=== PATIENT | female | born 1955 | race Caucasian/White ===

== ENCOUNTER 2025-02-17 18:16 | Inpatient (IN) | payer MEDICARE, SELFPAY ==
[2025-02-17 18:17] VITALS: BP 145/69; PULSE 90; RESP 18; TEMP 39.3; O2SAT 100
[2025-02-17 18:31] VITALS: BMI 37.0
--- NOTE | 2025-02-17 18:35 | ED.VIS.FEGU ---
HPI HPI - Female History of Present Illness Chief Complaint: Back Informant: patient and family (Daughter who is a youth development specialist.) Narrative Narrative: 69-year-old female history of dementia and frequent UTIs. At the fever last 2 days with back and flank pain. No nausea or vomiting. No cough. No dysuria but urinary frequency. She has dementia but feet feel that she is more confused. Similar symptoms of prior UTIs. She does have chronic back pain with compression fractures and has had 2 prior back surgeries. She sees pain management. Prior similar symptoms: Yes Recent Illness/Hospitalization: No PFSH PFSH Home Medications ?Medication ?Instructions ?Recorded ?Last Taken ?Type atenolol 25 mg tablet 25 mg PO DAILY 07/07/17 07/17/17 History montelukast 10 mg tablet 10 mg PO DAILY 07/07/17 07/17/17 History atorvastatin 10 mg tablet 10 mg PO DAILY 07/15/17 07/17/17 History gabapentin 300 mg capsule 300 mg PO 4X/DAY 07/15/17 07/17/17 History fluticasone propionate 44 2 puff inhalation BID PRN Allergies 07/17/17 Unknown History mcg/actuation HFA aerosol inhaler (Flovent HFA) donepezil 10 mg tablet 10 mg PO DAILY 02/17/25 Unknown History lisinopril 40 mg tablet 40 mg PO DAILY 02/17/25 Unknown History meloxicam 7.5 mg tablet 7.5 mg PO DAILY 02/17/25 Unknown History Allergy/AdvReac Type Severity Reaction Status Date / Time Penicillins Allergy Anaphylaxis Verified 02/17/25 18:17 Social History Smoking Status: Current some day smoker tobacco type: cigarettes ROS ROS ED ROS Narrative Fever. Flank pain. Confused. Constitutional Constitutional ED: Reports fever(s) Eyes Eyes: Denies blurry vision ENT ENT ED: Denies ear pain Cardiovascular Cardiovascular: Denies chest pain Respiratory/Chest Respiratory/Chest: Denies cough Gastrointestinal Gastrointestinal: Denies abdominal pain, constipation, diarrhea, melena, nausea or vomiting Genitourinary Genitourinary ED: Reports urinary frequency; Denies dysuria or hematuria Musculoskeletal Musculoskeletal: Denies arthralgias or myalgias Integumentary Denies abscess Neurologic Neurologic: Denies headache(s) Psychiatric Psychiatric: Denies anxiety Endocrine Endocrinology: Denies heat intolerance Hematologic/Lymphatic Hematologic/Lymphatic: Denies easy bleeding, easy bruising or lymphadenopathy Allergic/Immunologic Allergic/Immunologic ED: Denies mouth swelling, tongue swelling or urticaria EXAM Physical Exam Narrative Exam Narrative: 69-year-old female sitting upright in bed. Vital signs are stable except temperature 102.8 orally. Pulse ox 100%. No distress. Currently does not look septic. Daughter present in room. H EENT exam pupils round react light. Dry mucous membranes. Neck nontender no JVD. No lymphadenopathy. No meningismus. Lungs clear to auscultation bilaterally. Heart regular rhythm rate about 90 no murmur. Chest wall and ribs nontender. Abdomen soft nontender. No peritoneal signs. Back nontender. No redness or warmth. Moving all 4 extremities. Nontender no edema. Normal strength. Normal range of motion. No hot or swollen joints. Neurologically she is awake. She is answering questions she is following commands. She does have dementia. Const Vital Signs: 02/17/25 18:17 02/17/25 20:00 Temperature 102.8 F H 101.4 F H Temperature Source Oral Oral Pulse Rate 90 80 Respiratory Rate 18 20 H Blood Pressure 145/69 H 160/68 H Blood Pressure Mean 94 98 Pulse Ox 100 100 Oxygen Delivery Method Room Air Room Air Positive well nourished and well developed; Negative for cachectic, contractures or unkempt General Appearance ED: well developed and NAD; Negative for unkempt, cachectic, contractures or pallor Nutritional Appearance: Negative for cachectic HEENT Reports dry mucous membranes Mouth ED: Yes dry mucous membranes Mouth: dry mucous membranes Eyes PERRL and EOMs intact bilaterally Neck no lymphadenopathy, supple and no JVD Chest Wall inspection of chest normal and palpation of chest normal Resp normal respiratory effort and clear to auscultation bilaterally Auscultation: Negative for rales, rhonchi, wheezes or diminished lung sounds Cardio regular rate, regular rhythm, S1 normal heart sound, no murmurs and no JVD GI normal to inspection, nondistended, normoactive bowel sounds, soft to palpation, non-tender, non-distended and no masses Auscultation: normoactive bowel sounds Palpation: Negative for tender or guarding Back/Spine no CVA tenderness Extremity normal to inspection and full ROM General Extremety ED: Negative for edema or tenderness General Extremity: Negative for edema Neuro No oriented x3 and CN's II-XII intact bilaterally Sensorium / Orientation: alert, oriented to person and oriented to place; Negative for oriented to time Motor Exam: strength 5/5 throughout Psych mental status grossly normal Appearance: Negative for unkempt Skin no rashes or lesions noted and no wounds General Skin Exam: Negative for jaundice or pallor Rashes: No rashes noted Trauma: Negative for other MDM MDM MDM Narrative Medical decision making narrative: 69-year-old female with a fever possible UTI versus other etiologies. Screening labs. IV fluids times a liter Tylenol for fever. Repeat exam at 8:25 PM patient doing well. Currently is being catheterized for urine. I explained to her and her daughter about her sodium being low she will be admitted for that. Her fever is gone from 102.8-101.4 after some Tylenol. Awaiting further labs. Repeat exam at 8:58 PM unchanged. Patient will be admitted for acute hyponatremia. Altered level consciousness and fever of uncertain etiology. Hospitalist is on page. Blood cultures have been sent. Patient knows the month and currently that she is in the hospital. I discussed the test results with both her and her daughter. I spoke to the hospitalist who would like a CT abdomen and pelvis and admit he will admit the patient to general medical floor. History & Record Review Discussion w/independent historian: Patient and Family Additional record(s) reviewed:: Prior inpatient record, Prior outpatient record, Prior ED visit and Prior labs Lab Data Attestation: I reviewed the patient's lab results. Lab results narrative: CBC shows white count 12.3. H&H 11.9 and 34. Platelets 162. Electrolytes show sodium 123. Gap 15. BUN and creatinine of 15 and 0.8. Glucose 89. UA shows occult blood. Positive ketones. No nitrates. UA is negative for infection. Lactic acid normal at 1.5 Labs: Laboratory Results - last 24 hr 02/17/25 02/17/25 02/17/25 18:33 20:10 20:23 WBC 12.3 H RBC 3.78 L Hgb 11.9 L Hct 34.4 L MCV 91.0 MCH 31.5 MCHC 34.6 RDW Std Deviation 45.9 H RDW Coeff of Lian 13.8 Plt Count 162 MPV 10.0 Immature Gran % (Auto) 0.600 Neut % (Auto) 84.3 H Lymph % (Auto) 8.4 L [place] % (Auto) 6.4 Eos % (Auto) 0.0 Baso % (Auto) 0.3 Absolute Neuts (auto) 10.4 H Absolute Lymphs (auto) 1.03 Nucleated RBC % 0 Sodium 123 L Potassium 4.5 Chloride 91 L Carbon Dioxide 17.3 L Anion Gap 15 BUN 15 Creatinine 0.86 Estim Creat Clear Calc 69.17 Est GFR (MDRD) Non-Af 73 BUN/Creatinine Ratio 17.3 Glucose 89 Lactic Acid 1.5 Calcium 8.4 Urine Color Yellow Urine Clarity Clear Urine pH 6.5 Ur Specific [place] 1.015 Urine Protein 100 H Urine Glucose (UA) Normal Urine Ketones 50 H Urine Occult Blood 50 H Urine Nitrite Negative Urine Bilirubin Negative Urine Urobilinogen Normal Ur Leukocyte Esterase 25 H Urine RBC 0 SEEN Urine WBC 0-5 SEEN Ur Squamous Epith Cells 0 SEEN Urine Bacteria RARE Urine Mucus 0 SEEN Radiography Chest X-Ray - ED: 2 View, Read by ED Physician, Heart, Lungs, Mediastinum, Bony Structures, No Acute Disease and Chronic Changes Diagnostic Testing: Clinical Impression(s) from Imaging Studies Chest X-Ray 02/17/25 20:35 IMPRESSION: No acute chest findings. Reading Location: [facility] Chest x-ray, 2 views, AP and lateral, interpreted by myself shows no acute abnormality. Normal cardiac silhouette. Normal lung hogan. No filtrates. No effusions. Discharge Plan Dx/Rx/DC Orders Clinical Impression: Acute hyponatremia, Fever, Altered level of consciousness, History of dementia Disposition Disposition: Acute Care [facility]
--- OUTSIDE RECORDS SUMMARY | 2025-02-17 18:55 | XMS RPT_ITS | CCD ---
Author Organization [facility] Care Team Providers Care Sports Manager Name Role Phone Talampas, Cee Unavailable Unavailable White, Nanci Unavailable Unavailable Slade Susan Unavailable Unavailable Paintsil, [place] Unavailable Unavailable Stefano Garcia Unavailable Unavailable Talampas, Cee Unavailable Unavailable Talampas, Cee Unavailable Unavailable Mendoza Kline Unavailable Unavailable Mendoza Kline Unavailable Unavailable Cee Christianson MD Primary Care Provider Cee Christianson MD Primary Care Provider Cee Christianson MD Primary Care Provider Cee Christianson MD Primary Care Provider Sneed JOURNEYMAN ELECTRICIAN PV INSTALLER.OFFENDER EMPLOYMENT SPECIALIST, Zakia Unavailable Sunitha JOURNEYMAN ELECTRICIAN PV INSTALLER.ADJUNCT PROFESSOR, Thuy Unavailable Sunitha JOURNEYMAN ELECTRICIAN PV INSTALLER.ADJUNCT PROFESSOR, Thuy Unavailable Sunitha JOURNEYMAN ELECTRICIAN PV INSTALLER.ADJUNCT PROFESSOR, Thuy Unavailable RUMA WESTFALL Referring Unavailable TALAMPAS, CEE D Primary Care Unavailable Sunitha JOURNEYMAN ELECTRICIAN PV INSTALLER.ADJUNCT PROFESSOR, Thuy Unavailable TALAMPAS, CEE D Referring Unavailable TALAMPAS, CEE D Primary Care Unavailable Talampas, Cee D Primary Care Provider Sneed JOURNEYMAN ELECTRICIAN PV INSTALLER.OFFENDER EMPLOYMENT SPECIALIST, Zakia Unavailable Sneed JOURNEYMAN ELECTRICIAN PV INSTALLER.OFFENDER EMPLOYMENT SPECIALIST, Zakia Unavailable PRINCE LORENZO Attending Unavailable TALAMPAS, CEE, Primary Care Unavailable TALAMPAS, CEE D Referring Unavailable TALAMPAS, CEE D Primary Care Unavailable TALAMPAS, CEE D Primary Care Unavailable TALAMPAS, CEE D Attending Unavailable TALAMPAS, CEE D Primary Care Unavailable TALAMPAS, CEE D Referring Unavailable TALAMPAS, CEE D Primary Care Unavailable GANTA, RUMA Referring Unavailable TALAMPAS, CEE D Primary Care Unavailable SMITH CARO Attending Unavailable TALAMPAS, CEE D Primary Care Unavailable GANTA, RUMA Referring Unavailable SMITH CARO Attending Unavailable TALAMPAS, CEE D Primary Care Unavailable GANTA, RUMA Referring Unavailable SMITH CARO Attending Unavailable TALAMPAS, CEE D Primary Care Unavailable GANTA, RUMA Referring Unavailable SMIHT CARO Attending Unavailable TALAMPAS, CEE D Primary Care Unavailable GORDOSMITH Attending Unavailable GANTA, RUMA Referring Unavailable GANTA, RUMA Referring Unavailable TALAMPAS, CEE D Primary Care Unavailable DANNY TUCKER Attending Unavailable TALAMPAS, CEE D Primary Care Unavailable GANTA, RUMA Referring Unavailable GANTA, RUMA Referring Unavailable DANNY TUCKER Attending Unavailable TALAMPAS, CEE D Primary Care Unavailable JEAN KIM Referring Unavailable TALAMPAS, CEE D Primary Care Unavailable TALAMPAS, CEE D Primary Care Unavailable TALAMPAS, CEE D Referring Unavailable GANTA, RUMA Attending Unavailable TALAMPAS, CEE D Primary Care Unavailable GANTA, RUMA Referring Unavailable TALAMPAS, CEE D Primary Care Unavailable GANTA, RUMA Attending Unavailable SELF Referring Unavailable TALAMPAS, CEE D Primary Care Unavailable MONTY NATE Attending Unavailable TALAMPAS, CEE D Primary Care Unavailable BLANTON, NATE Referring Unavailable TALAMPAS, CEE D Primary Care Unavailable TALAMPAS, CEE D Attending Unavailable TALAMPAS, CEE D Primary Care Unavailable TALAMPAS, CEE D Referring Unavailable MATIAS ZAPATA Attending Unavailable TALAMPAS, CEE D Primary Care Unavailable THUY STEWART Referring Unavailable Allergies Allergy Classification Reported Allergen(s) Allergy Type Date of Onset Reaction(s) Facility Cephalosporins (antibiotic) (2 sources) Cephalosporins (Antibiotic) Drug Allergy 02-28-[address] [facility] Doxycycline (2 sources) Doxycycline Drug Allergy 02-28-20 19 Other: See Comments [facility] Work Phone: guaiFENesin / Pseudoephedrine (2 sources) guaiFENesin / Pseudoephedrine Drug Allergy 04-17-[address] [facility] Work Phone: [phone] NSAIDs (2 sources) nabumetone Drug Allergy 04-17-[address] [facility] Penicillins (antibiotic) (2 sources) Penicillins Drug Allergy 04-17-20 05 Anaphylaxis, Shortness of Breath [facility] Work Phone: [phone] Quinolones (antibiotic) (2 sources) levoFLOXacin Drug Allergy 04-17-20 05 Other: See Comments [facility] Work Phone: (12 sources) Penicillins; Translations: [PENICILLINS] Drug allergy (disorder) 04-17-20 05 Anaphylaxis, Shortness of Breath [facility] (20 sources) Cephalosporins (Antibiotic); Translations: [CEPHALOSPORINS] Drug Allergy 02-28-[address] [facility] (20 sources) Doxycycline; Translations: [DOXYCYCLINE] Drug Allergy 02-28-20 19 Other: See Comments, Other [facility] Work Phone: (20 sources) guaiFENesin / Pseudoephedrine; Translations: [PSEUDOEPHEDRINE-G UAIFENESIN] Drug Allergy 04-17-20 05 Intolerance, Other [facility] Work Phone: [phone] (20 sources) levoFLOXacin; Translations: [LEVOFLOXACIN] Drug Allergy 04-17-20 05 Other: See Comments [facility] Work Phone: (20 sources) nabumetone; Translations: [NABUMETONE] Drug Allergy 04-17-[address] [facility] Work Phone: [phone] (4 sources) Penicillins Propensity to adverse reactions 04-17-20 05 Anaphylaxis, Shortness of Breath [facility] Work Phone: [phone] (20 sources) Cephalosporins (Antibiotic) Drug Allergy 02-28-[address] [facility] (20 sources) Penicillins Propensity to adverse reactions 04-17-20 05 Anaphylaxis, Shortness of Breath [facility] Work Phone: [phone] (15 sources) Penicillins Propensity to adverse reactions 04-17-20 05 Anaphylaxis, Shortness of Breath [facility] Work Phone: [phone] (4 sources) nabumetone Drug Allergy 04-17-20 05 Swelling [facility] (4 sources) Penicillins Drug Allergy 04-17-20 05 Anaphylaxis, Shortness of breath [facility] Medications Current Medications Medication Drug Class(es) Dates Sig (Normalized) Sig (Original) [id number] 200 actuat albuterol 0.09 mg/actuat metered dose inhaler (20 sources) beta2-Adrenergic Agonist Start: 12-11-2020 End: 12-19-2021 take 2 puff(s) by inhalation every four hours as needed for wheezing albuterol HFA (PROVENTIL HFA) 90 mcg/actuation inhaler Indications: Moderate persistent asthma without complication (HCC) Inhale 2 Puffs as instructed every 4 hours as needed for wheezing/shortness of breath. 3 Each 2 12/19/2021 Active Comment on above: Inhale 2 Puffs as in structed every 4 hours as needed for Wheezing/Shortness of Breath. aspirin 81 mg chewable tablet (20 sources) Platelet Aggregation Inhibitor, Nonsteroidal Anti-inflammatory Drug take 1 tablet by mouth once daily aspirin 81 mg chewable tablet Take 81 mg by mouth once daily. Active atenolol 25 mg oral tablet (20 sources) beta-Adrenergic Theodora Start: 01-01-2021 End: 03-29-2024 take 1 tablet by mouth once daily atenolol (TENORMIN) 25 mg tablet Indications: Essential hypertension Take 1 tablet by mouth once daily. 90 tablet 3 03/29/2024 Active Comment on above: Take 1 tablet by anali th once daily. atorvastatin 10 mg oral tablet (20 sources) HMG-CoA Reductase Inhibitor Start: 01-01-2021 End: 02-21-2024 take 1 tablet by mouth once daily at bedtime atorvastatin (LIPITOR) 10 mg tablet Take 1 tablet by mouth daily at bedtime. 90 tablet 3 02/21/2024 Active Comment on above: Take 1 tablet by anali th daily at bedtime. Calcium Carbonate / vitamin D3 (20 sources) calcium carbonate/vitamin D3 (CALCIUM WITH VITAMIN D ORAL) Take by mouth. 1200 with 1000 of D Active calcium carbonat e/vitamin D3 (CALCIUM WITH VITAMIN D ORAL) Take by mouth. 1200 with 1000 of D 0 Active cetirizine hydrochloride 10 mg chewable tablet (20 sources) Histamine-1 Receptor Antagonist End: 12-14-2023 cetirizine (ZyrTEC) 10 MG chewable tablet Chew 10 mg daily. Active Comment on above: Take 10 mg by mouth once daily. ejyazlgp-autiyj-gdqkiedx acid (COLLAGEN 1500 PLUS C) 500 mg-800 mcg- 50 mg cap (20 sources) Start: 02-21-2024 collagen-bioti n-asco rbic acid (COLLAGEN 1500 PLUS C) 500 mg-800 mcg- 50 mg cap Take by mouth. 02/21/2024 Active Start: 02-21-2024 collagen-bioti n-ascorbic acid (COLLAGEN 1500 PLUS C) 500 mg- 800 mcg- 50 mg cap Take by mouth. 0 02/21/2024 Active GVVALPLW-[id number]-REN C ORAL (20 sources) COLLAGEN-GLYCOSA MINOGLY-VIT C ORAL Take by mouth once daily. Active Collagen-Vitamin C-Biotin (Collagen 1500/C) 500-50-0.8 MG capsule (4 sources) Sta rt: Collagen-Vitamin C-Biotin (Collagen 1500/C) 500-50-0.8 MG capsule Take by mouth. 02/21/2024 Active cyclobenzaprine hydrochlorid e 5 mg oral tablet (20 sources) Muscle Relaxant Sta rt: 1 End : 5 take 5-10 mg by mouth every eight hours as needed cyclobenzaprine (FLEXERIL) 5 mg tablet Take 1-2 tablets by mouth three times a day as needed (cramping and muscle spasm). 180 tablet 1 11/10/2024 Active Comment on above: Take 1 tablet by [facility] three times daily as needed (cramping and muscle spasm). Take 1-2 tablets by mouth three times daily as needed (cramping and muscle spasm). Take 1-2 tablets by mouth three times a day as needed (cramping and muscle spasm). D3/red wine/resveratrol/malt (SUPER-D3+ ORAL) (20 sources) take 1 dose by mouth once daily D3/red wine/resveratrol/malt (SUPER-D3+ ORAL) Take 1 Each by mouth once daily. Active take 1 dose by mouth once daily D3/red wine/resveratrol/malt (SUPER-D3+ ORAL) Take 1 Each by mouth once daily. 0 Active donepezil hydrochloride 10 mg oral tablet (20 sources) Start: 11-29-2024 End: 05-28-2025 take 1 tablet by mouth once daily after breakfast donepezil (ARICEPT) 10 mg tablet Take 1 tablet by mouth daily after breakfast. 90 tablet 1 11/29/2024 05/28/2025 Active Start: 10-05-2024 End: 11-29-2024 take 1 tablet by mouth once daily after breakfast donepezil (ARICEPT) 5 mg tablet Take 1 tablet by mouth daily after breakfast. 30 tablet 1 10/05/2024 11/29/2024 Discontinued Fish Oils (4 sources) take 1 capsule by mouth once daily at breakfast omega-3 (fish oil) 1200 MG capsule Take 1 capsule by mouth daily (with breakfast). Active fluticasone propionate 0.05 mg/actuat metered dose nasal spray (20 sources) Corticosteroid Start: 12-31-19 End: 12-20-19 22 take 2 spray(s) by mouth once daily fluticasone (FLONASE) 50 mcg/actuation nasal spray SPRAY 2 SPRAYS INTO EACH NOSTRIL ONCE DAILY - RINSE MOUTH AFTER USE 3 Each 3 12/19/2021 Active Comment on above: SPRAY 2 SPRAYS INTO EACH NOSTRIL ONCE DAILY - RINSE MOUTH AFTER USE fluticasone / salmeterol (20 sources) Corticosteroid, beta2-Adrenergic Agonist Start: 12-20-19 take 1 puff(s) by inhalation twice daily fluticasone-salmet janelle (ADVAIR DISKUS) 250-50 mcg/dose inhaler Inhale 1 Puff as instructed twice daily. 3 Each 3 12/19/2021 Active Start: 12-19-2021 take 1 puff(s) by in halation twice daily fluticasone-salmeterol (ADVAIR DISKUS) 250-50 mcg/dose inhaler Inhale 1 Puff as instructed twice daily. 3 Each 3 12/19/2021 Active Start: 12-30-2020 End: 12-19-2021 take 1 puff(s) by inhalation twice daily fluticasone-salmeterol (ADVAIR DISKUS) 250-50 mcg/dose Inhale 1 Puff as instructed twice daily. 3 Each 3 12/30/2020 12/19/2021 Discontinued Start: 12-30-2020 take 1 puff(s) by in halation twice daily fluticasone-salmeterol (ADVAIR DISKUS) 250-50 mcg/dose Inhale 1 Puff as instructed twice daily. 3 Each 3 12/30/2020 Active Comment on above: Inhale 1 Puff as ins tructed twice daily. gabapentin 400 mg oral capsule (20 sources) Anti-epileptic Agent Start: 03-29-2024 End: 09-25-2024 take 1 capsule by mouth three times daily gabapentin (NEURONTIN) 400 mg capsule Take 1 capsule by mouth three times a day for 180 days. 270 capsule 1 03/29/2024 Active Start: 05-26-2021 End: 12-14-2023 take 1 capsule by mouth three times daily gabapentin (NEURONTIN) 400 mg capsule Take 1 capsule by mouth three times daily for 180 days. 270 capsule 3 06/23/2022 12/14/2023 Discontinued Comment on above: Take 1 capsule by [facility] three times daily for 180 days. glucosamine/chondroitin/C/Ma ng (GLUCOSAMINE-CHONDROITIN COMPLX ORAL) (20 sources) glucosamine/kofi droitin/C/ Juice (GLUCOSAMINE-CHONDROITIN COMPLX ORAL) Take by mouth once daily. Active glucosamine/kofi droitin/C/Juice (GLUCOSAMINE-CHONDROITIN COMPLX ORAL) Take by mouth. Active glucosamine/kofi droitin/C/Juice (GLUCOSAMINE-CHONDROITIN COMPLX ORAL) Take by mouth. 0 Active lisinopril 40 mg oral tablet (20 sources) Angiotensin Converting Enzyme Inhibitor Start: 12-18-2022 End: 10-16-2024 take 1 tablet by mouth once daily, then take 1 tablet by mouth once daily lisinopril (ZESTRIL) 40 mg tablet Indications: Primary hypertension Take 1 tablet by mouth once daily. DOSE CHANGE - TAKE ONE DAILY 90 tablet 2 10/17/2024 Active Start: 07-28-2022 End: 12-18-2022 take 1 tablet by mouth once daily, then take 1 tablet by mouth once daily lisinopril (ZESTRIL,PRINIVIL) 30 mg tablet Take 1 tablet by mouth once daily. DOSE CHANGE - TAKE ONE DAILY 90 tablet 3 07/28/2022 12/18/2022 Discontinued Start: 01-01-2021 End: 07-28-2022 take 1 tablet by mouth once daily lisinopril (PRINIVIL) 10 mg tablet Take 1 tablet by mouth once daily. 90 tablet 3 12/19/2021 07/28/2022 Discontinued Start: 01-01-2021 End: 07-28-2022 take 1 tablet by mouth once daily lisinopril (ZESTRIL, PRINIVIL) 20 mg tablet Take 1 tablet by mouth once daily. Resume pill in addition to 10 mg dose for total 30 mg daily 90 tablet 3 12/19/2021 07/28/2022 Discontinued Comment on above: Take 1 tablet by anali th once daily. Take 1 tablet by anali th once daily. Resume pill in addition to 10 mg dose for total 30 mg daily Take 1 tablet by anali th once daily. DOSE CHANGE - TAKE ONE DAILY magnesium oxide 400 mg oral tablet (20 sources) take 2 tablets by mouth once daily magnesium oxide 400 mg magnesium tab Take 2 each by mouth once daily. 1000 mg daily Active take 1 tablet by mouth once jose g y magnesium oxide 400 mg magnesium tab Take 1 Each by mouth once daily. 1000 mg daily Active methylPREDNISolone (2 sources) Corticosteroid Start: 09-11-2024 End: 09-17-2024 methylPREDNISolone (MEDROL, ALONDRA,) 4 mg Dose-Pack Follow dosing instructions, take with food. 21 tablet 09/11/2024 09/17/2024 Active montelukast 10 mg oral tablet (20 sources) Leukotriene Receptor Antagonist Start: 01-01-2021 End: 02-21-2024 take 1 tablet by mouth once daily at bedtime montelukast (SINGULAIR) 10 mg tablet Indications: Allergic rhinitis, unspecified seasonality, unspecified trigger Take 1 tablet by mouth daily at bedtime. 90 tablet 3 02/21/2024 Active Comment on above: Take 1 tablet by anali th daily at bedtime. niacin 500 mg oral tablet (20 sources) Nicotinic Acid take 1 tablet by mouth once daily at breakfast niacin (NIACIN) 500 mg tablet Take 500 mg by mouth daily with breakfast. Active omega-3 DHA-EPA (FISH OIL) 1,200 (144-216) mg capsule (20 sources) take 1 capsule by mouth once daily at breakfast omega-3 DHA-EPA (FISH OIL) 1,200 (144-216) mg capsule Take 1 capsule by mouth daily with breakfast. Active take 1 capsule by mo [facility] once daily at breakfast omega-3 DHA-EPA (FISH OIL) 1,200 (144-21 6) mg capsule Take 1 capsule by mouth daily with breakfast. 0 Active OTC NUTRITIONAL SUPPLEMENT (20 sources) OTC NUTRITIONAL SUPPLEMENT Take by mouth once daily. Prevagen Active OTC NUTRITIONAL SUPPLEMENT Prevagen Active OTC NUTRITIONAL SUPPLEMENT Prevagen 0 Active polyethylene glycol 3350 339809 mg / potassium chloride 2970 mg / sodium bicarbonate 6740 mg / sodium chloride 5860 mg / sodium sulfate 83092 mg powder for oral solution (1 source) Osmotic Laxative Start: 04-21-2024 End: 04-21-2024 peg 3350-Electrolytes (GOLYTELY) 236-22.74-6.74 -5.86 gram suspension Take 4,000 mL by mouth one time only for 1 dose. As instructed 1 Each 04/21/2024 04/21/2024 Active potassium 99 mg extended release oral tablet (20 sources) take 99 mg by mouth once daily POTASSIUM ORAL Take 99 mg by mouth once daily. Active ubidecarenone 10 mg oral capsule (20 sources) Start: 02-21-2024 ubidecarenone Q-10 (CO Q-10) 10 mg cap Take by mouth two times a day. 02/21/2024 Active End: 12-14-2023 coenzyme Q10 (COENZYME Q-10) 100 mg cap capsule Take 100 mg by mouth once daily. 0 12/14/2023 Discontinued Comment on above: Take 100 mg by mouth once daily. Vitamin B Complex (20 sources) take 1 tablet by mouth once daily vitamin B complex (SUPER B COMPLEX ORAL) Take 1 tablet by mouth once daily. Active take 1 tablet by mouth once jose g y vitamin B complex (SUPER B COMPLEX ORAL) Take 1 tablet by mouth once daily. 0 Active Comment on above: Take 1 tablet by anali th once daily. VITAMIN E ORAL (20 sources) take 1 capsule by mouth once daily VITAMIN E ORAL Take 1 capsule by mouth once daily. Active take 1 capsule by mouth once talib ly VITAMIN E ORAL Take 1 capsule by mouth once daily. 0 Active Comment on above: Take 1 capsule by mo [facility] once daily. Completed/Discontinued Medications Medication Drug Class(es) Dates Sig (Normalized) Sig (Original) Acetaminophen / diphenhydrAMINE (20 sources) Histamine-1 Receptor Antagonist End: 09-21-2024 acetaminophen/diph enhydramine (PM PAIN RELIEF ORAL) Take by mouth. 09/21/2024 Discontinued acetaminophen/di phenhydramine (PM PAIN RELIEF ORAL) Take by mouth. Active acetaminophen/di phenhydramine (PM PAIN RELIEF ORAL) Take by mouth. 0 Active ascorbic acid 500 mg oral tablet (20 sources) Vitamin C End: 09-21-2024 take 1 tablet by mouth once daily ascorbic acid, vitamin C, (VITAMIN C) 500 mg tablet Take 500 mg by mouth once daily. 09/21/2024 Discontinued Comment on above: Take 500 mg by mouth once daily. benzonatate 100 mg oral capsule (3 sources) Non-narcotic Antitussive Start: 07-29-2022 End: 12-18-2022 take 2 capsules by mouth three times daily as needed for cough benzonatate (TESSALON PERLE) 100 mg capsule Indications: Bronchitis Take 2 capsules by mouth three times daily as needed for cough. 60 capsule 0 07/29/2022 12/18/2022 Discontinued Comment on above: Take 2 capsules by out three times daily as needed for cough. calcium chloride 0.0014 meq/ml / potassium chloride 0.004 meq/ml / sodium chloride 0.103 meq/ml / sodium lactate 0.028 meq/ml injectable solution (1 source) Start: 05-24-2024 End: 05-24-2024 take 30 mL intravenously every hour 30 mL/hr, INTRAVENOUS, CONTINUOUS, Starting on Wed05/24/24 at 0930, Until Wed05/24/24 at 1106, Preprocedure CALCIUM-MAGNESIUM -ZINC ORAL (14 sources) End: 12-14-2023 take 1 tablet by mouth once daily CALCIUM-MAGNESIUM -ZINC ORAL Take 1 tablet by mouth once daily. 0 12/14/2023 Discontinued take 1 tablet by mouth once jose g y [id number] ORAL Take 1 tablet by mouth once daily. 0 Active Comment on above: Take 1 tablet by [facility] once daily. cholecalciferol 0.01 mg oral capsule (14 sources) Vitamin D End: take 1 capsule by mouth once daily cholecalciferol, vitamin D3, 10 mcg (400 unit) cap Take 400 Units by mouth once daily. 0 12/14/2023 Discontinued Comment on above: Take 400 Units by [facility] once daily. collagen/biotin/ascorbic acid (COLLAGEN 1500 PLUS C ORAL) (14 sources) End: 4 collagen/biotin/asco rbic acid (COLLAGEN 1500 PLUS C ORAL) Take 1 capsule by mouth once daily. 0 12/14/2023 Discontinued collagen/biotin/ ascorbic acid (COLLAGEN 1500 PLUS C ORAL) Take 1 capsule by mouth once daily. 0 Active Comment on above: Take 1 capsule by [facility] once daily. 1 ml fentaNYL 0.05 mg/ml injection (1 source) Opioid Agonist Start: 05-24-2024 End: 05-24-2024 25-100 mcg, INTRAVENOUS, DIRECTED, Starting on Wed05/24/24 at 1100, Until Wed05/24/24 at 1459, DOSING DIRECTED BY PHYSICIAN FOR PROCEDURAL SEDATION ONLY, Intraprocedure ferrous sulfate 325 mg oral tablet (20 sources) End: 02-21-2024 take 1 tablet by mouth once daily ferrous sulfate 325 mg (65 mg iron) tablet Take 325 mg by mouth once daily. 0 02/21/2024 Discontinued Comment on above: Take 325 mg by mouth once daily. fish oil/borage/flax/om3 ,6,9 1 (OMEGA 3-6-9 ORAL) (14 sources) End: 12-14-2023 fish oil/borage/flax/om3,6,9 1 (OMEGA 3-6-9 ORAL) Take 1 capsule by mouth once daily. 0 12/14/2023 Discontinued fish oil/borage/ flax/om3,6,9 1 (OMEGA 3-6-9 ORAL) Take 1 capsule by mouth once daily. 0 Active Comment on above: Take 1 capsule by [facility] once daily. 12 hr guaiFENesin 1200 mg extended release oral tablet (3 sources) Start: 2 End: 3 take 1 tablet by mouth twice daily guaiFENesin (MUCINEX) 1,200 mg Ta12 Indications: Bronchitis Take 1 tablet by mouth twice daily. 42 tablet 0 07/29/2022 12/18/2022 Discontinued Comment on above: Take 1 tablet by [facility] twice daily. 10 ml lidocaine hydrochloride 10 mg/ml injection (2 sources) Antiarrhythmic, Amide Local Anesthetic Start: 4 End: 4 lidocaine (PF) 10 mg/mL (1 %) 3 mL injection (XYLOCAINE) Magnesium (14 sources) End: 4 take 2 tablets by mouth once daily Magnesium 250 mg tab Take 500 mg by mouth once daily. 0 12/14/2023 Discontinued take 2 tablets by mouth once talib ly Magnesium 250 mg tab Take 500 mg by mouth once daily. 0 Active take 1 tablet by mouth once jose g y Magnesium 250 mg tab Take 250 mg by mouth once daily. 0 Active Comment on above: Take 250 mg by mouth once daily. Take 500 mg by mouth once daily. 5 ml midazolam 1 mg/ml injection (1 source) Benzodiazepine Start: End: 1-5 mg, INTRAVENOUS, DIRECTED, Starting on Wed05/24/24 at 1100, Until Wed05/24/24 at 1459, DOSING DIRECTED BY PHYSICIAN FOR PROCEDURAL SEDATION ONLY, Intraprocedure naproxen sodium 220 mg oral tablet (20 sources) Nonsteroidal Anti-inflammatory Drug End: take 1 tablet by mouth once daily as needed naproxen sodium (ANAPROX) 220 mg tablet Take 220 mg by mouth once daily as needed. 09/21/2024 Discontinued nitrofurantoin, macrocrystals 25 mg / nitrofurantoin, monohydrate 75 mg oral capsule (4 sources) Nitrofuran Antibacterial Start: End: take 1 capsule by mouth twice daily nitrofurantoin monohydrate and macrocrystal (MACROBID) 100 mg capsule Indications: Urinary tract infection without hematuria, site unspecified Take 1 capsule by mouth two times a day for 5 days. 10 capsule 09/21/2024 09/26/2024 Start: 09-13-2024 End: 09-18-2024 take 1 capsule by mouth twice daily nitrofurantoin monohydrate and macrocrystal (MACROBID) 100 mg capsule Take 1 capsule by mouth two times a day for 5 days. 10 capsule 09/13/2024 09/18/2024 Active olopatadine 1 mg/ml ophthalmic solution (12 sources) Histamine-1 Receptor Inhibitor Start: 05-26-2021 End: 12-18-2022 take 1 drop(s) into the eye(s) twice daily as needed olopatadine (PATANOL) 0.1 % ophthalmic solution Indications: Allergic symptoms, subsequent encounter , Allergic conjunctivitis of both eyes and rhinitis Use 1 Drop in both eyes twice daily as needed for cold/allergy symptoms (for red itchy or watery eyes). 15 mL 3 12/19/2021 12/18/2022 Discontinued Comment on above: Use 1 Drop in both e yes twice daily as needed for cold/allergy symptoms (for red itchy or watery eyes). POTASSIUM-99 ORAL (14 sources) End: 12-14-2023 take 1 tablet by mouth once daily POTASSIUM-99 ORAL Take 1 tablet by mouth once daily. 0 12/14/2023 Discontinued take 1 tablet by mouth once jose g y POTASSIUM-99 ORAL Take 1 tablet by mouth once daily. 0 Active Comment on above: Take 1 tablet by anali th once daily. 1 ml triamcinolone acetonide 40 mg/ml injection (2 sources) Corticosteroid Start: 12-17-19 End: 12-17-19 triamcinolone acetonide 80 mg injection (KeNALog 40) [id number] EG-CAPRYL ORAL (14 sources) End: 12-14-19 take 1 tablet by mouth once daily [id number]-[id number] REG-CAPRYL ORAL Take 1 tablet by mouth once daily. 0 12/14/2023 Discontinued take 1 tablet by anali th once daily GULAAIM-ASNR-TFQZD-OREG-CAPRYL ORAL Take 1 tablet by mouth once daily. 0 Active Comment on above: Take 1 tablet by anali th once daily. vitamin b12 0.5 mg oral tablet (14 sources) Vitamin B12 End: 12-14-2023 take 1 tablet by mouth once daily cyanocobalamin (VITAMIN B-12) 500 mcg tablet Take 1 tablet by mouth once daily. 0 12/14/2023 Discontinued Comment on above: Take 1 tablet by anali th once daily. Problems Active Problems Problem Classification Problem Date Documented Date Episodic/Chronic Anxiety disorders (20 sources) Anxiety state; Translations: [Generalized anxiety disorder] Onset: 04-18-2005 04-18-2005 Chronic Asthma (20 sources) Asthma; Translations: [Unspecified asthma, uncomplicated] Onset: 06-14-2006 11-16-2018 Chronic Delirium, dementia, and amnestic and other cognitive disorders (3 sources) Alzheimer's disease; Translations: [Alzheimer's disease, unspecified] Onset: 11-29-2024 11-29-2024 Chronic Disorders of lipid metabolism (20 sources) Hypercholesterolemia; Translations: [Pure hypercholesterolemia, unspecified] Onset: 06-19-2014 06-19-2014 Chronic Esophageal disorders (20 sources) Gastroesophageal reflux disease; Translations: [Gastro-esophageal reflux disease without esophagitis] 07-16-2005 Chronic Essential hypertension (20 sources) Essential hypertension; Translations: [Essential (primary) hypertension] Onset: 04-17-2005 06-24-2015 Chronic Genitourinary symptoms and ill-defined conditions (1 source) Increased frequency of urination; Translations: [Frequency of micturition] 09-11-2024 Episodic Immunizations and screening for infectious disease (2 sources) Requires varicella vaccination; Translations: [Encounter for immunization] Episodic Inflammation; infection of eye (except that caused by tuberculosis or sexually transmitteddisease) (1 source) Allergic conjunctivitis; Translations: [Acute atopic conjunctivitis, bilateral] Episodic Intracranial injury (2 sources) History of traumatic brain injury; Translations: [Personal history of traumatic brain injury] Onset: 11-29-2024 11-29-2024 Episodic Meningitis (except that caused by tuberculosis or sexually transmitted disease) (10 sources) Arachnoiditis; Translations: [Meningitis, unspecified] Onset: 01-02-2025 01-02-2025 Episodic Nutritional deficiencies (1 source) Vitamin D deficiency; Translations: [Vitamin D deficiency, unspecified] 09-25-2024 Chronic Osteoarthritis (20 sources) Degenerative joint disease involving multiple joints; Translations: [Polyosteoarthritis, unspecified] 07-16-2005 Chronic Other aftercare (1 source) Long-term current use of drug therapy; Translations: [Other group home (current) drug therapy] 09-25-2024 Episodic Other connective tissue disease (1 source) History of lumbar fusion; Translations: [Arthrodesis status] Episodic Other connective tissue disease (1 source) Pes anserinus bursitis of left knee; Translations: [Other bursitis of knee, left knee] 02-19-2023 Episodic Other fractures (4 sources) Closed fracture thoracic vertebra, wedge; Translations: [Wedge compression fracture of T11-T12 vertebra, initial encounter for closed fracture] 01-02-2025 Episodic Other fractures (2 sources) Wedge compression fracture of T11-T12 vertebra, initial encounter for closed fracture; Translations: [Wedge compression fracture of T11-T12 vertebra, initial encounter for closed fracture (HCC)] Onset: 01-02-2025 Episodic Other hereditary and degenerative nervous system conditions (2 sources) Impaired cognition; Translations: [Mild cognitive impairment, so stated] 10-05-2024 Chronic Other hereditary and degenerative nervous system conditions (1 source) Mild cognitive impairment, so stated; Translations: [Cognitive impairment, mild, so stated] Onset: 11-07-2024 Chronic Other injuries and conditions due to external causes (1 source) Allergic condition; Translations: [Allergy, unspecified, subsequent encounter] Episodic Other nervous system disorders (20 sources) Carpal tunnel syndrome; Translations: [Carpal tunnel syndrome, unspecified upper limb] 07-16-2005 Chronic Other nervous system disorders (1 source) Other chronic pain; Translations: [Chronic midline low back pain without sciatica] Onset: 12-30-2024 Chronic Other nervous system disorders (20 sources) Abnormal gait; Translations: [Unsteadiness on feet] Onset: 11-01-2024 10-05-2024 Episodic Other nervous system disorders (2 sources) Impaired cognition 10-05-2024 Episodic Other nervous system disorders (1 source) Impairment of balance; Translations: [Other abnormalities of gait and mobility] 10-05-2024 Episodic Other non-traumatic joint disorders (5 sources) Pain in left knee; Translations: [Pain in joint, lower leg] 10-15-2023 Episodic Other nutritional; endocrine; and metabolic disorders (20 sources) Metabolic syndrome X; Translations: [Metabolic syndrome] Onset: 07-31-2011 07-31-2011 Chronic Other nutritional; endocrine; and metabolic disorders (20 sources) Obese class II; Translations: [Obesity, unspecified] Onset: 12-18-2022 Chronic Other nutritional; endocrine; and metabolic disorders (20 sources) Obesity caused by energy imbalance; Translations: [Other obesity due to excess calories] Onset: 02-21-2024 10-15-2023 Chronic Other upper respiratory disease (20 sources) Allergic rhinitis; Translations: [Allergic rhinitis, unspecified] Onset: 02-19-2023 Chronic Residual codes; unclassified (3 sources) Menopause present; Translations: [Asymptomatic menopausal state] Episodic Residual codes; unclassified (3 sources) Memory impairment; Translations: [Other amnesia] 10-05-2024 Episodic Residual codes; unclassified (4 sources) History of operative procedure on lumbar spinal structure; Translations: [Other specified postprocedural states] 12-29-2024 Episodic Residual codes; unclassified (1 source) Other specified postprocedural states; Translations: [S/P lumbar spine operation] Onset: 12-30-2024 Episodic Spondylosis; intervertebral disc disorders; other back problems (20 sources) Degeneration of lumbar intervertebral disc; Translations: [Other intervertebral disc degeneration, lumbar region] 06-24-2015 Chronic Sprains and strains (1 source) Sprain of medial collateral ligament of left knee, initial encounter; Translations: [Sprain of medial collateral ligament of knee] 02-19-2023 Episodic Substance-related disorders (20 sources) Cigarette smoker ; Translations: [Nicotine dependence, cigarettes, uncomplicated] Onset: 11-16-2018 11-16-2018 Chronic Unclassified (1 source) Intestinal adhesions [bands], unspecified as to partial versus complete obstruction; Translations: [K56.50 - Intestinal adhesions [bands], unspecified as to partial versus complete obstruction] Onset: 10-06-2017 Unclassified (1 source) Degeneration of intervertebral disc of lumbar region with discogenic back pain; Translations: [Degeneration of intervertebral disc of lumbar region with discogenic back pain] Onset: 06-24-2015 Unclassified (1 source) Chronic midline low back pain without sciatica; Translations: [Chronic midline low back pain without sciatica] Onset: 12-30-2024 Unclassified (1 source) Acute midline low back pain without sciatica; Translations: [Acute midline low back pain without sciatica] Onset: 12-30-2024 Unclassified (1 source) PT Eval Onset: 01-04-2025 Unclassified (1 source) Right-sided low back pain without sciatica, unspecified chronicity; Translations: [Right-sided low back pain without sciatica, unspecified chronicity] Onset: 09-22-2024 Past or Other Problems Problem Classification Problem Date Documented Da te Episodic/Chronic Complications of surgical procedures or medical care (1 source) Infection following a procedure, initial encounter; Translations: [T81.4XXA - Infection following a procedure, initial encounter] Onset: 10-06-2017 Episodic Deficiency and other anemia (20 sources) Macrocytic anemia; Translations: [Nutritional anemia, unspecified] Onset: 02-19-2023 02-19-2023 Episodic Intestinal obstruction without hernia (20 sources) Small bowel obstruction; Translations: [Unspecified intestinal obstruction, unspecified as to partial versus complete obstruction] Onset: 07-30-2017 07-30-2017 Episodic Lymphadenitis (20 sources) Lymphadenopathy; Translations: [Enlarged lymph nodes, unspecified] Onset: 05-31-2006 05-31-2006 Episodic Mood disorders (20 sources) Depressive disorder; Translations: [Other specified depressive episodes] Onset: 04-17-2005 Resolved: 01-26-2021 01-26-2021 Chronic Mycoses (20 sources) Candidal intertrigo; Translations: [Candidiasis of skin and nail] Onset: 02-19-2012 02-19-2012 Episodic Other aftercare (1 source) 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; Translations: [Encounter for long-term current use of medication] Onset: 09-08-2024 Episodic Other aftercare (1 source) Encounter for therapeutic drug level monitoring; Translations: [Encounter for therapeutic drug monitoring] Onset: 02-18-2024 Episodic Other bone disease and musculoskeletal deformities (20 sources) Osteopenia; Translations: [Other specified disorders of bone density and structure, right thigh] Onset: 02-19-2023 02-19-2023 Episodic Other bone disease and musculoskeletal deformities (1 source) Other specified disorders of bone density and structure, right thigh; Translations: [Osteopenia of both hips] Onset: 02-19-2023 Episodic Other bone disease and musculoskeletal deformities (1 source) Other specified disorders of bone density and structure, left thigh; Translations: [Osteopenia of both hips] Onset: 02-19-2023 Episodic Other connective tissue disease (1 source) Other specified soft tissue disorders; Translations: [M79.89 - Other specified soft tissue disorders] Onset: 10-06-2017 Episodic Other inflammatory condition of skin (11 sources) Itching of skin; Translations: [Pruritus, unspecified] Onset: 02-19-2012 02-19-2012 Episodic Other inflammatory condition of skin (20 sources) Pruritus, unspecified; Translations: [Unspecified pruritic disorder] Onset: 02-19-2012 02-19-2012 Episodic Other nervous system disorders (1 source) Unsteadiness on feet; Translations: [Gait instability] Onset: 11-01-2024 Episodic Other screening for suspected conditions (not mental disorders or infectious disease) (20 sources) Patient encounter status; Translations: [Encounter for screening mammogram for malignant neoplasm of breast] Onset: 02-21-2024 Episodic Residual codes; unclassified (20 sources) History of excision of small intestine; Translations: [Acquired absence of other specified parts of digestive tract] Onset: 07-30-2017 07-30-2017 Episodic Residual codes; unclassified (1 source) Other amnesia; Translations: [Memory deficit] Onset: 10-05-2024 Episodic Spondylosis; intervertebral disc disorders; other back problems (20 sources) Stenosis of lumbar vertebral foramen; Translations: [Spinal stenosis, lumbar region without neurogenic claudication] Onset: 09-11-2024 Episodic Unclassified (2 sources) Patient encounter status 10-09-2024 Urinary tract infections (3 sources) Urinary tract infectious disease; Translations: [Urinary tract infection, site not specified] Onset: 09-22-2024 09-21-2024 Episodic Results Test Name Value Interpretation Reference Range Facility CNTHERAPYon 02-12-2025 CNTHERAPY OT/PT/Speech Visit ( PTWS) -- SUSAN CALDERON ([id number]) 1955 F TXT Date Time Provider Department 02/12/25 10:45 AM [facility] PTWS Date Time Provider Department Center 02/12/2025 10:45 AM [id number], COREY PTWS Daina Palmer Reason for Visit: PT Discharge [752] Primary Visit Diagnosis:Gait instability [R26.81] Allergies As of Date: 02/12/2025 Noted Allergy Reaction CEPHALOSPORINS 02/27/2019 12 - Shortness of Breath PENICILLINS 04/17/2005 10 - Anaphylaxis 12 - Shortness of Breath Comments: rash DOXYCYCLINE 02/27/2019 14 - Other: See Comments Comments: Teeth discoloration ENTEX PSE (PSEUDOEPHEDRINE-GUAIFE* 5 - Intolerance Comments: insomnia,jittery LEVAQUIN (LEVOFLOXACIN) 04/17/2005 14 - Other: See Comments Comments: muscle pain, heel pain (plantar side) RELAFEN (NABUMETONE) 04/17/2005 7 - Swelling Date Reviewed: 11/29/2024 Reviewed by: Suzanne Dodd LPN - Fully Assessed Prescriptions as of 02/12/2025 - donepezil (ARICEPT) 10 mg tablet Take 1 tablet by mouth daily after breakfast. - cyclobenzaprine (FLEXERIL) 5 mg tablet Take 1-2 tablets by mouth three times a day as needed (cramping and muscle spasm). - lisinopril (ZESTRIL) 40 mg tablet Take 1 tablet by mouth once daily. DOSE CHANGE - TAKE ONE DAILY - POTASSIUM ORAL Take 99 mg by mouth once daily. - QTXBUNZU-[id number]-HT T C ORAL Take by mouth once daily. - atenolol (TENORMIN) 25 mg tablet Take 1 tablet by mouth once daily. - gabapentin (NEURONTIN) 400 mg capsule Take 1 capsule by mouth three times a day for 180 days. - atorvastatin (LIPITOR) 10 mg tablet Take 1 tablet by mouth daily at bedtime. - montelukast (SINGULAIR) 10 mg tablet Take 1 tablet by mouth daily at bedtime. - ubidecarenone Q-10 (CO Q-10) 10 mg cap Take by mouth two times a day. - npnsqosy-imjohg-tthkzmms acid (COLLAGEN 1500 PLUS C) 500 mg-800 mcg- 50 mg cap Take by mouth. - omega-3 DHA-EPA (FISH OIL) 1,200 (144-216) mg capsule Take 1 capsule by mouth daily with breakfast. - D3/red wine/resveratrol/malt (SUPER-D3+ ORAL) Take 1 Each by mouth once daily. - magnesium oxide 400 mg magnesium tab Take 2 each by mouth once daily. 1000 mg daily - niacin (NIACIN) 500 mg tablet Take 500 mg by mouth daily with breakfast. - aspirin 81 mg chewable tablet Take 81 mg by mouth once daily. - calcium carbonate/vitamin D3 (CALCIUM WITH VITAMIN D ORAL) Take by mouth. 1200 with 1000 of D - OTC NUTRITIONAL SUPPLEMENT Take by mouth once daily. Prevagen - glucosamine/chondroitin/C/ Juice (GLUCOSAMINE-CHONDROITIN COMPLX ORAL) Take by mouth once daily. - VITAMIN E ORAL Take 1 capsule by mouth once daily. - vitamin B complex (SUPER B COMPLEX ORAL) Take 1 tablet by mouth once daily. - fluticasone (FLONASE) 50 mcg/actuation nasal spray SPRAY 2 SPRAYS INTO EACH NOSTRIL ONCE DAILY - RINSE MOUTH AFTER USE - fluticasone-salmeterol (ADVAIR DISKUS) 250-50 mcg/dose inhaler Inhale 1 Puff as instructed twice daily. - albuterol HFA (PROVENTIL HFA) 90 mcg/actuation inhaler Inhale 2 Puffs as instructed every 4 hours as needed for wheezing/shortness of breath. Normal [facility] CNTHERAPYon 02-08-2025 CNTHERAPY OT/PT/Speech Visit ( PTWS) -- SUSAN CALDERON ([id number]) 1955 F TXT Date Time Provider Department 02/08/25 10:45 AM [facility] PTWS Date Time Provider Department [place] 02/08/2025 10:45 AM [id number], COREY PTWS Daina Palmer Reason for Visit: Physical Therapy [503] Primary Visit Diagnosis:Gait instability [R26.81] Allergies As of Date: 02/08/2025 Noted Allergy Reaction CEPHALOSPORINS 02/27/2019 12 - Shortness of Breath PENICILLINS 04/17/2005 10 - Anaphylaxis 12 - Shortness of Breath Comments: rash DOXYCYCLINE 02/27/2019 14 - Other: See Comments Comments: Teeth discoloration ENTEX PSE (PSEUDOEPHEDRINE-GUAIFE* 5 - Intolerance Comments: insomnia,jittery LEVAQUIN (LEVOFLOXACIN) 04/17/2005 14 - Other: See Comments Comments: muscle pain, heel pain (plantar side) RELAFEN (NABUMETONE) 04/17/2005 7 - Swelling Date Reviewed: 11/29/2024 Reviewed by: Suzanne Dodd LPN - Fully Assessed Prescriptions as of 02/08/2025 - donepezil (ARICEPT) 10 mg tablet Take 1 tablet by mouth daily after breakfast. - cyclobenzaprine (FLEXERIL) 5 mg tablet Take 1-2 tablets by mouth three times a day as needed (cramping and muscle spasm). - lisinopril (ZESTRIL) 40 mg tablet Take 1 tablet by mouth once daily. DOSE CHANGE - TAKE ONE DAILY - POTASSIUM ORAL Take 99 mg by mouth once daily. - [id number]-[id number]-DM T C ORAL Take by mouth once daily. - atenolol (TENORMIN) 25 mg tablet Take 1 tablet by mouth once daily. - gabapentin (NEURONTIN) 400 mg capsule Take 1 capsule by mouth three times a day for 180 days. - atorvastatin (LIPITOR) 10 mg tablet Take 1 tablet by mouth daily at bedtime. - montelukast (SINGULAIR) 10 mg tablet Take 1 tablet by mouth daily at bedtime. - ubidecarenone Q-10 (CO Q-10) 10 mg cap Take by mouth two times a day. - boqtmbzu-ihobif-axpfrzyr acid (COLLAGEN 1500 PLUS C) 500 mg-800 mcg- 50 mg cap Take by mouth. - omega-3 DHA-EPA (FISH OIL) 1,200 (144-216) mg capsule Take 1 capsule by mouth daily with breakfast. - D3/red wine/resveratrol/malt (SUPER-D3+ ORAL) Take 1 Each by mouth once daily. - magnesium oxide 400 mg magnesium tab Take 2 each by mouth once daily. 1000 mg daily - niacin (NIACIN) 500 mg tablet Take 500 mg by mouth daily with breakfast. - aspirin 81 mg chewable tablet Take 81 mg by mouth once daily. - calcium carbonate/vitamin D3 (CALCIUM WITH VITAMIN D ORAL) Take by mouth. 1200 with 1000 of D - OTC NUTRITIONAL SUPPLEMENT Take by mouth once daily. Prevagen - glucosamine/chondroitin/C/ Juice (GLUCOSAMINE-CHONDROITIN COMPLX ORAL) Take by mouth once daily. - VITAMIN E ORAL Take 1 capsule by mouth once daily. - vitamin B complex (SUPER B COMPLEX ORAL) Take 1 tablet by mouth once daily. - fluticasone (FLONASE) 50 mcg/actuation nasal spray SPRAY 2 SPRAYS INTO EACH NOSTRIL ONCE DAILY - RINSE MOUTH AFTER USE - fluticasone-salmeterol (ADVAIR DISKUS) 250-50 mcg/dose inhaler Inhale 1 Puff as instructed twice daily. - albuterol HFA (PROVENTIL HFA) 90 mcg/actuation inhaler Inhale 2 Puffs as instructed every 4 hours as needed for wheezing/shortness of breath. Normal [facility] CNTHERAPYon 02-05-2025 CNTHERAPY OT/PT/Speech Visit ( PTWS) -- SUSAN CALDERON ([id number]) 1955 F TXT Date Time Provider Department 02/05/25 9:15 AM [facility] PTSENT[facility] Date Time Provider Department Center 02/05/2025 9:15 AM [id number], COREY PTWS Daina Palmer Reason for Visit: Physical Therapy [503] Primary Visit Diagnosis:Gait instability [R26.81] Allergies As of Date: 02/05/2025 Noted Allergy Reaction CEPHALOSPORINS 02/27/2019 12 - Shortness of Breath PENICILLINS 04/17/2005 10 - Anaphylaxis 12 - Shortness of Breath Comments: rash DOXYCYCLINE 02/27/2019 14 - Other: See Comments Comments: Teeth discoloration ENTEX PSE (PSEUDOEPHEDRINE-GUAIFE* 5 - Intolerance Comments: insomnia,jittery LEVAQUIN (LEVOFLOXACIN) 04/17/2005 14 - Other: See Comments Comments: muscle pain, heel pain (plantar side) RELAFEN (NABUMETONE) 04/17/2005 7 - Swelling Date Reviewed: 11/29/2024 Reviewed by: Suznane Dodd LPN - Fully Assessed Prescriptions as of 02/05/2025 - donepezil (ARICEPT) 10 mg tablet Take 1 tablet by mouth daily after breakfast. - cyclobenzaprine (FLEXERIL) 5 mg tablet Take 1-2 tablets by mouth three times a day as needed (cramping and muscle spasm). - lisinopril (ZESTRIL) 40 mg tablet Take 1 tablet by mouth once daily. DOSE CHANGE - TAKE ONE DAILY - POTASSIUM ORAL Take 99 mg by mouth once daily. - [id number]-SBFWUCZFLDSNJU-NN T C ORAL Take by mouth once daily. - atenolol (TENORMIN) 25 mg tablet Take 1 tablet by mouth once daily. - gabapentin (NEURONTIN) 400 mg capsule Take 1 capsule by mouth three times a day for 180 days. - atorvastatin (LIPITOR) 10 mg tablet Take 1 tablet by mouth daily at bedtime. - montelukast (SINGULAIR) 10 mg tablet Take 1 tablet by mouth daily at bedtime. - ubidecarenone Q-10 (CO Q-10) 10 mg cap Take by mouth two times a day. - drslyuts-kvrgvp-ctjdglmg acid (COLLAGEN 1500 PLUS C) 500 mg-800 mcg- 50 mg cap Take by mouth. - omega-3 DHA-EPA (FISH OIL) 1,200 (144-216) mg capsule Take 1 capsule by mouth daily with breakfast. - D3/red wine/resveratrol/malt (SUPER-D3+ ORAL) Take 1 Each by mouth once daily. - magnesium oxide 400 mg magnesium tab Take 2 each by mouth once daily. 1000 mg daily - niacin (NIACIN) 500 mg tablet Take 500 mg by mouth daily with breakfast. - aspirin 81 mg chewable tablet Take 81 mg by mouth once daily. - calcium carbonate/vitamin D3 (CALCIUM WITH VITAMIN D ORAL) Take by mouth. 1200 with 1000 of D - OTC NUTRITIONAL SUPPLEMENT Take by mouth once daily. Prevagen - glucosamine/chondroitin/C/ Juice (GLUCOSAMINE-CHONDROITIN COMPLX ORAL) Take by mouth once daily. - VITAMIN E ORAL Take 1 capsule by mouth once daily. - vitamin B complex (SUPER B COMPLEX ORAL) Take 1 tablet by mouth once daily. - fluticasone (FLONASE) 50 mcg/actuation nasal spray SPRAY 2 SPRAYS INTO EACH NOSTRIL ONCE DAILY - RINSE MOUTH AFTER USE - fluticasone-salmeterol (ADVAIR DISKUS) 250-50 mcg/dose inhaler Inhale 1 Puff as instructed twice daily. - albuterol HFA (PROVENTIL HFA) 90 mcg/actuation inhaler Inhale 2 Puffs as instructed every 4 hours as needed for wheezing/shortness of breath. Normal [facility] CNTHERAPYon 06-12-2025 CNTHERAPY OT/PT/Speech Visit ( PTWS) -- SUSAN CALDERON ([id number]) 1955 F TXT Date Time Provider Department 01/25/25 10:45 AM [facility] PTWS Date Time Provider Department [place] 01/25/2025 10:45 AM [id number], COREY PTWS Daina Palmer Reason for Visit: Physical Therapy [503] Primary Visit Diagnosis:Gait instability [R26.81] Allergies As of Date: 01/25/2025 Noted Allergy Reaction CEPHALOSPORINS 02/27/2019 12 - Shortness of Breath PENICILLINS 04/17/2005 10 - Anaphylaxis 12 - Shortness of Breath Comments: rash DOXYCYCLINE 02/27/2019 14 - Other: See Comments Comments: Teeth discoloration ENTEX PSE (PSEUDOEPHEDRINE-GUAIFE* 5 - Intolerance Comments: insomnia,jittery LEVAQUIN (LEVOFLOXACIN) 04/17/2005 14 - Other: See Comments Comments: muscle pain, heel pain (plantar side) RELAFEN (NABUMETONE) 04/17/2005 7 - Swelling Date Reviewed: 11/29/2024 Reviewed by: Suzanne Dodd LPN - Fully Assessed Prescriptions as of 01/25/2025 - donepezil (ARICEPT) 10 mg tablet Take 1 tablet by mouth daily after breakfast. - cyclobenzaprine (FLEXERIL) 5 mg tablet Take 1-2 tablets by mouth three times a day as needed (cramping and muscle spasm). - lisinopril (ZESTRIL) 40 mg tablet Take 1 tablet by mouth once daily. DOSE CHANGE - TAKE ONE DAILY - POTASSIUM ORAL Take 99 mg by mouth once daily. - [id number]-IYIMRQSGNOGCSK-KJ T C ORAL Take by mouth once daily. - atenolol (TENORMIN) 25 mg tablet Take 1 tablet by mouth once daily. - gabapentin (NEURONTIN) 400 mg capsule Take 1 capsule by mouth three times a day for 180 days. - atorvastatin (LIPITOR) 10 mg tablet Take 1 tablet by mouth daily at bedtime. - montelukast (SINGULAIR) 10 mg tablet Take 1 tablet by mouth daily at bedtime. - ubidecarenone Q-10 (CO Q-10) 10 mg cap Take by mouth two times a day. - nljbohuy-icirqt-vhgtamsp acid (COLLAGEN 1500 PLUS C) 500 mg-800 mcg- 50 mg cap Take by mouth. - omega-3 DHA-EPA (FISH OIL) 1,200 (144-216) mg capsule Take 1 capsule by mouth daily with breakfast. - D3/red wine/resveratrol/malt (SUPER-D3+ ORAL) Take 1 Each by mouth once daily. - magnesium oxide 400 mg magnesium tab Take 2 each by mouth once daily. 1000 mg daily - niacin (NIACIN) 500 mg tablet Take 500 mg by mouth daily with breakfast. - aspirin 81 mg chewable tablet Take 81 mg by mouth once daily. - calcium carbonate/vitamin D3 (CALCIUM WITH VITAMIN D ORAL) Take by mouth. 1200 with 1000 of D - OTC NUTRITIONAL SUPPLEMENT Take by mouth once daily. Prevagen - glucosamine/chondroitin/C/ Juice (GLUCOSAMINE-CHONDROITIN COMPLX ORAL) Take by mouth once daily. - VITAMIN E ORAL Take 1 capsule by mouth once daily. - vitamin B complex (SUPER B COMPLEX ORAL) Take 1 tablet by mouth once daily. - fluticasone (FLONASE) 50 mcg/actuation nasal spray SPRAY 2 SPRAYS INTO EACH NOSTRIL ONCE DAILY - RINSE MOUTH AFTER USE - fluticasone-salmeterol (ADVAIR DISKUS) 250-50 mcg/dose inhaler Inhale 1 Puff as instructed twice daily. - albuterol HFA (PROVENTIL HFA) 90 mcg/actuation inhaler Inhale 2 Puffs as instructed every 4 hours as needed for wheezing/shortness of breath. Normal [facility] CNTHERAPYon 01-10-2025 CNTHERAPY OT/PT/Speech Visit ( PTWS) -- YOHANASUSAN BROOKS ([id number]) 1955 F TXT Date Time Provider Department 01/10/25 8:00 AM CHRISTIN WALSH PTWS Date Time Provider Department Center 01/10/2025 8:00 AM [id number], MARIAH PTWS Daina Mill Reason for Visit: Physical Therapy [503] Primary Visit Diagnosis:Gait instability [R26.81] Allergies As of Date: 01/10/2025 Noted Allergy Reaction CEPHALOSPORINS 02/27/2019 12 - Shortness of Breath PENICILLINS 04/17/2005 10 - Anaphylaxis 12 - Shortness of Breath Comments: rash DOXYCYCLINE 02/27/2019 14 - Other: See Comments Comments: Teeth discoloration ENTEX PSE (PSEUDOEPHEDRINE-GUAIFE* 5 - Intolerance Comments: insomnia,jittery LEVAQUIN (LEVOFLOXACIN) 04/17/2005 14 - Other: See Comments Comments: muscle pain, heel pain (plantar side) RELAFEN (NABUMETONE) 04/17/2005 7 - Swelling Date Reviewed: 11/29/2024 Reviewed by: Suzanne Dodd LPN - Fully Assessed Prescriptions as of 01/10/2025 - donepezil (ARICEPT) 10 mg tablet Take 1 tablet by mouth daily after breakfast. - cyclobenzaprine (FLEXERIL) 5 mg tablet Take 1-2 tablets by mouth three times a day as needed (cramping and muscle spasm). - lisinopril (ZESTRIL) 40 mg tablet Take 1 tablet by mouth once daily. DOSE CHANGE - TAKE ONE DAILY - POTASSIUM ORAL Take 99 mg by mouth once daily. - GGCJWUUK-FGIMRIMTRDVWUV-WQ T C ORAL Take by mouth once daily. - atenolol (TENORMIN) 25 mg tablet Take 1 tablet by mouth once daily. - gabapentin (NEURONTIN) 400 mg capsule Take 1 capsule by mouth three times a day for 180 days. - atorvastatin (LIPITOR) 10 mg tablet Take 1 tablet by mouth daily at bedtime. - montelukast (SINGULAIR) 10 mg tablet Take 1 tablet by mouth daily at bedtime. - ubidecarenone Q-10 (CO Q-10) 10 mg cap Take by mouth two times a day. - njijrgyb-zywnrd-xgkgdkiy acid (COLLAGEN 1500 PLUS C) 500 mg-800 mcg- 50 mg cap Take by mouth. - omega-3 DHA-EPA (FISH OIL) 1,200 (144-216) mg capsule Take 1 capsule by mouth daily with breakfast. - D3/red wine/resveratrol/malt (SUPER-D3+ ORAL) Take 1 Each by mouth once daily. - magnesium oxide 400 mg magnesium tab Take 2 each by mouth once daily. 1000 mg daily - niacin (NIACIN) 500 mg tablet Take 500 mg by mouth daily with breakfast. - aspirin 81 mg chewable tablet Take 81 mg by mouth once daily. - calcium carbonate/vitamin D3 (CALCIUM WITH VITAMIN D ORAL) Take by mouth. 1200 with 1000 of D - OTC NUTRITIONAL SUPPLEMENT Take by mouth once daily. Prevagen - glucosamine/chondroitin/C/ Juice (GLUCOSAMINE-CHONDROITIN COMPLX ORAL) Take by mouth once daily. - VITAMIN E ORAL Take 1 capsule by mouth once daily. - vitamin B complex (SUPER B COMPLEX ORAL) Take 1 tablet by mouth once daily. - fluticasone (FLONASE) 50 mcg/actuation nasal spray SPRAY 2 SPRAYS INTO EACH NOSTRIL ONCE DAILY - RINSE MOUTH AFTER USE - fluticasone-salmeterol (ADVAIR DISKUS) 250-50 mcg/dose inhaler Inhale 1 Puff as instructed twice daily. - albuterol HFA (PROVENTIL HFA) 90 mcg/actuation inhaler Inhale 2 Puffs as instructed every 4 hours as needed for wheezing/shortness of breath. [facility] 29on 01-09-2025 29 Addended by: JULIETA MEEKS on: 01/09/2025 09:23 AM Modules accepted: [facility] [id number] 01-05-2025 [id number] HNO ID: [id number] Author: SMITH CARO PT Service: ? Author Type: Physical Therapist Type: [id number] Filed: 01/05/2025 12:49 Note Text: [facility] Physical Therapy Plan of Care Certification Patient Name: Susan Calderon : 1955 [facility] #: [id number] Date: 01/04/2025 To: Prince Lorenzo From Therapist: Smith Caro PT RE: Patient Certification/ Recertification Your review, approval and electronic signature are required in order to comply with Payor: [employer] MEDICARE / Plan: [employer] MEDICARE PPO / Product Type: PPO / regulations. The identified Physical Therapy PLAN OF CARE for the patient is as follows: R26.81 Gait instability (primary encounter diagnosis) PLAN OF CARE: Assessment: Susan Calderon presents with chief complaint of low back pain that interferes with walking . The patient presents with impairments in ADL's, independence in exercise, overall function, range of motion, and strength. Patient did not complete the PROMIS? (Patient Reported Outcome Measures Information System). Prognosis for therapy is Good due to: current objective clinical presentation . The patient will benefit from skilled therapy services to meet the goals established for this plan of care as noted below. Classification Pain Mechanism Classification: Neuropathic Goals for Episode of Care: established 01/04/25 Independent in home exercises. Patient will decrease pain rating by 2 points to meet minimal clinical important difference for numeric pain rating scale. Restore pain-free lumbar ROM to min limitation or greater to allow for ease of picking up items and dressing Stand / Walk for 30 minutes without pain/symptoms. Pt will demo abdominal and extensor strength of the core to 5/5 for improved tolerance to ADL's and prolonged standing/walking. Patient Goals: Get to surgery Time Frame for Goals and Treatment : 02/01/25 Planned Interventions, Frequency, and Duration: Current Frequency: (1x/week for 2 weeks then 2x/week for 2 weeks) Duration: 4 weeks Total Number of Visits Planned: 6 Planned Treatment Interventions: Therapeutic exercise (89254), Neuromuscular re-education (09217), Manual therapy (07316), Therapeutic activities (58129), Self-detention management (66364), Patient/Family/Caregiver Education PLAN FOR NEXT VISIT: Core strengthening in a neutral spine Patient demonstrates good understanding of plan of care and treatment. The above goals and plan of care were discussed and agreed upon by patient/family. For further details regarding this patient refer to the Physical Therapy electronically documented visit dated 01/04/2025. Provider Attestation I have reviewed the treatment plan for Susan Calderon, [facility]CF# [id number] for the period of 01/04/25 -- 02/08/25, established on 01/04/2025. Signature certifies the need for therapy services. [facility]PT[facility]Speech Visit ( PTWS) -- SUSAN CALDERON ([id number]) 1955 F TXT Date Time Provider Department 01/04/25 9:15 AM SMITH CARO PTWS Date Time Provider Department [place] 01/04/2025 9:15 AM [id number], C[facility] PTWS Daina Palmer Reason for Visit: PT Eval [747] Primary Visit Diagnosis:Gait instability [R26.81] Allergies As of Date: 01/04/2025 Noted Allergy Reaction CEPHALOSPORINS 02/27/2019 12 - Shortness of Breath PENICILLINS 04/17/2005 10 - Anaphylaxis 12 - Shortness of Breath Comments: rash DOXYCYCLINE 02/27/2019 14 - Other: See Comments Comments: Teeth discoloration ENTEX PSE (PSEUDOEPHEDRINE-GUAIFE* 5 - Intolerance Comments: insomnia,jittery LEVAQUIN (LEVOFLOXACIN) 04/17/2005 14 - Other: See Comments Comments: muscle pain, heel pain (plantar side) RELAFEN (NABUMETONE) 04/17/2005 7 - Swelling Date Reviewed: 11/29/2024 Reviewed by: Suzanne Dodd LPN - Fully Assessed Prescriptions as of 01/05/2025 - donepezil (ARICEPT) 10 mg tablet Take 1 tablet by mouth daily after breakfast. - cyclobenzaprine (FLEXERIL) 5 mg tablet Take 1-2 tablets by mouth three times a day as needed (cramping and muscle spasm). - lisinopril (ZESTRIL) 40 mg tablet Take 1 tablet by mouth once daily. DOSE CHANGE - TAKE ONE DAILY - POTASSIUM ORAL Take 99 mg by mouth once daily. - OGITUVAQ-XPSWDBOLAEOTCS-HY T C ORAL Take by mouth once daily. - atenolol (TENORMIN) 25 mg tablet Take 1 tablet by mouth once daily. - gabapentin (NEURONTIN) 400 mg capsule Take 1 capsule by mouth three times a day for 180 days. - atorvastatin (LIPITOR) 10 mg tablet Take 1 tablet by mouth daily at bedtime. - montelukast (SINGULAIR) 10 mg tablet Take 1 tablet by mouth daily at bedtime. - ubidecarenone Q-10 (CO Q-10) 10 mg cap Take by mouth two times a day. - gtfkjkmi-geekon-vjwyvgvr acid (COLLAGEN 1500 PLUS C) 500 mg-800 mcg- 50 mg cap Take by mouth. - omega-3 DHA-EPA (FISH OIL) 1,200 (144-216) mg capsule Take 1 capsule by mouth daily with breakfast. - D3/red wine/resveratrol/malt (SUPER-D3+ ORAL) Take 1 Each by mouth once daily. - magnesium oxide 400 mg magnesium tab Take 2 each by mouth once daily. 1000 mg daily - niacin (NIACIN) 500 mg tablet Take 500 mg by mouth daily with breakfast. - aspirin 81 mg chewable tablet Take 81 mg by mouth once daily. - calcium carbonate/vitamin D3 (CALCIUM WITH VITAMIN D ORAL) Take by mouth. 1200 with 1000 of D - OTC NUTRITIONAL SUPPLEMENT Take by mouth once daily. Prevagen - glucosamine/chondroitin/C/ Juice (GLUCOSAMINE-CHONDROITIN COMPLX ORAL) Take by mouth once daily. - VITAMIN E ORAL Take 1 capsule by mouth once daily. - vitamin B complex (SUPER B COMPLEX ORAL) Take 1 tablet by mouth once daily. - fluticasone (FLONASE) 50 mcg/actuation nasal spray SPRAY 2 SPRAYS INTO EACH NOSTRIL ONCE DAILY - RINSE MOUTH AFTER USE - fluticasone-salmeterol (ADVAIR DISKUS) 250-50 mcg/dose inhaler Inhale 1 Puff as instructed twice daily. - albuterol HFA (PROVENTIL HFA) 90 mcg/actuation inhaler Inhale 2 Puffs as instructed every 4 hours as needed for wheezing/shortness of breath. Letter Text Normal [facility] 36on 01-03-2025 36 Name of caller: Carolann lucas Contact phone number: [phone] Relationship to Patient: patient Provider: Dr. Lorenzo Practice: neuro Chief Complaint/Reason for Call: Pt states she was informed by the pain mgt office of [facility] that the referral has not been received. Please advise. Best time of day caller can be reached: any Patient advised that office/PCP has 24-48 business hours to return their call: N/A [facility] 36on 01-02-2025 36 We wanted to inform you that your patient's blood pressure was noted to be elevated in our specialty office today. We thank you for trusting us with your patient's health. BP Readings from Last 1 Encounters: 01/02/25 (!) 142/84 [facility] Office Visiton 01-02-2025 Follow-up visit [id number] Justice Calderon 1955 F Date Provider Department Center 01/02/2025 [id number] LORENZO [facility] None Family History Problem Relation Age of Onset Stroke Mother Comments: aneurysm Lung cancer Father Family Status - Relation Status Age at Mother Father Brother Alive Level of Service:[address]44 [place] OFFICE/OUTPATIENT NEW MODERATE MDM 45 MINUTES Reason for Visit and Comments: New Patient [542] - Needs spinal surgery [facility] Progress Noteon 01-02-2025 Progress Note NEUROSURGERY CONSULT NOTE Patient Name: Susan Calderon Patient : 1955 PCP: CEE CHRISTIANSON History of Present Ilness: 69 y.o. presents with low back pain. States the pain radiates into her legs. She states her legs are weak and ache. She has difficulty walking. She cannot ambulate any significant distance. She has difficulty walking up stairs. She is unable to stand up straight. She does have a walker and cane that she uses intermittently. States she has been having these symptoms for 6 months. She has modified her activity, used a back brace and used heat/ice. She takes gabapentin as well. She has history of L4-S1 fusion. Chief Complaint Patient presents with New Patient Needs spinal surgery Past Medical History: Medical History[1] Past Surgical History: Surgical History[2] Home Medications: Prior to Admission medications Medication Sig Start Date End Date Taking? Authorizing Provider aspirin 81 MG chewable tablet Chew 81 mg daily. Yes Historical Provider, atenolol (Tenormin) 25 MG tablet Take 25 mg by mouth daily. Yes Historical Provider, atorvastatin (Lipitor) 10 MG tablet Take 10 mg by mouth Nightly. Yes Historical Provider, cetirizine (ZyrTEC) 10 MG chewable tablet Chew 10 mg daily. Yes Historical Provider, coenzyme Q-10 10 MG capsule Take by mouth twice a day. 02/21/24 Yes Historical Provider, Collagen-Vitamin C-Biotin (Collagen 1500/C) 500-50-0.8 MG capsule Take by mouth. 02/21/24 Yes Historical Provider, cyclobenzaprine (Flexeril) 5 MG tablet TAKE 1-2 TABLETS BY MOUTH THREE TIMES A DAY NEEDED (CRAMPING AND MUSCLE SPASM). Yes Historical Provider, donepezil (Aricept) 10 MG tablet Take 10 mg by mouth. 11/29/24 05/28/25 Yes Historical Provider, gabapentin (Neurontin) 400 MG capsule Take 400 mg by mouth 3 times a day. 03/29/24 Yes Historical Provider, lisinopril 40 MG tablet Take 40 mg by mouth daily. 10/17/24 Yes Historical Provider, magnesium oxide (Mag-Ox) 400 MG tablet Take 2 each by mouth daily. Yes Historical Provider, montelukast (Singulair) 10 MG tablet Take 10 mg by mouth Nightly. Yes Historical Provider, niacin, antihyperlipidemic, 500 MG tablet Take 500 mg by mouth daily (with breakfast). Yes Historical Provider, omega-3 (fish oil) 1200 MG capsule Take 1 capsule by mouth daily (with breakfast). Yes Historical Provider, Allergies: Penicillins, Doxycycline, Nabumetone, and Pseudoephedrine-guaifenesi n Social History: TOBACCO: reports that she quit smoking about 5 years ago. Her smoking use included cigarettes. She started smoking about 35 years ago. She has never used smokeless tobacco. ETOH: reports current alcohol use of about 3.0 - 4.0 standard drinks of alcohol per week. RECREATIONAL DRUG USE: Social History Substance and Sexual Activity Drug Use Never Family History: Family History[3] Review of Systems Physical Examination: Vitals: 01/02/25 1113 BP: (!) 142/84 Pulse: 60 Physical Exam Vitals reviewed. Constitutional: Appearance: Normal appearance. HENT: Head: Normocephalic and atraumatic. Nose: Nose normal. Mouth/Throat: Pharynx: Oropharynx is clear. Eyes: Extraocular Movements: Extraocular movements intact. Conjunctiva/sclera: Conjunctivae normal. Cardiovascular: Rate and Rhythm: Normal rate and regular rhythm. Pulses: Normal pulses. Pulmonary: Effort: Pulmonary effort is normal. No respiratory distress. Abdominal: General: There is no distension. Palpations: Abdomen is soft. Tenderness: There is no abdominal tenderness. Musculoskeletal: General: No tenderness. Normal range of motion. Cervical back: Normal range of motion and neck supple. No rigidity. Skin: General: Skin is warm and dry. Neurological: Mental Status: She is alert and oriented to person, place, and time. Cranial Nerves: No cranial nerve deficit. Sensory: No sensory deficit. Motor: Weakness present. Gait: Gait abnormal. Deep Tendon Reflexes: Reflexes abnormal. Comments: Gait unsteady, kyphotic in thoracolumbar spine Unable to walk on toes and heels Difficulty standing from a chair Strength 3 to 4-/5 in distal BLE Psychiatric: Mood and Affect: Mood normal. Behavior: Behavior normal. Neurological Exam Mental Status Alert. Oriented to person, place, and time. Cranial Nerves CN III, IV, : Extraocular movements intact bilaterally. Gait Abnormal gait. Gait unsteady, kyphotic in thoracolumbar spine Unable to walk on toes and heels Difficulty standing from a chair Strength 3 to 4-/5 in distal BLE . Gait Unsteady, kyphotic in thoracolumbar spine Results Labs: Last 24hrs No results found for this or any previous visit (from the past 24 hours). Radiology Personal review: Recent MRI lumbar spine was reviewed. She has moderate subacute appearing T11 compression fracture. She has evidence of previous L4-S1 fusion. She has magdy (more content not included)... Normal [facility] MR Lumbar spine WO contrasto n 12-30-2024 IMPRESSION: 1. Degenerative and postsurgical changes of the lumbar spine as discussed level by level in the body of the report. No severe spinal canal stenosis. 2. Acute to subacute compression deformity of T11 with approximately 50% height loss and minimal retropulsion of the superior endplate contributing to mild spinal canal narrowing. Anatomic Lumbar Variant: Online Marketing Director: APRYL Transcribe Date/Time: Dec 30 2024 9:36A Dictated by : GIFTY VAZQUEZ MD This examination was interpreted and the report reviewed and electronically signed by: GIFTY VAZQUEZ MD on Dec 30 2024 9:42AM EST [facility] * * *Final Report* * * DATE OF EXAM: Dec 30 2024 8:55AM LDM 0303 - MRI LUMBAR SPINE WO IVCON / PROCEDURE REASON: multiple diagnoses * * * * Physician Interpretation * * * * EXAMINATION: MRI LUMBAR SPINE WO IVCON CLINICAL HISTORY: Degeneration of intervertebral disc of lumbar region with discogenic back pain S/P lumbar spine operation. Chronic midline low back pain without sciatica. TECHNIQUE: Routine lumbosacral spine MR protocol without gadolinium. MQ: MRLSPWO_3 COMPARISON: 07/07/2019 RESULT: Counting reference: Lumbosacral junction. For the purposes of this report, L4-5 is considered the level of the iliac crest and assume there are 5 lumbar-type vertebrae. Anatomic variant: None. Localizer images: Atrophy of the left kidney and hypertrophy of the right kidney.. Alignment: 3 mm retrolisthesis of L3 on L4 is again noted. Alignment is otherwise preserved. Bone marrow signal/fracture: Posterior instrumented fusion extending from L4 down to S1 with bilateral pedicle screws and connecting rods, unchanged. There is posterior decompression at L3 and below. There is compression deformity of T11 with approximately 50% height loss, bone marrow edema suggests acute to subacute etiology with minimal retropulsion of the superior endplate contributing to mild spinal canal narrowing. Bone marrow edema is seen at L3 and L4 levels with severe loss of intervertebral disc height, likely progression of degenerative changes. Conus: Conus is unremarkable. There is clumping of the cauda equina at L1 and below with empty thecal sac at L4 and below, unchanged since prior examination and suggestive sequela of arachnoiditis. Paraspinal soft tissues: Postsurgical changes at L3 and below, no loculated fluid collection. Lower thoracic spine: Visualized lower thoracic canal and foramina are patent. L1-L2: Mild disc bulge with no significant canal or foraminal stenosis. L2-L3: Disc bulge with mild spinal canal and mild bilateral foraminal stenosis. L3-L4: Canal is decompressed. Moderate bilateral foraminal stenosis. L4-L5: Canal is decompressed. Foramina are patent bilaterally. L5-S1: Canal is decompressed. Mild bilateral foraminal stenosis. Sacrum and iliac wings: The visualized sacrum and iliac wings are within normal limits. [facility] Provider, [facility] ashley Holmes - 12/30/2024 * * *Final Report* * * DATE OF EXAM: Dec 30 2024 8:55AM LDM 0303 - MRI LUMBAR SPINE WO IVCON / PROCEDURE REASON: multiple diagnoses * * * * Physician Interpretation * * * * EXAMINATION: MRI LUMBAR SPINE WO IVCON CLINICAL HISTORY: Degeneration of intervertebral disc of lumbar region with discogenic back pain S/P lumbar spine operation. Chronic midline low back pain without sciatica. TECHNIQUE: Routine lumbosacral spine MR protocol without gadolinium. MQ: MRLSPWO_3 COMPARISON: 07/07/2019 RESULT: Counting reference: Lumbosacral junction. For the purposes of this report, L4-5 is considered the level of the iliac crest and assume there are 5 lumbar-type vertebrae. Anatomic variant: None. Localizer images: Atrophy of the left kidney and hypertrophy of the right kidney.. Alignment: 3 mm retrolisthesis of L3 on L4 is again noted. Alignment is otherwise preserved. Bone marrow signal/fracture: Posterior instrumented fusion extending from L4 down to S1 with bilateral pedicle screws and connecting rods, unchanged. There is posterior decompression at L3 and below. There is compression deformity of T11 with approximately 50% height loss, bone marrow edema suggests acute to subacute etiology with minimal retropulsion of the superior endplate contributing to mild spinal canal narrowing. Bone marrow edema is seen at L3 and L4 levels with severe loss of intervertebral disc height, likely progression of degenerative changes. Conus: Conus is unremarkable. There is clumping of the cauda equina at L1 and below with empty thecal sac at L4 and below, unchanged since prior examination and suggestive sequela of arachnoiditis. Paraspinal soft tissues: Postsurgical changes at L3 and below, no loculated fluid collection. Lower thoracic spine: Visualized lower thoracic canal and foramina are patent. L1-L2: Mild disc bulge with no significant canal or foraminal stenosis. L2-L3: Disc bulge with mild spinal canal and mild bilateral foraminal stenosis. L3-L4: Canal is decompressed. Moderate bilateral foraminal stenosis. L4-L5: Canal is decompressed. Foramina are patent bilaterally. L5-S1: Canal is decompressed. Mild bilateral foraminal stenosis. Sacrum and iliac wings: The visualized sacrum and iliac wings are within normal limits. IMPRESSION IMPRESSION: 1. Degenerative and postsurgical changes of the lumbar spine as discussed level by level in the body of the report. No severe spinal canal stenosis. 2. Acute to subacute compression deformity of T11 with approximately 50% height loss and minimal retropulsion of the superior endplate contributing to mild spinal canal narrowing. Anatomic Lumbar Variant: Online Marketing Director: APRYL Transcribe Date/Time: Dec 30 2024 9:36A Dictated by : GIFTY VAZQUEZ MD This examination was interpreted and the report reviewed and electronically signed by: GIFTY VAZQUEZ MD on Dec 30 2024 9:42AM EST [facility] Radiology Study observation (narrative) [facility] MR Lumbar spine WO contrastO rdered By: [facility] Provider on 12-30-2024 [facility] MRI LUMBAR SPINE WO IVCONon 12-30-2024 MRI LUMBAR SPINE WO IVCON * * *Final Report* * * DATE OF EXAM: Dec 30 2024 8:55AM LDM 0303 - MRI LUMBAR SPINE WO IVCON / PROCEDURE REASON: multiple diagnoses * * * * Physician Interpretation * * * * EXAMINATION: MRI LUMBAR SPINE WO IVCON CLINICAL HISTORY: Degeneration of intervertebral disc of lumbar region with discogenic back pain S/P lumbar spine operation. Chronic midline low back pain without sciatica. TECHNIQUE: Routine lumbosacral spine MR protocol without gadolinium. MQ: MRLSPWO_3 COMPARISON: 07/07/2019 RESULT: Counting reference: Lumbosacral junction. For the purposes of this report, L4-5 is considered the level of the iliac crest and assume there are 5 lumbar-type vertebrae. Anatomic variant: None. Localizer images: Atrophy of the left kidney and hypertrophy of the right kidney.. Alignment: 3 mm retrolisthesis of L3 on L4 is again noted. Alignment is otherwise preserved. Bone marrow signal/fracture: Posterior instrumented fusion extending from L4 down to S1 with bilateral pedicle screws and connecting rods, unchanged. There is posterior decompression at L3 and below. There is compression deformity of T11 with approximately 50% height loss, bone marrow edema suggests acute to subacute etiology with minimal retropulsion of the superior endplate contributing to mild spinal canal narrowing. Bone marrow edema is seen at L3 and L4 levels with severe loss of intervertebral disc height, likely progression of degenerative changes. Conus: Conus is unremarkable. There is clumping of the cauda equina at L1 and below with empty thecal sac at L4 and below, unchanged since prior examination and suggestive sequela of arachnoiditis. Paraspinal soft tissues: Postsurgical changes at L3 and below, no loculated fluid collection. Lower thoracic spine: Visualized lower thoracic canal and foramina are patent. L1-L2: Mild disc bulge with no significant canal or foraminal stenosis. L2-L3: Disc bulge with mild spinal canal and mild bilateral foraminal stenosis. L3-L4: Canal is decompressed. Moderate bilateral foraminal stenosis. L4-L5: Canal is decompressed. Foramina are patent bilaterally. L5-S1: Canal is decompressed. Mild bilateral foraminal stenosis. Sacrum and iliac wings: The visualized sacrum and iliac wings are within normal limits. IMPRESSION: 1. Degenerative and postsurgical changes of the lumbar spine as discussed level by level in the body of the report. No severe spinal canal stenosis. 2. Acute to subacute compression deformity of T11 with approximately 50% height loss and minimal retropulsion of the superior endplate contributing to mild spinal canal narrowing. Anatomic Lumbar Variant: Online Marketing Director: APRYL Transcribe Date/Time: Dec 30 2024 9:36A Dictated by : GIFTY VAZQUEZ MD This examination was interpreted and the report reviewed and electronically signed by: GIFTY VAZQUEZ MD on Dec 30 2024 9:42AM EST [id number] [facility] Telephone (INTWS) -- SUSAN CALDERON ([id number]) 1955 F TXT Date Time Provider Department 12/27/24 CEE CHRISTIANSON INTWS During your visit today, we recorded the following information about you: Lucille Ji LPN 12/27/2024 2:53 PM Signed Patient calling asking to have Lumbar xrays that were done 09/11/2024 put on a disc please. Patient has appt on 01/[address] Lorenzo. Advised patient to pick up operator disc on Wednesday at specialty center Radiology desk. If any problem please call patient. Thank you Joanna Weaver PSS 01/01/2025 8:44 AM Signed CD READY FOR JIG FITTER AT [facility] RADIOLOGY Allergies As of Date: 12/27/2024 Noted Allergy Reaction CEPHALOSPORINS 02/27/2019 12 - Shortness of Breath PENICILLINS 04/17/2005 10 - Anaphylaxis 12 - Shortness of Breath Comments: rash DOXYCYCLINE 02/27/2019 14 - Other: See Comments Comments: Teeth discoloration ENTEX PSE (PSEUDOEPHEDRINE-GUAIFE* 5 - Intolerance Comments: insomnia,jittery LEVAQUIN (LEVOFLOXACIN) 04/17/2005 14 - Other: See Comments Comments: muscle pain, heel pain (plantar side) RELAFEN (NABUMETONE) 04/17/2005 7 - Swelling Date Reviewed: 11/29/2024 Reviewed by: Suzanne Dodd LPN - Fully Assessed Reason for Visit: xrays on disc [Other] Prescriptions as of 01/01/2025 - donepezil (ARICEPT) 10 mg tablet Take 1 tablet by mouth daily after breakfast. - cyclobenzaprine (FLEXERIL) 5 mg tablet Take 1-2 tablets by mouth three times a day as needed (cramping and muscle spasm). - lisinopril (ZESTRIL) 40 mg tablet Take 1 tablet by mouth once daily. DOSE CHANGE - TAKE ONE DAILY - POTASSIUM ORAL Take 99 mg by mouth once daily. - HNXFVKAX-YJFRTVLYWEHMNW-QR T C ORAL Take by mouth once daily. - atenolol (TENORMIN) 25 mg tablet Take 1 tablet by mouth once daily. - gabapentin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 controls by quantitative analysis. * Mild white matter disease which is nonspecific but likely reflective of chronic microvascular ischemia. * No evidence of parenchymal microhemorrhages by MRI. REFERENCES: White Matter Lesions: 0 = No lesions, including symmetrical, well-defined caps or bands 1 = Focal Lesions 2 = Beginning of [place] 3 = Diffuse Involvement of Entire Region Basal Ganglia Lesions: 0 = No Lesions 1 = 1 Focal Lesion (>5mm) 2 = >1 Focal Lesion (>5mm) 3 = Confluent Lesions David Foley, et al. The clinical use of structural MRI in Alzheimer disease. Nature Reviews Neurology 6;67 (2010). Gelacio et al. Validation of a fully automated 3D hippocampal segmentation method using subjects with Alzheimer's disease mild cognitive impairment, and elderly controls. Neuroimage 43;59 (2008). Wahlund et al. A New Rating Scale for Age-Related White Matter Changes Applicable to MRI and CT. Stroke. 32:1318 (2001). * Asymmetry index defined as difference between left and right volumes divided by mean or [(L-R/Mean) x 100] (%). Age-matched reference charts measure total hippocampal volume (% of intracranial volume). See results from the analysis c (more content not included)... [facility] MR Unspecified body region 3 D post processingon 11-07-2024 * * *Final Report* * * DATE OF EXAM: Nov 07 2024 1:34PM [facility] [id number] - MRI 3D BRAIN QUANT / PROCEDURE REASON: Cognitive impairment, mild, so stated * * * * Physician Interpretation * * * * EXAMINATION: MRI BRAIN W QUANT WO IVCON, MRI 3D BRAIN QUANT CLINICAL HISTORY: Cognitive impairment TECHNIQUE: Axial NUVIA FLAIR, NUVIA T2, diffusion and susceptibility weighted imaging without contrast, using the ADNI dementia protocol and 3-D post-processing using the [email or web address] software at an independent workstation with concurrent physician supervision and images were created, reviewed and archived. MQ: [id number] COMPARISON: None RESULT: QUALITATIVE: Acute Intracranial Process: None. Chronic Intracranial Process: Number of chronic lacunar infarcts: None Location of chronic lacunar infarcts: Not applicable Age related white matter changes (ARWMC) rating: White matter lesions: 1 Basal ganglia lesions: 0 Prior intracranial hemorrhage: Parenchymal microhemorrhages: 0 Other (siderosis/macrohemorrhage s (>10mm): Not Applicable Amyloid Related Imaging Abnormalities: ARIA-E: N/A ARIA-H Microhemorrhage: N/A ARIA-H Siderosis: N/A Qualitative brain and hippocampal volume loss for age: Cortex: Mild White Matter: Mild Hippocampi: Mild and Symmetric Ventricles: Commensurate with volume loss. Brain Parenchymal Signal and Morphology: The brain parenchyma is otherwise within normal limits of signal and morphology. There is no evidence of an intracranial mass or extraaxial fluid collection. Other Significant Findings: Trace bilateral mastoid effusions. Mild nuchal periosteal thickening of the bilateral maxillary sinuses. QUANTITATIVE: Exam Quality: Good for volumetric analysis. Segmentation: Considerable mismapping by visual inspection. Quantitative Data: Total Hippocampal Volume: Percentile for Age: 11 Asymmetry Index: 9.5 Inferior Lateral Vent Volume: Percentile for age: 85 Asymmetry Index: -53.1 Superior Lateral Vent Volume: Percentile for age: 58 Asymmetry Index: -6.18 Temporal Lobe Cortex Volume: Temporal Lobe Percentile for Age: 93 Temporal Lobe Asymmetry Index: 6.47 Frontal Lobe Cortex Volume: Frontal Lobe Percentile for Age: 38 Frontal Lobe Asymmetry Index: -2.31 Parietal Lobe Cortex Volume: Parietal Lobe Percentile for Age:48 Occipital Lobe Cortex Volume: Occipital Lobe Percentile for Age: 64 Whole Brain Volume Brain Percentile for Age: 61 Concordance between qualitative and quantitative hippocampal volume assessment: Concordant Change in brain volumes: No previous volumetric study for comparison See below for comparison of brain volumes in relation to the prior volumetric study: Not applicable. The prior study was reprocessed with the current algorithm version for adequate comparison. Please note that small variations may be due to standard measurement error. Brain Volume: Current percentile: N/A Previous percentile: N/A Hippocampal Volume: Current percentile: N/A Previous percentile: N/A Superior Lateral Ventricle Volume Change: Current percentile: N/A Previous percentile: N/A Inferior Lateral Ventricle Volume Change: Current percentile: N/A Previous percentile: N/A Mean hippocampal volume loss among normal elderly: 0.7% per year, (-0.3 to 1.7; Gelacio 2008; also David 2010). [facility] RAD[facility] Provider, [facility] - 11/07/2024 * * *Final Report* * * DATE OF EXAM: Nov 07 2024 1:34PM [facility] [id number] - MRI 3D BRAIN QUANT / PROCEDURE REASON: Cognitive impairment, mild, so stated * * * * Physician Interpretation * * * * EXAMINATION: MRI BRAIN W QUANT WO IVCON, MRI 3D BRAIN QUANT CLINICAL HISTORY: Cognitive impairment TECHNIQUE: Axial NUVIA FLAIR, NUVIA T2, diffusion and susceptibility weighted imaging without contrast, using the ADNI dementia protocol and 3-D post-processing using the [employer] software at an independent workstation with concurrent physician supervision and images were created, reviewed and archived. MQ: [id number] COMPARISON: None RESULT: QUALITATIVE: Acute Intracranial Process: None. Chronic Intracranial Process: Number of chronic lacunar infarcts: None Location of chronic lacunar infarcts: Not applicable Age related white matter changes (ARWMC) rating: White matter lesions: 1 Basal ganglia lesions: 0 Prior intracranial hemorrhage: Parenchymal microhemorrhages: 0 Other (siderosis/macrohemorrhage s (>10mm): Not Applicable Amyloid Related Imaging Abnormalities: ARIA-E: N/A ARIA-H Microhemorrhage: N/A ARIA-H Siderosis: N/A Qualitative brain and hippocampal volume loss for age: Cortex: Mild White Matter: Mild Hippocampi: Mild and Symmetric Ventricles: Commensurate with volume loss. Brain Parenchymal Signal and Morphology: The brain parenchyma is otherwise within normal limits of signal and morphology. There is no evidence of an intracranial mass or extraaxial fluid collection. Other Significant Findings: Trace bilateral mastoid effusions. Mild nuchal periosteal thickening of the bilateral maxillary sinuses. QUANTITATIVE: Exam Quality: Good for volumetric analysis. Segmentation: Considerable mismapping by visual inspection. Quantitative Data: Total Hippocampal Volume: Percentile for Age: 11 Asymmetry Index: 9.5 Inferior Lateral Vent Volume: Percentile for age: 85 Asymmetry Index: -53.1 Superior Lateral Vent Volume: Percentile for age: 58 Asymmetry Index: -6.18 Temporal Lobe Cortex Volume: Temporal Lobe Percentile for Age: 93 Temporal Lobe Asymmetry Index: 6.47 Frontal Lobe Cortex Volume: Frontal Lobe Percentile for Age: 38 Frontal Lobe Asymmetry Index: -2.31 Parietal Lobe Cortex Volume: Parietal Lobe Percentile for Age:48 Occipital Lobe Cortex Volume: Occipital Lobe Percentile for Age: 64 Whole Brain Volume Brain Percentile for Age: 62 Concordance between qualitative and quantitative hippocampal volume assessment: Concordant Change in brain volumes: No previous volumetric study for comparison See below for comparison of brain volumes in relation to the prior volumetric study: Not applicable. The prior study was reprocessed with the current algorithm version for adequate comparison. Please note that small variations may be due to standard measurement error. Brain Volume: Current percentile: N/A Previous percentile: N/A Hippocampal Volume: Current percentile: N/A Previous percentile: N/A Superior Lateral Ventricle Volume Change: Current percentile: N/A Previous percentile: N/A Inferior Lateral Ventricle Volume Change: Current percentile: N/A Previous percentile: N/A Mean hippocampal volume loss among normal elderly: 0.7% per year, (-0.3 to 1.7; Gelacio 2008; also David 2010). IMPRESSION IMPRESSION: * No evidence of an acute intracranial process or intracranial mass. * Mild generalized volume loss. * Hippocampal volumes at the 11 percentile when compared to age matched normal controls by quantitative analysis. * Mild white matter disease which is nonspecific but likely reflective of chronic microvascular ischemia. * No evidence of parenchymal microhemorrhages by MRI. REFERENCES: White Matter Lesions: 0 = No lesions, including symmetrical, well-defined caps or bands 1 = Focal Lesions 2 = Beginning of [place] 3 = Diffuse Involvement of Entire Region Basal Ganglia Lesions: 0 = No Lesions 1 = 1 Focal Lesion (>5mm) 2 = >1 Focal Lesion (>5mm) 3 = Confluent Lesions David Foley et al. The clinical use of structural MRI in Alzheimer disease. Nature Reviews Neurology 6;67 (2010). Gelacio et al. Validation of a fully automated 3D hippocampal segmentation method using subjects with Alzheimer's disease mild cognitive impairment, and elderly controls. Neuroimage 43;59 (2008). Austinund et al. A New Rating Scale for Age-Related White Matter Changes Applicable to MRI and CT. Stroke. 32:1318 (2001). * Asymmetry index defined as difference between left and right volumes divided by mean or [(L-R/Mean) x 100] (%). Age-matched reference charts measure total hippocampal volume (% of intracranial volume). See results from the analysis charts fo (more content not included)... [facility] MRI 3D BRAIN QUANTon 025 MRI 3D BRAIN QUANT * * *Final Report* * * DATE OF EXAM: Nov 07 2024 1:34PM [facility] 7867 - MRI 3D BRAIN QUANT / PROCEDURE REASON: Cognitive impairment, mild, so stated * * * * Physician Interpretation * * * * EXAMINATION: MRI BRAIN W QUANT WO IVCON, MRI 3D BRAIN QUANT CLINICAL HISTORY: Cognitive impairment TECHNIQUE: Axial NUVIA FLAIR, NUVIA T2, diffusion and susceptibility weighted imaging without contrast, using the ADNI dementia protocol and 3-D post-processing using the [email or web address] software at an independent workstation with concurrent physician supervision and images were created, reviewed and archived. MQ: [id number]_[email or web address] COMPARISON: None RESULT: QUALITATIVE: Acute Intracranial Process: None. Chronic Intracranial Process: Number of chronic lacunar infarcts: None Location of chronic lacunar infarcts: Not applicable Age related white matter changes (ARWMC) rating: White matter lesions: 1 Basal ganglia lesions: 0 Prior intracranial hemorrhage: Parenchymal microhemorrhages: 0 Other (siderosis/macrohemorrhage s (>10mm): Not Applicable Amyloid Related Imaging Abnormalities: ARIA-E: N/A ARIA-H Microhemorrhage: N/A ARIA-H Siderosis: N/A Qualitative brain and hippocampal volume loss for age: Cortex: Mild White Matter: Mild Hippocampi: Mild and Symmetric Ventricles: Commensurate with volume loss. Brain Parenchymal Signal and Morphology: The brain parenchyma is otherwise within normal limits of signal and morphology. There is no evidence of an intracranial mass or extraaxial fluid collection. Other Significant Findings: Trace bilateral mastoid effusions. Mild nuchal periosteal thickening of the bilateral maxillary sinuses. QUANTITATIVE: Exam Quality: Good for volumetric analysis. Segmentation: Considerable mismapping by visual inspection. Quantitative Data: Total Hippocampal Volume: Percentile for Age: 11 Asymmetry Index: 9.5 Inferior Lateral Vent Volume: Percentile for age: 85 Asymmetry Index: -53.1 Superior Lateral Vent Volume: Percentile for age: 58 Asymmetry Index: -6.18 Temporal Lobe Cortex Volume: Temporal Lobe Percentile for Age: 93 Temporal Lobe Asymmetry Index: 6.47 Frontal Lobe Cortex Volume: Frontal Lobe Percentile for Age: 38 Frontal Lobe Asymmetry Index: -2.31 Parietal Lobe Cortex Volume: Parietal Lobe Percentile for Age:48 Occipital Lobe Cortex Volume: Occipital Lobe Percentile for Age: 64 Whole Brain Volume Brain Percentile for Age: 62 Concordance between qualitative and quantitative hippocampal volume assessment: Concordant Change in brain volumes: No previous volumetric study for comparison See below for comparison of brain volumes in relation to the prior volumetric study: Not applicable. The prior study was reprocessed with the current algorithm version for adequate comparison. Please note that small variations may be due to standard measurement error. Brain Volume: Current percentile: N/A Previous percentile: N/A Hippocampal Volume: Current percentile: N/A Previous percentile: N/A Superior Lateral Ventricle Volume Change: Current percentile: N/A Previous percentile: N/A Inferior Lateral Ventricle Volume Change: Current percentile: N/A Previous percentile: N/A Mean hippocampal volume loss among normal elderly: 0.7% per year, (-0.3 to 1.7; Gelacio 2008; also David 2010). IMPRESSION: * No evidence of an acute intracranial process or intracranial mass. * Mild generalized volume loss. * Hippocampal volumes at the 11 percentile when compared to age matched normal controls by quantitative analysis. * Mild white matter disease which is nonspecific but likely reflective of chronic microvascular ischemia. * No evidence of parenchymal microhemorrhages by MRI. REFERENCES: White Matter Lesions: 0 = No lesions, including symmetrical, well-defined caps or bands 1 = Focal Lesions 2 = Beginning of [place] 3 = Diffuse Involvement of Entire Region Basal Ganglia Lesions: 0 = No Lesions 1 = 1 Focal Lesion (>5mm) 2 = >1 Focal Lesion (>5mm) 3 = Confluent Lesions David Foley et al. The clinical use of structural MRI in Alzheimer disease. Nature Reviews Neurology 6;67 (2010). Gelacio et al. Validation of a fully automated 3D hippocampal segmentation method using subjects with Alzheimer's disease mild cognitive impairment, and elderly controls. Neuroimage 43;59 (2008). Gita et al. A New Rating Scale for Age-Related White Matter Changes Applicable to MRI and CT. Stroke. 32:1318 (2001). * Asymmetry index defined as difference between left and right volumes divided by mean or [(L-R/Mean) x 100] (%). Age-matched reference charts measure total hippocampal volume (% of intracranial volume). See results from the analysis charts for details. Online Marketing Director: APRYL Transcribe Date/Time: Nov 07 2024 1:37P Dictated by : LUIS MARTINEZ MD This examination was interpreted and the report reviewed and (more content not included)... [facility] MRI BRAIN W QUANT WO IVCONon 11-07-2024 MRI BRAIN W QUANT WO IVCON * * *Final Report* * * DATE OF EXAM: Nov 07 2024 1:34PM [facility] [id number] - MRI BRAIN W QUANT WO IVCON / PROCEDURE REASON: Cognitive impairment, mild, so stated * * * * Physician Interpretation * * * * EXAMINATION: MRI BRAIN W QUANT WO IVCON, MRI 3D BRAIN QUANT CLINICAL HISTORY: Cognitive impairment TECHNIQUE: Axial NUVIA FLAIR, NUVIA T2, diffusion and susceptibility weighted imaging without contrast, using the ADNI dementia protocol and 3-D post-processing using the [email or web address] software at an independent workstation with concurrent physician supervision and images were created, reviewed and archived. MQ: [id number] COMPARISON: None RESULT: QUALITATIVE: Acute Intracranial Process: None. Chronic Intracranial Process: Number of chronic lacunar infarcts: None Location of chronic lacunar infarcts: Not applicable Age related white matter changes (ARWMC) rating: White matter lesions: 1 Basal ganglia lesions: 0 Prior intracranial hemorrhage: Parenchymal microhemorrhages: 0 Other (siderosis/macrohemorrhage s (>10mm): Not Applicable Amyloid Related Imaging Abnormalities: ARIA-E: N/A ARIA-H Microhemorrhage: N/A ARIA-H Siderosis: N/A Qualitative brain and hippocampal volume loss for age: Cortex: Mild White Matter: Mild Hippocampi: Mild and Symmetric Ventricles: Commensurate with volume loss. Brain Parenchymal Signal and Morphology: The brain parenchyma is otherwise within normal limits of signal and morphology. There is no evidence of an intracranial mass or extraaxial fluid collection. Other Significant Findings: Trace bilateral mastoid effusions. Mild nuchal periosteal thickening of the bilateral maxillary sinuses. QUANTITATIVE: Exam Quality: Good for volumetric analysis. Segmentation: Considerable mismapping by visual inspection. Quantitative Data: Total Hippocampal Volume: Percentile for Age: 11 Asymmetry Index: 9.5 Inferior Lateral Vent Volume: Percentile for age: 85 Asymmetry Index: -53.1 Superior Lateral Vent Volume: Percentile for age: 58 Asymmetry Index: -6.18 Temporal Lobe Cortex Volume: Temporal Lobe Percentile for Age: 93 Temporal Lobe Asymmetry Index: 6.47 Frontal Lobe Cortex Volume: Frontal Lobe Percentile for Age: 38 Frontal Lobe Asymmetry Index: -2.31 Parietal Lobe Cortex Volume: Parietal Lobe Percentile for Age:48 Occipital Lobe Cortex Volume: Occipital Lobe Percentile for Age: 64 Whole Brain Volume Brain Percentile for Age: 62 Concordance between qualitative and quantitative hippocampal volume assessment: Concordant Change in brain volumes: No previous volumetric study for comparison See below for comparison of brain volumes in relation to the prior volumetric study: Not applicable. The prior study was reprocessed with the current algorithm version for adequate comparison. Please note that small variations may be due to standard measurement error. Brain Volume: Current percentile: N/A Previous percentile: N/A Hippocampal Volume: Current percentile: N/A Previous percentile: N/A Superior Lateral Ventricle Volume Change: Current percentile: N/A Previous percentile: N/A Inferior Lateral Ventricle Volume Change: Current percentile: N/A Previous percentile: N/A Mean hippocampal volume loss among normal elderly: 0.7% per year, (-0.3 to 1.7; Gelacio 2008; also David 2010). IMPRESSION: * No evidence of an acute intracranial process or intracranial mass. * Mild generalized volume loss. * Hippocampal volumes at the 11 percentile when compared to age matched normal controls by quantitative analysis. * Mild white matter disease which is nonspecific but likely reflective of chronic microvascular ischemia. * No evidence of parenchymal microhemorrhages by MRI. REFERENCES: White Matter Lesions: 0 = No lesions, including symmetrical, well-defined caps or bands 1 = Focal Lesions 2 = Beginning of [place] 3 = Diffuse Involvement of Entire Region Basal Ganglia Lesions: 0 = No Lesions 1 = 1 Focal Lesion (>5mm) 2 = >1 Focal Lesion (>5mm) 3 = Confluent Lesions David Foley et al. The clinical use of structural MRI in Alzheimer disease. Nature Reviews Neurology 6;67 (2010). Gelacio et al. Validation of a fully automated 3D hippocampal segmentation method using subjects with Alzheimer's disease mild cognitive impairment, and elderly controls. Neuroimage 43;59 (2008). Wahlund et al. A New Rating Scale for Age-Related White Matter Changes Applicable to MRI and CT. Stroke. 32:1318 (2001). * Asymmetry index defined as difference between left and right volumes divided by mean or [(L-R/Mean) x 100] (%). Age-matched reference charts measure total hippocampal volume (% of intracranial volume). See results from the analysis charts for details. Online Marketing Director: [facility] Transcribe Date/Time: Nov 07 2024 1:37P Dictated by : LUIS MARTINEZ MD This examination was interpreted and the report reviewe (more content not included)... [facility] No Panel Informationon 11-07 IMPRESSION: * No evidence of an acute intracranial process or intracranial mass. * Mild generalized volume loss. * Hippocampal volumes at the 11 percentile when compared to age matched normal controls by quantitative analysis. * Mild white matter disease which is nonspecific but likely reflective of chronic microvascular ischemia. * No evidence of parenchymal microhemorrhages by MRI. REFERENCES: White Matter Lesions: 0 = No lesions, including symmetrical, well-defined caps or bands 1 = Focal Lesions 2 = Beginning of [place] 3 = Diffuse Involvement of Entire Region Basal Ganglia Lesions: 0 = No Lesions 1 = 1 Focal Lesion (>5mm) 2 = >1 Focal Lesion (>5mm) 3 = Confluent Lesions David Foley, et al. The clinical use of structural MRI in Alzheimer disease. Nature Reviews Neurology 6;67 (2010). Gelacio et al. Validation of a fully automated 3D hippocampal segmentation method using subjects with Alzheimer's disease mild cognitive impairment, and elderly controls. Neuroimage 43;59 (2008). Candyhlund et al. A New Rating Scale for Age-Related White Matter Changes Applicable to MRI and CT. Stroke. 32:1318 (2001). * Asymmetry index defined as difference between left and right volumes divided by mean or [(L-R/Mean) x 100] (%). Age-matched reference charts measure total hippocampal volume (% of intracranial volume). See results from the analysis charts for details. Online Marketing Director: [facility] Transcribe Date/Time: Nov 07 2024 1:37P Dictated by : LUIS MARTINEZ MD This examination was interpreted and the report reviewed and electronically signed by: LUIS MARTINEZ MD on Nov 07 2024 2:06PM [facility] Radiology Study observation (narrative) [facility] No Panel InformationOrdered By: [facility] Provider on 11-07-2024 [facility] [id number] 11-01-2024 [id number] HNO ID: [id number] Author: DANNY TUCKER PT Service: ? Author Type: Physical Therapist Type: [id number] Filed: 11/01/2024 13:07 Note Text: [facility] Physical Therapy Plan of Care Certification Patient Name: Susan Calderon : 1955 [facility] #: [id number] Date: 11/01/2024 To: Ruma Westfall MD From Therapist: Danny Tucker PT RE: Patient Certification/ Recertification Your review, approval and electronic signature are required in order to comply with Payor: [employer] / Plan: [employer] PPO / Product Type: PPO / regulations. The identified Physical Therapy PLAN OF CARE for the patient is as follows: R26.81 Gait instability (primary encounter diagnosis) PLAN OF CARE: Assessment: Susan Calderon is unsure why she is at physical therapy, states she needs spine surgery. Was referred here for diagnosis of gait instability and reports she does have increased LBP and B Leg symptoms with upright activities such as walking, standing, stairs. Current function and pain interferes with walking, walking in the community, stair negotiation, standing, sleeping, physical activities . Chart review reveals possible history of memory issues recently. The patient presents with impairments in ADL's, gait, independence in exercise, functional mobility, overall function, patient reported outcome measures, posture, range of motion, strength, and symptom management. PROMIS? (Patient-Reported Outcomes Measurement Information System) scores were reviewed and identified as a rehabilitation concern. Prognosis for therapy is Poor due to: clinical presentation, chronic nature of impairments, memory deficits, poor historian . The patient will benefit from skilled therapy services to meet the goals established for this plan of care as noted below. Classification Pain Mechanism Classification: Neuropathic Low Back Pain Classification: Symptom Modulation Goals for Episode of Care: established 11/01/24 Patient reported outcome of physical function will increase T-score by a minimum 5 points. Dunn in home exercise program. Patient will decrease pain rating by 2 points to meet minimal clinical important difference for numeric pain rating scale. Patient will improve pain free lumbar range of motion to minimal limitation or better to improve ability to perform dressing activities. Patient will endorse ability to walk further distance without back or leg pain. Sleep through night without pain/symptoms. Patient Goals: Alleviate Pain. Time Frame for Goals and Treatment : 12/13/24 Planned Interventions, Frequency, and Duration: Current Frequency: 1x/week Duration: 4 weeks Total Number of Visits Planned: 4 Planned Treatment Interventions: Therapeutic exercise (80219), Neuromuscular re-education (94040), Manual therapy (88993), Therapeutic activities (64195), Self-detention management (53032), Gait Training (49930), Body Mechanics Training, Patient/Family/Caregiver Education PLAN FOR NEXT VISIT: Review, correct and progress HEP to tolerance. DIscuss recent symptoms. Patient demonstrates poor understanding of plan of care and treatment. The above goals and plan of care were discussed and agreed upon by patient/family. For further details regarding this patient refer to the Physical Therapy electronically documented visit dated 11/01/2024. Provider Attestation I have reviewed the treatment plan for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 not have a living will and is unsure if she has a DNR order. She expresses a desire to know if her memory issues are related to age or something else. PAST MEDICAL HISTORY Diagnosis Date Allergic rhinitis, cause unspecified Allergic rhinitis Arthritis Carpal tunnel syndrome Degeneration of intervertebral disc, site unspecified Depressive disorder, not elsewhere classified Esophageal reflux Generalized anxiety disorder Anxiety, Generalized Generalized osteoarthrosis, unspecified site Hypercholesteremia Unspecified essential hypertension Current Outpatient Medications Medication Sig nitrofurantoin monohydrate and macrocrystal (MACROBID) 100 mg capsule Take 1 capsule by mouth two times a day for 5 days. cyclobenzaprine (FLEXERIL) 5 mg tablet Take 1-2 tablets by mouth three times a day as needed (cramping and muscle spasm). atenolol (TENORMIN) 25 mg tablet Take 1 tablet by mouth once daily. gabapentin (NEURONTIN) 400 mg capsule Take 1 capsule by mouth three times a day for 180 days. atorvastatin (LIPITOR) 10 mg tablet Take 1 tablet by mouth daily at bedtime. montelukast (SINGULAIR) 10 mg tablet Take 1 tablet by mouth daily at bedtime. ubidecarenone Q-10 (CO Q-10) 10 mg cap Take by mouth two times a day. lqvhibfs-izdbgn-whdlaajo acid (COLLAGEN 1500 PLUS C) 500 mg-800 mcg- 50 mg cap Take by mouth. lisinopril (ZESTRIL) 40 mg tablet Take 1 tablet by mouth once daily. DOSE CHANGE - TAKE ONE DAILY omega-3 DHA-EPA (FISH OIL) 1,200 (144-216) mg capsule Take 1 capsule by mouth daily with breakfast. D3/red wine/resveratrol/malt (SUPER-D3+ ORAL) Take 1 Each by mouth once daily. magnesium oxide 400 mg magnesium tab Take 1 Each by mouth once daily. niacin (NIACIN) 500 mg tablet Take 500 mg by mouth daily with breakfast. aspirin 81 mg chewable tablet Take 81 mg by mouth once daily. calcium carbonate/vitamin D3 (CALCIUM WITH VITAMIN D ORAL) Take by mouth. 1200 with 1000 of D OTC NUTRITIONAL SUPPLEMENT Prevagen glucosamine/chondroitin/C/ Juice (GLUCOSAMINE-CHONDROITIN CO (more content not included)... Normal [facility] KIDNEY/BLADDERon 09-22-19 25 US KIDNEY/BLADDER * * *Final Report* * * DATE OF EXAM: Sep 22 2024 2:11PM U [id number] - KIDNEY/BLADDER / PROCEDURE REASON: multiple diagnoses * * * * Physician Interpretation * * * * EXAMINATION: RENAL ULTRASOUND CLINICAL HISTORY: 69 years old Female with Urinary tract infection without hematuria, site unspecified. Acute left-sided low back pain without sciatica TECHNIQUE: Sonography of the kidneys and urinary bladder was performed. Images were obtained and stored in a permanent archive. MQ: UR_1 COMPARISON: None RESULT: Right Kidney: -Renal length: 12.6 cm -Parenchyma: Normal parenchymal echogenicity. Normal parenchymal thickness. -Collecting system: No hydronephrosis. Extrarenal pelvis. -Calculus: No echogenic, shadowing calculus. -Lesion: None. Left Kidney: Poor visualization due to poor acoustic windows and size of the LEFT kidney. -Renal length: 5.3 cm -Parenchyma: Normal parenchymal echogenicity. Normal parenchymal thickness. -Collecting system: No hydronephrosis. -Calculus: No apparent echogenic, shadowing calculus. -Lesion: None apparent. Bladder: Normal sonographic appearance. Prevoid urinary bladder volume: 473 mL Post void residual volume: 63 mL IMPRESSION: Suboptimal visualization. No hydronephrosis. LEFT kidney appears atrophic. Online Marketing Director: APRYL Transcribe Date/Time: Sep 24 2024 8:25A Dictated by : COLLEEN HE DO This examination was interpreted and the report reviewed and electronically signed by: COLLEEN HE DO on Sep 24 2024 8:28AM EST [id number] Normal [facility] CNOVon 09-21-2024 CNOV Office Visit (INTMWS ) -- SUSAN CALDERON ([id number]) 1955 F TXT Date Time Provider Department 09/21/24 4:20 PM PRADEEP BLANTON INTMWS During your visit today, we recorded the following information about you: Temperature Pulse Respiration Blood pressure 99.2 degrees 80/minute 16/minute 136/82 Weight 100.5 kg Pradeep Blanton MD 09/22/2024 12:28 AM Signed This note was created using Unbound. Subjective Patient presents with: Express Care follow-up Susan Calderon is a 69 year old female who developed progressive right lower back pain, sharp, aggravated by bending, sitting up, and movement about 3 weeks ago. She had been moving stuff around her house, but denied any specific injury. She had a history of back pain and back surgeries. Pain progressed, and was associated with urinary urgency and hesitancy so she went to 09/11/24 where she was treated with Medrol pack, and urine sent for culture. She was then treated for a urinary tract infection. Her symptoms were resolving but started flaring up again when the antibiotic finished. Review of Systems Constitutional: Negative for chills, diaphoresis and fever. Respiratory: Negative for shortness of breath. Gastrointestinal: Negative for abdominal pain, nausea and vomiting. Genitourinary: Positive for dysuria, flank pain, frequency and urgency. Negative for hematuria. Musculoskeletal: Positive for back pain and gait problem. Neurological: Negative for weakness and numbness. ACTIVE PROBLEM LIST Primary Hypertension Anxiety State, Unspecified Generalized Anxiety Disorder Carpal Tunnel Syndrome Generalized Osteoarthrosis, Unspecified Site Esophageal Reflux Enlargement of Lymph Nodes Asthma Degeneration of Lumbar Intervertebral Disc Dysmetabolic Syndrome Pruritus--back Candidal Intertrigo Hypercholesteremia Small Bowel Obstruction (Hcc) S/P Small Bowel Resection Cigarette Smoker Obesity, Class II, Bmi 35-39.9 Osteopenia of Both Hips Macrocytic Anemia Allergic Rhinitis Elevated Ferritin Class 2 Obesity Due to Excess Calories With Body Mass Index (Bmi) of 37.0 to 37.9 in Adult Screening for Colon Cancer Social History Tobacco Use Smoking status: Former Current packs/day: 0.00 Types: Cigarettes Quit date: 07/25/2022 Years since quittin.1 Smokeless tobacco: Never Tobacco comments: Cigarette every 2-3 days( 02/19/23 ) February 19, 2023 Practically quit smoking. Just one the other day and made lightheaded. Vaping Use Vaping status: Never Used Substance Use Topics Alcohol use: Yes Comment: weekend has beer usually Drug use: No Current Outpatient Medications Medication Sig cyclobenzaprine (FLEXERIL) 5 mg tablet Take 1-2 tablets by mouth three times a day as needed (cramping and muscle spasm). atenolol (TENORMIN) 25 mg tablet Take 1 tablet by mouth once daily. gabapentin (NEURONTIN) 400 mg capsule Take 1 capsule by mouth three times a day for 180 days. atorvastatin (LIPITOR) 10 mg tablet Take 1 tablet by mouth daily at bedtime. montelukast (SINGULAIR) 10 mg tablet Take 1 tablet by mouth daily at bedtime. ubidecarenone Q-10 (CO Q-10) 10 mg cap Take by mouth two times a day. nrzxthlh-jnffhg-gtmdrjuo acid (COLLAGEN 1500 PLUS C) 500 mg-800 mcg- 50 mg cap Take by mouth. lisinopril (ZESTRIL) 40 mg tablet Take 1 tablet by mouth once daily. DOSE CHANGE - TAKE ONE DAILY omega-3 DHA-EPA (FISH OIL) 1,200 (144-216) mg capsule Take 1 capsule by mouth daily with breakfast. D3/red wine/resveratrol/malt (SUPER-D3+ ORAL) Take 1 Each by mouth once daily. magnesium oxide 400 mg magnesium tab Take 1 Each by mouth once daily. niacin (NIACIN) 500 mg tablet Take 500 mg by mouth daily with breakfast. aspirin 81 mg chewable tablet Take 81 mg by mouth once daily. calcium carbonate/vitamin D3 (CALCIUM WITH VITAMIN D ORAL) Take by mouth. 1200 with 1000 of D OTC NUTRITIONAL SUPPLEMENT Prevagen glucosamine/chondroitin/C/ Juice (GLUCOSAMINE-CHONDROITIN COMPLX ORAL) Take by mouth. VITAMIN E ORAL Take 1 capsule by mouth once daily. vitamin B complex (SUPER B COMPLEX ORAL) Take 1 tablet by mouth once daily. fluticasone (FLONASE) 50 mcg/actuation nasal spray SPRAY 2 SPRAYS INTO EACH NOSTRIL ONCE DAILY - RINSE MOUTH AFTER USE fluticasone-salmeterol (ADVAIR DISKUS) 250-50 mcg/dose inhaler Inhale 1 Puff as instructed twice daily. albuterol HFA (PROVENTIL HFA) 90 mcg/actuation inhaler Inhale 2 Puffs as instructed every 4 hours as needed for wheezing/shortness of breath. naproxen sodium (ANAPROX) 220 mg tablet Take 220 mg by mouth once daily as needed. (Patient not taking: Reported on 09/11/2024) acetaminophen/diphenhydram ine (PM PAIN RELIEF ORAL) Take by mouth. (Patient not taking: Reported on 09/11/2024) ascorbic acid, vitamin C, (VITAMIN C) 500 mg tablet Take 500 mg by mouth once daily. (Patient not taking: Repo (more content not included)... Normal [facility] UA DIP, URINE (POC)on 2024 BILIRUBIN UA (POCT) Negative Negative [facility] CLARITY UA (POCT) Clear [facility] COLOR UA (POCT) Yellow [facility] GLUCOSE UA (POCT) Negative Negative mg/dL [facility] Hemoglobin Ql (U) Trace-intact Abnormal Negative [facility] Interpretation and review of laboratory results Abnormal [facility] KETONE UA (POCT) Negative Negative mg/dL [facility] LEUKOCYTES UA (POCT) Negative Negative [facility] NITRITE UA (POCT) Negative Negative [facility] PH UA (POCT) 8.0 4.5 - 8.0 [facility] Protein Ql (U) Negative Negative mg/dL [facility] SPECIFIC GRAVITY UA (POCT) 1.020 1.005 - 1.030 [facility] UROBILINOGEN UA (POCT) 0.2 Scarlet l E.U./dL [facility] Location:[address], [id number] [place] [address] [facility] SUSAN CALDERON ([id number]) 1955 F TXT Date Time Provider Department 09/13/24 JEAN KIM [facility] During your visit today, we recorded the following information about you: Jean Kim PA 09/13/2024 8:19 AM Signed Please let patient know her urine culture did reveal a UTI. I have sent an antibiotic [facility] her [facility]. Take this as prescribed. Rosita Vazquez RN 09/13/2024 9:05 AM Signed Patient contacted and given message below and verbalized understanding. Rosita Vazquez RN Allergies As of Date: 09/13/2024 Noted Allergy Reaction CEPHALOSPORINS 02/27/2019 12 - Shortness of Breath PENICILLINS 04/17/2005 10 - Anaphylaxis 12 - Shortness of Breath Comments: rash DOXYCYCLINE 02/27/2019 14 - Other: See Comments Comments: Teeth discoloration ENTEX PSE (PSEUDOEPHEDRINE-GUAIFE* 5 - Intolerance Comments: insomnia,jittery LEVAQUIN (LEVOFLOXACIN) 04/17/2005 14 - Other: See Comments Comments: muscle pain, heel pain (plantar side) RELAFEN (NABUMETONE) 04/17/2005 7 - Swelling Date Reviewed: 09/11/2024 Reviewed by: Delilah Carpenter MA - Fully Assessed Reason for Visit: Results [95] Order(s):nitrofurantoin monohydrate and macrocrystal (MACROBID) 100 mg capsuleTake 1 capsule by mouth two times a day for 5 days.Disp: 10 capsuleRfl: 0 Prescriptions as of 09/13/2024 - nitrofurantoin monohydrate and macrocrystal (MACROBID) 100 mg capsule Take 1 capsule by mouth two times a day for 5 days. - methylPREDNISolone (MEDROL, ALONDRA,) 4 mg Dose-Pack Follow dosing instructions, take with food. - cyclobenzaprine (FLEXERIL) 5 mg tablet Take 1-2 tablets by mouth three times a day as needed (cramping and muscle spasm). - atenolol (TENORMIN) 25 mg tablet Take 1 tablet by mouth once daily. - gabapentin (NEURONTIN) 400 mg capsule Take 1 capsule by mouth three times a day for 180 days. - atorvastatin (LIPITOR) 10 mg tablet Take 1 tablet by mouth daily at bedtime. - montelukast (SINGULAIR) 10 mg tablet Take 1 tablet by mouth daily at bedtime. - ubidecarenone Q-10 (CO Q-10) 10 mg cap Take by mouth two times a day. - ebrpegrb-fougkz-wqgvhzwi acid (COLLAGEN 1500 PLUS C) 500 mg-800 mcg- 50 mg cap Take by mouth. - lisinopril (ZESTRIL) 40 mg tablet Take 1 tablet by mouth once daily. DOSE CHANGE - TAKE ONE DAILY - omega-3 DHA-EPA (FISH OIL) 1,200 (144-216) mg capsule Take 1 capsule by mouth daily with breakfast. - D3/red wine/resveratrol/malt (SUPER-D3+ ORAL) Take 1 Each by mouth once daily. - magnesium oxide 400 mg magnesium tab Take 1 Each by mouth once daily. - niacin (NIACIN) 500 mg tablet Take 500 mg by mouth daily with breakfast. - aspirin 81 mg chewable tablet Take 81 mg by mouth once daily. - calcium carbonate/vitamin D3 (CALCIUM WITH VITAMIN D ORAL) Take by mouth. 1200 with 1000 of D - OTC NUTRITIONAL SUPPLEMENT Prevagen - glucosamine/chondroitin/C/ Juice (GLUCOSAMINE-CHONDROITIN COMPLX ORAL) Take by mouth. - naproxen sodium (ANAPROX) 220 mg tablet Take 220 mg by mouth once daily as needed. - acetaminophen/diphenhydram ine (PM PAIN RELIEF ORAL) Take by mouth. - VITAMIN E ORAL Take 1 capsule by mouth once daily. - vitamin B complex (SUPER B COMPLEX ORAL) Take 1 tablet by mouth once daily. - ascorbic acid, vitamin C, (VITAMIN C) 500 mg tablet Take 500 mg by mouth once daily. - fluticasone (FLONASE) 50 mcg/actuation nasal spray SPRAY 2 SPRAYS INTO EACH NOSTRIL ONCE DAILY - RINSE MOUTH AFTER USE - fluticasone-salmeterol (ADVAIR DISKUS) 250-50 mcg/dose inhaler Inhale 1 Puff as instructed twice daily. - albuterol HFA (PROVENTIL HFA) 90 mcg/actuation inhaler Inhale 2 Puffs as instructed every 4 hours as needed for wheezing/shortness of breath. Problem List As Of Date 09/13/2024 Noted Resolved Depressive disorder, not elsewhere classified [*04/17/2005 01/26/2021 Primary hypertension [I10] 04/17/2005 ANXIETY STATE NOS [F41.1] 04/18/2005 GENERALIZED ANXIETY DIS [F41.1] CARPAL TUNNEL SYNDROME [G56.00] GENERAL OSTEOARTHROSIS [M15.9] ESOPHAGEAL REFLUX [K21.9] ENLARGEMENT LYMPH NODES [R59.9] 05/31/2006 Asthma [J45.909] 06/14/2006 Degeneration of lumbar intervertebral disc [M51* Dysmetabolic syndrome [E88.810] 07/31/2011 Pruritus--back [L29.9] 02/19/2012 Candidal intertrigo [B37.2] 02/19/2012 Hypercholesteremia [E78.00] Small bowel obstruction (HCC) [K56.609] 07/30/2017 S/P small bowel resection [Z90.49] 07/30/2017 Cigarette smoker [F17.210] 11/16/2018 Obesity, Class II, BMI 35-39.9 [E66.812] 12/18/2022 Osteopenia of both hips [M85.851, M85.852] 02/19/2023 Macrocytic anemia [D53.9] 02/19/2023 Allergic rhinitis [J30.9] 02/19/2023 Elevated ferritin [R79.89] 02/21/2024 Class 2 obesity due to excess calories with bod*02/21/2024 Screening for colon cancer [Z12.11] 05/24/2024 Prescriptions ordered this encounter Disp Refills S (more content not included)... Normal [facility] Bacteria Culton 5 Bacteria identified Cx Nom (U) ORGANISM ID: 1 >=100,000 CFU/ml Escherichia coli ORGANISM ID: 1 (ESCHERICHIA COLI) ANTIBIOTIC INTERPRETATION MARK STATUS REFERENCE RANGE Ampicillin S <=2 F Susceptible <=8 , Intermediate >8 , Resistant >16 Cefazolin S <=4 F Susceptible 0-16 , Intermediate <0 or >16 , Resistant >16 For uncomplicated urinary tract infections, cefazolin results can be used to predict susceptibility or resistance to cephalexin. Ceftriaxone S <=1 F Susceptible <=1 , Intermediate >1 , Resistant >=4 Cefepime S <=1 F Susceptible <=2 , Susceptible-Dose Dependent >2 , Resistant >=16 Ertapenem S <=0.5 F Susceptible <=0.5 , Intermediate >.5 , Resistant >1 Meropenem S <=0.25 F Susceptible <=1 , Intermediate >1 , Resistant >2 Ampicillin/Sulbact S <=2 F Susceptible <=8 , Intermediate >8 , Resistant >16 Piperacillin/Tazobac S <=4 F Susceptible <16 , Susceptible-Dose Dependent >=16 , Resistant >=32 Gentamicin S <=1 F Susceptible <=2 , Intermediate >2 , Resistant >=8 Tobramycin S <=1 F Susceptible <4 , Intermediate >=4 , Resistant >=8 Trimeth sulfameth S <=20 F Susceptible <=40 , Resistant >40 Ciprofloxacin S <=0.25 F Susceptible <0.5 , Intermediate >=.5 , Resistant >=1 Nitrofurantoin S <=16 F Susceptible <=32 , Intermediate >32 , Resistant >64 Abnormal [facility] Comment on above: Performed By: #### 6 30-4 ####[facility] LABIA [id number] [address] OF [facility] CNOVon 09-11-2024 CNOV Office Visit (UCWSTR ) -- SUSAN CALDERON ([id number]) 1955 F TXT Date Time Provider Department 09/11/24 9:30 AM JEAN KIM UCWSTR During your visit today, we recorded the following information about you: Temperature Pulse Respiration Blood pressure 98.2 degrees 75/minute 21/minute 128/80 Weight 98.9 kg Jean Kim PA 09/11/2024 10:44 AM Signed This note was created using Unbound. Subjective Susan Calderon is a 69 year old female. HPI 69-year-old female presents for low back pain. Patient states she has been having low back pain for the past few weeks. She was moving furniture and feels like this may have flared up her back. She is having right-sided low back pain radiating towards her right hip. Patient does have history of lumbar issues, has had surgery on low back in the past. She denies any new fall. No fevers. No numbness or tingling in the legs. Still able to ambulate. She has prescribed Neurontin and Flexeril by her primary care doctor, but does not seem to be helping with this pain. She is also been taking Advil for the pain. She states that she has been having some urinary frequency as well. No blood in the urine, dysuria, fevers, vomiting. PAST MEDICAL HISTORY Diagnosis Date Allergic rhinitis, cause unspecified Allergic rhinitis Arthritis Carpal tunnel syndrome Degeneration of intervertebral disc, site unspecified Depressive disorder, not elsewhere classified Esophageal reflux Generalized anxiety disorder Anxiety, Generalized Generalized osteoarthrosis, unspecified site Hypercholesteremia Unspecified essential hypertension PAST SURGICAL HISTORY Procedure Laterality Date ABDOMINAL SURGERY HX COLONOSCOPY FLX DX W/COLLJ SPEC WHEN PFRMD 02/07/2014 Colonoscopy LAPAROSCOPIC HEMICOLECTOMY 2017 LIG/TRNSXJ FLP TUBE ABDL/VAG APPR UNI/BI Tubal ligation PAST SURGICAL HISTORY OF 09/16/2002 spinal fusion lumbar L3-S1 PAST SURGICAL HISTORY OF 08/16/1998 bilateral heel spurs PAST SURGICAL HISTORY OF 08/16/2002 debridment lumbar surgical site- staph TOTAL ABDOMINAL HYSTERECT W/WO RMVL TUBE OVARY 03/16/2002 Hysterectomy, SOFI ALLERGIES Cephalosporins, Penicillins, Doxycycline, Entex Pse [Pseudoephedrine-Guaifenes in], Levaquin [Levofloxacin], and Relafen [Nabumetone] MEDICATIONS cyclobenzaprine (FLEXERIL) 5 mg tablet Take 1-2 tablets by mouth three times a day as needed (cramping and muscle spasm). atenolol (TENORMIN) 25 mg tablet Take 1 tablet by mouth once daily. gabapentin (NEURONTIN) 400 mg capsule Take 1 capsule by mouth three times a day for 180 days. atorvastatin (LIPITOR) 10 mg tablet Take 1 tablet by mouth daily at bedtime. montelukast (SINGULAIR) 10 mg tablet Take 1 tablet by mouth daily at bedtime. ubidecarenone Q-10 (CO Q-10) 10 mg cap Take by mouth two times a day. gwlbwyqh-mcecyc-nghkvirj acid (COLLAGEN 1500 PLUS C) 500 mg-800 mcg- 50 mg cap Take by mouth. lisinopril (ZESTRIL) 40 mg tablet Take 1 tablet by mouth once daily. DOSE CHANGE - TAKE ONE DAILY omega-3 DHA-EPA (FISH OIL) 1,200 (144-216) mg capsule Take 1 capsule by mouth daily with breakfast. D3/red wine/resveratrol/malt (SUPER-D3+ ORAL) Take 1 Each by mouth once daily. magnesium oxide 400 mg magnesium tab Take 1 Each by mouth once daily. niacin (NIACIN) 500 mg tablet Take 500 mg by mouth daily with breakfast. aspirin 81 mg chewable tablet Take 81 mg by mouth once daily. calcium carbonate/vitamin D3 (CALCIUM WITH VITAMIN D ORAL) Take by mouth. 1200 with 1000 of D OTC NUTRITIONAL SUPPLEMENT Prevagen glucosamine/chondroitin/C/ Juice (GLUCOSAMINE-CHONDROITIN COMPLX ORAL) Take by mouth. VITAMIN E ORAL Take 1 capsule by mouth once daily. vitamin B complex (SUPER B COMPLEX ORAL) Take 1 tablet by mouth once daily. fluticasone (FLONASE) 50 mcg/actuation nasal spray SPRAY 2 SPRAYS INTO EACH NOSTRIL ONCE DAILY - RINSE MOUTH AFTER USE albuterol HFA (PROVENTIL HFA) 90 mcg/actuation inhaler Inhale 2 Puffs as instructed every 4 hours as needed for wheezing/shortness of breath. naproxen sodium (ANAPROX) 220 mg tablet Take 220 mg by mouth once daily as needed. (Patient not taking: Reported on 09/11/2024) acetaminophen/diphenhydram ine (PM PAIN RELIEF ORAL) Take by mouth. (Patient not taking: Reported on 09/11/2024) ascorbic acid, vitamin C, (VITAMIN C) 500 mg tablet Take 500 mg by mouth once daily. (Patient not taking: Reported on 09/11/2024) fluticasone-salmeterol (ADVAIR DISKUS) 250-50 mcg/dose inhaler Inhale 1 Puff as instructed twice daily. FAMILY HISTORY Problem Relation Age of Onset other (cerebral aneurysm) Mother Cancer Father lung other (cerebral aneurysm) Maternal Grandfather No Known Problems Brother Social History Tobacco Use Smoking status: Former Current packs/day: 0.00 Types: Cigarettes Quit date: 07/25/2022 Years since quittin.1 Smokeless (more content not included)... Normal [facility] UA DIP, URINE (POC)on 2024 BILIRUBIN UA (POCT) Negative Negative [facility] CLARITY UA (POCT) Clear [facility] COLOR UA (POCT) Yellow [facility] GLUCOSE UA (POCT) Negative Negative mg/dL [facility] Hemoglobin Ql (U) Negative Negative [facility] Interpretation and review of laboratory results Abnormal [facility] KETONE UA (POCT) Negative Negative mg/dL [facility] LEUKOCYTES UA (POCT) Trace Abnormal Negative [facility] NITRITE UA (POCT) Negative Negative [facility] PH UA (POCT) 6.5 4.5 - 8.0 [facility] Protein Ql (U) Negative Negative mg/dL [facility] SPECIFIC GRAVITY UA (POCT) 1.015 1.005 - 1.030 [facility] UROBILINOGEN UA (POCT) 0.2 Scarlet l E.U./dL [facility] Location:[address], [id number] [place] [address] [facility] XR LUMBAR 3V AP/LAT/L5-S1on 09-11-2024 XR LUMBAR 3V AP/LAT/L5-S1 * * *Final Report* * * DATE OF EXAM: Sep 11 2024 10:20AM WOX [id number] - XR LUMBAR 3V AP/LAT/L5-S1 / PROCEDURE REASON: Acute midline low back pain with right-sided sciatica * * * * Physician Interpretation * * * * X-ray lumbosacral spine, AP, lateral and L5-S1 views Indication: Acute midline low back pain with right-sided sciatica Comparison: X-ray lumbar spine 10/15/2020 Counting reference: Lumbosacral junction. For the purposes of this report, L5S1 is considered the last lumbar type disc space and L4-5 is considered the level of the iliac crest. Postoperative changes from posterior fusion of L4-S1 with spinal rods and transpedicular screws. Hardware is intact. Alignment is unchanged. Grade 1 retrolisthesis of L3 on L4. No acute fracture. There is degenerative disc disease at multiple levels of the lumbar spine with endplate sclerosis, intervertebral disc space narrowing and osteophyte formation. Sacroiliac joints appear normal. IMPRESSION: 1. No acute fracture 2. Unchanged retrolisthesis of L3 on L4 3. Degenerative disease of the lumbar spine Online Marketing Director: [facility] Transcribe Date/Time: Sep 11 2024 10:24A Dictated by : MARK MIXON MD This examination was interpreted and the report reviewed and electronically signed by: MARK MIXON MD on Sep 11 2024 10:28AM EST [id number] Normal [facility] XR Lumbar spine 3 Viewson IMPRESSION: 1. No acute fracture 2. Unchanged retrolisthesis of L3 on L4 3. Degenerative disease of the lumbar spine Online Marketing Director: [facility] Transcribe Date/Time: Sep 11 2024 10:24A Dictated by : MARK MIXON MD This examination was interpreted and the report reviewed and electronically signed by: MARK MIXON MD on Sep 11 2024 10:28AM EST DIVISION OF RADIOLOGY * * *Final Report* * * DATE OF EXAM: Sep 11 2024 10:20AM WOX 5228 - XR LUMBAR 3V AP/LAT/L5-S1 / PROCEDURE REASON: Acute midline low back pain with right-sided sciatica * * * * Physician Interpretation * * * * X-ray lumbosacral spine, AP, lateral and L5-S1 views Indication: Acute midline low back pain with right-sided sciatica Comparison: X-ray lumbar spine 10/15/2020 Counting reference: Lumbosacral junction. For the purposes of this report, L5S1 is considered the last lumbar type disc space and L4-5 is considered the level of the iliac crest. Postoperative changes from posterior fusion of L4-S1 with spinal rods and transpedicular screws. Hardware is intact. Alignment is unchanged. Grade 1 retrolisthesis of L3 on L4. No acute fracture. There is degenerative disc disease at multiple levels of the lumbar spine with endplate sclerosis, intervertebral disc space narrowing and osteophyte formation. Sacroiliac joints appear normal. DIVISION OF RADIOLOGY Provider, Debbie Gauthier - 09/11/2024 * * *Final Report* * * DATE OF EXAM: Sep 11 2024 10:20AM WOX 5228 - XR LUMBAR 3V AP/LAT/L5-S1 / PROCEDURE REASON: Acute midline low back pain with right-sided sciatica * * * * Physician Interpretation * * * * X-ray lumbosacral spine, AP, lateral and L5-S1 views Indication: Acute midline low back pain with right-sided sciatica Comparison: X-ray lumbar spine 10/15/2020 Counting reference: Lumbosacral junction. For the purposes of this report, L5S1 is considered the last lumbar type disc space and L4-5 is considered the level of the iliac crest. Postoperative changes from posterior fusion of L4-S1 with spinal rods and transpedicular screws. Hardware is intact. Alignment is unchanged. Grade 1 retrolisthesis of L3 on L4. No acute fracture. There is degenerative disc disease at multiple levels of the lumbar spine with endplate sclerosis, intervertebral disc space narrowing and osteophyte formation. Sacroiliac joints appear normal. IMPRESSION IMPRESSION: 1. No acute fracture 2. Unchanged retrolisthesis of L3 on L4 3. Degenerative disease of the lumbar spine Online Marketing Director: [facility] Transcribe Date/Time: Sep 11 2024 10:24A Dictated by : MARK MIXON MD This examination was interpreted and the report reviewed and electronically signed by: MARK MIXON MD on Sep 11 2024 10:28AM EST [facility] Radiology Study observation (narrative) [facility] XR Lumbar spine 3 ViewsOrder ed By: [facility]cf Provider on 09-11-2024 [facility] 25(OH)D3 SerPl-mCncon 2024 25-hydroxyvitamin D3 [Mass/Vol] 61.9 ng/mL Normal 31.0-80.0 [facility] Comment on above: Order Comment: Speci men Type: BLOOD SPECIMENOrdering Facility: [facility] Address: [address] [place] [address] Result Comment: Clas sification of 25 OH Vitamin D status: Deficiency/Insufficiency: < or = 30 ng/ml. Sufficiency/Optimal Levels: 31-80 ng/mL Toxicity: > 100 ng/mL. Test performed by chemiluminescent immunoassay. Performed By: #### 1 989-3 ####[facility] LABIA [id number] [place] [address] [place] CBC panel Auto (Bld)on 09-08 Erythrocyte distribution width (RBC) [Ratio] 13.2 % Normal 11.5-15.0 [facility] Comment on above: Order Comment: Speci men Type: BLOOD SPECIMENOrdering Facility: [facility] Address: [address] [place] [address] Performed By: #### 5 8410-2 ####[facility] LABIA [id number] [address] [place] Hematocrit (Bld) [Volume fraction] 42.6 % Normal 36.0-46.0 [facility] Comment on above: Order Comment: Speci men Type: BLOOD SPECIMENOrdering Facility: [facility] Address: [address] [place] [address] Performed By: #### 5 8410-2 ####[facility] LABIA [id number] [place] [address] [place] Hemoglobin (Bld) [Mass/Vol] 13.3 g/dL Normal 11.5-15.5 [facility] Comment on above: Order Comment: Speci men Type: BLOOD SPECIMENOrdering Facility: [facility] Address: [address] [place] [address] Performed By: #### 5 8410-2 ####[facility] LABIA [id number] [place] [address] [place] MCH (RBC) [Entitic mass] 29.6 pg Normal 26.0-34.0 [facility] Comment on above: Order Comment: Speci men Type: BLOOD SPECIMENOrdering Facility: [facility] Address: [address] [place] [address] Performed By: #### 5 8410-2 ####[facility] LABIA [id number] [place] [address] [place] MCHC (RBC) [Mass/Vol] 31.2 g/dL Normal 30.5-36.0 [facility] Comment on above: Order Comment: Speci men Type: BLOOD SPECIMENOrdering Facility: [facility] Address: [address] [place] [address] Performed By: #### 5 8410-2 ####[facility] [id number] [place] [address] [place] MCV (RBC) [Entitic vol] 94.7 fL Normal 80.0-100.0 [facility] Comment on above: Order Comment: Speci men Type: BLOOD SPECIMENOrdering Facility: [facility] Address: [address] [place] [address] Performed By: #### 5 8410-2 ####[facility] [id number] [place] [address] [place] Nucleated RBC (Bld) [#/Vol] 10*3/uL Normal <0.01 [facility] Comment on above: Order Comment: Speci men Type: BLOOD SPECIMENOrdering Facility: [facility] Address: [address] [place] [address] Performed By: #### 5 8410-2 ####[facility] [id number] [place] [address] [place] Platelet mean volume (Bld) [Entitic vol] 10.9 fL Normal 9.0-12.7 [facility] Comment on above: Order Comment: Speci men Type: BLOOD SPECIMENOrdering Facility: [facility] Address: [address] [place] [address] Performed By: #### 5 8410-2 ####[facility] LABCLIA [id number] [address] [address] [place] Platelets (Bld) [#/Vol] 317 10*3/uL Normal 150-400 [facility] Comment on above: Order Comment: Speci men Type: BLOOD SPECIMENOrdering Facility: [facility] Address: [address] [place] [address] Performed By: #### 5 8410-2 ####[facility] LABCLIA [id number] [place] [address] [place] RBC (Bld) [#/Vol] 4.50 10*6/uL Normal 3.90-5.20 [facility] Comment on above: Order Comment: Speci men Type: BLOOD SPECIMENOrdering Facility: [facility] Address: [address] [place] [address] Performed By: #### 5 8410-2 ####[facility] LABIA [id number] [place] [address] [place] WBC (Bld) [#/Vol] 8.37 10*3/uL Normal 3.70-11.00 [facility] Comment on above: Order Comment: Speci men Type: BLOOD SPECIMENOrdering Facility: [facility] Address: [address] [place] [address] Performed By: #### 5 8410-2 ####[facility] LABCLIA [id number] [place] [id number] [place] Comprehensive metabolic 2000 panelon 09-08-2024 Albumin [Mass/Vol] 4.1 g/dL Normal 3.9-4.9 [facility] Comment on above: Order Comment: Speci men Type: BLOOD SPECIMENOrdering Facility: [facility] Address: [address] [place] [address] Performed By: #### 2 4331-1, 2276-4, 09780-8, 51124-8 ####[facility] LABCLIA [id number] [address] [address] [place] ALP [Catalytic activity/Vol] 114 U/L Normal 34-123 [facility] Comment on above: Order Comment: Speci men Type: BLOOD SPECIMENOrdering Facility: [facility] Address: [address] [place] [address] Performed By: #### 2 4331-1, 2275-4, 81434-8, 53097-4 ####[facility] LABCLIA [id number] [address] [address] [place] ALT [Catalytic activity/Vol] 18 U/L Normal 7-38 [facility] Comment on above: Order Comment: Speci men Type: BLOOD SPECIMENOrdering Facility: [facility] Address: [address] [place] [address] Performed By: #### 2 4331-1, 2275-4, 07354-4, ####[facility] LABCLIA [id number] [place] [address] [place] Anion gap [Moles/Vol] 11 mmol/L Normal 8-15 [facility] Comment on above: Order Comment: Speci men Type: BLOOD SPECIMENOrdering Facility: [facility] Address: [address] [place] [address] Performed By: #### 2 4331-1, 2275-4, 46301-5, ####[facility] LABCLIA [id number] [address] [address] [place] AST [Catalytic activity/Vol] 27 U/L Normal 13-35 [facility] Comment on above: Order Comment: Speci men Type: BLOOD SPECIMENOrdering Facility: [facility] Address: [address] [place] [address] Performed By: #### 2 4331-1, 6-4, 92106-9, 58593-5 ####[facility] LABCLIA [id number] [address] [address] [place] Bilirubin [Mass/Vol] 0.3 mg/dL Normal 0.2-1.3 [facility] Comment on above: Order Comment: Speci men Type: BLOOD SPECIMENOrdering Facility: [facility] Address: [address] [place] [address] Performed By: #### 2 4331-1, 6-4, 07791-1, 16106-9 ####[facility] LABCLIA [id number] [address] [address] [place] Calcium [Mass/Vol] 9.2 mg/dL Normal 8.5-10.2 [facility] Comment on above: Order Comment: Speci men Type: BLOOD SPECIMENOrdering Facility: [facility] Address: [address] [place] [address] Performed By: #### 2 4331-1, 6-4, 27451-8, 35242-7 ####[facility] LABCLIA [id number] [place] [address] [place] Chloride [Moles/Vol] 98 mmol/L Normal 98-107 [facility] Comment on above: Order Comment: Speci men Type: BLOOD SPECIMENOrdering Facility: [facility] Address: [address] [place] [address] Performed By: #### 2 4331-1, 6-4, 32993-2, 11576-1 ####[facility] LABCLIA [id number] [place] [id number] [place] CO2 [Moles/Vol] 24 mmol/L Normal 22-30 [facility] Comment on above: Order Comment: Speci men Type: BLOOD SPECIMENOrdering Facility: [facility] Address: [address] [place] [address] Performed By: #### 2 4331-1, 2276-4, 07274-1, 43860-1 ####[facility] LABCLIA [id number] [place] [id number] [place] Creatinine [Mass/Vol] 0.73 mg/dL Normal 0.58-0.96 [facility] Comment on above: Order Comment: Migel sanderson Type: BLOOD SPECIMENOrdering Facility: [facility] Address: [address] [place] [address] Performed By: #### 2 4331-1, 6-4, 67995-5, 23432-3 ####[facility] LABIA [id number] [place] [id number] [place] Creatinine and Glomerular filtration rate.predicted panel (S/P/Bld) 89 mL/min/1.73m??? Normal >=60 [facility] Comment on above: Order Comment: Migel sanderson Type: BLOOD SPECIMENOrdering Facility: [facility] Address: [address] [place] [address] Result Comment: Ivonne mated Glomerular Filtration Rate (eGFR) is calculated using the 2020 CKD-EPI creatinine equation. This equation utilizes serum creatinine, sex, and age as parameters. The creatinine assay has traceable calibration to isotope dilution-mass spectrometry. Refer to KDIGO guidelines for clinical interpretation. In patients with unstable renal function, e.g. those with acute kidney injury, the eGFR may not accurately reflect actual GFR. Performed By: #### 2 4331-1, 6-4, 61866-8, 22551-7 ####[facility] LABIA [id number] [place] [id number] [place] Glucose [Mass/Vol] 100 mg/dL High 74-99 [facility] Comment on above: Order Comment: Migel sanderson Type: BLOOD SPECIMENOrdering Facility: [facility] Address: [address] [place] [address] Result Comment: The English Diabetes Association (ADA) provides guidance for cutoff values for fasting glucose and random glucose. The ADA defines fasting as no caloric intake for at least 8 hours. Fasting plasma glucose results between 100 to 125 mg/dL indicate increased risk for diabetes (prediabetes). Fasting plasma glucose results greater than or equal to 126 mg/dL meet the criteria for diagnosis of diabetes. In the absence of unequivocal hyperglycemia, results should be confirmed by repeat testing. In a patient with classic symptoms of hyperglycemia or hyperglycemic crisis, random plasma glucose results greater than or equal to 200 mg/dL meet the criteria for diagnosis of diabetes. Reference: Standards of Medical Care in Diabetes 2016, English Diabetes Association. Diabetes Care. 2016.39(Suppl 1). Performed By: #### 2 4331-1, 6-4, 60192-6, 29639-0 ####[facility] LABCLIA [id number] [address] [address] [place] Potassium [Moles/Vol] 4.8 mmol/L Normal 3.7-5.1 [facility] Comment on above: Order Comment: Speci men Type: BLOOD SPECIMENOrdering Facility: [facility] Address: [address] [place] [address] Performed By: #### 2 4331-1, 6-4, 85155-8, 26066-1 ####[facility] LABCLIA [id number] [place] [id number] [place] Protein [Mass/Vol] 7.7 g/dL Normal 6.3-8.0 [facility] Comment on above: Order Comment: Speci men Type: BLOOD SPECIMENOrdering Facility: [facility] Address: [address] [place] [address] Performed By: #### 2 4331-1, 6-4, 11832-1, 62433-8 ####[facility] LABCLIA [id number] [address] [address] [place] Sodium [Moles/Vol] 133 mmol/L Low 136-144 [facility] Comment on above: Order Comment: Speci men Type: BLOOD SPECIMENOrdering Facility: [facility] Address: [address] [place] [address] Performed By: #### 2 4331-1, 6-4, 48848-8, 15903-5 ####[facility] LABCLIA [id number] [address] [address] [place] Urea nitrogen [Mass/Vol] 24 mg/dL High 7-21 [facility] Comment on above: Order Comment: Speci men Type: BLOOD SPECIMENOrdering Facility: [facility] Address: [address] [place] [address] Performed By: #### 2 4331-1, 6-4, 11493-6, 14459-6 ####[facility] LABCLIA [id number] [address] [address] [place] Ferritin SerPl-mCncon 2024 Ferritin [Mass/Vol] 432.0 ng/mL High 14.7-205.1 [facility] Comment on above: Order Comment: Speci men Type: BLOOD SPECIMENOrdering Facility: [facility] Address: [address] [place] [address] Performed By: #### 2 4331-1, 6-4, 15186-7, ####[facility] LABIA [id number] [place] [address] [place] Lipid 1996 panelon Cholesterol [Mass/Vol] 141 mg/dL Normal <200 [facility] Comment on above: Order Comment: Speci men Type: BLOOD SPECIMENOrdering Facility: [facility] Address: [address] [place] [address] Result Comment: <200 mg/dL, Desirable 200-239 mg/dL, Borderline high >239 mg/dL, High Performed By: #### 2 4331-1, 6-4, 16530-5, 09561-1 ####[facility] LABIA [id number] [place] [address] [place] Cholesterol in HDL [Mass/Vol] 60 mg/dL Normal >39 [facility] Comment on above: Order Comment: Speci men Type: BLOOD SPECIMENOrdering Facility: [facility] Address: [address] [place] [address] Result Comment: 40-5 9 mg/dL, Acceptable >59 mg/dL, High: Negative risk factor for coronary heart disease <40 mg/dL, Low: Positive risk factor for coronary heart disease Performed By: #### 2 4331-1, 6-4, 75708-2, ####[facility] LABCLIA [id number] [address] [address] [place] Cholesterol in LDL [Mass/Vol] 70 mg/dL Normal <100 [facility] Comment on above: Order Comment: Speci men Type: BLOOD SPECIMENOrdering Facility: [facility] Address: [address] [place] [address] Result Comment: <100 mg/dL, Optimal 100-129 mg/dL, Near optimal/above optimal 130-159 mg/dL, Borderline high 160-189 mg/dL, High >189 mg/dL, Very high Secondary prevention optimal LDL Cholesterol levels are recommended to be < 70 mg/dL Performed By: #### 2 4331-1, 6-4, 99823-8, ####[facility] LABCLIA [id number] [place] [address] [place] Cholesterol in LDL/Cholesterol in HDL [Mass ratio] 1.17 {ratio} Normal <2.54 [facility] Comment on above: Order Comment: Speci men Type: BLOOD SPECIMENOrdering Facility: [facility] Address: [address] [place] [address] Result Comment: Refshaggy rochace: 1. National Cholesterol Education Program ATP III Guideline At-A-Glance Quick Desk Reference: National Heart, Lung, and Blood Holmes. National Institutes of Health. 2001: NIH Publication No. 01-3305. 2. An International Atherosclerosis Society position paper: global recommendations for the management of dyslipidemia: executive summary, Atherosclerosis. 2014: 232(2):410-413. Performed By: #### 2 4331-1, 6-4, 99235-1, 48121-5 ####[facility] LABCLIA [id number] [address] [address] [place] Cholesterol in VLDL [Mass/Vol] 11 mg/dL Normal <30 [facility] Comment on above: Order Comment: Speci men Type: BLOOD SPECIMENOrdering Facility: [facility] Address: [address] [place] [address] Performed By: #### 2 4331-1, 6-4, 23175-6, 67871-6 ####[facility] LABCLIA [id number] [place] [address] [place] Cholesterol non HDL [Mass/Vol] 81 mg/dL Normal <130 [facility] Comment on above: Order Comment: Speci men Type: BLOOD SPECIMENOrdering Facility: [facility] Address: [address] [place] [address] Result Comment: <130 mg/dL, Optimal 130-159 mg/dL, Near optimal/above optimal 160-189 mg/dL, Borderline high 190-219 mg/dL, High >219 mg/dL, Very high Secondary prevention optimal non HDL Cholesterol levels are recommended to be <100 mg/dL Performed By: #### 2 4331-1, 6-4, 45453-1, ####[facility] LABCLIA [id number] [place] [address] [place] Cholesterol.total/Chol esterol in HDL [Mass ratio] 2.35 {ratio} Normal <5.10 [facility] Comment on above: Order Comment: Speci men Type: BLOOD SPECIMENOrdering Facility: [facility] Address: [address] [place] [address] Performed By: #### 2 4331-1, 6-4, 88777-2, ####[facility] LABCLIA [id number] [address] [address] [place] FASTING TIME 12 hrs Normal [facility] Comment on above: Order Comment: Speci men Type: BLOOD SPECIMENOrdering Facility: [facility] Address: [address] [place] [address] Performed By: #### 2 4331-1, 6-4, 08544-5, ####[facility]CLIA [id number] [place] [id number] [place] Triglyceride [Mass/Vol] 53 mg/dL Normal <150 [facility] Comment on above: Order Comment: Speci men Type: BLOOD SPECIMENOrdering Facility: [facility] Address: [address] [place] [address] Result Comment: <150 mg/dL, Normal 150-199 mg/dL, Borderline high 200-499 mg/dL, High >499 mg/dL, Very high Performed By: #### 2 4331-1, 2275-4, 20807-3, ####[facility] LABCLIA [id number] [place] [address] [place] Magnesium [facility] 09-08 Magnesium [Mass/Vol] 2.0 mg/dL Normal 1.7-2.3 [facility] Comment on above: Order Comment: Speci men Type: BLOOD SPECIMENOrdering Facility: [facility] Address: [address] [place] [address] Performed By: #### 2 4331-1, 2275-4, 58216-8, ####[facility] LABCLIA [id number] [place] [address] [place] Vit B12 SerPl-ncon 025 Cobalamin (Vitamin B12) [Mass/Vol] 769 pg/mL Normal 232-1245 [facility] Comment on above: Order Comment: Speci men Type: BLOOD SPECIMENOrdering Facility: [facility] Address: [address] [place] [address] Performed By: #### 2 132-9 ####[facility] LABCLIA [id number] [place] [id number] [place] [id number] 05-24-2024 [id number] HNO ID: [id number] Author: LUZ PEPE RN Service: ? Author Type: Registered Nurse Type: [id number] Filed: 05/24/2024 11:14 Note Text: The patient received a copy of Colonoscopy discharge instructions that contain information for how to contact the physician who performed the procedure and when to seek medical care. Normal [facility] Colonoscopyon 05-24-2024 Colonoscopy Addendum Number: 1 Addendum Date: 06/15/2024 12:30:14 PM Sedation start time: 9:50AM MATIAS ZAPATA, DO Matias Zapata, 06/15/2024 12:30:31 PM This report has been signed electronically by Matias Lama [facility] Gastrointestinal Endoscopy Patient Name: Susan Calderon Procedure Date: 05/24/2024 9:56 AM Date of : 1955 Admit Type: Outpatient Age: 68 Gender: Female Note Status: Addendum Procedure: Colonoscopy Indications: Screening for colorectal malignant neoplasm Providers: Matias Zapata Patient Profile: This is a 68 year old female. Refer to note in patient chart for documentation of history and physical. Last Colonoscopy: 10 years ago. Referring Physician: Cee Christianson (Referring MD) Medicines: Fentanyl 75 micrograms IV, Midazolam 5 mg IV Complications: No immediate complications. Requesting Provider: Procedure: Pre-Anesthesia Assessment: - Prior to the procedure, a History and Physical was performed, and patient medications and allergies were reviewed. The patient is competent. The risks and benefits of the procedure and the sedation options and risks were discussed with the patient. All questions were answered and informed consent was obtained. Patient identification and proposed procedure were verified by the physician and the nurse in the pre-procedure area in the endoscopy suite. Mental Status Examination: alert and oriented. Airway Examination: normal oropharyngeal airway and neck mobility. Respiratory Examination: clear to auscultation. CV Examination: normal. Prophylactic Antibiotics: The patient does not require prophylactic antibiotics. Prior Anticoagulants: The patient has taken no anticoagulant or antiplatelet agents except for aspirin. ASA Grade Assessment: II - A patient with mild systemic disease. After reviewing the risks and benefits, the patient was deemed in satisfactory condition to undergo the procedure. The anesthesia plan was to use moderate sedation / analgesia (conscious sedation). Immediately prior to administration of medications, the patient was re-assessed for adequacy to receive sedatives. The heart rate, respiratory rate, oxygen saturations, blood pressure, adequacy of pulmonary ventilation, and response to care were monitored throughout the procedure. The physical status of the patient was re-assessed after the procedure. After I obtained informed consent, the scope was passed under direct vision. Throughout the procedure, the patient's blood pressure, pulse, and oxygen saturations were monitored continuously. The Colonoscope was introduced through the anus and advanced to the cecum, identified by the appendiceal orifice, ileocecal valve and palpation. The colonoscopy was performed without difficulty. The patient tolerated the procedure well. The quality of the bowel preparation was adequate to identify polyps greater than 5 mm in size. The ileocecal valve, appendiceal orifice, and rectum were photographed. Moderate Sedation: Moderate (conscious) sedation was administered by the nurse and supervised by the endoscopist. The patient's oxygen saturation, heart rate, blood pressure and response to care were monitored. Total physician intraservice time was 30 minutes. MAC anesthesia was administered by the anesthesia team. Findings: A few medium-mouthed and small-mouthed diverticula were found in the sigmoid colon. Internal hemorrhoids were found during retroflexion. The hemorrhoids were small and Grade I (internal hemorrhoids that do not prolapse). The exam was otherwise without abnormality on direct and retroflexion views. Impression: - Diverticulosis in the sigmoid colon. - Internal hemorrhoids. - The examination was otherwise normal on direct and retroflexion views. - No specimens collected. Recommendation: - Discharge patient to home (ambulatory). - Resume previous diet. - Continue present medications. - Await pathology results. - Repeat colonoscopy in 5-10 years because the bowel preparation was poor. - Return to referring physician in 1 month. - Patient has a contact number available for emergencies. The signs and symptoms of potential delayed complications were discussed with the patient. Return to normal activities tomorrow. Written discharge instructions were provided to the patient. Procedure Code(s): --- Professional --- 46960, Colonoscopy, flexible; diagnostic, including collection of specimen(s) by brushing or washing, when performed (separate procedure) G0500, Moderate sedation services provided by the same physician or other qualified health rn managed care performing a gastrointestinal endoscopic service that sedation supports, requiring the presence of an independent trained observer to assist in the monitoring of the patient's level of consciousness and physiological status; initial 15 minutes of intra (more content not included)... Normal [facility] Colonoscopy Study observatio non 05-24-2024 [facility] Gastrointestinal Endoscopy Patient Name: Susan Calderon Procedure Date: 05/24/2024 9:56 AM Date of : 1955 Admit Type: Outpatient Age: 68 Gender: Female Note Status: Finalized Procedure: Colonoscopy Indications: Screening for colorectal malignant neoplasm Providers: Matias Zapata Patient Profile: This is a 68 year old female. Refer to note in patient chart for documentation of history and physical. Last Colonoscopy: 10 years ago. Referring Physician: Cee Christianson (Referring MD) Medicines: Fentanyl 75 micrograms IV, Midazolam 5 mg IV Complications: No immediate complications. Requesting Provider: Procedure: Pre-Anesthesia Assessment: - Prior to the procedure, a History and Physical was performed, and patient medications and allergies were reviewed. The patient is competent. The risks and benefits of the procedure and the sedation options and risks were discussed with the patient. All questions were answered and informed consent was obtained. Patient identification and proposed procedure were verified by the physician and the nurse in the pre-procedure area in the endoscopy suite. Mental Status Examination: alert and oriented. Airway Examination: normal oropharyngeal airway and neck mobility. Respiratory Examination: clear to auscultation. CV Examination: normal. Prophylactic Antibiotics: The patient does not require prophylactic antibiotics. Prior Anticoagulants: The patient has taken no anticoagulant or antiplatelet agents except for aspirin. ASA Grade Assessment: II - A patient with mild systemic disease. After reviewing the risks and benefits, the patient was deemed in satisfactory condition to undergo the procedure. The anesthesia plan was to use moderate sedation / analgesia (conscious sedation). Immediately prior to administration of medications, the patient was re-assessed for adequacy to receive sedatives. The heart rate, respiratory rate, oxygen saturations, blood pressure, adequacy of pulmonary ventilation, and response to care were monitored throughout the procedure. The physical status of the patient was re-assessed after the procedure. After I obtained informed consent, the scope was passed under direct vision. Throughout the procedure, the patient's blood pressure, pulse, and oxygen saturations were monitored continuously. The Colonoscope was introduced through the anus and advanced to the cecum, identified by the appendiceal orifice, ileocecal valve and palpation. The colonoscopy was performed without difficulty. The patient tolerated the procedure well. The quality of the bowel preparation was adequate to identify polyps greater than 5 mm in size. The ileocecal valve, appendiceal orifice, and rectum were photographed. Moderate Sedation: Moderate (conscious) sedation was administered by the nurse and supervised by the endoscopist. The patient's oxygen saturation, heart rate, blood pressure and response to care were monitored. Total physician intraservice time was 30 minutes. MAC anesthesia was administered by the anesthesia team. Findings: A few medium-mouthed and small-mouthed diverticula were found in the sigmoid colon. Internal hemorrhoids were found during retroflexion. The hemorrhoids were small and Grade I (internal hemorrhoids that do not prolapse). The exam was otherwise without abnormality on direct and retroflexion views. Impression: - Diverticulosis in the sigmoid colon. - Internal hemorrhoids. - The examination was otherwise normal on direct and retroflexion views. - No specimens collected. Recommendation: - Discharge patient to home (ambulatory). - Resume previous (more content not included)... [facility] Radiology Study observation (narrative) [facility] -- SUSAN CALDERON ([id number]) 1955 F TXT Date Time Provider Department 05/04/24 [facility] IN[facility] During your visit today, we recorded the following information about you: Shantel Jaramillo LPN 05/04/2024 2:33 PM Signed Pt walked in with questions of medicines to take before colonoscopy. This is scheduled for 05/24/24. All per answered except the paper from gen surg says if taking asa to contact your provider one if and when to stop this medicine? Can call pt with with this response. Can leave a message. She is aware that she is to take her atenolol and lisinopril with a sip of water. Cee Christianson MD 05/14/2024 4:20 PM Signed For just screening colonoscopy, does not have to hold aspirin prior to the colonoscopy. May continue taking after colonoscopy unless instructed otherwise (for example, if a large >2cm polyp needed removed, om which case would be given instructions when could resume since would need to be monitored to make sure no bleeding develops. So unless the person doing the procedure instructed her to hold aspirin, may continue aspirin as noted above. Shimon Choudhury RN 05/15/2024 10:23 AM Signed Phoned patient and given provider's message below with verbalized understanding. Patient agreeable. Allergies As of Date: 05/04/2024 Noted Allergy Reaction CEPHALOSPORINS 02/27/2019 12 - Shortness of Breath PENICILLINS 04/17/2005 10 - Anaphylaxis 12 - Shortness of Breath Comments: rash DOXYCYCLINE 02/27/2019 14 - Other: See Comments Comments: Teeth discoloration ENTEX PSE (PSEUDOEPHEDRINE-GUAIFE* 5 - Intolerance Comments: insomnia,jittery LEVAQUIN (LEVOFLOXACIN) 04/17/2005 14 - Other: See Comments Comments: muscle pain, heel pain (plantar side) RELAFEN (NABUMETONE) 04/17/2005 7 - Swelling Date Reviewed: 02/21/2024 Reviewed by: Shwetha Lagos LPN - Fully Assessed Reason for Visit: Patient Question [5817] Prescriptions as of 05/15/2024 - atenolol (TENORMIN) 25 mg tablet Take 1 tablet by mouth once daily. - gabapentin (NEURONTIN) 400 mg capsule Take 1 capsule by mouth three times a day for 180 days. - atorvastatin (LIPITOR) 10 mg tablet Take 1 tablet by mouth daily at bedtime. - cyclobenzaprine (FLEXERIL) 5 mg tablet Take 1-2 tablets by mouth three times a day as needed (cramping and muscle spasm). - montelukast (SINGULAIR) 10 mg tablet Take 1 tablet by mouth daily at bedtime. - ubidecarenone Q-10 (CO Q-10) 10 mg cap Take by mouth two times a day. - msbyoqbz-qkwjft-cbxtlmfc acid (COLLAGEN 1500 PLUS C) 500 mg-800 mcg- 50 mg cap Take by mouth. - lisinopril (ZESTRIL) 40 mg tablet Take 1 tablet by mouth once daily. DOSE CHANGE - TAKE ONE DAILY - omega-3 DHA-EPA (FISH OIL) 1,200 (144-216) mg capsule Take 1 capsule by mouth daily with breakfast. - D3/red wine/resveratrol/malt (SUPER-D3+ ORAL) Take 1 Each by mouth once daily. - magnesium oxide 400 mg magnesium tab Take 1 Each by mouth once daily. - niacin (NIACIN) 500 mg tablet Take 500 mg by mouth daily with breakfast. - aspirin 81 mg chewable tablet Take 81 mg by mouth once daily. - calcium carbonate/vitamin D3 (CALCIUM WITH VITAMIN D ORAL) Take by mouth. 1200 with 1000 of D - OTC NUTRITIONAL SUPPLEMENT Prevagen - glucosamine/chondroitin/C/ Juice (GLUCOSAMINE-CHONDROITIN COMPLX ORAL) Take by mouth. - naproxen sodium (ANAPROX) 220 mg tablet Take 220 mg by mouth once daily as needed. - acetaminophen/diphenhydram ine (PM PAIN RELIEF ORAL) Take by mouth. - VITAMIN E ORAL Take 1 capsule by mouth once daily. - vitamin B complex (SUPER B COMPLEX ORAL) Take 1 tablet by mouth once daily. - ascorbic acid, vitamin C, (VITAMIN C) 500 mg tablet Take 500 mg by mouth once daily. - fluticasone (FLONASE) 50 mcg/actuation nasal spray SPRAY 2 SPRAYS INTO EACH NOSTRIL ONCE DAILY - RINSE MOUTH AFTER USE - fluticasone-salmeterol (ADVAIR DISKUS) 250-50 mcg/dose inhaler Inhale 1 Puff as instructed twice daily. - albuterol HFA (PROVENTIL HFA) 90 mcg/actuation inhaler Inhale 2 Puffs as instructed every 4 hours as needed for wheezing/shortness of breath. Problem List As Of Date 05/04/2024 Noted Resolved Depressive disorder, not elsewhere classified [*04/17/2005 01/26/2021 Primary hypertension [I10] 04/17/2005 ANXIETY STATE NOS [F41.1] 04/18/2005 GENERALIZED ANXIETY DIS [F41.1] CARPAL TUNNEL SYNDROME [G56.00] GENERAL OSTEOARTHROSIS [M15.9] ESOPHAGEAL REFLUX [K21.9] ENLARGEMENT LYMPH NODES [R59.9] 05/31/2006 Asthma [J45.909] 06/14/2006 Degeneration of lumbar intervertebral disc [M51* Dysmetabolic syndrome [E88.810] 07/31/2011 Pruritus--back [L29.9] 02/19/2012 Candidal intertrigo [B37.2] 02/19/2012 Hypercholesteremia [E78.00] Small bowel obstruction (HCC) [K56.609] 07/30/2017 S/P small bowel resection [Z90.49] 07/30/2017 Cigarette smoker [F17.210] 11/16/2018 Obes (more content not included)... Normal [facility] CNPNon 04-21-2024 CNPN Telephone (INTMWS) -- SUASN CALDERON ([id number]) 1955 F TXT Date Time Provider Department 04/21/24 [facility] IN[facility] During your visit today, we recorded the following information about you: Danuta Hyman 04/24/2024 7:22 AM Addendum Please send Golytely script to [facility] [address] [place] [id number] Mailed Golytely Prep Instructions Cee Christianson MD 04/21/2024 9:30 PM Signed The following approved medication requests have been transmitted electronically. Requested Prescriptions Signed Prescriptions Disp Refills peg 3350-Electrolytes (GOLYTELY) 236-22.74-6.74 -5.86 gram suspension 1 Each 0 Sig: Take 4,000 mL by mouth one time only for 1 dose. As instructed Authorizing Provider: CEE CHRISTIANSON MD Talampas, Liza D, MD 04/21/2024 9:30 PM Signed Addended by: CEE CHRISTIANSON on: 04/21/2024 09:30 PM Modules accepted: Orders Lucille Ji LPN 04/22/2024 8:28 AM Signed Phoned patient and aware prep was sent to pharmacy. Allergies As of Date: 04/21/2024 Noted Allergy Reaction CEPHALOSPORINS 02/27/2019 12 - Shortness of Breath PENICILLINS 04/17/2005 10 - Anaphylaxis 12 - Shortness of Breath Comments: rash DOXYCYCLINE 02/27/2019 14 - Other: See Comments Comments: Teeth discoloration ENTEX PSE (PSEUDOEPHEDRINE-GUAIFE* 5 - Intolerance Comments: insomnia,jittery LEVAQUIN (LEVOFLOXACIN) 04/17/2005 14 - Other: See Comments Comments: muscle pain, heel pain (plantar side) RELAFEN (NABUMETONE) 04/17/2005 7 - Swelling Date Reviewed: 02/21/2024 Reviewed by: Shwetha Lagos LPN - Fully Assessed Order(s):[] peg 3350-Electrolytes (GOLYTELY) 236-22.74-6.74 -5.86 gram suspensionTake 4,000 mL by mouth one time only for 1 dose. As instructedDisp: 1 EachRfl: 0 Prescriptions as of 04/24/2024 - atenolol (TENORMIN) 25 mg tablet Take 1 tablet by mouth once daily. - gabapentin (NEURONTIN) 400 mg capsule Take 1 capsule by mouth three times a day for 180 days. - atorvastatin (LIPITOR) 10 mg tablet Take 1 tablet by mouth daily at bedtime. - cyclobenzaprine (FLEXERIL) 5 mg tablet Take 1-2 tablets by mouth three times a day as needed (cramping and muscle spasm). - montelukast (SINGULAIR) 10 mg tablet Take 1 tablet by mouth daily at bedtime. - ubidecarenone Q-10 (CO Q-10) 10 mg cap Take by mouth two times a day. - rsvuldpg-yaqpgq-qclphhgb acid (COLLAGEN 1500 PLUS C) 500 mg-800 mcg- 50 mg cap Take by mouth. - lisinopril (ZESTRIL) 40 mg tablet Take 1 tablet by mouth once daily. DOSE CHANGE - TAKE ONE DAILY - omega-3 DHA-EPA (FISH OIL) 1,200 (144-216) mg capsule Take 1 capsule by mouth daily with breakfast. - D3/red wine/resveratrol/malt (SUPER-D3+ ORAL) Take 1 Each by mouth once daily. - magnesium oxide 400 mg magnesium tab Take 1 Each by mouth once daily. - niacin (NIACIN) 500 mg tablet Take 500 mg by mouth daily with breakfast. - aspirin 81 mg chewable tablet Take 81 mg by mouth once daily. - calcium carbonate/vitamin D3 (CALCIUM WITH VITAMIN D ORAL) Take by mouth. 1200 with 1000 of D - OTC NUTRITIONAL SUPPLEMENT Prevagen - glucosamine/chondroitin/C/ Juice (GLUCOSAMINE-CHONDROITIN COMPLX ORAL) Take by mouth. - naproxen sodium (ANAPROX) 220 mg tablet Take 220 mg by mouth once daily as needed. - acetaminophen/diphenhydram ine (PM PAIN RELIEF ORAL) Take by mouth. - VITAMIN E ORAL Take 1 capsule by mouth once daily. - vitamin B complex (SUPER B COMPLEX ORAL) Take 1 tablet by mouth once daily. - ascorbic acid, vitamin C, (VITAMIN C) 500 mg tablet Take 500 mg by mouth once daily. - fluticasone (FLONASE) 50 mcg/actuation nasal spray SPRAY 2 SPRAYS INTO EACH NOSTRIL ONCE DAILY - RINSE MOUTH AFTER USE - fluticasone-salmeterol (ADVAIR DISKUS) 250-50 mcg/dose inhaler Inhale 1 Puff as instructed twice daily. - albuterol HFA (PROVENTIL HFA) 90 mcg/actuation inhaler Inhale 2 Puffs as instructed every 4 hours as needed for wheezing/shortness of breath. Problem List As Of Date 04/21/2024 Noted Resolved Depressive disorder, not elsewhere classified [*04/17/2005 01/26/2021 Primary hypertension [I10] 04/17/2005 ANXIETY STATE NOS [F41.1] 04/18/2005 GENERALIZED ANXIETY DIS [F41.1] CARPAL TUNNEL SYNDROME [G56.00] GENERAL OSTEOARTHROSIS [M15.9] ESOPHAGEAL REFLUX [K21.9] ENLARGEMENT LYMPH NODES [R59.9] 05/31/2006 Asthma [J45.909] 06/14/2006 Degeneration of lumbar intervertebral disc [M51* Dysmetabolic syndrome [E88.810] 07/31/2011 Pruritus--back [L29.9] 02/19/2012 Candidal intertrigo [B37.2] 02/19/2012 Hypercholesteremia [E78.00] Small bowel obstruction (HCC) [K56.609] 07/30/2017 S/P small bowel resection [Z90.49] 07/30/2017 Cigarette smoker [F17.210] 11/16/2018 Obesity, Class II, BMI 35-39.9 [E66.9] 12/18/2022 Osteopenia of both hips [M85.851, M85.852] 02/19/2023 Macrocytic anemia [D53.9] 02/19/2023 (more content not included)... Normal [facility] 03-29-2024 CNPN Telephone (INTMWS) -- SUSAN CALDERON ([id number]) 1955 F TXT Date Time Provider Department 03/29/24 [facility] INTM[facility] During your visit today, we recorded the following information about you: Tracy Maite 03/29/2024 2:47 PM Signed Patient calling today to request medication gabapentin(NEURONTIN 300 MG CAP) Patient is asking if she could increase the dosage because she is having increased spine pain. Patient last seen - 02/21/24 Future appointment scheduled: yes PHARMACY: [facility]/Lucille Moya LPN 03/29/2024 3:02 PM Signed Phoned patient and asked about her back pain. She said lower back radiates to her buttocks and down her legs, she has had 2 previous surgeries. Patient said she is currently taking Gabapentin 400 mg one three times daily. The rx she has was filled 04/05/2023 from [facility] and still has some, needs new rx. She is also taking Ibuprofen 200 mg one tablet twice daily and Cyclobenzaprine 5 mg one to two tablets depending on her pain three times daily. Patient said she uses [facility] for her [facility]. If she is not home can leave message for her. Please advise Cee Christianson MD 03/29/2024 7:38 PM Signed Will okay RX since was recently seen. Will needs seen sooner than 6 months if this dose is not adequate for pain control and feels needs dose adjusted. The following approved medication requests have been transmitted electronically. Requested Prescriptions Signed Prescriptions Disp Refills gabapentin (NEURONTIN) 400 mg capsule 270 capsule 1 Sig: Take 1 capsule by mouth three times a day for 180 days. Authorizing Provider: CEE CHRISTIANSON MD Babulski, Amanda, RN 03/29/2024 7:51 PM Signed Called and left a voicemail for the Patient to call back and ask for a nurse to receive the providers message. ZIA Pope Stephanie, RN 03/30/2024 9:55 AM Signed Patient notified of provider's instructions. Patient verbalizes understanding. Amy Muller RN Allergies As of Date: 03/29/2024 Noted Allergy Reaction CEPHALOSPORINS 02/27/2019 12 - Shortness of Breath PENICILLINS 04/17/2005 10 - Anaphylaxis 12 - Shortness of Breath Comments: rash DOXYCYCLINE 02/27/2019 14 - Other: See Comments Comments: Teeth discoloration ENTEX PSE (PSEUDOEPHEDRINE-GUAIFE* 5 - Intolerance Comments: insomnia,jittery LEVAQUIN (LEVOFLOXACIN) 04/17/2005 14 - Other: See Comments Comments: muscle pain, heel pain (plantar side) RELAFEN (NABUMETONE) 04/17/2005 7 - Swelling Date Reviewed: 02/21/2024 Reviewed by: Shwetha Lagos LPN - Fully Assessed Reason for Visit: requesting medication [Other] Order(s):gabapentin (NEURONTIN) 400 mg capsuleTake 1 capsule by mouth three times a day for 180 days.Disp: 270 capsuleRfl: 1 Prescriptions as of 03/30/2024 - atenolol (TENORMIN) 25 mg tablet Take 1 tablet by mouth once daily. - gabapentin (NEURONTIN) 400 mg capsule Take 1 capsule by mouth three times a day for 180 days. - atorvastatin (LIPITOR) 10 mg tablet Take 1 tablet by mouth daily at bedtime. - cyclobenzaprine (FLEXERIL) 5 mg tablet Take 1-2 tablets by mouth three times a day as needed (cramping and muscle spasm). - montelukast (SINGULAIR) 10 mg tablet Take 1 tablet by mouth daily at bedtime. - ubidecarenone Q-10 (CO Q-10) 10 mg cap Take by mouth two times a day. - jkttogdt-pyxvue-lvoptiva acid (COLLAGEN 1500 PLUS C) 500 mg-800 mcg- 50 mg cap Take by mouth. - lisinopril (ZESTRIL) 40 mg tablet Take 1 tablet by mouth once daily. DOSE CHANGE - TAKE ONE DAILY - omega-3 DHA-EPA (FISH OIL) 1,200 (144-216) mg capsule Take 1 capsule by mouth daily with breakfast. - D3/red wine/resveratrol/malt (SUPER-D3+ ORAL) Take 1 Each by mouth once daily. - magnesium oxide 400 mg magnesium tab Take 1 Each by mouth once daily. - niacin (NIACIN) 500 mg tablet Take 500 mg by mouth daily with breakfast. - aspirin 81 mg chewable tablet Take 81 mg by mouth once daily. - calcium carbonate/vitamin D3 (CALCIUM WITH VITAMIN D ORAL) Take by mouth. 1200 with 1000 of D - OTC NUTRITIONAL SUPPLEMENT Prevagen - glucosamine/chondroitin/C/ Juice (GLUCOSAMINE-CHONDROITIN COMPLX ORAL) Take by mouth. - naproxen sodium (ANAPROX) 220 mg tablet Take 220 mg by mouth once daily as needed. - acetaminophen/diphenhydram ine (PM PAIN RELIEF ORAL) Take by mouth. - VITAMIN E ORAL Take 1 capsule by mouth once daily. - vitamin B complex (SUPER B COMPLEX ORAL) Take 1 tablet by mouth once daily. - ascorbic acid, vitamin C, (VITAMIN C) 500 mg tablet Take 500 mg by mouth once daily. - fluticasone (FLONASE) 50 mcg/actuation nasal spray SPRAY 2 SPRAYS INTO EACH NOSTRIL ONCE DAILY - RINSE MOUTH AFTER USE - fluticasone-salmeterol (ADVAIR DISKUS) 250-50 mcg/dose inhaler Inhale 1 Puff as instructed twice daily. - albuterol HFA (PROVENTIL HFA) 90 mcg/actuation inhaler (more content not included)... Normal [facility] CNOVon 02-21-2024 CNOV Office Visit (INTMWS ) -- SUSAN CALDERON ([id number]) 1955 F TXT Date Time Provider Department 02/21/24 8:40 AM [facility] During your visit today, we recorded the following information about you: Temperature Pulse Respiration Blood pressure 97.4 degrees 67/minute 16/minute 130/62 Weight Height 107.5 kg 1.689 m Cee Christianson MD 02/22/2024 12:05 AM Signed This note was created using [employer]. Subjective Susan Calderon is a 68 year old female. Patient presents with: F/U 6 months SUBJECTIVE: Susan Calderon is a 68 year old year old lady here today for 6 month follow up appointment for review of medical conditions. At home her scale says 219lbs this AM in same clothes as wearing now. Has been losing weight dieting. Protein mix that uses as a meal replacement. 30 grams per serving and takes twice daily. Something small for supper. Found a website to help decide on what to eat to limit meals to how ever many grams of carbs or protein. Avoiding things that has hard time limiting. Has been taking extra iron pill. Still taking now. Noted has been using salt substitute since thought sodium was high before Reviewed records--no high sodium here. PAST MEDICAL HISTORY Diagnosis Date Allergic rhinitis, cause unspecified Allergic rhinitis Carpal tunnel syndrome Degeneration of intervertebral disc, site unspecified Depressive disorder, not elsewhere classified Esophageal reflux Generalized anxiety disorder Anxiety, Generalized Generalized osteoarthrosis, unspecified site Hypercholesteremia Unspecified essential hypertension Current Outpatient Medications Medication Sig lisinopril (ZESTRIL) 40 mg tablet Take 1 tablet by mouth once daily. DOSE CHANGE - TAKE ONE DAILY atorvastatin (LIPITOR) 10 mg tablet Take 1 tablet by mouth daily at bedtime. montelukast (SINGULAIR) 10 mg tablet Take 1 tablet by mouth daily at bedtime. omega-3 DHA-EPA (FISH OIL) 1,200 (144-216) mg capsule Take 1 capsule by mouth daily with breakfast. D3/red wine/resveratrol/malt (SUPER-D3+ ORAL) Take 1 Each by mouth once daily. magnesium oxide 400 mg magnesium tab Take 1 Each by mouth once daily. niacin (NIACIN) 500 mg tablet Take 500 mg by mouth daily with breakfast. aspirin 81 mg chewable tablet Take 81 mg by mouth once daily. calcium carbonate/vitamin D3 (CALCIUM WITH VITAMIN D ORAL) Take by mouth. 1200 with 1000 of D OTC NUTRITIONAL SUPPLEMENT Prevagen glucosamine/chondroitin/C/ Juice (GLUCOSAMINE-CHONDROITIN COMPLX ORAL) Take by mouth. (Patient not taking: Reported on 12/17/2023) naproxen sodium (ANAPROX) 220 mg tablet Take 220 mg by mouth once daily as needed. acetaminophen/diphenhydram ine (PM PAIN RELIEF ORAL) Take by mouth. cyclobenzaprine (FLEXERIL) 5 mg tablet Take 1-2 tablets by mouth three times a day as needed (cramping and muscle spasm). atenolol (TENORMIN) 25 mg tablet Take 1 tablet by mouth once daily. VITAMIN E ORAL Take 1 capsule by mouth once daily. vitamin B complex (SUPER B COMPLEX ORAL) Take 1 tablet by mouth once daily. ferrous sulfate 325 mg (65 mg iron) tablet Take 325 mg by mouth once daily. ascorbic acid, vitamin C, (VITAMIN C) 500 mg tablet Take 500 mg by mouth once daily. fluticasone (FLONASE) 50 mcg/actuation nasal spray SPRAY 2 SPRAYS INTO EACH NOSTRIL ONCE DAILY - RINSE MOUTH AFTER USE fluticasone-salmeterol (ADVAIR DISKUS) 250-50 mcg/dose inhaler Inhale 1 Puff as instructed twice daily. albuterol HFA (PROVENTIL HFA) 90 mcg/actuation inhaler Inhale 2 Puffs as instructed every 4 hours as needed for wheezing/shortness of breath. No current facility-administered medications for this visit. Review of Systems Objective BP 130/62 (BP Site: Left Arm, BP Position: Sitting, BP Cuff Size: Large Adult) Pulse 67 Temp 36.3 ?C (97.4 ?F) Resp 16 Ht 168.9 cm (5' 6.5) Wt 107.5 kg (237 lb) SpO2 96% BMI 37.68 kg/m? Physical Exam Constitutional: Appearance: Normal appearance. She is obese. HENT: Head: Normocephalic. Eyes: Conjunctiva/sclera: Conjunctivae normal. Cardiovascular: Rate and Rhythm: Normal rate and regular rhythm. Heart sounds: Normal heart sounds. Pulmonary: Effort: Pulmonary effort is normal. Breath sounds: Normal breath sounds. Musculoskeletal: Right lower leg: No edema. Left lower leg: No edema. Skin: General: Skin is warm and dry. Neurological: General: No focal deficit present. Mental Status: She is alert and oriented to person, place, and time. Psychiatric: Mood and Affect: Mood normal. Behavior: Behavior normal. Thought Content: Thought content normal. Judgment: Judgment normal. Latest Ref Rng 05/24/2021 12/18/2021 06/20/2022 03/29/2023 02/18/2024 WBC 3.70 - 11.00 k/uL 6.45 8.04 6.78 5.09 RBC 3.90 - 5.20 m/uL 3.68 (L) 3.66 (L) 3.85 (L) 4.28 Hemoglobin 11.5 - 15.5 g/dL 12.3 12.3 12.5 13.1 Hematocrit 36.0 - (more content not included)... Normal [facility] 25(OH)D3 [facility] 25-hydroxyvitamin D3 [Mass/Vol] 52.2 ng/mL Normal 31.0-80.0 [facility] Comment on above: Order Comment: Migel sanderson Type: BLOOD SPECIMENOrdering Facility: [facility] Address: [address] [place] [address] Result Comment: Clas sification of 25 [place] Vitamin D status: Deficiency/Insufficiency: < or = 30 ng/ml. Sufficiency/Optimal Levels: 31-80 ng/mL Toxicity: > 100 ng/mL. Test performed by chemiluminescent immunoassay. Performed By: #### 1 989-3 ####[facility] LABCLIA [id number] [facility] [id number] [place] [address] [place] CBC W Auto Differential pane l (Bld)on 02-18-2024 Basophils (Bld) [#/Vol] 0.06 10*3/uL Normal <0.11 [facility] Comment on above: Order Comment: Speci men Type: BLOOD SPECIMENOrdering Facility: [facility] Address: [address] [place] [address] Performed By: #### 5 7021-8 ####[facility] LABCLIA [id number] [place] [address] [place] Basophils/100 WBC (Bld) 1.2 % Normal [facility] Comment on above: Order Comment: Speci men Type: BLOOD SPECIMENOrdering Facility: [facility] Address: [address] [place] [address] Performed By: #### 5 7021-8 ####[facility] LABCLIA [id number] [place] [address] [place] Differential cell count method Nom (Bld) Auto Normal [facility] Comment on above: Order Comment: Speci men Type: BLOOD SPECIMENOrdering Facility: [facility] Address: [address] [place] [address] Performed By: #### 5 7021-8 ####[facility] LABCLIA [id number] [place] [address] [place] Eosinophils (Bld) [#/Vol] 0.16 10*3/uL Normal <0.46 [facility] Comment on above: Order Comment: Speci men Type: BLOOD SPECIMENOrdering Facility: [facility] Address: [address] [place] [address] Performed By: #### 5 7021-8 ####[facility] LABCLIA [id number] [place] [address] [place] Eosinophils/100 WBC (Bld) 3.1 % Normal [facility] Comment on above: Order Comment: Speci men Type: BLOOD SPECIMENOrdering Facility: [facility] Address: [address] [place] [address] Performed By: #### 5 7021-8 ####[facility] LABCLIA [id number] [place] [address] [place] Erythrocyte distribution width (RBC) [Ratio] 12.8 % Normal 11.5-15.0 [facility] Comment on above: Order Comment: Speci men Type: BLOOD SPECIMENOrdering Facility: [facility] Address: [address] [place] [address] Performed By: #### 5 7021-8 ####[facility] LABIA [id number] [place] [address] [place] Hematocrit (Bld) [Volume fraction] 40.8 % Normal 36.0-46.0 [facility] Comment on above: Order Comment: Speci men Type: BLOOD SPECIMENOrdering Facility: [facility] Address: [address] [place] [address] Performed By: #### 5 7021-8 ####[facility] LABIA [id number] [place] [address] [place] Hemoglobin (Bld) [Mass/Vol] 13.1 g/dL Normal 11.5-15.5 [facility] Comment on above: Order Comment: Speci men Type: BLOOD SPECIMENOrdering Facility: [facility] Address: [address] [place] [address] Performed By: #### 5 7021-8 ####[facility] LABIA [id number] [place] [address] [place] Immature granulocytes (Bld) [#/Vol] 10*3/uL Normal <0.10 [facility] Comment on above: Order Comment: Speci men Type: BLOOD SPECIMENOrdering Facility: [facility] Address: [address] [place] [address] Performed By: #### 5 7021-8 ####[facility] LABIA [id number] [place] [address] [place] Immature granulocytes/100 WBC (Bld) 0.2 % Normal [facility] Comment on above: Order Comment: Speci men Type: BLOOD SPECIMENOrdering Facility: [facility] Address: [address] [place] [address] Performed By: #### 5 7021-8 ####[facility] LABCLIA [id number] [place] [address] [place] Lymphocytes (Bld) [#/Vol] 1.50 10*3/uL Normal 1.00-4.00 [facility] Comment on above: Order Comment: Speci men Type: BLOOD SPECIMENOrdering Facility: [facility] Address: [address] [place] [address] Performed By: #### 5 7021-8 ####[facility] LABCLIA [id number] [place] [address] [place] Lymphocytes/100 WBC (Bld) 29.5 % Normal [facility] Comment on above: Order Comment: Speci men Type: BLOOD SPECIMENOrdering Facility: [facility] Address: [address] [place] [address] Performed By: #### 5 7021-8 ####[facility] LABIA [id number] [place] [address] [place] MCH (RBC) [Entitic mass] 30.6 pg Normal 26.0-34.0 [facility] Comment on above: Order Comment: Speci men Type: BLOOD SPECIMENOrdering Facility: [facility] Address: [address] [place] [address] Performed By: #### 5 7021-8 ####[facility] LABIA [id number] [place] [address] [place] MCHC (RBC) [Mass/Vol] 32.1 g/dL Normal 30.5-36.0 [facility] Comment on above: Order Comment: Speci men Type: BLOOD SPECIMENOrdering Facility: [facility] Address: [address] [place] [address] Performed By: #### 5 7021-8 ####[facility] LABCLIA [id number] [place] [address] [place] MCV (RBC) [Entitic vol] 95.3 fL Normal 80.0-100.0 [facility] Comment on above: Order Comment: Speci men Type: BLOOD SPECIMENOrdering Facility: [facility] Address: [address] [place] [address] Performed By: #### 5 7021-8 ####[facility] LABCLIA [id number] [place] [address] [place] Monocytes (Bld) [#/Vol] 0.46 10*3/uL Normal <0.87 [facility] Comment on above: Order Comment: Speci men Type: BLOOD SPECIMENOrdering Facility: [facility] Address: [address] [place] [address] Performed By: #### 5 7021-8 ####[facility] LABCLIA [id number] [place] [address] [place] Monocytes/100 WBC (Bld) 9.0 % Normal [facility] Comment on above: Order Comment: Speci men Type: BLOOD SPECIMENOrdering Facility: [facility] Address: [address] [place] [address] Performed By: #### 5 7021-8 ####[facility] LABCLIA [id number] [place] [address] [place] Neutrophils (Bld) [#/Vol] 2.90 10*3/uL Normal 1.45-7.50 [facility] Comment on above: Order Comment: Speci men Type: BLOOD SPECIMENOrdering Facility: [facility] Address: [address] [place] [address] Performed By: #### 5 7021-8 ####[facility] LABCLIA [id number] [place] [address] [place] Neutrophils/100 WBC (Bld) 57.0 % Normal [facility] Comment on above: Order Comment: Speci men Type: BLOOD SPECIMENOrdering Facility: [facility] Address: [address] [place] [address] Performed By: #### 5 7021-8 ####[facility] LABCLIA [id number] [place] [address] [place] Nucleated RBC (Bld) [#/Vol] 10*3/uL Normal <0.01 [facility] Comment on above: Order Comment: Speci men Type: BLOOD SPECIMENOrdering Facility: [facility] Address: [address] [place] [address] Performed By: #### 5 7021-8 ####[facility] LABCLIA [id number] [place] [address] [place] Nucleated RBC/100 WBC (Bld) [Ratio] 0.0 /100 WBC Normal [facility] Comment on above: Order Comment: Speci men Type: BLOOD SPECIMENOrdering Facility: [facility] Address: [address] [place] [address] Performed By: #### 5 7021-8 ####[facility] LABIA [id number] [place] [address] [place] Platelet mean volume (Bld) [Entitic vol] 11.0 fL Normal 9.0-12.7 [facility] Comment on above: Order Comment: Speci men Type: BLOOD SPECIMENOrdering Facility: [facility] Address: [address] [place] [address] Performed By: #### 5 7021-8 ####[facility] LABIA [id number] [place] [address] [place] Platelets (Bld) [#/Vol] 229 10*3/uL Normal 150-400 [facility] Comment on above: Order Comment: Speci men Type: BLOOD SPECIMENOrdering Facility: [facility] Address: [address] [place] [address] Result Comment: No c lot detected. Performed By: #### 5 7021-8 ####[facility] LABIA [id number] [place] [id number] [address] [place] RBC (Bld) [#/Vol] 4.28 10*6/uL Normal 3.90-5.20 [facility] Comment on above: Order Comment: Speci men Type: BLOOD SPECIMENOrdering Facility: [facility] Address: [address] [place] [address] Performed By: #### 5 7021-8 ####[facility] LABCLIA [id number] [place] [address] [place] WBC (Bld) [#/Vol] 5.09 10*3/uL Normal 3.70-11.00 [facility] Comment on above: Order Comment: Speci men Type: BLOOD SPECIMENOrdering Facility: [facility] Address: [address] [place] [address] Performed By: #### 5 7021-8 ####[facility] LABCLIA [id number] [place] [address] [place] Comprehensive metabolic 2000 panelon 02-18-2024 Albumin [Mass/Vol] 4.1 g/dL Normal 3.9-4.9 [facility] Comment on above: Order Comment: Speci men Type: BLOOD SPECIMENOrdering Facility: [facility] Address: [address] [place] [address] Performed By: #### 2 4323-8, 2132-04 ####[facility] LABCLIA [id number] [place] [address] [place] ALP [Catalytic activity/Vol] 82 U/L Normal 34-123 [facility] Comment on above: Order Comment: Speci men Type: BLOOD SPECIMENOrdering Facility: [facility] Address: [address] [place] [address] Performed By: #### 2 4323-8, 2132-04 ####[facility] LABCLIA [id number] [place] [id number] [place] ALT [Catalytic activity/Vol] 21 U/L Normal 7-38 [facility] Comment on above: Order Comment: Speci men Type: BLOOD SPECIMENOrdering Facility: [facility] Address: [address] [place] [id number] Performed By: #### 2 432-8, 2132-04 ####[facility] LABCLIA [id number] [address] [address] [place] Anion gap [Moles/Vol] 14 mmol/L Normal 8-15 [facility] Comment on above: Order Comment: Speci men Type: BLOOD SPECIMENOrdering Facility: [facility] Address: [address] [place], [place] [address] Performed By: #### 2 8, 2132-04 ####[facility] LABCLIA [id number] [place] [address] [place] AST [Catalytic activity/Vol] 36 U/L High 13-35 [facility] Comment on above: Order Comment: Speci men Type: BLOOD SPECIMENOrdering Facility: [facility] Address: [address] [place] [address] Performed By: #### 2 4323-03, 2132-04 ####[facility] LABCLIA [id number] [place] [address] [place] Bilirubin [Mass/Vol] 0.3 mg/dL Normal 0.2-1.3 [facility] Comment on above: Order Comment: Speci men Type: BLOOD SPECIMENOrdering Facility: [facility] Address: [address] [place] [id number] Performed By: #### 2 4323-8, 2132-04 ####[facility] LABCLIA [id number] [place] [address] [place] Calcium [Mass/Vol] 9.0 mg/dL Normal 8.5-10.2 [facility] Comment on above: Order Comment: Speci men Type: BLOOD SPECIMENOrdering Facility: [facility] Address: [address] [place] [address] Performed By: #### 2 432-8, 2132-04 ####[facility] LABCLIA [id number] [address] [address] [place] Chloride [Moles/Vol] 97 mmol/L Low 98-107 [facility] Comment on above: Order Comment: Speci men Type: BLOOD SPECIMENOrdering Facility: [facility] Address: [address] [place], [place] [address] Performed By: #### 2 4323-8, 2132-04 ####[facility] LABCLIA [id number] [place] [address] [place] CO2 [Moles/Vol] 20 mmol/L Low 22-30 [facility] Comment on above: Order Comment: Speci men Type: BLOOD SPECIMENOrdering Facility: [facility] Address: [address] [place] [address] Performed By: #### 2 4328, 2132-04 ####[facility] LABCLIA [id number] [place] [address] [place] Creatinine [Mass/Vol] 0.84 mg/dL Normal 0.58-0.96 [facility] Comment on above: Order Comment: Speci men Type: BLOOD SPECIMENOrdering Facility: [facility] Address: [address] [place] [address] Performed By: #### 2 4323-8, 2132-04 ####[facility] LABCLIA [id number] [place] [id number] [place] Creatinine and Glomerular filtration rate.predicted panel (S/P/Bld) 75 mL/min/1.73m??? Normal >=60 [facility] Comment on above: Order Comment: Speci men Type: BLOOD SPECIMENOrdering Facility: [facility] Address: [address] [place] [address] Result Comment: Ivonne mated Glomerular Filtration Rate (eGFR) is calculated using the 2020 CKD-EPI creatinine equation. This equation utilizes serum creatinine, sex, and age as parameters. The creatinine assay has traceable calibration to isotope dilution-mass spectrometry. Refer to KDIGO guidelines for clinical interpretation. In patients with unstable renal function, e.g. those with acute kidney injury, the eGFR may not accurately reflect actual GFR. Performed By: #### 2 432-8, 2132-04 ####[facility] LABCLIA [id number] [place] [address] [place] Glucose [Mass/Vol] 98 mg/dL Normal 74-99 [facility] Comment on above: Order Comment: Speci men Type: BLOOD SPECIMENOrdering Facility: [facility] Address: [address] [place] [address] Result Comment: The English Diabetes Association (ADA) provides guidance for cutoff values for fasting glucose and random glucose. The ADA defines fasting as no caloric intake for at least 8 hours. Fasting plasma glucose results between 100 to 125 mg/dL indicate increased risk for diabetes (prediabetes). Fasting plasma glucose results greater than or equal to 126 mg/dL meet the criteria for diagnosis of diabetes. In the absence of unequivocal hyperglycemia, results should be confirmed by repeat testing. In a patient with classic symptoms of hyperglycemia or hyperglycemic crisis, random plasma glucose results greater than or equal to 200 mg/dL meet the criteria for diagnosis of diabetes. Reference: Standards of Medical Care in Diabetes 2016, English Diabetes Association. Diabetes Care. 2016.39(Suppl 1). Performed By: #### 2 43210-21, 2132-04 ####[facility] LABCLIA [id number] [address] [address] [place] Potassium [Moles/Vol] 4.9 mmol/L Normal 3.7-5.1 [facility] Comment on above: Order Comment: Migel men Type: BLOOD SPECIMENOrdering Facility: [facility] Address: [address] [place] [address] Performed By: #### 2 43210-21, 2132-04 ####[facility] LABCLIA [id number] [address] [address] [place] Protein [Mass/Vol] 6.9 g/dL Normal 6.3-8.0 [facility] Comment on above: Order Comment: Speci men Type: BLOOD SPECIMENOrdering Facility: [facility] Address: [address] [place] [address] Performed By: #### 2 4323-8, 2132-04 ####[facility] LABCLIA [id number] [place] [address] [place] Sodium [Moles/Vol] 131 mmol/L Low 136-144 [facility] Comment on above: Order Comment: Speci men Type: BLOOD SPECIMENOrdering Facility: [facility] Address: [address] [place] [address] Performed By: #### 2 4323-8, 2132-04 ####[facility] LABCLIA [id number] [place] [address] [place] Urea nitrogen [Mass/Vol] 15 mg/dL Normal 7-21 [facility] Comment on above: Order Comment: Speci men Type: BLOOD SPECIMENOrdering Facility: [facility] Address: [address] [place] [address] Performed By: #### 2 4323-8, 2132-04 ####[facility] LABCLIA [id number] [place] [address] [place] Ferritin SerPl-mCncon 2023 Ferritin [Mass/Vol] 363.0 ng/mL High 14.7-205.1 [facility] Comment on above: Order Comment: Speci men Type: BLOOD SPECIMENOrdering Facility: [facility] Address: [address] [place] [address] Performed By: #### 5 0190-8, 72110-7, 05750-0, 2276-4 ####[facility] LABCLIA [id number] [place] [address] [place] Iron and Iron binding capaci ty panelon 02-18-2024 Iron [Mass/Vol] 56 ug/dL Normal 41-186 [facility] Comment on above: Order Comment: Speci men Type: BLOOD SPECIMENOrdering Facility: [facility] Address: [address] [place] [address] Performed By: #### 5 0190-8, 79598-6, 65398-6, 6-4 ####[facility] LABCLIA [id number] [place] [address] [place] Iron binding capacity [Mass/Vol] 293 ug/dL Normal 232-386 [facility] Comment on above: Order Comment: Speci men Type: BLOOD SPECIMENOrdering Facility: [facility] Address: [address] [place] [address] Performed By: #### 5 0190-8, 96413-7, 98849-3, 2275-4 ####[facility] LABIA [id number] [place] [address] [place] Iron/TIBC [Molar ratio] 19.1 % Normal 15.0-57.0 [facility] Comment on above: Order Comment: Speci men Type: BLOOD SPECIMENOrdering Facility: [facility] Address: [address] [place] [address] Performed By: #### 5 0190-8, 74504-6, 30879-5, 2275-4 ####[facility] LABIA [id number] [place] [address] [place] Lipid 1996 panelon Cholesterol [Mass/Vol] 114 mg/dL Normal <200 [facility] Comment on above: Order Comment: Speci men Type: BLOOD SPECIMENOrdering Facility: [facility] Address: [address] [place] [address] Result Comment: <200 mg/dL, Desirable 200-239 mg/dL, Borderline high >239 mg/dL, High Performed By: #### 5 0190-8, 92736-4, 71631-5, 2276-4 ####[facility] LABCLIA [id number] [place] [address] [place] Cholesterol in HDL [Mass/Vol] 57 mg/dL Normal >39 [facility] Comment on above: Order Comment: Migel kin Type: BLOOD SPECIMENOrdering Facility: [facility] Address: [address] [place] [address] Result Comment: 40-5 9 mg/dL, Acceptable >59 mg/dL, High: Negative risk factor for coronary heart disease <40 mg/dL, Low: Positive risk factor for coronary heart disease Performed By: #### 5 0190-8, 11573-2, 43257-9, 2276-4 ####[facility] LABCLIA [id number] [address] [place] Cholesterol in LDL [Mass/Vol] 46 mg/dL Normal <100 [facility] Comment on above: Order Comment: Migel sanderson Type: BLOOD SPECIMENOrdering Facility: [facility] Address: [address] [place] [address] Result Comment: <100 mg/dL, Optimal 100-129 mg/dL, Near optimal/above optimal 130-159 mg/dL, Borderline high 160-189 mg/dL, High >189 mg/dL, Very high Secondary prevention optimal LDL Cholesterol levels are recommended to be < 70 mg/dL Performed By: #### 5 0190-8, 09385-1, 07733-4, 2276-4 ####[facility] LABCLIA [id number] [address] [place] Cholesterol in LDL/Cholesterol in HDL [Mass ratio] 0.81 {ratio} Normal <2.54 [facility] Comment on above: Order Comment: Angelinai men Type: BLOOD SPECIMENOrdering Facility: [facility] Address: [address] [place] [address] Result Comment: Refe ajce: 1. National Cholesterol Education Program ATP III Guideline At-A-Glance Quick Desk Reference: National Heart, Lung, and Blood Holmes. National Institutes of Health. 2001: NIH Publication No. 01-3305. 2. An International Atherosclerosis Society position paper: global recommendations for the management of dyslipidemia: executive summary, Atherosclerosis. 2014: 232(2):410-413. Performed By: #### 5 0190-8, 82886-6, 84381-9, 2275- ####[facility] LABCLIA [id number] [address] [address] [place] Cholesterol in VLDL [Mass/Vol] 11 mg/dL Normal <30 [facility] Comment on above: Order Comment: Speci men Type: BLOOD SPECIMENOrdering Facility: [facility] Address: [address] [place] [address] Performed By: #### 5 0190-8, , 30714-6, 2275-11 ####[facility] LABCLIA [id number] [address] [address] [place] Cholesterol non HDL [Mass/Vol] 57 mg/dL Normal <130 [facility] Comment on above: Order Comment: Speci men Type: BLOOD SPECIMENOrdering Facility: [facility] Address: [address] [place] [address] Result Comment: <130 mg/dL, Optimal 130-159 mg/dL, Near optimal/above optimal 160-189 mg/dL, Borderline high 190-219 mg/dL, High >219 mg/dL, Very high Secondary prevention optimal non HDL Cholesterol levels are recommended to be <100 mg/dL Performed By: #### 5 0190-8, , 13204-4, 2275- ####[facility] LABCLIA [id number] [address] [address] [place] Cholesterol.total/Chol esterol in HDL [Mass ratio] 2.00 {ratio} Normal <5.10 [facility] Comment on above: Order Comment: Speci men Type: BLOOD SPECIMENOrdering Facility: [facility] Address: [address] [place] [id number] Performed By: #### 5 0190-8, 19516-0, 79298-9, 2275- ####[facility] LABCLIA [id number] [place] [id number] [place] FASTING TIME 13 hrs Normal [facility] Comment on above: Order Comment: Speci men Type: BLOOD SPECIMENOrdering Facility: [facility] Address: [address] [place] [address] Performed By: #### 5 0190-8, 18794-4, 68676-2, 6-4 ####[facility] LABCLIA [id number] [place] [address] [place] Triglyceride [Mass/Vol] 57 mg/dL Normal <150 [facility] Comment on above: Order Comment: Speci men Type: BLOOD SPECIMENOrdering Facility: [facility] Address: [address] [place] [address] Result Comment: <150 mg/dL, Normal 150-199 mg/dL, Borderline high 200-499 mg/dL, High >499 mg/dL, Very high Performed By: #### 5 0190-8, 87447-0, 58029-3, 2275-4 ####[facility] LABCLIA [id number] [place] [address] [place] Magnesium SerPl-mCncon 02-17 Magnesium [Mass/Vol] 1.9 mg/dL Normal 1.7-2.3 [facility] Comment on above: Order Comment: Speci men Type: BLOOD SPECIMENOrdering Facility: [facility] Address: [address] [place] [address] Performed By: #### 5 0190-8, 94879-7, 25450-9, 2275-4 ####[facility] LABCLIA [id number] [place] [address] [place] Vit B12 SerPl-mCncon 024 Cobalamin (Vitamin B12) [Mass/Vol] 673 pg/mL Normal 232-1245 [facility] Comment on above: Order Comment: Speci men Type: BLOOD SPECIMENOrdering Facility: [facility] Address: [address] [place] [address] Performed By: #### 2 4323-8, 2132-9 ####[facility] LABCLIA [id number] [place] [address] [place] Large Joint Arthro/Inj: L kn ee jointon 12-17-2023 Edgard Dubois P A-C 12/17/2023 12:31 PM Large Joint Arthro/Inj: L knee joint Informed Consent Consent Obtained: Verbal [place]is Protocol A moment to CARE was completed. SIGN IN Personnel directly involved with the procedure wore the appropriate PPE. Special Equipment: N/A Patient/Surrogate Stated/Verified: Patient name, Date of , Relevant allergies and Intended procedure TIME OUT Relevant labs, photos, and/or imaging studies have been reviewed. Correct side/site marked and visible. Medications required for procedure verified. No fire risk assessment and interventions applicable. No implant(s) inserted. 12/17/2023 12:30 PM The procedure site was prepped in the usual sterile fashion. Site: L knee joint Medications: 80 mg triamcinolone acetonide 40 mg/mL Anesthetics: 3 mL lidocaine (PF) 10 mg/mL (1 %) Outcome: Tolerated well, no immediate complications Post-injection instructions were reviewed with the patient and the patient voiced understanding of these instructions. SIGN OUT All instruments, equipment, possible retained foreign bodies accounted for. [facility] DXA-AXIAL SKELETONon 023 [facility] NAVI SCREENINGon 01-04-2023 [facility] SCREENINGon 01-01-2022 [facility] Culture, Blood (WB)on 2016 CUB BCGRAM STAIN: GRAM POSITIVE COCCI CALLED TO Blanca LAMA 07/18/17 1907 BY JOHN Possible skin contamination, further Identification and sensitivity will be performed only by physician's request. No anaerobic bacteria isolated. ORGANISM 1: Alpha Hemolytic StreptococcusAmount Growth Growth Normal [facility] Comment on above: Performed By: #### M 200.1000, M100.636 ####[facility] [address] [place], [address] Culture, Deep Woundon 2016 WBC (Leukocytes) Gram StainGram Stain 2+ Red Blood Cells 2+ White Blood Cells No organisms seen Wound CultureORGANISM 1: Citrobacter freundiiAmount Growth Rare Citrobacter freundii: REACTION Amoxacillin/Clavulanic Acid $ 4 R Cefazolin $ >=64 R Cefepime $ <=1 S Ceftriaxone $ <=1 S Ciprofloxacin $ 0.5 S Ertapenim $$$ <=0.5 S Gentamicin $ <=1 S Imipenem *NF <=0.25 S Levofloxacin $ <=0.12 S Tobramycin $ <=1 S Trimethoprim/Sulfametho $ <=20 S(NF) indicates non-formulary drug at [facility]. Approval by Infectious Disease Specialist required before non-formulary drugs may be ordered and/or dispensed. Cult, AnaerobicNo anaerobic bacteria isolated. Normal [facility] Comment on above: Performed By: #### M 100.1500 ####[facility] [address] [facility] [place], [address] 12 Lead Electrocardiogramon 07-22-2017 12 Lead [facility]ogram [facility] [address] [place], [place] [address] Lead EKG1/ 1621MR#: [id number] Acct: [id number]: SUSAN CALDERON Rep #: [id number]: 1955 62 From: Minor Jones MDAttending Dr: Mayra Lloyd MD Status: DIS INOrdering Dr: Susan June MD Date: 07/09/17Location: MS2 Sex: F CAdmitted: 07/07/17Test Reason : PRE OPBlood Pressure : / mmHGVent. Rate : 091 BPM Atrial Rate : 091 BPMP-R Int : 190 ms QRS Dur : 080 msQT Int : 366 ms P-R-T Axes : 033 -18 032 degreesQTc Int : 450 msNormal sinus rhythmNormal ECGWhen compared with ECG of 21-NOV-2005 23:47,No significant change was foundConfirmed by MINOR JONES MD ([id number]), avid editor MISHEL HANNAH ([id number]) on 07/22/2017 3:16:15 PMReferred By: ROYER Confirmed By:MINOR JONES MD07/22/17 1516Date Minor Jones MDCC: Cee Christianson MD Signed Normal [facility] Culture, Blood (WB)on 2016 CUB BC No growth in 5 days. Normal [facility] Comment on above: Performed By: #### M 200.1000 ####[facility] [address] [place], [address] 12 Lead Electrocardiogramon 07-20-2017 12 Lead Electrocardiogram [facility] [address] [place], [place] [address] Lead EKG109/14/16 1419MR#: [id number] Acct: [id number]: SUSAN CALDERON Rep #: [id number]: 1955 62 From: Minor Jones MDAttracheal Dr: Status: DEP EROrdering Dr: Stefano Garcia MD Date: 07/15/17Location: ED Sex: F CAdmitted:Test Reason : EDEMABlood Pressure : / mmHGVent. Rate : 087 BPM Atrial Rate : 087 BPMP-R Int : 192 ms QRS Dur : 088 msQT Int : 360 ms P-R-T Axes : 011 -10 018 degreesQTc Int : 433 msNormal sinus rhythmNormal ECGConfirmed by MINOR JONES MD ([id number]), avid editor MISHEL HANNAH ([id number]) on 07/20/2017 3:28:48 PMReferred By: SO Confirmed By:MINOR JONES MD07/20/17 1528Date Minor Jones MDCC: Cee Christianson MD Signed Normal [facility] BC GPC IDon 07-19-2017 BC GPC ID BC GPC IDStaphylococ cus sp. Not DetectedEnterococcus sp. Not DetectedStreptococcus spp. Streptococcus sp. (NOT S. pneumoniae)Listeria spp Not DetectedvanA/vanB Not DetectedmecA Not DetectedNAAT METHOD Testing was performed using nucleic acid amplification ORGANISM 1: Strep not Strep pneumo Normal [facility] Comment on above: Performed By: #### M 200.1000, M100.636 ####[facility] [address] [place], [address] CBC W/Diff, Automatedon 12- Absolute Neut 6.6 X10 3/uL Normal 2.0-7.7 [facility] Comment on above: Performed By: #### L 100.0100 ####[facility] [address] [place], [address] Basophils/100 WBC Auto (Bld) 0.8 % Normal 0-1 [facility] Comment on above: Performed By: #### L 100.0100 ####[facility] [address] [place], [address] Eosinophils/100 leukocytes 2.5 % Normal 0-5 [facility] Comment on above: Performed By: #### L 100.0100 ####[facility] [address] [place], [address] Erythrocyte distribution width Auto Ratio (RBC) 12.4 % Normal 11.6-14.6 [facility] Comment on above: Performed By: #### L 100.0100 ####[facility] [address] [place], [address] Erythrocytes (RBC) 2.87 M/mm3 Low 4.2-5.4 [facility] Comment on above: Performed By: #### L 100.0100 ####[facility] [address] [place], [address] Hematocrit (HCT) 28.9 % Low 37-47 [facility] Comment on above: Performed By: #### L 100.0100 ####[facility] [address] [place], [address] Hemoglobin mass conc (Bld) 9.2 g/dL Low 12.0-15.0 [facility] Comment on above: Performed By: #### L 100.0100 ####[facility] [address] [place], [address] HYPOCHROMASIA 2+ Normal [facility] Comment on above: Performed By: #### L 100.0100 ####[facility] [address] [place], [address] IM GRAN % 0.700 % Normal 0.0-0.9 [facility] Comment on above: Result Comment: IG% - Immature Granulocytes (promyelocytes, myelocytes andmetamyelocytes) > 1% indicates that a LEFT SHIFT is Present. Performed By: #### L 100.0100 ####[facility] [address] [place], [address] Lymphocytes 2.80 X10 3/ul Normal 0.83-4.51 [facility] Comment on above: Performed By: #### L 100.0100 ####[facility] [address] [place], [address] Lymphocytes/100 leukocytes 26.1 % Normal 19-41 [facility] Comment on above: Performed By: #### L 100.0100 ####[facility] [address] [place], [address] MCH 32.1 pg High 27.0-32.0 [facility] Comment on above: Performed By: #### L 100.0100 ####[facility] [address] [place], [address] MCHC mass conc (RBC) 31.8 g/gl Low 32-36 [facility] Comment on above: Performed By: #### L 100.0100 ####[facility] [address] [place], [address] MCV 100.7 fL High 81-99 [facility] Comment on above: Performed By: #### L 100.0100 ####[facility] [address] [place], [address] Monocytes/100 leukocytes 8.0 % Normal 0-10 [facility] Comment on above: Performed By: #### L 100.0100 ####[facility] [address] [place], [address] Neutrophils/100 WBC Auto (Bld) 61.9 % Normal 47-70 [facility] Comment on above: Performed By: #### L 100.0100 ####[facility] [address] [place], [address] Platelet mean volume (PMV) 9.4 fL Normal 6.2-12.0 [facility] Comment on above: Performed By: #### L 100.0100 ####[facility] [address] [place], [address] Platelets 458 10*3/uL High 150-450 [facility] Comment on above: Performed By: #### L 100.0100 ####[facility] [address] [place], [address] PLT EST ADEQUATE Normal ADEQ [facility] Comment on above: Performed By: #### L 100.0100 ####[facility] [address] [place], [address] RDW SD 46.1 fl High 35.1-43.9 [facility] Comment on above: Performed By: #### L 100.0100 ####[facility] [address] [place], [address] SMEAR COMMENT SCANNED Normal [facility] Comment on above: Performed By: #### L 100.0100 ####[facility] [address] [place], [address] WBC (Leukocytes) 10.1 10*3/uL Normal 4.4-11.0 [facility] Comment on above: Performed By: #### L 100.0100 ####[facility] [address] [place], [address] Comprehensive Metabolic Prof ilon 07-19-2017 A/G 0.5 RATIO Low 0.9-2.4 [facility] Comment on above: Performed By: #### L 500.4050 ####[facility] [address] [place], [address] Alanine aminotransferase (ALT) 24 U/L Normal 12-78 [facility] Comment on above: Performed By: #### L 500.4050 ####[facility] [address] [place], [address] Albumin 2.0 g/dL Low 3.4-5.0 [facility] Comment on above: Result Comment: Sharon martin note revised Albumin AND Globulin reference rangeeffective 2017. Performed By: #### L 500.4050 ####[facility] [address] [place], [address] Alkaline phosphatase (ALP) 43 U/L Low 45-117 [facility] Comment on above: Performed By: #### L 500.4050 ####[facility] [address] [place], [address] Aspartate aminotransferase (AST) 27 U/L Normal 15-37 [facility] Comment on above: Performed By: #### L 500.4050 ####[facility] [address] [place], [address] Bilirubin (total) 0.20 mg/dL Normal 0.20-1.00 [facility] Comment on above: Performed By: #### L 500.4050 ####[facility] [address] [place], [address] BUN (urea nitrogen) 13.0 RATIO Normal 10-20 [facility] Comment on above: Performed By: #### L 500.4050 ####[facility] [address] [place], [address] Calcium 8.0 mg/dL Low 8.5-10.1 [facility] Comment on above: Performed By: #### L 500.4050 ####[facility] [address] [place], [address] Chloride 102 mmol/L Normal 98-107 [facility] Comment on above: Performed By: #### L 500.4050 ####[facility] [address] [place], [address] CO2 29.0 mmol/L Normal 21.0-32.0 [facility] Comment on above: Performed By: #### L 500.4050 ####[facility] [address] [place], [address] Creatinine 0.38 mg/dL Low 0.55-1.02 [facility] Comment on above: Result Comment: The validity of the calculated GFR AND GFRAA in patients over70 years has not been determined. Clinical correlation isessential. Performed By: #### L 500.4050 ####[facility] [address] [place], [address] eGFR (non-black) 180 mL/min/{1.73_m2} Normal >60 [facility] Comment on above: Result Comment: Non- GFR Calc Performed By: #### L 500.4050 ####[facility] [address] [place], [address] eGFR (non-black) 217 mL/min/{1.73_m2} Normal >60 [facility] Comment on above: Result Comment: Afri can English GFR Calc Performed By: #### L 500.4050 ####[facility] [address] [place], [address] Estimated CRCL 141.86 ml/min Normal [facility] Comment on above: Performed By: #### L 500.4050 ####[facility] [address] [place], [address] GAP 9 Normal 5-15 [facility] Comment on above: Performed By: #### L 500.4050 ####[facility] [address] [place], [address] Globulin 4.3 g/dL High 2.2-4.2 [facility] Comment on above: Performed By: #### L 500.4050 ####[facility] [address] [place], [address] Glucose mass conc 91 mg/dL Normal 70-110 [facility] Comment on above: Performed By: #### L 500.4050 ####[facility] [address] [place], [address] Potassium molar conc 3.3 mmol/L Low 3.5-5.1 [facility] Comment on above: Performed By: #### L 500.4050 ####[facility] [address] [place], [address] Sodium 140 mmol/L Normal 136-145 [facility] Comment on above: Performed By: #### L 500.4050 ####[facility] [address] [place], [address] T PROT 6.3 g/dL Low 6.4-8.2 [facility] Comment on above: Performed By: #### L 500.4050 ####[facility] [address] [place], [address] Urea nitrogen 5 mg/dL Low 7-18 [facility] Comment on above: Performed By: #### L 500.4050 ####[facility] [address] [place], [address] Discharge Instructionon Discharge Instruction [facility] [address] [place], [place] [address]Rlrudcqzrfck for Home/Discharge Kjyogdtoawyt68/04/17 1134#: [id number] Acct: [id number]: SUSAN CALDERON Rep #: [id number]: 1955 62 From: Susan June MDPCP: Cee Christianson MD Status: ADM INDischarge Diet: No RestrictionsDischarge Activity: Return to Normal Activity, May not drive while taking narcotic painmedications.Lifting Restrictions: no lifting greater than 20 poundsAdditional Dressing/Incision Instructions:: Leave dressing in place. Cover to avoid getting itwet if you want to shower. otherwise - sponge bathe onlyAllergies/Adverse Reactions:AllergiesPenicil melania Allergy (Verified 07/17/17 12:26)AnaphylaxisMedicatio ns to take at DischargeAtenolol [Tenormin (beta Theodora)] 25 mg PO DAILY 07/07/17Lisinopril [Zestril] 20 mg PO DAILY 07/07/17Montelukast [Singulair] 10 mg PO DAILY 07/07/17Oxycodone [Oxyir] 5 mg PO Q6H PRN PRN #30 tablet 07/14/17torvastatin Calcium 10 mg PO DAILY 07/15/17Furosemide [Lasix] 20 mg PO DAILY #5 tablet 07/15/17Gabapentin [Neurontin] 300 mg PO 4X/DAY 07/15/17Fluticasone 44 Mcg [Flovent (SP)] 2 puff INHALATION BID PRN 07/17/17Ciprofloxacin [Cipro] 500 mg PO BID #10 tab 07/19/17The following prescriptions were given:Ciprofloxacin [Cipro] 500 mg PO BID #10 tabPrimary Care Physician:Cee Christianson MD [Primary Care Provider] -Please Follow Up With: Susan June MD - call When: to be seen on Wednesday, please call for time, thank you07/19/17 1519 Date Susan June [facility]: Cee Christianson MD Normal [facility] MRSA Wound DNA by PCRon MRSA RESULT Negative Normal Negative [facility] Comment on above: Order Comment: Comme nts: abdominal woundSpecimen Source? abdominal wound Performed By: #### L 8200.1075 ####[facility] [address] [place], [address] SA RESULT Negative Normal Negative [facility] Comment on above: Order Comment: Comme nts: abdominal woundSpecimen Source? abdominal wound Performed By: #### L 8200.1075 ####[facility] [address] [place], [address] Operative Reporton Operative Report [facility] [address] [place] [address]Bdcrgkgjq Baeird64/24/172023MR#: [id number] Acct: [id number]: SUSAN CALDERON Rep #: [id number]: 1955 62 From: Susan June MDPCP: Cee Christianson MD Status: DIS IN YLocation: MS2 [id number] of OperationDate of Procedure: 07/09/17Pre-Operative Diagnosis: K 50.812 small bowel obstructionPost-Operative Diagnosis: Same, necrotic-appearing small bowelSurgery/Procedure Performed:: Diagnostic laparoscopy, converted to open exploratory laparotomy,lysis of adhesions, small bowel resectionDescription of Surgical Findings::dense adhesions in the area of previous hysterectomy with loop of bowel ileum twisted uponitself - appeared necroticConcern for retroperitoneal adhesions and bleeding and therefore intraoperative consultationwith Dr. Reaves was obtainedOR Blacksmith Apprentice: Dasha Reaves of Anesthesia:: GeneralAnesthesiologist: Cathy Hernandez removed: small bowel - segment of ileumDrains: noneEstimated Blood Loss (mL): 200 mlFluids Replaced: see anesthesia noteDescription of Procedure:After informed consent was given the patient was brought to the Operating Room. Appropriatetime out protocol was followed.The patient was then placed under general anesthesia. The patient s abdomen was then preppedwith a sterile surgical skin preparation and sterile surgical drapes were placed. An areasuperior to the umbilicus was grasped with penetrating clamps and the skin and subcutaneoustissues were infiltrated with local anesthetic. A small skin incision was then made. Thefascia was visualized and opened using sharp dissection under direct visualization. Theintraoperative cavity was then entered. An 11 mm trocar was placed in the intraabdominalcavity and a CO2 pneumoperitoneum was created. A 10 mm laparoscopic was then inserted into theabdomen. There was no evidence of injury from insertion of the trocar or entrance into theabdomen. There was cloudy peritoneal fluid noted. The bowel loops were greatly dilated whichobscured adequate visualization. Under direct visualization, a 5mm trocar was placed along thelower midline. A bowel grasper was used to grasp omental adhesion and separate them from theanterior abdominal wall to create better visualization. Despite this, visualization was stillpoor. Further examination in the pelvis revealed necrotic appearing bowel. Given this, thelaparoscopic procedure was converted to an open procedure.A lower midline incision was made with a 10 blade scalpel. The fascia was then divided,carefully avoiding any intraabdominal contents. Hemostasis was checked with electrocautery.Initially a Isiah retractor was used for intraoperative exposure, but this was changed to aBookwalter retractor due to the patient's body habitus. There were dense adhesions in thepelvis with loops of small bowel trapped within these. Dense adhesions made evaluation of theanatomy difficult and also there was mesenteric bleeding encountered. Intraoperativeconsultation with Dr. Reaves was obtained. With his assistance, the anatomy was betterdelineated such that the adhesions were taken down and the bowel was freed from the pelvis.There was a segment of small intestine that was grossly necrotic. Therefore, this portion ofthe small bowel (which was ileum) would be resected. Normal appearing bowel proximal anddistal to the area of necrotic bowel was chosen for the site of the proximal and distalanastomosis. An opening of the mesentery near the bowel was then created at both these sites.A linear gastrointestinal stapling device was then placed across the bowel at both these sites,thus transecting and stapling the bowel. The mesentery was then clamped and sequentiallytransected with the vasculature ligated with vicryl suture. The small bowel was thusly freedand forwarded to the back table to be sent to pathology for analysis. Small enterotomies weremade in each end of the small intestine. A linear 45 mm stapler was then placed in theopenings and fired, thus creating a stapled oehk-vl-llqp, functional end-to-end anastomosis.The resulting opening from the stapled end was then stapled using a TL 60 stapling device.The anastomosis was carefully examined. It was palpated and of adequate lumen. No activebleeding or fecal leakage or bile leakage was noted. The bowel was replaced in theintraabdominal cavity. With the bowel in place, it was noted that the appendix was in thevicinity of the anastomosis, and it was felt that appendectomy should be done to prevent futurecomplications with potential appendicitis. The mesentery of the appendix was transected andligated with vicryl suture. The base of the appendix was thus freed of surrounding tissue, itwas clamped and then ligated doubly with vicryl suture. The appendix was then transected andthe mucosa of the base was cauterized. The stump of the appendix was then invaginated into thececum with a z-plasty suture.The small bowel anastomosis was then again examined. The proximal end appeared dusky. Becauseof this, the anastomosis was redone. Normal appearing bowel proximal and distal to the area ofdusky was chosen for the site of the proximal and distal anastomosis. An opening of themesentery near the bowel was then created at both these sites. A linear gastrointestinalstapling device was then placed across the bowel at both these sites, thus transecting andstapling the bowel. The mesentery was then clamped and sequentially transected with thevasculature ligated with vicryl suture. This segment of the small bowel was also forwarded topathology. Small enterotomies were made in each end of the small intestine. A linear 45 mmstapler was then placed in the openings and fired, thus creating a stapled sxkw-np-yvnh,functional end-to-end anastomosis. The resulting opening from the stapled end was then stapledusing a TL 60 stapling device. The anastomosis was carefully examined. It was palpated andof adequate lumen. No active bleeding or fecal leakage or bile leakage was noted.The bowel was then replaced back into the intraabdominal cavity. The intraabdominal cavity wasvigorously irrigated with warmed normal saline. All irrigant fluid was aspirated out. Onceagain, the bowel anastomosis was checked and appeared healthy. No active bleeding orfecal/bile leakage was noted.The fascia was reapproximated with looped PDS in a running fashion.The wound was vigorously irrigated and painted with Betadyne. The skin was then reapproximatedwith skin francisca. Sterile dressing was applied.Patient tolerated procedure well and was then extubated.She was brought to the Recovery Room in stable condition.- Complicationsnone noted- Admit VTE DocumentationVTE Present on Admission: YesVTE Mechan Device Prophylaxis: SCD'sVTE Pharm Prophylaxis ordered?: Yes07/19/17 1612 Date Susan June [facility]: Susan June MD; Cee Christianson MD Signed Normal [facility] Abdomen/Pelvis W IV Cont ONL Yon 07-17-2017 Abdomen/Pelvis W IV Cont ONLY [facility] [address] [place], [place] [address]Foeryio/Pelvis W IV Cont ONLYMR#: [id number] Acct: [id number]: SUSAN CALDERON Rep #: [id number]: 1955 F 62 From: Aravind Hernandez MDPCP: Cee Christianson MD Status: REG ERStudy: Abdomen/Pelvis W IV Cont ONLY Date of Exam: 07/17/17Exam# [id number] Ordering Dr: Kamini Rosa MDSTUDY: CT ABDOMEN AND PELVIS WITH CONTRASTREASON FOR EXAM: Female, 62 years old. Infection at recent surgicalsite. Bowel resection.RADIATION DOSAGE (If Supplied By Facility): CTDIvol = ( 17.99 ) mGy, DLP =( 1461.91 ) mGycmTECHNIQUE: Transaxial images were obtained from the dome of the diaphragmto the symphysis pubis without oral contrast. 100 ml of Isovue 300contrast was administered. Sagittal and coronal images were reconstructed.Individualiz ed dose optimization techniques were used for this CT.COMPARISON: July 07, 2017. FINDINGS:Low er lung atelectasis. The visualized portions of the heart are withinnormal limits.Hypodensities suggesting small cysts in the liver. Normal gallbladder andextrahepatic biliary system. Normal spleen. Normal pancreas.Normal bilateral adrenal glands.Normal right kidney. Normal left kidney.Normal visualized stomach. Postoperative change of the distal smallintestine. There is mild pneumoperitoneum seen in the right lower abdomenNormal colon. There is non-visualization of the appendix.Normal abdominal aorta. Normal inferior vena cava. Normalretroperitoneum.Norm al urinary bladder. There is absence of the uterus consistent with aprior hysterectomy. There is a small amount of free fluid in the pelvisPostoperative changes of the abdominal wall. There is 5.2 x 3.6 cm fluidcollection deep to skin francisca hematoma or abscess. There are diffusedegenerative changes of the visualized lumbar spine. Postoperative changeswith hardware and posterior fusion from L4 to S1. ORDER #: [id number] CT/Abdomen/Pelvis W IV Cont ONLYIMPRESSION:Postoperati ve changes. Mild residual pneumoperitoneum on the right.Collection of the abdominal wall with possible abscess.N.B. : The above information has been verbally conveyed by Aravind Hernandez MD to Dr. Kamini Rosa , Referring Physician, on 07/17/2017 15:11:31(ET).Electronicall y Signed:Aravind Hernandez MD at 14:55 ESTTel , Service support , D.B. : The above information has been verbally conveyed by Aravind Hernandez MD to Dr. Kamini Rosa , Referring Physician, on 07/17/2017 15:11:31(ET).CC: Kamini Rosa MD; Cee Christianson MD Online Marketing Director:Signed [facility] Basic Metabolic Profile (BMP )on 07-17-2017 BUN (urea nitrogen) 11.7 RATIO Normal 10-20 [facility] Comment on above: Performed By: #### L 500.2500 ####[facility] [address] [place], [address] Calcium 8.4 mg/dL Low 8.5-10.1 [facility] Comment on above: Performed By: #### L 500.2500 ####[facility] [address] [place], [address] Chloride 94 mmol/L Low 98-107 [facility] Comment on above: Performed By: #### L 500.2500 ####[facility] [address] [place], [address] CO2 34.0 mmol/L High 21.0-32.0 [facility] Comment on above: Performed By: #### L 500.2500 ####[facility] [address] [place], [address] Creatinine 0.43 mg/dL Low 0.55-1.02 [facility] Comment on above: Result Comment: The validity of the calculated GFR AND GFRAA in patients over70 years has not been determined. Clinical correlation isessential. Performed By: #### L 500.2500 ####[facility] [address] [place], [address] eGFR (non-black) 159 mL/min/{1.73_m2} Normal >60 [facility] Comment on above: Result Comment: Non- GFR Calc Performed By: #### L 500.2500 ####[facility] [address] [place], [address] eGFR (non-black) 193 mL/min/{1.73_m2} Normal >60 [facility] Comment on above: Result Comment: Afri can English GFR Calc Performed By: #### L 500.2500 ####[facility] [address] [place], [address] Estimated CRCL 125.36 ml/min Normal [facility] Comment on above: Performed By: #### L 500.2500 ####[facility] [address] [place], [address] GAP 8 Normal 5-15 [facility] Comment on above: Performed By: #### L 500.2500 ####[facility] [address] [place], [address] Glucose mass conc 98 mg/dL Normal 70-110 [facility] Comment on above: Performed By: #### L 500.2500 ####[facility] [address] [place], [address] Potassium molar conc 3.3 mmol/L Low 3.5-5.1 [facility] Comment on above: Performed By: #### L 500.2500 ####[facility] [address] [place], [address] Sodium 136 mmol/L Normal 136-145 [facility] Comment on above: Performed By: #### L 500.2500 ####[facility] [address] [place], [address] Urea nitrogen 5 mg/dL Low 7-18 [facility] Comment on above: Performed By: #### L 500.2500 ####[facility] [address] [place], [address] CBC W/Diff, Automatedon 12-0 2-2017 Absolute Neut 11.3 X10 3/uL High 2.0-7.7 [facility] Comment on above: Performed By: #### L 100.0100 ####[facility] [address] [place], [address] Basophils/100 WBC Auto (Bld) 0.3 % Normal 0-1 [facility] Comment on above: Performed By: #### L 100.0100 ####[facility] [address] [place], [address] Eosinophils/100 leukocytes 1.4 % Normal 0-5 [facility] Comment on above: Performed By: #### L 100.0100 ####[facility] [address] [place], [address] Erythrocyte distribution width Auto Ratio (RBC) 12.4 % Normal 11.6-14.6 [facility] Comment on above: Performed By: #### L 100.0100 ####[facility] [address] [place], [address] Erythrocytes (RBC) 3.08 M/mm3 Low 4.2-5.4 [facility] Comment on above: Performed By: #### L 100.0100 ####[facility] [address] [place], [address] Hematocrit (HCT) 31.1 % Low 37-47 [facility] Comment on above: Performed By: #### L 100.0100 ####[facility] [address] [place], [address] Hemoglobin mass conc (Bld) 10.0 g/dL Low 12.0-15.0 [facility] Comment on above: Performed By: #### L 100.0100 ####[facility] [address] [place], [address] IM GRAN % 0.400 % Normal 0.0-0.9 [facility] Comment on above: Result Comment: IG% - Immature Granulocytes (promyelocytes, myelocytes andmetamyelocytes) > 1% indicates that a LEFT SHIFT is Present. Performed By: #### L 100.0100 ####[facility] [address] [place], [address] Lymphocytes 2.05 X10 3/ul Normal 0.83-4.51 [facility] Comment on above: Performed By: #### L 100.0100 ####[facility] [address] [place], [address] Lymphocytes/100 leukocytes 14.0 % Low 19-41 [facility] Comment on above: Performed By: #### L 100.0100 ####[facility] [address] [place], [address] MCH 32.5 pg High 27.0-32.0 [facility] Comment on above: Performed By: #### L 100.0100 ####[facility] [address] [place], [address] MCHC mass conc (RBC) 32.2 g/gl Normal 32-36 [facility] Comment on above: Performed By: #### L 100.0100 ####[facility] [address] [place], [address] MCV 101.0 fL High 81-99 [facility] Comment on above: Performed By: #### L 100.0100 ####[facility] [address] [place], [address] Monocytes/100 leukocytes 6.4 % Normal 0-10 [facility] Comment on above: Performed By: #### L 100.0100 ####[facility] [address] [place], [address] Neutrophils/100 WBC Auto (Bld) 77.5 % High 47-70 [facility] Comment on above: Performed By: #### L 100.0100 ####[facility] [address] [place], [address] Platelet mean volume (PMV) 9.6 fL Normal 6.2-12.0 [facility] Comment on above: Performed By: #### L 100.0100 ####[facility] [address] [place], [address] Platelets 462 10*3/uL High 150-450 [facility] Comment on above: Performed By: #### L 100.0100 ####[facility] [address] [place], [address] RDW SD 46.1 fl High 35.1-43.9 [facility] Comment on above: Performed By: #### L 100.0100 ####[facility] [address] [place], [address] WBC (Leukocytes) 14.6 10*3/uL High 4.4-11.0 [facility] Comment on above: Performed By: #### L 100.0100 ####[facility] [address] [place], [address] Chest 1 View (Portable)on Chest 1 View (Portable) [facility] [address] [place], [place] [address]Tvbfg 1 View (Portable)MR#: [id number] Acct: [id number]: SUSAN CALDERON Lance Rep #: [id number]: 1955 F 62 From: Aravind Hernandez MDPCP: Cee Christianson MD Status: REG ERStudy: Chest 1 View (Portable) Date of Exam: 07/17/17Exam# [id number] Ordering Dr: Mendoza Kline MDSTUDY: X-RAY CHESTREASON FOR EXAM: Female, 62 years old. Recent small bowel resection.Infection.TECHNI QUE: Single AP portable view of the chest.COMPARISON: July 09, 2017. FINDINGS:The lungs are clear and expanded. There is no demonstrated pleuralabnormality.Normal size heart. Normal mediastinum and yash. Normal visualizedpulmonary arteries. Normal visualized aortic arch and descending thoracicaorta.Mild degenerative change of the spine and shoulders.There is no demonstrated abnormality of the visualized soft tissuestructures of the upper abdomen. ORDER #: [id number] RAD/Chest 1 View (Portable)IMPRESSION:Degen erative changes, as described above. No demonstrated acutecardiopulmonary process.Electronically Signed:Aravind Hernandez MD at 16:32 ESTTel , Service support , OP: Cee Christianson MD; Mendoza Kline MD Online Marketing Director:Signed Normal [facility] Emergency Department Summary on 07-17-2017 Emergency Department Summary [facility] [address] [facility] [place], [place] [address]Xsnbetisd Department Rgczesm84/02/17 1250#: [id number] Acct: [id number]: SHERRICALEBCECILIASUASN A Rep #: [id number]: 1955 62 From: Kamini Rosa MDPCP: Cee Christianson MD Status: REG ER- ER Visit SummaryDate of Service: 07/17/17Chief Complaint: CellulitsHistory of Present Illness: The patient is a 62 F presenting with abdominal wall cellulitis.Patient had a small bowel resection per Dr. June on 07/09. Patient states [facility] due to increasing redness and drainage around her incision. They sent her to the EDfor further evaluation. She denies fever. Denies nausea vomiting or other complaints.Physical Examination: Vitals are stable. Patient is afebrile. Alert no acute distress.HEENT exam is unremarkable.Neck is supple.Lungs are clear and equal bilaterally.Heart is regular rate and rhythm.Abdomen is soft mildly tender with no rebound. [place] intact with surrounding erythema andpurulent drainage.Extremities are unremarkable.Skin is warm and dry.Remainder of exam is unremarkable.Emergency Department Course and Treatment: CBC shows a white count of 14.6. CT abd/pelvisshows fluid collection with possible abscess. Discussed with Dr Kline who will evaluate thepatient in the ED.Disposition: per Dr Brewstermpression: Post operative wound infectionThis note was generated with KOPIS MOBILEation software. It may contain incorrect words,spelling, and punctuation that were not noted in review of the chart prior to signingED Disposition- Plan for ED Patient:Chief Complaint: Wound CheckReferrals:Amanda Christianson MD [Primary Care Provider] -What to do if you have ProblemsFor any increased pain, shortness of breath, bleeding, nausea or vomiting, chest pain, or anyunexpected problems, contact your Primary Care Provider. Call [facility] ([phone])or report to the closest Emergency Room.Call 911 if necessary.07/17/[address] [facility] Signature (If Indicated): Date CC: Cee Christianson MD [facility] History and Physical Examon 07-17-2017 History and Physical Exam [facility] [address] [place], [place] [address]Djerobm and Gnssmiqt24/02/17 1613MR#: [id number] Acct: [id number]: SUSAN CALDERON Rep #: [id number]: 1955 62 From: Mendoza Kline MDPCP: Cee Christianson MD Status: REG ER YLocation: EDProblem List(1) SBO (small bowel obstruction)Status: Acute(2) Wound infection after surgeryStatus: Acute(3) HTN (hypertension)Status: ChronicQualifiers:(4) HLD (hyperlipidemia)Status: ChronicQualifiers:(5) Tobacco useStatus: ChronicHistory and PhysicalDate of Admission: 07/17/17The patient is a 62 y.o. female who presents with incisional pain, redness and wound drainage.She underwent an exploratory laparotomy and resection of small bowel on July 09. She hadfluid overload post operatively. She was found to have an elevated WBC count and CT scandemonstrated a superficial wound infection and cellulitis and a small amount of free air -likely residual from surgery?The wound was opened in 2 placed, drained and packed with iodoform gauze.07/17/17 1622 Date [facility]line [facility] Signature: Date (if applicable)CC: Cee Christianson MD; Mendoza Kline MD Signed [facility] History and Physical Exam [facility]Medical [facility] [address] [place], [place] [address]Hclwbwp and Saxahlmf08/02/17 1618MR#: [id number] Acct: [id number]: SUSAN CALDERON Rep #: [id number]: 1955 62 From: Mendoza Kline MDPCP: Cee Christianson MD Status: REG ER YLocation: EDProblem List(1) SBO (small bowel obstruction)Status: Acute(2) Wound infection after surgeryStatus: Acute(3) HTN (hypertension)Status: ChronicQualifiers:(4) HLD (hyperlipidemia)Status: ChronicQualifiers:(5) Tobacco useStatus: ChronicHistory of Present IllnessDate of Admission: 07/17/17The patient is a 62 y.o. female who presents with incisional pain, redness and wound drainage.She underwent an exploratory laparotomy and resection of small bowel on July 09. She hadfluid overload post operatively. She was found to have an elevated WBC count and CT scandemonstrated a superficial wound infection and cellulitis and a small amount of free air -likely residual from surgery?The wound was opened in 2 placed, drained and packed with iodoform gauze.Past Medical HistoryPast Medical History (Chronic Problems):Chronic ProblemsHTN (hypertension) (Chronic)HLD (hyperlipidemia) (Chronic)Tobacco use (Chronic)Allergic rhinitis (Chronic)Chronic back pain (Chronic)AllergiesPenicill ins Allergy (Verified 07/17/17 12:26)AnaphylaxisHome Medications:Ambulatory OrdersMedication Instructions RecordedSurgical History: - - Lumbar back surgery x 2 (L3-S1 hardware), Complete Hysterectomy, T+A.exploratory laparotomy with small bowel resectionPsychiatric History: No pertinent psych hxGYN History: No pertinent VINE PRUNER historySmoking Status: Current some day smoker- *Family History MaternalHistory Items: - - Denies any marked maternal or paternal family history including DM, HD. PaternalHistory Items: - - Denies any marked maternal or paternal family history including DM, HD.Review of SystemsConstitutional: Reports: Chills. Denies: Fever, Weight ChangeHEENT: Denies: Head Aches, Sinus Congestion, Sinus DrainageCardiovascular: Denies: Chest Pain, PalpitationsRespiratory: Denies: Cough, Shortness of breath at rest, Sputum productionGastrointestinal : Reports: Abdominal Pain. Denies: Nausea, VomitingGenitourinary: Denies: DysuriaMusculoskeletal: Denies: Joint Pain, Joint TendernessSkin: Denies: Rash, WoundsNeurological: Denies: Numbness, Tingling, Focal weaknessPsychiatric: Denies: Anxiety, Depression, Homicidal Ideations, Suicidal IdeationsHematologic/ Lymphatic: Denies: Easy Bruising, Easy BleedingVTE Information - Inpt OnlyVTE Present on Admission: NoVTE Mechan Device Prophylaxis: SCD'sVTE Pharm Prophylaxis ordered?: NoPatient Problems:Active and Suspected ProblemsSBO (small bowel obstruction) (Acute)Wound infection after surgery (Acute)- Physical ExamGeneral: Alert, Oriented x3, CooperativeLungs: Clear to auscultation, Normal air movementCardiovascular: Regular rate, No murmursAbdomen: Bowel Sounds Present, Soft, - - erythema and swelling at the umbilicus and along themidline incision. [place] were removed above and below the incision with drainage of someprurlent/serous fluid.Vital SignsTemp Pulse Resp BP Pulse Ox98 F 75 16 128/73 H 12:23 07/17/17 16:06 07/17/17 16:06 07/17/17 16:06 07/17/17 16:06Oxygen Delivery Method Room AirWeight: 84.1 kgBody Mass Index (BMI) 29.9Laboratory Tests Past 24 HrsWBC 14.6 HRBC 3.08 LHgb 10.0 LHct 31.1 LMCV 101.0 HMCH 32.5 HMCHC 32.2RDW 12.4Assessment/PlanActive and Suspected ProblemsSBO (small bowel obstruction) (Acute)Wound infection after surgery (Acute)post operative wound infection.Patient was given clindamycin for a penicillin allergy. will continue IV Clindamycin. changedressing in morning. recheck WBC and BMP. will continue lasix. tolerating diet - willcontinue.07/17/17 1622 Date Mendoza Kline MDCosigner Signature: Date (if applicable)CC: Cee Christianson MD; Mendoza Kline MD Signed [facility] Basic Metabolic Profile (BMP )on 07-15-2017 BUN (urea nitrogen) 11.9 RATIO Normal 10-20 [facility] Comment on above: Performed By: #### L 500.2500 ####[facility] [address] [place], [address] Calcium 8.1 mg/dL Low 8.5-10.1 [facility] Comment on above: Performed By: #### L 500.2500 ####[facility] [address] [place], [address] Chloride 102 mmol/L Normal 98-107 [facility] Comment on above: Performed By: #### L 500.2500 ####[facility] [address] [place], [address] CO2 25.0 mmol/L Normal 21.0-32.0 [facility] Comment on above: Performed By: #### L 500.2500 ####[facility] [address] [place], [address] Creatinine 0.34 mg/dL Low 0.55-1.02 [facility] Comment on above: Result Comment: The validity of the calculated GFR AND GFRAA in patients over70 years has not been determined. Clinical correlation isessential. Performed By: #### L 500.2500 ####[facility] [address] [place], [address] eGFR (non-black) 210 mL/min/{1.73_m2} Normal >60 [facility] Comment on above: Result Comment: Non- GFR Calc Performed By: #### L 500.2500 ####[facility] [address] [place], [address] eGFR (non-black) 254 mL/min/{1.73_m2} Normal >60 [facility] Comment on above: Result Comment: Afri can English GFR Calc Performed By: #### L 500.2500 ####[facility] [address] [place], [address] Estimated CRCL 158.55 ml/min Normal [facility] Comment on above: Performed By: #### L 500.2500 ####[facility] [address] [place], [address] GAP 10 Normal 5-15 [facility] Comment on above: Performed By: #### L 500.2500 ####[facility] [address] [place], [address] Glucose mass conc 77 mg/dL Normal 70-110 [facility] Comment on above: Performed By: #### L 500.2500 ####[facility] [address] [place], [address] Potassium molar conc 4.3 mmol/L Normal 3.5-5.1 [facility] Comment on above: Result Comment: Mode rate Hemolysis, Result may be falsely increased. Performed By: #### L 500.2500 ####[facility] [address] [place], [address] Sodium 137 mmol/L Normal 136-145 [facility] Comment on above: Performed By: #### L 500.2500 ####[facility] [address] [place], [address] Urea nitrogen 4 mg/dL Low 7-18 [facility] Comment on above: Performed By: #### L 500.2500 ####[facility] [address] [place], [address] Discharge Instructionon 06-18 Discharge Instruction [facility] [address] [place], [place] [address]Ftarcmngy Outxwavjcha34/30/17 1617#: [id number] Acct: [id number]: SUSAN CALDERON Rep #: [id number]: 1955 62 From: Stefano Garcia MDPCP: Cee Christianson MD Status: DEP ERED Disposition- Plan for ED Patient:Disposition: Home or Assisted LivingChief Complaint: EdemaInstructions: ED Leg Swelling BilateralPrescriptions:Fur osemide [Lasix] 20 mg PO DAILY #5 tabletReferrals:Edu Christianson MD [Primary Care Provider] - As NeededSusan June MD [STAFF PHYSICIAN] - As soon as possibleAdditional Instructions:Lasix 20 mg a day for the next 5 days. Should decrease your lower extremity swelling.If not getting better need follow-up for further evaluation.What to do if you have ProblemsFor any increased pain, shortness of breath, bleeding, nausea or vomiting, chest pain, or anyunexpected problems, contact your Primary Care Provider. Call [facility] ([phone])or report to the closest Emergency Room.Call 911 if necessary.07/15/17 1648 Date [facility]ano Garcia [facility] Signature (If Indicated): Date CC: Cee Christianson MD [facility] Emergency Department Summary on 07-15-2017 Emergency Department Summary [facility] [address] [place] [address]Jttbrzkah Department Jhsbepl62/30/17 1613MR#: [id number] Acct: [id number]: SUSAN CALDERON Rep #: [id number]: 1955 62 From: Stefano Garcia MDPCP: Cee Christianson MD Status: DEP ER- ER Visit SummaryDate of Service: 07/15/17Chief Complaint: Lower leg swellingHistory of Present Illness: The patient is a 62 F [facility] with a partial small bowel resection done by Dr. Susan June.Patient was discharged and had bilateral leg swelling and came in the emergency departmenttoday to have this evaluated. She denies any pain. She denies any chest pain or shortness ofbreath. She denies any hemoptysis. No history of DVT or PE. No history of congestive heartfailure. No history of renal failure. Patient states that she is urinating normally andmoving her bowels.Physical Examination: Well-appearing female. Vital signs are stable afebrile. Pulse ox 97%room air no signs of hypoxia. HEENT exam unremarkable. Neck nontender no JVD. Lungs clear toauscultation bilaterally. Heart regular rhythm no murmur. Abdomen soft and nontender. Normalbowel sounds no peritoneal signs. Very well-healing midline incision is dry and clean withstaples in place. Extremities moves all 41+ pitting edema both lower extremities equal andsymmetrical. Calves nontender. Not weeping. Neurologic exam normal. Back exam unremarkable.Test Results: BMP normal. Her creatinine is 0.3.Emergency Department Course and Treatment: I suspect the patient's bilateral lower extremityswelling is just from IV fluids and being hospitalized. She says gets better when she elevatesher legs. I do not think this is DVTs bilaterally.Treatment Plan: Discharged to home on Lasix 20 mg a day for 5 days. He needs a follow-up withDr. Susan baumann to ensure this is improving. Her primary care physician Dr. Christianson.Disposition: DischargeImpression: Acute bilateral lower extremity edema secondary to fluid retentionStatus post small bowel obstruction or partial small bowel resectionThis note was generated with [employer] dictation software. It may contain incorrect words,spelling, and punctuation that were not noted in review of the chart prior to signingED Disposition- Plan for ED Patient:Chief Complaint: EdemaReferrals:Amanda Christianson MD [Primary Care Provider] -What to do if you have ProblemsFor any increased pain, shortness of breath, bleeding, nausea or vomiting, chest pain, or anyunexpected problems, contact your Primary Care Provider. Call [facility] ([phone])or report to the closest Emergency Room.Call 911 if necessary.07/15/17 1648 Date Stefano Garcia [facility] Signature (If Indicated): Date CC: Cee Christianson MD Normal [facility] Discharge Instructionon 06-17 Discharge Instruction [facility] [address] [place] [address]Wxvprlediwoc for Home/Discharge Kcpnfeksxtnq38/29/17 1139MR#: [id number] Acct: [id number]: SUSAN CALDERON Rep #: [id number]: 1955 62 From: Mayra Lloyd MDPCP: Cee Christianson MD Status: ADM IN- Discharge DiagnosesCurrent Active Problems:Current Active and Chronic ProblemsAllergic rhinitis (Chronic)Chronic back pain (Chronic)HLD (hyperlipidemia) (Chronic)HTN (hypertension) (Chronic)Tobacco use (Chronic)Reason(s) for Visit for Discharge Instructions: abdominal painYou will use the following diet at home:: CardiacYour food should be the consistency of: RegularYour liquids should be the consistency of: Regular/ThinDischarge Activity: Return to Normal ActivityWeight Bearing Status: Weight bearing as toleratedCall your doctor if your incision/area has: Continuous Slow Oozing, Sudden Increased Bleeding,Increased Pain/ Swelling, Increased Redness, Foul Smelling Discharge, Swelling at the incisionsiteCall your doctor if you observe: Fever of 101 or Higher, Inability to have a bowel movementAllergies/Adverse Reactions:AllergiesPenicil melania Allergy (Verified 07/08/17 01:06)AnaphylaxisMedicatio ns to take at DischargeAtenolol [Tenormin (beta Theodora)] 25 mg PO DAILY 07/07/17Lisinopril [Zestril] 20 mg PO DAILY 07/07/17Montelukast [Singulair] 10 mg PO DAILY 07/07/17Oxycodone [Oxyir] 5 mg PO Q6H PRN PRN #30 tablet 07/14/17The following prescriptions were given:Oxycodone [Oxyir] 5 mg PO Q6H PRN PRN #30 tabletPRN Reason: Mod-Severe Pain (-05/25)Primary Care Physician:Cee Christianson MD [Primary Care Provider] -Please follow up with your Primary Care Physician in: within 1-2 weeksPlease Follow Up With: Susan June MDWhen: as scheduledProposed Discharge Date: 07/14/1711/29/17 1331 Date Mayra Lloyd MDCC: Susan June MD; Cee Christianson MD [facility] Discharge Summaryon 07-14-20 17 Discharge Summary [facility] [address] [place], [place] [address]Etfjazqrp Rydbkuw53/29/17 1331MR#: [id number] Acct: [id number]: SUSAN CALDERON Rep #: [id number]: 1955 62 From: Mayra Lloyd MDPCP: Cee Christianson MD Status: DIS IN YLocation: MS2 [id number] Date and DiagnosisDate of Admission: 07/07/17Date of Discharge: 07/14/17- Primary Discharge DiagnosisSmall bowel obstruction- Secondary Discharge DiagnosisChronic ProblemsAllergic rhinitis (Chronic)Chronic back pain (Chronic)HLD (hyperlipidemia) (Chronic)HTN (hypertension) (Chronic)Tobacco use (Chronic)Hospital Course and TreatmentImaging Results:Clinical Impression(s) from Imaging StudiesAbdomen/Pelvis CT 07/07/17 16:19IMPRESSION:There is an elongated tubular structure in the right pelvis which can beseen with a hydrosalpinx. Differentiation from bowel is difficult withoutintravenous or oral contrast. Options for follow-up include a CT withintravenous and oral contrast or a pelvic ultrasound.There is minimal ascites in the pelvis.There is mild diverticulosis of the colon.Electronically Signed:Deanna Beltran MD at 17:33 ESTTel Direct: [phone], Service support , Huldwde/Pelvis CT 07/07/17 18:52IMPRESSION:The fluid-filled tubular structures in the pelvis are now seen to representsmall bowel loops which are dilated with surrounding inflammation. Thiscan be seen with an obstruction such as from adhesions. A focal enteritismay be present, either infectious or inflammatory.There is no bowel obstruction.There is minimal ascites in the pelvis and around the spleen. There is nofree air.Electronically Signed:Deanna Beltran MD at 22:30 ESTTel Direct: [phone], Service support , OPZ X-Ray 07/07/17 22:58IMPRESSION:The tip of the nasogastric tube is in the expected location of the body ofthe stomach.Electronically Signed:Deanna Beltran MD at 23:55 ESTTel Direct: [phone], Service support , HEC X-Ray 07/08/17 05:55IMPRESSION:Unremarkab le abdominal bowel gas pattern.Electronically Signed:Andrei Prather DO at 9:51 ESTTel , Service support , Donpy Abdomen Series 07/09/17 07:27IMPRESSION:Enteric tube is visualized with the tip in the distal portion of thestomach.Gas pattern is unremarkable.Mild increased markings at the lung bases suggestive of mild basilaratelectasis.Electro nically Signed:Mikal Brambila MD at 9:43 ESTTel [phone], Service support , Niawkph X-Ray 07/09/17 14:00IMPRESSION:Mildly dilated small bowel loops in the upper abdomen with air-fluidlevels. This has worsened since prior study.Electronically Signed:Mikal Brambila MD at 15:36 ESTTel [phone], Service support , Rggncos, Dr. JuneOperations: - - Exploratory laparotomy, adhesiolysis, small bowel resectionProcedures: NoneSummary of Care Provided:62-year-old lady admitted with abdominal pain associated with nausea and vomiting. CT of theabdomen obtained in the ED demonstrated small bowel loops dilatation consistent with smallbowel obstruction. Patient underwent diagnostic laparoscopy, converted to open exploratorylaparotomy, lysis of adhesions, small bowel resection on 07/09/[address] Susan June1. Small bowel obstruction, status post exploratory laparotomy, lysis of adhesions, smallbowel resection, improving, was managed on diet advancement, tolerated it, discharged tofollow-up with Dr. June in the outpatient2. Hypertension, controlled, on home blood pressure medication3. Acute postop delirium secondary to anesthesia, resolved4. Allergic rhinitis5. GERD6. Tobacco dependence counseled on cessation, offered nicotine patch for tobacco cravings7. Hyponatremia; hypovolemic hyponatremia resolved with IV rehydration8. DyslipidemiaDischarge Diet: No Restrictions, Light diet - advance as toleratedDischarge Activity: Return to Normal ActivityWeight Bearing Status: Weight bearing as toleratedCall your doctor if your incision/area has: Continuous Slow Oozing, Sudden Increased Bleeding,Increased Pain/ Swelling, Increased Redness, Foul Smelling Discharge, Swelling at the incisionsiteCall your doctor if you observe: Fever of 101 or Higher, Inability to have a bowel movementHome Medications:Medications to take at DischargeAtenolol [Tenormin (beta Theodora)] 25 mg PO DAILY 07/07/17Lisinopril [Zestril] 20 mg PO DAILY 07/07/17Montelukast [Singulair] 10 mg PO DAILY 07/07/17Oxycodone [Oxyir] 5 mg PO Q6H PRN PRN #30 tablet 07/14/17Following Prescrptions Were Given to Patient:Oxycodone [Oxyir] 5 mg PO Q6H PRN PRN #30 tabletPRN Reason: Mod-Severe Pain (-05/25)Primary Care Physician:Cee Christianson MD [Primary Care Provider] -Please follow up with your Primary Care Physician in: within 1-2 weeksPlease Follow Up With: Susan June MDWhen: as scheduledDisposition: HomeMinutes spent on discharge:: 25Patient Condition:: StableMeaningful Use InfoMeaningful Use Diagnoses (Choose all that apply): None lppiaudhae26/29/17 1804 Date Ama Paintsil MDCosigner Signature (if applicable): Date CC: Mayra Lloyd MD; Cee Christianson MD Signed Normal [facility] Basic Metabolic Profile (BMP )on 07-12-2017 BUN (urea nitrogen) 34.5 RATIO High 10-20 [facility] Comment on above: Performed By: #### L 500.2500 ####[facility] [address] [place], [address] Calcium 7.6 mg/dL Low 8.5-10.1 [facility] Comment on above: Performed By: #### L 500.2500 ####[facility] [address] [place], [address] Chloride 114 mmol/L High 98-107 [facility] Comment on above: Performed By: #### L 500.2500 ####[facility] [address] [place], [address] CO2 21.0 mmol/L Normal 21.0-32.0 [facility] Comment on above: Performed By: #### L 500.2500 ####[facility] [address] [place], [address] Creatinine 0.26 mg/dL Low 0.55-1.02 [facility] Comment on above: Result Comment: The validity of the calculated GFR AND GFRAA in patients over70 years has not been determined. Clinical correlation isessential. Performed By: #### L 500.2500 ####[facility] [address] [place], [address] eGFR (non-black) 280 mL/min/{1.73_m2} Normal >60 [facility] Comment on above: Result Comment: Non- GFR Calc Performed By: #### L 500.2500 ####[facility] [address] [place], [address] eGFR (non-black) 339 mL/min/{1.73_m2} Normal >60 [facility] Comment on above: Result Comment: Afri can English GFR Calc Performed By: #### L 500.2500 ####[facility] [address] [place], [address] Estimated CRCL 207.33 ml/min Normal [facility] Comment on above: Performed By: #### L 500.2500 ####[facility] [address] [place], [address] GAP 9 Normal 5-15 [facility] Comment on above: Performed By: #### L 500.2500 ####[facility] [address] [place], [address] Glucose mass conc 82 mg/dL Normal 70-110 [facility] Comment on above: Performed By: #### L 500.2500 ####[facility] [address] [place], [address] Potassium molar conc 3.5 mmol/L Normal 3.5-5.1 [facility] Comment on above: Performed By: #### L 500.2500 ####[facility] [address] [place], [address] Sodium 144 mmol/L Normal 136-145 [facility] Comment on above: Performed By: #### L 500.2500 ####[facility] [address] [place], [address] Urea nitrogen 9 mg/dL Normal 7-18 [facility] Comment on above: Performed By: #### L 500.2500 ####[facility] [address] [place], [address] CBC-Complete Blood Cnt No Di ffon 07-12-2017 Erythrocyte distribution width Auto Ratio (RBC) 12.3 % Normal 11.6-14.6 [facility] Comment on above: Performed By: #### L 500.2500 ####[facility] [address] [place], [address] Erythrocytes (RBC) 2.74 M/mm3 Low 4.2-5.4 [facility] Comment on above: Performed By: #### L 500.2500 ####[facility] [address] [place], [address] Hematocrit (HCT) 28.1 % Low 37-47 [facility] Comment on above: Performed By: #### L 500.2500 ####[facility] [address] [place], [address] Hemoglobin mass conc (Bld) 9.0 g/dL Low 12.0-15.0 [facility] Comment on above: Performed By: #### L 500.2500 ####[facility] [address] [place], [address] MCH 32.8 pg High 27.0-32.0 [facility] Comment on above: Performed By: #### L 500.2500 ####[facility] [address] [place], [address] MCHC mass conc (RBC) 32.0 g/gl Normal 32-36 [facility] Comment on above: Performed By: #### L 500.2500 ####[facility] [address] [place], [address] MCV 102.6 fL High 81-99 [facility] Comment on above: Performed By: #### L 500.2500 ####[facility] [address] [place], [address] Platelet mean volume (PMV) 9.0 fL Normal 6.2-12.0 [facility] Comment on above: Performed By: #### L 500.2500 ####[facility] [address] [place], [address] Platelets 292 10*3/uL Normal 150-450 [facility] Comment on above: Performed By: #### L 500.2500 ####[facility] [address] [place], [address] RDW SD 46.4 fl High 35.1-43.9 [facility] Comment on above: Performed By: #### L 500.2500 ####[facility] [address] [place], [address] WBC (Leukocytes) 10.3 10*3/uL Normal 4.4-11.0 [facility] Comment on above: Performed By: #### L 500.2500 ####[facility] [address] [place], [address] Magnesiumon 07-12-2017 Magnesium 2.0 mg/dL Normal 1.8-2.4 [facility] Comment on above: Performed By: #### L 500.2500 ####[facility] [address] [place], [address] Basic Metabolic Profile (BMP )on 07-11-2017 BUN (urea nitrogen) 23.7 RATIO High 10-20 [facility] Comment on above: Performed By: #### L 500.2500 ####[facility] [address] [place], [address] Calcium 7.6 mg/dL Low 8.5-10.1 [facility] Comment on above: Performed By: #### L 500.2500 ####[facility] [address] [place], [address] Chloride 110 mmol/L High 98-107 [facility] Comment on above: Performed By: #### L 500.2500 ####[facility] [address] [place], [address] CO2 20.0 mmol/L Low 21.0-32.0 [facility] Comment on above: Performed By: #### L 500.2500 ####[facility] [address] [place], [address] Creatinine 0.38 mg/dL Low 0.55-1.02 [facility] Comment on above: Result Comment: The validity of the calculated GFR AND GFRAA in patients over70 years has not been determined. Clinical correlation isessential. Performed By: #### L 500.2500 ####[facility] [address] [place], [address] eGFR (non-black) 221 mL/min/{1.73_m2} Normal >60 [facility] Comment on above: Result Comment: Afri can English GFR Calc Performed By: #### L 500.2500 ####[facility] [address] [place], [address] eGFR (non-black) 182 mL/min/{1.73_m2} Normal >60 [facility] Comment on above: Result Comment: Non- GFR Calc Performed By: #### L 500.2500 ####[facility] [address] [place], [address] Estimated CRCL 141.86 ml/min Normal [facility] Comment on above: Performed By: #### L 500.2500 ####[facility] [address] [place], [address] GAP 11 Normal 5-15 [facility] Comment on above: Performed By: #### L 500.2500 ####[facility] [address] [place], [address] Glucose mass conc 115 mg/dL High 70-110 [facility] Comment on above: Result Comment: Fast ing Glucose result from 110 to <126 mg/dLsuggests IMPAIRED HOMEOSTASIS per A.D.A. criteria. Performed By: #### L 500.2500 ####[facility] [address] [place], [address] Potassium molar conc 3.8 mmol/L Normal 3.5-5.1 [facility] Comment on above: Performed By: #### L 500.2500 ####[facility] [address] [place], [address] Sodium 141 mmol/L Normal 136-145 [facility] Comment on above: Performed By: #### L 500.2500 ####[facility] [address] [place], [address] Urea nitrogen 9 mg/dL Normal 7-18 [facility] Comment on above: Performed By: #### L 500.2500 ####[facility] [address] [place], [address] Basic Metabolic Profile (BMP )on 07-10-2017 BUN (urea nitrogen) 18.1 RATIO Normal 10-20 [facility] Comment on above: Performed By: #### L 500.2500 ####[facility] [address] [place], [address] Calcium 7.5 mg/dL Low 8.5-10.1 [facility] Comment on above: Performed By: #### L 500.2500 ####[facility] [address] [place], [address] Chloride 107 mmol/L Normal 98-107 [facility] Comment on above: Performed By: #### L 500.2500 ####[facility] [address] [place], [address] CO2 19.0 mmol/L Low 21.0-32.0 [facility] Comment on above: Performed By: #### L 500.2500 ####[facility] [address] [place], [address] Creatinine 0.39 mg/dL Low 0.55-1.02 [facility] Comment on above: Result Comment: The validity of the calculated GFR AND GFRAA in patients over70 years has not been determined. Clinical correlation isessential. Performed By: #### L 500.2500 ####[facility] [address] [place], [address] eGFR (non-black) 215 mL/min/{1.73_m2} Normal >60 [facility] Comment on above: Result Comment: Afri can English GFR Calc Performed By: #### L 500.2500 ####[facility] [address] [place], [address] eGFR (non-black) 178 mL/min/{1.73_m2} Normal >60 [facility] Comment on above: Result Comment: Non- GFR Calc Performed By: #### L 500.2500 ####[facility] [address] [place], [address] Estimated CRCL 138.22 ml/min Normal [facility] Comment on above: Performed By: #### L 500.2500 ####[facility] [address] [place], [address] GAP 11 Normal 5-15 [facility] Comment on above: Performed By: #### L 500.2500 ####[facility] [address] [place], [address] Glucose mass conc 120 mg/dL High 70-110 [facility] Comment on above: Result Comment: Fast ing Glucose result from 110 to <126 mg/dLsuggests IMPAIRED HOMEOSTASIS per A.D.A. criteria. Performed By: #### L 500.2500 ####[facility] [address] [place], [address] Potassium molar conc 3.9 mmol/L Normal 3.5-5.1 [facility] Comment on above: Performed By: #### L 500.2500 ####[facility] [address] [place], [address] Sodium 137 mmol/L Normal 136-145 [facility] Comment on above: Performed By: #### L 500.2500 ####[facility] [address] [place], [address] Urea nitrogen 7 mg/dL Normal 7-18 [facility] Comment on above: Performed By: #### L 500.2500 ####[facility] [address] [place], [address] CBC-Complete Blood Cnt No Di ffon 07-10-2017 Erythrocyte distribution width Auto Ratio (RBC) 12.4 % Normal 11.6-14.6 [facility] Comment on above: Performed By: #### L 500.2500 ####[facility] [address] [place], [address] Erythrocytes (RBC) 3.53 M/mm3 Low 4.2-5.4 [facility] Comment on above: Performed By: #### L 500.2500 ####[facility] [address] [place], [address] Hematocrit (HCT) 36.0 % Low 37-47 [facility] Comment on above: Performed By: #### L 500.2500 ####[facility] [address] [place], [address] Hemoglobin mass conc (Bld) 11.6 g/dL Low 12.0-15.0 [facility] Comment on above: Performed By: #### L 500.2500 ####[facility] [address] [place], [address] MCH 32.9 pg High 27.0-32.0 [facility] Comment on above: Performed By: #### L 500.2500 ####[facility] [address] [place], [address] MCHC mass conc (RBC) 32.2 g/gl Normal 32-36 [facility] Comment on above: Performed By: #### L 500.2500 ####[facility] [address] [place], [address] MCV 102.0 fL High 81-99 [facility] Comment on above: Performed By: #### L 500.2500 ####[facility] [address] [place], [address] Platelet mean volume (PMV) 10.0 fL Normal 6.2-12.0 [facility] Comment on above: Performed By: #### L 500.2500 ####[facility] [address] [place], [address] Platelets 291 10*3/uL Normal 150-450 [facility] Comment on above: Performed By: #### L 500.2500 ####[facility] [address] [place], [address] RDW SD 46.2 fl High 35.1-43.9 [facility] Comment on above: Performed By: #### L 500.2500 ####[facility] [address] [place], [address] WBC (Leukocytes) 12.6 10*3/uL High 4.4-11.0 [facility] Comment on above: Performed By: #### L 500.2500 ####[facility] [address] [place], [address] Abd Inc Decub and/or Erecton 07-09-2017 Abd Inc Decub and/or Erect [facility] [id number] [place] [address]Mp[employer] Decub and/or ErectMR#: [id number] Acct: [id number]: SUSAN CALDERON Rep #: [id number]: 1955 F 62 From: Mikal Brambila MDPCP: Cee Christianson MD Status: ADM INStudy: Abd Inc Decub and/or Erect Date of Exam: 07/09/17Exam# [id number] Ordering Dr: Susan June MDSTUDY: X-RAY - ABDOMEN/PELVISREASON FOR EXAM: Female, 62 years old. History of small bowelobstruction.TECHNIQUE : AP supine and upright views of the abdomen and pelvis.COMPARISON: Comparison is made with prior study dated July 09, 2017earlier in the day. FINDINGS:Mild increased markings at the lung bases suggestive of bibasilaratelectasis.Mildl y dilated small bowel loops with air-fluid levels suggestive of aearly or partial small bowel obstruction. Small amount of oral contrast isseen in the left hemicolon. There is no demonstrated free abdominal air.The visualized liver, spleen and kidneys are grossly normal in size andmorphology.Normal soft tissue structures. There are diffuse degenerative changes ofthe visualized lumbar spine. Prior laminectomy and fusion in the lowerlumbar spine. ORDER #: [id number] RAD/Abd Inc Decub and/or ErectIMPRESSION:Mildly dilated small bowel loops in the upper abdomen with air-fluidlevels. This has worsened since prior study.Electronically Signed:Mikal Brambila MD at 15:36 ESTTel [phone], Service support , ZS: Susan June MD; Cee Christianson MD Online Marketing Director:Signed Normal [facility] Acute Abd Inc Chest (Portabl e)on 07-09-2017 Acute Abd Inc Chest (Portable) [facility] [id number] [place] [address]Obpxk Abd Inc Chest (Portable)MR#: [id number] Acct: [id number]: SUSAN CALDERON Rep #: [id number]: 1955 F 62 From: Mikal Brambila MDPCP: Cee Christianson MD Status: ADM INStudy: Acute Abd Inc Chest (Portable) Date of Exam: 07/09/17Exam# [id number] Ordering Dr: Maycol Tubbs MDSTUDY: X-RAY - ABDOMEN/PELVISREASON FOR EXAM: Female, 62 years old. Possible small bowel obstruction.TECHNIQUE: AP supine and upright views of the abdomen and pelvis.COMPARISON: Comparison is made with prior study dated July 08, 2017. FINDINGS:Mil d increased markings at the lung bases suggestive of a linearatelectasis.A nasogastric tube is seen with the tip in the distal body of the stomach.There is an unremarkable bowel gas pattern. There is no demonstrated freeabdominal air.The visualized liver, spleen and kidneys are grossly normal in size andmorphology.Normal soft tissue structures. Prior laminectomy and fusion in the lowerlumbar spine. Multilevel disc space narrowing and spondylosis. ORDER #: [id number] RAD/Acute Abd Inc Chest (Portable)IMPRESSION:Enter ic tube is visualized with the tip in the distal portion of thestomach.Gas pattern is unremarkable.Mild increased markings at the lung bases suggestive of mild basilaratelectasis.Electro nically Signed:Mikal Brambila MD at 9:43 ESTTel [phone], Service support , UD: Maycol Tubbs MD; Cee Christianson MD Online Marketing Director:Signed Normal [facility] Basic Metabolic Profile (BMP )on 07-09-2017 BUN (urea nitrogen) 9.9 RATIO Low 10-20 [facility] Comment on above: Performed By: #### L 100.0100 ####[facility] [address] [place], [address] Calcium 8.1 mg/dL Low 8.5-10.1 [facility] Comment on above: Performed By: #### L 100.0100 ####[facility] [address] [place], [address] Chloride 100 mmol/L Normal 98-107 [facility] Comment on above: Performed By: #### L 100.0100 ####[facility] [address] [place], [address] CO2 24.0 mmol/L Normal 21.0-32.0 [facility] Comment on above: Performed By: #### L 100.0100 ####[facility] [address] [place], [address] Creatinine 0.40 mg/dL Low 0.55-1.02 [facility] Comment on above: Result Comment: The validity of the calculated GFR AND GFRAA in patients over70 years has not been determined. Clinical correlation isessential. Performed By: #### L 100.0100 ####[facility] [address] [place], [address] eGFR (non-black) 206 mL/min/{1.73_m2} Normal >60 [facility] Comment on above: Result Comment: Afri can English GFR Calc Performed By: #### L 100.0100 ####[facility] [address] [place], [address] eGFR (non-black) 170 mL/min/{1.73_m2} Normal >60 [facility] Comment on above: Result Comment: Non- GFR Calc Performed By: #### L 100.0100 ####[facility] [address] [place], [address] Estimated CRCL 134.76 ml/min Normal [facility] Comment on above: Performed By: #### L 100.0100 ####[facility] [address] [place], [address] GAP 8 Normal 5-15 [facility] Comment on above: Performed By: #### L 100.0100 ####[facility] [address] [place], [address] Glucose mass conc 107 mg/dL Normal 70-110 [facility] Comment on above: Performed By: #### L 100.0100 ####[facility] [address] [place], [address] Potassium molar conc 4.1 mmol/L Normal 3.5-5.1 [facility] Comment on above: Performed By: #### L 100.0100 ####[facility] [address] [place], [address] Sodium 132 mmol/L Low 136-145 [facility] Comment on above: Performed By: #### L 100.0100 ####[facility] [address] [place], [address] Urea nitrogen 4 mg/dL Low 7-18 [facility] Comment on above: Performed By: #### L 100.0100 ####[facility] [address] [place], [address] CBC-Complete Blood Cnt No Di ffon 07-09-2017 Erythrocyte distribution width Auto Ratio (RBC) 12.1 % Normal 11.6-14.6 [facility] Comment on above: Performed By: #### L 100.0100 ####[facility] [address] [place], [address] Erythrocytes (RBC) 3.62 M/mm3 Low 4.2-5.4 [facility] Comment on above: Performed By: #### L 100.0100 ####[facility] [address] [place], [address] Hematocrit (HCT) 36.6 % Low 37-47 [facility] Comment on above: Performed By: #### L 100.0100 ####[facility] [address] [place], [address] Hemoglobin mass conc (Bld) 12.0 g/dL Normal 12.0-15.0 [facility] Comment on above: Performed By: #### L 100.0100 ####[facility] [address] [place], [address] MCH 33.1 pg High 27.0-32.0 [facility] Comment on above: Performed By: #### L 100.0100 ####[facility] [address] [place], [address] MCHC mass conc (RBC) 32.8 g/gl Normal 32-36 [facility] Comment on above: Performed By: #### L 100.0100 ####[facility] [address] [place], [address] MCV 101.1 fL High 81-99 [facility] Comment on above: Performed By: #### L 100.0100 ####[facility] [address] [place], [address] Platelet mean volume (PMV) 9.6 fL Normal 6.2-12.0 [facility] Comment on above: Performed By: #### L 100.0100 ####[facility] [address] [place], [address] Platelets 265 10*3/uL Normal 150-450 [facility] Comment on above: Performed By: #### L 100.0100 ####[facility] [address] [place], [address] RDW SD 44.9 fl High 35.1-43.9 [facility] Comment on above: Performed By: #### L 100.0100 ####[facility] [address] [place], [address] WBC (Leukocytes) 16.0 10*3/uL High 4.4-11.0 [facility] Comment on above: Performed By: #### L 100.0100 ####[facility] [address] [place], [address] COLON (NO NEOPLASM)on 2016 COLON (NO NEOPLASM) Patient: JUSTICE CALDERON : 1955 (62/F) Acct Num: [id number] Phys: Mayra Lloyd MD Unit Num: [id number] Loc: MS2 [id number] Specimen: [id number] Received: 07/12/17 - 1309 Spec Type: COLON TISSUES TISSUES: COMMENT Larger segment of bowel at terminal ends show serosal, subserosal and underlying muscularis propria with acute inflammation, submucosal congestion, hemorrhage and edema. GROSS DESCRIPTION Received in fixative is one container labeled with the patient's name and designated small bowel section and appendix. The specimen consists of a loop-shaped segment of bowel measuring 27 cm in length and up to 4 cm in diameter. The attached mesentery measures up to 2.5 cm in width. The serosal surface is dusky and congested. Both resection margins are stapled. The lumen is filled with hemorrhagic material. The central portion of the bowel is congested, hemorrhagic and ulcerated. 8 cm away from one resection margin and 7 cm away from the opposite resection margin, the mucosa is edematous. Also received in the container is a wmui-mz-ebuk anastomosis of bowel measuring 4 cm in length. The resection margins are stapled. The mucosa is edematous. No mucosal lesion is identified. The appendix measures 5 cm in length and 0.7 cm in diameter. The attached periappendiceal tissue measures up to 2 cm in width. No lesion is identified. More sections will follow after overnight fixation. / SJ:mitch 07/12/17 The appendix reveals pin point lumen. No lesion is identified. Mucosal is edematous and no lesion is identified in the dwew-mi-zojz anastomosis portion ofthe bowel. The mesenteric section of the mesenteric tissue does not reveal any lesion. Spray Rig Operator sections are submitted in six cassettes as follows: 1 appendix, 2 small bowel with voij-pn-xwtf anastomosis, 3-6 larger segment ofbowel (3 resection margins, 4 ulcerated and hemorrhagic area, central portion, 5 edematous mucosa, terminal portion and 6 mesenteric tissue). / SJ:mitch 07/13/17 TC:5 CPT: 94337, 76333 HEADER OPERATION: Diagnostic laparoscopy converted to open small bowel resection, lysisof adhesions, appendectomy PRE-OP DIAGNOSIS: Small bowel obstruction TISSUE SUBMITTED: Small bowel section and appendix MICROSCOPIC DESCRIPTION Slides are reviewed. MICROSCOPIC DIAGNOSIS Small bowel section and appendix: Larger segment of bowel with extensive ulceration, transmural congestion, hemorrhage, acute inflammation and ischemic changes (central portion), clinically small bowel obstruction. Etkl-mo-hxfa anastomosis segment of bowel with serosal, subserosal and underlying muscularis propria with acute inflammation and edema. Appendix, acute periappendicitis. SJ:mitch 07/14/17 Signed Charlie Bess 07/14/17 Normal [facility] Comment on above: Performed By: #### L 500.2500 ####[facility] [address] [place], [address] Consultationon 07-09-2017 Consultation [facility] [address] [place], [place] [address]Zukzthnvzmly83/23/17 0852MR#: [id number] Acct: [id number]: SUSAN CALDERON Rep #: [id number]: 1955 62 From: Susan June MDPCP: Cee Christianson MD Status: ADM IN YLocation: MS2 [id number] ConsultDate of Consult: 07/08/17- Reason for ConsultChief Complaint:abdominal painHistory of Present Illness:62 y/o WF with intermittant history of constipation, presents with complaint of severe crampyabdominal pain and bad gas pain for the past day.States that she began having difficulty urinating about a week and a half ago and normallytakes cranberry juice for relief.She relates intermittent history of constipation episodes - with which she would not have abowel movement for 5-6 days and this usually occurs about once a month.She also states that she has been trying to lose weight - lost 90#.Also drinks about 6-7 cups of coffee per day.Does not recall when she last passed gas.Thinks she had a bowel movement yesterday - small amount.Denies previous hx of bowel obstruction.CT scan 2mm non obstructing left kidney stone, dilated small bowel, surrounding inflammation inlower abdomen, small amount of ascites, focal enteritis vs SBOPast Medical History:HypertensionDegene rative disk diseaseanxiety/depression disorderPast Surgical History:TonsillectomyBilat eral carpal tunnel surgeryTubes tiedTAH/BSO for fibroid tumorsSpinal fusion L3-S1, debridement of wound infection after this '03Heel spurs surgery - bilateralColonoscopy 2013Medications:lisinopril atenololsingulairAllergies :penicillinsSocial history:TOB use deniesETOH use deniesReview of Systems:General - denies fevers, intentional weight lossCardiovascular denies history of MIPulmonary denies shortness of breath, denies coughing up bloodGastrointestinal as per HPINeurological denies history of CVAGenitourinary occasional difficulty urinating and takes cranberry juice for thisHematological denies history of blood transfusions, denies history of blood clotsSkin denies open non healing woundsMusculoskeletal has back disk disease receives routine injections for this, had been onchronic vicodin 2-3 years ago but self d/c'dEndocrine denies diabetesPsychological has anxiety/depression disorderPhysical examination:Vital signs Temp 98.3F RR 16 HR 61 BP 168/83General WD/WN WF in no apparent distress, alert and orientedHEENT Normocephalic. EOM intact with sclera clear and no icterus noted. Neck is supplewith no jugular venous distention noted. Trachea is midline.Lungs normal breath sounds in all lung hogan. No rales/rhonchi/wheezing noted. Nolabored breathing noted, such as retractions. No cough heard.Heart normal S1 and S2 auscultated. No rubs/clicks/murmurs noted.Abdomen soft and benign but lower abdomen tenderness, but no peritoneal signs, decreasedbowel soundsExtremities no calf tenderness noted. No pitting edema noted.Genitourinary/Rectal hard stools in rectal vault and airSkin normal skin integrity.Neurological non focal.Psychological normal affect, patient is calm and appropriateImpression:karen johns bowel obstructionDiscusison/Plan :I have discussed the above with the patient.She has a long history of constipation. She had a colonoscopy in 2013.She does not recall when she last passed flatus, but she does have air in the rectal vault.Will check KUB, to see if contrast has made it to the colon.Will follow patient with you.I have answered all the patient's questions and she has no further questions..07/09/17 1652 Date Susan June [facility] [place] Signature (if applicable): Date CC: Susan June MD; Cee Christianson MD Signed [facility] Lactic Acidon 07-09-2017 Lactate 0.8 mmol/L Normal 0.4-2.0 [facility] Comment on above: Order Comment: Yes/N o query for Sepsis Lactate Rule Y Performed By: #### L 100.0100 ####[facility] [address], [address] Magnesiumon 07-09-2017 Magnesium 2.0 mg/dL Normal 1.8-2.4 [facility] Comment on above: Performed By: #### L 100.0100 ####[facility] [address] [place], [address] Operative Reporton 7 Operative Report [facility] [address] [place], [place] [address]Jmhcasyut Wnlrnx03/24/17 1844#: [id number] Acct: [id number]: SUSAN CALDERON Rep #: [id number]: 1955 62 From: Ronnie Reaves MDPCP: Cee Christianson MD Status: ADM IN YLocation: MS2 [id number] of OperationDate of Procedure: 07/09/17Pre-Operative Diagnosis: K 50.812 small bowel obstructionPost-Operative Diagnosis: SameSurgery/Procedure Performed:: Assisted with lysis of adhesionsOR Blacksmith Apprentice: NoneOR Blacksmith Apprentice: Ronnie Reaves is the surgeonType of Anesthesia:: GeneralEstimated Blood Loss (mL): 100 ccFluids Replaced: 1 literDescription of Procedure:Dr. Susan Lovelace call me at 6:00 to come in and assist her with an exploratory laparotomysecondary to a small bowel obstruction.I came into the room scrubbed Susan had the Bookwalter retractor in and the pelvis exposed.There was a significant large tight band coming from the vaginal cuff going down into thesacral area. I was able to get my finger around this and she subsequently was able to getright angle retractors around this and tied off the adhesive band and used electrocautery atthe same time. We then delivered the small bowel from the pelvis. The small bowel wassignificantly blackened and did and there was actually a loop of the small bowel that gotcaught in this adhesive band.At this point Susan delineated the small bowel that she was going to resect and said that I wasno longer needed. I subsequently took scrub.- Admit VTE DocumentationVTE Present on Admission: NoVTE Mechan Device Prophylaxis: SCD'sVTE Pharm Prophylaxis ordered?: NoReason prophylaxis not ordered:: Treatment Not Myxptpord79/24/17 1853 Date Ronnie Reaves MDCC: Ronnie Reaves MD; Susan June MD; Cee Christianson MD Signed Normal [facility] Abdomen Single Viewon 2016 Abdomen Single View [facility] [address] [place], [place] [address]Tpbeavl Single ViewMR#: [id number] Acct: [id number]: SUSAN CALDERON Rep #: [id number]: 1955 F 62 From: Andrei Prather DOPCP: Cee Christianson MD Status: ADM INStudy: Abdomen Single View Date of Exam: 07/08/17Exam# [id number] Ordering Dr: Nanci Casillas LSTUDY: X-RAY - ABDOMEN/PELVISREASON FOR EXAM: Female, 62 years old. Small bowel obstructionTECHNIQUE: Two AP supine views of the abdomen and pelvis.COMPARISON: 07/07/2017 FINDING S:Normal visualized lung bases.There is an unremarkable bowel gas pattern. There is no demonstrated freeabdominal air. The enteric tube is seen within the stomach.The visualized liver, spleen and kidneys are grossly normal in size andmorphology.Normal soft tissue structures. Postoperative changes are seen within thelumbar spine. ORDER #: [id number] RAD/Abdomen Single ViewIMPRESSION:Unremarkabl e abdominal bowel gas pattern.Electronically Signed:Andrei Prather, [id number] at 9:51 ESTTel , Service support , SY: Nanci Casillas; Cee Christianson MD Online Marketing Director:Signed Normal [facility] Abdomen Single View (Portabl e)on 07-08-2017 Abdomen Single View (Portable) [facility] [address] [place], [place] [address]Nqzyflp Single View (Portable)MR#: [id number] Acct: [id number]: SUSAN CALDERON Lance Rep #: [id number]: 1955 F 62 From: Deanna Beltran MDPCP: Cee Christianson MD Status: ADM INStudy: Abdomen Single View (Portable) Date of Exam: 07/07/17Exam# [id number] Ordering Dr: Deanna Adhikari MDSTUDY: X-RAY - ABDOMEN/PELVISREASON FOR EXAM: Female, 62 years old. Nasogastric tube placementTECHNIQUE: Single AP view of the abdomen / pelvis.COMPARISON: CT abdomen and pelvis from the same day FINDINGS:Scarlet l visualized lung bases.There is an unremarkable bowel gas pattern. There is no demonstrated freeabdominal air.There is contrast in the collecting systems of both kidneys after therecent CT.Normal soft tissue structures. There are mild degenerative changes in thevisualized spine. There are surgical changes in the lower lumbar spine. ORDER #: [id number] RAD/Abdomen Single View (Portable)IMPRESSION:The tip of the nasogastric tube is in the expected location of the body ofthe stomach.Electronically Signed:Deanna Beltran MD at 23:55 ESTTel Direct: [phone], Service support , QN: Deanna Adhikari MD; Cee Christianson MD Online Marketing Director:Signed Normal [facility] Basic Metabolic Profile (BMP )on 07-08-2017 BUN (urea nitrogen) 12.7 RATIO Normal 10-20 [facility] Comment on above: Performed By: #### L 500.2500 ####[facility] [address] [place], [address] Calcium 7.9 mg/dL Low 8.5-10.1 [facility] Comment on above: Performed By: #### L 500.2500 ####[facility] [address] [place], [address] Chloride 96 mmol/L Low 98-107 [facility] Comment on above: Performed By: #### L 500.2500 ####[facility] [address] [place], [address] CO2 24.0 mmol/L Normal 21.0-32.0 [facility] Comment on above: Performed By: #### L 500.2500 ####[facility] [address] [place], [address] Creatinine 0.40 mg/dL Low 0.55-1.02 [facility] Comment on above: Result Comment: The validity of the calculated GFR AND GFRAA in patients over70 years has not been determined. Clinical correlation isessential. Performed By: #### L 500.2500 ####[facility] [address] [place], [address] eGFR (non-black) 174 mL/min/{1.73_m2} Normal >60 [facility] Comment on above: Result Comment: Non- GFR Calc Performed By: #### L 500.2500 ####[facility] [address] [place], [address] eGFR (non-black) 210 mL/min/{1.73_m2} Normal >60 [facility] Comment on above: Result Comment: Afri can English GFR Calc Performed By: #### L 500.2500 ####[facility] [address] [place], [address] Estimated CRCL 134.76 ml/min Normal [facility] Comment on above: Performed By: #### L 500.2500 ####[facility] [address] [place], [address] GAP 9 Normal 5-15 [facility] Comment on above: Performed By: #### L 500.2500 ####[facility] [address] [place], [address] Glucose mass conc 113 mg/dL High 70-110 [facility] Comment on above: Result Comment: Fast ing Glucose result from 110 to <126 mg/dLsuggests IMPAIRED HOMEOSTASIS per A.D.A. criteria. Performed By: #### L 500.2500 ####[facility] [address] [place], [address] Potassium molar conc 4.0 mmol/L Normal 3.5-5.1 [facility] Comment on above: Performed By: #### L 500.2500 ####[facility] [address] [place], [address] Sodium 129 mmol/L Low 136-145 [facility] Comment on above: Performed By: #### L 500.2500 ####[facility] [address] [place], [address] Urea nitrogen 5 mg/dL Low 7-18 [facility] Comment on above: Performed By: #### L 500.2500 ####[facility] [address] [place], [address] CBC W/Diff, Automatedon - Absolute Neut 9.8 X10 3/uL High 2.0-7.7 [facility] Comment on above: Performed By: #### L 100.0100 ####[facility] [address] [place], [address] Basophils/100 WBC Auto (Bld) 0.1 % Normal 0-1 [facility] Comment on above: Performed By: #### L 100.0100 ####[facility] [address] [place], [address] Eosinophils/100 leukocytes 0.4 % Normal 0-5 [facility] Comment on above: Performed By: #### L 100.0100 ####[facility] [address] [place], [address] Erythrocyte distribution width Auto Ratio (RBC) 11.7 % Normal 11.6-14.6 [facility] Comment on above: Performed By: #### L 100.0100 ####[facility] [address] [place], [address] Erythrocytes (RBC) 3.81 M/mm3 Low 4.2-5.4 [facility] Comment on above: Performed By: #### L 100.0100 ####[facility] [address] [place], [address] Hematocrit (HCT) 37.5 % Normal 37-47 [facility] Comment on above: Performed By: #### L 100.0100 ####[facility] [address] [place], [address] Hemoglobin mass conc (Bld) 12.6 g/dL Normal 12.0-15.0 [facility] Comment on above: Performed By: #### L 100.0100 ####[facility] [address] [place], [address] IM GRAN % 0.100 % Normal 0.0-0.9 [facility] Comment on above: Result Comment: IG% - Immature Granulocytes (promyelocytes, myelocytes andmetamyelocytes) > 1% indicates that a LEFT SHIFT is Present. Performed By: #### L 100.0100 ####[facility] [address] [place], [address] Lymphocytes 1.38 X10 3/ul Normal 0.83-4.51 [facility] Comment on above: Performed By: #### L 100.0100 ####[facility] [address] [place], [address] Lymphocytes/100 leukocytes 11.8 % Low 19-41 [facility] Comment on above: Performed By: #### L 100.0100 ####[facility] [address] [place], [address] MCH 33.1 pg High 27.0-32.0 [facility] Comment on above: Performed By: #### L 100.0100 ####[facility] [address] [place], [address] MCHC mass conc (RBC) 33.6 g/gl Normal 32-36 [facility] Comment on above: Performed By: #### L 100.0100 ####[facility] [address] [place], [address] MCV 98.4 fL Normal 81-99 [facility] Comment on above: Performed By: #### L 100.0100 ####[facility] [address] [place], [address] Monocytes/100 leukocytes 4.2 % Normal 0-10 [facility] Comment on above: Performed By: #### L 100.0100 ####[facility] [address] [place], [address] Neutrophils/100 WBC Auto (Bld) 83.4 % High 47-70 [facility] Comment on above: Performed By: #### L 100.0100 ####[facility] [address] [place], [address] Platelet mean volume (PMV) 9.5 fL Normal 6.2-12.0 [facility] Comment on above: Performed By: #### L 100.0100 ####[facility] [address] [place], [address] Platelets 273 10*3/uL Normal 150-450 [facility] Comment on above: Performed By: #### L 100.0100 ####[facility] [address] [place], [address] RDW SD 42.0 fl Normal 35.1-43.9 [facility] Comment on above: Performed By: #### L 100.0100 ####[facility] [address] [place], [address] WBC (Leukocytes) 11.7 10*3/uL High 4.4-11.0 [facility] Comment on above: Performed By: #### L 100.0100 ####[facility] [address] [place], [address] Emergency Department Summary on 07-08-2017 Emergency Department Summary [facility] [address] [place] [address]Goybomifq Department Ewwuoyw31/22/17 2301MR#: [id number] Acct: [id number]: SUSAN CALDERON Rep #: [id number]: 1955 62 From: De[facility] Adh[facility]ari [facility] Cee Christianson MD Status: ADM IN- ER Visit SummaryDate of Service: 07/07/17Chief Complaint: Abdominal painHistory of Present Illness: The patient is a 62 F who reports difficulty urinating for the pastseveral days. Today she will be been able to get a small trickles of urine out. She deniesany dysuria. Patient states today she developed crampy achy abdominal pain over the midabdomen. She had nausea but no vomiting. She denies fever.Physical Examination: Blood pressures 202/89, temperature 97.8, heart rate 62, respiratory ypvx92Igcs neck examination is unremarkable.Heart is regular rate and rhythm.Lung sounds are clear.Abdomen is soft with mild diffuse tenderness palpation. She is no guarding or rebound. She ishypoactive bowel sounds. I do not palpate a distended bladder.Test Results: Bedside bladder scan reveals 283 cc. Borden catheter is placed. CBC isunremarkable. Chemistry studies are significant for a sodium of 129. I do not have any priorvalues to compare to. Urinalysis shows no sign of infection.Emergency Department Course and Treatment: Patient was treated morphine, Zofran, and IV fluids.On repeat evaluation patient continued to have pain. CT flank was obtained and read as anelongated, tubular structure in the right pelvis which can be seen with hydrosalpinx.Differential from the bowel is difficult without contrast. I discussed this with the patient.She states she had a total hysterectomy performed here. I reviewed old records and found theoperative note from 2001 which did confirm total hysterectomy with bilateralsalpingo-oophorec [place]. I discussed this with the radiologist. She suggested repeat CT scanwith p.o. and IV contrast and waiting extra time so that the p.o. contrast could reach thedistal small bowel. CT was obtained and 2 hours after drinking contrast, oral contrast is onlyentering the small bowel. The fluid-filled tubular structure in the pelvis is now seen torepresent small bowel loops which are dilated with surrounding inflammation. His could beobstruction from adhesions or focal enteritis. There is no large bowel obstruction.Test results were discussed with Dr. Susan June, on-call for surgery. She asked that NG tubebe placed. We will ask hospitalist for admission.Treatment Plan: []Disposition: AdmitImpression:1. Small bowel obstruction2. Hyponatremia3. Urinary retentionThis note was generated with [employer] dictation software. It may contain incorrect words,spelling, and punctuation that were not noted in review of the chart prior to signingED Disposition- Plan for ED Patient:Chief Complaint: Abd PainReferrals:Chloe Christianson MD [Primary Care Provider] -What to do if you have ProblemsFor any increased pain, shortness of breath, bleeding, nausea or vomiting, chest pain, or anyunexpected problems, contact your Primary Care Provider. Call [facility] ([phone])or report to the closest Emergency Room.Call 911 if necessary.07/07/17 8458 Date Deanna Adhikari [facility] Signature (If Indicated): Date CC: Cee Christianson MD Normal [facility] Hemoglobin A1con 07-08-2017 Hemoglobin A1c/Hemoglobin.total mass fraction (Bld) 4.8 % Normal 4.2-6.3 [facility] Comment on above: Order Comment: ADDED TO BLOOD DRAWN IN ER Performed By: #### L 501.9985 ####[facility] [address] [place], [address] History and Physical Examon 07-08-2017 History and Physical Exam [facility] [id number] [place] [address]Adbvefe and Lnvqahss50/22/17 2311#: [id number] Acct: [id number]: SUSAN CALDERON Rep #: [id number]: 1955 62 From: Nanci MartinezP: Cee Christianson MD Status: ADM IN YLocation: MS2 [id number] List(1) HTN (hypertension)Status: ChronicQualifiers:Hyperten mason type: essential hypertension Qualified Code(s): I10 - Essential (primary)hypertension(2) HLD (hyperlipidemia)Status: ChronicQualifiers:Hyperlip idemia type: unspecified Qualified Code(s): E78.5 - Hyperlipidemia, unspecified(3) Tobacco useStatus: Chronic(4) Allergic rhinitisStatus: ChronicQualifiers:Chronici ty: unspecified Allergic rhinitis trigger: unspecified Allergic rhinitisseasonality: unspecified seasonality Qualified Code(s): J30.9 - Allergic rhinitis,unspecified(5) Chronic back painStatus: ChronicQualifiers:Back pain location: back pain in unspecified location Back pain laterality: unspecifiedQualified Code(s): M54.9 - Dorsalgia, unspecified; G89.29 - Other chronic pain; G89.29 - Otherchronic painHistory of Present IllnessDate of Admission: 07/07/17Chief Complaint: Abdominal pain.The patient is a 62 y/o F w/ PMHx: HTN, HLD, GERD, Chronic Back Pain, Allergic Rhinitis,Tobacco use who presents to [facility] ED on 07/07/17 w/ history of mild difficulty urinating withno dysuria but decreased UOP 1 week prior w/ decreased oral intake and onset over the qlyp05-13 hours generalized abdominal discomfort w/ nausea with emesis w/ presentation to w/bladder scan w/ concern for retention prompting referral to the ED. In the ED straightcatheterization performed and UA unremarkable but ongoing lower abdominal discomfort noted. Inthe ED additional work-up included T 98.3, HR 70, BP 191/92, RR 20, 97% on RA, CBC unremarkablewithout WBC elevation or shift, BMP w/ Na 129, Chl 94, glucose 117, UA unremarkable. InitiallyCT Flank obtained given concern for possible nephrolithiasis, however, CT with noted elongatedtubular structure in the right pelvis with difficult assessment with differentiation includinghydrosalpinx but difficult differentiation without IV or oral contrast thus follow-up scan withoral contrast requested especially given patient status post hysterectomy, complete. CTabdomen and pelvis in the emergency room with contrast obtained and noted to have fluid-filledtubular structures in the pelvis representing small bowel loops dilated with surroundinginflammation consistent with small bowel obstruction possibly secondary to adhesions or focalenteritis. In the ED following the most recent CT w/ concern for SBO, NGT placed, Dr. Juneconsulted per ED.Past Medical HistoryPast Medical History (Chronic Problems):Chronic ProblemsAllergic rhinitis (Chronic)Chronic back pain (Chronic)HLD (hyperlipidemia) (Chronic)HTN (hypertension) (Chronic)Tobacco use (Chronic)AllergiesPenicill ins Allergy (Verified 07/07/17 14:49)AnaphylaxisHome Medications:Ambulatory OrdersMedication Instructions RecordedAtenolol [Tenormin (beta Theodora)] 25 mg PO DAILY 07/07/17Lisinopril [Zestril] 20 mg PO DAILY 07/07/17Montelukast [Singulair] 10 mg PO DAILY 07/07/17Surgical History: - - Lumbar back surgery x 2 (L3-S1 hardware), Complete Hysterectomy, T+A.Psychiatric History: No pertinent psych hxGYN History: No pertinent VINE PRUNER historyLives: Spouse/ Significant OtherSmoking Status: Current every day smoker - 1/2 ppd.Tobacco Use: CigarettesAlcohol: Occasional - Notes 3-4 times per week, 3-4 beers.Drugs: None- *Family History MaternalHistory Items: - - Denies any marked maternal or paternal family history including DM, HD. PaternalHistory Items: - - Denies any marked maternal or paternal family history including DM, HD.Review of SystemsConstitutional: Reports: Malaise, Weakness, Fatigue. Denies: Chills, Fever, Weight ChangeHEENT: Denies: Head Aches, Sinus Congestion, Sinus DrainageCardiovascular: Denies: Chest Pain, PalpitationsRespiratory: Denies: Cough, Shortness of breath at rest, Sputum productionGastrointestinal : Reports: Abdominal Pain, Nausea, VomitingGenitourinary: Reports: Retention. Denies: DysuriaMusculoskeletal: Denies: Joint Pain, Joint TendernessSkin: Denies: Rash, WoundsNeurological: Denies: Numbness, Tingling, Focal weaknessPsychiatric: Denies: Anxiety, Depression, Homicidal Ideations, Suicidal IdeationsHematologic/ Lymphatic: Denies: Easy Bruising, Easy BleedingVTE Information - Inpt OnlyVTE Present on Admission: NoVTE Mechan Device Prophylaxis: SCD'sVTE Pharm Prophylaxis ordered?: YesSubjective:Seated upright in the ED bed, NAD, NGT placed, mildly uncomfortable appearing.Objective:Physic al Examination:General: awake, alert, oriented x 3 and cooperative, seated upright in the ED bed in noapparent distress.Skin: normal color, turgor, no icterus, cyanosis.HEENT: AT/NC, EOMI, PERRLA, dry MM, no carotid bruits or JVD noted.Lungs: CTA bilaterally, moderate effort, moderate decrease BL bases, no rales, ronchi orwheezing.Heart: Regular rate and rhythm; no gallop, rub audible.Abdomen: soft, notes improvement status post NG tube placement with approximate half canisteroutput, no marketed tenderness to palpation following NG tube placement, currentlynondistended, absent bowel sounds, no HSM.Extremities: no cyanosis, clubbing, or edema.Neurological: patient awake, alert, oriented x 3; cognitive function intact; pupils equallyreactive to light and accomodation; cranial nerves II-XII grossly normal, moving all 4extremities, no focal deficits, strength moderately to severely globally decreased secondary toacute presentation.Psychiatric: affect appears normal, no acute evidence of depressive or anxiety feelings.- Physical ExamVital SignsTemp Pulse Resp BP Pulse Ox97.8 F 68 16 174/80 14:47 07/07/17 22:55 07/07/17 22:55 07/07/17 22:55 07/07/17 22:55Oxygen Delivery Method Room AirWeight: 181 lb 7.047 ozBody Mass Index (BMI) 29.2Laboratory Tests Past 24 HrsAssessment/PlanThe patient is a 62 y/o F w/ PMHx: HTN, HLD, GERD, Chronic Back Pain, Allergic Rhinitis,Tobacco use who presents to the [facility] ED on 07/07/17 w/ history of mild difficulty urinating withno dysuria but decreased UOP 1 week prior w/ decreased oral intake and onset over the mxhq73-22 hours generalized abdominal discomfort w/ nausea with emesis w/ presentation to w/bladder scan w/ concern for retention prompting referral to the ED.(1) Abdominal pain, nausea, emesis w/ SBO: In the ED work-up included CT A/P w/ evidence ofpossible small bowel obstruction secondary to adhesions versus enteritis although afebrile andCBC without W BC elevation or shift. Will admit to MS, maintain on IVFs, continue NGT tosuction, strict I AND Os, IV pain/anti-emetics PRN, serial KUB as needed to montior bowel function,Famotidine IV, maintain NPO on bowel rest. General surgery Dr. June consulted with plans a.m.evaluation..(2) Urinary retention: Possibly related to #1, continue to monitor I's and O's, bladder scans,as needed straight catheterization with placement of Borden catheter if appropriate. Urinalysisunremarkable.(3) Hypertension: Holding oral regimen, PRN hydralazine.(4) Hyperlipidemia: On agent, deferred to outpatient.(5) Tobacco Abuse: Encouraged cessation, inpatient consultation per RT, NR if desired.(6) GERD: Famotidine.(7) Allergic rhinitis: Hold Singulair.(8) DVT prophylaxis: SCD, Lovenox.07/08/17 0128 Date Nanci CasillasCosimalina Signature: Date (if applicable)CC: Nanci Casillas; Cee Christianson MD Signed [facility] Abdomen/Pelvis WITH Contrast on 07-07-2017 Abdomen/Pelvis WITH Contrast [facility] [id number] [place] [place], [place] [address]Zjcwnld/Pelvis WITH ContrastMR#: [id number] Acct: [id number]: YOHANACECILIASUSAN A Rep #: [id number]: 1955 F 62 From: Deanna Beltran MDPCP: Myesha RUELAS,Cee Status: REG ERStudy: Abdomen/Pelvis WITH Contrast Date of Exam: 07/07/17Exam# [id number] Ordering Dr: Deanna Adhikari MDSTUDY: CT ABDOMEN AND PELVIS WITH CONTRASTREASON FOR EXAM: Female, 62 years old. Low abdominal pain, abnormalnoncontrast CTRADIATION DOSAGE (If Supplied By Facility): CTDIvol = ( 18.60 ) mGy, DLP =( 1031.04 ) mGycmTECHNIQUE: Transaxial images were obtained from the dome of the diaphragmto the symphysis pubis with oral contrast. 100 ml of Isovue 300 contrastwas administered. Sagittal and coronal images were reconstructed.Individualiz ed dose optimization techniques were used for this CT.COMPARISON: CT abdomen and pelvis without contrast from the same day FINDINGS:There is minimal dependent atelectasis in both lung bases. There is nopleural effusion. The heart is normal in size.There is a 9 mm cyst in the right lobe of the liver. The gallbladder andbiliary system are unremarkable. The spleen is unremarkable. The pancreasis unremarkable. The adrenal glands are unremarkable.The right kidney is unremarkable. There is no dilatation of the collectingsystem in the right kidney. The left kidney is small. A 2 mmnonobstructing stone is again seen in the upper pole of the left kidney.There is no dilatation of the collecting system in the left kidney.There is a small hiatal hernia. All of the oral contrast is still in thestomach. There are dilated loops of small bowel in the pelvis withsurrounding stranding. There is minimal diverticulosis of the colon. Theappendix is visualized and appears normal.There are minimal vascular calcifications. The inferior vena cava isunremarkable. The retroperitoneum is unremarkable. There is minimal fluidaround the spleen.The bladder is decompressed with a Borden catheter present. There isminimal air in the bladder. There is minimal fluid in the pelvis as wellas stranding in the pelvis. There are no abnormal masses in the adnexalregions.The soft tissues of the abdominal wall are unremarkable. There aremoderate degenerative changes in the visualized spine. There are surgicalchanges in the lower lumbar spine. ORDER #: [id number] CT/Abdomen/Pelvis WITH ContrastIMPRESSION:The fluid-filled tubular structures in the pelvis are now seen to representsmall bowel loops which are dilated with surrounding inflammation. Thiscan be seen with an obstruction such as from adhesions. A focal enteritismay be present, either infectious or inflammatory.There is no bowel obstruction.There is minimal ascites in the pelvis and around the spleen. There is nofree air.Electronically Signed:Deanna Beltran MD at 22:30 ESTTel Direct: [phone], Service support , CR: Deanna Adhikari MD; Cee Christianson MD Online Marketing Director:Signed [facility] Abdomen/Pelvis without Conto n 07-07-2017 Abdomen/Pelvis without Cont [facility] [id number] [place] [place], [place] [address]Judaycc/Pelvis without ContMR#: [id number] Acct: [id number]: SUSAN CALDERON Rep #: [id number]: 1955 F 62 From: Deanna Beltran MDPCP: Cee Christianson MD Status: REG ERStudy: Abdomen/Pelvis without Cont Date of Exam: 07/07/17Exam# [id number] Ordering Dr: Deanna Adhikari MDSTUDY: CT ABDOMEN AND PELVIS WITHOUT CONTRASTREASON FOR EXAM: Female, 62 years old. Low abdominal painRADIATION DOSAGE (If Supplied By Facility): CTDIvol = ( 10.48 ) mGy, DLP =( 489.45 ) mGycmTECHNIQUE: Transaxial images were obtained from the dome of the diaphragmto the symphysis pubis without oral contrast, and without intravenouscontrast. Sagittal and coronal images were reconstructed.Individualiz ed dose optimization techniques were used for this CT.COMPARISON: None. FINDINGS:The re is minimal atelectasis in both lung bases. There is no pleuraleffusion. The visualized portions of the heart are within normal limits.There are a few subcentimeter cysts scattered in the liver. Normalgallbladder and extrahepatic biliary system. Normal spleen. Normalpancreas.Normal bilateral adrenal glands.Normal right kidney. The left kidney is small with cortical thinning.There is a 2 mm nonobstructing stone in the upper pole of the left kidney.There is no dilatation of the collecting system in the left kidney.There is a small hiatal hernia. Normal small intestine. There are minimaldiverticula scattered in the colon without adjacent stranding. Theappendix is visualized and appears normal.There are minimal vascular calcifications. Normal inferior vena cava.Normal retroperitoneum.The bladder is decompressed with a Borden catheter present. There ismoderate air in the bladder. The uterus is not visualized and is presumedsurgically absent. There is minimal fluid in the pelvis. There is anelongated tubular structure in the right pelvis which appears separate frombowel.Normal abdominal wall. There are moderate degenerative changes in thevisualized spine. There are surgical changes in the lower lumbar spine.There is minimal retrolisthesis of L3 on L4. ORDER #: [id number] CT/Abdomen/Pelvis without ContIMPRESSION:There is an elongated tubular structure in the right pelvis which can beseen with a hydrosalpinx. Differentiation from bowel is difficult withoutintravenous or oral contrast. Options for follow-up include a CT withintravenous and oral contrast or a pelvic ultrasound.There is minimal ascites in the pelvis.There is mild diverticulosis of the colon.Electronically Signed:Deanna Beltran MD at 17:33 ESTTel Direct: [phone], Service support , BM: Deanna Adhikari MD; Cee Christianson MD Online Marketing Director:Signed Normal [facility] Basic Metabolic Profile (BMP )on 07-07-2017 BUN (urea nitrogen) 18.0 RATIO Normal 10- [facility] Comment on above: Performed By: #### L 500.2500 ####[facility] [address] [place], [address] Calcium 9.0 mg/dL Normal 8.5-10.1 [facility] Comment on above: Performed By: #### L 500.2500 ####[facility] [address] [place], [address] Chloride 94 mmol/L Low 98-107 [facility] Comment on above: Performed By: #### L 500.2500 ####[facility] [address] [place], [address] CO2 22.0 mmol/L Normal 21.0-32.0 [facility] Comment on above: Performed By: #### L 500.2500 ####[facility] [address] [place], [address] Creatinine 0.56 mg/dL Normal 0.55-1.02 [facility] Comment on above: Result Comment: The validity of the calculated GFR AND GFRAA in patients over70 years has not been determined. Clinical correlation isessential. Performed By: #### L 500.2500 ####[facility] [address] [place], [address] eGFR (non-black) 142 mL/min/{1.73_m2} Normal >60 [facility] Comment on above: Result Comment: Afri can English GFR Calc Performed By: #### L 500.2500 ####[facility] [address] [place], [address] eGFR (non-black) 117 mL/min/{1.73_m2} Normal >60 [facility] Comment on above: Result Comment: Non- GFR Calc Performed By: #### L 500.2500 ####[facility] [address] [place], [address] Estimated CRCL 96.26 ml/min Normal [facility] Comment on above: Performed By: #### L 500.2500 ####[facility] [address] [place], [address] GAP 13 Normal 5-15 [facility] Comment on above: Performed By: #### L 500.2500 ####[facility] [address] [place], [address] Glucose mass conc 117 mg/dL High 70-110 [facility] Comment on above: Result Comment: Fast ing Glucose result from 110 to <126 mg/dLsuggests IMPAIRED HOMEOSTASIS per A.D.A. criteria. Performed By: #### L 500.2500 ####[facility] [address] [place], [address] Potassium molar conc 3.6 mmol/L Normal 3.5-5.1 [facility] Comment on above: Performed By: #### L 500.2500 ####[facility] [address] [place], [address] Sodium 129 mmol/L Low 136-145 [facility] Comment on above: Performed By: #### L 500.2500 ####[facility] [address] [place], [address] Urea nitrogen 10 mg/dL Normal 7-18 [facility] Comment on above: Performed By: #### L 500.2500 ####[facility] [address] [place], [address] CBC W/Diff, Automatedon 11-2 -2016 Absolute Neut 6.0 X10 3/uL Normal 2.0-7.7 [facility] Comment on above: Performed By: #### L 100.0100 ####[facility] [address] [place], [address] Basophils/100 WBC Auto (Bld) 0.4 % Normal 0-1 [facility] Comment on above: Performed By: #### L 100.0100 ####[facility] [address] [place], [address] Eosinophils/100 leukocytes 1.4 % Normal 0-5 [facility] Comment on above: Performed By: #### L 100.0100 ####[facility] [address] [place], [address] Erythrocyte distribution width Auto Ratio (RBC) 11.7 % Normal 11.6-14.6 [facility] Comment on above: Performed By: #### L 100.0100 ####[facility] [address] [place], [address] Erythrocytes (RBC) 4.07 M/mm3 Low 4.2-5.4 [facility] Comment on above: Performed By: #### L 100.0100 ####[facility] [address] [place], [address] Hematocrit (HCT) 39.6 % Normal 37-47 [facility] Comment on above: Performed By: #### L 100.0100 ####[facility] [address] [place], [address] Hemoglobin mass conc (Bld) 13.5 g/dL Normal 12.0-15.0 [facility] Comment on above: Performed By: #### L 100.0100 ####[facility] [address] [place], [address] IM GRAN % 0.200 % Normal 0.0-0.9 [facility] Comment on above: Result Comment: IG% - Immature Granulocytes (promyelocytes, myelocytes andmetamyelocytes) > 1% indicates that a LEFT SHIFT is Present. Performed By: #### L 100.0100 ####[facility] [address] [place], [address] Lymphocytes 4.01 X10 3/ul Normal 0.83-4.51 [facility] Comment on above: Performed By: #### L 100.0100 ####[facility] [address] [place], [address] Lymphocytes/100 leukocytes 36.9 % Normal 19-41 [facility] Comment on above: Performed By: #### L 100.0100 ####[facility] [address] [place], [address] MCH 33.2 pg High 27.0-32.0 [facility] Comment on above: Performed By: #### L 100.0100 ####[facility] [address] [place], [address] MCHC mass conc (RBC) 34.1 g/gl Normal 32-36 [facility] Comment on above: Performed By: #### L 100.0100 ####[facility] [address] [place], [address] MCV 97.3 fL Normal 81-99 [facility] Comment on above: Performed By: #### L 100.0100 ####[facility] [address] [place], [address] Monocytes/100 leukocytes 6.0 % Normal 0-10 [facility] Comment on above: Performed By: #### L 100.0100 ####[facility] [address] [place], [address] Neutrophils/100 WBC Auto (Bld) 55.1 % Normal 47-70 [facility] Comment on above: Performed By: #### L 100.0100 ####[facility] [address] [place], [address] Platelet mean volume (PMV) 9.7 fL Normal 6.2-12.0 [facility] Comment on above: Performed By: #### L 100.0100 ####[facility] [address] [place], [address] Platelets 320 10*3/uL Normal 150-450 [facility] Comment on above: Performed By: #### L 100.0100 ####[facility] [address] [place], [address] RDW SD 42.0 fl Normal 35.1-43.9 [facility] Comment on above: Performed By: #### L 100.0100 ####[facility] [address] [place], [address] WBC (Leukocytes) 10.9 10*3/uL Normal 4.4-11.0 [facility] Comment on above: Performed By: #### L 100.0100 ####[facility] [address] [place], [address] Urinalysis, Completeon 07-07 MUCUS, URINE 0 SEEN Normal [facility] Comment on above: Order Comment: Order Date: 07/07/17How was Urine Obtained? LUMBER TALLIER TO SPECIFY Performed By: #### L 400.0001 ####[facility] [address] [place], [address] SQUAM EPI 0 SEEN Normal 5-10 [facility] Comment on above: Order Comment: Order Date: 07/07/17How was Urine Obtained? LUMBER TALLIER TO SPECIFY Performed By: #### L 400.0001 ####[facility] [address] [place], [address] Urine, bacteria in sediment 0 SEEN Normal None Seen [facility] Comment on above: Order Comment: Order Date: 07/07/17How was Urine Obtained? LUMBER TALLIER TO SPECIFY Performed By: #### L 400.0001 ####[facility] [address] [place], [address] Urine, erythrocytes 0-5 SEEN Normal 0-5 [facility] Comment on above: Order Comment: Order Date: 07/07/17How was Urine Obtained? LUMBER TALLIER TO SPECIFY Performed By: #### L 400.0001 ####[facility] [address] [place], [address] WBC (Leukocytes) 0 SEEN Normal 0-5 [facility] Comment on above: Order Comment: Order Date: 07/07/17How was Urine Obtained? LUMBER TALLIER TO SPECIFY Performed By: #### L 400.0001 ####[facility] [address] [place], [address] BILIRUBIN URINE Negative Normal Negative [facility] Comment on above: Order Comment: Order Date: 07/07/17How was Urine Obtained? LUMBER TALLIER TO SPECIFY Performed By: #### L 400.0001 ####[facility] [address] [place], [address] Glucose mass conc Normal Normal Normal [facility] Comment on above: Order Comment: Order Date: 07/07/17How was Urine Obtained? LUMBER TALLIER TO SPECIFY Performed By: #### L 400.0001 ####[facility] [address] [place], [address] KETONE UR Negative Normal Negative [facility] Comment on above: Order Comment: Order Date: 07/07/17How was Urine Obtained? LUMBER TALLIER TO SPECIFY Performed By: #### L 400.0001 ####[facility] [address] [place], [address] LEUK ESTERASE 25 /ul High Negative [facility] Comment on above: Order Comment: Order Date: 07/07/17How was Urine Obtained? LUMBER TALLIER TO SPECIFY Performed By: #### L 400.0001 ####[facility] [address] [place], [address] NITRITE UR Negative Normal Negative [facility] Comment on above: Order Comment: Order Date: 07/07/17How was Urine Obtained? LUMBER TALLIER TO SPECIFY Performed By: #### L 400.0001 ####[facility] [address] [place], [address] OCCULT BLOOD-UR Negative Normal Negative [facility] Comment on above: Order Comment: Order Date: 07/07/17How was Urine Obtained? LUMBER TALLIER TO SPECIFY Performed By: #### L 400.0001 ####[facility] [address] [place], [address] pH UR 6.0 Normal 5.0 - 8.0 [facility] Comment on above: Order Comment: Order Date: 07/07/17How was Urine Obtained? LUMBER TALLIER TO SPECIFY Performed By: #### L 400.0001 ####[facility] [address] [place], [address] PROT DIPSTX Negative Normal Negative [facility] Comment on above: Order Comment: Order Date: 07/07/17How was Urine Obtained? LUMBER TALLIER TO SPECIFY Performed By: #### L 400.0001 ####[facility] [address] [place], [address] SP.GR. DIPSTX 1.010 Normal 1.002-1.030 [facility] Comment on above: Order Comment: Order Date: 07/07/17How was Urine Obtained? LUMBER TALLIER TO SPECIFY Performed By: #### L 400.0001 ####[facility] [address] [place], [address] Urine, clarity Clear Normal Clear [facility] Comment on above: Order Comment: Order Date: 07/07/17How was Urine Obtained? LUMBER TALLIER TO SPECIFY Performed By: #### L 400.0001 ####[facility] [address] [place], [address] Urine, color Yellow Normal Yellow [facility] Comment on above: Order Comment: Order Date: 07/07/17How was Urine Obtained? LUMBER TALLIER TO SPECIFY Performed By: #### L 400.0001 ####[facility] [address] [place], [address] UROBILI Normal Normal Normal [facility] Comment on above: Order Comment: Order Date: 07/07/17How was Urine Obtained? LUMBER TALLIER TO SPECIFY Performed By: #### L 400.0001 ####[facility] [address] [place], [address] Vital Signs Date Time Vital Sign Value Performing Clinician Carmella torres 01-02-2025 11:13-0400 Diastolic blood pressure 84 mm[Hg] Prince Lorenzo MD Work Phone: [facility] 01-02-2025 11:13-0400 Heart rate 60 /min Prince Lorenzo MD Work Phone: [facility] 01-02-2025 11:13-0400 Systolic blood pressure 142 mm[Hg] Prince Lorenzo MD Work Phone: [facility] 01-02-2025 10:37-0400 Body height 160 cm Prince Lorenzo MD Work Phone: [facility] 01-02-2025 10:37-0400 Body mass index (BMI) [Ratio] 35.57 kg/m2 Prince Lorenzo MD Work Phone: [facility] 01-02-2025 10:37-0400 Body weight 91.08 kg Prince Lorenzo MD Work Phone: [facility] 11-29-2024 10:50-0400 Body height 161.9 cm Ruma Westfall MD Work Phone: [facility] 11-29-2024 10:50-0400 Body mass index (BMI) [Ratio] 36.57 kg/m2 Ruma Westfall MD Work Phone: [facility] 11-29-2024 10:50-0400 Body weight 95.89 kg Ruma Westfall MD Work Phone: [facility] 11-29-2024 10:50-0400 Diastolic blood pressure 76 mm[Hg] Ruma Westfall MD Work Phone: [facility] 11-29-2024 10:50-0400 Heart rate 79 /min Ruma Westfall MD Work Phone: [facility] 11-29-2024 10:50-0400 SaO2% (BldA) [Mass fraction] 100 % Ruma Westfall MD Work Phone: [facility] 11-29-2024 10:50-0400 Systolic blood pressure 138 mm[Hg] Ruma Westfall MD Work Phone: [facility] 10-05-2024 09:46-0500 Body height 162 cm Ruma Westfall MD Work Phone: [facility] 10-05-2024 09:46-0500 Body mass index (BMI) [Ratio] 37.47 kg/m2 Ruma Westfall MD Work Phone: [facility] 10-05-2024 09:46-0500 Body weight 98.34 kg Ruma Westfall MD Work Phone: [facility] 10-05-2024 09:46-0500 Diastolic blood pressure 76 mm[Hg] Ruma Westfall MD Work Phone: [facility] 10-05-2024 09:46-0500 Heart rate 65 /min Ruma Westfall MD Work Phone: [facility] 10-05-2024 09:46-0500 SaO2% (BldA) [Mass fraction] 97 % Ruma Westfall MD Work Phone: [facility] 10-05-2024 09:46-0500 Systolic blood pressure 138 mm[Hg] Ruma Westfall MD Work Phone: [facility] 09-25-2024 13:05-0500 Body height 160 cm Cee Christianson MD Work Phone: [facility] 09-25-2024 13:05-0500 Body mass index (BMI) [Ratio] 38.66 kg/m2 Cee Christianson MD Work Phone: [facility] 09-25-2024 13:05-0500 Body weight 99 kg Cee Christianson MD Work Phone: [facility] 09-25-2024 13:05-0500 Diastolic blood pressure 81 mm[Hg] Cee Christianson MD Work Phone: [facility] 09-25-2024 13:05-0500 Heart rate 67 /min Cee Christianson MD Work Phone: [facility] 09-25-2024 13:05-0500 Respiratory rate 16 /min Cee Christianson MD Work Phone: [facility] 09-25-2024 13:05-0500 Systolic blood pressure 136 mm[Hg] Cee Christianson MD Work Phone: [facility] 09-21-2024 16:32-0500 Body mass index (BMI) [Ratio] 35.23 kg/m2 Pradeep Blanton MD Work Phone: [facility] 09-21-2024 16:32-0500 Body temperature 99.19 [degF] Pradeep Blanton MD Work Phone: [facility] 09-21-2024 16:32-0500 Body weight 100.5 kg Pradeep Blanton MD Work Phone: [facility] 09-21-2024 16:32-0500 Diastolic blood pressure 82 mm[Hg] Pradeep Blanton MD Work Phone: [facility] 09-21-2024 16:32-0500 Heart rate 80 /min Pradeep Blanton MD Work Phone: [facility] 09-21-2024 16:32-0500 Respiratory rate 16 /min Pradeep Blanton MD Work Phone: [facility] 09-21-2024 16:32-0500 Systolic blood pressure 136 mm[Hg] Pradeep Blanton MD Work Phone: [facility] 09-11-2024 09:39-0500 Body mass index (BMI) [Ratio] 34.66 kg/m2 Krislyn Aberegg PA Work Phone: [facility] 09-11-2024 09:39-0500 Body temperature 98.2 [degF] Krislyn Aberegg PA Work Phone: [facility] 09-11-2024 09:39-0500 Body weight 98.9 kg Krislyn Aberegg PA Work Phone: [facility] 09-11-2024 09:39-0500 Diastolic blood pressure 80 mm[Hg] Krislyn Aberegg PA Work Phone: [facility] 09-11-2024 09:39-0500 Heart rate 75 /min Krislyn Aberegg PA Work Phone: [facility] 09-11-2024 09:39-0500 Respiratory rate 21 /min Krislyn Aberegg PA Work Phone: [facility] 09-11-2024 09:39-0500 SaO2% (BldA) [Mass fraction] 96 % Krislyn Aberegg PA Work Phone: [facility] 09-11-2024 09:39-0500 Systolic blood pressure 128 mm[Hg] Krislyn Aberegg PA Work Phone: [facility] 05-24-2024 11:16-0400 Diastolic blood pressure 86 mm[Hg] Matias Finelli DO Work Phone: [facility] 05-24-2024 11:16-0400 Heart rate 60 /min Matias Finelli DO Work Phone: [facility] 05-24-2024 11:16-0400 SaO2% (BldA) [Mass fraction] 98 % Matias Finelli DO Work Phone: [facility] 05-24-2024 11:16-0400 Systolic blood pressure 188 mm[Hg] Matias Finelli DO Work Phone: [facility] 05-24-2024 10:14-0400 Respiratory rate 16 /min Matias Finelli DO Work Phone: [facility] 05-24-2024 09:55-0400 Body mass index (BMI) [Ratio] 37.68 kg/m2 Matias Finelli DO Work Phone: [facility] 05-24-2024 09:55-0400 Body temperature 98.49 [degF] Matias Finelli DO Work Phone: [facility] 05-24-2024 09:55-0400 Body weight 107.5 kg Matias Finelli DO Work Phone: [facility] 02-21-2024 08:34-0400 Body height 168.9 cm Cee Christianson MD Work Phone: [facility] 02-21-2024 08:34-0400 Body mass index (BMI) [Ratio] 37.68 kg/m2 Cee Christianson MD Work Phone: [facility] 02-21-2024 08:34-0400 Body temperature 97.39 [degF] Cee Christianson MD Work Phone: [facility] 02-21-2024 08:34-0400 Body weight 107.5 kg Cee Christianson MD Work Phone: [facility] 02-21-2024 08:34-0400 Diastolic blood pressure 62 mm[Hg] Cee Christianson MD Work Phone: [facility] 02-21-2024 08:34-0400 Heart rate 67 /min Cee Christianson MD Work Phone: [facility] 02-21-2024 08:34-0400 Respiratory rate 16 /min Cee Christianson MD Work Phone: [facility] 02-21-2024 08:34-0400 SaO2% (BldA) [Mass fraction] 96 % Cee Christianson MD Work Phone: [facility] 02-21-2024 08:34-0400 Systolic blood pressure 130 mm[Hg] Cee Christianson MD Work Phone: [facility] 12-14-2023 09:10-0400 Diastolic blood pressure 72 mm[Hg] Thuy Stewart JOURNEYMAN ELECTRICIAN PV INSTALLER.ADJUNCT PROFESSOR Work Phone: [facility] 12-14-2023 09:10-0400 Systolic blood pressure 144 mm[Hg] Thuy Sunitha JOURNEYMAN ELECTRICIAN PV INSTALLER.ADJUNCT PROFESSOR Work Phone: [facility] 12-14-2023 09:08-0400 Body mass index (BMI) [Ratio] 39.27 kg/m2 Thuy Jeffersonr JOURNEYMAN ELECTRICIAN PV INSTALLER.ADJUNCT PROFESSOR Work Phone: [facility] 12-14-2023 09:08-0400 Body weight 112.04 kg Thuy Jeffersonr JOURNEYMAN ELECTRICIAN PV INSTALLER.ADJUNCT PROFESSOR Work Phone: [facility] 12-14-2023 09:08-0400 Heart rate 66 /min Thuy Jeffersonr JOURNEYMAN ELECTRICIAN PV INSTALLER.ADJUNCT PROFESSOR Work Phone: [facility] 12-14-2023 09:08-0400 SaO2% (BldA) [Mass fraction] 99 % Thuy Jeffersonr JOURNEYMAN ELECTRICIAN PV INSTALLER.ADJUNCT PROFESSOR Work Phone: [facility] 09-14-2023 13:21-0500 Body height 168.9 cm Cee Christianson MD Work Phone: [facility] 09-14-2023 13:21-0500 Body weight 106.14 kg Cee Christianson MD Work Phone: [facility] 09-14-2023 13:21-0500 Diastolic blood pressure 80 mm[Hg] Cee Christianson MD Work Phone: [facility] 09-14-2023 13:21-0500 Heart rate 64 /min Cee Christianson MD Work Phone: [facility] 09-14-2023 13:21-0500 Respiratory rate 16 /min Cee Christianson MD Work Phone: [facility] 09-14-2023 13:21-0500 Systolic blood pressure 130 mm[Hg] Cee Christianson MD Work Phone: [facility] 02-19-2023 10:08-0400 Body temperature 96.8 [degF] Cee Christianson MD Work Phone: [facility] 02-19-2023 10:08-0400 Body weight 96.62 kg Cee Christianson MD Work Phone: [facility] 02-19-2023 10:08-0400 Diastolic blood pressure 72 mm[Hg] Cee Christianson MD Work Phone: [facility] 02-19-2023 10:08-0400 Heart rate 68 /min Cee Christianson MD Work Phone: [facility] 02-19-2023 10:08-0400 Respiratory rate 18 /min Cee Christianson MD Work Phone: [facility] 02-19-2023 10:08-0400 SaO2% (BldA) [Mass fraction] 96 % Cee Christianson MD Work Phone: [facility] 02-19-2023 10:08-0400 Systolic blood pressure 138 mm[Hg] Cee Christianson MD Work Phone: [facility] 12-18-2022 10:47-0400 Diastolic blood pressure 80 mm[Hg] Thuy Sunitha JOURNEYMAN ELECTRICIAN PV INSTALLER.ADJUNCT PROFESSOR Work Phone: [facility] 12-18-2022 10:47-0400 Systolic blood pressure 160 mm[Hg] Thuy Sunitha JOURNEYMAN ELECTRICIAN PV INSTALLER.ADJUNCT PROFESSOR Work Phone: [facility] 12-18-2022 10:45-0400 Body weight 97.98 kg Thuy Sunitha JOURNEYMAN ELECTRICIAN PV INSTALLER.ADJUNCT PROFESSOR Work Phone: [facility] 12-18-2022 10:45-0400 Heart rate 68 /min Thuy Sunitha JOURNEYMAN ELECTRICIAN PV INSTALLER.ADJUNCT PROFESSOR Work Phone: [facility] 12-18-2022 10:45-0400 SaO2% (BldA) [Mass fraction] 98 % Thuy Sunitha JOURNEYMAN ELECTRICIAN PV INSTALLER.ADJUNCT PROFESSOR Work Phone: [facility] 06-23-2022 14:23-0500 Diastolic blood pressure 92 mm[Hg] Zakia Sneed JOURNEYMAN ELECTRICIAN PV INSTALLER.OFFENDER EMPLOYMENT SPECIALIST Work Phone: [facility] 06-23-2022 14:23-0500 Heart rate 67 /min Zakia Sneed JOURNEYMAN ELECTRICIAN PV INSTALLER.OFFENDER EMPLOYMENT SPECIALIST Work Phone: [facility] 06-23-2022 14:23-0500 Systolic blood pressure 157 mm[Hg] Zakia Sneed JOURNEYMAN ELECTRICIAN PV INSTALLER.OFFENDER EMPLOYMENT SPECIALIST Work Phone: [facility] 06-23-2022 14:12-0500 Body weight 85.28 kg Zakia Sagastumes JOURNEYMAN ELECTRICIAN PV INSTALLER.OFFENDER EMPLOYMENT SPECIALIST Work Phone: [facility] 06-23-2022 14:12-0500 Respiratory rate 16 /min Zakia Sneed JOURNEYMAN ELECTRICIAN PV INSTALLER.OFFENDER EMPLOYMENT SPECIALIST Work Phone: [facility] 12-19-2021 13:55-0400 Body weight 84.37 kg Cee Christianson MD Work Phone: [facility] 12-19-2021 13:55-0400 Diastolic blood pressure 68 mm[Hg] Cee Christianson MD Work Phone: [facility] 12-19-2021 13:55-0400 Heart rate 76 /min Cee Christianson MD Work Phone: [facility] 12-19-2021 13:55-0400 Respiratory rate 16 /min Cee Christianson MD Work Phone: [facility] 12-19-2021 13:55-0400 Systolic blood pressure 140 mm[Hg] Cee Christianson MD Work Phone: [facility] Encounters Encounter Date Encounter Type Care Provider Facility Start: 02-12-2025 End: 02-12-2025 ambulatory Smith Caro PT Work Phone: [facility] Comment on above: Gait instability (Pr imary Dx) Start: 02-08-2025 End: 02-08-2025 ambulatory Smith Caro PT Work Phone: [facility] Comment on above: Gait instability (Pr imary Dx) Start: 02-05-2025 End: 02-05-2025 ambulatory Smith Caro PT Work Phone: [facility] Comment on above: Gait instability (Pr imary Dx) Start: 01-25-2025 End: 01-25-2025 ambulatory Smith Caro PT Work Phone: [facility] Comment on above: Gait instability (Pr imary Dx) Start: 01-16-2025 End: 01-16-2025 ambulatory Cee Christianson MD Work Phone: [facility] [place] Start: 01-16-2025 End: 01-16-2025 Patient encounter procedure Cee Christianson MD Work Phone: [facility] [place] Comment on above: Population Health Na vigation Outreach ([facility] ) Start: 01-10-2025 End: 01-10-2025 ambulatory Christin Walsh FORENSIC STRUCTURAL ENGINEER [facility] Comment on above: Gait instability (Pr imary Dx) Start: 01-09-2025 End: 01-09-2025 Telephone encounter Araseli Lagos RN [facility] Start: 01-04-2025 End: 01-04-2025 ambulatory [facility] Facility:[facility] Start: 01-02-2025 End: 01-02-2025 ambulatory PRINCE LORENZO [facility] Start: 01-02-2025 End: 01-02-2025 Office outpatient new 45 minutes Prince Lorenzo MD Work Phone: [facility] Comment on above: Lumbar stenosis with neurogenic claudication (Primary Dx); Closed wedge compression fracture of T11 vertebra, initial encounter (HCC); Arachnoiditis Start: 12-30-2024 ambulatory CEE CHRISTIANSON Facilit y:[facility] Start: 12-30-2024 End: 12-30-2024 Subsequent hospital visit by physician [facility] Comment on above: 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] Start: 12-27-2024 End: 01-01-2025 Telephone encounter Cee Christianson MD Work Phone: [facility] [place] Comment on above: xrays on disc Start: 12-25-2024 End: 12-29-2024 Telephone encounter Cee Christianson MD Work Phone: [facility] [place] Comment on above: Orders Start: 11-30-2024 End: 11-30-2024 ambulatory Danny Tucker PT Work Phone: [facility] Comment on above: Gait instability (Pr imary Dx) Start: 11-29-2024 End: 11-29-2024 Office consultation new/estab patient 60 min Ruma Westfall MD Work Phone: Geriatrics Comment on above: Alzheimer's disease (HCC) (Primary Dx); History of traumatic brain injury Start: 11-29-2024 End: 11-29-2024 ambulatory CEE CHRISTIANSNO Facility:[facility] Start: 11-16-2024 End: 01-16-2025 Follow-up encounter Zakia Sneed APRN.OFFENDER EMPLOYMENT SPECIALIST Work Phone: [facility] [place] Start: 11-12-2024 End: 01-12-2025 Follow-up encounter Ruma Westfall MD Work Phone: [facility] [place] Start: 11-10-2024 End: 11-10-2024 Refill Cee Christianson MD Work Phone: [facility] [place] Comment on above: Refill Request Start: 11-07-2024 ambulatory RUMA WESTFALL Facility:1 [id number] Start: 11-07-2024 End: 11-07-2024 Subsequent hospital visit by physician [facility] Work Phone: [facility] Comment on above: Cognitive impairment , mild, so stated [G31.84] Start: 11-01-2024 End: 11-01-2024 ambulatory Danny Tucker PT Work Phone: [facility] Comment on above: Gait instability (Pr imary Dx) Start: 10-27-2024 End: 10-30-2024 Refill Ruma Westfall MD Work Phone: Geriatrics Comment on above: Med Change Request Start: 10-16-2024 End: 10-17-2024 Refill Cee Christianson MD Work Phone: [facility] [place] Comment on above: Refill Request Start: 10-09-2024 End: 10-09-2024 ambulatory CEE Gama DE LA CRUZAMPRUSTY Facility:[facility] Start: 10-09-2024 End: 10-09-2024 Subsequent hospital visit by physician Screen Mammo [facility] Comment on above: Encounter for screen ing mammogram for breast cancer [Z12.31] Start: 10-06-2024 End: 12-06-2024 Follow-up encounter Ruma Westfall MD Work Phone: [facility] [place] Start: 10-05-2024 End: 10-13-2024 Telephone encounter Ruma Westfall MD Work Phone: [facility] [place] Comment on above: Patient appointment- may run late Start: 10-05-2024 End: 10-05-2024 ambulatory CEE MONTENEGRORUSTY Facility:[facility] Start: 10-05-2024 End: 10-05-2024 ambulatory CEE Gama MONTENEGRORUSTY Facility:[facility] Start: 10-05-2024 End: 10-05-2024 Office consultation new/estab patient 80 min Ruma Westfall MD Work Phone: Geriatrics Comment on above: Memory deficit (Prim tuan Dx); Cognitive impairment, mild, so stated; Gait instability; Balance disorder Start: 09-25-2024 End: 11-25-2024 Follow-up encounter Pradeep Blanton MD Work Phone: [facility] [place] Start: 09-25-2024 End: 09-25-2024 ambulatory CEE MONTENEGRORUSTY Facility:[facility] Start: 09-25-2024 End: 09-25-2024 Office outpatient visit 40 minutes Cee Christianson MD Work Phone: [facility] [place] Comment on above: Memory deficit (Prim tuan Dx); Obesity, Class II, BMI 35-39.9; Primary hypertension; Elevated ferritin; Vitamin D deficiency; Pain in thoracic spine; Class 2 obesity due to excess calories with body mass index (BMI) of 37.0 to 37.9 in adult, unspecified whether serious comorbidity present; Encounter for long-term current use of medication; Encounter for screening mammogram for breast cancer; Encounter for immunization; Screening for depression Start: 09-22-2024 End: 09-22-2024 ambulatory CEE D TALAMPAS Facility:[facility] Start: 09-22-2024 End: 09-22-2024 Subsequent hospital visit by physician [facility] Work Phone: Radiology Comment on above: Urinary tract infect ion without hematuria, site unspecified [N39.0] Start: 09-21-2024 End: 09-21-2024 ambulatory CEE D TALAMPAS Facility:[facility] Start: 09-21-2024 End: 09-21-2024 Office outpatient visit 25 minutes Pradeep Blanton MD Work Phone: [facility] [place] Comment on above: Urinary tract infect ion without hematuria, site unspecified (Primary Dx); Right-sided low back pain without sciatica, unspecified chronicity Start: 09-13-2024 End: 09-13-2024 Telephone encounter Jean ADAMES Work Phone: [facility] Comment on above: Results Start: 09-11-2024 End: 09-11-2024 Subsequent hospital visit by physician Derek [facility] Work Phone: Radiology Comment on above: Acute midline low ba ck pain with right-sided sciatica [M54.41] Start: 09-11-2024 End: 09-11-2024 ambulatory CEE D TALAMPAS Facility:[facility] Start: 09-11-2024 End: 09-11-2024 Patient encounter procedure Jean ADAMES Work Phone: [facility] Comment on above: Urinary frequency (P rimary Dx); Acute midline low back pain with right-sided sciatica Start: 09-08-2024 End: 09-08-2024 ambulatory CEE D TALAMPAS Facility:[facility] Start: 08-11-2024 End: 08-12-2024 Refill Cee Christianson MD Work Phone: [facility] Comment on above: Refill Request Start: 05-24-2024 End: 05-24-2024 ambulatory CEE D TALAMPAS Facility:[facility] Start: 05-24-2024 End: 05-24-2024 Subsequent hospital visit by physician Matias Zapata DO Work Phone: Ambulatory Surgery Comment on above: Screening for colon cancer [Z12.11] Start: 05-04-2024 End: 05-15-2024 Telephone encounter Cee Christianson MD Work Phone: [facility] [place] Comment on above: Patient Question Start: 04-21-2024 End: 04-21-2024 Telephone encounter Cee Christianson MD Work Phone: [facility] [place] Start: 03-29-2024 Refill Cee sarah MD Work Phone: [facility] Comment on above: Refill Request requesting medicatio n Start: 02-21-2024 End: 02-21-2024 ambulatory CEE CHRISTIANSON Facility:[facility] Start: 02-21-2024 End: 02-21-2024 Office outpatient visit 25 minutes Cee Christianson MD Work Phone: [facility] Comment on above: Primary hypertension (Primary Dx); Allergic rhinitis, unspecified seasonality, unspecified trigger; Hypercholesteremia; Elevated ferritin; Class 2 obesity due to excess calories with body mass index (BMI) of 37.0 to 37.9 in adult, unspecified whether serious comorbidity present; Osteopenia of both hips; Encounter for long-term current use of medication; Screening for colon cancer Start: 02-18-2024 End: 02-18-2024 ambulatory CEE CHRISTIANSON Facility:[facility] Start: 02-16-2024 ambulatory Cee sarah MD Work Phone: [facility] [place] Start: 02-01-2024 Telephone encounter Thuy brooks APRN.CNP Work Phone: [facility] [place] Comment on above: requesting informati on Start: 01-18-2024 Orders Only Cee sarah MD Work Phone: [facility] [place] Comment on above: Patient Question Start: 01-14-2024 Refill Cee sarah MD Work Phone: [address] [place] [address] Comment on above: Refill Request Start: 12-17-2023 End: 12-17-2023 Patient encounter procedure Edgard Dubois PA-C Work Phone: Orthopaedics Comment on above: Primary osteoarthrit is of left knee (Primary Dx); Chronic pain of left knee Start: 12-17-2023 End: 12-17-2023 Subsequent hospital visit by physician Derek [facility] Work Phone: Radiology Comment on above: Left knee pain, unsp ecified chronicity [M25.562] Start: 12-15-2023 Orders Only Edgard smalls PA-C Work Phone: Orthopaedics Comment on above: Left knee pain, unsp ecified chronicity (Primary Dx) Start: 12-14-2023 End: 12-14-2023 Patient encounter procedure Thuy Stewart APRN.CNP Work Phone: [facility] [place] Comment on above: Chronic pain of left knee (Primary Dx); Allergic rhinitis, unspecified seasonality, unspecified trigger; Medication management; Encounter for therapeutic drug monitoring Start: 10-04-2023 Refill Cee sarah MD Work Phone: Internal [facility] Comment on above: Refill Request Start: 09-30-2023 Refill Cee sarah MD Work Phone: Family [facility] Comment on above: Refill Request Start: 09-24-2023 Telephone encounter Cee mccarthy MD Work Phone: [facility] [place] Comment on above: Refill Request Start: 09-14-2023 End: 09-14-2023 Patient encounter procedure Cee Christianson MD Work Phone: [facility] [place] Comment on above: Primary hypertension (Primary Dx); Hypercholesteremia; Chronic pain of left knee; Primary osteoarthritis of both knees; Osteopenia, unspecified location; Elevated ferritin; Class 2 obesity due to excess calories with body mass index (BMI) of 37.0 to 37.9 in adult, unspecified whether serious comorbidity present; Encounter for long-term current use of medication; Need for shingles vaccine; Encounter for immunization Start: 07-03-2023 Refill Thuy Lucas PRN.CNP Work Phone: [facility] [place] Comment on above: Refill Request Start: 05-10-2023 Refill Cee sarah MD Work Phone: [facility] [place] Comment on above: Refill Request Start: 02-25-2023 Refill Cee sarah MD Work Phone: [facility] [place] Comment on above: Refill Request Start: 02-19-2023 End: 02-19-2023 Office outpatient visit 25 minutes Cee Christianson MD Work Phone: [facility] [place] Comment on above: Pes anserinus bursit is of left knee (Primary Dx); Sprain of medial collateral ligament of left knee, initial encounter; Allergic rhinitis, unspecified seasonality, unspecified trigger; Macrocytic anemia; Primary hypertension; Obesity, Class II, BMI 35-39.9; Hypercholesteremia; Osteopenia of both hips; Encounter for long-term current use of medication Start: 01-04-2023 End: 01-04-2023 Subsequent hospital visit by physician Screen Mammo [facility] Comment on above: Encounter for screen ing mammogram for breast cancer [Z12.31] Screening for osteop orosis [Z13.820] Start: 12-18-2022 End: 12-18-2022 Patient encounter procedure Thuy Stewart APRN.CNP Work Phone: [facility] [place] Comment on above: Primary hypertension (Primary Dx); Tobacco use disorder; Generalized anxiety disorder; Obesity, Class II, BMI 35-39.9; Encounter for screening mammogram for breast cancer; Screening for osteoporosis; Asymptomatic menopause; Screening for depression Start: 08-31-2022 ambulatory [facility] [place] Comment on above: Population Health Na vigation Outreach ([employer] care gaps) Start: 07-31-2022 Telephone encounter Thuy brooks APRN.CNP Work Phone: [facility] [place] Comment on above: Patient Update (Bloo d Pressure Results) Start: 07-27-2022 Telephone encounter Zakia almodovar JOURNEYMAN ELECTRICIAN PV INSTALLER.OFFENDER EMPLOYMENT SPECIALIST Work Phone: [facility] [place] Comment on above: Recheck (lisinopril dose) Start: 06-23-2022 End: 06-23-2022 Patient encounter procedure Zakia Sneed JOURNEYMAN ELECTRICIAN PV INSTALLER.OFFENDER EMPLOYMENT SPECIALIST Work Phone: [facility] [place] Comment on above: Asthma (Primary Dx); Need for shingles vaccine; Screening for osteoporosis; Asymptomatic menopause; Encounter for immunization Start: 02-20-2022 Refill Cee sarah MD Work Phone: [facility] [place] Comment on above: Opened In Error Start: 01-01-2022 Documentation procedure Mammog umer Coordinator [facility] Start: 01-01-2022 Letter encounter Mammography Coordinator [facility] Department Start: 01-01-2022 End: 01-01-2022 Subsequent hospital visit by physician Screen Mammo [facility] M[facility] Comment on above: Encounter for screen ing mammogram for breast cancer [Z12.31] Start: 12-19-2021 End: 12-19-2021 Office outpatient visit 40 minutes Cee Christianson MD Work Phone: Internal Medicine [place] Comment on above: Essential hypertensi on (Primary Dx); Degeneration of lumbar intervertebral disc; Neural foraminal stenosis of lumbar spine; S/P lumbar fusion; Allergic symptoms, subsequent encounter; Allergic conjunctivitis of both eyes and rhinitis; Allergic rhinitis, unspecified seasonality, unspecified trigger; Moderate persistent asthma without complication; Cigarette smoker; Hypercholesteremia; Encounter for long-term current use of medication Start: 12-15-2021 Refill Cee sarah MD Work Phone: Internal Medicine [place] Comment on above: Refill Request Start: 12-03-2021 ambulatory Cee sarah MD Work Phone: Internal Medicine [facility] [place] Start: 07-18-2017 End: 07-19-2017 Evaluation and management of inpatient Cee Christianson Facility:[facility] Start: 07-15-2017 End: 07-15-2017 Emergency department patient visit Stefano Garcia Facility:[facility] Start: 07-08-2017 End: 07-14-2017 Evaluation and management of inpatient Cee Christianson Facility:[facility] Procedures Date Procedure Procedure Detail Performing Clinician Start: 12-30-2024 Mri spinal canal lum bar w/o contrast material Cee Christianson MD Work Phone: Start: 11-07-2024 MRI 3D BRAIN QUANT Christiano Westfall MD Work Phone: Start: 11-07-2024 Mri brain brain stem w/o contrast material Ruma Westfall MD Work Phone: Start: 10-09-2024 Screening mammograph y bi 2-view breast inc cad Cee Chirstianson MD Work Phone: Start: 09-25-2024 PFIZER-BIONTECH COVI D-19 VACCINE AGE 12+ YR (COMIRNATY) Cee Christianson MD Work Phone: Start: 09-25-2024 Adult depression scr eening assessment Ruma Westfall MD Work Phone: Start: 09-21-2024 Urnls dip stick/tabl et rgnt auto w/o microscopy Pradeep Blanton MD Work Phone: Start: 09-11-2024 Radex spine lumbosac ral 2/3 views Jean ADAMES Work Phone: Start: 09-11-2024 Urnls dip stick/tabl et rgnt auto w/o microscopy Julio Nava APRN.CNP Work Phone: Start: 09-08-2024 Lipid 1996 panel - S pema or Plasma Jean ADAMES Work Phone: Start: 05-24-2024 Colonoscopy flx dx w /collj spec when pfrmd Cee Christianson MD Work Phone: Start: 05-24-2024 Colonoscopy Matias Zena gaitan DO Work Phone: Start: 02-18-2024 Lipid 1996 panel - S pema or Plasma Cee Christianson MD Work Phone: Start: 12-17-2023 Arthrocentesis aspir &/inj major jt/bursa w/o us Edgard Dubois PA-C Work Phone: Start: 09-14-2023 PFIZER-BIONTECH COVI D-19 VACCINE ( SEASON) AGE 12+ YR Cee Christianson MD Work Phone: Start: 03-29-2023 Lipid 1996 panel - S pema or Plasma Cee Christianson MD Work Phone: Start: 01-04-2023 Dxa bone density shirley dy 1/> sites axial skel Thuy Stewart JOURNEYMAN ELECTRICIAN PV INSTALLER.ADJUNCT PROFESSOR Work Phone: Start: 01-04-2023 End: 01-04-2023 Mammography Thuy Stewart JOURNEYMAN ELECTRICIAN PV INSTALLER.CN P Work Phone: Start: 06-23-2022 INFLUENZA SEASONAL QUADRIVALENT HIGH DOSE AGE 65+ Zakia Sneed JOURNEYMAN ELECTRICIAN PV INSTALLER.OFFENDER EMPLOYMENT SPECIALIST Work Phone: Start: 06-23-2022 PFIZER-BIONTECH COVI D-19 BIVALENT BOOSTER VACCINE, AGE 12+ YR Zakia Sneed JOURNEYMAN ELECTRICIAN PV INSTALLER.OFFENDER EMPLOYMENT SPECIALIST Work Phone: Start: 01-01-2022 End: 01-01-2022 Screening mammography bi 2-view breast inc cad Bulk Order Provider Start: 12-30-2020 Adult depression scr eening assessment Cee Christianson MD Work Phone: Start: 10-31-2020 Mammography Cee dodd MD Work Phone: Start: 02-07-2014 Colonoscopy Cee dodd MD Work Phone: Plan of Treatment Date Care Activity Detail Author Start: 05-24-2034 Screening for malignant neoplasm of colon [facility] Start: 09-08-2029 Lipid panel Lipid Screening [facility] Start: 02-17-2029 Lipid panel Lipid Screening [facility] Start: 03-29-2028 Lipid 1996 panel - Serum or Plasma Lipid Screening [facility] Start: 03-29-2028 Lipid panel Lipid Screening [facility] Start: 09-08-2027 Diabetes Screening Diabetes Screening [facility] Start: 06-20-2027 LIPID SCREEN LIPID SCREEN [facility] Start: 02-17-2027 Diabetes Screening Diabetes Screening [facility] Start: 12-18-2026 LIPID SCREEN LIPID SCREEN [facility] Start: 05-24-2026 LIPID SCREEN LIPID SCREEN [facility] Start: 03-29-2026 Diabetes Screening Diabetes Screening [facility] Start: 10-09-2025 Screening for malignant neoplasm of breast Mammogram Screening [facility] Start: 09-25-2025 Annual PCP Team Chronic Disease Visit Annual PCP Team Chronic Disease Visit [facility] Start: 09-25-2025 Depression Screening Depression Screening [facility] Start: 09-25-[address] [facility] Comment on above: Postponed from 1972 (Declined at t his time) Start: 09-21-2025 Annual PCP Team Chronic Disease Visit Annual PCP Team Chronic Disease Visit [facility] Start: 08-27-2025 End: 08-27-2025 Patient encounter procedure 08/27/2025 11:00 AM EST Office Visit [facility] [place] [address] [place] [address] Cee Christianson MD [address] [place] [address] 6 month f/u [facility] [place] Comment on above: 6 month f/u Start: 06-20-2025 DIABETES SCREEN DIABETES SCREEN [facility] Start: 05-30-2025 End: 05-30-2025 Patient encounter procedure 05/30/2025 3:00 PM EDT Office Visit Geriatrics [address] [place] [address] Ruma Westfall MD [address] [place] [address] 6 mo follow up - [facility] Comment on above: 6 mo follow up - [facility]la Start: 04-10-2025 End: 04-10-2025 Patient encounter procedure 04/10/2025 11:00 AM EDT Office Visit [facility] [address] [place] [address] [phone] Prince Lorenzo MD [address] [place] [address] [phone] [facility] Start: 04-04-2025 End: 01-02-2026 XR Lumbar spine Views W flexion and W extension XR lumbar spine 4-5 view Imaging Routine Lumbar stenosis with neurogenic claudication Closed wedge compression fracture of T11 vertebra, initial encounter (HCC) Arachnoiditis Expected: 04/04/2025, Expires: 01/02/2026 [facility] Work Phone: Comment on above: Expected: 04/04/2025, Expires: Start: 04-04-2025 End: 01-02-2026 XR Thoracic spine 4 Views XR THORACIC SPINE COMPLETE 4+ VIEWS Imaging Routine Lumbar stenosis with neurogenic claudication Closed wedge compression fracture of T11 vertebra, initial encounter (HCC) Arachnoiditis Expected: 04/04/2025, Expires: 01/02/2026 [facility] Comment on above: Expected: 04/04/2025, Expires: Start: 03-25-2025 Covid-19 Vaccine ( season) Covid-19 Vaccine () [facility] Start: 02-21-2025 End: 02-21-2025 Patient encounter procedure 02/21/2025 9:20 AM EDT Office Visit Internal Medicine [place] [address] [facility] [place] [address] Cee Christianson MD [address] [place] [address] 6 month follow up [facility] [place] Comment on above: 6 month follow up Start: 02-20-2025 Annual PCP Team Chronic Disease Visit Annual PCP Team Chronic Disease Visit [facility] Start: 02-12-2025 End: 02-12-2025 ambulatory 02/12/2025 10:45 AM EDT OT/PT/Speech Visit [facility] [address] [place] [address] Smith Caro, PT [address] [facility] [place] [id number] R26.81 (ICD-10-CM) - Gait instability [facility] Comment on above: R26.81 (ICD-10-CM) - Gait instability Start: 02-08-2025 End: 02-08-2025 ambulatory 02/08/2025 10:45 AM EDT OT/PT/Speech Visit [facility] [address] [place] [address] Smith Caro, PT [address] [place] [address] R26.81 (ICD-10-CM) - Gait instability [facility] Comment on above: R26.81 (ICD-10-CM) - Gait instability Start: 02-05-2025 End: 02-05-2025 ambulatory 02/05/2025 9:15 AM EDT OT/PT/Speech Visit [facility] [address] [place] [address] Smith Caro, PT [address] [place], [place] [address] R26.81 (ICD-10-CM) - Gait instability [facility] Comment on above: R26.81 (ICD-10-CM) - Gait instability Start: 02-01-2025 End: 02-01-2025 ambulatory [facility] Comment on above: R26.81 (ICD-10-CM) - Gait instability Start: 01-29-2025 End: 01-29-2025 ambulatory 01/29/2025 11:45 AM EDT OT/PT/Speech Visit [facility] [address] [place] [address] Christin Walsh, FORENSIC STRUCTURAL ENGINEER [address] [place] [address] R26.81 (ICD-10-CM) - Gait instability [facility] Comment on above: R26.81 (ICD-10-CM) - Gait instability Start: 01-28-2025 End: 04-29-2025 25-hydroxyvitamin D3 [Mass/volume] in Serum or Plasma VITAMIN D 25 HYDROXY Lab Routine Vitamin D deficiency Encounter for long-term current use of medication Expected: 01/28/2025, Expires: 04/29/2025 [facility] Comment on above: Expected: 01/28/2025, Expires: Start: 01-28-2025 End: 04-29-2025 CBC panel - Blood by Automated count COMPLETE BLOOD COUNT Lab Routine Primary hypertension Encounter for long-term current use of medication Expected: 01/28/2025, Expires: 04/29/2025 [facility] Comment on above: Expected: 01/28/2025, Expires: Start: 01-28-2025 End: 04-29-2025 Comprehensive metabolic 2000 panel - Serum or Plasma COMPREHENSIVE METABOLIC PANEL Lab Routine Primary hypertension Encounter for long-term current use of medication Expected: 01/28/2025, Expires: 04/29/2025 [facility] Work Phone: Comment on above: Expected: 01/28/2025, Expires: Start: 01-28-2025 End: 04-29-2025 Ferritin [Mass/volume] in Serum or Plasma FERRITIN Lab Routine Elevated ferritin Encounter for long-term current use of medication Expected: 01/28/2025, Expires: 04/29/2025 [facility] Comment on above: Expected: 01/28/2025, Expires: Start: 01-28-2025 End: 04-29-2025 Magnesium [Mass/volume] in Serum or Plasma MAGNESIUM Lab Routine Encounter for long-term current use of medication Expected: 01/28/2025, Expires: 04/29/2025 [facility] Comment on above: Expected: 01/28/2025, Expires: Start: 01-23-2025 End: 01-23-2025 ambulatory 01/23/2025 7:45 AM EDT OT/PT/Speech Visit [facility] [address] [place] [address] Smith Caro, PT [address] [place], [place] [address] R26.81 (ICD-10-CM) - Gait instability / OK per [facility] staff msg [facility] Comment on above: R26.81 (ICD-10-CM) - Gait instability / OK per [facility] staff [facility] Start: 01-01-2025 End: 01-01-2025 ambulatory 01/01/2025 10:00 AM EDT OT/PT/Speech Visit [facility] [address] [place], [place] [id number] Smith Caro, PT [address] [place] [address] R26.81 (ICD-10-CM) - Gait instability [facility] Comment on above: R26.81 (ICD-10-CM) - Gait instability Start: 12-30-2024 Subsequent hospital visit by physician 12/30/2024 8:00 AM EDT Hospital Encounter [facility] [address] [place] [id number] 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] [facility] Comment on above: Degeneration of intervertebral disc of l umbar region with discogenic back pain [M51.360] Start: 12-18-2024 DTaP/Tdap/Td Vaccines (2 - Td or Tdap) DTaP/Tdap/Td Vaccines (2 - Td or Tdap) [facility] Start: 12-18-[address] [facility] Start: 12-13-2024 Annual PCP Team Chronic Disease Visit Annual PCP Team Chronic Disease Visit [facility] Start: 11-30-2024 End: 11-30-2024 ambulatory 11/30/2024 3:00 PM EDT OT/PT/Speech Visit [facility] [address] [facility] [place], [place] [id number] Danny Tucker, PT [address] [place], [place] [phone] LOW BACK PAIN [facility] Comment on above: LOW BACK PAIN Start: 11-29-2024 End: 11-29-2024 Patient encounter procedure 11/29/2024 11:00 AM EDT Office Visit Geriatrics [address] [place] [address] Ruma Westfall MD [address] [place] [address] MRI FOLLOW UP [facility] Comment on above: MRI FOLLOW UP [facility] Start: 11-07-2024 End: 11-07-2024 Patient encounter procedure 11/07/2024 12:30 PM EDT Appointment [facility] [address] [address] [facility] Comment on above: [phone] Start: 11-01-2024 End: 11-01-2024 ambulatory 11/01/2024 8:30 AM EDT OT/PT/Speech Visit [facility] [address] [place] [address] Danny Tucker, PT [address] [place] [address] Gait instability [R26.81] [facility] Comment on above: Gait instability [R26.81] Start: 10-19-2024 End: 10-19-2024 ambulatory 10/19/2024 10:15 AM EST OT/PT/Speech Visit [facility] [address] [place] [address] Angella Sahu, PT : Gait instability [R26.81] [facility] Comment on above: : Gait instability [R26.81] Start: 10-09-2024 End: 10-09-2024 Patient encounter procedure 10/09/2024 11:10 AM EST Appointment Mammogram [address] [place] [address] : Encounter for screening mammogram for breast cancer [Z12.31] Mammogram Comment on above: : Encounter for screening mammogram for breast cancer [Z12.31] Start: 09-25-2024 End: 09-25-2024 Patient encounter procedure 09/25/2024 1:00 PM EST Office Visit Internal Medicine [place] [address] [facility] [place] [address] Cee Christianson MD [address] [place] [address] yearly physical [facility] [place] Comment on above: yearly physical Start: 09-22-2024 End: 09-22-2024 Patient encounter procedure 09/22/2024 1:45 PM EST Appointment Radiology [address] [place] [address] Urinary tract infection without hematuria, site unspecified [N39.0]; Acute left-sided low back pain without sciatica [M54.50] Radiology Comment on above: Urinary tract infection without hematuri a, site unspecified [N39.0]; Acute left-sided low back pain without sciatica [M54.50] Start: 09-14-2024 Annual PCP Team Chronic Disease Visit Annual PCP Team Chronic Disease Visit [facility] Start: 08-16-2024 Advance Directive Discussion Advance Directive Discussion [facility] Start: 08-16-2024 Medicare Advantage Annual Wellness Visit Medicare Advantage Annual Wellness Visit [facility] Start: 07-23-2024 End: 10-22-2024 25-hydroxyvitamin D3 [Mass/volume] in Serum or Plasma VITAMIN D 25 HYDROXY Lab Routine Encounter for long-term current use of medication Osteopenia of both hips Expected: 07/23/2024 (Approximate), Expires: 10/22/2024 [facility] Comment on above: Expected: 07/23/2024 (Approximate), Expi res: 10/22/2024 Start: 07-23-2024 End: 10-22-2024 CBC panel - Blood by Automated count COMPLETE BLOOD COUNT Lab Routine Primary hypertension Encounter for long-term current use of medication Expected: 07/23/2024 (Approximate), Expires: 10/22/2024 [facility] Comment on above: Expected: 07/23/2024 (Approximate), Expi res: 10/22/2024 Start: 07-23-2024 End: 10-22-2024 Cobalamin (Vitamin B12) [Mass/volume] in Serum or Plasma VITAMIN B12 Lab Routine Encounter for long-term current use of medication Expected: 07/23/2024 (Approximate), Expires: 10/22/2024 [facility] Comment on above: Expected: 07/23/2024 (Approximate), Expi res: 10/22/2024 Start: 07-23-2024 End: 10-22-2024 Comprehensive metabolic 2000 panel - Serum or Plasma COMPREHENSIVE METABOLIC PANEL Lab Routine Primary hypertension Encounter for long-term current use of medication Expected: 07/23/2024 (Approximate), Expires: 10/22/2024 [facility] Work Phone: Comment on above: Expected: 07/23/2024 (Approximate), Expi res: 10/22/2024 Start: 07-23-2024 End: 10-22-2024 Ferritin [Mass/volume] in Serum or Plasma FERRITIN Lab Routine Elevated ferritin Encounter for long-term current use of medication Expected: 07/23/2024 (Approximate), Expires: 10/22/2024 [facility] Comment on above: Expected: 07/23/2024 (Approximate), Expi res: 10/22/2024 Start: 07-23-2024 End: 10-22-2024 Lipid 1996 panel - Serum or Plasma LIPID PANEL BASIC Lab Routine Encounter for long-term current use of medication Expected: 07/23/2024 (Approximate), Expires: 10/22/2024 [facility] Comment on above: Expected: 07/23/2024 (Approximate), Expi res: 10/22/2024 Start: 07-23-2024 End: 10-22-2024 Magnesium [Mass/volume] in Serum or Plasma MAGNESIUM Lab Routine Encounter for long-term current use of medication Expected: 07/23/2024 (Approximate), Expires: 10/22/2024 [facility] Comment on above: Expected: 07/23/2024 (Approximate), Expi res: 10/22/2024 Start: 06-17-2024 Covid-19 Vaccine ( season) Covid-19 Vaccine ( season) [facility] Start: 05-27-2024 Shingrix Vaccine (2 of 2) Shingrix Vaccine (2 of 2) [facility] Start: 05-27-2024 Zoster Vaccines (2 of 2) Zoster Vaccines (2 of 2) [facility] Start: 05-24-2024 DIABETES SCREEN DIABETES SCREEN [facility] Start: 05-24-2024 End: 05-24-2024 Patient encounter procedure Ambulatory Surgery Comment on above: Screening for colon cancer [Z12.11] Start: 05-23-2024 End: 05-23-2024 Patient encounter procedure 05/23/2024 7:45 AM EDT Appointment Ambulatory Surgery [address] [place] [address] Screening for colon cancer [Z12.11] Ambulatory Surgery Comment on above: Screening for colon cancer [Z12.11] Start: 04-16-2024 Covid-19 Vaccine ( season) Covid-19 Vaccine () [facility] Start: 04-16-2024 Influenza vaccination Influenza Vaccine (#1) [facility] Start: 04-11-2024 Covid-19 Vaccine () Covid-19 Vaccine () [facility] Start: 03-14-2024 End: 06-13-2024 25-hydroxyvitamin D3 [Mass/volume] in Serum or Plasma VITAMIN D 25 HYDROXY Lab Routine Osteopenia, unspecified location Expected: 03/14/2024 (Approximate), Expires: 06/13/2024 [facility] Work Phone: Comment on above: Expected: 03/14/2024 (Approximate), Expi res: 06/13/2024 Start: 03-14-2024 End: 06-13-2024 CBC panel - Blood by Automated count CBC Lab Routine Primary hypertension Encounter for long-term current use of medication Expected: 03/14/2024 (Approximate), Expires: 06/13/2024 [facility] Work Phone: Comment on above: Expected: 03/14/2024 (Approximate), Expi res: 06/13/2024 Start: 03-14-2024 End: 06-13-2024 Comprehensive metabolic 2000 panel - Serum or Plasma COMP METABOLIC PANEL Lab Routine Primary hypertension Encounter for long-term current use of medication Expected: 03/14/2024 (Approximate), Expires: 06/13/2024 [facility] Work Phone: Comment on above: Expected: 03/14/2024 (Approximate), Expi res: 06/13/2024 Start: 03-14-2024 End: 06-13-2024 Ferritin [Mass/volume] in Serum or Plasma FERRITIN BLD Lab Routine Elevated ferritin Expected: 03/14/2024 (Approximate), Expires: 06/13/2024 [facility] Work Phone: Comment on above: Expected: 03/14/2024 (Approximate), Expi res: 06/13/2024 Start: 03-14-2024 End: 06-13-2024 Lipid 1996 panel - Serum or Plasma LIPID PANEL BASIC Lab Routine Hypercholesteremia Expected: 03/14/2024 (Approximate), Expires: 06/13/2024 [facility] Work Phone: Comment on above: Expected: 03/14/2024 (Approximate), Expi res: 06/13/2024 Start: 02-21-2024 End: 02-21-2024 Patient encounter procedure 02/21/2024 8:40 AM EDT Office Visit [facility] [address] [place], [place] [id number] Cee Christianson MD [address] [place] [address] 6 month follow up [facility] [place] Comment on above: 6 month follow up Start: 02-20-2024 ANNUAL PCP TEAM CHRONIC DISEASE VISIT ANNUAL PCP TEAM CHRONIC DISEASE VISIT [facility] Start: 02-08-[address] [facility] Start: 02-08-2024 COLORECTAL CANCER SCREENING COLORECTAL CANCER SCREENING [facility] Start: 02-08-2024 Screening for malignant neoplasm of colon [facility] Start: 01-18-2024 End: 04-18-2024 Lipid 1996 panel - Serum or Plasma LIPID PANEL BASIC Lab Routine Hypercholesteremia Expected: 01/18/2024, Expires: 04/18/2024 [facility] Work Phone: Comment on above: Expected: 01/18/2024, Expires: Start: 01-13-2024 Covid-19 Vaccine () Covid-19 Vaccine () [facility] Start: 01-11-2024 End: 04-11-2024 25-hydroxyvitamin D3 [Mass/volume] in Serum or Plasma VITAMIN D 25 HYDROXY Lab Routine Encounter for therapeutic drug monitoring Expected: 01/11/2024, Expires: 04/11/2024 [facility] Comment on above: Expected: 01/11/2024, Expires: Start: 01-11-2024 End: 04-11-2024 CBC W Auto Differential panel - Blood COMPLETE BLOOD COUNT AND DIFFERENTIAL Lab Routine Encounter for therapeutic drug monitoring Expected: 01/11/2024, Expires: 04/11/2024 [facility] Work Phone: Comment on above: Expected: 01/11/2024, Expires: Start: 01-11-2024 End: 04-11-2024 Cobalamin (Vitamin B12) [Mass/volume] in Serum or Plasma VITAMIN B12 Lab Routine Encounter for therapeutic drug monitoring Expected: 01/11/2024, Expires: 04/11/2024 [facility] Comment on above: Expected: 01/11/2024, Expires: Start: 01-11-2024 End: 04-11-2024 Comprehensive metabolic 2000 panel - Serum or Plasma COMPREHENSIVE METABOLIC PANEL Lab Routine Encounter for therapeutic drug monitoring Expected: 01/11/2024, Expires: 04/11/2024 [facility] Comment on above: Expected: 01/11/2024, Expires: Start: 01-11-2024 End: 04-11-2024 Ferritin [Mass/volume] in Serum or Plasma FERRITIN Lab Routine Encounter for therapeutic drug monitoring Expected: 01/11/2024, Expires: 04/11/2024 [facility] Comment on above: Expected: 01/11/2024, Expires: Start: 01-11-2024 End: 04-11-2024 Iron and Iron binding capacity panel - Serum or Plasma IRON AND TIBC Lab Routine Encounter for therapeutic drug monitoring Expected: 01/11/2024, Expires: 04/11/2024 [facility] Comment on above: Expected: 01/11/2024, Expires: Start: 01-11-2024 End: 04-11-2024 Magnesium [Mass/volume] in Serum or Plasma MAGNESIUM Lab Routine Encounter for therapeutic drug monitoring Expected: 01/11/2024, Expires: 04/11/2024 [facility] Comment on above: Expected: 01/11/2024, Expires: Start: 01-05-[address] [facility] Start: 01-05-2024 Screening for malignant neoplasm of breast Mammogram Screening [facility] Start: 12-19-2023 ANNUAL PCP TEAM CHRONIC DISEASE VISIT ANNUAL PCP TEAM CHRONIC DISEASE VISIT [facility] Start: 12-17-2023 End: 12-17-2023 Patient encounter procedure 12/17/2023 11:00 AM EDT Office Visit Orthopaedics [address] [place] [address] Edgard Dubois PA-C [address] [address] Chronic pain of left knee [M25.562, G89.29] Orthopaedics Comment on above: Chronic pain of left knee [M25.562, G89. 29] Start: 08-16-2023 Advance Directive Discussion Advance Directive Discussion [facility] Start: 08-16-2023 Behavioral Health Screening Behavioral Health Screening [facility] Start: 08-16-2023 Depression Assessment Depression Assessment [facility] Start: 07-29-2023 ANNUAL PCP TEAM CHRONIC DISEASE VISIT ANNUAL PCP TEAM CHRONIC DISEASE VISIT [facility] Start: 04-16-2023 Covid-19 Vaccine () Covid-19 Vaccine () [facility] Start: 04-16-2023 Influenza vaccination INFLUENZA (#1) [facility] Start: 03-22-2023 End: 05-22-2023 25-hydroxyvitamin D3 [Mass/volume] in Serum or Plasma VITAMIN D 25 HYDROXY Lab Routine Osteopenia of both hips Encounter for long-term current use of medication Expected: 03/22/2023 (Approximate), Expires: 05/22/2023 [facility] Work Phone: Comment on above: Expected: 03/22/2023 (Approximate), Expi res: 05/22/2023 Start: 03-22-2023 End: 05-22-2023 CBC panel - Blood by Automated count CBC Lab Routine Primary hypertension Encounter for long-term current use of medication Expected: 03/22/2023 (Approximate), Expires: 05/22/2023 [facility] Work Phone: Comment on above: Expected: 03/22/2023 (Approximate), Expi res: 05/22/2023 Start: 03-22-2023 End: 05-22-2023 Cobalamin (Vitamin B12) [Mass/volume] in Serum or Plasma VITAMIN B12 BLOOD Lab Routine Macrocytic anemia Encounter for long-term current use of medication Expected: 03/22/2023 (Approximate), Expires: 05/22/2023 [facility] Work Phone: Comment on above: Expected: 03/22/2023 (Approximate), Expi res: 05/22/2023 Start: 03-22-2023 End: 05-22-2023 Comprehensive metabolic 2000 panel - Serum or Plasma COMP METABOLIC PANEL Lab Routine Primary hypertension Encounter for long-term current use of medication Expected: 03/22/2023 (Approximate), Expires: 05/22/2023 [facility] Work Phone: Comment on above: Expected: 03/22/2023 (Approximate), Expi res: 05/22/2023 Start: 03-22-2023 End: 05-22-2023 Ferritin [Mass/volume] in Serum or Plasma FERRITIN BLD Lab Routine Macrocytic anemia Encounter for long-term current use of medication Expected: 03/22/2023 (Approximate), Expires: 05/22/2023 [facility] Work Phone: Comment on above: Expected: 03/22/2023 (Approximate), Expi res: 05/22/2023 Start: 03-22-2023 End: 05-22-2023 Folate [Mass/volume] in Serum or Plasma FOLATE SERUM Lab Routine Macrocytic anemia Encounter for long-term current use of medication Expected: 03/22/2023 (Approximate), Expires: 05/22/2023 [facility] Work Phone: Comment on above: Expected: 03/22/2023 (Approximate), Expi res: 05/22/2023 Start: 03-22-2023 End: 05-22-2023 Iron and Iron binding capacity panel - Serum or Plasma IRON + TIBC Lab Routine Macrocytic anemia Encounter for long-term current use of medication Expected: 03/22/2023 (Approximate), Expires: 05/22/2023 [facility] Work Phone: Comment on above: Expected: 03/22/2023 (Approximate), Expi res: 05/22/2023 Start: 03-22-2023 End: 05-22-2023 Lipid 1996 panel - Serum or Plasma LIPID PANEL BASIC Lab Routine Hypercholesteremia Encounter for long-term current use of medication Expected: 03/22/2023 (Approximate), Expires: 05/22/2023 [facility] Work Phone: Comment on above: Expected: 03/22/2023 (Approximate), Expi res: 05/22/2023 Start: 01-01-[address] [facility] Start: 12-19-2022 ANNUAL PCP TEAM CHRONIC DISEASE VISIT ANNUAL PCP TEAM CHRONIC DISEASE VISIT [facility] Start: 10-21-2022 COVID-19 VACCINE (5 - Moderna series) COVID-19 VACCINE (5 - Moderna series) [facility] Start: 08-17-2022 [address] D[address] [facility] Comment on above: Postponed from 2019 (Postponed To Appropriate Date) Start: 08-16-2022 ADVANCE DIRECTIVE DISCUSSION ADVANCE DIRECTIVE DISCUSSION [facility] Start: 08-16-2022 DEPRESSION ASSESSMENT DEPRESSION ASSESSMENT [facility] Start: 06-21-2022 End: 08-21-2022 CBC panel - Blood by Automated count CBC Lab Routine Essential hypertension Encounter for long-term current use of medication Expected: 06/21/2022 (Approximate), Expires: 08/21/2022 [facility] Work Phone: Comment on above: Expected: 06/21/2022 (Approximate), Expi res: 08/21/2022 Start: 06-21-2022 End: 08-21-2022 Comprehensive metabolic 2000 panel - Serum or Plasma COMP METABOLIC PANEL Lab Routine Essential hypertension Encounter for long-term current use of medication Expected: 06/21/2022 (Approximate), Expires: 08/21/2022 [facility] Work Phone: Comment on above: Expected: 06/21/2022 (Approximate), Expi res: 08/21/2022 Start: 06-21-2022 End: 08-21-2022 Lipid 1996 panel - Serum or Plasma LIPID PANEL BASIC Lab Routine Essential hypertension Hypercholesteremia Expected: 06/21/2022 (Approximate), Expires: 08/21/2022 [facility] Work Phone: Comment on above: Expected: 06/21/2022 (Approximate), Expi res: 08/21/2022 Start: 05-26-2022 ANNUAL PCP TEAM CHRONIC DISEASE VISIT ANNUAL PCP TEAM CHRONIC DISEASE VISIT [facility] Start: 04-16-2022 Influenza vaccination INFLUENZA (#1) [facility] Start: 12-30-2021 Adult depression screening assessment DEPRESSION SCREENING [facility] Start: 12-30-2021 PNEUMOVAX AGE 65 AND OVER WITH 5YR LOOKBACK (#1) PNEUMOVAX AGE 65 AND OVER WITH 5YR LOOKBACK (#1) [facility] Comment on above: Postponed from 2019 (Declined at t his time) Start: 12-30-2021 SHINGRIX VACCINE (1 of 2) SHINGRIX VACCINE (1 of 2) [facility] Comment on above: Postponed from 2004 (Declined at t his time) Start: 11-22-2021 COVID-19 VACCINE (4 - Booster for Moderna series) COVID-19 VACCINE (4 - Booster for Moderna series) [facility] Start: 10-31-[address] [facility] Start: 08-16-2021 ADVANCE DIRECTIVE DISCUSSION ADVANCE DIRECTIVE DISCUSSION [facility] Start: 04-30-2021 COVID-19 VACCINE (3 - Booster for Moderna series) COVID-19 VACCINE (3 - Booster for Moderna series) [facility] Start: 04-26-2020 PNEUMOCOCCAL: 65+ (2 - PPSV23 if available, else PCV20) PNEUMOCOCCAL: 65+ (2 - PPSV23 if available, else PCV20) [facility] Start: 04-26-2020 PNEUMOCOCCAL: 65+ (2 - PPSV23 or PCV20) PNEUMOCOCCAL: 65+ (2 - PPSV23 or PCV20) [facility] Start: 2019 BONE DENSITY BONE DENSITY [facility] Start: 2019 PNEUMOVAX AGE 65 AND OVER WITH 5YR LOOKBACK (#1) PNEUMOVAX AGE 65 AND OVER WITH 5YR LOOKBACK (#1) [facility] Start: 2014 RSV Vaccine (1 - 1-dose 60+ series) RSV Vaccine (1 - 1-dose 60+ series) [facility] Start: 2004 SHINGRIX VACCINE (1 of 2) SHINGRIX VACCINE (1 of 2) [facility] Start: 1999 COLOGUARD (FIT-DNA) COLOGUARD (FIT-DNA) [facility] Start: [address]APHY [facility] Start: 1999 FECAL OCCULT BLOOD FECAL OCCULT BLOOD [facility] Start: 1999 Screening for malignant neoplasm of colon [facility] Start: [address] [facility] Start: 1994 Screening for malignant neoplasm of breast Mammogram [facility] Start: 1972 BP CONTROLLED (<130/80) BP CONTROLLED (<130/80) [facility] Start: 1972 Depression Screening Depression Screening [facility] Start: 1972 Diabetes mellitus screening Diabetes Screening [facility] Start: 1972 Hepatitis C screening Hepatitis C Screening [facility] Start: [address] [facility] Start: 1966 Depression Screening Depression Screening [facility] Start: 1954 Lipid panel Lipid Panel [facility] Start: 1954 Screening for malignant neoplasm of colon [facility] Bacteria identified in Urine by Culture BACTERIAL CULTURE, URINE Microbiology Routine Urinary frequency Ordered: 09/11/2024 [facility] Work Phone: Comment on above: Ordered: 09/11/2024 End: 03-17-2025 DBT Breast - bilateral screening NAVI SCREENING W KEVIN Radiology Routine Encounter for screening mammogram for breast cancer 1 Occurrences starting 02/16/2024 until 03/17/2025 [facility] Work Phone: Comment on above: 1 Occurrences starting 02/16/2024 until 03/17/2025 End: 01-17-2024 DXA-AXIAL SKELETON DXA-AXIAL SKELETON Radiology Routine Screening for osteoporosis Asymptomatic menopause 1 Occurrences starting 12/18/2022 until 01/17/2024 [facility] Work Phone: Comment on above: 1 Occurrences starting 12/18/2022 until 01/17/2024 End: 01-17-2024 NAVI SCREENING NAVI SCREENING Radiology Routine Encounter for screening mammogram for breast cancer 1 Occurrences starting 12/18/2022 until 01/17/2024 [facility] Work Phone: Comment on above: 1 Occurrences starting 12/18/2022 until 01/17/2024 End: 11-04-2025 MR Brain WO contrast MRI BRAIN W QUANT WO IVCON Radiology Routine Cognitive impairment, mild, so stated 1 Occurrences starting 10/05/2024 until 11/04/2025 [facility] Work Phone: Comment on above: 1 Occurrences starting 10/05/2024 until 11/04/2025 End: 01-26-2026 MR Lumbar spine WO contrast MRI LUMBAR SPINE WO IVCON Radiology STAT Degeneration of intervertebral disc of lumbar region with discogenic back pain S/P lumbar spine operation Chronic midline low back pain without sciatica Acute midline low back pain without sciatica 1 Occurrences starting 12/27/2024 until 01/26/2026 [facility] Work Phone: Comment on above: 1 Occurrences starting 12/27/2024 until 01/26/2026 End: 11-04-2025 MR Unspecified body region 3D post processing MRI 3D BRAIN QUANT Radiology Routine Cognitive impairment, mild, so stated 1 Occurrences starting 10/05/2024 until 11/04/2025 [facility] Comment on above: 1 Occurrences starting 10/05/2024 until 11/04/2025 Pneumococcal vaccination PNEUMOCOCCAL VACCINE (PREVNAR 20) Immunization/Injection Routine Encounter for immunization 1 Occurrences starting 06/23/2022 [facility] Work Phone: Comment on above: 1 Occurrences starting 06/23/2022 End: 02-20-2025 Screening colonoscopy COLONOSCOPY SCREENING Endoscopy Routine Screening for colon cancer 1 Occurrences starting 02/21/2024 until 02/20/2025 [facility] Comment on above: 1 Occurrences starting 02/21/2024 until 02/20/2025 End: 01-02-2023 Screening mammography bi 2-view breast inc cad NAVI SCREENING Radiology Routine Encounter for screening mammogram for breast cancer 1 Occurrences starting 12/03/2021 until 01/02/2023 [facility] Work Phone: Comment on above: 1 Occurrences starting 12/03/2021 until 01/02/2023 End: 07-23-2023 SPIROMETRY - BASELINE AND POST DILATOR SPIROMETRY - BASELINE AND POST DILATOR PFT Routine Asthma 1 Occurrences starting 06/23/2022 until 07/23/2023 [facility] Work Phone: Comment on above: 1 Occurrences starting 06/23/2022 until 07/23/2023 End: 10-21-2025 US Kidney - bilateral and Urinary bladder US KIDNEY/BLADDER Radiology Routine Urinary tract infection without hematuria, site unspecified Right-sided low back pain without sciatica, unspecified chronicity 1 Occurrences starting 09/21/2024 until 10/21/2025 [facility] Work Phone: Comment on above: 1 Occurrences starting 09/21/2024 until 10/21/2025 US Kidney - bilatera l and Urinary bladder US KIDNEY/BLADDER Radiology Routine Urinary tract infection without hematuria, site unspecified Right-sided low back pain without sciatica, unspecified chronicity 09/22/2024 2:11 PM EST [facility] Work Phone: End: 01-13-2025 XR Knee - left 4 Views XR KNEE GENERAL 4V AP BOTH/PA BOTH/LAT/MERC LEFT Radiology Routine Left knee pain, unspecified chronicity 1 Occurrences starting 12/15/2023 until 01/13/2025 [facility] Work Phone: Comment on above: 1 Occurrences starting 12/15/2023 until 01/13/2025 XR Knee - left 4 Views XR KNEE G ENERAL 4V AP BOTH/PA BOTH/LAT/MERC LEFT Radiology Routine Left knee pain, unspecified chronicity 12/17/2023 11:12 AM EDT [facility] Work Phone: [facility] Immunizations Immunization Date Immunization Notes Care Provider Fa henry 09-25-2024 COVID-19 vaccine, ag e 12+ yr (PFIZER-BIONTECH COMIRNATY) Ruma Westfall MD Work Phone: [facility] 02-15-2024 COVID-19 vaccine, ag e 12+ yr, season (PFIZER-BIONTECH) Cee Christianson MD Work Phone: [facility] 02-15-2024 COVID-19 vaccine, ag e 12+ yr, bivalent (PFIZER-BIONTECH) Cee Christianson MD Work Phone: [facility] 02-15-2024 respiratory syncytia l virus (RSV) vaccine, adjuvanted (AREXVY) Cee Christianson MD Work Phone: [facility] 09-14-2023 COVID-19 vaccine, ag e 12+ yr, season (PFIZER-BIONTECH) Cee Christianson MD Work Phone: [facility] 04-13-2023 influenza (aIIV4) vaccine, age 65+ yr, quadrivalent, PF (FLUAD QUAD) Cee Christianson MD Work Phone: [facility] 04-13-2023 influenza, injectabl e, quadrivalent, contains preservative Cee Christianson MD Work Phone: [facility] Work Phone: 04-13-2023 influenza virus vaccine, unspecified formulation Cee Christianson MD Work Phone: [facility] 07-23-2022 pneumococcal (PCV20) vaccine, 20 valent (PREVNAR 20) Zakia Sneed APRN.CNS Work Phone: [facility] Work Phone: 06-23-2022 COVID-19 booster vaccine, age 12+ yr, bivalent (PFIZER-BIONTPlaceSpeak) Zakia Sneed APRN.OFFENDER EMPLOYMENT SPECIALIST Work Phone: [facility] Work Phone: 06-23-2022 influenza, high-dose , quadrivalent vaccine (FLUZONE HIGH DOSE QUADRIVALENT) Zakia Sneed APRN.OFFENDER EMPLOYMENT SPECIALIST Work Phone: [facility] Work Phone: 07-24-2021 COVID-19 original vaccine, full dose, monovalent (MODERNA) Thuy Stewart JOURNEYMAN ELECTRICIAN PV INSTALLER.ADJUNCT PROFESSOR Work Phone: [facility] Work Phone: 05-01-2021 influenza, high-dose , quadrivalent vaccine (FLUZONE HIGH DOSE QUADRIVALENT) Zakia Sneed JOURNEYMAN ELECTRICIAN PV INSTALLER.OFFENDER EMPLOYMENT SPECIALIST Work Phone: [facility] Work Phone: 11-28-2020 COVID-19 vaccine, fu ll dose (MODERNA) Cee Christianson MD Work Phone: [facility] 10-31-2020 COVID-19 vaccine, fu ll dose (MODERNA) Cee Christianson MD Work Phone: [facility] 05-18-2020 influenza, high dose seasonal, preservative-free Cee Christianson MD Work Phone: [facility] Work Phone: 04-26-2019 influenza, injectabl e, quadrivalent, preservative free Cee Christianson MD Work Phone: [facility] 04-26-2019 pneumococcal conjuga te vaccine, 13 valent Cee Christianson MD Work Phone: [facility] 04-23-2018 influenza, seasonal, injectable Cee Christianson MD Work Phone: [facility] 05-22-2017 influenza, injectabl e, quadrivalent, contains preservative Cee Christianson MD Work Phone: [facility] Work Phone: 05-22-2015 influenza, seasonal, injectable Cee Christianson MD Work Phone: [facility] 12-18-2014 tetanus toxoid, redu grace diphtheria toxoid, and acellular pertussis vaccine, adsorbed Cee Christianson MD Work Phone: [facility] 05-07-2014 influenza, seasonal, injectable Cee Christianson MD Work Phone: [facility] 06-14-2006 influenza virus vaccine, unspecified formulation Cee Christianson MD Work Phone: [facility] Work Phone: 05-31-2006 tuberculin skin test ; purified protein derivative solution, intradermal Cee Christianson MD Work Phone: [facility] Payers Date Payer Category Payer Medicare HUMANA MEDICARE HU[employer]NA MEDICARE PPO [id number] 2021-Present [phone] [place] [address] PPO [id number] 2021 Medicare HUMANA MEDICARE HUMANA MEDICARE PPO [id number] 2021-Present [phone] [place] [address] PPO [id number] 2021 Medicare (Managed Care) HUMANA EDICARE [id number] 2018 Medicare HMO HUMANA MEDICARE Member Subscriber Plan / Payer (Effective 2018-Present) Name: Susan Calderon Relation to Subscriber: Self Name: Susan Calderon Payer ID: [id number] (NAIC) Type: Medicare HMO Address: [place] [id number] 2016 Medicare [id number] Social History Date Type Detail Facility Start: 06-21-2020 End: 02-19-2023 Tobacco smoking status NHIS Occasional tobacco smoker [facility] Start: 06-22-1989 End: 07-25-2022 History of tobacco use Smoker [facility] Start: 06-21-2020 End: 12-18-2022 Cigarettes smoked current (pack per day) - Reported 0.5 [facility] Work Phone: Start: 06-21-2020 End: 05-24-2024 Tobacco use and exposure Smokeless tobacco non-user [facility] Start: 05-26-2021 End: 10-05-2024 Alcohol intake Current drinker of alcohol (finding) [facility] Start: 06-21-2020 History SDOH Alcohol Frequency 4 [facility] Start: 06-21-2020 History SDOH Alcohol Std Drinks 2 [facility] Start: 06-21-2020 History SDOH Alcohol Binge 3 [facility] Start: 06-21-2020 History SDOH Social Connections Get Together [address] [facility] Start: 05-26-2021 Tobacco Comment Down to 2 to 5 cig a day (05/2021); from half PPD--working on quitting; stress triggers; 06/19/19--on patch and has quit smoking. Sometimes half PPD (12/30/20)- [facility] Start: 1955 Sex Assigned At Not on file [facility] Start: 12-19-2021 End: 07-29-2022 Tobacco Comment Down to 2 to 5 cig a day (05/2021); from half PPD--working on quitting; stress triggers; 06/19/19--on patch and has quit smoking. Sometimes half PPD (12/30/20 and ) [facility] Start: 12-22-2021 End: 06-23-2022 Exposure to SARS-CoV-2 (event) Not sure [facility] Start: 06-22-1989 End: 07-25-2022 History of tobacco use Cigarette Smoker [facility] Work Phone: Start: 07-29-2022 End: 05-24-2024 Tobacco smoking status NHIS Ex-smoker [facility] Work Phone: Start: 12-18-2022 End: 02-19-[address] [facility] Work Phone: Adult Depression Screening Assessment 0 [facility] Work Phone: Start: 02-19-2023 Tobacco Comment Cigarette every 2-3 days( 02/19/23 )February 19, 2023 Practically quit smoking. Just one the other day and made lightheaded. [facility] Do you belong to any clubs or organizations such as pentecostalism groups, unions, fraternal or athletic groups, or school groups? No [facility] Are you now , , , , never or living with a partner? [facility] How often to you hav e a drink containing alcohol? 2-[address] [facility] How many standard dr inks containing alcohol do you have on a typical day? [address] [facility] How often do you hav e 6 or more drinks on 1 occasion? Monthly [facility] How hard is it for y ou to pay for the very basics like food, housing, medical care, and heating Not very hard [facility] Do you feel stress - tense, restless, nervous, or anxious, or unable to sleep at night because your mind is troubled all the time - these days [OSQ] To some extent [facility] (I/We) worried reinaldo er (my/our) food would run out before (I/we) got money to buy more. Never true [facility] How often do you hav e 6 or more drinks on 1 occasion? Monthly [facility] Start: 03-16-2022 Sex Female (finding) [facility] Functional Status Date Assessment Result Facility 12-18-2014 Are you deaf, or do you have serious difficulty hearing No 12/18/2014 8:39 AM Verna Kwon LPN No [facility] 12-18-2014 Are you blind, or do you have serious difficulty seeing, even when wearing glasses No 12/18/2014 8:39 AM Verna Kwon LPN No [facility] 12-18-2014 Do you have serious difficulty walking or climbing stairs No 12/18/2014 8:39 AM Verna Kwon LPN No [facility] 12-18-2014 Do you have difficul ty dressing or bathing No 12/18/2014 8:39 AM Verna Kwon LPN [facility] 12-18-2014 Because of a physica l, mental, or emotional condition, do you have difficulty doing errands alone such as visiting a physician's office or shopping No 12/18/2014 8:39 AM Verna Kwon LPN [facility] Mental Status Date Assessment Result Facility 12-18-2014 Because of a physica l, mental, or emotional condition, do you have serious difficulty concentrating, remembering, or making decisions No 12/18/2014 8:39 AM Verna Kwon LPN [facility] Clinical Notes 04-17-2005 to 02-12-2025 Smith Caro, PT - 02/12/2025 11:13 AM Smith Alvarado, PT - 02/08/2025 10:53 AM Smith Alvarado, PT - 02/05/2025 9:18 AM Smith Alvarado PT - 01/25/2025 10:50 AM EDTPatient Instructions Note Date & Type Note Facility 02-12-2025 Note HNO ID: [id number] Author: SMITH CARO PT Service: ? Author Type: Physical Therapist Type: Progress Notes Filed: 02/12/2025 11:24 Note Text: Episode Visit Count: 6 Therapist That Will Accept/Oversee The Plan Of Care: Smith Caro PT Start of Care Date: 01/04/25 Onset Date: 01/04/23 Plan of Care Certification Date: 01/04/25 Next Certification Due Date: 02/08/25 Patient Identified by Name and Date of : Yes REHABILITATION AND SPORTS THERAPY PHYSICAL THERAPY DISCONTINUANCE OF CARE PLAN OF CARE UPDATE: Assessment: Susan Calderon is discontinued from Physical Therapy services due to maximal benefit.. Patient was seen for 6 visits from Start of Care Date: 01/04/25 to 02/12/2025 and treatment included: Therapeutic exercise. Goals for Episode of Care: established 01/04/25 Independent in home exercises. Patient will decrease pain rating by 2 points to meet minimal clinical important difference for numeric pain rating scale. Restore pain-free lumbar ROM to min limitation or greater to allow for ease of picking up items and dressing Stand / Walk for 30 minutes without pain/symptoms. Pt will demo abdominal and extensor strength of the core to 5/5 for improved tolerance to ADL's and prolonged standing/walking. Patient Goals: Get to surgery SUBJECTIVE: Therapy may help a little. Getting up and sitting down is straining the back. Has not walked longer distances. Feeling more symptoms in the legs. Patient Goals: Get to surgery Functional Limitations: walking, standing Prior Level of Function: Independent without limitations Intake Information: Prescription present Previous Treatment: Muscle relaxer Falls Interview: No positive findings with falls interview Pain: Pain Pain Level: 4 Pain Location: Low Back/Lumbar Spine- Midline, Leg - Right, Leg - Left PROMIS Scales 01/10/2025 11/30/2024 11/01/2024 Higher is Better Phys Func - T Score 37 (moderate dysfunction) 34 (moderate dysfunction) Phys Func - Percentile 10 5 Self-Eff Symptom - T Score 35 (Low) 26 (Very Low) 41 (Average) Self-Eff Symptom - Percentile 7 1 18 Mobility - T Score 28 (severe dysfunction) Mobility - Percentile 1 Proxy-reported T-scores: mean of general population = 50. 5 points is clinically meaningfully difference Percentiles provide an indication of how the patient's score ranks in relation to the general population. Higher percentile rankings indicate better function/quality of life. 50th percentile is the average of the general population and indicates half of respondents had a worse score. OBJECTIVE MEASURES WITH LEVEL OF FUNCTION: Lumbar Spine AROM Lumbar Flexion: Minimal limitation, Increased pain Lumbar Extension: Major limitation Lumbar R Side-Bend: Moderate limitation Lumbar L Side-Bend: Moderate limitation, Increased pain Lumbar R Rotation: Moderate limitation Lumbar L Rotation: Moderate limitation LE Strength R LE Strength: Grossly 34-/5 L LE Strength: Grossly 4-/5 Gait Gait Observation: Pt is at times unsteady on her feet. Slow raymundo with slight lumbar flexion noted. TREATMENT: Therapeutic Exercise: 1: All objective measures taken 2: TA set seated + alt october Skilled Intervention: Patient was educated in proper exercise technique and purpose for exercises. Correct performance of therapeutic exercises was facilitated with verbal cuing. Billing Therapeutic Exercise Treatment Minutes: 11 Skilled Treatment Time Minutes (timed and untimed codes): 11 Total Session Time (minutes): 11 Session Start Time : 1113 Session Stop Time : 1124 Smith Caro PT [facility] 02-12-2025 History of Present illness Narrative Images from the original note were not included. Episode Visit Count: 6 Therapist That Will Accept/Oversee The Plan Of Care: Smith Caro PT Start of Care Date: 01/04/25 Onset Date: 01/04/23 Plan of Care Certification Date: 01/04/25 Next Certification Due Date: 02/08/25 Patient Identified by Name and Date of : Yes REHABILITATION AND SPORTS THERAPY PHYSICAL THERAPY DISCONTINUANCE OF CARE PLAN OF CARE UPDATE: Assessment: Susan Calderon is discontinued from Physical Therapy services due to maximal benefit.. Patient was seen for 6 visits from Start of Care Date: 01/04/25 to 02/12/2025 and treatment included: Therapeutic exercise. Goals for Episode of Care: established 01/04/25 Independent in home exercises. Patient will decrease pain rating by 2 points to meet minimal clinical important difference for numeric pain rating scale. Restore pain-free lumbar ROM to min limitation or greater to allow for ease of picking up items and dressing Stand / Walk for 30 minutes without pain/symptoms. Pt will demo abdominal and extensor strength of the core to 5/5 for improved tolerance to ADL's and prolonged standing/walking. Patient Goals: Get to surgery SUBJECTIVE: Therapy may help a little. Getting up and sitting down is straining the back. Has not walked longer distances. Feeling more symptoms in the legs. Patient Goals: Get to surgery Functional Limitations: walking, standing Prior Level of Function: Independent without limitations Intake Information: Prescription present Previous Treatment: Muscle relaxer Falls Interview: No positive findings with falls interview Pain: Pain Pain Level: 4 Pain Location: Low Back/Lumbar Spine- Midline, Leg - Right, Leg - Left PROMIS Scales 01/10/2025 11/30/2024 11/01/2024 Higher is Better Phys Func - T Score 37 (moderate dysfunction) 34 (moderate dysfunction) Phys Func - Percentile 10 5 Self-Eff Symptom - T Score 35 (Low) 26 (Very Low) 41 (Average) Self-Eff Symptom - Percentile 7 1 18 Mobility - T Score 28 (severe dysfunction) Mobility - Percentile 1 Proxy-reported T-scores: mean of general population = 50. 5 points is clinically meaningfully difference Percentiles provide an indication of how the patient's score ranks in relation to the general population. Higher percentile rankings indicate better function/quality of life. 50th percentile is the average of the general population and indicates half of respondents had a worse score. OBJECTIVE MEASURES WITH LEVEL OF FUNCTION: Lumbar Spine AROM Lumbar Flexion: Minimal limitation, Increased pain Lumbar Extension: Major limitation Lumbar R Side-Bend: Moderate limitation Lumbar L Side-Bend: Moderate limitation, Increased pain Lumbar R Rotation: Moderate limitation Lumbar L Rotation: Moderate limitation LE Strength R LE Strength: Grossly 34-/5 L LE Strength: Grossly 4-/5 Gait Gait Observation: Pt is at times unsteady on her feet. Slow raymundo with slight lumbar flexion noted. TREATMENT: Therapeutic Exercise: 1: All objective measures taken 2: TA set seated + alt october Skilled Intervention: Patient was educated in proper exercise technique and purpose for exercises. Correct performance of therapeutic exercises was facilitated with verbal cuing. Billing Therapeutic Exercise Treatment Minutes: 11 Skilled Treatment Time Minutes (timed and untimed codes): 11 Total Session Time (minutes): 11 Session Start Time : 1113 Session Stop Time : 1124 Smith Caro PT documented in this encounter [facility] 02-08-2025 Note HNO ID: [id number] Author: SMITH CARO PT Service: ? Author Type: Physical Therapist Type: Progress Notes Filed: 02/08/2025 11:31 Note Text: Episode Visit Count: 5 Therapist That Will Accept/Oversee The Plan Of Care: Smith Caro PT Start of Care Date: 01/04/25 Onset Date: 01/04/23 Plan of Care Certification Date: 01/04/25 Next Certification Due Date: 02/08/25 Patient Identified by Name and Date of : Yes REHABILITATION AND SPORTS THERAPY PHYSICAL THERAPY TREATMENT NOTE ASSESSMENT: Susan Calderon tolerated the session with expected muscle soreness. She demonstrated good form with all therapeutic exercises. The patient will continue to benefit from ongoing skilled physical therapy to progress toward set goals. PLAN FOR NEXT VISIT: Discharged from lack of progress SUBJECTIVE: The back is feeling about the same. The increased humidity makes her back feel worse. Pain: Pain Pain Level: 5 Pain Location: Low Back/Lumbar Spine- Midline, Leg - Right, Leg - Left OBJECTIVE MEASURES WITH LEVEL OF FUNCTION: TREATMENT: Therapeutic Exercise: 1: Seated Lumbar flexion x 10 2: Seated TA bracing + alt march x 15 3: Seated TA bracing + alt arm elevation x 15 4: Seated core crunch red kittitian ball 2 x 10 5: Seated core bracing + No moneys lvl 5 band 2 x 10 6: STS x 10 7: Seated Hs stretch 2 x 30 sec (unable to complete with the LLE due to pain in the thigh) Skilled Intervention: Patient was educated in proper exercise technique and purpose for exercises. Correct performance of therapeutic exercises was facilitated with verbal and visual cuing. Billing Therapeutic Exercise Treatment Minutes: 41 Skilled Treatment Time Minutes (timed and untimed codes): 41 Total Session Time (minutes): 41 Session Start Time : 1050 Session Stop Time : 1131 Smith Caro PT [facility] 02-08-2025 History of Present illness Narrative Episode Visit Count: 5 Therapist That Will Accept/Oversee The Plan Of Care: Smith Caro PT Start of Care Date: 01/04/25 Onset Date: 01/04/23 Plan of Care Certification Date: 01/04/25 Next Certification Due Date: 02/08/25 Patient Identified by Name and Date of : Yes REHABILITATION AND SPORTS THERAPY PHYSICAL THERAPY TREATMENT NOTE ASSESSMENT: Susan Calderon tolerated the session with expected muscle soreness. She demonstrated good form with all therapeutic exercises. The patient will continue to benefit from ongoing skilled physical therapy to progress toward set goals. PLAN FOR NEXT VISIT: Discharged from lack of progress SUBJECTIVE: The back is feeling about the same. The increased humidity makes her back feel worse. Pain: Pain Pain Level: 5 Pain Location: Low Back/Lumbar Spine- Midline, Leg - Right, Leg - Left OBJECTIVE MEASURES WITH LEVEL OF FUNCTION: TREATMENT: Therapeutic Exercise: 1: Seated Lumbar flexion x 10 2: Seated TA bracing + alt march x 15 3: Seated TA bracing + alt arm elevation x 15 4: Seated core crunch red kittitian ball 2 x 10 5: Seated core bracing + No moneys lvl 5 band 2 x 10 6: STS x 10 7: Seated Hs stretch 2 x 30 sec (unable to complete with the LLE due to pain in the thigh) Skilled Intervention: Patient was educated in proper exercise technique and purpose for exercises. Correct performance of therapeutic exercises was facilitated with verbal and visual cuing. Billing Therapeutic Exercise Treatment Minutes: 41 Skilled Treatment Time Minutes (timed and untimed codes): 41 Total Session Time (minutes): 41 Session Start Time : 1050 Session Stop Time : 1131 Smith Caro PT documented in this encounter [facility] 02-05-2025 Note HNO ID: [id number] Author: SMITH CARO PT Service: ? Author Type: Physical Therapist Type: Progress Notes Filed: 02/05/2025 09:58 Note Text: Episode Visit Count: 4 Therapist That Will Accept/Oversee The Plan Of Care: Smith Caro PT Start of Care Date: 01/04/25 Onset Date: 01/04/23 Plan of Care Certification Date: 01/04/25 Next Certification Due Date: 02/08/25 Patient Identified by Name and Date of : Yes REHABILITATION AND SPORTS THERAPY PHYSICAL THERAPY TREATMENT NOTE ASSESSMENT: Susan Calderon tolerated the session with expected muscle soreness. She demonstrated good form with all therapeutic exercises. The patient will continue to benefit from ongoing skilled physical therapy to progress toward set goals. PLAN FOR NEXT VISIT: Continue with core strengthening SUBJECTIVE: Feeling it in the lower back. Has the back brace on which does help some. Has not done the exercises over the past week. Pain: Pain Pain Level: 5 Pain Location: Low Back/Lumbar Spine- Midline, Leg - Right, Leg - Left OBJECTIVE MEASURES WITH LEVEL OF FUNCTION: TREATMENT: Therapeutic Exercise: 1: Seated Lumbar flexion x 10 2: Seated TA bracing + alt march x 15 3: Seated TA bracing + alt arm elevation x 15 4: Seated core crunch red kittitian ball 2 x 10 5: STS x 10 Skilled Intervention: Patient was educated in proper exercise technique and purpose for exercises. Correct performance of therapeutic exercises was facilitated with verbal cuing. Billing Therapeutic Exercise Treatment Minutes: 40 Skilled Treatment Time Minutes (timed and untimed codes): 40 Total Session Time (minutes): 40 Session Start Time : 917 Session Stop Time : 957 Smith Caro PT [facility] 02-05-2025 History of Present illness Narrative Episode Visit Count: 4 Therapist That Will Accept/Oversee The Plan Of Care: Smith Caro PT Start of Care Date: 01/04/25 Onset Date: 01/04/23 Plan of Care Certification Date: 01/04/25 Next Certification Due Date: 02/08/25 Patient Identified by Name and Date of : Yes REHABILITATION AND SPORTS THERAPY PHYSICAL THERAPY TREATMENT NOTE ASSESSMENT: Susan Calderon tolerated the session with expected muscle soreness. She demonstrated good form with all therapeutic exercises. The patient will continue to benefit from ongoing skilled physical therapy to progress toward set goals. PLAN FOR NEXT VISIT: Continue with core strengthening SUBJECTIVE: Feeling it in the lower back. Has the back brace on which does help some. Has not done the exercises over the past week. Pain: Pain Pain Level: 5 Pain Location: Low Back/Lumbar Spine- Midline, Leg - Right, Leg - Left OBJECTIVE MEASURES WITH LEVEL OF FUNCTION: TREATMENT: Therapeutic Exercise: 1: Seated Lumbar flexion x 10 2: Seated TA bracing + alt march x 15 3: Seated TA bracing + alt arm elevation x 15 4: Seated core crunch red kittitian ball 2 x 10 5: STS x 10 Skilled Intervention: Patient was educated in proper exercise technique and purpose for exercises. Correct performance of therapeutic exercises was facilitated with verbal cuing. Billing Therapeutic Exercise Treatment Minutes: 40 Skilled Treatment Time Minutes (timed and untimed codes): 40 Total Session Time (minutes): 40 Session Start Time : 917 Session Stop Time : 957 Smith Caro PT documented in this encounter [facility] 01-25-2025 Note HNO ID: [id number] Author: SMITH CARO PT Service: ? Author Type: Physical Therapist Type: Progress Notes Filed: 01/25/2025 11:27 Note Text: Episode Visit Count: 3 Therapist That Will Accept/Oversee The Plan Of Care: Smith Caro PT Start of Care Date: 01/04/25 Onset Date: 01/04/23 Plan of Care Certification Date: 01/04/25 Next Certification Due Date: 02/08/25 Patient Identified by Name and Date of : Yes REHABILITATION AND SPORTS THERAPY PHYSICAL THERAPY TREATMENT NOTE ASSESSMENT: Susan Calderon tolerated the session with fatigue and expected muscle soreness. She demonstrated good tolerance to seated exercises. The patient will continue to benefit from ongoing skilled physical therapy to progress toward set goals. PLAN FOR NEXT VISIT: Core strengthening in a seated position SUBJECTIVE: The back is hurting right now. The upper back is starting to hurt. She had an injection 2-3 weeks ago which has not helped yet. Pain: Pain Pain Location: Low Back/Lumbar Spine- Midline, Leg - Right, Leg - Left Post Treatment Pain Post Treatment Pain Level: Better OBJECTIVE MEASURES WITH LEVEL OF FUNCTION: Lumbar flexion abolishes B leg pain in sitting TREATMENT: Therapeutic Exercise: 1: Seated TA set + alt march x 15 2: Seated TA st + alt UE and LE flexion 2 x 10 3: Seated core crunch iso red kittitian ball 3 x 10 4: Seated lumbar flexion stretch 2 x 10 5: Seated 7# [id number] CW/CCW x 10 Skilled Intervention: Patient was educated in proper exercise technique and purpose for exercises. Provided written instruction for home exercise program to facilitate proper performance and compliance. Billing Therapeutic Exercise Treatment Minutes: 38 Skilled Treatment Time Minutes (timed and untimed codes): 38 Total Session Time (minutes): 38 Session Start Time : 1050 Session Stop Time : 1128 Smith Caro PT [facility] 01-25-2025 History of Present illness Narrative Episode Visit Count: 3 Therapist That Will Accept/Oversee The Plan Of Care: Smith Caro PT Start of Care Date: 01/04/25 Onset Date: 01/04/23 Plan of Care Certification Date: 01/04/25 Next Certification Due Date: 02/08/25 Patient Identified by Name and Date of : Yes REHABILITATION AND SPORTS THERAPY PHYSICAL THERAPY TREATMENT NOTE ASSESSMENT: Susan Calderon tolerated the session with fatigue and expected muscle soreness. She demonstrated good tolerance to seated exercises. The patient will continue to benefit from ongoing skilled physical therapy to progress toward set goals. PLAN FOR NEXT VISIT: Core strengthening in a seated position SUBJECTIVE: The back is hurting right now. The upper back is starting to hurt. She had an injection 2-3 weeks ago which has not helped yet. Pain: Pain Pain Location: Low Back/Lumbar Spine- Midline, Leg - Right, Leg - Left Post Treatment Pain Post Treatment Pain Level: Better OBJECTIVE MEASURES WITH LEVEL OF FUNCTION: Lumbar flexion abolishes B leg pain in sitting TREATMENT: Therapeutic Exercise: 1: Seated TA set + alt march x 15 2: Seated TA st + alt UE and LE flexion 2 x 10 3: Seated core crunch iso red kittitian ball 3 x 10 4: Seated lumbar flexion stretch 2 x 10 5: Seated 7# [id number] CW/CCW x 10 Skilled Intervention: Patient was educated in proper exercise technique and purpose for exercises. Provided written instruction for home exercise program to facilitate proper performance and compliance. Billing Therapeutic Exercise Treatment Minutes: 38 Skilled Treatment Time Minutes (timed and untimed codes): 38 Total Session Time (minutes): 38 Session Start Time : 1050 Session Stop Time : 1128 Smith Caro PT documented in this encounter [facility] 01-16-2025 Note HNO ID: [id number] Author: ?, ?, ? Service: ? Author Type: ? Type: Progress Notes Filed: 01/16/2025 12:46 Note Text: POPULATION HEALTH NAVIGATION OUTREACH Action/FYI Patient outreach for HCC gaps; AWV. Sent patient mychart to close gaps. Updated appointment notes. Reason for Outreach Care Gap/HCC or Scheduling Wellness Visits Care Gaps due: Medicare Annual Wellness Visit Patient Contacted: Unable or unnecessary to reach patient: MyChart message sent Updated appointment notes Navigation Signature: Deanna Coffman Pss January 16, 2025 12:44 PM [facility] 01-16-2025 History of Present illness Narrative POPULATION HEALTH NAVIGATION OUTREACH Action/FYI Patient outreach for HCC gaps; AWV. Sent patient mychart to close gaps. Updated appointment notes. Reason for Outreach Care Gap/HCC or Scheduling Wellness Visits Care Gaps due: Medicare Annual Wellness Visit Patient Contacted: Unable or unnecessary to reach patient: MyChart message sent Updated appointment notes Navigation Signature: Deanna Gorman January 16, 2025 12:44 PM documented in this encounter [facility] 01-16-2025 Note Patient Outreach (NE TNAV) SUSAN CALDERON ([id number]) 1955 F TXT Date Time Provider Department 01/16/25 [facility] During your visit today, we recorded the following information about you: Deanna Larsen 01/16/2025 12:46 PM Signed POPULATION HEALTH NAVIGATION OUTREACH Action/FYI Patient outreach for HCC gaps; AWV. Sent patient mychart to close gaps. Updated appointment notes. Reason for Outreach Care Gap/HCC or Scheduling Wellness Visits Care Gaps due: Medicare Annual Wellness Visit Patient Contacted: Unable or unnecessary to reach patient: MyChart message sent Updated appointment notes Navigation Signature: Deanna Gorman January 16, 2025 12:44 PM Allergies As of Date: 01/16/2025 Noted Allergy Reaction CEPHALOSPORINS 02/27/2019 12 - Shortness of Breath PENICILLINS 04/17/2005 10 - Anaphylaxis 12 - Shortness of Breath Comments: rash DOXYCYCLINE 02/27/2019 14 - Other: See Comments Comments: Teeth discoloration ENTEX PSE (PSEUDOEPHEDRINE-GUAIFE*04/17/2005 5 - Intolerance Comments: insomnia,jittery LEVAQUIN (LEVOFLOXACIN) 04/17/2005 14 - Other: See Comments Comments: muscle pain, heel pain (plantar side) RELAFEN (NABUMETONE) 04/17/2005 7 - Swelling Date Reviewed: 11/29/2024 Reviewed by: Suzanne Dodd LPN - Fully Assessed Reason for Visit: Population Health Navigation Outreach [3910] Cmt: [employer] Frank Lama Prescriptions as of 01/16/2025 - donepezil (ARICEPT) 10 mg tablet Take 1 tablet by mouth daily after breakfast. - cyclobenzaprine (FLEXERIL) 5 mg tablet Take 1-2 tablets by mouth three times a day as needed (cramping and muscle spasm). - lisinopril (ZESTRIL) 40 mg tablet Take 1 tablet by mouth once daily. DOSE CHANGE - TAKE ONE DAILY - POTASSIUM ORAL Take 99 mg by mouth once daily. - JKOGXFLJ-NUIBDKPFIRYDID-RSF C ORAL Take by mouth once daily. - atenolol (TENORMIN) 25 mg tablet Take 1 tablet by mouth once daily. - gabapentin (NEURONTIN) 400 mg capsule Take 1 capsule by mouth three times a day for 180 days. - atorvastatin (LIPITOR) 10 mg tablet Take 1 tablet by mouth daily at bedtime. - montelukast (SINGULAIR) 10 mg tablet Take 1 tablet by mouth daily at bedtime. - ubidecarenone Q-10 (CO Q-10) 10 mg cap Take by mouth two times a day. - jolwnlvi-knfoch-wgbqqbrv acid (COLLAGEN 1500 PLUS C) 500 mg-800 mcg- 50 mg cap Take by mouth. - omega-3 DHA-EPA (FISH OIL) 1,200 (144-216) mg capsule Take 1 capsule by mouth daily with breakfast. - D3/red wine/resveratrol/malt (SUPER-D3+ ORAL) Take 1 Each by mouth once daily. - magnesium oxide 400 mg magnesium tab Take 2 each by mouth once daily. 1000 mg daily - niacin (NIACIN) 500 mg tablet Take 500 mg by mouth daily with breakfast. - aspirin 81 mg chewable tablet Take 81 mg by mouth once daily. - calcium carbonate/vitamin D3 (CALCIUM WITH VITAMIN D ORAL) Take by mouth. 1200 with 1000 of D - OTC NUTRITIONAL SUPPLEMENT Take by mouth once daily. Prevagen - glucosamine/chondroitin/C/Juice (GLUCOSAMINE-CHONDROITIN COMPLX ORAL) Take by mouth once daily. - VITAMIN E ORAL Take 1 capsule by mouth once daily. - vitamin B complex (SUPER B COMPLEX ORAL) Take 1 tablet by mouth once daily. - fluticasone (FLONASE) 50 mcg/actuation nasal spray SPRAY 2 SPRAYS INTO EACH NOSTRIL ONCE DAILY - RINSE MOUTH AFTER USE - fluticasone-salmeterol (ADVAIR DISKUS) 250-50 mcg/dose inhaler Inhale 1 Puff as instructed twice daily. - albuterol HFA (PROVENTIL HFA) 90 mcg/actuation inhaler Inhale 2 Puffs as instructed every 4 hours as needed for wheezing/shortness of breath. Problem List As Of Date 01/16/2025 Noted Resolved Depressive disorder, not elsewhere classified [*04/17/2005 01/26/2021 Primary hypertension [I10] 04/17/2005 ANXIETY STATE NOS [F41.1] 04/18/2005 GENERALIZED ANXIETY DIS [F41.1] CARPAL TUNNEL SYNDROME [G56.00] GENERAL OSTEOARTHROSIS [M15.9] ESOPHAGEAL REFLUX [K21.9] ENLARGEMENT LYMPH NODES [R59.9] 05/31/2006 Asthma [J45.909] 06/14/2006 Degeneration of lumbar intervertebral disc [M51* Dysmetabolic syndrome [E88.810] 07/31/2011 Pruritus--back [L29.9] 02/19/2012 Candidal intertrigo [B37.2] 02/19/2012 Hypercholesteremia [E78.00] Small bowel obstruction (HCC) [K56.609] 07/30/2017 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 CLEMENTE Lama as requested. [phone] [facility] 01-10-2025 Telephone encounter Note Referral Demographics Office Notes Faxed to [facility] [place] as requested. [phone] [facility] 01-10-2025 Miscellaneous Notes Referral Demographics Office Notes Faxed to [facility] [place] as requested. [phone] Addended by: JULIETA DELGADO. on: 01/09/2025 09:23 AM Modules accepted: Orders Placed referral to PT. Please fax to appropriate location. Thanks. Smith from [facility] in [place] called in to report patient was asking for more PT. She had previously received PT at this location. Smith is asking for referral to be faxed to [phone]. Any questions can be directed to [phone]. documented in this encounter [facility] 01-10-2025 Note HNO ID: [id number] Author: ANGELLA SAHU, PT Service: ? Author Type: Physical Therapist Type: Progress Notes Filed: 01/10/2025 09:21 Note Text: Episode Visit Count: 2 Therapist That Will Accept/Oversee The Plan Of Care: Smith Caro PT Start of Care Date: 01/04/25 Onset Date: 01/04/23 Plan of Care Certification Date: 01/04/25 Next Certification Due Date: 02/08/25 Patient Identified by Name and Date of : Yes REHABILITATION AND SPORTS THERAPY PHYSICAL THERAPY TREATMENT NOTE ASSESSMENT: Susan Calderon tolerated the session with fatigue and expected muscle soreness. She demonstrated improvements in seated posture with small lumbar towel roll. The patient will continue to benefit from ongoing skilled physical therapy to progress toward set goals. PLAN FOR NEXT VISIT: Asses resposne to back injection went. Continue with seated core strengthening. SUBJECTIVE: Pt reports that her legs are bothering her today, was walking fast. As the day goes, symptoms get worse through the BLE and low back. Scheduled to get back injection today at 12:15. Pain: Pain Pain Level: 5 (pain increases by end of day, states it's up there) Pain Location: Low Back/Lumbar Spine- Midline, Leg - Right, Leg - Left OBJECTIVE MEASURES WITH LEVEL OF FUNCTION: TREATMENT: Therapeutic Exercise: 1: Seated TA activation with 1-2 second holds 2x10 2: Seated TA activation with alt UE raises 2x10 B 3: Seated TA activation with BLE marching 2x10 B 4: *Seated TA activation with push into 55 cm physioball 3x10 Skilled Intervention: Patient was educated in proper exercise technique and purpose for exercises. Reviewed and educated patient on additions/changes for home exercise program as above (*). Skilled judgment was used in selection of appropriate interventions. Correct performance of therapeutic exercises was facilitated with verbal and visual cuing. Billing Therapeutic Exercise Treatment Minutes: 38 Skilled Treatment Time Minutes (timed and untimed codes): 38 Total Session Time (minutes): 38 Session Start Time : 806 Session Stop Time : 844 VANI Sullivan, CLEMENTE [facility] 01-10-2025 History of Present illness Narrative Episode Visit Count: 2 Therapist That Will Accept/Oversee The Plan Of Care: Smith Caro PT Start of Care Date: 01/04/25 Onset Date: 01/04/23 Plan of Care Certification Date: 01/04/25 Next Certification Due Date: 02/08/25 Patient Identified by Name and Date of : Yes REHABILITATION AND SPORTS THERAPY PHYSICAL THERAPY TREATMENT NOTE ASSESSMENT: Susan Calderon tolerated the session with fatigue and expected muscle soreness. She demonstrated improvements in seated posture with small lumbar towel roll. The patient will continue to benefit from ongoing skilled physical therapy to progress toward set goals. PLAN FOR NEXT VISIT: Asses resposne to back injection went. Continue with seated core strengthening. SUBJECTIVE: Pt reports that her legs are bothering her today, was walking fast. As the day goes, symptoms get worse through the BLE and low back. Scheduled to get back injection today at 12:15. Pain: Pain Pain Level: 5 (pain increases by end of day, states it's up there) Pain Location: Low Back/Lumbar Spine- Midline, Leg - Right, Leg - Left OBJECTIVE MEASURES WITH LEVEL OF FUNCTION: TREATMENT: Therapeutic Exercise: 1: Seated TA activation with 1-2 second holds 2x10 2: Seated TA activation with alt UE raises 2x10 B 3: Seated TA activation with BLE marching 2x10 B 4: *Seated TA activation with push into 55 cm physioball 3x10 Skilled Intervention: Patient was educated in proper exercise technique and purpose for exercises. Reviewed and educated patient on additions/changes for home exercise program as above (*). Skilled judgment was used in selection of appropriate interventions. Correct performance of therapeutic exercises was facilitated with verbal and visual cuing. Billing Therapeutic Exercise Treatment Minutes: 38 Skilled Treatment Time Minutes (timed and untimed codes): 38 Total Session Time (minutes): 38 Session Start Time : 806 Session Stop Time : 844 VANI Sullivan PT documented in this encounter [facility] 01-09-2025 Note Addended by: JULIETA MEEKS on: 01/09/2025 09:23 AM Modules accepted: Orders [facility] 01-09-2025 Note Addended by: JULIETA MEEKS on: 01/09/2025 09:23 AM Modules accepted: Orders [facility] 01-09-2025 Note Placed referral to P T. Please fax to appropriate location. Thanks. [facility] 01-09-2025 Telephone encounter Note Placed referral to PT. Please fax to appropriate location. Thanks. [facility] 01-09-2025 Miscellaneous Notes Addended by: JULIETA DELGADO on: 01/09/2025 09:23 AM Modules accepted: Orders Placed referral to PT. Please fax to appropriate location. Thanks. Smith from [facility] in [place] called in to report patient was asking for more PT. She had previously received PT at this location. Smith is asking for referral to be faxed to [phone]. Any questions can be directed to [phone]. documented in this encounter [facility] 01-09-[address] [facility] in [place] called in to report patient was asking for more PT. She had previously received PT at this location. Smith is asking for referral to be faxed to [phone]. Any questions can be directed to [phone]. [facility] 01-09-2025 Telephone encounter Note Smith from [facility] in [place] called in to report patient was asking for more PT. She had previously received PT at this location. Smith is asking for referral to be faxed to [phone]. Any questions can be directed to [phone]. [facility] 01-04-2025 Note HNO ID: [id number] Author: SMITH CARO, PT Service: ? Author Type: Physical Therapist Type: Progress Notes Filed: 01/05/2025 12:50 Note Text: Episode Visit Count: 1 Therapist That Will Accept/Oversee The Plan Of Care: Smith Caro PT Start of Care Date: 01/04/25 Onset Date: 01/04/23 Plan of Care Certification Date: 01/04/25 Next Certification Due Date: 02/08/25 Patient Identified by Name and Date of : Yes REHABILITATION AND SPORTS THERAPY PHYSICAL THERAPY EVALUATION PLAN OF CARE: Assessment: Susan Calderon presents with chief complaint of low back pain that interferes with walking . The patient presents with impairments in ADL's, independence in exercise, overall function, range of motion, and strength. Patient did not complete the PROMIS? (Patient Reported Outcome Measures Information System). Prognosis for therapy is Good due to: current objective clinical presentation . The patient will benefit from skilled therapy services to meet the goals established for this plan of care as noted below. Classification Pain Mechanism Classification: Neuropathic Goals for Episode of Care: established 01/04/25 Independent in home exercises. Patient will decrease pain rating by 2 points to meet minimal clinical important difference for numeric pain rating scale. Restore pain-free lumbar ROM to min limitation or greater to allow for ease of picking up items and dressing Stand / Walk for 30 minutes without pain/symptoms. Pt will demo abdominal and extensor strength of the core to 5/5 for improved tolerance to ADL's and prolonged standing/walking. Patient Goals: Get to surgery Time Frame for Goals and Treatment : 02/01/25 Planned Interventions, Frequency, and Duration: Current Frequency: (1x/week for 2 weeks then 2x/week for 2 weeks) Duration: 4 weeks Total Number of Visits Planned: 6 Planned Treatment Interventions: Therapeutic exercise (34683), Neuromuscular re-education (81187), Manual therapy (95790), Therapeutic activities (63943), Self-detention management (12481), Patient/Family/Caregiver Education PLAN FOR NEXT VISIT: Core strengthening in a neutral spine Patient demonstrates good understanding of plan of care and treatment. The above goals and plan of care were discussed and agreed upon by patient/family. SUBJECTIVE: Pt states that she has to have surgery. She needs to go through PT first. For now they want her to go through injections and PT. The surgeon is with [facility] in [place]. Has had surgery maybe 2005. She can only stand or walk for so long before she needs to sit down. She gets upper leg pain as well Patient Goals: Get to surgery Functional Limitations: walking Prior Level of Function: Independent without limitations Intake Information: Prescription present Previous Treatment: (Gabapentin) Red Flags Vertebral Fracture Red Flags: Female, Age >70 Vertebral Fracture Clinical Reasoning: Proceed with caution due to the above (1-2) risk factors Abdominal Aortic Aneurysm Red Flags: Age >60 Abdominal Aortic Aneurysm Clinical Reasoning: Proceed with caution Cancer Red Flags: Age >50 or <20 Cancer Clinical Reasoning: Proceed with caution Infection Clinical Reasoning: No identified risk factors. Cauda Equina Syndrome Clinical Reasoning: No identified risk factors. Red Flags - Cervical Cancer Red Flags: Age >50 or <20 Cancer Clinical Reasoning: Proceed with caution Infection Clinical Reasoning: No identified risk factors. Pain: Pain Pain Level: 4 (When she is not doing a lot) Pain Location: Low Back/Lumbar Spine- Midline Description: Dull, Aching PROMIS Scales 11/30/2024 11/01/2024 Higher is Better Phys Func - T Score 34 (moderate dysfunction) Phys Func - Percentile 5 Self-Eff Symptom - T Score 26 (Very Low) 41 (Average) Self-Eff Symptom - Percentile 1 18 Mobility - T Score 28 (severe dysfunction) Mobility - Percentile 1 Proxy-reported T-scores: mean of general population = 50. 5 points is clinically meaningfully difference Percentiles provide an indication of how the patient's score ranks in relation to the general population. Higher percentile rankings indicate better function/quality of life. 50th percentile is the average of the general population and indicates half of respondents had a worse score. OBJECTIVE MEASURES WITH LEVEL OF FUNCTION: Posture / Alignment Posture: Slump Reflexes - Lower Extremity R Patellar: Absent R Achilles: Absent L Patellar: Absent L Achilles: Absent Lumbar Spine AROM Lumbar Flexion: Minimal limitation, Increased pain Lumbar Extension: Major limitation Lumbar R Side-Bend: Moderate limitation Lumbar L Side-Bend: Moderate limitation, Increased pain Lumbar R Rotation: Moderate limitation Lumbar L Rotation: Moderate limitation LE Strength Trunk Strength: Trunk flexion and extension strength is 3+/5 tested in seated position R Hip Flexion (L2): 3+/5 (Legs are shaki (more content not included)... [facility] 01-03-2025 Note Attempted to call rosangela briones. Left her a message to call the office. Told patient to check her discharge summary paperwork because a print out of the order should be there with her after visit paperwork. Told patient to call office if she has any other questions or concerns. [facility] 01-02-2025 History of Present illness Narrative NEUROSURGERY CONSULT NOTE Patient Name: Susan Calderon Patient : 1955 PCP: CEE CHRISTIANSON History of Present Ilness: 69 y.o. presents with low back pain. States the pain radiates into her legs. She states her legs are weak and ache. She has difficulty walking. She cannot ambulate any significant distance. She has difficulty walking up stairs. She is unable to stand up straight. She does have a walker and cane that she uses intermittently. States she has been having these symptoms for 6 months. She has modified her activity, used a back brace and used heat/ice. She takes gabapentin as well. She has history of L4-S1 fusion. Chief Complaint Patient presents with New Patient Needs spinal surgery Past Medical History: Medical History[1] Past Surgical History: Surgical History[2] Home Medications: Prior to Admission medications Medication Sig Start Date End Date Taking? Authorizing Provider aspirin 81 MG chewable tablet Chew 81 mg daily. Yes Historical Provider, atenolol (Tenormin) 25 MG tablet Take 25 mg by mouth daily. Yes Historical Provider, atorvastatin (Lipitor) 10 MG tablet Take 10 mg by mouth Nightly. Yes Historical Provider, cetirizine (ZyrTEC) 10 MG chewable tablet Chew 10 mg daily. Yes Historical Provider, coenzyme Q-10 10 MG capsule Take by mouth twice a day. 02/21/24 Yes Historical Provider, Collagen-Vitamin C-Biotin (Collagen 1500/C) 500-50-0.8 MG capsule Take by mouth. 02/21/24 Yes Historical Provider, cyclobenzaprine (Flexeril) 5 MG tablet TAKE 1-2 TABLETS BY MOUTH THREE TIMES A DAY NEEDED (CRAMPING AND MUSCLE SPASM). Yes Historical Provider, donepezil (Aricept) 10 MG tablet Take 10 mg by mouth. 11/29/24 05/28/25 Yes Historical Provider, gabapentin (Neurontin) 400 MG capsule Take 400 mg by mouth 3 times a day. 03/29/24 Yes Historical Provider, lisinopril 40 MG tablet Take 40 mg by mouth daily. 10/17/24 Yes Historical Provider, magnesium oxide (Mag-Ox) 400 MG tablet Take 2 each by mouth daily. Yes Historical Provider, montelukast (Singulair) 10 MG tablet Take 10 mg by mouth Nightly. Yes Historical Provider, niacin, antihyperlipidemic, 500 MG tablet Take 500 mg by mouth daily (with breakfast). Yes Historical Provider, omega-3 (fish oil) 1200 MG capsule Take 1 capsule by mouth daily (with breakfast). Yes Historical Provider, Allergies: Penicillins, Doxycycline, Nabumetone, and Pseudoephedrine-guaifenesin Social History: TOBACCO: reports that she quit smoking about 5 years ago. Her smoking use included cigarettes. She started smoking about 35 years ago. She has never used smokeless tobacco. ETOH: reports current alcohol use of about 3.0 - 4.0 standard drinks of alcohol per week. RECREATIONAL DRUG USE: Social History Substance and Sexual Activity Drug Use Never Family History: Family History[3] Review of Systems Physical Examination: Vitals: 01/02/25 1113 BP: (!) 142/84 Pulse: 60 Physical Exam Vitals reviewed. Constitutional: Appearance: Normal appearance. HENT: Head: Normocephalic and atraumatic. Nose: Nose normal. Mouth/Throat: Pharynx: Oropharynx is clear. Eyes: Extraocular Movements: Extraocular movements intact. Conjunctiva/sclera: Conjunctivae normal. Cardiovascular: Rate and Rhythm: Normal rate and regular rhythm. Pulses: Normal pulses. Pulmonary: Effort: Pulmonary effort is normal. No respiratory distress. Abdominal: General: There is no distension. Palpations: Abdomen is soft. Tenderness: There is no abdominal tenderness. Musculoskeletal: General: No tenderness. Normal range of motion. Cervical back: Normal range of motion and neck supple. No rigidity. Skin: General: Skin is warm and dry. Neurological: Mental Status: She is alert and oriented to person, place, and time. Cranial Nerves: No cranial nerve deficit. Sensory: No sensory deficit. Motor: Weakness present. Gait: Gait abnormal. Deep Tendon Reflexes: Reflexes abnormal. Comments: Gait unsteady, kyphotic in thoracolumbar spine Unable to walk on toes and heels Difficulty standing from a chair Strength 3 to 4-/5 in distal BLE Psychiatric: Mood and Affect: Mood normal. Behavior: Behavior normal. Neurological Exam Mental Status Alert. Oriented to person, place, and time. Cranial Nerves CN III, IV, : Extraocular movements intact bilaterally. Gait Abnormal gait. Gait unsteady, kyphotic in thoracolumbar spine Unable to walk on toes and heels Difficulty standing from a chair Strength 3 to 4-/5 in distal BLE . Gait Unsteady, kyphotic in thoracolumbar spine Results Labs: Last 24hrs No results found for this or any previous visit (from the past 24 hours). Radiology Personal review: Recent MRI lumbar spine was reviewed. She has moderate subacute appearing T11 compression fracture. She has evidence of previous L4-S1 fusion. 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 She also has considerable arachnoiditis with nerve root clumping throughout her lumbar spine ASSESSMENT / PLAN : 69yo f with symptomatic pathology referable to her thoracolumbar spine. Her imaging was reviewed with her, and she is symptomatic to the above noted pathology. Both surgical and conservative treatment options were discussed with her. With respect to lumbar surgery, the risks, benefits, and alternatives to a re explore fusion L4-S1, L3-L4 decompression fusion with pedicle screw fixation and possible cage insertion were discussed and understood by the patient. With respect to thoracic spine surgery, the risks, benefits, and alternatives to a T11 kyphoplasty were discussed and understood by the patient. The rehabilitation process and prognosis to both procedures were discussed as well and all her questions were answered. She understands with a kyphoplasty, she would be at increased risk to have adjacent segment compression fractures. She would be at increased surgical risk due to obesity, overall bone quality, hypertension, hyperlipidemia, and the size and scope of the procedure and pathology. She is considering her options. We discussed conservative options for now such as medication, therapy, and injections. She also understands that regardless of any surgical procedure that would be performed it is possible that none of her symptoms may improve or improvement may be limited due to the extent of arachnoiditis which would not be improved with further surgery. She would like to try injections. She was given a referral to pain management for injections. I have ordered repeat xrays to be done in 3 months to monitor her compression fracture. Diagnosis Plan 1. Lumbar stenosis with neurogenic claudication XR lumbar spine 4-5 view XR THORACIC SPINE COMPLETE 4+ VIEWS External referral to Pain Medicine 2. Closed wedge compression fracture of T11 vertebra, initial encounter ([facility]) XR lumbar spine 4-5 view XR THORACIC SPINE COMPLETE 4+ VIEWS External referral to Pain Medicine 3. Arachnoiditis XR lumbar spine 4-5 view XR THORACIC SPINE COMPLETE 4+ VIEWS External referral to Pain Medicine [1] Past Medical History: Diagnosis Date High cholesterol HTN (hypertension) Lumbar pain [2] Past Surgical History: Procedure Laterality Date LUMBAR FUSION 2002 SMALL INTESTINE SURGERY 2017 TOTAL ABDOMINAL HYSTERECTOMY W/ BILATERAL SALPINGOOPHORECTOMY 2001 [3] Family History Problem Relation Name Age of Onset Stroke Mother aneurysm Lung cancer Father documented in this encounter [facility] 01-01-2025 Telephone encounter Note CD READY FOR JIG FITTER AT [facility] RAD[facility] 01-01-2025 Miscellaneous Notes CD READY FOR JIG FITTER AT [facility] RADIOLOG[facility] Patient calling asking to have Lumbar xrays that were done 09/11/2024 put on a disc please. Patient has appt on 01/[address] Lorenzo. Advised patient to pick up operator disc on Wednesday at specialty center Radiology desk. If any problem please call patient. Thank you documented in this encounter [facility] 12-30-2024 History of Present illness Narrative Radiology Service Progress Note PATIENT NAME: Susan Calderon DATE OF SERVICE: December 30, 2024 TIME: 8:52 AM PATIENT IDENTITY VERIFICATION COMPLETED USING TWO (2) IDENTIFIERS: Name and Date of confirmed by patient verbally. FALL SCREENING: Has the patient had 2 falls in the last year or 1 fall with injury or currently using an Ambulatory Assistive Device (Walker, Cane, Wheelchair, Crutches, etc.)? No PATIENT GENDER DATA: Assigned female at . status: : No status: NO. PATIENT RELEVANT IMPLANT DATA REVIEWED: Not Applicable PATIENT PRESENTS WITH AN IMPLANTABLE OR ATTACHED EQUIPMENT CLEANER AND TESTER: No RADIOLOGY DEPARTMENT: MR; Exam(s) Completed: Spine: Lumbar spine. Lavender Administered: No PERIPHERAL IV DATA: Not applicable SIGNED BY: RT Ruma(Kb) December 30, 2024 8:52 AM documented in this encounter [facility] 12-30-2024 Note HNO ID: [id number] Author: TJ MOREL RT(R) Service: ? Author Type: Tunnel Heading Inspector Type: Progress Notes Filed: 12/30/2024 08:52 Note Text: Radiology Service Progress Note PATIENT NAME: Susan Calderon DATE OF SERVICE: December 30, 2024 TIME: 8:52 AM PATIENT IDENTITY VERIFICATION COMPLETED USING TWO (2) IDENTIFIERS: Name and Date of confirmed by patient verbally. FALL SCREENING: Has the patient had 2 falls in the last year or 1 fall with injury or currently using an Ambulatory Assistive Device (Walker, Cane, Wheelchair, Crutches, etc.)? No PATIENT GENDER DATA: Assigned female at . status: : No status: NO. PATIENT RELEVANT IMPLANT DATA REVIEWED: Not Applicable PATIENT PRESENTS WITH AN IMPLANTABLE OR ATTACHED EQUIPMENT CLEANER AND TESTER: No RADIOLOGY DEPARTMENT: MR; Exam(s) Completed: Spine: Lumbar spine. Lavender Administered: No PERIPHERAL IV DATA: Not applicable SIGNED BY: RT Ruma(Kb) December 30, 2024 8:52 AM [facility] 12-29-2024 Telephone encounter Note Patient scheduled [facility] 12-29-2024 Miscellaneous Notes Patient scheduled Pcp ordered the test. Please call pt to arrange. Filed lumbar MRI for acute and chronic back pain with history of back surgery. Filed stat to see if can get soon. Patient calls and message below reviewed at length. Pain is a 6-7/10 currently. Can be an 8-10 if she does too much. At rest pain would be less than a 6 but always has some kind of discomfort. Reports that it is the lower back even with the waist of her pants (where previous surgical incision is)and just below the middle of the back. From what patient is saying the pain would be in the lumbar and lower thoracic spine. Pain worsens with movement, she has difficulty walking, and has to lie on her left side to sleep at night. Her son is currently home and seeking a job in the area as he is assisting her with housework. Patient was going to contact Dr. Lorenzo to let them know MRI was to be ordered but unsure if or when it would be approved. Azalia Kingston RN Spoke with patient and she guesses it would be the lower portion ot the thoracic spine as she is having difficulty walking and standing up. She is going to contact Dr. Lorenzo to verify what area it is. Will return call once answered. Verify pain is thoracic spine.Clarify if pain is upper or lower thoracic spine, how severe is the pain (scale 1-10, limiting any activities, causing trouble sleeping or walking,etc) I can file the order, but she needs to know the following: Let her know that if insurance requires documentation of a more detailed exam to approve the MRI, I did not do a detailed exam of her back in September, so this might be an issue. Not sure what she means by cleared to see Dr. Lorenzo--we discussed her pain and decided would be a good idea for her to see Dr. Lorenzo since had lumbar spine surgery Also, I did not do a detailed history in September since the plan was for her to follow up with Dr. Lorenzo to do the evaluation. Another issue might be that insurance might require PT for 6 weeks before approving an MRI unless has red flag symptoms or tried PT and got worse or did not improve in a few sessions, Patient presented at front end java developer asking for orders for MRI of the spine as Dr. Christianson in the last office visit cleared the patient to be seen by Dr. Prince Lorenzo, a neurosurgeon. Dr. Lorenzo's office is wanting an MRI completed prior to her scheduled office visit on 01/02/25. Please advise/assist. Amy Alex documented in this encounter [facility] 12-27-2024 Telephone encounter Note Pcp ordered the test. Please call pt to arrange. [facility] 12-27-2024 Telephone encounter Note Filed lumbar MRI for acute and chronic back pain with history of back surgery. Filed stat to see if can get soon. [facility] 12-27-2024 Telephone encounter Note Patient calling asking to have Lumbar xrays that were done 09/11/2024 put on a disc please. Patient has appt on 01/[address] Lorenzo. Advised patient to pick up operator disc on Wednesday at specialty center Radiology desk. If any problem please call patient. Thank you [facility] 12-27-2024 Telephone encounter Note Patient calls and message below reviewed at length. Pain is a 6-7/10 currently. Can be an 8-10 if she does too much. At rest pain would be less than a 6 but always has some kind of discomfort. Reports that it is the lower back even with the waist of her pants (where previous surgical incision is)and just below the middle of the back. From what patient is saying the pain would be in the lumbar and lower thoracic spine. Pain worsens with movement, she has difficulty walking, and has to lie on her left side to sleep at night. Her son is currently home and seeking a job in the area as he is assisting her with housework. Patient was going to contact Dr. Lorenzo to let them know MRI was to be ordered but unsure if or when it would be approved. Azalia Kingston RN T [facility] 12-27-2024 Telephone encounter Note Spoke with patient and she guesses it would be the lower portion ot the thoracic spine as she is having difficulty walking and standing up. She is going to contact Dr. Lorenzo to verify what area it is. Will return call once answered. [facility] 12-27-2024 Telephone encounter Note Verify pain is thoracic spine.Clarify if pain is upper or lower thoracic spine, how severe is the pain (scale 1-10, limiting any activities, causing trouble sleeping or walking,etc) I can file the order, but she needs to know the following: Let her know that if insurance requires documentation of a more detailed exam to approve the MRI, I did not do a detailed exam of her back in September, so this might be an issue. Not sure what she means by cleared to see Dr. Lorenzo--we discussed her pain and decided would be a good idea for her to see Dr. Lorenzo since had lumbar spine surgery Also, I did not do a detailed history in September since the plan was for her to follow up with Dr. Lorenzo to do the evaluation. Another issue might be that insurance might require PT for 6 weeks before approving an MRI unless has red flag symptoms or tried PT and got worse or did not improve in a few sessions, [facility] 12-25-2024 Telephone encounter Note Patient presented at front end java [facility] asking for orders for MRI of the spine as Dr. Christianson in the last office visit cleared the patient to be seen by Dr. Prince Lorenzo, a neurosurgeon. Dr. Lorenzo's office is wanting an MRI completed prior to her scheduled office visit on 01/02/25. Please advise/assist. Amy Alex [facility] 11-30-2024 History of Present illness Narrative Program_ID:[id number] Access Code: [email or web address] URL: [email or web address] Date: 11-30-2024 Prepared By: Danny Tucker Program Notes Exercises - Seated Lumbar Flexion Stretch - 2 x daily - 7 x weekly - 3 sets - reps - Supine Lower Trunk Rotation - 2 x daily - 7 x weekly - 2 sets - 10 reps - Seated Trunk Rotation - Arms Crossed - 2 x daily - 7 x weekly - 2 sets - 10 reps - Seated Long Arc Quad - 2 x daily - 7 x weekly - 2 sets - 8-12 reps - Seated March - 2 x daily - 7 x weekly - 2 sets - 10 reps - Seated Sidebending - 2 x daily - 7 x weekly - 2 sets - 10 reps - Seated Single Arm Reach Down with Trunk Rotation with PLB - 2 x daily - 7 x weekly - 2 sets - 10 reps Images from the original note were not included. Episode Visit Count: 2 Therapist That Will Accept/Oversee The Plan Of Care: Danny Tucker PT. Start of Care Date: 11/01/24 Onset Date: 11/01/21 Plan of Care Certification Date: 11/01/24 Next Certification Due Date: 12/08/24 Patient Identified by Name and Date of : Yes REHABILITATION AND SPORTS THERAPY PHYSICAL THERAPY DISCONTINUANCE OF CARE PLAN OF CARE UPDATE: Assessment: Susan Calderon is discontinued from Physical Therapy services due to maximal benefit. and Patient/Clinician mutual decision to discontinue current plan of care. Patient was seen for 2 visits from Start of Care Date: 11/01/24 to 11/30/2024 and treatment included: Therapeutic exercise and Self-detention management. Updated: 11/30/24. Goals for Episode of Care: established 11/01/24 Patient reported outcome of physical function will increase T-score by a minimum 5 points. (NOT MET) Dunn in home exercise program. (NOT MET, rx'd 2x/a day, completed 2-3x a week) Patient will decrease pain rating by 2 points to meet minimal clinical important difference for numeric pain rating scale. (NOT MET) Patient will improve pain free lumbar range of motion to minimal limitation or better to improve ability to perform dressing activities. (NOT MET) Patient will endorse ability to walk further distance without back or leg pain. (NOT MET) Sleep through night without pain/symptoms. (NOT MET) Patient Goals: Alleviate Pain. (NOT MET) SUBJECTIVE: 1st Visit in a month. States pain always hurts, however sitting still alleviates. Has to clean and house manage her whole house and this flares it. Takes interrmittent breaks over doing everything at once. Has not reached out to Dr. Lorenzo yet regarding surgery per report. Reports everything is the same currently despite doing the exercises 2-3x a week. Gabapentin and Flexeril not helping too much. Asked to up mg of Gabapentin but she has not yet. Pain: Pain Pain Level: 4 (Not too bad.) Pain Location: Low Back/Lumbar Spine- Midline, Leg - Left, Leg - Right Post Treatment Pain Post Treatment Pain Level: No Change PROMIS Scales 11/30/2024 11/01/2024 Higher is Better Phys Func - T Score 34 (moderate dysfunction) Phys Func - Percentile 5 Self-Eff Symptom - T Score 26 (Very Low) 41 (Average) Self-Eff Symptom - Percentile 1 18 Mobility - T Score 28 (severe dysfunction) Mobility - Percentile 1 Proxy-reported T-scores: mean of general population = 50. 5 points is clinically meaningfully difference Percentiles provide an indication of how the patient's score ranks in relation to the general population. Higher percentile rankings indicate better function/quality of life. 50th percentile is the average of the general population and indicates half of respondents had a worse score. OBJECTIVE MEASURES WITH LEVEL OF FUNCTION: Lumbar Spine AROM Lumbar Flexion: Minimal limitation Lumbar Extension: Major limitation Lumbar R Side-Bend: Moderate limitation Lumbar L Side-Bend: Moderate limitation Lumbar R Rotation: Minimal limitation Lumbar L Rotation: Minimal limitation Lumbar Spine AROM Comments: All tested in standing; most pain with returning to upright from bent position. Gait Gait Observation: Ambulates without AD Indep.. Significant lean forward during gait. Antalgic with decreased raymundo. TREATMENT: Therapeutic Exercise: 1: Discussed patients condition and progress over the past month. Patient reports no progress made and she wants to continue with surgery rather than conservative care. PT advised patient to reach out to her previous surgeon regarding this option moving forward. 2: Advised on active lifestyle as tolerable & to modify activity for pain relief as needed. 3: *Seated Alt. Marchinx10 each. Discussed proper posture and brace. 4: *Seated Side Bends: 2x10 each. Discussed upright posture and no flexion or ext. 5: *Seated Flexion/Rotation to tolerable range: 2x10. 6: Discussed back bracing based on patients question. Skilled Intervention: Patient was educated in proper exercise technique and purpose for exercises. Reviewed and educated patient on additions/changes for home exercise program as above (*). Skilled judgment was used in selection of appropriate interventions. Provided written instruction for home exercise program to facilitate proper performance and compliance. Correct performance of therapeutic exercises was facilitated with verbal and tactile cuing. Billing Therapeutic Exercise Treatment Minutes: 27 Skilled Treatment Time Minutes (timed and untimed codes): 27 Total Session Time (minutes): 27 Session Start Time : 1508 Session Stop Time : 1535 Decreased visit time due to patient arriving late to appointment. Danny Tucker PT documented in this encounter [facility] 11-30-2024 Note HNO ID: [id number] Author: DANNY TUCKER PT Service: ? Author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 Pulmonary effort is normal. Breath sounds: Normal breath sounds. Abdominal: General: Bowel sounds are normal. There is no distension. Palpations: Abdomen is soft. There is no mass. Tenderness: There is no abdominal tenderness. Musculoskeletal: General: No deformity. Normal range of motion. Right lower leg: No edema. Left lower leg: No edema. Lymphadenopathy: Cervical: No cervical adenopathy. Skin: General: Skin is warm and dry. Coloration: Skin is not jaundiced or pale. Findings: No rash. Neurological: General: No focal deficit present. Mental Status: She is alert and oriented to person, place, and time. Cranial Nerves: No cranial nerve deficit. Sensory: No sensory deficit. Motor: No abnormal muscle tone. Coordination: Coordination normal. Deep Tendon Reflexes: Reflexes normal. Psychiatric: Attention and Perception: Attention and perception normal. Mood and Affect: Mood and affect normal. Speech: Speech normal. Behavior: Behavior normal. Thought Content: Thought content normal. Cognition and Memory: Cognition normal. Memory is impaired. Judgment: Judgment normal. Latest Ref Rng 02/18/2024 09/08/2024 WBC 3.70 - 11.00 k/uL 5.09 8.37 RBC 3.90 - 5.20 m/uL 4.28 4.50 Hemoglobin 11.5 - 15.5 g/dL 13.1 13.3 Hematocrit 36.0 - 46.0 % 40.8 42.6 MCV 80.0 - 100.0 fL 95.3 94.7 MCH 26.0 - 34.0 pg 30.6 29.6 MCHC 30.5 - 36.0 g/dL 32.1 31.2 RDW-CV 11.5 - 15.0 % 12.8 13.2 Platelet Count 150 - 400 k/uL 229 317 MPV 9.0 - 12.7 fL 11.0 10.9 Neut% % 57.0 Abs Neut (ANC) 1.45 - 7.50 k/uL 2.90 Lymph% % 29.5 Abs Lymph 1.00 - 4.00 k/uL 1.50 [place]% % 9.0 Abs [place] <0.87 k/uL 0.46 Eosin% % 3.1 Abs Eosin <0.46 k/uL 0.16 Baso% % 1.2 Abs Baso <0.11 k/uL 0.06 Immature Gran % % 0.2 IMMATURE GRANS (ABS) <0.10 k/uL <0.03 NRBC /100 WBC 0.0 Absolute nRBC <0.01 k/uL <0.01 <0.01 DTYPE Auto Protein, Total 6.3 - 8.0 g/dL 6.9 7.7 Albumin 3.9 - 4.9 g/dL 4.1 4.1 Calcium 8.5 - 10.2 mg/dL 9.0 9.2 Bilirubin, Total 0.2 - 1.3 mg/dL 0.3 0.3 Alkaline Phosphatase 34 - 123 U/L 82 114 AST 13 - 35 U/L 36 (H) 27 ALT 7 - 38 U/L 21 18 Glucose 74 - 99 mg/dL 98 100 (H) BUN 7 - 21 mg/dL 15 24 (H) Creatinine 0.58 - 0.96 mg/dL 0.84 0.73 Sodium 136 - 144 mmol/L 131 (L) 133 (L) Potassium 3.7 - 5.1 mmol/L 4.9 4.8 Chloride 98 - 107 mmol/L 97 (L) 98 CO2 22 - 30 mmol/L 20 (L) 24 Anion Gap 8 - 15 mmol/L 14 11 eGFR >=60 mL/min/1.73m 75 89 Cholesterol, Total <200 mg/dL 114 141 Triglyceride <150 mg/dL 57 53 HDL Cholesterol >39 mg/dL 57 60 Non HDL Cholesterol <130 mg/dL 57 81 Fasting Time hrs 13 12 VLDL Cholesterol <30 mg/dL 11 11 TC:HDL Ratio <5.10 2.00 2.35 LDL Cholesterol <100 mg/dL 46 70 LDL:HDL Ratio <2.54 0.81 1.17 Iron 41 - 186 ug/dL 56 TIBC 232 - 386 ug/dL 293 Transferrin Saturation 15.0 - 57.0 % 19.1 Vitamin B12 232 - 1,245 pg/mL 673 769 Ferritin 14.7 - 205.1 ng/mL 363.0 (H) 432.0 (H) Magnesium 1.7 - 2.3 mg/dL 1.9 2.0 Vitamin D 25 Hydroxy 31.0 - 80.0 ng/mL 52.2 61.9 Legend: (H) High (L) Low Latest Ref Rng 03/29/2023 02/18/2024 09/08/2024 Ferritin 14.7 - 205.1 ng/mL 249.0 (H) 363.0 (H) 432.0 (H) Legend: (H) High Assessment and Plan # Memory deficit (R41.3) - Noted concerns about memory deficits, including repetitive conversations and difficulty recalling stories. - Referred to Dr. Westfall for further evaluation and neurocognitive screening. - Discussed importance of maintaining a healthy lifestyle, including regular exercise, adequate hydration, and balanced nutrition to support cognitive function. # Obesity, Class II, BMI 35-39.9 (E66.812) # Class 2 obesity due to excess calories with body mass index (BMI) of 37.0 to 37.9 in adult, unspecified whether serious comorbidity present (E66.812) - Current BMI within Class II obesity range. - Patient has been actively working on weight loss through portion control and dietary modifications. - Encouraged continuation of current dietary practices focusing on high protein, low carbohydrate intake. - Discussed potential benefits of incorporating edamame into diet for additional protein and fiber. # Primary hypertension (I10) - Blood pressure readings generally within acceptable range, mostly in the 130s. - Continue current antihypertensive regimen including atenolol and lisinopril. - Advised to monitor blood pressure regularly and report any significant changes. # Elevated ferritin (R79.89) - Recent ferritin level at 432 ng/mL, slightly elevated compared to previous readings. - Discussed potential causes including recent bladder infection and dietary factors. - Advised to avoid high sugar intake which may contribute to inflammation. - Will monitor ferritin levels closely in future lab work. # Vitamin D deficiency (E55.9) - Current vitamin D levels are within normal range. - Continue current supplementation as prescribed. # Pain in thoracic spine (M54.6) - Patient reports ongoing thoracic spine pain. - Discussed previous consultations with Dr. Prince Lorenzo regarding potential surgical intervention. - Advised to follow up with Dr. Lorenzo or another deck specialist for further evaluation and management. - Recommended maintaining good posture and considering physical therapy exercises to alleviate discomfort. # Encounter for long-term current use of medication (Z74.649) - Reviewed current medication regimen including cyclobenzaprine, gabapentin, atenolol, atorvastatin, montelukast, and lisinopril. - No reported side effects or adverse reactions. - Discussed importance of adherence to prescribed medications and potential benefits of using a pillbox to organize doses. - Advised to take montelukast at bedtime for optimal efficacy in managing allergies. # Encounter for screening mammogram for breast cancer (Z12.31) - Ordered screening mammogram; patient to schedule at her convenience. - Discussed importance of regular mammograms for early detection of breast cancer. # Encounter for immunization (Z23) - Administered latest COVID-19 vaccine. - Patient received RSV vaccine in February of the previous year. - Discussed shingles vaccine; patient to inquire at pharmacy about receiving the second dose., # Screening for depression (Z13.31) - Conducted depression screening; no signs of depression or hopelessness reported. I spent a total of 60 minutes on the date of the service which included [id number] patient care, completing clinical documentation, obtaining and/or reviewing separately obtained history, performing a medically appropriate examination, counseling and educating the patient/family/caregiver, ordering medications, tests, or procedures, communicating with other HCPs (not separately reported), communicating results to the patient/family/caregiver, and care coordination (not separately reported). Cee Christianson MD documented in this encounter [facility] 09-22-2024 History of Present illness Narrative Radiology Service Progress Note PATIENT NAME: Susan Calderon DATE OF SERVICE: September 22, 2024 TIME: 2:46 PM PATIENT IDENTITY VERIFICATION COMPLETED USING TWO (2) IDENTIFIERS: Name and Date of confirmed by patient verbally. FALL SCREENING: Has the patient had 2 falls in the last year or 1 fall with injury or currently using an Ambulatory Assistive Device (Walker, Cane, Wheelchair, Crutches, etc.)? No PATIENT GENDER DATA: Assigned female at . status: : No status: NO. PATIENT RELEVANT IMPLANT DATA REVIEWED: Not Applicable PATIENT PRESENTS WITH AN IMPLANTABLE OR ATTACHED EQUIPMENT CLEANER AND TESTER: No RADIOLOGY DEPARTMENT: Ultrasound PERIPHERAL IV DATA: Not applicable SIGNED BY: Angella Tom RDMS RVT September 22, 2024 2:46 PM documented in this encounter [facility] 09-22-2024 Note HNO ID: [id number] Author: ANGELLA TOM RDMS Service: ? Author Type: Testing Projects Administrator Type: Progress Notes Filed: 09/22/2024 14:46 Note Text: Radiology Service Progress Note PATIENT NAME: Susan Calderon DATE OF SERVICE: September 22, 2024 TIME: 2:46 PM PATIENT IDENTITY VERIFICATION COMPLETED USING TWO (2) IDENTIFIERS: Name and Date of confirmed by patient verbally. FALL SCREENING: Has the patient had 2 falls in the last year or 1 fall with injury or currently using an Ambulatory Assistive Device (Walker, Cane, Wheelchair, Crutches, etc.)? No PATIENT GENDER DATA: Assigned female at . status: : No status: NO. PATIENT RELEVANT IMPLANT DATA REVIEWED: Not Applicable PATIENT PRESENTS WITH AN IMPLANTABLE OR ATTACHED EQUIPMENT CLEANER AND TESTER: No RADIOLOGY DEPARTMENT: Ultrasound PERIPHERAL IV DATA: Not applicable SIGNED BY: Angella Tom RDMS RVT September 22, 2024 2:46 PM [facility] 09-21-2024 Note HNO ID: [id number] Author: PRADEEP BLANTON MD Service: ? Author Type: Physician Type: Progress Notes Filed: 09/22/2024 00:28 Note Text: This note was created using [employer]. Subjective Patient presents with: Express Care follow-up Susan Calderon is a 69 year old female who developed progressive right lower back pain, sharp, aggravated by bending, sitting up, and movement about 3 weeks ago. She had been moving stuff around her house, but denied any specific injury. She had a history of back pain and back surgeries. Pain progressed, and was associated with urinary urgency and hesitancy so she went to 09/11/24 where she was treated with Medrol pack, and urine sent for culture. She was then treated for a urinary tract infection. Her symptoms were resolving but started flaring up again when the antibiotic finished. Review of Systems Constitutional: Negative for chills, diaphoresis and fever. Respiratory: Negative for shortness of breath. Gastrointestinal: Negative for abdominal pain, nausea and vomiting. Genitourinary: Positive for dysuria, flank pain, frequency and urgency. Negative for hematuria. Musculoskeletal: Positive for back pain and gait problem. Neurological: Negative for weakness and numbness. ACTIVE PROBLEM LIST Primary Hypertension Anxiety State, Unspecified Generalized Anxiety Disorder Carpal Tunnel Syndrome Generalized Osteoarthrosis, Unspecified Site Esophageal Reflux Enlargement of Lymph Nodes Asthma Degeneration of Lumbar Intervertebral Disc Dysmetabolic Syndrome Pruritus--back Candidal Intertrigo Hypercholesteremia Small Bowel Obstruction (Hcc) S/P Small Bowel Resection Cigarette Smoker Obesity, Class II, Bmi 35-39.9 Osteopenia of Both Hips Macrocytic Anemia Allergic Rhinitis Elevated Ferritin Class 2 Obesity Due to Excess Calories With Body Mass Index (Bmi) of 37.0 to 37.9 in Adult Screening for Colon Cancer Social History Tobacco Use Smoking status: Former Current packs/day: 0.00 Types: Cigarettes Quit date: 07/25/2022 Years since quittin.1 Smokeless tobacco: Never Tobacco comments: Cigarette every 2-3 days( 02/19/23 ) February 19, 2023 Practically quit smoking. Just one the other day and made lightheaded. Vaping Use Vaping status: Never Used Substance Use Topics Alcohol use: Yes Comment: weekend has beer usually Drug use: No Current Outpatient Medications Medication Sig cyclobenzaprine (FLEXERIL) 5 mg tablet Take 1-2 tablets by mouth three times a day as needed (cramping and muscle spasm). atenolol (TENORMIN) 25 mg tablet Take 1 tablet by mouth once daily. gabapentin (NEURONTIN) 400 mg capsule Take 1 capsule by mouth three times a day for 180 days. atorvastatin (LIPITOR) 10 mg tablet Take 1 tablet by mouth daily at bedtime. montelukast (SINGULAIR) 10 mg tablet Take 1 tablet by mouth daily at bedtime. ubidecarenone Q-10 (CO Q-10) 10 mg cap Take by mouth two times a day. usfjnpuw-zbprqk-vkdqztah acid (COLLAGEN 1500 PLUS C) 500 mg-800 mcg- 50 mg cap Take by mouth. lisinopril (ZESTRIL) 40 mg tablet Take 1 tablet by mouth once daily. DOSE CHANGE - TAKE ONE DAILY omega-3 DHA-EPA (FISH OIL) 1,200 (144-216) mg capsule Take 1 capsule by mouth daily with breakfast. D3/red wine/resveratrol/malt (SUPER-D3+ ORAL) Take 1 Each by mouth once daily. magnesium oxide 400 mg magnesium tab Take 1 Each by mouth once daily. niacin (NIACIN) 500 mg tablet Take 500 mg by mouth daily with breakfast. aspirin 81 mg chewable tablet Take 81 mg by mouth once daily. calcium carbonate/vitamin D3 (CALCIUM WITH VITAMIN D ORAL) Take by mouth. 1200 with 1000 of D OTC NUTRITIONAL SUPPLEMENT Prevagen glucosamine/chondroitin/C/Juice (GLUCOSAMINE-CHONDROITIN COMPLX ORAL) Take by mouth. VITAMIN E ORAL Take 1 capsule by mouth once daily. vitamin B complex (SUPER B COMPLEX ORAL) Take 1 tablet by mouth once daily. fluticasone (FLONASE) 50 mcg/actuation nasal spray SPRAY 2 SPRAYS INTO EACH NOSTRIL ONCE DAILY - RINSE MOUTH AFTER USE fluticasone-salmeterol (ADVAIR DISKUS) 250-50 mcg/dose inhaler Inhale 1 Puff as instructed twice daily. albuterol HFA (PROVENTIL HFA) 90 mcg/actuation inhaler Inhale 2 Puffs as instructed every 4 hours as needed for wheezing/shortness of breath. naproxen sodium (ANAPROX) 220 mg tablet Take 220 mg by mouth once daily as needed. (Patient not taking: Reported on 09/11/2024) acetaminophen/diphenhydramine (PM PAIN RELIEF ORAL) Take by mouth. (Patient not taking: Reported on 09/11/2024) ascorbic acid, vitamin C, (VITAMIN C) 500 mg tablet Take 500 mg by mouth once daily. (Patient not taking: Reported on 09/11/2024) No current facility-administered medications for this visit. Objective BP 136/82 (BP Site: Right Arm, BP Position: Sitting, BP Cuff Size: Large Adult) Pulse 80 Temp 37.3 ?C (99.2 ?F) (Temporal) Resp 16 Wt 100.5 kg (221 lb 9 oz) BMI 35.23 kg/m? Physical Exam Constituti (more content not included)... [facility] 09-21-2024 History of Present illness Narrative This note was created using [employer]. Subjective Patient presents with: Express Care follow-up Susan Calderon is a 69 year old female who developed progressive right lower back pain, sharp, aggravated by bending, sitting up, and movement about 3 weeks ago. She had been moving stuff around her house, but denied any specific injury. She had a history of back pain and back surgeries. Pain progressed, and was associated with urinary urgency and hesitancy so she went to 09/11/24 where she was treated with Medrol pack, and urine sent for culture. She was then treated for a urinary tract infection. Her symptoms were resolving but started flaring up again when the antibiotic finished. Review of Systems Constitutional: Negative for chills, diaphoresis and fever. Respiratory: Negative for shortness of breath. Gastrointestinal: Negative for abdominal pain, nausea and vomiting. Genitourinary: Positive for dysuria, flank pain, frequency and urgency. Negative for hematuria. Musculoskeletal: Positive for back pain and gait problem. Neurological: Negative for weakness and numbness. ACTIVE PROBLEM LIST Primary Hypertension Anxiety State, Unspecified Generalized Anxiety Disorder Carpal Tunnel Syndrome Generalized Osteoarthrosis, Unspecified Site Esophageal Reflux Enlargement of Lymph Nodes Asthma Degeneration of Lumbar Intervertebral Disc Dysmetabolic Syndrome Pruritus--back Candidal Intertrigo Hypercholesteremia Small Bowel Obstruction (Hcc) S/P Small Bowel Resection Cigarette Smoker Obesity, Class II, Bmi 35-39.9 Osteopenia of Both Hips Macrocytic Anemia Allergic Rhinitis Elevated Ferritin Class 2 Obesity Due to Excess Calories With Body Mass Index (Bmi) of 37.0 to 37.9 in Adult Screening for Colon Cancer Social History Tobacco Use Smoking status: Former Current packs/day: 0.00 Types: Cigarettes Quit date: 07/25/2022 Years since quittin.1 Smokeless tobacco: Never Tobacco comments: Cigarette every 2-3 days( 02/19/23 ) February 19, 2023 Practically quit smoking. Just one the other day and made lightheaded. Vaping Use Vaping status: Never Used Substance Use Topics Alcohol use: Yes Comment: weekend has beer usually Drug use: No Current Outpatient Medications Medication Sig cyclobenzaprine (FLEXERIL) 5 mg tablet Take 1-2 tablets by mouth three times a day as needed (cramping and muscle spasm). atenolol (TENORMIN) 25 mg tablet Take 1 tablet by mouth once daily. gabapentin (NEURONTIN) 400 mg capsule Take 1 capsule by mouth three times a day for 180 days. atorvastatin (LIPITOR) 10 mg tablet Take 1 tablet by mouth daily at bedtime. montelukast (SINGULAIR) 10 mg tablet Take 1 tablet by mouth daily at bedtime. ubidecarenone Q-10 (CO Q-10) 10 mg cap Take by mouth two times a day. aclfkwwg-hlqbsd-kpbmsups acid (COLLAGEN 1500 PLUS C) 500 mg-800 mcg- 50 mg cap Take by mouth. lisinopril (ZESTRIL) 40 mg tablet Take 1 tablet by mouth once daily. DOSE CHANGE - TAKE ONE DAILY omega-3 DHA-EPA (FISH OIL) 1,200 (144-216) mg capsule Take 1 capsule by mouth daily with breakfast. D3/red wine/resveratrol/malt (SUPER-D3+ ORAL) Take 1 Each by mouth once daily. magnesium oxide 400 mg magnesium tab Take 1 Each by mouth once daily. niacin (NIACIN) 500 mg tablet Take 500 mg by mouth daily with breakfast. aspirin 81 mg chewable tablet Take 81 mg by mouth once daily. calcium carbonate/vitamin D3 (CALCIUM WITH VITAMIN D ORAL) Take by mouth. 1200 with 1000 of D OTC NUTRITIONAL SUPPLEMENT Prevagen glucosamine/chondroitin/C/Juice (GLUCOSAMINE-CHONDROITIN COMPLX ORAL) Take by mouth. VITAMIN E ORAL Take 1 capsule by mouth once daily. vitamin B complex (SUPER B COMPLEX ORAL) Take 1 tablet by mouth once daily. fluticasone (FLONASE) 50 mcg/actuation nasal spray SPRAY 2 SPRAYS INTO EACH NOSTRIL ONCE DAILY - RINSE MOUTH AFTER USE fluticasone-salmeterol (ADVAIR DISKUS) 250-50 mcg/dose inhaler Inhale 1 Puff as instructed twice daily. albuterol HFA (PROVENTIL HFA) 90 mcg/actuation inhaler Inhale 2 Puffs as instructed every 4 hours as needed for wheezing/shortness of breath. naproxen sodium (ANAPROX) 220 mg tablet Take 220 mg by mouth once daily as needed. (Patient not taking: Reported on 09/11/2024) acetaminophen/diphenhydramine (PM PAIN RELIEF ORAL) Take by mouth. (Patient not taking: Reported on 09/11/2024) ascorbic acid, vitamin C, (VITAMIN C) 500 mg tablet Take 500 mg by mouth once daily. (Patient not taking: Reported on 09/11/2024) No current facility-administered medications for this visit. Objective BP 136/82 (BP Site: Right Arm, BP Position: Sitting, BP Cuff Size: Large Adult) Pulse 80 Temp 37.3 C (99.2 F) (Temporal) Resp 16 Wt 100.5 kg (221 lb 9 oz) BMI 35.23 kg/m Physical Exam Constitutional: General: She is not in acute distress. Appearance: She is not ill-appearing. Pulmonary: Effort: No respiratory distress. Breath sounds: No wheezing or rales. Abdominal: General: There is no distension. Palpations: Abdomen is soft. There is no mass. Tenderness: There is no abdominal tenderness. There is right CVA tenderness and left CVA tenderness. Musculoskeletal: Thoracic back: No spasms or tenderness. Lumbar back: No spasms or tenderness. Negative right straight leg raise test and negative left straight leg raise test. Skin: Findings: No rash. Neurological: Mental Status: She is alert. Sensory: No sensory deficit. Motor: No weakness. Gait: Gait abnormal. Comments: Antalgic gait. Latest Ref Rng 09/21/2024 GLUCOSE UA (POCT) Negative mg/dL Negative BILIRUBIN UA (POCT) Negative Negative KETONE UA (POCT) Negative mg/dL Negative SPECIFIC GRAVITY UA (POCT) 1.005 - 1.030 1.020 HEMOGLOBIN/BLOOD UA (POCT) Negative Trace-intact ! PH UA (POCT) 4.5 - 8.0 8.0 PROTEIN UA (POCT) Negative mg/dL Negative UROBILINOGEN UA (POCT) Normal E.U./dL 0.2 NITRITE UA (POCT) Negative Negative LEUKOCYTES UA (POCT) Negative Negative COLOR UA (POCT) Yellow CLARITY UA (POCT) Clear Legend: ! Abnormal Assessment and Plan 1. Urinary tract infection without hematuria, site unspecified - ICD9: 599.0, ICD10: N39.0 (primary diagnosis) acute - Repeat treatment. Check for kidney stones. - UA DIP, URINE (POC) - US KIDNEY/BLADDER - NITROFURANTOIN MONOHYDRATE & MACROCRYSTAL 100 MG ORAL CAP 2. Right-sided low back pain without sciatica, unspecified chronicity - ICD9: 724.2, ICD10: M54.50 Musculoskeletal back pain rule out kidney stone. - US KIDNEY/BLADDER Pradeep Blanton MD documented in this encounter [facility] 09-13-2024 Telephone encounter Note Patient contacted and given message below and verbalized understanding. Rosita Vazquez RN [facility] 09-13-2024 Miscellaneous Notes Patient contacted and given message below and verbalized understanding. Rosita Vazquez RN Please let patient know her urine culture did reveal a UTI. I have sent an antibiotic [facility] Take this as prescribed. documented in this encounter [facility] 09-13-2024 Telephone encounter Note Please let patient know her urine culture did reveal a UTI. I have sent an antibiotic into [facility]. Take this as prescribed. [facility] 09-11-2024 History of Present illness Narrative Radiology Service Progress Note PATIENT NAME: Susan Calderon DATE OF SERVICE: September 11, 2024 TIME: 10:03 AM PATIENT IDENTITY VERIFICATION COMPLETED USING TWO (2) IDENTIFIERS: Name and Date of confirmed by patient verbally. FALL SCREENING: Has the patient had 2 falls in the last year or 1 fall with injury or currently using an Ambulatory Assistive Device (Walker, Cane, Wheelchair, Crutches, etc.)? No PATIENT GENDER DATA: Assigned female at . status: : No status: NO. PATIENT RELEVANT IMPLANT DATA REVIEWED: Yes PATIENT PRESENTS WITH AN IMPLANTABLE OR ATTACHED EQUIPMENT CLEANER AND TESTER: No RADIOLOGY DEPARTMENT: General X-ray: Exam(s) Completed: Spine X-Ray(s): Lumbar AP / LAT / L5-S1 PERIPHERAL IV DATA: Not applicable SIGNED BY: RT Paulina(R) September 11, 2024 10:03 AM documented in this encounter [facility] 09-11-2024 Note HNO ID: [id number] Author: BOBBY ADAME RT(R) Service: ? Author Type: Tunnel Heading Inspector Type: Progress Notes Filed: 09/11/2024 10:20 Note Text: Radiology Service Progress Note PATIENT NAME: Susan Calderon DATE OF SERVICE: September 11, 2024 TIME: 10:03 AM PATIENT IDENTITY VERIFICATION COMPLETED USING TWO (2) IDENTIFIERS: Name and Date of confirmed by patient verbally. FALL SCREENING: Has the patient had 2 falls in the last year or 1 fall with injury or currently using an Ambulatory Assistive Device (Walker, Cane, Wheelchair, Crutches, etc.)? No PATIENT GENDER DATA: Assigned female at . status: : No status: NO. PATIENT RELEVANT IMPLANT DATA REVIEWED: Yes PATIENT PRESENTS WITH AN IMPLANTABLE OR ATTACHED EQUIPMENT CLEANER AND TESTER: No RADIOLOGY DEPARTMENT: General X-ray: Exam(s) Completed: Spine X-Ray(s): Lumbar AP / LAT / L5-S1 PERIPHERAL IV DATA: Not applicable SIGNED BY: RT Paulina(R) September 11, 2024 10:03 AM [facility] 09-11-2024 Note HNO ID: [id number] Author: JEAN KIM PA Service: ? Author Type: Physician Blacksmith Apprentice Type: Progress Notes Filed: 09/11/2024 10:44 Note Text: This note was created using [employer]. Subjective Susan Calderon is a 69 year old female. HPI 69-year-old female presents for low back pain. Patient states she has been having low back pain for the past few weeks. She was moving furniture and feels like this may have flared up her back. She is having right-sided low back pain radiating towards her right hip. Patient does have history of lumbar issues, has had surgery on low back in the past. She denies any new fall. No fevers. No numbness or tingling in the legs. Still able to ambulate. She has prescribed Neurontin and Flexeril by her primary care doctor, but does not seem to be helping with this pain. She is also been taking Advil for the pain. She states that she has been having some urinary frequency as well. No blood in the urine, dysuria, fevers, vomiting. PAST MEDICAL HISTORY Diagnosis Date Allergic rhinitis, cause unspecified Allergic rhinitis Arthritis Carpal tunnel syndrome Degeneration of intervertebral disc, site unspecified Depressive disorder, not elsewhere classified Esophageal reflux Generalized anxiety disorder Anxiety, Generalized Generalized osteoarthrosis, unspecified site Hypercholesteremia Unspecified essential hypertension PAST SURGICAL HISTORY Procedure Laterality Date ABDOMINAL SURGERY HX COLONOSCOPY FLX DX W/COLLJ SPEC WHEN PFRMD 02/07/2014 Colonoscopy LAPAROSCOPIC HEMICOLECTOMY 2018 LIG/TRNSXJ FLP TUBE ABDL/VAG APPR UNI/BI Tubal ligation PAST SURGICAL HISTORY OF 09/16/2002 spinal fusion lumbar L3-S1 PAST SURGICAL HISTORY OF 08/16/1998 bilateral heel spurs PAST SURGICAL HISTORY OF 08/16/2002 debridment lumbar surgical site- staph TOTAL ABDOMINAL HYSTERECT W/WO RMVL TUBE OVARY 03/16/2002 Hysterectomy, SOFI ALLERGIES Cephalosporins, Penicillins, Doxycycline, Entex Pse [Pseudoephedrine-Guaifenesin], Levaquin [Levofloxacin], and Relafen [Nabumetone] MEDICATIONS cyclobenzaprine (FLEXERIL) 5 mg tablet Take 1-2 tablets by mouth three times a day as needed (cramping and muscle spasm). atenolol (TENORMIN) 25 mg tablet Take 1 tablet by mouth once daily. gabapentin (NEURONTIN) 400 mg capsule Take 1 capsule by mouth three times a day for 180 days. atorvastatin (LIPITOR) 10 mg tablet Take 1 tablet by mouth daily at bedtime. montelukast (SINGULAIR) 10 mg tablet Take 1 tablet by mouth daily at bedtime. ubidecarenone Q-10 (CO Q-10) 10 mg cap Take by mouth two times a day. ttnuyuzn-ircnaz-cjgdlisq acid (COLLAGEN 1500 PLUS C) 500 mg-800 mcg- 50 mg cap Take by mouth. lisinopril (ZESTRIL) 40 mg tablet Take 1 tablet by mouth once daily. DOSE CHANGE - TAKE ONE DAILY omega-3 DHA-EPA (FISH OIL) 1,200 (144-216) mg capsule Take 1 capsule by mouth daily with breakfast. D3/red wine/resveratrol/malt (SUPER-D3+ ORAL) Take 1 Each by mouth once daily. magnesium oxide 400 mg magnesium tab Take 1 Each by mouth once daily. niacin (NIACIN) 500 mg tablet Take 500 mg by mouth daily with breakfast. aspirin 81 mg chewable tablet Take 81 mg by mouth once daily. calcium carbonate/vitamin D3 (CALCIUM WITH VITAMIN D ORAL) Take by mouth. 1200 with 1000 of D OTC NUTRITIONAL SUPPLEMENT Prevagen glucosamine/chondroitin/C/Juice (GLUCOSAMINE-CHONDROITIN COMPLX ORAL) Take by mouth. VITAMIN E ORAL Take 1 capsule by mouth once daily. vitamin B complex (SUPER B COMPLEX ORAL) Take 1 tablet by mouth once daily. fluticasone (FLONASE) 50 mcg/actuation nasal spray SPRAY 2 SPRAYS INTO EACH NOSTRIL ONCE DAILY - RINSE MOUTH AFTER USE albuterol HFA (PROVENTIL HFA) 90 mcg/actuation inhaler Inhale 2 Puffs as instructed every 4 hours as needed for wheezing/shortness of breath. naproxen sodium (ANAPROX) 220 mg tablet Take 220 mg by mouth once daily as needed. (Patient not taking: Reported on 09/11/2024) acetaminophen/diphenhydramine (PM PAIN RELIEF ORAL) Take by mouth. (Patient not taking: Reported on 09/11/2024) ascorbic acid, vitamin C, (VITAMIN C) 500 mg tablet Take 500 mg by mouth once daily. (Patient not taking: Reported on 09/11/2024) fluticasone-salmeterol (ADVAIR DISKUS) 250-50 mcg/dose inhaler Inhale 1 Puff as instructed twice daily. FAMILY HISTORY Problem Relation Age of Onset other (cerebral aneurysm) Mother Cancer Father lung other (cerebral aneurysm) Maternal Grandfather No Known Problems Brother Social History Tobacco Use Smoking status: Former Current packs/day: 0.00 Types: Cigarettes Quit date: 07/25/2022 Years since quittin.1 Smokeless tobacco: Never Tobacco comments: Cigarette every 2-3 days( 02/19/23 ) February 19, 2023 Practically quit smoking. Just one the other day and made lightheaded. Vaping Use Vaping status: Never Used Substance Use Topics Alcohol use: Yes Comment: weekend has beer usually Drug use: No Revi (more content not included)... [facility] 09-11-2024 History of Present illness Narrative This note was created using [employer]. Subjective Susan Calderon is a 69 year old female. HPI 69-year-old female presents for low back pain. Patient states she has been having low back pain for the past few weeks. She was moving furniture and feels like this may have flared up her back. She is having right-sided low back pain radiating towards her right hip. Patient does have history of lumbar issues, has had surgery on low back in the past. She denies any new fall. No fevers. No numbness or tingling in the legs. Still able to ambulate. She has prescribed Neurontin and Flexeril by her primary care doctor, but does not seem to be helping with this pain. She is also been taking Advil for the pain. She states that she has been having some urinary frequency as well. No blood in the urine, dysuria, fevers, vomiting. PAST MEDICAL HISTORY Diagnosis Date Allergic rhinitis, cause unspecified Allergic rhinitis Arthritis Carpal tunnel syndrome Degeneration of intervertebral disc, site unspecified Depressive disorder, not elsewhere classified Esophageal reflux Generalized anxiety disorder Anxiety, Generalized Generalized osteoarthrosis, unspecified site Hypercholesteremia Unspecified essential hypertension PAST SURGICAL HISTORY Procedure Laterality Date ABDOMINAL SURGERY HX COLONOSCOPY FLX DX W/COLLJ SPEC WHEN PFRMD 02/07/2014 Colonoscopy LAPAROSCOPIC HEMICOLECTOMY 2018 LIG/TRNSXJ FLP TUBE ABDL/VAG APPR UNI/BI Tubal ligation PAST SURGICAL HISTORY OF 09/16/2002 spinal fusion lumbar L3-S1 PAST SURGICAL HISTORY OF 08/16/1998 bilateral heel spurs PAST SURGICAL HISTORY OF 08/16/2002 debridment lumbar surgical site- staph TOTAL ABDOMINAL HYSTERECT W/WO RMVL TUBE OVARY 03/16/2002 Hysterectomy, SOFI ALLERGIES Cephalosporins, Penicillins, Doxycycline, Entex Pse [Pseudoephedrine-Guaifenesin], Levaquin [Levofloxacin], and Relafen [Nabumetone] MEDICATIONS cyclobenzaprine (FLEXERIL) 5 mg tablet Take 1-2 tablets by mouth three times a day as needed (cramping and muscle spasm). atenolol (TENORMIN) 25 mg tablet Take 1 tablet by mouth once daily. gabapentin (NEURONTIN) 400 mg capsule Take 1 capsule by mouth three times a day for 180 days. atorvastatin (LIPITOR) 10 mg tablet Take 1 tablet by mouth daily at bedtime. montelukast (SINGULAIR) 10 mg tablet Take 1 tablet by mouth daily at bedtime. ubidecarenone Q-10 (CO Q-10) 10 mg cap Take by mouth two times a day. obdtabdb-wbvknn-ahzqlzvf acid (COLLAGEN 1500 PLUS C) 500 mg-800 mcg- 50 mg cap Take by mouth. lisinopril (ZESTRIL) 40 mg tablet Take 1 tablet by mouth once daily. DOSE CHANGE - TAKE ONE DAILY omega-3 DHA-EPA (FISH OIL) 1,200 (144-216) mg capsule Take 1 capsule by mouth daily with breakfast. D3/red wine/resveratrol/malt (SUPER-D3+ ORAL) Take 1 Each by mouth once daily. magnesium oxide 400 mg magnesium tab Take 1 Each by mouth once daily. niacin (NIACIN) 500 mg tablet Take 500 mg by mouth daily with breakfast. aspirin 81 mg chewable tablet Take 81 mg by mouth once daily. calcium carbonate/vitamin D3 (CALCIUM WITH VITAMIN D ORAL) Take by mouth. 1200 with 1000 of D OTC NUTRITIONAL SUPPLEMENT Prevagen glucosamine/chondroitin/C/Juice (GLUCOSAMINE-CHONDROITIN COMPLX ORAL) Take by mouth. VITAMIN E ORAL Take 1 capsule by mouth once daily. vitamin B complex (SUPER B COMPLEX ORAL) Take 1 tablet by mouth once daily. fluticasone (FLONASE) 50 mcg/actuation nasal spray SPRAY 2 SPRAYS INTO EACH NOSTRIL ONCE DAILY - RINSE MOUTH AFTER USE albuterol HFA (PROVENTIL HFA) 90 mcg/actuation inhaler Inhale 2 Puffs as instructed every 4 hours as needed for wheezing/shortness of breath. naproxen sodium (ANAPROX) 220 mg tablet Take 220 mg by mouth once daily as needed. (Patient not taking: Reported on 09/11/2024) acetaminophen/diphenhydramine (PM PAIN RELIEF ORAL) Take by mouth. (Patient not taking: Reported on 09/11/2024) ascorbic acid, vitamin C, (VITAMIN C) 500 mg tablet Take 500 mg by mouth once daily. (Patient not taking: Reported on 09/11/2024) fluticasone-salmeterol (ADVAIR DISKUS) 250-50 mcg/dose inhaler Inhale 1 Puff as instructed twice daily. FAMILY HISTORY Problem Relation Age of Onset other (cerebral aneurysm) Mother Cancer Father lung other (cerebral aneurysm) Maternal Grandfather No Known Problems Brother Social History Tobacco Use Smoking status: Former Current packs/day: 0.00 Types: Cigarettes Quit date: 07/25/2022 Years since quittin.1 Smokeless tobacco: Never Tobacco comments: Cigarette every 2-3 days( 02/19/23 ) February 19, 2023 Practically quit smoking. Just one the other day and made lightheaded. Vaping Use Vaping status: Never Used Substance Use Topics Alcohol use: Yes Comment: weekend has beer usually Drug use: No Review of Systems Constitutional: Negative for chills and fever. HENT: Negative for congestion, ear pain and sore throat. Respiratory: Negative for cough and shortness of breath. Cardiovascular: Negative for chest pain. Gastrointestinal: Negative for diarrhea and vomiting. Musculoskeletal: Positive for back pain. Objective BP 128/80 Pulse 75 Temp 36.8 C (98.2 F) Resp 21 Wt 98.9 kg (218 lb 0.6 oz) SpO2 96% BMI 34.66 kg/m Physical Exam Vitals and nursing note reviewed. Constitutional: General: She is not in acute distress. Appearance: Normal appearance. She is not toxic-appearing. HENT: Nose: Nose normal. Mouth/Throat: Mouth: Mucous membranes are moist. Eyes: Conjunctiva/sclera: Conjunctivae normal. Cardiovascular: Rate and Rhythm: Normal rate and regular rhythm. Pulmonary: Effort: Pulmonary effort is normal. Breath sounds: Normal breath sounds. Abdominal: General: Abdomen is flat. Palpations: Abdomen is soft. Tenderness: There is no abdominal tenderness. There is no right CVA tenderness, left CVA tenderness, guarding or rebound. Musculoskeletal: Lumbar back: Tenderness and bony tenderness present. Decreased range of motion. Negative right straight leg raise test and negative left straight leg raise test. Comments: Midline low back tenderness. Tenderness over right sided lumbar paraspinal muscles. Tenderness over right buttocks/gluteus. Negative seated straight leg raise. Normal sensation lower extremities. Able to ambulate. No rash present. Skin: General: Skin is warm and dry. Neurological: Mental Status: She is alert. Assessment and Plan ASSESSMENT/PLAN: 1. Urinary frequency - ICD9: 788.41, ICD10: R35.0 (primary diagnosis) acute - UA positive for brad esterase - Send urine for culture - Patient education for prevention given - UA DIP, URINE (POC) - BACTERIAL CULTURE, URINE -No antibiotic given. Await urine culture 2. Acute midline low back pain with right-sided sciatica - ICD9: 724.2, 724.3, ICD10: M54.41 Chronic low back pain - Ice for localized tenderness - Medrol dose pack -Already prescribed gabapentin and Flexeril. May continue these. - XR LUMBAR GENERAL 3V AP/LAT/C2-C0-asfgzei no acute fracture. Unchanged retrolisthesis on L3 and L4. Degenerative changes of lumbar spine. -Recommend if back pain continues, needs close follow-up with PCP. Patient agreeable. Diagnosis and treatment plan were discussed and questions were answered to the patient's satisfaction. Pt acknowledged understanding of concepts and follow up plan. Specific signs and symptoms that would indicate the need for higher level of care were discussed in detail warranting prompt ER evaluation. ROSANGELA Paige documented in this encounter [facility] 08-12-2024 Telephone encounter Note The following approved medication requests have been transmitted electronically. Requested Prescriptions Pending Prescriptions Disp Refills cyclobenzaprine (FLEXERIL) 5 mg tablet 180 tablet 1 Sig: Take 1-2 tablets by mouth three times a day as needed (cramping and muscle spasm). Cee Christianson MD [facility] 08-12-2024 Miscellaneous Notes The following approved medication requests have been transmitted electronically. Requested Prescriptions Pending Prescriptions Disp Refills cyclobenzaprine (FLEXERIL) 5 mg tablet 180 tablet 1 Sig: Take 1-2 tablets by mouth three times a day as needed (cramping and muscle spasm). Cee Christianson MD Patient has been identified by name and date of : Yes Last office visit in this department: 02/21/2024 RX INSTRUCTIONS: Patient aware RX will be sent to pharmacy. No need to notify patient. Patient phones requesting refills as follows: Requested Prescriptions Pending Prescriptions Disp Refills cyclobenzaprine (FLEXERIL) 5 mg tablet 180 tablet 1 Sig: Take 1-2 tablets by mouth three times a day as needed (cramping and muscle spasm). Please review and advise. Joan Tinajero documented in this encounter [facility] 08-11-2024 Telephone encounter Note Patient has been identified by name and date of : Yes Last office visit in this department: 02/21/2024 RX INSTRUCTIONS: Patient aware RX will be sent to pharmacy. No need to notify patient. Patient phones requesting refills as follows: Requested Prescriptions Pending Prescriptions Disp Refills cyclobenzaprine (FLEXERIL) 5 mg tablet 180 tablet 1 Sig: Take 1-2 tablets by mouth three times a day as needed (cramping and muscle spasm). Please review and advise. Joan Tinajero [facility] 05-24-2024 Note Formatting of this n ote might be different from the original. The patient received a copy of Colonoscopy discharge instructions that contain information for how to contact the physician who performed the procedure and when to seek medical care. [facility] 05-24-2024 Miscellaneous Notes The patient received a copy of Colonoscopy discharge instructions that contain information for how to contact the physician who performed the procedure and when to seek medical care. documented in this encounter [facility] 05-24-2024 Note HNO ID: [id number] Author: LUZ PEPE RN Service: ? Author Type: Registered Nurse Type: Nursing Progress Note Filed: 05/24/2024 11:12 Note Text: Abdomen soft non-distended. Will continue to monitor. [facility] 05-24-2024 Nurse Note Abdomen soft non-distended. Will continue to monitor. [facility] 05-24-2024 Nurse Note Abdomen soft non-distended. Will continue to monitor. documented in this encounter [facility] 05-24-2024 History of Present illness Narrative PROCEDURAL SEDATION HISTORY AND PHYSICAL EXAM SERVICE DATE: 05/23/2024 SERVICE TIME: 10:09 AM Subjective HPI: This is a 68 year old female who presents for screening colonoscopy. Last colonoscopy in January 2014 showed a few medium mouthed diverticula in the sigmoid colon. No changes in bowel habits. No family history of colon cancer. PAST ANESTHESIA HISTORY: Reported history of combativeness after MAC for last colonoscopy per daughters report the patient had to be placed in soft restraints. PAST MEDICAL HISTORY Diagnosis Date Allergic rhinitis, cause unspecified Allergic rhinitis Arthritis Carpal tunnel syndrome Degeneration of intervertebral disc, site unspecified Depressive disorder, not elsewhere classified Esophageal reflux Generalized anxiety disorder Anxiety, Generalized Generalized osteoarthrosis, unspecified site Hypercholesteremia Unspecified essential hypertension PAST SURGICAL HISTORY Procedure Laterality Date ABDOMINAL SURGERY HX COLONOSCOPY FLX DX W/COLLJ SPEC WHEN PFRMD 02/07/2014 Colonoscopy LAPAROSCOPIC HEMICOLECTOMY 2018 LIG/TRNSXJ FLP TUBE ABDL/VAG APPR UNI/BI Tubal ligation PAST SURGICAL HISTORY OF 09/16/2002 spinal fusion lumbar L3-S1 PAST SURGICAL HISTORY OF 08/16/1998 bilateral heel spurs PAST SURGICAL HISTORY OF 08/16/2002 debridment lumbar surgical site- staph TOTAL ABDOMINAL HYSTERECT W/WO RMVL TUBE OVARY 03/16/2002 Hysterectomy, SOFI Prior to Admission medications as of 05/24/24 0934 Medication Sig Last Dose Taking atenolol (TENORMIN) 25 mg tablet Take 1 tablet by mouth once daily. 05/24/2024 at 0745 Yes gabapentin (NEURONTIN) 400 mg capsule Take 1 capsule by mouth three times a day for 180 days. 05/23/2024 Yes atorvastatin (LIPITOR) 10 mg tablet Take 1 tablet by mouth daily at bedtime. 05/23/2024 Yes cyclobenzaprine (FLEXERIL) 5 mg tablet Take 1-2 tablets by mouth three times a day as needed (cramping and muscle spasm). 05/23/2024 Yes montelukast (SINGULAIR) 10 mg tablet Take 1 tablet by mouth daily at bedtime. 05/23/2024 Yes ubidecarenone Q-10 (CO Q-10) 10 mg cap Take by mouth two times a day. 05/23/2024 Yes vgzqxmcq-dyrdag-uodkkzpb acid (COLLAGEN 1500 PLUS C) 500 mg-800 mcg- 50 mg cap Take by mouth. 05/23/2024 Yes lisinopril (ZESTRIL) 40 mg tablet Take 1 tablet by mouth once daily. DOSE CHANGE - TAKE ONE DAILY 05/24/2024 at 0745 Yes omega-3 DHA-EPA (FISH OIL) 1,200 (144-216) mg capsule Take 1 capsule by mouth daily with breakfast. 05/23/2024 Yes magnesium oxide 400 mg magnesium tab Take 1 Each by mouth once daily. 05/23/2024 Yes niacin (NIACIN) 500 mg tablet Take 500 mg by mouth daily with breakfast. 05/23/2024 Yes aspirin 81 mg chewable tablet Take 81 mg by mouth once daily. 05/23/2024 Yes calcium carbonate/vitamin D3 (CALCIUM WITH VITAMIN D ORAL) Take by mouth. 1200 with 1000 of D 05/23/2024 Yes OTC NUTRITIONAL SUPPLEMENT Prevagen 05/23/2024 Yes glucosamine/chondroitin/C/Juice (GLUCOSAMINE-CHONDROITIN COMPLX ORAL) Take by mouth. 05/23/2024 Yes VITAMIN E ORAL Take 1 capsule by mouth once daily. 05/23/2024 Yes vitamin B complex (SUPER B COMPLEX ORAL) Take 1 tablet by mouth once daily. 05/23/2024 Yes ascorbic acid, vitamin C, (VITAMIN C) 500 mg tablet Take 500 mg by mouth once daily. 05/23/2024 Yes D3/red wine/resveratrol/malt (SUPER-D3+ ORAL) Take 1 Each by mouth once daily. Unknown naproxen sodium (ANAPROX) 220 mg tablet Take 220 mg by mouth once daily as needed. Unknown acetaminophen/diphenhydramine (PM PAIN RELIEF ORAL) Take by mouth. Unknown fluticasone (FLONASE) 50 mcg/actuation nasal spray SPRAY 2 SPRAYS INTO EACH NOSTRIL ONCE DAILY - RINSE MOUTH AFTER USE Unknown fluticasone-salmeterol (ADVAIR DISKUS) 250-50 mcg/dose inhaler Inhale 1 Puff as instructed twice daily. Unknown albuterol HFA (PROVENTIL HFA) 90 mcg/actuation inhaler Inhale 2 Puffs as instructed every 4 hours as needed for wheezing/shortness of breath. Unknown ALLERGIES Allergen Reactions Cephalosporins Shortness of Breath Penicillins Anaphylaxis, Shortness of Breath rash Doxycycline Other: See Comments Teeth discoloration Entex Pse [Pseudoep* Intolerance insomnia,jittery Levaquin [Levofloxa* Other: See Comments muscle pain, heel pain (plantar side) Relafen [Nabumetone] Swelling Objective PHYSICAL EXAM: The remainder of the physical exam is noncontributory. AIRWAY: Airway Visualization of Uvula: Yes Mouth opening greater than 2 fingerbreadths: Yes Neck Full Range of Motion: Yes LUNGS: Lungs clear to auscultation CARDIAC: Regular rhythm,Regular rate Assessment/Plan ASA Class: ASA Class: Patient with mild systemic disease Active Problems: * No active hospital problems. * Resolved Problems: * No resolved hospital problems. * Medication and Non-Pharmacologic VTE Prophylaxis/Anticoagulants VTE Prophylaxis: NA Provisional Diagnosis/Treatment Plan: Screening colonoscopy with possible biopsy Sedation Goal: Moderate SIGNATURE: Matias Zapata DO PATIENT NAME: Susan Calderon DATE: May 23, 2024 TIME: 8:18 PM documented in this encounter [facility] 05-24-2024 Note HNO ID: [id number] Author: MATIAS ZAPATA DO Service: General Surgery Author Type: Physician Type: Progress Notes Filed: 05/24/2024 10:10 Note Text: PROCEDURAL SEDATION HISTORY AND PHYSICAL EXAM SERVICE DATE: 05/23/2024 SERVICE TIME: 10:09 AM Subjective HPI: This is a 68 year old female who presents for screening colonoscopy. Last colonoscopy in January 2014 showed a few medium mouthed diverticula in the sigmoid colon. No changes in bowel habits. No family history of colon cancer. PAST ANESTHESIA HISTORY: Reported history of combativeness after MAC for last colonoscopy per daughters report the patient had to be placed in soft restraints. PAST MEDICAL HISTORY Diagnosis Date Allergic rhinitis, cause unspecified Allergic rhinitis Arthritis Carpal tunnel syndrome Degeneration of intervertebral disc, site unspecified Depressive disorder, not elsewhere classified Esophageal reflux Generalized anxiety disorder Anxiety, Generalized Generalized osteoarthrosis, unspecified site Hypercholesteremia Unspecified essential hypertension PAST SURGICAL HISTORY Procedure Laterality Date ABDOMINAL SURGERY HX COLONOSCOPY FLX DX W/COLLJ SPEC WHEN PFRMD 02/07/2014 Colonoscopy LAPAROSCOPIC HEMICOLECTOMY 2018 LIG/TRNSXJ FLP TUBE ABDL/VAG APPR UNI/BI Tubal ligation PAST SURGICAL HISTORY OF 09/16/2002 spinal fusion lumbar L3-S1 PAST SURGICAL HISTORY OF 08/16/1998 bilateral heel spurs PAST SURGICAL HISTORY OF 08/16/2002 debridment lumbar surgical site- staph TOTAL ABDOMINAL HYSTERECT W/WO RMVL TUBE OVARY 03/16/2002 Hysterectomy, SOFI Prior to Admission medications as of 05/24/24 0934 Medication Sig Last Dose Taking atenolol (TENORMIN) 25 mg tablet Take 1 tablet by mouth once daily. 05/24/2024 at 0745 Yes gabapentin (NEURONTIN) 400 mg capsule Take 1 capsule by mouth three times a day for 180 days. 05/23/2024 Yes atorvastatin (LIPITOR) 10 mg tablet Take 1 tablet by mouth daily at bedtime. 05/23/2024 Yes cyclobenzaprine (FLEXERIL) 5 mg tablet Take 1-2 tablets by mouth three times a day as needed (cramping and muscle spasm). 05/23/2024 Yes montelukast (SINGULAIR) 10 mg tablet Take 1 tablet by mouth daily at bedtime. 05/23/2024 Yes ubidecarenone Q-10 (CO Q-10) 10 mg cap Take by mouth two times a day. 05/23/2024 Yes ifwpnddm-zuhpst-fxrhkggz acid (COLLAGEN 1500 PLUS C) 500 mg-800 mcg- 50 mg cap Take by mouth. 05/23/2024 Yes lisinopril (ZESTRIL) 40 mg tablet Take 1 tablet by mouth once daily. DOSE CHANGE - TAKE ONE DAILY 05/24/2024 at 0745 Yes omega-3 DHA-EPA (FISH OIL) 1,200 (144-216) mg capsule Take 1 capsule by mouth daily with breakfast. 05/23/2024 Yes magnesium oxide 400 mg magnesium tab Take 1 Each by mouth once daily. 05/23/2024 Yes niacin (NIACIN) 500 mg tablet Take 500 mg by mouth daily with breakfast. 05/23/2024 Yes aspirin 81 mg chewable tablet Take 81 mg by mouth once daily. 05/23/2024 Yes calcium carbonate/vitamin D3 (CALCIUM WITH VITAMIN D ORAL) Take by mouth. 1200 with 1000 of D 05/23/2024 Yes OTC NUTRITIONAL SUPPLEMENT Prevagen 05/23/2024 Yes glucosamine/chondroitin/C/Juice (GLUCOSAMINE-CHONDROITIN COMPLX ORAL) Take by mouth. 05/23/2024 Yes VITAMIN E ORAL Take 1 capsule by mouth once daily. 05/23/2024 Yes vitamin B complex (SUPER B COMPLEX ORAL) Take 1 tablet by mouth once daily. 05/23/2024 Yes ascorbic acid, vitamin C, (VITAMIN C) 500 mg tablet Take 500 mg by mouth once daily. 05/23/2024 Yes D3/red wine/resveratrol/malt (SUPER-D3+ ORAL) Take 1 Each by mouth once daily. Unknown naproxen sodium (ANAPROX) 220 mg tablet Take 220 mg by mouth once daily as needed. Unknown acetaminophen/diphenhydramine (PM PAIN RELIEF ORAL) Take by mouth. Unknown fluticasone (FLONASE) 50 mcg/actuation nasal spray SPRAY 2 SPRAYS INTO EACH NOSTRIL ONCE DAILY - RINSE MOUTH AFTER USE Unknown fluticasone-salmeterol (ADVAIR DISKUS) 250-50 mcg/dose inhaler Inhale 1 Puff as instructed twice daily. Unknown albuterol HFA (PROVENTIL HFA) 90 mcg/actuation inhaler Inhale 2 Puffs as instructed every 4 hours as needed for wheezing/shortness of breath. Unknown ALLERGIES Allergen Reactions Cephalosporins Shortness of Breath Penicillins Anaphylaxis, Shortness of Breath rash Doxycycline Other: See Comments Teeth discoloration Entex Pse [Pseudoep* Intolerance insomnia,jittery Levaquin [Levofloxa* Other: See Comments muscle pain, heel pain (plantar side) Relafen [Nabumetone] Swelling Objective PHYSICAL EXAM: The remainder of the physical exam is noncontributory. AIRWAY: Airway Visualization of Uvula: Yes Mouth opening greater than 2 fingerbreadths: Yes Neck Full Range of Motion: Yes LUNGS: Lungs clear to auscultation CARDIAC: Regular rhythm,Regular rate Assessment/Plan ASA Class: ASA Class: Patient with mild systemic disease Active Problems: * No active hospital problems. * Resolved Problems: * No resolved hospital problems. * Medication and Non-Pharmacol (more content not included)... [facility] 05-15-2024 Telephone encounter Note Phoned patient and given provider's message below with verbalized understanding. Patient agreeable. [facility] 05-15-2024 Miscellaneous Notes Phoned patient and given provider's message below with verbalized understanding. Patient agreeable. For just screening colonoscopy, does not have to hold aspirin prior to the colonoscopy. May continue taking after colonoscopy unless instructed otherwise (for example, if a large >2cm polyp needed removed, om which case would be given instructions when could resume since would need to be monitored to make sure no bleeding develops. So unless the person doing the procedure instructed her to hold aspirin, may continue aspirin as noted above. Pt walked in with questions of medicines to take before colonoscopy. This is scheduled for 05/24/24. All per answered except the paper from gen surg says if taking asa to contact your provider one if and when to stop this medicine? Can call pt with with this response. Can leave a message. She is aware that she is to take her atenolol and lisinopril with a sip of water. documented in this encounter [facility] 05-14-2024 Telephone encounter Note For just screening colonoscopy, does not have to hold aspirin prior to the colonoscopy. May continue taking after colonoscopy unless instructed otherwise (for example, if a large >2cm polyp needed removed, om which case would be given instructions when could resume since would need to be monitored to make sure no bleeding develops. So unless the person doing the procedure instructed her to hold aspirin, may continue aspirin as noted above. [facility] 05-04-2024 Telephone encounter Note Pt walked in with questions of medicines to take before colonoscopy. This is scheduled for 05/24/24. All per answered except the paper from gen surg says if taking asa to contact your provider one if and when to stop this medicine? Can call pt with with this response. Can leave a message. She is aware that she is to take her atenolol and lisinopril with a sip of water. [facility] 04-21-2024 Note Addended by: CEE GUEVARA on: 04/21/2024 09:30 PM Modules accepted: Orders [facility] 04-21-2024 Miscellaneous Notes Addended by: CEE CHRISTIANSON on: 04/21/2024 09:30 PM Modules accepted: Orders The following approved medication requests have been transmitted electronically. Requested Prescriptions Signed Prescriptions Disp Refills peg 3350-Electrolytes (GOLYTELY) 236-22.74-6.74 -5.86 gram suspension 1 Each 0 Sig: Take 4,000 mL by mouth one time only for 1 dose. As instructed Authorizing Provider: CEE CHRISTIANSON MD Please send Golytely script to [facility] [address] [place] [id number] documented in this encounter [facility] 04-21-2024 Telephone encounter Note The following approved medication requests have been transmitted electronically. Requested Prescriptions Signed Prescriptions Disp Refills peg 3350-Electrolytes (GOLYTELY) 236-22.74-6.74 -5.86 gram suspension 1 Each 0 Sig: Take 4,000 mL by mouth one time only for 1 dose. As instructed Authorizing Provider: CEE CHRISTIANSON MD [facility] 04-21-2024 Telephone encounter Note Please send Golytely script to [facility] [address] [place] [address] [facility] Work Phone: 03-30-2024 Telephone encounter Note Patient notified of provider's instructions. Patient verbalizes understanding. Amy Muller RN [facility] 03-30-2024 Miscellaneous Notes Patient notified of provider's instructions. Patient verbalizes understanding. Amy Muller RN Called and left a voicemail for the Patient to call back and ask for a nurse to receive the providers message. Ariana Cherry RN Will okay RX since was recently seen. Will needs seen sooner than 6 months if this dose is not adequate for pain control and feels needs dose adjusted. The following approved medication requests have been transmitted electronically. Requested Prescriptions Signed Prescriptions Disp Refills gabapentin (NEURONTIN) 400 mg capsule 270 capsule 1 Sig: Take 1 capsule by mouth three times a day for 180 days. Authorizing Provider: CEE CHRISTIANSON MD Phoned patient and asked about her back pain. She said lower back radiates to her buttocks and down her legs, she has had 2 previous surgeries. Patient said she is currently taking Gabapentin 400 mg one three times daily. The rx she has was filled 04/05/2023 from [facility] and still has some, needs new rx. She is also taking Ibuprofen 200 mg one tablet twice daily and Cyclobenzaprine 5 mg one to two tablets depending on her pain three times daily. Patient said she uses [facility] for her pharmacy. If she is not home can leave message for her. Please advise Patient calling today to request medication gabapentin(NEURONTIN 300 MG CAP) Patient is asking if she could increase the dosage because she is having increased spine pain. Patient last seen - 02/21/24 Future appointment scheduled: yes PHARMACY: [facility] documented in this encounter [facility] 03-29-2024 Telephone encounter Note Called and left a voicemail for the Patient to call back and ask for a nurse to receive the providers message. Ariana Cherry RN [facility] 03-29-2024 Telephone encounter Note Will okay RX since was recently seen. Will needs seen sooner than 6 months if this dose is not adequate for pain control and feels needs dose adjusted. The following approved medication requests have been transmitted electronically. Requested Prescriptions Signed Prescriptions Disp Refills gabapentin (NEURONTIN) 400 mg capsule 270 capsule 1 Sig: Take 1 capsule by mouth three times a day for 180 days. Authorizing Provider: CEE CHRISTIANSON MD [facility] 03-29-2024 Telephone encounter Note Phoned patient and asked about her back pain. She said lower back radiates to her buttocks and down her legs, she has had 2 previous surgeries. Patient said she is currently taking Gabapentin 400 mg one three times daily. The rx she has was filled 04/05/2023 from [facility] and still has some, needs new rx. She is also taking Ibuprofen 200 mg one tablet twice daily and Cyclobenzaprine 5 mg one to two tablets depending on her pain three times daily. Patient said she uses [facility] for her pharmacy. If she is not home can leave message for her. Please advise [facility] 03-29-2024 Telephone encounter Note Patient calling today to request medication gabapentin(NEURONTIN 300 MG CAP) Patient is asking if she could increase the dosage because she is having increased spine pain. Patient last seen - 02/21/24 Future appointment scheduled: yes PHARMACY: [facility] 03-29-2024 Telephone encounter Note Prescription Refill Information The patient has been identified by name and date of : Yes Caregiver verified no other encounters exist for this prescription request: Yes Caregiver confirmed with patient/requestor that no other refills are due, in the near future, with this provider at this time: Yes The last office visit in the department: 02-21-24 Does the patient have a future office visit with this provider/department: Yes Requested Prescriptions Pending Prescriptions Disp Refills atenolol (TENORMIN) 25 mg tablet 90 tablet 3 Sig: Take 1 tablet by mouth once daily. Maite Molina March 29, 2024 2:[address] [facility] 03-29-2024 Miscellaneous Notes Prescription Refill Information The patient has been identified by name and date of : Yes Caregiver verified no other encounters exist for this prescription request: Yes Caregiver confirmed with patient/requestor that no other refills are due, in the near future, with this provider at this time: Yes The last office visit in the department: 02-21-24 Does the patient have a future office visit with this provider/department: Yes Requested Prescriptions Pending Prescriptions Disp Refills atenolol (TENORMIN) 25 mg tablet 90 tablet 3 Sig: Take 1 tablet by mouth once daily. Maite Molina March 29, 2024 2:44 PM documented in this encounter [facility] 02-21-2024 Instructions Cee Christianson MD - 02/21/2024 9:43 AM EDT Images from the original note were not included. Bowel Preparation Instructions for: Miralax-Gatorade Preparations IF YOU DO NOT FOLLOW THESE DIRECTIONS, YOUR COLONOSCOPY WILL BE CANCELLED. Porter Instructions: Your bowel must be empty so that your doctor can clearly view your colon. Follow all of the instructions in this handout EXACTLY as they are written. Do NOT eat any solid food the ENTIRE day before your colonoscopy. Buy your bowel preparation at least 5 days before your colonoscopy. Four (4) Dulcolax laxative tablets containing 5mg of bisacodyl each (NOT Dulcolax stool softener) One (1) 8.3oz. bottle Miralax (238 grams) or generic equivalent 2 x 32oz. Bottles of Gatorade (NOT RED) Diabetic Patients: Use G2 (Gatorade 2) TRANSPORTATION on the Day of Your Exam A responsible adult MUST be present with you at Check In prior to your colonoscopy and REMAIN in the endoscopy area until you are discharged. You are NOT ALLOWED to drive, take a taxi or bus, or leave the Endoscopy Center ALONE. If you do not have a responsible new car driver (family member or friend) with you to take you home, your exam cannot be done with sedation and will be cancelled. Please bring a list of all of your current medications, including any Zqko-veg-Nmftxqo medications with you. Medications If you take insulin, diabetic medications or blood thinners such as Coumadin (warfarin), Plavix (clopidogrel), Ticlid (ticlopidine hydrochloride), Agrylin (anagrelide), Xarelto (Rivaroxaban), Pradaxa (Dabigatran), Eliquis (Apixaban), and Effient (Prasugrel). You MUST call the doctors who orders those medicines for instructions on altering the dosage before your colonoscopy. All other medications should be taken the day of the exam with a sip of water including ASPIRIN. Five (5) Days Before Your Colonoscopy Do NOT take medicines that stop diarrhea - such as Imodium, Kaopectate, or Pepto Bismol. Do NOT take fiber supplements - such as Metamucil, Citrucel, or Perdiem. Do NOT take products that contain iron - such as multi-vitamins (the label lists what is in the products). Three (3) Days Before Your Colonoscopy Do NOT eat high-fiber foods - such as popcorn, beans, seeds (flax, sunflower, quinoa), multigrain bread, nuts, salad/vegetables, or fresh and dried fruit. 1 Bowel Preparation Instructions for: Miralax-Gatorade Preparations One (1) Day Before Your Colonoscopy Only drink clear liquids the ENTIRE DAY before your colonoscopy. Do NOT eat any solid foods. Drink at least 8 ounces of clear liquids every hour after waking up. The clear liquids you can drink include: Clear Liquid (NO RED LIQUIDS) DO NOT DRINK Gatorade, Pedialyte or Powerade Clear broth or bouillon Coffee or tea (no milk or non-dairy creamer) Carbonated and non-carbonated soft drinks Bebo-Aid or other fruit flavored drinks Strained fruit juices (no pulp) Jell-O, popsicles, hard candy Water Alcohol Milk or non-dairy creamers Noodles or vegetables in soup Juice with pulp Liquid you cannot see through Do not use tobacco/vaping products Mix 1/2 of Miralax bottle (119 grams) in each 32 ounces of Gatorade bottle until dissolved. Keep cool in the refrigerator. DO NOT ADD ICE. The bowel preparation solution will be consumed in two parts. Part 1 5:00 PM - Evening before your colonoscopy Take 4 Dulcolax tablets. 6 PM - Evening before your colonoscopy Drink 32 oz. of the mixed solution. Drink an 8 oz. glass of bowel preparation every 15 minutes for a total of 4 glasses. Fifteen (15) minutes later, drink an 8 oz. glass of of clear liquids every 15 minutes for a total of 2 glasses. You may continue to drink clear liquids till midnight. Part 2 On the day of your colonoscopy you may drink clear liquids up to (three) 3 hours prior to procedure. 4 1/2 hours before your colonoscopy Take another 32 oz. bottle of mixed solution. Drink an 8 oz. glass of bowel prep every 15 minutes for a total of 4 glasses. Fifteen (15) minutes later, drink an 8 oz. glass of clear liquids every 15 minutes for a total of 2 glasses. You may continue to drink clear liquids up to (three) 3 hours before your exam. 2 07/2019 documented in this encounter [facility] 02-21-2024 Note HNO ID: [id number] Author: CEE CHRISTIANSON MD Service: ? Author Type: Physician Type: Progress Notes Filed: 02/22/2024 00:05 Note Text: This note was created using [employer]. Subjective Susan Calderon is a 68 year old female. Patient presents with: F/U 6 months SUBJECTIVE: Susan Calderon is a 68 year old year old lady here today for 6 month follow up appointment for review of medical conditions. At home her scale says 219lbs this AM in same clothes as wearing now. Has been losing weight dieting. Protein mix that uses as a meal replacement. 30 grams per serving and takes twice daily. Something small for supper. Found a website to help decide on what to eat to limit meals to how ever many grams of carbs or protein. Avoiding things that has hard time limiting. Has been taking extra iron pill. Still taking now. Noted has been using salt substitute since thought sodium was high before Reviewed records--no high sodium here. PAST MEDICAL HISTORY Diagnosis Date Allergic rhinitis, cause unspecified Allergic rhinitis Carpal tunnel syndrome Degeneration of intervertebral disc, site unspecified Depressive disorder, not elsewhere classified Esophageal reflux Generalized anxiety disorder Anxiety, Generalized Generalized osteoarthrosis, unspecified site Hypercholesteremia Unspecified essential hypertension Current Outpatient Medications Medication Sig lisinopril (ZESTRIL) 40 mg tablet Take 1 tablet by mouth once daily. DOSE CHANGE - TAKE ONE DAILY atorvastatin (LIPITOR) 10 mg tablet Take 1 tablet by mouth daily at bedtime. montelukast (SINGULAIR) 10 mg tablet Take 1 tablet by mouth daily at bedtime. omega-3 DHA-EPA (FISH OIL) 1,200 (144-216) mg capsule Take 1 capsule by mouth daily with breakfast. D3/red wine/resveratrol/malt (SUPER-D3+ ORAL) Take 1 Each by mouth once daily. magnesium oxide 400 mg magnesium tab Take 1 Each by mouth once daily. niacin (NIACIN) 500 mg tablet Take 500 mg by mouth daily with breakfast. aspirin 81 mg chewable tablet Take 81 mg by mouth once daily. calcium carbonate/vitamin D3 (CALCIUM WITH VITAMIN D ORAL) Take by mouth. 1200 with 1000 of D OTC NUTRITIONAL SUPPLEMENT Prevagen glucosamine/chondroitin/C/Juice (GLUCOSAMINE-CHONDROITIN COMPLX ORAL) Take by mouth. (Patient not taking: Reported on 12/17/2023) naproxen sodium (ANAPROX) 220 mg tablet Take 220 mg by mouth once daily as needed. acetaminophen/diphenhydramine (PM PAIN RELIEF ORAL) Take by mouth. cyclobenzaprine (FLEXERIL) 5 mg tablet Take 1-2 tablets by mouth three times a day as needed (cramping and muscle spasm). atenolol (TENORMIN) 25 mg tablet Take 1 tablet by mouth once daily. VITAMIN E ORAL Take 1 capsule by mouth once daily. vitamin B complex (SUPER B COMPLEX ORAL) Take 1 tablet by mouth once daily. ferrous sulfate 325 mg (65 mg iron) tablet Take 325 mg by mouth once daily. ascorbic acid, vitamin C, (VITAMIN C) 500 mg tablet Take 500 mg by mouth once daily. fluticasone (FLONASE) 50 mcg/actuation nasal spray SPRAY 2 SPRAYS INTO EACH NOSTRIL ONCE DAILY - RINSE MOUTH AFTER USE fluticasone-salmeterol (ADVAIR DISKUS) 250-50 mcg/dose inhaler Inhale 1 Puff as instructed twice daily. albuterol HFA (PROVENTIL HFA) 90 mcg/actuation inhaler Inhale 2 Puffs as instructed every 4 hours as needed for wheezing/shortness of breath. No current facility-administered medications for this visit. Review of Systems Objective BP 130/62 (BP Site: Left Arm, BP Position: Sitting, BP Cuff Size: Large Adult) Pulse 67 Temp 36.3 ?C (97.4 ?F) Resp 16 Ht 168.9 cm (5' 6.5) Wt 107.5 kg (237 lb) SpO2 96% BMI 37.68 kg/m? Physical Exam Constitutional: Appearance: Normal appearance. She is obese. HENT: Head: Normocephalic. Eyes: Conjunctiva/sclera: Conjunctivae normal. Cardiovascular: Rate and Rhythm: Normal rate and regular rhythm. Heart sounds: Normal heart sounds. Pulmonary: Effort: Pulmonary effort is normal. Breath sounds: Normal breath sounds. Musculoskeletal: Right lower leg: No edema. Left lower leg: No edema. Skin: General: Skin is warm and dry. Neurological: General: No focal deficit present. Mental Status: She is alert and oriented to person, place, and time. Psychiatric: Mood and Affect: Mood normal. Behavior: Behavior normal. Thought Content: Thought content normal. Judgment: Judgment normal. Latest Ref Rng 05/24/2021 12/18/2021 06/20/2022 03/29/2023 02/18/2024 WBC 3.70 - 11.00 k/uL 6.45 8.04 6.78 5.09 RBC 3.90 - 5.20 m/uL 3.68 (L) 3.66 (L) 3.85 (L) 4.28 Hemoglobin 11.5 - 15.5 g/dL 12.3 12.3 12.5 13.1 Hematocrit 36.0 - 46.0 % 37.9 38.0 38.8 40.8 MCV 80.0 - 100.0 fL 103.0 (H) 103.8 (H) 100.8 (H) 95.3 MCH 26.0 - 34.0 pg 33.4 33.6 32.5 30.6 MCHC 30.5 - 36.0 g/dL 32.5 32.4 32.2 32.1 RDW-CV 11.5 - 15.0 % 12.3 12.5 12.8 12.8 Platelet Count 150 - 400 k/uL 264 272 308 229 MPV 9.0 - 12.7 fL 9.8 10.2 9.8 11.0 Neut% % 57.0 Abs Kyle (more content not included)... [facility] 02-21-2024 History of Present illness Narrative This note was created using [employer]. Subjective Susan Calderon is a 68 year old female. Patient presents with: F/U 6 months SUBJECTIVE: Susan Calderon is a 68 year old year old lady here today for 6 month follow up appointment for review of medical conditions. At home her scale says 219lbs this AM in same clothes as wearing now. Has been losing weight dieting. Protein mix that uses as a meal replacement. 30 grams per serving and takes twice daily. Something small for supper. Found a website to help decide on what to eat to limit meals to how ever many grams of carbs or protein. Avoiding things that has hard time limiting. Has been taking extra iron pill. Still taking now. Noted has been using salt substitute since thought sodium was high before Reviewed records--no high sodium here. PAST MEDICAL HISTORY Diagnosis Date Allergic rhinitis, cause unspecified Allergic rhinitis Carpal tunnel syndrome Degeneration of intervertebral disc, site unspecified Depressive disorder, not elsewhere classified Esophageal reflux Generalized anxiety disorder Anxiety, Generalized Generalized osteoarthrosis, unspecified site Hypercholesteremia Unspecified essential hypertension Current Outpatient Medications Medication Sig lisinopril (ZESTRIL) 40 mg tablet Take 1 tablet by mouth once daily. DOSE CHANGE - TAKE ONE DAILY atorvastatin (LIPITOR) 10 mg tablet Take 1 tablet by mouth daily at bedtime. montelukast (SINGULAIR) 10 mg tablet Take 1 tablet by mouth daily at bedtime. omega-3 DHA-EPA (FISH OIL) 1,200 (144-216) mg capsule Take 1 capsule by mouth daily with breakfast. D3/red wine/resveratrol/malt (SUPER-D3+ ORAL) Take 1 Each by mouth once daily. magnesium oxide 400 mg magnesium tab Take 1 Each by mouth once daily. niacin (NIACIN) 500 mg tablet Take 500 mg by mouth daily with breakfast. aspirin 81 mg chewable tablet Take 81 mg by mouth once daily. calcium carbonate/vitamin D3 (CALCIUM WITH VITAMIN D ORAL) Take by mouth. 1200 with 1000 of D OTC NUTRITIONAL SUPPLEMENT Prevagen glucosamine/chondroitin/C/Juice (GLUCOSAMINE-CHONDROITIN COMPLX ORAL) Take by mouth. (Patient not taking: Reported on 12/17/2023) naproxen sodium (ANAPROX) 220 mg tablet Take 220 mg by mouth once daily as needed. acetaminophen/diphenhydramine (PM PAIN RELIEF ORAL) Take by mouth. cyclobenzaprine (FLEXERIL) 5 mg tablet Take 1-2 tablets by mouth three times a day as needed (cramping and muscle spasm). atenolol (TENORMIN) 25 mg tablet Take 1 tablet by mouth once daily. VITAMIN E ORAL Take 1 capsule by mouth once daily. vitamin B complex (SUPER B COMPLEX ORAL) Take 1 tablet by mouth once daily. ferrous sulfate 325 mg (65 mg iron) tablet Take 325 mg by mouth once daily. ascorbic acid, vitamin C, (VITAMIN C) 500 mg tablet Take 500 mg by mouth once daily. fluticasone (FLONASE) 50 mcg/actuation nasal spray SPRAY 2 SPRAYS INTO EACH NOSTRIL ONCE DAILY - RINSE MOUTH AFTER USE fluticasone-salmeterol (ADVAIR DISKUS) 250-50 mcg/dose inhaler Inhale 1 Puff as instructed twice daily. albuterol HFA (PROVENTIL HFA) 90 mcg/actuation inhaler Inhale 2 Puffs as instructed every 4 hours as needed for wheezing/shortness of breath. No current facility-administered medications for this visit. Review of Systems Objective BP 130/62 (BP Site: Left Arm, BP Position: Sitting, BP Cuff Size: Large Adult) Pulse 67 Temp 36.3 C (97.4 F) Resp 16 Ht 168.9 cm (5' 6.5) Wt 107.5 kg (237 lb) SpO2 96% BMI 37.68 kg/m Physical Exam Constitutional: Appearance: Normal appearance. She is obese. HENT: Head: Normocephalic. Eyes: Conjunctiva/sclera: Conjunctivae normal. Cardiovascular: Rate and Rhythm: Normal rate and regular rhythm. Heart sounds: Normal heart sounds. Pulmonary: Effort: Pulmonary effort is normal. Breath sounds: Normal breath sounds. Musculoskeletal: Right lower leg: No edema. Left lower leg: No edema. Skin: General: Skin is warm and dry. Neurological: General: No focal deficit present. Mental Status: She is alert and oriented to person, place, and time. Psychiatric: Mood and Affect: Mood normal. Behavior: Behavior normal. Thought Content: Thought content normal. Judgment: Judgment normal. Latest Ref Rng 05/24/2021 12/18/2021 06/20/2022 03/29/2023 02/18/2024 WBC 3.70 - 11.00 k/uL 6.45 8.04 6.78 5.09 RBC 3.90 - 5.20 m/uL 3.68 (L) 3.66 (L) 3.85 (L) 4.28 Hemoglobin 11.5 - 15.5 g/dL 12.3 12.3 12.5 13.1 Hematocrit 36.0 - 46.0 % 37.9 38.0 38.8 40.8 MCV 80.0 - 100.0 fL 103.0 (H) 103.8 (H) 100.8 (H) 95.3 MCH 26.0 - 34.0 pg 33.4 33.6 32.5 30.6 MCHC 30.5 - 36.0 g/dL 32.5 32.4 32.2 32.1 RDW-CV 11.5 - 15.0 % 12.3 12.5 12.8 12.8 Platelet Count 150 - 400 k/uL 264 272 308 229 MPV 9.0 - 12.7 fL 9.8 10.2 9.8 11.0 Neut% % 57.0 Abs Neut (ANC) 1.45 - 7.50 k/uL 2.90 Lymph% % 29.5 Abs Lymph 1.00 - 4.00 k/uL 1.50 [place]ajo% % 9.0 Abs [place] <0.87 k/uL 0.46 Eosin% % 3.1 Abs Eosin <0.46 k/uL 0.16 Baso% % 1.2 Abs Baso <0.11 k/uL 0.06 Immature Gran % % 0.2 IMMATURE GRANS (ABS) <0.10 k/uL <0.03 NRBC /100 WBC 0.0 Absolute nRBC <0.01 k/uL <0.01 <0.01 <0.01 <0.01 DTYPE Auto Protein, Total 6.3 - 8.0 g/dL 7.1 6.7 7.3 6.9 Albumin 3.9 - 4.9 g/dL 4.2 3.9 3.9 4.1 Calcium 8.5 - 10.2 mg/dL 9.2 9.4 9.3 9.0 Bilirubin, Total 0.2 - 1.3 mg/dL 0.3 0.2 0.3 0.3 Alkaline Phosphatase 34 - 123 U/L 82 76 66 82 AST 13 - 35 U/L 25 27 30 36 (H) Glucose 74 - 99 mg/dL 92 98 96 98 BUN 7 - 21 mg/dL 6 (L) 16 15 15 Creatinine 0.58 - 0.96 mg/dL 0.56 (L) 0.82 0.72 0.84 Sodium 136 - 144 mmol/L 136 137 140 131 (L) Potassium 3.7 - 5.1 mmol/L 4.1 4.4 4.1 4.9 Chloride 98 - 107 mmol/L 100 104 105 97 (L) CO2 22 - 30 mmol/L 23 23 25 20 (L) Anion Gap 8 - 15 mmol/L 13 10 10 14 ALT 7 - 38 U/L 14 16 21 21 eGFR- >60 eGFR-All Other Races . >60 eGFR >=60 mL/min/1.73m 79 91 75 Cholesterol, Total <200 mg/dL 174 170 173 114 Triglyceride <150 mg/dL 53 61 100 57 HDL Cholesterol >39 mg/dL 97 89 77 57 Non HDL Cholesterol <130 mg/dL 77 81 96 57 Fasting Time hrs 14 10 12 13 VLDL Cholesterol <30 mg/dL 11 12 20 11 TC:HDL Ratio <5.10 1.79 1.91 2.25 2.00 LDL Cholesterol <100 mg/dL 66 69 76 46 LDL:HDL Ratio <2.54 0.68 0.78 0.99 0.81 Total Cholesterol, Nonfasting <200 mg/dL 204 (H) Triglycerides, Nonfasting <150 mg/dL 47 HDL Cholesterol, Nonfasting >39 mg/dL 111 LDL Cholesterol, Nonfasting <100 mg/dL 84 Non HDL Cholesterol, Nonfasting <130 mg/dL 93 VLDL Cholesterol, Nonfasting <30 mg/dL 9 Total Chol/HDL Ratio, Nonfasting <5.10 mg/dL 1.84 LDL/HDL Ratio, Nonfasting <2.54 mg/dL 0.76 Iron 41 - 186 ug/dL 71 56 TIBC 232 - 386 ug/dL 305 293 Transferrin Saturation 15.0 - 57.0 % 23.3 19.1 Vitamin D 25 Hydroxy 31.0 - 80.0 ng/mL 36.4 52.2 Vitamin B12 232 - 1,245 pg/mL 561 673 Folate >4.7 ng/mL >20.0 Ferritin 14.7 - 205.1 ng/mL 249.0 (H) 363.0 (H) Magnesium 1.7 - 2.3 mg/dL 1.9 Legend: (L) Low (H) High Assessment and Plan Encounter Diagnosis ICD-10-CM 1. Primary hypertension I10 COMPREHENSIVE METABOLIC PANEL COMPLETE BLOOD COUNT Fair control. Continue present management 2. Allergic rhinitis, unspecified seasonality, unspecified trigger J30.9 montelukast (SINGULAIR) 10 mg tablet Continue Singulair. Adjust meds as needed 3. Hypercholesteremia E78.00 Lipids fine. Continue present management with atorvastatin 4. Elevated ferritin R79.89 FERRITIN Can cut out iron pills for now and get iron from diet. Monitor labs 5. Class 2 obesity due to excess calories with body mass index (BMI) of 37.0 to 37.9 in adult, unspecified whether serious comorbidity present E66.09 Z68.37 Continue present management with portion control, limiting carbs and pop, getting more protein.Start increasing exercise as discussed 6. Osteopenia of both hips M85.851 VITAMIN D 25 HYDROXY M85.852 Management (calcium, Vitamin D, weight bearing exercise) and follow up BMD. Further evaluation and treatment as indicated 7. Encounter for long-term current use of medication Z79.899 COMPREHENSIVE METABOLIC PANEL COMPLETE BLOOD COUNT LIPID PANEL BASIC FERRITIN VITAMIN B12 VITAMIN D 25 HYDROXY MAGNESIUM 8. Screening for colon cancer Z12.11 COLONOSCOPY SCREENING Above issues addressed with patient. Patient involved in shared decision making for management of medical issues. History and medications reviewed. Epic updated as needed Refills and/or prescriptions taken care of and meds adjusted as indicated after reviewed history, exam and labs. Health Maintenance reviewed. Updated record and/or ordered tests as recorded. Encouraged on efforts at healthy diet and regular exercise and adequate sleep. Started some walking. Encouraged to regular exercise, up to 30 minutes 5 days a week. I spent a total of 39 minutes on the date of the service which included [id number] patient care, completing clinical documentation, obtaining and/or reviewing separately obtained history, performing a medically appropriate examination, counseling and educating the patient/family/caregiver, ordering medications, tests, or procedures, independently interpreting results (not separately reported), and communicating results to the patient/family/caregiver. Cee Christianson MD documented in this encounter [facility] 02-16-2024 Note Patient Outreach (IN [facility]) SUSAN CALDERON ([id number]) 1955 F TXT Date Time Provider Department 02/16/24 [facility] During your visit today, we recorded the following information about you: Allergies As of Date: 02/16/2024 Noted Allergy Reaction CEPHALOSPORINS 02/27/2019 12 - Shortness of Breath PENICILLINS 04/17/2005 10 - Anaphylaxis 12 - Shortness of Breath Comments: rash DOXYCYCLINE 02/27/2019 14 - Other: See Comments Comments: Teeth discoloration ENTEX PSE (PSEUDOEPHEDRINE-GUAIFE*04/17/2005 5 - Intolerance Comments: insomnia,jittery LEVAQUIN (LEVOFLOXACIN) 04/17/2005 14 - Other: See Comments Comments: muscle pain, heel pain (plantar side) RELAFEN (NABUMETONE) 04/17/2005 7 - Swelling Date Reviewed: 12/17/2023 Reviewed by: Edgard Dubois PA-C - Fully Assessed Visit Diagnosis:Encounter for screening mammogram for breast cancer [Z12.31] Order(s):[facility] SCREENING W KEVIN [[id number]] Order #: [id number] FUTURE Prescriptions as of 02/21/2024 - lisinopril (ZESTRIL) 40 mg tablet Take 1 tablet by mouth once daily. DOSE CHANGE - TAKE ONE DAILY - atorvastatin (LIPITOR) 10 mg tablet Take 1 tablet by mouth daily at bedtime. - montelukast (SINGULAIR) 10 mg tablet Take 1 tablet by mouth daily at bedtime. - omega-3 DHA-EPA (FISH OIL) 1,200 (144-216) mg capsule Take 1 capsule by mouth daily with breakfast. - D3/red wine/resveratrol/malt (SUPER-D3+ ORAL) Take 1 Each by mouth once daily. - magnesium oxide 400 mg magnesium tab Take 1 Each by mouth once daily. - niacin (NIACIN) 500 mg tablet Take 500 mg by mouth daily with breakfast. - aspirin 81 mg chewable tablet Take 81 mg by mouth once daily. - calcium carbonate/vitamin D3 (CALCIUM WITH VITAMIN D ORAL) Take by mouth. 1200 with 1000 of D - OTC NUTRITIONAL SUPPLEMENT Prevagen - glucosamine/chondroitin/C/Juice (GLUCOSAMINE-CHONDROITIN COMPLX ORAL) Take by mouth. - naproxen sodium (ANAPROX) 220 mg tablet Take 220 mg by mouth once daily as needed. - acetaminophen/diphenhydramine (PM PAIN RELIEF ORAL) Take by mouth. - cyclobenzaprine (FLEXERIL) 5 mg tablet Take 1-2 tablets by mouth three times a day as needed (cramping and muscle spasm). - atenolol (TENORMIN) 25 mg tablet Take 1 tablet by mouth once daily. - VITAMIN E ORAL Take 1 capsule by mouth once daily. - vitamin B complex (SUPER B COMPLEX ORAL) Take 1 tablet by mouth once daily. - ferrous sulfate 325 mg (65 mg iron) tablet Take 325 mg by mouth once daily. - ascorbic acid, vitamin C, (VITAMIN C) 500 mg tablet Take 500 mg by mouth once daily. - fluticasone (FLONASE) 50 mcg/actuation nasal spray SPRAY 2 SPRAYS INTO EACH NOSTRIL ONCE DAILY - RINSE MOUTH AFTER USE - fluticasone-salmeterol (ADVAIR DISKUS) 250-50 mcg/dose inhaler Inhale 1 Puff as instructed twice daily. - albuterol HFA (PROVENTIL HFA) 90 mcg/actuation inhaler Inhale 2 Puffs as instructed every 4 hours as needed for wheezing/shortness of breath. Problem List As Of Date 02/16/2024 Noted Resolved Depressive disorder, not elsewhere classified [*04/17/2005 01/26/2021 Primary hypertension [I10] 04/17/2005 ANXIETY STATE NOS [F41.1] 04/18/2005 GENERALIZED ANXIETY DIS [F41.1] CARPAL TUNNEL SYNDROME [G56.00] GENERAL OSTEOARTHROSIS [M15.9] ESOPHAGEAL REFLUX [K21.9] ENLARGEMENT LYMPH NODES [R59.9] 05/31/2006 Asthma [J45.909] 06/14/2006 Degeneration of lumbar intervertebral disc [M51* Dysmetabolic syndrome [E88.810] 07/31/2011 Pruritus--back [L29.9] 02/19/2012 Candidal intertrigo [B37.2] 02/19/2012 Hypercholesteremia [E78.00] Small bowel obstruction (HCC) [K56.609] 07/30/2017 S/P small bowel resection [Z90.49] 07/30/2017 Cigarette smoker [F17.210] 11/16/2018 Obesity, Class II, BMI 35-39.9 [E66.9] 12/18/2022 Osteopenia of both hips [M85.851, M85.852] 02/19/2023 Macrocytic anemia [D53.9] 02/19/2023 Allergic rhinitis [J30.9] 02/19/2023 Encounter Status:Closed by MICHAEL MIRANDA on 02/21/24 [facility] 02-01-2024 Telephone encounter Note TC to patient who is notified paperwork has been placed in medical records for pick up operator. RIGOBERTO Lafleur [facility] 02-01-2024 Miscellaneous Notes TC to patient who is notified paperwork has been placed in medical records for pick up operator. RIGOBERTO Lafleur I will print this. Pt calling to see if she can get a paper that was given to her maybe last visit that had a list of foods to eat, examples and quantity. Pt reports the list had proteins listed and what the carbs and calories were on certain food that she should be eating. She has misplaced this paper and reports it was helping her loose weight. ice she has not been able to find she is now not losing much weight. Please call pt and she will stop in and pick up operator. Elke Gregorio LPN documented in this encounter [facility] 02-01-2024 Telephone encounter Note I will print this. [facility] 02-01-2024 Telephone encounter Note Pt calling to see if she can get a paper that was given to her maybe last visit that had a list of foods to eat, examples and quantity. Pt reports the list had proteins listed and what the carbs and calories were on certain food that she should be eating. She has misplaced this paper and reports it was helping her loose weight. ice she has not been able to find she is now not losing much weight. Please call pt and she will stop in and pick up operator. Elke Gregorio LPN [facility] 01-18-2024 Telephone encounter Note Pt notified and verbalized understanding. Sole Morris MA [facility] 01-18-2024 Miscellaneous Notes Pt notified and verbalized understanding. Sole Morris MA Fasting lipid panel ordered. Do with all other labs ordered. Pt saw Thuy Stewart on 12/14/23. Pt states Thuy hand wrote some information on a piece of paper regarding what pt should eat and what OTC vitamins she should continue and ones she doesn't need to be taking. Pt cannot find that paper anywhere and is wondering if Thuy would remember that information. Appears Thuy wanted pt to get some labs done so reminded pt of that. Pt has 2 sets of lab orders in. One from Thuy and one from Dr. Christianson for February. Pt has a f/u appt with Dr. Christianson on February 20. The only difference in the labs is a lipid panel which is dated for 03/14/24. Pended a lipid profile so pt can get all labs drawn now. Cancelled other set of orders as they were duplicates. Pt is wondering if Thuy would still remember what she wrote down for pt as far as foods she should be eating and foods she should avoid. Also what OTC meds pt should continue and ones she should stop. Explained to pt that Thuy is out this week and it appears that she wanted pt to get her labs drawn. That will help Thuy to decide about what OTC vitamins and meds pt should take. Pt would like to get labs drawn this week. Please call pt when order signed for lipid panel so she can come in and get that drawn. Call pt on her cell phone [phone]. documented in this encounter [facility] 01-18-2024 Telephone encounter Note Fasting lipid panel ordered. Do with all other labs ordered. [facility] Work Phone: 01-18-2024 History of Present illness Narrative Pt had 2 sets of orders in by 2 different providers. One set discontinued. Order for lipid panel placed to have drawn with other labs. documented in this encounter [facility] 01-18-2024 Telephone encounter Note Pt saw Thuy Stewart on 12/14/23. Pt states Thuy hand wrote some information on a piece of paper regarding what pt should eat and what OTC vitamins she should continue and ones she doesn't need to be taking. Pt cannot find that paper anywhere and is wondering if Thuy would remember that information. Appears Thuy wanted pt to get some labs done so reminded pt of that. Pt has 2 sets of lab orders in. One from Thuy and one from Dr. Christianson for February. Pt has a f/u appt with Dr. Christianson on February 20. The only difference in the labs is a lipid panel which is dated for 03/14/24. Pended a lipid profile so pt can get all labs drawn now. Cancelled other set of orders as they were duplicates. Pt is wondering if hTuy would still remember what she wrote down for pt as far as foods she should be eating and foods she should avoid. Also what OTC meds pt should continue and ones she should stop. Explained to pt that Thuy is out this week and it appears that she wanted pt to get her labs drawn. That will help Thuy to decide about what OTC vitamins and meds pt should take. Pt would like to get labs drawn this week. Please call pt when order signed for lipid panel so she can come in and get that drawn. Call pt on her cell phone [phone]. [facility] 01-14-2024 Telephone encounter Note Patient has been identified by name and date of : Yes, Provider Dr. Christianson Date 01/14/2024 Time 9:17 AM Patient phones for refill(s): Requested Prescriptions Pending Prescriptions Disp Refills lisinopril (ZESTRIL) 40 mg tablet 90 tablet 2 Sig: Take 1 tablet by mouth once daily. DOSE CHANGE - TAKE ONE DAILY Date of last office visit in primary care: Visit date not found Date of next office visit in primary care: Visit date not found Please advise. Thank you. Joan Neal. [facility] 01-14-2024 Miscellaneous Notes Patient has been identified by name and date of : Yes, Provider Dr. Christianson Date 01/14/2024 Time 9:17 AM Patient phones for refill(s): Requested Prescriptions Pending Prescriptions Disp Refills lisinopril (ZESTRIL) 40 mg tablet 90 tablet 2 Sig: Take 1 tablet by mouth once daily. DOSE CHANGE - TAKE ONE DAILY Date of last office visit in primary care: Visit date not found Date of next office visit in primary care: Visit date not found Please advise. Thank you. Joan Neal. documented in this encounter [facility] 12-17-2023 History of Present illness Narrative Associated Order(s): Large Joint Arthro/Inj: L knee joint Post-Procedure Diagnose(s): Primary osteoarthritis of left knee HISTORY OF PRESENT ILLNESS: Susan is a 68 year old female. She is here for evaluation of Left knee pain. Injury:Yes, fall in her kitchen approximately 1 year ago with direct impact into the left knee Pain: Yes LOCATION: Left medial knee PAIN SCALE: 6 on a scale of 0-10 PAIN CHARACTER: aching and shooting DURATION: (How long have you had the pain?) 1 years AGGRAVATING FACTORS: activity, walking, and stairs ALLEVIATING FACTORS: resting Onset: gradual and progressive Quality:aching and shooting Swelling: Patient notes intermittent swelling of the joint. Mechanical symptoms: None Radiation: No Activities: Walking Restriction: None Progression: Constant Previous treatment: Tylenol, Aleve, knee brace NSAIDS: Aleve PT:No physical therapy program has been initiated. MEDICATIONS Current Outpatient Medications on File Prior to Visit Medication Sig atorvastatin (LIPITOR) 10 mg tablet Take 1 tablet by mouth daily at bedtime. montelukast (SINGULAIR) 10 mg tablet Take 1 tablet by mouth daily at bedtime. omega-3 DHA-EPA (FISH OIL) 1,200 (144-216) mg capsule Take 1 capsule by mouth daily with breakfast. magnesium oxide 400 mg magnesium tab Take 1 Each by mouth once daily. niacin (NIACIN) 500 mg tablet Take 500 mg by mouth daily with breakfast. aspirin 81 mg chewable tablet Take 81 mg by mouth once daily. calcium carbonate/vitamin D3 (CALCIUM WITH VITAMIN D ORAL) Take by mouth. 1200 with 1000 of D OTC NUTRITIONAL SUPPLEMENT Prevagen naproxen sodium (ANAPROX) 220 mg tablet Take 220 mg by mouth once daily as needed. acetaminophen/diphenhydramine (PM PAIN RELIEF ORAL) Take by mouth. cyclobenzaprine (FLEXERIL) 5 mg tablet Take 1-2 tablets by mouth three times a day as needed (cramping and muscle spasm). lisinopril (ZESTRIL) 40 mg tablet Take 1 tablet by mouth once daily. DOSE CHANGE - TAKE ONE DAILY atenolol (TENORMIN) 25 mg tablet Take 1 tablet by mouth once daily. VITAMIN E ORAL Take 1 capsule by mouth once daily. vitamin B complex (SUPER B COMPLEX ORAL) Take 1 tablet by mouth once daily. ferrous sulfate 325 mg (65 mg iron) tablet Take 325 mg by mouth once daily. ascorbic acid, vitamin C, (VITAMIN C) 500 mg tablet Take 500 mg by mouth once daily. fluticasone (FLONASE) 50 mcg/actuation nasal spray SPRAY 2 SPRAYS INTO EACH NOSTRIL ONCE DAILY - RINSE MOUTH AFTER USE fluticasone-salmeterol (ADVAIR DISKUS) 250-50 mcg/dose inhaler Inhale 1 Puff as instructed twice daily. albuterol HFA (PROVENTIL HFA) 90 mcg/actuation inhaler Inhale 2 Puffs as instructed every 4 hours as needed for wheezing/shortness of breath. D3/red wine/resveratrol/malt (SUPER-D3+ ORAL) Take 1 Each by mouth once daily. glucosamine/chondroitin/C/Juice (GLUCOSAMINE-CHONDROITIN COMPLX ORAL) Take by mouth. (Patient not taking: Reported on 12/17/2023) No current facility-administered medications on file prior to visit. ALLERGIES ALLERGIES Allergen Reactions Cephalosporins Shortness of Breath Penicillins Anaphylaxis, Shortness of Breath rash Doxycycline Other: See Comments Teeth discoloration Entex Pse [Pseudoep* Intolerance insomnia,jittery Levaquin [Levofloxa* Other: See Comments muscle pain, heel pain (plantar side) Relafen [Nabumetone] Swelling PAST MEDICAL HISTORY PAST MEDICAL HISTORY Diagnosis Date Allergic rhinitis, cause unspecified Allergic rhinitis Carpal tunnel syndrome Degeneration of intervertebral disc, site unspecified Depressive disorder, not elsewhere classified Esophageal reflux Generalized anxiety disorder Anxiety, Generalized Generalized osteoarthrosis, unspecified site Hypercholesteremia Unspecified essential hypertension PAST SURGICAL HISTORY PAST SURGICAL HISTORY Procedure Laterality Date COLONOSCOPY FLX DX W/COLLJ SPEC WHEN PFRMD 02/07/14 Colonoscopy LIG/TRNSXJ FLP TUBE ABDL/VAG APPR UNI/BI Tubal ligation PAST SURGICAL HISTORY OF 09/2002 spinal fusion lumbar L3-S1 PAST SURGICAL HISTORY OF 1998 bilateral heel spurs PAST SURGICAL HISTORY OF 2002 debridment lumbar surgical site- staph TOTAL ABDOMINAL HYSTERECT W/WO RMVL TUBE OVARY 03/2002 Hysterectomy, SOFI SOCIAL HISTORY Tobacco: Ex-smoker, quit 1.5 years ago FAMILY HISTORY Does a similar condition to what you are experiencing run in your family? No REVIEW OF SYSTEMS: All other systems negative. PHYSICAL EXAM: PE: All other systems deferred. GENERAL: Appears healthy, well-nourished, no deformities. HABITUS: Obese Gait: Antalgic to the left Left: Alignment: Varus deformity, Correctable Range of motion is 0 degrees in extension and 120 degrees of flexion. Extension La degrees Pain with ROM: Yes Effusion: Slight Tender to the palpation of Medial femoral condyle, Lateral femoral condyle, Medial joint line, and Lateral joint line Pain with patellar compression: Yes Stability: Anterior/Posterior stable and Varus/Valgus stable Hip Exam: flexion to 100+ degrees, full extension, internal/external rotation adequate, and no pain with log roll Neurovascular Status: Sensation Intact, Moves foot and ankle up & down, and 2+ dorsalis pedis Strength: 5 Skin: Normal RADIOGRAPHS (personally reviewed): Severe left knee osteoarthritis predominantly in the medial compartment with [id number] articulation MRI: None DIAGNOSIS Encounter Diagnosis ICD-10-CM 1. Chronic pain of left knee M25.562 G89.29 PLAN Patient has severe left knee osteoarthritis. Treatment options were discussed today. We had an extended discussion regarding conservative options related to cortisone injections versus surgical intervention with total knee replacement. Today we opted for intra-articular cortisone injection to the left knee. We also discussed that weight loss measures to help offload the knee and help with pain. Follow-up as symptoms dictate. I spent a total of 30 minutes on the date of the service which included preparing to see the patient, [id number] patient care, completing clinical documentation, obtaining and/or reviewing separately obtained history, performing a medically appropriate examination, counseling and educating the patient/family/caregiver, ordering medications, tests, or procedures, communicating with other HCPs (not separately reported), independently interpreting results (not separately reported), communicating results to the patient/family/caregiver, and care coordination (not separately reported). PROCEDURE: Large Joint Arthro/Inj: L knee joint Informed Consent Consent Obtained: Verbal [place] Protocol A moment to CARE was completed. SIGN IN Personnel directly involved with the procedure wore the appropriate PPE. Special Equipment: N/A Patient/Surrogate Stated/Verified: Patient name, Date of , Relevant allergies and Intended procedure TIME OUT Relevant labs, photos, and/or imaging studies have been reviewed. Correct side/site marked and visible. Medications required for procedure verified. No fire risk assessment and interventions applicable. No implant(s) inserted. 12/17/2023 12:30 PM The procedure site was prepped in the usual sterile fashion. Site: L knee joint Medications: 80 mg triamcinolone acetonide 40 mg/mL Anesthetics: 3 mL lidocaine (PF) 10 mg/mL (1 %) Outcome: Tolerated well, no immediate complications Post-injection instructions were reviewed with the patient and the patient voiced understanding of these instructions. SIGN OUT All instruments, equipment, possible retained foreign bodies accounted for. Edgard Dubois PA-C AMB ROOMING INTAKE FLOWSHEET DATA Pain Pain Level: 6 Pain Location: Knee-Left Description: Shooting Duration Amount of Time: 1 Duration Units: Years Frequency: Intermittent (with weight bearing) Intervention/Comfort measure: Cold, Reposition, Other: See comment (brace prn) documented in this encounter [facility] 12-17-2023 History of Present illness Narrative Radiology Service Progress Note PATIENT NAME: Susan Calderon DATE OF SERVICE: December 17, 2023 TIME: 10:53 AM PATIENT IDENTITY VERIFICATION COMPLETED USING TWO (2) IDENTIFIERS: Name and Date of confirmed by patient verbally. FALL SCREENING: Has the patient had 2 falls in the last year or 1 fall with injury or currently using an Ambulatory Assistive Device (Walker, Cane, Wheelchair, Crutches, etc.)? No PATIENT GENDER DATA: Female. status: : No status: NO. PATIENT RELEVANT IMPLANT DATA REVIEWED: Yes PATIENT PRESENTS WITH AN IMPLANTABLE OR ATTACHED EQUIPMENT CLEANER AND TESTER: No RADIOLOGY DEPARTMENT: General X-ray: Exam(s) Completed: Lower Extremity X-Ray(s): Knee, AP / Lat / Tunne / Merchant Left and Wt. Bearing PERIPHERAL IV DATA: Not applicable SIGNED BY: RT Aidee(R) December 17, 2023 10:53 AM documented in this encounter [facility] 12-14-2023 History of Present illness Narrative SUBJECTIVE Susan Calderon is a 68 year old female here today for a check up on her medical problems. Chief Complaint Patient presents with: Medication Question: is taking several supplements and son seen that there was a reaction between two supplements but she is unsure which it was. Knee Pain: left knee HPI Susan Calderon is a 68 year old female. She presents today for a follow up to discuss her supplements she is taking. She presents with a bag of her supplements and would like help sorting them out (25+ bottles). Not sure what supplements and what doses she should be taking. Also with concerns of knee pain. Left knee. Injury about a year ago. Her medications were reviewed today and her list is now up to date. Medications Current Outpatient Medications Medication Sig omega-3 DHA-EPA (FISH OIL) 1,200 (144-216) mg capsule Take 1 capsule by mouth daily with breakfast. D3/red wine/resveratrol/malt (SUPER-D3+ ORAL) Take 1 Each by mouth once daily. magnesium oxide 400 mg magnesium tab Take 1 Each by mouth once daily. niacin (NIACIN) 500 mg tablet Take 500 mg by mouth daily with breakfast. aspirin 81 mg chewable tablet Take 81 mg by mouth once daily. calcium carbonate/vitamin D3 (CALCIUM WITH VITAMIN D ORAL) Take by mouth. 1200 with 1000 of D OTC NUTRITIONAL SUPPLEMENT Prevagen glucosamine/chondroitin/C/Juice (GLUCOSAMINE-CHONDROITIN COMPLX ORAL) Take by mouth. naproxen sodium (ANAPROX) 220 mg tablet Take 220 mg by mouth once daily as needed. acetaminophen/diphenhydramine (PM PAIN RELIEF ORAL) Take by mouth. atorvastatin (LIPITOR) 10 mg tablet Take 1 tablet by mouth daily at bedtime. montelukast (SINGULAIR) 10 mg tablet Take 1 tablet by mouth daily at bedtime. cyclobenzaprine (FLEXERIL) 5 mg tablet Take 1-2 tablets by mouth three times a day as needed (cramping and muscle spasm). lisinopril (ZESTRIL) 40 mg tablet Take 1 tablet by mouth once daily. DOSE CHANGE - TAKE ONE DAILY atenolol (TENORMIN) 25 mg tablet Take 1 tablet by mouth once daily. VITAMIN E ORAL Take 1 capsule by mouth once daily. vitamin B complex (SUPER B COMPLEX ORAL) Take 1 tablet by mouth once daily. ferrous sulfate 325 mg (65 mg iron) tablet Take 325 mg by mouth once daily. ascorbic acid, vitamin C, (VITAMIN C) 500 mg tablet Take 500 mg by mouth once daily. fluticasone (FLONASE) 50 mcg/actuation nasal spray SPRAY 2 SPRAYS INTO EACH NOSTRIL ONCE DAILY - RINSE MOUTH AFTER USE fluticasone-salmeterol (ADVAIR DISKUS) 250-50 mcg/dose inhaler Inhale 1 Puff as instructed twice daily. albuterol HFA (PROVENTIL HFA) 90 mcg/actuation inhaler Inhale 2 Puffs as instructed every 4 hours as needed for wheezing/shortness of breath. No current facility-administered medications for this visit. ALLERGIES Allergen Reactions Cephalosporins Shortness of Breath Penicillins Anaphylaxis, Shortness of Breath rash Doxycycline Other: See Comments Teeth discoloration Entex Pse [Pseudoep* Intolerance insomnia,jittery Levaquin [Levofloxa* Other: See Comments muscle pain, heel pain (plantar side) Relafen [Nabumetone] Swelling ACTIVE PROBLEM LIST Osteopenia of Both Hips - 02/19/2023 Macrocytic Anemia - 02/19/2023 Allergic Rhinitis - 02/19/2023 Obesity, Class II, Bmi 35-39.9 - 12/18/2022 Cigarette Smoker - 11/16/2018 Small Bowel Obstruction (Hcc) - 07/30/2017 S/P Small Bowel Resection - 07/30/2017 Hypercholesteremia Pruritus--back - 02/19/2012 Candidal Intertrigo - 02/19/2012 Dysmetabolic Syndrome - 07/31/2011 Degeneration of Lumbar Intervertebral Disc Asthma - 06/14/2006 Enlargement of Lymph Nodes - 05/31/2006 Generalized Anxiety Disorder Comment: Anxiety, Generalized Carpal Tunnel Syndrome Generalized Osteoarthrosis, Unspecified Site Esophageal Reflux Anxiety State, Unspecified - 04/18/2005 Primary Hypertension - 04/17/2005 Social History Tobacco Use Smoking status: Former Packs/day: .5 Types: Cigarettes Quit date: 07/25/2022 Years since quittin.3 Smokeless tobacco: Never Tobacco comments: Cigarette every 2-3 days( 02/19/23 ) February 19, 2023 Practically quit smoking. Just one the other day and made lightheaded. Vaping Use Vaping Use: Never used Substance Use Topics Alcohol use: Yes Comment: weekend has beer usually Drug use: No Review of Systems Respiratory: Negative. Cardiovascular: Negative. Musculoskeletal: Positive for arthralgias. OBJECTIVE BP 144/72 Pulse 66 Wt 247 lb (112.0kg) SpO2 99% Physical Exam Vitals and nursing note reviewed. Constitutional: General: She is awake. She is not in acute distress. Appearance: Normal appearance. She is well-developed and well-groomed. She is not ill-appearing, toxic-appearing or diaphoretic. HENT: Head: Normocephalic. Right Ear: External ear normal. Left Ear: External ear normal. Nose: Nose normal. Eyes: General: Vision grossly intact. Conjunctiva/sclera: Conjunctivae normal. Pupils: Pupils are equal, round, and reactive to light. Neck: Vascular: No JVD. Trachea: Trachea normal. Pulmonary: Effort: Pulmonary effort is normal. No accessory muscle usage, prolonged expiration or respiratory distress. Musculoskeletal: Cervical back: Neck supple. Skin: General: Skin is warm and dry. Capillary Refill: Capillary refill takes less than 2 seconds. Neurological: General: No focal deficit present. Mental Status: She is alert and oriented to person, place, and time. Mental status is at baseline. Psychiatric: Attention and Perception: Attention and perception normal. Mood and Affect: Mood and affect normal. Speech: Speech normal. Behavior: Behavior normal. Behavior is cooperative. Thought Content: Thought content normal. Cognition and Memory: Cognition and memory normal. Judgment: Judgment normal. ASSESSMENT/PLAN: 1. Chronic pain of left knee - ICD9: 719.46, 338.29, ICD10: M25.562, G89.29 (primary diagnosis) We will refer to ortho for her knee pain. - CONSULT TO ORTHOPAEDICS 2. Allergic rhinitis, unspecified seasonality, unspecified trigger - ICD9: 477.9, ICD10: J30.9 - MONTELUKAST 10 MG TABLET 3. Medication management - ICD9: V58.69, ICD10: Z79.899 Extensive time going through her supplements with her. We discussed what would be indicated. Can update labs in a few weeks to check things. 4. Encounter for therapeutic drug monitoring - ICD9: V58.83, ICD10: Z51.81 - COMPLETE BLOOD COUNT AND DIFFERENTIAL - IRON AND TIBC - COMPREHENSIVE METABOLIC PANEL - VITAMIN B12 - FERRITIN - MAGNESIUM - VITAMIN D 25 HYDROXY Portions of this note have been entered by ancillary staff. I have reviewed and when necessary edited, so that they are an adequate record of my encounter with this patient Please note that parts of this document were created using voice recognition software and therefore may contain grammatical errors. Patient verbalizes understanding of instructions from today's visit and in agreement with treatment plan. Questions answered. Agrees to call the office if questions, concerns of issues with acute symptoms not improving or if they worsen. See diagnoses and orders for additional plan(s). Allergies and medications were reviewed, list was updated, and refills given if needed. Past medical, surgical, social, and family history reviewed and updated as appropriate. Encouraged proper diet & exercise as well as compliance with taking medications. Age-appropriate health preventative measures were discussed. Return if symptoms worsen or fail to improve, for Keep next scheduled appointment.. DAMIAN Hewitt documented in this encounter [facility] 10-04-2023 Miscellaneous Notes [facility] pharmacy calls and is asking for refills on medication. Called patient and patient states that she would rather have medications to all be sent to [facility]. Please send all future refills to [facility]. Amy Muller RN documented in this encounter [facility] 09-30-2023 Miscellaneous Notes Patient has been identified by name and date of : Yes, Provider Dr Christianson Date 09/30/2023 Time 2:33 Patient phones for refill(s): Requested Prescriptions Pending Prescriptions Disp Refills cyclobenzaprine (FLEXERIL) 5 mg tablet 180 tablet 1 Sig: Take 1-2 tablets by mouth three times a day as needed (cramping and muscle spasm). Date of last office visit in primary care: 04/04/2019 Date of next office visit in primary care: Visit date not found Please advise. Thank you. Carly Fink. documented in this encounter [facility] 09-27-2023 Miscellaneous Notes Patient notified and voiced her understanding. She does have a BP cuff and will monitor her BP. I think the 10 mg was to be stopped when dose as increased from 30 mg (20mg plus 10mg) to 40 mg. Would have her take just 40 mg dose daily. Does she have a BP cuff? Patient stopped in for a refill on her Lisinopril 10 mg. Lisinopril 10mg was d/c'd off he med list 02/2023. Patient is also taking a 40 mg tablet. Asking if she should continue taking to the 10 mg and the 40 mg? If so she will need a refill for the 10 mg. Please advise. documented in this encounter [facility] 09-14-2023 History of Present illness Narrative This note was created using NoteWriter. Subjective Susan Calderon is a 68 year old female. HISTORY Susan Calderon is a 68 year old lady here for yearly exam and follow up appointment. Needed new parking placard letter. Noted can get for 10 years now. Completely quit smoking 2 to 3 months ago. No longer associated with drinking light beer (prior association). Started eating more. Knows cannot keep from eating the container of ice cream. Watching salt most of the time. Drinking [address] Pepper per day. Tends to nibble on food. Can get swelling in left leg above the shoe and sock line. A lot less swelling in right knee. Shirataki noodles and broth and veggies and chicken or shrimp were great for losing weight. PAST MEDICAL HISTORY Diagnosis Date Allergic rhinitis, cause unspecified Allergic rhinitis Carpal tunnel syndrome Degeneration of intervertebral disc, site unspecified Depressive disorder, not elsewhere classified Esophageal reflux Generalized anxiety disorder Anxiety, Generalized Generalized osteoarthrosis, unspecified site Hypercholesteremia Unspecified essential hypertension Current Outpatient Medications Medication Sig cyclobenzaprine (FLEXERIL) 5 mg tablet Take 1-2 tablets by mouth three times daily as needed (cramping and muscle spasm). lisinopril (ZESTRIL) 40 mg tablet Take 1 tablet by mouth once daily. DOSE CHANGE - TAKE ONE DAILY atorvastatin (LIPITOR) 10 mg tablet Take 1 tablet by mouth daily at bedtime. atenolol (TENORMIN) 25 mg tablet Take 1 tablet by mouth once daily. montelukast (SINGULAIR) 10 mg tablet Take 1 tablet by mouth daily at bedtime. POTASSIUM-99 ORAL Take 1 tablet by mouth once daily. Magnesium 250 mg tab Take 500 mg by mouth once daily. [id number]-OREG-CAPRYL ORAL Take 1 tablet by mouth once daily. coenzyme Q10 (COENZYME Q-10) 100 mg cap capsule Take 100 mg by mouth once daily. VITAMIN E ORAL Take 1 capsule by mouth once daily. vitamin B complex (SUPER B COMPLEX ORAL) Take 1 tablet by mouth once daily. cyanocobalamin (VITAMIN B-12) 500 mcg tablet Take 1 tablet by mouth once daily. ferrous sulfate 325 mg (65 mg iron) tablet Take 325 mg by mouth once daily. cholecalciferol, vitamin D3, 10 mcg (400 unit) cap Take 400 Units by mouth once daily. ascorbic acid, vitamin C, (VITAMIN C) 500 mg tablet Take 500 mg by mouth once daily. collagen/biotin/ascorbic acid (COLLAGEN 1500 PLUS C ORAL) Take 1 capsule by mouth once daily. fish oil/borage/flax/om3,6,9 1 (OMEGA 3-6-9 ORAL) Take 1 capsule by mouth once daily. albuterol HFA (PROVENTIL HFA) 90 mcg/actuation inhaler Inhale 2 Puffs as instructed every 4 hours as needed for wheezing/shortness of breath. cetirizine HCl (ZYRTEC) 10 mg chewable tablet Take 10 mg by mouth once daily. lisinopril (ZESTRIL) 40 mg tablet Take 1 tablet by mouth once daily. DOSE CHANGE - TAKE ONE DAILY montelukast (SINGULAIR) 10 mg tablet Take 1 tablet by mouth daily at bedtime. [id number] ORAL Take 1 tablet by mouth once daily. gabapentin (NEURONTIN) 400 mg capsule Take 1 capsule by mouth three times daily for 180 days. fluticasone (FLONASE) 50 mcg/actuation nasal spray SPRAY 2 SPRAYS INTO EACH NOSTRIL ONCE DAILY - RINSE MOUTH AFTER USE fluticasone-salmeterol (ADVAIR DISKUS) 250-50 mcg/dose inhaler Inhale 1 Puff as instructed twice daily. No current facility-administered medications for this visit. ALLERGIES Allergen Reactions Cephalosporins Shortness of Breath Penicillins Anaphylaxis, Shortness of Breath rash Doxycycline Other: See Comments Teeth discoloration Entex Pse [Pseudoep* Intolerance insomnia,jittery Levaquin [Levofloxa* Other: See Comments muscle pain, heel pain (plantar side) Relafen [Nabumetone] Swelling FAMILY HISTORY Problem Relation Age of Onset other (cerebral aneurysm) Mother Cancer Father lung other (cerebral aneurysm) Maternal Grandfather No Known Problems Brother Social History Tobacco Use Smoking status: Former Packs/day: .5 Types: Cigarettes Quit date: 07/25/2022 Years since quittin.1 Smokeless tobacco: Never Tobacco comments: Cigarette every 2-3 days( 02/19/23 ) February 19, 2023 Practically quit smoking. Just one the other day and made lightheaded. Vaping Use Vaping Use: Never used Substance Use Topics Alcohol use: Yes Comment: weekend has beer usually Drug use: No Review of Systems Objective BP 130/80 Pulse 64 Resp 16 Ht 168.9 cm (5' 6.5) Wt 106.1 kg (234 lb) BMI 37.20 kg/m Last 5 Encounter Wt Readings: Date: Wt: 09/14/2023 106.1 kg (234 lb) 02/19/2023 96.6 kg (213 lb) 12/18/2022 98 kg (216 lb) 07/29/2022 88.5 kg (195 lb) 06/23/2022 85.3 kg (188 lb) No waist measurement recorded Estimated body mass index is 37.2 kg/m as calculated from the following: Height as of this encounter: 168.9 cm (5' 6.5). Weight as of this encounter: 106.1 kg (234 lb). Last 5 Encounter BP Readings: Date: BP: 09/14/2023 130/80 02/19/2023 138/72 12/18/2022 160/80 07/29/2022 132/70 07/23/2022 152/89[average bp[ Physical Exam Vitals reviewed. Constitutional: Appearance: Normal appearance. She is well-developed. She is obese. HENT: Head: Normocephalic and atraumatic. Right Ear: External ear normal. Left Ear: External ear normal. Nose: Nose normal. Eyes: Conjunctiva/sclera: Conjunctivae normal. Neck: Thyroid: No thyromegaly. Vascular: No carotid bruit. Cardiovascular: Rate and Rhythm: Normal rate and regular rhythm. Pulses: Normal pulses. Heart sounds: Normal heart sounds. No murmur heard. No friction rub. No gallop. Pulmonary: Effort: Pulmonary effort is normal. Breath sounds: Normal breath sounds. Abdominal: General: Bowel sounds are normal. There is no distension. Palpations: Abdomen is soft. There is no mass. Tenderness: There is no abdominal tenderness. Musculoskeletal: General: No deformity. Normal range of motion. Right lower leg: Edema present. Left lower leg: Edema present. Lymphadenopathy: Cervical: No cervical adenopathy. Skin: General: Skin is warm and dry. Coloration: Skin is not jaundiced or pale. Findings: No rash. Neurological: General: No focal deficit present. Mental Status: She is alert and oriented to person, place, and time. Cranial Nerves: No cranial nerve deficit. Sensory: No sensory deficit. Motor: No abnormal muscle tone. Coordination: Coordination normal. Deep Tendon Reflexes: Reflexes normal. Psychiatric: Attention and Perception: Attention and perception normal. Mood and Affect: Mood and affect normal. Speech: Speech normal. Behavior: Behavior normal. Thought Content: Thought content normal. Cognition and Memory: Cognition normal. Judgment: Judgment normal. Last labs: Component Latest Ref Rng & Units 12/18/2021 06/20/2022 03/29/2023 Protein, Total 6.3 - 8.0 g/dL 6.7 7.3 Albumin 3.9 - 4.9 g/dL 3.9 3.9 Calcium 8.5 - 10.2 mg/dL 9.4 9.3 Bilirubin, Total 0.2 - 1.3 mg/dL 0.2 0.3 Alkaline Phosphatase 34 - 123 U/L 76 66 AST 13 - 35 U/L 27 30 ALT 7 - 38 U/L 16 21 Glucose 74 - 99 mg/dL 98 96 BUN 7 - 21 mg/dL 16 15 Creatinine 0.58 - 0.96 mg/dL 0.82 0.72 Sodium 136 - 144 mmol/L 137 140 Potassium 3.7 - 5.1 mmol/L 4.4 4.1 Chloride 97 - 105 mmol/L 104 105 CO2 22 - 30 mmol/L 23 25 Anion Gap 9 - 18 mmol/L 10 10 eGFR >=60 mL/min/1.73m 79 91 WBC 3.70 - 11.00 k/uL 8.04 6.78 RBC 3.90 - 5.20 m/uL 3.66 (L) 3.85 (L) Hemoglobin 11.5 - 15.5 g/dL 12.3 12.5 Hematocrit 36.0 - 46.0 % 38.0 38.8 MCV 80.0 - 100.0 fL 103.8 (H) 100.8 (H) MCH 26.0 - 34.0 pg 33.6 32.5 MCHC 30.5 - 36.0 g/dL 32.4 32.2 RDW-CV 11.5 - 15.0 % 12.5 12.8 Platelet Count 150 - 400 k/uL 272 308 MPV 9.0 - 12.7 fL 10.2 9.8 Absolute nRBC <0.01 k/uL <0.01 <0.01 Cholesterol, Total <200 mg/dL 174 170 173 Triglyceride <150 mg/dL 53 61 100 HDL Cholesterol >39 mg/dL 97 89 77 Non HDL Cholesterol <130 mg/dL 77 81 96 Fasting Time hrs 14 10 12 VLDL Cholesterol <30 mg/dL 11 12 20 TC:HDL Ratio <5.10 1.79 1.91 2.25 LDL Cholesterol <100 mg/dL 66 69 76 LDL:HDL Ratio <2.54 0.68 0.78 0.99 Iron 41 - 186 ug/dL 71 TIBC 232 - 386 ug/dL 305 Transferrin Saturation 15.0 - 57.0 % 23.3 Vitamin D 25 Hydroxy 31.0 - 80.0 ng/mL 36.4 Vitamin B12 232 - 1,245 pg/mL 561 Folate >4.7 ng/mL >20.0 Ferritin 14.7 - 205.1 ng/mL 249.0 (H) Assessment and Plan Encounter Diagnosis ICD-10-CM 1. Need for shingles vaccine Z23 SHINGRIX PRINTED PHARMACY INSTRUCTIONS 2. Encounter for immunization Z23 RSV PRINTED PHARMACY INSTRUCTIONS [employer] COVID-19 VACCINE (2022- SEAS[place]) AGE 12+ YR 3. Primary hypertension I10 COMP METABOLIC PANEL CBC 4. Hypercholesteremia E78.00 LIPID PANEL BASIC 5. Chronic pain of left knee M25.562 G89.29 6. Primary osteoarthritis of both knees M17.0 7. Elevated ferritin R79.89 FERRITIN BLD 8. Encounter for long-term current use of medication Z79.899 COMP METABOLIC PANEL CBC 9. Osteopenia, unspecified location M85.80 VITAMIN D 25 HYDROXY Above issues addressed with patient. Patient involved in shared decision making for management of medical issues. History and medications reviewed. Epic updated as needed Refills and/or prescriptions taken care of and meds adjusted as indicated after reviewed history, exam and labs. Health Maintenance reviewed. Updated record and/or ordered tests as recorded. Encouraged on efforts at healthy diet and regular exercise and adequate sleep. Needs to keep working on diet and exercise with lifestyle changes for effective weight loss as well as prevention of DM, and control of BP and lipids. Cee Christianson MD documented in this encounter [facility] 05-10-2023 Miscellaneous Notes Please clarify directions. Pt states taking 2 tablets 2 times daily Morning and bedtime but not sure if she is allowed to take it middle of day at that rate as well so she doesn't take anything. Patient has been identified by name and date of : Yes Last office visit in this department: 02/19/2023 RX INSTRUCTIONS: Patient aware RX will be sent to pharmacy. No need to notify patient. Patient phones requesting refills as follows: Requested Prescriptions Pending Prescriptions Disp Refills cyclobenzaprine (FLEXERIL) 5 mg tablet Sig: Take 1 tablet by mouth three times daily as needed (cramping and muscle spasm). Taking 2 tabs three times daily PRN Please review and advise. Deanna Burns documented in this encounter [facility] 02-25-2023 Miscellaneous Notes Change of pharmacy Patient has been identified by name and date of : Yes Last office visit in this department: 02/19/2023 RX INSTRUCTIONS: Patient aware RX will be sent to pharmacy. No need to notify patient. Patient phones requesting refills as follows: Requested Prescriptions Pending Prescriptions Disp Refills lisinopril (ZESTRIL) 40 mg tablet 90 tablet 2 Sig: Take 1 tablet by mouth once daily. DOSE CHANGE - TAKE ONE DAILY atorvastatin (LIPITOR) 10 mg tablet 90 tablet 3 Sig: Take 1 tablet by mouth daily at bedtime. atenolol (TENORMIN) 25 mg tablet 90 tablet 3 Sig: Take 1 tablet by mouth once daily. Please review and advise. Celena De La Rosa Pss documented in this encounter [facility] 02-25-2023 Miscellaneous Notes Patient has been identified by name and date of : Yes Patient phones for refill(s): Requested Prescriptions Pending Prescriptions Disp Refills atorvastatin (LIPITOR) 10 mg tablet 90 tablet 3 Sig: Take 1 tablet by mouth daily at bedtime. atenolol (TENORMIN) 25 mg tablet 90 tablet 3 Sig: Take 1 tablet by mouth once daily. Date of last office visit in primary care: 02/19/2023 Yearly: 09/14/23 Last 2 Encounter Wt Readings: Date: Wt: 02/19/2023 96.6 kg (213 lb) 12/18/2022 98 kg (216 lb) Previous labs/tests for medication: Cholesterol: HDL Cholesterol (mg/dL) Date Value 06/20/2022 89 06/03/2020 132 HDL Cholesterol, Nonfasting (mg/dL) Date Value 05/24/2021 111 LDL Cholesterol (mg/dL) Date Value 06/20/2022 69 06/03/2020 69 LDL Cholesterol, Nonfasting (mg/dL) Date Value 05/24/2021 84 ALT (U/L) Date Value 06/20/2022 16 05/24/2021 14 Non HDL Cholesterol, Nonfasting (mg/dL) Date Value 05/24/2021 93 Non HDL Cholesterol (mg/dL) Date Value 06/20/2022 81 Blood Pressure: BUN (mg/dL) Date Value 06/20/2022 16 05/24/2021 6 Sodium (mmol/L) Date Value 06/20/2022 137 05/24/2021 136 Last 1 Encounter BP Readings: Date: BP: 02/19/2023 138/72 Please advise. Thank you. Shante Evans LPN Patient has been identified by name and date of : Yes Last office visit in this department: 04/04/2019 RX INSTRUCTIONS: Patient aware RX will be sent to pharmacy. No need to notify patient. Patient phones requesting refills as follows: Requested Prescriptions Pending Prescriptions Disp Refills atorvastatin (LIPITOR) 10 mg tablet 90 tablet 3 Sig: Take 1 tablet by mouth daily at bedtime. atenolol (TENORMIN) 25 mg tablet 90 tablet 3 Sig: Take 1 tablet by mouth once daily. Please review and advise. Sole Maria documented in this encounter [facility] 02-19-2023 Instructions Cee Christianson MD - 02/19/2023 11:10 AM EDT Labs anytime in the next 3 months. documented in this encounter [facility] 02-19-2023 History of Present illness Narrative Images from the original note were not included. This note was created using Unbound. Subjective Susan Calderon is a 67 year old female. Patient presents with: F/U 6 months SUBJECTIVE: Susan Calderon is a 67 year old year old lady here today for 6 month follow up appointment for review of medical conditions. Doing okay. Noted knot medial left knee. Twisted in driveway one day. Tried ice pack and [place] wrap. Did help a lot--swelling down and tenderness better. Was hurting a lot before that. Tenderness medial knee on tibial area. Swelling was just above this area. Noted allergies and asthma doing fine on current meds. uses Flonase and Advair as needed. Taking iron and calcium and Vitamin D PAST MEDICAL HISTORY Diagnosis Date Allergic rhinitis, cause unspecified Allergic rhinitis Carpal tunnel syndrome Degeneration of intervertebral disc, site unspecified Depressive disorder, not elsewhere classified Esophageal reflux Generalized anxiety disorder Anxiety, Generalized Generalized osteoarthrosis, unspecified site Hypercholesteremia Unspecified essential hypertension Current Outpatient Medications Medication Sig POTASSIUM-99 ORAL Take 1 tablet by mouth once daily. Magnesium 250 mg tab Take 500 mg by mouth once daily. [id number]-RHHWH-OREG-CAPRYL ORAL Take 1 tablet by mouth once daily. coenzyme Q10 (COENZYME Q-10) 100 mg cap capsule Take 100 mg by mouth once daily. VITAMIN E ORAL Take 1 capsule by mouth once daily. vitamin B complex (SUPER B COMPLEX ORAL) Take 1 tablet by mouth once daily. cyanocobalamin (VITAMIN B-12) 500 mcg tablet Take 1 tablet by mouth once daily. ferrous sulfate 325 mg (65 mg iron) tablet Take 325 mg by mouth once daily. cholecalciferol, vitamin D3, 10 mcg (400 unit) cap Take 400 Units by mouth once daily. ascorbic acid, vitamin C, (VITAMIN C) 500 mg tablet Take 500 mg by mouth once daily. collagen/biotin/ascorbic acid (COLLAGEN 1500 PLUS C ORAL) Take 1 capsule by mouth once daily. fish oil/borage/flax/om3,6,9 1 (OMEGA 3-6-9 ORAL) Take 1 capsule by mouth once daily. lisinopril (ZESTRIL) 40 mg tablet Take 1 tablet by mouth once daily. DOSE CHANGE - TAKE ONE DAILY cyclobenzaprine (FLEXERIL) 5 mg tablet Take 1 tablet by mouth three times daily as needed (cramping and muscle spasm). (Patient taking differently: Take 5 mg by mouth three times daily as needed (cramping and muscle spasm). Taking 2 tabs three times daily PRN) atenolol (TENORMIN) 25 mg tablet Take 1 tablet by mouth once daily. atorvastatin (LIPITOR) 10 mg tablet Take 1 tablet by mouth daily at bedtime. montelukast (SINGULAIR) 10 mg tablet Take 1 tablet by mouth daily at bedtime. fluticasone (FLONASE) 50 mcg/actuation nasal spray SPRAY 2 SPRAYS INTO EACH NOSTRIL ONCE DAILY - RINSE MOUTH AFTER USE fluticasone-salmeterol (ADVAIR DISKUS) 250-50 mcg/dose inhaler Inhale 1 Puff as instructed twice daily. albuterol HFA (PROVENTIL HFA) 90 mcg/actuation inhaler Inhale 2 Puffs as instructed every 4 hours as needed for wheezing/shortness of breath. cetirizine HCl (ZYRTEC) 10 mg chewable tablet Take 10 mg by mouth once daily. RLMIPZD-EOQLYFDDE-CWFM ORAL Take 1 tablet by mouth once daily. (Patient not taking: Reported on 02/19/2023) gabapentin (NEURONTIN) 400 mg capsule Take 1 capsule by mouth three times daily for 180 days. No current facility-administered medications for this visit. Review of Systems Objective BP 138/72 Pulse 68 Temp 36 C (96.8 F) Resp 18 Wt 96.6 kg (213 lb) SpO2 96% BMI 34.91 kg/m Physical Exam Musculoskeletal: Legs: Assessment and Plan Encounter Diagnosis ICD-10-CM 1. Pes anserinus bursitis of left knee M70.52 2. Sprain of medial collateral ligament of left knee, initial encounter S83.412A tender medial tibia area 3. Allergic rhinitis, unspecified seasonality, unspecified trigger J30.9 montelukast (SINGULAIR) 10 mg tablet montelukast (SINGULAIR) 10 mg tablet DISCONTINUED: montelukast (SINGULAIR) 10 mg tablet 4. Macrocytic anemia D53.9 VITAMIN B12 BLOOD IRON + TIBC FOLATE SERUM FERRITIN BLD 5. Primary hypertension I10 COMP METABOLIC PANEL CBC 6. Obesity, Class II, BMI 35-39.9 E66.9 7. Hypercholesteremia E78.00 LIPID PANEL BASIC 8. Osteopenia of both hips M85.851 VITAMIN D 25 HYDROXY M85.852 9. Encounter for long-term current use of medication Z79.899 COMP METABOLIC PANEL CBC LIPID PANEL BASIC VITAMIN D 25 HYDROXY VITAMIN B12 BLOOD IRON + TIBC FOLATE SERUM FERRITIN BLD Above issues addressed with patient. Patient involved in shared decision making for management of medical issues. History and medications reviewed. Epic updated as needed Refills and/or prescriptions taken care of and meds adjusted as indicated after reviewed history, exam and labs. Health Maintenance reviewed. Updated record and/or ordered tests as recorded. Encouraged on efforts at healthy diet and regular exercise and adequate sleep. Cee Christianson MD documented in this encounter [facility] 01-04-2023 History of Present illness Narrative Radiology Service Progress Note PATIENT NAME: Susan Calderon DATE OF SERVICE: January 04, 2023 TIME: 11:17 AM PATIENT IDENTITY VERIFICATION COMPLETED USING TWO (2) IDENTIFIERS: Name and Date of confirmed by patient verbally. FALL SCREENING: Has the patient had 2 falls in the last year or 1 fall with injury or currently using an Ambulatory Assistive Device (Walker, Cane, Wheelchair, Crutches, etc.)? No PATIENT GENDER DATA: Female. status: : No status: NO. PATIENT RELEVANT IMPLANT DATA REVIEWED: Not Applicable RADIOLOGY DEPARTMENT: Bone Density PERIPHERAL IV DATA: Not applicable SIGNED BY: RT Torito(R) January 04, 2023 11:17 AM documented in this encounter [facility] 01-04-2023 History of Present illness Narrative Radiology Service Progress Note PATIENT NAME: Susan Calderon DATE OF SERVICE: January 04, 2023 TIME: 10:50 AM PATIENT IDENTITY VERIFICATION COMPLETED USING TWO (2) IDENTIFIERS: Name and Date of confirmed by patient verbally. FALL SCREENING: Has the patient had 2 falls in the last year or 1 fall with injury or currently using an Ambulatory Assistive Device (Walker, Cane, Wheelchair, Crutches, etc.)? No PATIENT GENDER DATA: Female. status: : No status: NO. PATIENT RELEVANT IMPLANT DATA REVIEWED: Not Applicable RADIOLOGY DEPARTMENT: Mammography PERIPHERAL IV DATA: Not applicable SIGNED BY: Tree [employer] Ricky January 04, 2023 10:50 AM documented in this encounter [facility] 12-18-2022 History of Present illness Narrative SUBJECTIVE Susan Calderon is a 67 year old female here today for a check up on her medical problems. Chief Complaint Patient presents with: F/U 6 months HPI Susan is a 67 year old female who presents for follow-up for hypertension. They are here today for a recheck of blood pressure. Blood pressure appears to be elevated. Denies any symptoms referable to elevated blood pressure. Specifically denies headache, chest pain, palpitations, dyspnea and peripheral edema. Tolerating medications well. does check BP's away from this office with average BP's in the 140-150/90's range. Quitting smoking. Mood doing well, no issues anxiety or depression. Her medications were reviewed today and her list is now up to date. Medications Current Outpatient Medications Medication Sig POTASSIUM-99 ORAL Take 1 tablet by mouth once daily. Magnesium 250 mg tab Take 250 mg by mouth once daily. BFQWONU-DLVY-KOXBM-OREG-CAPRYL ORAL Take 1 tablet by mouth once daily. coenzyme Q10 (CO Q-10) 100 mg cap capsule Take 100 mg by mouth once daily. VITAMIN E ORAL Take 1 capsule by mouth once daily. vitamin B complex (SUPER B COMPLEX ORAL) Take 1 tablet by mouth once daily. cyanocobalamin (VITAMIN B-12) 500 mcg tablet Take 1 tablet by mouth once daily. ferrous sulfate (IRON) 325 mg (65 mg iron) tablet Take 325 mg by mouth once daily. cholecalciferol, vitamin D3, (VITAMIN D-3) 10 mcg (400 unit) cap Take 400 Units by mouth once daily. IYUAYAB-OERIKVZQI-LLTB ORAL Take 1 tablet by mouth once daily. ascorbic acid, vitamin C, (VITAMIN C) 500 mg tablet Take 500 mg by mouth once daily. collagen/biotin/ascorbic acid (COLLAGEN 1500 PLUS C ORAL) Take 1 capsule by mouth once daily. fish oil/borage/flax/om3,6,9 1 (OMEGA 3-6-9 ORAL) Take 1 capsule by mouth once daily. gabapentin (NEURONTIN) 400 mg capsule Take 1 capsule by mouth three times daily for 180 days. cyclobenzaprine (FLEXERIL) 5 mg tablet Take 1 tablet by mouth three times daily as needed (cramping and muscle spasm). atenolol (TENORMIN) 25 mg tablet Take 1 tablet by mouth once daily. atorvastatin (LIPITOR) 10 mg tablet Take 1 tablet by mouth daily at bedtime. montelukast (SINGULAIR) 10 mg tablet Take 1 tablet by mouth daily at bedtime. fluticasone (FLONASE) 50 mcg/actuation nasal spray SPRAY 2 SPRAYS INTO EACH NOSTRIL ONCE DAILY - RINSE MOUTH AFTER USE fluticasone-salmeterol (ADVAIR DISKUS) 250-50 mcg/dose inhaler Inhale 1 Puff as instructed twice daily. albuterol HFA (PROVENTIL HFA) 90 mcg/actuation inhaler Inhale 2 Puffs as instructed every 4 hours as needed for wheezing/shortness of breath. cetirizine HCl (ZYRTEC) 10 mg chewable tablet Take 10 mg by mouth once daily. lisinopril (ZESTRIL) 40 mg tablet Take 1 tablet by mouth once daily. DOSE CHANGE - TAKE ONE DAILY No current facility-administered medications for this visit. ALLERGIES Allergen Reactions Cephalosporins Shortness of Breath Penicillins Anaphylaxis, Shortness of Breath rash Doxycycline Other: See Comments Teeth discoloration Entex Pse [Pseudoep* Intolerance insomnia,jittery Levaquin [Levofloxa* Other: See Comments muscle pain, heel pain (plantar side) Relafen [Nabumetone] Swelling ACTIVE PROBLEM LIST Obesity, Class II, Bmi 35-39.9 - 12/18/2022 Cigarette Smoker - 11/16/2018 Small Bowel Obstruction (Hcc) - 07/30/2017 S/P Small Bowel Resection - 07/30/2017 Hypercholesteremia Pruritus--back - 02/19/2012 Candidal Intertrigo - 02/19/2012 Dysmetabolic Syndrome - 07/31/2011 Degeneration of Lumbar Intervertebral Disc Asthma - 06/14/2006 Enlargement of Lymph Nodes - 05/31/2006 Generalized Anxiety Disorder Comment: Anxiety, Generalized Carpal Tunnel Syndrome Generalized Osteoarthrosis, Unspecified Site Esophageal Reflux Anxiety State, Unspecified - 04/18/2005 Primary Hypertension - 04/17/2005 Social History Tobacco Use Smoking status: Some Days Packs/day: 0.50 Types: Cigarettes Last attempt to quit: 07/25/2022 Years since quittin.4 Smokeless tobacco: Never Tobacco comments: Down to 2 to 5 cig a day (05/2021); from half PPD--working on quitting; stress triggers; 06/19/19--on patch and has quit smoking. Sometimes half PPD (12/30/20 and ) Vaping Use Vaping Use: Never used Substance Use Topics Alcohol use: Yes Comment: weekend has beer usually Drug use: No Review of Systems Respiratory: Negative. Cardiovascular: Negative. OBJECTIVE BP 160/80 Pulse 68 Wt 216 lb (98.0kg) SpO2 98% Physical Exam Vitals and nursing note reviewed. Constitutional: General: She is awake. She is not in acute distress. Appearance: Normal appearance. She is well-developed and well-groomed. She is not ill-appearing, toxic-appearing or diaphoretic. HENT: Head: Normocephalic. Right Ear: External ear normal. Left Ear: External ear normal. Nose: Nose normal. Eyes: General: Vision grossly intact. Conjunctiva/sclera: Conjunctivae normal. Pupils: Pupils are equal, round, and reactive to light. Neck: Vascular: No JVD. Trachea: Trachea normal. Cardiovascular: Rate and Rhythm: Normal rate and regular rhythm. Pulses: Normal pulses. Heart sounds: Normal heart sounds. No murmur heard. Pulmonary: Effort: Pulmonary effort is normal. No accessory muscle usage, prolonged expiration or respiratory distress. Breath sounds: Normal breath sounds. Musculoskeletal: Cervical back: Neck supple. Skin: General: Skin is warm and dry. Capillary Refill: Capillary refill takes less than 2 seconds. Neurological: General: No focal deficit present. Mental Status: She is alert and oriented to person, place, and time. Mental status is at baseline. Psychiatric: Attention and Perception: Attention and perception normal. Mood and Affect: Mood and affect normal. Speech: Speech normal. Behavior: Behavior normal. Behavior is cooperative. Thought Content: Thought content normal. Cognition and Memory: Cognition and memory normal. Judgment: Judgment normal. ASSESSMENT/PLAN: 1. Primary hypertension - ICD9: 401.9, ICD10: I10 (primary diagnosis) - suboptimal control - Increase lisinopril (Zestril/Prinivil) - Encouraged dietary sodium restriction/DASH diet - Recommended regular aerobic exercise. - Recommend home blood pressure monitoring, to bring results in on next visit - Discussed need and benefit for weight loss. - Reviewed risks of HTN and principles of treatment - Goal of BP <140/90 - LISINOPRIL 40 MG TABLET 2. Tobacco use disorder - ICD9: 305.1, ICD10: F17.200 - Cessation encouraged. - Physiologic and physical aspects of tobacco addiction as well as strategies for quitting were discussed. - Counseling was given focusing on the harmful effects of this addiction especially given the patient's medical condition(s) which will be worsened because of the chemicals in tobacco. 3. Generalized anxiety disorder - ICD9: 300.02, ICD10: F41.1 Stable. Depression Screening 11/16/2018 12/30/2020 06/23/2022 12/18/2022 PHQ-2 Score 0 0 2 0 PHQ-9 Score - 0 - - Depression screening tool completed and reviewed. Based on score and interview, patient is not at risk for depression. Screening tool discussed with patient, and I recommended no further intervention at this time. 4. Obesity, Class II, BMI 35-39.9 - ICD9: 278.00, ICD10: E66.9 5. Encounter for screening mammogram for breast cancer - ICD9: V76.12, ICD10: Z12.31 - NAVI SCREENING 6. Screening for osteoporosis - ICD9: V82.81, ICD10: Z13.820 - DXA-AXIAL SKELETON 7. Asymptomatic menopause - ICD9: V49.81, ICD10: Z78.0 - DXA-AXIAL SKELETON 8. Screening for depression - ICD9: V79.0, ICD10: Z13.31 - DEPRESSION SCREENING/ASSESSMENT Portions of this note have been entered by ancillary staff. I have reviewed and when necessary edited, so that they are an adequate record of my encounter with this patient Please note that parts of this document were created using voice recognition software and therefore may contain grammatical errors. Patient verbalizes understanding of instructions from today's visit and in agreement with treatment plan. Questions answered. Agrees to call the office if questions, concerns of issues with acute symptoms not improving or if they worsen. See diagnoses and orders for additional plan(s). Allergies and medications were reviewed, list was updated, and refills given if needed. Past medical, surgical, social, and family history reviewed and updated as appropriate. Encouraged proper diet & exercise as well as compliance with taking medications. Age-appropriate health preventative measures were discussed. Return if symptoms worsen or fail to improve, for recheck blood pressure, Keep next scheduled appointment.. DAMIAN Hewitt documented in this encounter [facility] 08-31-2022 History of Present illness Narrative POPULATION HEALTH NAVIGATION OUTREACH Action/FYI Unable to LM, notes added to upcoming ov to discuss mammogram due around 01/01/2023, ad Pt identified by name and : NO Outreach Outcome/Action Unable to reach patient: Phone number not valid / voicemail full Did you use a PCP flex slot to schedule this appointment? N/A Reason for Outreach Care Gap or Scheduling/Wellness visits Payer: Payor: [employer] MEDICARE / Plan: [employer] MEDICARE PPO / Product Type: PPO / Care Gap Reviewed:: Breast Cancer screening Reminder: Reminder note to check Health Maintenance for items below Health Maintenance items due: SPIROMETRY Never done BP CONTROLLED (<130/80) Never done SHINGRIX VACCINE(1 of 2) Never done BONE DENSITY Never done ADVANCE DIRECTIVE DISCUSSION due on 08/16/2022 DEPRESSION ASSESSMENT due on 08/16/2022 Navigation Signature: Nichelle Hennessy MA August 31, 2022 1:36 PM documented in this encounter [facility] 08-03-2022 Miscellaneous Notes Patient returned call and went over notes below from Zakia Sneed MANAGER [employer] with understanding. LEFT MESSAGE FOR PATIENT TO CALL OFFICE. Left message for patient to return call to office. BPs look good. Continue unchanged for now Patient wanted to update provider on most recent blood pressure results since beginning new medication regiment. 07/31/22 12:30 128/82 pulse 68 1:00 129/80 pulse 69 2:00 1199/75 pulse 65 documented in this encounter [facility] 07-30-2022 Miscellaneous Notes Noted, agree. If taking Lisinopril 40 mg daily most of the time in the next 2 weeks can prescribe at that level. Notified patient of same. She states there are times that she will take up to 40 mg of Lisinopril due to her blood pressure being high. She claims that Dr. Christianson told her she could take an extra dose as long as she doesn't go over 40 mg. Asked patient to keep track of her blood pressure of the next two weeks and what days she takes an extras dose and call office back with report. LEFT MESSAGE FOR PATIENT TO CALL OFFICE. I will send in a prescription for lisinopril 30 mg daily so she only needs to take one pill after she completes her current prescriptions. Pt reports the pill bottle states lisinopril 20 mg: Take 1 tablet by mouth once daily in addition to 10 mg tablet for a total of 30 mg daily. Pt reports while she has been sick and taking otc cough medication her bp was creeping up so she has been taking an additional 10 mg to equal 40 mg daily. Charmaine Yee LPN Called and left a voicemail for the Patient to call back and ask for a nurse to receive the providers message. Ariana Cherry RN Need pill bottle information if willing to look. Pt calls back to report she was taking lisinopril 30 mg but lately she has been taking 40 mg because she has a cough and has been taking Coricidin otc -daytime that is not htn. Pt reports nighttime Coricidin is for htn. Pt feels the daytime Coricidin is making bp high. Pt reports yesterday bp was 144/76 then 129/82. Pt reports today before she took any Coricidin bp was 126/82. Pt reports she doesn't remember what is on her pill bottles and did not seem to want to check them. Charmaine Yee LPN VM left for patient to call PCP office for message below. Rosita Vazquez RN Please check with her regarding lisinopril dose on her pill bottles / what she is taking daily previously and currently. documented in this encounter [facility] 06-23-2022 Instructions Zakia Sneed APRN.CNS - 06/23/2022 2:38 PM EST Check to see if your insurance covers shingles vaccine and what location to get the vaccine -usually best covered at your local pharmacy where you get prescriptions filled documented in this encounter [facility] 06-23-2022 History of Present illness Narrative SUBJECTIVE: SPIROMETRY Never done BP CONTROLLED (<130/80) Never done SHINGRIX VACCINE(1 of 2) Never done BONE DENSITY Never done PNEUMOCOCCAL: 65+(2 - PPSV23 if available, else PCV20) due on 04/26/2020 ADVANCE DIRECTIVE DISCUSSION Never done DEPRESSION ASSESSMENT Never done COVID-19 VACCINE(4 - Booster for Moderna series) due on 09/18/2021 INFLUENZA(1) due on 04/16/2022 HPI Susan Calderon is a 66 year old female. PMH significant foir ACTIVE PROBLEM LIST Essential Hypertension Anxiety State, Unspecified Generalized Anxiety Disorder Carpal Tunnel Syndrome Generalized Osteoarthrosis, Unspecified Site Esophageal Reflux Enlargement of Lymph Nodes Asthma Degeneration of Lumbar Intervertebral Disc Dysmetabolic Syndrome Pruritus--back Candidal Intertrigo Hypercholesteremia Small Bowel Obstruction (Hcc) S/P Small Bowel Resection Cigarette Smoker Smoking: Continues, decreased to 5 cigarettes per day, trying to quit. HTN: Without report ofheadache, chest pain, palpitations, dyspnea, peripheral edema, orthopnea, fatigue, and PND. Last 3 Encounter BP Readings: Last 14 Encounter BP Readings: Date: BP: 06/23/2022 157/92[bp average[ 12/19/2021 140/68 05/26/2021 142/82 12/30/2020 138/74 06/21/2020 116/78 06/19/2019 118/72 05/09/2019 132/82 04/19/2019 130/72 04/04/2019 144/80 02/27/2019 122/68 01/28/2019 118/80 11/16/2018 122/78[patient's cuff[ 10/28/2018 144/90 2018 120/70 Hyperlipidemia. Ms. Calderon reports doing well on current therapy Her most recent lipid panels are: Cholesterol, Total (mg/dL) Date Value 06/20/2022 170 12/18/2021 174 06/03/2020 211 06/15/2019 186 Total Cholesterol, Nonfasting (mg/dL) Date Value 05/24/2021 204 HDL Cholesterol (mg/dL) Date Value 06/20/2022 89 12/18/2021 97 06/03/2020 132 06/15/2019 106 HDL Cholesterol, Nonfasting (mg/dL) Date Value 05/24/2021 111 LDL Cholesterol (mg/dL) Date Value 06/20/2022 69 12/18/2021 66 06/03/2020 69 06/15/2019 70 LDL Cholesterol, Nonfasting (mg/dL) Date Value 05/24/2021 84 Triglyceride (mg/dL) Date Value 06/20/2022 61 12/18/2021 53 06/03/2020 52 06/15/2019 52 Triglycerides, Nonfasting (mg/dL) Date Value 05/24/2021 47 Patient's last HgA1C was Hemoglobin A1C (%) Date Value 06/03/2020 5.3 05/10/2018 4.9 GERD: stable, no current complaints Asthma: no recent exacerbation, stable. Review of Systems Constitutional: Negative. Objective BP 169/88 Pulse 72 Resp 16 Wt 85.3 kg (188 lb) BMI 30.81 kg/m Physical Exam Vitals and nursing note reviewed. Constitutional: Appearance: Normal appearance. HENT: Head: Normocephalic and atraumatic. Cardiovascular: Rate and Rhythm: Normal rate and regular rhythm. Heart sounds: Normal heart sounds. Pulmonary: Effort: Pulmonary effort is normal. Breath sounds: Normal breath sounds. Abdominal: General: Bowel sounds are normal. Palpations: Abdomen is soft. Neurological: Mental Status: She is alert. ALLERGIES Allergen Reactions Cephalosporins Shortness of Breath Penicillins Anaphylaxis, Shortness of Breath rash Doxycycline Other: See Comments Teeth discoloration Entex Pse [Pseudoep* Intolerance insomnia,jittery Levaquin [Levofloxa* Other: See Comments muscle pain, heel pain (plantar side) Relafen [Nabumetone] Swelling gabapentin (NEURONTIN) 400 mg capsule Take 1 capsule by mouth three times daily for 180 days. cyclobenzaprine (FLEXERIL) 5 mg tablet Take 1 tablet by mouth three times daily as needed (cramping and muscle spasm). olopatadine (PATANOL) 0.1 % ophthalmic solution Use 1 Drop in both eyes twice daily as needed for cold/allergy symptoms (for red itchy or watery eyes). atenolol (TENORMIN) 25 mg tablet Take 1 tablet by mouth once daily. atorvastatin (LIPITOR) 10 mg tablet Take 1 tablet by mouth daily at bedtime. montelukast (SINGULAIR) 10 mg tablet Take 1 tablet by mouth daily at bedtime. lisinopril (PRINIVIL) 10 mg tablet Take 1 tablet by mouth once daily. lisinopril (ZESTRIL, PRINIVIL) 20 mg tablet Take 1 tablet by mouth once daily. Resume pill in addition to 10 mg dose for total 30 mg daily fluticasone (FLONASE) 50 mcg/actuation nasal spray SPRAY 2 SPRAYS INTO EACH NOSTRIL ONCE DAILY - RINSE MOUTH AFTER USE fluticasone-salmeterol (ADVAIR DISKUS) 250-50 mcg/dose inhaler Inhale 1 Puff as instructed twice daily. albuterol HFA (PROVENTIL HFA) 90 mcg/actuation inhaler Inhale 2 Puffs as instructed every 4 hours as needed for wheezing/shortness of breath. cetirizine HCl (ZYRTEC) 10 mg chewable tablet Take 10 mg by mouth once daily. PAST MEDICAL HISTORY Diagnosis Date Allergic rhinitis, cause unspecified Allergic rhinitis Carpal tunnel syndrome Degeneration of intervertebral disc, site unspecified Depressive disorder, not elsewhere classified Esophageal reflux Generalized anxiety disorder Anxiety, Generalized Generalized osteoarthrosis, unspecified site Hypercholesteremia Unspecified essential hypertension Social History Tobacco Use Smoking status: Some Days Packs/day: 0.50 Types: Cigarettes Start date: 07/26/2018 Last attempt to quit: 06/12/2019 Years since quittin.0 Smokeless tobacco: Never Tobacco comments: Down to 2 to 5 cig a day (05/2021); from half PPD--working on quitting; stress triggers; 06/19/19--on patch and has quit smoking. Sometimes half PPD (12/30/20 and ) Vaping Use Vaping Use: Never used Substance Use Topics Alcohol use: Yes Comment: weekend has beer usually Drug use: No Component Latest Ref Rng & Units 05/24/2021 12/18/2021 06/20/2022 Protein, Total 6.3 - 8.0 g/dL 7.1 6.7 Albumin 3.9 - 4.9 g/dL 4.2 3.9 Calcium 8.5 - 10.2 mg/dL 9.2 9.4 Bilirubin, Total 0.2 - 1.3 mg/dL 0.3 0.2 Alkaline Phosphatase 34 - 123 U/L 82 76 AST 13 - 35 U/L 25 27 Glucose 74 - 99 mg/dL 92 98 BUN 7 - 21 mg/dL 6 (L) 16 Creatinine 0.58 - 0.96 mg/dL 0.56 (L) 0.82 Sodium 136 - 144 mmol/L 136 137 Potassium 3.7 - 5.1 mmol/L 4.1 4.4 Chloride 97 - 105 mmol/L 100 104 CO2 22 - 30 mmol/L 23 23 Anion Gap 9 - 18 mmol/L 13 10 ALT 7 - 38 U/L 14 16 eGFR- >60 eGFR-All Other Races . >60 eGFR >=60 mL/min/1.73m 79 WBC 3.70 - 11.00 k/uL 6.45 8.04 RBC 3.90 - 5.20 m/uL 3.68 (L) 3.66 (L) Hemoglobin 11.5 - 15.5 g/dL 12.3 12.3 Hematocrit 36.0 - 46.0 % 37.9 38.0 MCV 80.0 - 100.0 fL 103.0 (H) 103.8 (H) MCH 26.0 - 34.0 pg 33.4 33.6 MCHC 30.5 - 36.0 g/dL 32.5 32.4 RDW-CV 11.5 - 15.0 % 12.3 12.5 Platelet Count 150 - 400 k/uL 264 272 MPV 9.0 - 12.7 fL 9.8 10.2 Absolute nRBC <0.01 k/uL <0.01 <0.01 Cholesterol, Total <200 mg/dL 174 170 Triglyceride <150 mg/dL 53 61 HDL Cholesterol >39 mg/dL 97 89 Non HDL Cholesterol <130 mg/dL 77 81 Fasting Time hrs 14 10 VLDL Cholesterol <30 mg/dL 11 12 TC:HDL Ratio <5.10 1.79 1.91 LDL Cholesterol <100 mg/dL 66 69 LDL:HDL Ratio <2.54 0.68 0.78 Total Cholesterol, Nonfasting <200 mg/dL 204 (H) Triglycerides, Nonfasting <150 mg/dL 47 HDL Cholesterol, Nonfasting >39 mg/dL 111 LDL Cholesterol, Nonfasting <100 mg/dL 84 Non HDL Cholesterol, Nonfasting <130 mg/dL 93 VLDL Cholesterol, Nonfasting <30 mg/dL 9 Total Chol/HDL Ratio, Nonfasting <5.10 mg/dL 1.84 LDL/HDL Ratio, Nonfasting <2.54 mg/dL 0.76 documented in this encounter [facility] 01-01-2022 Miscellaneous Notes January 01, 2022 PID: [id number] Susan Calderon [address] [phone] Dear Ms. Calderon, We are pleased to inform you that the results of your recent breast imaging exam on 01/01/2022 are normal. Early detection of cancer is very important. We also understand recommendations regarding breast cancer screening are controversial. Please discuss with your primary care provider which strategy is best for you and whether a mammogram is right for you. Your imaging studies and report will be kept on file at [facility] as part of your permanent medical record and are available for your continuing care. Thank you for allowing us to help in meeting your health care needs. Sincerely, Dr. Manzano Interpreting Radiologist [facility] (Normal over 40) documented in this encounter [facility] 01-01-2022 History of Present illness Narrative Radiology Service Progress Note PATIENT NAME: Susan Calderon DATE OF SERVICE: January 01, 2022 TIME: 12:47 PM PATIENT IDENTITY VERIFICATION COMPLETED USING TWO (2) IDENTIFIERS: Name and Date of confirmed by patient verbally. FALL SCREENING: Has the patient had 2 falls in the last year or 1 fall with injury or currently using an Ambulatory Assistive Device (Walker, Cane, Wheelchair, Crutches, etc.)? No PATIENT GENDER DATA: Female. status: : No status: NO. PATIENT RELEVANT IMPLANT DATA REVIEWED: Not Applicable RADIOLOGY DEPARTMENT: Mammography PERIPHERAL IV DATA: Not applicable SIGNED BY: Tree [employer] Ricky January 01, 2022 12:47 PM documented in this encounter [facility] 12-19-2021 History of Present illness Narrative Images from the original note were not included. This note was created using Unbound. Subjective Susan Calderon is a 66 year old female. Patient presents with: F/U 6 months SUBJECTIVE: Susan Calderon is a 66 year old year old lady here today for 6 month follow up appointment for review of medical conditions. Overall doing well. Did gain 10 pounds because of sweet tooth issues. Noted that has been going for pain management. Does not want to be on tramadol routinely because would overdo when pain dulled and get more painful when wears off. Taking 2 ibuprofen and 1 acetaminophen. Has bottle of tramadol-acetaminophen but has not taken any pills yet. Flexeril Lower part of hips and leg pain have been riled up. has COPD so postponing things because of his health issues. Wished had done back surgeries before. Having to do more around the house, including dragging trash cans to curb 100ft. Back injection had been helping. However, would get numb after the shots and Dr. Kruse would not let her stay after the shot till numbness worse off. Patients are expected to leave as soon as shots done. Does not want to take controlled med; does not want to travel hour and 15minutes to get to those appointment monthly. Was told would need to wait 6 months for next shot after September. Noted had prior fusion L4-S1 with L3-4 decompression fusion pedicle screw fixation. Told there are problems with something eroded. 2019 lumbar MRI: Multilevel degenerative change, worst at L3-L4 and severe bilateral neural foraminal narrowing and moderate spinal canal narrowing. Mild degenerative changes of the remainder of the intervertebral levels as described. Would go to Dr. Lorenzo if needed surgery since had done the prior surgery. PAST MEDICAL HISTORY Diagnosis Date Allergic rhinitis, cause unspecified Allergic rhinitis Carpal tunnel syndrome Degeneration of intervertebral disc, site unspecified Depressive disorder, not elsewhere classified Esophageal reflux Generalized anxiety disorder Anxiety, Generalized Generalized osteoarthrosis, unspecified site Hypercholesteremia Unspecified essential hypertension Current Outpatient Medications Medication Sig gabapentin (NEURONTIN) 400 mg capsule Take 1 capsule by mouth three times daily for 180 days. cyclobenzaprine (FLEXERIL) 5 mg tablet Take 1 tablet by mouth three times daily as needed (cramping and muscle spasm). olopatadine (PATANOL) 0.1 % ophthalmic solution Use 1 Drop in both eyes twice daily as needed for cold/allergy symptoms (for red itchy or watery eyes). atenolol (TENORMIN) 25 mg tablet Take 1 tablet by mouth once daily. atorvastatin (LIPITOR) 10 mg tablet Take 1 tablet by mouth daily at bedtime. montelukast (SINGULAIR) 10 mg tablet Take 1 tablet by mouth daily at bedtime. lisinopril (PRINIVIL) 10 mg tablet Take 1 tablet by mouth once daily. lisinopril (ZESTRIL, PRINIVIL) 20 mg tablet Take 1 tablet by mouth once daily. Resume pill in addition to 10 mg dose for total 30 mg daily fluticasone (FLONASE) 50 mcg/actuation nasal spray SPRAY 2 SPRAYS INTO EACH NOSTRIL ONCE DAILY - RINSE MOUTH AFTER USE fluticasone-salmeterol (ADVAIR DISKUS) 250-50 mcg/dose Inhale 1 Puff as instructed twice daily. albuterol HFA (PROVENTIL HFA) 90 mcg/actuation inhaler Inhale 2 Puffs as instructed every 4 hours as needed for Wheezing/Shortness of Breath. cetirizine HCl (ZYRTEC) 10 mg chewable tablet Take 10 mg by mouth once daily. No current facility-administered medications for this visit. Review of Systems Objective BP 140/68 Pulse 76 Resp 16 Wt 84.4 kg (186 lb) BMI 30.48 kg/m Last 5 Encounter Wt Readings: Date: Wt: 12/19/2021 84.4 kg (186 lb) 05/26/2021 79.4 kg (175 lb) 12/30/2020 81.2 kg (179 lb) 06/21/2020 79.7 kg (175 lb 9.6 oz) 06/19/2019 77.6 kg (171 lb) No waist measurement recorded Estimated body mass index is 30.48 kg/m as calculated from the following: Height as of 06/21/20: 166.4 cm (5' 5.5). Weight as of this encounter: 84.4 kg (186 lb). Last 5 Encounter BP Readings: Date: BP: 12/19/2021 140/68 05/26/2021 142/82 12/30/2020 138/74 06/21/2020 116/78 06/19/2019 118/72 Physical Exam Constitutional: Appearance: Normal appearance. HENT: Head: Normocephalic. Eyes: Conjunctiva/sclera: Conjunctivae normal. Cardiovascular: Rate and Rhythm: Normal rate and regular rhythm. Heart sounds: Normal heart sounds. Pulmonary: Effort: Pulmonary effort is normal. Breath sounds: Normal breath sounds. Musculoskeletal: Legs: Skin: General: Skin is warm and dry. Neurological: General: No focal deficit present. Mental Status: She is alert and oriented to person, place, and time. Psychiatric: Mood and Affect: Mood normal. Behavior: Behavior normal. Thought Content: Thought content normal. Judgment: Judgment normal. Component Latest Ref Rng & Units 06/03/2020 06/13/2020 05/24/2021 12/18/2021 Protein, Total 6.3 - 8.0 g/dL 7.8 7.1 Albumin 3.9 - 4.9 g/dL 4.4 4.2 Calcium 8.5 - 10.2 mg/dL 9.3 8.8 9.2 Bilirubin, Total 0.2 - 1.3 mg/dL 0.5 0.3 Alkaline Phosphatase 34 - 123 U/L 84 82 AST 13 - 35 U/L 35 25 Glucose 74 - 99 mg/dL 84 97 92 BUN 7 - 21 mg/dL 9 11 6 (L) Creatinine 0.58 - 0.96 mg/dL 0.58 0.58 0.56 (L) Sodium 136 - 144 mmol/L 127 (L) 130 (L) 136 Potassium 3.7 - 5.1 mmol/L 4.3 4.3 4.1 Chloride 97 - 105 mmol/L 91 (L) 99 100 CO2 22 - 30 mmol/L 27 27 23 Anion Gap 9 - 18 mmol/L 9 4 (L) 13 ALT 7 - 38 U/L 32 14 eGFR- >60 >60 >60 eGFR-All Other Races . >60 >60 >60 WBC 3.70 - 11.00 k/uL 5.37 6.45 RBC 3.90 - 5.20 m/uL 4.19 3.68 (L) Hemoglobin 11.5 - 15.5 g/dL 13.7 12.3 Hematocrit 36.0 - 46.0 % 38.9 37.9 MCV 80.0 - 100.0 fL 92.8 103.0 (H) MCH 26.0 - 34.0 pG 32.7 33.4 MCHC 30.5 - 36.0 g/dL 35.2 32.5 RDW-CV 11.5 - 15.0 % 12.3 12.3 Platelet Count 150 - 400 k/uL 239 264 MPV 9.0 - 12.7 fL 8.7 (L) 9.8 Absolute nRBC <0.01 k/uL <0.01 <0.01 Cholesterol, Total <200 mg/dL 211 (H) 174 Triglyceride <150 mg/dL 52 53 HDL Cholesterol >39 mg/dL 132 97 LDL Cholesterol <100 mg/dL 69 66 Non HDL Cholesterol <130 mg/dL 79 77 Fasting Time hrs 10 14 VLDL Cholesterol <30 mg/dL 10 11 TC:HDL Ratio <5.10 1.60 1.79 LDL:HDL Ratio <2.54 0.52 0.68 Total Cholesterol, Nonfasting <200 mg/dL 204 (H) Triglycerides, Nonfasting <150 mg/dL 47 HDL Cholesterol, Nonfasting >39 mg/dL 111 LDL Cholesterol, Nonfasting <100 mg/dL 84 Non HDL Cholesterol, Nonfasting <130 mg/dL 93 VLDL Cholesterol, Nonfasting <30 mg/dL 9 Total Chol/HDL Ratio, Nonfasting <5.10 mg/dL 1.84 LDL/HDL Ratio, Nonfasting <2.54 mg/dL 0.76 Hemoglobin A1C 4.3 - 5.6 % 5.3 Estimated Average Glucose mg/dL 105 Magnesium 1.7 - 2.3 mg/dL 2.1 TSH 0.270 - 4.200 uU/mL 1.820 Assessment and Plan Encounter Diagnosis ICD-10-CM 1. Essential hypertension I10 atenolol (TENORMIN) 25 mg tablet 2. Degeneration of lumbar intervertebral disc M51.36 3. Neural foraminal stenosis of lumbar spine M48.061 4. S/P lumbar fusion Z98.1 5. Allergic symptoms, subsequent encounter T78.40XD olopatadine (PATANOL) 0.1 % ophthalmic solution 6. Allergic conjunctivitis of both eyes and rhinitis H10.13 olopatadine (PATANOL) 0.1 % ophthalmic solution J30.9 7. Allergic rhinitis, unspecified seasonality, unspecified trigger J30.9 montelukast (SINGULAIR) 10 mg tablet 8. Moderate persistent asthma without complication J45.40 albuterol HFA (PROVENTIL HFA) 90 mcg/actuation inhaler Stable on meds ASSESSMENT/PLAN: 1. Essential hypertension - ICD9: 401.9, ICD10: I10 (primary diagnosis) - good control - Continue current medication(s) - Recommended regular aerobic exercise. - Recommend home blood pressure monitoring, to bring results in on next visit - Goal of BP <130/80 - ATENOLOL 25 MG TABLET - CBC - COMP METABOLIC PANEL - LIPID PANEL BASIC 2. Degeneration of lumbar intervertebral disc - ICD9: 722.52, ICD10: M51.36 Continue present management. 3. Neural foraminal stenosis of lumbar spine - ICD9: 724.02, ICD10: M48.061 Continue present management. 4. S/P lumbar fusion - ICD9: V45.4, ICD10: Z98.1 5. Allergic symptoms, subsequent encounter - ICD9: V58.89, 995.3, ICD10: T78.40XD - OLOPATADINE 0.1 % EYE DROPS 6. Allergic conjunctivitis of both eyes and rhinitis - ICD9: 372.05, 477.9, ICD10: H10.13, J30.9 - OLOPATADINE 0.1 % EYE DROPS 7. Allergic rhinitis, unspecified seasonality, unspecified trigger - ICD9: 477.9, ICD10: J30.9 - MONTELUKAST 10 MG TABLET 8. Moderate persistent asthma without complication - ICD9: 493.90, ICD10: J45.40 - ALBUTEROL SULFATE HFA 90 MCG/ACTUATION AEROSOL INHALER 9. Cigarette smoker - ICD9: 305.1, ICD10: F17.210 - Cessation encouraged. - Physiologic and physical aspects of tobacco addiction as well as strategies for quitting were discussed. 10. Hypercholesteremia - ICD9: 272.0, ICD10: E78.00 - LIPID PANEL BASIC 11. Encounter for long-term current use of medication - ICD9: V58.69, ICD10: Z79.899 - CBC - COMP METABOLIC PANEL Cee Christianson MD documented in this encounter [facility] 12-16-2021 Miscellaneous Notes Spoke with pt and she has enough medication till Wednesday her apt with you and you can refill and discuss at that time. Elke Gregorio LPN Does patient have enough refills to last till appointment this week? Patient has been identified by name and date of : Yes Pharmacy phones for refill(s): Pending Prescriptions Disp Refills ATENOLOL 25 MG TABLET 90 tablet 3 Sig: Take 1 tablet by mouth once daily. SHELLIE: No ATORVASTATIN 10 MG TABLET 90 tablet 3 Sig: Take 1 tablet by mouth daily at bedtime. SHELLIE: No MONTELUKAST 10 MG TABLET 90 tablet 3 Sig: Take 1 tablet by mouth daily at bedtime. SHELLIE: No LISINOPRIL 10 MG TABLET 90 tablet 3 Sig: Take 1 tablet by mouth once daily. SHELLIE: No LISINOPRIL 20 MG TABLET 90 tablet 3 Sig: Take 1 tablet by mouth once daily. Resume pill in addition to 10 mg dose for total 30 mg daily SHELLIE: No Date of last office visit in primary care:05/26/2021, has appt 12/19/2021 Last 2 Encounter Wt Readings: Date: Wt: 05/26/2021 79.4 kg (175 lb) 12/30/2020 81.2 kg (179 lb) Previous labs/tests for medication: Cholesterol: HDL Cholesterol (mg/dL) Date Value 06/03/2020 132 HDL Cholesterol, Nonfasting (mg/dL) Date Value 05/24/2021 111 LDL Cholesterol (mg/dL) Date Value 06/03/2020 69 LDL Cholesterol, Nonfasting (mg/dL) Date Value 05/24/2021 84 ALT (U/L) Date Value 05/24/2021 14 Non HDL Cholesterol, Nonfasting (mg/dL) Date Value 05/24/2021 93 Blood Pressure: BUN (mg/dL) Date Value 05/24/2021 6 Sodium (mmol/L) Date Value 05/24/2021 136 Last 1 Encounter BP Readings: Date: BP: 05/26/2021 142/82 Please advise. Thank you. Lucille Ji LPN documented in this encounter [facility] 04[facility]2005 History of Past i llness Narrative Problem Noted Date Resolved Date Depressive disorder, not elsewhere classified 01/26/2021 documented as of this encounter (statuses as of 12/08/2021) [facility] History of Past illness Narrative* Problem Noted Date Resolved Date Depressive disorder, not elsewhere classified 01/26/2021 documented as of this encounter (statuses as of 12/16/2021) [facility] History of Past illness Narrative* Problem Noted Date Resolved Date Depressive disorder, not elsewhere classified 01/26/2021 documented as of this encounter (statuses as of 01/02/2022) [facility] History of Past illness Narrative* Problem Noted Date Resolved Date Depressive disorder, not elsewhere classified 01/26/2021 documented as of this encounter (statuses as of 01/03/2022) [place] [id number] History of Past illness Narrative* Problem Noted Date Resolved Date Depressive disorder, not elsewhere classified 01/26/2021 documented as of this encounter (statuses as of 02/12/2022) [address]2005 History of Past illness Narrative* Problem Noted Date Resolved Date Depressive disorder, not elsewhere classified 01/26/2021 documented as of this encounter (statuses as of 02/20/2022) [address]2005 History of Past illness Narrative* Problem Noted Date Resolved Date Depressive disorder, not elsewhere classified 01/26/2021 documented as of this encounter (statuses as of 06/25/2022) [address]2005 History of Past illness Narrative* Problem Noted Date Resolved Date Depressive disorder, not elsewhere classified 01/26/2021 documented as of this encounter (statuses as of 07/30/2022) [place] [id number] History of Past illness Narrative* Problem Noted Date Resolved Date Depressive disorder, not elsewhere classified 01/26/2021 documented as of this encounter (statuses as of 08/03/2022) [place] [id number] History of Past illness Narrative* Problem Noted Date Resolved Date Depressive disorder, not elsewhere classified 01/26/2021 documented as of this encounter (statuses as of 08/31/2022) [facility] History of Past illness Narrative* Problem Noted Date Resolved Date Depressive disorder, not elsewhere classified 01/26/2021 documented as of this encounter (statuses as of 12/18/2022) [address]2005 History of Past illness Narrative* Problem Noted Date Diagnosed Date Resolved Date Depressive disorder, not elsewhere classified 04/17/20 05 01/26/2021 documented as of this encounter (statuses as of 02/26/2023) [address]2005 History of Past illness Narrative* Problem Noted Date Diagnosed Date Resolved Date Depressive disorder, not elsewhere classified 04/17/20 05 01/26/2021 documented as of this encounter (statuses as of 02/26/2023) [address]2005 History of Past illness Narrative* Problem Noted Date Diagnosed Date Resolved Date Depressive disorder, not elsewhere classified 04/17/20 05 01/26/2021 documented as of this encounter (statuses as of 03/29/2023) [place] [id number] History of Past illness Narrative* Problem Noted Date Diagnosed Date Resolved Date Depressive disorder, not elsewhere classified 04/17/20 05 01/26/2021 documented as of this encounter (statuses as of 05/11/2023) [facility] of Past illness Narrative* Problem Noted Date Diagnosed Date Resolved Date Depressive disorder, not elsewhere classified 04/17/20 05 01/26/2021 documented as of this encounter (statuses as of 06/20/2023) [place] [id number] History of Past illness Narrative* Problem Noted Date Diagnosed Date Resolved Date Depressive disorder, not elsewhere classified 04/17/20 05 01/26/2021 documented as of this encounter (statuses as of 06/20/2023) [place] [id number] History of Past illness Narrative* Problem Noted Date Diagnosed Date Resolved Date Depressive disorder, not elsewhere classified 04/17/20 05 01/26/2021 documented as of this encounter (statuses as of 07/06/2023) [facility] of Past illness Narrative* Problem Noted Date Diagnosed Date Resolved Date Depressive disorder, not elsewhere classified 04/17/20 05 01/26/2021 documented as of this encounter (statuses as of 09/27/2023) [facility] of Past illness Narrative* Problem Noted Date Diagnosed Date Resolved Date Depressive disorder, not elsewhere classified 04/17/20 05 01/26/2021 documented as of this encounter (statuses as of 09/30/2023) [place] [id number] History of Past illness Narrative* Problem Noted Date Diagnosed Date Resolved Date Depressive disorder, not elsewhere classified 04/17/20 05 01/26/2021 documented as of this encounter (statuses as of 10/04/2023) [place] [id number] History of Past illness Narrative* Problem Noted Date Diagnosed Date Resolved Date Depressive disorder, not elsewhere classified 04/17/20 05 01/26/2021 documented as of this encounter (statuses as of 10/15/2023) [facility] Encounter for screening mammogram for breast cancer [facility] Diagnosis Essential hypertension Unspecified essential hypertension Allergic rhinitis, unspecified seasonality, unspecified trigger [facility] Diagnosis Encounter for screening mammogram for breast cancer [facility] Diagnosis Essential hypertension- Primary Unspecified essential hypertension Degeneration of lumbar intervertebral disc Degeneration of lumbar or lumbosacral intervertebral disc Neural foraminal stenosis of lumbar spine Spinal stenosis, lumbar region, without neurogenic claudication S/P lumbar fusion Arthrodesis status Allergic symptoms, subsequent encounter Allergic conjunctivitis of both eyes and rhinitis Allergic rhinitis, unspecified seasonality, unspecified trigger Moderate persistent asthma without complication Unspecified asthma Cigarette smoker Tobacco use disorder Hypercholesteremia Pure hypercholesterolemia Encounter for long-term current use of medication [facility] Diagnosis Asthma- Primary Unspecified asthma Need for shingles vaccine Need for prophylactic vaccination and inoculation against other viral diseases Screening for osteoporosis Special screening for osteoporosis Asymptomatic menopause Encounter for immunization Need for other specified prophylactic vaccination against single bacterial disease [facility] Diagnosis Primary hypertension- Primary Unspecified essential hypertension Tobacco use disorder Generalized anxiety disorder Obesity, Class II, BMI 35-39.9 Obesity, unspecified Encounter for screening mammogram for breast cancer Screening for osteoporosis Special screening for osteoporosis Asymptomatic menopause Screening for depression [facility] Diagnosis Primary hypertension Unspecified essential hypertension Essential hypertension Unspecified essential hypertension [facility] Diagnosis Essential hypertension Unspecified essential hypertension [facility] Diagnosis Pes anserinus bursitis of left knee- Primary Pes anserinus tendinitis or bursitis Sprain of medial collateral ligament of left knee, initial encounter Allergic rhinitis, unspecified seasonality, unspecified trigger Macrocytic anemia Unspecified deficiency anemia Primary hypertension Unspecified essential hypertension Obesity, Class II, BMI 35-39.9 Obesity, unspecified Hypercholesteremia Pure hypercholesterolemia Osteopenia of both hips Encounter for long-term current use of medication [facility] Diagnosis Encounter for screening mammogram for breast cancer [facility] Diagnosis Screening for osteoporosis Special screening for osteoporosis Asymptomatic menopause [facility] Diagnosis Primary hypertension- Primary Unspecified essential hypertension Hypercholesteremia Pure hypercholesterolemia Chronic pain of left knee Pain in joint, lower leg Primary osteoarthritis of both knees Primary localized osteoarthrosis, lower leg Osteopenia, unspecified location Elevated ferritin Other abnormal blood chemistry Class 2 obesity due to excess calories with body mass index (BMI) of 37.0 to 37.9 in adult, unspecified whether serious comorbidity present Encounter for long-term current use of medication Need for shingles vaccine Need for prophylactic vaccination and inoculation against other viral diseases Encounter for immunization Need for other specified prophylactic vaccination against single bacterial disease [facility] Diagnosis Chronic pain of left knee- Primary Pain in joint, lower leg Allergic rhinitis, unspecified seasonality, unspecified trigger Medication management Encounter for long-term (current) use of other medications Encounter for therapeutic drug monitoring [facility] Diagnosis Left knee pain, unspecified chronicity- Primary [facility] Diagnosis Primary osteoarthritis of left knee- Primary Primary localized osteoarthrosis, lower leg Chronic pain of left knee Pain in joint, lower leg [facility] Diagnosis Left knee pain, unspecified chronicity [facility] Diagnosis Primary hypertension Unspecified essential hypertension [facility] Diagnosis Hypercholesteremia- Primary Pure hypercholesterolemia [facility] Diagnosis Encounter for screening mammogram for breast cancer [facility] Diagnosis Primary hypertension- Primary Unspecified essential hypertension Allergic rhinitis, unspecified seasonality, unspecified trigger Hypercholesteremia Pure hypercholesterolemia Elevated ferritin Other abnormal blood chemistry Class 2 obesity due to excess calories with body mass index (BMI) of 37.0 to 37.9 in adult, unspecified whether serious comorbidity present Osteopenia of both hips Encounter for long-term current use of medication Screening for colon cancer Special screening for malignant neoplasms, colon [facility] Diagnosis Essential hypertension Unspecified essential hypertension [facility] Diagnosis Encounter for screening colonoscopy- Primary Special screening for malignant neoplasms, colon Screening for colon cancer Special screening for malignant neoplasms, colon [facility] Diagnosis Urinary frequency- Primary Acute midline low back pain with right-sided sciatica Acute midline low back pain with right-sided sciatica [facility] Diagnosis Acute midline low back pain with right-sided sciatica [facility] Diagnosis Urinary tract infection without hematuria, site unspecified- Primary Right-sided low back pain without sciatica, unspecified chronicity [facility] Diagnosis Urinary tract infection without hematuria, site unspecified Right-sided low back pain without sciatica, unspecified chronicity [facility] Diagnosis Memory deficit- Primary Memory loss Cognitive impairment, mild, so stated Mild cognitive impairment, so stated Gait instability Abnormality of gait Balance disorder Other symptoms involving nervous and musculoskeletal systems [facility] Diagnosis Encounter for screening mammogram for breast cancer [facility] Diagnosis Primary hypertension Unspecified essential hypertension [facility] Diagnosis Gait instability- Primary Abnormality of gait [facility] Diagnosis Memory deficit- Primary Memory loss Obesity, Class II, BMI 35-39.9 Obesity, unspecified Primary hypertension Unspecified essential hypertension Elevated ferritin Other abnormal blood chemistry Vitamin D deficiency Unspecified vitamin D deficiency Pain in thoracic spine Class 2 obesity due to excess calories with body mass index (BMI) of 37.0 to 37.9 in adult, unspecified whether serious comorbidity present Encounter for long-term current use of medication Encounter for screening mammogram for breast cancer Encounter for immunization Need for other specified prophylactic vaccination against single bacterial disease Screening for depression Encounter for screening mammogram for breast cancer [facility] Diagnosis Cognitive impairment, mild, so stated Mild cognitive impairment, so stated [facility] this [facility] Diagnosis Alzheimer's disease (HCC)- Primary Alzheimer's disease History of traumatic brain injury Personal history of traumatic brain injury [facility] this [facility] Diagnosis Gait instability- Primary Abnormality of gait [facility] this [facility] Diagnosis Degeneration of intervertebral disc of lumbar region with discogenic back pain- Primary S/P lumbar spine operation Other postprocedural status Chronic midline low back pain without sciatica Acute midline low back pain without sciatica [facility] this [facility] Diagnosis Degeneration of intervertebral disc of lumbar region with discogenic back pain S/P lumbar spine operation Other postprocedural status Chronic midline low back pain without sciatica Acute midline low back pain without sciatica documented in this encounter [facility] note* Diagnosis Lumbar stenosis with neurogenic claudication- Primary Closed wedge compression fracture of T11 vertebra, initial encounter ([facility]) Arachnoiditis Unspecified meningitis documented in this encounter [facility] note* Diagnosis Lumbar stenosis with neurogenic claudication- Primary Arachnoiditis Unspecified meningitis documented in this encounter [facility] note* Diagnosis Gait instability- Primary Abnormality of gait documented in this encounter [facility] note* Diagnosis Lumbar stenosis with neurogenic claudication- Primary Arachnoiditis Unspecified meningitis documented in this encounter [facility] note* Diagnosis Gait instability- Primary Abnormality of gait documented in this encounter [facility] note* Diagnosis Gait instability- Primary Abnormality of gait documented in this encounter [facility] note* Diagnosis Gait instability- Primary Abnormality of gait documented in this encounter [facility] for referral (narrative)* Diagnostic Procedure Only (Routine) - Pending Review Specialty Diagnoses / Procedures Referred By Rafael meyer Referred To Contact [facility] Diagnoses Encounter for screening mammogram for breast cancer Procedures NAVI SCREENING SCREENING MAMMOGRAPHY BI 2-VIEW BREAST INC Cee Vicente MD [address] [place] [address] [place] [address] Referral ID Status Reason Start Date Expiration Date Visits Requested Visits Authorized [id number] Pending Review Auto-Generat ed Referral 12/03/2021 01/02/2023 [address] [facility] for referral (narrative)* Diagnostic Procedure Only (Routine) - Closed Specialty Diagnoses / Procedures Referred By Rafael meyer Referred To Contact [facility] Diagnoses Encounter for screening mammogram for breast cancer Procedures NAVI SCREENING SCREENING MAMMOGRAPHY BI 2-VIEW BREAST INC Cee Vicente MD [address] [place] [address] [facility] [place] [address] Referral ID Status Reason Start Date Expiration Date V isits Requested Visits Authorized [id number] Closed Auto-Generate d Referral 12/03/2021 01/02/2023 [address] [facility] for referral (narrative)* Outpatient Procedure (Routine) - Pending Review Specialty Diagnoses / Procedures Referred By Contac t Referred To [facility] Diagnoses Asthma Procedures SPIROMETRY - BASELINE AND POST DILATOR BRNCDILAT RSPSE SPMTRY PRE&POST-BRNCDILAT ADMZakia Cervantes APRN.CNS [address] [place] [address] [facility] [address] [place] [address] Referral ID Status Reason Start Date Expiration Date Visits Requested Visits Authorized [id number] Pending Review Auto-Generat ed Referral 06/23/2022 07/23/[address] [facility] Diagnostic Procedure Only (Routine) - Authorized Specialty Diagnoses / Procedures Referred By Rafael t Referred To Contact [facility] Diagnoses Encounter for screening mammogram for breast cancer Procedures NAVI SCREENING SCREENING MAMMOGRAPHY BI 2-VIEW BREAST INC CAD Thuy Stewart APRN.ADJUNCT PROFESSOR [address] [place] [address] [facility] [address] [place] [address] Referral ID Status Reason Start Date Expiration Date Visits Requested Visits Authorized [id number] Authorized Auto-Generat ed Referral 12/18/2022 01/17/2024 [facility] Diagnostic Procedure Only (Routine) - Closed Specialty Diagnoses / Procedures Referred By Contac t Referred To Contact [facility] Diagnoses Encounter for screening mammogram for breast cancer Procedures NAVI SCREENING SCREENING MAMMOGRAPHY BI 2-VIEW BREAST INC CAD Thuy Stewart APRN.CNP [address] [place] [address] [facility] [address] [place] [address] Referral ID Status Reason Start Date Expiration Date V isits Requested Visits Authorized [id number] Closed Auto-Generate d Referral 12/18/2022 01/17/2024 [address] [facility] for referral (narrative)* Diagnostic Procedure Only (Routine) - Pending Review Specialty Diagnoses / Procedures Referred By Contac t Referred To Contact XR IMAGING Diagnoses Left knee pain, unspecified chronicity Procedures XR KNEE GENERAL 4V AP BOTH/PA BOTH/LAT/MERC LEFT RADIOLOGIC EXAM KNEE COMPLETE 4/MORE VIEWS Edgard Dubois PA-C [address] [address] [place] [address] Referral ID Status Reason Start Date Expiration Date Visits Requested Visits Authorized [id number] Pending Review Auto-Generat ed Referral 12/15/2023 01/13/2025 [address] [facility] for referral (narrative)* Diagnostic Procedure Only (Routine) - Pending Review Specialty Diagnoses / Procedures Referred By Contac t Referred To Contact [facility] Diagnoses Encounter for screening mammogram for breast cancer Procedures NAVI SCREENING W KEVIN SCREENING DIGITAL BREAST TOMOSYNTHESIS BI SCREENING MAMMOGRAPHY BI 2-VIEW BREAST INC Cee Vicente MD [address] [place] [address] [facility] [address] [place] [address] Referral ID Status Reason Start Date Expiration Date Visits Requested Visits Authorized [id number] Pending Review Auto-Generat ed Referral 02/16/2024 03/17/2025 [address] [facility] for referral (narrative)* Outpatient Procedure (Routine) - Pending Review Specialty Diagnoses / Procedures Referred By Contac t Referred To Contact [facility] Diagnoses Screening for colon cancer Procedures COLONOSCOPY SCREENING COLONOSCOPY FLX DX W/COLLJ SPEC WHEN PFRMChloe Songa D, MD [address] [place] [address] [facility] [address] [address] Referral ID Status Reason Start Date Expiration Date Visits Requested Visits Authorized [id number] Pending Review Auto-Generat ed Referral 02/21/2024 02/20/2025 [address] [facility] for referral (narrative)* Outpatient Procedure (Routine) - Closed Specialty Diagnoses / Procedures Referred By Contac t Referred To Contact [facility] Diagnoses Screening for colon cancer Procedures COLONOSCOPY SCREENING COLONOSCOPY FLX DX W/COLLJ SPEC WHEN Cee Corbett MD [address] [place] [id number] [facility] [place] [address] [place] [address] Referral ID Status Reason Start Date Expiration Date V isits Requested Visits Authorized [id number] Closed Auto-Generate d Referral 05/23/2024 07/21/2024 [address] [facility] for referral (narrative)* Diagnostic Procedure Only (Urgent) - Closed Specialty Diagnoses / Procedures Referred By Contac t Referred To Contact XR IMAGING Diagnoses Acute midline low back pain with right-sided sciatica Procedures XR LUMBAR GENERAL 3V AP/LAT/L5-S1 RADEX SPINE LUMBOSACRAL 2/3 VIEWS Jean Kim PA [address] [place] [address] [place] [address] Referral ID Status Reason Start Date Expiration Date V isits Requested Visits Authorized [id number] Closed Auto-Generate d Referral 09/11/2024 10/11/2025 1 1 [facility] for referral (narrative)* Diagnostic Procedure Only (Urgent) - Closed Specialty Diagnoses / Procedures Referred By Contac t Referred To Contact XR IMAGING Diagnoses Acute midline low back pain with right-sided sciatica Procedures XR LUMBAR GENERAL 3V AP/LAT/L5-S1 RADEX SPINE LUMBOSACRAL 2/3 VIEWS Jean Kim PA [address] [place] [address] [place] [address] Referral ID Status Reason Start Date Expiration Date V isits Requested Visits Authorized [id number] Closed Auto-Generate d Referral 09/11/2024 10/11/2025 1 1 [facility] for referral (narrative)* Diagnostic Procedure Only (Routine) - Authorized Specialty Diagnoses / Procedures Referred By Rafael t Referred To Contact US IMAGING Diagnoses Urinary tract infection without hematuria, site unspecified Acute left-sided low back pain without sciatica Procedures US KIDNEY/BLADDER US RETROPERITONEAL REAL TIME W/IMAGE COMPLETE Pradeep Blanton MD [facility] [place] [id number] [place] [address] Referral ID Status Reason Start Date Expiration Date Visits Requested Visits Authorized [id number] Authorized Auto-Generat ed Referral 09/21/2024 10/21/2025 1 1 [facility] for visit Narrative* Diagnostic Procedure Only (Routine) - Closed Specialty Diagnoses / Procedures [facility] To [facility] Diagnoses Encounter for screening mammogram for breast cancer Procedures NAVI SCREENING SCREENING MAMMOGRAPHY BI 2-VIEW BREAST INC CAD Cee Christianson MD [facility] [place] [address] [facility] Imaging [address] [address] Referral ID Status Reason Start Date Expiration Date V isits Requested Visits Authorized [id number] Closed Auto-Generate d Referral 12/03/2021 01/02/2023 [address] [facility] for visit Narrative* Diagnostic Procedure Only (Routine) - Closed Specialty Diagnoses / Procedures [facility] Ref[facility] To Contact [facility] Diagnoses Encounter for screening mammogram for breast cancer Procedures NAVI SCREENING SCREENING MAMMOGRAPHY BI 2-VIEW BREAST INC CAD Thuy Stewart APRN.ADJUNCT PROFESSOR [address] [place] [address] [facility] [address] [place] [address] Referral ID Status Reason Start Date Expiration Date V isits Requested Visits Authorized [id number] Closed Auto-Generate d Referral 12/18/2022 01/17/2024 [address] [facility] for visit Narrative* Diagnostic Procedure Only (Routine) - Closed Specialty Diagnoses / Procedures Referred By Contac t Referred To Contact XR IMAGING Diagnoses Left knee pain, unspecified chronicity Procedures XR KNEE GENERAL 4V AP BOTH/PA BOTH/LAT/MERC LEFT RADIOLOGIC EXAM KNEE COMPLETE 4/MORE VIEWS Edgard Dubois PA-C [address] [address] [place] [address] Referral ID Status Reason Start Date Expiration Date V isits Requested Visits Authorized [id number] Closed Auto-Generate d Referral 12/15/2023 01/13/2025 [address] [facility] for visit Narrative* Outpatient Procedure (Routine) - Closed Specialty Diagnoses / Procedures Referred By Contac t Referred To Contact [facility] Diagnoses Screening for colon cancer Procedures COLONOSCOPY SCREENING COLONOSCOPY FLX DX W/COLLJ SPEC WHEN PFCee Kimble MD [address] [place] [address] [facility] [address] [place] [address] Referral ID Status Reason Start Date Expiration Date V isits Requested Visits Authorized [id number] Closed Auto-Generate d Referral 05/23/2024 07/21/2024 [address] [facility] for visit Narrative* Diagnostic Procedure Only (Urgent) - Closed Specialty Diagnoses / Procedures Referred By Contac t Referred To Contact XR IMAGING Diagnoses Acute midline low back pain with right-sided sciatica Procedures XR LUMBAR GENERAL 3V AP/LAT/L5-S1 RADEX SPINE LUMBOSACRAL 2/3 VIEWS Jean Kim PA [address] [place] [address] [place] [address] Referral ID Status Reason Start Date Expiration Date V isits Requested Visits Authorized [id number] Closed Auto-Generate d Referral 09/11/2024 10/11/2025 [address] [facility] for visit Narrative* Diagnostic Procedure Only (Routine) - Closed Specialty Diagnoses / Procedures Referred By Rafael t Referred To Contact [facility] Diagnoses Encounter for screening mammogram for breast cancer Procedures NAVI SCREENING SCREENING MAMMOGRAPHY BI 2-VIEW BREAST INC CAD Cee Christianson MD [address] [place] [address] Phone: tel: fax: [facility] [address] [place] [address] Referral ID Status Reason Start Date Expiration Date V isits Requested Visits Authorized [id number] Closed Auto-Generate d Referral 09/25/2024 10/25/2025 [address] [facility] for visit Narrative* MRI/CT (Routine) - Closed Specialty Diagnoses / Procedures Referred By Rafael t Referred To Contact MR IMAGING Diagnoses Cognitive impairment, mild, so stated Procedures MRI BRAIN W QUANT WO IVCON MRI BRAIN BRAIN STEM W/O CONTRAST MATERIAL Ruma Westfall MD [address] [place] [address] Phone: tel: fax: [place] [address] Referral ID Status Reason Start Date Expiration Date V isits Requested Visits Authorized [id number] Closed Auto-Generate d Referral 10/27/2024 12/26/2024 [address] [facility] for visit Narrative* MRI/CT (Urgent) - Pending Review Specialty Diagnoses / Procedures Referred By Rafael t Referred To Contact MR IMAGING Diagnoses Degeneration of intervertebral disc of lumbar region with discogenic back pain S/P lumbar spine operation Chronic midline low back pain without sciatica Acute midline low back pain without sciatica Procedures MRI LUMBAR SPINE WO IVCON MRI LUMBAR SPINE WO IVCON MRI SPINAL CANAL LUMBAR W/O CONTRAST MATERIAL Cee Christianson MD [address] [place] [address] Phone: tel: fax: [place] [address] Referral ID Status Reason Start Date Expiration Date Visits Requested Visits Authorized [id number] Pending Review Auto-Genera brandi Referral Patient Cleared - Admin/Chair man/Directo r advise to proceed or did not respond 12/29/2024 02/25/[address] [facility] Summary Purpose Family History No Family History Records FoundNo Family History Records FoundNo Family History Records FoundNo Family History Records FoundNo Family History Records Found Advance Directives No Advanced Directives Records FoundNo Advanced Directives Records FoundNo Advanced Directives Records FoundNo Advanced Directives Records FoundNo Advanced Directives Records Found Reason for Referral Specialty Diagnoses / Procedures Referred By Contac t Referred To Contact Orthopedics Diagnoses Chronic pain of left knee Procedures CONSULT TO ORTHOPAEDICS OFFICE/OUTPATIENT [facility] 60 MINUTES Thuy Stewart APRN.ADJUNCT PROFESSOR [address] [place] [address] Referral ID Status Reason Start Date Expiration Date Visits Requested Visits Authorized [id number] Authorized PCP Requested Referral 12/14/2023 12/13/2024 1 1 Additional Source Comments INFORMATION SOURCE (unrecogn ized section and content) DATE CREATED AUTHOR 02/17/2018 [facility] DATE CREATED AUTHOR AUTHOR'S ORGANIZ ATION 11/08/2024 [facility] DATE CREATED AUTHOR AUTHOR'S ORGANIZ ATION 12/31/2024 [facility] DATE CREATED AUTHOR AUTHOR'S ORGANIZ ATION 01/12/2025 [facility] DATE CREATED AUTHOR AUTHOR'S ORGANIZ ATION 02/13/2025 [facility] Source Comments (unrecognize d section and content) In the event this informatio n is protected by the Federal Confidentiality of Alcohol and Drug Abuse Patient Records regulations: The Federal rules restrict any use of the information to criminally investigate or prosecute any alcohol or drug abuse patient.[facility] event this information is protected by the Federal Confidentiality of Alcohol and Drug Abuse Patient Records regulations: The Federal rules restrict any use of the information to criminally investigate or prosecute any alcohol or drug abuse patient.[facility] the event this information is protected by the Federal Confidentiality of Alcohol and Drug Abuse Patient Records regulations: The Federal rules restrict any use of the information to criminally investigate or prosecute any alcohol or drug abuse patient.[facility] the event this information is protected by the Federal Confidentiality of Alcohol and Drug Abuse Patient Records regulations: The Federal rules restrict any use of the information to criminally investigate or prosecute any alcohol or drug abuse patient.[facility] the event this information is protected by the Federal Confidentiality of Alcohol and Drug Abuse Patient Records regulations: The Federal rules restrict any use of the information to criminally investigate or prosecute any alcohol or drug abuse patient.[facility] the event this information is protected by the Federal Confidentiality of Alcohol and Drug Abuse Patient Records regulations: The Federal rules restrict any use of the information to criminally investigate or prosecute any alcohol or drug abuse patient.[facility] the event this information is protected by the Federal Confidentiality of Alcohol and Drug Abuse Patient Records regulations: The Federal rules restrict any use of the information to criminally investigate or prosecute any alcohol or drug abuse patient.[facility] the event this information is protected by the Federal Confidentiality of Alcohol and Drug Abuse Patient Records regulations: The Federal rules restrict any use of the information to criminally investigate or prosecute any alcohol or drug abuse patient.[facility] the event this information is protected by the Federal Confidentiality of Alcohol and Drug Abuse Patient Records regulations: The Federal rules restrict any use of the information to criminally investigate or prosecute any alcohol or drug abuse patient.[facility] the event this information is protected by the Federal Confidentiality of Alcohol and Drug Abuse Patient Records regulations: The Federal rules restrict any use of the information to criminally investigate or prosecute any alcohol or drug abuse patient.[facility] the event this information is protected by the Federal Confidentiality of Alcohol and Drug Abuse Patient Records regulations: The Federal rules restrict any use of the information to criminally investigate or prosecute any alcohol or drug abuse patient.[facility] the event this information is protected by the Federal Confidentiality of Alcohol and Drug Abuse Patient Records regulations: The Federal rules restrict any use of the information to criminally investigate or prosecute any alcohol or drug abuse patient.[facility] the event this information is protected by the Federal Confidentiality of Alcohol and Drug Abuse Patient Records regulations: The Federal rules restrict any use of the information to criminally investigate or prosecute any alcohol or drug abuse patient.[facility] the event this information is protected by the Federal Confidentiality of Alcohol and Drug Abuse Patient Records regulations: The Federal rules restrict any use of the information to criminally investigate or prosecute any alcohol or drug abuse patient.[facility] the event this information is protected by the Federal Confidentiality of Alcohol and Drug Abuse Patient Records regulations: The Federal rules restrict any use of the information to criminally investigate or prosecute any alcohol or drug abuse patient.[facility] the event this information is protected by the Federal Confidentiality of Alcohol and Drug Abuse Patient Records regulations: The Federal rules restrict any use of the information to criminally investigate or prosecute any alcohol or drug abuse patient.[facility] the event this information is protected by the Federal Confidentiality of Alcohol and Drug Abuse Patient Records regulations: The Federal rules restrict any use of the information to criminally investigate or prosecute any alcohol or drug abuse patient.[facility] the event this information is protected by the Federal Confidentiality of Alcohol and Drug Abuse Patient Records regulations: The Federal rules restrict any use of the information to criminally investigate or prosecute any alcohol or drug abuse patient.[facility] the event this information is protected by the Federal Confidentiality of Alcohol and Drug Abuse Patient Records regulations: The Federal rules restrict any use of the information to criminally investigate or prosecute any alcohol or drug abuse patient.[facility] the event this information is protected by the Federal Confidentiality of Alcohol and Drug Abuse Patient Records regulations: The Federal rules restrict any use of the information to criminally investigate or prosecute any alcohol or drug abuse patient.[facility] the event this information is protected by the Federal Confidentiality of Alcohol and Drug Abuse Patient Records regulations: The Federal rules restrict any use of the information to criminally investigate or prosecute any alcohol or drug abuse patient.[facility] the event this information is protected by the Federal Confidentiality of Alcohol and Drug Abuse Patient Records regulations: The Federal rules restrict any use of the information to criminally investigate or prosecute any alcohol or drug abuse patient.[facility] the event this information is protected by the Federal Confidentiality of Alcohol and Drug Abuse Patient Records regulations: The Federal rules restrict any use of the information to criminally investigate or prosecute any alcohol or drug abuse patient.[facility] the event this information is protected by the Federal Confidentiality of Alcohol and Drug Abuse Patient Records regulations: The Federal rules restrict any use of the information to criminally investigate or prosecute any alcohol or drug abuse patient.[facility] the event this information is protected by the Federal Confidentiality of Alcohol and Drug Abuse Patient Records regulations: The Federal rules restrict any use of the information to criminally investigate or prosecute any alcohol or drug abuse patient.[facility] the event this information is protected by the Federal Confidentiality of Alcohol and Drug Abuse Patient Records regulations: The Federal rules restrict any use of the information to criminally investigate or prosecute any alcohol or drug abuse patient.[facility] the event this information is protected by the Federal Confidentiality of Alcohol and Drug Abuse Patient Records regulations: The Federal rules restrict any use of the information to criminally investigate or prosecute any alcohol or drug abuse patient.[facility] the event this information is protected by the Federal Confidentiality of Alcohol and Drug Abuse Patient Records regulations: The Federal rules restrict any use of the information to criminally investigate or prosecute any alcohol or drug abuse patient.[facility] HospitalIn the event this information is protected by the Federal Confidentiality of Alcohol and Drug Abuse Patient Records regulations: The Federal rules restrict any use of the information to criminally investigate or prosecute any alcohol or drug abuse patient.[facility] HospitalIn the event this information is protected by the Federal Confidentiality of Alcohol and Drug Abuse Patient Records regulations: The Federal rules restrict any use of the information to criminally investigate or prosecute any alcohol or drug abuse patient.[facility] HospitalIn the event this information is protected by the Federal Confidentiality of Alcohol and Drug Abuse Patient Records regulations: The Federal rules restrict any use of the information to criminally investigate or prosecute any alcohol or drug abuse patient.[facility] HospitalIn the event this information is protected by the Federal Confidentiality of Alcohol and Drug Abuse Patient Records regulations: The Federal rules restrict any use of the information to criminally investigate or prosecute any alcohol or drug abuse patient.[facility] HospitalIn the event this information is protected by the Federal Confidentiality of Alcohol and Drug Abuse Patient Records regulations: The Federal rules restrict any use of the information to criminally investigate or prosecute any alcohol or drug abuse patient.[facility] HospitalIn the event this information is protected by the Federal Confidentiality of Alcohol and Drug Abuse Patient Records regulations: The Federal rules restrict any use of the information to criminally investigate or prosecute any alcohol or drug abuse patient.[facility] HospitalIn the event this information is protected by the Federal Confidentiality of Alcohol and Drug Abuse Patient Records regulations: The Federal rules restrict any use of the information to criminally investigate or prosecute any alcohol or drug abuse patient.[facility] HospitalIn the event this information is protected by the Federal Confidentiality of Alcohol and Drug Abuse Patient Records regulations: The Federal rules restrict any use of the information to criminally investigate or prosecute any alcohol or drug abuse patient.[facility] HospitalIn the event this information is protected by the Federal Confidentiality of Alcohol and Drug Abuse Patient Records regulations: The Federal rules restrict any use of the information to criminally investigate or prosecute any alcohol or drug abuse patient.[facility] HospitalIn the event this information is protected by the Federal Confidentiality of Alcohol and Drug Abuse Patient Records regulations: The Federal rules restrict any use of the information to criminally investigate or prosecute any alcohol or drug abuse patient.[facility] HospitalIn the event this information is protected by the Federal Confidentiality of Alcohol and Drug Abuse Patient Records regulations: The Federal rules restrict any use of the information to criminally investigate or prosecute any alcohol or drug abuse patient.[facility] HospitalIn the event this information is protected by the Federal Confidentiality of Alcohol and Drug Abuse Patient Records regulations: The Federal rules restrict any use of the information to criminally investigate or prosecute any alcohol or drug abuse patient.[facility] HospitalIn the event this information is protected by the Federal Confidentiality of Alcohol and Drug Abuse Patient Records regulations: The Federal rules restrict any use of the information to criminally investigate or prosecute any alcohol or drug abuse patient.[facility] HospitalIn the event this information is protected by the Federal Confidentiality of Alcohol and Drug Abuse Patient Records regulations: The Federal rules restrict any use of the information to criminally investigate or prosecute any alcohol or drug abuse patient.[facility] HospitalIn the event this information is protected by the Federal Confidentiality of Alcohol and Drug Abuse Patient Records regulations: The Federal rules restrict any use of the information to criminally investigate or prosecute any alcohol or drug abuse patient.[facility] HospitalIn the event this information is protected by the Federal Confidentiality of Alcohol and Drug Abuse Patient Records regulations: The Federal rules restrict any use of the information to criminally investigate or prosecute any alcohol or drug abuse patient.[facility] HospitalIn the event this information is protected by the Federal Confidentiality of Alcohol and Drug Abuse Patient Records regulations: The Federal rules restrict any use of the information to criminally investigate or prosecute any alcohol or drug abuse patient.[facility] HospitalIn the event this information is protected by the Federal Confidentiality of Alcohol and Drug Abuse Patient Records regulations: The Federal rules restrict any use of the information to criminally investigate or prosecute any alcohol or drug abuse patient.[facility] HospitalIn the event this information is protected by the Federal Confidentiality of Alcohol and Drug Abuse Patient Records regulations: The Federal rules restrict any use of the information to criminally investigate or prosecute any alcohol or drug abuse patient.[facility] HospitalIn the event this information is protected by the Federal Confidentiality of Alcohol and Drug Abuse Patient Records regulations: The Federal rules restrict any use of the information to criminally investigate or prosecute any alcohol or drug abuse patient.[facility] the event this information is protected by the Federal Confidentiality of Alcohol and Drug Abuse Patient Records regulations: The Federal rules restrict any use of the information to criminally investigate or prosecute any alcohol or drug abuse patient.[facility] HospitalIn the event this information is protected by the Federal Confidentiality of Alcohol and Drug Abuse Patient Records regulations: The Federal rules restrict any use of the information to criminally investigate or prosecute any alcohol or drug abuse patient.[facility] HospitalIn the event this information is protected by the Federal Confidentiality of Alcohol and Drug Abuse Patient Records regulations: The Federal rules restrict any use of the information to criminally investigate or prosecute any alcohol or drug abuse patient.[facility] HospitalIn the event this information is protected by the Federal Confidentiality of Alcohol and Drug Abuse Patient Records regulations: The Federal rules restrict any use of the information to criminally investigate or prosecute any alcohol or drug abuse patient.[facility] HospitalIn the event this information is protected by the Federal Confidentiality of Alcohol and Drug Abuse Patient Records regulations: The Federal rules restrict any use of the information to criminally investigate or prosecute any alcohol or drug abuse patient.[facility] HospitalIn the event this information is protected by the Federal Confidentiality of Alcohol and Drug Abuse Patient Records regulations: The Federal rules restrict any use of the information to criminally investigate or prosecute any alcohol or drug abuse patient.[facility] HospitalIn the event this information is protected by the Federal Confidentiality of Alcohol and Drug Abuse Patient Records regulations: The Federal rules restrict any use of the information to criminally investigate or prosecute any alcohol or drug abuse patient.[facility] HospitalIn the event this information is protected by the Federal Confidentiality of Alcohol and Drug Abuse Patient Records regulations: The Federal rules restrict any use of the information to criminally investigate or prosecute any alcohol or drug abuse patient.[facility] HospitalIn the event this information is protected by the Federal Confidentiality of Alcohol and Drug Abuse Patient Records regulations: The Federal rules restrict any use of the information to criminally investigate or prosecute any alcohol or drug abuse patient.[facility] HospitalIn the event this information is protected by the Federal Confidentiality of Alcohol and Drug Abuse Patient Records regulations: The Federal rules restrict any use of the information to criminally investigate or prosecute any alcohol or drug abuse patient.[facility] HospitalIn the event this information is protected by the Federal Confidentiality of Alcohol and Drug Abuse Patient Records regulations: The Federal rules restrict any use of the information to criminally investigate or prosecute any alcohol or drug abuse patient.[facility] HospitalIn the event this information is protected by the Federal Confidentiality of Alcohol and Drug Abuse Patient Records regulations: The Federal rules restrict any use of the information to criminally investigate or prosecute any alcohol or drug abuse patient.[facility] HospitalIn the event this information is protected by the Federal Confidentiality of Alcohol and Drug Abuse Patient Records regulations: The Federal rules restrict any use of the information to criminally investigate or prosecute any alcohol or drug abuse patient.[facility] HospitalIn the event this information is protected by the Federal Confidentiality of Alcohol and Drug Abuse Patient Records regulations: The Federal rules restrict any use of the information to criminally investigate or prosecute any alcohol or drug abuse patient.[facility] HospitalIn the event this information is protected by the Federal Confidentiality of Alcohol and Drug Abuse Patient Records regulations: The Federal rules restrict any use of the information to criminally investigate or prosecute any alcohol or drug abuse patient.[facility] HospitalIn the event this information is protected by the Federal Confidentiality of Alcohol and Drug Abuse Patient Records regulations: The Federal rules restrict any use of the information to criminally investigate or prosecute any alcohol or drug abuse patient.[facility] HospitalIn the event this information is protected by the Federal Confidentiality of Alcohol and Drug Abuse Patient Records regulations: The Federal rules restrict any use of the information to criminally investigate or prosecute any alcohol or drug abuse patient.[facility] HospitalIn the event this information is protected by the Federal Confidentiality of Alcohol and Drug Abuse Patient Records regulations: The Federal rules restrict any use of the information to criminally investigate or prosecute any alcohol or drug abuse patient.[facility] HospitalIn the event this information is protected by the Federal Confidentiality of Alcohol and Drug Abuse Patient Records regulations: The Federal rules restrict any use of the information to criminally investigate or prosecute any alcohol or drug abuse patient.[facility] HospitalIn the event this information is protected by the Federal Confidentiality of Alcohol and Drug Abuse Patient Records regulations: The Federal rules restrict any use of the information to criminally investigate or prosecute any alcohol or drug abuse patient.[facility] Care Teams (unrecognized sec tion and content) Sports Manager Relationship Specialty Start Date End Date Cee Christianson MD [address] [place] [id number] PCP - General 06/24/02 Sports Manager Relationship Specialty Start Date End Date Cee Christianson MD [address] [place] [address] PCP - General 06/24/02 Sports Manager Relationship Specialty Start Date End Date Cee Christianson MD [address] [place] [address] PCP - General 06/24/02 Sports Manager Relationship Specialty Start Date End Date Cee Christianson MD [address] [place] [address] [place] [address] PCP - General 06/24/02 Sports Manager Relationship Specialty Start Date End Date Cee Christianson MD [address] [place] [address] PCP - General 06/24/02 Sports Manager Relationship Specialty Start Date End Date Cee Christianson MD [address] [place] [address] PCP - General 06/24/02 Sports Manager Relationship Specialty Start Date End Date Cee Christianson MD [address] [place] [address] PCP - General 06/24/02 Sports Manager Relationship Specialty [place] [address] [place] [address] PCP - General 06/24/02 Sports Manager Relationship Specialty Start Date End Date Cee Christianson MD [address] [place] [address] PCP - General 06/24/02 Sports Manager Relationship Specialty Start Date End Date Cee Christianson MD [address] [place] [address] PCP - General 06/24/02 Sports Manager Relationship Specialty Start Date End Date Cee Christianson MD [address] [place] [address] PCP - General 06/24/02 Sports Manager Relationship Specialty Start Date End Date Cee Christianson MD [address] [place] [address] PCP - General 06/24/02 Sports Manager Relationship Specialty Start Date End Date Cee Christianson MD [address] [place] [address] PCP - General 06/24/02 Sports Manager Relationship Specialty Start Date End Date Cee Christianson MD [address] [place] [address] PCP - General 06/24/02 Sports Manager Relationship Specialty Start Date End Date Cee Christianson MD [address] [place] [address] PCP - General 06/24/02 Sports Manager Relationship Specialty Start Date End Date eCe Christianson MD [address] [place] [address] PCP - General 06/24/02 Sports Manager Relationship Specialty Start Date End Date Cee Christianson MD [address] [place] [address] PCP - General 06/24/02 Sports Manager Relationship Specialty Start Date End Date Cee Christianson MD [address] [place] [address] PCP - General 06/24/02 Sports Manager Relationship Specialty Start Date End Date Cee Christianson MD [address] [place] [address] PCP - General 06/24/02 Sports Manager Relationship Specialty Start Date End Date Cee Christianson MD [address] [place] [address] PCP - General 06/24/02 Sports Manager Relationship Specialty Start Date End Date Cee Christianson MD [address] [place] [address] PCP - General 06/24/02 Sports Manager Relationship Specialty Start Date End Date Cee Christianson MD [address] [place] [address] PCP - General 06/24/02 Sports Manager Relationship Specialty Start Date End Date Cee Christianson MD [address] [place] [address] PCP - General 06/24/02 Sports Manager Relationship Specialty Start Date End Date Cee Christianson MD [address] [place] [address] PCP - General 06/24/02 Sports Manager Relationship Specialty Start Date End Date Cee Christianson MD [address] [place] [address] PCP - General 06/24/02 Sports Manager Relationship Specialty Start Date End Date Cee Christianson MD [address] [place] [address] PCP - General 06/24/02 Sports Manager Relationship Specialty Start Date End Date Cee Christianson MD [address] [place] [address] PCP - General 06/24/02 Sports Manager Relationship Specialty Start Date End Date Cee Christianson MD [address] [place] [address] PCP - General 06/24/02 Sports Manager Relationship Specialty Start Date End Date Cee Christianson MD [address] [place] [address] PCP - General 06/24/02 Sports Manager Relationship Specialty Start Date End Date Cee Christianson MD [address] [place] [address] PCP - General 06/24/02 Sports Manager Relationship Specialty Start Date End Date Cee Christianson MD [address] [place] [address] PCP - General 06/24/02 Zakia Sneed, JOURNEYMAN ELECTRICIAN PV INSTALLER.OFFENDER EMPLOYMENT SPECIALIST [address] [place] [address] General Superintendent Internal Medicine 07/24/24 Thuy Stewart JOURNEYMAN ELECTRICIAN PV INSTALLER.ADJUNCT PROFESSOR [address] [place] [address] General Superintendent Internal Medicine 07/24/24 Sports Manager Relationship Specialty Start Date End Date Cee Christianson MD [address] [place] [address] PCP - General 06/24/02 Zakia Sneed, JOURNEYMAN ELECTRICIAN PV INSTALLER.OFFENDER EMPLOYMENT SPECIALIST [address] [place] [address] General Superintendent Internal Medicine 07/24/24 Thuy Stewart JOURNEYMAN ELECTRICIAN PV INSTALLER.ADJUNCT PROFESSOR [address] [place] [address] General Superintendent Internal Medicine 07/24/24 Sports Manager Relationship Specialty Start Date End Date Cee Christianson MD [address] [place] [address] PCP - General 06/24/02 Zakia Sneed, JOURNEYMAN ELECTRICIAN PV INSTALLER.OFFENDER EMPLOYMENT SPECIALIST [address] [place] [address] General Superintendent Internal Medicine 07/24/24 Thuy Stewart JOURNEYMAN ELECTRICIAN PV INSTALLER.ADJUNCT PROFESSOR [address] [place] [address] [facility] Internal Medicine 07/24/24 Sports Manager Relationship Specialty Start Date End Date Cee Christianson MD [address] [place] [address] PCP - General 06/24/02 Zakia Sneed, JOURNEYMAN ELECTRICIAN PV INSTALLER.OFFENDER EMPLOYMENT SPECIALIST [address] [place] [address] [facility] Internal Medicine 07/24/24 Thuy Stewart JOURNEYMAN ELECTRICIAN PV INSTALLER.ADJUNCT PROFESSOR [address] [place] [address] [facility] Internal Medicine 07/24/24 Sports Manager Relationship Specialty Start Date End Date Cee Christianson MD [address] [place] [address] PCP - General 06/24/02 Zakia Sneed, JOURNEYMAN ELECTRICIAN PV INSTALLER.OFFENDER EMPLOYMENT SPECIALIST [address] [place] [address] [facility] Internal Medicine 07/24/24 Thuy Stewart JOURNEYMAN ELECTRICIAN PV INSTALLER.ADJUNCT PROFESSOR [address] [place] [address] [facility] Internal Medicine 07/24/24 Sports Manager Relationship Specialty Start Date End Date Cee Christianson MD [address] [place] [address] PCP - General 06/24/02 Zakia Sneed, JOURNEYMAN ELECTRICIAN PV INSTALLER.OFFENDER EMPLOYMENT SPECIALIST [address] [facility] [place] [address] General Superintendent Internal Medicine 07/24/24 Thuy Stewart APRN.ADJUNCT PROFESSOR [address] [facility] [place] [address] General Superintendent Internal Medicine 07/24/24 Sports Manager Relationship Specialty Start Date End Date Cee Christianson MD [address] [facility] [place] [address] PCP - General 06/24/02 Zakia Sneed APRN.OFFENDER EMPLOYMENT SPECIALIST [address] [facility] [place] [address] General Superintendent Internal Medicine 07/24/24 Thuy Stewart APRN.ADJUNCT PROFESSOR [address] [place] [address] General Superintendent Internal Medicine 07/24/24 Sports Manager Relationship Specialty Start Date End Date Cee Christianson MD [address] [place] [address] PCP - General 06/24/02 Zakia Sneed APRN.OFFENDER EMPLOYMENT SPECIALIST [address] [facility] [place] [address] General Superintendent Internal Medicine 07/24/24 Thuy Stewart APRN.ADJUNCT PROFESSOR [address] [facility] [place] [address] General Superintendent Internal Medicine 07/24/24 Sports Manager Relationship Specialty Start Date End Date Cee Christianson MD [address] [facility] [place] [address] PCP - General 06/24/02 Zakia Sneed, JOURNEYMAN ELECTRICIAN PV INSTALLER.OFFENDER EMPLOYMENT SPECIALIST [address] [place] [address] General Superintendent Internal Medicine 07/24/24 Thuy Stewart JOURNEYMAN ELECTRICIAN PV INSTALLER.ADJUNCT PROFESSOR [address] [facility] [place] [address] General Superintendent Internal Medicine 07/24/24 Sports Manager Relationship Specialty Start Date End Date Cee Christianson MD [address] [place] [address] PCP - General 06/24/02 Zakia Sneed, JOURNEYMAN ELECTRICIAN PV INSTALLER.OFFENDER EMPLOYMENT SPECIALIST [address] [facility] [place] [address] General Superintendent Internal Medicine 07/24/24 Thuy Stewart JOURNEYMAN ELECTRICIAN PV INSTALLER.ADJUNCT PROFESSOR [address] [place] [address] General Superintendent Internal Medicine 07/24/24 Sports Manager Relationship Specialty Start Date End Date Cee Christianson MD [address] [facility] [place] [address] PCP - General 06/24/02 Zakia Sneed, JOURNEYMAN ELECTRICIAN PV INSTALLER.OFFENDER EMPLOYMENT SPECIALIST [address] [facility] [place] [address] General Superintendent Internal Medicine 07/24/24 Thuy Stewart JOURNEYMAN ELECTRICIAN PV INSTALLER.ADJUNCT PROFESSOR [address] [facility] [place] [address] General Superintendent Internal Medicine 07/24/24 Sports Manager Relationship Specialty Start Date End Date Cee Christianson MD [address] [place] [address] PCP - General 06/24/02 Zakia Sneed, JOURNEYMAN ELECTRICIAN PV INSTALLER.OFFENDER EMPLOYMENT SPECIALIST [address] [place] [address] General Superintendent Internal Medicine 07/24/24 Thuy Stewart JOURNEYMAN ELECTRICIAN PV INSTALLER.ADJUNCT PROFESSOR [address] [place] [address] General Superintendent Internal Medicine 07/24/24 Sports Manager Relationship Specialty Start Date End Date Cee Christianson MD [address] [place] [address] PCP - General 06/24/02 Zakia Sneed, JOURNEYMAN ELECTRICIAN PV INSTALLER.OFFENDER EMPLOYMENT SPECIALIST [address] [place] [address] General Superintendent Internal Medicine 07/24/24 Thuy Stewart JOURNEYMAN ELECTRICIAN PV INSTALLER.ADJUNCT PROFESSOR [address] [place] [address] General Superintendent Internal Medicine 07/24/24 Sports Manager Relationship Specialty Start Date End Date Cee Christianson MD [address] [place] [address] PCP - General 06/24/02 Zakia Sneed, JOURNEYMAN ELECTRICIAN PV INSTALLER.OFFENDER EMPLOYMENT SPECIALIST [address] [place] [address] General Superintendent Internal Medicine 07/24/24 Thuy Stewart JOURNEYMAN ELECTRICIAN PV INSTALLER.ADJUNCT PROFESSOR [address] [facility] [place] [address] General Superintendent Internal Medicine 11/07/24 Sports Manager Relationship Specialty Start Date End Date Cee Christianson MD [address] [facility] [place] [address] PCP - General 06/24/02 Zakia Sneed, JOURNEYMAN ELECTRICIAN PV INSTALLER.OFFENDER EMPLOYMENT SPECIALIST [address] [facility] [place] [address] General Superintendent Internal Medicine 07/24/24 Thuy Stewart JOURNEYMAN ELECTRICIAN PV INSTALLER.ADJUNCT PROFESSOR [address] [facility] [place] [address] General Superintendent Internal Medicine 11/07/24 Sports Manager Relationship Specialty Start Date End Date Cee Christianson MD [address] [facility] [place] [address] PCP - General 06/24/02 Zakia Sneed, JOURNEYMAN ELECTRICIAN PV INSTALLER.OFFENDER EMPLOYMENT SPECIALIST [address] [facility] [place] [address] General Superintendent Internal Medicine 07/24/24 Thuy Stewart JOURNEYMAN ELECTRICIAN PV INSTALLER.ADJUNCT PROFESSOR [address] [facility] [place] [address] General Superintendent Internal Medicine 07/24/24 11/03/24 Thuy Stewart JOURNEYMAN ELECTRICIAN PV INSTALLER.ADJUNCT PROFESSOR [address] [facility] [place] [address] General Superintendent Internal Medicine 11/07/24 Sports Manager Relationship Specialty Start Date End Date Cee Christianson MD [address] [facility] [place] [address] PCP - General 06/24/02 Zakia Sneed, JOURNEYMAN ELECTRICIAN PV INSTALLER.OFFENDER EMPLOYMENT SPECIALIST [address] [facility] [place] [address] General Superintendent Internal Medicine 07/24/24 Thuy Stewart JOURNEYMAN ELECTRICIAN PV INSTALLER.ADJUNCT PROFESSOR [address] [place] [address] [facility] Internal Medicine 11/07/24 Sports Manager Relationship Specialty Start Date End Date Cee Christianson MD [address] [place] [address] PCP - General 06/24/02 Zakia Sneed, JOURNEYMAN ELECTRICIAN PV INSTALLER.OFFENDER EMPLOYMENT SPECIALIST [address] [place] [address] General Superintendent Internal Medicine 07/24/24 Thuy Stewart JOURNEYMAN ELECTRICIAN PV INSTALLER.ADJUNCT PROFESSOR [address] [place] [address] [facility] [facility] 11/07/24 Sports Manager Relationship Specialty Start Date End Date Cee Christianson MD [address] [place] [address] PCP - General 06/24/02 Zakia Sneed, JOURNEYMAN ELECTRICIAN PV INSTALLER.OFFENDER EMPLOYMENT SPECIALIST [address] [facility] [place] [address] [facility] Internal Medicine 07/24/24 Thuy Stewart JOURNEYMAN ELECTRICIAN PV INSTALLER.ADJUNCT PROFESSOR [address] [place] [address] General Superintendent Internal Medicine 07/24/24 11/03/24 Thuy Stewart APRN.ADJUNCT PROFESSOR [address] [facility] [place] [address] General Superintendent Internal Medicine 11/07/24 Sports Manager Relationship Specialty Start Date End Date Cee Christianson MD [address] [facility] [place] [address] PCP - General 06/24/02 Zakia Sneed, JOURNEYMAN ELECTRICIAN PV INSTALLER.OFFENDER EMPLOYMENT SPECIALIST [address] [facility] [place] [address] General Superintendent Internal Medicine 07/24/24 Thuy Stewart JOURNEYMAN ELECTRICIAN PV INSTALLER.ADJUNCT PROFESSOR [address] [facility] [place] [address] General Superintendent Internal Medicine 11/07/24 Sports Manager Relationship Specialty Start Date End Date Cee Christianson MD [address] [facility] [place] [address] PCP - General 06/24/02 Zakia Sneed, JOURNEYMAN ELECTRICIAN PV INSTALLER.OFFENDER EMPLOYMENT SPECIALIST [address] [facility] [place] [address] General Superintendent Internal Medicine 07/24/24 Thuy Steawrt JOURNEYMAN ELECTRICIAN PV INSTALLER.ADJUNCT PROFESSOR [address] [facility] [place] [address] General Superintendent Internal Medicine 11/07/24 Sports Manager Relationship Specialty Start Date End Date Cee Christianson MD [address] [facility] [place] [address] PCP - General 06/24/02 Zakia Sneed, JOURNEYMAN ELECTRICIAN PV INSTALLER.OFFENDER EMPLOYMENT SPECIALIST [address] [place] [address] General Superintendent Internal Medicine 07/24/24 Thuy Stewart, JOURNEYMAN ELECTRICIAN PV INSTALLER.ADJUNCT PROFESSOR [address] [place] [address] General Superintendent Internal Medicine 11/07/24 Sports Manager Relationship Specialty Start Date End Date Cee Christianson [address] [place] [address] PCP - General 06/22/19 Sports Manager Relationship Specialty Start Date End Date Cee Christianson [address] [place] [address] PCP - General 06/22/19 Sports Manager Relationship Specialty Start Date End Date Cee Christianson MD [address] [place] [address] PCP - General 06/24/02 Thuy Stewart, JOURNEYMAN ELECTRICIAN PV INSTALLER.ADJUNCT PROFESSOR [address] [place] [address] General Superintendent Internal Medicine 11/07/24 Zakia Sneed, FELIX.OFFENDER EMPLOYMENT SPECIALIST [address] [place] [address] General Superintendent Internal Medicine 01/03/25 Sports Manager Relationship Specialty Start Date End Date Cee Christianson [address] [place] [address] PCP - General 06/22/19 Sports Manager Relationship Specialty Start Date End Date Cee Christianson MD [address] [place] [address] PCP - General 06/24/02 Zakia Sneed, JOURNEYMAN ELECTRICIAN PV INSTALLER.OFFENDER EMPLOYMENT SPECIALIST [address] [place] [address] [facility] Internal Medicine 07/24/24 01/02/25 Thuy Stewart, JOURNEYMAN ELECTRICIAN PV INSTALLER.ADJUNCT PROFESSOR [address] [place] [address] [facility] Internal Medicine 11/07/24 Zakia Sneed, JOURNEYMAN ELECTRICIAN PV INSTALLER.OFFENDER EMPLOYMENT SPECIALIST [address] [place] [address] [facility] Internal Medicine 01/03/25 Sports Manager Relationship Specialty Start Date End Date Cee Christianson MD [address] [place] [address] PCP - General 06/24/02 Zakia Sneed, JOURNEYMAN ELECTRICIAN PV INSTALLER.OFFENDER EMPLOYMENT SPECIALIST [address] [place] [address] [facility] Internal Medicine 07/24/24 01/02/25 Thuy Stewart, JOURNEYMAN ELECTRICIAN PV INSTALLER.ADJUNCT PROFESSOR [address] [place] [address] [facility] Internal Medicine 11/07/24 Zakia Sneed, JOURNEYMAN ELECTRICIAN PV INSTALLER.OFFENDER EMPLOYMENT SPECIALIST [address] [place] [address] [facility] Internal Medicine 01/03/25 Sports Manager Relationship Specialty Start Date End Date Cee Christianson MD [address] [place], [place] [address] PCP - General 06/24/02 Thuy Stewart JOURNEYMAN ELECTRICIAN PV INSTALLER.ADJUNCT PROFESSOR [address] [facility] [place] [address] General Superintendent Internal Medicine 11/07/24 Zakia Sneed, JOURNEYMAN ELECTRICIAN PV INSTALLER.OFFENDER EMPLOYMENT SPECIALIST [address] [facility] [place] [address] General Superintendent Internal Medicine 01/03/25 Sports Manager Relationship Specialty Start Date End Date Cee Christianson MD [address] [facility] [place] [address] PCP - General 06/24/02 Thuy Stewart JOURNEYMAN ELECTRICIAN PV INSTALLER.ADJUNCT PROFESSOR [address] [facility] [place] [address] General Superintendent Internal Medicine 11/07/24 Zakia Sneed, JOURNEYMAN ELECTRICIAN PV INSTALLER.OFFENDER EMPLOYMENT SPECIALIST [address] [facility] [place] [address] General Superintendent Internal Medicine 01/03/25 Sports Manager Relationship Specialty Start Date End Date Cee Christianson MD [address] [facility] [place] [address] PCP - General 06/24/02 Thuy Stewart JOURNEYMAN ELECTRICIAN PV INSTALLER.ADJUNCT PROFESSOR [address] [facility] [place] [address] General Superintendent Internal Medicine 11/07/24 Zakia Sneed, JOURNEYMAN ELECTRICIAN PV INSTALLER.OFFENDER EMPLOYMENT SPECIALIST [address] [facility] [place] [address] General Superintendent Internal Medicine 01/03/25 Sports Manager Relationship Specialty Start Date End Date Cee Christianson MD [address] [place] [address] PCP - General 06/24/02 Thuy Stewart APRN.ADJUNCT PROFESSOR [address] [place], [place] [address] General Superintendent Internal Medicine 11/07/24 Zakia Sneed APRN.OFFENDER EMPLOYMENT SPECIALIST [address] [place], [place] [address] General Superintendent Internal Medicine 01/03/25 Reason for Visit (unrecogniz ed section and content) Reason Comments PT Discharge Specialty Diagnoses / Procedures Referred By Rafael t Referred To Contact [facility] Diagnoses Gait instability Procedures PT REHAB FOLLOW UP ORDER THERAPEUTIC EXERCISES RE, EA 15 MIN. Ruma Westfall MD [address] [place] [address] Phone: tel: fax: [facility] [address] [place] [address] Referral ID Status Reason Start Date Expiration Date Visits Requested Visits Authorized [id number] Authorized PCP Requested Referral Auto-Generate d Referral 11/03/2024 02/13/2025 8 8 Reason Comments Physical Therapy Reason Onset Date Comments Refill Request 12/15/2021 Reason Comments F/U 6 months Reason Onset Date Comments Opened In Error 02/20/2022 Reason Comments F/U 6 Month Reason Comments Recheck lisinopril dose Reason Comments Patient Update Blood Pressure Resul ts Reason Onset Date Comments Population Health Navigation Outreach 08/31/2022 [employer] care gaps Reason Comments F/U 6 months Reason Onset Date Comments Refill Request 02/25/2023 Reason Comments Refill Request Reason Onset Date Comments Refill Request 09/30/2023 Reason Onset Date Comments Refill Request 10/04/2023 Reason Comments Yearly Exam Reason Onset Date Comments Refill Request 09/24/2023 Reason Comments Medication Question is taking several zuniga pplements and son seen that there was a reaction between two supplements but she is unsure which it was. Knee Pain left knee Reason Comments New Pain Specialty Diagnoses / Procedures Referred By Contac t Referred To Contact Orthopedics Diagnoses Chronic pain of left knee Procedures CONSULT TO ORTHOPAEDICS OFFICE/OUTPATIENT [facility] 60 MINUTES Thuy Stewart APRN.CNP [address] [place] [address] Referral ID Status Reason Start Date Expiration Date V isits Requested Visits Authorized [id number] Closed PCP Requested Referral 12/14/2023 12/13/2024 1 1 Reason Onset Date Comments Refill Request 01/14/2024 Reason Comments Patient Question Reason Comments requesting information Reason Onset Date Comments Refill Request 03/29/2024 Reason Comments requesting medication Reason Onset Date Comments Refill Request 08/11/2024 Reason Comments Back Pain Lower back pain on r ight side shoots to left some times, frequency x 2 weeks Reason Comments Results Reason Comments Express Care follow-up Reason Comments Radiology US Specialty Diagnoses / Procedures Referred By Contac t Referred To Contact [facility] Diagnoses Urinary tract infection without hematuria, site unspecified Acute left-sided low back pain without sciatica Procedures US KIDNEY/BLADDER US RETROPERITONEAL REAL TIME W/IMAGE COMPLETE Pradeep Blanton MD [facility] [place] [address] Phone: tel: fax: [place] [address] Referral ID Status Reason Start Date Expiration Date V isits Requested Visits Authorized [id number] Closed Auto-Generate d Referral 09/21/2024 10/21/2025 1 1 Reason Comments Geriatric Evaluation Specialty Diagnoses / Procedures Referred By Contac t Referred To Contact Gerontology Diagnoses Memory deficit Procedures CONSULT TO GERIATRICS OFFICE/OUTPATIENT [facility] 60 MINUTES Cee Christianson MD [address] [place] [address] Phone: tel: fax: [place] [address] [place] [address] Phone: tel: fax: Referral ID Status Reason Start Date Expiration Date V isits Requested Visits Authorized [id number] Closed PCP Requested Referral 09/25/2024 09/25/2025 1 1 Reason Comments Patient appointment- may run late Reason Onset Date Comments Refill Request 10/16/2024 Reason Comments Med Change Request Reason Comments PT Eval Specialty Diagnoses / Procedures Referred By Contac t Referred To Contact [facility] Diagnoses Gait instability Procedures CONSULT TO PHYSICAL THERAPY PHYSICAL THERAPY EVALUATION HIGH COMPLEX 45 MINS Ruma Westfall MD [address] [facility] [place] [address] Phone: tel: fax: [facility] [address] [place] [address] Referral ID Status Reason Start Date Expiration Date V isits Requested Visits Authorized [id number] Closed Auto-Generate d Referral 08/16/2024 08/15/2025 1 1 Reason Comments Physical Reason Onset Date Comments Refill Request 11/10/2024 Reason Comments Follow Up Geriatric MRI follow up, w/daughter Holly Reason Comments Orders Reason Comments xrays on disc Reason Comments New Patient Needs spinal surgery Reason Onset Date Comments Population Health Navigation Outreach 01/16/2025 [facility] [employer] [place] FOR RECORDS PERTAINING TO PATIENTS WHO ARE OR HAVE BEEN ENROLLED IN A CHEMICAL DEPENDENCY/SUBSTANCEABUSE PROGRAM, SOME INFORMATION MAY BE OMITTED. This clinical summary was aggregated from multiple sources. Caution should be exercised in using it in the provision of clinical care. This summary normalizes information from multiple sources, and as a consequence, information in this document may materially change the coding, format and clinical context of patient data. In addition, data may be omitted in some cases. CLINICAL DECISIONS SHOULD BE BASED ON THE PRIMARY CLINICAL RECORDS. [facility] [employer] [facility]. provides no warranty or guarantee of the accuracy or completeness of information in this document.
[2025-02-17] MEDS: 0.9% Normal Saline (1000mL) 1,000 ML 1000 ML IV (19:38)
[2025-02-17 20:00] VITALS: BP 160/68; PULSE 80; RESP 20; TEMP 38.6; O2SAT 100
[2025-02-17 20:12] LABS: Anion Gap 15 (5-15); BUN 15 mg/dL (4-19); BUN/Creat Ratio 17.3 RATIO (10-20); Calcium,Total 8.4 mg/dL (7.6-11.0); Carbon Dioxide 17.3 mmol/L (21.0-32.0); Chloride 91 mmol/L (98-108); Estimated Creatinine Clearance 69.17 ml/min (50-250); Glucose 89 mg/dL (70-99); Potassium 4.5 mmol/L (3.3-5.1)
[2025-02-17 20:25] LABS: Hematocrit 34.4 % (37-47); Hemoglobin 11.9 g/dL (12.0-15.0); Immature Granulocytes Count 0.070 X10^3/uL (0.0-0.0); Mean Corp Hgb Conc 34.6 g/dL (32-36); Mean Corpuscular Volume 91.0 fL (81-99); Mean Platelet Vol. 10.0 fl (6.2-12.0); NRBC Flagged by Analyzer 0 % (0-5); Platelet Count 162 K/mm3 (150-450); RBC Distribution Width CV 13.8 % (11.6-14.6); RBC Distribution Width SD 45.9 fl (35.1-43.9); Red Blood Count 3.78 M/mm3 (4.2-5.4); White Blood Count 12.3 K/mm3 (4.4-11.0)
[2025-02-17 20:28] LABS: Mucous, Urine 0 SEEN /hpf (<or=2+); Red Blood Cells-Urine 0 SEEN /hpf (0-5); Squamous Epithelial Cells - UA 0 SEEN /hpf (5-10)
--- NOTE | 2025-02-17 20:35 | RAD_ITS ---
PROCEDURE: CHEST PA AND LATERAL 02/17/2025 REASON FOR EXAM: FEVER TECHNIQUE: CHEST PA AND LATERAL COMPARISON: No FINDINGS: Normal heart size. Well inflated lungs. No consolidation, effusion, or pneumothorax. RAD/Chest PA and Lateral IMPRESSION: No acute chest findings. Reading Location: [place] [address]
[2025-02-17 20:39] LABS: Color, Urine Yellow (Yellow); Glucose, Dipstick Normal (Normal); Ketone-Dipstick 50 mg/dl (Negative); Leukocyte Esterase-Dipstick 25 /ul (Negative); Nitrite-Dipstick Negative (Negative); Occult Blood-Urine 50 /ul (Negative); Protein-Dipstick 100 mg/dl (Negative); Specific Gravity, Urine 1.015 (1.002-1.030); Urine Bilirubin Dipstick Negative (Negative)
[2025-02-17 21:00] VITALS: BP 145/72; PULSE 70; RESP 21; TEMP 37.3; O2SAT 98
--- NOTE | 2025-02-17 21:05 | HP.PCM.HOS_ITS ---
[facility] - General General Date of Admission: 02/17/25 Date of Service: 02/17/25 Chief Complaint: Fever, Back Pain and Confusion. HPI Narrative REYNALDO CALDERON, is a 69 F with a past medical history of essential hypertension; on lisinopril and atenolol, hyperlipidemia; on atorvastatin, obesity; BMI of 37 this admission, chronic dementia; on donepezil, neuropathy; on gabapentin 4 times daily, chronic mild hyponatremia at ~129 mmol/L, history of tobacco abuse, allergic rhinitis; on fluticasone twice daily as needed plus montelukast, history of frequent UTIs, history of small bowel obstruction, history of wound after surgery and OA; with history of compression fractures and 2 prior back surgeries on meloxicam followed by Dr. Laurent of pain management who presents to [facility] ER complaining of fever and back pain. Ms. Calderon reports her symptoms began approximately 2 days prior to admission with back pain and flank pain along with urinary frequency. She states her symptoms are similar to her previous UTIs and her daughter has noted she is more confused than normal. She denies associated dysuria or hematuria. She also denies related runny nose, sore throat, ear pain, chest pain, palpitations, heart racing, lower extremity edema, shortness of breath, cough, abdominal pain, nausea, vomiting, diarrhea, arthralgias, myalgias, headache or rash. In the ER she spiked a temperature to 102.8 ?F with Leukocytosis of 12.3 K present on admission but with a urinalysis negative for infection complicated by Hyponatremia of 123 mmol/L present on admission compounded by clinical evidence of Acute Metabolic Encephalopathy in the setting of Chronic Dementia and she was then admitted to the general medical floor for ongoing care for state that is expected to extend beyond 2 midnights. [facility] Home Medications ?Medication ?Instructions ?Recorded ?Last Taken ?Type atenolol 25 mg tablet 25 mg PO DAILY 07/07/1710/02 History montelukast 10 mg tablet 10 mg PO DAILY 07/07/1710/02 History atorvastatin 10 mg tablet 10 mg PO DAILY 07/15/1710/02 History gabapentin 300 mg capsule 300 mg PO 4X/DAY 07/15/17 History fluticasone propionate 44 2 puff inhalation BID PRN Flavio wharton 07/17/17 Unknown History mcg/actuation HFA aerosol inhaler (Flovent HFA) donepezil 10 mg tablet 10 mg PO DAILY 02/17/25 Unkn own History lisinopril 40 mg tablet 40 mg PO DAILY 02/17/25 Unkn own History meloxicam 7.5 mg tablet 7.5 mg PO DAILY 02/17/25 Unk nown History Allergy/AdvReac Type Severity Reaction Status Date / Time Penicillins Allergy Anaphylaxis Verified 02/17/25 18:17 Social History Smoking Status: Former smoker ROS ROS Narrative Review of Systems: Constitutional: Patient noted to have fever and confusion as per HPI. She denies chills. Eyes: Patient denies changes in vision or discharge from eyes. ENT: Patient denies runny nose, sore throat or ear pain. Resp: Patient denies shortness of breath or cough. CV: Patient denies chest pain, palpitations, heart racing or lower extremity edema. GI: Patient denies abdominal pain, nausea, vomiting, diarrhea or constipation. : Patient admits urinary frequency as per HPI but she denies dysuria or hematuria. MSK: Patient admits to an acute worsening of her chronic back pain as per HPI. Skin: Patient denies rash, abscess, wounds or jaundice. Psych: Patient denies symptoms of uncontrolled depression or anxiety. Neuro: Patient admits to confusion but she denies headache, paresthesias or focal neurologic deficits. Allergy: Patient denies lip swelling, tongue swelling or urticaria. Hematology: Patient denies easy bleeding or easy bruisability. Endocrinology: Patient denies polyuria, polydipsia, polyphagia or heat/cold intolerance. 14 point ROS otherwise negative except for positives noted above in HPI. Vital Signs Vital Signs Vital Signs: 02/17/25 18:17 02/17/25 20:00 Temperature 102.8 F H 101.4 F H Temperature Source Oral Oral Pulse Rate 90 80 Respiratory Rate 18 20 H Blood Pressure 145/69 H 160/68 H Blood Pressure Mean 94 98 Pulse Ox 100 100 Oxygen Delivery Method Room Air Room Air Weight Weight: 215 lb 13.321 oz Body Mass Index (BMI) 37.0 Physical Exam Const alert, no apparent distress and average body habitus General Appearance: cooperative Orientation / Consciousness: confused HEENT normocephalic, head/scalp atraumatic and hearing grossly normal bilaterally HEENT Narrative: Mucous membranes dry. Eyes PERRL, EOMs intact bilaterally and conjunctivae normal Neck no lymphadenopathy, supple and no JVD Resp normal respiratory effort, no retractions, no use of accessory muscles and clear to auscultation bilaterally Cardio regular rate and regular rhythm GI normal to inspection, nondistended, normoactive bowel sounds, soft to palpation, non-tender and non-distended Extremity normal to inspection, full ROM and no clubbing, cyanosis or edema Skin Skin Narrative: Patient is evidence of rash, abscess, wounds or jaundice. Neuro CN's II-XII intact bilaterally, moves all extremities and no focal motor deficits Sensorium / Orientation: awake, alert, oriented to person and oriented to place Speech: speech normal Psych affect normal Results Medical Records Data Attestation: I reviewed the patient's medical records Lab / Micro Data Attestation: I reviewed the patient's lab results. 02/17/25 20:10 02/17/25 18:33 Labs: Laboratory Results - last 24 hr 02/17/25 18:33: Sodium 123 L, Potassium 4.5, Chloride 91 L, Carbon Dioxide 17.3 L, Anion Gap 15, BUN 15, Creatinine 0.86, Estim Creat Clear Calc 69.17, Est GFR (MDRD) Non-Af 73, BUN/Creatinine Ratio 17.3, Glucose 89, Calcium 8.4 02/17/25 20:10: WBC 12.3 H, RBC 3.78 L, Hgb 11.9 L, Hct 34.4 L, MCV 91.0, MCH 31.5, MCHC 34.6, RDW Std Deviation 45.9 H, RDW Coeff of Lian 13.8, Plt Count 162, MPV 10.0, Immature Gran % (Auto) 0.600, Neut % (Auto) 84.3 H, Lymph % (Auto) 8.4 L, Blackford % (Auto) 6.4, Eos % (Auto) 0.0, Baso % (Auto) 0.3, Absolute Neuts (auto) 10.4 H, Absolute Lymphs (auto) 1.03, Nucleated RBC % 0, Lactic Acid 1.5 02/17/25 20:23: Urine Color Yellow, Urine Clarity Clear, Urine pH 6.5, Ur Specific [place] 1.015, Urine Protein 100 H, Urine Glucose (UA) Normal, Urine Ketones 50 H, Urine Occult Blood 50 H, Urine Nitrite Negative, Urine Bilirubin Negative, Urine Urobilinogen Normal, Ur Leukocyte Esterase 25 H, Urine RBC 0 SEEN, Urine WBC 0-5 SEEN, Ur Squamous Epith Cells 0 SEEN, Urine Bacteria RARE, Urine Mucus 0 SEEN Imaging Radiology Impression Chest X-Ray 02/17/25 20:35 IMPRESSION: No acute chest findings. Reading Location: [facility] Imaging Services [address] [place] [address] Abdomen/Pelvis W IV Cont ONLY MR#: [id number] Acct: [id number] Name: REYNALDO CALDERON MADONNA Rep #: [id number] : 1955 F 69 From: Donta Sousa MD PCP: Dr. Mary Brunner MD Status: ADM IN Study: Abdomen/Pelvis W IV Cont ONLY Date of Exam: 02/17/25 Exam# [id number] Ordering Dr: Ramiro Garcia MD PROCEDURE: ABDOMEN/PELVIS W IV CONT ONLY 02/17/2025 REASON FOR EXAM: FEVER OF UNCERTAIN CAUSE. TECHNIQUE: ABDOMEN/PELVIS W IV CONT ONLY Coronal and Sagittal reconstruction series were provided. CONTRAST: Isovue 300 VOLUME: 98 mL One or more dose reduction techniques were used (e.g., Automated exposure control, adjustment of the mA and/or kV according to patient size, use of iterative reconstruction technique. RADIATION DOSE SUMMARY: CTDlvol: 4 mGy DLP: 1182 mGycm COMPARISON: No FINDINGS: Basilar atelectasis. Upper limits normal heart size. Diffuse hepatic steatosis, hepatomegaly, and mild cirrhotic morphology. Sub cm right lobe hypodensity favoring benign etiology. Cholelithiasis. Normal pancreas, spleen, adrenal glands. Left renal atrophy and scarring. Unremarkable right kidney. No hydronephrosis. No acute bladder pathology. Status post hysterectomy. No retroperitoneal or pelvic adenopathy. No free air. Nonobstructed bowel. Small bowel anastomosis. Rectus muscle diastasis. Lumbar spine scoliosis, degeneration, prior surgery. T11 vertebral body compression deformity which may be acute, there is some adjacent paraspinal soft tissue, favoring hemorrhage. CT/Abdomen/Pelvis W IV Cont ONLY IMPRESSION: Acute T11 vertebral body compression deformity with adjacent soft tissue favoring hemorrhage. Although infection could have a similar appearance, this would be much less likely. Advise correlation. Reading Location: [place] [address] CC: Dr. Ramiro Garcia MD; Dr. 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 Assessment & Plan Assessment/Plan (1) Compression fracture of T11 vertebra: QUALIFIERS: Encounter type: initial encounter Qualified Code(s): S22.080A - Wedge compression fracture of T11-T12 vertebra, initial encounter for closed fracture (2) Fever: QUALIFIERS: Fever type: unspecified Qualified Code(s): R50.9 - Fever, unspecified (3) Leukocytosis: QUALIFIERS: Leukocytosis type: unspecified Qualified Code(s): D 72.829 - Elevated white blood cell count, unspecified (4) Hyponatremia: (5) Acute exacerbation of chronic low back pain: (6) Acute metabolic encephalopathy: (7) Chronic dementia: (8) Obesity (BMI 30-39.9): PLAN: Plan 1. Fever of 102.8 ?F with Leukocytosis of 12.3 K present on admission but with a urinalysis negative for infection but with CT of the abdomen/pelvis revealing acute T11 vertebral body compression fracture deformity with adjacent soft tissue favoring hemorrhage although infection could have similar appearance - Admit to general medical floor. Check blood cultures and then start empiric IV doxycycline in light of allergy profile of penicillin allergy causing anaphylaxis and quinolones being contraindicated with donepezil. CT scan of the abdomen pelvis pending at this time to evaluate for potential source of infection. Check viral panel. Give ondansetron IV as needed for nausea and vomiting. Give acetaminophen as needed for pain or fever. Finally, we will consult orthopedic surgeon on-call to see this patient on rounds in the a.m. further recommendations with help appreciated in advance. 2. Hyponatremia of 123 mmol/L present on admission in the setting of mild chronic hyponatremia complicating #1 - Give NS IV fluid and recheck BMP every 6 hours to allow for gradual change of no more than 8-10 mmol/L per 24 hours. Check urine and serum osmolality. 3. Acute exacerbation of chronic back pain in the setting of previously known OA; with history of compression fractures and 2 prior back surgeries on meloxicam followed by Dr. Laurent of pain management compounding #1 & #2 - Check CT scan to evaluate for possible pathologic changes that would explain her symptoms. We will give Tylenol according to plan outlined #1. 4. Acute Metabolic Encephalopathy in the setting of Chronic Dementia due to #1 - #3 - Check TSH, B12, folate, UDS and WIN to broaden evaluation for possible reversible causes of confusion. Otherwise, continue conservative care plan as outlined above and minimize MANAGER PRODUCT MANAGEMENT-active medications in an effort to allow sensorium to clear. 5. Obesity (class II); BMI of 37 this admission adding to the burden of disease outlined from #1 - #4 - Weight loss will be recommended. Check TSH. 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 6. Essential hypertension; on lisinopril and atenolol - Maintain home regimen plus give as needed IV hydralazine for systolic blood pressure greater than 160 mmHg. 7. Hyperlipidemia; on atorvastatin - Resume statin for now. 8. Neuropathy; on gabapentin 4 times daily - Continue current therapy. 9. History of tobacco abuse - Tobacco cessation will be strongly encouraged with nicotine patch offered to control cravings. 10. Allergic rhinitis; on fluticasone twice daily as needed plus montelukast - Resume present treatment. 11. History of frequent UTIs - Noted with UA negative for infection time admission. 12. History of small bowel obstruction - Noted no signs of recurrence at this time. 13. History of wound after surgery - Noted. 14. DVT prophylaxis - Enoxaparin 40 mg subcu daily plus SCDs. Total time: Approximately (but not less than) 75 minutes. Charges/Coding Visit Charges Inpatient E&M: 04664 Init Hosp L3
--- OUTSIDE RECORDS SUMMARY | 2025-02-17 21:34 | XMS RPT_ITS | CCD ---
Author Organization [facility] Care Team Providers Care Computer Hardware Engineer Name Role Phone Talampas, Cee Unavailable Unavailable White, Nanci Unavailable Unavailable Slade Susan Unavailable Unavailable Paintsil, Ch[place] Unavailable Unavailable Stefano Garcia Unavailable Unavailable Talampas, Cee Unavailable Unavailable Talampas, Cee Unavailable Unavailable Mendoza Kline Unavailable Unavailable Mendoza Kline Unavailable Unavailable Cee Christianson MD Primary Care Provider Cee Christianson MD Primary Care Provider Cee Christianson MD Primary Care Provider Cee Christianson MD Primary Care Provider Sneed GUNSTOCK 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.STUMP BLOWER, Zakia Unavailable Sunitha GUNSTOCK 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.POLICE RECORDS CLERK, Thuy Unavailable Sunitha GUNSTOCK 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.POLICE RECORDS CLERK, Thuy Unavailable Sunitha GUNSTOCK 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.POLICE RECORDS CLERK, Thuy Unavailable RUMA WESTFALL Referring Unavailable TALAMPAS, CEE D Primary Care Unavailable Sunitha GUNSTOCK 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.POLICE RECORDS CLERK, Thuy Unavailable TALAMPAS, CEE D Referring Unavailable TALAMPAS, CEE D Primary Care Unavailable Talampas, Cee D Primary Care Provider Sneed GUNSTOCK 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.STUMP BLOWER, Zakia Unavailable Sneed GUNSTOCK 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.STUMP BLOWER, Zakia Unavailable PRINCE LORENZO Attending Unavailable TALAMPAS, [...] TALAMPAS, CEE D Primary Care Unavailable GANTA, RMUA Referring Unavailable SMITH CARO Attending Unavailable TALAMPAS, CEE D Primary Care Unavailable GORDOSMITH Attending Unavailable GANTA, URMA Referring Unavailable GANTA, RUMA Referring Unavailable TALAMPAS, [...] Drug Allergy 02-28-20 19 Shortness of Breath [facility] Doxycycline (2 sources) Doxycycline Drug Allergy 02-28-20 19 Other: See Comments [facility] Work Phone: guaiFENesin / Pseudoephedrine (2 sources) guaiFENesin / Pseudoephedrine Drug Allergy 04-17-[address] [facility] Work Phone: [phone] NSAIDs (2 sources) nabumetone Drug Allergy 04-17-[address] [facility] Penicillins (antibiotic) (2 sources) Penicillins Drug Allergy 04-17-20 05 Anaphylaxis, Shortness of Breath [facility] Work Phone: [phone] Quinolones (antibiotic) (2 sources) levoFLOXacin Drug Allergy 04-17-20 05 Other: See Comments [facility] Work Phone: (12 sources) Penicillins; Translations: [PENICILLINS] Drug allergy (disorder) 04-17-20 05 Anaphylaxis, Shortness of Breath [facility] (20 sources) Cephalosporins (Antibiotic); Translations: [CEPHALOSPORINS] Drug Allergy 02-28-20 19 Shortness of Breath [facility] (20 sources) Doxycycline; Translations: [DOXYCYCLINE] Drug Allergy 02-28-20 19 Other: See Comments, Other [facility] Work Phone: (20 sources) guaiFENesin / Pseudoephedrine; Translations: [PSEUDOEPHEDRINE-G UAIFENESIN] Drug Allergy 04-17-20 05 Intolerance, Other [facility] Work Phone: [phone] (20 sources) levoFLOXacin; Translations: [LEVOFLOXACIN] Drug Allergy 04-17-20 05 Other: See Comments [facility] Work Phone: (20 sources) nabumetone; Translations: [NABUMETONE] Drug Allergy 04-17-20 [address] [facility] Work Phone: [phone] (4 sources) Penicillins Propensity to adverse reactions 04-17-20 05 Anaphylaxis, Shortness of Breath [facility] Work Phone: [phone] (20 sources) Cephalosporins (Antibiotic) Drug Allergy 02-28-20 19 Shortness of Breath [facility] (20 sources) Penicillins Propensity to adverse reactions 04-17-20 05 Anaphylaxis, Shortness of Breath [facility] Work Phone: [phone] (15 sources) Penicillins Propensity to adverse reactions 04-17-20 05 Anaphylaxis, Shortness of Breath [facility] Work Phone: [phone] (4 sources) nabumetone Drug Allergy 04-17-20 05 Swelling [facility] (4 sources) Penicillins Drug Allergy 04-17-20 05 Anaphylaxis, Shortness of breath [facility] Medications Current Medications Medication Drug Class(es) Dates Sig (Normalized) Sig (Original) [id number] 200 actuat albuterol 0.09 mg/actuat metered dose [...] Take 10 mg by mouth once daily. kuhpmlbl-ekdjur-yyrwapwy acid (COLLAGEN 1500 PLUS C) 500 mg-800 mcg- 50 mg cap (20 sources) Start: 02-21-2024 collagen-bioti n-asco rbic acid (COLLAGEN 1500 PLUS C) 500 mg-800 mcg- 50 mg cap Take by mouth. 02/21/2024 Active Start: 02-21-2024 collagen-bioti n-ascorbic acid (COLLAGEN 1500 PLUS C) 500 mg- 800 mcg- 50 mg cap Take by mouth. 0 02/21/2024 Active JLBATJXX-HBEVWDJEDNDIQT-UAL C ORAL (20 sources) COLLAGEN-GLYCOSA MINOGLY-VIT C [...] Comment on above: Take 1 tablet by [facility] three times daily as needed (cramping and [...] Comment on above: Take 1 capsule by [facility] three times daily for 180 days. glucosamine/chondroitin/C/Ma [...] breakfast. Active take 1 capsule by [facility] once daily at breakfast omega-3 DHA-EPA (FISH OIL) 1,200 (144-21 6) mg capsule Take 1 capsule by mouth daily with breakfast. 0 Active OTC NUTRITIONAL SUPPLEMENT (20 sources) OTC NUTRITIONAL SUPPLEMENT Take by mouth once daily. Prevagen Active OTC NUTRITIONAL SUPPLEMENT Prevagen Active OTC NUTRITIONAL SUPPLEMENT Prevagen 0 Active polyethylene glycol 3350 113187 mg / potassium chloride 2970 mg / sodium bicarbonate 6740 mg / sodium chloride 5860 mg / sodium sulfate 98007 mg powder for oral solution (1 source) [...] on above: Take 1 capsule by [facility] once daily. Completed/Discontinued Medications Medication Drug Class(es) [...] tablet by mouth once jose g y RYDXKDE-NAOUNXXAD-SMEU ORAL Take 1 tablet by mouth once daily. 0 Active Comment on above: Take 1 tablet by [facility] once daily. cholecalciferol 0.01 mg oral capsule (14 sources) Vitamin D End: take 1 capsule by mouth once daily cholecalciferol, vitamin D3, 10 mcg (400 unit) cap Take 400 Units by mouth once daily. 0 12/14/2023 Discontinued Comment on above: Take 400 Units by [facility] once daily. collagen/biotin/ascorbic acid (COLLAGEN 1500 PLUS C ORAL) (14 sources) End: 4 collagen/biotin/asco rbic acid (COLLAGEN 1500 PLUS C ORAL) Take 1 capsule by mouth once daily. 0 12/14/2023 Discontinued collagen/biotin/ ascorbic acid (COLLAGEN 1500 PLUS C ORAL) Take 1 capsule by mouth once daily. 0 Active Comment on above: Take 1 capsule by [facility] once daily. 1 ml fentaNYL 0.05 mg/ml [...] Comment on above: Take 1 capsule by [facility] once daily. 12 hr guaiFENesin 1200 mg extended release oral tablet (3 sources) Start: 2 End: 3 take 1 tablet by mouth twice daily guaiFENesin (MUCINEX) 1,200 mg Ta12 Indications: Bronchitis Take 1 tablet by mouth twice daily. 42 tablet 0 07/29/2022 12/18/2022 Discontinued Comment on above: Take 1 tablet by [facility] twice daily. 10 ml lidocaine hydrochloride 10 [...] triamcinolone acetonide 80 mg injection (KeNALog 40) PWGFADK-VJYT-XEQLM-OR EG-CAPRYL ORAL (14 sources) End: 12-14-19 take 1 tablet by mouth once daily DIIKLJX-OKMH-QYDPN-O REG-CAPRYL ORAL Take 1 tablet by mouth once daily. 0 12/14/2023 Discontinued take 1 tablet by anali th once daily MEPLIHG-YNUZ-IEPJU-OREG-CAPRYL ORAL Take 1 tablet by mouth once [...] current use of drug therapy; Translations: [Other snf (current) drug therapy] 09-25-2024 Episodic Other connective [...] 02-19-2012 Episodic Other aftercare (1 source) Other filler leaf cutter long (current) drug therapy; Translations: [Encounter for long-term [...] OT/PT/Speech Visit ( PTWS) -- SUSAN CALDERON ([id number]) 1955 F TXT Date Time Provider Department 02/12/25 10:45 AM SMITH CARO PTWS Date Time Provider Department Center 02/12/2025 10:45 AM [id number], COREY PTWS Daina Palmer Reason for Visit: [...] 99 mg by mouth once daily. - VBQLDRJY-TFBBJTLFRWRQNT-PZ T C ORAL Take by mouth once [...] by mouth two times a day. - rawydpcv-pfsurc-ebpybjlo acid (COLLAGEN 1500 PLUS C) 500 mg-800 [...] as needed for wheezing/shortness of breath. Normal [facility] CNTHERAPYon 02-08-2025 CNTHERAPY OT/PT/Speech Visit ( PTWS) -- SUSAN CALDERON ([id number]) 1955 F TXT Date Time Provider Department 02/08/25 10:45 AM SMITH ACRO PTWS Date Time Provider Department [place] 02/08/2025 10:45 AM [id number], COREY PTWS Daina Palmer Reason for Visit: [...] 99 mg by mouth once daily. - IGBNGRBA-TWNVGYXHZBLRDH-ET T C ORAL Take by mouth once [...] by mouth two times a day. - jkrcxgdu-gtodiy-mzzcxpvq acid (COLLAGEN 1500 PLUS C) 500 mg-800 [...] as needed for wheezing/shortness of breath. Normal [facility] CNTHERAPYon 02-05-2025 CNTHERAPY OT/PT/Speech Visit ( PTWS) -- SUSAN CALDERON ([id number]) 1955 F TXT Date Time Provider Department 02/05/25 9:15 AM SMITH CARO PTSENTHIL Date Time Provider Department Center 02/05/2025 9:15 AM [id number], COREY PTWS Daina Palmer Reason for Visit: [...] 99 mg by mouth once daily. - YLKBWDSX-UDMYUQCICDPJBI-FQ T C ORAL Take by mouth once [...] by mouth two times a day. - igelaucw-kwekql-vorozurj acid (COLLAGEN 1500 PLUS C) 500 mg-800 [...] as needed for wheezing/shortness of breath. Normal [facility] CNTHERAPYon 06-12-2025 CNTHERAPY OT/PT/Speech Visit ( PTWS) -- SUSAN CALDERON ([id number]) 1955 F TXT Date Time Provider Department 01/25/25 10:45 AM SMITH CARO PTWS Date Time Provider Department [place] 01/25/2025 10:45 AM [id number], COREY PTWS Daina Palmer Reason for Visit: [...] 99 mg by mouth once daily. - ZPQXYFQI-ACWLVFDZNUWYAG-OF T C ORAL Take by mouth once [...] by mouth two times a day. - vivsihlv-igjrdu-cvqkedej acid (COLLAGEN 1500 PLUS C) 500 mg-800 [...] as needed for wheezing/shortness of breath. Normal [facility] CNTHERAPYon 01-10-2025 CNTHERAPY OT/PT/Speech Visit ( PTWS) -- YOHANASUSAN BROOKS ([id number]) 1955 F TXT Date Time Provider Department 01/10/25 8:00 AM CHRISTIN WALSH PTWS Date Time Provider Department Center 01/10/2025 8:00 AM [id number], MARIAH PTWS Daina Mill Reason for Visit: [...] 99 mg by mouth once daily. - AIDBOOLP-BVZAZVDBVVDIFA-FZ T C ORAL Take by mouth once [...] by mouth two times a day. - uyevqiup-jipqel-yystrzsi acid (COLLAGEN 1500 PLUS C) 500 mg-800 [...] hours as needed for wheezing/shortness of breath. [facility] 29on 01-09-2025 29 Addended by: JULIETA MEEKS on: 01/09/2025 09:23 AM Modules accepted: [facility] [id number] 01-05-2025 [id number] HNO ID: [id number] Author: SMITH CARO PT Service: ? Author Type: Physical Therapist Type: [id number] Filed: 01/05/2025 12:49 Note Text: [facility] Rehabilitation and Sports Therapy Physical Therapy Plan of Care Certification Patient Name: Susan Calderon : 1955 CCF #: [id number] Date: 01/04/2025 To: Prince Lorenzo From Therapist: [...] Planned: 6 Planned Treatment Interventions: Therapeutic exercise (15036), Neuromuscular re-education (80161), Manual therapy (72765), Therapeutic activities (11876), Self-chcf management (98640), Patient/Family/Caregiver Education PLAN FOR NEXT VISIT: Core [...] the treatment plan for Susan Calderon, CCF# [id number] for the period of 01/04/25 -- 02/08/25, established on 01/04/2025. Signature certifies the need for therapy services. [facility] OT/PT/Speech Visit ( PTWS) -- SUSAN CALDERON ([id number]) 1955 F TXT Date Time Provider Department 01/04/25 9:15 AM SMITH CARO PTWS Date Time Provider Department [place] 01/04/2025 9:15 AM [id number], COREY PTWS Daina Palmer Reason for Visit: [...] 99 mg by mouth once daily. - HRTYGQQE-CXSIWDEXRKCOXL-JV T C ORAL Take by mouth once [...] by mouth two times a day. - rloxqvfv-cjmvwu-pihopriw acid (COLLAGEN 1500 PLUS C) 500 mg-800 [...] for wheezing/shortness of breath. Letter Text Normal [facility] 36on 01-03-2025 36 Name of caller: Carolann lucas Contact phone number: [phone] Relationship to Patient: patient Provider: Dr. Lorenzo Practice: neuro Chief Complaint/Reason for Call: Pt states she was informed by the pain mgt office of [facility] that the referral has not been received. Please advise. Best time of day caller can be reached: any Patient advised that office/PCP has 24-48 business hours to return their call: N/A [facility] 36on 01-02-2025 36 We wanted to inform you that your patient's blood pressure was noted to be elevated in our specialty office today. We thank you for trusting us with your patient's health. BP Readings from Last 1 Encounters: 01/02/25 (!) 142/84 [facility] Office Visiton 01-02-2025 Follow-up visit [id number] Justice Calderon 1955 F Date Provider Department Center 01/02/2025 [id number] LORENZO [facility] NROSURG None Family History Problem Relation Age of Onset Stroke Mother Comments: aneurysm Lung cancer Father Family Status - Relation Status Age at Mother Father Brother Alive Level of Service:31684 UT OFFICE/OUTPATIENT NEW MODERATE MDM 45 MINUTES Reason for Visit and Comments: New Patient [542] - Needs spinal surgery [facility] Progress Noteon 01-02-2025 Progress Note NEUROSURGERY CONSULT [...] has magdy (more content not included)... Normal [facility] MR Lumbar spine WO contrasto n 12-30-2024 IMPRESSION: 1. Degenerative and postsurgical changes of the lumbar spine as discussed level by level in the body of the report. No severe spinal canal stenosis. 2. Acute to subacute compression deformity of T11 with approximately 50% height loss and minimal retropulsion of the superior endplate contributing to mild spinal canal narrowing. Anatomic Lumbar Variant: Recyclable Materials Collector: APRYL Transcribe Date/Time: Dec 30 2024 9:36A Dictated by : GIFTY VAZQUEZ MD This examination was interpreted and the report reviewed and electronically signed by: GIFTY VAZQUEZ MD on Dec 30 2024 9:42AM EST [facility] * * *Final Report* * [...] within normal limits. [facility] Provider, [facility] Bg ashley Homer - 12/30/2024 * * *Final Report* * [...] mild spinal canal narrowing. Anatomic Lumbar Variant: Recyclable Materials Collector: APRYL Transcribe Date/Time: Dec 30 2024 9:36A Dictated by : GIFTY VAZQUEZ MD This examination was interpreted and the report reviewed and electronically signed by: GIFTY VAZQUEZ MD on Dec 30 2024 9:42AM EST [facility] Radiology Study observation (narrative) [facility] MR Lumbar spine WO contrastO rdered By: Ccf Provider on 12-30-[address] [facility] MRI LUMBAR SPINE WO IVCONon 12-30-2024 [...] mild spinal canal narrowing. Anatomic Lumbar Variant: Recyclable Materials Collector: APRYL Transcribe Date/Time: Dec 30 2024 9:36A Dictated by : GIFTY VAZQUEZ MD This examination was interpreted and the report reviewed and electronically signed by: GIFTY VAZQUEZ MD on Dec 30 2024 9:42AM EST [id number] [facility] Telephone (INTWS) -- SUSAN CALDERON ([id number]) 1955 F TXT Date Time Provider Department 12/27/24 CEE CHRISTIANSON INTWS During your visit today, we recorded the following information about you: Lucille Ji LPN 12/27/2024 2:53 PM Signed Patient calling asking to have Lumbar xrays that were done 09/11/2024 put on a disc please. Patient has appt on 01/[address] Lorenzo. Advised patient to tack picker disc on Wednesday at specialty center Radiology desk. If any problem please call patient. 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 - ZOWMIPBD-LZDAEOMXXXMWUY-GG T C ORAL Take by mouth once [...] by mouth two times a day. - ngbpauna-orltql-yydkoieh acid (COLLAGEN 1500 PLUS C) 500 mg-800 [...] Encounter Status:Closed by LUCILLE JI on 01/01/25 [facility] 12-25-2024 CNPN Telephone (INTMWS) -- SUSAN CALDERON ([id number]) 1955 F TXT Date Time Provider Department 12/25/24 CEE CHRISTIANSON INTWS During your visit today, we recorded the following information about you: Amy Alex 12/25/2024 3:09 PM Signed Patient presented at front maker [facility]stit[facility] asking for orders for MRI of the [...] if or when it would be approved. ZAI Daniel Liza D, MD 12/27/2024 2:57 PM Signed Filed lumbar MRI for acute and chronic back pain with history of back surgery. Filed stat to see if can get soon. Shantel Jaramillo LPN 12/27/2024 3:41 PM Signed Pcp [...] without sciatica [M54.50] [facility](s[id number] Order #: [id number] FUTURE Prescriptions as of 12/29/2024 - donepezil [...] 99 mg by mouth once daily. - FJKWGSHE-CZDBCGSKDCJXYF-ZR T C ORAL Take by mouth once [...] two times (more content not included)... Normal [facility] 36on 12-22-2024 36 Called and left a me ssage on patients daughter phone because the number in our records for the patient has been disconnected. Called to ask patient to obtain a disc from [facility] of her images. Will sent a request to [facility] CNTHERAPYon 11-30-2024 CNTHERAPY OT/PT/Speech Visit ( PTWS) -- SUSAN CALDERON ([id number]) 1955 F TXT Date Time Provider Department 11/30/24 3:00 PM DANNY TUCKER PTWS Date Time Provider Department Center 11/30/2024 3:00 PM [id number], COLIN PTWS Daina Palmer Reason for Visit: [...] 99 mg by mouth once daily. - OIFJKYZQ-ZKLDMHSWMYUKQR-YL T C ORAL Take by mouth once [...] by mouth two times a day. - qcbsjbcf-iupulf-xymknctw acid (COLLAGEN 1500 PLUS C) 500 mg-800 [...] hours as needed for wheezing/shortness of breath. Ditch Tender: Therapy (PT/OT/Speech/Resp) ID: [id number] 11/30/2024 3:30 PM Author: DANNY TUCKER Signed by DANNY TUCKER PT on 11/30/2024 at 3:30 PM Document text: Program_ID:[id number] Access Code: [email or web address] URL: [email or web address] Date: 11-30-2024 Prepared By: Danny Tucker Program [...] - 2 sets - 10 reps Normal [facility] THERAPY NTon 11-30-2024 THERAPY NT HNO ID: [id number] Author: DANNY TUCKER, PT Service: ? Author Type: Physical Therapist Type: Therapy (PT/OT/Speech/Resp) Filed: 11/30/2024 15:30 Note Text: Program_ID:[id number] Access Code: [email or web address] URL: [email or web address] Date: 11-30-2024 Prepared By: Danny Tucker Program [...] - 2 sets - 10 reps Normal [facility] CNOVon 11-29-2024 CNOV Office Visit (KEATON ) -- SUSAN CALDERON ([id number]) 1955 F TXT Date Time Provider Department [...] then, please send me a message through [employer] or call the office. - Continue monitoring [...] 2023 Practi (more content not included)... Normal [facility] MR Brain WO contraston 11-07 * * *Final Report* * * DATE OF EXAM: Nov 07 2024 1:34PM [facility] - MRI BRAIN W QUANT WO [...] to 1.7; Gelacio 2008; also David 2010). [facility] Provider, Debbie Gauthier - 11/07/2024 * * *Final Report* * * DATE OF EXAM: Nov 07 2024 1:34PM [facility] - MRI BRAIN W QUANT WO [...] dementia protocol and 3-D post-processing using the CrowdFlower software at an independent workstation with concurrent [...] = Focal Lesions 2 = Beginning of [place] 3 = Diffuse Involvement of Entire Region [...] the analysis c (more content not included)... [facility] MR Unspecified body region 3 D post processingon 11-07-2024 * * *Final Report* * * DATE OF EXAM: Nov 07 2024 1:34PM [facility] - MRI 3D BRAIN QUANT / PROCEDURE REASON: Cognitive impairment, mild, so stated * * * * Physician Interpretation * * * * EXAMINATION: MRI BRAIN W QUANT WO IVCON, MRI 3D BRAIN QUANT CLINICAL HISTORY: Cognitive impairment TECHNIQUE: Axial NUVIA FLAIR, NUVIA T2, diffusion and susceptibility weighted imaging without contrast, using the ADNI dementia protocol and 3-D post-processing using the CrowdFlower software at an independent workstation with concurrent [...] to 1.7; Gelacio 2008; also David 2010). [facility] Provider, [facility] - 11/07/2024 * * *Final Report* * * DATE OF EXAM: Nov 07 2024 1:34PM [facility] - MRI 3D BRAIN QUANT / PROCEDURE REASON: Cognitive impairment, mild, so stated * * * * Physician Interpretation * * * * EXAMINATION: MRI BRAIN W QUANT WO IVCON, MRI 3D BRAIN QUANT CLINICAL HISTORY: Cognitive impairment TECHNIQUE: Axial NUVIA FLAIR, NUVIA T2, diffusion and susceptibility weighted imaging without contrast, using the ADNI dementia protocol and 3-D post-processing using the LimonetikQuant software at an independent workstation with concurrent [...] = Focal Lesions 2 = Beginning of [place] 3 = Diffuse Involvement of Entire Region [...] analysis charts fo (more content not included)... [facility] MRI 3D BRAIN QUANTon 025 MRI 3D BRAIN QUANT * * *Final Report* * * DATE OF EXAM: Nov 07 2024 1:34PM [facility] - MRI 3D BRAIN QUANT / PROCEDURE REASON: Cognitive impairment, mild, so stated * * * * Physician Interpretation * * * * EXAMINATION: MRI BRAIN W QUANT WO IVCON, MRI 3D BRAIN QUANT CLINICAL HISTORY: Cognitive impairment TECHNIQUE: Axial NUVIA FLAIR, NUVIA T2, diffusion and susceptibility weighted imaging without contrast, using the ADNI dementia protocol and 3-D post-processing using the CrowdFlower software at an independent workstation with concurrent [...] = Focal Lesions 2 = Beginning of [place] 3 = Diffuse Involvement of Entire Region [...] results from the analysis charts for details. Recyclable Materials Collector: APRYL Transcribe Date/Time: Nov 07 2024 1:37P Dictated by : LUIS MARTINEZ MD This examination was interpreted and the report reviewed and (more content not included)... Normal [facility] MRI BRAIN W QUANT WO IVCONon 11-07-2024 MRI BRAIN W QUANT WO IVCON * * *Final Report* * * DATE OF EXAM: Nov 07 2024 1:34PM [facility] - MRI BRAIN W QUANT WO [...] dementia protocol and 3-D post-processing using the CrowdFlower software at an independent workstation with concurrent [...] = Focal Lesions 2 = Beginning of [place] 3 = Diffuse Involvement of Entire Region [...] results from the analysis charts for details. Recyclable Materials Collector: [facility] Transcribe Date/Time: Nov 07 2024 1:37P Dictated by : LUIS MARTINEZ MD This examination was interpreted and the report reviewe (more content not included)... [facility] No Panel Informationon 11-07 IMPRESSION: * No [...] = Focal Lesions 2 = Beginning of [place] 3 = Diffuse Involvement of Entire Region [...] results from the analysis charts for details. Recyclable Materials Collector: [facility] Transcribe Date/Time: Nov 07 2024 1:37P Dictated by : LUIS MARTINEZ MD This examination was interpreted and the report reviewed and electronically signed by: LUIS MARTINEZ MD on Nov 07 2024 2:06PM [facility] Radiology Study observation (narrative) [facility] No Panel InformationOrdered By: Ccf Provider on 11-07-[address] [facility] [id number] 11-01-2024 [id number] HNO ID: [id number] Author: DANNY TUCKER PT Service: ? Author Type: Physical Therapist Type: [id number] Filed: 11/01/2024 13:07 Note Text: [facility] Rehabilitation and Sports Therapy Physical Therapy Plan of Care Certification Patient Name: Susan Calderon : 1955 [facility] #: [id number] Date: 11/01/2024 To: Ruma Westfall MD From [...] increase T-score by a minimum 5 points. [place] in home exercise program. Patient will decrease [...] Planned: 4 Planned Treatment Interventions: Therapeutic exercise (46858), Neuromuscular re-education (17190), Manual therapy (69577), Therapeutic activities (72333), Self-chcf management (40988), Gait Training (18130), Body Mechanics Training, Patient/Family/Caregiver Education PLAN FOR [...] the treatment plan for Susan Lance Calderon, [facility]# [id number] for the period of 11/01/24 -- 12/08/24, established on 11/01/2024. Signature certifies the need for therapy services. Normal [facility] CNTHERAPYon 11-01-2024 CNTHERAPY OT/PT/Speech Visit ( PTWS) -- SUSAN CALDERON ([id number]) 1955 F TXT Date Time Provider Department 11/01/24 8:30 AM DANNY TUCKER PTWS Date Time Provider Department Center 11/01/2024 8:30 AM [id number], COLIN PTWS Daina Palmer Reason for Visit: [...] 99 mg by mouth once daily. - JGLSCRQJ-XQFAMBRUVGYNLV-LF T C ORAL Take by mouth once [...] by mouth two times a day. - djlpwzwr-dalswk-ktilgflw acid (COLLAGEN 1500 PLUS C) 500 mg-800 [...] hours as needed for wheezing/shortness of breath. Ditch Tender: Addendum Therapy (PT/OT/Speech/Resp) ID: [id number] 11/01/2024 9:09 AM Author: DANNY TUCKER Signed by DANNY TUCKER PT on 11/01/2024 at 9:09 AM * * * This document replaces document [id number] * * * Document text: Program_ID:[id number] Access Code: [email or web address] URL: [email or web address] Date: 11-01-2024 Prepared By: Danny Tucker Program [...] - 2 sets - 8-12 reps Normal [facility] THERAPY NTon 11-01-2024 THERAPY NT HNO ID: [id number] Author: DANNY TUCKER PT Service: ? Author Type: Physical Therapist Type: Therapy (PT/OT/Speech/Resp) Filed: 11/01/2024 09:09 Note Text: Program_ID:[id number] Access Code: [email or web address] URL: [email or web address] Date: 11-01-2024 Prepared By: Danny Tucker Program [...] - 2 sets - 8-12 reps Normal [facility] SCREENINGon 10-09-2024 [facility] SCREENING * * *Final Report* * * DATE OF EXAM: Oct 09 2024 11:33AM [facility] 0581 - [facility] SCREENING / PROCEDURE REASON: Encounter for screening mammogram for breast cancer * * * * Physician Interpretation * * * * RESULT: [place] [address] #[id number] - [facility] SCREENING HISTORY: 69 year-old patient seen for [...] Nellie Pickett M.D. Electronically signed on: 10/09/2024 Recyclable Materials Collector: JESSIE Transcridilshad Date/Time: Oct 09 2024 11:12A Dictated by: NELLIE PICKETT MD This examination was interpreted and the report reviewed and electronically signed by: NELLIE PICKETT MD on Oct 09 2024 2:10PM EST [id number] Normal [facility] Breast Screeningon 2024 IMPRESSION: There is no [...] Nellie Pickett M.D. Electronically signed on: 10/09/2024 Recyclable Materials Collector: JESSIE Transcridilshad Date/Time: Oct 09 2024 11:12A Dictated by: NELLIE PICKETT MD This examination was interpreted and the report reviewed and electronically signed by: NELLIE PICKETT MD on Oct 09 2024 2:10PM EST DIVISION OF RADIOLOGY * * *Final Report* * * DATE OF EXAM: Oct 09 2024 11:33AM [facility] 0581 - [facility] SCREENING / PROCEDURE REASON: Encounter for screening mammogram for breast cancer * * * * Physician Interpretation * * * * RESULT: [facility] [address] [id number] #[id number] - [place] SCREENING HISTORY: 69 year-old patient [...] significant interval changes. DIVISION OF RADIOLOGY Provider, [facility] - 10/09/2024 * * *Final Report* * * DATE OF EXAM: Oct 09 2024 11:33AM [facility] 0581 - [facility] SCREENING / PROCEDURE REASON: Encounter for screening mammogram for breast cancer * * * * Physician Interpretation * * * * RESULT: [facility] [address] [id number] #[id number] - [place] SCREENING HISTORY: 69 year-old patient [...] Nellie Pickett M.D. Electronically signed on: 10/09/2024 Recyclable Materials Collector: JESSIE Transcribe Date/Time: Oct 09 2024 11:12A Dictated by: NELLIE PICKETT MD This examination was interpreted and the report reviewed and electronically signed by: NELLIE PICKETT MD on Oct 09 2024 2:10PM EST [facility] Radiology Study observation (narrative) [facility] MG Breast ScreeningOrdered B y: Ccf Provider on 10-09-[address] [facility] CNOVon 10-05-2024 CNOV Office Visit (ANITHAIWR ) -- SUSAN CALDERON ([id number]) 1955 F TXT Date Time Provider Department 10/05/24 9:30 AM RUMA WESTFALL During your visit today, we recorded the following information about you: Pulse Blood pressure Weight Height 65/minute 138/76 98.3 kg 1.62 m Ruma Westfall MD 10/05/2024 5:54 PM Signed [facility] Initial Consult Susan Calderon [...] secure location? No Social History: Primary language: [place] Marital Status: Living situation: Home w/ Family, family lives with her for over a year now. Socially engaged? (participates in activities such as clubs, scientologist, community center, sports, games, visiting friends/relatives, etc?): He he she has always been a stay at home person.except for daughter and son being with her or visiting. She does not socialize. Most of her friends . Caregiver [place] and Stress Are your feeling overwhelmed? NO [...] lumbar surg (more content not included)... Normal [facility] Radu 10-05-2024 KATIUSKAN Telephone (INTMWS) -- SUSAN CALDERON ([id number]) 1955 F TXT Date Time Provider Department 10/05/24 RUMA WESTFALL During your visit today, we recorded the following information about you: Shimon Choudhury RN 10/05/2024 9:02 AM Signed Patient phoned to report she is scheduled with Dr. Westfall at 9:30 today. Her daughter is driving from [facility] and the roads are bad- running late. [...] 99 mg by mouth once daily. - XJXTLTFW-ZAQFPARTOIOTXE-QY T C ORAL Take by mouth once [...] by mouth two times a day. - pzczblvb-hwhhin-jwxzrnvl acid (COLLAGEN 1500 PLUS C) 500 mg-800 [...] Status:Closed by Shimon CHOUDHURY on 10/13/24 Normal [facility] No Panel Informationon 10-05 Interpretation and review of laboratory results Normal [facility] T4 FREE/FREE THYROXINEon Free T4 [Mass/Vol] 1.1 ng/dL 0.9 - 1.7 ng/dL [facility] T4 Free SerPl-mCncon 025 Free T4 [Mass/Vol] 1.1 ng/dL Normal 0.9-1.7 [facility] Comment on above: Order Comment: Speci men Type: BLOOD SPECIMENOrdering Facility: [facility] Address: [address] [place] [address] [place] [address] Performed By: #### 3 016-3, 2132-9, 3024-7 ####[facility] LABCLIA [id number] [facility] [place] [address] [place] THYROID STIMULATING HORMONEo n 10-05-2024 TSH Qn 1.43 m[IU]/L [facility] TSH SerPl-aCncon 10-05-2024 TSH Qn 1.430 m[IU]/L Normal 0.270-4.200 [facility] Comment on above: Order Comment: Speci men Type: BLOOD SPECIMENOrdering Facility: [facility] Address: [address] [place] [address] Performed By: #### 3 016-3, 9, 4-7 ####[facility] LABCLIA [id number] [place] [address] [place] VITAMIN B12on 10-05-2024 Cobalamin (Vitamin B12) [Mass/Vol] 580 pg/mL 232 - 1245 pg/mL [facility] Vit B12 SerPl-mCncon 025 Cobalamin (Vitamin B12) [Mass/Vol] 580 pg/mL Normal 232-1245 [facility] Comment on above: Order Comment: Speci men Type: BLOOD SPECIMENOrdering Facility: [facility] Address: [address] [place] [address] Performed By: #### 3 016-3, 9, 47 ####[facility] LABCLIA [id number] [address] [place] CNOVon 09-25-2024 CNOV Office Visit (INTMWS ) -- SUSAN CALDERON ([id number]) 1955 F TXT Date Time Provider Department 09/25/24 1:00 PM CEE CHRISTIANSON INTMWS During your visit today, we recorded the following information about you: Pulse Respiration Blood pressure Weight 67/minute 16/minute 136/81 99 kg Height 1.6 m Cee Christianson MD 11/01/2024 6:20 PM Signed This note was created using Empower Microsystemsriter. 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 She does not have a living will [...] Take by mouth two times a day. fuotjqvk-cegcuw-zizxcogq acid (COLLAGEN 1500 PLUS C) 500 mg-800 [...] CO (more content not included)... Normal [facility] KIDNEY/BLADDERon 09-22-19 25 [place] KIDNEY/BLADDER * [...] visualization. No hydronephrosis. LEFT kidney appears atrophic. Recyclable Materials Collector: APRYL Transcribe Date/Time: Sep 24 2024 8:25A Dictated by : COLLEEN HE DO This examination was interpreted and the report reviewed and electronically signed by: COLLEEN HE DO on Sep 24 2024 8:28AM EST [id number] Normal [facility] CNOVon 09-21-2024 CNOV Office Visit (INTMWS ) -- SUSAN CALDERON ([id number]) 1955 F TXT Date Time Provider Department 09/21/24 4:20 PM PRADEEP BLANTON INTMWS During your visit today, we recorded the following information about you: Temperature Pulse Respiration Blood pressure 99.2 degrees 80/minute 16/minute 136/82 Weight 100.5 kg Pradeep Blanton MD 09/22/2024 12:28 AM Signed This note was created using Brilig. Subjective Patient presents with: Express [facility] follow-up [...] Take by mouth two times a day. ujhhbiop-zwqwdi-bcufbksy acid (COLLAGEN 1500 PLUS C) 500 mg-800 [...] taking: Repo (more content not included)... Normal [facility] UA DIP, URINE (POC)on 2024 BILIRUBIN UA (POCT) Negative Negative [facility] CLARITY UA (POCT) Clear [facility] COLOR UA (POCT) Yellow [facility] GLUCOSE UA (POCT) Negative Negative mg/dL [facility] Hemoglobin Ql (U) Trace-intact Abnormal Negative [facility] Interpretation and review of laboratory results Abnormal [facility] KETONE UA (POCT) Negative Negative mg/dL [facility] LEUKOCYTES UA (POCT) Negative Negative [facility] NITRITE UA (POCT) Negative Negative [facility] PH UA (POCT) 8.0 4.5 - 8.[address] [facility] Protein Ql (U) Negative Negative mg/dL [facility] SPECIFIC GRAVITY UA (POCT) 1.020 1.005 - 1.[address] [facility] UROBILINOGEN UA (POCT) 0.2 Scarlet l E.U./dL [facility] Location:[address], [id number] [place] [address] POINT OF CARE [facility] SUSAN CALEDRON ([id number]) 1955 F TXT Date Time Provider Department 09/13/24 JEAN KIM [facility] During your visit today, [...] by mouth two times a day. - qaplcbjv-dqqate-nlhggclw acid (COLLAGEN 1500 PLUS C) 500 mg-800 [...] Refills S (more content not included)... Normal [facility] Bacteria Culton 5 Bacteria identified Cx [...] , Intermediate >32 , Resistant >64 Abnormal [facility] Comment on above: Performed By: #### 6 30-4 ####[facility] LABIA [id number] [address] OF [facility] CNOVon 09-11-2024 CNOV Office Visit (UCWSTR ) -- SUSAN CALDERON ([id number]) 1955 F TXT Date Time Provider Department 09/11/24 9:30 AM JEAN KIM UCWSTR During your visit today, we recorded the following information about you: Temperature Pulse Respiration Blood pressure 98.2 degrees 75/minute 21/minute 128/80 Weight 98.9 kg Jean Kim PA 09/11/2024 10:44 AM Signed This note was created using Brilig. Subjective Susan Calderon is a 69 year [...] Take by mouth two times a day. ihtesvqh-rtkeul-orwldfei acid (COLLAGEN 1500 PLUS C) 500 mg-800 [...] quittin.1 Smokeless (more content not included)... Normal [facility] UA DIP, URINE (POC)on 2024 BILIRUBIN UA (POCT) Negative Negative [facility] CLARITY UA (POCT) Clear [facility] COLOR UA (POCT) Yellow [facility] GLUCOSE UA (POCT) Negative Negative mg/dL [facility] Hemoglobin Ql (U) Negative Negative [facility] Interpretation and review of laboratory results Abnormal [facility] KETONE UA (POCT) Negative Negative mg/dL [facility] LEUKOCYTES UA (POCT) Trace Abnormal Negative [facility] NITRITE UA (POCT) Negative Negative [facility] PH UA (POCT) 6.5 4.5 - 8.[address] [facility] Protein Ql (U) Negative Negative mg/dL [facility] SPECIFIC GRAVITY UA (POCT) 1.015 1.005 - 1.[address] [facility] UROBILINOGEN UA (POCT) 0.2 Scarlet l E.U./dL [facility] Location:[address], [id number] [place] [address] POINT OF CARE [facility] XR LUMBAR 3V AP/LAT/L5-S1on 09-11-2024 XR [...] 3. Degenerative disease of the lumbar spine Recyclable Materials Collector: [facility] Transcribe Date/Time: Sep 11 2024 10:24A Dictated by : MARK MIXON MD This examination was interpreted and the report reviewed and electronically signed by: MARK MIXON MD on Sep 11 2024 10:28AM EST [id number] Normal [facility] XR Lumbar spine 3 Viewson IMPRESSION: 1. No acute fracture 2. Unchanged retrolisthesis of L3 on L4 3. Degenerative disease of the lumbar spine Recyclable Materials Collector: [facility] Transcribe Date/Time: Sep 11 2024 10:24A Dictated [...] 3. Degenerative disease of the lumbar spine Recyclable Materials Collector: [employer] Transcribe Date/Time: Sep 11 2024 10:24A Dictated by : MARK MIXON MD This examination was interpreted and the report reviewed and electronically signed by: MARK MIXON MD on Sep 11 2024 10:28AM EST [facility] Radiology Study observation (narrative) [facility] XR Lumbar spine 3 ViewsOrder ed By: Ccf Provider on 09-11-[address] [facility] 25(OH)D3 SerPl-mCncon 2024 25-hydroxyvitamin D3 [Mass/Vol] 61.9 ng/mL Normal 31.0-80.0 [facility] Comment on above: Order Comment: Speci men Type: BLOOD SPECIMENOrdering Facility: [facility] Address: [address] [place] [address] Result Comment: Clas sification of 25 [place] Vitamin D status: Deficiency/Insufficiency: < or = 30 ng/ml. Sufficiency/Optimal Levels: 31-80 ng/mL Toxicity: > 100 ng/mL. Test performed by chemiluminescent immunoassay. Performed By: #### 1 989-3 ####[facility] LABIA [id number] [place] [address] [place] CBC panel Auto (Bld)on 09-08 Erythrocyte distribution width (RBC) [Ratio] 13.2 % Normal 11.5-15.0 [facility] Comment on above: Order Comment: Speci men Type: BLOOD SPECIMENOrdering Facility: [facility] Address: [address] [place] [address] Performed By: #### 5 8410-2 ####[facility] LABIA [id number] [address] [place] Hematocrit (Bld) [Volume fraction] 42.6 % Normal 36.0-46.0 [facility] Comment on above: Order Comment: Speci men Type: BLOOD SPECIMENOrdering Facility: [facility] Address: [address] [place] [address] Performed By: #### 5 8410-2 ####[facility] LABIA [id number] [place] [address] [place] Hemoglobin (Bld) [Mass/Vol] 13.3 g/dL Normal 11.5-15.5 [facility] Comment on above: Order Comment: Speci men Type: BLOOD SPECIMENOrdering Facility: [facility] Address: [address] [place] [address] Performed By: #### 5 8410-2 ####[facility] LABIA [id number] [place] [address] [place] MCH (RBC) [Entitic mass] 29.6 pg Normal 26.0-34.0 [facility] Comment on above: Order Comment: Speci men Type: BLOOD SPECIMENOrdering Facility: [facility] Address: [address] [place] [address] Performed By: #### 5 8410-2 ####[facility] LABIA [id number] [place] [address] [place] MCHC (RBC) [Mass/Vol] 31.2 g/dL Normal 30.5-36.0 [facility] Comment on above: Order Comment: Speci men Type: BLOOD SPECIMENOrdering Facility: [facility] Address: [address] [place] [address] Performed By: #### 5 8410-2 ####[facility] [id number] [place] [address] [place] MCV (RBC) [Entitic vol] 94.7 fL Normal 80.0-100.0 [facility] Comment on above: Order Comment: Speci men Type: BLOOD SPECIMENOrdering Facility: [facility] Address: [address] [place] [address] Performed By: #### 5 8410-2 ####[facility] [id number] [place] [address] [place] Nucleated RBC (Bld) [#/Vol] 10*3/uL Normal <0.01 [facility] Comment on above: Order Comment: Speci men Type: BLOOD SPECIMENOrdering Facility: [facility] Address: [address] [place] [address] Performed By: #### 5 8410-2 ####[facility] [id number] [place] [address] [place] Platelet mean volume (Bld) [Entitic vol] 10.9 fL Normal 9.0-12.7 [facility] Comment on above: Order Comment: Speci men Type: BLOOD SPECIMENOrdering Facility: [facility] Address: [address] [place] [address] Performed By: #### 5 8410-2 ####[facility] LABCLIA [id number] [address] [address] [place] Platelets (Bld) [#/Vol] 317 10*3/uL Normal 150-400 [facility] Comment on above: Order Comment: Speci men Type: BLOOD SPECIMENOrdering Facility: [facility] Address: [address] [place] [address] Performed By: #### 5 8410-2 ####[facility] LABCLIA [id number] [place] [address] [place] RBC (Bld) [#/Vol] 4.50 10*6/uL Normal 3.90-5.20 [facility] Comment on above: Order Comment: Speci men Type: BLOOD SPECIMENOrdering Facility: [facility] Address: [address] [place] [address] Performed By: #### 5 8410-2 ####[facility] LABIA [id number] [place] [address] [place] WBC (Bld) [#/Vol] 8.37 10*3/uL Normal 3.70-11.00 [facility] Comment on above: Order Comment: Speci men Type: BLOOD SPECIMENOrdering Facility: [facility] Address: [address] [place] [address] Performed By: #### 5 8410-2 ####[facility] LABCLIA [id number] [address] [id number] [place] Comprehensive metabolic 2000 panelon 09-08-2024 Albumin [Mass/Vol] 4.1 g/dL Normal 3.9-4.9 [facility] Comment on above: Order Comment: Speci men Type: BLOOD SPECIMENOrdering Facility: [facility] Address: [address] [place] [address] Performed By: #### 2 4331-1, 2276-4, 65262-7, 81306-8 ####[facility] LABCLIA [id number] [address] [address] [place] ALP [Catalytic activity/Vol] 114 U/L Normal 34-123 [facility] Comment on above: Order Comment: Speci men Type: BLOOD SPECIMENOrdering Facility: [facility] Address: [address] [place] [address] Performed By: #### 2 4331-1, 2275-4, 03346-5, 32675-8 ####[facility] LABCLIA [id number] [address] [address] [place] ALT [Catalytic activity/Vol] 18 U/L Normal 7-38 [facility] Comment on above: Order Comment: Speci men Type: BLOOD SPECIMENOrdering Facility: [facility] Address: [address] [place] [address] Performed By: #### 2 4331-1, 2275-4, 49586-6, ####[facility] LABCLIA [id number] [place] [address] [place] Anion gap [Moles/Vol] 11 mmol/L Normal 8-15 [facility] Comment on above: Order Comment: Speci men Type: BLOOD SPECIMENOrdering Facility: [facility] Address: [address] [place] [address] Performed By: #### 2 4331-1, 2275-4, 36480-1, ####[facility] LABCLIA [id number] [address] [address] [place] AST [Catalytic activity/Vol] 27 U/L Normal 13-35 [facility] Comment on above: Order Comment: Speci men Type: BLOOD SPECIMENOrdering Facility: [facility] Address: [address] [place] [address] Performed By: #### 2 4331-1, 6-4, 44588-9, 89631-2 ####[facility] LABCLIA [id number] [address] [address] [place] Bilirubin [Mass/Vol] 0.3 mg/dL Normal 0.2-1.3 [facility] Comment on above: Order Comment: Speci men Type: BLOOD SPECIMENOrdering Facility: [facility] Address: [address] [place] [address] Performed By: #### 2 4331-1, 6-4, 68705-5, 09564-6 ####[facility] LABCLIA [id number] [address] [address] [place] Calcium [Mass/Vol] 9.2 mg/dL Normal 8.5-10.2 [facility] Comment on above: Order Comment: Speci men Type: BLOOD SPECIMENOrdering Facility: [facility] Address: [address] [place] [address] Performed By: #### 2 4331-1, 6-4, 17755-2, 79309-3 ####[facility] LABCLIA [id number] [place] [address] [place] Chloride [Moles/Vol] 98 mmol/L Normal 98-107 [facility] Comment on above: Order Comment: Speci men Type: BLOOD SPECIMENOrdering Facility: [facility] Address: [address] [place] [address] Performed By: #### 2 4331-1, 6-4, 65798-0, 27340-8 ####[facility] LABCLIA [id number] [place] [id number] [place] CO2 [Moles/Vol] 24 mmol/L Normal 22-30 [facility] Comment on above: Order Comment: Speci men Type: BLOOD SPECIMENOrdering Facility: [facility] Address: [address] [place] [address] Performed By: #### 2 4331-1, 2276-4, 31905-9, 12112-0 ####[facility] [id number] [place] [id number] [place] Creatinine [Mass/Vol] 0.73 mg/dL Normal 0.58-0.96 [facility] Comment on above: Order Comment: Migel sanderson Type: BLOOD SPECIMENOrdering Facility: [facility] Address: [address] [place] [address] Performed By: #### 2 4331-1, 6-4, 37726-9, 21219-9 ####[facility] [id number] [place] [id number] [place] Creatinine and Glomerular filtration rate.predicted panel (S/P/Bld) 89 mL/min/1.73m??? Normal >=60 [facility] Comment on above: Order Comment: Migel sanderson Type: BLOOD SPECIMENOrdering Facility: [facility] Address: [address] [place] [address] Result Comment: Ivonne mated Glomerular Filtration Rate [...] GFR. Performed By: #### 2 4331-1, 6-4, 77865-3, 44959-8 ####[facility] [id number] [place] [id number] [place] Glucose [Mass/Vol] 100 mg/dL High 74-99 [facility] Comment on above: Order Comment: Migel sanderson Type: BLOOD SPECIMENOrdering Facility: [facility] Address: [address] [place] [address] Result Comment: The [place] Diabetes Association (ADA) provides guidance for cutoff [...] Standards of Medical Care in Diabetes 2016, [place] [employer]. Diabetes Care. 2016.39(Suppl 1). Performed By: #### 2 4331-1, 6-4, 98584-1, 88319-3 ####[facility] [id number] [address] [address] [place] Potassium [Moles/Vol] 4.8 mmol/L Normal 3.7-5.1 [facility] Comment on above: Order Comment: Speci men Type: BLOOD SPECIMENOrdering Facility: [facility] Address: [address] [place] [address] Performed By: #### 2 4331-1, 6-4, 77807-3, 88893-8 ####[facility] [id number] [place] [id number] [place] Protein [Mass/Vol] 7.7 g/dL Normal 6.3-8.0 [facility] Comment on above: Order Comment: Speci men Type: BLOOD SPECIMENOrdering Facility: [facility] Address: [address] [place] [address] Performed By: #### 2 4331-1, 6-4, 29869-2, 49995-6 ####[facility] [id number] [address] [address] [place] Sodium [Moles/Vol] 133 mmol/L Low 136-144 [facility] Comment on above: Order Comment: Speci men Type: BLOOD SPECIMENOrdering Facility: [facility] Address: [address] [place] [address] Performed By: #### 2 4331-1, 6-4, 07158-3, 89985-8 ####[facility] [id number] [address] [address] [place] Urea nitrogen [Mass/Vol] 24 mg/dL High 7-21 [facility] Comment on above: Order Comment: Speci men Type: BLOOD SPECIMENOrdering Facility: [facility] Address: [address] [place] [address] Performed By: #### 2 4331-1, 6-4, 27823-4, 66170-3 ####[facility] [id number] [address] [address] [place] Ferritin SerPl-mCncon 2024 Ferritin [Mass/Vol] 432.0 ng/mL High 14.7-205.1 [facility] Comment on above: Order Comment: Speci men Type: BLOOD SPECIMENOrdering Facility: [facility] Address: [address] [place] [address] Performed By: #### 2 4331-1, 6-4, 07178-0, ####[facility] [id number] [place] [address] [place] Lipid 1996 panelon Cholesterol [Mass/Vol] 141 mg/dL Normal <200 [facility] Comment on above: Order Comment: Speci men Type: BLOOD SPECIMENOrdering Facility: [facility] Address: [address] [place] [address] Result Comment: <200 mg/dL, Desirable 200-239 mg/dL, Borderline high >239 mg/dL, High Performed By: #### 2 4331-1, 6-4, 75058-2, 82557-5 ####[facility] [id number] [place] [address] [place] Cholesterol in HDL [Mass/Vol] 60 mg/dL Normal >39 [facility] Comment on above: Order Comment: Speci men Type: BLOOD SPECIMENOrdering Facility: [facility] Address: [address] [place] [address] Result Comment: 40-5 9 mg/dL, Acceptable >59 mg/dL, High: Negative risk factor for coronary heart disease <40 mg/dL, Low: Positive risk factor for coronary heart disease Performed By: #### 2 4331-1, 6-4, 67518-2, ####[facility] [id number] [address] [address] [place] Cholesterol in LDL [Mass/Vol] 70 mg/dL Normal <100 [facility] Comment on above: Order Comment: Speci men Type: BLOOD SPECIMENOrdering Facility: [facility] Address: [address] [place] [address] Result Comment: <100 mg/dL, Optimal 100-129 mg/dL, Near optimal/above optimal 130-159 mg/dL, Borderline high 160-189 mg/dL, High >189 mg/dL, Very high Secondary prevention optimal LDL Cholesterol levels are recommended to be < 70 mg/dL Performed By: #### 2 4331-1, 6-4, 30854-5, ####[facility] [id number] [place] [address] [place] Cholesterol in LDL/Cholesterol in HDL [Mass ratio] 1.17 {ratio} Normal <2.54 [facility] Comment on above: Order Comment: Speci men Type: BLOOD SPECIMENOrdering Facility: [facility] Address: [address] [place] [address] Result Comment: Refshaggy rochace: 1. National Cholesterol Education Program ATP III Guideline At-A-Glance Quick Desk Reference: National Heart, Lung, and Blood [place]. National Institutes of Health. 2001: NIH Publication No. 01-3305. 2. An International Atherosclerosis Society position paper: global recommendations for the management of dyslipidemia: executive summary, Atherosclerosis. 2014: 232(2):410-413. Performed By: #### 2 4331-1, 6-4, 28500-6, 12933-7 ####[facility] [id number] [address] [address] [place] Cholesterol in VLDL [Mass/Vol] 11 mg/dL Normal <30 [facility] Comment on above: Order Comment: Speci men Type: BLOOD SPECIMENOrdering Facility: [facility] Address: [address] [place] [address] Performed By: #### 2 4331-1, 6-4, 21779-5, 22186-2 ####[facility] [id number] [place] [address] [place] Cholesterol non HDL [Mass/Vol] 81 mg/dL Normal <130 [facility] Comment on above: Order Comment: Speci men Type: BLOOD SPECIMENOrdering Facility: [facility] Address: [address] [place] [address] Result Comment: <130 mg/dL, Optimal 130-159 mg/dL, Near optimal/above optimal 160-189 mg/dL, Borderline high 190-219 mg/dL, High >219 mg/dL, Very high Secondary prevention optimal non HDL Cholesterol levels are recommended to be <100 mg/dL Performed By: #### 2 4331-1, 6-4, 36683-2, ####[facility] [id number] [place] [address] [place] Cholesterol.total/Chol esterol in HDL [Mass ratio] 2.35 {ratio} Normal <5.10 [facility] Comment on above: Order Comment: Speci men Type: BLOOD SPECIMENOrdering Facility: [facility] Address: [address] [place] [address] Performed By: #### 2 4331-1, 6-4, 42274-6, ####[facility] [id number] [address] [address] [place] FASTING TIME 12 hrs Normal [facility] Comment on above: Order Comment: Speci men Type: BLOOD SPECIMENOrdering Facility: [facility] Address: [address] [place] [address] Performed By: #### 2 4331-1, 6-4, 12864-3, ####[facility] [id number] [place] [id number] [place] Triglyceride [Mass/Vol] 53 mg/dL Normal <150 [facility] Comment on above: Order Comment: Speci men Type: BLOOD SPECIMENOrdering Facility: [facility] Address: [address] [place] [address] Result Comment: <150 mg/dL, Normal 150-199 mg/dL, Borderline high 200-499 mg/dL, High >499 mg/dL, Very high Performed By: #### 2 4331-1, 2275-4, 03228-0, ####[facility] [id number] [place] [address] [place] Magnesium [facility] 09-08 Magnesium [Mass/Vol] 2.0 mg/dL Normal 1.7-2.3 [facility] Comment on above: Order Comment: Speci men Type: BLOOD SPECIMENOrdering Facility: [facility] Address: [address] [place] [address] Performed By: #### 2 4331-1, 2275-4, 00767-2, ####[facility] [id number] [place] [address] [place] Vit B12 SerPl-ncon 025 Cobalamin (Vitamin B12) [Mass/Vol] 769 pg/mL Normal 232-1245 [facility] Comment on above: Order Comment: Speci men Type: BLOOD SPECIMENOrdering Facility: [facility] Address: [address] [place] [address] Performed By: #### 2 132-9 ####[facility] [id number] [place] [id number] [place] [id number] 05-24-2024 [id number] HNO ID: [id number] Author: LUZ PEPE RN Service: ? Author Type: Registered Nurse Type: [id number] Filed: 05/24/2024 11:14 Note Text: The patient received a copy of Colonoscopy discharge instructions that contain information for how to contact the physician who performed the procedure and when to seek medical care. Normal [facility] Colonoscopyon 05-24-2024 Colonoscopy Addendum Number: 1 Addendum Date: 06/15/2024 12:30:14 PM Sedation start time: 9:50AM MATIAS ZAPATA, DO Matias Zapata, 06/15/2024 12:30:31 PM This report has been signed electronically by Matias Lama [facility] Gastrointestinal Endoscopy Patient Name: Susan Calderon Procedure [...] the patient. Procedure Code(s): --- Professional --- 61083, Colonoscopy, flexible; diagnostic, including collection of specimen(s) by brushing or washing, when performed (separate procedure) G0500, Moderate sedation services provided by the same physician or other qualified health morning caregiver performing a gastrointestinal endoscopic service that sedation supports, requiring the presence of an independent trained observer to assist in the monitoring of the patient's level of consciousness and physiological status; initial 15 minutes of intra (more content not included)... Normal [facility] Colonoscopy Study observatio non 05-24-2024 [place] [facility] Gastrointestinal Endoscopy Patient Name: Susan Calderon Procedure [...] Resume previous (more content not included)... PROVATION [facility] Radiology Study observation (narrative) [facility] SUSAN CALDERON ([id number]) 1955 F TXT Date Time Provider Department [...] Fully Assessed Reason for Visit: Patient Question [5247] Prescriptions as of 05/15/2024 - atenolol (TENORMIN) [...] by mouth two times a day. - ywesiiwh-iyemuq-rtlgfdiq acid (COLLAGEN 1500 PLUS C) 500 mg-800 [...] 11/16/2018 Obes (more content not included)... Normal [facility] CNPNon 04-21-2024 CNPN Telephone (INTMWS) -- SUSAN CALDERON ([id number]) 1955 F TXT Date Time Provider Department 04/21/24 CEE CHRISTIANSON INTMWS During your visit today, we recorded the following information about you: Danuta Hyman 04/24/2024 7:22 AM Addendum Please send Golytely script to [facility] [address] [place] [address] Mailed Golytely Prep Instructions Cee Christianson MD [...] by mouth two times a day. - pyaikznw-ftxqfu-xcjxvdef acid (COLLAGEN 1500 PLUS C) 500 mg-800 [...] [D53.9] 02/19/2023 (more content not included)... Normal [facility] 03-29-2024 CNPN Telephone (INTMWS) -- SUSAN CALDERON ([id number]) 1955 F TXT Date Time Provider Department [...] by mouth two times a day. - zhcvonbi-puezci-ytxwemys acid (COLLAGEN 1500 PLUS C) 500 mg-800 [...] mcg/actuation inhaler (more content not included)... Normal [facility] CNOVon 02-21-2024 CNOV Office Visit (INTMWS ) -- SUSAN CALDERON ([id number]) 1955 F TXT Date Time Provider Department 02/21/24 8:40 AM [facility] INTMWS During your visit today, we recorded the following information about you: Temperature Pulse Respiration Blood pressure 97.4 degrees 67/minute 16/minute 130/62 Weight Height 107.5 kg 1.689 m Cee Christianson MD 02/22/2024 12:05 AM Signed This note was created using [employer]. Subjective Susan Calderon is a 68 year [...] 36.0 - (more content not included)... Normal [facility] 25(OH)D3 [facility] 25-hydroxyvitamin D3 [Mass/Vol] 52.2 ng/mL Normal 31.0-80.0 [facility] Comment on above: Order Comment: Migel sanderson Type: BLOOD SPECIMENOrdering Facility: [facility] Address: [address] [place] [address] Result Comment: Clas sification of 25 [place] Vitamin D status: Deficiency/Insufficiency: < or = 30 ng/ml. Sufficiency/Optimal Levels: 31-80 ng/mL Toxicity: > 100 ng/mL. Test performed by chemiluminescent immunoassay. Performed By: #### 1 989-3 ####[facility] [id number] [facility] [id number] [place] [address] [place] CBC W Auto Differential pane l (Bld)on 02-18-2024 Basophils (Bld) [#/Vol] 0.06 10*3/uL Normal <0.11 [facility] Comment on above: Order Comment: Speci men Type: BLOOD SPECIMENOrdering Facility: [facility] Address: [address] [place] [address] Performed By: #### 5 7021-8 ####[facility] [id number] [place] [address] [place] Basophils/100 WBC (Bld) 1.2 % Normal [facility] Comment on above: Order Comment: Speci men Type: BLOOD SPECIMENOrdering Facility: [facility] Address: [address] [place] [address] Performed By: #### 5 7021-8 ####[facility] [id number] [place] [address] [place] Differential cell count method Nom (Bld) Auto Normal [facility] Comment on above: Order Comment: Speci men Type: BLOOD SPECIMENOrdering Facility: [facility] Address: [address] [place] [address] Performed By: #### 5 7021-8 ####[facility] [id number] [place] [address] [place] Eosinophils (Bld) [#/Vol] 0.16 10*3/uL Normal <0.46 [facility] Comment on above: Order Comment: Speci men Type: BLOOD SPECIMENOrdering Facility: [facility] Address: [address] [place] [address] Performed By: #### 5 7021-8 ####[facility] [id number] [place] [address] [place] Eosinophils/100 WBC (Bld) 3.1 % Normal [facility] Comment on above: Order Comment: Speci men Type: BLOOD SPECIMENOrdering Facility: [facility] Address: [address] [place] [address] Performed By: #### 5 7021-8 ####[facility] [id number] [place] [address] [place] Erythrocyte distribution width (RBC) [Ratio] 12.8 % Normal 11.5-15.0 [facility] Comment on above: Order Comment: Speci men Type: BLOOD SPECIMENOrdering Facility: [facility] Address: [address] [place] [address] Performed By: #### 5 7021-8 ####[facility] [id number] [place] [address] [place] Hematocrit (Bld) [Volume fraction] 40.8 % Normal 36.0-46.0 [facility] Comment on above: Order Comment: Speci men Type: BLOOD SPECIMENOrdering Facility: [facility] Address: [address] [place] [address] Performed By: #### 5 7021-8 ####[facility] [id number] [place] [address] [place] Hemoglobin (Bld) [Mass/Vol] 13.1 g/dL Normal 11.5-15.5 [facility] Comment on above: Order Comment: Speci men Type: BLOOD SPECIMENOrdering Facility: [facility] Address: [address] [place] [address] Performed By: #### 5 7021-8 ####[facility] [id number] [place] [address] [place] Immature granulocytes (Bld) [#/Vol] 10*3/uL Normal <0.10 [facility] Comment on above: Order Comment: Speci men Type: BLOOD SPECIMENOrdering Facility: [facility] Address: [address] [place] [address] Performed By: #### 5 7021-8 ####[facility] [id number] [place] [address] [place] Immature granulocytes/100 WBC (Bld) 0.2 % Normal [facility] Comment on above: Order Comment: Speci men Type: BLOOD SPECIMENOrdering Facility: [facility] Address: [address] [place] [address] Performed By: #### 5 7021-8 ####[facility] [id number] [place] [address] [place] Lymphocytes (Bld) [#/Vol] 1.50 10*3/uL Normal 1.00-4.00 [facility] Comment on above: Order Comment: Speci men Type: BLOOD SPECIMENOrdering Facility: [facility] Address: [address] [place] [address] Performed By: #### 5 7021-8 ####[facility] [id number] [place] [address] [place] Lymphocytes/100 WBC (Bld) 29.5 % Normal [facility] Comment on above: Order Comment: Speci men Type: BLOOD SPECIMENOrdering Facility: [facility] Address: [address] [place] [address] Performed By: #### 5 7021-8 ####[facility] [id number] [place] [address] [place] MCH (RBC) [Entitic mass] 30.6 pg Normal 26.0-34.0 [facility] Comment on above: Order Comment: Speci men Type: BLOOD SPECIMENOrdering Facility: [facility] Address: [address] [place] [address] Performed By: #### 5 7021-8 ####[facility] [id number] [place] [address] [place] MCHC (RBC) [Mass/Vol] 32.1 g/dL Normal 30.5-36.0 [facility] Comment on above: Order Comment: Speci men Type: BLOOD SPECIMENOrdering Facility: [facility] Address: [address] [place] [address] Performed By: #### 5 7021-8 ####[facility] [id number] [place] [address] [place] MCV (RBC) [Entitic vol] 95.3 fL Normal 80.0-100.0 [facility] Comment on above: Order Comment: Speci men Type: BLOOD SPECIMENOrdering Facility: [facility] Address: [address] [place] [address] Performed By: #### 5 7021-8 ####[facility] [id number] [place] [address] [place] Monocytes (Bld) [#/Vol] 0.46 10*3/uL Normal <0.87 [facility] Comment on above: Order Comment: Speci men Type: BLOOD SPECIMENOrdering Facility: [facility] Address: [address] [place] [address] Performed By: #### 5 7021-8 ####[facility] [id number] [place] [address] [place] Monocytes/100 WBC (Bld) 9.0 % Normal [facility] Comment on above: Order Comment: Speci men Type: BLOOD SPECIMENOrdering Facility: [facility] Address: [address] [place] [address] Performed By: #### 5 7021-8 ####[facility] [id number] [place] [address] [place] Neutrophils (Bld) [#/Vol] 2.90 10*3/uL Normal 1.45-7.50 [facility] Comment on above: Order Comment: Speci men Type: BLOOD SPECIMENOrdering Facility: [facility] Address: [address] [place] [address] Performed By: #### 5 7021-8 ####[facility] [id number] [place] [address] [place] Neutrophils/100 WBC (Bld) 57.0 % Normal [facility] Comment on above: Order Comment: Speci men Type: BLOOD SPECIMENOrdering Facility: [facility] Address: [address] [place] [address] Performed By: #### 5 7021-8 ####[facility] [id number] [place] [address] [place] Nucleated RBC (Bld) [#/Vol] 10*3/uL Normal <0.01 [facility] Comment on above: Order Comment: Speci men Type: BLOOD SPECIMENOrdering Facility: [facility] Address: [address] [place] [address] Performed By: #### 5 7021-8 ####[facility] [id number] [place] [address] [place] Nucleated RBC/100 WBC (Bld) [Ratio] 0.0 /100 WBC Normal [facility] Comment on above: Order Comment: Speci men Type: BLOOD SPECIMENOrdering Facility: [facility] Address: [address] [place] [address] Performed By: #### 5 7021-8 ####[facility] [id number] [place] [address] [place] Platelet mean volume (Bld) [Entitic vol] 11.0 fL Normal 9.0-12.7 [facility] Comment on above: Order Comment: Speci men Type: BLOOD SPECIMENOrdering Facility: [facility] Address: [address] [place] [address] Performed By: #### 5 7021-8 ####[facility] [id number] [place] [address] [place] Platelets (Bld) [#/Vol] 229 10*3/uL Normal 150-400 [facility] Comment on above: Order Comment: Speci men Type: BLOOD SPECIMENOrdering Facility: [facility] Address: [address] [place] [address] Result Comment: No c lot detected. Performed By: #### 5 7021-8 ####[facility] [id number] [id number] [address] [place] RBC (Bld) [#/Vol] 4.28 10*6/uL Normal 3.90-5.20 [facility] Comment on above: Order Comment: Speci men Type: BLOOD SPECIMENOrdering Facility: [facility] Address: [address] [place] [address] Performed By: #### 5 7021-8 ####[facility] [id number] [place] [address] [place] WBC (Bld) [#/Vol] 5.09 10*3/uL Normal 3.70-11.00 [facility] Comment on above: Order Comment: Speci men Type: BLOOD SPECIMENOrdering Facility: [facility] Address: [address] [place] [address] Performed By: #### 5 7021-8 ####[facility] [id number] [place] [address] [place] Comprehensive metabolic 2000 panelon 02-18-2024 Albumin [Mass/Vol] 4.1 g/dL Normal 3.9-4.9 [facility] Comment on above: Order Comment: Speci men Type: BLOOD SPECIMENOrdering Facility: [facility] [facility] Address: [address] [place] [address] Performed By: #### 2 4323-8, 2132-04 ####[facility] [id number] [place] [address] [place] ALP [Catalytic activity/Vol] 82 U/L Normal 34-123 [facility] Comment on above: Order Comment: Speci men Type: BLOOD SPECIMENOrdering Facility: [facility] Address: [address] [place] [address] Performed By: #### 2 4323-8, 2132-04 ####[facility] [id number] [place] [id number] [place] ALT [Catalytic activity/Vol] 21 U/L Normal 7-38 [facility] Comment on above: Order Comment: Speci men Type: BLOOD SPECIMENOrdering Facility: [facility] Address: [address] [id number] Performed By: #### 2 432-8, 2132-04 ####[facility] [id number] [address] [address] [place] Anion gap [Moles/Vol] 14 mmol/L Normal 8-15 [facility] Comment on above: Order Comment: Speci men Type: BLOOD SPECIMENOrdering Facility: [facility] Address: [address] [place], [place] [address] Performed By: #### 2 8, 2132-04 ####[facility] [id number] [place] [address] [place] AST [Catalytic activity/Vol] 36 U/L High 13-35 [facility] Comment on above: Order Comment: Speci men Type: BLOOD SPECIMENOrdering Facility: [facility] Address: [address] [place] [address] Performed By: #### 2 4323-03, 2132-04 ####[facility] [id number] [place] [address] [place] Bilirubin [Mass/Vol] 0.3 mg/dL Normal 0.2-1.3 [facility] Comment on above: Order Comment: Speci men Type: BLOOD SPECIMENOrdering Facility: [facility] Address: [address] [id number] Performed By: #### 2 4323-8, 2132-04 ####[facility] [id number] [place] [address] [place] Calcium [Mass/Vol] 9.0 mg/dL Normal 8.5-10.2 [facility] Comment on above: Order Comment: Speci men Type: BLOOD SPECIMENOrdering Facility: [facility] Address: [address] [place] [address] Performed By: #### 2 432-8, 2132-04 ####[facility] [id number] [address] [address] [place] Chloride [Moles/Vol] 97 mmol/L Low 98-107 [facility] Comment on above: Order Comment: Speci men Type: BLOOD SPECIMENOrdering Facility: [facility] Address: [address] [place], [place] [address] Performed By: #### 2 4323-8, 2132-04 ####[facility] [id number] [place] [address] [place] CO2 [Moles/Vol] 20 mmol/L Low 22-30 [facility] Comment on above: Order Comment: Speci men Type: BLOOD SPECIMENOrdering Facility: [facility] Address: [address] [place] [address] Performed By: #### 2 4328, 2132-04 ####[facility] [id number] [place] [address] [place] Creatinine [Mass/Vol] 0.84 mg/dL Normal 0.58-0.96 [facility] Comment on above: Order Comment: Speci men Type: BLOOD SPECIMENOrdering Facility: [facility] Address: [address] [place] [address] Performed By: #### 2 4323-8, 2132-04 ####[facility] [id number] [place] [id number] [place] Creatinine and Glomerular filtration rate.predicted panel (S/P/Bld) 75 mL/min/1.73m??? Normal >=60 [facility] Comment on above: Order Comment: Speci men Type: BLOOD SPECIMENOrdering Facility: [facility] Address: [address] [place] [address] Result Comment: Ivonne mated Glomerular Filtration Rate [...] GFR. Performed By: #### 2 432-8, 2132-04 ####[facility] [id number] [place] [address] [place] Glucose [Mass/Vol] 98 mg/dL Normal 74-99 [facility] Comment on above: Order Comment: Speci men Type: BLOOD SPECIMENOrdering Facility: [facility] Address: [address] [place] [address] Result Comment: The [place] Diabetes Association (ADA) provides guidance for cutoff [...] Standards of Medical Care in Diabetes 2016, [place] [employer]. Diabetes Care. 2016.39(Suppl 1). Performed By: #### 2 43210-21, 2132-04 ####[facility] [id number] [address] [address] [place] Potassium [Moles/Vol] 4.9 mmol/L Normal 3.7-5.1 [facility] Comment on above: Order Comment: Migel men Type: BLOOD SPECIMENOrdering Facility: [facility] Address: [address] [place] [address] Performed By: #### 2 43210-21, 2132-04 ####[facility] [id number] [address] [address] [place] Protein [Mass/Vol] 6.9 g/dL Normal 6.3-8.0 [facility] Comment on above: Order Comment: Speci men Type: BLOOD SPECIMENOrdering Facility: [facility] Address: [address] [place] [address] Performed By: #### 2 4323-8, 2132-04 ####[facility] [id number] [place] [address] [place] Sodium [Moles/Vol] 131 mmol/L Low 136-144 [facility] Comment on above: Order Comment: Speci men Type: BLOOD SPECIMENOrdering Facility: [facility] Address: [address] [place] [address] Performed By: #### 2 4323-8, 2132-04 ####[facility] [id number] [place] [address] [place] Urea nitrogen [Mass/Vol] 15 mg/dL Normal 7-21 [facility] Comment on above: Order Comment: Speci men Type: BLOOD SPECIMENOrdering Facility: [facility] Address: [address] [place] [address] Performed By: #### 2 4323-8, 2132-04 ####[facility] [id number] [place] [address] [place] Ferritin SerPl-mCncon 2023 Ferritin [Mass/Vol] 363.0 ng/mL High 14.7-205.1 [facility] Comment on above: Order Comment: Speci men Type: BLOOD SPECIMENOrdering Facility: [facility] Address: [address] [place] [address] Performed By: #### 5 0190-8, 96340-6, 19013-7, 2276-4 ####[facility] [id number] [place] [address] [place] Iron and Iron binding capaci ty panelon 02-18-2024 Iron [Mass/Vol] 56 ug/dL Normal 41-186 [facility] Comment on above: Order Comment: Speci men Type: BLOOD SPECIMENOrdering Facility: [facility] Address: [address] [place] [address] Performed By: #### 5 0190-8, 96289-1, 88410-9, 6-4 ####[facility] [id number] [place] [address] [place] Iron binding capacity [Mass/Vol] 293 ug/dL Normal 232-386 [facility] Comment on above: Order Comment: Speci men Type: BLOOD SPECIMENOrdering Facility: [facility] Address: [address] [place] [address] Performed By: #### 5 0190-8, 18374-3, 80815-9, 2275-4 ####[facility] [id number] [place] [address] [place] Iron/TIBC [Molar ratio] 19.1 % Normal 15.0-57.0 [facility] Comment on above: Order Comment: Speci men Type: BLOOD SPECIMENOrdering Facility: [facility] Address: [address] [place] [address] Performed By: #### 5 0190-8, 24626-2, 46575-9, 2275-4 ####[facility] [id number] [place] [address] [place] Lipid 1996 panelon Cholesterol [Mass/Vol] 114 mg/dL Normal <200 [facility] Comment on above: Order Comment: Speci men Type: BLOOD SPECIMENOrdering Facility: [facility] Address: [address] [place] [address] Result Comment: <200 mg/dL, Desirable 200-239 mg/dL, Borderline high >239 mg/dL, High Performed By: #### 5 0190-8, 31521-9, 52456-3, 2276-4 ####[facility] [id number] [place] [address] [place] Cholesterol in HDL [Mass/Vol] 57 mg/dL Normal >39 [facility] Comment on above: Order Comment: Migel kin Type: BLOOD SPECIMENOrdering Facility: [facility] Address: [address] [place] [address] Result Comment: 40-5 9 mg/dL, Acceptable >59 mg/dL, High: Negative risk factor for coronary heart disease <40 mg/dL, Low: Positive risk factor for coronary heart disease Performed By: #### 5 0190-8, 86648-9, 52394-1, 2276-4 ####[facility] [id number] [address] [place] Cholesterol in LDL [Mass/Vol] 46 mg/dL Normal <100 [facility] Comment on above: Order Comment: Migel sanderson Type: BLOOD SPECIMENOrdering Facility: [facility] Address: [address] [place] [address] Result Comment: <100 mg/dL, Optimal 100-129 mg/dL, Near optimal/above optimal 130-159 mg/dL, Borderline high 160-189 mg/dL, High >189 mg/dL, Very high Secondary prevention optimal LDL Cholesterol levels are recommended to be < 70 mg/dL Performed By: #### 5 0190-8, 37433-8, 10719-1, 2276-4 ####[facility] [id number] [address] [place] Cholesterol in LDL/Cholesterol in HDL [Mass ratio] 0.81 {ratio} Normal <2.54 [facility] Comment on above: Order Comment: Angelinai men Type: BLOOD SPECIMENOrdering Facility: [facility] Address: [address] [place] [address] Result Comment: Refe ajce: 1. National Cholesterol Education Program ATP III Guideline At-A-Glance Quick Desk Reference: National Heart, Lung, and Blood [place]. National Institutes of Health. 2001: NIH Publication No. 01-3305. 2. An International Atherosclerosis Society position paper: global recommendations for the management of dyslipidemia: executive summary, Atherosclerosis. 2014: 232(2):410-413. Performed By: #### 5 0190-8, 66915-8, 96291-7, 2275- ####[facility] [id number] [address] [address] [place] Cholesterol in VLDL [Mass/Vol] 11 mg/dL Normal <30 [facility] Comment on above: Order Comment: Speci men Type: BLOOD SPECIMENOrdering Facility: [facility] Address: [address] [place] [address] Performed By: #### 5 0190-8, , 40973-0, 2275-11 ####[facility] [id number] [address] [address] [place] Cholesterol non HDL [Mass/Vol] 57 mg/dL Normal <130 [facility] Comment on above: Order Comment: Speci men Type: BLOOD SPECIMENOrdering Facility: [facility] Address: [address] [place] [address] Result Comment: <130 mg/dL, Optimal 130-159 mg/dL, Near optimal/above optimal 160-189 mg/dL, Borderline high 190-219 mg/dL, High >219 mg/dL, Very high Secondary prevention optimal non HDL Cholesterol levels are recommended to be <100 mg/dL Performed By: #### 5 0190-8, , 51153-1, 2275- ####[facility] [id number] [address] [address] [place] Cholesterol.total/Chol esterol in HDL [Mass ratio] 2.00 {ratio} Normal <5.10 [facility] Comment on above: Order Comment: Speci men Type: BLOOD SPECIMENOrdering Facility: [facility] Address: [address] [id number] Performed By: #### 5 0190-8, 51825-8, 89617-8, 2275- ####[facility] [id number] [place] [id number] [place] FASTING TIME 13 hrs Normal [facility] Comment on above: Order Comment: Speci men Type: BLOOD SPECIMENOrdering Facility: [facility] Address: [address] [place] [address] Performed By: #### 5 0190-8, 89630-4, 70849-0, 6-4 ####[facility] [id number] [place] [address] [place] Triglyceride [Mass/Vol] 57 mg/dL Normal <150 [facility] Comment on above: Order Comment: Speci men Type: BLOOD SPECIMENOrdering Facility: [facility] Address: [address] [place] [address] Result Comment: <150 mg/dL, Normal 150-199 mg/dL, Borderline high 200-499 mg/dL, High >499 mg/dL, Very high Performed By: #### 5 0190-8, 15367-3, 31926-3, 2275-4 ####[facility] [id number] [place] [address] [place] Magnesium SerPl-mCncon 02-17 Magnesium [Mass/Vol] 1.9 mg/dL Normal 1.7-2.3 [facility] Comment on above: Order Comment: Speci men Type: BLOOD SPECIMENOrdering Facility: [facility] Address: [address] [place] [address] Performed By: #### 5 0190-8, 87193-3, 91783-9, 2275-4 ####[facility] [id number] [place] [address] [place] Vit B12 SerPl-mCncon 024 Cobalamin (Vitamin B12) [Mass/Vol] 673 pg/mL Normal 232-1245 [facility] Comment on above: Order Comment: Speci men Type: BLOOD SPECIMENOrdering Facility: [facility] Address: [address] [place] [address] Performed By: #### 2 4323-8, 2132-9 ####[facility] [id number] [address] [place] [address] [place] Large Joint Arthro/Inj: L kn ee jointon 12-17-2023 Edgard Dubois P A-C 12/17/2023 12:31 PM Large Joint Arthro/Inj: L knee joint Informed Consent Consent Obtained: Verbal [place] Protocol A moment to CARE was completed. [...] equipment, possible retained foreign bodies accounted for. [facility] DXA-AXIAL SKELETONon [address] [facility] NAVI SCREENINGon 01-04-2023 [facility] SCREENINGon 01-01-[address] [facility] Culture, Blood (WB)on 2016 CUB BCGRAM STAIN: GRAM POSITIVE COCCI CALLED TO Blanca LAMA 07/18/17 1907 BY JOHN Possible skin contamination, further Identification and sensitivity will be performed only by physician's request. No anaerobic bacteria isolated. ORGANISM 1: Alpha Hemolytic StreptococcusAmount Growth Growth Normal [facility] Comment on above: Performed By: #### M 200.1000, M100.636 ####[facility] [address] [place], [address] Culture, Deep Woundon 2016 WBC (Leukocytes) Gram [...] $ <=20 S(NF) indicates non-formulary drug at [facility]. Approval by Infectious Disease Specialist required before non-formulary drugs may be ordered and/or dispensed. Cult, AnaerobicNo anaerobic bacteria isolated. Normal [facility] Comment on above: Performed By: #### M 100.1500 ####[facility] [address] [facility] [place], [address] 12 Lead Electrocardiogramon 07-22-2017 12 Lead Electrocardiogram [facility] [address] [place], [place] [address] Lead EKG1/ 1621MR#: [id number] Acct: [id number]: SUSAN CALDERON Rep #: [id number]: 1955 62 [...] was foundConfirmed by MINOR JONES MD ([id number]), multimedia editor MISHEL AHNNAH ([id number]) on 07/22/2017 3:16:15 PMReferred By: ROYER Confirmed By:MINOR JONES MD07/22/17 1516Date Minor Jones MDCC: Cee Christianson MD Signed Normal [facility] Culture, Blood (WB)on 2016 CUB BC No growth in 5 days. Normal [facility] Comment on above: Performed By: #### M 200.1000 ####[facility] [address] [place], [address] 12 Lead Electrocardiogramon 07-20-2017 12 Lead Electrocardiogram [facility] [address] [place], [place] [address] Lead EKG109/14/16 1419MR#: [id number] Acct: [id number]: SUSAN CALDERON Rep #: [id number]: 1955 62 [...] rhythmNormal ECGConfirmed by MINOR JONES MD ([id number]), multimedia editor MISHEL HANNAH (55) on 07/20/2017 3:28:48 PMReferred By: SO Confirmed By:MINOR JONES MD07/20/17 1528Date Minor Jones MDCC: Cee Christianson MD Signed Normal [facility] BC GPC IDon 07-19-2017 BC GPC ID BC GPC IDStaphylococ cus sp. Not DetectedEnterococcus sp. Not DetectedStreptococcus spp. Streptococcus sp. (NOT S. pneumoniae)Listeria spp Not DetectedvanA/vanB Not DetectedmecA Not DetectedNAAT METHOD Testing was performed using nucleic acid amplification ORGANISM 1: Strep not Strep pneumo Normal [facility] Comment on above: Performed By: #### M 200.1000, M100.636 ####[facility] [address] [place], [address] CBC W/Diff, Automatedon 12- Absolute Neut 6.6 X10 3/uL Normal 2.0-7.7 [facility] Comment on above: Performed By: #### L 100.0100 ####[facility] [address] [place], [address] Basophils/100 WBC Auto (Bld) 0.8 % Normal 0-1 [facility] Comment on above: Performed By: #### L 100.0100 ####[facility] [address] [place], [address] Eosinophils/100 leukocytes 2.5 % Normal 0-5 [facility] Comment on above: Performed By: #### L 100.0100 ####[facility] [address] [place], [address] Erythrocyte distribution width Auto Ratio (RBC) 12.4 % Normal 11.6-14.6 [facility] Comment on above: Performed By: #### L 100.0100 ####[facility] [address] [place], [address] Erythrocytes (RBC) 2.87 M/mm3 Low 4.2-5.4 [facility] Comment on above: Performed By: #### L 100.0100 ####[facility] [address] [place], [address] Hematocrit (HCT) 28.9 % Low 37-47 [facility] Comment on above: Performed By: #### L 100.0100 ####[facility] [address] [place], [address] Hemoglobin mass conc (Bld) 9.2 g/dL Low 12.0-15.0 [facility] Comment on above: Performed By: #### L 100.0100 ####[facility] [address] [place], [address] HYPOCHROMASIA 2+ Normal [facility] Comment on above: Performed By: #### L 100.0100 ####[facility] [address] [place], [address] IM GRAN % 0.700 % Normal 0.0-0.9 [facility] Comment on above: Result Comment: IG% - Immature Granulocytes (promyelocytes, myelocytes andmetamyelocytes) > 1% indicates that a LEFT SHIFT is Present. Performed By: #### L 100.0100 ####[facility] [address] [place], [address] Lymphocytes 2.80 X10 3/ul Normal 0.83-4.51 [facility] Comment on above: Performed By: #### L 100.0100 ####[facility] [address] [place], [address] Lymphocytes/100 leukocytes 26.1 % Normal 19-41 [facility] Comment on above: Performed By: #### L 100.0100 ####[facility] [address] [place], [address] MCH 32.1 pg High 27.0-32.0 [facility] Comment on above: Performed By: #### L 100.0100 ####[facility] [address] [place], [address] MCHC mass conc (RBC) 31.8 g/gl Low 32-36 [facility] Comment on above: Performed By: #### L 100.0100 ####[facility] [address] [place], [address] MCV 100.7 fL High 81-99 [facility] Comment on above: Performed By: #### L 100.0100 ####[facility] [address] [place], [address] Monocytes/100 leukocytes 8.0 % Normal 0-10 [facility] Comment on above: Performed By: #### L 100.0100 ####[facility] [address] [place], [address] Neutrophils/100 WBC Auto (Bld) 61.9 % Normal 47-70 [facility] Comment on above: Performed By: #### L 100.0100 ####[facility] [address] [place], [address] Platelet mean volume (PMV) 9.4 fL Normal 6.2-12.0 [facility] Comment on above: Performed By: #### L 100.0100 ####[facility] [address] [place], [address] Platelets 458 10*3/uL High 150-450 [facility] Comment on above: Performed By: #### L 100.0100 ####[facility] [address] [place], [address] PLT EST ADEQUATE Normal ADEQ [facility] Comment on above: Performed By: #### L 100.0100 ####[facility] [address] [place], [address] RDW SD 46.1 fl High 35.1-43.9 [facility] Comment on above: Performed By: #### L 100.0100 ####[facility] [address] [place], [address] SMEAR COMMENT SCANNED Normal [facility] Comment on above: Performed By: #### L 100.0100 ####[facility] [address] [place], [address] WBC (Leukocytes) 10.1 10*3/uL Normal 4.4-11.0 [facility] Comment on above: Performed By: #### L 100.0100 ####[facility] [address] [place], [address] Comprehensive Metabolic Prof ilon 07-19-2017 A/G 0.5 RATIO Low 0.9-2.4 [facility] Comment on above: Performed By: #### L 500.4050 ####[facility] [address] [place], [address] Alanine aminotransferase (ALT) 24 U/L Normal 12-78 [facility] Comment on above: Performed By: #### L 500.4050 ####[facility] [address] [place], [address] Albumin 2.0 g/dL Low 3.4-5.0 [facility] Comment on above: Result Comment: Sharon martin note revised Albumin AND Globulin reference rangeeffective 2017. Performed By: #### L 500.4050 ####[facility] [address] [place], [address] Alkaline phosphatase (ALP) 43 U/L Low 45-117 [facility] Comment on above: Performed By: #### L 500.4050 ####[facility] [address] [place], [address] Aspartate aminotransferase (AST) 27 U/L Normal 15-37 [facility] Comment on above: Performed By: #### L 500.4050 ####[facility] [address] [place], [address] Bilirubin (total) 0.20 mg/dL Normal 0.20-1.00 [facility] Comment on above: Performed By: #### L 500.4050 ####[facility] [address] [place], [address] BUN (urea nitrogen) 13.0 RATIO Normal 10-20 [facility] Comment on above: Performed By: #### L 500.4050 ####[facility] [address] [place], [address] Calcium 8.0 mg/dL Low 8.5-10.1 [facility] Comment on above: Performed By: #### L 500.4050 ####[facility] [address] [place], [address] Chloride 102 mmol/L Normal 98-107 [facility] Comment on above: Performed By: #### L 500.4050 ####[facility] [address] [place], [address] CO2 29.0 mmol/L Normal 21.0-32.0 [facility] Comment on above: Performed By: #### L 500.4050 ####[facility] [address] [place], [address] Creatinine 0.38 mg/dL Low 0.55-1.02 [facility] Comment on above: Result Comment: The validity of the calculated GFR AND GFRAA in patients over70 years has not been determined. Clinical correlation isessential. Performed By: #### L 500.4050 ####[facility] [address] [place], [address] eGFR (non-black) 180 mL/min/{1.73_m2} Normal >60 [facility] Comment on above: Result Comment: Non- GFR Calc Performed By: #### L 500.4050 ####[facility] [address] [place], [address] eGFR (non-black) 217 mL/min/{1.73_m2} Normal >60 [facility] Comment on above: Result Comment: Afri can Icelandic GFR Calc Performed By: #### L 500.4050 ####[facility] [address] [place], [address] Estimated CRCL 141.86 ml/min Normal [facility] Comment on above: Performed By: #### L 500.4050 ####[facility] [address] [place], [address] GAP 9 Normal 5-15 [facility] Comment on above: Performed By: #### L 500.4050 ####[facility] [address] [place], [address] Globulin 4.3 g/dL High 2.2-4.2 [facility] Comment on above: Performed By: #### L 500.4050 ####[facility] [address] [place], [address] Glucose mass conc 91 mg/dL Normal 70-110 [facility] Comment on above: Performed By: #### L 500.4050 ####[facility] [address] [place], [address] Potassium molar conc 3.3 mmol/L Low 3.5-5.1 [facility] Comment on above: Performed By: #### L 500.4050 ####[facility] [address] [place], [address] Sodium 140 mmol/L Normal 136-145 [facility] Comment on above: Performed By: #### L 500.4050 ####[facility] [address] [place], [address] T PROT 6.3 g/dL Low 6.4-8.2 [facility] Comment on above: Performed By: #### L 500.4050 ####[facility] [address] [place], [address] Urea nitrogen 5 mg/dL Low 7-18 [facility] Comment on above: Performed By: #### L 500.4050 ####[facility] [address] [place], [address] Discharge Instructionon Discharge Instruction [facility]OM[facility] Records [address] [place], [place] [address]Ljigvomcwnvp for Home/Discharge Msjjzsswsgds50/04/17 1134#: [id number] Acct: [id number]: SUSAN CALDERON Rep #: [id number]: 1955 62 [...] time, thank you07/19/[address] [facility]: Cee Christianson MD Normal [facility] MRSA Wound DNA by PCRon MRSA RESULT Negative Normal Negative [facility] Comment on above: Order Comment: Comme nts: abdominal woundSpecimen Source? abdominal wound Performed By: #### L 8200.1075 ####[facility] [address] [place], [address] SA RESULT Negative Normal Negative [facility] Comment on above: Order Comment: Comme nts: abdominal woundSpecimen Source? abdominal wound Performed By: #### L 8200.1075 ####[facility] [address] [place], [address] Operative Reporton Operative Report [facility]OM[facility] Records [address] [place] [address]Nhpxsvwvi Deyfkk16/24/172023MR#: [id number] Acct: [id number]: SUSAN CALDERON Rep #: [id number]: 1955 62 From: Susan June MDPCP: Cee Christianson MD Status: DIS IN YLocation: MS2 [id number] of OperationDate of Procedure: 07/09/17Pre-Operative Diagnosis: K 50.812 small bowel obstructionPost-Operative Diagnosis: Same, necrotic-appearing small bowelSurgery/Procedure Performed:: Diagnostic laparoscopy, converted to open exploratory laparotomy,lysis of adhesions, small bowel resectionDescription of Surgical Findings::dense adhesions in the area of previous hysterectomy with loop of bowel ileum twisted uponitself - appeared necroticConcern for retroperitoneal adhesions and bleeding and therefore intraoperative consultationwith Dr. Reaves was obtainedOR Section Housekeeper: Dasha Reaves of Anesthesia:: GeneralAnesthesiologist: Cathy Hernandez [...] theopenings and fired, thus creating a stapled qqca-db-dmue, functional end-to-end anastomosis.The resulting opening from the [...] openings and fired, thus creating a stapled hqnd-sc-ibyy,functional end-to-end anastomosis. The resulting opening from the [...] Prophylaxis ordered?: Yes07/19/17 1612 Date Susan June [facility]: Susan June MD; Cee Christianson MD Signed Normal [facility] Abdomen/Pelvis W IV Cont ONL Yon 07-17-2017 Abdomen/Pelvis W IV Cont ONLY [facility] [address] [place], [place] [address]Ejankrd/Pelvis W IV Cont ONLYMR#: [id number] Acct: [id number]: SUSAN CALDERON Rep #: [id number]: 1955 F 62 From: Aravind Hernandez MDPCP: Cee Christianson MD Status: REG ERStudy: Abdomen/Pelvis W IV Cont ONLY Date of Exam: 07/17/17Exam# [id number] Ordering Dr: Kamini Rosa MDSTUDY: CT ABDOMEN [...] fusion from L4 to S1. ORDER #: [id number] CT/Abdomen/Pelvis W IV Cont ONLYIMPRESSION:Postoperati ve changes. Mild residual pneumoperitoneum on the right.Collection of the abdominal wall with possible abscess.N.B. : The above information has been verbally conveyed by Aravind Hernandez MD to Dr. Kamini Rosa , Referring Physician, on 07/17/2017 15:11:31(ET).Electronicall y Signed:Aravind Hernandez MD at 14:55 ESTTel , Service support , P.B. : The above information has been verbally conveyed by Aravind Hernandez MD to Dr. Kamini Rosa , Referring Physician, on 07/17/2017 15:11:31(ET).CC: Kamini Rosa MD; Cee Christianson MD Recyclable Materials Collector:Signed Normal [facility] Basic Metabolic Profile (BMP )on 07-17-2017 BUN (urea nitrogen) 11.7 RATIO Normal 10-20 [facility] Comment on above: Performed By: #### L 500.2500 ####[facility] [address] [place], [address] Calcium 8.4 mg/dL Low 8.5-10.1 [facility] Comment on above: Performed By: #### L 500.2500 ####[facility] [address] [place], [address] Chloride 94 mmol/L Low 98-107 [facility] Comment on above: Performed By: #### L 500.2500 ####[facility] [address] [place], [address] CO2 34.0 mmol/L High 21.0-32.0 [facility] Comment on above: Performed By: #### L 500.2500 ####[facility] [address] [place], [address] Creatinine 0.43 mg/dL Low 0.55-1.02 [facility] Comment on above: Result Comment: The validity of the calculated GFR AND GFRAA in patients over70 years has not been determined. Clinical correlation isessential. Performed By: #### L 500.2500 ####[facility] [address] [place], [address] eGFR (non-black) 159 mL/min/{1.73_m2} Normal >60 [facility] Comment on above: Result Comment: Non- GFR Calc Performed By: #### L 500.2500 ####[facility] [address] [place], [address] eGFR (non-black) 193 mL/min/{1.73_m2} Normal >60 [facility] Comment on above: Result Comment: Afri can Icelandic GFR Calc Performed By: #### L 500.2500 ####[facility] [address] [place], [address] Estimated CRCL 125.36 ml/min Normal [facility] Comment on above: Performed By: #### L 500.2500 ####[facility] [address] [place], [address] GAP 8 Normal 5-15 [facility] Comment on above: Performed By: #### L 500.2500 ####[facility] [address] [place], [address] Glucose mass conc 98 mg/dL Normal 70-110 [facility] Comment on above: Performed By: #### L 500.2500 ####[facility] [address] [place], [address] Potassium molar conc 3.3 mmol/L Low 3.5-5.1 [facility] Comment on above: Performed By: #### L 500.2500 ####[facility] [address] [place], [address] Sodium 136 mmol/L Normal 136-145 [facility] Comment on above: Performed By: #### L 500.2500 ####[facility] [address] [place], [address] Urea nitrogen 5 mg/dL Low 7-18 [facility] Comment on above: Performed By: #### L 500.2500 ####[facility] [address] [place], [address] CBC W/Diff, Automatedon 12-0 2-2017 Absolute Neut 11.3 X10 3/uL High 2.0-7.7 [facility] Comment on above: Performed By: #### L 100.0100 ####[facility] [address] [place], [address] Basophils/100 WBC Auto (Bld) 0.3 % Normal 0-1 [facility] Comment on above: Performed By: #### L 100.0100 ####[facility] [address] [place], [address] Eosinophils/100 leukocytes 1.4 % Normal 0-5 [facility] Comment on above: Performed By: #### L 100.0100 ####[facility] [address] [place], [address] Erythrocyte distribution width Auto Ratio (RBC) 12.4 % Normal 11.6-14.6 [facility] Comment on above: Performed By: #### L 100.0100 ####[facility] [address] [place], [address] Erythrocytes (RBC) 3.08 M/mm3 Low 4.2-5.4 [facility] Comment on above: Performed By: #### L 100.0100 ####[facility] [address] [place], [address] Hematocrit (HCT) 31.1 % Low 37-47 [facility] Comment on above: Performed By: #### L 100.0100 ####[facility] [address] [place], [address] Hemoglobin mass conc (Bld) 10.0 g/dL Low 12.0-15.0 [facility] Comment on above: Performed By: #### L 100.0100 ####[facility] [address] [place], [address] IM GRAN % 0.400 % Normal 0.0-0.9 [facility] Comment on above: Result Comment: IG% - Immature Granulocytes (promyelocytes, myelocytes andmetamyelocytes) > 1% indicates that a LEFT SHIFT is Present. Performed By: #### L 100.0100 ####[facility] [address] [place], [address] Lymphocytes 2.05 X10 3/ul Normal 0.83-4.51 [facility] Comment on above: Performed By: #### L 100.0100 ####[facility] [address] [place], [address] Lymphocytes/100 leukocytes 14.0 % Low 19-41 [facility] Comment on above: Performed By: #### L 100.0100 ####[facility] [address] [place], [address] MCH 32.5 pg High 27.0-32.0 [facility] Comment on above: Performed By: #### L 100.0100 ####[facility] [address] [place], [address] MCHC mass conc (RBC) 32.2 g/gl Normal 32-36 [facility] Comment on above: Performed By: #### L 100.0100 ####[facility] [address] [place], [address] MCV 101.0 fL High 81-99 [facility] Comment on above: Performed By: #### L 100.0100 ####[facility] [address] [place], [address] Monocytes/100 leukocytes 6.4 % Normal 0-10 [facility] Comment on above: Performed By: #### L 100.0100 ####[facility] [address] [place], [address] Neutrophils/100 WBC Auto (Bld) 77.5 % High 47-70 [facility] Comment on above: Performed By: #### L 100.0100 ####[facility] [address] [place], [address] Platelet mean volume (PMV) 9.6 fL Normal 6.2-12.0 [facility] Comment on above: Performed By: #### L 100.0100 ####[facility] [address] [place], [address] Platelets 462 10*3/uL High 150-450 [facility] Comment on above: Performed By: #### L 100.0100 ####[facility] [address] [place], [address] RDW SD 46.1 fl High 35.1-43.9 [facility] Comment on above: Performed By: #### L 100.0100 ####[facility] [address] [place], [address] WBC (Leukocytes) 14.6 10*3/uL High 4.4-11.0 [facility] Comment on above: Performed By: #### L 100.0100 ####[facility] [address] [place], [address] Chest 1 View (Portable)on Chest 1 View (Portable) [facility] [address] [place], [place] [address]Jwbkb 1 View (Portable)MR#: [id number] Acct: [id number]: SUSAN CALDERON Lance Rep #: [id number]: 1955 F 62 From: Aravind Hernandez MDPCP: Cee Christianson MD Status: REG ERStudy: Chest 1 View (Portable) Date of Exam: 07/17/17Exam# [id number] Ordering Dr: Mendoza Kline MDSTUDY: X-RAY CHESTREASON [...] tissuestructures of the upper abdomen. ORDER #: [id number] RAD/Chest 1 View (Portable)IMPRESSION:Degen erative changes, as described above. No demonstrated acutecardiopulmonary process.Electronically Signed:Aravind Hernandez MD at 16:32 ESTTel , Service support , MH: Cee Christianson MD; Mendoza Kline MD Recyclable Materials Collector:Signed Normal [facility] Emergency Department Summary on 07-17-2017 Emergency Department Summary [facility] Records [address] [facility] [place], [place] [address]Azlhqcigj Department Uaaoyeq81/02/17 1250#: [id number] Acct: [id number]: SHERRICALEBCECILIASUSAN A Rep #: [id number]: 1955 62 From: [...] is soft mildly tender with no rebound. Mullens intact with surrounding erythema andpurulent drainage.Extremities are unremarkable.Skin is warm and dry.Remainder of exam is unremarkable.Emergency Department Course and Treatment: CBC shows a white count of 14.6. CT abd/pelvisshows fluid collection with possible abscess. Discussed with Dr Kline who will evaluate thepatient in the ED.Disposition: per Dr Brewstermpression: Post operative wound infectionThis note was generated with Panda Securityation software. It may contain incorrect words,spelling, and punctuation that were not noted in review of the chart prior to signingED Disposition- Plan for ED Patient:Chief Complaint: Wound CheckReferrals:Amanda Christianson MD [Primary Care Provider] -What to do if you have ProblemsFor any increased pain, shortness of breath, bleeding, nausea or vomiting, chest pain, or anyunexpected problems, contact your Primary Care Provider. Call Doctors Registry ([phone])or report to the closest Emergency Room.Call 911 if necessary.07/17/17 1512 Date [facility] Signature (If Indicated): Date CC: Cee Christianson MD [facility] History and Physical Examon 07-17-2017 History and Physical Exam [facility]HIOMed[facility] Records [address] [place], [place] [address]Fvbzvjo and Rkdmalzb90/02/17 1613MR#: [id number] Acct: [id number]: SUSAN CALDERON Rep #: [id number]: 1955 62 [...] with iodoform gauze.07/17/17 1622 Date [facility]line [facility] Signature: Date (if applicable)CC: Cee Christianson MD; Mendoza Kline MD Signed Normal [facility] History and Physical Exam [facility] OHIOMedical Records [address] [place], [place] [address]Thonouv and Uubepmoj19/02/17 1618MR#: [id number] Acct: [id number]: SUSAN CALDERON Rep #: [id number]: 1955 62 [...] No pertinent psych hxGYN History: No pertinent ROAD MANAGER historySmoking Status: Current some day smoker- *Family [...] at the umbilicus and along themidline incision. Mullens were removed above and below the incision [...] Christianson MD; Mendoza Kline MD Signed Normal [facility] Basic Metabolic Profile (BMP )on 07-15-2017 BUN (urea nitrogen) 11.9 RATIO Normal 10-20 [facility] Comment on above: Performed By: #### L 500.2500 ####[facility] [address] [place], [address] Calcium 8.1 mg/dL Low 8.5-10.1 [facility] Comment on above: Performed By: #### L 500.2500 ####[facility] [address] [place], [address] Chloride 102 mmol/L Normal 98-107 [facility] Comment on above: Performed By: #### L 500.2500 ####[facility] [address] [place], [address] CO2 25.0 mmol/L Normal 21.0-32.0 [facility] Comment on above: Performed By: #### L 500.2500 ####[facility] [address] [place], [address] Creatinine 0.34 mg/dL Low 0.55-1.02 [facility] Comment on above: Result Comment: The validity of the calculated GFR AND GFRAA in patients over70 years has not been determined. Clinical correlation isessential. Performed By: #### L 500.2500 ####[facility] [address] [place], [address] eGFR (non-black) 210 mL/min/{1.73_m2} Normal >60 [facility] Comment on above: Result Comment: Non- GFR Calc Performed By: #### L 500.2500 ####[facility] [address] [place], [address] eGFR (non-black) 254 mL/min/{1.73_m2} Normal >60 [facility] Comment on above: Result Comment: Afri can Icelandic GFR Calc Performed By: #### L 500.2500 ####[facility] [address] [place], [address] Estimated CRCL 158.55 ml/min Normal [facility] Comment on above: Performed By: #### L 500.2500 ####[facility] [address] [place], [address] GAP 10 Normal 5-15 [facility] Comment on above: Performed By: #### L 500.2500 ####[facility] [address] [place], [address] Glucose mass conc 77 mg/dL Normal 70-110 [facility] [facility] Comment on above: Performed By: #### L 500.2500 ####[facility] [address] [place], [address] Potassium molar conc 4.3 mmol/L Normal 3.5-5.1 [facility] Comment on above: Result Comment: Mode rate Hemolysis, Result may be falsely increased. Performed By: #### L 500.2500 ####[facility] [address] [place], [address] Sodium 137 mmol/L Normal 136-145 [facility] Comment on above: Performed By: #### L 500.2500 ####[facility] [address] [place], [address] Urea nitrogen 4 mg/dL Low 7-18 [facility] Comment on above: Performed By: #### L 500.2500 ####[facility] [address] [place], [address] Discharge Instructionon 06-18 Discharge Instruction [facility] OHIOMedical Records [address] [place], [place] [address]Gqajjmdlp Bbxjzvjeswe28/30/17 1617#: [id number] Acct: [id number]: SUSAN CALDERON Rep #: [id number]: 1955 62 [...] your Primary Care Provider. Call Doctors [facility] ([phone])or report to the closest Emergency Room.Call 911 if necessary.07/15/17 1648 Date Stefano Garcia [facility] Signature (If Indicated): Date CC: Cee Christianson MD Normal [facility] Emergency Department Summary on 07-15-2017 Emergency Department Summary [facility] OHIOMed[facility] Records [address] [place] [address]Tvzmegziz Department Yscrkxr20/30/17 1613MR#: [id number] Acct: [id number]: SUSAN CALDERON Rep #: [id number]: 1955 62 From: Stefano Garcia MDPCP: Cee Christianson MD Status: DEP ER- ER Visit SummaryDate of Service: 07/15/17Chief Complaint: Lower leg swellingHistory of Present Illness: The patient is a 62 F [facility] with a partial small [...] small bowel resectionThis note was generated with Lánzanos dictation software. It may contain incorrect words,spelling, and punctuation that were not noted in review of the chart prior to signingED Disposition- Plan for ED Patient:Chief Complaint: EdemaReferrals:Amanda Christianson MD [Primary Care Provider] -What to do if you have ProblemsFor any increased pain, shortness of breath, bleeding, nausea or vomiting, chest pain, or anyunexpected problems, contact your Primary Care Provider. Call [facility] ([phone])or report to the closest Emergency Room.Call 911 if necessary.07/15/17 1648 Date [place]fano Garcia [facility] Signature (If Indicated): Date CC: Cee Chrsitianson MD Normal [facility] Discharge Instructionon 06-17 Discharge Instruction [facility]OM[facility] Records [address] [place] [place] [address]Jsreppxqpygn for Home/Discharge Ewrbrosoplfv56/29/17 1139MR#: [id number] Acct: [id number]: SUSAN CALDERON Rep #: [id number]: 1955 62 [...] MDCC: Susan June MD; Cee Christianson MD [facility] Discharge Summaryon 07-14-20 17 Discharge Summary [facility] Records [address] [place] [place], [place] [address]Uhpbvmxmh Crgnfch38/29/17 1331MR#: [id number] Acct: [id number]: SUSAN CALDERON Rep #: [id number]: 1955 62 From: Mayra Lloyd MDPCP: Cee Christianson MD Status: DIS IN YLocation: MS2 [id number] Date and DiagnosisDate of Admission: 07/07/17Date of [...] Signed:Deanna Beltran MD at 17:33 ESTTel Direct: [phone], Service support , Uxsysyc/Pelvis CT 07/07/17 18:52IMPRESSION:The fluid-filled tubular structures in [...] Signed:Deanna Beltran MD at 22:30 ESTTel Direct: [phone], Service support , DNP X-Ray 07/07/17 22:58IMPRESSION:The tip of the nasogastric tube is in the expected location of the body ofthe stomach.Electronically Signed:Deanna Beltran MD at 23:55 ESTTel Direct: [phone], Service support , DXG X-Ray 07/08/17 05:55IMPRESSION:Unremarkab le abdominal bowel gas pattern.Electronically Signed:Andrei Prather DO at 9:51 ESTTel , Service support , Qxhvx Abdomen Series 07/09/17 07:27IMPRESSION:Enteric tube is visualized with the tip in the distal portion of thestomach.Gas pattern is unremarkable.Mild increased markings at the lung bases suggestive of mild basilaratelectasis.Electro nically Signed:Mikal Brambila MD at 9:43 ESTTel [phone], Service support , Qfgjdep X-Ray 07/09/17 14:00IMPRESSION:Mildly dilated small bowel loops in the upper abdomen with air-fluidlevels. This has worsened since prior study.Electronically Signed:Mikal Brambila MD at 15:36 ESTTel [phone], Service support , Nxsojmm, Dr. JuneOperations: - - Exploratory laparotomy, adhesiolysis, [...] Use Diagnoses (Choose all that apply): None lwxyqsomli30/29/17 1804 Date Ama Paintsil MDCosigner Signature (if applicable): Date CC: Mayra Lloyd MD; Cee Christianson MD Signed Normal [facility] Basic Metabolic Profile (BMP )on 07-12-2017 BUN (urea nitrogen) 34.5 RATIO High 10-20 [facility] Comment on above: Performed By: #### L 500.2500 ####[facility] [address] [place], [address] Calcium 7.6 mg/dL Low 8.5-10.1 [facility] Comment on above: Performed By: #### L 500.2500 ####[facility] [address] [place], [address] Chloride 114 mmol/L High 98-107 [facility] Comment on above: Performed By: #### L 500.2500 ####[facility] [address] [place], [address] CO2 21.0 mmol/L Normal 21.0-32.0 [facility] Comment on above: Performed By: #### L 500.2500 ####[facility] [address] [place], [address] Creatinine 0.26 mg/dL Low 0.55-1.02 [facility] Comment on above: Result Comment: The validity of the calculated GFR AND GFRAA in patients over70 years has not been determined. Clinical correlation isessential. Performed By: #### L 500.2500 ####[facility] [address] [place], [address] eGFR (non-black) 280 mL/min/{1.73_m2} Normal >60 [facility] Comment on above: Result Comment: Non- GFR Calc Performed By: #### L 500.2500 ####[facility] [address] [place], [address] eGFR (non-black) 339 mL/min/{1.73_m2} Normal >60 [facility] Comment on above: Result Comment: Afri can Icelandic GFR Calc Performed By: #### L 500.2500 ####[facility] [address] [place], [address] Estimated CRCL 207.33 ml/min Normal [facility] Comment on above: Performed By: #### L 500.2500 ####[facility] [address] [place], [address] GAP 9 Normal 5-15 [facility] Comment on above: Performed By: #### L 500.2500 ####[facility] [address] [place], [address] Glucose mass conc 82 mg/dL Normal 70-110 [facility] Comment on above: Performed By: #### L 500.2500 ####[facility] [address] [place], [address] Potassium molar conc 3.5 mmol/L Normal 3.5-5.1 [facility] Comment on above: Performed By: #### L 500.2500 ####[facility] [address] [place], [address] Sodium 144 mmol/L Normal 136-145 [facility] Comment on above: Performed By: #### L 500.2500 ####[facility] [address] [place], [address] Urea nitrogen 9 mg/dL Normal 7-18 [facility] Comment on above: Performed By: #### L 500.2500 ####[facility] [address] [place], [address] CBC-Complete Blood Cnt No Di ffon 07-12-2017 Erythrocyte distribution width Auto Ratio (RBC) 12.3 % Normal 11.6-14.6 [facility] Comment on above: Performed By: #### L 500.2500 ####[facility] [address] [place], [address] Erythrocytes (RBC) 2.74 M/mm3 Low 4.2-5.4 [facility] Comment on above: Performed By: #### L 500.2500 ####[facility] [address] [place], [address] Hematocrit (HCT) 28.1 % Low 37-47 [facility] Comment on above: Performed By: #### L 500.2500 ####[facility] [address] [place], [address] Hemoglobin mass conc (Bld) 9.0 g/dL Low 12.0-15.0 [facility] Comment on above: Performed By: #### L 500.2500 ####[facility] [address] [place], [address] MCH 32.8 pg High 27.0-32.0 [facility] Comment on above: Performed By: #### L 500.2500 ####[facility] [address] [place], [address] MCHC mass conc (RBC) 32.0 g/gl Normal 32-36 [facility] Comment on above: Performed By: #### L 500.2500 ####[facility] [address] [place], [address] MCV 102.6 fL High 81-99 [facility] Comment on above: Performed By: #### L 500.2500 ####[facility] [address] [place], [address] Platelet mean volume (PMV) 9.0 fL Normal 6.2-12.0 [facility] Comment on above: Performed By: #### L 500.2500 ####[facility] [address] [place], [address] Platelets 292 10*3/uL Normal 150-450 [facility] Comment on above: Performed By: #### L 500.2500 ####[facility] [address] [place], [address] RDW SD 46.4 fl High 35.1-43.9 [facility] Comment on above: Performed By: #### L 500.2500 ####[facility] [address] [place], [address] WBC (Leukocytes) 10.3 10*3/uL Normal 4.4-11.0 [facility] Comment on above: Performed By: #### L 500.2500 ####[facility] [address] [place], [address] Magnesiumon 07-12-2017 Magnesium 2.0 mg/dL Normal 1.8-2.4 [facility] Comment on above: Performed By: #### L 500.2500 ####[facility] [address] [place], [address] Basic Metabolic Profile (BMP )on 07-11-2017 BUN (urea nitrogen) 23.7 RATIO High 10-20 [facility] Comment on above: Performed By: #### L 500.2500 ####[facility] [address] [place], [address] Calcium 7.6 mg/dL Low 8.5-10.1 [facility] Comment on above: Performed By: #### L 500.2500 ####[facility] [address] [place], [address] Chloride 110 mmol/L High 98-107 [facility] Comment on above: Performed By: #### L 500.2500 ####[facility] [address] [place], [address] CO2 20.0 mmol/L Low 21.0-32.0 [facility] Comment on above: Performed By: #### L 500.2500 ####[facility] [address] [place], [address] Creatinine 0.38 mg/dL Low 0.55-1.02 [facility] Comment on above: Result Comment: The validity of the calculated GFR AND GFRAA in patients over70 years has not been determined. Clinical correlation isessential. Performed By: #### L 500.2500 ####[facility] [address] [place], [address] eGFR (non-black) 221 mL/min/{1.73_m2} Normal >60 [facility] Comment on above: Result Comment: Afri can Icelandic GFR Calc Performed By: #### L 500.2500 ####[facility] [address] [place], [address] eGFR (non-black) 182 mL/min/{1.73_m2} Normal >60 [facility] Comment on above: Result Comment: Non- GFR Calc Performed By: #### L 500.2500 ####[facility] [address] [place], [address] Estimated CRCL 141.86 ml/min Normal [facility] Comment on above: Performed By: #### L 500.2500 ####[facility] [address] [place], [address] GAP 11 Normal 5-15 [facility] Comment on above: Performed By: #### L 500.2500 ####[facility] [address] [place], [address] Glucose mass conc 115 mg/dL High 70-110 [facility] Comment on above: Result Comment: Fast ing Glucose result from 110 to <126 mg/dLsuggests IMPAIRED HOMEOSTASIS per A.D.A. criteria. Performed By: #### L 500.2500 ####[facility] [address] [place], [address] Potassium molar conc 3.8 mmol/L Normal 3.5-5.1 [facility] Comment on above: Performed By: #### L 500.2500 ####[facility] [address] [place], [address] Sodium 141 mmol/L Normal 136-145 [facility] Comment on above: Performed By: #### L 500.2500 ####[facility] [address] [place], [address] Urea nitrogen 9 mg/dL Normal 7-18 [facility] Comment on above: Performed By: #### L 500.2500 ####[facility] [address] [place], [address] Basic Metabolic Profile (BMP )on 07-10-2017 BUN (urea nitrogen) 18.1 RATIO Normal 10-20 [facility] Comment on above: Performed By: #### L 500.2500 ####[facility] [address] [place], [address] Calcium 7.5 mg/dL Low 8.5-10.1 [facility] Comment on above: Performed By: #### L 500.2500 ####[facility] [address] [place], [address] Chloride 107 mmol/L Normal 98-107 [facility] Comment on above: Performed By: #### L 500.2500 ####[facility] [address] [place], [address] CO2 19.0 mmol/L Low 21.0-32.0 [facility] Comment on above: Performed By: #### L 500.2500 ####[facility] [address] [place], [address] Creatinine 0.39 mg/dL Low 0.55-1.02 [facility] Comment on above: Result Comment: The validity of the calculated GFR AND GFRAA in patients over70 years has not been determined. Clinical correlation isessential. Performed By: #### L 500.2500 ####[facility] [address] [place], [address] eGFR (non-black) 215 mL/min/{1.73_m2} Normal >60 [facility] Comment on above: Result Comment: Afri can Icelandic GFR Calc Performed By: #### L 500.2500 ####[facility] [address] [place], [address] eGFR (non-black) 178 mL/min/{1.73_m2} Normal >60 [facility] Comment on above: Result Comment: Non- GFR Calc Performed By: #### L 500.2500 ####[facility] [address] [place], [address] Estimated CRCL 138.22 ml/min Normal [facility] Comment on above: Performed By: #### L 500.2500 ####[facility] [address] [place], [address] GAP 11 Normal 5-15 [facility] Comment on above: Performed By: #### L 500.2500 ####[facility] [address] [place], [address] Glucose mass conc 120 mg/dL High 70-110 [facility] Comment on above: Result Comment: Fast ing Glucose result from 110 to <126 mg/dLsuggests IMPAIRED HOMEOSTASIS per A.D.A. criteria. Performed By: #### L 500.2500 ####[facility] [address] [place], [address] Potassium molar conc 3.9 mmol/L Normal 3.5-5.1 [facility] Comment on above: Performed By: #### L 500.2500 ####[facility] [address] [place], [address] Sodium 137 mmol/L Normal 136-145 [facility] Comment on above: Performed By: #### L 500.2500 ####[facility] [address] [place], [address] Urea nitrogen 7 mg/dL Normal 7-18 [facility] Comment on above: Performed By: #### L 500.2500 ####[facility] [address] [place], [address] CBC-Complete Blood Cnt No Di ffon 07-10-2017 Erythrocyte distribution width Auto Ratio (RBC) 12.4 % Normal 11.6-14.6 [facility] Comment on above: Performed By: #### L 500.2500 ####[facility] [address] [place], [address] Erythrocytes (RBC) 3.53 M/mm3 Low 4.2-5.4 [facility] Comment on above: Performed By: #### L 500.2500 ####[facility] [address] [place], [address] Hematocrit (HCT) 36.0 % Low 37-47 [facility] Comment on above: Performed By: #### L 500.2500 ####[facility] [address] [place], [address] Hemoglobin mass conc (Bld) 11.6 g/dL Low 12.0-15.0 [facility] Comment on above: Performed By: #### L 500.2500 ####[facility] [address] [place], [address] MCH 32.9 pg High 27.0-32.0 [facility] Comment on above: Performed By: #### L 500.2500 ####[facility] [address] [place], [address] MCHC mass conc (RBC) 32.2 g/gl Normal 32-36 [facility] Comment on above: Performed By: #### L 500.2500 ####[facility] [address] [place], [address] MCV 102.0 fL High 81-99 [facility] Comment on above: Performed By: #### L 500.2500 ####[facility] [address] [place], [address] Platelet mean volume (PMV) 10.0 fL Normal 6.2-12.0 [facility] Comment on above: Performed By: #### L 500.2500 ####[facility] [address] [place], [address] Platelets 291 10*3/uL Normal 150-450 [facility] Comment on above: Performed By: #### L 500.2500 ####[facility] [address] [place], [address] RDW SD 46.2 fl High 35.1-43.9 [facility] Comment on above: Performed By: #### L 500.2500 ####[facility] [address] [place], [address] WBC (Leukocytes) 12.6 10*3/uL High 4.4-11.0 [facility] Comment on above: Performed By: #### L 500.2500 ####[facility] [address] [place], [address] [employer] Decub and/or Erecton 07-09-2017 [employer] Decub and/or Erect [facility] [address] [place] [address] 92221Ehk [employer] Decub and/or ErectMR#: [id number] Acct: [id number]: SUSAN CALDERON Rep #: [id number]: 1955 F 62 From: Mikal Brambila MDPCP: Cee Christianson MD Status: ADM INStudy: [employer] Inc Decub and/or Erect Date of Exam: 07/09/17Exam# [id number] Ordering Dr: Susan June MDSTUDY: X-RAY - [...] fusion in the lowerlumbar spine. ORDER #: [id number] RAD/[employer] Decub and/or ErectIMPRESSION:Mildly dilated small bowel loops in the upper abdomen with air-fluidlevels. This has worsened since prior study.Electronically Signed:Mikal Brambila MD at 15:36 ESTTel [phone], Service support , TW: Susan June MD; Cee Christianson MD Recyclable Materials Collector:Signed Normal [facility] Acute [employer] Chest (Portabl e)on 07-09-2017 Acute [employer] Chest (Portable) [facility] [id number] [place] [address] 12045Ykyjh [employer] Chest (Portable)MR#: [id number] Acct: [id number]: SUSAN CALDERON Rep #: [id number]: 1955 F 62 From: Mikal Brambila MDPCP: Cee Christianson MD Status: ADM INStudy: Acute [employer] Chest (Portable) Date of Exam: 07/09/17Exam# [id number] Ordering Dr: Maycol Tubbs MDSTUDY: X-RAY - [...] disc space narrowing and spondylosis. ORDER #: [id number] RAD/Acute [employer] Chest (Portable)IMPRESSION:Enter ic tube is visualized with the tip in the distal portion of thestomach.Gas pattern is unremarkable.Mild increased markings at the lung bases suggestive of mild basilaratelectasis.Electro nically Signed:Mikal Brambila MD at 9:43 ESTTel [phone], Service support , XY: Maycol Tubbs MD; Cee Christianson MD [employer] Collector:Signed Normal [facility] Basic Metabolic Profile (BMP )on 07-09-2017 BUN (urea nitrogen) 9.9 RATIO Low 10-20 [facility] Comment on above: Performed By: #### L 100.0100 ####[facility] [address] [place], [address] Calcium 8.1 mg/dL Low 8.5-10.1 [facility] Comment on above: Performed By: #### L 100.0100 ####[facility] [address] [place], [address] Chloride 100 mmol/L Normal 98-107 [facility] Comment on above: Performed By: #### L 100.0100 ####[facility] [address] [place], [address] CO2 24.0 mmol/L Normal 21.0-32.0 [facility] Comment on above: Performed By: #### L 100.0100 ####[facility] [address] [place], [address] Creatinine 0.40 mg/dL Low 0.55-1.02 [facility] Comment on above: Result Comment: The validity of the calculated GFR AND GFRAA in patients over70 years has not been determined. Clinical correlation isessential. Performed By: #### L 100.0100 ####[facility] [address] [place], [address] eGFR (non-black) 206 mL/min/{1.73_m2} Normal >60 [facility] Comment on above: Result Comment: Afri can Icelandic GFR Calc Performed By: #### L 100.0100 ####[facility] [address] [place], [address] eGFR (non-black) 170 mL/min/{1.73_m2} Normal >60 [facility] Comment on above: Result Comment: Non- GFR Calc Performed By: #### L 100.0100 ####[facility] [address] [place], [address] Estimated CRCL 134.76 ml/min Normal [facility] Comment on above: Performed By: #### L 100.0100 ####[facility] [address] [place], [address] GAP 8 Normal 5-15 [facility] Comment on above: Performed By: #### L 100.0100 ####[facility] [address] [place], [address] Glucose mass conc 107 mg/dL Normal 70-110 [facility] Comment on above: Performed By: #### L 100.0100 ####[facility] [address] [place], [address] Potassium molar conc 4.1 mmol/L Normal 3.5-5.1 [facility] Comment on above: Performed By: #### L 100.0100 ####[facility] [address] [place], [address] Sodium 132 mmol/L Low 136-145 [facility] Comment on above: Performed By: #### L 100.0100 ####[facility] [address] [place], [address] Urea nitrogen 4 mg/dL Low 7-18 [facility] Comment on above: Performed By: #### L 100.0100 ####[facility] [address] [place], [address] CBC-Complete Blood Cnt No Di ffon 07-09-2017 Erythrocyte distribution width Auto Ratio (RBC) 12.1 % Normal 11.6-14.6 [facility] Comment on above: Performed By: #### L 100.0100 ####[facility] [address] [place], [address] Erythrocytes (RBC) 3.62 M/mm3 Low 4.2-5.4 [facility] Comment on above: Performed By: #### L 100.0100 ####[facility] [address] [place], [address] Hematocrit (HCT) 36.6 % Low 37-47 [facility] Comment on above: Performed By: #### L 100.0100 ####[facility] [address] [place], [address] Hemoglobin mass conc (Bld) 12.0 g/dL Normal 12.0-15.0 [facility] Comment on above: Performed By: #### L 100.0100 ####[facility] [address] [place], [address] MCH 33.1 pg High 27.0-32.0 [facility] Comment on above: Performed By: #### L 100.0100 ####[facility] [address] [place], [address] MCHC mass conc (RBC) 32.8 g/gl Normal 32-36 [facility] Comment on above: Performed By: #### L 100.0100 ####[facility] [address] [place], [address] MCV 101.1 fL High 81-99 [facility] Comment on above: Performed By: #### L 100.0100 ####[facility] [address] [place], [address] Platelet mean volume (PMV) 9.6 fL Normal 6.2-12.0 [facility] Comment on above: Performed By: #### L 100.0100 ####[facility] [address] [place], [address] Platelets 265 10*3/uL Normal 150-450 [facility] Comment on above: Performed By: #### L 100.0100 ####[facility] [address] [place], [address] RDW SD 44.9 fl High 35.1-43.9 [facility] Comment on above: Performed By: #### L 100.0100 ####[facility] [address] [place], [address] WBC (Leukocytes) 16.0 10*3/uL High 4.4-11.0 [facility] Comment on above: Performed By: #### L 100.0100 ####[facility] [address] [place], [address] COLON (NO NEOPLASM)on 2016 COLON (NO NEOPLASM) Patient: JUSTICE CALDERON : 1955 (62/F) Acct Num: [id number] Phys: Mayra Lloyd MD Unit Num: [id number] Loc: MS2 [id number] Specimen: [id number] Received: 07/12/17 - 1309 Spec Type: COLON [...] Also received in the container is a amap-wq-ccow anastomosis of bowel measuring 4 cm in [...] and no lesion is identified in the ilay-fr-enge anastomosis portion ofthe bowel. The mesenteric section of the mesenteric tissue does not reveal any lesion. Special Investigation Unit Investigator sections are submitted in six cassettes as follows: 1 appendix, 2 small bowel with ucvz-nt-stps anastomosis, 3-6 larger segment ofbowel (3 resection margins, 4 ulcerated and hemorrhagic area, central portion, 5 edematous mucosa, terminal portion and 6 mesenteric tissue). / SJ:mitch 07/13/17 TC:5 CPT: 35887, 77502 HEADER OPERATION: Diagnostic laparoscopy converted to open small bowel resection, lysisof adhesions, appendectomy PRE-OP DIAGNOSIS: Small bowel obstruction TISSUE SUBMITTED: Small bowel section and appendix MICROSCOPIC DESCRIPTION Slides are reviewed. MICROSCOPIC DIAGNOSIS Small bowel section and appendix: Larger segment of bowel with extensive ulceration, transmural congestion, hemorrhage, acute inflammation and ischemic changes (central portion), clinically small bowel obstruction. Qxra-ms-btzj anastomosis segment of bowel with serosal, subserosal and underlying muscularis propria with acute inflammation and edema. Appendix, acute periappendicitis. SJ:mitch 07/14/17 Signed Charlie Bess 07/14/17 Normal [facility] Comment on above: Performed By: #### L 500.2500 ####[facility] [address] [place], [address] Consultationon 07-09-2017 Consultation [facility] [address] [place], [place] [address]Qkqrawtfcgdz65/23/17 0852MR#: [id number] Acct: [id number]: SUSAN CALDERON Rep #: [id number]: 1955 62 From: Susan June MDPCP: Cee Christianson MD Status: ADM IN YLocation: MS2 [id number] ConsultDate of Consult: 07/08/17- Reason for ConsultChief [...] no further questions..07/09/17 1652 Date Susan June [facility] Signature (if applicable): Date CC: Susan June MD; Cee Christianson MD Signed Normal [facility] Lactic Acidon 07-09-2017 Lactate 0.8 mmol/L Normal 0.4-2.0 [facility] Comment on above: Order Comment: Yes/N o query for Sepsis Lactate Rule Y Performed By: #### L 100.0100 ####[facility] [address] [facility] [place], [address] Magnesiumon 07-09-2017 Magnesium 2.0 mg/dL Normal 1.8-2.4 [facility] Comment on above: Performed By: #### L 100.0100 ####[facility] [address] [place], [address] Operative Reporton 7 Operative Report [facility] [address] [place], [place] [address]Bolmpqedh Uizdxg51/24/17 1844#: [id number] Acct: [id number]: SUSAN CALDERON Rep #: [id number]: 1955 62 From: Ronnie Reaves MDPCP: Cee Christianson MD Status: ADM IN YLocation: MS2 [id number] of OperationDate of Procedure: 07/09/17Pre-Operative Diagnosis: K 50.812 small bowel obstructionPost-Operative Diagnosis: SameSurgery/Procedure Performed:: Assisted with lysis of adhesionsOR Section Housekeeper: NoneOR Section Housekeeper: Ronnie Reaves is the surgeonType of Anesthesia:: [...] ordered?: NoReason prophylaxis not ordered:: Treatment Not Lnsqxcdaq63/24/17 1853 Date Ronnie Reaves MDCC: Ronnie Reaves MD; Susan June MD; Cee Christianson MD Signed Normal [facility] Abdomen Single Viewon 2016 Abdomen Single View [facility] [facility] [address] [place], [place] [address]Orcndae Single ViewMR#: [id number] Acct: [id number]: SUSAN CALDERON Rep #: [id number]: 1955 F 62 From: Andrei Prather DOPCP: Cee Christianson MD Status: ADM INStudy: Abdomen Single View Date of Exam: 07/08/17Exam# [id number] Ordering Dr: Nanci Casillas LSTUDY: X-RAY - [...] are seen within thelumbar spine. ORDER #: [id number] RAD/Abdomen Single ViewIMPRESSION:Unremarkabl e abdominal bowel gas pattern.Electronically Signed:Andrei Prather, [id number] at 9:51 ESTTel , Service support , BM: Nanci Casillas; Cee Christianson MD Recyclable Materials Collector:Signed Normal [facility] Abdomen Single View (Portabl e)on 07-08-2017 Abdomen Single View (Portable) [facility] [address] [place], [place] [address]Rmaznmt Single View (Portable)MR#: [id number] Acct: [id number]: SUSAN CALDERON Lance Rep #: [id number]: 1955 F 62 From: Deanna Beltran MDPCP: Cee Christianson MD Status: ADM INStudy: Abdomen Single View (Portable) Date of Exam: 07/07/17Exam# [id number] Ordering Dr: Deanna Adhikari MDSTUDY: X-RAY - [...] in the lower lumbar spine. ORDER #: [id number] RAD/Abdomen Single View (Portable)IMPRESSION:The tip of the nasogastric tube is in the expected location of the body ofthe stomach.Electronically Signed:Deanna Beltran MD at 23:55 ESTTel Direct: [phone], Service support , QH: Deanna Adhikari MD; Cee Christianson MD [employer]ycl[employer] Collector:Signed Normal [facility] Basic Metabolic Profile (BMP )on 07-08-2017 BUN (urea nitrogen) 12.7 RATIO Normal 10-20 [facility] Comment on above: Performed By: #### L 500.2500 ####[facility] [address] [place], [address] Calcium 7.9 mg/dL Low 8.5-10.1 [facility] Comment on above: Performed By: #### L 500.2500 ####[facility] [address] [place], [address] Chloride 96 mmol/L Low 98-107 [facility] Comment on above: Performed By: #### L 500.2500 ####[facility] [address] [place], [address] CO2 24.0 mmol/L Normal 21.0-32.0 [facility] Comment on above: Performed By: #### L 500.2500 ####[facility] [address] [place], [address] Creatinine 0.40 mg/dL Low 0.55-1.02 [facility] Comment on above: Result Comment: The validity of the calculated GFR AND GFRAA in patients over70 years has not been determined. Clinical correlation isessential. Performed By: #### L 500.2500 ####[facility] [address] [place], [address] eGFR (non-black) 174 mL/min/{1.73_m2} Normal >60 [facility] Comment on above: Result Comment: Non- GFR Calc Performed By: #### L 500.2500 ####[facility] [address] [place], [address] eGFR (non-black) 210 mL/min/{1.73_m2} Normal >60 [facility] Comment on above: Result Comment: Afri can Icelandic GFR Calc Performed By: #### L 500.2500 ####[facility] [address] [place], [address] Estimated CRCL 134.76 ml/min Normal [facility] Comment on above: Performed By: #### L 500.2500 ####[facility] [address] [place], [address] GAP 9 Normal 5-15 [facility] Comment on above: Performed By: #### L 500.2500 ####[facility] [address] [place], [address] Glucose mass conc 113 mg/dL High 70-110 [facility] Comment on above: Result Comment: Fast ing Glucose result from 110 to <126 mg/dLsuggests IMPAIRED HOMEOSTASIS per A.D.A. criteria. Performed By: #### L 500.2500 ####[facility] [address] [place], [address] Potassium molar conc 4.0 mmol/L Normal 3.5-5.1 [facility] Comment on above: Performed By: #### L 500.2500 ####[facility] [address] [place], [address] Sodium 129 mmol/L Low 136-145 [facility] Comment on above: Performed By: #### L 500.2500 ####[facility] [address] [place], [address] Urea nitrogen 5 mg/dL Low 7-18 [facility] Comment on above: Performed By: #### L 500.2500 ####[facility] [address] [place], [address] CBC W/Diff, Automatedon - Absolute Neut 9.8 X10 3/uL High 2.0-7.7 [facility] Comment on above: Performed By: #### L 100.0100 ####[facility] [address] [place], [address] Basophils/100 WBC Auto (Bld) 0.1 % Normal 0-1 [facility] Comment on above: Performed By: #### L 100.0100 ####[facility] [address] [place], [address] Eosinophils/100 leukocytes 0.4 % Normal 0-5 [facility] Comment on above: Performed By: #### L 100.0100 ####[facility] [address] [place], [address] Erythrocyte distribution width Auto Ratio (RBC) 11.7 % Normal 11.6-14.6 [facility] Comment on above: Performed By: #### L 100.0100 ####[facility] [address] [place], [address] Erythrocytes (RBC) 3.81 M/mm3 Low 4.2-5.4 [facility] Comment on above: Performed By: #### L 100.0100 ####[facility] [address] [place], [address] Hematocrit (HCT) 37.5 % Normal 37-47 [facility] Comment on above: Performed By: #### L 100.0100 ####[facility] [address] [place], [address] Hemoglobin mass conc (Bld) 12.6 g/dL Normal 12.0-15.0 [facility] Comment on above: Performed By: #### L 100.0100 ####[facility] [address] [place], [address] IM GRAN % 0.100 % Normal 0.0-0.9 [facility] Comment on above: Result Comment: IG% - Immature Granulocytes (promyelocytes, myelocytes andmetamyelocytes) > 1% indicates that a LEFT SHIFT is Present. Performed By: #### L 100.0100 ####[facility] [address] [place], [address] Lymphocytes 1.38 X10 3/ul Normal 0.83-4.51 [facility] Comment on above: Performed By: #### L 100.0100 ####[facility] [address] [place], [address] Lymphocytes/100 leukocytes 11.8 % Low 19-41 [facility] Comment on above: Performed By: #### L 100.0100 ####[facility] [address] [place], [address] MCH 33.1 pg High 27.0-32.0 [facility] Comment on above: Performed By: #### L 100.0100 ####[facility] [address] [place], [address] MCHC mass conc (RBC) 33.6 g/gl Normal 32-36 [facility] Comment on above: Performed By: #### L 100.0100 ####[facility] [address] [place], [address] MCV 98.4 fL Normal 81-99 [facility] Comment on above: Performed By: #### L 100.0100 ####[facility] [address] [place], [address] Monocytes/100 leukocytes 4.2 % Normal 0-10 [facility] Comment on above: Performed By: #### L 100.0100 ####[facility] [address] [place], [address] Neutrophils/100 WBC Auto (Bld) 83.4 % High 47-70 [facility] Comment on above: Performed By: #### L 100.0100 ####[facility] [address] [place], [address] Platelet mean volume (PMV) 9.5 fL Normal 6.2-12.0 [facility] Comment on above: Performed By: #### L 100.0100 ####[facility] [address] [place], [address] Platelets 273 10*3/uL Normal 150-450 [facility] Comment on above: Performed By: #### L 100.0100 ####[facility] [address] [place], [address] RDW SD 42.0 fl Normal 35.1-43.9 [facility] Comment on above: Performed By: #### L 100.0100 ####[facility] [address] [place], [address] WBC (Leukocytes) 11.7 10*3/uL High 4.4-11.0 [facility] Comment on above: Performed By: #### L 100.0100 ####[facility] [address] [place], [address] Emergency Department Summary on 07-08-2017 Emergency Department Summary [facility] [address] [place] [place] [address]Iecbtrkut Department Argvchm63/22/17 2301MR#: [id number] Acct: [id number]: SUSAN CALDERON Rep #: [id number]: 1955 62 From: [facility] Adh[facility]ari [facility] Cee Christianson MD Status: ADM IN- ER [...] 202/89, temperature 97.8, heart rate 62, respiratory wjbi47Ntea neck examination is unremarkable.Heart is regular rate [...] Hyponatremia3. Urinary retentionThis note was generated with Lánzanos dictation software. It may contain incorrect words,spelling, [...] your Primary Care Provider. Call [facility] ([phone])or report to the closest Emergency Room.Call 911 if necessary.07/07/17 5167 Date Deanna Adhikari [facility] [place] (If Indicated): Date CC: Cee Christianson MD Normal [facility] Hemoglobin A1con 07-08-2017 Hemoglobin A1c/Hemoglobin.total mass fraction (Bld) 4.8 % Normal 4.2-6.3 [facility] Comment on above: Order Comment: ADDED TO BLOOD DRAWN IN ER Performed By: #### L 501.9985 ####[facility] [address] [place], [address] History and Physical Examon 07-08-2017 History and Physical Exam [facility] [address] [place] [address]Uibbedz and Vbhrjhqa71/22/17 2311#: [id number] Acct: [id number]: SUSAN CALDERON Rep #: [id number]: 1955 62 From: Nanci MartinezP: Cee Christianson MD Status: ADM IN YLocation: MS2 [id number] List(1) HTN (hypertension)Status: ChronicQualifiers:Hyperten mason type: essential [...] Allergic Rhinitis,Tobacco use who presents to the [facility] ED on 07/07/17 w/ history of mild difficulty urinating withno dysuria but decreased UOP 1 week prior w/ decreased oral intake and onset over the wjyf04-08 hours generalized abdominal discomfort w/ nausea with [...] No pertinent psych hxGYN History: No pertinent ROAD MANAGER historyLives: Spouse/ Significant OtherSmoking Status: Current every [...] Allergic Rhinitis,Tobacco use who presents to the [facility] ED on 07/07/17 w/ history of mild difficulty urinating withno dysuria but decreased UOP 1 week prior w/ decreased oral intake and onset over the ddaz09-52 hours generalized abdominal discomfort w/ nausea with [...] Nanci Casillas; Cee Christianson MD Signed Normal [facility] Abdomen/Pelvis WITH Contrast on 07-07-2017 Abdomen/Pelvis WITH Contrast [facility] [address] [place], [place] [address]Xoatmjn/Pelvis WITH ContrastMR#: [id number] Acct: [id number]: YOHANACECILIASUSAN A Rep #: [id number]: 1955 F 62 From: Deanna Beltran MDPCP: Myesha RUELAS,Cee Status: REG ERStudy: Abdomen/Pelvis WITH Contrast Date of Exam: 07/07/17Exam# [id number] Ordering Dr: Deanna Adhikari MDSTUDY: CT ABDOMEN [...] in the lower lumbar spine. ORDER #: [id number] CT/Abdomen/Pelvis WITH ContrastIMPRESSION:The fluid-filled tubular structures in [...] Signed:Deanna Beltran MD at 22:30 ESTTel Direct: [phone], Service support , SH: Deanna Adhikari MD; Cee Christianson MD Recyclable Materials Collector:Signed Normal [facility] Abdomen/Pelvis without Conto n 07-07-2017 Abdomen/Pelvis without Cont [facility] [address] [place], [place] [address]Dbocwto/Pelvis without ContMR#: [id number] Acct: [id number]: SUSAN CALDERON Rep #: [id number]: 1955 F 62 From: Deanna Beltran MDPCP: Cee Christianson MD Status: REG ERStudy: Abdomen/Pelvis without Cont Date of Exam: 07/07/17Exam# [id number] Ordering Dr: Deanna Adhikari MDSTUDY: CT ABDOMEN [...] retrolisthesis of L3 on L4. ORDER #: [id number] CT/Abdomen/Pelvis without ContIMPRESSION:There is an elongated tubular structure in the right pelvis which can beseen with a hydrosalpinx. Differentiation from bowel is difficult withoutintravenous or oral contrast. Options for follow-up include a CT withintravenous and oral contrast or a pelvic ultrasound.There is minimal ascites in the pelvis.There is mild diverticulosis of the colon.Electronically Signed:Deanna Beltran MD at 17:33 ESTTel Direct: [phone], Service support , HO: Deanna Adhikari MD; Cee Christianson MD Rec[employer]able [employer] Collector:Signed Normal [facility] Basic Metabolic Profile (BMP )on 07-07-2017 BUN (urea nitrogen) 18.0 RATIO Normal 10- [facility] Comment on above: Performed By: #### L 500.2500 ####[facility] [address] [place], [address] Calcium 9.0 mg/dL Normal 8.5-10.1 [facility] Comment on above: Performed By: #### L 500.2500 ####[facility] [address] [place], [address] Chloride 94 mmol/L Low 98-107 [facility] Comment on above: Performed By: #### L 500.2500 ####[facility] [address] [place], [address] CO2 22.0 mmol/L Normal 21.0-32.0 [facility] Comment on above: Performed By: #### L 500.2500 ####[facility] [address] [place], [address] Creatinine 0.56 mg/dL Normal 0.55-1.02 [facility] Comment on above: Result Comment: The validity of the calculated GFR AND GFRAA in patients over70 years has not been determined. Clinical correlation isessential. Performed By: #### L 500.2500 ####[facility] [address] [place], [address] eGFR (non-black) 142 mL/min/{1.73_m2} Normal >60 [facility] Comment on above: Result Comment: Afri can Icelandic GFR Calc Performed By: #### L 500.2500 ####[facility] [address] [place], [address] eGFR (non-black) 117 mL/min/{1.73_m2} Normal >60 [facility] Comment on above: Result Comment: Non- GFR Calc Performed By: #### L 500.2500 ####[facility] [address] [place], [address] Estimated CRCL 96.26 ml/min Normal [facility] Comment on above: Performed By: #### L 500.2500 ####[facility] [address] [place], [address] GAP 13 Normal 5-15 [facility] Comment on above: Performed By: #### L 500.2500 ####[facility] [address] [place], [address] Glucose mass conc 117 mg/dL High 70-110 [facility] Comment on above: Result Comment: Fast ing Glucose result from 110 to <126 mg/dLsuggests IMPAIRED HOMEOSTASIS per A.D.A. criteria. Performed By: #### L 500.2500 ####[facility] [address] [place], [address] Potassium molar conc 3.6 mmol/L Normal 3.5-5.1 [facility] Comment on above: Performed By: #### L 500.2500 ####[facility] [address] [place], [address] Sodium 129 mmol/L Low 136-145 [facility] Comment on above: Performed By: #### L 500.2500 ####[facility] [address] [place], [address] Urea nitrogen 10 mg/dL Normal 7-18 [facility] Comment on above: Performed By: #### L 500.2500 ####[facility] [address] [place], [address] CBC W/Diff, Automatedon 11-2 -2016 Absolute Neut 6.0 X10 3/uL Normal 2.0-7.7 [facility] Comment on above: Performed By: #### L 100.0100 ####[facility] [address] [place], [address] Basophils/100 WBC Auto (Bld) 0.4 % Normal 0-1 [facility] Comment on above: Performed By: #### L 100.0100 ####[facility] [address] [place], [address] Eosinophils/100 leukocytes 1.4 % Normal 0-5 [facility] Comment on above: Performed By: #### L 100.0100 ####[facility] [address] [place], [address] Erythrocyte distribution width Auto Ratio (RBC) 11.7 % Normal 11.6-14.6 [facility] Comment on above: Performed By: #### L 100.0100 ####[facility] [address] [place], [address] Erythrocytes (RBC) 4.07 M/mm3 Low 4.2-5.4 [facility] Comment on above: Performed By: #### L 100.0100 ####[facility] [address] [place], [address] Hematocrit (HCT) 39.6 % Normal 37-47 [facility] Comment on above: Performed By: #### L 100.0100 ####[facility] [address] [place], [address] Hemoglobin mass conc (Bld) 13.5 g/dL Normal 12.0-15.0 [facility] Comment on above: Performed By: #### L 100.0100 ####[facility] [address] [place], [address] IM GRAN % 0.200 % Normal 0.0-0.9 [facility] Comment on above: Result Comment: IG% - Immature Granulocytes (promyelocytes, myelocytes andmetamyelocytes) > 1% indicates that a LEFT SHIFT is Present. Performed By: #### L 100.0100 ####[facility] [address] [place], [address] Lymphocytes 4.01 X10 3/ul Normal 0.83-4.51 [facility] Comment on above: Performed By: #### L 100.0100 ####[facility] [address] [place], [address] Lymphocytes/100 leukocytes 36.9 % Normal 19-41 [facility] Comment on above: Performed By: #### L 100.0100 ####[facility] [address] [place], [address] MCH 33.2 pg High 27.0-32.0 [facility] Comment on above: Performed By: #### L 100.0100 ####[facility] [address] [place], [address] MCHC mass conc (RBC) 34.1 g/gl Normal 32-36 [facility] Comment on above: Performed By: #### L 100.0100 ####[facility] [address] [place], [address] MCV 97.3 fL Normal 81-99 [facility] Comment on above: Performed By: #### L 100.0100 ####[facility] [address] [place], [address] Monocytes/100 leukocytes 6.0 % Normal 0-10 [facility] Comment on above: Performed By: #### L 100.0100 ####[facility] [address] [place], [address] Neutrophils/100 WBC Auto (Bld) 55.1 % Normal 47-70 [facility] Comment on above: Performed By: #### L 100.0100 ####[facility] [address] [place], [address] Platelet mean volume (PMV) 9.7 fL Normal 6.2-12.0 [facility] Comment on above: Performed By: #### L 100.0100 ####[facility] [address] [place], [address] Platelets 320 10*3/uL Normal 150-450 [facility] Comment on above: Performed By: #### L 100.0100 ####[facility] [address] [place], [address] RDW SD 42.0 fl Normal 35.1-43.9 [facility] Comment on above: Performed By: #### L 100.0100 ####[facility] [address] [place], [address] WBC (Leukocytes) 10.9 10*3/uL Normal 4.4-11.0 [facility] Comment on above: Performed By: #### L 100.0100 ####[facility] [address] [place], [address] Urinalysis, Completeon 07-07 MUCUS, URINE 0 SEEN Normal [facility] Comment on above: Order Comment: Order Date: 07/07/17How was Urine Obtained? LOCAL COORDINATOR TO SPECIFY Performed By: #### L 400.0001 ####[facility] [address] [place], [address] SQUAM EPI 0 SEEN Normal 5-10 [facility] Comment on above: Order Comment: Order Date: 07/07/17How was Urine Obtained? LOCAL COORDINATOR TO SPECIFY Performed By: #### L 400.0001 ####[facility] [address] [place], [address] Urine, bacteria in sediment 0 SEEN Normal None Seen [facility] Comment on above: Order Comment: Order Date: 07/07/17How was Urine Obtained? LOCAL COORDINATOR TO SPECIFY Performed By: #### L 400.0001 ####[facility] [address] [place], [address] Urine, erythrocytes 0-5 SEEN Normal 0-5 [facility] Comment on above: Order Comment: Order Date: 07/07/17How was Urine Obtained? LOCAL COORDINATOR TO SPECIFY Performed By: #### L 400.0001 ####[facility] [address] [place], [address] WBC (Leukocytes) 0 SEEN Normal 0-5 [facility] Comment on above: Order Comment: Order Date: 07/07/17How was Urine Obtained? LOCAL COORDINATOR TO SPECIFY Performed By: #### L 400.0001 ####[facility] [address] [place], [address] BILIRUBIN URINE Negative Normal Negative [facility] Comment on above: Order Comment: Order Date: 07/07/17How was Urine Obtained? LOCAL COORDINATOR TO SPECIFY Performed By: #### L 400.0001 ####[facility] [address] [place], [address] Glucose mass conc Normal Normal Normal [facility] Comment on above: Order Comment: Order Date: 07/07/17How was Urine Obtained? LOCAL COORDINATOR TO SPECIFY Performed By: #### L 400.0001 ####[facility] [address] [place], [address] KETONE UR Negative Normal Negative [facility] Comment on above: Order Comment: Order Date: 07/07/17How was Urine Obtained? LOCAL COORDINATOR TO SPECIFY Performed By: #### L 400.0001 ####[facility] [address] [place], [address] LEUK ESTERASE 25 /ul High Negative [facility] Comment on above: Order Comment: Order Date: 07/07/17How was Urine Obtained? LOCAL COORDINATOR TO SPECIFY Performed By: #### L 400.0001 ####[facility] [address] [place], [address] NITRITE UR Negative Normal Negative [facility] Comment on above: Order Comment: Order Date: 07/07/17How was Urine Obtained? LOCAL COORDINATOR TO SPECIFY Performed By: #### L 400.0001 ####[facility] [address] [place], [address] OCCULT BLOOD-UR Negative Normal Negative [facility] Comment on above: Order Comment: Order Date: 07/07/17How was Urine Obtained? LOCAL COORDINATOR TO SPECIFY Performed By: #### L 400.0001 ####[facility] [address] [place], [address] pH UR 6.0 Normal 5.0 - 8.0 [facility] Comment on above: Order Comment: Order Date: 07/07/17How was Urine Obtained? LOCAL COORDINATOR TO SPECIFY Performed By: #### L 400.0001 ####[facility] [address] [place], [address] PROT DIPSTX Negative Normal Negative [facility] Comment on above: Order Comment: Order Date: 07/07/17How was Urine Obtained? LOCAL COORDINATOR TO SPECIFY Performed By: #### L 400.0001 ####[facility] [address] [place], [address] SP.GR. DIPSTX 1.010 Normal 1.002-1.030 [facility] Comment on above: Order Comment: Order Date: 07/07/17How was Urine Obtained? LOCAL COORDINATOR TO SPECIFY Performed By: #### L 400.0001 ####[facility] [address] [place], [address] Urine, clarity Clear Normal Clear [facility] Comment on above: Order Comment: Order Date: 07/07/17How was Urine Obtained? LOCAL COORDINATOR TO SPECIFY Performed By: #### L 400.0001 ####[facility] [address] [place], [address] Urine, color Yellow Normal Yellow [facility] Comment on above: Order Comment: Order Date: 07/07/17How was Urine Obtained? LOCAL COORDINATOR TO SPECIFY Performed By: #### L 400.0001 ####[facility] [address] [place], [address] UROBILI Normal Normal Normal [facility] Comment on above: Order Comment: Order Date: 07/07/17How was Urine Obtained? LOCAL COORDINATOR TO SPECIFY Performed By: #### L 400.0001 ####[facility] [address] [place], [address] Vital Signs Date Time Vital Sign Value Performing Clinician Carmella torres 01-02-2025 11:13-0400 Diastolic blood pressure 84 mm[Hg] Prince Lorenzo MD Work Phone: [facility] 01-02-2025 11:13-0400 Heart rate 60 /min Prince Lorenzo MD Work Phone: [facility] 01-02-2025 11:13-0400 Systolic blood pressure 142 mm[Hg] Prince Lorenzo MD Work Phone: [facility] 01-02-2025 10:37-0400 Body height 160 cm Prince Lorenzo MD Work Phone: [facility] 01-02-2025 10:37-0400 Body mass index (BMI) [Ratio] 35.57 kg/m2 Prince Lorenzo MD Work Phone: [facility] 01-02-2025 10:37-0400 Body weight 91.08 kg Prince Lorenzo MD Work Phone: [facility] 11-29-2024 10:50-0400 Body height 161.9 cm Ruma Westfall MD Work Phone: [facility] 11-29-2024 10:50-0400 Body mass index (BMI) [Ratio] 36.57 kg/m2 Ruma Westfall MD Work Phone: [facility] 11-29-2024 10:50-0400 Body weight 95.89 kg Ruma Westfall MD Work Phone: [facility] 11-29-2024 10:50-0400 Diastolic blood pressure 76 mm[Hg] Ruma Westfall MD Work Phone: [facility] 11-29-2024 10:50-0400 Heart rate 79 /min Ruma Westfall MD Work Phone: [facility] 11-29-2024 10:50-0400 SaO2% (BldA) [Mass fraction] 100 % Ruma Westfall MD Work Phone: [facility] 11-29-2024 10:50-0400 Systolic blood pressure 138 mm[Hg] Ruma Westfall MD Work Phone: [facility] 10-05-2024 09:46-0500 Body height 162 cm Ruma Westfall MD Work Phone: [facility] 10-05-2024 09:46-0500 Body mass index (BMI) [Ratio] 37.47 kg/m2 Ruma Westfall MD Work Phone: [facility] 10-05-2024 09:46-0500 Body weight 98.34 kg Ruma Westfall MD Work Phone: [facility] 10-05-2024 09:46-0500 Diastolic blood pressure 76 mm[Hg] Ruma Westfall MD Work Phone: [facility] 10-05-2024 09:46-0500 Heart rate 65 /min Ruma Westfall MD Work Phone: [facility] 10-05-2024 09:46-0500 SaO2% (BldA) [Mass fraction] 97 % Ruma Westfall MD Work Phone: [facility] 10-05-2024 09:46-0500 Systolic blood pressure 138 mm[Hg] Ruma Westfall MD Work Phone: [facility] 09-25-2024 13:05-0500 Body height 160 cm Cee Christianson MD Work Phone: [facility] 09-25-2024 13:05-0500 Body mass index (BMI) [Ratio] 38.66 kg/m2 Cee Christianson MD Work Phone: [facility] 09-25-2024 13:05-0500 Body weight 99 kg Cee Christianson MD Work Phone: [facility] 09-25-2024 13:05-0500 Diastolic blood pressure 81 mm[Hg] Cee Christianson MD Work Phone: [facility] 09-25-2024 13:05-0500 Heart rate 67 /min Cee Christianson MD Work Phone: [facility] 09-25-2024 13:05-0500 Respiratory rate 16 /min Cee Christianson MD Work Phone: [facility] 09-25-2024 13:05-0500 Systolic blood pressure 136 mm[Hg] Cee Christianson MD Work Phone: [facility] 09-21-2024 16:32-0500 Body mass index (BMI) [Ratio] 35.23 kg/m2 Pradeep Blanton MD Work Phone: [facility] 09-21-2024 16:32-0500 Body temperature 99.19 [degF] Pradeep Blanton MD Work Phone: [facility] 09-21-2024 16:32-0500 Body weight 100.5 kg Pradeep Blanton MD Work Phone: [facility] 09-21-2024 16:32-0500 Diastolic blood pressure 82 mm[Hg] Pradeep Blanton MD Work Phone: [facility] 09-21-2024 16:32-0500 Heart rate 80 /min Pradeep Blanton MD Work Phone: [facility] 09-21-2024 16:32-0500 Respiratory rate 16 /min Pradeep Blanton MD Work Phone: [facility] 09-21-2024 16:32-0500 Systolic blood pressure 136 mm[Hg] Pradeep Blanton MD Work Phone: [facility] 09-11-2024 09:39-0500 Body mass index (BMI) [Ratio] 34.66 kg/m2 Krislyn Aberegg PA Work Phone: [facility] 09-11-2024 09:39-0500 Body temperature 98.2 [degF] Krislyn Aberegg PA Work Phone: [facility] 09-11-2024 09:39-0500 Body weight 98.9 kg Krislyn Aberegg PA Work Phone: [facility] 09-11-2024 09:39-0500 Diastolic blood pressure 80 mm[Hg] Krislyn Aberegg PA Work Phone: [facility] 09-11-2024 09:39-0500 Heart rate 75 /min Krislyn Aberegg PA Work Phone: [facility] 09-11-2024 09:39-0500 Respiratory rate 21 /min Krislyn Aberegg PA Work Phone: [facility] 09-11-2024 09:39-0500 SaO2% (BldA) [Mass fraction] 96 % Krislyn Aberegg PA Work Phone: [facility] 09-11-2024 09:39-0500 Systolic blood pressure 128 mm[Hg] Krislyn Aberegg PA Work Phone: [facility] 05-24-2024 11:16-0400 Diastolic blood pressure 86 mm[Hg] Matias Finelli DO Work Phone: [facility] 05-24-2024 11:16-0400 Heart rate 60 /min Matias Finelli DO Work Phone: [facility] 05-24-2024 11:16-0400 SaO2% (BldA) [Mass fraction] 98 % Matias Finelli DO Work Phone: [facility] 05-24-2024 11:16-0400 Systolic blood pressure 188 mm[Hg] Matias Finelli DO Work Phone: [facility] 05-24-2024 10:14-0400 Respiratory rate 16 /min Matias Finelli DO Work Phone: [facility] 05-24-2024 09:55-0400 Body mass index (BMI) [Ratio] 37.68 kg/m2 Matias Finelli DO Work Phone: [facility] 05-24-2024 09:55-0400 Body temperature 98.49 [degF] Matias Finelli DO Work Phone: [facility] 05-24-2024 09:55-0400 Body weight 107.5 kg Matias Finelli DO Work Phone: [facility] 02-21-2024 08:34-0400 Body height 168.9 cm Cee Christianson MD Work Phone: [facility] 02-21-2024 08:34-0400 Body mass index (BMI) [Ratio] 37.68 kg/m2 Cee Christianson MD Work Phone: [facility] 02-21-2024 08:34-0400 Body temperature 97.39 [degF] Cee Christianson MD Work Phone: [facility] 02-21-2024 08:34-0400 Body weight 107.5 kg Cee Christianson MD Work Phone: [facility] 02-21-2024 08:34-0400 Diastolic blood pressure 62 mm[Hg] Cee Christianson MD Work Phone: [facility] 02-21-2024 08:34-0400 Heart rate 67 /min Cee Christianson MD Work Phone: [facility] 02-21-2024 08:34-0400 Respiratory rate 16 /min Cee Christianson MD Work Phone: [facility] 02-21-2024 08:34-0400 SaO2% (BldA) [Mass fraction] 96 % Cee Christianson MD Work Phone: [facility] 02-21-2024 08:34-0400 Systolic blood pressure 130 mm[Hg] Cee Christianson MD Work Phone: [facility] 12-14-2023 09:10-0400 Diastolic blood pressure 72 mm[Hg] Thuy Stewart 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.POLICE RECORDS CLERK Work Phone: [facility] 12-14-2023 09:10-0400 Systolic blood pressure 144 mm[Hg] Thuy Sunitha 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.POLICE RECORDS CLERK Work Phone: [facility] 12-14-2023 09:08-0400 Body mass index (BMI) [Ratio] 39.27 kg/m2 Thuy Jeffersonr 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.POLICE RECORDS CLERK Work Phone: [facility] 12-14-2023 09:08-0400 Body weight 112.04 kg Thuy Jeffersonr 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.POLICE RECORDS CLERK Work Phone: [facility] 12-14-2023 09:08-0400 Heart rate 66 /min Thuy Jeffersonr 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.POLICE RECORDS CLERK Work Phone: [facility] 12-14-2023 09:08-0400 SaO2% (BldA) [Mass fraction] 99 % Thuy Jeffersonr 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.POLICE RECORDS CLERK Work Phone: [facility] 09-14-2023 13:21-0500 Body height 168.9 cm Cee Christianson MD Work Phone: [facility] 09-14-2023 13:21-0500 Body weight 106.14 kg Cee Christianson MD Work Phone: [facility] 09-14-2023 13:21-0500 Diastolic blood pressure 80 mm[Hg] Cee Christianson MD Work Phone: [facility] 09-14-2023 13:21-0500 Heart rate 64 /min Cee Christianson MD Work Phone: [facility] 09-14-2023 13:21-0500 Respiratory rate 16 /min Cee Christianson MD Work Phone: [facility] 09-14-2023 13:21-0500 Systolic blood pressure 130 mm[Hg] Cee Christianson MD Work Phone: [facility] 02-19-2023 10:08-0400 Body temperature 96.8 [degF] Cee Christianson MD Work Phone: [facility] 02-19-2023 10:08-0400 Body weight 96.62 kg Cee Christianson MD Work Phone: [facility] 02-19-2023 10:08-0400 Diastolic blood pressure 72 mm[Hg] Cee Christianson MD Work Phone: [facility] 02-19-2023 10:08-0400 Heart rate 68 /min Cee Christianson MD Work Phone: [facility] 02-19-2023 10:08-0400 Respiratory rate 18 /min Cee Christianson MD Work Phone: [facility] 02-19-2023 10:08-0400 SaO2% (BldA) [Mass fraction] 96 % Cee Christianson MD Work Phone: [facility] 02-19-2023 10:08-0400 Systolic blood pressure 138 mm[Hg] Cee Christianson MD Work Phone: [facility] 12-18-2022 10:47-0400 Diastolic blood pressure 80 mm[Hg] Thuy Sunitha 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.POLICE RECORDS CLERK Work Phone: [facility] 12-18-2022 10:47-0400 Systolic blood pressure 160 mm[Hg] Thuy Sunitha 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.POLICE RECORDS CLERK Work Phone: [facility] 12-18-2022 10:45-0400 Body weight 97.98 kg Thuy Sunitha 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.POLICE RECORDS CLERK Work Phone: [facility] 12-18-2022 10:45-0400 Heart rate 68 /min Thuy Sunitha 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.POLICE RECORDS CLERK Work Phone: [facility] 12-18-2022 10:45-0400 SaO2% (BldA) [Mass fraction] 98 % Thuy Sunitha 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.POLICE RECORDS CLERK Work Phone: [facility] 06-23-2022 14:23-0500 Diastolic blood pressure 92 mm[Hg] Zakia Sneed 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.STUMP BLOWER Work Phone: [facility] 06-23-2022 14:23-0500 Heart rate 67 /min Zakia Sneed 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.STUMP BLOWER Work Phone: [facility] 06-23-2022 14:23-0500 Systolic blood pressure 157 mm[Hg] Zakia Sneed 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.STUMP BLOWER Work Phone: [facility] 06-23-2022 14:12-0500 Body weight 85.28 kg Zakia Sagastumes 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.STUMP BLOWER Work Phone: [facility] 06-23-2022 14:12-0500 Respiratory rate 16 /min Zakia Sneed 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.STUMP BLOWER Work Phone: [facility] 12-19-2021 13:55-0400 Body weight 84.37 kg Cee Christianson MD Work Phone: [facility] 12-19-2021 13:55-0400 Diastolic blood pressure 68 mm[Hg] Cee Christianson MD Work Phone: [facility] 12-19-2021 13:55-0400 Heart rate 76 /min Cee Christianson MD Work Phone: [facility] 12-19-2021 13:55-0400 Respiratory rate 16 /min Cee Christianson MD Work Phone: [facility] 12-19-2021 13:55-0400 Systolic blood pressure 140 mm[Hg] Cee Christianson MD Work Phone: [facility] Encounters Encounter Date Encounter Type Care Provider Facility Start: 02-12-2025 End: 02-12-2025 ambulatory Smith Caro PT Work Phone: [facility] Comment on above: Gait instability (Pr imary Dx) Start: 02-08-2025 End: 02-08-2025 ambulatory Smith Caro PT Work Phone: [facility] Comment on above: Gait instability (Pr imary Dx) Start: 02-05-2025 End: 02-05-2025 ambulatory Smith Caro PT Work Phone: [facility] Comment on above: Gait instability (Pr imary Dx) Start: 01-25-2025 End: 01-25-2025 ambulatory Smith Caro PT Work Phone: [facility] Comment on above: Gait instability (Pr imary Dx) Start: 01-16-2025 End: 01-16-2025 ambulatory Cee Christianson MD Work Phone: [facility] [place] Start: 01-16-2025 End: 01-16-2025 Patient encounter procedure Cee Christianson MD Work Phone: [facility] [place] Comment on above: Population Health Na vigation Outreach (Johanna Marie [place] ) Start: 01-10-2025 End: 01-10-2025 ambulatory Christin Walsh BOX SEALING INSPECTOR [facility] Comment on above: Gait instability (Pr imary Dx) Start: 01-09-2025 End: 01-09-2025 Telephone encounter Araseli Lagos RN [facility] Start: 01-04-2025 End: 01-04-2025 ambulatory [facility] Facility:[facility] Start: 01-02-2025 End: 01-02-2025 ambulatory PRINCE LORENZO [facility] Start: 01-02-2025 End: 01-02-2025 Office outpatient new 45 minutes Prince Lorenzo MD Work Phone: [facility] Comment on above: Lumbar stenosis with neurogenic claudication (Primary Dx); Closed wedge compression fracture of T11 vertebra, initial encounter (HCC); Arachnoiditis Start: 12-30-2024 ambulatory CEE CHRISTIANSON Facilit y:[facility] Start: 12-30-2024 End: 12-30-2024 Subsequent hospital visit by physician [facility] (1.5t[facility] Comment on above: 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] Start: 12-27-2024 End: 01-01-2025 Telephone encounter Cee Christianson MD Work Phone: Internal Medicine [place] Comment on above: xrays on disc Start: 12-25-2024 End: 12-29-2024 Telephone encounter Cee Christianson MD Work Phone: [facility] [place] Comment on above: Orders Start: 11-30-2024 End: 11-30-2024 ambulatory Danny Tucker PT Work Phone: [facility] Comment on above: Gait instability (Pr imary Dx) Start: 11-29-2024 End: 11-29-2024 Office consultation new/estab patient 60 min Ruma Westfall MD Work Phone: Geriatrics Comment on above: Alzheimer's disease (HCC) (Primary Dx); History of traumatic brain injury Start: 11-29-2024 End: 11-29-2024 ambulatory CEE CHRISTIANSON Facility:[facility] Start: 11-16-2024 End: 01-16-2025 Follow-up encounter Zakia Sneed APRN.STUMP BLOWER Work Phone: Internal Medicine [place] Start: 11-12-2024 End: 01-12-2025 Follow-up encounter Ruma Westfall MD Work Phone: [facility] [place] Start: 11-10-2024 End: 11-10-2024 Refill Cee Christianson MD Work Phone: Internal Medicine [place] Comment on above: Refill Request Start: 11-07-2024 ambulatory RUMA WESTFALL Facility:1 [id number] Start: 11-07-2024 End: 11-07-2024 Subsequent hospital visit by physician [facility] Work Phone: [facility] Comment on above: Cognitive impairment , mild, so stated [G31.84] Start: 11-01-2024 End: 11-01-2024 ambulatory Danny Tucker PT Work Phone: [facility] Comment on above: Gait instability (Pr imary Dx) Start: 10-27-2024 End: 10-30-2024 Refill Ruma Westfall MD Work Phone: Geriatrics Comment on above: Med Change Request Start: 10-16-2024 End: 10-17-2024 Refill Cee Christianson MD Work Phone: Internal Medicine [place] Comment on above: Refill Request Start: 10-09-2024 End: 10-09-2024 ambulatory CEE Gama DE LA CRUZAMPRUSTY Facility:[facility] Start: 10-09-2024 End: 10-09-2024 Subsequent hospital visit by physician [facility] Comment on above: Encounter for screen ing mammogram for breast cancer [Z12.31] Start: 10-06-2024 End: 12-06-2024 Follow-up encounter Ruma Westfall MD Work Phone: Internal Medicine [place] Start: 10-05-2024 End: 10-13-2024 Telephone encounter Ruma Westfall MD Work Phone: Internal Medicine [place] Comment on above: Patient appointment- may run late Start: 10-05-2024 End: 10-05-2024 ambulatory CEE MONTENEGRORUSTY Facility:[facility] Start: 10-05-2024 End: 10-05-2024 ambulatory CEE Gama MONTENEGRORUSTY Facility:[facility] Start: 10-05-2024 End: 10-05-2024 Office consultation new/estab patient 80 min Ruma Westfall MD Work Phone: Geriatrics Comment on above: Memory deficit (Prim tuan Dx); Cognitive impairment, mild, so stated; Gait instability; Balance disorder Start: 09-25-2024 End: 11-25-2024 Follow-up encounter Pradeep Blanton MD Work Phone: Internal Medicine [place] Start: 09-25-2024 End: 09-25-2024 ambulatory CEE MONTENEGRORUSTY Facility:[facility] Start: 09-25-2024 End: 09-25-2024 Office outpatient visit [...] 09-22-2024 End: 09-22-2024 ambulatory CEE D TALAMPAS Facility:[facility] Start: 09-22-2024 End: 09-22-2024 Subsequent hospital visit by physician [facility] Work Phone: Radiology Comment on above: Urinary tract infect ion without hematuria, site unspecified [N39.0] Start: 09-21-2024 End: 09-21-2024 ambulatory CEE D TALAMPAS Facility:[facility] Start: 09-21-2024 End: 09-21-2024 Office outpatient visit [...] 09-11-2024 Subsequent hospital visit by physician Derek [facility] [place] Work Phone: Radiology Comment on above: Acute midline low ba ck pain with right-sided sciatica [M54.41] Start: 09-11-2024 End: 09-11-2024 ambulatory CEE D TALAMPAS Facility:[facility] Start: 09-11-2024 End: 09-11-2024 Patient encounter procedure Jean ADAMES Work Phone: [place] [facility] Comment on above: Urinary frequency (P rimary Dx); Acute midline low back pain with right-sided sciatica Start: 09-08-2024 End: 09-08-2024 ambulatory CEE D TALAMPAS Facility:[facility] Start: 08-11-2024 End: 08-12-2024 Refill Cee Christianson MD Work Phone: Internal Medicine [place] Comment on above: Refill Request Start: 05-24-2024 End: 05-24-2024 ambulatory CEE D TALAMPAS Facility:[facility] Start: 05-24-2024 End: 05-24-2024 Subsequent hospital visit by physician Matias Zapata DO Work Phone: Ambulatory Surgery Comment on above: Screening for colon cancer [Z12.11] Start: 05-04-2024 End: 05-15-2024 Telephone encounter Cee Christianson MD Work Phone: Internal Medicine [place] Comment on above: Patient Question Start: 04-21-2024 End: 04-21-2024 Telephone encounter Cee Christianson MD Work Phone: Internal Medicine [place] Start: 03-29-2024 Refill Cee sarah MD Work Phone: Internal Medicine [place] Comment on above: Refill Request requesting medicatio n Start: 02-21-2024 End: 02-21-2024 ambulatory CEE CHRISTIANSON Facility:[facility] Start: 02-21-2024 End: 02-21-2024 Office outpatient visit [...] Start: 02-18-2024 End: 02-18-2024 ambulatory CEE CHRISTIANSON Facility:[facility] Start: 02-16-2024 ambulatory Cee sarah MD Work Phone: Internal Medicine [facility] [place] Start: 02-01-2024 Telephone encounter Thuy brooks APRN.CNP Work Phone: Internal Medicine [place] Comment on above: requesting informati on Start: 01-18-2024 Orders Only Cee sarah MD Work Phone: Internal Medicine [place] Comment on above: Patient Question Start: 01-14-2024 Refill Cee sarah MD Work Phone: [address] [place] [address] Comment on above: Refill Request Start: 12-17-2023 End: 12-17-2023 Patient encounter procedure Edgard Dubois PA-C Work Phone: Orthopaedics Comment on above: Primary osteoarthrit is of left knee (Primary Dx); Chronic pain of left knee Start: 12-17-2023 End: 12-17-2023 Subsequent hospital visit by physician Derek [facility] [place] [facility] Work Phone: Radiology Comment on above: Left knee pain, unsp ecified chronicity [M25.562] Start: 12-15-2023 Orders Only Edgard smalls PA-C Work Phone: Orthopaedics Comment on above: Left knee pain, unsp ecified chronicity (Primary Dx) Start: 12-14-2023 End: 12-14-2023 Patient encounter procedure Thuy Stewart APRN.CNP Work Phone: Internal Medicine [place] Comment on above: Chronic pain of left knee (Primary Dx); Allergic rhinitis, unspecified seasonality, unspecified trigger; Medication management; Encounter for therapeutic drug monitoring Start: 10-04-2023 Refill Cee sarah MD Work Phone: Internal [facility] Comment on above: Refill Request Start: 09-30-2023 Refill Cee sarah MD Work Phone: Family [facility] Comment on above: Refill Request Start: 09-24-2023 Telephone encounter Cee mccarthy MD Work Phone: Internal Medicine [place] Comment on above: Refill Request Start: 09-14-2023 End: 09-14-2023 Patient encounter procedure Cee Christianson MD Work Phone: Internal Medicine [place] Comment on above: Primary hypertension (Primary Dx); [...] Cee sarah MD Work Phone: Internal Medicine [place] Comment on above: Refill Request Start: 02-25-2023 [...] Subsequent hospital visit by physician [facility] Comment on above: Encounter for screen ing mammogram for breast cancer [Z12.31] Screening for osteop orosis [Z13.820] Start: 12-18-2022 End: 12-18-2022 Patient encounter procedure Thuy Stewart APRN.CNP Work Phone: Internal Medicine [place] Comment on above: Primary hypertension (Primary Dx); Tobacco use disorder; Generalized anxiety disorder; Obesity, Class II, BMI 35-39.9; Encounter for screening mammogram for breast cancer; Screening for osteoporosis; Asymptomatic menopause; Screening for depression Start: 08-31-2022 [facility]ulatory [facility] [place] Comment on above: Population Health Na vigation Outreach ([employer] care gaps) Start: 07-31-2022 Telephone encounter Thuy brooks APRN.CNP Work Phone: [facility] [place] Comment on above: Patient Update (Bloo d Pressure Results) Start: 07-27-2022 Telephone encounter Zakia almodovar 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.STUMP BLOWER Work Phone: [facility] [place] Comment on above: Recheck (lisinopril dose) Start: 06-23-2022 End: 06-23-2022 Patient encounter procedure Zakia Sneed 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.STUMP BLOWER Work Phone: [facility] [place] Comment on above: Asthma (Primary Dx); Need for shingles vaccine; Screening for osteoporosis; Asymptomatic menopause; Encounter for immunization Start: 02-20-2022 Refill Cee sarah MD Work Phone: [facility] [place] Comment on above: Opened In Error Start: 01-01-2022 Documentation procedure Mammog umer Coordinator [facility] Start: 01-01-2022 Letter encounter Mammography Coordinator [facility] Department Start: 01-01-2022 End: 01-01-2022 Subsequent hospital visit by physician Screen Mammo [facility] Comment on above: Encounter for screen ing mammogram for breast cancer [Z12.31] Start: 12-19-2021 End: 12-19-2021 Office outpatient visit 40 minutes Cee Christianson MD Work Phone: [facility] [place] Comment on above: Essential hypertensi on (Primary [...] sarah MD Work Phone: Internal Medicine [facility] [place] Start: 07-18-2017 End: 07-19-2017 Evaluation and management of inpatient Cee Christianson Facility:[facility] Start: 07-15-2017 End: 07-15-2017 Emergency department patient visit Stefano Garcia Facility:[facility] Start: 07-08-2017 End: 07-14-2017 Evaluation and management of inpatient Cee Christianson Facility:[facility] Procedures Date Procedure Procedure Detail Performing Clinician Start: 12-30-2024 Mri spinal canal lum bar w/o contrast material Cee Christianson MD Work Phone: Start: 11-07-2024 MRI 3D BRAIN QUANT Christiano Westfall MD Work Phone: Start: 11-07-2024 Mri brain brain stem w/o contrast material Ruma Westfall MD Work Phone: Start: 10-09-2024 Screening mammograph y bi 2-view breast inc cad Cee Christianson MD Work Phone: Start: 09-25-2024 PFIZER-BIONTECH COVI [...] dy 1/> sites axial skel Thuy Stewart 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.POLICE RECORDS CLERK Work Phone: Start: 01-04-2023 End: 01-04-2023 Mammography Thuy Stewart 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.CN P Work Phone: Start: 06-23-2022 INFLUENZA SEASONAL QUADRIVALENT HIGH DOSE AGE 65+ Zakia Sneed 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.STUMP BLOWER Work Phone: Start: 06-23-2022 PFIZER-BIONTECH COVI D-19 BIVALENT BOOSTER VACCINE, AGE 12+ YR Zakia Sneed 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.STUMP BLOWER Work Phone: Start: 01-01-2022 End: 01-01-2022 Screening mammography bi 2-view breast inc cad Bulk Order Provider Start: 12-30-2020 Adult depression scr eening assessment Cee Christianson MD Work Phone: Start: 10-31-2020 Mammography Cee ddod MD Work Phone: Start: 02-07-2014 Colonoscopy Cee dodd MD Work Phone: Plan of Treatment Date Care Activity Detail Author Start: 05-24-2034 Screening for malignant neoplasm of colon [facility] Start: 09-08-2029 Lipid panel Lipid Screening [facility] Start: 02-17-2029 Lipid panel Lipid Screening [facility] Start: 03-29-2028 Lipid 1996 panel - Serum or Plasma Lipid Screening [facility] Start: 03-29-2028 Lipid panel Lipid Screening [facility] Start: 09-08-2027 Diabetes Screening Diabetes Screening [facility] Start: 06-20-2027 LIPID SCREEN LIPID SCREEN [facility] Start: 02-17-2027 Diabetes Screening Diabetes Screening [facility] Start: 12-18-2026 LIPID SCREEN LIPID SCREEN [facility] Start: 05-24-2026 LIPID SCREEN LIPID SCREEN [facility] Start: 03-29-2026 Diabetes Screening Diabetes Screening [facility] Start: 10-09-2025 Screening for malignant neoplasm of breast Mammogram Screening [facility] Start: 09-25-2025 Annual PCP Team Chronic Disease Visit Annual PCP Team Chronic Disease Visit [facility] Start: 09-25-2025 Depression Screening Depression Screening [facility] Start: 09-25-2025 Spirometry Spirometry [facility] Comment on above: Postponed from 1972 (Declined at t his time) Start: 09-21-2025 Annual PCP Team Chronic Disease Visit Annual PCP Team Chronic Disease Visit [facility] Start: 08-27-2025 End: 08-27-2025 Patient encounter procedure 08/27/2025 11:00 AM EST Office Visit [facility] [address] [place] [address] Cee Christianson MD [address] [place] [address] 6 month f/u [facility] Comment on above: 6 month f/u Start: 06-20-2025 DIABETES SCREEN DIABETES SCREEN [facility] Start: 05-30-2025 End: 05-30-2025 Patient encounter procedure 05/30/2025 3:00 PM EDT Office Visit Geriatrics [address] [place] [address] Ruma Westfall MD [address] [place] [address] 6 mo follow up - [facility] Comment on above: 6 mo follow up - mikayla Start: 04-10-2025 End: 04-10-2025 Patient encounter procedure 04/10/2025 11:00 AM EDT Office Visit [facility] [address] [place] [address] [phone] Prince Lorenzo MD [address] [place] [address] [phone] [facility] Start: 04-04-2025 End: 01-02-2026 XR Lumbar spine Views W flexion and W extension XR lumbar spine 4-5 view Imaging Routine Lumbar stenosis with neurogenic claudication Closed wedge compression fracture of T11 vertebra, initial encounter (HCC) Arachnoiditis Expected: 04/04/2025, Expires: 01/02/2026 [facility] Work Phone: Comment on above: Expected: 04/04/2025, Expires: Start: 04-04-2025 End: 01-02-2026 XR Thoracic spine 4 Views XR THORACIC SPINE COMPLETE 4+ VIEWS Imaging Routine Lumbar stenosis with neurogenic claudication Closed wedge compression fracture of T11 vertebra, initial encounter (HCC) Arachnoiditis Expected: 04/04/2025, Expires: 01/02/2026 [facility] Comment on above: Expected: 04/04/2025, Expires: Start: 03-25-2025 Covid-19 Vaccine ( season) Covid-19 Vaccine () [facility] Start: 02-21-2025 End: 02-21-2025 Patient encounter procedure 02/21/2025 9:20 AM EDT Office Visit [facility] [address] [place] [address] Cee Christianson MD [address] [place] [address] 6 month follow up [facility] Comment on above: 6 month follow up Start: 02-20-2025 Annual PCP Team Chronic Disease Visit Annual PCP Team Chronic Disease Visit [facility] Start: 02-12-2025 End: 02-12-2025 ambulatory 02/12/2025 10:45 AM EDT OT/PT/Speech Visit [facility] [address] [place] [address] Smith Caro, PT [address] [facility] [place] [id number] R26.81 (ICD-10-CM) - Gait instability [facility] Comment on above: R26.81 (ICD-10-CM) - Gait instability Start: 02-08-2025 End: 02-08-2025 ambulatory 02/08/2025 10:45 AM EDT OT/PT/Speech Visit [facility] [address] [place] [address] Smith Caro, PT [address] [place] [address] R26.81 (ICD-10-CM) - Gait instability [facility] Comment on above: R26.81 (ICD-10-CM) - Gait instability Start: 02-05-2025 End: 02-05-2025 ambulatory 02/05/2025 9:15 AM EDT OT/PT/Speech Visit [facility] [address] [place] [address] Smtih Caro, PT [address] [place], [place] [address] R26.81 (ICD-10-CM) - Gait instability [facility] Comment on above: R26.81 (ICD-10-CM) - Gait instability Start: 02-01-2025 End: 02-01-2025 ambulatory [facility] Comment on above: R26.81 (ICD-10-CM) - Gait instability Start: 01-29-2025 End: 01-29-2025 ambulatory 01/29/2025 11:45 AM EDT OT/PT/Speech Visit [facility] [address] [place] [address] Christin Walsh, BOX SEALING INSPECTOR [address] [place] [address] R26.81 (ICD-10-CM) - Gait instability [facility] Comment on above: R26.81 (ICD-10-CM) - Gait instability Start: 01-28-2025 End: 04-29-2025 25-hydroxyvitamin D3 [Mass/volume] in Serum or Plasma VITAMIN D 25 HYDROXY Lab Routine Vitamin D deficiency Encounter for long-term current use of medication Expected: 01/28/2025, Expires: 04/29/[address] [facility] Comment on above: Expected: 01/28/2025, Expires: Start: 01-28-2025 End: 04-29-2025 CBC panel - Blood by Automated count COMPLETE BLOOD COUNT Lab Routine Primary hypertension Encounter for long-term current use of medication Expected: 01/28/2025, Expires: 04/29/[address] [facility] Comment on above: Expected: 01/28/2025, Expires: Start: 01-28-2025 End: 04-29-2025 Comprehensive metabolic 2000 panel - Serum or Plasma COMPREHENSIVE METABOLIC PANEL Lab Routine Primary hypertension Encounter for long-term current use of medication Expected: 01/28/2025, Expires: 04/29/2025 [facility] Work Phone: Comment on above: Expected: 01/28/2025, Expires: Start: 01-28-2025 End: 04-29-2025 Ferritin [Mass/volume] in Serum or Plasma FERRITIN Lab Routine Elevated ferritin Encounter for long-term current use of medication Expected: 01/28/2025, Expires: 04/29/[address] [facility] Comment on above: Expected: 01/28/2025, Expires: Start: 01-28-2025 End: 04-29-2025 Magnesium [Mass/volume] in Serum or Plasma MAGNESIUM Lab Routine Encounter for long-term current use of medication Expected: 01/28/2025, Expires: 04/29/[address] [facility] Comment on above: Expected: 01/28/2025, Expires: Start: 01-23-2025 End: 01-23-2025 ambulatory 01/23/2025 7:45 AM EDT OT/PT/Speech Visit [facility] [address] [place] [address] Smith Caro, PT [address] [place], [place] [address] R26.81 (ICD-10-CM) - Gait instability / OK per [facility] staff msg [facility] Comment on above: R26.81 (ICD-10-CM) - Gait instability / OK per [facility] staff [facility] Start: 01-01-2025 End: 01-01-2025 ambulatory 01/01/2025 10:00 AM EDT OT/PT/Speech Visit [facility] [address] [place], [place] [id number] Smith Caro, PT [address] [place] [address] R26.81 (ICD-10-CM) - Gait instability [facility] Comment on above: R26.81 (ICD-10-CM) - Gait instability Start: 12-30-2024 Subsequent hospital visit by physician 12/30/2024 8:00 AM EDT Hospital Encounter [facility] [address] [place] [id number] 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 Start: 12-13-2024 Annual PCP Team Chronic Disease Visit Annual PCP Team Chronic Disease Visit [facility] Start: 11-30-2024 End: 11-30-2024 ambulatory 11/30/2024 3:00 PM EDT OT/PT/Speech Visit [facility] [address] [facility] [place] [place] [phone] Danny Tucker, PT [address] [place], [place] [phone] LOW BACK PAIN [facility] Comment on above: LOW BACK PAIN Start: 11-29-2024 End: 11-29-2024 Patient encounter procedure 11/29/2024 11:00 AM EDT Office Visit Geriatrics [address] [place] [address] Ruma Westfall MD [address] [facility] [place] [address] MRI FOLLOW UP [facility] Comment on above: MRI FOLLOW UP [facility] Start: 11-07-2024 End: 11-07-2024 Patient encounter procedure 11/07/2024 12:30 PM EDT Appointment [facility] [address] [place] [address] [facility] Comment on above: [phone] Start: 11-01-2024 End: 11-01-2024 ambulatory 11/01/2024 8:30 AM EDT OT/PT/Speech Visit [facility] [address] [place] [address] Danny Tucker, PT [address] [place] [address] Gait instability [R26.81] [facility] Comment on above: Gait instability [R26.81] Start: 10-19-2024 End: 10-19-2024 ambulatory 10/19/2024 10:15 AM EST OT/PT/Speech Visit [facility] [address] [place] [address] Angella Sahu, PT : Gait instability [R26.81] [facility] Comment on above: : Gait instability [R26.81] Start: 10-09-2024 End: 10-09-2024 Patient encounter procedure 10/09/2024 11:10 AM EST Appointment Mammogram [address] [place] [address] : Encounter for screening mammogram for breast cancer [Z12.31] Mammogram Comment on above: : Encounter for screening mammogram for breast cancer [Z12.31] Start: 09-25-2024 End: 09-25-2024 Patient encounter procedure 09/25/2024 1:00 PM EST Office Visit [facility] [place] [address] [place] [address] Cee Christianson MD [address] [place] [address] yearly physical [facility] Comment on above: yearly physical Start: 09-22-2024 End: 09-22-2024 Patient encounter procedure 09/22/2024 1:45 PM EST Appointment Radiology [address] [place] [address] Urinary tract infection without hematuria, site unspecified [N39.0]; Acute left-sided low back pain without sciatica [M54.50] Radiology Comment on above: Urinary tract infection without hematuri a, site unspecified [N39.0]; Acute left-sided low back pain without sciatica [M54.50] Start: 09-14-2024 Annual PCP Team Chronic Disease Visit Annual PCP Team Chronic Disease Visit [facility] Start: 08-16-2024 Advance Directive Discussion Advance Directive Discussion [facility] Start: 08-16-2024 Medicare Advantage Annual Wellness Visit Medicare Advantage Annual Wellness Visit [facility] Start: 07-23-2024 End: 10-22-2024 25-hydroxyvitamin D3 [Mass/volume] in Serum or Plasma VITAMIN D 25 HYDROXY Lab Routine Encounter for long-term current use of medication Osteopenia of both hips Expected: 07/23/2024 (Approximate), Expires: 10/22/[address] [facility] Comment on above: Expected: 07/23/2024 (Approximate), Expi res: 10/22/2024 Start: 07-23-2024 End: 10-22-2024 CBC panel - Blood by Automated count COMPLETE BLOOD COUNT Lab Routine Primary hypertension Encounter for long-term current use of medication Expected: 07/23/2024 (Approximate), Expires: 10/22/[address] [facility] Comment on above: Expected: 07/23/2024 (Approximate), Expi res: 10/22/2024 Start: 07-23-2024 End: 10-22-2024 Cobalamin (Vitamin B12) [Mass/volume] in Serum or Plasma VITAMIN B12 Lab Routine Encounter for long-term current use of medication Expected: 07/23/2024 (Approximate), Expires: 10/22/[address] [facility] Comment on above: Expected: 07/23/2024 (Approximate), Expi res: 10/22/2024 Start: 07-23-2024 End: 10-22-2024 Comprehensive metabolic 2000 panel - Serum or Plasma COMPREHENSIVE METABOLIC PANEL Lab Routine Primary hypertension Encounter for long-term current use of medication Expected: 07/23/2024 (Approximate), Expires: 10/22/2024 [facility] Work Phone: Comment on above: Expected: 07/23/2024 (Approximate), Expi res: 10/22/2024 Start: 07-23-2024 End: 10-22-2024 Ferritin [Mass/volume] in Serum or Plasma FERRITIN Lab Routine Elevated ferritin Encounter for long-term current use of medication Expected: 07/23/2024 (Approximate), Expires: 10/22/[address] [facility] Comment on above: Expected: 07/23/2024 (Approximate), Expi res: 10/22/2024 Start: 07-23-2024 End: 10-22-2024 Lipid 1996 panel - Serum or Plasma LIPID PANEL BASIC Lab Routine Encounter for long-term current use of medication Expected: 07/23/2024 (Approximate), Expires: 10/22/[address] [facility] Comment on above: Expected: 07/23/2024 (Approximate), Expi res: 10/22/2024 Start: 07-23-2024 End: 10-22-2024 Magnesium [Mass/volume] in Serum or Plasma MAGNESIUM Lab Routine Encounter for long-term current use of medication Expected: 07/23/2024 (Approximate), Expires: 10/22/[address] [facility] Comment on above: Expected: 07/23/2024 (Approximate), Expi res: 10/22/2024 Start: 06-17-2024 Covid-19 Vaccine ( season) Covid-19 Vaccine ( season) [facility] Start: 05-27-2024 Shingrix Vaccine (2 of 2) Shingrix Vaccine (2 of 2) [facility] Start: 05-27-2024 Zoster Vaccines (2 of 2) Zoster Vaccines (2 of 2) [facility] Start: 05-24-2024 DIABETES SCREEN DIABETES SCREEN [facility] Start: 05-24-2024 End: 05-24-2024 Patient encounter procedure Ambulatory Surgery Comment on above: Screening for colon cancer [Z12.11] Start: 05-23-2024 End: 05-23-2024 Patient encounter procedure 05/23/2024 7:45 AM EDT Appointment Ambulatory Surgery [address] [place] [address] Screening for colon cancer [Z12.11] Ambulatory Surgery Comment on above: Screening for colon cancer [Z12.11] Start: 04-16-2024 Covid-19 Vaccine ( season) Covid-19 Vaccine () [facility] Start: 04-16-2024 Influenza vaccination Influenza Vaccine (#1) [facility] Start: 04-11-2024 Covid-19 Vaccine () Covid-19 Vaccine () [facility] Start: 03-14-2024 End: 06-13-2024 25-hydroxyvitamin D3 [Mass/volume] in Serum or Plasma VITAMIN D 25 HYDROXY Lab Routine Osteopenia, unspecified location Expected: 03/14/2024 (Approximate), Expires: 06/13/2024 [facility] Work Phone: Comment on above: Expected: 03/14/2024 (Approximate), Expi res: 06/13/2024 Start: 03-14-2024 End: 06-13-2024 CBC panel - Blood by Automated count CBC Lab Routine Primary hypertension Encounter for long-term current use of medication Expected: 03/14/2024 (Approximate), Expires: 06/13/2024 [facility] Work Phone: Comment on above: Expected: 03/14/2024 (Approximate), Expi res: 06/13/2024 Start: 03-14-2024 End: 06-13-2024 Comprehensive metabolic 2000 panel - Serum or Plasma COMP METABOLIC PANEL Lab Routine Primary hypertension Encounter for long-term current use of medication Expected: 03/14/2024 (Approximate), Expires: 06/13/2024 [facility] Work Phone: Comment on above: Expected: 03/14/2024 (Approximate), Expi res: 06/13/2024 Start: 03-14-2024 End: 06-13-2024 Ferritin [Mass/volume] in Serum or Plasma FERRITIN BLD Lab Routine Elevated ferritin Expected: 03/14/2024 (Approximate), Expires: 06/13/2024 [facility] Work Phone: Comment on above: Expected: 03/14/2024 (Approximate), Expi res: 06/13/2024 Start: 03-14-2024 End: 06-13-2024 Lipid 1996 panel - Serum or Plasma LIPID PANEL BASIC Lab Routine Hypercholesteremia Expected: 03/14/2024 (Approximate), Expires: 06/13/2024 [facility] Work Phone: Comment on above: Expected: 03/14/2024 (Approximate), Expi res: 06/13/2024 Start: 02-21-2024 End: 02-21-2024 Patient encounter procedure 02/21/2024 8:40 AM EDT Office Visit [facility] [address] [place], [place] [address] Cee Christianson MD [address] [place] [address] 6 month follow up [facility] Comment on above: 6 month follow up Start: 02-20-2024 ANNUAL PCP TEAM CHRONIC DISEASE VISIT ANNUAL PCP TEAM CHRONIC DISEASE VISIT [facility] Start: 02-08-2024 Colonoscopy [address] [facility] Start: 02-08-2024 COLORECTAL CANCER SCREENING COLORECTAL CANCER SCREENING [facility] Start: 02-08-2024 Screening for malignant neoplasm of colon [facility] Start: 01-18-2024 End: 04-18-2024 Lipid 1996 panel - Serum or Plasma LIPID PANEL BASIC Lab Routine Hypercholesteremia Expected: 01/18/2024, Expires: 04/18/2024 [facility] Work Phone: Comment on above: Expected: 01/18/2024, Expires: Start: 01-13-2024 Covid-19 Vaccine () Covid-19 Vaccine () [facility] Start: 01-11-2024 End: 04-11-2024 25-hydroxyvitamin D3 [Mass/volume] in Serum or Plasma VITAMIN D 25 HYDROXY Lab Routine Encounter for therapeutic drug monitoring Expected: 01/11/2024, Expires: 04/11/[address] [facility] Comment on above: Expected: 01/11/2024, Expires: Start: 01-11-2024 End: 04-11-2024 CBC W Auto Differential panel - Blood COMPLETE BLOOD COUNT AND DIFFERENTIAL Lab Routine Encounter for therapeutic drug monitoring Expected: 01/11/2024, Expires: 04/11/2024 [facility] Work Phone: Comment on above: Expected: 01/11/2024, Expires: Start: 01-11-2024 End: 04-11-2024 Cobalamin (Vitamin B12) [Mass/volume] in Serum or Plasma VITAMIN B12 Lab Routine Encounter for therapeutic drug monitoring Expected: 01/11/2024, Expires: 04/11/[address] [facility] Comment on above: Expected: 01/11/2024, Expires: Start: 01-11-2024 End: 04-11-2024 Comprehensive metabolic 2000 panel - Serum or Plasma COMPREHENSIVE METABOLIC PANEL Lab Routine Encounter for therapeutic drug monitoring Expected: 01/11/2024, Expires: 04/11/[address] [facility] Comment on above: Expected: 01/11/2024, Expires: Start: 01-11-2024 End: 04-11-2024 Ferritin [Mass/volume] in Serum or Plasma FERRITIN Lab Routine Encounter for therapeutic drug monitoring Expected: 01/11/2024, Expires: 04/11/[address] [facility] Comment on above: Expected: 01/11/2024, Expires: Start: 01-11-2024 End: 04-11-2024 Iron and Iron binding capacity panel - Serum or Plasma IRON AND TIBC Lab Routine Encounter for therapeutic drug monitoring Expected: 01/11/2024, Expires: 04/11/[address] [facility] Comment on above: Expected: 01/11/2024, Expires: Start: 01-11-2024 End: 04-11-2024 Magnesium [Mass/volume] in Serum or Plasma MAGNESIUM Lab Routine Encounter for therapeutic drug monitoring Expected: 01/11/2024, Expires: 04/11/[address] [facility] Comment on above: Expected: 01/11/2024, Expires: Start: 01-05-[address] [facility] Start: 01-05-2024 Screening for malignant neoplasm of breast Mammogram Screening [facility] Start: 12-19-2023 ANNUAL PCP TEAM CHRONIC DISEASE VISIT ANNUAL PCP TEAM CHRONIC DISEASE VISIT [facility] Start: 12-17-2023 End: 12-17-2023 Patient encounter procedure 12/17/2023 11:00 AM EDT Office Visit Orthopaedics [address] [place] [address] Edgard Dubois PA-C [address] [address] Chronic pain of left knee [M25.562, G89.29] Orthopaedics Comment on above: Chronic pain of left knee [M25.562, G89. 29] Start: 08-16-2023 Advance Directive Discussion Advance Directive Discussion [facility] Start: 08-16-2023 Behavioral Health Screening Behavioral Health Screening [facility] Start: 08-16-2023 Depression Assessment Depression Assessment [facility] Start: 07-29-2023 ANNUAL PCP TEAM CHRONIC DISEASE VISIT ANNUAL PCP TEAM CHRONIC DISEASE VISIT [facility] Start: 04-16-2023 Covid-19 Vaccine () Covid-19 Vaccine () [facility] Start: 04-16-2023 Influenza vaccination INFLUENZA (#1) [facility] Start: 03-22-2023 End: 05-22-2023 25-hydroxyvitamin D3 [Mass/volume] in Serum or Plasma VITAMIN D 25 HYDROXY Lab Routine Osteopenia of both hips Encounter for long-term current use of medication Expected: 03/22/2023 (Approximate), Expires: 05/22/2023 [facility] Work Phone: Comment on above: Expected: 03/22/2023 (Approximate), Expi res: 05/22/2023 Start: 03-22-2023 End: 05-22-2023 CBC panel - Blood by Automated count CBC Lab Routine Primary hypertension Encounter for long-term current use of medication Expected: 03/22/2023 (Approximate), Expires: 05/22/2023 [facility] Work Phone: Comment on above: Expected: 03/22/2023 (Approximate), Expi res: 05/22/2023 Start: 03-22-2023 End: 05-22-2023 Cobalamin (Vitamin B12) [Mass/volume] in Serum or Plasma VITAMIN B12 BLOOD Lab Routine Macrocytic anemia Encounter for long-term current use of medication Expected: 03/22/2023 (Approximate), Expires: 05/22/2023 [facility] Work Phone: Comment on above: Expected: 03/22/2023 (Approximate), Expi res: 05/22/2023 Start: 03-22-2023 End: 05-22-2023 Comprehensive metabolic 2000 panel - Serum or Plasma COMP METABOLIC PANEL Lab Routine Primary hypertension Encounter for long-term current use of medication Expected: 03/22/2023 (Approximate), Expires: 05/22/2023 [facility] Work Phone: Comment on above: Expected: 03/22/2023 (Approximate), Expi res: 05/22/2023 Start: 03-22-2023 End: 05-22-2023 Ferritin [Mass/volume] in Serum or Plasma FERRITIN BLD Lab Routine Macrocytic anemia Encounter for long-term current use of medication Expected: 03/22/2023 (Approximate), Expires: 05/22/2023 [facility] Work Phone: Comment on above: Expected: 03/22/2023 (Approximate), Expi res: 05/22/2023 Start: 03-22-2023 End: 05-22-2023 Folate [Mass/volume] in Serum or Plasma FOLATE SERUM Lab Routine Macrocytic anemia Encounter for long-term current use of medication Expected: 03/22/2023 (Approximate), Expires: 05/22/2023 [facility] Work Phone: Comment on above: Expected: 03/22/2023 (Approximate), Expi res: 05/22/2023 Start: 03-22-2023 End: 05-22-2023 Iron and Iron binding capacity panel - Serum or Plasma IRON + TIBC Lab Routine Macrocytic anemia Encounter for long-term current use of medication Expected: 03/22/2023 (Approximate), Expires: 05/22/2023 [facility] Work Phone: Comment on above: Expected: 03/22/2023 (Approximate), Expi res: 05/22/2023 Start: 03-22-2023 End: 05-22-2023 Lipid 1996 panel - Serum or Plasma LIPID PANEL BASIC Lab Routine Hypercholesteremia Encounter for long-term current use of medication Expected: 03/22/2023 (Approximate), Expires: 05/22/2023 [facility] Work Phone: Comment on above: Expected: 03/22/2023 (Approximate), Expi res: 05/22/2023 Start: 01-01-2023 Mammography [address] [facility] Start: 12-19-2022 ANNUAL PCP TEAM CHRONIC DISEASE VISIT ANNUAL PCP TEAM CHRONIC DISEASE VISIT [facility] Start: 10-21-2022 COVID-19 VACCINE (5 - Moderna series) COVID-19 VACCINE (5 - Moderna series) [facility] Start: 08-17-2022 BONE DENSITY BONE DENSITY [facility] Comment on above: Postponed from 2019 (Postponed To Appropriate Date) Start: 08-16-2022 ADVANCE DIRECTIVE DISCUSSION ADVANCE DIRECTIVE DISCUSSION [facility] Start: 08-16-2022 DEPRESSION ASSESSMENT DEPRESSION ASSESSMENT [facility] Start: 06-21-2022 End: 08-21-2022 CBC panel - Blood by Automated count CBC Lab Routine Essential hypertension Encounter for long-term current use of medication Expected: 06/21/2022 (Approximate), Expires: 08/21/2022 [facility] Work Phone: Comment on above: Expected: 06/21/2022 (Approximate), Expi res: 08/21/2022 Start: 06-21-2022 End: 08-21-2022 Comprehensive metabolic 2000 panel - Serum or Plasma COMP METABOLIC PANEL Lab Routine Essential hypertension Encounter for long-term current use of medication Expected: 06/21/2022 (Approximate), Expires: 08/21/2022 [facility] Work Phone: Comment on above: Expected: 06/21/2022 (Approximate), Expi res: 08/21/2022 Start: 06-21-2022 End: 08-21-2022 Lipid 1996 panel - Serum or Plasma LIPID PANEL BASIC Lab Routine Essential hypertension Hypercholesteremia Expected: 06/21/2022 (Approximate), Expires: 08/21/2022 [facility] Work Phone: Comment on above: Expected: 06/21/2022 (Approximate), Expi res: 08/21/2022 Start: 05-26-2022 ANNUAL PCP TEAM CHRONIC DISEASE VISIT ANNUAL PCP TEAM CHRONIC DISEASE VISIT [facility] Start: 04-16-2022 Influenza vaccination INFLUENZA (#1) [facility] Start: 12-30-2021 Adult depression screening assessment DEPRESSION SCREENING [facility] Start: 12-30-2021 PNEUMOVAX AGE 65 AND OVER WITH 5YR LOOKBACK (#1) PNEUMOVAX AGE 65 AND OVER WITH 5YR LOOKBACK (#1) [facility] Comment on above: Postponed from 2019 (Declined at t his time) Start: 12-30-2021 SHINGRIX VACCINE (1 of 2) SHINGRIX VACCINE (1 of 2) [facility] Comment on above: Postponed from 2004 (Declined at t his time) Start: 11-22-2021 COVID-19 VACCINE (4 - Booster for Moderna series) COVID-19 VACCINE (4 - Booster for Moderna series) [facility] Start: 10-31-2021 Mammography MAMMOGRAM [facility] Start: 08-16-2021 ADVANCE DIRECTIVE DISCUSSION ADVANCE DIRECTIVE DISCUSSION [facility] Start: 04-30-2021 COVID-19 VACCINE (3 - Booster for Moderna series) COVID-19 VACCINE (3 - Booster for Moderna series) [facility] Start: 04-26-2020 PNEUMOCOCCAL: 65+ (2 - PPSV23 if available, else PCV20) PNEUMOCOCCAL: 65+ (2 - PPSV23 if available, else PCV20) [facility] Start: 04-26-2020 PNEUMOCOCCAL: 65+ (2 - PPSV23 or PCV20) PNEUMOCOCCAL: 65+ (2 - PPSV23 or PCV20) [facility] Start: 2019 BONE DENSITY BONE DENSITY [facility] Start: 2019 PNEUMOVAX AGE 65 AND OVER WITH 5YR LOOKBACK (#1) PNEUMOVAX AGE 65 AND OVER WITH 5YR LOOKBACK (#1) [facility] Start: 2014 RSV Vaccine (1 - 1-dose 60+ series) RSV Vaccine (1 - 1-dose 60+ series) [facility] Start: 2004 SHINGRIX VACCINE (1 of 2) SHINGRIX VACCINE (1 of 2) [facility] Start: 1999 COLOGUARD (FIT-DNA) COLOGUARD (FIT-DNA) [facility] Start: [address] COLONOGRAPHY [facility] Start: 1999 FECAL OCCULT BLOOD FECAL OCCULT BLOOD [facility] Start: 1999 Screening for malignant neoplasm of colon [facility] Start: 1999 SIGMOIDOSCOPY SIGMOIDOSCOPY [facility] Start: 1994 Screening for malignant neoplasm of breast Mammogram [facility] Start: 1972 BP CONTROLLED (<130/80) BP CONTROLLED (<130/80) [facility] Start: 1972 Depression Screening Depression Screening [facility] Start: 1972 Diabetes mellitus screening Diabetes Screening [facility] Start: 1972 Hepatitis C screening Hepatitis C Screening [facility] Start: 1972 SPIROMETRY SPIROMETRY [facility] Start: 1966 Depression Screening Depression Screening [facility] Start: 1954 Lipid panel Lipid Panel [facility] Start: 1954 Screening for malignant neoplasm of colon [facility] Bacteria identified in Urine by Culture BACTERIAL CULTURE, URINE Microbiology Routine Urinary frequency Ordered: 09/11/2024 [facility] Work Phone: Comment on above: Ordered: 09/11/2024 End: 03-17-2025 DBT Breast - bilateral screening NAVI SCREENING W KEVIN Radiology Routine Encounter for screening mammogram for breast cancer 1 Occurrences starting 02/16/2024 until 03/17/2025 [facility] Work Phone: Comment on above: 1 Occurrences starting 02/16/2024 until 03/17/2025 End: 01-17-2024 DXA-AXIAL SKELETON DXA-AXIAL SKELETON Radiology Routine Screening for osteoporosis Asymptomatic menopause 1 Occurrences starting 12/18/2022 until 01/17/2024 [facility] Work Phone: Comment on above: 1 Occurrences starting 12/18/2022 until 01/17/2024 End: 01-17-2024 NAVI SCREENING NAVI SCREENING Radiology Routine Encounter for screening mammogram for breast cancer 1 Occurrences starting 12/18/2022 until 01/17/2024 [facility] Work Phone: Comment on above: 1 Occurrences starting 12/18/2022 until 01/17/2024 End: 11-04-2025 MR Brain WO contrast MRI BRAIN W QUANT WO IVCON Radiology Routine Cognitive impairment, mild, so stated 1 Occurrences starting 10/05/2024 until 11/04/2025 [facility] Work Phone: Comment on above: 1 Occurrences starting 10/05/2024 until 11/04/2025 End: 01-26-2026 MR Lumbar spine WO contrast MRI LUMBAR SPINE WO IVCON Radiology STAT Degeneration of intervertebral disc of lumbar region with discogenic back pain S/P lumbar spine operation Chronic midline low back pain without sciatica Acute midline low back pain without sciatica 1 Occurrences starting 12/27/2024 until 01/26/2026 [facility] Work Phone: Comment on above: 1 Occurrences starting 12/27/2024 until 01/26/2026 End: 11-04-2025 MR Unspecified body region 3D post processing MRI 3D BRAIN QUANT Radiology Routine Cognitive impairment, mild, so stated 1 Occurrences starting 10/05/2024 until 11/04/[address] [facility] Comment on above: 1 Occurrences starting 10/05/2024 until 11/04/2025 Pneumococcal vaccination PNEUMOCOCCAL VACCINE (PREVNAR 20) Immunization/Injection Routine Encounter for immunization 1 Occurrences starting 06/23/2022 [facility] Work Phone: Comment on above: 1 Occurrences starting 06/23/2022 End: 02-20-2025 Screening colonoscopy COLONOSCOPY SCREENING Endoscopy Routine Screening for colon cancer 1 Occurrences starting 02/21/2024 until 02/20/[address] [facility] Comment on above: 1 Occurrences starting 02/21/2024 until 02/20/2025 End: 01-02-2023 Screening mammography bi 2-view breast inc cad NAVI SCREENING Radiology Routine Encounter for screening mammogram for breast cancer 1 Occurrences starting 12/03/2021 until 01/02/2023 [facility] Work Phone: Comment on above: 1 Occurrences starting 12/03/2021 until 01/02/2023 End: 07-23-2023 SPIROMETRY - BASELINE AND POST DILATOR SPIROMETRY - BASELINE AND POST DILATOR PFT Routine Asthma 1 Occurrences starting 06/23/2022 until 07/23/2023 [facility] Work Phone: Comment on above: 1 Occurrences starting 06/23/2022 until 07/23/2023 End: 10-21-2025 US Kidney - bilateral and Urinary bladder US KIDNEY/BLADDER Radiology Routine Urinary tract infection without hematuria, site unspecified Right-sided low back pain without sciatica, unspecified chronicity 1 Occurrences starting 09/21/2024 until 10/21/2025 [facility] Work Phone: Comment on above: 1 Occurrences starting 09/21/2024 until 10/21/2025 US Kidney - bilatera l and Urinary bladder US KIDNEY/BLADDER Radiology Routine Urinary tract infection without hematuria, site unspecified Right-sided low back pain without sciatica, unspecified chronicity 09/22/2024 2:11 PM EST [facility] Work Phone: End: 01-13-2025 XR Knee - left 4 Views XR KNEE GENERAL 4V AP BOTH/PA BOTH/LAT/MERC LEFT Radiology Routine Left knee pain, unspecified chronicity 1 Occurrences starting 12/15/2023 until 01/13/2025 [facility] Work Phone: Comment on above: 1 Occurrences starting 12/15/2023 until 01/13/2025 XR Knee - left 4 Views XR KNEE G ENERAL 4V AP BOTH/PA BOTH/LAT/MERC LEFT Radiology Routine Left knee pain, unspecified chronicity 12/17/2023 11:12 AM EDT [facility] Work Phone: [facility] Immunizations Immunization Date Immunization Notes Care Provider Fa henry 09-25-2024 COVID-19 vaccine, ag e 12+ yr (PFIZER-BIONTECH COMIRNATY) Ruma Westfall MD Work Phone: [facility] 02-15-2024 COVID-19 vaccine, ag e 12+ yr, season (PFIZER-BIONTECH) Cee Christianson MD Work Phone: [facility] 02-15-2024 COVID-19 vaccine, ag e 12+ yr, bivalent (PFIZER-BIONTECH) Cee Christianson MD Work Phone: [facility] 02-15-2024 respiratory syncytia l virus (RSV) vaccine, adjuvanted (AREXVY) Cee Christianson MD Work Phone: [facility] 09-14-2023 COVID-19 vaccine, ag e 12+ yr, season (PFIZER-BIONTECH) Cee Christianson MD Work Phone: [facility] 04-13-2023 influenza (aIIV4) vaccine, age 65+ yr, quadrivalent, PF (FLUAD QUAD) Cee Christianson MD Work Phone: [facility] 04-13-2023 influenza, injectabl e, quadrivalent, contains preservative Cee Christianson MD Work Phone: [facility] Work Phone: 04-13-2023 influenza virus vaccine, unspecified formulation Cee Christianson MD Work Phone: [facility] 07-23-2022 pneumococcal (PCV20) vaccine, 20 valent (PREVNAR 20) Zakia Sneed APRN.CNS Work Phone: [facility] Work Phone: 06-23-2022 COVID-19 booster vaccine, age 12+ yr, bivalent (PFIZER-BIONT12Return) Zakia Sneed APRN.STUMP BLOWER Work Phone: [facility] Work Phone: 06-23-2022 influenza, high-dose , quadrivalent vaccine (FLUZONE HIGH DOSE QUADRIVALENT) Zakia Sneed APRN.STUMP BLOWER Work Phone: 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 Work Phone: 05-01-2021 influenza, high-dose , quadrivalent vaccine (FLUZONE HIGH DOSE QUADRIVALENT) Zakia Sneed 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.STUMP BLOWER Work Phone: [facility] Work Phone: 11-28-2020 COVID-19 vaccine, fu ll dose (MODERNA) Cee Christianson MD Work Phone: [facility] 10-31-2020 COVID-19 vaccine, fu ll dose (MODERNA) Cee Christianson MD Work Phone: [facility] 05-18-2020 influenza, high dose seasonal, preservative-free Cee Christianson MD Work Phone: [facility] Work Phone: 04-26-2019 influenza, injectabl e, quadrivalent, preservative free Cee Christianson MD Work Phone: [facility] 04-26-2019 pneumococcal conjuga te vaccine, 13 valent Cee Christianson MD Work Phone: [facility] 04-23-2018 influenza, seasonal, injectable Cee Christianson MD Work Phone: [facility] 05-22-2017 influenza, injectabl e, quadrivalent, contains preservative Cee Christianson MD Work Phone: [facility] Work Phone: 05-22-2015 influenza, seasonal, injectable Cee Christianson MD Work Phone: [facility] 12-18-2014 tetanus toxoid, redu grace diphtheria toxoid, and acellular pertussis vaccine, adsorbed Cee Christianson MD Work Phone: [facility] 05-07-2014 influenza, seasonal, injectable Cee Christianson MD Work Phone: [facility] 06-14-2006 influenza virus vaccine, unspecified formulation Cee Christianson MD Work Phone: [facility] Work Phone: 05-31-2006 tuberculin skin test ; purified protein derivative solution, intradermal Cee Christianson MD Work Phone: [facility] Payers Date Payer Category Payer Medicare HU[employer]NA MEDICARE HU[employer]NA MEDICARE PPO [id number] 2021-Present [phone] [place] [address] PPO [id number] 2021 Medicare HU[employer]NA MEDICARE HU[employer]NA MEDICARE PPO [id number] 2021-Present [phone] [place] [address] PPO [id number] 2021 Medicare (Managed Care) HU[employer]NA EDICARE [id number] 2018 Medicare HMO [employer] MEDICARE Member Subscriber Plan / Payer (Effective 2018-Present) Name: Susan Calderon Relation to Subscriber: Self Name: Susan Calderon Payer ID: [id number] (NAIC) Type: Medicare HMO Address: [place] [id number] 2016 Medicare [id number] Social History Date Type Detail Facility Start: 06-21-2020 End: 02-19-2023 Tobacco smoking status NHIS Occasional tobacco smoker [facility] Start: 06-22-1989 End: 07-25-2022 History of tobacco use Smoker [facility] Start: 06-21-2020 End: 12-18-2022 Cigarettes smoked current (pack per day) - Reported 0.[address] [facility] Work Phone: Start: 06-21-2020 End: 05-24-2024 Tobacco use and exposure Smokeless tobacco non-user [facility] Start: 05-26-2021 End: 10-05-2024 Alcohol intake Current drinker of alcohol (finding) [facility] Start: 06-21-2020 History SDOH Alcohol Frequency [address] [facility] Start: 06-21-2020 History SDOH Alcohol Std Drinks [address] [facility] Start: 06-21-2020 History SDOH Alcohol Binge [address] [facility] Start: 06-21-2020 History SDOH Social Connections Get Together [address] [facility] Start: 05-26-2021 Tobacco Comment Down to 2 to 5 cig a day (05/2021); from half PPD--working on quitting; stress triggers; 06/19/19--on patch and has quit smoking. Sometimes half PPD (12/30/20)- [facility] Start: 1955 Sex Assigned At Not on file [facility] Start: 12-19-2021 End: 07-29-2022 Tobacco Comment Down to 2 to 5 cig a day (05/2021); from half PPD--working on quitting; stress triggers; 06/19/19--on patch and has quit smoking. Sometimes half PPD (12/30/20 and ) [facility] Start: 12-22-2021 End: 06-23-2022 Exposure to SARS-CoV-2 (event) Not sure [facility] Start: 06-22-1989 End: 07-25-2022 History of tobacco use Cigarette Smoker [facility] Work Phone: Start: 07-29-2022 End: 05-24-2024 Tobacco smoking status NHIS Ex-smoker [facility] Work Phone: Start: 12-18-2022 End: 02-19-2023 Tobacco use panel [facility] Work Phone: Adult Depression Screening Assessment [address] [facility] Work Phone: Start: 02-19-2023 Tobacco Comment Cigarette every 2-3 days( 02/19/23 )February 19, 2023 Practically quit smoking. Just one the other day and made lightheaded. [facility] Do you belong to any clubs or organizations such as scientologist groups, unions, fraternal or athletic groups, or school groups? No [facility] Are you now , , , , never or living with a partner? [facility] How often to you hav e a drink containing alcohol? 2-3 time sa week [facility] How many standard dr inks containing alcohol do you have on a typical day? 3 or [address] [facility] How often do you hav e 6 or more drinks on 1 occasion? Monthly [facility] How hard is it for y ou to pay for the very basics like food, housing, medical care, and heating Not very hard [facility] Do you feel stress - tense, restless, nervous, or anxious, or unable to sleep at night because your mind is troubled all the time - these days [OSQ] To some extent [facility] (I/We) worried reinaldo er (my/our) food would run out before (I/we) got money to buy more. Never true [facility] How often do you hav e 6 or more drinks on 1 occasion? Monthly [facility] Start: 03-16-2022 Sex Female (finding) [facility] Functional Status Date Assessment Result Facility 12-18-2014 Are you deaf, or do you have serious difficulty hearing No 12/18/2014 8:39 AM Verna Kwon LPN No [facility] 12-18-2014 Are you blind, or do you have serious difficulty seeing, even when wearing glasses No 12/18/2014 8:39 AM Verna Kwon LPN No [facility] 12-18-2014 Do you have serious difficulty walking or climbing stairs No 12/18/2014 8:39 AM Verna Kwon LPN No [facility] 12-18-2014 Do you have difficul ty dressing or bathing No 12/18/2014 8:39 AM Verna Kwon LPN [facility] 12-18-2014 Because of a physica l, mental, or emotional condition, do you have difficulty doing errands alone such as visiting a physician's office or shopping No 12/18/2014 8:39 AM Verna Kwon LPN [facility] Mental Status Date Assessment Result Facility 12-18-2014 Because of a physica l, mental, or emotional condition, do you have serious difficulty concentrating, remembering, or making decisions No 12/18/2014 8:39 AM Verna Kwon LPN [facility] Clinical Notes 04-17-2005 to 02-12-2025 Smith Caro, PT - 02/12/2025 11:13 AM Smith Alvarado, PT - 02/08/2025 10:53 AM Smith Alvarado, PT - 02/05/2025 9:18 AM Smith Alvarado PT - 01/25/2025 10:50 AM EDTPatient Instructions Note Date & Type Note Facility 02-12-2025 Note HNO ID: [id number] Author: SMITH CARO PT Service: ? Author [...] Stop Time : 1124 Smith Caro PT [facility] 02-12-2025 History of Present illness Narrative [...] Smith Caro PT documented in this encounter [facility] 02-08-2025 Note HNO ID: [id number] Author: SMITH CARO PT Service: ? Author [...] x 15 4: Seated core crunch [place] 2 x 10 5: Seated core [...] Stop Time : 1131 Smith Caro PT [facility] 02-08-2025 History of Present illness Narrative [...] x 15 4: Seated core crunch [place] 2 x 10 5: Seated core [...] Smith Caro PT documented in this encounter [facility] 02-05-2025 Note HNO ID: [id number] Author: SMITH CARO PT Service: ? Author [...] x 15 4: Seated core crunch [place] 2 x 10 5: STS x [...] Stop Time : 957 Smith Caro PT [facility] 02-05-2025 History of Present illness Narrative [...] x 15 4: Seated core crunch [place] 2 x 10 5: STS x [...] Smith Caro PT documented in this encounter [facility] 01-25-2025 Note HNO ID: [id number] Author: SMITH CARO PT Service: ? Author [...] 10 3: Seated core crunch iso red [place] ball 3 x 10 4: Seated lumbar flexion stretch 2 x 10 5: Seated 7# vmjz-mit-bpk CW/CCW x 10 Skilled Intervention: Patient was educated in proper exercise technique and purpose for exercises. Provided written instruction for home exercise program to facilitate proper performance and compliance. Billing Therapeutic Exercise Treatment Minutes: 38 Skilled Treatment Time Minutes (timed and untimed codes): 38 Total Session Time (minutes): 38 Session Start Time : 1050 Session Stop Time : 1128 Smith Caro PT [facility] 01-25-2025 History of Present illness Narrative [...] 10 3: Seated core crunch iso red [place] ball 3 x 10 4: Seated lumbar flexion stretch 2 x 10 5: Seated 7# sxuy-jao-jsw CW/CCW x 10 Skilled Intervention: Patient was [...] Smith Caro PT documented in this encounter [facility] 01-16-2025 Note HNO ID: [id number] Author: ?, ?, ? Service: ? Author [...] Coffman Pss January 16, 2025 12:44 PM [facility] 01-16-2025 History of Present illness Narrative [...] 2025 12:44 PM documented in this encounter [facility] 01-16-2025 Note Patient Outreach (NE TNAV) SUSAN CALDERON ([id number]) 1955 F TXT Date Time Provider Department 01/16/25 CEE CRHISTIANSON During your visit today, we recorded the [...] 99 mg by mouth once daily. - OJUCXDAM-ZTNWGOWBFXODHC-MCA C ORAL Take by mouth once daily. [...] by mouth two times a day. - aijnbjhk-kyyslu-xgtrqfhm acid (COLLAGEN 1500 PLUS C) 500 mg-800 [...] Encounter Status:Closed by DEANNA LARSEN on 01/16/25 [facility] 01-10-2025 Note Referral Demographics Office Notes Faxed to [facility] CLEMENTE Lama as requested. [phone] [facility] 01-10-2025 Telephone encounter Note Referral Demographics Office Notes Faxed to [facility] PT [place] as requested. [phone] [facility] 01-10-2025 Miscellaneous Notes Referral Demographics Office Notes Faxed to [facility] [place] as requested. [phone] Addended by: JULIETA DELGADO. on: 01/09/2025 09:23 AM Modules accepted: Orders Placed referral to PT. Please fax to appropriate location. Thanks. Smith from [facility] PT in [place] called in to report patient was asking for more PT. She had previously received PT at this location. Smith is asking for referral to be faxed to [phone]. Any questions can be directed to [phone]. documented in this encounter [facility] 01-10-2025 Note HNO ID: [id number] Author: ANGELLA SAHU, PT Service: ? Author [...] Stop Time : 844 VANI Sullivan, CLEMENTE [facility] 01-10-2025 History of Present illness Narrative [...] VANI Sullivan PT documented in this encounter [facility] 01-09-2025 Note Addended by: JULIETA MEEKS on: 01/09/2025 09:23 AM Modules accepted: Orders [facility] 01-09-2025 Note Addended by: JULIETA MEEKS on: 01/09/2025 09:23 AM Modules accepted: Orders [facility] 01-09-2025 Note Placed referral to P T. Please fax to appropriate location. Thanks. [facility] 01-09-2025 Telephone encounter Note Placed referral to PT. Please fax to appropriate location. Thanks. [facility] 01-09-2025 Miscellaneous Notes Addended by: JULIETA DELGADO on: 01/09/2025 09:23 AM Modules accepted: Orders Placed referral to PT. Please fax to appropriate location. Thanks. Smith from [facility] PT in [place] called in to report patient was asking for more PT. She had previously received PT at this location. Smith is asking for referral to be faxed to [phone]. Any questions can be directed to [phone]. documented in this encounter [facility] 01-09-2025 Note Smith from [facility] PT in [place] called in to report patient was asking for more PT. She had previously received PT at this location. Smith is asking for referral to be faxed to [phone]. Any questions can be directed to [phone]. [facility] 01-09-2025 Telephone encounter Note Smith from [facility] PT in [place] called in to report patient was asking for more PT. She had previously received PT at this location. Smith is asking for referral to be faxed to [phone]. Any questions can be directed to [phone]. [facility] 01-04-2025 Note HNO ID: [id number] Author: SMITH CARO, PT Service: ? Author [...] Planned: 6 Planned Treatment Interventions: Therapeutic exercise (08328), Neuromuscular re-education (60146), Manual therapy (50762), Therapeutic activities (90599), Self-chcf management (78881), Patient/Family/Caregiver Education PLAN FOR NEXT VISIT: Core [...] injections and PT. The surgeon is with [facility] in [place]. Has had surgery maybe 2005. She can [...] (Legs are shaki (more content not included)... [facility] 01-03-2025 Note Attempted to call rosangela briones. Left her a message to call the office. Told patient to check her discharge summary paperwork because a print out of the order should be there with her after visit paperwork. Told patient to call office if she has any other questions or concerns. [facility] 01-02-2025 History of Present illness Narrative NEUROSURGERY [...] compression fracture of T11 vertebra, initial encounter ([facility]) XR lumbar spine 4-5 view XR THORACIC [...] Lung cancer Father documented in this encounter [facility] 01-01-2025 Telephone encounter Note CD READY FOR FORMAL SERVICE WAITER AT [facility] 01-01-2025 Miscellaneous Notes CD READY FOR FORMAL SERVICE WAITER AT [facility] Patient calling asking to have Lumbar xrays that were done 09/11/2024 put on a disc please. Patient has appt on 01/[address] Lorenzo. Advised patient to tack picker disc on Wednesday at specialty center Radiology desk. If any problem please call patient. Thank you documented in this encounter [facility] 12-30-2024 History of Present illness Narrative [...] PATIENT PRESENTS WITH AN IMPLANTABLE OR ATTACHED PERMACULTURE CONTRACTOR: No RADIOLOGY DEPARTMENT: MR; Exam(s) Completed: Spine: Lumbar spine. Lavender Administered: No PERIPHERAL IV DATA: Not applicable SIGNED BY: RT Ruma(Kb) December 30, 2024 8:52 AM documented in this encounter [facility] 12-30-2024 Note HNO ID: [id number] Author: TJ MOREL RT(R) Service: ? Author Type: Director Of Residential Services Type: Progress Notes Filed: 12/30/2024 08:52 Note [...] PATIENT PRESENTS WITH AN IMPLANTABLE OR ATTACHED PERMACULTURE CONTRACTOR: No RADIOLOGY DEPARTMENT: MR; Exam(s) Completed: Spine: Lumbar spine. [place] Administered: No PERIPHERAL IV DATA: Not applicable SIGNED BY: RT Ruma(Kb) December 30, 2024 8:52 AM [facility] 12-29-2024 Telephone encounter Note Patient scheduled [facility] 12-29-2024 Miscellaneous Notes Patient scheduled Pcp [...] a few sessions, Patient presented at [facility] asking for orders for MRI of the spine as Dr. Christianson in the last office visit cleared the patient to be seen by Dr. Prince Lorenzo, a neurosurgeon. Dr. Lorenzo's office is wanting an MRI completed prior to her scheduled office visit on 01/02/25. Please advise/assist. Amy Alex documented in this encounter [facility] 12-27-2024 Telephone encounter Note Pcp ordered the test. Please call pt to arrange. [facility] 12-27-2024 Telephone encounter Note Filed lumbar MRI for acute and chronic back pain with history of back surgery. Filed stat to see if can get soon. [facility] 12-27-2024 Telephone encounter Note Patient calling asking to have Lumbar xrays that were done 09/11/2024 put on a disc please. Patient has appt on 01/[address] Lorenzo. Advised patient to tack picker disc on Wednesday at specialty center Radiology desk. If any problem please call patient. Thank you [facility] 12-27-2024 Telephone encounter Note Patient calls [...] would be approved. Azalia Kingston RN T [facility] 12-27-2024 Telephone encounter Note Spoke with patient and she guesses it would be the lower portion ot the thoracic spine as she is having difficulty walking and standing up. She is going to contact Dr. Lorenzo to verify what area it is. Will return call once answered. [facility] 12-27-2024 Telephone encounter Note Verify pain [...] did not improve in a few sessions, [facility] 12-25-2024 Telephone encounter Note Patient presented at [facility] asking for orders for MRI of the spine as Dr. Christianson in the last office visit cleared the patient to be seen by Dr. Prince Lorenzo, a neurosurgeon. Dr. Lorenzo's office is wanting an MRI completed prior to her scheduled office visit on 01/02/25. Please advise/assist. Amy Alex [facility] 11-30-2024 History of Present illness Narrative Program_ID:[id number] Access Code: [email or web address] URL: [email or web address] Date: 11-30-2024 Prepared By: Danny Tucker Program [...] 11/30/2024 and treatment included: Therapeutic exercise and Self-chcf management. Updated: 11/30/24. Goals for Episode of Care: established 11/01/24 Patient reported outcome of physical function will increase T-score by a minimum 5 points. (NOT MET) [place] in home exercise program. (NOT MET, rx'd [...] Danny Tucker PT documented in this encounter [facility] 11-30-2024 Note HNO ID: [id number] Author: DANNY TUCKER PT Service: ? Author [...] 11/30/2024 and treatment included: Therapeutic exercise and Self-chcf management. Updated: 11/30/24. Goals for Episode of Care: established 11/01/24 Patient reported outcome of physical function will increase T-score by a minimum 5 points. (NOT MET) [place] in home exercise program. (NOT MET, rx'd [...] lean forward during gait. Antalgic with decreased raymudno. TREATMENT: Therapeutic Exercise: 1: Discussed patients condition [...] arriving late to appointment. Danny Tucker, PT [facility] 11-29-2024 Note HNO ID: [id number] Author: RUMA WESTFALL MD Service: ? Author [...] lisinopril (ZESTRIL) 40 mg tablet POTASSIUM ORAL JBNXMUWQ-VVURYWOUXOFRTV-NQP C ORAL atenolol (TENORMIN) 25 mg tablet gabapentin (NEURONTIN) 400 mg capsule atorvastatin (LIPITOR) 10 mg tablet montelukast (SINGULAIR) 10 mg tablet ubidecarenone Q-10 (CO Q-10) 10 mg cap pekjqrkm-qgeexl-tulhnnqc acid (COLLAGEN 1500 PLUS C) 500 mg-800 [...] daily; instructed pat (more content not included)... [facility] 11-29-2024 History of Present illness Narrative [...] lisinopril (ZESTRIL) 40 mg tablet POTASSIUM ORAL GTQEERVR-YKBFWKERRIVOHX-DJV C ORAL atenolol (TENORMIN) 25 mg tablet gabapentin (NEURONTIN) 400 mg capsule atorvastatin (LIPITOR) 10 mg tablet montelukast (SINGULAIR) 10 mg tablet ubidecarenone Q-10 (CO Q-10) 10 mg cap aqfaqhrk-zmnvdg-lilfafrf acid (COLLAGEN 1500 PLUS C) 500 mg-800 [...] any unintended typographical errors. Recording using ambient Firm58 software for draft documentation of the visit was discussed with the patient/authorized jewelry sales representative; all questions welcomed and answered. Patient/authorized jewelry sales representative agreed to proceed Ruma Westfall MD documented in this encounter [facility] 11-29-2024 Instructions Ruma Westfall MD - [...] then, please send me a message through [employer] or call the office. - Continue monitoring your memory and overall health. If you notice any behavioral changes, such as irritability, apathy, or depression, please inform me or your caregiver promptly. Let me know if you have any questions or concerns before your next visit. documented in this encounter [facility] 11-16-2024 Progress note Formatting of t his note might be different from the original. Mammogram had benign findings, 1 year screening mammogram advised. [facility] 11-16-2024 Miscellaneous Notes Mammogram had benign findings, 1 year screening mammogram advised. documented in this encounter [facility] 11-10-2024 Telephone encounter Note Patient has [...] 02/21/2025 Please advise. Thank you. Umu Núñez. [facility] 11-10-2024 Miscellaneous Notes Patient has been [...] you. Umu Núñez. documented in this encounter [facility] 11-07-2024 History of Present illness Narrative [...] PATIENT PRESENTS WITH AN IMPLANTABLE OR ATTACHED PERMACULTURE CONTRACTOR: No RADIOLOGY DEPARTMENT: MR; Exam(s) Completed: Head: QUANT PERIPHERAL IV DATA: Not applicable SIGNED BY: JANNA Rubio November 07, 2024 1:16 PM documented in this encounter [facility] 11-07-2024 Note HNO ID: [id number] Author: KIM TOSCANO MRI Tech Service: Radiology Author Type: Technologist [...] PATIENT PRESENTS WITH AN IMPLANTABLE OR ATTACHED PERMACULTURE CONTRACTOR: No RADIOLOGY DEPARTMENT: MR; Exam(s) Completed: Head: QUANT PERIPHERAL IV DATA: Not applicable SIGNED BY: Kim Toscano land development project manager November 07, 2024 1:16 PM [facility] 11-01-2024 Instructions Cee Christianson MD - [...] on February 21. documented in this encounter [facility] 11-01-2024 History of Present illness Narrative Program_ID:[id number] Access Code: [email or web address] URL: [email or web address] Date: 11-01-2024 Prepared By: Danny Tucker Program [...] increase T-score by a minimum 5 points. [place] in home exercise program. Patient will decrease [...] Planned: 4 Planned Treatment Interventions: Therapeutic exercise (58830), Neuromuscular re-education (65446), Manual therapy (36714), Therapeutic activities (07701), Self-chcf management (33715), Gait Training (51984), Body Mechanics Training, Patient/Family/Caregiver Education PLAN FOR [...] L3-S1) was in the early 1999's, states 0339-1143 per patient. Has pain with walking, pain [...] Lumbar Extension: Major limitation Lumbar R Side [place]: Major limitation Lumbar L Side [place]: Major limitation Lumbar R Side-Bend: Moderate limitation [...] Education TREATMENT: PT Treatment Interventions: Therapeutic Exercise, Self-Fci Management Evaluation Therapeutic Exercise: 1: Reviewed HEP [...] and tactile cuing. Patient education as noted. Self-Fci Management: 1: *Time spent on education and [...] Danny Tucker PT documented in this encounter [facility] 11-01-2024 Note HNO ID: [id number] Author: DANNY TUCKER PT Service: ? Author [...] increase T-score by a minimum 5 points. [place] in home exercise program. Patient will decrease [...] Planned: 4 Planned Treatment Interventions: Therapeutic exercise (48358), Neuromuscular re-education (83074), Manual therapy (91907), Therapeutic activities (59302), Self-chcf management (92591), Gait Training (41920), Body Mechanics Training, Patient/Family/Caregiver Education PLAN FOR [...] L3-S1) was in the early , states 0017-2221 per patient. Has pain with walking, pain [...] Flags Vertebral Fr (more content not included)... [facility] 10-17-2024 Telephone encounter Note The following approved medication requests have been transmitted electronically. Requested Prescriptions Pending Prescriptions Disp Refills lisinopril (ZESTRIL) 40 mg tablet 90 tablet 2 Sig: Take 1 tablet by mouth once daily. DOSE CHANGE - TAKE ONE DAILY Cee Christianson MD [facility] 10-17-2024 Miscellaneous Notes The following approved [...] 2024 3:11 PM documented in this encounter [facility] 10-16-2024 Telephone encounter Note The patient [...] Kingston RN October 16, 2024 3:[address] [facility] 10-09-2024 History of Present illness Narrative [...] PATIENT PRESENTS WITH AN IMPLANTABLE OR ATTACHED PERMACULTURE CONTRACTOR: No RADIOLOGY DEPARTMENT: Mammography PERIPHERAL IV DATA: Not applicable SIGNED BY: Pete Hernandez October 09, 2024 11:06 AM documented in this encounter [facility] 10-09-2024 Note HNO ID: [id number] Author: ELFEGO BURDICK Mammo Tech Service: ? Author Type: Director Of Residential Services Type: Progress Notes Filed: 10/09/2024 11:12 Note [...] PATIENT PRESENTS WITH AN IMPLANTABLE OR ATTACHED PERMACULTURE CONTRACTOR: No RADIOLOGY DEPARTMENT: Mammography PERIPHERAL IV DATA: Not applicable SIGNED BY: Pete Hernandez October 09, 2024 11:06 AM [facility] 10-05-2024 Note HNO ID: [id number] Author: SUZANNE DODD LPN Service: ? Author Type: LICENSED NURSE Type: Progress Notes Filed: 10/05/2024 17:54 Note Text: Patient presents for geriatric consult with daughter Holly Sharp. Rooming intake completed with patient to ensure accuracy. PHQ-9, MOCA reviewed with patient and entered into questionnaires. Suzanne Dodd LPN [facility] 10-05-2024 History of Present illness Narrative Patient presents for geriatric consult with daughter Holly Sharp. Rooming intake completed with patient to ensure accuracy. PHQ-9, MOCA reviewed with patient and entered into questionnaires. Suzanne Dodd LPN [facility] Initial Consult Susan Calderon [...] secure location? No Social History: Primary language: [place] Marital Status: Living situation: Home w/ Family, family lives with her for over a year now. Socially engaged? (participates in activities such as clubs, scientologist, community center, sports, games, visiting friends/relatives, etc?): He he she has always been a stay at home person.except for daughter and son being with her or visiting. She does not socialize. Most of her friends . Caregiver [place] and Stress Are your feeling overwhelmed? NO [...] , Taking? Yes, Authorizing Provider Thuy Stewart APRN.POLICE RECORDS CLERK Medication gabapentin (NEURONTIN) 400 mg capsule, Sig [...] Yes, Authorizing Provider Cee Christianson MD Medication maahrtud-cedqoo-mcbbsvfx acid (COLLAGEN 1500 PLUS C) 500 mg-800 [...] vision impairment and wears glasses Follows with package center supervisor:YES Hearing - Hearing aid : Denies any [...] than 3 times she it got partially [place] Cognitive Exam (MOCA): 22/30 CDR Dementia Scale [...] any unintended typographical errors. Ruma Westfall MD [facility] documented in this encounter [facility] 10-05-2024 Note HNO ID: [id number] Author: RUMA WESTFALL MD Service: ? Author Type: Physician Type: Progress Notes Filed: 10/05/2024 17:54 Note Text: [facility] Initial Consult Susan Calderon [...] secure location? No Social History: Primary language: [place] Marital Status: Living situation: Home w/ Family, family lives with her for over a year now. Socially engaged? (participates in activities such as clubs, scientologist, community center, sports, games, visiting friends/relatives, etc?): He he she has always been a stay at home person.except for daughter and son being with her or visiting. She does not socialize. Most of her friends . Caregiver [place] and Stress Are your feeling overwhelmed? NO [...] as needed (crampin (more content not included)... [facility] 10-05-2024 Telephone encounter Note Patient phoned to report she is scheduled with Dr. Westfall at 9:30 today. Her daughter is driving from [facility] [facility] and the roads are bad- running late. Patient unsure if she will be late for appt. Patient will call back to let Dr. Westfall office know. Notified Suzanne in Dr. Westfall office. [facility] 10-05-2024 Miscellaneous Notes Patient phoned to report she is scheduled with Dr. Westfall at 9:30 today. Her daughter is driving from [facility] and the roads are bad- running late. Patient unsure if she will be late for appt. Patient will call back to let Dr. Westfall office know. Notified Suzanne in Dr. Westfall office. documented in this encounter [facility] 09-25-2024 Note HNO ID: [id number] Author: CEE CHRISTIANSON MD Service: ? Author Type: Physician Type: Progress Notes Filed: 11/01/2024 18:20 Note Text: This note was created using [employer]ower Microsystems[employer]. 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 She does not have a living will [...] Take by mouth two times a day. anhhcvln-fqfpzv-idksgrmf acid (COLLAGEN 1500 PLUS C) 500 mg-800 [...] AFTER USE fluticason (more content not included)... [facility] 09-25-2024 History of Present illness Narrative This note was created using [employer] Micro[employer]riter. 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 She does not have a living will [...] Take by mouth two times a day. rxfcahbs-gpximq-xiezjoqm acid (COLLAGEN 1500 PLUS C) 500 mg-800 [...] Abs Lymph 1.00 - 4.00 k/uL 1.50 [place]% % 9.0 Abs [place] <0.87 k/uL 0.46 [place]% % 3.1 Abs [...] follow up with Dr. Lorenzo or another clinical research specialist for further evaluation and management. - Recommended maintaining good posture and considering physical therapy exercises to alleviate discomfort. # Encounter for long-term current use of medication (Z71.329) - Reviewed current medication regimen including cyclobenzaprine, [...] the date of the service which included xxyb-af-ssgj patient care, completing clinical documentation, obtaining and/or reviewing separately obtained history, performing a medically appropriate examination, counseling and educating the patient/family/caregiver, ordering medications, tests, or procedures, communicating with other HCPs (not separately reported), communicating results to the patient/family/caregiver, and care coordination (not separately reported). Cee Christianson MD documented in this encounter [facility] 09-22-2024 History of Present illness Narrative [...] PATIENT PRESENTS WITH AN IMPLANTABLE OR ATTACHED PERMACULTURE CONTRACTOR: No RADIOLOGY DEPARTMENT: Ultrasound PERIPHERAL IV DATA: Not applicable SIGNED BY: Angella Tom RDMS RVT September 22, 2024 2:46 PM documented in this encounter [facility] 09-22-2024 Note HNO ID: [id number] Author: ANGELLA TOM RDMS Service: ? Author Type: Computer Hardware Engineer Type: Progress Notes Filed: 09/22/2024 14:46 Note [...] PATIENT PRESENTS WITH AN IMPLANTABLE OR ATTACHED PERMACULTURE CONTRACTOR: No RADIOLOGY DEPARTMENT: Ultrasound PERIPHERAL IV DATA: Not applicable SIGNED BY: Angella Tom RDMS RVT September 22, 2024 2:46 PM [facility] 09-21-2024 Note HNO ID: [id number] Author: PRADEEP BLANTON MD Service: ? Author Type: Physician Type: Progress Notes Filed: 09/22/2024 00:28 Note Text: This note was created using [employer]. Subjective Patient presents with: Express Care follow-up [...] Take by mouth two times a day. rwwjimga-onggsc-lhognqya acid (COLLAGEN 1500 PLUS C) 500 mg-800 [...] Physical Exam Constituti (more content not included)... [facility] 09-21-2024 History of Present illness Narrative [...] Take by mouth two times a day. lzcmihcz-lstbff-vuobzyvn acid (COLLAGEN 1500 PLUS C) 500 mg-800 [...] Pradeep Blanton MD documented in this encounter [facility] 09-13-2024 Telephone encounter Note Patient contacted and given message below and verbalized understanding. Rosita Vazquez RN [facility] 09-13-2024 Miscellaneous Notes Patient contacted and given message below and verbalized understanding. Rosita Vazquez RN Please let patient know her urine culture did reveal a UTI. I have [facility] an [facility] Take this as prescribed. documented in this encounter [facility] 09-13-2024 Telephone encounter Note Please let patient know her urine culture did reveal a UTI. I have sent an [facility]. Take this as prescribed. [facility] 09-11-2024 History of Present illness Narrative [...] PATIENT PRESENTS WITH AN IMPLANTABLE OR ATTACHED PERMACULTURE CONTRACTOR: No RADIOLOGY DEPARTMENT: General X-ray: Exam(s) Completed: Spine X-Ray(s): Lumbar AP / LAT / L5-S1 PERIPHERAL IV DATA: Not applicable SIGNED BY: RT Paulina(R) September 11, 2024 10:03 AM documented in this encounter [facility] 09-11-2024 Note HNO ID: [id number] Author: BOBBY ADAME RT(R) Service: ? Author Type: Director Of Residential Services Type: Progress Notes Filed: 09/11/2024 10:20 Note [...] PATIENT PRESENTS WITH AN IMPLANTABLE OR ATTACHED PERMACULTURE CONTRACTOR: No RADIOLOGY DEPARTMENT: General X-ray: Exam(s) Completed: Spine X-Ray(s): Lumbar AP / LAT / L5-S1 PERIPHERAL IV DATA: Not applicable SIGNED BY: RT Paulina(R) September 11, 2024 10:03 AM [facility] 09-11-2024 Note HNO ID: [id number] Author: JEAN KIM PA Service: ? Author Type: Physician Section Housekeeper Type: Progress Notes Filed: 09/11/2024 10:44 Note Text: This note was created using [employer]. Subjective Susan Calderon is a 69 year [...] Take by mouth two times a day. fvedupuc-cxskjt-pbackpjw acid (COLLAGEN 1500 PLUS C) 500 mg-800 [...] use: No Revi (more content not included)... [facility] 09-11-2024 History of Present illness Narrative This note was created using [employer]. Subjective Susan Calderon is a 69 year [...] Take by mouth two times a day. yfnngevy-deeypa-iosjujnm acid (COLLAGEN 1500 PLUS C) 500 mg-800 [...] continue these. - XR LUMBAR GENERAL 3V AP/LAT/B8-J8-okefnbw no acute fracture. Unchanged retrolisthesis on L3 [...] evaluation. ROSANGELA Paige documented in this encounter [facility] 08-12-2024 Telephone encounter Note The following approved medication requests have been transmitted electronically. Requested Prescriptions Pending Prescriptions Disp Refills cyclobenzaprine (FLEXERIL) 5 mg tablet 180 tablet 1 Sig: Take 1-2 tablets by mouth three times a day as needed (cramping and muscle spasm). Cee Christianson MD [facility] 08-12-2024 Miscellaneous Notes The following approved [...] advise. Joan Tinajero documented in this encounter [facility] 08-11-2024 Telephone encounter Note Patient has [...] spasm). Please review and advise. Joan Tinajero [facility] 05-24-2024 Note Formatting of this n ote might be different from the original. The patient received a copy of Colonoscopy discharge instructions that contain information for how to contact the physician who performed the procedure and when to seek medical care. [facility] 05-24-2024 Miscellaneous Notes The patient received a copy of Colonoscopy discharge instructions that contain information for how to contact the physician who performed the procedure and when to seek medical care. documented in this encounter [facility] 05-24-2024 Note HNO ID: [id number] Author: LUZ PEPE RN Service: ? Author Type: Registered Nurse Type: Nursing Progress Note Filed: 05/24/2024 11:12 Note Text: Abdomen soft non-distended. Will continue to monitor. [facility] 05-24-2024 Nurse Note Abdomen soft non-distended. Will continue to monitor. [facility] 05-24-2024 Nurse Note Abdomen soft non-distended. Will continue to monitor. documented in this encounter [facility] 05-24-2024 History of Present illness Narrative [...] mouth two times a day. 05/23/2024 Yes htwnjrvd-imhpqq-ugilqbnt acid (COLLAGEN 1500 PLUS C) 500 mg-800 [...] TIME: 8:18 PM documented in this encounter [facility] 05-24-2024 Note HNO ID: [id number] Author: MATIAS ZAPATA DO Service: General Surgery [...] mouth two times a day. 05/23/2024 Yes rpumkdca-ybbbtt-zvogvjcg acid (COLLAGEN 1500 PLUS C) 500 mg-800 [...] Medication and Non-Pharmacol (more content not included)... [facility] 05-15-2024 Telephone encounter Note Phoned patient and given provider's message below with verbalized understanding. Patient agreeable. [facility] 05-15-2024 Miscellaneous Notes Phoned patient and [...] sip of water. documented in this encounter [facility] 05-14-2024 Telephone encounter Note For just [...] aspirin, may continue aspirin as noted above. [facility] 05-04-2024 Telephone encounter Note Pt walked [...] and lisinopril with a sip of water. [facility] 04-21-2024 Note Addended by: CEE GUEVARA on: 04/21/2024 09:30 PM Modules accepted: Orders [facility] 04-21-2024 Miscellaneous Notes Addended by: CEE [...] CHRISTIANSON MD Please send Golytely script to [facility] [address] [place] [id number] documented in this encounter [facility] 04-21-2024 Telephone encounter Note The following approved medication requests have been transmitted electronically. Requested Prescriptions Signed Prescriptions Disp Refills peg 3350-Electrolytes (GOLYTELY) 236-22.74-6.74 -5.86 gram suspension 1 Each 0 Sig: Take 4,000 mL by mouth one time only for 1 dose. As instructed Authorizing Provider: CEE CHRISTIANSON MD [facility] 04-21-2024 Telephone encounter Note Please send Golytely script to [facility] [address] [place] [address] [facility] Work Phone: 03-30-2024 Telephone encounter Note Patient notified of provider's instructions. Patient verbalizes understanding. Amy Muller RN [facility] 03-30-2024 Miscellaneous Notes Patient notified of [...] three times daily. Patient said she uses [facility] for her pharmacy. If she is not home can leave message for her. Please advise Patient calling today to request medication gabapentin(NEURONTIN 300 MG CAP) Patient is asking if she could increase the dosage because she is having increased spine pain. Patient last seen - 02/21/24 Future appointment scheduled: yes [facility]ACY[facility] documented in this encounter [facility] 03-29-2024 Telephone encounter Note Called and left a voicemail for the Patient to call back and ask for a nurse to receive the providers message. Ariana Cherry RN [facility] 03-29-2024 Telephone encounter Note Will okay [...] 180 days. Authorizing Provider: CEE CHRISTIANSON MD [facility] 03-29-2024 Telephone encounter Note Phoned patient [...] three times daily. Patient said she uses [facility] for her pharmacy. If she is not home can leave message for her. Please advise [facility] 03-29-2024 Telephone encounter Note Patient calling today to request medication gabapentin(NEURONTIN 300 MG CAP) Patient is asking if she could increase the dosage because she is having increased spine pain. Patient last seen - 02/21/24 Future appointment scheduled: yes PHARMACY: [facility] 03-29-2024 Telephone encounter Note Prescription Refill [...] Maite Molina March 29, 2024 2:[address] [facility] 03-29-2024 Miscellaneous Notes Prescription Refill Information [...] 2024 2:44 PM documented in this encounter [facility] 02-21-2024 Instructions Cee Christianson MD - [...] If you do not have a responsible non cdl driver (family member or friend) with you to take you home, your exam cannot be done with sedation and will be cancelled. Please bring a list of all of your current medications, including any Vqqf-ptl-Dhrhsts medications with you. Medications If you take [...] exam. 2 07/2019 documented in this encounter [facility] 02-21-2024 Note HNO ID: [id number] Author: CEE CHRISTIANSON MD Service: ? Author Type: Physician Type: Progress Notes Filed: 02/22/2024 00:05 Note Text: This note was created using [employer]. Subjective Susan Calderon is a 68 year [...] 57.0 Abs Kyle (more content not included)... [facility] 02-21-2024 History of Present illness Narrative This note was created using [employer]. Subjective Susan Calderon is a 68 year [...] Abs Lymph 1.00 - 4.00 k/uL 1.50 [place]% % 9.0 Abs [place] <0.87 k/uL 0.46 E[place]% % 3.1 Abs [...] the date of the service which included nsup-yx-vcvp patient care, completing clinical documentation, obtaining and/or reviewing separately obtained history, performing a medically appropriate examination, counseling and educating the patient/family/caregiver, ordering medications, tests, or procedures, independently interpreting results (not separately reported), and communicating results to the patient/family/caregiver. Cee Christianson MD documented in this encounter [facility] 02-16-2024 Note Patient Outreach (IN TMMN) SUSAN CALDERON ([id number]) 1955 F TXT Date Time Provider Department [...] for screening mammogram for breast cancer [Z12.31] Order(s):[facility] [[id number]] Order #: [id number] FUTURE Prescriptions as of 02/21/2024 - lisinopril [...] Encounter Status:Closed by MICHAEL MIRANDA on 02/21/24 [facility] 02-01-2024 Telephone encounter Note TC to patient who is notified paperwork has been placed in medical records for tack picker. RIGOBERTO Lafleur [facility] 02-01-2024 Miscellaneous Notes TC to patient who is notified paperwork has been placed in medical records for tack picker. RIGOBERTO Lafleur I will print this. Pt [...] pt and she will stop in and tack picker. Elke Gregorio LPN documented in this encounter [facility] 02-01-2024 Telephone encounter Note I will print this. [facility] 02-01-2024 Telephone encounter Note Pt calling [...] pt and she will stop in and tack picker. Elke Gregorio LPN [facility] 01-18-2024 Telephone encounter Note Pt notified and verbalized understanding. Sole Morris MA [facility] 01-18-2024 Miscellaneous Notes Pt notified and [...] drawn. Call pt on her cell phone [phone]. documented in this encounter [facility] 01-18-2024 Telephone encounter Note Fasting lipid panel ordered. Do with all other labs ordered. [facility] Work Phone: 01-18-2024 History of Present illness Narrative Pt had 2 sets of orders in by 2 different providers. One set discontinued. Order for lipid panel placed to have drawn with other labs. documented in this encounter [facility] 01-18-2024 Telephone encounter Note Pt saw [...] drawn. Call pt on her cell phone [phone]. [facility] 01-14-2024 Telephone encounter Note Patient has [...] found Please advise. Thank you. Joan Neal. [facility] 01-14-2024 Miscellaneous Notes Patient has been [...] you. Joan Neal. documented in this encounter [facility] 12-17-2023 History of Present illness Narrative [...] osteoarthritis predominantly in the medial compartment with fszd-bp-cnyr articulation MRI: None DIAGNOSIS Encounter Diagnosis ICD-10-CM [...] which included preparing to see the patient, pzdh-ln-wncg patient care, completing clinical documentation, obtaining and/or reviewing separately obtained history, performing a medically appropriate examination, counseling and educating the patient/family/caregiver, ordering medications, tests, or procedures, communicating with other HCPs (not separately reported), independently interpreting results (not separately reported), communicating results to the patient/family/caregiver, and care coordination (not separately reported). PROCEDURE: Large Joint Arthro/Inj: L knee joint Informed Consent Consent Obtained: Verbal [place] Protocol A moment to CARE was completed. [...] comment (brace prn) documented in this encounter [facility] 12-17-2023 History of Present illness Narrative Radiology Service Progress Note PATIENT NAME: Suasn Calderon DATE OF SERVICE: December 17, 2023 [...] PATIENT PRESENTS WITH AN IMPLANTABLE OR ATTACHED PERMACULTURE CONTRACTOR: No RADIOLOGY DEPARTMENT: General X-ray: Exam(s) Completed: Lower Extremity X-Ray(s): Knee, AP / Lat / Tunne / Merchant Left and Wt. Bearing PERIPHERAL IV DATA: Not applicable SIGNED BY: RT Aidee(R) December 17, 2023 10:53 AM documented in this encounter [facility] 12-14-2023 History of Present illness Narrative [...] appointment.. DAMIAN Hewitt documented in this encounter [facility] 10-04-2023 Miscellaneous Notes [facility] pharmacy calls and is asking for refills on medication. Called patient and patient states that she would rather have medications to all be sent to [facility]. Please send all future refills to [facility]. Amy Muller RN documented in this encounter [facility] 09-30-2023 Miscellaneous Notes Patient has been identified by name and date of : Yes, Provider Dr Chrsitianson Date 09/30/2023 Time 2:33 Patient phones for [...] you. Carly Fink. documented in this encounter [facility] 09-27-2023 Miscellaneous Notes Patient notified and [...] mg. Please advise. documented in this encounter [facility] 09-14-2023 History of Present illness Narrative [...] Take 500 mg by mouth once daily. MTBXORM-WJHM-LLVWN-OREG-CAPRYL ORAL Take 1 tablet by mouth once [...] 1 tablet by mouth daily at bedtime. JWKDXMJ-FDJLWMSTC-SLFS ORAL Take 1 tablet by mouth once [...] for immunization Z23 RSV PRINTED PHARMACY INSTRUCTIONS [employer] COVID-19 VACCINE (2022- [place]) AGE 12+ YR [...] Cee Christianson MD documented in this encounter [facility] 05-10-2023 Miscellaneous Notes Please clarify directions. [...] advise. Deanna Burns documented in this encounter [facility] 02-25-2023 Miscellaneous Notes Change of pharmacy [...] [place] Pss documented in this encounter [facility] 02-25-2023 Miscellaneous Notes Patient has been [...] 02/19/2023 138/72 Please advise. Thank you. Shante Evnas LPN Patient has been identified by name [...] advise. Sole Maria documented in this encounter [facility] 02-19-2023 Instructions Cee Christianson MD - 02/19/2023 11:10 AM EDT Labs anytime in the next 3 months. documented in this encounter [facility] 02-19-2023 History of Present illness Narrative Images from the original note were not included. This note was created using [employer]. Subjective Susan Calderon is a 67 year [...] Take 500 mg by mouth once daily. RRMPSYH-SAUD-YFSXR-OREG-CAPRYL ORAL Take 1 tablet by mouth once [...] Take 10 mg by mouth once daily. UVVVYYZ-RMEPEKIFH-LDZU ORAL Take 1 tablet by mouth once [...] Cee Christianson MD documented in this encounter [facility] 01-04-2023 History of Present illness Narrative [...] 2023 11:17 AM documented in this encounter [facility] 01-04-2023 History of Present illness Narrative [...] IV DATA: Not applicable SIGNED BY: Tree HernandezHongdianzhibo Ricky January 04, 2023 10:50 AM documented in this encounter [facility] 12-18-2022 History of Present illness Narrative [...] Take 250 mg by mouth once daily. MPCAMFG-BJBT-RSGVN-OREG-CAPRYL ORAL Take 1 tablet by mouth once [...] Take 400 Units by mouth once daily. DESVGLW-YLYPELPJU-YTAJ ORAL Take 1 tablet by mouth once [...] appointment.. DAMIAN Hewitt documented in this encounter [facility] 08-31-2022 History of Present illness Narrative [...] 2022 1:36 PM documented in this encounter [facility] 08-03-2022 Miscellaneous Notes Patient returned call and went over notes below from Zakia Sneed TEACHING ASSISTANT with understanding. LEFT MESSAGE FOR PATIENT TO CALL OFFICE. Left message for patient to return call to office. BPs look good. Continue unchanged for now Patient wanted to update provider on most recent blood pressure results since beginning new medication regiment. 07/31/22 12:30 128/82 pulse 68 1:00 129/80 pulse 69 2:00 1199/75 pulse 65 documented in this encounter [facility] 07-30-2022 Miscellaneous Notes Noted, agree. If [...] previously and currently. documented in this encounter [facility] 06-23-2022 Instructions Zakia Sneed APRN.CNS - 06/23/2022 2:38 PM EST Check to see if your insurance covers shingles vaccine and what location to get the vaccine -usually best covered at your local pharmacy where you get prescriptions filled documented in this encounter [facility] 06-23-2022 History of Present illness Narrative [...] <2.54 mg/dL 0.76 documented in this encounter [facility] 01-01-2022 Miscellaneous Notes January 01, 2022 PID: [id number] Susan Calderon [address] [phone] Dear Ms. Calderon, We are pleased to [...] report will be kept on file at [facility] as part of your permanent medical record and are available for your continuing care. Thank you for allowing us to help in meeting your health care needs. Sincerely, Dr. Manzano Interpreting Radiologist [facility] (Normal over 40) documented in this encounter [facility] 01-01-2022 History of Present illness Narrative [...] IV DATA: Not applicable SIGNED BY: Tree HernandezHongdianzhibo Ricky January 01, 2022 12:47 PM documented in this encounter [facility] 12-19-2021 History of Present illness Narrative Images from the original note were not included. This note was created using [employer]. Subjective Susan Calderon is a 66 year [...] Cee Christianson MD documented in this encounter [facility] 12-16-2021 Miscellaneous Notes Spoke with pt [...] Lucille Ji LPN documented in this encounter [facility] 04-17-2005 History of Past i llness Narrative Problem Noted Date Resolved Date Depressive disorder, not elsewhere classified 01/26/2021 documented as of this encounter (statuses as of 12/08/2021) [facility] History of Past illness Narrative* Problem Noted Date Resolved Date Depressive disorder, not elsewhere classified 01/26/2021 documented as of this encounter (statuses as of 12/16/2021) [facility] History of Past illness Narrative* Problem Noted Date Resolved Date Depressive disorder, not elsewhere classified 01/26/2021 documented as of this encounter (statuses as of 01/02/2022) [facility] History of Past illness Narrative* Problem Noted Date Resolved Date Depressive disorder, not elsewhere classified 01/26/2021 documented as of this encounter (statuses as of 01/03/2022) [place] [id number] History of Past illness Narrative* Problem Noted Date Resolved Date Depressive disorder, not elsewhere classified 01/26/2021 documented as of this encounter (statuses as of 02/12/2022) [address] History of Past illness Narrative* Problem Noted Date Resolved Date Depressive disorder, not elsewhere classified 01/26/2021 documented as of this encounter (statuses as of 02/20/2022) [address] History of Past illness Narrative* Problem Noted Date Resolved Date Depressive disorder, not elsewhere classified 01/26/2021 documented as of this encounter (statuses as of 06/25/2022) [address] History of Past illness Narrative* Problem Noted Date Resolved Date Depressive disorder, not elsewhere classified 01/26/2021 documented as of this encounter (statuses as of 07/30/2022) [place] [id number] History of Past illness Narrative* Problem Noted Date Resolved Date Depressive disorder, not elsewhere classified 01/26/2021 documented as of this encounter (statuses as of 08/03/2022) [place] [id number] History of Past illness Narrative* Problem Noted Date Resolved Date Depressive disorder, not elsewhere classified 01/26/2021 documented as of this encounter (statuses as of 08/31/2022) [facility] History of Past illness Narrative* Problem Noted Date Resolved Date Depressive disorder, not elsewhere classified 01/26/2021 documented as of this encounter (statuses as of 12/18/2022) [address] History of Past illness Narrative* Problem Noted Date Diagnosed Date Resolved Date Depressive disorder, not elsewhere classified 04/17/20 05 01/26/2021 documented as of this encounter (statuses as of 02/26/2023) [address] History of Past illness Narrative* Problem Noted Date Diagnosed Date Resolved Date Depressive disorder, not elsewhere classified 04/17/20 05 01/26/2021 documented as of this encounter (statuses as of 02/26/2023) [address] History of Past illness Narrative* Problem Noted Date Diagnosed Date Resolved Date Depressive disorder, not elsewhere classified 04/17/20 05 01/26/2021 documented as of this encounter (statuses as of 03/29/2023) [place] [id number] History of Past illness Narrative* Problem Noted Date Diagnosed Date Resolved Date Depressive disorder, not elsewhere classified 04/17/20 05 01/26/2021 documented as of this encounter (statuses as of 05/11/2023) [facility] History of Past illness Narrative* Problem Noted Date Diagnosed Date Resolved Date Depressive disorder, not elsewhere classified 04/17/20 05 01/26/2021 documented as of this encounter (statuses as of 06/20/2023) [place] [id number] History of Past illness Narrative* Problem Noted Date Diagnosed Date Resolved Date Depressive disorder, not elsewhere classified 04/17/20 05 01/26/2021 documented as of this encounter (statuses as of 06/20/2023) [place] [address]-02-2005 History of Past illness Narrative* Problem Noted Date Diagnosed Date Resolved Date Depressive disorder, not elsewhere classified 04/17/20 05 01/26/2021 documented as of this encounter (statuses as of 07/06/2023) [facility]09-[facility]2005 History of Past illness Narrative* Problem Noted Date Diagnosed Date Resolved Date Depressive disorder, not elsewhere classified 04/17/20 05 01/26/2021 documented as of this encounter (statuses as of 09/27/2023) [facility]2005 History of Past illness Narrative* Problem Noted Date Diagnosed Date Resolved Date Depressive disorder, not elsewhere classified 04/17/20 05 01/26/2021 documented as of this encounter (statuses as of 09/30/2023) [place] [address]-02-2005 History of Past illness Narrative* Problem Noted Date Diagnosed Date Resolved Date Depressive disorder, not elsewhere classified 04/17/20 05 01/26/2021 documented as of this encounter (statuses as of 10/04/2023) [place] [address]-02-2005 History of Past illness Narrative* Problem Noted Date Diagnosed Date Resolved Date Depressive disorder, not elsewhere classified 04/17/20 05 01/26/2021 documented as of this encounter (statuses as of 10/15/2023) [facility] Diagnosis Encounter for screening mammogram for breast cancer documented [facility] Diagnosis Essential hypertension Unspecified essential hypertension Allergic rhinitis, unspecified seasonality, unspecified trigger documented in this [facility] Diagnosis Encounter for screening mammogram for breast cancer documented [facility] Diagnosis Essential hypertension- Primary Unspecified essential [...] use of medication documented in this [facility] Diagnosis Asthma- Primary Unspecified asthma Need for shingles vaccine Need for prophylactic vaccination and inoculation against other viral diseases Screening for osteoporosis Special screening for osteoporosis Asymptomatic menopause Encounter for immunization Need for other specified prophylactic vaccination against single bacterial disease [facility] Diagnosis Primary hypertension- Primary Unspecified essential hypertension Tobacco use disorder Generalized anxiety disorder Obesity, Class II, BMI 35-39.9 Obesity, unspecified Encounter for screening mammogram for breast cancer Screening for osteoporosis Special screening for osteoporosis Asymptomatic menopause Screening for depression documented in this [facility] Diagnosis Primary hypertension Unspecified essential hypertension Essential hypertension Unspecified essential hypertension documented in this [facility] Diagnosis Essential hypertension Unspecified essential hypertension documented in this [facility] Diagnosis Pes anserinus bursitis of left [...] use of medication documented in this [facility] Diagnosis Encounter for screening mammogram for breast cancer documented in this [facility] Diagnosis Screening for osteoporosis Special screening for osteoporosis Asymptomatic menopause documented in this [facility] Diagnosis Primary hypertension- Primary Unspecified essential [...] single bacterial disease documented [facility] this [facility] Diagnosis Chronic pain of left knee- Primary Pain in joint, lower leg Allergic rhinitis, unspecified seasonality, unspecified trigger Medication management Encounter for long-term (current) use of other medications Encounter for therapeutic drug monitoring documented in this [facility] Diagnosis Left knee pain, unspecified chronicity- Primary [facility] Diagnosis Primary osteoarthritis of left knee- Primary Primary localized osteoarthrosis, lower leg Chronic pain of left knee Pain in joint, lower leg [facility] Diagnosis Left knee pain, unspecified chronicity documented in this [facility] Diagnosis Primary hypertension Unspecified essential hypertension documented in this [facility] Diagnosis Hypercholesteremia- Primary Pure hypercholesterolemia documented in this [facility] Diagnosis Encounter for screening mammogram for breast cancer documented in this [facility] Diagnosis Primary hypertension- Primary Unspecified essential [...] malignant neoplasms, colon documented in this [facility] Diagnosis Essential hypertension Unspecified essential hypertension documented in this [facility] Diagnosis Encounter for screening colonoscopy- Primary Special screening for malignant neoplasms, colon Screening for colon cancer Special screening for malignant neoplasms, colon documented in this [facility] Diagnosis Urinary frequency- Primary Acute midline low back pain with right-sided sciatica Acute midline low back pain with right-sided sciatica documented in this [facility] Diagnosis Acute midline low back pain with right-sided sciatica documented in this [facility] Diagnosis Urinary tract infection without hematuria, site unspecified- Primary Right-sided low back pain without sciatica, unspecified chronicity documented in this [facility] Diagnosis Urinary tract infection without hematuria, site unspecified Right-sided low back pain without sciatica, unspecified chronicity documented in this [facility] Diagnosis Memory deficit- Primary Memory loss Cognitive impairment, mild, so stated Mild cognitive impairment, so stated Gait instability Abnormality of gait Balance disorder Other symptoms involving nervous and musculoskeletal systems documented in this [facility] Diagnosis Encounter for screening mammogram for breast cancer documented in this [facility] Diagnosis Primary hypertension Unspecified essential hypertension documented in this [facility] Diagnosis Gait instability- Primary Abnormality of gait documented in this [facility] Diagnosis Memory deficit- Primary Memory loss [...] for breast cancer documented in this [facility]* Diagnosis Cognitive impairment, mild, so stated Mild cognitive impairment, so stated documented in this [facility]* Diagnosis Alzheimer's disease (HCC)- Primary Alzheimer's disease History of traumatic brain injury Personal history of traumatic brain injury documented in this [facility] Diagnosis Gait instability- Primary Abnormality of gait documented in this [facility]* Diagnosis Degeneration of intervertebral disc of lumbar region with discogenic back pain- Primary S/P lumbar spine operation Other postprocedural status Chronic midline low back pain without sciatica Acute midline low back pain without sciatica documented in this [facility] Diagnosis Degeneration of intervertebral disc of lumbar region with discogenic back pain S/P lumbar spine operation Other postprocedural status Chronic midline low back pain without sciatica Acute midline low back pain without sciatica documented in this encounter [facility] note* Diagnosis Lumbar stenosis with neurogenic claudication- Primary Closed wedge compression fracture of T11 vertebra, initial encounter ([facility]) Arachnoiditis Unspecified meningitis documented in this encounter [facility] note* Diagnosis Lumbar stenosis with neurogenic claudication- Primary Arachnoiditis Unspecified meningitis documented in this encounter [facility] note* Diagnosis Gait instability- Primary Abnormality of gait documented in this encounter [facility] note* Diagnosis Lumbar stenosis with neurogenic claudication- Primary Arachnoiditis Unspecified meningitis documented in this encounter [facility] note* Diagnosis Gait instability- Primary Abnormality of gait documented in this encounter [facility] note* Diagnosis Gait instability- Primary Abnormality of gait documented in this encounter [facility] note* Diagnosis Gait instability- Primary Abnormality of gait documented in this encounter [facility] for referral (narrative)* Diagnostic Procedure Only (Routine) - Pending Review Specialty Diagnoses / Procedures Referred By Rafael meyer Referred To Contact [facility] Diagnoses Encounter for screening mammogram for breast cancer Procedures NAVI SCREENING SCREENING MAMMOGRAPHY BI 2-VIEW BREAST INC Cee Vicente MD [address] [place] [address] [place] [address] Referral ID Status Reason Start Date Expiration Date Visits Requested Visits Authorized [id number] Pending Review Auto-Generat ed Referral 12/03/2021 01/02/2023 1 1 [facility] for referral (narrative)* Diagnostic Procedure Only (Routine) - Closed Specialty Diagnoses / Procedures Referred By Rafael meyer Referred To Contact [facility] Diagnoses Encounter for screening mammogram for breast cancer Procedures NAVI SCREENING SCREENING MAMMOGRAPHY BI 2-VIEW BREAST INC Cee Vicente MD [address] [place] [address] [facility] [place] [address] Referral ID Status Reason Start Date Expiration Date V isits Requested Visits Authorized [id number] Closed Auto-Generate d Referral 12/03/2021 01/02/2023 1 1 [facility] for referral (narrative)* Outpatient Procedure (Routine) - Pending Review Specialty Diagnoses / Procedures Referred By Contac t Referred To Contact [facility] Diagnoses Asthma Procedures SPIROMETRY - BASELINE AND POST DILATOR BRNCDILAT RSPSE SPMTRY PRE&POST-BRNCDILAT ADMZakia Cervantes APRN.CNS [address] [place] [id number] [facility] [address] [place] [address] Referral ID Status Reason Start Date Expiration Date Visits Requested Visits Authorized [id number] Pending Review Auto-Generat ed Referral 06/23/2022 07/23/2023 [address] [facility] [address] [facility] ([facility])* Diagnostic Procedure Only (Routine) - Authorized Specialty Diagnoses / Procedures Referred By Rafael t Referred To Contact [facility] Diagnoses Encounter for screening mammogram for breast cancer Procedures NAVI SCREENING SCREENING MAMMOGRAPHY BI 2-VIEW BREAST INC CAD Thuy Stewart APRN.POLICE RECORDS CLERK [address] [place] [address] [facility] [address] [place] [address] Referral ID Status Reason Start Date Expiration Date Visits Requested Visits Authorized [id number] Authorized Auto-Generat ed Referral 12/18/2022 01/17/2024 [facility] Diagnostic Procedure Only (Routine) - Closed Specialty Diagnoses / Procedures Referred By Contac t Referred To Contact [facility] Diagnoses Encounter for screening mammogram for breast cancer Procedures NAVI SCREENING SCREENING MAMMOGRAPHY BI 2-VIEW BREAST INC CAD Thuy Stewart APRN.CNP [address] [place] [address] [facility] [address] [place] [address] Referral ID Status Reason Start Date Expiration Date V isits Requested Visits Authorized [id number] Closed Auto-Generate d Referral 12/18/2022 01/17/2024 1 1 [facility] for referral (narrative)* Diagnostic Procedure Only (Routine) - Pending Review Specialty Diagnoses / Procedures Referred By Contac t Referred To Contact XR IMAGING Diagnoses Left knee pain, unspecified chronicity Procedures XR KNEE GENERAL 4V AP BOTH/PA BOTH/LAT/MERC LEFT RADIOLOGIC EXAM KNEE COMPLETE 4/MORE VIEWS Edgard Dubois PA-C [address] [address] [place] [address] Referral ID Status Reason Start Date Expiration Date Visits Requested Visits Authorized [id number] Pending Review Auto-Generat ed Referral 12/15/2023 01/13/2025 1 1 [facility] for referral (narrative)* Diagnostic Procedure Only (Routine) - Pending Review Specialty Diagnoses / Procedures Referred By Contac t Referred To Contact [facility] Diagnoses Encounter for screening mammogram for breast cancer Procedures NAVI SCREENING W KEVIN SCREENING DIGITAL BREAST TOMOSYNTHESIS BI SCREENING MAMMOGRAPHY BI 2-VIEW BREAST INC Cee Vicente MD [address] [place] [address] [facility] [address] [place] [address] Referral ID Status Reason Start Date Expiration Date Visits Requested Visits Authorized [id number] Pending Review Auto-Generat ed Referral 02/16/2024 03/17/2025 1 1 [facility] for referral (narrative)* Outpatient Procedure (Routine) - Pending Review Specialty Diagnoses / Procedures Referred By Contac t Referred To Contact [facility] Diagnoses Screening for colon cancer Procedures COLONOSCOPY SCREENING COLONOSCOPY FLX DX W/COLLJ SPEC WHEN PFRMChloe Songa D, MD [address] [place] [address] [facility] [address] [address] Referral ID Status Reason Start Date Expiration Date Visits Requested Visits Authorized [id number] Pending Review Auto-Generat ed Referral 02/21/2024 02/20/2025 1 1 [facility] for referral (narrative)* Outpatient Procedure (Routine) - Closed Specialty Diagnoses / Procedures Referred By Contac t Referred To Contact [facility] Diagnoses Screening for colon cancer Procedures COLONOSCOPY SCREENING COLONOSCOPY FLX DX W/COLLJ SPEC WHEN Cee Corbett MD [address] [place] [id number] [facility] Disease [place] [address] [place] [address] Referral ID Status Reason Start Date Expiration Date V isits Requested Visits Authorized [id number] Closed Auto-Generate d Referral 05/23/2024 07/21/2024 1 1 T [facility] for referral (narrative)* Diagnostic Procedure Only (Urgent) - Closed Specialty Diagnoses / Procedures Referred By Contac t Referred To Contact XR IMAGING Diagnoses Acute midline low back pain with right-sided sciatica Procedures XR LUMBAR GENERAL 3V AP/LAT/L5-S1 RADEX SPINE LUMBOSACRAL 2/3 VIEWS Jean Kim PA [address] [place] [address] [place] [address] Referral ID Status Reason Start Date Expiration Date V isits Requested Visits Authorized [id number] Closed Auto-Generate d Referral 09/11/2024 10/11/2025 1 1 [facility] for referral (narrative)* Diagnostic Procedure Only (Urgent) - Closed Specialty Diagnoses / Procedures Referred By Contac t Referred To Contact XR IMAGING Diagnoses Acute midline low back pain with right-sided sciatica Procedures XR LUMBAR GENERAL 3V AP/LAT/L5-S1 RADEX SPINE LUMBOSACRAL 2/3 VIEWS Jean Kim PA [address] [place] [address] [place] [address] Referral ID Status Reason Start Date Expiration Date V isits Requested Visits Authorized [id number] Closed Auto-Generate d Referral 09/11/2024 10/11/2025 1 1 [facility] for referral (narrative)* Diagnostic Procedure Only (Routine) - Authorized Specialty Diagnoses / Procedures Referred By Rafael t Referred To Contact [facility] IMAG[facility] Diagnoses Urinary tract infection without hematuria, site unspecified Acute left-sided low back pain without sciatica Procedures US KIDNEY/BLADDER US RETROPERITONEAL REAL TIME W/IMAGE COMPLETE Pradeep Blanton MD [facility] [place] [id number] [place] [address] Referral ID Status Reason Start Date Expiration Date Visits Requested Visits Authorized [id number] Authorized Auto-Generat ed Referral 09/21/2024 10/21/2025 1 1 [facility] for visit Narrative* Diagnostic Procedure Only (Routine) - Closed Specialty Diagnoses / Procedures [facility] To [facility] Diagnoses Encounter for screening mammogram for breast cancer Procedures NAVI SCREENING SCREENING MAMMOGRAPHY BI 2-VIEW BREAST INC CAD Cee Christianson MD [facility] [place] [address] [facility] [address] [place] [place] [address] Referral ID Status Reason Start Date Expiration Date V isits Requested Visits Authorized [id number] Closed Auto-Generate d Referral 12/03/2021 01/02/2023 1 1 [facility] for visit Narrative* Diagnostic Procedure Only (Routine) - Closed Specialty Diagnoses / Procedures [facility] Ref[facility] To Contact [facility] Diagnoses Encounter for screening mammogram for breast cancer Procedures NAVI SCREENING SCREENING MAMMOGRAPHY BI 2-VIEW BREAST INC CAD Thuy Stewart APRN.POLICE RECORDS CLERK [address] [place] [address] [facility] [address] [place] [address] Referral ID Status Reason Start Date Expiration Date V isits Requested Visits Authorized [id number] Closed Auto-Generate d Referral 12/18/2022 01/17/2024 1 1 [facility] for visit Narrative* Diagnostic Procedure Only (Routine) - Closed Specialty Diagnoses / Procedures Referred By Contac t Referred To Contact XR IMAGING Diagnoses Left knee pain, unspecified chronicity Procedures XR KNEE GENERAL 4V AP BOTH/PA BOTH/LAT/MERC LEFT RADIOLOGIC EXAM KNEE COMPLETE 4/MORE VIEWS Edgard Dubois PA-C [address] [address] [place] [address] Referral ID Status Reason Start Date Expiration Date V isits Requested Visits Authorized [id number] Closed Auto-Generate d Referral 12/15/2023 01/13/2025 1 1 [facility] for visit Narrative* Outpatient Procedure (Routine) - Closed Specialty Diagnoses / Procedures Referred By Contac t Referred To Contact [facility] Diagnoses Screening for colon cancer Procedures COLONOSCOPY SCREENING COLONOSCOPY FLX DX W/COLLJ SPEC WHEN PFCee Kimble MD [address] [place] [address] [facility] [address] [place] [address] Referral ID Status Reason Start Date Expiration Date V isits Requested Visits Authorized [id number] Closed Auto-Generate d Referral 05/23/2024 07/21/2024 1 1 [facility] for visit Narrative* Diagnostic Procedure Only (Urgent) - Closed Specialty Diagnoses / Procedures Referred By Contac t Referred To Contact XR IMAGING Diagnoses Acute midline low back pain with right-sided sciatica Procedures XR LUMBAR GENERAL 3V AP/LAT/L5-S1 RADEX SPINE LUMBOSACRAL 2/3 VIEWS Jean Kim PA [address] [place] [address] [place] [address] Referral ID Status Reason Start Date Expiration Date V isits Requested Visits Authorized [id number] Closed Auto-Generate d Referral 09/11/2024 10/11/2025 1 1 [facility] for visit Narrative* Diagnostic Procedure Only (Routine) - Closed Specialty Diagnoses / Procedures Referred By Rafael t Referred To Contact [facility] Diagnoses Encounter for screening mammogram for breast cancer Procedures NAVI SCREENING SCREENING MAMMOGRAPHY BI 2-VIEW BREAST INC CAD Cee Christianson MD [address] [place] [address] Phone: tel: fax: [facility] [address] [place] [address] Referral ID Status Reason Start Date Expiration Date V isits Requested Visits Authorized [id number] Closed Auto-Generate d Referral 09/25/2024 10/25/2025 1 1 [facility] for visit Narrative* MRI/CT (Routine) - Closed Specialty Diagnoses / Procedures Referred By Rafael t Referred To Contact MR IMAGING Diagnoses Cognitive impairment, mild, so stated Procedures MRI BRAIN W QUANT WO IVCON MRI BRAIN BRAIN STEM W/O CONTRAST MATERIAL Ruma Westfall MD [address] [place] [address] Phone: tel: fax: [place] [address] Referral ID Status Reason Start Date Expiration Date V isits Requested Visits Authorized [id number] Closed Auto-Generate d Referral 10/27/2024 12/26/2024 1 1 [facility] for visit Narrative* MRI/CT (Urgent) - Pending [...] W/O CONTRAST MATERIAL Cee Christianson MD [address] [place] [address] Phone: tel: fax: [place] [address] Referral ID Status Reason Start Date Expiration Date Visits Requested Visits Authorized [id number] Pending Review Auto-Genera brandi Referral Patient Cleared - Admin/Chair man/Directo r advise to proceed or did not respond 12/29/2024 02/25/2025 [address] [facility] Summary Purpose Family History No Family [...] left knee Procedures CONSULT TO ORTHOPAEDICS OFFICE/OUT[facility]IENT [facility]UTES Thuy Stewart APRN.POLICE RECORDS CLERK [address] [place] [address] Referral ID Status Reason Start Date Expiration Date Visits Requested Visits Authorized [id number] Authorized PCP Requested Referral 12/14/2023 12/13/2024 1 1 Additional Source Comments INFORMATION SOURCE (unrecogn ized section and content) DATE CREATED AUTHOR 02/17/2018 [facility] DATE CREATED AUTHOR AUTHOR'S ORGANIZ ATION 11/08/2024 [facility] DATE CREATED AUTHOR AUTHOR'S ORGANIZ ATION 12/31/2024 [facility] DATE CREATED AUTHOR AUTHOR'S ORGANIZ ATION 01/12/2025 [facility] DATE CREATED AUTHOR AUTHOR'S ORGANIZ ATION 02/13/2025 [facility] Source Comments (unrecognize d section and content) In the event this informatio n is protected by the Federal Confidentiality of Alcohol and Drug Abuse Patient Records regulations: The Federal rules restrict any use of the information to criminally investigate or prosecute any alcohol or drug abuse patient.[facility] the event this information is protected by the Federal Confidentiality of Alcohol and Drug Abuse Patient Records regulations: The Federal rules restrict any use of the information to criminally investigate or prosecute any alcohol or drug abuse patient.[facility] the event this information is protected by the Federal Confidentiality of Alcohol and Drug Abuse Patient Records regulations: The Federal rules restrict any use of the information to criminally investigate or prosecute any alcohol or drug abuse patient.[facility] the event this information is protected by the Federal Confidentiality of Alcohol and Drug Abuse Patient Records regulations: The Federal rules restrict any use of the information to criminally investigate or prosecute any alcohol or drug abuse patient.[facility] HospitalIn the event this information is protected by the Federal Confidentiality of Alcohol and Drug Abuse Patient Records regulations: The Federal rules restrict any use of the information to criminally investigate or prosecute any alcohol or drug abuse patient.[facility] HospitalIn the event this information is protected by the Federal Confidentiality of Alcohol and Drug Abuse Patient Records regulations: The Federal rules restrict any use of the information to criminally investigate or prosecute any alcohol or drug abuse patient.[facility] HospitalIn the event this information is protected by the Federal Confidentiality of Alcohol and Drug Abuse Patient Records regulations: The Federal rules restrict any use of the information to criminally investigate or prosecute any alcohol or drug abuse patient.[facility] HospitalIn the event this information is protected by the Federal Confidentiality of Alcohol and Drug Abuse Patient Records regulations: The Federal rules restrict any use of the information to criminally investigate or prosecute any alcohol or drug abuse patient.[facility] HospitalIn the event this information is protected by the Federal Confidentiality of Alcohol and Drug Abuse Patient Records regulations: The Federal rules restrict any use of the information to criminally investigate or prosecute any alcohol or drug abuse patient.[facility] HospitalIn the event this information is protected by the Federal Confidentiality of Alcohol and Drug Abuse Patient Records regulations: The Federal rules restrict any use of the information to criminally investigate or prosecute any alcohol or drug abuse patient.[facility] HospitalIn the event this information is protected by the Federal Confidentiality of Alcohol and Drug Abuse Patient Records regulations: The Federal rules restrict any use of the information to criminally investigate or prosecute any alcohol or drug abuse patient.[facility] HospitalIn the event this information is protected by the Federal Confidentiality of Alcohol and Drug Abuse Patient Records regulations: The Federal rules restrict any use of the information to criminally investigate or prosecute any alcohol or drug abuse patient.[facility] HospitalIn the event this information is protected by the Federal Confidentiality of Alcohol and Drug Abuse Patient Records regulations: The Federal rules restrict any use of the information to criminally investigate or prosecute any alcohol or drug abuse patient.[facility] HospitalIn the event this information is protected by the Federal Confidentiality of Alcohol and Drug Abuse Patient Records regulations: The Federal rules restrict any use of the information to criminally investigate or prosecute any alcohol or drug abuse patient.[facility] HospitalIn the event this information is protected by the Federal Confidentiality of Alcohol and Drug Abuse Patient Records regulations: The Federal rules restrict any use of the information to criminally investigate or prosecute any alcohol or drug abuse patient.[facility] HospitalIn the event this information is protected by the Federal Confidentiality of Alcohol and Drug Abuse Patient Records regulations: The Federal rules restrict any use of the information to criminally investigate or prosecute any alcohol or drug abuse patient.[facility] HospitalIn the event this information is protected by the Federal Confidentiality of Alcohol and Drug Abuse Patient Records regulations: The Federal rules restrict any use of the information to criminally investigate or prosecute any alcohol or drug abuse patient.[facility] HospitalIn the event this information is protected by the Federal Confidentiality of Alcohol and Drug Abuse Patient Records regulations: The Federal rules restrict any use of the information to criminally investigate or prosecute any alcohol or drug abuse patient.[facility] HospitalIn the event this information is protected by the Federal Confidentiality of Alcohol and Drug Abuse Patient Records regulations: The Federal rules restrict any use of the information to criminally investigate or prosecute any alcohol or drug abuse patient.[facility] HospitalIn the event this information is protected by the Federal Confidentiality of Alcohol and Drug Abuse Patient Records regulations: The Federal rules restrict any use of the information to criminally investigate or prosecute any alcohol or drug abuse patient.[facility] HospitalIn the event this information is protected by the Federal Confidentiality of Alcohol and Drug Abuse Patient Records regulations: The Federal rules restrict any use of the information to criminally investigate or prosecute any alcohol or drug abuse patient.[facility] HospitalIn the event this information is protected by the Federal Confidentiality of Alcohol and Drug Abuse Patient Records regulations: The Federal rules restrict any use of the information to criminally investigate or prosecute any alcohol or drug abuse patient.[facility] HospitalIn the event this information is protected by the Federal Confidentiality of Alcohol and Drug Abuse Patient Records regulations: The Federal rules restrict any use of the information to criminally investigate or prosecute any alcohol or drug abuse patient.[facility] HospitalIn the event this information is protected by the Federal Confidentiality of Alcohol and Drug Abuse Patient Records regulations: The Federal rules restrict any use of the information to criminally investigate or prosecute any alcohol or drug abuse patient.[facility] HospitalIn the event this information is protected by the Federal Confidentiality of Alcohol and Drug Abuse Patient Records regulations: The Federal rules restrict any use of the information to criminally investigate or prosecute any alcohol or drug abuse patient.[facility] HospitalIn the event this information is protected by the Federal Confidentiality of Alcohol and Drug Abuse Patient Records regulations: The Federal rules restrict any use of the information to criminally investigate or prosecute any alcohol or drug abuse patient.[facility] HospitalIn the event this information is protected by the Federal Confidentiality of Alcohol and Drug Abuse Patient Records regulations: The Federal rules restrict any use of the information to criminally investigate or prosecute any alcohol or drug abuse patient.[facility] HospitalIn the event this information is protected by the Federal Confidentiality of Alcohol and Drug Abuse Patient Records regulations: The Federal rules restrict any use of the information to criminally investigate or prosecute any alcohol or drug abuse patient.[facility] HospitalIn the event this information is protected by the Federal Confidentiality of Alcohol and Drug Abuse Patient Records regulations: The Federal rules restrict any use of the information to criminally investigate or prosecute any alcohol or drug abuse patient.[facility] HospitalIn the event this information is protected by the Federal Confidentiality of Alcohol and Drug Abuse Patient Records regulations: The Federal rules restrict any use of the information to criminally investigate or prosecute any alcohol or drug abuse patient.[facility] HospitalIn the event this information is protected by the Federal Confidentiality of Alcohol and Drug Abuse Patient Records regulations: The Federal rules restrict any use of the information to criminally investigate or prosecute any alcohol or drug abuse patient.[facility] HospitalIn the event this information is protected by the Federal Confidentiality of Alcohol and Drug Abuse Patient Records regulations: The Federal rules restrict any use of the information to criminally investigate or prosecute any alcohol or drug abuse patient.[facility] HospitalIn the event this information is protected by the Federal Confidentiality of Alcohol and Drug Abuse Patient Records regulations: The Federal rules restrict any use of the information to criminally investigate or prosecute any alcohol or drug abuse patient.[facility] HospitalIn the event this information is protected by the Federal Confidentiality of Alcohol and Drug Abuse Patient Records regulations: The Federal rules restrict any use of the information to criminally investigate or prosecute any alcohol or drug abuse patient.[facility] HospitalIn the event this information is protected by the Federal Confidentiality of Alcohol and Drug Abuse Patient Records regulations: The Federal rules restrict any use of the information to criminally investigate or prosecute any alcohol or drug abuse patient.[facility] HospitalIn the event this information is protected by the Federal Confidentiality of Alcohol and Drug Abuse Patient Records regulations: The Federal rules restrict any use of the information to criminally investigate or prosecute any alcohol or drug abuse patient.[facility] HospitalIn the event this information is protected by the Federal Confidentiality of Alcohol and Drug Abuse Patient Records regulations: The Federal rules restrict any use of the information to criminally investigate or prosecute any alcohol or drug abuse patient.[facility] HospitalIn the event this information is protected by the Federal Confidentiality of Alcohol and Drug Abuse Patient Records regulations: The Federal rules restrict any use of the information to criminally investigate or prosecute any alcohol or drug abuse patient.[facility] HospitalIn the event this information is protected by the Federal Confidentiality of Alcohol and Drug Abuse Patient Records regulations: The Federal rules restrict any use of the information to criminally investigate or prosecute any alcohol or drug abuse patient.[facility] HospitalIn the event this information is protected by the Federal Confidentiality of Alcohol and Drug Abuse Patient Records regulations: The Federal rules restrict any use of the information to criminally investigate or prosecute any alcohol or drug abuse patient.[facility] HospitalIn the event this information is protected by the Federal Confidentiality of Alcohol and Drug Abuse Patient Records regulations: The Federal rules restrict any use of the information to criminally investigate or prosecute any alcohol or drug abuse patient.[facility] HospitalIn the event this information is protected by the Federal Confidentiality of Alcohol and Drug Abuse Patient Records regulations: The Federal rules restrict any use of the information to criminally investigate or prosecute any alcohol or drug abuse patient.[facility] HospitalIn the event this information is protected by the Federal Confidentiality of Alcohol and Drug Abuse Patient Records regulations: The Federal rules restrict any use of the information to criminally investigate or prosecute any alcohol or drug abuse patient.[facility] HospitalIn the event this information is protected by the Federal Confidentiality of Alcohol and Drug Abuse Patient Records regulations: The Federal rules restrict any use of the information to criminally investigate or prosecute any alcohol or drug abuse patient.[facility] HospitalIn the event this information is protected by the Federal Confidentiality of Alcohol and Drug Abuse Patient Records regulations: The Federal rules restrict any use of the information to criminally investigate or prosecute any alcohol or drug abuse patient.[facility] HospitalIn the event this information is protected by the Federal Confidentiality of Alcohol and Drug Abuse Patient Records regulations: The Federal rules restrict any use of the information to criminally investigate or prosecute any alcohol or drug abuse patient.[facility] HospitalIn the event this information is protected by the Federal Confidentiality of Alcohol and Drug Abuse Patient Records regulations: The Federal rules restrict any use of the information to criminally investigate or prosecute any alcohol or drug abuse patient.[facility] HospitalIn the event this information is protected by the Federal Confidentiality of Alcohol and Drug Abuse Patient Records regulations: The Federal rules restrict any use of the information to criminally investigate or prosecute any alcohol or drug abuse patient.[facility] the event this information is protected by the Federal Confidentiality of Alcohol and Drug Abuse Patient Records regulations: The Federal rules restrict any use of the information to criminally investigate or prosecute any alcohol or drug abuse patient.[facility] HospitalIn the event this information is protected by the Federal Confidentiality of Alcohol and Drug Abuse Patient Records regulations: The Federal rules restrict any use of the information to criminally investigate or prosecute any alcohol or drug abuse patient.[facility] HospitalIn the event this information is protected by the Federal Confidentiality of Alcohol and Drug Abuse Patient Records regulations: The Federal rules restrict any use of the information to criminally investigate or prosecute any alcohol or drug abuse patient.[facility] HospitalIn the event this information is protected by the Federal Confidentiality of Alcohol and Drug Abuse Patient Records regulations: The Federal rules restrict any use of the information to criminally investigate or prosecute any alcohol or drug abuse patient.[facility] HospitalIn the event this information is protected by the Federal Confidentiality of Alcohol and Drug Abuse Patient Records regulations: The Federal rules restrict any use of the information to criminally investigate or prosecute any alcohol or drug abuse patient.[facility] HospitalIn the event this information is protected by the Federal Confidentiality of Alcohol and Drug Abuse Patient Records regulations: The Federal rules restrict any use of the information to criminally investigate or prosecute any alcohol or drug abuse patient.[facility] HospitalIn the event this information is protected by the Federal Confidentiality of Alcohol and Drug Abuse Patient Records regulations: The Federal rules restrict any use of the information to criminally investigate or prosecute any alcohol or drug abuse patient.[facility] HospitalIn the event this information is protected by the Federal Confidentiality of Alcohol and Drug Abuse Patient Records regulations: The Federal rules restrict any use of the information to criminally investigate or prosecute any alcohol or drug abuse patient.[facility] HospitalIn the event this information is protected by the Federal Confidentiality of Alcohol and Drug Abuse Patient Records regulations: The Federal rules restrict any use of the information to criminally investigate or prosecute any alcohol or drug abuse patient.[facility] HospitalIn the event this information is protected by the Federal Confidentiality of Alcohol and Drug Abuse Patient Records regulations: The Federal rules restrict any use of the information to criminally investigate or prosecute any alcohol or drug abuse patient.[facility] HospitalIn the event this information is protected by the Federal Confidentiality of Alcohol and Drug Abuse Patient Records regulations: The Federal rules restrict any use of the information to criminally investigate or prosecute any alcohol or drug abuse patient.[facility] HospitalIn the event this information is protected by the Federal Confidentiality of Alcohol and Drug Abuse Patient Records regulations: The Federal rules restrict any use of the information to criminally investigate or prosecute any alcohol or drug abuse patient.[facility] HospitalIn the event this information is protected by the Federal Confidentiality of Alcohol and Drug Abuse Patient Records regulations: The Federal rules restrict any use of the information to criminally investigate or prosecute any alcohol or drug abuse patient.[facility] HospitalIn the event this information is protected by the Federal Confidentiality of Alcohol and Drug Abuse Patient Records regulations: The Federal rules restrict any use of the information to criminally investigate or prosecute any alcohol or drug abuse patient.[facility] HospitalIn the event this information is protected by the Federal Confidentiality of Alcohol and Drug Abuse Patient Records regulations: The Federal rules restrict any use of the information to criminally investigate or prosecute any alcohol or drug abuse patient.[facility] HospitalIn the event this information is protected by the Federal Confidentiality of Alcohol and Drug Abuse Patient Records regulations: The Federal rules restrict any use of the information to criminally investigate or prosecute any alcohol or drug abuse patient.[facility] HospitalIn the event this information is protected by the Federal Confidentiality of Alcohol and Drug Abuse Patient Records regulations: The Federal rules restrict any use of the information to criminally investigate or prosecute any alcohol or drug abuse patient.[facility]In the event this information is protected by the Federal Confidentiality of Alcohol and Drug Abuse Patient Records regulations: The Federal rules restrict any use of the information to criminally investigate or prosecute any alcohol or drug abuse patient.[facility]In the event this information is protected by the Federal Confidentiality of Alcohol and Drug Abuse Patient Records regulations: The Federal rules restrict any use of the information to criminally investigate or prosecute any alcohol or drug abuse patient.[facility] HospitalIn the event this information is protected by the Federal Confidentiality of Alcohol and Drug Abuse Patient Records regulations: The Federal rules restrict any use of the information to criminally investigate or prosecute any alcohol or drug abuse patient.[facility] Care Teams (unrecognized sec tion and content) Computer Hardware Engineer Relationship Specialty Start Date End Date Cee Christianson MD [address] [place] [id number] PCP - General 06/24/02 Computer Hardware Engineer Relationship Specialty Start Date End Date Cee Christianson MD [address] [place] [id number] PCP - General 06/24/02 Computer Hardware Engineer Relationship Specialty Start Date End Date Cee Christianson MD [address] [place] [address] PCP - General 06/24/02 Computer Hardware Engineer Relationship Specialty Start Date End Date Cee Christianson MD [address] [place] [address] [place] [address] PCP - General 06/24/02 Computer Hardware Engineer Relationship Specialty Start Date End Date Cee Christianson MD [address] [place] [id number] PCP - General 06/24/02 Computer Hardware Engineer Relationship Specialty Start Date End Date Cee Christianson MD [address] [place] [address] PCP - General 06/24/02 Computer Hardware Engineer Relationship Specialty Start Date End Date Cee Christianson MD [address] [place] [address] PCP - General 06/24/02 Computer Hardware Engineer Relationship Specialty [place] [address] [place] [id number] PCP - General 06/24/02 Computer Hardware Engineer Relationship Specialty Start Date End Date Cee Christianson MD [address] [place] [address] PCP - General 06/24/02 Computer Hardware Engineer Relationship Specialty Start Date End Date Cee Christianson MD [address] [place] [id number] PCP - General 06/24/02 Computer Hardware Engineer Relationship Specialty Start Date End Date Cee Christianson MD [address] [place] [address] PCP - General 06/24/02 Computer Hardware Engineer Relationship Specialty Start Date End Date Cee Christianson MD [address] [place] [address] PCP - General 06/24/02 Computer Hardware Engineer Relationship Specialty Start Date End Date Cee Christianson MD [address] [place] [id number] PCP - General 06/24/02 Computer Hardware Engineer Relationship Specialty Start Date End Date Cee Christianson MD [address] [place] [id number] PCP - General 06/24/02 Computer Hardware Engineer Relationship Specialty Start Date End Date Cee Christianson MD [address] [place] [address] PCP - General 06/24/02 Computer Hardware Engineer Relationship Specialty Start Date End Date Cee Christianson MD [address] [place] [address] PCP - General 06/24/02 Computer Hardware Engineer Relationship Specialty Start Date End Date Cee Christianson MD [address] [place] [address] PCP - General 06/24/02 Computer Hardware Engineer Relationship Specialty Start Date End Date Cee Christianson MD [address] [place] [address] PCP - General 06/24/02 Computer Hardware Engineer Relationship Specialty Start Date End Date Cee Christianson MD [address] [place] [address] PCP - General 06/24/02 Computer Hardware Engineer Relationship Specialty Start Date End Date Cee Christianson MD [address] [place] [address] PCP - General 06/24/02 Computer Hardware Engineer Relationship Specialty Start Date End Date Cee Christianson MD [address] [place] [address] PCP - General 06/24/02 Computer Hardware Engineer Relationship Specialty Start Date End Date Cee Christianson MD [address] [place] [address] PCP - General 06/24/02 Computer Hardware Engineer Relationship Specialty Start Date End Date Cee Christianson MD [address] [place] [address] PCP - General 06/24/02 Computer Hardware Engineer Relationship Specialty Start Date End Date Cee Christianson MD [address] [place] [address] PCP - General 06/24/02 Computer Hardware Engineer Relationship Specialty Start Date End Date Cee Christianson MD [address] [place] [address] PCP - General 06/24/02 Computer Hardware Engineer Relationship Specialty Start Date End Date Cee Christianson MD [address] [place] [address] PCP - General 06/24/02 Computer Hardware Engineer Relationship Specialty Start Date End Date Cee Christiasnon MD [address] [place] [address] PCP - General 06/24/02 Computer Hardware Engineer Relationship Specialty Start Date End Date Cee Christianson MD [address] [place] [address] PCP - General 06/24/02 Computer Hardware Engineer Relationship Specialty Start Date End Date Cee Christianson MD [address] [place] [address] PCP - General 06/24/02 Computer Hardware Engineer Relationship Specialty Start Date End Date Cee Christianson MD [address] [place] [address] PCP - General 06/24/02 Computer Hardware Engineer Relationship Specialty Start Date End Date Cee Christianson MD [address] [place] [address] PCP - General 06/24/02 Zakia Sneed, 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 [address] [place] [address] [facility] 07/24/24 Thuy Stewart GUNSTOCK 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.POLICE RECORDS CLERK [address] [place] [address] [facility] 07/24/24 Computer Hardware Engineer Relationship Specialty Start Date End Date Cee Christianson MD [address] [place] [address] PCP - General 06/24/02 Zakia Sneed, GUNSTOCK 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.STUMP BLOWER [address] [place] [address] [facility] 07/24/24 Thuy Stewart GUNSTOCK 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.POLICE RECORDS CLERK [address] [place] [address] [facility] 07/24/24 Computer Hardware Engineer Relationship Specialty Start Date End Date Cee Christianson MD [address] [place] [address] PCP - General 06/24/02 Zakia Sneed, GUNSTOCK 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.STUMP BLOWER [address] [place] [address] [facility] 07/24/24 Thuy Stewart GUNSTOCK 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.POLICE RECORDS CLERK [address] [place] [address] [facility] 07/24/24 Computer Hardware Engineer Relationship Specialty Start Date End Date Cee Christianson MD [address] [place] [address] PCP - General 06/24/02 Zakia Sneed, GUNSTOCK 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.STUMP BLOWER [address] [place] [address] [facility] Internal Medicine 07/24/24 Thuy Stewart GUNSTOCK 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.POLICE RECORDS CLERK [address] [place] [address] [facility] 07/24/24 Computer Hardware Engineer Relationship Specialty Start Date End Date Cee Christianson MD [address] [place] [address] PCP - General 06/24/02 Zakia Sneed, GUNSTOCK 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.STUMP BLOWER [address] [place] [address] [facility] 07/24/24 Thuy Stewart GUNSTOCK 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.POLICE RECORDS CLERK [address] [place] [address] [facility] 07/24/24 Computer Hardware Engineer Relationship Specialty Start Date End Date Cee Christianson MD [address] [place] [address] PCP - General 06/24/02 Zakia Sneed, GUNSTOCK 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.STUMP BLOWER [address] [place] [address] [facility] 07/24/24 Thuy Stewart APRN.POLICE RECORDS CLERK [address] [place] [address] [facility] 07/24/24 Computer Hardware Engineer Relationship Specialty Start Date End Date Cee Christianson MD [address] [place] [address] PCP - General 06/24/02 Zakia Sneed APRN.STUMP BLOWER [address] [place] [address] [facility] 07/24/24 Thuy Stewart APRN.POLICE RECORDS CLERK [address] [place] [address] [facility] 07/24/24 Computer Hardware Engineer Relationship Specialty Start Date End Date Cee Christianson MD [address] [place] [address] PCP - General 06/24/02 Zakia Sneed APRN.STUMP BLOWER [address] [place] [address] [facility] 07/24/24 Thuy Stewart APRN.POLICE RECORDS CLERK [address] [facility] [place] [address] [facility] 07/24/24 Computer Hardware Engineer Relationship Specialty Start Date End Date Cee Christianson MD [address] [place] [address] PCP - General 06/24/02 Zakia Sneed, GUNSTOCK 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.STUMP BLOWER [address] [place] [address] [facility] 07/24/24 Thuy Stewart GUNSTOCK 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.POLICE RECORDS CLERK [address] [place] [address] [facility] 07/24/24 Computer Hardware Engineer Relationship Specialty Start Date End Date Cee Christianson MD [address] [place] [address] PCP - General 06/24/02 Zakia Sneed, GUNSTOCK 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.STUMP BLOWER [address] [place] [address] [facility] 07/24/24 Thuy Stewart GUNSTOCK 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.POLICE RECORDS CLERK [address] [place] [address] [facility] 07/24/24 Computer Hardware Engineer Relationship Specialty Start Date End Date Cee Christianson MD [address] [place] [address] PCP - General 06/24/02 Zakia Sneed, GUNSTOCK 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.STUMP BLOWER [address] [place] [address] [facility] 07/24/24 Thuy Stewart GUNSTOCK 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.POLICE RECORDS CLERK [address] [place] [address] [facility] 07/24/24 Computer Hardware Engineer Relationship Specialty Start Date End Date Cee Christianson MD [address] [place] [address] PCP - General 06/24/02 Zakia Sneed, GUNSTOCK 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.STUMP BLOWER [address] [place] [address] [facility] 07/24/24 Thuy Stewart GUNSTOCK 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.POLICE RECORDS CLERK [address] [place] [address] [facility] 07/24/24 Computer Hardware Engineer Relationship Specialty Start Date End Date Cee Christianson MD [address] [place] [address] PCP - General 06/24/02 Zakia Sneed, GUNSTOCK 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.STUMP BLOWER [address] [place] [address] [facility] 07/24/24 Thuy Stewart GUNSTOCK 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.POLICE RECORDS CLERK [address] [place] [address] [facility] 07/24/24 Computer Hardware Engineer Relationship Specialty Start Date End Date Cee Christianson MD [address] [place] [address] PCP - General 06/24/02 Zakia Sneed, GUNSTOCK 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.STUMP BLOWER [address] [place] [address] [facility] 07/24/24 Thuy Stewart GUNSTOCK 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.POLICE RECORDS CLERK [address] [place] [address] [facility] 11/07/24 Computer Hardware Engineer Relationship Specialty Start Date End Date Cee Christianson MD [address] [place] [address] PCP - General 06/24/02 Zakia Sneed, GUNSTOCK 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.STUMP BLOWER [address] [place] [address] [facility] 07/24/24 Thuy Stewart GUNSTOCK 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.POLICE RECORDS CLERK [address] [place] [address] [facility] 11/07/24 Computer Hardware Engineer Relationship Specialty Start Date End Date Cee Christianson MD [address] [place] [address] PCP - General 06/24/02 Zakia Sneed, GUNSTOCK 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.STUMP BLOWER [address] [place] [address] [facility] 07/24/24 Thuy Stewart GUNSTOCK 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.POLICE RECORDS CLERK [address] [place] [address] [facility] 07/24/24 11/03/24 Thuy Stewart GUNSTOCK 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.POLICE RECORDS CLERK [address] [place] [address] [facility] 11/07/24 Computer Hardware Engineer Relationship Specialty Start Date End Date Cee Christianson MD [address] [place] [address] PCP - General 06/24/02 Zakia Sneed, GUNSTOCK 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.STUMP BLOWER [address] [place] [address] [facility] 07/24/24 Thuy Stewart GUNSTOCK 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.POLICE RECORDS CLERK [address] [place] [address] [facility] 11/07/24 Computer Hardware Engineer Relationship Specialty Start Date End Date Cee Christianson MD [address] [place] [address] PCP - General 06/24/02 Zakia Sneed, GUNSTOCK 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.STUMP BLOWER [address] [place] [address] [facility] 07/24/24 Thuy Stewart GUNSTOCK 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.POLICE RECORDS CLERK [address] [place] [address] [facility] 11/07/24 Computer Hardware Engineer Relationship Specialty Start Date End Date Cee Christianson MD [address] [place] [address] PCP - General 06/24/02 Zakia Sneed, GUNSTOCK 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.STUMP BLOWER [address] [place] [address] [facility] 07/24/24 Thuy Stewart GUNSTOCK 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.POLICE RECORDS CLERK [address] [place] [address] [facility] 07/24/24 11/03/24 Thuy Stewart APRN.POLICE RECORDS CLERK [address] [place] [address] [facility] 11/07/24 Computer Hardware Engineer Relationship Specialty Start Date End Date Cee Christianson MD [address] [place] [address] PCP - General 06/24/02 Zakia Sneed, GUNSTOCK 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.STUMP BLOWER [address] [place] [address] [facility] 07/24/24 Thuy Stewart GUNSTOCK 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.POLICE RECORDS CLERK [address] [place] [address] [facility] 11/07/24 Computer Hardware Engineer Relationship Specialty Start Date End Date Cee Christianson MD [address] [place] [address] PCP - General 06/24/02 Zakia Sneed, GUNSTOCK 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.STUMP BLOWER [address] [place] [address] [facility] 07/24/24 Thuy Stewart GUNSTOCK 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.POLICE RECORDS CLERK [address] [place] [address] [facility] 11/07/24 Computer Hardware Engineer Relationship Specialty Start Date End Date Cee Christianson MD [address] [place] [address] PCP - General 06/24/02 Zakia Sneed, GUNSTOCK 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.STUMP BLOWER [address] [place] [address] [facility] 07/24/24 Thuy Stewart, GUNSTOCK 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.POLICE RECORDS CLERK [address] [place] [address] [facility] 11/07/24 Computer Hardware Engineer Relationship Specialty Start Date End Date Cee Christianson [address] [place] [address] PCP - General 06/22/19 Computer Hardware Engineer Relationship Specialty Start Date End Date Cee Christianson [address] [place] [address] PCP - General 06/22/19 Computer Hardware Engineer Relationship Specialty Start Date End Date Cee Christianson MD [address] [place] [address] PCP - General 06/24/02 Thuy Stewart, GUNSTOCK 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.POLICE RECORDS CLERK [address] [place] [address] [facility] 11/07/24 Zakia Sneed, FELIX.STUMP BLOWER [address] [place] [address] [facility] 01/03/25 Computer Hardware Engineer Relationship Specialty Start Date End Date Cee Christianson [address] [place] [address] PCP - General 06/22/19 Computer Hardware Engineer Relationship Specialty Start Date End Date Cee Christianson MD [address] [place] [address] PCP - General 06/24/02 Zakia Sneed, GUNSTOCK 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.STUMP BLOWER [address] [place] [address] [facility] 07/24/24 01/02/25 Thuy Stewart, GUNSTOCK 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.POLICE RECORDS CLERK [address] [place] [address] [facility] 11/07/24 Zakia Sneed, GUNSTOCK 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.STUMP BLOWER [address] [place] [address] [facility] 01/03/25 Computer Hardware Engineer Relationship Specialty Start Date End Date Cee Christianson MD [address] [place] [address] PCP - General 06/24/02 Zakia Sneed, GUNSTOCK 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.STUMP BLOWER [address] [place] [address] [facility] 07/24/24 01/02/25 Thuy Stewart, GUNSTOCK 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.POLICE RECORDS CLERK [address] [place] [address] [facility] 11/07/24 Zakia Sneed, GUNSTOCK 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.STUMP BLOWER [address] [place] [address] [facility] 01/03/25 Computer Hardware Engineer Relationship Specialty Start Date End Date Cee Christianson MD [address] [place], [place] [address] PCP - General 06/24/02 Thuy Stewart GUNSTOCK 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.POLICE RECORDS CLERK [address] [place] [address] [facility] 11/07/24 Zakia Sneed, GUNSTOCK 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.STUMP BLOWER [address] [place] [address] [facility] 01/03/25 Computer Hardware Engineer Relationship Specialty Start Date End Date Cee Christianson MD [address] [place] [address] PCP - General 06/24/02 Thuy Stewart GUNSTOCK 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.POLICE RECORDS CLERK [address] [place] [address] [facility] 11/07/24 Zakia Sneed, GUNSTOCK 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.STUMP BLOWER [address] [place] [address] [facility] 01/03/25 Computer Hardware Engineer Relationship Specialty Start Date End Date Cee Christianson MD [address] [place] [address] PCP - General 06/24/02 Thuy Stewart GUNSTOCK 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.POLICE RECORDS CLERK [address] [place] [address] [facility] 11/07/24 Zakia Sneed, GUNSTOCK 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.STUMP BLOWER [address] [place] [address] [facility] 01/03/25 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 Ruma Westfall MD [address] [place] [address] Phone: tel: fax: [facility] [address] [place] [address] Referral ID Status Reason Start Date Expiration Date Visits Requested Visits Authorized [id number] Authorized PCP Requested Referral Auto-Generate d Referral [...] left knee Procedures CONSULT TO ORTHOPAEDICS OFFICE/OUTPATIENT [facility] 60 MINUTES Thuy Stewart APRN.CNP [address] [place] [address] Referral ID Status Reason Start Date Expiration Date V isits Requested Visits Authorized [id number] Closed PCP Requested Referral 12/14/2023 12/13/2024 1 [...] REAL TIME W/IMAGE COMPLETE Pradeep Blanton MD [facility] [place] [address] Phone: tel: fax: [place] [address] Referral ID Status Reason Start Date Expiration Date V isits Requested Visits Authorized [id number] Closed Auto-Generate d Referral 09/21/2024 10/21/2025 1 1 Reason Comments Geriatric Evaluation Specialty Diagnoses / Procedures Referred By Contac t Referred To Contact Gerontology Diagnoses Memory deficit Procedures CONSULT TO GERIATRICS OFFICE/OUTPATIENT [facility] 60 MINUTES Cee Christianson MD [address] [place] [address] Phone: tel: fax: [place] [address] [place] [address] Phone: tel: fax: Referral ID Status Reason Start Date Expiration Date V isits Requested Visits Authorized [id number] Closed PCP Requested Referral 09/25/2024 09/25/2025 1 [...] COMPLEX 45 MINS Ruma Westfall MD [address] [place] [address] Phone: tel: fax: [facility] [address] [place] [address] Referral ID Status Reason Start Date Expiration Date V isits Requested Visits Authorized [id number] Closed Auto-Generate d Referral 08/16/2024 08/15/2025 1 1 Reason Comments Physical Reason Onset Date Comments Refill Request 11/10/2024 Reason Comments Follow Up Geriatric MRI follow up, w/daughter Holly Reason Comments Orders Reason Comments xrays on disc Reason Comments New Patient Needs spinal surgery Reason Onset Date Comments Population Health Navigation Outreach 01/16/[address] [facility] Workbeyannick Daina FOR RECORDS PERTAINING TO [...] BE BASED ON THE PRIMARY CLINICAL RECORDS. [facility]. provides no warranty or guarantee of the accuracy or completeness of information in this document.
--- OUTSIDE RECORDS SUMMARY | 2025-02-17 21:51 | XMS RPT_ITS | CCD ---
Author Organization [facility] Care Team Providers Care Band Saw Operator Cake Cutting Name Role Phone Talampas, Cee Unavailable Unavailable White, Nanci Unavailable Unavailable Slade Susan Unavailable Unavailable Paintsil, [place] Unavailable Unavailable Stefano Garcia Unavailable Unavailable Talampas, Cee Unavailable Unavailable Talampas, Cee Unavailable Unavailable Mendoza Kline Unavailable Unavailable Mendoza Kline Unavailable Unavailable Cee Christianson MD Primary Care Provider Cee Christianson MD Primary Care Provider Cee Christianson MD Primary Care Provider Cee Christianson MD Primary Care Provider Sneed CLERICAL AIDE TEACHER.EMT P, Zakia Unavailable Sunitha 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, Thuy Unavailable Sunitha 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, Thuy Unavailable Sunitha 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, Thuy Unavailable RUMA WESTFALL Referring Unavailable TALAMPAS, CEE D Primary Care Unavailable Sunitha 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, Thuy Unavailable TALAMPAS, CEE D Referring Unavailable TALAMPAS, CEE D Primary Care Unavailable Talampas, Cee D Primary Care Provider Sneed CLERICAL AIDE TEACHER.EMT P, Zakia Unavailable Sneed CLERICAL AIDE TEACHER.EMT P, Zakia Unavailable PRINCE LORENZO Attending Unavailable TALAMPAS, [...] Drug Allergy 02-28-20 19 Shortness of Breath [facility] Doxycycline (2 sources) Doxycycline Drug Allergy 02-28-20 19 Other: See Comments [facility] Work Phone: guaiFENesin / Pseudoephedrine (2 sources) guaiFENesin / Pseudoephedrine Drug Allergy 04-17-20 05 Intolerance [facility] Work Phone: [phone] NSAIDs (2 sources) nabumetone Drug Allergy 04-17-20 05 Swelling [facility] Penicillins (antibiotic) (2 sources) Penicillins Drug Allergy 04-17-20 05 Anaphylaxis, Shortness of Breath [facility] Work Phone: [phone] Quinolones (antibiotic) (2 sources) levoFLOXacin Drug Allergy 04-17-20 05 Other: See Comments [facility] Work Phone: (12 sources) Penicillins; Translations: [PENICILLINS] Drug allergy (disorder) 04-17-20 05 Anaphylaxis, Shortness of Breath [facility] (20 sources) Cephalosporins (Antibiotic); Translations: [CEPHALOSPORINS] Drug Allergy 02-28-20 19 Shortness of Breath [facility] (20 sources) Doxycycline; Translations: [DOXYCYCLINE] Drug Allergy 02-28-20 19 Other: See Comments, Other [facility] Work Phone: (20 sources) guaiFENesin / Pseudoephedrine; Translations: [PSEUDOEPHEDRINE-G UAIFENESIN] Drug Allergy 04-17-20 05 Intolerance, Other [facility] Work Phone: [phone] (20 sources) levoFLOXacin; Translations: [LEVOFLOXACIN] Drug Allergy 04-17-20 05 Other: See Comments [facility] Work Phone: (20 sources) nabumetone; Translations: [NABUMETONE] Drug Allergy 04-17-20 05 Swelling [facility] Work Phone: [phone] (4 sources) Penicillins Propensity to adverse reactions 04-17-20 05 Anaphylaxis, Shortness of Breath [facility] Work Phone: [phone] (20 sources) Cephalosporins (Antibiotic) Drug Allergy 02-28-20 19 Shortness of Breath [facility] (20 sources) Penicillins Propensity to adverse reactions 04-17-20 05 Anaphylaxis, Shortness of Breath [facility] Work Phone: [phone] (15 sources) Penicillins Propensity to adverse reactions 04-17-20 05 Anaphylaxis, Shortness of Breath [facility] Work Phone: [phone] (4 sources) nabumetone Drug Allergy 04-17-20 05 Swelling [facility] (4 sources) Penicillins Drug Allergy 04-17-20 05 Anaphylaxis, Shortness of breath [facility] Medications Current Medications Medication Drug Class(es) Dates Sig (Normalized) Sig (Original) [id number] 200 actuat albuterol 0.09 mg/actuat metered dose [...] Take 10 mg by mouth once daily. qlfxfcjj-idgejn-nxfaujdf acid (COLLAGEN 1500 PLUS C) 500 mg-800 mcg- 50 mg cap (20 sources) Start: 02-21-2024 collagen-bioti n-asco rbic acid (COLLAGEN 1500 PLUS C) 500 mg-800 mcg- 50 mg cap Take by mouth. 02/21/2024 Active Start: 02-21-2024 collagen-bioti n-ascorbic acid (COLLAGEN 1500 PLUS C) 500 mg- 800 mcg- 50 mg cap Take by mouth. 0 02/21/2024 Active BWUUOKYC-VQIHWNAUWCFSKP-LKB C ORAL (20 sources) COLLAGEN-GLYCOSA MINOGLY-VIT C [...] Comment on above: Take 1 tablet by [facility] three times daily as needed (cramping [...] Comment on above: Take 1 capsule by [facility] three times daily for 180 days. [...] breakfast. Active take 1 capsule by mo [facility] once daily at breakfast omega-3 DHA-EPA (FISH OIL) 1,200 (144-21 6) mg capsule Take 1 capsule by mouth daily with breakfast. 0 Active OTC NUTRITIONAL SUPPLEMENT (20 sources) OTC NUTRITIONAL SUPPLEMENT Take by mouth once daily. Prevagen Active OTC NUTRITIONAL SUPPLEMENT Prevagen Active OTC NUTRITIONAL SUPPLEMENT Prevagen 0 Active polyethylene glycol 3350 706287 mg / potassium chloride 2970 mg / sodium bicarbonate 6740 mg / sodium chloride 5860 mg / sodium sulfate 97358 mg powder for oral solution (1 source) [...] on above: Take 1 capsule by mo [facility] once daily. Completed/Discontinued Medications Medication Drug Class(es) [...] tablet by mouth once jose g y BJEXRIE-CIFFIZEHG-JGSA ORAL Take 1 tablet by mouth once daily. 0 Active Comment on above: Take 1 tablet by [facility] once daily. cholecalciferol 0.01 mg oral capsule (14 sources) Vitamin D End: take 1 capsule by mouth once daily cholecalciferol, vitamin D3, 10 mcg (400 unit) cap Take 400 Units by mouth once daily. 0 12/14/2023 Discontinued Comment on above: Take 400 Units by [facility] once daily. collagen/biotin/ascorbic acid (COLLAGEN 1500 PLUS C ORAL) (14 sources) End: 4 collagen/biotin/asco rbic acid (COLLAGEN 1500 PLUS C ORAL) Take 1 capsule by mouth once daily. 0 12/14/2023 Discontinued collagen/biotin/ ascorbic acid (COLLAGEN 1500 PLUS C ORAL) Take 1 capsule by mouth once daily. 0 Active Comment on above: Take 1 capsule by [facility] once daily. 1 ml fentaNYL 0.05 [...] Comment on above: Take 1 capsule by [facility] once daily. 12 hr guaiFENesin 1200 mg extended release oral tablet (3 sources) Start: 2 End: 3 take 1 tablet by mouth twice daily guaiFENesin (MUCINEX) 1,200 mg Ta12 Indications: Bronchitis Take 1 tablet by mouth twice daily. 42 tablet 0 07/29/2022 12/18/2022 Discontinued Comment on above: Take 1 tablet by [facility] twice daily. 10 ml lidocaine hydrochloride [...] triamcinolone acetonide 80 mg injection (KeNALog 40) PLKPGOO-KOZP-GUNXF-OR EG-CAPRYL ORAL (14 sources) End: 12-14-19 take 1 tablet by mouth once daily YKMYFCB-DSWQ-JXQFX-O REG-CAPRYL ORAL Take 1 tablet by mouth once daily. 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 - UTDQHFBV-TMRXQUDDORWMHL-QG T C ORAL Take by mouth once [...] by mouth two times a day. - hstnjnep-rrjcsh-kfbxsevi acid (COLLAGEN 1500 PLUS C) 500 mg-800 [...] as needed for wheezing/shortness of breath. Normal [facility] CNTHERAPYon 02-08-2025 CNTHERAPY OT/PT/Speech Visit ( PTWS) -- SUSAN CALDERON ([id number]) 1955 F TXT Date Time Provider Department 02/08/25 10:45 AM SMITH CARO PTWS Date Time Provider Department [place] 02/08/2025 10:45 AM [id number], COREY PTWS Daina Palmer Reason for Visit: [...] 99 mg by mouth once daily. - MMTUYNUV-CEOPXRGPNGUSAZ-QG T C ORAL Take by mouth once [...] by mouth two times a day. - hbcmyajy-wflnbm-ktulirsp acid (COLLAGEN 1500 PLUS C) 500 mg-800 [...] as needed for wheezing/shortness of breath. Normal [facility] CNTHERAPYon 02-05-2025 CNTHERAPY OT/PT/Speech Visit ( PTWS) -- SUSAN CALDERON ([id number]) 1955 F TXT Date Time Provider Department 02/05/25 9:15 AM SMITH CARO PTSENTHIL Date Time Provider Department Center 02/05/2025 9:15 AM [id number], COREY PTWS Daina Palmer Reason for Visit: [...] 99 mg by mouth once daily. - TGJQTFNN-LGCSWEFWPLGXMZ-UI T C ORAL Take by mouth once [...] by mouth two times a day. - tlnbbezp-buzxfn-rvjjpyzb acid (COLLAGEN 1500 PLUS C) 500 mg-800 [...] as needed for wheezing/shortness of breath. Normal [facility] CNTHERAPYon 06-12-2025 CNTHERAPY OT/PT/Speech Visit ( PTWS) -- SUSAN CALDERON ([id number]) 1955 F TXT Date Time Provider Department 01/25/25 10:45 AM SMITH CARO PTWS Date Time Provider Department [place] 01/25/2025 10:45 AM [id number], COREY PTWS Daina Palmer Reason for Visit: [...] 99 mg by mouth once daily. - MRHCUMUI-DOPNQDQGSQMOGB-BR T C ORAL Take by mouth once [...] by mouth two times a day. - iqefohdd-smzcwv-wnetdhqg acid (COLLAGEN 1500 PLUS C) 500 mg-800 [...] as needed for wheezing/shortness of breath. Normal [facility] CNTHERAPYon 01-10-2025 CNTHERAPY OT/PT/Speech Visit ( PTWS) -- YOHANASUSAN BROOKS ([id number]) 1955 F TXT Date Time Provider Department 01/10/25 8:00 AM CHRISTIN WALSH PTWS Date Time Provider Department Center 01/10/2025 8:00 AM [id number], MARIAH PTWS Daina Mill Reason for Visit: [...] 99 mg by mouth once daily. - ZXVWNQCB-BDPICZBLHXIUDZ-UP T C ORAL Take by mouth once [...] by mouth two times a day. - spvzaanz-myknid-eilbfvzj acid (COLLAGEN 1500 PLUS C) 500 mg-800 [...] hours as needed for wheezing/shortness of breath. [facility] 29on 01-09-2025 29 Addended by: JULIETA MEEKS on: 01/09/2025 09:23 AM Modules accepted: [facility] [id number] 01-05-2025 [id number] HNO ID: [id number] Author: SMITH CARO PT Service: ? Author Type: Physical Therapist Type: [id number] Filed: 01/05/2025 12:49 Note Text: [facility] Rehabilitation and Sports Therapy Physical Therapy Plan of Care Certification Patient Name: Susan Calderon : 1955 CCF #: [id number] Date: 01/04/2025 To: Prince Lorenzo From Therapist: [...] Planned: 6 Planned Treatment Interventions: Therapeutic exercise (62652), Neuromuscular re-education (42519), Manual therapy (98290), Therapeutic activities (74047), Self-half-way management (59764), Patient/Family/Caregiver Education PLAN FOR NEXT VISIT: Core [...] the treatment plan for Susan Calderon, CCF# [id number] for the period of 01/04/25 -- 02/08/25, established on 01/04/2025. Signature certifies the need for therapy services. [facility]PT/Speech Visit ( PTWS) -- SUSAN CALDERON ([id number]) 1955 F TXT Date Time Provider Department 01/04/25 9:15 AM SMITH CARO PTWS Date Time Provider Department [place] 01/04/2025 9:15 AM [id number], COREY PTWS Daina Palmer Reason for Visit: [...] 99 mg by mouth once daily. - PEBINRQM-BSKRRGIGSZGTYC-BP T C ORAL Take by mouth once [...] by mouth two times a day. - lxduofxp-qncyzd-wnqqbanb acid (COLLAGEN 1500 PLUS C) 500 mg-800 [...] for wheezing/shortness of breath. Letter Text Normal [facility] 36on 01-03-2025 36 Name of caller: Carolann lucas Contact phone number: [phone] Relationship to Patient: patient Provider: Dr. Lorenzo Practice: neuro Chief Complaint/Reason for Call: Pt states she was informed by the pain mgt office of [facility] that the referral has not been received. Please advise. Best time of day caller can be reached: any Patient advised that office/PCP has 24-48 business hours to return their call: N/A [facility] 36on 01-02-2025 36 We wanted to inform you that your patient's blood pressure was noted to be elevated in our specialty office today. We thank you for trusting us with your patient's health. BP Readings from Last 1 Encounters: 01/02/25 (!) 142/84 [facility] Office Visiton 01-02-2025 Follow-up visit [id number] Justice Calderon 1955 F Date Provider Department Center 01/02/2025 [id number] LORENZO [facility] None Family History Problem Relation Age of Onset Stroke Mother Comments: aneurysm Lung cancer Father Family Status - Relation Status Age at Mother Father Brother Alive Level of Service:32339 [place] OFFICE/OUTPATIENT NEW MODERATE MDM 45 MINUTES Reason for Visit and Comments: New Patient [542] - Needs spinal surgery [facility] Progress Noteon 01-02-2025 Progress Note NEUROSURGERY [...] has magdy (more content not included)... Normal [facility] MR Lumbar spine WO contrasto n 12-30-2024 IMPRESSION: 1. Degenerative and postsurgical changes of the lumbar spine as discussed level by level in the body of the report. No severe spinal canal stenosis. 2. Acute to subacute compression deformity of T11 with approximately 50% height loss and minimal retropulsion of the superior endplate contributing to mild spinal canal narrowing. Anatomic Lumbar Variant: Technology Support Analyst: APRYL Transcribe Date/Time: Dec 30 2024 9:36A Dictated by : GIFTY VAZQUEZ MD This examination was interpreted and the report reviewed and electronically signed by: GIFTY VAZQUEZ MD on Dec 30 2024 9:42AM EST [facility] * * *Final Report* * [...] within normal limits. [facility] Provider, [facility] ashley [place] - 12/30/2024 * * *Final Report* * [...] mild spinal canal narrowing. Anatomic Lumbar Variant: Technology Support Analyst: APRYL Transcribe Date/Time: Dec 30 2024 9:36A Dictated by : GIFTY VAZQUEZ MD This examination was interpreted and the report reviewed and electronically signed by: GIFTY VAZQUEZ MD on Dec 30 2024 9:42AM EST [facility] Radiology Study observation (narrative) [facility] MR Lumbar spine WO contrastO rdered By: Ccf Provider on 12-30-2024 [facility] MRI LUMBAR SPINE WO IVCONon 12-30-2024 MRI [...] mild spinal canal narrowing. Anatomic Lumbar Variant: Technology Support Analyst: APRYL Transcribe Date/Time: Dec 30 2024 9:36A Dictated by : GIFTY VAZQUEZ MD This examination was interpreted and the report reviewed and electronically signed by: GIFTY VAZQUEZ MD on Dec 30 2024 9:42AM EST [id number] Telephone (INTWS) -- SUSAN CALDERON ([id number]) 1955 F TXT Date Time Provider Department 12/27/24 CEE CHRISTIANSON INTWS During your visit today, we recorded the following information about you: Lucille Ji LPN 12/27/2024 2:53 PM Signed Patient calling asking to have Lumbar xrays that were done 09/11/2024 put on a disc please. Patient has appt on 01/[address] Lorenzo. 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 If any problem please call patient. Thank you Joanna Weaver PSS 01/01/2025 8:44 AM Signed CD READY FOR DATA SCIENCES DIRECTOR AT [facility] RADIOLOGY Allergies As of Date: 12/27/2024 Noted [...] 99 mg by mouth once daily. - VDLOPZRD-DNCIMHLXQKBFVN-NR T C ORAL Take by mouth once [...] by mouth two times a day. - dxvbpqco-dgllzu-ssobcrwp acid (COLLAGEN 1500 PLUS C) 500 mg-800 [...] Encounter Status:Closed by LUCILLE JI on 01/01/25 [facility] 12-25-2024 CNPN Telephone (INTMWS) -- SUSAN CALDERON ([id number]) 1955 F TXT Date Time Provider Department 12/25/24 CEE CHRISTIANSON INTWS During your visit today, we recorded the following information about you: Amy Alex 12/25/2024 3:09 PM Signed Patient presented at service desk associate asking for orders for MRI of the [...] to see if can get soon. Shantel Jarmaillo LPN 12/27/2024 3:41 PM Signed Pcp ordered [...] without sciatica [M54.50] [id number] Order #: [id number] FUTURE Prescriptions as of 12/29/2024 - donepezil [...] 99 mg by mouth once daily. - YBIEHQER-ILDLYFTCFKUGZG-KF T C ORAL Take by mouth once [...] two times (more content not included)... Normal [facility] 36on 12-22-2024 36 Called and left a me ssage on patients daughter phone because the number in our records for the patient has been disconnected. Called to ask patient to obtain a disc from [facility] of her images. Will sent a request to [facility] CNTHERAPYon 11-30-2024 CNTHERAPY OT/PT/Speech Visit ( PTWS) -- SUSAN CALDERON ([id number]) 1955 F TXT Date Time Provider Department 11/30/24 3:00 PM DANNY TUCKER PTWS Date Time Provider Department Center 11/30/2024 3:00 PM [id number], COLIN PTWS Daina Palmer Reason for Visit: [...] 99 mg by mouth once daily. - OEBOOWNZ-JUFMXZTMIYXGPF-JF T C ORAL Take by mouth once [...] by mouth two times a day. - jmbyluwo-kcpoqa-gldyoyqc acid (COLLAGEN 1500 PLUS C) 500 mg-800 [...] hours as needed for wheezing/shortness of breath. Stack Clerk: Therapy (PT/OT/Speech/Resp) ID: [id number] 11/30/2024 3:30 PM Author: DANNY TUCKER Signed by DANNY TUCKER PT on 11/30/2024 at 3:30 PM Document text: Program_ID:[id number] Access Code: [email or web address] URL: [email or web address]/ Date: 11-30-2024 Prepared By: Danny Tucker Program [...] - 2 sets - 10 reps Normal [facility] THERAPY NTon 11-30-2024 THERAPY NT HNO ID: [id number] Author: DANNY TUCKER, PT Service: ? Author Type: Physical Therapist Type: Therapy (PT/OT/Speech/Resp) Filed: 11/30/2024 15:30 Note Text: Program_ID:[id number] Access Code: [email or web address] URL: [email or web address]/ Date: 11-30-2024 Prepared By: Danny Tucker Program [...] - 2 sets - 10 reps Normal [facility] CNOVon 11-29-2024 CNOV Office Visit (KEATON ) -- SUSAN CALDERON ([id number]) 1955 F TXT Date Time Provider Department [...] then, please send me a message through [employer] or call the office. - Continue monitoring [...] 2023 Practi (more content not included)... Normal [facility] MR Brain WO contraston 11-07 * * *Final Report* * * DATE OF EXAM: Nov 07 2024 1:34PM [facility] - MRI BRAIN W QUANT WO [...] to 1.7; Gelacio 2008; also David 2010). [facility] RADIOLOGY Provider, Debbie Gauthier - 11/07/2024 * * *Final Report* * * DATE OF EXAM: Nov 07 2024 1:34PM [facility] 3015 - MRI BRAIN W QUANT WO [...] dementia protocol and 3-D post-processing using the [employer] software at an independent workstation with concurrent [...] = Focal Lesions 2 = Beginning of [place] 3 = Diffuse Involvement of Entire Region [...] the analysis c (more content not included)... [facility] MR Unspecified body region 3 D post processingon 11-07-2024 * * *Final Report* * * DATE OF EXAM: Nov 07 2024 1:34PM [facility] 7867 - MRI 3D BRAIN QUANT / PROCEDURE REASON: Cognitive impairment, mild, so stated * * * * Physician Interpretation * * * * EXAMINATION: MRI BRAIN W QUANT WO IVCON, MRI 3D BRAIN QUANT CLINICAL HISTORY: Cognitive impairment TECHNIQUE: Axial NUVIA FLAIR, NUVIA T2, diffusion and susceptibility weighted imaging without contrast, using the ADNI dementia protocol and 3-D post-processing using the [employer] software at an independent workstation with concurrent [...] to 1.7; Gelacio 2008; also David 2010). [facility] RAD[facility] Provider, [facility] - 11/07/2024 * * *Final Report* * * DATE OF EXAM: Nov 07 2024 1:34PM [facility] 7867 - MRI 3D BRAIN QUANT / PROCEDURE REASON: Cognitive impairment, mild, so stated * * * * Physician Interpretation * * * * EXAMINATION: MRI BRAIN W QUANT WO IVCON, MRI 3D BRAIN QUANT CLINICAL HISTORY: Cognitive impairment TECHNIQUE: Axial NUVIA FLAIR, NUVIA T2, diffusion and susceptibility weighted imaging without contrast, using the ADNI dementia protocol and 3-D post-processing using the [employer] software at an independent workstation with concurrent [...] = Focal Lesions 2 = Beginning of [place] 3 = Diffuse Involvement of Entire Region [...] analysis charts fo (more content not included)... [facility] MRI 3D BRAIN QUANTon 025 MRI 3D BRAIN QUANT * * *Final Report* * * DATE OF EXAM: Nov 07 2024 1:34PM [facility] 7867 - MRI 3D BRAIN QUANT / PROCEDURE REASON: Cognitive impairment, mild, so stated * * * * Physician Interpretation * * * * EXAMINATION: MRI BRAIN W QUANT WO IVCON, MRI 3D BRAIN QUANT CLINICAL HISTORY: Cognitive impairment TECHNIQUE: Axial NUVIA FLAIR, NUVIA T2, diffusion and susceptibility weighted imaging without contrast, using the ADNI dementia protocol and 3-D post-processing using the [employer] software at an independent workstation with concurrent [...] = Focal Lesions 2 = Beginning of [place] 3 = Diffuse Involvement of Entire Region [...] results from the analysis charts for details. Technology Support Analyst: APRYL Transcribe Date/Time: Nov 07 2024 1:37P Dictated by : LUIS MARTINEZ MD This examination was interpreted and the report reviewed and (more content not included)... Normal [facility] MRI BRAIN W QUANT WO IVCONon 11-07-2024 MRI BRAIN W QUANT WO IVCON * * *Final Report* * * DATE OF EXAM: Nov 07 2024 1:34PM [facility] 3015 - MRI BRAIN W QUANT WO [...] dementia protocol and 3-D post-processing using the [employer] software at an independent workstation with concurrent [...] = Focal Lesions 2 = Beginning of [place] 3 = Diffuse Involvement of Entire Region [...] results from the analysis charts for details. Technology Support Analyst: [facility] Transcribe Date/Time: Nov 07 2024 1:37P Dictated by : LUIS MARTINEZ MD This examination was interpreted and the report reviewe (more content not included)... [facility] No Panel Informationon 11-07 IMPRESSION: * [...] = Focal Lesions 2 = Beginning of [place] 3 = Diffuse Involvement of Entire Region [...] results from the analysis charts for details. Technology Support Analyst: [facility] Transcribe Date/Time: Nov 07 2024 1:37P Dictated by : LUIS MARTINEZ MD This examination was interpreted and the report reviewed and electronically signed by: LUIS MARTINEZ MD on Nov 07 2024 2:06PM [facility] RADIOLOG[facility] Radiology Study observation (narrative) [facility] No Panel InformationOrdered By: Ccf Provider on 11-07-2024 [facility] [id number] 11-01-2024 [id number] HNO ID: [id number] Author: DANNY TUCKER PT Service: ? Author Type: Physical Therapist Type: [id number] Filed: 11/01/2024 13:07 Note Text: [facility] Rehabilitation and Sports Therapy Physical Therapy Plan of Care Certification Patient Name: Susan Calderon : 1955 CCF #: [id number] Date: 11/01/2024 To: Ruma Westfall MD From [...] increase T-score by a minimum 5 points. [place] in home exercise program. Patient will decrease [...] Planned: 4 Planned Treatment Interventions: Therapeutic exercise (41430), Neuromuscular re-education (82917), Manual therapy (12199), Therapeutic activities (82291), Self-half-way management (34769), Gait Training (52613), Body Mechanics Training, Patient/Family/Caregiver Education PLAN FOR [...] the treatment plan for Susan Lance Calderon, [facility]# [id number] for the period of 11/01/24 -- 12/08/24, established on 11/01/2024. Signature certifies the need for therapy services. Normal [facility] CNTHERAPYon 11-01-2024 CNTHERAPY OT/PT/Speech Visit ( PTWS) -- SUSAN CALDERON ([id number]) 1955 F TXT Date Time Provider Department 11/01/24 8:30 AM DANNY TUCKER PTWS Date Time Provider Department Center 11/01/2024 8:30 AM [id number], COLIN PTWS Daina Palmer Reason for Visit: [...] 99 mg by mouth once daily. - KGZYVFKU-ZCQGJBZDGKSZMT-VK T C ORAL Take by mouth once [...] by mouth two times a day. - svaxvvkx-oxiuxy-mhtqxgee acid (COLLAGEN 1500 PLUS C) 500 mg-800 [...] hours as needed for wheezing/shortness of breath. Stack Clerk: Addendum Therapy (PT/OT/Speech/Resp) ID: [id number] 11/01/2024 9:09 AM Author: DANNY TUCKER Signed by DANNY TUCKER PT on 11/01/2024 at 9:09 AM * * * This document replaces document [id number] * * * Document text: Program_ID:[id number] Access Code: [email or web address] URL: [email or web address] Date: 11-01-2024 Prepared By: Danny Tucker Program [...] - 2 sets - 8-12 reps Normal [facility] THERAPY NTon 11-01-2024 THERAPY NT HNO ID: [id number] Author: DANNY TUCKER PT Service: ? Author Type: Physical Therapist Type: Therapy (PT/OT/Speech/Resp) Filed: 11/01/2024 09:09 Note Text: Program_ID:[id number] Access Code: [email or web address] URL: [email or web address] Date: 11-01-2024 Prepared By: Danny Tucker Program [...] - 2 sets - 8-12 reps Normal [facility] SCREENINGon 10-09-2024 [facility] SCREENING * * *Final Report* * * DATE OF EXAM: Oct 09 2024 11:33AM [facility] 0581 - [facility] SCREENING / PROCEDURE REASON: Encounter for screening mammogram for breast cancer * * * * Physician Interpretation * * * * RESULT: [place] [address] #[id number] - [facility] SCREENING HISTORY: 69 year-old patient seen for [...] Nellie Pickett M.D. Electronically signed on: 10/09/2024 Technology Support Analyst: JESSIE Transcridilshad Date/Time: Oct 09 2024 11:12A Dictated by: NELLIE PICKETT MD This examination was interpreted and the report reviewed and electronically signed by: NELLIE PICKETT MD on Oct 09 2024 2:10PM EST [id number] Normal [facility] Breast Screeningon 2024 IMPRESSION: There is [...] Nellie Pickett M.D. Electronically signed on: 10/09/2024 Technology Support Analyst: JESSIE Transcridilshad Date/Time: Oct 09 2024 11:12A Dictated by: NELLIE PICKETT MD This examination was interpreted and the report reviewed and electronically signed by: NELLIE PICKETT MD on Oct 09 2024 2:10PM EST DIVISION OF RADIOLOGY * * *Final Report* * * DATE OF EXAM: Oct 09 2024 11:33AM [facility] 0581 - [facility] SCREENING / PROCEDURE REASON: Encounter for screening mammogram for breast cancer * * * * Physician Interpretation * * * * RESULT: [facility] [address] [id number] #[id number] - [facility] SCREENING HISTORY: 69 year-old patient [...] significant interval changes. DIVISION OF RADIOLOGY Provider, [facility] - 10/09/2024 * * *Final Report* * * DATE OF EXAM: Oct 09 2024 11:33AM [facility] 0581 - [facility] SCREENING / PROCEDURE REASON: Encounter for screening mammogram for breast cancer * * * * Physician Interpretation * * * * RESULT: [facility] [address] [id number] #[id number] - [facility] SCREENING HISTORY: 69 year-old patient [...] Nellie Pickett M.D. Electronically signed on: 10/09/2024 Technology Support Analyst: JESSIE Transcribe Date/Time: Oct 09 2024 11:12A Dictated by: NELLIE PICKETT MD This examination was interpreted and the report reviewed and electronically signed by: NELLIE PICKETT MD on Oct 09 2024 2:10PM EST [facility] Radiology Study observation (narrative) [facility] MG Breast ScreeningOrdered B y: Ccf Provider on 10-09-2024 [facility] CNOVon 10-05-2024 CNOV Office Visit (ANITHAIWR ) -- SUSAN CALDERON ([id number]) 1955 F TXT Date Time Provider Department 10/05/24 9:30 AM RUMA WESTFALL During your visit today, we recorded the following information about you: Pulse Blood pressure Weight Height 65/minute 138/76 98.3 kg 1.62 m Ruma Westfall MD 10/05/2024 5:54 PM Signed [facility] Initial Consult Susan [...] secure location? No Social History: Primary language: Wallisian Marital Status: Living situation: Home w/ Family, family lives with her for over a year now. Socially engaged? (participates in activities such as clubs, holiness, community center, sports, games, visiting friends/relatives, etc?): He he she has always been a stay at home person.except for daughter and son being with her or visiting. She does not socialize. Most of her friends . 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 NO [...] lumbar surg (more content not included)... Normal [facility] Radu 10-05-2024 KATIUSKAN Telephone (INTMWS) -- SUSAN CALDERON ([id number]) 1955 F TXT Date Time Provider Department 10/05/24 RUMA WESTFALL During your visit today, we recorded the following information about you: Shimon Choudhury RN 10/05/2024 9:02 AM Signed Patient phoned to report she is scheduled with Dr. Westfall at 9:30 today. Her daughter is driving from [facility] and the roads are bad- running late. [...] 99 mg by mouth once daily. - FBUBETDQ-FXTWYLNOSWFUUO-MH T C ORAL Take by mouth once [...] by mouth two times a day. - lqycjgca-ccepex-pzlcffjl acid (COLLAGEN 1500 PLUS C) 500 mg-800 [...] Status:Closed by Shimon CHOUDHURY on 10/13/24 Normal [facility] No Panel Informationon 10-05 Interpretation and review of laboratory results Normal [facility] T4 FREE/FREE THYROXINEon Free T4 [Mass/Vol] 1.1 ng/dL 0.9 - 1.7 ng/dL [facility] T4 Free SerPl-mCncon 025 Free T4 [Mass/Vol] 1.1 ng/dL Normal 0.9-1.7 [facility] Comment on above: Order Comment: Speci men Type: BLOOD SPECIMENOrdering Facility: [facility] Address: [address] [place] [address] [place] [address] Performed By: #### 3 016-3, 2132-9, 3024-7 ####[facility] LABCLIA [id number] [facility] [id number] [address] [place] THYROID STIMULATING HORMONEo n 10-05-2024 TSH Qn 1.43 m[IU]/L [facility] TSH SerPl-aCncon 10-05-2024 TSH Qn 1.430 m[IU]/L Normal 0.270-4.200 [facility] Comment on above: Order Comment: Speci men Type: BLOOD SPECIMENOrdering Facility: [facility] Address: [address] [place] [address] Performed By: #### 3 016-3, 9, 4-7 ####[facility] LABCLIA [id number] [place] [address] [place] VITAMIN B12on 10-05-2024 Cobalamin (Vitamin B12) [Mass/Vol] 580 pg/mL 232 - 1245 pg/mL [facility] Vit B12 SerPl-mCncon 025 Cobalamin (Vitamin B12) [Mass/Vol] 580 pg/mL Normal 232-1245 [facility] Comment on above: Order Comment: Speci men Type: BLOOD SPECIMENOrdering Facility: [facility] Address: [address] [place] [address] Performed By: #### 3 016-3, 9, 47 ####[facility] LABCLIA [id number] [address] [place] CNOVon 09-25-2024 CNOV Office Visit (INTMWS ) -- SUSAN CALDERON ([id number]) 1955 F TXT Date Time Provider Department 09/25/24 1:00 PM CEE CHRISTIANSON INTMWS During your visit today, we recorded the following information about you: Pulse Respiration Blood pressure Weight 67/minute 16/minute 136/81 99 kg Height 1.6 m Cee Christianson MD 11/01/2024 6:20 PM Signed This note was created using Medminderriter. 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 She does not have a living [...] Take by mouth two times a day. sjulhpow-aoriag-oeuotnrp acid (COLLAGEN 1500 PLUS C) 500 mg-800 [...] (GLUCOSAMINE-CHONDROITIN CO (more content not included)... Normal [facility] KIDNEY/BLADDERon 09-22-19 25 US KIDNEY/BLADDER * [...] visualization. No hydronephrosis. LEFT kidney appears atrophic. Technology Support Analyst: APRYL Transcribe Date/Time: Sep 24 2024 8:25A Dictated by : COLLEEN EH DO This examination was interpreted and the report reviewed and electronically signed by: COLLEEN HE DO on Sep 24 2024 8:28AM EST [id number] Normal [facility] CNOVon 09-21-2024 CNOV Office Visit (INTMWS ) -- SUSAN CALDERON ([id number]) 1955 F TXT Date Time Provider Department 09/21/24 4:20 PM PRADEEP BLANTON INTMWS During your visit today, we recorded the following information about you: Temperature Pulse Respiration Blood pressure 99.2 degrees 80/minute 16/minute 136/82 Weight 100.5 kg Pradeep Blanton MD 09/22/2024 12:28 AM Signed This note was created using YOGASMOGA. Subjective Patient presents with: [facility] follow-up [...] Take by mouth two times a day. gppoxxqk-aptffs-stnejkzq acid (COLLAGEN 1500 PLUS C) 500 mg-800 [...] taking: Repo (more content not included)... Normal [facility] UA DIP, URINE (POC)on 2024 BILIRUBIN UA (POCT) Negative Negative [facility] CLARITY UA (POCT) Clear [facility] COLOR UA (POCT) Yellow [facility] GLUCOSE UA (POCT) Negative Negative mg/dL [facility] Hemoglobin Ql (U) Trace-intact Abnormal Negative [facility] Interpretation and review of laboratory results Abnormal [facility] KETONE UA (POCT) Negative Negative mg/dL [facility] LEUKOCYTES UA (POCT) Negative [facility] NITRITE UA (POCT) Negative Negative [facility] PH UA (POCT) 8.0 4.5 - 8.0 [facility] Protein Ql (U) Negative Negative mg/dL [facility] SPECIFIC GRAVITY UA (POCT) 1.020 1.005 - 1.030 [facility] UROBILINOGEN UA (POCT) 0.2 Scarlet l E.U./dL [facility] Location:[address], [id number] [place] [address] POINT OF CARE [facility] SUSAN CALDERON ([id number]) 1955 F TXT Date Time Provider Department [...] by mouth two times a day. - bhlzqnrf-nmtsqh-icxeradk acid (COLLAGEN 1500 PLUS C) 500 mg-800 [...] Refills S (more content not included)... Normal [facility] Bacteria Culton 5 Bacteria identified [...] , Intermediate >32 , Resistant >64 Abnormal [facility] Comment on above: Performed By: #### 6 30-4 ####[facility] LABIA [id number] [address] OF [facility] CNOVon 09-11-2024 CNOV Office Visit (UCWSTR ) -- SUSAN CALDERON ([id number]) 1955 F TXT Date Time Provider Department 09/11/24 9:30 AM JEAN KIM UCWSTR During your visit today, we recorded the following information about you: Temperature Pulse Respiration Blood pressure 98.2 degrees 75/minute 21/minute 128/80 Weight 98.9 kg Jean Kim PA 09/11/2024 10:44 AM Signed This note was created using YOGASMOGA. Subjective Susan Calderon is a 69 year [...] Take by mouth two times a day. bdsgwvqi-bofzzs-nbfosbuk acid (COLLAGEN 1500 PLUS C) 500 mg-800 [...] quittin.1 Smokeless (more content not included)... Normal [facility] UA DIP, URINE (POC)on 2024 BILIRUBIN UA (POCT) Negative Negative [facility] CLARITY UA (POCT) Clear [facility] COLOR UA (POCT) Yellow [facility] GLUCOSE UA (POCT) Negative Negative mg/dL [facility] Hemoglobin Ql (U) Negative Negative [facility] Interpretation and review of laboratory results Abnormal [facility] KETONE UA (POCT) Negative Negative mg/dL [facility] LEUKOCYTES UA (POCT) Trace Abnormal Negative [facility] NITRITE UA (POCT) Negative Negative [facility] PH UA (POCT) 6.5 4.5 - 8.0 [facility] Protein Ql (U) Negative Negative mg/dL [facility] SPECIFIC GRAVITY UA (POCT) 1.015 1.005 - 1.030 [facility] UROBILINOGEN UA (POCT) 0.2 Scarlet l E.U./dL [facility] Location:[address], [address] [place] [address] POINT OF CARE [facility] XR LUMBAR 3V AP/LAT/L5-S1on 09-11-2024 XR LUMBAR [...] 3. Degenerative disease of the lumbar spine Technology Support Analyst: [facility] Transcribe Date/Time: Sep 11 2024 10:24A Dictated by : MARK MIXON MD This examination was interpreted and the report reviewed and electronically signed by: MARK MIXON MD on Sep 11 2024 10:28AM EST [id number] Normal [facility] XR Lumbar spine 3 Viewson IMPRESSION: 1. No acute fracture 2. Unchanged retrolisthesis of L3 on L4 3. Degenerative disease of the lumbar spine Technology Support Analyst: [facility] Transcribe Date/Time: Sep 11 2024 10:24A [...] 3. Degenerative disease of the lumbar spine Technology Support Analyst: [facility] Transcribe Date/Time: Sep 11 2024 10:24A Dictated by : MARK MIXON MD This examination was interpreted and the report reviewed and electronically signed by: MARK MIXON MD on Sep 11 2024 10:28AM EST [facility] Radiology Study observation (narrative) [facility] XR Lumbar spine 3 ViewsOrder ed By: Ccf Provider on 09-11-2024 [facility] 25(OH)D3 SerPl-mCncon 2024 25-hydroxyvitamin D3 [Mass/Vol] 61.9 ng/mL Normal 31.0-80.0 [facility] Comment on above: Order Comment: Speci men Type: BLOOD SPECIMENOrdering Facility: [facility] Address: [address] [place] [address] Result Comment: Clas sification of 25 [place] Vitamin D status: Deficiency/Insufficiency: < or = 30 ng/ml. Sufficiency/Optimal Levels: 31-80 ng/mL Toxicity: > 100 ng/mL. Test performed by chemiluminescent immunoassay. Performed By: #### 1 989-3 ####[facility] LABIA [id number] [place] [address] [place] CBC panel Auto (Bld)on 09-08 Erythrocyte distribution width (RBC) [Ratio] 13.2 % Normal 11.5-15.0 [facility] Comment on above: Order Comment: Speci men Type: BLOOD SPECIMENOrdering Facility: [facility] Address: [address] [place] [address] Performed By: #### 5 8410-2 ####[facility] LABIA [id number] [address] [place] Hematocrit (Bld) [Volume fraction] 42.6 % Normal 36.0-46.0 [facility] Comment on above: Order Comment: Speci men Type: BLOOD SPECIMENOrdering Facility: [facility] Address: [address] [place] [address] Performed By: #### 5 8410-2 ####[facility] LABIA [id number] [place] [address] [place] Hemoglobin (Bld) [Mass/Vol] 13.3 g/dL Normal 11.5-15.5 [facility] Comment on above: Order Comment: Speci men Type: BLOOD SPECIMENOrdering Facility: [facility] Address: [address] [place] [address] Performed By: #### 5 8410-2 ####[facility] LABIA [id number] [place] [address] [place] MCH (RBC) [Entitic mass] 29.6 pg Normal 26.0-34.0 [facility] Comment on above: Order Comment: Speci men Type: BLOOD SPECIMENOrdering Facility: [facility] Address: [address] [place] [address] Performed By: #### 5 8410-2 ####[facility] LABIA [id number] [place] [address] [place] MCHC (RBC) [Mass/Vol] 31.2 g/dL Normal 30.5-36.0 [facility] Comment on above: Order Comment: Speci men Type: BLOOD SPECIMENOrdering Facility: [facility] Address: [address] [place] [address] Performed By: #### 5 8410-2 ####[facility] [id number] [place] [address] [place] MCV (RBC) [Entitic vol] 94.7 fL Normal 80.0-100.0 [facility] Comment on above: Order Comment: Speci men Type: BLOOD SPECIMENOrdering Facility: [facility] Address: [address] [place] [address] Performed By: #### 5 8410-2 ####[facility] [id number] [place] [address] [place] Nucleated RBC (Bld) [#/Vol] 10*3/uL Normal <0.01 [facility] Comment on above: Order Comment: Speci men Type: BLOOD SPECIMENOrdering Facility: [facility] Address: [address] [place] [address] Performed By: #### 5 8410-2 ####[facility] [id number] [place] [address] [place] Platelet mean volume (Bld) [Entitic vol] 10.9 fL Normal 9.0-12.7 [facility] Comment on above: Order Comment: Speci men Type: BLOOD SPECIMENOrdering Facility: [facility] Address: [address] [place] [address] Performed By: #### 5 8410-2 ####[facility] LABCLIA [id number] [address] [address] [place] Platelets (Bld) [#/Vol] 317 10*3/uL Normal 150-400 [facility] Comment on above: Order Comment: Speci men Type: BLOOD SPECIMENOrdering Facility: [facility] Address: [address] [place] [address] Performed By: #### 5 8410-2 ####[facility] LABCLIA [id number] [place] [address] [place] RBC (Bld) [#/Vol] 4.50 10*6/uL Normal 3.90-5.20 [facility] Comment on above: Order Comment: Speci men Type: BLOOD SPECIMENOrdering Facility: [facility] Address: [address] [place] [address] Performed By: #### 5 8410-2 ####[facility] LABIA [id number] [place] [address] [place] WBC (Bld) [#/Vol] 8.37 10*3/uL Normal 3.70-11.00 [facility] Comment on above: Order Comment: Speci men Type: BLOOD SPECIMENOrdering Facility: [facility] Address: [address] [place] [address] Performed By: #### 5 8410-2 ####[facility] LABCLIA [id number] [place] [id number] [place] Comprehensive metabolic 2000 panelon 09-08-2024 Albumin [Mass/Vol] 4.1 g/dL Normal 3.9-4.9 [facility] Comment on above: Order Comment: Speci men Type: BLOOD SPECIMENOrdering Facility: [facility] Address: [address] [place] [address] Performed By: #### 2 4331-1, 2276-4, 16584-7, 30115-3 ####[facility] LABCLIA [id number] [address] [address] [place] ALP [Catalytic activity/Vol] 114 U/L Normal 34-123 [facility] Comment on above: Order Comment: Speci men Type: BLOOD SPECIMENOrdering Facility: [facility] Address: [address] [place] [address] Performed By: #### 2 4331-1, 2275-4, 45882-1, 41011-6 ####[facility] LABCLIA [id number] [address] [address] [place] ALT [Catalytic activity/Vol] 18 U/L Normal 7-38 [facility] Comment on above: Order Comment: Speci men Type: BLOOD SPECIMENOrdering Facility: [facility] Address: [address] [place] [address] Performed By: #### 2 4331-1, 2275-4, 27180-1, ####[facility] LABCLIA [id number] [place] [address] [place] Anion gap [Moles/Vol] 11 mmol/L Normal 8-15 [facility] Comment on above: Order Comment: Speci men Type: BLOOD SPECIMENOrdering Facility: [facility] Address: [address] [place] [address] Performed By: #### 2 4331-1, 2275-4, 12578-9, ####[facility] LABCLIA [id number] [address] [address] [place] AST [Catalytic activity/Vol] 27 U/L Normal 13-35 [facility] Comment on above: Order Comment: Speci men Type: BLOOD SPECIMENOrdering Facility: [facility] Address: [address] [place] [address] Performed By: #### 2 4331-1, 6-4, 49561-5, 05877-3 ####[facility] LABCLIA [id number] [address] [address] [place] Bilirubin [Mass/Vol] 0.3 mg/dL Normal 0.2-1.3 [facility] Comment on above: Order Comment: Speci men Type: BLOOD SPECIMENOrdering Facility: [facility] Address: [address] [place] [address] Performed By: #### 2 4331-1, 6-4, 32146-9, 62213-6 ####[facility] LABCLIA [id number] [address] [address] [place] Calcium [Mass/Vol] 9.2 mg/dL Normal 8.5-10.2 [facility] Comment on above: Order Comment: Speci men Type: BLOOD SPECIMENOrdering Facility: [facility] Address: [address] [place] [address] Performed By: #### 2 4331-1, 6-4, 53955-8, 55389-1 ####[facility] LABCLIA [id number] [place] [address] [place] Chloride [Moles/Vol] 98 mmol/L Normal 98-107 [facility] Comment on above: Order Comment: Speci men Type: BLOOD SPECIMENOrdering Facility: [facility] Address: [address] [place] [address] Performed By: #### 2 4331-1, 6-4, 56695-8, 33855-7 ####[facility] LABCLIA [id number] [place] [address] [place] CO2 [Moles/Vol] 24 mmol/L Normal 22-30 [facility] Comment on above: Order Comment: Speci men Type: BLOOD SPECIMENOrdering Facility: [facility] Address: [address] [place] [address] Performed By: #### 2 4331-1, 2276-4, 20759-1, 23177-9 ####[facility] LABCLIA [id number] [place] [id number] [place] Creatinine [Mass/Vol] 0.73 mg/dL Normal 0.58-0.96 [facility] Comment on above: Order Comment: Migel sanderson Type: BLOOD SPECIMENOrdering Facility: [facility] Address: [address] [place] [address] Performed By: #### 2 4331-1, 6-4, 31440-8, 69501-7 ####[facility] LABIA [id number] [place] [id number] [place] Creatinine and Glomerular filtration rate.predicted panel (S/P/Bld) 89 mL/min/1.73m??? Normal >=60 [facility] Comment on above: Order Comment: Migel sanderson Type: BLOOD SPECIMENOrdering Facility: [facility] Address: [address] [place] [address] Result Comment: Ivonne mated Glomerular Filtration Rate [...] GFR. Performed By: #### 2 4331-1, 6-4, 28890-6, 04965-4 ####[facility] LABIA [id number] [place] [id number] [place] Glucose [Mass/Vol] 100 mg/dL High 74-99 [facility] Comment on above: Order Comment: Migel sanderson Type: BLOOD SPECIMENOrdering Facility: [facility] Address: [address] [place] [address] Result Comment: The [place] Diabetes Association (ADA) provides guidance for cutoff [...] Standards of Medical Care in Diabetes 2016, [place] [employer]. Diabetes Care. 2016.39(Suppl 1). Performed By: #### 2 4331-1, 6-4, 78699-8, 34752-4 ####[facility] LABCLIA [id number] [address] [address] [place] Potassium [Moles/Vol] 4.8 mmol/L Normal 3.7-5.1 [facility] Comment on above: Order Comment: Speci men Type: BLOOD SPECIMENOrdering Facility: [facility] Address: [address] [place] [address] Performed By: #### 2 4331-1, 6-4, 24343-1, 93804-7 ####[facility] LABCLIA [id number] [place] [id number] [place] Protein [Mass/Vol] 7.7 g/dL Normal 6.3-8.0 [facility] Comment on above: Order Comment: Speci men Type: BLOOD SPECIMENOrdering Facility: [facility] Address: [address] [place] [address] Performed By: #### 2 4331-1, 6-4, 39345-8, 50666-3 ####[facility] LABCLIA [id number] [address] [address] [place] Sodium [Moles/Vol] 133 mmol/L Low 136-144 [facility] Comment on above: Order Comment: Speci men Type: BLOOD SPECIMENOrdering Facility: [facility] Address: [address] [place] [address] Performed By: #### 2 4331-1, 6-4, 00484-7, 90340-0 ####[facility] LABCLIA [id number] [address] [address] [place] Urea nitrogen [Mass/Vol] 24 mg/dL High 7-21 [facility] Comment on above: Order Comment: Speci men Type: BLOOD SPECIMENOrdering Facility: [facility] Address: [address] [place] [address] Performed By: #### 2 4331-1, 6-4, 93699-0, 00438-7 ####[facility] LABCLIA [id number] [address] [address] [place] Ferritin SerPl-mCncon 2024 Ferritin [Mass/Vol] 432.0 ng/mL High 14.7-205.1 [facility] Comment on above: Order Comment: Speci men Type: BLOOD SPECIMENOrdering Facility: [facility] Address: [address] [place] [address] Performed By: #### 2 4331-1, 6-4, 35152-2, ####[facility] LABIA [id number] [place] [address] [place] Lipid 1996 panelon Cholesterol [Mass/Vol] 141 mg/dL Normal <200 [facility] Comment on above: Order Comment: Speci men Type: BLOOD SPECIMENOrdering Facility: [facility] Address: [address] [place] [address] Result Comment: <200 mg/dL, Desirable 200-239 mg/dL, Borderline high >239 mg/dL, High Performed By: #### 2 4331-1, 6-4, 29175-7, 55936-4 ####[facility] LABIA [id number] [place] [address] [place] Cholesterol in HDL [Mass/Vol] 60 mg/dL Normal >39 [facility] Comment on above: Order Comment: Speci men Type: BLOOD SPECIMENOrdering Facility: [facility] Address: [address] [place] [address] Result Comment: 40-5 9 mg/dL, Acceptable >59 mg/dL, High: Negative risk factor for coronary heart disease <40 mg/dL, Low: Positive risk factor for coronary heart disease Performed By: #### 2 4331-1, 6-4, 02193-3, ####[facility] LABCLIA [id number] [address] [address] [place] Cholesterol in LDL [Mass/Vol] 70 mg/dL Normal <100 [facility] Comment on above: Order Comment: Speci men Type: BLOOD SPECIMENOrdering Facility: [facility] Address: [address] [place] [address] Result Comment: <100 mg/dL, Optimal 100-129 mg/dL, Near optimal/above optimal 130-159 mg/dL, Borderline high 160-189 mg/dL, High >189 mg/dL, Very high Secondary prevention optimal LDL Cholesterol levels are recommended to be < 70 mg/dL Performed By: #### 2 4331-1, 6-4, 88648-5, ####[facility] LABCLIA [id number] [place] [address] [place] Cholesterol in LDL/Cholesterol in HDL [Mass ratio] 1.17 {ratio} Normal <2.54 [facility] Comment on above: Order Comment: Speci men Type: BLOOD SPECIMENOrdering Facility: [facility] Address: [address] [place] [address] Result Comment: Refshaggy rochace: 1. National Cholesterol Education Program ATP III Guideline At-A-Glance Quick Desk Reference: National Heart, Lung, and Blood [place]. National Institutes of Health. 2001: NIH Publication No. 01-3305. 2. An International Atherosclerosis Society position paper: global recommendations for the management of dyslipidemia: executive summary, Atherosclerosis. 2014: 232(2):410-413. Performed By: #### 2 4331-1, 6-4, 64955-3, 91675-8 ####[facility] LABCLIA [id number] [address] [address] [place] Cholesterol in VLDL [Mass/Vol] 11 mg/dL Normal <30 [facility] Comment on above: Order Comment: Speci men Type: BLOOD SPECIMENOrdering Facility: [facility] Address: [address] [place] [address] Performed By: #### 2 4331-1, 6-4, 11033-5, 20412-0 ####[facility] LABCLIA [id number] [place] [address] [place] Cholesterol non HDL [Mass/Vol] 81 mg/dL Normal <130 [facility] Comment on above: Order Comment: Speci men Type: BLOOD SPECIMENOrdering Facility: [facility] Address: [address] [place] [address] Result Comment: <130 mg/dL, Optimal 130-159 mg/dL, Near optimal/above optimal 160-189 mg/dL, Borderline high 190-219 mg/dL, High >219 mg/dL, Very high Secondary prevention optimal non HDL Cholesterol levels are recommended to be <100 mg/dL Performed By: #### 2 4331-1, 6-4, 37615-9, ####[facility] LABCLIA [id number] [place] [address] [place] Cholesterol.total/Chol esterol in HDL [Mass ratio] 2.35 {ratio} Normal <5.10 [facility] Comment on above: Order Comment: Speci men Type: BLOOD SPECIMENOrdering Facility: [facility] Address: [address] [place] [address] Performed By: #### 2 4331-1, 6-4, 57410-1, ####[facility] LABCLIA [id number] [address] [address] [place] FASTING TIME 12 hrs Normal [facility] Comment on above: Order Comment: Speci men Type: BLOOD SPECIMENOrdering Facility: [facility] Address: [address] [place] [address] Performed By: #### 2 4331-1, 6-4, 36151-0, ####[facility] LABCLIA [id number] [place] [id number] [place] Triglyceride [Mass/Vol] 53 mg/dL Normal <150 [facility] Comment on above: Order Comment: Speci men Type: BLOOD SPECIMENOrdering Facility: [facility] Address: [address] [place] [address] Result Comment: <150 mg/dL, Normal 150-199 mg/dL, Borderline high 200-499 mg/dL, High >499 mg/dL, Very high Performed By: #### 2 4331-1, 2275-4, 56772-2, ####[facility] LABCLIA [id number] [place] [address] [place] Magnesium [facility] 09-08 Magnesium [Mass/Vol] 2.0 mg/dL Normal 1.7-2.3 [facility] Comment on above: Order Comment: Speci men Type: BLOOD SPECIMENOrdering Facility: [facility] Address: [address] [place] [address] Performed By: #### 2 4331-1, 2275-4, 43375-0, ####[facility] LABCLIA [id number] [place] [address] [place] Vit B12 SerPl-ncon 025 Cobalamin (Vitamin B12) [Mass/Vol] 769 pg/mL Normal 232-1245 [facility] Comment on above: Order Comment: Speci men Type: BLOOD SPECIMENOrdering Facility: [facility] Address: [address] [place] [address] Performed By: #### 2 132-9 ####[facility] LABCLIA [id number] [place] [id number] [place] [id number] 05-24-2024 [id number] HNO ID: [id number] Author: LUZ PEPE RN Service: ? Author Type: Registered Nurse Type: [id number] Filed: 05/24/2024 11:14 Note Text: The patient received a copy of Colonoscopy discharge instructions that contain information for how to contact the physician who performed the procedure and when to seek medical care. Normal [facility] Colonoscopyon 05-24-2024 Colonoscopy Addendum Number: 1 Addendum Date: 06/15/2024 12:30:14 PM Sedation start time: 9:50AM MATIAS ZAPATA, DO Matias Zapata, 06/15/2024 12:30:31 PM This report has been signed electronically by Matias Lama [facility] Gastrointestinal Endoscopy Patient Name: Susan [...] the patient. Procedure Code(s): --- Professional --- 09834, Colonoscopy, flexible; diagnostic, including collection of specimen(s) by brushing or washing, when performed (separate procedure) G0500, Moderate sedation services provided by the same physician or other qualified health healthcare analyst performing a gastrointestinal endoscopic service that sedation supports, requiring the presence of an independent trained observer to assist in the monitoring of the patient's level of consciousness and physiological status; initial 15 minutes of intra (more content not included)... Normal [facility] Colonoscopy Study observatio non 05-24-2024 [place] [facility] Gastrointestinal Endoscopy Patient Name: Susan [...] Resume previous (more content not included)... PROVATION [facility] Radiology Study observation (narrative) [facility] SUSAN CALDERON ([id number]) 1955 F TXT Date Time Provider Department [...] Fully Assessed Reason for Visit: Patient Question [5007] Prescriptions as of 05/15/2024 - atenolol (TENORMIN) [...] by mouth two times a day. - csyuktrr-chtket-bqfxwpqv acid (COLLAGEN 1500 PLUS C) 500 mg-800 [...] 11/16/2018 [place] (more content not included)... Normal [facility] CNPNon 04-21-2024 CNPN Telephone (INTMWS) -- SUSAN CALDERON ([id number]) 1955 F TXT Date Time Provider Department 04/21/24 [facility] INTMWS During your visit today, we recorded the following information about you: Danuta Hyman 04/24/2024 7:22 AM Addendum Please send Golytely script to [facility] [address] [place] [phone] Mailed Golytely Prep Instructions Cee Christianson MD [...] by mouth two times a day. - claptgfy-wfetfg-oaeggpnc acid (COLLAGEN 1500 PLUS C) 500 mg-800 [...] [D53.9] 02/19/2023 (more content not included)... Normal [facility] 03-29-2024 CNPN Telephone (INTMWS) -- SUSAN CALDERON ([id number]) 1955 F TXT Date Time Provider Department [...] by mouth two times a day. - cdkvroei-xhzkcj-pjnrpsoe acid (COLLAGEN 1500 PLUS C) 500 mg-800 [...] mcg/actuation inhaler (more content not included)... Normal [facility] CNOVon 02-21-2024 CNOV Office Visit (INTMWS ) -- SUSAN CALDERON ([id number]) 1955 F TXT Date Time Provider Department 02/21/24 8:40 AM [facility] INTMWS During your visit today, we recorded the following information about you: Temperature Pulse Respiration Blood pressure 97.4 degrees 67/minute 16/minute 130/62 Weight Height 107.5 kg 1.689 m Cee Christianson MD 02/22/2024 12:05 AM Signed This note was created using Medminderriter. Subjective Susan Calderon is a 68 year [...] 36.0 - (more content not included)... Normal [facility] 25(OH)D3 [facility] 25-hydroxyvitamin D3 [Mass/Vol] 52.2 ng/mL Normal 31.0-80.0 [facility] Comment on above: Order Comment: Migel sanderson Type: BLOOD SPECIMENOrdering Facility: [facility] Address: [address] [place] [address] Result Comment: Clas sification of 25 [place] Vitamin D status: Deficiency/Insufficiency: < or = 30 ng/ml. Sufficiency/Optimal Levels: 31-80 ng/mL Toxicity: > 100 ng/mL. Test performed by chemiluminescent immunoassay. Performed By: #### 1 989-3 ####[facility] LABCLIA [id number] [facility] [id number] [place] [address] [place] CBC W Auto Differential pane l (Bld)on 02-18-2024 Basophils (Bld) [#/Vol] 0.06 10*3/uL Normal <0.11 [facility] Comment on above: Order Comment: Speci men Type: BLOOD SPECIMENOrdering Facility: [facility] Address: [address] [place] [address] Performed By: #### 5 7021-8 ####[facility] LABCLIA [id number] [place] [address] [place] Basophils/100 WBC (Bld) 1.2 % Normal [facility] Comment on above: Order Comment: Speci men Type: BLOOD SPECIMENOrdering Facility: [facility] Address: [address] [place] [address] Performed By: #### 5 7021-8 ####[facility] LABCLIA [id number] [place] [address] [place] Differential cell count method Nom (Bld) Auto Normal [facility] Comment on above: Order Comment: Speci men Type: BLOOD SPECIMENOrdering Facility: [facility] Address: [address] [place] [address] Performed By: #### 5 7021-8 ####[facility] LABCLIA [id number] [place] [address] [place] Eosinophils (Bld) [#/Vol] 0.16 10*3/uL Normal <0.46 [facility] Comment on above: Order Comment: Speci men Type: BLOOD SPECIMENOrdering Facility: [facility] Address: [address] [place] [address] Performed By: #### 5 7021-8 ####[facility] LABCLIA [id number] [place] [address] [place] Eosinophils/100 WBC (Bld) 3.1 % Normal [facility] Comment on above: Order Comment: Speci men Type: BLOOD SPECIMENOrdering Facility: [facility] Address: [address] [place] [address] Performed By: #### 5 7021-8 ####[facility] LABCLIA [id number] [place] [address] [place] Erythrocyte distribution width (RBC) [Ratio] 12.8 % Normal 11.5-15.0 [facility] Comment on above: Order Comment: Speci men Type: BLOOD SPECIMENOrdering Facility: [facility] Address: [address] [place] [address] Performed By: #### 5 7021-8 ####[facility] LABIA [id number] [place] [address] [place] Hematocrit (Bld) [Volume fraction] 40.8 % Normal 36.0-46.0 [facility] Comment on above: Order Comment: Speci men Type: BLOOD SPECIMENOrdering Facility: [facility] Address: [address] [place] [address] Performed By: #### 5 7021-8 ####[facility] LABIA [id number] [place] [address] [place] Hemoglobin (Bld) [Mass/Vol] 13.1 g/dL Normal 11.5-15.5 [facility] Comment on above: Order Comment: Speci men Type: BLOOD SPECIMENOrdering Facility: [facility] Address: [address] [place] [address] Performed By: #### 5 7021-8 ####[facility] LABIA [id number] [place] [address] [place] Immature granulocytes (Bld) [#/Vol] 10*3/uL Normal <0.10 [facility] Comment on above: Order Comment: Speci men Type: BLOOD SPECIMENOrdering Facility: [facility] Address: [address] [place] [address] Performed By: #### 5 7021-8 ####[facility] LABIA [id number] [place] [address] [place] Immature granulocytes/100 WBC (Bld) 0.2 % Normal [facility] Comment on above: Order Comment: Speci men Type: BLOOD SPECIMENOrdering Facility: [facility] Address: [address] [place] [address] Performed By: #### 5 7021-8 ####[facility] LABCLIA [id number] [place] [address] [place] Lymphocytes (Bld) [#/Vol] 1.50 10*3/uL Normal 1.00-4.00 [facility] Comment on above: Order Comment: Speci men Type: BLOOD SPECIMENOrdering Facility: [facility] Address: [address] [place] [address] Performed By: #### 5 7021-8 ####[facility] LABCLIA [id number] [place] [address] [place] Lymphocytes/100 WBC (Bld) 29.5 % Normal [facility] Comment on above: Order Comment: Speci men Type: BLOOD SPECIMENOrdering Facility: [facility] Address: [address] [place] [address] Performed By: #### 5 7021-8 ####[facility] LABIA [id number] [place] [address] [place] MCH (RBC) [Entitic mass] 30.6 pg Normal 26.0-34.0 [facility] Comment on above: Order Comment: Speci men Type: BLOOD SPECIMENOrdering Facility: [facility] Address: [address] [place] [address] Performed By: #### 5 7021-8 ####[facility] LABIA [id number] [place] [address] [place] MCHC (RBC) [Mass/Vol] 32.1 g/dL Normal 30.5-36.0 [facility] Comment on above: Order Comment: Speci men Type: BLOOD SPECIMENOrdering Facility: [facility] Address: [address] [place] [address] Performed By: #### 5 7021-8 ####[facility] LABCLIA [id number] [place] [address] [place] MCV (RBC) [Entitic vol] 95.3 fL Normal 80.0-100.0 [facility] Comment on above: Order Comment: Speci men Type: BLOOD SPECIMENOrdering Facility: [facility] Address: [address] [place] [address] Performed By: #### 5 7021-8 ####[facility] LABCLIA [id number] [place] [address] [place] Monocytes (Bld) [#/Vol] 0.46 10*3/uL Normal <0.87 [facility] Comment on above: Order Comment: Speci men Type: BLOOD SPECIMENOrdering Facility: [facility] Address: [address] [place] [address] Performed By: #### 5 7021-8 ####[facility] LABCLIA [id number] [place] [address] [place] Monocytes/100 WBC (Bld) 9.0 % Normal [facility] Comment on above: Order Comment: Speci men Type: BLOOD SPECIMENOrdering Facility: [facility] Address: [address] [place] [address] Performed By: #### 5 7021-8 ####[facility] LABCLIA [id number] [place] [address] [place] Neutrophils (Bld) [#/Vol] 2.90 10*3/uL Normal 1.45-7.50 [facility] Comment on above: Order Comment: Speci men Type: BLOOD SPECIMENOrdering Facility: [facility] Address: [address] [place] [address] Performed By: #### 5 7021-8 ####[facility] LABCLIA [id number] [place] [address] [place] Neutrophils/100 WBC (Bld) 57.0 % Normal [facility] Comment on above: Order Comment: Speci men Type: BLOOD SPECIMENOrdering Facility: [facility] Address: [address] [place] [address] Performed By: #### 5 7021-8 ####[facility] LABCLIA [id number] [place] [address] [place] Nucleated RBC (Bld) [#/Vol] 10*3/uL Normal <0.01 [facility] Comment on above: Order Comment: Speci men Type: BLOOD SPECIMENOrdering Facility: [facility] Address: [address] [place] [address] Performed By: #### 5 7021-8 ####[facility] LABCLIA [id number] [place] [address] [place] Nucleated RBC/100 WBC (Bld) [Ratio] 0.0 /100 WBC Normal [facility] Comment on above: Order Comment: Speci men Type: BLOOD SPECIMENOrdering Facility: [facility] Address: [address] [place] [address] Performed By: #### 5 7021-8 ####[facility] LABIA [id number] [place] [address] [place] Platelet mean volume (Bld) [Entitic vol] 11.0 fL Normal 9.0-12.7 [facility] Comment on above: Order Comment: Speci men Type: BLOOD SPECIMENOrdering Facility: [facility] Address: [address] [place] [address] Performed By: #### 5 7021-8 ####[facility] LABIA [id number] [place] [address] [place] Platelets (Bld) [#/Vol] 229 10*3/uL Normal 150-400 [facility] Comment on above: Order Comment: Speci men Type: BLOOD SPECIMENOrdering Facility: [facility] Address: [address] [place] [address] Result Comment: No c lot detected. Performed By: #### 5 7021-8 ####[facility] LABIA [id number] [id number] [address] [place] RBC (Bld) [#/Vol] 4.28 10*6/uL Normal 3.90-5.20 [facility] Comment on above: Order Comment: Speci men Type: BLOOD SPECIMENOrdering Facility: [facility] Address: [address] [place] [address] Performed By: #### 5 7021-8 ####[facility] LABCLIA [id number] [place] [address] [place] WBC (Bld) [#/Vol] 5.09 10*3/uL Normal 3.70-11.00 [facility] Comment on above: Order Comment: Speci men Type: BLOOD SPECIMENOrdering Facility: [facility] Address: [address] [place] [address] Performed By: #### 5 7021-8 ####[facility] LABCLIA [id number] [place] [address] [place] Comprehensive metabolic 2000 panelon 02-18-2024 Albumin [Mass/Vol] 4.1 g/dL Normal 3.9-4.9 [facility] Comment on above: Order Comment: Speci men Type: BLOOD SPECIMENOrdering Facility: [facility] Address: [address] [place] [address] Performed By: #### 2 4323-8, 2132-04 ####[facility] LABCLIA [id number] [place] [address] [place] ALP [Catalytic activity/Vol] 82 U/L Normal 34-123 [facility] Comment on above: Order Comment: Speci men Type: BLOOD SPECIMENOrdering Facility: [facility] Address: [address] [place] [address] Performed By: #### 2 4323-8, 2132-04 ####[facility] LABCLIA [id number] [place] [id number] [place] ALT [Catalytic activity/Vol] 21 U/L Normal 7-38 [facility] Comment on above: Order Comment: Speci men Type: BLOOD SPECIMENOrdering Facility: [facility] Address: [address] [place] [id number] Performed By: #### 2 432-8, 2132-04 ####[facility] LABCLIA [id number] [address] [address] [place] Anion gap [Moles/Vol] 14 mmol/L Normal 8-15 [facility] Comment on above: Order Comment: Speci men Type: BLOOD SPECIMENOrdering Facility: [facility] Address: [address] [place], [place] [address] Performed By: #### 2 8, 2132-04 ####[facility] LABCLIA [id number] [place] [address] [place] AST [Catalytic activity/Vol] 36 U/L High 13-35 [facility] Comment on above: Order Comment: Speci men Type: BLOOD SPECIMENOrdering Facility: [facility] Address: [address] [place] [address] Performed By: #### 2 4323-03, 2132-04 ####[facility] LABCLIA [id number] [place] [address] [place] Bilirubin [Mass/Vol] 0.3 mg/dL Normal 0.2-1.3 [facility] Comment on above: Order Comment: Speci men Type: BLOOD SPECIMENOrdering Facility: [facility] Address: [address] [id number] Performed By: #### 2 4323-8, 2132-04 ####[facility] LABCLIA [id number] [place] [address] [place] Calcium [Mass/Vol] 9.0 mg/dL Normal 8.5-10.2 [facility] Comment on above: Order Comment: Speci men Type: BLOOD SPECIMENOrdering Facility: [facility] Address: [address] [place] [address] Performed By: #### 2 432-8, 2132-04 ####[facility] LABCLIA [id number] [address] [address] [place] Chloride [Moles/Vol] 97 mmol/L Low 98-107 [facility] Comment on above: Order Comment: Speci men Type: BLOOD SPECIMENOrdering Facility: [facility] Address: [address] [place], [place] [address] Performed By: #### 2 4323-8, 2132-04 ####[facility] LABCLIA [id number] [place] [address] [place] CO2 [Moles/Vol] 20 mmol/L Low 22-30 [facility] Comment on above: Order Comment: Speci men Type: BLOOD SPECIMENOrdering Facility: [facility] Address: [address] [place] [address] Performed By: #### 2 4328, 2132-04 ####[facility] LABCLIA [id number] [place] [address] [place] Creatinine [Mass/Vol] 0.84 mg/dL Normal 0.58-0.96 [facility] Comment on above: Order Comment: Speci men Type: BLOOD SPECIMENOrdering Facility: [facility] Address: [address] [place] [address] Performed By: #### 2 4323-8, 2132-04 ####[facility] LABCLIA [id number] [place] [id number] [place] Creatinine and Glomerular filtration rate.predicted panel (S/P/Bld) 75 mL/min/1.73m??? Normal >=60 [facility] Comment on above: Order Comment: Speci men Type: BLOOD SPECIMENOrdering Facility: [facility] Address: [address] [place] [address] Result Comment: Ivonne mated Glomerular Filtration Rate [...] GFR. Performed By: #### 2 432-8, 2132-04 ####[facility] LABCLIA [id number] [place] [address] [place] Glucose [Mass/Vol] 98 mg/dL Normal 74-99 [facility] Comment on above: Order Comment: Speci men Type: BLOOD SPECIMENOrdering Facility: [facility] Address: [address] [place] [address] Result Comment: The [place] Diabetes Association (ADA) provides guidance for cutoff [...] Standards of Medical Care in Diabetes 2016, [place] [employer] Association. Diabetes Care. 2016.39(Suppl 1). Performed By: #### 2 43210-21, 2132-04 ####[facility] LABCLIA [id number] [address] [address] [place] Potassium [Moles/Vol] 4.9 mmol/L Normal 3.7-5.1 [facility] Comment on above: Order Comment: Migel men Type: BLOOD SPECIMENOrdering Facility: [facility] Address: [address] [place] [address] Performed By: #### 2 43210-21, 2132-04 ####[facility] LABCLIA [id number] [address] [address] [place] Protein [Mass/Vol] 6.9 g/dL Normal 6.3-8.0 [facility] Comment on above: Order Comment: Speci men Type: BLOOD SPECIMENOrdering Facility: [facility] Address: [address] [place] [address] Performed By: #### 2 4323-8, 2132-04 ####[facility] LABCLIA [id number] [place] [address] [place] Sodium [Moles/Vol] 131 mmol/L Low 136-144 [facility] Comment on above: Order Comment: Speci men Type: BLOOD SPECIMENOrdering Facility: [facility] Address: [address] [place] [address] Performed By: #### 2 4323-8, 2132-04 ####[facility] LABCLIA [id number] [place] [address] [place] Urea nitrogen [Mass/Vol] 15 mg/dL Normal 7-21 [facility] Comment on above: Order Comment: Speci men Type: BLOOD SPECIMENOrdering Facility: [facility] Address: [address] [place] [address] Performed By: #### 2 4323-8, 2132-04 ####[facility] LABCLIA [id number] [place] [address] [place] Ferritin SerPl-mCncon 2023 Ferritin [Mass/Vol] 363.0 ng/mL High 14.7-205.1 [facility] Comment on above: Order Comment: Speci men Type: BLOOD SPECIMENOrdering Facility: [facility] Address: [address] [place] [address] Performed By: #### 5 0190-8, 66412-1, 46457-0, 2276-4 ####[facility] LABCLIA [id number] [place] [address] [place] Iron and Iron binding capaci ty panelon 02-18-2024 Iron [Mass/Vol] 56 ug/dL Normal 41-186 [facility] Comment on above: Order Comment: Speci men Type: BLOOD SPECIMENOrdering Facility: [facility] Address: [address] [place] [address] Performed By: #### 5 0190-8, 14726-3, 60566-2, 6-4 ####[facility] LABCLIA [id number] [place] [address] [place] Iron binding capacity [Mass/Vol] 293 ug/dL Normal 232-386 [facility] Comment on above: Order Comment: Speci men Type: BLOOD SPECIMENOrdering Facility: [facility] Address: [address] [place] [address] Performed By: #### 5 0190-8, 25803-8, 85699-8, 2275-4 ####[facility] LABIA [id number] [place] [address] [place] Iron/TIBC [Molar ratio] 19.1 % Normal 15.0-57.0 [facility] Comment on above: Order Comment: Speci men Type: BLOOD SPECIMENOrdering Facility: [facility] Address: [address] [place] [address] Performed By: #### 5 0190-8, 39583-6, 90806-1, 2275-4 ####[facility] LABIA [id number] [place] [address] [place] Lipid 1996 panelon Cholesterol [Mass/Vol] 114 mg/dL Normal <200 [facility] Comment on above: Order Comment: Speci men Type: BLOOD SPECIMENOrdering Facility: [facility] Address: [address] [place] [address] Result Comment: <200 mg/dL, Desirable 200-239 mg/dL, Borderline high >239 mg/dL, High Performed By: #### 5 0190-8, 38697-1, 81026-6, 2276-4 ####[facility] LABCLIA [id number] [place] [address] [place] Cholesterol in HDL [Mass/Vol] 57 mg/dL Normal >39 [facility] Comment on above: Order Comment: Migel kin Type: BLOOD SPECIMENOrdering Facility: [facility] Address: [address] [place] [address] Result Comment: 40-5 9 mg/dL, Acceptable >59 mg/dL, High: Negative risk factor for coronary heart disease <40 mg/dL, Low: Positive risk factor for coronary heart disease Performed By: #### 5 0190-8, 85750-5, 43593-5, 2276-4 ####[facility] LABCLIA [id number] [address] [place] Cholesterol in LDL [Mass/Vol] 46 mg/dL Normal <100 [facility] Comment on above: Order Comment: Migel sanderson Type: BLOOD SPECIMENOrdering Facility: [facility] Address: [address] [place] [address] Result Comment: <100 mg/dL, Optimal 100-129 mg/dL, Near optimal/above optimal 130-159 mg/dL, Borderline high 160-189 mg/dL, High >189 mg/dL, Very high Secondary prevention optimal LDL Cholesterol levels are recommended to be < 70 mg/dL Performed By: #### 5 0190-8, 86639-6, 32722-4, 2276-4 ####[facility] LABCLIA [id number] [address] [place] Cholesterol in LDL/Cholesterol in HDL [Mass ratio] 0.81 {ratio} Normal <2.54 [facility] Comment on above: Order Comment: Angelinai men Type: BLOOD SPECIMENOrdering Facility: [facility] Address: [address] [place] [address] Result Comment: Refe ajce: 1. National Cholesterol Education Program ATP III Guideline At-A-Glance Quick Desk Reference: National Heart, Lung, and Blood [place]. National Institutes of Health. 2001: NIH Publication No. 01-3305. 2. An International Atherosclerosis Society position paper: global recommendations for the management of dyslipidemia: executive summary, Atherosclerosis. 2014: 232(2):410-413. Performed By: #### 5 0190-8, 45838-2, 35710-1, 2275- ####[facility] LABCLIA [id number] [address] [address] [place] Cholesterol in VLDL [Mass/Vol] 11 mg/dL Normal <30 [facility] Comment on above: Order Comment: Speci men Type: BLOOD SPECIMENOrdering Facility: [facility] Address: [address] [place] [address] Performed By: #### 5 0190-8, , 32119-7, 2275-11 ####[facility] LABCLIA [id number] [address] [address] [place] Cholesterol non HDL [Mass/Vol] 57 mg/dL Normal <130 [facility] Comment on above: Order Comment: Speci men Type: BLOOD SPECIMENOrdering Facility: [facility] Address: [address] [place] [address] Result Comment: <130 mg/dL, Optimal 130-159 mg/dL, Near optimal/above optimal 160-189 mg/dL, Borderline high 190-219 mg/dL, High >219 mg/dL, Very high Secondary prevention optimal non HDL Cholesterol levels are recommended to be <100 mg/dL Performed By: #### 5 0190-8, , 42782-2, 2275- ####[facility] LABCLIA [id number] [address] [address] [place] Cholesterol.total/Chol esterol in HDL [Mass ratio] 2.00 {ratio} Normal <5.10 [facility] Comment on above: Order Comment: Speci men Type: BLOOD SPECIMENOrdering Facility: [facility] Address: [address] [place] [id number] Performed By: #### 5 0190-8, 72723-3, 42359-5, 2275- ####[facility] LABCLIA [id number] [place] [id number] [place] FASTING TIME 13 hrs Normal [facility] Comment on above: Order Comment: Speci men Type: BLOOD SPECIMENOrdering Facility: [facility] Address: [address] [place] [address] Performed By: #### 5 0190-8, 22244-5, 16262-2, 6-4 ####[facility] LABCLIA [id number] [place] [address] [place] Triglyceride [Mass/Vol] 57 mg/dL Normal <150 [facility] Comment on above: Order Comment: Speci men Type: BLOOD SPECIMENOrdering Facility: [facility] Address: [address] [place] [address] Result Comment: <150 mg/dL, Normal 150-199 mg/dL, Borderline high 200-499 mg/dL, High >499 mg/dL, Very high Performed By: #### 5 0190-8, 20405-5, 18749-2, 2275-4 ####[facility] LABCLIA [id number] [place] [address] [place] Magnesium SerPl-mCncon 02-17 Magnesium [Mass/Vol] 1.9 mg/dL Normal 1.7-2.3 [facility] Comment on above: Order Comment: Speci men Type: BLOOD SPECIMENOrdering Facility: [facility] Address: [address] [place] [address] Performed By: #### 5 0190-8, 84709-4, 40542-7, 2275-4 ####[facility] LABCLIA [id number] [place] [address] [place] Vit B12 SerPl-mCncon 024 Cobalamin (Vitamin B12) [Mass/Vol] 673 pg/mL Normal 232-1245 [facility] Comment on above: Order Comment: Speci men Type: BLOOD SPECIMENOrdering Facility: [facility] Address: [address] [place] [address] Performed By: #### 2 4323-8, 2132-9 ####[facility] LABCLIA [id number] [address] [address] [place] Large Joint Arthro/Inj: L kn ee jointon 12-17-2023 Edgard Dubois P A-C 12/17/2023 12:31 PM Large Joint Arthro/Inj: L knee joint Informed Consent Consent Obtained: Verbal Brothers Protocol A moment to CARE was completed. [...] equipment, possible retained foreign bodies accounted for. [facility] DXA-AXIAL SKELETONon 023 [facility] NAVI SCREENINGon 01-04-2023 [facility] SCREENINGon 01-01-2022 [facility] Culture, Blood (WB)on 2016 CUB BCGRAM STAIN: GRAM POSITIVE COCCI CALLED TO Blanca LAMA 07/18/17 1907 BY JOHN Possible skin contamination, further Identification and sensitivity will be performed only by physician's request. No anaerobic bacteria isolated. ORGANISM 1: Alpha Hemolytic StreptococcusAmount Growth Growth Normal [facility] Comment on above: Performed By: #### M 200.1000, M100.636 ####[facility] [address] [place], [address] Culture, Deep Woundon 2016 WBC (Leukocytes) Gram [...] $ <=20 S(NF) indicates non-formulary drug at [facility]. Approval by Infectious Disease Specialist required before non-formulary drugs may be ordered and/or dispensed. Cult, AnaerobicNo anaerobic bacteria isolated. Normal [facility] Comment on above: Performed By: #### M 100.1500 ####[facility] [address] [place], [address] 12 Lead Electrocardiogramon 07-22-2017 12 Lead Electrocardiogram [facility] [address] [place], [place] [address] Lead EKG1/ 1621MR#: [id number] Acct: [id number]: SUSAN CALDERON Rep #: [id number]: 1955 62 [...] was foundConfirmed by MINOR JONES MD ([id number]), editor farm journal MISHEL HANNAH (55) on 07/22/2017 3:16:15 PMReferred By: ROYER Confirmed By:MINOR JONES MD07/22/17 1516Date Minor Jones MDCC: Cee Christianson MD Signed Normal [facility] Culture, Blood (WB)on 2016 CUB BC No growth in 5 days. Normal [facility] Comment on above: Performed By: #### M 200.1000 ####[facility] [address] [place], [address] 12 Lead Electrocardiogramon 07-20-2017 12 Lead Electrocardiogram [facility] [address] [place], [place] [address] Lead EKG109/14/16 1419MR#: [id number] Acct: [id number]: SUSAN CALDERON Rep #: [id number]: 1955 62 [...] rhythmNormal ECGConfirmed by MINOR JONES MD ([id number]), editor farm journal MISHEL HANNAH (55) on 07/20/2017 3:28:48 PMReferred By: SO Confirmed By:MINOR JONES MD07/20/17 1528Date Minor Jones MDCC: Cee Christianson MD Signed Normal [facility] BC GPC IDon 07-19-2017 BC GPC ID BC GPC IDStaphylococ cus sp. Not DetectedEnterococcus sp. Not DetectedStreptococcus spp. Streptococcus sp. (NOT S. pneumoniae)Listeria spp Not DetectedvanA/vanB Not DetectedmecA Not DetectedNAAT METHOD Testing was performed using nucleic acid amplification ORGANISM 1: Strep not Strep pneumo Normal [facility] Comment on above: Performed By: #### M 200.1000, M100.636 ####[facility] [address] [place], [address] CBC W/Diff, Automatedon 12- Absolute Neut 6.6 X10 3/uL Normal 2.0-7.7 [facility] Comment on above: Performed By: #### L 100.0100 ####[facility] [address] [place], [address] Basophils/100 WBC Auto (Bld) 0.8 % Normal 0-1 [facility] Comment on above: Performed By: #### L 100.0100 ####[facility] [address] [place], [address] Eosinophils/100 leukocytes 2.5 % Normal 0-5 [facility] Comment on above: Performed By: #### L 100.0100 ####[facility] [address] [place], [address] Erythrocyte distribution width Auto Ratio (RBC) 12.4 % Normal 11.6-14.6 [facility] Comment on above: Performed By: #### L 100.0100 ####[facility] [address] [place], [address] Erythrocytes (RBC) 2.87 M/mm3 Low 4.2-5.4 [facility] Comment on above: Performed By: #### L 100.0100 ####[facility] [address] [place], [address] Hematocrit (HCT) 28.9 % Low 37-47 [facility] Comment on above: Performed By: #### L 100.0100 ####[facility] [address] [place], [address] Hemoglobin mass conc (Bld) 9.2 g/dL Low 12.0-15.0 [facility] Comment on above: Performed By: #### L 100.0100 ####[facility] [address] [place], [address] HYPOCHROMASIA 2+ Normal [facility] Comment on above: Performed By: #### L 100.0100 ####[facility] [address] [place], [address] IM GRAN % 0.700 % Normal 0.0-0.9 [facility] Comment on above: Result Comment: IG% - Immature Granulocytes (promyelocytes, myelocytes andmetamyelocytes) > 1% indicates that a LEFT SHIFT is Present. Performed By: #### L 100.0100 ####[facility] [address] [place], [address] Lymphocytes 2.80 X10 3/ul Normal 0.83-4.51 [facility] Comment on above: Performed By: #### L 100.0100 ####[facility] [address] [place], [address] Lymphocytes/100 leukocytes 26.1 % Normal 19-41 [facility] Comment on above: Performed By: #### L 100.0100 ####[facility] [address] [place], [address] MCH 32.1 pg High 27.0-32.0 [facility] Comment on above: Performed By: #### L 100.0100 ####[facility] [address] [place], [address] MCHC mass conc (RBC) 31.8 g/gl Low 32-36 [facility] Comment on above: Performed By: #### L 100.0100 ####[facility] [address] [place], [address] MCV 100.7 fL High 81-99 [facility] Comment on above: Performed By: #### L 100.0100 ####[facility] [address] [place], [address] Monocytes/100 leukocytes 8.0 % Normal 0-10 [facility] Comment on above: Performed By: #### L 100.0100 ####[facility] [address] [place], [address] Neutrophils/100 WBC Auto (Bld) 61.9 % Normal 47-70 [facility] Comment on above: Performed By: #### L 100.0100 ####[facility] [address] [place], [address] Platelet mean volume (PMV) 9.4 fL Normal 6.2-12.0 [facility] Comment on above: Performed By: #### L 100.0100 ####[facility] [address] [place], [address] Platelets 458 10*3/uL High 150-450 [facility] Comment on above: Performed By: #### L 100.0100 ####[facility] [address] [place], [address] PLT EST ADEQUATE Normal ADEQ [facility] Comment on above: Performed By: #### L 100.0100 ####[facility] [address] [place], [address] RDW SD 46.1 fl High 35.1-43.9 [facility] Comment on above: Performed By: #### L 100.0100 ####[facility] [address] [place], [address] SMEAR COMMENT SCANNED Normal [facility] Comment on above: Performed By: #### L 100.0100 ####[facility] [address] [place], [address] WBC (Leukocytes) 10.1 10*3/uL Normal 4.4-11.0 [facility] Comment on above: Performed By: #### L 100.0100 ####[facility] [address] [place], [address] Comprehensive Metabolic Prof ilon 07-19-2017 A/G 0.5 RATIO Low 0.9-2.4 [facility] Comment on above: Performed By: #### L 500.4050 ####[facility] [address] [place], [address] Alanine aminotransferase (ALT) 24 U/L Normal 12-78 [facility] Comment on above: Performed By: #### L 500.4050 ####[facility] [address] [place], [address] Albumin 2.0 g/dL Low 3.4-5.0 [facility] Comment on above: Result Comment: Sharon martin note revised Albumin AND Globulin reference rangeeffective 2017. Performed By: #### L 500.4050 ####[facility] [address] [place], [address] Alkaline phosphatase (ALP) 43 U/L Low 45-117 [facility] Comment on above: Performed By: #### L 500.4050 ####[facility] [address] [place], [address] Aspartate aminotransferase (AST) 27 U/L Normal 15-37 [facility] Comment on above: Performed By: #### L 500.4050 ####[facility] [address] [place], [address] Bilirubin (total) 0.20 mg/dL Normal 0.20-1.00 [facility] Comment on above: Performed By: #### L 500.4050 ####[facility] [address] [place], [address] BUN (urea nitrogen) 13.0 RATIO Normal 10-20 [facility] Comment on above: Performed By: #### L 500.4050 ####[facility] [address] [place], [address] Calcium 8.0 mg/dL Low 8.5-10.1 [facility] Comment on above: Performed By: #### L 500.4050 ####[facility] [address] [place], [address] Chloride 102 mmol/L Normal 98-107 [facility] Comment on above: Performed By: #### L 500.4050 ####[facility] [address] [place], [address] CO2 29.0 mmol/L Normal 21.0-32.0 [facility] Comment on above: Performed By: #### L 500.4050 ####[facility] [address] [place], [address] Creatinine 0.38 mg/dL Low 0.55-1.02 [facility] Comment on above: Result Comment: The validity of the calculated GFR AND GFRAA in patients over70 years has not been determined. Clinical correlation isessential. Performed By: #### L 500.4050 ####[facility] [address] [place], [address] eGFR (non-black) 180 mL/min/{1.73_m2} Normal >60 [facility] Comment on above: Result Comment: Non- GFR Calc Performed By: #### L 500.4050 ####[facility] [address] [place], [address] eGFR (non-black) 217 mL/min/{1.73_m2} Normal >60 [facility] Comment on above: Result Comment: Afri can [place] GFR Calc Performed By: #### L 500.4050 ####[facility] [address] [place], [address] Estimated CRCL 141.86 ml/min Normal [facility] Comment on above: Performed By: #### L 500.4050 ####[facility] [address] [place], [address] GAP 9 Normal 5-15 [facility] Comment on above: Performed By: #### L 500.4050 ####[facility] [address] [place], [address] Globulin 4.3 g/dL High 2.2-4.2 [facility] Comment on above: Performed By: #### L 500.4050 ####[facility] [address] [place], [address] Glucose mass conc 91 mg/dL Normal 70-110 [facility] Comment on above: Performed By: #### L 500.4050 ####[facility] [address] [place], [address] Potassium molar conc 3.3 mmol/L Low 3.5-5.1 [facility] Comment on above: Performed By: #### L 500.4050 ####[facility] [address] [place], [address] Sodium 140 mmol/L Normal 136-145 [facility] Comment on above: Performed By: #### L 500.4050 ####[facility] [address] [place], [address] T PROT 6.3 g/dL Low 6.4-8.2 [facility] Comment on above: Performed By: #### L 500.4050 ####[facility] [address] [place], [address] Urea nitrogen 5 mg/dL Low 7-18 [facility] Comment on above: Performed By: #### L 500.4050 ####[facility] [address] [place], [address] Discharge Instructionon Discharge Instruction [facility] [address] [place], [place] [address]Bnxqcwumxquh for Home/Discharge Xachpsumkroi65/04/17 1134#: [id number] Acct: [id number]: SUSAN CALDERON Rep #: [id number]: 1955 62 [...] time, thank you07/19/17 1519 Date Susan June [facility]: Cee Christianson MD Normal [facility] MRSA Wound DNA by PCRon MRSA RESULT Negative Normal Negative [facility] Comment on above: Order Comment: Comme nts: abdominal woundSpecimen Source? abdominal wound Performed By: #### L 8200.1075 ####[facility] [address] [place], [address] SA RESULT Negative Normal Negative [facility] Comment on above: Order Comment: Comme nts: abdominal woundSpecimen Source? abdominal wound Performed By: #### L 8200.1075 ####[facility] [address] [place], [address] Operative Reporton Operative Report [facility] [address] [place] [address]Fgifsmplq Ohbirs21/24/172023MR#: [id number] Acct: [id number]: SUSAN CALDERON Rep #: [id number]: 1955 62 From: Susan June MDPCP: Cee Christianson MD Status: DIS IN YLocation: MS2 CO204-2Tmfboj of OperationDate of Procedure: 07/09/17Pre-Operative Diagnosis: K 50.812 small bowel obstructionPost-Operative Diagnosis: Same, necrotic-appearing small bowelSurgery/Procedure Performed:: Diagnostic laparoscopy, converted to open exploratory laparotomy,lysis of adhesions, small bowel resectionDescription of Surgical Findings::dense adhesions in the area of previous hysterectomy with loop of bowel ileum twisted uponitself - appeared necroticConcern for retroperitoneal adhesions and bleeding and therefore intraoperative consultationwith Dr. Reaves was obtainedOR Assistant Accounting Manager: Dasha Reaves of Anesthesia:: GeneralAnesthesiologist: Cathy Hernandez [...] theopenings and fired, thus creating a stapled pams-mn-yias, functional end-to-end anastomosis.The resulting opening from the [...] openings and fired, thus creating a stapled jezu-jx-xyna,functional end-to-end anastomosis. The resulting opening from the [...] Prophylaxis ordered?: Yes07/19/17 1612 Date Susan June [facility]: Susan June MD; Cee Christianson MD Signed Normal [facility] Abdomen/Pelvis W IV Cont ONL Yon 07-17-2017 Abdomen/Pelvis W IV Cont ONLY [facility] [address] [place], [place] [address]Ypivkpv/Pelvis W IV Cont ONLYMR#: [id number] Acct: [id number]: SUSAN CALDERON Rep #: [id number]: 1955 F 62 From: Aravind Hernandez MDPCP: Cee Christianson MD Status: REG ERStudy: Abdomen/Pelvis W IV Cont ONLY Date of Exam: 07/17/17Exam# [id number] Ordering Dr: Kamini Rsoa MDSTUDY: CT ABDOMEN AND PELVIS WITH CONTRASTREASON [...] fusion from L4 to S1. ORDER #: [id number] CT/Abdomen/Pelvis W IV Cont ONLYIMPRESSION:Postoperati ve changes. Mild residual pneumoperitoneum on the right.Collection of the abdominal wall with possible abscess.N.B. : The above information has been verbally conveyed by Aravind Hernandez MD to Dr. Kamini Rosa , Referring Physician, on 07/17/2017 15:11:31(ET).Electronicall y Signed:Aravind Hernandez MD at 14:55 ESTTel , Service support , U.B. : The above information has been verbally conveyed by Aravind Hernandez MD to Dr. Kamini Rosa , Referring Physician, on 07/17/2017 15:11:31(ET).CC: Kamini Rosa MD; Cee Christianson MD Technology Support Analyst:Signed Normal [facility] Basic Metabolic Profile (BMP )on 07-17-2017 BUN (urea nitrogen) 11.7 RATIO Normal 10-20 [facility] Comment on above: Performed By: #### L 500.2500 ####[facility] [address] [place], [address] Calcium 8.4 mg/dL Low 8.5-10.1 [facility] Comment on above: Performed By: #### L 500.2500 ####[facility] [address] [place], [address] Chloride 94 mmol/L Low 98-107 [facility] Comment on above: Performed By: #### L 500.2500 ####[facility] [address] [place], [address] CO2 34.0 mmol/L High 21.0-32.0 [facility] Comment on above: Performed By: #### L 500.2500 ####[facility] [address] [place], [address] Creatinine 0.43 mg/dL Low 0.55-1.02 [facility] Comment on above: Result Comment: The validity of the calculated GFR AND GFRAA in patients over70 years has not been determined. Clinical correlation isessential. Performed By: #### L 500.2500 ####[facility] [address] [place], [address] eGFR (non-black) 159 mL/min/{1.73_m2} Normal >60 [facility] Comment on above: Result Comment: Non- GFR Calc Performed By: #### L 500.2500 ####[facility] [address] [place], [address] eGFR (non-black) 193 mL/min/{1.73_m2} Normal >60 [facility] Comment on above: Result Comment: Afri can [place] GFR Calc Performed By: #### L 500.2500 ####[facility] [address] [place], [address] Estimated CRCL 125.36 ml/min Normal [facility] Comment on above: Performed By: #### L 500.2500 ####[facility] [address] [place], [address] GAP 8 Normal 5-15 [facility] Comment on above: Performed By: #### L 500.2500 ####[facility] [address] [place], [address] Glucose mass conc 98 mg/dL Normal 70-110 [facility] Comment on above: Performed By: #### L 500.2500 ####[facility] [address] [place], [address] Potassium molar conc 3.3 mmol/L Low 3.5-5.1 [facility] Comment on above: Performed By: #### L 500.2500 ####[facility] [address] [place], [address] Sodium 136 mmol/L Normal 136-145 [facility] Comment on above: Performed By: #### L 500.2500 ####[facility] [address] [place], [address] Urea nitrogen 5 mg/dL Low 7-18 [facility] Comment on above: Performed By: #### L 500.2500 ####[facility] [address] [place], [address] CBC W/Diff, Automatedon 12-0 2-2017 Absolute Neut 11.3 X10 3/uL High 2.0-7.7 [facility] Comment on above: Performed By: #### L 100.0100 ####[facility] [address] [place], [address] Basophils/100 WBC Auto (Bld) 0.3 % Normal 0-1 [facility] Comment on above: Performed By: #### L 100.0100 ####[facility] [address] [place], [address] Eosinophils/100 leukocytes 1.4 % Normal 0-5 [facility] Comment on above: Performed By: #### L 100.0100 ####[facility] [address] [place], [address] Erythrocyte distribution width Auto Ratio (RBC) 12.4 % Normal 11.6-14.6 [facility] Comment on above: Performed By: #### L 100.0100 ####[facility] [address] [place], [address] Erythrocytes (RBC) 3.08 M/mm3 Low 4.2-5.4 [facility] Comment on above: Performed By: #### L 100.0100 ####[facility] [address] [place], [address] Hematocrit (HCT) 31.1 % Low 37-47 [facility] Comment on above: Performed By: #### L 100.0100 ####[facility] [address] [place], [address] Hemoglobin mass conc (Bld) 10.0 g/dL Low 12.0-15.0 [facility] Comment on above: Performed By: #### L 100.0100 ####[facility] [address] [place], [address] IM GRAN % 0.400 % Normal 0.0-0.9 [facility] Comment on above: Result Comment: IG% - Immature Granulocytes (promyelocytes, myelocytes andmetamyelocytes) > 1% indicates that a LEFT SHIFT is Present. Performed By: #### L 100.0100 ####[facility] [address] [place], [address] Lymphocytes 2.05 X10 3/ul Normal 0.83-4.51 [facility] Comment on above: Performed By: #### L 100.0100 ####[facility] [address] [place], [address] Lymphocytes/100 leukocytes 14.0 % Low 19-41 [facility] Comment on above: Performed By: #### L 100.0100 ####[facility] [address] [place], [address] MCH 32.5 pg High 27.0-32.0 [facility] Comment on above: Performed By: #### L 100.0100 ####[facility] [address] [place], [address] MCHC mass conc (RBC) 32.2 g/gl Normal 32-36 [facility] Comment on above: Performed By: #### L 100.0100 ####[facility] [address] [place], [address] MCV 101.0 fL High 81-99 [facility] Comment on above: Performed By: #### L 100.0100 ####[facility] [address] [place], [address] Monocytes/100 leukocytes 6.4 % Normal 0-10 [facility] Comment on above: Performed By: #### L 100.0100 ####[facility] [address] [place], [address] Neutrophils/100 WBC Auto (Bld) 77.5 % High 47-70 [facility] Comment on above: Performed By: #### L 100.0100 ####[facility] [address] [place], [address] Platelet mean volume (PMV) 9.6 fL Normal 6.2-12.0 [facility] Comment on above: Performed By: #### L 100.0100 ####[facility] [address] [place], [address] Platelets 462 10*3/uL High 150-450 [facility] Comment on above: Performed By: #### L 100.0100 ####[facility] [address] [place], [address] RDW SD 46.1 fl High 35.1-43.9 [facility] Comment on above: Performed By: #### L 100.0100 ####[facility] [address] [place], [address] WBC (Leukocytes) 14.6 10*3/uL High 4.4-11.0 [facility] Comment on above: Performed By: #### L 100.0100 ####[facility] [address] [place], [address] Chest 1 View (Portable)on Chest 1 View (Portable) [facility] [address] [place], [place] [address]Uxrdj 1 View (Portable)MR#: [id number] Acct: [id number]: SUSAN CALDERON Lance Rep #: [id number]: 1955 F 62 From: Aravind Hernandez MDPCP: Cee Christianson MD Status: REG ERStudy: Chest 1 View (Portable) Date of Exam: 07/17/17Exam# [id number] Ordering Dr: Mendoza Kline MDSTUDY: X-RAY CHESTREASON [...] tissuestructures of the upper abdomen. ORDER #: [id number] RAD/Chest 1 View (Portable)IMPRESSION:Degen erative changes, as described above. No demonstrated acutecardiopulmonary process.Electronically Signed:Aravind Hernandez MD at 16:32 ESTTel , Service support , [place]: Cee Christianson MD; Mendoza Kline MD Technology Support Analyst:Signed Normal [facility] Emergency Department Summary on 07-17-2017 Emergency Department Summary [facility] [address] [facility] [place], [place] [address]Xgjdlaczr Department Konhbai70/02/17 1250#: [id number] Acct: [id number]: SHERRICALEBCECILIASUSAN A Rep #: [id number]: 1955 62 [...] is soft mildly tender with no rebound. Lorraine intact with surrounding erythema andpurulent drainage.Extremities are unremarkable.Skin is warm and dry.Remainder of exam is unremarkable.Emergency Department Course and Treatment: CBC shows a white count of 14.6. CT abd/pelvisshows fluid collection with possible abscess. Discussed with Dr Kline who will evaluate thepatient in the ED.Disposition: per Dr Brewstermpression: Post operative wound infectionThis note was generated with Etology.comation software. It may contain incorrect words,spelling, and punctuation that were not noted in review of the chart prior to signingED Disposition- Plan for ED Patient:Chief Complaint: Wound CheckReferrals:Amanda Christianson MD [Primary Care Provider] -What to do if you have ProblemsFor any increased pain, shortness of breath, bleeding, nausea or vomiting, chest pain, or anyunexpected problems, contact your Primary Care Provider. Call [facility] ([phone])or report to the closest Emergency Room.Call 911 if necessary.07/17/[address] [facility] Signature (If Indicated): Date CC: Cee Christianson MD [facility] History and Physical Examon 07-17-2017 History and Physical Exam [facility] [address] [place], [place] [address]Ctknzdy and Zkmbngif48/02/17 1613MR#: [id number] Acct: [id number]: SUSAN CALDERON Rep #: [id number]: 1955 62 [...] with iodoform gauze.07/17/17 1622 Date [facility] Signature: Date (if applicable)CC: Cee Christianson MD; Mendoza Kline MD Signed Normal [facility] History and Physical Exam [facility] [address] [place], [place] [address]Tuftmnw and Fgqvnaxf10/02/17 1618MR#: [id number] Acct: [id number]: SUSAN CALDERON Rep #: [id number]: 1955 62 [...] No pertinent psych hxGYN History: No pertinent HELICOPTER REPAIRER historySmoking Status: Current some day smoker- *Family [...] at the umbilicus and along themidline incision. Lorraine were removed above and below the incision [...] Christianson MD; Mendoza Kline MD Signed Normal [facility] Basic Metabolic Profile (BMP )on 07-15-2017 BUN (urea nitrogen) 11.9 RATIO Normal 10-20 [facility] Comment on above: Performed By: #### L 500.2500 ####[facility] [address] [place], [address] Calcium 8.1 mg/dL Low 8.5-10.1 [facility] Comment on above: Performed By: #### L 500.2500 ####[facility] [address] [place], [address] Chloride 102 mmol/L Normal 98-107 [facility] Comment on above: Performed By: #### L 500.2500 ####[facility] [address] [place], [address] CO2 25.0 mmol/L Normal 21.0-32.0 [facility] Comment on above: Performed By: #### L 500.2500 ####[facility] [address] [place], [address] Creatinine 0.34 mg/dL Low 0.55-1.02 [facility] Comment on above: Result Comment: The validity of the calculated GFR AND GFRAA in patients over70 years has not been determined. Clinical correlation isessential. Performed By: #### L 500.2500 ####[facility] [address] [place], [address] eGFR (non-black) 210 mL/min/{1.73_m2} Normal >60 [facility] Comment on above: Result Comment: Non- GFR Calc Performed By: #### L 500.2500 ####[facility] [address] [place], [address] eGFR (non-black) 254 mL/min/{1.73_m2} Normal >60 [facility] Comment on above: Result Comment: Afri can [place] GFR Calc Performed By: #### L 500.2500 ####[facility] [address] [place], [address] Estimated CRCL 158.55 ml/min Normal [facility] Comment on above: Performed By: #### L 500.2500 ####[facility] [address] [place], [address] GAP 10 Normal 5-15 [facility] Comment on above: Performed By: #### L 500.2500 ####[facility] [address] [place], [address] Glucose mass conc 77 mg/dL Normal 70-110 [facility] [facility] Comment on above: Performed By: #### L 500.2500 ####[facility] [address] [place], [address] Potassium molar conc 4.3 mmol/L Normal 3.5-5.1 [facility] Comment on above: Result Comment: Mode rate Hemolysis, Result may be falsely increased. Performed By: #### L 500.2500 ####[facility] [address] [place], [address] Sodium 137 mmol/L Normal 136-145 [facility] Comment on above: Performed By: #### L 500.2500 ####[facility] [address] [place], [address] Urea nitrogen 4 mg/dL Low 7-18 [facility] Comment on above: Performed By: #### L 500.2500 ####[facility] [address] [place], [address] Discharge Instructionon 06-18 Discharge Instruction [facility] [address] [place], [place] [address]Evmixachm Tsdwleovynr66/30/17 1617#: [id number] Acct: [id number]: SUSAN CALDERON Rep #: [id number]: 1955 62 [...] your Primary Care Provider. Call [facility] ([phone])or report to the closest Emergency Room.Call 911 if necessary.07/15/17 1648 Date Stefano Garcia [facility] Signature (If Indicated): Date CC: Cee Christianson MD Normal [facility] Emergency Department Summary on 07-15-2017 Emergency Department Summary [facility] [address] [place] [address]Bpejgmleo Department Tgvpvlk77/30/17 1613MR#: [id number] Acct: [id number]: SUSAN CALDERON Rep #: [id number]: 1955 62 From: Stefano Garcia MDPCP: Cee Christianson MD Status: DEP ER- ER Visit SummaryDate of Service: 07/15/17Chief Complaint: Lower leg swellingHistory of Present Illness: The patient is a 62 F [facility] with a partial [...] small bowel resectionThis note was generated with JollyDeck dictation software. It may contain incorrect words,spelling, and punctuation that were not noted in review of the chart prior to signingED Disposition- Plan for ED Patient:Chief Complaint: EdemaReferrals:Amanda Christianson MD [Primary Care Provider] -What to do if you have ProblemsFor any increased pain, shortness of breath, bleeding, nausea or vomiting, chest pain, or anyunexpected problems, contact your Primary Care Provider. Call [facility] ([phone])or report to the closest Emergency Room.Call 911 if necessary.07/15/17 1648 Date Stefano Garcia [facility] Signature (If Indicated): Date CC: Cee Christianson MD Normal [facility] Discharge Instructionon 06-17 Discharge Instruction [facility] [address] [place] [address]Rledqznuihyx for Home/Discharge Zudzhmptfxvs86/29/17 1139MR#: [id number] Acct: [id number]: SUSAN CALDERON Rep #: [id number]: 1955 62 [...] MDCC: Susan June MD; Cee Christianson MD [facility] Discharge Summaryon 07-14-20 17 Discharge Summary [facility] [address] [place], [place] [address]Qnsefgmyp Roroavk83/29/17 1331MR#: [id number] Acct: [id number]: SUSAN CALDERON Rep #: [id number]: 1955 62 From: Mayra Lloyd MDPCP: Cee Christianson MD Status: DIS IN YLocation: MS2 LU132-6Iqlvmonhz Date and DiagnosisDate of Admission: 07/07/17Date of [...] Signed:Deanna Beltran MD at 17:33 ESTTel Direct: [phone], Service support , Dqrbdhq/Pelvis CT 07/07/17 18:52IMPRESSION:The fluid-filled tubular structures in [...] Signed:Deanna Beltran MD at 22:30 ESTTel Direct: [phone], Service support , WWK X-Ray 07/07/17 22:58IMPRESSION:The tip of the nasogastric tube is in the expected location of the body ofthe stomach.Electronically Signed:Deanna Beltran MD at 23:55 ESTTel Direct: [phone], Service support , SGZ X-Ray 07/08/17 05:55IMPRESSION:Unremarkab le abdominal bowel gas pattern.Electronically Signed:Andrei Prather DO at 9:51 ESTTel , Service support , Mnbmw Abdomen Series 07/09/17 07:27IMPRESSION:Enteric tube is visualized with the tip in the distal portion of thestomach.Gas pattern is unremarkable.Mild increased markings at the lung bases suggestive of mild basilaratelectasis.Electro nically Signed:Mikal Brambila MD at 9:43 ESTTel [phone], Service support , Tidngls X-Ray 07/09/17 14:00IMPRESSION:Mildly dilated small bowel loops in the upper abdomen with air-fluidlevels. This has worsened since prior study.Electronically Signed:Mikal Brambila MD at 15:36 ESTTel [phone], Service support , Kgxlijc, Dr. JuneOperations: - - Exploratory laparotomy, adhesiolysis, small bowel resectionProcedures: NoneSummary of Care Provided:62-year-old lady admitted with abdominal pain associated with nausea and vomiting. CT of theabdomen obtained in the ED demonstrated small bowel loops dilatation consistent with smallbowel obstruction. Patient underwent diagnostic laparoscopy, converted to open exploratorylaparotomy, lysis of adhesions, small bowel resection on 07/09/[address] Ssuan June1. Small bowel obstruction, status post exploratory [...] Use Diagnoses (Choose all that apply): None aszougwexy82/29/17 1804 Date Ama Paintsil MDCosigner Signature (if applicable): Date CC: Mayra Lloyd MD; Cee Christianson MD Signed Normal [facility] Basic Metabolic Profile (BMP )on 07-12-2017 BUN (urea nitrogen) 34.5 RATIO High 10-20 [facility] Comment on above: Performed By: #### L 500.2500 ####[facility] [address] [place], [address] Calcium 7.6 mg/dL Low 8.5-10.1 [facility] Comment on above: Performed By: #### L 500.2500 ####[facility] [address] [place], [address] Chloride 114 mmol/L High 98-107 [facility] Comment on above: Performed By: #### L 500.2500 ####[facility] [address] [place], [address] CO2 21.0 mmol/L Normal 21.0-32.0 [facility] Comment on above: Performed By: #### L 500.2500 ####[facility] [address] [place], [address] Creatinine 0.26 mg/dL Low 0.55-1.02 [facility] Comment on above: Result Comment: The validity of the calculated GFR AND GFRAA in patients over70 years has not been determined. Clinical correlation isessential. Performed By: #### L 500.2500 ####[facility] [address] [place], [address] eGFR (non-black) 280 mL/min/{1.73_m2} Normal >60 [facility] Comment on above: Result Comment: Non- GFR Calc Performed By: #### L 500.2500 ####[facility] [address] [place], [address] eGFR (non-black) 339 mL/min/{1.73_m2} Normal >60 [facility] Comment on above: Result Comment: Afri can [place] GFR Calc Performed By: #### L 500.2500 ####[facility] [address] [place], [address] Estimated CRCL 207.33 ml/min Normal [facility] Comment on above: Performed By: #### L 500.2500 ####[facility] [address] [place], [address] GAP 9 Normal 5-15 [facility] Comment on above: Performed By: #### L 500.2500 ####[facility] [address] [place], [address] Glucose mass conc 82 mg/dL Normal 70-110 [facility] Comment on above: Performed By: #### L 500.2500 ####[facility] [address] [place], [address] Potassium molar conc 3.5 mmol/L Normal 3.5-5.1 [facility] Comment on above: Performed By: #### L 500.2500 ####[facility] [address] [place], [address] Sodium 144 mmol/L Normal 136-145 [facility] Comment on above: Performed By: #### L 500.2500 ####[facility] [address] [place], [address] Urea nitrogen 9 mg/dL Normal 7-18 [facility] Comment on above: Performed By: #### L 500.2500 ####[facility] [address] [place], [address] CBC-Complete Blood Cnt No Di ffon 07-12-2017 Erythrocyte distribution width Auto Ratio (RBC) 12.3 % Normal 11.6-14.6 [facility] Comment on above: Performed By: #### L 500.2500 ####[facility] [address] [place], [address] Erythrocytes (RBC) 2.74 M/mm3 Low 4.2-5.4 [facility] Comment on above: Performed By: #### L 500.2500 ####[facility] [address] [place], [address] Hematocrit (HCT) 28.1 % Low 37-47 [facility] Comment on above: Performed By: #### L 500.2500 ####[facility] [address] [place], [address] Hemoglobin mass conc (Bld) 9.0 g/dL Low 12.0-15.0 [facility] Comment on above: Performed By: #### L 500.2500 ####[facility] [address] [place], [address] MCH 32.8 pg High 27.0-32.0 [facility] Comment on above: Performed By: #### L 500.2500 ####[facility] [address] [place], [address] MCHC mass conc (RBC) 32.0 g/gl Normal 32-36 [facility] Comment on above: Performed By: #### L 500.2500 ####[facility] [address] [place], [address] MCV 102.6 fL High 81-99 [facility] Comment on above: Performed By: #### L 500.2500 ####[facility] [address] [place], [address] Platelet mean volume (PMV) 9.0 fL Normal 6.2-12.0 [facility] Comment on above: Performed By: #### L 500.2500 ####[facility] [address] [place], [address] Platelets 292 10*3/uL Normal 150-450 [facility] Comment on above: Performed By: #### L 500.2500 ####[facility] [address] [place], [address] RDW SD 46.4 fl High 35.1-43.9 [facility] Comment on above: Performed By: #### L 500.2500 ####[facility] [address] [place], [address] WBC (Leukocytes) 10.3 10*3/uL Normal 4.4-11.0 [facility] Comment on above: Performed By: #### L 500.2500 ####[facility] [address] [place], [address] Magnesiumon 07-12-2017 Magnesium 2.0 mg/dL Normal 1.8-2.4 [facility] Comment on above: Performed By: #### L 500.2500 ####[facility] [address] [place], [address] Basic Metabolic Profile (BMP )on 07-11-2017 BUN (urea nitrogen) 23.7 RATIO High 10-20 [facility] Comment on above: Performed By: #### L 500.2500 ####[facility] [address] [place], [address] Calcium 7.6 mg/dL Low 8.5-10.1 [facility] Comment on above: Performed By: #### L 500.2500 ####[facility] [address] [place], [address] Chloride 110 mmol/L High 98-107 [facility] Comment on above: Performed By: #### L 500.2500 ####[facility] [address] [place], [address] CO2 20.0 mmol/L Low 21.0-32.0 [facility] Comment on above: Performed By: #### L 500.2500 ####[facility] [address] [place], [address] Creatinine 0.38 mg/dL Low 0.55-1.02 [facility] Comment on above: Result Comment: The validity of the calculated GFR AND GFRAA in patients over70 years has not been determined. Clinical correlation isessential. Performed By: #### L 500.2500 ####[facility] [address] [place], [address] eGFR (non-black) 221 mL/min/{1.73_m2} Normal >60 [facility] Comment on above: Result Comment: Afri can [place] GFR Calc Performed By: #### L 500.2500 ####[facility] [address] [place], [address] eGFR (non-black) 182 mL/min/{1.73_m2} Normal >60 [facility] Comment on above: Result Comment: Non- GFR Calc Performed By: #### L 500.2500 ####[facility] [address] [place], [address] Estimated CRCL 141.86 ml/min Normal [facility] Comment on above: Performed By: #### L 500.2500 ####[facility] [address] [place], [address] GAP 11 Normal 5-15 [facility] Comment on above: Performed By: #### L 500.2500 ####[facility] [address] [place], [address] Glucose mass conc 115 mg/dL High 70-110 [facility] Comment on above: Result Comment: Fast ing Glucose result from 110 to <126 mg/dLsuggests IMPAIRED HOMEOSTASIS per A.D.A. criteria. Performed By: #### L 500.2500 ####[facility] [address] [place], [address] Potassium molar conc 3.8 mmol/L Normal 3.5-5.1 [facility] Comment on above: Performed By: #### L 500.2500 ####[facility] [address] [place], [address] Sodium 141 mmol/L Normal 136-145 [facility] Comment on above: Performed By: #### L 500.2500 ####[facility] [address] [place], [address] Urea nitrogen 9 mg/dL Normal 7-18 [facility] Comment on above: Performed By: #### L 500.2500 ####[facility] [address] [place], [address] Basic Metabolic Profile (BMP )on 07-10-2017 BUN (urea nitrogen) 18.1 RATIO Normal 10-20 [facility] Comment on above: Performed By: #### L 500.2500 ####[facility] [address] [place], [address] Calcium 7.5 mg/dL Low 8.5-10.1 [facility] Comment on above: Performed By: #### L 500.2500 ####[facility] [address] [place], [address] Chloride 107 mmol/L Normal 98-107 [facility] Comment on above: Performed By: #### L 500.2500 ####[facility] [address] [place], [address] CO2 19.0 mmol/L Low 21.0-32.0 [facility] Comment on above: Performed By: #### L 500.2500 ####[facility] [address] [place], [address] Creatinine 0.39 mg/dL Low 0.55-1.02 [facility] Comment on above: Result Comment: The validity of the calculated GFR AND GFRAA in patients over70 years has not been determined. Clinical correlation isessential. Performed By: #### L 500.2500 ####[facility] [address] [place], [address] eGFR (non-black) 215 mL/min/{1.73_m2} Normal >60 [facility] Comment on above: Result Comment: Afri can [place] GFR Calc Performed By: #### L 500.2500 ####[facility] [address] [place], [address] eGFR (non-black) 178 mL/min/{1.73_m2} Normal >60 [facility] Comment on above: Result Comment: Non- GFR Calc Performed By: #### L 500.2500 ####[facility] [address] [place], [address] Estimated CRCL 138.22 ml/min Normal [facility] Comment on above: Performed By: #### L 500.2500 ####[facility] [address] [place], [address] GAP 11 Normal 5-15 [facility] Comment on above: Performed By: #### L 500.2500 ####[facility] [address] [place], [address] Glucose mass conc 120 mg/dL High 70-110 [facility] Comment on above: Result Comment: Fast ing Glucose result from 110 to <126 mg/dLsuggests IMPAIRED HOMEOSTASIS per A.D.A. criteria. Performed By: #### L 500.2500 ####[facility] [address] [place], [address] Potassium molar conc 3.9 mmol/L Normal 3.5-5.1 [facility] Comment on above: Performed By: #### L 500.2500 ####[facility] [address] [place], [address] Sodium 137 mmol/L Normal 136-145 [facility] Comment on above: Performed By: #### L 500.2500 ####[facility] [address] [place], [address] Urea nitrogen 7 mg/dL Normal 7-18 [facility] Comment on above: Performed By: #### L 500.2500 ####[facility] [address] [place], [address] CBC-Complete Blood Cnt No Di ffon 07-10-2017 Erythrocyte distribution width Auto Ratio (RBC) 12.4 % Normal 11.6-14.6 [facility] Comment on above: Performed By: #### L 500.2500 ####[facility] [address] [place], [address] Erythrocytes (RBC) 3.53 M/mm3 Low 4.2-5.4 [facility] Comment on above: Performed By: #### L 500.2500 ####[facility] [address] [place], [address] Hematocrit (HCT) 36.0 % Low 37-47 [facility] Comment on above: Performed By: #### L 500.2500 ####[facility] [address] [place], [address] Hemoglobin mass conc (Bld) 11.6 g/dL Low 12.0-15.0 [facility] Comment on above: Performed By: #### L 500.2500 ####[facility] [address] [place], [address] MCH 32.9 pg High 27.0-32.0 [facility] Comment on above: Performed By: #### L 500.2500 ####[facility] [address] [place], [address] MCHC mass conc (RBC) 32.2 g/gl Normal 32-36 [facility] Comment on above: Performed By: #### L 500.2500 ####[facility] [address] [place], [address] MCV 102.0 fL High 81-99 [facility] Comment on above: Performed By: #### L 500.2500 ####[facility] [address] [place], [address] Platelet mean volume (PMV) 10.0 fL Normal 6.2-12.0 [facility] Comment on above: Performed By: #### L 500.2500 ####[facility] [address] [place], [address] Platelets 291 10*3/uL Normal 150-450 [facility] Comment on above: Performed By: #### L 500.2500 ####[facility] [address] [place], [address] RDW SD 46.2 fl High 35.1-43.9 [facility] Comment on above: Performed By: #### L 500.2500 ####[facility] [address] [place], [address] WBC (Leukocytes) 12.6 10*3/uL High 4.4-11.0 [facility] Comment on above: Performed By: #### L 500.2500 ####[facility] [address] [place], [address] Abd Inc Decub and/or Erecton 07-09-2017 Abd Inc Decub and/or Erect [facility] [address] [place] [address] 647[address]Mef Inc Decub and/or ErectMR#: [id number] Acct: [id number]: SUSAN CALDERON Rep #: [id number]: 1955 F 62 From: Mikal Brambila MDPCP: Cee Chirstianson MD Status: ADM INStudy: Abd Inc Decub and/or Erect Date of Exam: 07/09/17Exam# [id number] Ordering Dr: Susan June MDSTUDY: X-RAY - [...] fusion in the lowerlumbar spine. ORDER #: [id number] RAD/Abd Inc Decub and/or ErectIMPRESSION:Mildly dilated small bowel loops in the upper abdomen with air-fluidlevels. This has worsened since prior study.Electronically Signed:Mikal Brambila MD at 15:36 ESTTel [phone], Service support , ZU: Susan June MD; Cee Christianson MD Technology Support Analyst:Signed Normal [facility] Acute Abd Inc Chest (Portabl e)on 07-09-2017 Acute [employer] Inc Chest (Portable) [facility] [address] [place] [address]44[address]Apjwq Abd Inc Chest (Portable)MR#: [id number] Acct: [id number]: SUSAN CALDERON Rep #: [id number]: 1955 F 62 From: Mikal Brambila MDPCP: Cee Christianson MD Status: ADM INStudy: Acute Abd Inc Chest (Portable) Date of Exam: 07/09/17Exam# [id number] Ordering Dr: Maycol Tubbs MDSTUDY: X-RAY - [...] disc space narrowing and spondylosis. ORDER #: [id number] RAD/Acute Abd Inc Chest (Portable)IMPRESSION:Enter ic tube is visualized with the tip in the distal portion of thestomach.Gas pattern is unremarkable.Mild increased markings at the lung bases suggestive of mild basilaratelectasis.Electro nically Signed:Mikal Brambila MD at 9:43 ESTTel [phone], Service support , MM: Maycol Tubbs MD; Cee Christianson MD Technology Support Analyst:Signed Normal [facility] Basic Metabolic Profile (BMP )on 07-09-2017 BUN (urea nitrogen) 9.9 RATIO Low 10-20 [facility] Comment on above: Performed By: #### L 100.0100 ####[facility] [address] [place], [address] Calcium 8.1 mg/dL Low 8.5-10.1 [facility] Comment on above: Performed By: #### L 100.0100 ####[facility] [address] [place], [address] Chloride 100 mmol/L Normal 98-107 [facility] Comment on above: Performed By: #### L 100.0100 ####[facility] [address] [place], [address] CO2 24.0 mmol/L Normal 21.0-32.0 [facility] Comment on above: Performed By: #### L 100.0100 ####[facility] [address] [place], [address] Creatinine 0.40 mg/dL Low 0.55-1.02 [facility] Comment on above: Result Comment: The validity of the calculated GFR AND GFRAA in patients over70 years has not been determined. Clinical correlation isessential. Performed By: #### L 100.0100 ####[facility] [address] [place], [address] eGFR (non-black) 206 mL/min/{1.73_m2} Normal >60 [facility] Comment on above: Result Comment: Afri can [place] GFR Calc Performed By: #### L 100.0100 ####[facility] [address] [place], [address] eGFR (non-black) 170 mL/min/{1.73_m2} Normal >60 [facility] Comment on above: Result Comment: Non- GFR Calc Performed By: #### L 100.0100 ####[facility] [address] [place], [address] Estimated CRCL 134.76 ml/min Normal [facility] Comment on above: Performed By: #### L 100.0100 ####[facility] [address] [place], [address] GAP 8 Normal 5-15 [facility] Comment on above: Performed By: #### L 100.0100 ####[facility] [address] [place], [address] Glucose mass conc 107 mg/dL Normal 70-110 [facility] Comment on above: Performed By: #### L 100.0100 ####[facility] [address] [place], [address] Potassium molar conc 4.1 mmol/L Normal 3.5-5.1 [facility] Comment on above: Performed By: #### L 100.0100 ####[facility] [address] [place], [address] Sodium 132 mmol/L Low 136-145 [facility] Comment on above: Performed By: #### L 100.0100 ####[facility] [address] [place], [address] Urea nitrogen 4 mg/dL Low 7-18 [facility] Comment on above: Performed By: #### L 100.0100 ####[facility] [address] [place], [address] CBC-Complete Blood Cnt No Di ffon 07-09-2017 Erythrocyte distribution width Auto Ratio (RBC) 12.1 % Normal 11.6-14.6 [facility] Comment on above: Performed By: #### L 100.0100 ####[facility] [address] [place], [address] Erythrocytes (RBC) 3.62 M/mm3 Low 4.2-5.4 [facility] Comment on above: Performed By: #### L 100.0100 ####[facility] [address] [place], [address] Hematocrit (HCT) 36.6 % Low 37-47 [facility] Comment on above: Performed By: #### L 100.0100 ####[facility] [address] [place], [address] Hemoglobin mass conc (Bld) 12.0 g/dL Normal 12.0-15.0 [facility] Comment on above: Performed By: #### L 100.0100 ####[facility] [address] [place], [address] MCH 33.1 pg High 27.0-32.0 [facility] Comment on above: Performed By: #### L 100.0100 ####[facility] [address] [place], [address] MCHC mass conc (RBC) 32.8 g/gl Normal 32-36 [facility] Comment on above: Performed By: #### L 100.0100 ####[facility] [address] [place], [address] MCV 101.1 fL High 81-99 [facility] Comment on above: Performed By: #### L 100.0100 ####[facility] [address] [place], [address] Platelet mean volume (PMV) 9.6 fL Normal 6.2-12.0 [facility] Comment on above: Performed By: #### L 100.0100 ####[facility] [address] [place], [address] Platelets 265 10*3/uL Normal 150-450 [facility] Comment on above: Performed By: #### L 100.0100 ####[facility] [address] [place], [address] RDW SD 44.9 fl High 35.1-43.9 [facility] Comment on above: Performed By: #### L 100.0100 ####[facility] [address] [place], [address] WBC (Leukocytes) 16.0 10*3/uL High 4.4-11.0 [facility] Comment on above: Performed By: #### L 100.0100 ####[facility] [address] [place], [address] COLON (NO NEOPLASM)on 2016 COLON (NO NEOPLASM) Patient: JUSTICE CALDERON : 1955 (62/F) Acct Num: [id number] Phys: Mayra Lloyd MD Unit Num: [id number] Loc: MS2 [id number] Specimen: [id number] Received: 07/12/17 - 1309 Spec Type: COLON [...] Also received in the container is a ykbd-kq-hlgz anastomosis of bowel measuring 4 cm in [...] and no lesion is identified in the qkjl-cv-hljk anastomosis portion ofthe bowel. The mesenteric section of the mesenteric tissue does not reveal any lesion. Cpr Instructor sections are submitted in six cassettes as follows: 1 appendix, 2 small bowel with ighm-gl-fcax anastomosis, 3-6 larger segment ofbowel (3 resection margins, 4 ulcerated and hemorrhagic area, central portion, 5 edematous mucosa, terminal portion and 6 mesenteric tissue). / SJ:mitch 07/13/17 TC:5 CPT: 63207, 57642 HEADER OPERATION: Diagnostic laparoscopy converted to open small bowel resection, lysisof adhesions, appendectomy PRE-OP DIAGNOSIS: Small bowel obstruction TISSUE SUBMITTED: Small bowel section and appendix MICROSCOPIC DESCRIPTION Slides are reviewed. MICROSCOPIC DIAGNOSIS Small bowel section and appendix: Larger segment of bowel with extensive ulceration, transmural congestion, hemorrhage, acute inflammation and ischemic changes (central portion), clinically small bowel obstruction. Yjtc-iz-bfyd anastomosis segment of bowel with serosal, subserosal and underlying muscularis propria with acute inflammation and edema. Appendix, acute periappendicitis. SJ:mitch 07/14/17 Signed Charlie Bess 07/14/17 Normal [facility] Comment on above: Performed By: #### L 500.2500 ####[facility] [address] [place], [address] Consultationon 07-09-2017 Consultation [facility] [id number] [place], [place] [address]Qvtiioqfyziy71/23/17 0852MR#: [id number] Acct: [id number]: SUSAN CALDERON Rep #: [id number]: 1955 62 From: Susan June MDPCP: Cee Christianson MD Status: ADM IN YLocation: MS2 [id number] ConsultDate of Consult: 07/08/17- Reason for ConsultChief [...] no further questions..07/09/17 1652 Date Susan June [facility] Signature (if applicable): Date CC: Susan June MD; Cee Christianson MD Signed Normal [facility] Lactic Acidon 07-09-2017 Lactate 0.8 mmol/L Normal 0.4-2.0 [facility] Comment on above: Order Comment: Yes/N o query for Sepsis Lactate Rule Y Performed By: #### L 100.0100 ####[facility] [address] [facility] [place], [address] Magnesiumon 07-09-2017 Magnesium 2.0 mg/dL Normal 1.8-2.4 [facility] Comment on above: Performed By: #### L 100.0100 ####[facility] [address] [place], [address] Operative Reporton 7 Operative Report [facility] [id number] [place], [place] [address]Wahtklxzh Zswyzo69/24/17 1844#: [id number] Acct: [id number]: SUSAN CALDERON Rep #: [id number]: 1955 62 From: Ronnie Reaves MDPCP: Cee Christianson MD Status: ADM IN YLocation: MS2 [id number] of OperationDate of Procedure: 07/09/17Pre-Operative Diagnosis: K 50.812 small bowel obstructionPost-Operative Diagnosis: SameSurgery/Procedure Performed:: Assisted with lysis of adhesionsOR Assistant Accounting Manager: NoneOR Assistant Accounting Manager: Ronnie Reaves is the surgeonType of Anesthesia:: [...] ordered?: NoReason prophylaxis not ordered:: Treatment Not Stokztymx64/24/17 1853 Date Ronnie Reaves MDCC: Ronnie Reaves MD; Susan June MD; Cee Christianson MD Signed Normal [facility] Abdomen Single Viewon 2016 Abdomen Single View [facility] [address] [place], [place] [address]Mhzhmsn Single ViewMR#: [id number] Acct: [id number]: SUSAN CALDERON Rep #: [id number]: 1955 F 62 From: Andrei Prather DOPCP: Cee Christianson MD Status: ADM INStudy: Abdomen Single View Date of Exam: 07/08/17Exam# [id number] Ordering Dr: Nanci Casillas LSTUDY: X-RAY - [...] are seen within thelumbar spine. ORDER #: [id number] RAD/Abdomen Single ViewIMPRESSION:Unremarkabl e abdominal bowel gas pattern.Electronically Signed:Andrei Prather, [id number] at 9:51 ESTTel , Service support , FV: Nanci Casillas; Cee Christianson MD Technology Support Analyst:Signed Normal [facility] Abdomen Single View (Portabl e)on 07-08-2017 Abdomen Single View (Portable) [facility] [address] [place], [place] [address]Eeqpaqu Single View (Portable)MR#: [id number] Acct: [id number]: SUSAN CALDERON Lance Rep #: [id number]: 1955 F 62 From: Deanna Beltran MDPCP: Cee Christianson MD Status: ADM INStudy: Abdomen Single View (Portable) Date of Exam: 07/07/17Exam# [id number] Ordering Dr: Deanna Adhikari MDSTUDY: X-RAY - [...] in the lower lumbar spine. ORDER #: [id number] RAD/Abdomen Single View (Portable)IMPRESSION:The tip of the nasogastric tube is in the expected location of the body ofthe stomach.Electronically Signed:Deanna Beltran MD at 23:55 ESTTel Direct: [phone], Service support , EI: Deanna Adhikari MD; Cee Christianson MD Technology Support Analyst:Signed Normal [facility] Basic Metabolic Profile (BMP )on 07-08-2017 BUN (urea nitrogen) 12.7 RATIO Normal 10-20 [facility] Comment on above: Performed By: #### L 500.2500 ####[facility] [address] [place], [address] Calcium 7.9 mg/dL Low 8.5-10.1 [facility] Comment on above: Performed By: #### L 500.2500 ####[facility] [address] [place], [address] Chloride 96 mmol/L Low 98-107 [facility] Comment on above: Performed By: #### L 500.2500 ####[facility] [address] [place], [address] CO2 24.0 mmol/L Normal 21.0-32.0 [facility] Comment on above: Performed By: #### L 500.2500 ####[facility] [address] [place], [address] Creatinine 0.40 mg/dL Low 0.55-1.02 [facility] Comment on above: Result Comment: The validity of the calculated GFR AND GFRAA in patients over70 years has not been determined. Clinical correlation isessential. Performed By: #### L 500.2500 ####[facility] [address] [place], [address] eGFR (non-black) 174 mL/min/{1.73_m2} Normal >60 [facility] Comment on above: Result Comment: Non- GFR Calc Performed By: #### L 500.2500 ####[facility] [address] [place], [address] eGFR (non-black) 210 mL/min/{1.73_m2} Normal >60 [facility] Comment on above: Result Comment: Afri can [place] GFR Calc Performed By: #### L 500.2500 ####[facility] [address] [place], [address] Estimated CRCL 134.76 ml/min Normal [facility] Comment on above: Performed By: #### L 500.2500 ####[facility] [address] [place], [address] GAP 9 Normal 5-15 [facility] Comment on above: Performed By: #### L 500.2500 ####[facility] [address] [place], [address] Glucose mass conc 113 mg/dL High 70-110 [facility] Comment on above: Result Comment: Fast ing Glucose result from 110 to <126 mg/dLsuggests IMPAIRED HOMEOSTASIS per A.D.A. criteria. Performed By: #### L 500.2500 ####[facility] [address] [place], [address] Potassium molar conc 4.0 mmol/L Normal 3.5-5.1 [facility] Comment on above: Performed By: #### L 500.2500 ####[facility] [address] [place], [address] Sodium 129 mmol/L Low 136-145 [facility] Comment on above: Performed By: #### L 500.2500 ####[facility] [address] [place], [address] Urea nitrogen 5 mg/dL Low 7-18 [facility] Comment on above: Performed By: #### L 500.2500 ####[facility] [address] [place], [address] CBC W/Diff, Automatedon - Absolute Neut 9.8 X10 3/uL High 2.0-7.7 [facility] Comment on above: Performed By: #### L 100.0100 ####[facility] [address] [place], [address] Basophils/100 WBC Auto (Bld) 0.1 % Normal 0-1 [facility] Comment on above: Performed By: #### L 100.0100 ####[facility] [address] [place], [address] Eosinophils/100 leukocytes 0.4 % Normal 0-5 [facility] Comment on above: Performed By: #### L 100.0100 ####[facility] [address] [place], [address] Erythrocyte distribution width Auto Ratio (RBC) 11.7 % Normal 11.6-14.6 [facility] Comment on above: Performed By: #### L 100.0100 ####[facility] [address] [place], [address] Erythrocytes (RBC) 3.81 M/mm3 Low 4.2-5.4 [facility] Comment on above: Performed By: #### L 100.0100 ####[facility] [address] [place], [address] Hematocrit (HCT) 37.5 % Normal 37-47 [facility] Comment on above: Performed By: #### L 100.0100 ####[facility] [address] [place], [address] Hemoglobin mass conc (Bld) 12.6 g/dL Normal 12.0-15.0 [facility] Comment on above: Performed By: #### L 100.0100 ####[facility] [address] [place], [address] IM GRAN % 0.100 % Normal 0.0-0.9 [facility] Comment on above: Result Comment: IG% - Immature Granulocytes (promyelocytes, myelocytes andmetamyelocytes) > 1% indicates that a LEFT SHIFT is Present. Performed By: #### L 100.0100 ####[facility] [address] [place], [address] Lymphocytes 1.38 X10 3/ul Normal 0.83-4.51 [facility] Comment on above: Performed By: #### L 100.0100 ####[facility] [address] [place], [address] Lymphocytes/100 leukocytes 11.8 % Low 19-41 [facility] Comment on above: Performed By: #### L 100.0100 ####[facility] [address] [place], [address] MCH 33.1 pg High 27.0-32.0 [facility] Comment on above: Performed By: #### L 100.0100 ####[facility] [address] [place], [address] MCHC mass conc (RBC) 33.6 g/gl Normal 32-36 [facility] Comment on above: Performed By: #### L 100.0100 ####[facility] [address] [place], [address] MCV 98.4 fL Normal 81-99 [facility] Comment on above: Performed By: #### L 100.0100 ####[facility] [address] [place], [address] Monocytes/100 leukocytes 4.2 % Normal 0-10 [facility] Comment on above: Performed By: #### L 100.0100 ####[facility] [address] [place], [address] Neutrophils/100 WBC Auto (Bld) 83.4 % High 47-70 [facility] Comment on above: Performed By: #### L 100.0100 ####[facility] [address] [place], [address] Platelet mean volume (PMV) 9.5 fL Normal 6.2-12.0 [facility] Comment on above: Performed By: #### L 100.0100 ####[facility] [address] [place], [address] Platelets 273 10*3/uL Normal 150-450 [facility] Comment on above: Performed By: #### L 100.0100 ####[facility] [address] [place], [address] RDW SD 42.0 fl Normal 35.1-43.9 [facility] Comment on above: Performed By: #### L 100.0100 ####[facility] [address] [place], [address] WBC (Leukocytes) 11.7 10*3/uL High 4.4-11.0 [facility] Comment on above: Performed By: #### L 100.0100 ####[facility] [address] [place], [address] Emergency Department Summary on 07-08-2017 Emergency Department Summary [facility] [address] [place] [address]Kdgrzyplu Department Ghdjtza82/22/17 2301MR#: [id number] Acct: [id number]: SUSAN CALDERON Rep #: [id number]: 1955 62 From: De[facility]hikari [facility]: Cee Christianson MD Status: [...] 202/89, temperature 97.8, heart rate 62, respiratory rzzr23Eoxs neck examination is unremarkable.Heart is regular rate [...] Hyponatremia3. Urinary retentionThis note was generated with JollyDeck dictation software. It may contain incorrect words,spelling, [...] your Primary Care Provider. Call [facility] ([phone])or report to the closest Emergency Room.Call 911 if necessary.07/07/17 3712 Date Deanna Adhikari [facility] Signature (If Indicated): Date CC: Cee Christianson MD Normal [facility] Hemoglobin A1con 07-08-2017 Hemoglobin A1c/Hemoglobin.total mass fraction (Bld) 4.8 % Normal 4.2-6.3 [facility] Comment on above: Order Comment: ADDED TO BLOOD DRAWN IN ER Performed By: #### L 501.9985 ####[facility] [address] [place], [address] History and Physical Examon 07-08-2017 History and Physical Exam [facility] [address] [place] [address]Oqwvdci and Pncisvja25/22/17 2311#: [id number] Acct: [id number]: SUSAN CALDERON Rep #: [id number]: 1955 62 From: Nanci MartinezP: Cee Christianson MD Status: ADM IN YLocation: MS2 [id number] List(1) HTN (hypertension)Status: ChronicQualifiers:Hyperten mason type: essential [...] Allergic Rhinitis,Tobacco use who presents to the [facility] ED on 07/07/17 w/ history of mild difficulty urinating withno dysuria but decreased UOP 1 week prior w/ decreased oral intake and onset over the ltmk77-89 hours generalized abdominal discomfort w/ nausea with [...] No pertinent psych hxGYN History: No pertinent HELICOPTER REPAIRER historyLives: Spouse/ Significant OtherSmoking Status: Current every [...] Allergic Rhinitis,Tobacco use who presents to the [facility] ED on 07/07/17 w/ history of mild difficulty urinating withno dysuria but decreased UOP 1 week prior w/ decreased oral intake and onset over the gvgu18-64 hours generalized abdominal discomfort w/ nausea with [...] Nanci Casillas; Cee Christianson MD Signed Normal [facility] Abdomen/Pelvis WITH Contrast on 07-07-2017 Abdomen/Pelvis WITH Contrast [facility] [address] [place], [place] [address]Sbxwihc/Pelvis WITH ContrastMR#: [id number] Acct: [id number]: YOHANACECILIASUSAN A Rep #: [id number]: 1955 F 62 From: Deanna Beltran MDPCP: Myesha RUELAS,Cee Status: REG ERStudy: Abdomen/Pelvis WITH Contrast Date of Exam: 07/07/17Exam# [id number] Ordering Dr: Deanna Adhikari MDSTUDY: CT ABDOMEN [...] in the lower lumbar spine. ORDER #: [id number] CT/Abdomen/Pelvis WITH ContrastIMPRESSION:The fluid-filled tubular structures in [...] Signed:Deanna Beltran MD at 22:30 ESTTel Direct: [phone], Service support , VL: Deanna Adhikari MD; Cee Christianson MD Technology Support Analyst:Signed Normal [facility] Abdomen/Pelvis without Conto n 07-07-2017 Abdomen/Pelvis without Cont [facility] [address] [place], [place] [address]Bxfsbed/Pelvis without ContMR#: [id number] Acct: [id number]: SUSAN CALDERON Rep #: [id number]: 1955 F 62 From: Deanna Beltran MDPCP: Cee Christianson MD Status: REG ERStudy: Abdomen/Pelvis without Cont Date of Exam: 07/07/17Exam# [id number] Ordering Dr: Deanna Adhikari MDSTUDY: CT ABDOMEN [...] retrolisthesis of L3 on L4. ORDER #: [id number] CT/Abdomen/Pelvis without ContIMPRESSION:There is an elongated tubular structure in the right pelvis which can beseen with a hydrosalpinx. Differentiation from bowel is difficult withoutintravenous or oral contrast. Options for follow-up include a CT withintravenous and oral contrast or a pelvic ultrasound.There is minimal ascites in the pelvis.There is mild diverticulosis of the colon.Electronically Signed:Deanna Beltran MD at 17:33 ESTTel Direct: [phone], Service support , [place]: Deanna Adhikari MD; Cee Christianson MD Technology Support Analyst:Signed Normal [facility] Basic Metabolic Profile (BMP )on 07-07-2017 BUN (urea nitrogen) 18.0 RATIO Normal 10- [facility] Comment on above: Performed By: #### L 500.2500 ####[facility] [address] [place], [address] Calcium 9.0 mg/dL Normal 8.5-10.1 [facility] Comment on above: Performed By: #### L 500.2500 ####[facility] [address] [place], [address] Chloride 94 mmol/L Low 98-107 [facility] Comment on above: Performed By: #### L 500.2500 ####[facility] [address] [place], [address] CO2 22.0 mmol/L Normal 21.0-32.0 [facility] Comment on above: Performed By: #### L 500.2500 ####[facility] [address] [place], [address] Creatinine 0.56 mg/dL Normal 0.55-1.02 [facility] Comment on above: Result Comment: The validity of the calculated GFR AND GFRAA in patients over70 years has not been determined. Clinical correlation isessential. Performed By: #### L 500.2500 ####[facility] [address] [place], [address] eGFR (non-black) 142 mL/min/{1.73_m2} Normal >60 [facility] Comment on above: Result Comment: Afri can [place] GFR Calc Performed By: #### L 500.2500 ####[facility] [address] [place], [address] eGFR (non-black) 117 mL/min/{1.73_m2} Normal >60 [facility] Comment on above: Result Comment: Non- GFR Calc Performed By: #### L 500.2500 ####[facility] [address] [place], [address] Estimated CRCL 96.26 ml/min Normal [facility] Comment on above: Performed By: #### L 500.2500 ####[facility] [address] [place], [address] GAP 13 Normal 5-15 [facility] Comment on above: Performed By: #### L 500.2500 ####[facility] [address] [place], [address] Glucose mass conc 117 mg/dL High 70-110 [facility] Comment on above: Result Comment: Fast ing Glucose result from 110 to <126 mg/dLsuggests IMPAIRED HOMEOSTASIS per A.D.A. criteria. Performed By: #### L 500.2500 ####[facility] [address] [place], [address] Potassium molar conc 3.6 mmol/L Normal 3.5-5.1 [facility] Comment on above: Performed By: #### L 500.2500 ####[facility] [address] [place], [address] Sodium 129 mmol/L Low 136-145 [facility] Comment on above: Performed By: #### L 500.2500 ####[facility] [address] [place], [address] Urea nitrogen 10 mg/dL Normal 7-18 [facility] Comment on above: Performed By: #### L 500.2500 ####[facility] [address] [place], [address] CBC W/Diff, Automatedon 11-2 -2016 Absolute Neut 6.0 X10 3/uL Normal 2.0-7.7 [facility] Comment on above: Performed By: #### L 100.0100 ####[facility] [address] [place], [address] Basophils/100 WBC Auto (Bld) 0.4 % Normal 0-1 [facility] Comment on above: Performed By: #### L 100.0100 ####[facility] [address] [place], [address] Eosinophils/100 leukocytes 1.4 % Normal 0-5 [facility] Comment on above: Performed By: #### L 100.0100 ####[facility] [address] [place], [address] Erythrocyte distribution width Auto Ratio (RBC) 11.7 % Normal 11.6-14.6 [facility] Comment on above: Performed By: #### L 100.0100 ####[facility] [address] [place], [address] Erythrocytes (RBC) 4.07 M/mm3 Low 4.2-5.4 [facility] Comment on above: Performed By: #### L 100.0100 ####[facility] [address] [place], [address] Hematocrit (HCT) 39.6 % Normal 37-47 [facility] Comment on above: Performed By: #### L 100.0100 ####[facility] [address] [place], [address] Hemoglobin mass conc (Bld) 13.5 g/dL Normal 12.0-15.0 [facility] Comment on above: Performed By: #### L 100.0100 ####[facility] [address] [place], [address] IM GRAN % 0.200 % Normal 0.0-0.9 [facility] Comment on above: Result Comment: IG% - Immature Granulocytes (promyelocytes, myelocytes andmetamyelocytes) > 1% indicates that a LEFT SHIFT is Present. Performed By: #### L 100.0100 ####[facility] [address] [place], [address] Lymphocytes 4.01 X10 3/ul Normal 0.83-4.51 [facility] Comment on above: Performed By: #### L 100.0100 ####[facility] [address] [place], [address] Lymphocytes/100 leukocytes 36.9 % Normal 19-41 [facility] Comment on above: Performed By: #### L 100.0100 ####[facility] [address] [place], [address] MCH 33.2 pg High 27.0-32.0 [facility] Comment on above: Performed By: #### L 100.0100 ####[facility] [address] [place], [address] MCHC mass conc (RBC) 34.1 g/gl Normal 32-36 [facility] Comment on above: Performed By: #### L 100.0100 ####[facility] [address] [place], [address] MCV 97.3 fL Normal 81-99 [facility] Comment on above: Performed By: #### L 100.0100 ####[facility] [address] [place], [address] Monocytes/100 leukocytes 6.0 % Normal 0-10 [facility] Comment on above: Performed By: #### L 100.0100 ####[facility] [address] [place], [address] Neutrophils/100 WBC Auto (Bld) 55.1 % Normal 47-70 [facility] Comment on above: Performed By: #### L 100.0100 ####[facility] [address] [place], [address] Platelet mean volume (PMV) 9.7 fL Normal 6.2-12.0 [facility] Comment on above: Performed By: #### L 100.0100 ####[facility] [address] [place], [address] Platelets 320 10*3/uL Normal 150-450 [facility] Comment on above: Performed By: #### L 100.0100 ####[facility] [address] [place], [address] RDW SD 42.0 fl Normal 35.1-43.9 [facility] Comment on above: Performed By: #### L 100.0100 ####[facility] [address] [place], [address] WBC (Leukocytes) 10.9 10*3/uL Normal 4.4-11.0 [facility] Comment on above: Performed By: #### L 100.0100 ####[facility] [address] [place], [address] Urinalysis, Completeon 07-07 MUCUS, URINE 0 SEEN Normal [facility] Comment on above: Order Comment: Order Date: 07/07/17How was Urine Obtained? ELECTRICAL ASSEMBLY SUPERVISOR TO SPECIFY Performed By: #### L 400.0001 ####[facility] [address] [place], [address] SQUAM EPI 0 SEEN Normal 5-10 [facility] Comment on above: Order Comment: Order Date: 07/07/17How was Urine Obtained? ELECTRICAL ASSEMBLY SUPERVISOR TO SPECIFY Performed By: #### L 400.0001 ####[facility] [address] [place], [address] Urine, bacteria in sediment 0 SEEN Normal None Seen [facility] Comment on above: Order Comment: Order Date: 07/07/17How was Urine Obtained? ELECTRICAL ASSEMBLY SUPERVISOR TO SPECIFY Performed By: #### L 400.0001 ####[facility] [address] [place], [address] Urine, erythrocytes 0-5 SEEN Normal 0-5 [facility] Comment on above: Order Comment: Order Date: 07/07/17How was Urine Obtained? ELECTRICAL ASSEMBLY SUPERVISOR TO SPECIFY Performed By: #### L 400.0001 ####[facility] [address] [place], [address] WBC (Leukocytes) 0 SEEN Normal 0-5 [facility] Comment on above: Order Comment: Order Date: 07/07/17How was Urine Obtained? ELECTRICAL ASSEMBLY SUPERVISOR TO SPECIFY Performed By: #### L 400.0001 ####[facility] [address] [place], [address] BILIRUBIN URINE Negative Normal Negative [facility] Comment on above: Order Comment: Order Date: 07/07/17How was Urine Obtained? ELECTRICAL ASSEMBLY SUPERVISOR TO SPECIFY Performed By: #### L 400.0001 ####[facility] [address] [place], [address] Glucose mass conc Normal Normal Normal [facility] Comment on above: Order Comment: Order Date: 07/07/17How was Urine Obtained? ELECTRICAL ASSEMBLY SUPERVISOR TO SPECIFY Performed By: #### L 400.0001 ####[facility] [address] [place], [address] KETONE UR Negative Normal Negative [facility] Comment on above: Order Comment: Order Date: 07/07/17How was Urine Obtained? ELECTRICAL ASSEMBLY SUPERVISOR TO SPECIFY Performed By: #### L 400.0001 ####[facility] [address] [place], [address] LEUK ESTERASE 25 /ul High Negative [facility] Comment on above: Order Comment: Order Date: 07/07/17How was Urine Obtained? ELECTRICAL ASSEMBLY SUPERVISOR TO SPECIFY Performed By: #### L 400.0001 ####[facility] [address] [place], [address] NITRITE UR Negative Normal Negative [facility] Comment on above: Order Comment: Order Date: 07/07/17How was Urine Obtained? ELECTRICAL ASSEMBLY SUPERVISOR TO SPECIFY Performed By: #### L 400.0001 ####[facility] [address] [place], [address] OCCULT BLOOD-UR Negative Normal Negative [facility] Comment on above: Order Comment: Order Date: 07/07/17How was Urine Obtained? ELECTRICAL ASSEMBLY SUPERVISOR TO SPECIFY Performed By: #### L 400.0001 ####[facility] [address] [place], [address] pH UR 6.0 Normal 5.0 - 8.0 [facility] Comment on above: Order Comment: Order Date: 07/07/17How was Urine Obtained? ELECTRICAL ASSEMBLY SUPERVISOR TO SPECIFY Performed By: #### L [id number] ####[facility] [address] [place], [address] PROT DIPSTX Negative Normal Negative [facility] Comment on above: Order Comment: Order Date: 07/07/17How was Urine Obtained? ELECTRICAL ASSEMBLY SUPERVISOR TO SPECIFY Performed By: #### L [id number] ####[facility] [address] [place], [address] SP.GR. DIPSTX 1.010 Normal 1.002-1.030 [facility] Comment on above: Order Comment: Order Date: 07/07/17How was Urine Obtained? ELECTRICAL ASSEMBLY SUPERVISOR TO SPECIFY Performed By: #### L [id number] ####[facility] [address] [place], [address] Urine, clarity Clear Normal Clear [facility] Comment on above: Order Comment: Order Date: 07/07/17How was Urine Obtained? ELECTRICAL ASSEMBLY SUPERVISOR TO SPECIFY Performed By: #### L [id number] ####[facility] [address] [place], [address] Urine, color Yellow Normal Yellow [facility] Comment on above: Order Comment: Order Date: 07/07/17How was Urine Obtained? ELECTRICAL ASSEMBLY SUPERVISOR TO SPECIFY Performed By: #### L [id number] ####[facility] [address] [place], [address] UROBILI Normal Normal Normal [facility] Comment on above: Order Comment: Order Date: 07/07/17How was Urine Obtained? ELECTRICAL ASSEMBLY SUPERVISOR TO SPECIFY Performed By: #### L [id number] ####[facility] [address] [place], [address] Vital Signs Date Time Vital Sign Value Performing Clinician Carmella torres 01-02-2025 11:13-0400 Diastolic blood pressure 84 mm[Hg] Prince Lorenzo MD Work Phone: [facility] 01-02-2025 11:13-0400 Heart rate 60 /min Prince Lorenzo MD Work Phone: [facility] 01-02-2025 11:13-0400 Systolic blood pressure 142 mm[Hg] Prince Lorenzo MD Work Phone: [facility] 01-02-2025 10:37-0400 Body height 160 cm Prince Lorenzo MD Work Phone: [facility] 01-02-2025 10:37-0400 Body mass index (BMI) [Ratio] 35.57 kg/m2 Prince Lorenzo MD Work Phone: [facility] 01-02-2025 10:37-0400 Body weight 91.08 kg Prince Lorenzo MD Work Phone: [facility] 11-29-2024 10:50-0400 Body height 161.9 cm Ruma Westfall MD Work Phone: [facility] 11-29-2024 10:50-0400 Body mass index (BMI) [Ratio] 36.57 kg/m2 Ruma Westfall MD Work Phone: [facility] 11-29-2024 10:50-0400 Body weight 95.89 kg Ruma Westfall MD Work Phone: [facility] 11-29-2024 10:50-0400 Diastolic blood pressure 76 mm[Hg] Ruma Westfall MD Work Phone: [facility] 11-29-2024 10:50-0400 Heart rate 79 /min Ruma Westfall MD Work Phone: [facility] 11-29-2024 10:50-0400 SaO2% (BldA) [Mass fraction] 100 % Ruma Westfall MD Work Phone: [facility] 11-29-2024 10:50-0400 Systolic blood pressure 138 mm[Hg] Ruma Westfall MD Work Phone: [facility] 10-05-2024 09:46-0500 Body height 162 cm Ruma Westfall MD Work Phone: [facility] 10-05-2024 09:46-0500 Body mass index (BMI) [Ratio] 37.47 kg/m2 Ruma Westfall MD Work Phone: [facility] 10-05-2024 09:46-0500 Body weight 98.34 kg Ruma Westfall MD Work Phone: [facility] 10-05-2024 09:46-0500 Diastolic blood pressure 76 mm[Hg] Ruma Westfall MD Work Phone: [facility] 10-05-2024 09:46-0500 Heart rate 65 /min Ruma Westfall MD Work Phone: [facility] 10-05-2024 09:46-0500 SaO2% (BldA) [Mass fraction] 97 % Ruma Westfall MD Work Phone: [facility] 10-05-2024 09:46-0500 Systolic blood pressure 138 mm[Hg] Ruma Westfall MD Work Phone: [facility] 09-25-2024 13:05-0500 Body height 160 cm Cee Christianson MD Work Phone: [facility] 09-25-2024 13:05-0500 Body mass index (BMI) [Ratio] 38.66 kg/m2 Cee Christianson MD Work Phone: [facility] 09-25-2024 13:05-0500 Body weight 99 kg Cee Christianson MD Work Phone: [facility] 09-25-2024 13:05-0500 Diastolic blood pressure 81 mm[Hg] Cee Christianson MD Work Phone: [facility] 09-25-2024 13:05-0500 Heart rate 67 /min Cee Christianson MD Work Phone: [facility] 09-25-2024 13:05-0500 Respiratory rate 16 /min Cee Christianson MD Work Phone: [facility] 09-25-2024 13:05-0500 Systolic blood pressure 136 mm[Hg] Cee Christianson MD Work Phone: [facility] 09-21-2024 16:32-0500 Body mass index (BMI) [Ratio] 35.23 kg/m2 Pradeep Blanton MD Work Phone: [facility] 09-21-2024 16:32-0500 Body temperature 99.19 [degF] Pradeep Blanton MD Work Phone: [facility] 09-21-2024 16:32-0500 Body weight 100.5 kg Pradeep Blanton MD Work Phone: [facility] 09-21-2024 16:32-0500 Diastolic blood pressure 82 mm[Hg] Pradeep Blanton MD Work Phone: [facility] 09-21-2024 16:32-0500 Heart rate 80 /min Pradeep Blanton MD Work Phone: [facility] 09-21-2024 16:32-0500 Respiratory rate 16 /min Pradeep Blanton MD Work Phone: [facility] 09-21-2024 16:32-0500 Systolic blood pressure 136 mm[Hg] Pradeep Blanton MD Work Phone: [facility] 09-11-2024 09:39-0500 Body mass index (BMI) [Ratio] 34.66 kg/m2 Krislyn Aberegg PA Work Phone: [facility] 09-11-2024 09:39-0500 Body temperature 98.2 [degF] Krislyn Aberegg PA Work Phone: [facility] 09-11-2024 09:39-0500 Body weight 98.9 kg Krislyn Aberegg PA Work Phone: [facility] 09-11-2024 09:39-0500 Diastolic blood pressure 80 mm[Hg] Krislyn Aberegg PA Work Phone: [facility] 09-11-2024 09:39-0500 Heart rate 75 /min Krislyn Aberegg PA Work Phone: [facility] 09-11-2024 09:39-0500 Respiratory rate 21 /min Krislyn Aberegg PA Work Phone: [facility] 09-11-2024 09:39-0500 SaO2% (BldA) [Mass fraction] 96 % Krislyn Aberegg PA Work Phone: [facility] 09-11-2024 09:39-0500 Systolic blood pressure 128 mm[Hg] Krislyn Aberegg PA Work Phone: [facility] 05-24-2024 11:16-0400 Diastolic blood pressure 86 mm[Hg] Matias Finelli DO Work Phone: [facility] 05-24-2024 11:16-0400 Heart rate 60 /min Matias Finelli DO Work Phone: [facility] 05-24-2024 11:16-0400 SaO2% (BldA) [Mass fraction] 98 % Matias Finelli DO Work Phone: [facility] 05-24-2024 11:16-0400 Systolic blood pressure 188 mm[Hg] Matias Finelli DO Work Phone: [facility] 05-24-2024 10:14-0400 Respiratory rate 16 /min Matias Finelli DO Work Phone: [facility] 05-24-2024 09:55-0400 Body mass index (BMI) [Ratio] 37.68 kg/m2 Matias Finelli DO Work Phone: [facility] 05-24-2024 09:55-0400 Body temperature 98.49 [degF] Matias Finelli DO Work Phone: [facility] 05-24-2024 09:55-0400 Body weight 107.5 kg Matias Finelli DO Work Phone: [facility] 02-21-2024 08:34-0400 Body height 168.9 cm Cee Christianson MD Work Phone: [facility] 02-21-2024 08:34-0400 Body mass index (BMI) [Ratio] 37.68 kg/m2 Cee Christianson MD Work Phone: [facility] 02-21-2024 08:34-0400 Body temperature 97.39 [degF] Cee Christianson MD Work Phone: [facility] 02-21-2024 08:34-0400 Body weight 107.5 kg Cee Christianson MD Work Phone: [facility] 02-21-2024 08:34-0400 Diastolic blood pressure 62 mm[Hg] Cee Christianson MD Work Phone: [facility] 02-21-2024 08:34-0400 Heart rate 67 /min Cee Christianson MD Work Phone: [facility] 02-21-2024 08:34-0400 Respiratory rate 16 /min Cee Christianson MD Work Phone: [facility] 02-21-2024 08:34-0400 SaO2% (BldA) [Mass fraction] 96 % Cee Christianson MD Work Phone: [facility] 02-21-2024 08:34-0400 Systolic blood pressure 130 mm[Hg] Cee Christianson MD Work Phone: [facility] 12-14-2023 09:10-0400 Diastolic blood pressure 72 mm[Hg] Thuy Stewart 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 Work Phone: [facility] 12-14-2023 09:10-0400 Systolic blood pressure 144 mm[Hg] Thuy Sunitha 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 Work Phone: [facility] 12-14-2023 09:08-0400 Body mass index (BMI) [Ratio] 39.27 kg/m2 Thuy Jeffersonr 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 Work Phone: [facility] 12-14-2023 09:08-0400 Body weight 112.04 kg Thuy Jeffersonr 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 Work Phone: [facility] 12-14-2023 09:08-0400 Heart rate 66 /min Thuy Jeffersonr 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 Work Phone: [facility] 12-14-2023 09:08-0400 SaO2% (BldA) [Mass fraction] 99 % Thuy Jeffersonr 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 Work Phone: [facility] 09-14-2023 13:21-0500 Body height 168.9 cm Cee Christianson MD Work Phone: [facility] 09-14-2023 13:21-0500 Body weight 106.14 kg Cee Christianson MD Work Phone: [facility] 09-14-2023 13:21-0500 Diastolic blood pressure 80 mm[Hg] Cee Christianson MD Work Phone: [facility] 09-14-2023 13:21-0500 Heart rate 64 /min Cee Christianson MD Work Phone: [facility] 09-14-2023 13:21-0500 Respiratory rate 16 /min Cee Christianson MD Work Phone: [facility] 09-14-2023 13:21-0500 Systolic blood pressure 130 mm[Hg] Cee Christianson MD Work Phone: [facility] 02-19-2023 10:08-0400 Body temperature 96.8 [degF] Cee Christianson MD Work Phone: [facility] 02-19-2023 10:08-0400 Body weight 96.62 kg Cee Christianson MD Work Phone: [facility] 02-19-2023 10:08-0400 Diastolic blood pressure 72 mm[Hg] Cee Christianson MD Work Phone: [facility] 02-19-2023 10:08-0400 Heart rate 68 /min Cee Christianson MD Work Phone: [facility] 02-19-2023 10:08-0400 Respiratory rate 18 /min Cee Christianson MD Work Phone: [facility] 02-19-2023 10:08-0400 SaO2% (BldA) [Mass fraction] 96 % Cee Christianson MD Work Phone: [facility] 02-19-2023 10:08-0400 Systolic blood pressure 138 mm[Hg] Cee Christianson MD Work Phone: [facility] 12-18-2022 10:47-0400 Diastolic blood pressure 80 mm[Hg] Thuy Sunitha 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 Work Phone: [facility] 12-18-2022 10:47-0400 Systolic blood pressure 160 mm[Hg] Thuy Sunitha 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 Work Phone: [facility] 12-18-2022 10:45-0400 Body weight 97.98 kg Thuy Sunitha 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 Work Phone: [facility] 12-18-2022 10:45-0400 Heart rate 68 /min Thuy Sunitha 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 Work Phone: [facility] 12-18-2022 10:45-0400 SaO2% (BldA) [Mass fraction] 98 % Thuy Sunitha 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 Work Phone: [facility] 06-23-2022 14:23-0500 Diastolic blood pressure 92 mm[Hg] Zakia Sneed CLERICAL AIDE TEACHER.EMT P Work Phone: [facility] 06-23-2022 14:23-0500 Heart rate 67 /min Zakia Sneed CLERICAL AIDE TEACHER.EMT P Work Phone: [facility] 06-23-2022 14:23-0500 Systolic blood pressure 157 mm[Hg] Zakia Sneed CLERICAL AIDE TEACHER.EMT P Work Phone: [facility] 06-23-2022 14:12-0500 Body weight 85.28 kg Zakia Sagastumes CLERICAL AIDE TEACHER.EMT P Work Phone: [facility] 06-23-2022 14:12-0500 Respiratory rate 16 /min Zakia Sneed CLERICAL AIDE TEACHER.EMT P Work Phone: [facility] 12-19-2021 13:55-0400 Body weight 84.37 kg Cee Christianson MD Work Phone: [facility] 12-19-2021 13:55-0400 Diastolic blood pressure 68 mm[Hg] Cee Christianson MD Work Phone: [facility] 12-19-2021 13:55-0400 Heart rate 76 /min Cee Christianson MD Work Phone: [facility] 12-19-2021 13:55-0400 Respiratory rate 16 /min Cee Christianson MD Work Phone: [facility] 12-19-2021 13:55-0400 Systolic blood pressure 140 mm[Hg] Cee Christianson MD Work Phone: [facility] Encounters Encounter Date Encounter Type Care Provider [...] imary Dx) Start: 01-25-2025 End: 01-25-2025 ambulatory Smtih Caro PT Work Phone: [facility] Comment on above: Gait instability (Pr imary Dx) Start: 01-16-2025 End: 01-16-2025 ambulatory Cee Christianson MD Work Phone: [facility] [place] Start: 01-16-2025 End: 01-16-2025 Patient encounter procedure Cee Christianson MD Work Phone: [facility] [place] Comment on above: Population Health Na vigation Outreach (Johanna Marie [place] ) Start: 01-10-2025 End: 01-10-2025 ambulatory Christin Walsh BROADCAST OPERATIONS DIRECTOR [facility] Comment on above: Gait instability (Pr imary Dx) Start: 01-09-2025 End: 01-09-2025 Telephone encounter Araseli Laogs RN [facility] Start: 01-04-2025 End: 01-04-2025 ambulatory RUMA [facility] Facility:[facility] Start: 01-02-2025 End: 01-02-2025 ambulatory PRINCE LOERNZO [facility] Start: 01-02-2025 End: 01-02-2025 Office outpatient new 45 minutes Prince Lorenzo MD Work Phone: [facility] Comment on above: Lumbar stenosis with neurogenic claudication (Primary Dx); Closed wedge compression fracture of T11 vertebra, initial encounter (HCC); Arachnoiditis Start: 12-30-2024 ambulatory CEE CHRISTIANSON Facilit y:[facility] Start: 12-30-2024 End: 12-30-2024 Subsequent hospital visit by physician [facility] (1.5t) [facility] Comment on above: 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] Start: 12-27-2024 End: 01-01-2025 Telephone encounter Cee Christianson MD Work Phone: Internal Medicine [place] Comment on above: xrays on disc Start: 12-25-2024 End: 12-29-2024 Telephone encounter Cee Christianson MD Work Phone: [facility] [place] Comment on above: Orders Start: 11-30-2024 End: 11-30-2024 ambulatory Danny Tucker PT Work Phone: [facility] Comment on above: Gait instability (Pr imary Dx) Start: 11-29-2024 End: 11-29-2024 Office consultation new/estab patient 60 min Ruma Westfall MD Work Phone: Geriatrics Comment on above: Alzheimer's disease (HCC) (Primary Dx); History of traumatic brain injury Start: 11-29-2024 End: 11-29-2024 ambulatory CEE CHRISTIANSON Facility:[facility] Start: 11-16-2024 End: 01-16-2025 Follow-up encounter Zakia Sneed APRN.EMT P Work Phone: [facility] [place] Start: 11-12-2024 End: 01-12-2025 Follow-up encounter Ruma Westfall MD Work Phone: [facility] [place] Start: 11-10-2024 End: 11-10-2024 Refill Cee Christianson MD Work Phone: [facility] [place] Comment on above: Refill Request Start: 11-07-2024 ambulatory RUMA [facility] Facility:1 [id number] Start: 11-07-2024 End: 11-07-2024 Subsequent hospital visit by physician [facility] 1 Work Phone: [facility] Comment on above: Cognitive impairment , mild, so stated [G31.84] Start: 11-01-2024 End: 11-01-2024 ambulatory Danny Tucker PT Work Phone: [facility] Comment on above: Gait instability (Pr imary Dx) Start: 10-27-2024 End: 10-30-2024 Refill Ruma Westfall MD Work Phone: Geriatrics Comment on above: Med Change Request Start: 10-16-2024 End: 10-17-2024 Refill Cee Christianson MD Work Phone: Internal [facility] [place] Comment on above: Refill Request Start: 10-09-2024 End: 10-09-2024 ambulatory CEE Gama DE LA CRUZAMPRUSTY Facility:[facility] Start: 10-09-2024 End: 10-09-2024 Subsequent hospital visit by physician Screen Mammo [facility] Comment on above: Encounter for screen ing mammogram for breast cancer [Z12.31] Start: 10-06-2024 End: 12-06-2024 Follow-up encounter Rmua Westfall MD Work Phone: Internal Medicine [place] Start: 10-05-2024 End: 10-13-2024 Telephone encounter Ruma Westfall MD Work Phone: Internal [facility] [place] Comment on above: Patient appointment- may run late Start: 10-05-2024 End: 10-05-2024 ambulatory CEE MONTENEGRORUSTY Facility:[facility] Start: 10-05-2024 End: 10-05-2024 ambulatory CEE Gama MONTENEGRORUSTY Facility:[facility] Start: 10-05-2024 End: 10-05-2024 Office consultation new/estab patient 80 min Ruma Westfall MD Work Phone: Geriatrics Comment on above: Memory deficit (Prim tuan Dx); Cognitive impairment, mild, so stated; Gait instability; Balance disorder Start: 09-25-2024 End: 11-25-2024 Follow-up encounter Pradeep Blanton MD Work Phone: Internal Medicine [place] Start: 09-25-2024 End: 09-25-2024 ambulatory CEE MONTENEGRORUSTY Facility:[facility] Start: 09-25-2024 End: 09-25-2024 Office outpatient visit [...] 09-22-2024 End: 09-22-2024 ambulatory CEE D TALAMPAS Facility:[facility] Start: 09-22-2024 End: 09-22-2024 Subsequent hospital visit by physician [facility] Work Phone: Radiology Comment on above: Urinary tract infect ion without hematuria, site unspecified [N39.0] Start: 09-21-2024 End: 09-21-2024 ambulatory CEE D TALAMPAS Facility:[facility] Start: 09-21-2024 End: 09-21-2024 Office outpatient visit [...] 09-11-2024 Subsequent hospital visit by physician Derek [facility] [place] Work Phone: Radiology Comment on above: Acute midline low ba ck pain with right-sided sciatica [M54.41] Start: 09-11-2024 End: 09-11-2024 ambulatory CEE D TALAMPAS Facility:[facility] Start: 09-11-2024 End: 09-11-2024 Patient encounter procedure Jean ADAMES Work Phone: [place] [facility] Comment on above: Urinary frequency (P rimary Dx); Acute midline low back pain with right-sided sciatica Start: 09-08-2024 End: 09-08-2024 ambulatory CEE D TALAMPAS Facility:[facility] Start: 08-11-2024 End: 08-12-2024 Refill Cee Christianson MD Work Phone: Internal Medicine [place] Comment on above: Refill Request Start: 05-24-2024 End: 05-24-2024 ambulatory CEE D TALAMPAS Facility:[facility] Start: 05-24-2024 End: 05-24-2024 Subsequent hospital visit by physician Matias Zapata DO Work Phone: Ambulatory Surgery Comment on above: Screening for colon cancer [Z12.11] Start: 05-04-2024 End: 05-15-2024 Telephone encounter Cee Christianson MD Work Phone: Internal Medicine [place] Comment on above: Patient Question Start: 04-21-2024 End: 04-21-2024 Telephone encounter Cee Christianson MD Work Phone: Internal [facility] [place] Start: 03-29-2024 Refill Cee sarah MD Work Phone: Internal Medicine [place] Comment on above: Refill Request requesting medicatio n Start: 02-21-2024 End: 02-21-2024 ambulatory CEE CHRISTIANSON Facility:[facility] Start: 02-21-2024 End: 02-21-2024 Office outpatient visit [...] Start: 02-18-2024 End: 02-18-2024 ambulatory CEE CHRISTIANSON Facility:[facility] Start: 02-16-2024 ambulatory Cee sarah MD Work Phone: Internal Medicine [facility] [place] Start: 02-01-2024 Telephone encounter Thuy brooks APRN.CNP Work Phone: Internal Medicine [place] Comment on above: requesting informati on Start: 01-18-2024 Orders Only Cee sarah MD Work Phone: Internal Medicine [place] Comment on above: Patient Question Start: 01-14-2024 Refill Cee sarah MD Work Phone: [address] [place] [address] Comment on above: Refill Request Start: 12-17-2023 End: 12-17-2023 Patient encounter procedure Edgard Dubois PA-C Work Phone: Orthopaedics Comment on above: Primary osteoarthrit is of left knee (Primary Dx); Chronic pain of left knee Start: 12-17-2023 End: 12-17-2023 Subsequent hospital visit by physician Derek [facility] [place] Work Phone: Radiology Comment on above: Left knee pain, unsp ecified chronicity [M25.562] Start: 12-15-2023 Orders Only Edgard smalls PA-C Work Phone: Orthopaedics Comment on above: Left knee pain, unsp ecified chronicity (Primary Dx) Start: 12-14-2023 End: 12-14-2023 Patient encounter procedure Thuy Stewart APRN.CNP Work Phone: Internal Medicine [place] Comment on above: Chronic pain of left knee (Primary Dx); Allergic rhinitis, unspecified seasonality, unspecified trigger; Medication management; Encounter for therapeutic drug monitoring Start: 10-04-2023 Refill Cee sarah MD Work Phone: Internal [facility] Comment on above: Refill Request Start: 09-30-2023 Refill Cee sarah MD Work Phone: Family [facility] Comment on above: Refill Request Start: 09-24-2023 Telephone encounter Cee mccarthy MD Work Phone: Internal Medicine [place] Comment on above: Refill Request Start: 09-14-2023 End: 09-14-2023 Patient encounter procedure Cee Christianson MD Work Phone: Internal Medicine [place] Comment on above: Primary hypertension (Primary Dx); [...] Cee sarah MD Work Phone: Internal Medicine [place] Comment on above: Refill Request Start: 02-25-2023 [...] Subsequent hospital visit by physician Screen Mammo [facility] Comment on above: Encounter for screen ing mammogram for breast cancer [Z12.31] Screening for osteop orosis [Z13.820] Start: 12-18-2022 End: 12-18-2022 Patient encounter procedure Thuy Stewart APRN.CNP Work Phone: Internal Medicine [place] Comment on above: Primary hypertension (Primary Dx); Tobacco use disorder; Generalized anxiety disorder; Obesity, Class II, BMI 35-39.9; Encounter for screening mammogram for breast cancer; Screening for osteoporosis; Asymptomatic menopause; Screening for depression Start: 08-31-2022 [facility] [place] Comment on above: Population Health Na vigation Outreach ([employer] care gaps) Start: 07-31-2022 Telephone encounter Thuy brooks APRN.CNP Work Phone: Internal Medicine [place] Comment on above: Patient Update (Bloo d Pressure Results) Start: 07-27-2022 Telephone encounter Zakia almodovar CLERICAL AIDE TEACHER.EMT P Work Phone: Internal Medicine [place] Comment on above: Recheck (lisinopril dose) Start: 06-23-2022 End: 06-23-2022 Patient encounter procedure Zakia Sneed CLERICAL AIDE TEACHER.EMT P Work Phone: [facility] [place] Comment on above: Asthma (Primary Dx); Need for shingles vaccine; Screening for osteoporosis; Asymptomatic menopause; Encounter for immunization Start: 02-20-2022 Refill Cee sarah MD Work Phone: Internal Medicine [place] Comment on above: Opened In Error Start: 01-01-2022 Documentation procedure Mammog umer Coordinator [facility] Start: 01-01-2022 Letter encounter Mammography Coordinator [facility] Department Start: 01-01-2022 End: 01-01-2022 Subsequent hospital visit by physician Screen Mammo [facility] Mammogram Comment on above: Encounter for screen ing mammogram for breast cancer [Z12.31] Start: 12-19-2021 End: 12-19-2021 Office outpatient visit 40 minutes Cee Christianson MD Work Phone: Internal Medicine [place] Comment on above: Essential hypertensi on (Primary [...] sarah MD Work Phone: Internal Medicine [facility] [place] Start: 07-18-2017 End: 07-19-2017 Evaluation and management of inpatient Cee Christianson Facility:[facility] Start: 07-15-2017 End: 07-15-2017 Emergency department patient visit Stefano Garcia Facility:[facility] Start: 07-08-2017 End: 07-14-2017 Evaluation and management of inpatient Cee Christianson Facility:[facility] Procedures Date Procedure Procedure Detail Performing [...] dy 1/> sites axial skel Thuy Stewart 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 Work Phone: Start: 01-04-2023 End: 01-04-2023 Mammography Thuy Stewart CLERICAL AIDE TEACHER.CN P Work Phone: Start: 06-23-2022 INFLUENZA SEASONAL QUADRIVALENT HIGH DOSE AGE 65+ Zakia Sneed CLERICAL AIDE TEACHER.EMT P Work Phone: Start: 06-23-2022 PFIZER-BIONTECH COVI D-19 BIVALENT BOOSTER VACCINE, AGE 12+ YR Zakia Sneed CLERICAL AIDE TEACHER.EMT P Work Phone: Start: 01-01-2022 End: 01-01-2022 Screening mammography bi 2-view breast inc cad Bulk Order Provider Start: 12-30-2020 Adult depression scr eening assessment Cee Christianson MD Work Phone: Start: 10-31-2020 Mammography Cee oddd MD Work Phone: Start: 02-07-2014 Colonoscopy Cee dodd MD Work Phone: Plan of Treatment Date Care Activity Detail Author Start: 05-24-2034 Screening for malignant neoplasm of colon [facility] Start: 09-08-2029 Lipid panel Lipid Screening [facility] Start: 02-17-2029 Lipid panel Lipid Screening [facility] Start: 03-29-2028 Lipid 1996 panel - Serum or Plasma Lipid Screening [facility] Start: 03-29-2028 Lipid panel Lipid Screening [facility] Start: 09-08-2027 Diabetes Screening Diabetes Screening [facility] Start: 06-20-2027 LIPID SCREEN LIPID SCREEN [facility] Start: 02-17-2027 Diabetes Screening Diabetes Screening [facility] Start: 12-18-2026 LIPID SCREEN LIPID SCREEN [facility] Start: 05-24-2026 LIPID SCREEN LIPID SCREEN [facility] Start: 03-29-2026 Diabetes Screening Diabetes Screening [facility] Start: 10-09-2025 Screening for malignant neoplasm of breast Mammogram Screening [facility] Start: 09-25-2025 Annual PCP Team Chronic Disease Visit Annual PCP Team Chronic Disease Visit [facility] Start: 09-25-2025 Depression Screening Depression Screening [facility] Start: 09-25-2025 Spirometry Spirometry [facility] Comment on above: Postponed from 1972 (Declined at t his time) Start: 09-21-2025 Annual PCP Team Chronic Disease Visit Annual PCP Team Chronic Disease Visit [facility] Start: 08-27-2025 End: 08-27-2025 Patient encounter procedure 08/27/2025 11:00 AM EST Office Visit [facility] [place] [address] [place] [address] Cee Christianson MD [address] [place] [address] 6 month f/u [facility] [place] Comment on above: 6 month f/u Start: 06-20-2025 DIABETES SCREEN DIABETES SCREEN [facility] Start: 05-30-2025 End: 05-30-2025 Patient encounter procedure 05/30/2025 3:00 PM EDT Office Visit Geriatrics [address] [place] [address] Ruma Westfall MD [address] [place] [address] 6 mo follow up - [facility] Comment on above: 6 mo follow up - mikayla Start: 04-10-2025 End: 04-10-2025 Patient encounter procedure 04/10/2025 11:00 AM EDT Office Visit [facility] [address] [place] [phone] Prince Lorenzo MD [address] [place] [address] [phone] [facility] Start: 04-04-2025 End: 01-02-2026 XR Lumbar spine Views W flexion and W extension XR lumbar spine 4-5 view Imaging Routine Lumbar stenosis with neurogenic claudication Closed wedge compression fracture of T11 vertebra, initial encounter (HCC) Arachnoiditis Expected: 04/04/2025, Expires: 01/02/2026 [facility] Work Phone: Comment on above: Expected: 04/04/2025, Expires: Start: 04-04-2025 End: 01-02-2026 XR Thoracic spine 4 Views XR THORACIC SPINE COMPLETE 4+ VIEWS Imaging Routine Lumbar stenosis with neurogenic claudication Closed wedge compression fracture of T11 vertebra, initial encounter (HCC) Arachnoiditis Expected: 04/04/2025, Expires: 01/02/2026 [facility] Comment on above: Expected: 04/04/2025, Expires: Start: 03-25-2025 Covid-19 Vaccine ( season) Covid-19 Vaccine () [facility] Start: 02-21-2025 End: 02-21-2025 Patient encounter procedure 02/21/2025 9:20 AM EDT Office Visit [facility] [place] [address] [place] [address] Cee Christianson MD [address] [place] [address] 6 month follow up [facility] [place] Comment on above: 6 month follow up Start: 02-20-2025 Annual PCP Team Chronic Disease Visit Annual PCP Team Chronic Disease Visit [facility] Start: 02-12-2025 End: 02-12-2025 ambulatory 02/12/2025 10:45 AM EDT OT/PT/Speech Visit [facility] [address] [place] [address] Smith Caro, PT [address] [facility] [place] [id number] R26.81 (ICD-10-CM) - Gait instability [facility] Comment on above: R26.81 (ICD-10-CM) - Gait instability Start: 02-08-2025 End: 02-08-2025 ambulatory 02/08/2025 10:45 AM EDT OT/PT/Speech Visit [facility] [address] [place] [address] Smith Caro, PT [address] [place] [address] R26.81 (ICD-10-CM) - Gait instability [facility] Comment on above: R26.81 (ICD-10-CM) - Gait instability Start: 02-05-2025 End: 02-05-2025 ambulatory 02/05/2025 9:15 AM EDT OT/PT/Speech Visit [facility] [address] [place] [address] Smith Caro, PT [address] [place], [place] [id number] R26.81 (ICD-10-CM) - Gait instability [facility] Comment on above: R26.81 (ICD-10-CM) - Gait instability Start: 02-01-2025 End: 02-01-2025 ambulatory [facility] Comment on above: R26.81 (ICD-10-CM) - Gait instability Start: 01-29-2025 End: 01-29-2025 ambulatory 01/29/2025 11:45 AM EDT OT/PT/Speech Visit [facility] [address] [place] [address] Christin Walsh, BROADCAST OPERATIONS DIRECTOR [address] [place] [address] R26.81 (ICD-10-CM) - Gait instability [facility] Comment on above: R26.81 (ICD-10-CM) - Gait instability Start: 01-28-2025 End: 04-29-2025 25-hydroxyvitamin D3 [Mass/volume] in Serum or Plasma VITAMIN D 25 HYDROXY Lab Routine Vitamin D deficiency Encounter for long-term current use of medication Expected: 01/28/2025, Expires: 04/29/2025 [facility] Comment on above: Expected: 01/28/2025, Expires: Start: 01-28-2025 End: 04-29-2025 CBC panel - Blood by Automated count COMPLETE BLOOD COUNT Lab Routine Primary hypertension Encounter for long-term current use of medication Expected: 01/28/2025, Expires: 04/29/2025 [facility] Comment on above: Expected: 01/28/2025, Expires: Start: 01-28-2025 End: 04-29-2025 Comprehensive metabolic 2000 panel - Serum or Plasma COMPREHENSIVE METABOLIC PANEL Lab Routine Primary hypertension Encounter for long-term current use of medication Expected: 01/28/2025, Expires: 04/29/2025 [facility] Work Phone: Comment on above: Expected: 01/28/2025, Expires: Start: 01-28-2025 End: 04-29-2025 Ferritin [Mass/volume] in Serum or Plasma FERRITIN Lab Routine Elevated ferritin Encounter for long-term current use of medication Expected: 01/28/2025, Expires: 04/29/2025 [facility] Comment on above: Expected: 01/28/2025, Expires: Start: 01-28-2025 End: 04-29-2025 Magnesium [Mass/volume] in Serum or Plasma MAGNESIUM Lab Routine Encounter for long-term current use of medication Expected: 01/28/2025, Expires: 04/29/2025 [facility] Comment on above: Expected: 01/28/2025, Expires: Start: 01-23-2025 End: 01-23-2025 ambulatory 01/23/2025 7:45 AM EDT OT/PT/Speech Visit [place] Physical Therapy [address] [place] [address] Smith Caro, PT [address] [place], [place] [address] R26.81 (ICD-10-CM) - Gait instability / OK per [facility] staff msg [facility] Comment on above: R26.81 (ICD-10-CM) - Gait instability / OK per [facility] staff [facility] [place] Start: 01-01-2025 End: 01-01-2025 ambulatory 01/01/2025 10:00 AM EDT OT/PT/Speech Visit [facility] [address] [place], [place] [id number] Smith Caro, PT [address] [place] [address] R26.81 (ICD-10-CM) - Gait instability [facility] Comment on above: R26.81 (ICD-10-CM) - Gait instability Start: 12-30-2024 Subsequent hospital visit by physician 12/30/2024 8:00 AM EDT Hospital Encounter [facility] [address] [place] [id number] 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] [facility] Comment on above: Degeneration of intervertebral disc of l umbar region with discogenic back pain [M51.360] Start: 12-18-2024 DTaP/Tdap/Td Vaccines (2 - Td or Tdap) DTaP/Tdap/Td Vaccines (2 - Td or Tdap) [facility] Start: 12-18-2024 Urine microalbumin profile [facility] Start: 12-13-2024 Annual PCP Team Chronic Disease Visit Annual PCP Team Chronic Disease Visit [facility] Start: 11-30-2024 End: 11-30-2024 ambulatory 11/30/2024 3:00 PM EDT OT/PT/Speech Visit [facility] [address] [place] [id number] Danny Tucker, PT [address] [place], [place] [phone] LOW BACK PAIN [facility] Comment on above: LOW BACK PAIN Start: 11-29-2024 End: 11-29-2024 Patient encounter procedure 11/29/2024 11:00 AM EDT Office Visit Geriatrics [address] [place] [address] Ruma Westfall MD [address] [facility] [place] [address] MRI FOLLOW UP [facility] Comment on above: MRI FOLLOW UP [facility] Start: 11-07-2024 End: 11-07-2024 Patient encounter procedure 11/07/2024 12:30 PM EDT Appointment [facility] [address] [place] [address] [facility] Comment on above: [phone] Start: 11-01-2024 End: 11-01-2024 ambulatory 11/01/2024 8:30 AM EDT OT/PT/Speech Visit [facility] [address] [place] [address] Danny Tucker, PT [address] [place] [address] Gait instability [R26.81] [facility] Comment on above: Gait instability [R26.81] Start: 10-19-2024 End: 10-19-2024 ambulatory 10/19/2024 10:15 AM EST OT/PT/Speech Visit [facility] [address] [place] [address] Angella Sahu, PT : Gait instability [R26.81] [facility] Comment on above: : Gait instability [R26.81] Start: 10-09-2024 End: 10-09-2024 Patient encounter procedure 10/09/2024 11:10 AM EST Appointment Mammogram [address] [place] [address] : Encounter for screening mammogram for breast cancer [Z12.31] Mammogram Comment on above: : Encounter for screening mammogram for breast cancer [Z12.31] Start: 09-25-2024 End: 09-25-2024 Patient encounter procedure 09/25/2024 1:00 PM EST Office Visit Internal Medicine [place] [address] [place] [address] Cee Christianson MD [address] [place] [address] yearly physical [facility] [place] Comment on above: yearly physical Start: 09-22-2024 End: 09-22-2024 Patient encounter procedure 09/22/2024 1:45 PM EST Appointment Radiology [address] [place] [address] Urinary tract infection without hematuria, site unspecified [N39.0]; Acute left-sided low back pain without sciatica [M54.50] Radiology Comment on above: Urinary tract infection without hematuri a, site unspecified [N39.0]; Acute left-sided low back pain without sciatica [M54.50] Start: 09-14-2024 Annual PCP Team Chronic Disease Visit Annual PCP Team Chronic Disease Visit [facility] Start: 08-16-2024 Advance Directive Discussion Advance Directive Discussion [facility] Start: 08-16-2024 Medicare Advantage Annual Wellness Visit Medicare Advantage Annual Wellness Visit [facility] Start: 07-23-2024 End: 10-22-2024 25-hydroxyvitamin D3 [Mass/volume] in Serum or Plasma VITAMIN D 25 HYDROXY Lab Routine Encounter for long-term current use of medication Osteopenia of both hips Expected: 07/23/2024 (Approximate), Expires: 10/22/2024 [facility] Comment on above: Expected: 07/23/2024 (Approximate), Expi res: 10/22/2024 Start: 07-23-2024 End: 10-22-2024 CBC panel - Blood by Automated count COMPLETE BLOOD COUNT Lab Routine Primary hypertension Encounter for long-term current use of medication Expected: 07/23/2024 (Approximate), Expires: 10/22/2024 [facility] Comment on above: Expected: 07/23/2024 (Approximate), Expi res: 10/22/2024 Start: 07-23-2024 End: 10-22-2024 Cobalamin (Vitamin B12) [Mass/volume] in Serum or Plasma VITAMIN B12 Lab Routine Encounter for long-term current use of medication Expected: 07/23/2024 (Approximate), Expires: 10/22/2024 [facility] Comment on above: Expected: 07/23/2024 (Approximate), Expi res: 10/22/2024 Start: 07-23-2024 End: 10-22-2024 Comprehensive metabolic 2000 panel - Serum or Plasma COMPREHENSIVE METABOLIC PANEL Lab Routine Primary hypertension Encounter for long-term current use of medication Expected: 07/23/2024 (Approximate), Expires: 10/22/2024 [facility] Work Phone: Comment on above: Expected: 07/23/2024 (Approximate), Expi res: 10/22/2024 Start: 07-23-2024 End: 10-22-2024 Ferritin [Mass/volume] in Serum or Plasma FERRITIN Lab Routine Elevated ferritin Encounter for long-term current use of medication Expected: 07/23/2024 (Approximate), Expires: 10/22/2024 [facility] Comment on above: Expected: 07/23/2024 (Approximate), Expi res: 10/22/2024 Start: 07-23-2024 End: 10-22-2024 Lipid 1996 panel - Serum or Plasma LIPID PANEL BASIC Lab Routine Encounter for long-term current use of medication Expected: 07/23/2024 (Approximate), Expires: 10/22/2024 [facility] Comment on above: Expected: 07/23/2024 (Approximate), Expi res: 10/22/2024 Start: 07-23-2024 End: 10-22-2024 Magnesium [Mass/volume] in Serum or Plasma MAGNESIUM Lab Routine Encounter for long-term current use of medication Expected: 07/23/2024 (Approximate), Expires: 10/22/2024 [facility] Comment on above: Expected: 07/23/2024 (Approximate), Expi res: 10/22/2024 Start: 06-17-2024 Covid-19 Vaccine ( season) Covid-19 Vaccine ( season) [facility] Start: 05-27-2024 Shingrix Vaccine (2 of 2) Shingrix Vaccine (2 of 2) [facility] Start: 05-27-2024 Zoster Vaccines (2 of 2) Zoster Vaccines (2 of 2) [facility] Start: 05-24-2024 DIABETES SCREEN DIABETES SCREEN [facility] Start: 05-24-2024 End: 05-24-2024 Patient encounter procedure Ambulatory Surgery Comment on above: Screening for colon cancer [Z12.11] Start: 05-23-2024 End: 05-23-2024 Patient encounter procedure 05/23/2024 7:45 AM EDT Appointment Ambulatory Surgery [address] [place] [address] Screening for colon cancer [Z12.11] Ambulatory Surgery Comment on above: Screening for colon cancer [Z12.11] Start: 04-16-2024 Covid-19 Vaccine ( season) Covid-19 Vaccine () [facility] Start: 04-16-2024 Influenza vaccination Influenza Vaccine (#1) [facility] Start: 04-11-2024 Covid-19 Vaccine () Covid-19 Vaccine () [facility] Start: 03-14-2024 End: 06-13-2024 25-hydroxyvitamin D3 [Mass/volume] in Serum or Plasma VITAMIN D 25 HYDROXY Lab Routine Osteopenia, unspecified location Expected: 03/14/2024 (Approximate), Expires: 06/13/2024 [facility] Work Phone: Comment on above: Expected: 03/14/2024 (Approximate), Expi res: 06/13/2024 Start: 03-14-2024 End: 06-13-2024 CBC panel - Blood by Automated count CBC Lab Routine Primary hypertension Encounter for long-term current use of medication Expected: 03/14/2024 (Approximate), Expires: 06/13/2024 [facility] Work Phone: Comment on above: Expected: 03/14/2024 (Approximate), Expi res: 06/13/2024 Start: 03-14-2024 End: 06-13-2024 Comprehensive metabolic 2000 panel - Serum or Plasma COMP METABOLIC PANEL Lab Routine Primary hypertension Encounter for long-term current use of medication Expected: 03/14/2024 (Approximate), Expires: 06/13/2024 [facility] Work Phone: Comment on above: Expected: 03/14/2024 (Approximate), Expi res: 06/13/2024 Start: 03-14-2024 End: 06-13-2024 Ferritin [Mass/volume] in Serum or Plasma FERRITIN BLD Lab Routine Elevated ferritin Expected: 03/14/2024 (Approximate), Expires: 06/13/2024 [facility] Work Phone: Comment on above: Expected: 03/14/2024 (Approximate), Expi res: 06/13/2024 Start: 03-14-2024 End: 06-13-2024 Lipid 1996 panel - Serum or Plasma LIPID PANEL BASIC Lab Routine Hypercholesteremia Expected: 03/14/2024 (Approximate), Expires: 06/13/2024 [facility] Work Phone: Comment on above: Expected: 03/14/2024 (Approximate), Expi res: 06/13/2024 Start: 02-21-2024 End: 02-21-2024 Patient encounter procedure 02/21/2024 8:40 AM EDT Office Visit [facility] [place] [address] [place], [place] [address] Cee Christianson MD [address] [place] [address] 6 month follow up [facility] [place] Comment on above: 6 month follow up Start: 02-20-2024 ANNUAL PCP TEAM CHRONIC DISEASE VISIT ANNUAL PCP TEAM CHRONIC DISEASE VISIT [facility] Start: 02-08-2024 Colonoscopy COLONOSCOPY [facility] Start: 02-08-2024 COLORECTAL CANCER SCREENING COLORECTAL CANCER SCREENING [facility] Start: 02-08-2024 Screening for malignant neoplasm of colon [facility] Start: 01-18-2024 End: 04-18-2024 Lipid 1996 panel - Serum or Plasma LIPID PANEL BASIC Lab Routine Hypercholesteremia Expected: 01/18/2024, Expires: 04/18/2024 [facility] Work Phone: Comment on above: Expected: 01/18/2024, Expires: Start: 01-13-2024 Covid-19 Vaccine () Covid-19 Vaccine () [facility] Start: 01-11-2024 End: 04-11-2024 25-hydroxyvitamin D3 [Mass/volume] in Serum or Plasma VITAMIN D 25 HYDROXY Lab Routine Encounter for therapeutic drug monitoring Expected: 01/11/2024, Expires: 04/11/2024 [facility] Comment on above: Expected: 01/11/2024, Expires: Start: 01-11-2024 End: 04-11-2024 CBC W Auto Differential panel - Blood COMPLETE BLOOD COUNT AND DIFFERENTIAL Lab Routine Encounter for therapeutic drug monitoring Expected: 01/11/2024, Expires: 04/11/2024 [facility] Work Phone: Comment on above: Expected: 01/11/2024, Expires: Start: 01-11-2024 End: 04-11-2024 Cobalamin (Vitamin B12) [Mass/volume] in Serum or Plasma VITAMIN B12 Lab Routine Encounter for therapeutic drug monitoring Expected: 01/11/2024, Expires: 04/11/2024 [facility] Comment on above: Expected: 01/11/2024, Expires: Start: 01-11-2024 End: 04-11-2024 Comprehensive metabolic 2000 panel - Serum or Plasma COMPREHENSIVE METABOLIC PANEL Lab Routine Encounter for therapeutic drug monitoring Expected: 01/11/2024, Expires: 04/11/2024 [facility] Comment on above: Expected: 01/11/2024, Expires: Start: 01-11-2024 End: 04-11-2024 Ferritin [Mass/volume] in Serum or Plasma FERRITIN Lab Routine Encounter for therapeutic drug monitoring Expected: 01/11/2024, Expires: 04/11/2024 [facility] Comment on above: Expected: 01/11/2024, Expires: Start: 01-11-2024 End: 04-11-2024 Iron and Iron binding capacity panel - Serum or Plasma IRON AND TIBC Lab Routine Encounter for therapeutic drug monitoring Expected: 01/11/2024, Expires: 04/11/2024 [facility] Comment on above: Expected: 01/11/2024, Expires: Start: 01-11-2024 End: 04-11-2024 Magnesium [Mass/volume] in Serum or Plasma MAGNESIUM Lab Routine Encounter for therapeutic drug monitoring Expected: 01/11/2024, Expires: 04/11/2024 [facility] Comment on above: Expected: 01/11/2024, Expires: Start: 01-05-2024 Mammography [facility] Start: 01-05-2024 Screening for malignant neoplasm of breast Mammogram Screening [facility] Start: 12-19-2023 ANNUAL PCP TEAM CHRONIC DISEASE VISIT ANNUAL PCP TEAM CHRONIC DISEASE VISIT [facility] Start: 12-17-2023 End: 12-17-2023 Patient encounter procedure 12/17/2023 11:00 AM EDT Office Visit Orthopaedics [address] [place] [address] Edgard Dubois PA-C [address] [address] Chronic pain of left knee [M25.562, G89.29] Orthopaedics Comment on above: Chronic pain of left knee [M25.562, G89. 29] Start: 08-16-2023 Advance Directive Discussion Advance Directive Discussion [facility] Start: 08-16-2023 Behavioral Health Screening Behavioral Health Screening [facility] Start: 08-16-2023 Depression Assessment Depression Assessment [facility] Start: 07-29-2023 ANNUAL PCP TEAM CHRONIC DISEASE VISIT ANNUAL PCP TEAM CHRONIC DISEASE VISIT [facility] Start: 04-16-2023 Covid-19 Vaccine () Covid-19 Vaccine () [facility] Start: 04-16-2023 Influenza vaccination INFLUENZA (#1) [facility] Start: 03-22-2023 End: 05-22-2023 25-hydroxyvitamin D3 [Mass/volume] in Serum or Plasma VITAMIN D 25 HYDROXY Lab Routine Osteopenia of both hips Encounter for long-term current use of medication Expected: 03/22/2023 (Approximate), Expires: 05/22/2023 [facility] Work Phone: Comment on above: Expected: 03/22/2023 (Approximate), Expi res: 05/22/2023 Start: 03-22-2023 End: 05-22-2023 CBC panel - Blood by Automated count CBC Lab Routine Primary hypertension Encounter for long-term current use of medication Expected: 03/22/2023 (Approximate), Expires: 05/22/2023 [facility] Work Phone: Comment on above: Expected: 03/22/2023 (Approximate), Expi res: 05/22/2023 Start: 03-22-2023 End: 05-22-2023 Cobalamin (Vitamin B12) [Mass/volume] in Serum or Plasma VITAMIN B12 BLOOD Lab Routine Macrocytic anemia Encounter for long-term current use of medication Expected: 03/22/2023 (Approximate), Expires: 05/22/2023 [facility] Work Phone: Comment on above: Expected: 03/22/2023 (Approximate), Expi res: 05/22/2023 Start: 03-22-2023 End: 05-22-2023 Comprehensive metabolic 2000 panel - Serum or Plasma COMP METABOLIC PANEL Lab Routine Primary hypertension Encounter for long-term current use of medication Expected: 03/22/2023 (Approximate), Expires: 05/22/2023 [facility] Work Phone: Comment on above: Expected: 03/22/2023 (Approximate), Expi res: 05/22/2023 Start: 03-22-2023 End: 05-22-2023 Ferritin [Mass/volume] in Serum or Plasma FERRITIN BLD Lab Routine Macrocytic anemia Encounter for long-term current use of medication Expected: 03/22/2023 (Approximate), Expires: 05/22/2023 [facility] Work Phone: Comment on above: Expected: 03/22/2023 (Approximate), Expi res: 05/22/2023 Start: 03-22-2023 End: 05-22-2023 Folate [Mass/volume] in Serum or Plasma FOLATE SERUM Lab Routine Macrocytic anemia Encounter for long-term current use of medication Expected: 03/22/2023 (Approximate), Expires: 05/22/2023 [facility] Work Phone: Comment on above: Expected: 03/22/2023 (Approximate), Expi res: 05/22/2023 Start: 03-22-2023 End: 05-22-2023 Iron and Iron binding capacity panel - Serum or Plasma IRON + TIBC Lab Routine Macrocytic anemia Encounter for long-term current use of medication Expected: 03/22/2023 (Approximate), Expires: 05/22/2023 [facility] Work Phone: Comment on above: Expected: 03/22/2023 (Approximate), Expi res: 05/22/2023 Start: 03-22-2023 End: 05-22-2023 Lipid 1996 panel - Serum or Plasma LIPID PANEL BASIC Lab Routine Hypercholesteremia Encounter for long-term current use of medication Expected: 03/22/2023 (Approximate), Expires: 05/22/2023 [facility] Work Phone: Comment on above: Expected: 03/22/2023 (Approximate), Expi res: 05/22/2023 Start: 01-01-2023 Mammography MAMMOGRAM [facility] Start: 12-19-2022 ANNUAL PCP TEAM CHRONIC DISEASE VISIT ANNUAL PCP TEAM CHRONIC DISEASE VISIT [facility] Start: 10-21-2022 COVID-19 VACCINE (5 - Moderna series) COVID-19 VACCINE (5 - Moderna series) [facility] Start: 08-17-2022 BONE DENSITY BONE DENSITY [facility] Comment on above: Postponed from 2019 (Postponed To Appropriate Date) Start: 08-16-2022 ADVANCE DIRECTIVE DISCUSSION ADVANCE DIRECTIVE DISCUSSION [facility] Start: 08-16-2022 DEPRESSION ASSESSMENT DEPRESSION ASSESSMENT [facility] Start: 06-21-2022 End: 08-21-2022 CBC panel - Blood by Automated count CBC Lab Routine Essential hypertension Encounter for long-term current use of medication Expected: 06/21/2022 (Approximate), Expires: 08/21/2022 [facility] Work Phone: Comment on above: Expected: 06/21/2022 (Approximate), Expi res: 08/21/2022 Start: 06-21-2022 End: 08-21-2022 Comprehensive metabolic 2000 panel - Serum or Plasma COMP METABOLIC PANEL Lab Routine Essential hypertension Encounter for long-term current use of medication Expected: 06/21/2022 (Approximate), Expires: 08/21/2022 [facility] Work Phone: Comment on above: Expected: 06/21/2022 (Approximate), Expi res: 08/21/2022 Start: 06-21-2022 End: 08-21-2022 Lipid 1996 panel - Serum or Plasma LIPID PANEL BASIC Lab Routine Essential hypertension Hypercholesteremia Expected: 06/21/2022 (Approximate), Expires: 08/21/2022 [facility] Work Phone: Comment on above: Expected: 06/21/2022 (Approximate), Expi res: 08/21/2022 Start: 05-26-2022 ANNUAL PCP TEAM CHRONIC DISEASE VISIT ANNUAL PCP TEAM CHRONIC DISEASE VISIT [facility] Start: 04-16-2022 Influenza vaccination INFLUENZA (#1) [facility] Start: 12-30-2021 Adult depression screening assessment DEPRESSION SCREENING [facility] Start: 12-30-2021 PNEUMOVAX AGE 65 AND OVER WITH 5YR LOOKBACK (#1) PNEUMOVAX AGE 65 AND OVER WITH 5YR LOOKBACK (#1) [facility] Comment on above: Postponed from 2019 (Declined at t his time) Start: 12-30-2021 SHINGRIX VACCINE (1 of 2) SHINGRIX VACCINE (1 of 2) [facility] Comment on above: Postponed from 2004 (Declined at t his time) Start: 11-22-2021 COVID-19 VACCINE (4 - Booster for Moderna series) COVID-19 VACCINE (4 - Booster for Moderna series) [facility] Start: 10-31-2021 Mammography MAMMOGRAM [facility] Start: 08-16-2021 ADVANCE DIRECTIVE DISCUSSION ADVANCE DIRECTIVE DISCUSSION [facility] Start: 04-30-2021 COVID-19 VACCINE (3 - Booster for Moderna series) COVID-19 VACCINE (3 - Booster for Moderna series) [facility] Start: 04-26-2020 PNEUMOCOCCAL: 65+ (2 - PPSV23 if available, else PCV20) PNEUMOCOCCAL: 65+ (2 - PPSV23 if available, else PCV20) [facility] Start: 04-26-2020 PNEUMOCOCCAL: 65+ (2 - PPSV23 or PCV20) PNEUMOCOCCAL: 65+ (2 - PPSV23 or PCV20) [facility] Start: 2019 BONE DENSITY BONE DENSITY [facility] Start: 2019 PNEUMOVAX AGE 65 AND OVER WITH 5YR LOOKBACK (#1) PNEUMOVAX AGE 65 AND OVER WITH 5YR LOOKBACK (#1) [facility] Start: 2014 RSV Vaccine (1 - 1-dose 60+ series) RSV Vaccine (1 - 1-dose 60+ series) [facility] Start: 2004 SHINGRIX VACCINE (1 of 2) SHINGRIX VACCINE (1 of 2) [facility] Start: 1999 COLOGUARD (FIT-DNA) COLOGUARD (FIT-DNA) [facility] Start: [address] COLONOGRAPHY [facility] Start: 1999 FECAL OCCULT BLOOD FECAL OCCULT BLOOD [facility] Start: 1999 Screening for malignant neoplasm of colon [facility] Start: 1999 SIGMOIDOSCOPY SIGMOIDOSCOPY [facility] Start: 1994 Screening for malignant neoplasm of breast Mammogram [facility] Start: 1972 BP CONTROLLED (<130/80) BP CONTROLLED (<130/80) [facility] Start: 1972 Depression Screening Depression Screening [facility] Start: 1972 Diabetes mellitus screening Diabetes Screening [facility] Start: 1972 Hepatitis C screening Hepatitis C Screening [facility] Start: 1972 SPIROMETRY SPIROMETRY [facility] Start: 1966 Depression Screening Depression Screening [facility] Start: 1954 Lipid panel Lipid Panel [facility] Start: 1954 Screening for malignant neoplasm of colon [facility] Bacteria identified in Urine by Culture BACTERIAL CULTURE, URINE Microbiology Routine Urinary frequency Ordered: 09/11/2024 [facility] Work Phone: Comment on above: Ordered: 09/11/2024 End: 03-17-2025 DBT Breast - bilateral screening NAVI SCREENING W KEVIN Radiology Routine Encounter for screening mammogram for breast cancer 1 Occurrences starting 02/16/2024 until 03/17/2025 [facility] Work Phone: Comment on above: 1 Occurrences starting 02/16/2024 until 03/17/2025 End: 01-17-2024 DXA-AXIAL SKELETON DXA-AXIAL SKELETON Radiology Routine Screening for osteoporosis Asymptomatic menopause 1 Occurrences starting 12/18/2022 until 01/17/2024 [facility] Work Phone: Comment on above: 1 Occurrences starting 12/18/2022 until 01/17/2024 End: 01-17-2024 NAVI SCREENING NAVI SCREENING Radiology Routine Encounter for screening mammogram for breast cancer 1 Occurrences starting 12/18/2022 until 01/17/2024 [facility] Work Phone: Comment on above: 1 Occurrences starting 12/18/2022 until 01/17/2024 End: 11-04-2025 MR Brain WO contrast MRI BRAIN W QUANT WO IVCON Radiology Routine Cognitive impairment, mild, so stated 1 Occurrences starting 10/05/2024 until 11/04/2025 [facility] Work Phone: Comment on above: 1 Occurrences starting 10/05/2024 until 11/04/2025 End: 01-26-2026 MR Lumbar spine WO contrast MRI LUMBAR SPINE WO IVCON Radiology STAT Degeneration of intervertebral disc of lumbar region with discogenic back pain S/P lumbar spine operation Chronic midline low back pain without sciatica Acute midline low back pain without sciatica 1 Occurrences starting 12/27/2024 until 01/26/2026 [facility] Work Phone: Comment on above: 1 Occurrences starting 12/27/2024 until 01/26/2026 End: 11-04-2025 MR Unspecified body region 3D post processing MRI 3D BRAIN QUANT Radiology Routine Cognitive impairment, mild, so stated 1 Occurrences starting 10/05/2024 until 11/04/2025 [facility] Comment on above: 1 Occurrences starting 10/05/2024 until 11/04/2025 Pneumococcal vaccination PNEUMOCOCCAL VACCINE (PREVNAR 20) Immunization/Injection Routine Encounter for immunization 1 Occurrences starting 06/23/2022 [facility] Work Phone: Comment on above: 1 Occurrences starting 06/23/2022 End: 02-20-2025 Screening colonoscopy COLONOSCOPY SCREENING Endoscopy Routine Screening for colon cancer 1 Occurrences starting 02/21/2024 until 02/20/2025 [facility] Comment on above: 1 Occurrences starting 02/21/2024 until 02/20/2025 End: 01-02-2023 Screening mammography bi 2-view breast inc cad NAVI SCREENING Radiology Routine Encounter for screening mammogram for breast cancer 1 Occurrences starting 12/03/2021 until 01/02/2023 [facility] Work Phone: Comment on above: 1 Occurrences starting 12/03/2021 until 01/02/2023 End: 07-23-2023 SPIROMETRY - BASELINE AND POST DILATOR SPIROMETRY - BASELINE AND POST DILATOR PFT Routine Asthma 1 Occurrences starting 06/23/2022 until 07/23/2023 [facility] Work Phone: Comment on above: 1 Occurrences starting 06/23/2022 until 07/23/2023 End: 10-21-2025 US Kidney - bilateral and Urinary bladder US KIDNEY/BLADDER Radiology Routine Urinary tract infection without hematuria, site unspecified Right-sided low back pain without sciatica, unspecified chronicity 1 Occurrences starting 09/21/2024 until 10/21/2025 [facility] Work Phone: Comment on above: 1 Occurrences starting 09/21/2024 until 10/21/2025 US Kidney - bilatera l and Urinary bladder US KIDNEY/BLADDER Radiology Routine Urinary tract infection without hematuria, site unspecified Right-sided low back pain without sciatica, unspecified chronicity 09/22/2024 2:11 PM EST [facility] Work Phone: End: 01-13-2025 XR Knee - left 4 Views XR KNEE GENERAL 4V AP BOTH/PA BOTH/LAT/MERC LEFT Radiology Routine Left knee pain, unspecified chronicity 1 Occurrences starting 12/15/2023 until 01/13/2025 [facility] Work Phone: Comment on above: 1 Occurrences starting 12/15/2023 until 01/13/2025 XR Knee - left 4 Views XR KNEE G ENERAL 4V AP BOTH/PA BOTH/LAT/MERC LEFT Radiology Routine Left knee pain, unspecified chronicity 12/17/2023 11:12 AM EDT [facility] Work Phone: [facility] Immunizations Immunization Date Immunization Notes Care Provider Fa henry 09-25-2024 COVID-19 vaccine, ag e 12+ yr (PFIZER-BIONTECH COMIRNATY) Ruma Westfall MD Work Phone: [facility] 02-15-2024 COVID-19 vaccine, ag e 12+ yr, season (PFIZER-BIONTECH) Cee Christianson MD Work Phone: [facility] 02-15-2024 COVID-19 vaccine, ag e 12+ yr, bivalent (PFIZER-BIONTECH) Cee Christianson MD Work Phone: [facility] 02-15-2024 respiratory syncytia l virus (RSV) vaccine, adjuvanted (AREXVY) Cee Christianson MD Work Phone: [facility] 09-14-2023 COVID-19 vaccine, ag e 12+ yr, season (PFIZER-BIONTECH) Cee Christianson MD Work Phone: [facility] 04-13-2023 influenza (aIIV4) vaccine, age 65+ yr, quadrivalent, PF (FLUAD QUAD) Cee Christianson MD Work Phone: [facility] 04-13-2023 influenza, injectabl e, quadrivalent, contains preservative Cee Christianson MD Work Phone: [facility] Work Phone: 04-13-2023 influenza virus vaccine, unspecified formulation Cee Christianson MD Work Phone: [facility] 07-23-2022 pneumococcal (PCV20) vaccine, 20 valent (PREVNAR 20) Zakia Sneed APRN.CNS Work Phone: [facility] Work Phone: 06-23-2022 COVID-19 booster vaccine, age 12+ yr, bivalent (PFIZER-BIONTzerved) Zakia Sneed APRN.EMT P Work Phone: [facility] Work Phone: 06-23-2022 influenza, high-dose , quadrivalent vaccine (FLUZONE HIGH DOSE QUADRIVALENT) Zakia Sneed APRN.EMT P Work Phone: [facility] Work Phone: 07-24-2021 COVID-19 original vaccine, full dose, monovalent (MODERNA) Thuy Stewart 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 Work Phone: [facility] Work Phone: 05-01-2021 influenza, high-dose , quadrivalent vaccine (FLUZONE HIGH DOSE QUADRIVALENT) Zakia Sneed CLERICAL AIDE TEACHER.EMT P Work Phone: [facility] Work Phone: 11-28-2020 COVID-19 vaccine, fu ll dose (MODERNA) Cee Christianson MD Work Phone: [facility] 10-31-2020 COVID-19 vaccine, fu ll dose (MODERNA) Cee Christianson MD Work Phone: [facility] 05-18-2020 influenza, high dose seasonal, preservative-free Cee Christianson MD Work Phone: [facility] Work Phone: 04-26-2019 influenza, injectabl e, quadrivalent, preservative free Cee Christianson MD Work Phone: [facility] 04-26-2019 pneumococcal conjuga te vaccine, 13 valent Cee Christianson MD Work Phone: [facility] 04-23-2018 influenza, seasonal, injectable Cee Christianson MD Work Phone: [facility] 05-22-2017 influenza, injectabl e, quadrivalent, contains preservative Cee Christianson MD Work Phone: [facility] Work Phone: 05-22-2015 influenza, seasonal, injectable Cee Christianson MD Work Phone: [facility] 12-18-2014 tetanus toxoid, redu grace diphtheria toxoid, and acellular pertussis vaccine, adsorbed Cee Christianson MD Work Phone: [facility] 05-07-2014 influenza, seasonal, injectable Cee Christianson MD Work Phone: [facility] 06-14-2006 influenza virus vaccine, unspecified formulation Cee Christianson MD Work Phone: [facility] Work Phone: 05-31-2006 tuberculin skin test ; purified protein derivative solution, intradermal Cee Christianson MD Work Phone: [facility] Payers Date Payer Category Payer Medicare HUMANA MEDICARE HU[employer]NA MEDICARE PPO [id number] 2021-Present [phone] [place] [address] PPO [id number] 2021 Medicare HUMANA MEDICARE HU[employer]NA MEDICARE PPO [id number] 2021-Present [phone] [place] [address] PPO [id number] 2021 Medicare (Managed Care) HUMANA EDICARE [id number] 2018 Medicare HMO HUMANA MEDICARE Member Subscriber Plan / Payer (Effective 2018-Present) Name: Susan Calderon Relation to Subscriber: Self Name: Susan Calderon Payer ID: [id number] (NAIC) Type: Medicare HMO Address: [place] [id number] 2016 Medicare [id number] Social History Date Type Detail Facility Start: 06-21-2020 End: 02-19-2023 Tobacco smoking status NHIS Occasional tobacco smoker [facility] Start: 06-22-1989 End: 07-25-2022 History of tobacco use Smoker [facility] Start: 06-21-2020 End: 12-18-2022 Cigarettes smoked current (pack per day) - Reported 0.5 [facility] Work Phone: Start: 06-21-2020 End: 05-24-2024 Tobacco use and exposure Smokeless tobacco non-user [facility] Start: 05-26-2021 End: 10-05-2024 Alcohol intake Current drinker of alcohol (finding) [facility] Start: 06-21-2020 History SDOH Alcohol Frequency 4 [facility] Start: 06-21-2020 History SDOH Alcohol Std Drinks 2 [facility] Start: 06-21-2020 History SDOH Alcohol Binge 3 [facility] Start: 06-21-2020 History SDOH Social Connections Get Together 1 [facility] Start: 05-26-2021 Tobacco Comment Down to 2 to 5 cig a day (05/2021); from half PPD--working on quitting; stress triggers; 06/19/19--on patch and has quit smoking. Sometimes half PPD (12/30/20)- [facility] Start: 1955 Sex Assigned At Not on file [facility] Start: 12-19-2021 End: 07-29-2022 Tobacco Comment Down to 2 to 5 cig a day (05/2021); from half PPD--working on quitting; stress triggers; 06/19/19--on patch and has quit smoking. Sometimes half PPD (12/30/20 and ) [facility] Start: 12-22-2021 End: 06-23-2022 Exposure to SARS-CoV-2 (event) Not sure [facility] Start: 06-22-1989 End: 07-25-2022 History of tobacco use Cigarette Smoker [facility] Work Phone: Start: 07-29-2022 End: 05-24-2024 Tobacco smoking status NHIS Ex-smoker [facility] Work Phone: Start: 12-18-2022 End: 02-19-2023 Tobacco use panel [facility] Work Phone: Adult Depression Screening Assessment 0 [facility] Work Phone: Start: 02-19-2023 Tobacco Comment Cigarette every 2-3 days( 02/19/23 )February 19, 2023 Practically quit smoking. Just one the other day and made lightheaded. [facility] Do you belong to any clubs or organizations such as holiness groups, unions, fraternal or athletic groups, or school groups? No [facility] Are you now , , , , never or living with a partner? [facility] How often to you hav e a drink containing alcohol? 2-3 time sa week [facility] How many standard dr inks containing alcohol do you have on a typical day? 3 or 4 [facility] How often do you hav e 6 or more drinks on 1 occasion? Monthly [facility] How hard is it for y ou to pay for the very basics like food, housing, medical care, and heating Not very hard [facility] Do you feel stress - tense, restless, nervous, or anxious, or unable to sleep at night because your mind is troubled all the time - these days [OSQ] To some extent [facility] (I/We) worried reinaldo er (my/our) food would run out before (I/we) got money to buy more. Never true [facility] How often do you hav e 6 or more drinks on 1 occasion? Monthly [facility] Start: 03-16-2022 Sex Female (finding) [facility] Functional Status Date Assessment Result Facility 12-18-2014 Are you deaf, or do you have serious difficulty hearing No 12/18/2014 8:39 AM Verna Kwon LPN No [facility] 12-18-2014 Are you blind, or do you have serious difficulty seeing, even when wearing glasses No 12/18/2014 8:39 AM Verna Kwon LPN No [facility] 12-18-2014 Do you have serious difficulty walking or climbing stairs No 12/18/2014 8:39 AM Verna Kwon LPN No [facility] 12-18-2014 Do you have difficul ty dressing or bathing No 12/18/2014 8:39 AM Verna Kwon LPN [facility] 12-18-2014 Because of a physica l, mental, or emotional condition, do you have difficulty doing errands alone such as visiting a physician's office or shopping No 12/18/2014 8:39 AM Verna Kwon LPN [facility] Mental Status Date Assessment Result Facility 12-18-2014 Because of a physica l, mental, or emotional condition, do you have serious difficulty concentrating, remembering, or making decisions No 12/18/2014 8:39 AM Verna Kwon LPN [facility] Clinical Notes 04-17-2005 to 02-12-2025 Smith Caro, PT - 02/12/2025 11:13 AM Smith Alvarado, PT - 02/08/2025 10:53 AM Smith Alvarado, PT - 02/05/2025 9:18 AM Smith Alvarado PT - 01/25/2025 10:50 AM EDTPatient Instructions Note Date & Type Note Facility 02-12-2025 Note HNO ID: [id number] Author: SMITH CARO PT Service: ? Author [...] Stop Time : 1124 Smith Caro PT [facility] 02-12-2025 History of Present illness [...] Smith Caro PT documented in this encounter [facility] 02-08-2025 Note HNO ID: [id number] Author: SMITH CARO PT Service: ? Author [...] x 15 4: Seated core crunch red ivorian ball 2 x 10 5: Seated core [...] Stop Time : 1131 Smith Caro PT [facility] 02-08-2025 History of Present illness [...] x 15 4: Seated core crunch red ivorian ball 2 x 10 5: Seated core [...] Smith Caro PT documented in this encounter [facility] 02-05-2025 Note HNO ID: [id number] Author: SMITH CARO PT Service: ? Author [...] x 15 4: Seated core crunch red ivorian ball 2 x 10 5: STS x [...] Stop Time : 957 Smith Caro PT [facility] 02-05-2025 History of Present illness [...] x 15 4: Seated core crunch red ivorian ball 2 x 10 5: STS x [...] Smith Caro PT documented in this encounter [facility] 01-25-2025 Note HNO ID: [id number] Author: SMITH CARO PT Service: ? Author [...] 10 3: Seated core crunch iso red ivorian ball 3 x 10 4: Seated lumbar flexion stretch 2 x 10 5: Seated 7# [id number] CW/CCW x 10 Skilled Intervention: Patient was educated in proper exercise technique and purpose for exercises. Provided written instruction for home exercise program to facilitate proper performance and compliance. Billing Therapeutic Exercise Treatment Minutes: 38 Skilled Treatment Time Minutes (timed and untimed codes): 38 Total Session Time (minutes): 38 Session Start Time : 1050 Session Stop Time : 1128 Smith Caro PT [facility] 01-25-2025 History of Present illness [...] 10 3: Seated core crunch iso red ivorian ball 3 x 10 4: Seated lumbar flexion stretch 2 x 10 5: Seated 7# [id number] CW/CCW x 10 Skilled Intervention: Patient was [...] Smith Caro PT documented in this encounter [facility] 01-16-2025 Note HNO ID: [id number] Author: ?, ?, ? Service: ? Author [...] Coffman Pss January 16, 2025 12:44 PM [facility] 01-16-2025 History of Present illness [...] 2025 12:44 PM documented in this encounter [facility] 01-16-2025 Note Patient Outreach (NE TNAV) SUSAN CALDERON ([id number]) 1955 F TXT Date Time Provider Department [...] 99 mg by mouth once daily. - NGLFDRQV-CMNWPYGYCOKPDJ-XUL C ORAL Take by mouth once daily. [...] by mouth two times a day. - enfvanee-apxagt-ubvideli acid (COLLAGEN 1500 PLUS C) 500 mg-800 [...] Encounter Status:Closed by DEANNA LARSEN on 01/16/25 [facility] 01-10-2025 Note Referral Demographics Office Notes Faxed to [facility] CLEMENTE Lama as requested. [phone] [facility] 01-10-2025 Telephone encounter Note Referral Demographics Office Notes Faxed to [facility] PT [place] as requested. [phone] [facility] 01-10-2025 Miscellaneous Notes Referral Demographics Office Notes Faxed to [facility] PT [place] as requested. [phone] Addended by: JULIETA DELGADO. on: 01/09/2025 09:23 AM Modules accepted: Orders Placed referral to PT. Please fax to appropriate location. Thanks. Smith from [facility] PT in [place] called in to report patient was asking for more PT. She had previously received PT at this location. Smith is asking for referral to be faxed to [phone]. Any questions can be directed to [phone]. documented in this encounter [facility] 01-10-2025 Note HNO ID: [id number] Author: ANGELLA SAHU, PT Service: ? Author [...] Stop Time : 844 VANI Sullivan, CLEMENTE [facility] 01-10-2025 History of Present illness [...] VANI Sullivan PT documented in this encounter [facility] 01-09-2025 Note Addended by: JULIETA MEEKS on: 01/09/2025 09:23 AM Modules accepted: Orders [facility] 01-09-2025 Note Addended by: JULIETA MEEKS on: 01/09/2025 09:23 AM Modules accepted: Orders [facility] 01-09-2025 Note Placed referral to P T. Please fax to appropriate location. Thanks. [facility] 01-09-2025 Telephone encounter Note Placed referral to PT. Please fax to appropriate location. Thanks. [facility] 01-09-2025 Miscellaneous Notes Addended by: JULIETA DELGADO on: 01/09/2025 09:23 AM Modules accepted: Orders Placed referral to PT. Please fax to appropriate location. Thanks. Smith from [facility] PT in [place] called in to report patient was asking for more PT. She had previously received PT at this location. Smith is asking for referral to be faxed to [phone]. Any questions can be directed to [phone]. documented in this encounter [facility] 01-09-2025 Note Smith from [facility] in [place] called in to report patient was asking for more PT. She had previously received PT at this location. Smith is asking for referral to be faxed to [phone]. Any questions can be directed to [phone]. [facility] 01-09-2025 Telephone encounter Note Smith from [facility] PT in [place] called in to report patient was asking for more PT. She had previously received PT at this location. Smith is asking for referral to be faxed to [phone]. Any questions can be directed to [phone]. [facility] 01-04-2025 Note HNO ID: [id number] Author: SMITH CARO, PT Service: ? Author [...] Planned: 6 Planned Treatment Interventions: Therapeutic exercise (72016), Neuromuscular re-education (28377), Manual therapy (22059), Therapeutic activities (52253), Self-half-way management (36909), Patient/Family/Caregiver Education PLAN FOR NEXT VISIT: Core [...] injections and PT. The surgeon is with [facility] in [place]. Has had surgery maybe 2005. She can [...] (Legs are shaki (more content not included)... [facility] 01-03-2025 Note Attempted to call rosangela briones. Left her a message to call the office. Told patient to check her discharge summary paperwork because a print out of the order should be there with her after visit paperwork. Told patient to call office if she has any other questions or concerns. [facility] 01-02-2025 History of Present illness Narrative [...] compression fracture of T11 vertebra, initial encounter ([facility]) XR lumbar spine 4-5 view XR THORACIC [...] Lung cancer Father documented in this encounter [facility] 01-01-2025 Telephone encounter Note CD READY FOR DATA SCIENCES DIRECTOR AT [facility] RADIOLOGY [facility] 01-01-2025 Miscellaneous Notes CD READY FOR DATA SCIENCES DIRECTOR AT [facility] RADIOLOGY Patient calling asking to have Lumbar xrays that were done 09/11/2024 put on a disc please. Patient has appt on 01/[address] Lorenzo. 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 If any problem please call patient. Thank you documented in this encounter [facility] 12-30-2024 History of Present illness Narrative Radiology [...] PATIENT PRESENTS WITH AN IMPLANTABLE OR ATTACHED FIELD CONSULTANT: No RADIOLOGY DEPARTMENT: MR; Exam(s) Completed: Spine: Lumbar spine. Lavender Administered: No PERIPHERAL IV DATA: Not applicable SIGNED BY: RT Ruma(Kb) December 30, 2024 8:52 AM documented in this encounter [facility] 12-30-2024 Note HNO ID: [id number] Author: TJ MOREL RT(R) Service: ? Author Type: Lace Winder Type: Progress Notes Filed: 12/30/2024 08:52 Note [...] PATIENT PRESENTS WITH AN IMPLANTABLE OR ATTACHED FIELD CONSULTANT: No RADIOLOGY DEPARTMENT: MR; Exam(s) Completed: Spine: Lumbar spine. Lavender Administered: No PERIPHERAL IV DATA: Not applicable SIGNED BY: RT Ruma(Kb) December 30, 2024 8:52 AM [facility] 12-29-2024 Telephone encounter Note Patient scheduled [facility] 12-29-2024 Miscellaneous Notes Patient scheduled Pcp ordered [...] in a few sessions, Patient presented at service desk associate asking for orders for MRI of the spine as Dr. Christianson in the last office visit cleared the patient to be seen by Dr. Prince Lorenzo, a neurosurgeon. Dr. Lorenzo's office is wanting an MRI completed prior to her scheduled office visit on 01/02/25. Please advise/assist. Amy Alex documented in this encounter [facility] 12-27-2024 Telephone encounter Note Pcp ordered the test. Please call pt to arrange. [facility] 12-27-2024 Telephone encounter Note Filed lumbar MRI for acute and chronic back pain with history of back surgery. Filed stat to see if can get soon. [facility] 12-27-2024 Telephone encounter Note Patient calling asking to have Lumbar xrays that were done 09/11/2024 put on a disc please. Patient has appt on 01/[address] Lorenzo. 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 If any problem please call patient. Thank you [facility] 12-27-2024 Telephone encounter Note Patient calls and [...] would be approved. Azalia Kingston RN T [facility] 12-27-2024 Telephone encounter Note Spoke with patient and she guesses it would be the lower portion ot the thoracic spine as she is having difficulty walking and standing up. She is going to contact Dr. Lorenzo to verify what area it is. Will return call once answered. [facility] 12-27-2024 Telephone encounter Note Verify pain [...] did not improve in a few sessions, [facility] 12-25-2024 Telephone encounter Note Patient presented at service desk associate asking for orders for MRI of the spine as Dr. Christianson in the last office visit cleared the patient to be seen by Dr. Prince Lorenzo, a neurosurgeon. Dr. Lorenzo's office is wanting an MRI completed prior to her scheduled office visit on 01/02/25. Please advise/assist. Amy Alex [facility] 11-30-2024 History of Present illness Narrative Program_ID:[id number] Access Code: [email or web address] URL: [email or web address] Date: 11-30-2024 Prepared By: Danny Tucker Program [...] 11/30/2024 and treatment included: Therapeutic exercise and Self-half-way management. Updated: 11/30/24. Goals for Episode of Care: established 11/01/24 Patient reported outcome of physical function will increase T-score by a minimum 5 points. (NOT MET) Jeff Davis in home exercise program. (NOT MET, rx'd [...] Danny Tucker PT documented in this encounter [facility] 11-30-2024 Note HNO ID: [id number] Author: DANNY TUCKER PT Service: ? Author [...] 11/30/2024 and treatment included: Therapeutic exercise and Self-half-way management. Updated: 11/30/24. Goals for Episode of Care: established 11/01/24 Patient reported outcome of physical function will increase T-score by a minimum 5 points. (NOT MET) Jeff Davis in home exercise program. (NOT MET, rx'd [...] arriving late to appointment. Danny Tucker, PT [facility] 11-29-2024 Note HNO ID: [id number] Author: RUMA WESTFALL MD Service: ? Author [...] lisinopril (ZESTRIL) 40 mg tablet POTASSIUM ORAL VADFQMNG-XPJJBRFIMKMHLK-JEJ C ORAL atenolol (TENORMIN) 25 mg tablet gabapentin (NEURONTIN) 400 mg capsule atorvastatin (LIPITOR) 10 mg tablet montelukast (SINGULAIR) 10 mg tablet ubidecarenone Q-10 (CO Q-10) 10 mg cap szxkzfjm-xubzmi-orsbmmcq acid (COLLAGEN 1500 PLUS C) 500 mg-800 [...] daily; instructed pat (more content not included)... [facility] 11-29-2024 History of Present illness Narrative Reason for Visit Follow up MRI HPI Susan is a 69-year-old female, with a history of memory issues, presenting for follow-up on MRI results and current medication efficacy. Susna is accompanied by her daughter, who is [...] lisinopril (ZESTRIL) 40 mg tablet POTASSIUM ORAL UOTHSFQI-RUVSNBWLYMVXDQ-KML C ORAL atenolol (TENORMIN) 25 mg tablet gabapentin (NEURONTIN) 400 mg capsule atorvastatin (LIPITOR) 10 mg tablet montelukast (SINGULAIR) 10 mg tablet ubidecarenone Q-10 (CO Q-10) 10 mg cap nqyrewbd-sfpcbk-zlupuiga acid (COLLAGEN 1500 PLUS C) 500 mg-800 [...] any unintended typographical errors. Recording using ambient [employer] software for draft documentation of the visit was discussed with the patient/authorized customer service representative; all questions welcomed and answered. Patient/authorized customer service representative agreed to proceed Ruma Westfall MD documented in this encounter [facility] 11-29-2024 Instructions Ruma Westfall MD - 11/29/2024 [...] then, please send me a message through [employer] or call the office. - Continue monitoring your memory and overall health. If you notice any behavioral changes, such as irritability, apathy, or depression, please inform me or your caregiver promptly. Let me know if you have any questions or concerns before your next visit. documented in this encounter [facility] 11-16-2024 Progress note Formatting of t his note might be different from the original. Mammogram had benign findings, 1 year screening mammogram advised. [facility] 11-16-2024 Miscellaneous Notes Mammogram had benign findings, 1 year screening mammogram advised. documented in this encounter [facility] 11-10-2024 Telephone encounter Note Patient has been [...] 02/21/2025 Please advise. Thank you. Umu Núñez. [facility] 11-10-2024 Miscellaneous Notes Patient has been identified [...] you. Umu Núñez. documented in this encounter [facility] 11-07-2024 History of Present illness Narrative Summary: [...] PATIENT PRESENTS WITH AN IMPLANTABLE OR ATTACHED FIELD CONSULTANT: No RADIOLOGY DEPARTMENT: MR; Exam(s) Completed: Head: QUANT PERIPHERAL IV DATA: Not applicable SIGNED BY: JANNA Rubio November 07, 2024 1:16 PM documented in this encounter [facility] 11-07-2024 Note HNO ID: [id number] Author: KIM TOSCANO MRI Tech Service: Radiology [...] PATIENT PRESENTS WITH AN IMPLANTABLE OR ATTACHED FIELD CONSULTANT: No RADIOLOGY DEPARTMENT: MR; Exam(s) Completed: Head: QUANT PERIPHERAL IV DATA: Not applicable SIGNED BY: Kim Toscano porcelain slusher November 07, 2024 1:16 PM [facility] 11-01-2024 Instructions Cee Christianson MD - [...] on February 21. documented in this encounter [facility] 11-01-2024 History of Present illness Narrative Program_ID:[id number] Access Code: [email or web address] URL: [email or web address] Date: 11-01-2024 Prepared By: Danny Tucker Program [...] increase T-score by a minimum 5 points. Jeff Davis in home exercise program. Patient will decrease [...] Planned: 4 Planned Treatment Interventions: Therapeutic exercise (76954), Neuromuscular re-education (80475), Manual therapy (27755), Therapeutic activities (19129), Self-half-way management (38051), Gait Training (55592), Body Mechanics Training, Patient/Family/Caregiver Education PLAN FOR [...] L3-S1) was in the early 1999's, states 3335-9708 per patient. Has pain with walking, pain [...] Lumbar Extension: Major limitation Lumbar R Side Stout: Major limitation Lumbar L Side Stout: Major limitation Lumbar R Side-Bend: Moderate limitation [...] Danny Tucker PT documented in this encounter [facility] 11-01-2024 Note HNO ID: [id number] Author: DANNY TUCKER PT Service: ? Author [...] increase T-score by a minimum 5 points. Jeff Davis in home exercise program. Patient will decrease [...] Planned: 4 Planned Treatment Interventions: Therapeutic exercise (74638), Neuromuscular re-education (47193), Manual therapy (19190), Therapeutic activities (96169), Self-half-way management (05277), Gait Training (27123), Body Mechanics Training, Patient/Family/Caregiver Education PLAN FOR [...] L3-S1) was in the early , states 7404-4875 per patient. Has pain with walking, pain [...] Flags Vertebral Fr (more content not included)... [facility] 10-17-2024 Telephone encounter Note The following approved medication requests have been transmitted electronically. Requested Prescriptions Pending Prescriptions Disp Refills lisinopril (ZESTRIL) 40 mg tablet 90 tablet 2 Sig: Take 1 tablet by mouth once daily. DOSE CHANGE - TAKE ONE DAILY Cee Christianson MD [facility] 10-17-2024 Miscellaneous Notes The following approved medication [...] 2024 3:11 PM documented in this encounter [facility] 10-16-2024 Telephone encounter Note The patient has [...] Kingston RN October 16, 2024 3:11 PM [facility] 10-09-2024 History of Present illness Narrative Radiology [...] PATIENT PRESENTS WITH AN IMPLANTABLE OR ATTACHED FIELD CONSULTANT: No RADIOLOGY DEPARTMENT: Mammography PERIPHERAL IV DATA: Not applicable SIGNED BY: Pete Hernandez October 09, 2024 11:06 AM documented in this encounter [facility] 10-09-2024 Note HNO ID: [id number] Author: ELFEGO BURDICK Mammo Tech Service: ? Author Type: Lace Winder Type: Progress Notes Filed: 10/09/2024 11:12 Note [...] PATIENT PRESENTS WITH AN IMPLANTABLE OR ATTACHED FIELD CONSULTANT: No RADIOLOGY DEPARTMENT: Mammography PERIPHERAL IV DATA: Not applicable SIGNED BY: Pete Hernandez October 09, 2024 11:06 AM [facility] 10-05-2024 Note HNO ID: [id number] Author: SUZANNE DODD LPN Service: ? Author Type: LICENSED NURSE Type: Progress Notes Filed: 10/05/2024 17:54 Note Text: Patient presents for geriatric consult with daughter Holly Sharp. Rooming intake completed with patient to ensure accuracy. PHQ-9, MOCA reviewed with patient and entered into questionnaires. Suzanne Dodd LPN [facility] 10-05-2024 History of Present illness Narrative Patient presents for geriatric consult with daughter Holly Sharp. Rooming intake completed with patient to ensure accuracy. PHQ-9, MOCA reviewed with patient and entered into questionnaires. Suzanne Dodd LPN [facility] Initial Consult Susan [...] secure location? No Social History: Primary language: Wallisian Marital Status: Living situation: Home w/ Family, family lives with her for over a year now. Socially engaged? (participates in activities such as clubs, holiness, community center, sports, games, visiting friends/relatives, etc?): He he she has always been a stay at home person.except for daughter and son being with her or visiting. She does not socialize. Most of her friends . 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 NO [...] , Taking? Yes, Authorizing Provider Thuy Stewart APRN.TIGER MACHINE OPERATOR Medication gabapentin (NEURONTIN) 400 mg capsule, Sig [...] Date , Taking? Yes, Authorizing Provider Cee Chirstianson MD Medication ggnvazqj-ljbwrh-slcxyxhq acid (COLLAGEN 1500 PLUS C) 500 mg-800 [...] vision impairment and wears glasses Follows with home care rn:YES Hearing - Hearing aid : Denies any [...] than 3 times she it got partially [place] Cognitive Exam (MOCA): 22/30 CDR Dementia Scale [...] any unintended typographical errors. Ruma Westfall MD [facility] documented in this encounter [facility] 10-05-2024 Note HNO ID: [id number] Author: RUMA WESTFALL MD Service: ? Author Type: Physician Type: Progress Notes Filed: 10/05/2024 17:54 Note Text: [facility] Initial Consult Susan [...] secure location? No Social History: Primary language: Wallisian Marital Status: Living situation: Home w/ Family, family lives with her for over a year now. Socially engaged? (participates in activities such as clubs, holiness, community center, sports, games, visiting friends/relatives, etc?): He he she has always been a stay at home person.except for daughter and son being with her or visiting. She does not socialize. Most of her friends . 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 NO [...] as needed (crampin (more content not included)... [facility] 10-05-2024 Telephone encounter Note Patient phoned to report she is scheduled with Dr. Westfall at 9:30 today. Her daughter is driving from [facility] and the roads are bad- running late. Patient unsure if she will be late for appt. Patient will call back to let Dr. Westfall office know. Notified Suzanne in Dr. Westfall office. [facility] 10-05-2024 Miscellaneous Notes Patient phoned to report she is scheduled with Dr. Westfall at 9:30 today. Her daughter is driving from [facility] and the roads are bad- running late. Patient unsure if she will be late for appt. Patient will call back to let Dr. Westfall office know. Notified Suzanne in Dr. Westfall office. documented in this encounter [facility] 09-25-2024 Note HNO ID: [id number] Author: CEE CHRISTIANSON MD Service: ? Author Type: Physician Type: Progress Notes Filed: 11/01/2024 18:20 Note Text: This note was created using [employer]. 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 She does not have a living [...] Take by mouth two times a day. hpqiwjrb-zukzdd-xgymsugb acid (COLLAGEN 1500 PLUS C) 500 mg-800 [...] AFTER USE fluticason (more content not included)... [facility] 09-25-2024 History of Present illness Narrative This note was created using [employer]min[employer]. 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 She does not have a living [...] Take by mouth two times a day. mbeikqeh-xofono-pngwyivg acid (COLLAGEN 1500 PLUS C) 500 mg-800 [...] Abs Lymph 1.00 - 4.00 k/uL 1.50 Mcculloch% % 9.0 Abs Mcculloch <0.87 k/uL 0.46 Eosin% % 3.1 Abs [...] follow up with Dr. Lorenzo or another lean manufacturing specialist for further evaluation and management. - Recommended maintaining good posture and considering physical therapy exercises to alleviate discomfort. # Encounter for long-term current use of medication (Z88.049) - Reviewed current medication regimen including cyclobenzaprine, [...] the date of the service which included kitr-bx-xkcg patient care, completing clinical documentation, obtaining and/or reviewing separately obtained history, performing a medically appropriate examination, counseling and educating the patient/family/caregiver, ordering medications, tests, or procedures, communicating with other HCPs (not separately reported), communicating results to the patient/family/caregiver, and care coordination (not separately reported). Cee Christianson MD documented in this encounter [facility] 09-22-2024 History of Present illness Narrative Radiology [...] PATIENT PRESENTS WITH AN IMPLANTABLE OR ATTACHED FIELD CONSULTANT: No RADIOLOGY DEPARTMENT: Ultrasound PERIPHERAL IV DATA: Not applicable SIGNED BY: Angella Tom RDMS RVT September 22, 2024 2:46 PM documented in this encounter [facility] 09-22-2024 Note HNO ID: [id number] Author: ANGELLA TOM RDMS Service: ? Author Type: Fashion Consultant Selling Type: Progress Notes Filed: 09/22/2024 14:46 Note [...] PATIENT PRESENTS WITH AN IMPLANTABLE OR ATTACHED FIELD CONSULTANT: No RADIOLOGY DEPARTMENT: Ultrasound PERIPHERAL IV DATA: Not applicable SIGNED BY: Angella Tom RDMS RVT September 22, 2024 2:46 PM [facility] 09-21-2024 Note HNO ID: [id number] Author: PRADEEP BLANTON MD Service: ? Author Type: Physician Type: Progress Notes Filed: 09/22/2024 00:28 Note Text: This note was created using [employer]. Subjective Patient presents with: Express Care follow-up [...] Take by mouth two times a day. tiaqwief-qdvzzv-vpgzpbfu acid (COLLAGEN 1500 PLUS C) 500 mg-800 [...] Physical Exam Constituti (more content not included)... [facility] 09-21-2024 History of Present illness [...] Take by mouth two times a day. ckeswwxk-kvsskf-elpfmanj acid (COLLAGEN 1500 PLUS C) 500 mg-800 [...] Pradeep Blanton MD documented in this encounter [facility] 09-13-2024 Telephone encounter Note Patient contacted and given message below and verbalized understanding. Rosita Vazquez RN [facility] 09-13-2024 Miscellaneous Notes Patient contacted and given message below and verbalized understanding. Rosita Vazquez RN Please let patient know her urine culture did reveal a UTI. I have sent an antibiotic [facility]. Take this as prescribed. documented in this encounter [facility] 09-13-2024 Telephone encounter Note Please let patient know her urine culture did reveal a UTI. I have sent an antibiotic into her [facility]. Take this as prescribed. [facility] 09-11-2024 History of Present illness Narrative Radiology [...] PATIENT PRESENTS WITH AN IMPLANTABLE OR ATTACHED FIELD CONSULTANT: No RADIOLOGY DEPARTMENT: General X-ray: Exam(s) Completed: Spine X-Ray(s): Lumbar AP / LAT / L5-S1 PERIPHERAL IV DATA: Not applicable SIGNED BY: RT Paulina(R) September 11, 2024 10:03 AM documented in this encounter [facility] 09-11-2024 Note HNO ID: [id number] Author: BOBBY ADAME RT(R) Service: ? Author Type: Lace Winder Type: Progress Notes Filed: 09/11/2024 10:20 Note [...] PATIENT PRESENTS WITH AN IMPLANTABLE OR ATTACHED FIELD CONSULTANT: No RADIOLOGY DEPARTMENT: General X-ray: Exam(s) Completed: Spine X-Ray(s): Lumbar AP / LAT / L5-S1 PERIPHERAL IV DATA: Not applicable SIGNED BY: RT Paulina(R) September 11, 2024 10:03 AM [facility] 09-11-2024 Note HNO ID: [id number] Author: JEAN KIM PA Service: ? Author Type: Physician Assistant Accounting Manager Type: Progress Notes Filed: 09/11/2024 10:44 Note Text: This note was created using Med[employer]. Subjective Susan Calderon is a 69 year [...] Take by mouth two times a day. qgwzblhy-iuvjnv-snagfgjw acid (COLLAGEN 1500 PLUS C) 500 mg-800 [...] use: No Revi (more content not included)... [facility] 09-11-2024 History of Present illness Narrative This note was created using Medmin[employer]. Subjective Susan Calderon is a 69 year [...] Take by mouth two times a day. qjffaxdh-kngkcy-aprqrcnr acid (COLLAGEN 1500 PLUS C) 500 mg-800 [...] continue these. - XR LUMBAR GENERAL 3V AP/LAT/B2-E5-cmnlldb no acute fracture. Unchanged retrolisthesis on L3 [...] evaluation. ROSANGELA Paige documented in this encounter [facility] 08-12-2024 Telephone encounter Note The following approved medication requests have been transmitted electronically. Requested Prescriptions Pending Prescriptions Disp Refills cyclobenzaprine (FLEXERIL) 5 mg tablet 180 tablet 1 Sig: Take 1-2 tablets by mouth three times a day as needed (cramping and muscle spasm). Cee Christianson MD [facility] 08-12-2024 Miscellaneous Notes The following approved medication [...] advise. Joan Tinajero documented in this encounter [facility] 08-11-2024 Telephone encounter Note Patient has been [...] spasm). Please review and advise. Joan Tinajero [facility] 05-24-2024 Note Formatting of this n ote might be different from the original. The patient received a copy of Colonoscopy discharge instructions that contain information for how to contact the physician who performed the procedure and when to seek medical care. [facility] 05-24-2024 Miscellaneous Notes The patient received a copy of Colonoscopy discharge instructions that contain information for how to contact the physician who performed the procedure and when to seek medical care. documented in this encounter [facility] 05-24-2024 Note HNO ID: [id number] Author: LUZ PEPE RN Service: ? Author Type: Registered Nurse Type: Nursing Progress Note Filed: 05/24/2024 11:12 Note Text: Abdomen soft non-distended. Will continue to monitor. [facility] 05-24-2024 Nurse Note Abdomen soft non-distended. Will continue to monitor. [facility] 05-24-2024 Nurse Note Abdomen soft non-distended. Will continue to monitor. documented in this encounter [facility] 05-24-2024 History of Present illness Narrative PROCEDURAL [...] mouth two times a day. 05/23/2024 Yes uarclajf-oiecpd-gegtbcff acid (COLLAGEN 1500 PLUS C) 500 mg-800 [...] TIME: 8:18 PM documented in this encounter [facility] 05-24-2024 Note HNO ID: [id number] Author: MATIAS ZAPATA DO Service: General Surgery [...] mouth two times a day. 05/23/2024 Yes sygcbdgb-efluhc-ozhsjtpm acid (COLLAGEN 1500 PLUS C) 500 mg-800 [...] Medication and Non-Pharmacol (more content not included)... [facility] 05-15-2024 Telephone encounter Note Phoned patient and given provider's message below with verbalized understanding. Patient agreeable. [facility] 05-15-2024 Miscellaneous Notes Phoned patient and given [...] sip of water. documented in this encounter [facility] 05-14-2024 Telephone encounter Note For just screening [...] aspirin, may continue aspirin as noted above. [facility] 05-04-2024 Telephone encounter Note Pt walked in [...] and lisinopril with a sip of water. [facility] 04-21-2024 Note Addended by: CEE GUEVARA on: 04/21/2024 09:30 PM Modules accepted: Orders [facility] 04-21-2024 Miscellaneous Notes Addended by: CEE CHRISTIANSON on: 04/21/2024 09:30 PM Modules accepted: Orders The following approved medication requests have been transmitted electronically. Requested Prescriptions Signed Prescriptions Disp Refills peg 3350-Electrolytes (GOLYTELY) 236-22.74-6.74 -5.86 gram suspension 1 Each 0 Sig: Take 4,000 mL by mouth one time only for 1 dose. As instructed Authorizing Provider: CEE CHRISTIANSON MD Please send Golytely script to [facility] [address] [place] [id number] documented in this encounter [facility] 04-21-2024 Telephone encounter Note The following approved medication requests have been transmitted electronically. Requested Prescriptions Signed Prescriptions Disp Refills peg 3350-Electrolytes (GOLYTELY) 236-22.74-6.74 -5.86 gram suspension 1 Each 0 Sig: Take 4,000 mL by mouth one time only for 1 dose. As instructed Authorizing Provider: CEE CHRISTIANSON MD [facility] 04-21-2024 Telephone encounter Note Please send Golytely script to [facility] [address] [place] [address] [facility] Work Phone: 03-30-2024 Telephone encounter Note Patient notified of provider's instructions. Patient verbalizes understanding. Amy Muller RN [facility] 03-30-2024 Miscellaneous Notes Patient notified of provider's [...] three times daily. Patient said she uses [facility] for her pharmacy. If she is not home can leave message for her. Please advise Patient calling today to request medication gabapentin(NEURONTIN 300 MG CAP) Patient is asking if she could increase the dosage because she is having increased spine pain. Patient last seen - 02/21/24 Future appointment scheduled: yes PHARMACY: [facility] documented in this encounter [facility] 03-29-2024 Telephone encounter Note Called and left a voicemail for the Patient to call back and ask for a nurse to receive the providers message. Ariana Cherry RN [facility] 03-29-2024 Telephone encounter Note Will okay RX [...] 180 days. Authorizing Provider: CEE CHRISTIANSON MD [facility] 03-29-2024 Telephone encounter Note Phoned patient and [...] three times daily. Patient said she uses [facility] for her pharmacy. If she is not home can leave message for her. Please advise [facility] 03-29-2024 Telephone encounter Note Patient calling today to request medication gabapentin(NEURONTIN 300 MG CAP) Patient is asking if she could increase the dosage because she is having increased spine pain. Patient last seen - 02/21/24 Future appointment scheduled: yes PHARMACY: [facility] 03-29-2024 Telephone encounter Note Prescription Refill Information [...] Maite Molina March 29, 2024 2:44 PM [facility] 03-29-2024 Miscellaneous Notes Prescription Refill Information The [...] 2024 2:44 PM documented in this encounter [facility] 02-21-2024 Instructions Cee Christianson MD - 02/21/2024 [...] If you do not have a responsible driver material handler (family member or friend) with you to take you home, your exam cannot be done with sedation and will be cancelled. Please bring a list of all of your current medications, including any Yahq-akp-Uertyyf medications with you. Medications If you take [...] exam. 2 07/2019 documented in this encounter [facility] 02-21-2024 Note HNO ID: [id number] Author: CEE CHRISTIANSON MD Service: ? Author Type: Physician Type: Progress Notes Filed: 02/22/2024 00:05 Note Text: This note was created using Medminderriter. Subjective Susan Calderon is a 68 year [...] 57.0 Abs Kyle (more content not included)... [facility] 02-21-2024 History of Present illness Narrative This note was created using [employer]. Subjective Susan Calderon is a 68 year [...] Abs Lymph 1.00 - 4.00 k/uL 1.50 Mcculloch% % 9.0 Abs Mcculloch <0.87 k/uL 0.46 Eosin% % 3.1 Abs [...] the date of the service which included imdz-js-behz patient care, completing clinical documentation, obtaining and/or reviewing separately obtained history, performing a medically appropriate examination, counseling and educating the patient/family/caregiver, ordering medications, tests, or procedures, independently interpreting results (not separately reported), and communicating results to the patient/family/caregiver. 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 RIGOBERTO Lafleur I will print this. [...] pt and she will stop in and coal picker. Elke Gregorio LPN documented in this encounter [facility] 02-01-2024 Telephone encounter Note I will print this. 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 Elke Gregorio LPN [facility] 01-18-2024 Telephone encounter Note Pt notified and verbalized understanding. Sole Morris MA [facility] 01-18-2024 Miscellaneous Notes Pt notified and verbalized [...] drawn. Call pt on her cell phone [phone]. documented in this encounter [facility] 01-18-2024 Telephone encounter Note Fasting lipid panel ordered. Do with all other labs ordered. [facility] Work Phone: 01-18-2024 History of Present illness Narrative Pt had 2 sets of orders in by 2 different providers. One set discontinued. Order for lipid panel placed to have drawn with other labs. documented in this encounter [facility] 01-18-2024 Telephone encounter Note Pt saw Thuy [...] drawn. Call pt on her cell phone [phone]. [facility] 01-14-2024 Telephone encounter Note Patient has been [...] found Please advise. Thank you. Joan Neal. [facility] 01-14-2024 Miscellaneous Notes Patient has been identified [...] you. Joan Neal. documented in this encounter [facility] 12-17-2023 History of Present illness Narrative Associated [...] osteoarthritis predominantly in the medial compartment with ojuu-kj-adwz articulation MRI: None DIAGNOSIS Encounter Diagnosis ICD-10-CM [...] which included preparing to see the patient, phts-rr-yrlk patient care, completing clinical documentation, obtaining and/or reviewing separately obtained history, performing a medically appropriate examination, counseling and educating the patient/family/caregiver, ordering medications, tests, or procedures, communicating with other HCPs (not separately reported), independently interpreting results (not separately reported), communicating results to the patient/family/caregiver, and care coordination (not separately reported). PROCEDURE: Large Joint Arthro/Inj: L knee joint Informed Consent Consent Obtained: Verbal Brothers Protocol A moment to CARE was completed. [...] comment (brace prn) documented in this encounter [facility] 12-17-2023 History of Present illness Narrative Radiology [...] PATIENT PRESENTS WITH AN IMPLANTABLE OR ATTACHED FIELD CONSULTANT: No RADIOLOGY DEPARTMENT: General X-ray: Exam(s) Completed: Lower Extremity X-Ray(s): Knee, AP / Lat / Tunne / Merchant Left and Wt. Bearing PERIPHERAL IV DATA: Not applicable SIGNED BY: RT Aidee(R) December 17, 2023 10:53 AM documented in this encounter [facility] 12-14-2023 History of Present illness Narrative SUBJECTIVE [...] 1000 of D OTC NUTRITIONAL SUPPLEMENT Prevagen glucosamine/chondroitin/C/Ujice (GLUCOSAMINE-CHONDROITIN COMPLX ORAL) Take by mouth. naproxen [...] appointment.. DAMIAN Hewitt documented in this encounter [facility] 10-04-2023 Miscellaneous Notes [facility] pharmacy calls and is asking for refills on medication. Called patient and patient states that she would rather have medications to all be sent to [facility]. Please send all future refills to [facility]. Amy Muller RN documented in this encounter [facility] 09-30-2023 Miscellaneous Notes Patient has been identified [...] you. Carly Fink. documented in this encounter [facility] 09-27-2023 Miscellaneous Notes Patient notified and voiced [...] mg. Please advise. documented in this encounter [facility] 09-14-2023 History of Present illness Narrative This [...] Take 500 mg by mouth once daily. GIZVKXJ-CZZE-AZGRB-OREG-CAPRYL ORAL Take 1 tablet by mouth once [...] 1 tablet by mouth daily at bedtime. PPGPKBR-ZYSEBURQE-EHLF ORAL Take 1 tablet by mouth once [...] for immunization Z23 RSV PRINTED PHARMACY INSTRUCTIONS [employer] COVID-19 VACCINE (2022- [place]) AGE 12+ YR [...] Cee Christianson MD documented in this encounter [facility] 05-10-2023 Miscellaneous Notes Please clarify directions. Pt [...] advise. Deanna Burns documented in this encounter [facility] 02-25-2023 Miscellaneous Notes Change of pharmacy Patient [...] [place] Pss documented in this encounter [facility] 02-25-2023 Miscellaneous Notes Patient has been identified [...] advise. Sole Maria documented in this encounter [facility] 02-19-2023 Instructions Cee Christianson MD - 02/19/2023 11:10 AM EDT Labs anytime in the next 3 months. documented in this encounter [facility] 02-19-2023 History of Present illness Narrative Images from the original note were not included. This note was created using [employer]OGAS[employer]. Subjective Susan Calderon is a 67 year [...] Take 500 mg by mouth once daily. FDPVJMF-YHXH-KIDYL-OREG-CAPRYL ORAL Take 1 tablet by mouth once [...] Take 10 mg by mouth once daily. ESMPDSW-FJPWSYPOM-TDDS ORAL Take 1 tablet by mouth once [...] Cee Christianson MD documented in this encounter [facility] 01-04-2023 History of Present illness Narrative Radiology [...] 2023 11:17 AM documented in this encounter [facility] 01-04-2023 History of Present illness Narrative Radiology [...] IV DATA: Not applicable SIGNED BY: Tree HernandezEyegroove Ricky January 04, 2023 10:50 AM documented in this encounter [facility] 12-18-2022 History of Present illness Narrative SUBJECTIVE [...] Take 250 mg by mouth once daily. SRPRCGL-KPWZ-FKBFY-OREG-CAPRYL ORAL Take 1 tablet by mouth once [...] Take 400 Units by mouth once daily. CRVXYGB-GGICZDFFH-KWBV ORAL Take 1 tablet by mouth once [...] appointment.. DAMIAN Hewitt documented in this encounter [facility] 08-31-2022 History of Present illness Narrative POPULATION [...] 2022 1:36 PM documented in this encounter [facility] 08-03-2022 Miscellaneous Notes Patient returned call and went over notes below from Zakia Sneed CHAIN SAW OPERATOR with understanding. LEFT MESSAGE FOR PATIENT TO CALL OFFICE. Left message for patient to return call to office. BPs look good. Continue unchanged for now Patient wanted to update provider on most recent blood pressure results since beginning new medication regiment. 07/31/22 12:30 128/82 pulse 68 1:00 129/80 pulse 69 2:00 1199/75 pulse 65 documented in this encounter [facility] 07-30-2022 Miscellaneous Notes Noted, agree. If taking [...] previously and currently. documented in this encounter [facility] 06-23-2022 Instructions Zakia Sneed APRN.CNS - 06/23/2022 2:38 PM EST Check to see if your insurance covers shingles vaccine and what location to get the vaccine -usually best covered at your local pharmacy where you get prescriptions filled documented in this encounter [facility] 06-23-2022 History of Present illness Narrative SUBJECTIVE: [...] <2.54 mg/dL 0.76 documented in this encounter [facility] 01-01-2022 Miscellaneous Notes January 01, 2022 PID: [id number] Susan Calderon [address] [phone] Dear Ms. Calderon, We are pleased to [...] report will be kept on file at [facility] as part of your permanent medical record and are available for your continuing care. Thank you for allowing us to help in meeting your health care needs. Sincerely, Dr. Manzano Interpreting Radiologist [facility] (Normal over 40) documented in this encounter [facility] 01-01-2022 History of Present illness Narrative Radiology [...] IV DATA: Not applicable SIGNED BY: Tree HernandezEyegroove Ricky January 01, 2022 12:47 PM documented in this encounter [facility] 12-19-2021 History of Present illness Narrative Images from the original note were not included. This note was created using YOGASMOGA. Subjective Susan Calderon is a 66 year [...] Cee Christianson MD documented in this encounter [facility] 12-16-2021 Miscellaneous Notes Spoke with pt and [...] Lucille Ji LPN documented in this encounter [facility] 04-17-2005 History of Past i llness Narrative Problem Noted Date Resolved Date Depressive disorder, not elsewhere classified 01/26/2021 documented as of this encounter (statuses as of 12/08/2021) [facility] History of Past illness Narrative* Problem Noted Date Resolved Date Depressive disorder, not elsewhere classified 01/26/2021 documented as of this encounter (statuses as of 12/16/2021) [facility] History of Past illness Narrative* Problem Noted Date Resolved Date Depressive disorder, not elsewhere classified 01/26/2021 documented as of this encounter (statuses as of 01/02/2022) [facility] History of Past illness Narrative* Problem Noted Date Resolved Date Depressive disorder, not elsewhere classified 01/26/2021 documented as of this encounter (statuses as of 01/03/2022) [place] [address]02-2005 History of Past illness Narrative* Problem Noted Date Resolved Date Depressive disorder, not elsewhere classified 01/26/2021 documented as of this encounter (statuses as of 02/12/2022) [address]2005 History of Past illness Narrative* Problem Noted Date Resolved Date Depressive disorder, not elsewhere classified 01/26/2021 documented as of this encounter (statuses as of 02/20/2022) [address]2005 History of Past illness Narrative* Problem Noted Date Resolved Date Depressive disorder, not elsewhere classified 01/26/2021 documented as of this encounter (statuses as of 06/25/2022) [address]2005 History of Past illness Narrative* Problem Noted Date Resolved Date Depressive disorder, not elsewhere classified 01/26/2021 documented as of this encounter (statuses as of 07/30/2022) [place] [address]02-2005 History of Past illness Narrative* Problem Noted Date Resolved Date Depressive disorder, not elsewhere classified 01/26/2021 documented as of this encounter (statuses as of 08/03/2022) [place] [address]02[address]2005 History of Past illness Narrative* Problem Noted Date Resolved Date Depressive disorder, not elsewhere classified 01/26/2021 documented as of this encounter (statuses as of 08/31/2022) [facility] of Past illness Narrative* Problem Noted Date Resolved Date Depressive disorder, not elsewhere classified 01/26/2021 documented as of this encounter (statuses as of 12/18/2022) [address]2005 History of Past illness Narrative* Problem Noted Date Diagnosed Date Resolved Date Depressive disorder, not elsewhere classified 04/17/20 05 01/26/2021 documented as of this encounter (statuses as of 02/26/2023) [address]2005 History of Past illness Narrative* Problem Noted Date Diagnosed Date Resolved Date Depressive disorder, not elsewhere classified 04/17/20 05 01/26/2021 documented as of this encounter (statuses as of 02/26/2023) [address]2005 History of Past illness Narrative* Problem Noted Date Diagnosed Date Resolved Date Depressive disorder, not elsewhere classified 04/17/20 05 01/26/2021 documented as of this encounter (statuses as of 03/29/2023) [place] [address]02-2005 History of Past illness Narrative* Problem Noted Date Diagnosed Date Resolved Date Depressive disorder, not elsewhere classified 04/17/20 05 01/26/2021 documented as of this encounter (statuses as of 05/11/2023) [facility] of Past illness Narrative* Problem Noted Date Diagnosed Date Resolved Date Depressive disorder, not elsewhere classified 04/17/20 05 01/26/2021 documented as of this encounter (statuses as of 06/20/2023) [place] [address]2005 History of Past illness Narrative* Problem Noted Date Diagnosed Date Resolved Date Depressive disorder, not elsewhere classified 04/17/20 05 01/26/2021 documented as of this encounter (statuses as of 06/20/2023) [place] [address]-2005 History of Past illness Narrative* Problem Noted Date Diagnosed Date Resolved Date Depressive disorder, not elsewhere classified 04/17/20 05 01/26/2021 documented as of this encounter (statuses as of 07/06/2023) [facility] of Past illness Narrative* Problem Noted Date Diagnosed Date Resolved Date Depressive disorder, not elsewhere classified 04/17/20 05 01/26/2021 documented as of this encounter (statuses as of 09/27/2023) [facility] of Past illness Narrative* Problem Noted Date Diagnosed Date Resolved Date Depressive disorder, not elsewhere classified 04/17/20 05 01/26/2021 documented as of this encounter (statuses as of 09/30/2023) [place] [address]02-2005 History of Past illness Narrative* Problem Noted Date Diagnosed Date Resolved Date Depressive disorder, not elsewhere classified 04/17/20 05 01/26/2021 documented as of this encounter (statuses as of 10/04/2023) [place] [address]02-2005 History of Past illness Narrative* Problem Noted Date Diagnosed Date Resolved Date Depressive disorder, not elsewhere classified 04/17/20 05 01/26/2021 documented as of this encounter (statuses as of 10/15/2023) [facility] Encounter for screening mammogram for breast cancer [facility]* Diagnosis Essential hypertension Unspecified essential hypertension Allergic rhinitis, unspecified seasonality, unspecified trigger [facility] [facility]* Diagnosis Encounter for screening mammogram for breast cancer [facility] Diagnosis Essential hypertension- Primary Unspecified essential [...] use of medication [facility] Diagnosis Asthma- Primary Unspecified asthma Need for shingles vaccine Need for prophylactic vaccination and inoculation against other viral diseases Screening for osteoporosis Special screening for osteoporosis Asymptomatic menopause Encounter for immunization Need for other specified prophylactic vaccination against single bacterial disease [facility] Diagnosis Primary hypertension- Primary Unspecified essential hypertension Tobacco use disorder Generalized anxiety disorder Obesity, Class II, BMI 35-39.9 Obesity, unspecified Encounter for screening mammogram for breast cancer Screening for osteoporosis Special screening for osteoporosis Asymptomatic menopause Screening for depression [facility] Diagnosis Primary hypertension Unspecified essential hypertension Essential hypertension Unspecified essential hypertension documented in this [facility] Diagnosis Essential hypertension Unspecified essential hypertension documented in this [facility] Diagnosis Pes anserinus bursitis of left [...] use of medication documented in this [facility] Diagnosis Encounter for screening mammogram for breast cancer documented in this [facility] Diagnosis Screening for osteoporosis Special screening for osteoporosis Asymptomatic menopause documented in this [facility] Diagnosis Primary hypertension- Primary Unspecified essential [...] single bacterial disease [facility] this [facility] Diagnosis Chronic pain of left knee- Primary Pain in joint, lower leg Allergic rhinitis, unspecified seasonality, unspecified trigger Medication management Encounter for long-term (current) use of other medications Encounter for therapeutic drug monitoring [facility] Diagnosis Left knee pain, unspecified chronicity- Primary [facility] this [facility] Diagnosis Primary osteoarthritis of left knee- Primary Primary localized osteoarthrosis, lower leg Chronic pain of left knee Pain in joint, lower leg [facility] this [facility] Diagnosis Left knee pain, unspecified chronicity documented [facility] this [facility] Diagnosis Primary hypertension Unspecified essential hypertension documented in this [facility]* Diagnosis Hypercholesteremia- Primary Pure hypercholesterolemia documented in this encounter [facility] Diagnosis Encounter for screening mammogram for breast cancer documented in this [facility]* Diagnosis Primary hypertension- Primary Unspecified essential [...] malignant neoplasms, colon documented in this [facility] Diagnosis Essential hypertension Unspecified essential hypertension documented in this [facility] Diagnosis Encounter for screening colonoscopy- Primary Special screening for malignant neoplasms, colon Screening for colon cancer Special screening for malignant neoplasms, colon documented in this [facility]* Diagnosis Urinary frequency- Primary Acute midline low back pain with right-sided sciatica Acute midline low back pain with right-sided sciatica documented [facility] this [facility] Diagnosis Acute midline low back pain with right-sided sciatica documented in this encounter [facility]* Diagnosis Urinary tract infection without hematuria, site unspecified- Primary Right-sided low back pain without sciatica, unspecified chronicity documented in this [facility]* Diagnosis Urinary tract infection without hematuria, site unspecified Right-sided low back pain without sciatica, unspecified chronicity documented in this [facility]* Diagnosis Memory deficit- Primary Memory loss Cognitive impairment, mild, so stated Mild cognitive impairment, so stated Gait instability Abnormality of gait Balance disorder Other symptoms involving nervous and musculoskeletal systems documented in this [facility]* Diagnosis Encounter for screening mammogram for breast cancer documented in this [facility]* Diagnosis Primary hypertension Unspecified essential hypertension documented in this encounter [facility]* Diagnosis Gait instability- Primary Abnormality of gait documented in this encounter [facility]* Diagnosis Memory deficit- Primary Memory loss [...] for breast cancer documented in this [facility]* Diagnosis Cognitive impairment, mild, so stated Mild cognitive impairment, so stated documented [facility] this [facility]* Diagnosis Alzheimer's disease (HCC)- Primary Alzheimer's disease History of traumatic brain injury Personal history of traumatic brain injury documented [facility] this [facility]* Diagnosis Gait instability- Primary Abnormality of gait documented in this [facility]* Diagnosis Degeneration of intervertebral disc of lumbar region with discogenic back pain- Primary S/P lumbar spine operation Other postprocedural status Chronic midline low back pain without sciatica Acute midline low back pain without sciatica documented [facility] this [facility]* Diagnosis Degeneration of intervertebral disc of lumbar region with discogenic back pain S/P lumbar spine operation Other postprocedural status Chronic midline low back pain without sciatica Acute midline low back pain without sciatica documented in this encounter [facility] note* Diagnosis Lumbar stenosis with neurogenic claudication- Primary Closed wedge compression fracture of T11 vertebra, initial encounter ([facility]) Arachnoiditis Unspecified meningitis documented in this encounter [facility] note* Diagnosis Lumbar stenosis with neurogenic claudication- Primary Arachnoiditis Unspecified meningitis documented in this encounter [facility] note* Diagnosis Gait instability- Primary Abnormality of gait documented in this encounter [facility] note* Diagnosis Lumbar stenosis with neurogenic claudication- Primary Arachnoiditis Unspecified meningitis documented in this encounter [facility] note* Diagnosis Gait instability- Primary Abnormality of gait documented in this encounter [facility] note* Diagnosis Gait instability- Primary Abnormality of gait documented in this encounter [facility] note* Diagnosis Gait instability- Primary Abnormality of gait documented in this encounter [facility] for [facility] (narrative)* Diagnostic Procedure Only (Routine) - Pending Review Specialty Diagnoses / Procedures Referred By Rafael meyer Referred To Contact [facility] Diagnoses Encounter for screening mammogram for breast cancer Procedures NAVI SCREENING SCREENING MAMMOGRAPHY BI 2-VIEW BREAST INC Cee Vicente MD [address] [place] [address] [place] [address] Referral ID Status Reason Start Date Expiration Date Visits Requested Visits Authorized [id number] Pending Review Auto-Generat ed Referral 12/03/2021 01/02/2023 1 1 [facility] for referral (narrative)* Diagnostic Procedure Only (Routine) - Closed Specialty Diagnoses / Procedures Referred By Rafael meyer Referred To Contact [facility] Diagnoses Encounter for screening mammogram for breast cancer Procedures NAVI SCREENING SCREENING MAMMOGRAPHY BI 2-VIEW BREAST INC Cee Vicente MD [address] [place] [address] [facility] [address] [address] Referral ID Status Reason Start Date Expiration Date V isits Requested Visits Authorized [id number] Closed Auto-Generate d Referral 12/03/2021 01/02/2023 1 1 [facility] for referral (narrative)* Outpatient Procedure (Routine) - Pending Review Specialty Diagnoses / Procedures Referred By Contac t Referred To Contact [facility] Diagnoses Asthma Procedures SPIROMETRY - BASELINE AND POST DILATOR BRNCDILAT RSPSE SPMTRY PRE&POST-BRNCDILAT ADMZakia Cervantes APRN.CNS [address] [place] [address] [facility] [place] [address] [place] [address] Referral ID Status Reason Start Date Expiration Date Visits Requested Visits Authorized [id number] Pending Review Auto-Generat ed Referral 06/23/2022 07/23/2023 1 1 [facility] ([facility])* Diagnostic Procedure Only (Routine) - Authorized Specialty Diagnoses / Procedures Referred By Rafael t Referred To Contact [facility] Diagnoses Encounter for screening mammogram for breast cancer Procedures NAVI SCREENING SCREENING MAMMOGRAPHY BI 2-VIEW BREAST INC CAD Thuy Stewart APRN.TIGER MACHINE OPERATOR [address] [place] [address] [facility] [address] [place] [address] Referral ID Status Reason Start Date Expiration Date Visits Requested Visits Authorized [id number] Authorized Auto-Generat ed Referral 12/18/2022 01/17/2024 [facility] Diagnostic Procedure Only (Routine) - Closed Specialty Diagnoses / Procedures Referred By Contac t Referred To Contact [facility] Diagnoses Encounter for screening mammogram for breast cancer Procedures NAVI SCREENING SCREENING MAMMOGRAPHY BI 2-VIEW BREAST INC CAD Thuy Stewart APRN.CNP [address] [place] [address] [facility] [address] [place] [address] Referral ID Status Reason Start Date Expiration Date V isits Requested Visits Authorized [id number] Closed Auto-Generate d Referral 12/18/2022 01/17/2024 1 1 [facility] for referral (narrative)* Diagnostic Procedure Only (Routine) - Pending Review Specialty Diagnoses / Procedures Referred By Contac t Referred To Contact XR IMAGING Diagnoses Left knee pain, unspecified chronicity Procedures XR KNEE GENERAL 4V AP BOTH/PA BOTH/LAT/MERC LEFT RADIOLOGIC EXAM KNEE COMPLETE 4/MORE VIEWS Edgard Dubois PA-C [address] [address] [place] [address] Referral ID Status Reason Start Date Expiration Date Visits Requested Visits Authorized [id number] Pending Review Auto-Generat ed Referral 12/15/2023 01/13/2025 1 1 [facility] for referral (narrative)* Diagnostic Procedure Only (Routine) - Pending Review Specialty Diagnoses / Procedures Referred By Contac t Referred To Contact [facility] Diagnoses Encounter for screening mammogram for breast cancer Procedures NAVI SCREENING W KEVIN SCREENING DIGITAL BREAST TOMOSYNTHESIS BI SCREENING MAMMOGRAPHY BI 2-VIEW BREAST INC Cee Vicente MD [address] [place] [address] [facility] [address] [place] [address] Referral ID Status Reason Start Date Expiration Date Visits Requested Visits Authorized [id number] Pending Review Auto-Generat ed Referral 02/16/2024 03/17/2025 1 1 [facility] for referral (narrative)* Outpatient Procedure (Routine) - Pending Review Specialty Diagnoses / Procedures Referred By Contac t Referred To Contact [facility] Diagnoses Screening for colon cancer Procedures COLONOSCOPY SCREENING COLONOSCOPY FLX DX W/COLLJ SPEC WHEN PFRMChloe Songa D, MD [address] [place] [address] [facility] [address] [address] Referral ID Status Reason Start Date Expiration Date Visits Requested Visits Authorized [id number] Pending Review Auto-Generat ed Referral 02/21/2024 02/20/2025 1 1 [facility] for referral (narrative)* Outpatient Procedure (Routine) - Closed Specialty Diagnoses / Procedures Referred By Contac t Referred To Contact [facility] Diagnoses Screening for colon cancer Procedures COLONOSCOPY SCREENING COLONOSCOPY FLX DX W/COLLJ SPEC WHEN Cee Corbett MD [address] [place] [id number] [facility] Disease [place] [address] [place] [address] Referral ID Status Reason Start Date Expiration Date V isits Requested Visits Authorized [id number] Closed Auto-Generate d Referral 05/23/2024 07/21/2024 1 1 T [facility] for referral (narrative)* Diagnostic Procedure Only (Urgent) - Closed Specialty Diagnoses / Procedures Referred By Contac t Referred To Contact XR IMAGING Diagnoses Acute midline low back pain with right-sided sciatica Procedures XR LUMBAR GENERAL 3V AP/LAT/L5-S1 RADEX SPINE LUMBOSACRAL 2/3 VIEWS Jean Kim PA [address] [place] [address] [place] [address] Referral ID Status Reason Start Date Expiration Date V isits Requested Visits Authorized [id number] Closed Auto-Generate d Referral 09/11/2024 10/11/2025 1 1 [facility] for referral (narrative)* Diagnostic Procedure Only (Urgent) - Closed Specialty Diagnoses / Procedures Referred By Contac t Referred To Contact XR IMAGING Diagnoses Acute midline low back pain with right-sided sciatica Procedures XR LUMBAR GENERAL 3V AP/LAT/L5-S1 RADEX SPINE LUMBOSACRAL 2/3 VIEWS Jean Kim PA [address] [place] [address] [place] [address] Referral ID Status Reason Start Date Expiration Date V isits Requested Visits Authorized [id number] Closed Auto-Generate d Referral 09/11/2024 10/11/2025 1 1 [facility] for referral (narrative)* Diagnostic Procedure Only (Routine) - Authorized Specialty Diagnoses / Procedures Referred By Rafael t Referred To Contact [facility] Diagnoses Urinary tract infection without hematuria, site unspecified Acute left-sided low back pain without sciatica Procedures US KIDNEY/BLADDER US RETROPERITONEAL REAL TIME W/IMAGE COMPLETE Pradeep Blanton MD [facility] [place] [id number] [place] [address] Referral ID Status Reason Start Date Expiration Date Visits Requested Visits Authorized [id number] Authorized Auto-Generat ed Referral 09/21/2024 10/21/2025 1 1 [facility] for visit Narrative* Diagnostic Procedure Only (Routine) - Closed Specialty Diagnoses / Procedures [facility] To Contact [facility] Diagnoses Encounter for screening mammogram for breast cancer Procedures NAVI SCREENING SCREENING MAMMOGRAPHY BI 2-VIEW BREAST INC CAD Cee Christianson MD [facility] [place] [address] [facility] [address] [address] Referral ID Status Reason Start Date Expiration Date V isits Requested Visits Authorized [id number] Closed Auto-Generate d Referral 12/03/2021 01/02/2023 1 1 [facility] for visit Narrative* Diagnostic Procedure Only (Routine) - Closed Specialty Diagnoses / Procedures [facility] Ref[facility] To Contact [facility] Diagnoses Encounter for screening mammogram for breast cancer Procedures NAVI SCREENING SCREENING MAMMOGRAPHY BI 2-VIEW BREAST INC CAD Thuy Stewart APRN.TIGER MACHINE OPERATOR [address] [place] [address] [facility] [address] [place] [address] Referral ID Status Reason Start Date Expiration Date V isits Requested Visits Authorized [id number] Closed Auto-Generate d Referral 12/18/2022 01/17/2024 1 1 [facility] for visit Narrative* Diagnostic Procedure Only (Routine) - Closed Specialty Diagnoses / Procedures Referred By Contac t Referred To Contact XR IMAGING Diagnoses Left knee pain, unspecified chronicity Procedures XR KNEE GENERAL 4V AP BOTH/PA BOTH/LAT/MERC LEFT RADIOLOGIC EXAM KNEE COMPLETE 4/MORE VIEWS Edgard Dubois PA-C [address] [address] [place] [address] Referral ID Status Reason Start Date Expiration Date V isits Requested Visits Authorized [id number] Closed Auto-Generate d Referral 12/15/2023 01/13/2025 1 1 [facility] for visit Narrative* Outpatient Procedure (Routine) - Closed Specialty Diagnoses / Procedures Referred By Contac t Referred To Contact [facility] Diagnoses Screening for colon cancer Procedures COLONOSCOPY SCREENING COLONOSCOPY FLX DX W/COLLJ SPEC WHEN PFCee Kimble MD [address] [place] [address] [facility] [place] [address] [place] [address] Referral ID Status Reason Start Date Expiration Date V isits Requested Visits Authorized [id number] Closed Auto-Generate d Referral 05/23/2024 07/21/2024 1 1 [facility] for visit Narrative* Diagnostic Procedure Only (Urgent) - Closed Specialty Diagnoses / Procedures Referred By Contac t Referred To Contact XR IMAGING Diagnoses Acute midline low back pain with right-sided sciatica Procedures XR LUMBAR GENERAL 3V AP/LAT/L5-S1 RADEX SPINE LUMBOSACRAL 2/3 VIEWS Jean Kim PA [address] [place] [address] [place] [address] Referral ID Status Reason Start Date Expiration Date V isits Requested Visits Authorized [id number] Closed Auto-Generate d Referral 09/11/2024 10/11/2025 1 1 [facility] for visit Narrative* Diagnostic Procedure Only (Routine) - Closed Specialty Diagnoses / Procedures Referred By Rafael t Referred To Contact [facility] Diagnoses Encounter for screening mammogram for breast cancer Procedures NAVI SCREENING SCREENING MAMMOGRAPHY BI 2-VIEW BREAST INC CAD Cee Christianson MD [address] [place] [address] Phone: tel: fax: [facility] [address] [place] [address] Referral ID Status Reason Start Date Expiration Date V isits Requested Visits Authorized [id number] Closed Auto-Generate d Referral 09/25/2024 10/25/2025 1 1 [facility] for visit Narrative* MRI/CT (Routine) - Closed Specialty Diagnoses / Procedures Referred By Rafael t Referred To Contact [facility] Diagnoses Cognitive impairment, mild, so stated Procedures MRI BRAIN W QUANT WO IVCON MRI BRAIN BRAIN STEM W/O CONTRAST MATERIAL Ruma Westfall MD [address] [place] [address] Phone: tel: fax: [place] [address] Referral ID Status Reason Start Date Expiration Date V isits Requested Visits Authorized [id number] Closed Auto-Generate d Referral 10/27/2024 12/26/2024 1 1 [facility] for visit Narrative* MRI/CT (Urgent) - Pending [...] W/O CONTRAST MATERIAL Cee Christianson MD [address] [place] [address] Phone: tel: fax: [place] [address] Referral ID Status Reason Start Date Expiration Date Visits Requested Visits Authorized [id number] Pending Review Auto-Genera brandi Referral Patient Cleared - Admin/Chair man/Directo r advise to proceed or did not respond 12/29/2024 02/25/2025 1 1 [facility] Summary Purpose Family History No Family History [...] left knee Procedures CONSULT TO ORTHOPAEDICS OFFICE/OUTPATIENT [facility] 60 MINUTES Thuy Stewart APRN.TIGER MACHINE OPERATOR [address] [place] [address] Referral ID Status Reason Start Date Expiration Date Visits Requested Visits Authorized [id number] Authorized PCP Requested Referral 12/14/2023 12/13/2024 1 1 Additional Source Comments INFORMATION SOURCE (unrecogn ized section and content) DATE CREATED AUTHOR 02/17/2018 [facility] DATE CREATED AUTHOR AUTHOR'S ORGANIZ ATION 11/08/2024 [facility] DATE CREATED AUTHOR AUTHOR'S ORGANIZ ATION 12/31/2024 [facility] DATE CREATED AUTHOR AUTHOR'S ORGANIZ ATION 01/12/2025 [facility] DATE CREATED AUTHOR AUTHOR'S ORGANIZ ATION 02/13/2025 [facility] Source Comments (unrecognize d section and content) In the event this informatio n is protected by the Federal Confidentiality of Alcohol and Drug Abuse Patient Records regulations: The Federal rules restrict any use of the information to criminally investigate or prosecute any alcohol or drug abuse patient.[facility] the event this information is protected by the Federal Confidentiality of Alcohol and Drug Abuse Patient Records regulations: The Federal rules restrict any use of the information to criminally investigate or prosecute any alcohol or drug abuse patient.[facility] the event this information is protected by the Federal Confidentiality of Alcohol and Drug Abuse Patient Records regulations: The Federal rules restrict any use of the information to criminally investigate or prosecute any alcohol or drug abuse patient.[facility] the event this information is protected by the Federal Confidentiality of Alcohol and Drug Abuse Patient Records regulations: The Federal rules restrict any use of the information to criminally investigate or prosecute any alcohol or drug abuse patient.[facility] the event this information is protected by the Federal Confidentiality of Alcohol and Drug Abuse Patient Records regulations: The Federal rules restrict any use of the information to criminally investigate or prosecute any alcohol or drug abuse patient.[facility] Center[facility] the event this information is protected by the Federal Confidentiality of Alcohol and Drug Abuse Patient Records regulations: The Federal rules restrict any use of the information to criminally investigate or prosecute any alcohol or drug abuse patient.[facility] Center[facility] the event this information is protected by the Federal Confidentiality of Alcohol and Drug Abuse Patient Records regulations: The Federal rules restrict any use of the information to criminally investigate or prosecute any alcohol or drug abuse patient.[facility] Center[facility] the event this information is protected by the Federal Confidentiality of Alcohol and Drug Abuse Patient Records regulations: The Federal rules restrict any use of the information to criminally investigate or prosecute any alcohol or drug abuse patient.[facility] Center[facility] the event this information is protected by the Federal Confidentiality of Alcohol and Drug Abuse Patient Records regulations: The Federal rules restrict any use of the information to criminally investigate or prosecute any alcohol or drug abuse patient.[facility] Center[facility] the event this information is protected by the Federal Confidentiality of Alcohol and Drug Abuse Patient Records regulations: The Federal rules restrict any use of the information to criminally investigate or prosecute any alcohol or drug abuse patient.[facility] CenterIn the event this information is protected by the Federal Confidentiality of Alcohol and Drug Abuse Patient Records regulations: The Federal rules restrict any use of the information to criminally investigate or prosecute any alcohol or drug abuse patient.[facility] CenterIn the event this information is protected by the Federal Confidentiality of Alcohol and Drug Abuse Patient Records regulations: The Federal rules restrict any use of the information to criminally investigate or prosecute any alcohol or drug abuse patient.[facility] CenterIn the event this information is protected by the Federal Confidentiality of Alcohol and Drug Abuse Patient Records regulations: The Federal rules restrict any use of the information to criminally investigate or prosecute any alcohol or drug abuse patient.[facility] CenterIn the event this information is protected by the Federal Confidentiality of Alcohol and Drug Abuse Patient Records regulations: The Federal rules restrict any use of the information to criminally investigate or prosecute any alcohol or drug abuse patient.[facility] CenterIn the event this information is protected by the Federal Confidentiality of Alcohol and Drug Abuse Patient Records regulations: The Federal rules restrict any use of the information to criminally investigate or prosecute any alcohol or drug abuse patient.[facility] CenterIn the event this information is protected by the Federal Confidentiality of Alcohol and Drug Abuse Patient Records regulations: The Federal rules restrict any use of the information to criminally investigate or prosecute any alcohol or drug abuse patient.[facility] CenterIn the event this information is protected by the Federal Confidentiality of Alcohol and Drug Abuse Patient Records regulations: The Federal rules restrict any use of the information to criminally investigate or prosecute any alcohol or drug abuse patient.[facility] CenterIn the event this information is protected by the Federal Confidentiality of Alcohol and Drug Abuse Patient Records regulations: The Federal rules restrict any use of the information to criminally investigate or prosecute any alcohol or drug abuse patient.[facility] CenterIn the event this information is protected by the Federal Confidentiality of Alcohol and Drug Abuse Patient Records regulations: The Federal rules restrict any use of the information to criminally investigate or prosecute any alcohol or drug abuse patient.[facility] CenterIn the event this information is protected by the Federal Confidentiality of Alcohol and Drug Abuse Patient Records regulations: The Federal rules restrict any use of the information to criminally investigate or prosecute any alcohol or drug abuse patient.[facility] CenterIn the event this information is protected by the Federal Confidentiality of Alcohol and Drug Abuse Patient Records regulations: The Federal rules restrict any use of the information to criminally investigate or prosecute any alcohol or drug abuse patient.[facility] CenterIn the event this information is protected by the Federal Confidentiality of Alcohol and Drug Abuse Patient Records regulations: The Federal rules restrict any use of the information to criminally investigate or prosecute any alcohol or drug abuse patient.[facility] CenterIn the event this information is protected by the Federal Confidentiality of Alcohol and Drug Abuse Patient Records regulations: The Federal rules restrict any use of the information to criminally investigate or prosecute any alcohol or drug abuse patient.[facility] CenterIn the event this information is protected by the Federal Confidentiality of Alcohol and Drug Abuse Patient Records regulations: The Federal rules restrict any use of the information to criminally investigate or prosecute any alcohol or drug abuse patient.[facility] CenterIn the event this information is protected by the Federal Confidentiality of Alcohol and Drug Abuse Patient Records regulations: The Federal rules restrict any use of the information to criminally investigate or prosecute any alcohol or drug abuse patient.[facility] CenterIn the event this information is protected by the Federal Confidentiality of Alcohol and Drug Abuse Patient Records regulations: The Federal rules restrict any use of the information to criminally investigate or prosecute any alcohol or drug abuse patient.[facility] CenterIn the event this information is protected by the Federal Confidentiality of Alcohol and Drug Abuse Patient Records regulations: The Federal rules restrict any use of the information to criminally investigate or prosecute any alcohol or drug abuse patient.[facility] CenterIn the event this information is protected by the Federal Confidentiality of Alcohol and Drug Abuse Patient Records regulations: The Federal rules restrict any use of the information to criminally investigate or prosecute any alcohol or drug abuse patient.[facility] CenterIn the event this information is protected by the Federal Confidentiality of Alcohol and Drug Abuse Patient Records regulations: The Federal rules restrict any use of the information to criminally investigate or prosecute any alcohol or drug abuse patient.[facility] CenterIn the event this information is protected by the Federal Confidentiality of Alcohol and Drug Abuse Patient Records regulations: The Federal rules restrict any use of the information to criminally investigate or prosecute any alcohol or drug abuse patient.[facility] CenterIn the event this information is protected by the Federal Confidentiality of Alcohol and Drug Abuse Patient Records regulations: The Federal rules restrict any use of the information to criminally investigate or prosecute any alcohol or drug abuse patient.[facility] CenterIn the event this information is protected by the Federal Confidentiality of Alcohol and Drug Abuse Patient Records regulations: The Federal rules restrict any use of the information to criminally investigate or prosecute any alcohol or drug abuse patient.[facility] CenterIn the event this information is protected by the Federal Confidentiality of Alcohol and Drug Abuse Patient Records regulations: The Federal rules restrict any use of the information to criminally investigate or prosecute any alcohol or drug abuse patient.[facility] CenterIn the event this information is protected by the Federal Confidentiality of Alcohol and Drug Abuse Patient Records regulations: The Federal rules restrict any use of the information to criminally investigate or prosecute any alcohol or drug abuse patient.[facility] CenterIn the event this information is protected by the Federal Confidentiality of Alcohol and Drug Abuse Patient Records regulations: The Federal rules restrict any use of the information to criminally investigate or prosecute any alcohol or drug abuse patient.[facility] CenterIn the event this information is protected by the Federal Confidentiality of Alcohol and Drug Abuse Patient Records regulations: The Federal rules restrict any use of the information to criminally investigate or prosecute any alcohol or drug abuse patient.[facility] CenterIn the event this information is protected by the Federal Confidentiality of Alcohol and Drug Abuse Patient Records regulations: The Federal rules restrict any use of the information to criminally investigate or prosecute any alcohol or drug abuse patient.[facility] CenterIn the event this information is protected by the Federal Confidentiality of Alcohol and Drug Abuse Patient Records regulations: The Federal rules restrict any use of the information to criminally investigate or prosecute any alcohol or drug abuse patient.[facility] CenterIn the event this information is protected by the Federal Confidentiality of Alcohol and Drug Abuse Patient Records regulations: The Federal rules restrict any use of the information to criminally investigate or prosecute any alcohol or drug abuse patient.[facility] CenterIn the event this information is protected by the Federal Confidentiality of Alcohol and Drug Abuse Patient Records regulations: The Federal rules restrict any use of the information to criminally investigate or prosecute any alcohol or drug abuse patient.[facility] CenterIn the event this information is protected by the Federal Confidentiality of Alcohol and Drug Abuse Patient Records regulations: The Federal rules restrict any use of the information to criminally investigate or prosecute any alcohol or drug abuse patient.[facility] CenterIn the event this information is protected by the Federal Confidentiality of Alcohol and Drug Abuse Patient Records regulations: The Federal rules restrict any use of the information to criminally investigate or prosecute any alcohol or drug abuse patient.[facility] CenterIn the event this information is protected by the Federal Confidentiality of Alcohol and Drug Abuse Patient Records regulations: The Federal rules restrict any use of the information to criminally investigate or prosecute any alcohol or drug abuse patient.[facility] CenterIn the event this information is protected by the Federal Confidentiality of Alcohol and Drug Abuse Patient Records regulations: The Federal rules restrict any use of the information to criminally investigate or prosecute any alcohol or drug abuse patient.[facility] CenterIn the event this information is protected by the Federal Confidentiality of Alcohol and Drug Abuse Patient Records regulations: The Federal rules restrict any use of the information to criminally investigate or prosecute any alcohol or drug abuse patient.[facility] CenterIn the event this information is protected by the Federal Confidentiality of Alcohol and Drug Abuse Patient Records regulations: The Federal rules restrict any use of the information to criminally investigate or prosecute any alcohol or drug abuse patient.[facility] CenterIn the event this information is protected by the Federal Confidentiality of Alcohol and Drug Abuse Patient Records regulations: The Federal rules restrict any use of the information to criminally investigate or prosecute any alcohol or drug abuse patient.[facility] CenterIn the event this information is protected by the Federal Confidentiality of Alcohol and Drug Abuse Patient Records regulations: The Federal rules restrict any use of the information to criminally investigate or prosecute any alcohol or drug abuse patient.[facility] the event this information is protected by the Federal Confidentiality of Alcohol and Drug Abuse Patient Records regulations: The Federal rules restrict any use of the information to criminally investigate or prosecute any alcohol or drug abuse patient.[facility] CenterIn the event this information is protected by the Federal Confidentiality of Alcohol and Drug Abuse Patient Records regulations: The Federal rules restrict any use of the information to criminally investigate or prosecute any alcohol or drug abuse patient.[facility] CenterIn the event this information is protected by the Federal Confidentiality of Alcohol and Drug Abuse Patient Records regulations: The Federal rules restrict any use of the information to criminally investigate or prosecute any alcohol or drug abuse patient.[facility] CenterIn the event this information is protected by the Federal Confidentiality of Alcohol and Drug Abuse Patient Records regulations: The Federal rules restrict any use of the information to criminally investigate or prosecute any alcohol or drug abuse patient.[facility] CenterIn the event this information is protected by the Federal Confidentiality of Alcohol and Drug Abuse Patient Records regulations: The Federal rules restrict any use of the information to criminally investigate or prosecute any alcohol or drug abuse patient.[facility] CenterIn the event this information is protected by the Federal Confidentiality of Alcohol and Drug Abuse Patient Records regulations: The Federal rules restrict any use of the information to criminally investigate or prosecute any alcohol or drug abuse patient.[facility] CenterIn the event this information is protected by the Federal Confidentiality of Alcohol and Drug Abuse Patient Records regulations: The Federal rules restrict any use of the information to criminally investigate or prosecute any alcohol or drug abuse patient.[facility] CenterIn the event this information is protected by the Federal Confidentiality of Alcohol and Drug Abuse Patient Records regulations: The Federal rules restrict any use of the information to criminally investigate or prosecute any alcohol or drug abuse patient.[facility] CenterIn the event this information is protected by the Federal Confidentiality of Alcohol and Drug Abuse Patient Records regulations: The Federal rules restrict any use of the information to criminally investigate or prosecute any alcohol or drug abuse patient.[facility] CenterIn the event this information is protected by the Federal Confidentiality of Alcohol and Drug Abuse Patient Records regulations: The Federal rules restrict any use of the information to criminally investigate or prosecute any alcohol or drug abuse patient.[facility] CenterIn the event this information is protected by the Federal Confidentiality of Alcohol and Drug Abuse Patient Records regulations: The Federal rules restrict any use of the information to criminally investigate or prosecute any alcohol or drug abuse patient.[facility] CenterIn the event this information is protected by the Federal Confidentiality of Alcohol and Drug Abuse Patient Records regulations: The Federal rules restrict any use of the information to criminally investigate or prosecute any alcohol or drug abuse patient.[facility] CenterIn the event this information is protected by the Federal Confidentiality of Alcohol and Drug Abuse Patient Records regulations: The Federal rules restrict any use of the information to criminally investigate or prosecute any alcohol or drug abuse patient.[facility] CenterIn the event this information is protected by the Federal Confidentiality of Alcohol and Drug Abuse Patient Records regulations: The Federal rules restrict any use of the information to criminally investigate or prosecute any alcohol or drug abuse patient.[facility] CenterIn the event this information is protected by the Federal Confidentiality of Alcohol and Drug Abuse Patient Records regulations: The Federal rules restrict any use of the information to criminally investigate or prosecute any alcohol or drug abuse patient.[facility] CenterIn the event this information is protected by the Federal Confidentiality of Alcohol and Drug Abuse Patient Records regulations: The Federal rules restrict any use of the information to criminally investigate or prosecute any alcohol or drug abuse patient.[facility] CenterIn the event this information is protected by the Federal Confidentiality of Alcohol and Drug Abuse Patient Records regulations: The Federal rules restrict any use of the information to criminally investigate or prosecute any alcohol or drug abuse patient.[facility] CenterIn the event this information is protected by the Federal Confidentiality of Alcohol and Drug Abuse Patient Records regulations: The Federal rules restrict any use of the information to criminally investigate or prosecute any alcohol or drug abuse patient.[facility] CenterIn the event this information is protected by the Federal Confidentiality of Alcohol and Drug Abuse Patient Records regulations: The Federal rules restrict any use of the information to criminally investigate or prosecute any alcohol or drug abuse patient.[facility] CenterIn the event this information is protected by the Federal Confidentiality of Alcohol and Drug Abuse Patient Records regulations: The Federal rules restrict any use of the information to criminally investigate or prosecute any alcohol or drug abuse patient.[facility] Care Teams (unrecognized sec tion and content) Band Saw Operator Cake Cutting Relationship Specialty Start Date End Date Cee Christianson MD [address] [place] [id number] PCP - General 06/24/02 Band Saw Operator Cake Cutting Relationship Specialty Start Date End Date Cee Christianson MD [address] [place] [id number] PCP - General 06/24/02 Band Saw Operator Cake Cutting Relationship Specialty Start Date End Date Cee Christianson MD [address] [place] [address] PCP - General 06/24/02 Band Saw Operator Cake Cutting Relationship Specialty Start Date End Date Cee Christianson MD [address] [place] [address] [place] [address] PCP - General 06/24/02 Band Saw Operator Cake Cutting Relationship Specialty Start Date End Date Cee Christianson MD [address] [place] [id number] PCP - General 06/24/02 Band Saw Operator Cake Cutting Relationship Specialty Start Date End Date Cee Christianson MD [address] [place] [address] PCP - General 06/24/02 Band Saw Operator Cake Cutting Relationship Specialty Start Date End Date Cee Christianson MD [address] [place] [address] PCP - General 06/24/02 Band Saw Operator Cake Cutting Relationship Specialty [place] [address] [place] [id number] PCP - General 06/24/02 Band Saw Operator Cake Cutting Relationship Specialty Start Date End Date Cee Christianson MD [address] [place] [address] PCP - General 06/24/02 Band Saw Operator Cake Cutting Relationship Specialty Start Date End Date Cee Christianson MD [address] [place] [address] PCP - General 06/24/02 Band Saw Operator Cake Cutting Relationship Specialty Start Date End Date Cee Christianson MD [address] [place] [address] PCP - General 06/24/02 Band Saw Operator Cake Cutting Relationship Specialty Start Date End Date Cee Christianson MD [address] [place] [address] PCP - General 06/24/02 Band Saw Operator Cake Cutting Relationship Specialty Start Date End Date Cee Christianson MD [address] [place] [address] PCP - General 06/24/02 Band Saw Operator Cake Cutting Relationship Specialty Start Date End Date Cee Christianson MD [address] [place] [address] PCP - General 06/24/02 Band Saw Operator Cake Cutting Relationship Specialty Start Date End Date Cee Christianson MD [address] [place] [address] PCP - General 06/24/02 Band Saw Operator Cake Cutting Relationship Specialty Start Date End Date Cee Christianson MD [address] [place] [address] PCP - General 06/24/02 Band Saw Operator Cake Cutting Relationship Specialty Start Date End Date Cee Christianson MD [address] [place] [address] PCP - General 06/24/02 Band Saw Operator Cake Cutting Relationship Specialty Start Date End Date Cee Christianson MD [address] [place] [address] PCP - General 06/24/02 Band Saw Operator Cake Cutting Relationship Specialty Start Date End Date Cee Christianson MD [address] [place] [address] PCP - General 06/24/02 Band Saw Operator Cake Cutting Relationship Specialty Start Date End Date Cee Christianson MD [address] [place] [address] PCP - General 06/24/02 Band Saw Operator Cake Cutting Relationship Specialty Start Date End Date Cee Christianson MD [address] [place] [address] PCP - General 06/24/02 Band Saw Operator Cake Cutting Relationship Specialty Start Date End Date Cee Christianson MD [address] [place] [address] PCP - General 06/24/02 Band Saw Operator Cake Cutting Relationship Specialty Start Date End Date Cee Christianson MD [address] [place] [address] PCP - General 06/24/02 Band Saw Operator Cake Cutting Relationship Specialty Start Date End Date Cee Christianson MD [address] [place] [address] PCP - General 06/24/02 Band Saw Operator Cake Cutting Relationship Specialty Start Date End Date Cee Christianson MD [address] [place] [address] PCP - General 06/24/02 Band Saw Operator Cake Cutting Relationship Specialty Start Date End Date Cee Christianson MD [address] [place] [address] PCP - General 06/24/02 Band Saw Operator Cake Cutting Relationship Specialty Start Date End Date Cee Christianson MD [address] [place] [address] PCP - General 06/24/02 Band Saw Operator Cake Cutting Relationship Specialty Start Date End Date Cee Christianson MD [address] [place] [address] PCP - General 06/24/02 Band Saw Operator Cake Cutting Relationship Specialty Start Date End Date Cee Christianson MD [address] [place] [address] PCP - General 06/24/02 Band Saw Operator Cake Cutting Relationship Specialty Start Date End Date Cee Christianson MD [address] [place] [address] PCP - General 06/24/02 Band Saw Operator Cake Cutting Relationship Specialty Start Date End Date Cee Christianson MD [address] [place] [address] PCP - General 06/24/02 Zakia Sneed, CLERICAL AIDE TEACHER.EMT P [address] [place] [address] Cigarette Inspector Internal Medicine 07/24/24 Thuy Stewart 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 [address] [place] [address] Cigarette Inspector Internal Medicine 07/24/24 Band Saw Operator Cake Cutting Relationship Specialty Start Date End Date Cee Christianson MD [address] [place] [address] PCP - General 06/24/02 Zakia Sneed, CLERICAL AIDE TEACHER.EMT P [address] [place] [address] Cigarette Inspector Internal Medicine 07/24/24 Thuy Stewart 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 [address] [place] [address] Cigarette Inspector Internal Medicine 07/24/24 Band Saw Operator Cake Cutting Relationship Specialty Start Date End Date Cee Christianson MD [address] [place] [address] PCP - General 06/24/02 Zakia Sneed, CLERICAL AIDE TEACHER.EMT P [address] [place] [address] Cigarette Inspector Internal Medicine 07/24/24 Thuy Stewart 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 [address] [place] [address] [facility] Internal Medicine 07/24/24 Band Saw Operator Cake Cutting Relationship Specialty Start Date End Date Cee Christianson MD [address] [place] [address] PCP - General 06/24/02 Zakia Sneed, CLERICAL AIDE TEACHER.EMT P [address] [place] [address] [facility] Internal Medicine 07/24/24 Thuy Stewart 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 [address] [place] [address] [facility] Internal Medicine 07/24/24 Band Saw Operator Cake Cutting Relationship Specialty Start Date End Date Cee Christianson MD [address] [place] [address] PCP - General 06/24/02 Zakia Sneed, CLERICAL AIDE TEACHER.EMT P [address] [place] [address] [facility] Internal Medicine 07/24/24 Thuy Stewart 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 [address] [place] [address] [facility] Internal Medicine 07/24/24 Band Saw Operator Cake Cutting Relationship Specialty Start Date End Date Cee Christianson MD [address] [place] [address] PCP - General 06/24/02 Zakia Sneed, CLERICAL AIDE TEACHER.EMT P [address] [facility] [place] [address] Cigarette Inspector Internal Medicine 07/24/24 Thuy Stewart APRN.TIGER MACHINE OPERATOR [address] [facility] [place] [address] Cigarette Inspector Internal Medicine 07/24/24 Band Saw Operator Cake Cutting Relationship Specialty Start Date End Date Cee Christianson MD [address] [facility] [place] [address] PCP - General 06/24/02 Zakia Sneed APRN.EMT P [address] [facility] [place] [address] Cigarette Inspector Internal Medicine 07/24/24 Thuy Stewart APRN.TIGER MACHINE OPERATOR [address] [place] [id number] Cigarette Inspector Internal Medicine 07/24/24 Band Saw Operator Cake Cutting Relationship Specialty Start Date End Date Cee Christianson MD [address] [place] [address] PCP - General 06/24/02 Zakia Sneed APRN.EMT P [address] [facility] [place] [address] Cigarette Inspector Internal Medicine 07/24/24 Thuy Stewart APRN.TIGER MACHINE OPERATOR [address] [facility] [place] [address] Cigarette Inspector Internal Medicine 07/24/24 Band Saw Operator Cake Cutting Relationship Specialty Start Date End Date Cee Christianson MD [address] [facility] [address] PCP - General 06/24/02 Zakia Sneed, CLERICAL AIDE TEACHER.EMT P [address] [place] [address] Cigarette Inspector Internal Medicine 07/24/24 Thuy Stewart 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 [address] [facility] [address] Cigarette Inspector Internal Medicine 07/24/24 Band Saw Operator Cake Cutting Relationship Specialty Start Date End Date Cee Christianson MD [address] [place] [address] PCP - General 06/24/02 Zakia Sneed, CLERICAL AIDE TEACHER.EMT P [address] [facility] [place] [address] Cigarette Inspector Internal Medicine 07/24/24 Thuy Stewart 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 [address] [place] [address] Cigarette Inspector Internal Medicine 07/24/24 Band Saw Operator Cake Cutting Relationship Specialty Start Date End Date eCe Christianson MD [address] [facility] [place] [address] PCP - General 06/24/02 Zakia Sneed, CLERICAL AIDE TEACHER.EMT P [address] [facility] [place] [address] Cigarette Inspector Internal Medicine 07/24/24 Thuy Stewart 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 [address] [facility] [place] [address] Cigarette Inspector Internal Medicine 07/24/24 Band Saw Operator Cake Cutting Relationship Specialty Start Date End Date Cee Christianson MD [address] [place] [address] PCP - General 06/24/02 Zakia Sneed, CLERICAL AIDE TEACHER.EMT P [address] [place] [address] Cigarette Inspector Internal Medicine 07/24/24 Thuy Stewart 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 [address] [place] [address] Cigarette Inspector Internal Medicine 07/24/24 Band Saw Operator Cake Cutting Relationship Specialty Start Date End Date Cee Christianson MD [address] [place] [address] PCP - General 06/24/02 Zakia Sneed, CLERICAL AIDE TEACHER.EMT P [address] [place] [address] Cigarette Inspector Internal Medicine 07/24/24 Thuy Stewart 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 [address] [place] [address] Cigarette Inspector Internal Medicine 07/24/24 Band Saw Operator Cake Cutting Relationship Specialty Start Date End Date Cee Christianson MD [address] [place] [address] PCP - General 06/24/02 Zakia Sneed, CLERICAL AIDE TEACHER.EMT P [address] [place] [address] Cigarette Inspector Internal Medicine 07/24/24 Thuy Stewart 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 [address] [facility] [address] Cigarette Inspector Internal Medicine 11/07/24 Band Saw Operator Cake Cutting Relationship Specialty Start Date End Date Cee Christianson MD [address] [facility] [place] [address] PCP - General 06/24/02 Zakia Sneed, CLERICAL AIDE TEACHER.EMT P [address] [facility] [address] Cigarette Inspector Internal Medicine 07/24/24 Thuy Stewart 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 [address] [facility] [address] Cigarette Inspector Internal Medicine 11/07/24 Band Saw Operator Cake Cutting Relationship Specialty Start Date End Date Cee Christianson MD [address] [facility] [address] PCP - General 06/24/02 Zakia Sneed, CLERICAL AIDE TEACHER.EMT P [address] [facility] [address] Cigarette Inspector Internal Medicine 07/24/24 Thuy Stewart 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 [address] [facility] [address] Cigarette Inspector Internal Medicine 07/24/24 11/03/24 Thuy Stewart 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 [address] [facility] [address] Cigarette Inspector Internal Medicine 11/07/24 Band Saw Operator Cake Cutting Relationship Specialty Start Date End Date Cee Christianson MD [address] [facility] [address] PCP - General 06/24/02 Zakia Sneed, CLERICAL AIDE TEACHER.EMT P [address] [facility] [address] Cigarette Inspector Internal Medicine 07/24/24 Thuy Stewart 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 [address] [place] [address] [facility] Internal Medicine 11/07/24 Band Saw Operator Cake Cutting Relationship Specialty Start Date End Date Cee Christianson MD [address] [place] [address] PCP - General 06/24/02 Zakia Sneed, CLERICAL AIDE TEACHER.EMT P [address] [place] [address] Cigarette Inspector Internal Medicine 07/24/24 Thuy Stewart 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 [address] [place] [address] [facility] Internal Medicine 11/07/24 Band Saw Operator Cake Cutting Relationship Specialty Start Date End Date Cee Christianson MD [address] [place] [address] PCP - General 06/24/02 Zakia Sneed, CLERICAL AIDE TEACHER.EMT P [address] [facility] [address] [facility] Internal Medicine 07/24/24 Thuy Stewart 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 [address] [place] [address] Cigarette Inspector Internal Medicine 07/24/24 11/03/24 Thuy Setwart APRN.TIGER MACHINE OPERATOR [address] [facility] [address] Cigarette Inspector Internal Medicine 11/07/24 Band Saw Operator Cake Cutting Relationship Specialty Start Date End Date Cee Christianson MD [address] [facility] [address] PCP - General 06/24/02 Zakia Sneed, CLERICAL AIDE TEACHER.EMT P [address] [facility] [place] [address] Cigarette Inspector Internal Medicine 07/24/24 Thuy Stewart 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 [address] [facility] [address] Cigarette Inspector Internal Medicine 11/07/24 Band Saw Operator Cake Cutting Relationship Specialty Start Date End Date Cee Christianson MD [address] [facility] [address] PCP - General 06/24/02 Zakia Sneed, CLERICAL AIDE TEACHER.EMT P [address] [facility] [place] [address] Cigarette Inspector Internal Medicine 07/24/24 Thuy Stewart 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 [address] [facility] [place] [address] Cigarette Inspector Internal Medicine 11/07/24 Band Saw Operator Cake Cutting Relationship Specialty Start Date End Date Cee Christianson MD [address] [facility] [place] [address] PCP - General 06/24/02 Zakia Sneed, CLERICAL AIDE TEACHER.EMT P [address] [place] [address] Cigarette Inspector Internal Medicine 07/24/24 Thuy Stewart, 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 [address] [place] [address] Cigarette Inspector Internal Medicine 11/07/24 Band Saw Operator Cake Cutting Relationship Specialty Start Date End Date Cee Christianson [address] [place] [address] PCP - General 06/22/19 Band Saw Operator Cake Cutting Relationship Specialty Start Date End Date Cee Christianson [address] [place] [address] PCP - General 06/22/19 Band Saw Operator Cake Cutting Relationship Specialty Start Date End Date Cee Christianson MD [address] [place] [address] PCP - General 06/24/02 Thuy Stewart, 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 [address] [place] [address] Cigarette Inspector Internal Medicine 11/07/24 Zakia Sneed, FELIX.EMT P [address] [place] [address] Cigarette Inspector Internal Medicine 01/03/25 Band Saw Operator Cake Cutting Relationship Specialty Start Date End Date Cee Christianson [address] [place] [address] PCP - General 06/22/19 Band Saw Operator Cake Cutting Relationship Specialty Start Date End Date Cee Christianson MD [address] [place] [address] PCP - General 06/24/02 Zakia Sneed, CLERICAL AIDE TEACHER.EMT P [address] [place] [address] [facility] Internal Medicine 07/24/24 01/02/25 Thuy Stewart, 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 [address] [place] [address] [facility] Internal Medicine 11/07/24 Zakia Sneed, CLERICAL AIDE TEACHER.EMT P [address] [place] [address] [facility] Internal Medicine 01/03/25 Band Saw Operator Cake Cutting Relationship Specialty Start Date End Date Cee Christianson MD [address] [place] [address] PCP - General 06/24/02 Zakia Sneed, CLERICAL AIDE TEACHER.EMT P [address] [place] [address] [facility] Internal Medicine 07/24/24 01/02/25 Thuy Stewart, 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 [address] [place] [address] [facility] Internal Medicine 11/07/24 Zakia Sneed, CLERICAL AIDE TEACHER.EMT P [address] [place] [address] [facility] Internal Medicine 01/03/25 Band Saw Operator Cake Cutting Relationship Specialty Start Date End Date Cee Christianson MD [address] [place], [place] [address] PCP - General 06/24/02 Thuy Stewart 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 [address] [facility] [address] Cigarette Inspector Internal Medicine 11/07/24 Zakia Sneed, CLERICAL AIDE TEACHER.EMT P [address] [facility] [address] Cigarette Inspector Internal Medicine 01/03/25 Band Saw Operator Cake Cutting Relationship Specialty Start Date End Date Cee Christianson MD [address] [facility] [place] [address] PCP - General 06/24/02 Thuy Stewart 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 [address] [facility] [place] [address] Cigarette Inspector Internal Medicine 11/07/24 Zakia Sneed, CLERICAL AIDE TEACHER.EMT P [address] [facility] [place] [address] Cigarette Inspector Internal Medicine 01/03/25 Band Saw Operator Cake Cutting Relationship Specialty Start Date End Date Cee Christianson MD [address] [facility] [place] [address] PCP - General 06/24/02 Thuy Stewart 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 [address] [facility] [place] [address] Cigarette Inspector Internal Medicine 11/07/24 Zakia Sneed, CLERICAL AIDE TEACHER.EMT P [address] [facility] [place] [address] Cigarette Inspector Internal Medicine 01/03/25 Band Saw Operator Cake Cutting Relationship Specialty Start Date End Date Cee Christianson MD [address] [place] [address] PCP - General 06/24/02 Thuy Stewart APRN.TIGER MACHINE OPERATOR [address] [place], [place] [address] Cigarette Inspector Internal Medicine 11/07/24 Zakia Sneed APRN.EMT P [address] [place], [place] [address] Cigarette Inspector Internal Medicine 01/03/25 Reason for Visit (unrecogniz ed section and content) Reason Comments PT Discharge Specialty Diagnoses / Procedures Referred By Rafael t Referred To Contact [facility] Diagnoses Gait instability Procedures PT REHAB FOLLOW UP ORDER THERAPEUTIC EXERCISES RE, EA 15 MIN. Ruma Westfall MD [address] [place] [address] Phone: tel: fax: [facility] [address] [place] [address] Referral ID Status Reason Start Date Expiration Date Visits Requested Visits Authorized [id number] Authorized PCP Requested Referral Auto-Generate d Referral [...] left knee Procedures CONSULT TO ORTHOPAEDICS OFFICE/OUTPATIENT [facility] 60 MINUTES Thuy Stewart APRN.CNP [address] [place] [address] Referral ID Status Reason Start Date Expiration Date V isits Requested Visits Authorized [id number] Closed PCP Requested Referral 12/14/2023 12/13/2024 1 [...] REAL TIME W/IMAGE COMPLETE Pradeep Blanton MD [facility] [place] [address] Phone: tel: fax: [place] [phone] Referral ID Status Reason Start Date Expiration Date V isits Requested Visits Authorized [id number] Closed Auto-Generate d Referral 09/21/2024 10/21/2025 1 1 Reason Comments Geriatric Evaluation Specialty Diagnoses / Procedures Referred By Contac t Referred To Contact Gerontology Diagnoses Memory deficit Procedures CONSULT TO GERIATRICS OFFICE/OUTPATIENT [facility] 60 MINUTES Cee Christianson MD [address] [place] [address] Phone: tel: fax: [place] [address] [place] [address] Phone: tel: fax: Referral ID Status Reason Start Date Expiration Date V isits Requested Visits Authorized [id number] Closed PCP Requested Referral 09/25/2024 09/25/2025 1 [...] COMPLEX 45 MINS Ruma Westfall MD [address] [facility] [place] [address] Phone: tel: fax: [facility] [address] [place] [address] Referral ID Status Reason Start Date Expiration Date V isits Requested Visits Authorized [id number] Closed Auto-Generate d Referral 08/16/2024 08/15/2025 1 1 Reason Comments Physical Reason Onset Date Comments Refill Request 11/10/2024 Reason Comments Follow Up Geriatric MRI follow up, w/daughter Holly Reason Comments Orders Reason Comments xrays on disc Reason Comments New Patient Needs spinal surgery Reason Onset Date Comments Population Health Navigation Outreach 01/16/2025 [facility]ann[facility] D[facility]a FOR RECORDS PERTAINING TO PATIENTS [...] BE BASED ON THE PRIMARY CLINICAL RECORDS. [facility]. provides no warranty or guarantee of the accuracy or completeness of information in this document.
[2025-02-17 22:20] VITALS: BP 133/65; PULSE 65; RESP 18; TEMP 36.2; O2SAT 98
[2025-02-17 22:25] LABS: Magnesium 1.9 mg/dL (1.5-2.2)
[2025-02-17 22:35] VITALS: BMI 33.4
[2025-02-17] MEDS: 0.9% Normal Saline (1000mL) 1,000 ML 70 ML IV (23:08)
[2025-02-17] MEDS: Lactobacillis Acidophilus 1 CAP PO (23:16)
[2025-02-17] MEDS: Doxycycline 100 MG in 0.9% Normal Saline (250mL Bag) 250 ML 250 MG IV (23:16)
[2025-02-17 23:24] LABS: Vitamin B12 409 pg/mL (180-914)
[2025-02-17 23:34] VITALS: TEMP 37.1
[2025-02-18] VITALS (9 sets, daily range): BP systolic 130–170; BP diastolic 68–82; PULSE 64–79; RESP 15–20; TEMP 36.7–37.8; O2SAT 96–100; BMI 33.3
[2025-02-18 02:02] LABS: Anion Gap 14 (5-15); BUN 14 mg/dL (4-19); BUN/Creat Ratio 16.0 RATIO (10-20); Calcium,Total 8.2 mg/dL (7.6-11.0); Carbon Dioxide 17.8 mmol/L (21.0-32.0); Chloride 94 mmol/L (98-108); Estimated Creatinine Clearance 68.68 ml/min (50-250); Glucose 94 mg/dL (70-99); Potassium 4.3 mmol/L (3.3-5.1)
[2025-02-18 02:32] LABS: Alcohol, Blood (Medical)-Serum < 10.1 mg/dL (<=10.0)
[2025-02-18 02:33] LABS: FOLATES,SERUM (FOLIC ACID) 18.40 ng/mL (4.60-34.80)
[2025-02-18 02:38] LABS: Osmolality, Serum 274 mOsm/KG (280-301)
[2025-02-18] MEDS: Budesonide Respules 0.5 MG/2 ML AMPUL.NEB. INHALATION ×2 (06:44→19:45)
[2025-02-18 07:06] LABS: Barbiturate Urine NEGATIVE (< 200 ng/mL); Benzodiazepine Urine NEGATIVE (< 200 ng/mL); PCP Urine NEGATIVE (< 25 ng/mL); THC Urine NEGATIVE (< 50 ng/mL)
[2025-02-18 07:11] LABS: Osmolality, Urine 614 mOsm/KG
--- NOTE | 2025-02-18 07:39 | PN.HOSP_ITS ---
Reason for Visit Reason for Visit: Diagnoses Elevated white blood cell count, unspecified (02/17/25) Obesity, unspecified (02/17/25) Hypo-osmolality and hyponatremia (02/17/25) Unspecified dementia, unspecified severity, without behavioral disturbance, psychotic disturbance, mood disturbance, and anxiety (02/17/25) Other chronic pain (02/17/25) Metabolic encephalopathy (02/17/25) Low back pain, unspecified (02/17/25) Fever, unspecified (02/17/25) Wedge compression fracture of T11-T12 vertebra, initial encounter for closed fracture (02/17/25) Subjective Subjective Patient is a 69-year-old lady with history of recurrent UTIs admitted with confusion. Patient was found to have abnormal urinalysis consistent with UTI admitted to regular nursing floor for further management Objective Data Objective Data Vital Signs: Vital Signs Temp Pulse Resp BP Pulse Ox O2 Del Method 98.3 F 72 18 142/68 H 96 Room Air 02/18/25 04:04 02/18/25 06:45 02/18/25 06:45 02/18/25 04:04 02/18/25 06:45 02/18/25 06:45 Oxygen Delivery Method Room Air Weight: 93.9 kg Body Mass Index (BMI) 33.3 Intake & Output: Intake and Output for Last 24 Hours 02/16/25 02/17/25 02/18/25 23:59 23:59 23:59 Intake Total 1100 / 1100 450 / 450 Balance 1100 / 1100 450 / 450 Lab / Micro Data 02/17/25 20:10 02/18/25 01:19 Labs: Laboratory Results - last 24 hr 02/17/25 18:33: Sodium 123 L, Potassium 4.5, Chloride 91 L, Carbon Dioxide 17.3 L, Anion Gap 15, BUN 15, Creatinine 0.86, Estim Creat Clear Calc 69.17, Est GFR (MDRD) Non-Af 73, BUN/Creatinine Ratio 17.3, Glucose 89, Calcium 8.4, Magnesium 1.9, Vitamin B12 409, TSH 0.535 02/17/25 20:10: WBC 12.3 H, RBC 3.78 L, Hgb 11.9 L, Hct 34.4 L, MCV 91.0, MCH 31.5, MCHC 34.6, RDW Std Deviation 45.9 H, RDW Coeff of Lian 13.8, Plt Count 162, MPV 10.0, Immature Gran % (Auto) 0.600, Neut % (Auto) 84.3 H, Lymph % (Auto) 8.4 L, [place] % (Auto) 6.4, Eos % (Auto) 0.0, Baso % (Auto) 0.3, Absolute Neuts (auto) 10.4 H, Absolute Lymphs (auto) 1.03, Nucleated RBC % 0, Lactic Acid 1.5 02/17/25 20:23: Urine Color Yellow, Urine Clarity Clear, Urine pH 6.5, Ur Specific [place] 1.015, Urine Protein 100 H, Urine Glucose (UA) Normal, Urine Ketones 50 H, Urine Occult Blood 50 H, Urine Nitrite Negative, Urine Bilirubin Negative, Urine Urobilinogen Normal, Ur Leukocyte Esterase 25 H, Urine RBC 0 SEEN, Urine WBC 0-5 SEEN, Ur Squamous Epith Cells 0 SEEN, Urine Bacteria RARE, Urine Mucus 0 SEEN, Urine Osmolality 614, Urine Opiates Screen NEGATIVE, U Buprenorphine Qual NEGATIVE, Ur Oxycodone Screen NEGATIVE, Urine Methadone Screen NEGATIVE, Urine Fentanyl Screen NEGATIVE, Ur Barbiturates Screen NEGATIVE, Ur Phencyclidine Scrn NEGATIVE, Ur Amphetamines Screen NEGATIVE, U Benzodiazepines Scrn NEGATIVE, Urine Cocaine Screen NEGATIVE, U Cannabinoids Screen NEGATIVE 02/18/25 01:19: Sodium 126 L, Potassium 4.3, Chloride 94 L, Carbon Dioxide 17.8 L, Anion Gap 14, BUN 14, Creatinine 0.88, Estim Creat Clear Calc 68.68, Est GFR (MDRD) Non-Af 70, BUN/Creatinine Ratio 16.0, Glucose 94, Serum Osmolality 274 L, Calcium 8.2, Serum Folate 18.40, Ethyl Alcohol < 10.1 Micro: Microbiology 02/17/25 23:30 Mucosa - Nasopharyngeal Respiratory Panel (PCR) - Final Radiography Diagnostic Testing: Radiology Impression Chest X-Ray 02/17/25 20:35 IMPRESSION: No acute chest findings. Reading Location: [facility]-2 Abdomen/Pelvis CT 02/17/25 21:07 IMPRESSION: Acute T11 vertebral body compression deformity with adjacent soft tissue favoring hemorrhage. Although infection could have a similar appearance, this would be much less likely. Advise correlation. Reading Location: [place] [address] Physical Exam Narrative GENERAL: Patient is delirious HEENT: Atraumatic; normocephalic EYES; Anicteric, Normal Conjunctiva NECK; supple, normal thyroid, RESPIRATORY: Diminished to auscultation CARDIOVASCULAR: Regular S1 S2, GI: soft, normoactive bowel sounds, : No Renal angle tenderness; EXTREMITIES: No edema, no clubbing, MUSCULOSKELETAL: no muscle wasting NEURO: Awake; no lateralizing signs. SKIN: No Rash PSYCH; Flat affect Assessment & Plan Assessment/Plan (1) Acute metabolic encephalopathy: PLAN: Plan Patient is a 69-year-old lady with history of recurrent UTIs admitted with confusion. Patient was found to have abnormal urinalysis consistent with UTI admitted to regular nursing floor for further management 1. Acute cystitis ? Patient presented with low-grade fever as well as urinary frequency urinalysis did demonstrate presence of leukocyte esterase. Patient started on p.o. levofloxacin admitted to regular nursing floor urine culture sent 2. Hyponatremia Secondary to hypovolemic hyponatremia. Patient started on saline with monitoring of electrolyte. Ordered urine sodium and osmolality as well as serum osmolality 3. Acute metabolic encephalopathy ? Secondary to 1 and #2 treatments as discussed above 4. Acute exacerbation of chronic back pain secondary to pathological compression fractures as a result of osteoporosis ? Patient is followed by Dr. Laurent (consult placed to him) and had recently undergone epidural steroid injection. Patient is on meloxicam and gabapentin did continue. 5. Class I obesity with BMI of 33.4 Weight loss advised 6. Hypertension ? Blood pressure controlled, home medications continued with dose adjustment as needed 7. Tobacco dependence ? Counseled on cessation, offered nicotine patch for tobacco cravings 8. Allergic rhinitis ? Patient is on montelukast with continued 9. GERD ? Patient was previously on PPI currently not on her med list 10. DVT prophylaxis ? On enoxaparin Charges/Coding Visit Charges Inpatient E&M: 34404 Subs Hosp L2
--- OUTSIDE RECORDS SUMMARY | 2025-02-18 08:59 | XMS RPT_ITS | CCD ---
Author Organization [facility] Team Providers Care Head Of Commission Department Name Role Phone Talampas, Cee Unavailable Unavailable White, Nanci Unavailable Unavailable June, Susan Unavailable Unavailable Paintsil, [place] Unavailable Unavailable Stefano Garcia Unavailable Unavailable Talampas, Cee Unavailable Unavailable Talampas, Cee Unavailable Unavailable Raisa, Mendoza Unavailable Unavailable Raisa, Mendoza Unavailable Unavailable Juanitaas Cee RUELAS Primary Care Provider Cee Christianson MD Primary Care Provider Cee Christianson MD Primary Care Provider Cee Christianson MD Primary Care Provider Sneed LARRY CAR OPERATOR.JACK MACHINE OPERATOR, Zakia Unavailable Sunitha LARRY CAR OPERATOR.OFFICE 365 CONSULTANT, Thuy Unavailable Sunitha LARRY CAR OPERATOR.OFFICE 365 CONSULTANT, Thuy Unavailable Sunitha LARRY CAR OPERATOR.OFFICE 365 CONSULTANT, Thuy Unavailable RUMA WESTFALL Referring Unavailable TALAMPAS, CEE D Primary Care Unavailable Sunitha LARRY CAR OPERATOR.OFFICE 365 CONSULTANT, Thuy Unavailable TALAMPAS, CEE D Referring Unavailable TALAMPAS, CEE D Primary Care Unavailable Talampas, Cee D Primary Care Provider Sneed LARRY CAR OPERATOR.JACK MACHINE OPERATOR, Zakia Unavailable Sneed LARRY CAR OPERATOR.JACK MACHINE OPERATOR, Zakia Unavailable PRINCE LORENZO Attending Unavailable TALAMPAS, [...] Referring Unavailable DANNY TUCKER Attending Unavailable TALAMPAS, ECE D Primary Care Unavailable JEAN KIM Referring Unavailable TALAMPAS, CEE D Primary Care Unavailable TALAMPAS, CEE D Primary Care Unavailable TALAMPAS, CEE D Referring Unavailable GANTA, RUMA Attending Unavailable TALAMPAS, CEE D Primary Care Unavailable GANTA, RUMA Referring Unavailable TALAMPAS, CEE D Primary Care Unavailable GANTA, RUMA Attending Unavailable SELF Referring Unavailable TALAMPAS, CEE D Primary Care Unavailable BLANTON, NATE Attending Unavailable TALAMPAS, CEE D Primary Care Unavailable BLANTON, NATE Referring Unavailable TALAMPAS, CEE D Primary Care Unavailable TALAMPAS, CEE D Attending Unavailable TALAMPAS, CEE D Primary Care Unavailable TALAMPAS, CEE D Referring Unavailable MATIAS ZAPATA Attending Unavailable TALAMPAS, CEE D Primary Care Unavailable THUY STEWART Referring Unavailable Talampas Dr. Cee RUELAS Primary Care Provider Dr. Ramiro Garcia MD Emergency Provider [phone] Dr. Maycol Walsh DO Admit Provider Unavail able Dr. Maycol Walsh DO Attending Provider Unav ailable Allergies Allergy Classification Reported Allergen(s) Allergy Type Date of Onset Reaction(s) Facility Cephalosporins (antibiotic) (2 sources) Cephalosporins (Antibiotic) Drug Allergy 02-28-20 19 Shortness of Breath [facility] Doxycycline (2 sources) Doxycycline Drug Allergy 02-28-20 19 Other: See Comments [facility] Work Phone: guaiFENesin / Pseudoephedrine (2 sources) guaiFENesin / Pseudoephedrine Drug Allergy 04-17-20 05 Intolerance [facility] Work Phone: [phone] NSAIDs (2 sources) nabumetone Drug Allergy 04-17-20 05 Swelling [facility] Penicillins (antibiotic) (2 sources) Penicillins Drug Allergy 04-17-20 05 Anaphylaxis, Shortness of Breath [facility] Work Phone: [phone] Quinolones (antibiotic) (2 sources) levoFLOXacin Drug Allergy 04-17-20 05 Other: See Comments [facility] Work Phone: (12 sources) Penicillins; Translations: [PENICILLINS] Drug allergy (disorder) 04-17-20 05 Anaphylaxis, Shortness of Breath [facility] (20 sources) Cephalosporins (Antibiotic); Translations: [CEPHALOSPORINS] Drug Allergy 02-28-20 19 Shortness of Breath [facility] (20 sources) Doxycycline; Translations: [DOXYCYCLINE] Drug Allergy 02-28-20 19 Other: See Comments, [facility] Work Phone: (20 sources) guaiFENesin / Pseudoephedrine; Translations: [PSEUDOEPHEDRINE-G UAIFENESIN] Drug Allergy 04-17-20 05 Intolerance, Other [facility] Work Phone: (20 sources) levoFLOXacin; Translations: [LEVOFLOXACIN] Drug Allergy 04-17-20 05 Other: See Comments [facility] Work Phone: (20 sources) nabumetone; Translations: [NABUMETONE] Drug Allergy 04-17-20 05 Swelling [facility] Work Phone: (4 sources) Penicillins Propensity to adverse reactions 04-17-20 05 Anaphylaxis, Shortness of Breath [facility] Work Phone: [phone] (20 sources) Cephalosporins (Antibiotic) Drug Allergy 02-28-20 19 Shortness of Breath [facility] (20 sources) Penicillins Propensity to adverse reactions 04-17-20 05 Anaphylaxis, Shortness of Breath [facility] Work Phone: [phone] (15 sources) Penicillins Propensity to adverse reactions 04-17-20 05 Anaphylaxis, Shortness of Breath [facility] Work Phone: (4 sources) nabumetone Drug Allergy 04-17-20 05 Swelling [facility] (4 sources) Penicillins Drug Allergy 04-17-20 05 Anaphylaxis, Shortness of breath [facility] (1 source) Penicillins Allergy to substance 02-18-20 Anaphylaxis [facility] Medications Current Medications Medication Drug Class(es) Dates Sig (Normalized) Sig (Original) [id number] 200 actuat albuterol 0.09 mg/actuat metered dose [...] oral tablet (20 sources) beta-Adrenergic Theodora Start: 07-07-2017 End: 03-29-2024 take 1 tablet by mouth once daily atenolol (TENORMIN) 25 mg tablet Indications: Essential hypertension Take 1 tablet by mouth once daily. 90 tablet 3 03/29/2024 Active Comment on above: Take 1 tablet by anali th once daily. atorvastatin 10 mg oral tablet (20 sources) HMG-CoA Reductase Inhibitor Start: 07-15-2017 End: 02-21-2024 take 1 tablet by mouth [...] Take 10 mg by mouth once daily. jetnmsuj-wwoors-tauwagtc acid (COLLAGEN 1500 PLUS C) 500 mg-800 mcg- 50 mg cap (20 sources) Start: 02-21-2024 collagen-bioti n-asco rbic acid (COLLAGEN 1500 PLUS C) 500 mg-800 mcg- 50 mg cap Take by mouth. 02/21/2024 Active Start: 02-21-2024 collagen-bioti n-ascorbic acid (COLLAGEN 1500 PLUS C) 500 mg- 800 mcg- 50 mg cap Take by mouth. 0 02/21/2024 Active IYJYMLMI-SFNORCKOUYYPWU-FHG C ORAL (20 sources) COLLAGEN-GLYCOSA MINOGLY-VIT C [...] on above: Take 1 tablet by anali three times daily as needed (cramping and [...] take 1 tablet by mouth once daily Donepezil 10 mg tablet Active 10 mg PO DAILY February 17, 2025 12:00am Start: 10-05-2024 End: 11-29-2024 take 1 tablet [...] dose nasal spray (20 sources) Corticosteroid Start: 12-30-2020 End: 12-19-2021 take 2 spray(s) by mouth once daily fluticasone (FLONASE) 50 mcg/actuation nasal spray SPRAY 2 SPRAYS INTO EACH NOSTRIL ONCE DAILY - RINSE MOUTH AFTER USE 3 Each 3 12/19/2021 Active Start: 07-17-2017 Fluticasone Pr opionate (Flovent (Sp)) 1 INHALER inhaler Active 2 NMA INHALATION TWICE A DAY as needed for Allergies July 17, 2017 1:00am Comment on above: SPRAY 2 SPRAYS INTO EACH NOSTRIL ONCE DAILY - RINSE MOUTH AFTER USE fluticasone / salmeterol (20 sources) Corticosteroid, beta2-Adrenergic Agonist Start: take 1 puff(s) by inhalation twice daily fluticasone-salmete rol (ADVAIR DISKUS) 250-50 mcg/dose inhaler Inhale 1 [...] days. 270 capsule 3 06/23/2022 12/14/2023 Discontinued Start: 07-15-2017 take 1 capsule by [facility] four times daily Gabapentin 300 MG capsule Active 300 mg PO 4 TIMES DAILY July 15, 2017 1:00am Comment on above: Take 1 capsule by [facility] three times daily for 180 days. glucosamine/chondroitin/C/Ma ng (GLUCOSAMINE-CHONDROITIN COMPLX ORAL) (20 sources) glucosamine/kofi droitin/C/ Juice (GLUCOSAMINE-CHONDROITIN COMPLX ORAL) Take by mouth once daily. Active glucosamine/kofi droitin/C/Juice (GLUCOSAMINE-CHONDROITIN COMPLX ORAL) Take by mouth. Active glucosamine/kofi droitin/C/Juice (GLUCOSAMINE-CHONDROITIN COMPLX ORAL) Take by mouth. 0 Active lisinopril 40 mg oral tablet (20 sources) Angiotensin Converting Enzyme Inhibitor Start: 02-17-2025 take 1 tablet by mouth once daily Lisinopril 40 mg tablet Active 40 mg PO DAILY February 17, 2025 12:00am Start: 12-18-2022 End: 03-03-2025 take 1 tablet by mouth once daily, [...] 90 tablet 3 12/19/2021 07/28/2022 Discontinued Start: 07-07-2017 End: 02-17-2025 take 1 tablet by mouth once daily [...] mouth once daily. 1000 mg daily Active meloxicam 7.5 mg oral tablet (1 source) Nonsteroidal Anti-inflammatory Drug Start: 02-17-2025 take 1 tablet by mouth once daily Meloxicam 7.5 mg tablet Active 7.5 mg PO DAILY February 17, 2025 12:00am methylPREDNISolone (2 sources) Corticosteroid Start: 09-11-2024 End: 09-17-2024 methylPREDNISolone (MEDROL, ALONDRA,) 4 mg Dose-Pack Follow dosing instructions, take with food. 21 tablet 09/11/2024 09/17/2024 Active montelukast 10 mg oral tablet (20 sources) Leukotriene Receptor Antagonist Start: 07-07-2017 End: 02-21-2024 take 1 tablet by mouth [...] breakfast. Active take 1 capsule by mo uth once daily at breakfast omega-3 DHA-EPA (FISH OIL) 1,200 (144-21 6) mg capsule Take 1 capsule by mouth daily with breakfast. 0 Active OTC NUTRITIONAL SUPPLEMENT (20 sources) OTC NUTRITIONAL SUPPLEMENT Take by mouth once daily. Prevagen Active OTC NUTRITIONAL SUPPLEMENT Prevagen Active OTC NUTRITIONAL SUPPLEMENT Prevagen 0 Active polyethylene glycol 3350 [id number] mg / potassium chloride 2970 mg / sodium bicarbonate 6740 mg / sodium chloride 5860 mg / sodium sulfate 03176 mg powder for oral solution (1 source) [...] on above: Take 1 capsule by mo uth once daily. Completed/Discontinued Medications Medication Drug Class(es) [...] tablet by mouth once jose g y [id number]-NWEW ORAL Take 1 tablet by mouth once daily. 0 Active Comment on above: Take 1 tablet by [facility] once daily. cholecalciferol 0.01 mg oral capsule (14 sources) Vitamin D End: take 1 capsule by mouth once daily cholecalciferol, vitamin D3, 10 mcg (400 unit) cap Take 400 Units by mouth once daily. 0 12/14/2023 Discontinued Comment on above: Take 400 Units by [facility] once daily. ciprofloxacin 500 mg oral tablet (1 source) Quinolone Antimicrobial Start: 017 End: take 1 tablet by mouth twice daily Ciprofloxacin Hcl 500 MG tablet Discontinued 500 mg PO TWICE A DAY 10 July 19, 2017 1:00am February 17, 2025 7:39pm collagen/biotin/ascorbi c acid (COLLAGEN 1500 PLUS C ORAL) (14 sources) End: collagen/biotin/asco rbic acid (COLLAGEN 1500 PLUS C ORAL) Take 1 capsule by mouth once daily. 0 12/14/2023 Discontinued collagen/biotin/ ascorbic acid (COLLAGEN 1500 PLUS C ORAL) Take 1 capsule by mouth once daily. 0 Active Comment on above: Take 1 capsule by [facility] once daily. 1 ml fentaNYL 0.05 mg/ml [...] Comment on above: Take 1 capsule by [facility] once daily. furosemide 20 mg oral tablet (1 source) Loop Diuretic Start: 7 End: 5 take 1 tablet by mouth once daily Furosemide 20 MG tablet Discontinued 20 mg PO DAILY 5 0 July 15, 2017 1:00am February 17, 2025 7:40pm 12 hr guaiFENesin 1200 mg extended release oral tablet (3 sources) Start: 2 End: 3 take 1 tablet by mouth twice daily guaiFENesin (MUCINEX) 1,200 mg Ta12 Indications: Bronchitis Take 1 tablet by mouth twice daily. 42 tablet 0 07/29/2022 12/18/2022 Discontinued Comment on above: Take 1 tablet by [facility] twice daily. 10 ml lidocaine hydrochloride 10 [...] symptoms (for red itchy or watery eyes). oxyCODONE hydrochloride 5 mg oral tablet (1 source) Opioid Agonist Start: 07-14-2017 End: 02-17-2025 take 1 tablet by mouth every six hours as needed for pain Oxycodone 5 MG tablet Discontinued 5 mg PO EVERY 6 HOURS NEEDED as needed for Mod-Severe Pain (- 30 0 July 14, 2017 1:00am February 17, 2025 7:40pm POTASSIUM-99 ORAL (14 sources) End: 12-14-2023 take [...] triamcinolone acetonide 80 mg injection (KeNALog 40) ZIKMRZR-HJLI-WATEL-OR EG-CAPRYL ORAL (14 sources) End: 12-14-19 take 1 tablet by mouth once daily PRZIJMZ-GQOI-HPNKP-O REG-CAPRYL ORAL Take 1 tablet by mouth once daily. 0 12/14/2023 Discontinued take 1 tablet by anali th once daily MDEDOAG-KXKD-DRZRQ-OREG-CAPRYL ORAL Take 1 tablet by mouth once [...] [Unspecified asthma, uncomplicated] Onset: 06-14-2006 11-16-2018 Chronic Complications of surgical procedures or medical care (2 sources) Infection following a procedure, initial encounter; Translations: [Postoperative wound infection] Onset: 10-06-2017 07-17-2017 Episodic Delirium, dementia, and amnestic and other cognitive [...] [Essential (primary) hypertension] Onset: 04-17-2005 06-24-2015 Chronic Fever of unknown origin (2 sources) Fever; Translations: [Fever, unspecified] 02-17-2025 Episodic Fluid and electrolyte disorders (2 sources) Acute hyponatremia; Translations: [Hypo-osmolality and hyponatremia] 02-17-2025 Episodic Genitourinary symptoms and ill-defined conditions (1 source) Increased frequency of urination; Translations: [Frequency of micturition] 09-11-2024 Episodic Immunizations and screening for infectious disease (2 sources) Requires varicella vaccination; Translations: [Encounter for immunization] Episodic Inflammation; infection of eye (except that caused by tuberculosis or sexually transmitteddisease) (1 source) Allergic conjunctivitis; Translations: [Acute atopic conjunctivitis, bilateral] Episodic Intestinal obstruction without hernia (20 sources) Small bowel obstruction; Translations: [Unspecified intestinal obstruction, unspecified as to partial versus complete obstruction] Onset: 07-30-2017 07-30-2017 Episodic Intracranial injury (2 sources) History of [...] current use of drug therapy; Translations: [Other jail (current) drug therapy] 09-25-2024 Episodic Other connective [...] [S/P lumbar spine operation] Onset: 12-30-2024 Episodic Residual codes; unclassified (2 sources) Disturbance of consciousness; Translations: [Transient alteration of awareness] 02-17-2025 Episodic Residual codes; unclassified (1 source) Tobacco use and exposure - finding; Translations: [Tobacco use] 07-08-2017 Episodic Screening and history of mental health and substance abuse codes (2 sources) H/O: dementia; Translations: [Personal history of other mental and behavioral disorders] 02-17-2025 Episodic Spondylosis; intervertebral disc disorders; other back problems (20 sources) Degeneration of lumbar intervertebral disc; Translations: [Other intervertebral disc degeneration, lumbar region] 06-24-2015 Chronic Spondylosis; intervertebral disc disorders; other back problems (20 sources) Stenosis of lumbar vertebral foramen; Translations: [Spinal stenosis, lumbar region without neurogenic claudication] Onset: 09-11-2024 Episodic Sprains and strains (1 source) Sprain of [...] Classification Problem Date Documented Da te Episodic/Chronic Deficiency and other anemia (20 sources) Macrocytic anemia; Translations: [Nutritional anemia, unspecified] Onset: 02-19-2023 02-19-2023 Episodic Lymphadenitis (20 sources) Lymphadenopathy; Translations: [Enlarged lymph nodes, unspecified] Onset: 05-31-2006 05-31-2006 Episodic Mood disorders (20 sources) Depressive disorder; Translations: [Other specified depressive episodes] Onset: 04-17-2005 Resolved: 01-26-2021 01-26-2021 Chronic Mycoses (20 sources) Candidal intertrigo; Translations: [Candidiasis of skin and nail] Onset: 02-19-2012 02-19-2012 Episodic Other aftercare (1 source) Other superintendent terminal (current) drug therapy; Translations: [Encounter for long-term [...] amnesia; Translations: [Memory deficit] Onset: 10-05-2024 Episodic Unclassified (2 sources) Patient encounter status 10-09-2024 Urinary tract infections (3 sources) Urinary tract infectious disease; Translations: [Urinary tract infection, site not specified] Onset: 09-22-2024 09-21-2024 Episodic Results Test Name Value Interpretation Reference Range Facility Absolute lymphocyte countOrd ered By: Ramiro Garcia on 02-17-2025 Lymphocytes Auto (Unsp spec) [#/Vol] 1.03 10*3/uL 0.83-4.51 [facility] Absolute neutrophil countOrd ered By: Ramiro aGrcia on 02-17-2025 Neutrophils (Bld) [#/Vol] 10.4 10*3/uL High 2.0-7.7 [facility] Anion gap in Serum or Plasma Ordered By: Ramiro Garcia on 02-17-2025 Anion gap [Moles/Vol] 15 mmol/L 5-15 [facility] Automated lymphocyte count a s percentage of total leukocytesOrdered By: Ramiro Garcia on 02-17-2025 Lymphocytes/100 WBC Auto (Unsp spec) 8.4 % Low 19-41 [facility] BUN/creatinine ratioOrdered By: Ramiro Garcia on 02-17-2025 Urea nitrogen/Creatinine [Mass ratio] 17.3 mg/mg 10-20 [facility] Basophil percentageOrdered B y: Ramiro Garcia on 02-17-2025 Basophils/100 WBC (Bld) 0.3 % 0-1 [facility] Bilirubin Test strip Ql (U)O rdered By: Ramiro Garcia on 02-17-2025 Bilirubin Ql (U) Negative Negative [facility] Carbon dioxide, total [Moles /volume] in Central venous bloodOrdered By: Ramiro Garcia on 02-17-2025 CO2 [Moles/Vol] 17.3 mmol/L Low 21.0-32.0 [facility] Chloride assayOrdered By: Mike Garcia on 02-17-2025 Chloride [Moles/Vol] 91 mmol/L Low 98-108 [facility] Eosinophil percentageOrdered By: Ramiro Garcia on 02-17-2025 Eosinophils/100 WBC (Bld) 0.0 % 0-5 [facility] Erythrocyte distribution wid th ratioOrdered By: Ramiro Garcia on 02-17-2025 Erythrocyte distribution width (RBC) [Ratio] 13.8 % 11.6-14.6 [facility] Erythrocyte distribution wid th standard deviationOrdered By: Ramiro Garcia on 02-17-2025 Erythrocyte distribution width (RBC) [Ratio] 45.9 fl High 35.1-43.9 [facility] Glomerular filtration rate ( GFR) estimation/1.73 sq m using serum, plasma, or whole bOrdered By: Ramiro Garcia on 02-17-2025 GFR/1.73 sq M.predicted among non-blacks MDRD (S/P/Bld) [Vol rate/Area] 73 mL/min/{1.73_m2} >60 [facility] Comment on above: mL/min/1.73m2 CKD-EP I Creatinine Equation (2020) Hematocrit Auto (Bld) [Volum e fraction]Ordered By: Ramiro Garcia on 02-17-2025 Hematocrit (Bld) [Volume fraction] 34.4 % Low 37-47 [facility] Hemoglobin measurementOrdere d By: Ramiro Garcia on 02-17-2025 Hemoglobin (Bld) [Mass/Vol] 11.9 g/dL Low 12.0-15.0 [facility] Immature granulocytes/100 WB C Auto (Bld)Ordered By: Ramiro Garcia on 02-17-2025 Immature granulocytes/100 WBC (Bld) 0.600 % 0.0-0.9 [facility] Comment on above: IG% - Immature Granu locytes (promyelocytes, myelocytes and metamyelocytes) > 1% indicates that a LEFT SHIFT is Present. Ketones Test strip Ql (U)Ord ered By: Ramiro Garcia on 02-17-2025 Ketones Ql (U) 50 mg/dl High Negative [facility] Lactic acid measurementOrder ed By: Ramiro Garcia on 02-17-2025 Lactate [Moles/Vol] 1.5 mmol/L 0.0-2.0 [facility] MCV (mean corpuscular volume ) determinationOrdered By: Ramiro Garcia on 02-17-2025 MCV (RBC) [Entitic vol] 91.0 fL 81-99 [facility] Mean corpuscular hemoglobin (MCH) determinationOrdered By: Ramiro Garcia on 02-17-2025 MCH (RBC) [Entitic mass] 31.5 pg 27.0-32.0 [facility] Mean corpuscular hemoglobin concentration (MCHC) determinationOrdered By: Ramiro Garcia on 02-17-2025 MCHC (RBC) [Mass/Vol] 34.6 g/dL 32-36 [facility] Mean platelet volume determi nationOrdered By: Ramiro Garcia on 02-17-2025 Platelet mean volume (Bld) [Entitic vol] 10.0 fL 6.2-12.0 [facility] Microscopic analysis of urin e for red blood cells (RBC)Ordered By: Ramiro Garcia on 02-17-2025 Microscopic analysis of urine for red blood cells (RBC) 0 SEEN /hpf 0-5 [facility] Monocyte percentageOrdered B y: Ramiro Garcia on 02-17-2025 Monocytes/100 WBC (Bld) 6.4 % 0-10 [facility] Mucus LM Ql (Urine sed)Order ed By: Ramiro Garcia on 02-17-2025 Mucus Ql (Urine sed) 0 SEEN /hpf [facility] Neutrophil percentageOrdered By: Ramiro Garcia on 02-17-2025 Neutrophils/100 WBC (Bld) 84.3 % High 47-70 [facility] Nitrite Test strip Ql (U)Ord ered By: Ramiro Garcia on 02-17-2025 Nitrite Ql (U) Negative Negative [facility] Nucleated red blood cell per centageOrdered By: Ramiro Garcia on 02-17-2025 Nucleated RBC/100 WBC (Bld) [Ratio] 0 % 0-5 [facility] Platelet countOrdered By: Mike Garcia on 02-17-2025 Platelets (Bld) [#/Vol] 162 10*3/uL 150-450 [facility] Potassium measurement (mass/ volume)Ordered By: Ramiro Garcia on 02-17-2025 Potassium (Unsp spec) [Mass/Vol] 4.5 mmol/L 3.3-5.1 [facility] Comment on above: Hemolysis present, R esults could be affected. Protein Test strip Ql (U)Ord ered By: Ramiro Garcia on 02-17-2025 Protein Ql (U) 100 mg/dl High Negative [facility] RBC Auto (Bld) [#/Vol]Ordere d By: Ramiro Garcia on 02-17-2025 RBC (Bld) [#/Vol] 3.78 10*6/uL Low 4.2-5.4 [facility] Serum creatinine measurement (mass/volume)Ordered By: Ramiro Garcia on 02-17-2025 Creatinine [Mass/Vol] 0.86 mg/dL 0.70-1.20 [facility] Serum glucose measurement (m ass/volume)Ordered By: Ramiro Garcia on 02-17-2025 Glucose [Mass/Vol] 89 mg/dL 70-99 [facility] Serum or plasma calcium coral urement (mass/volume)Ordered By: Ramiro Garcia on 02-17-2025 Calcium [Mass/Vol] 8.4 mg/dL 7.6-11.0 [facility] Serum or plasma urea nitroge n measurement (mass/volume)Ordered By: Ramiro Garcia on 02-17-2025 Urea nitrogen [Mass/Vol] 15 mg/dL 4-19 [facility] Sodium levelOrdered By: Ramiro Garcia on 02-17-2025 Sodium [Moles/Vol] 123 mmol/L Low 133-145 [facility] Squamous epithelial cells de tection in urine sediment by light microscopyOrdered By: Ramiro Garcia on 02-17-2025 Epithelial cells.squamous LM Ql (Urine sed) 0 SEEN /hpf 5-10 [facility] Urine clarityOrdered By: Lakhwinder Garcia on 02-17-2025 Clarity (U) Clear Clear [facility] Urine color determinationOrd ered By: Ramiro Garcia on 02-17-2025 Color (U) Yellow Yellow [facility] Urine glucose detectionOrder ed By: Ramiro Garcia on 02-17-2025 Glucose Ql (U) Normal mg/dl Normal [facility] Urine leukocyte esterase det ection by dipstickOrdered By: Ramiro Garcia on 02-17-2025 Leukocyte esterase Test strip Ql (U) 25 /ul High Negative [facility] Urine pHOrdered By: Ramiro sánchez on 02-17-2025 pH (U) 6.5 [pH] 5.0 - 8.0 [facility] Urine sediment bacteria coun t by microscopy (number/high power field)Ordered By: Ramiro Garcia on 02-17-2025 Bacteria LM.HPF (Urine sed) [#/Area] RARE /hpf None Seen [facility] Urine specific gravity measu rementOrdered By: Ramiro Garcia on 02-17-2025 Specific gravity (U) [Rel density] 1.015 1.002-1.030 [facility] Urine urobilinogen measureme ntOrdered By: Ramiro Garcia on 02-17-2025 Urobilinogen Ql (U) Normal mg/dl Normal [facility] White blood cell (WBC) count Ordered By: Ramiro Garcia on 02-17-2025 WBC (Bld) [#/Vol] 12.3 10*3/uL High 4.4-11.0 [facility] White blood cell countOrdere d By: Ramiro Garcia on 02-17-2025 White blood cell count 0-5 SEEN /hpf 0-5 [facility] CNTHERAPYon 02-12-2025 CNTHERAPY OT/PT/Speech Visit ( PTWS) -- FEILNERSUSAN ([id number]) 1955 F TXT Date Time Provider Department 02/12/25 10:45 AM [facility] PTWS Date Time Provider Department Center 02/12/2025 10:45 AM [id number], COREY PTWS Daina Palmer Reason for Visit: [...] 99 mg by mouth once daily. - YEJMGBGG-ZZQRZRUIPMNGAH-UM T C ORAL Take by mouth once [...] by mouth two times a day. - tirorggn-ihpowa-tbcptwqv acid (COLLAGEN 1500 PLUS C) 500 mg-800 [...] as needed for wheezing/shortness of breath. Normal [facility] CNTHERAPYon 02-08-2025 CNTHERAPY OT/PT/Speech Visit ( PTWS) -- SUSAN CALDERON ([id number]) 1955 F TXPasha Date Time Provider Department 02/08/25 10:45 AM [facility] PTS[facility] Date Time Provider Department Center 02/08/2025 10:45 AM [id number], COREY PTSENTHIL Palmer Reason for Visit: Physical Therapy [503] [...] 99 mg by mouth once daily. - CQCHMRWC-BZWFQKOFTINNNH-LX T C ORAL Take by mouth once [...] by mouth two times a day. - rgdlouks-fgteyn-hupqeuia acid (COLLAGEN 1500 PLUS C) 500 mg-800 [...] as needed for wheezing/shortness of breath. Normal [facility] CNTHERAPYon 02-05-2025 CNTHERAPY OT/PT/Speech Visit ( PTWS) -- SUSAN CALDERON ([id number]) 1955 F TXT Date Time Provider Department 02/05/25 9:15 AM SMITH CARO PTSENTHIL Date Time Provider Department Center 02/05/2025 9:15 AM [id number], COREY PTSENTHIL Palmer Reason for Visit: Physical Therapy [503] [...] 99 mg by mouth once daily. - IHIFCEIF-ENPVZBFXQOEDMS-BR T C ORAL Take by mouth once [...] by mouth two times a day. - xwnflbmd-zwsyyx-zzohwqlo acid (COLLAGEN 1500 PLUS C) 500 mg-800 [...] by mouth once daily. Prevagen - glucosamine/chondroitin/C/ Jucie (GLUCOSAMINE-CHONDROITIN COMPLX ORAL) Take by mouth once [...] as needed for wheezing/shortness of breath. Normal [facility] CNTHERAPYon 01-25-2025 CNTHERAPY OT/PT/Speech Visit ( PTWS) -- SUSAN CALDERON ([id number]) 1955 F TXT Date Time Provider Department 01/25/25 10:45 AM SMITH CARO PTWS Date Time Provider Department [place] 01/25/2025 10:45 AM [id number], COREY PTWS Daina Palmer Reason for Visit: [...] 99 mg by mouth once daily. - KWSQCCYN-WDGWPPLDIPFPEF-VI T C ORAL Take by mouth once [...] by mouth two times a day. - kwttitae-qensyv-mtcpovur acid (COLLAGEN 1500 PLUS C) 500 mg-800 [...] as needed for wheezing/shortness of breath. Normal [facility] CNTHERAPYon 01-10-2025 CNTHERAPY OT/PT/Speech Visit ( PTWS) -- SUSAN CALDERON ([id number]) 1955 F TXT Date Time Provider Department 01/10/25 8:00 AM CHRISTIN WALSH PTSENTHIL Date Time Provider Department Center 01/10/2025 8:00 AM [id number] WALSH Reason for Visit: Physical Therapy [503] Primary [...] 99 mg by mouth once daily. - SJGBXRCT-AMDLRGDHXGNZMH-YG T C ORAL Take by mouth once [...] by mouth two times a day. - htkjtsim-iefdps-fpsycxib acid (COLLAGEN 1500 PLUS C) 500 mg-800 [...] as needed for wheezing/shortness of breath. Normal [facility] 29on 01-09-2025 29 Addended by: JULIETA MEEKS on: 01/09/2025 09:23 AM Modules accepted: [facility] [id number] 01-05-2025 [id number] HNO ID: [id number] Author: SMITH CARO PT Service: ? Author Type: Physical Therapist Type: [id number] Filed: 01/05/2025 12:49 Note Text: [facility] Physical Therapy Plan of Care Certification Patient Name: Susan Calderon : 1955 CC #: [id number] Date: 01/04/2025 To: Prince Lorenzo From Therapist: [...] Planned: 6 Planned Treatment Interventions: Therapeutic exercise (60955), Neuromuscular re-education (17596), Manual therapy (92852), Therapeutic activities (05251), Self-halfway management (54075), Patient/Family/Caregiver Education PLAN FOR NEXT VISIT: Core strengthening in a neutral spine Patient demonstrates good understanding of plan of care and treatment. The above goals and plan of care were discussed and agreed upon by patient/family. For further details regarding this patient refer to the Physical Therapy electronically documented visit dated 01/04/2025. Provider Attestation I have reviewed the treatment plan for Susan Lucas Kvng, [facility]# [id number] for the period of 01/04/25 -- 02/08/25, established on 01/04/2025. Signature certifies the need for therapy services. Normal [facility] CNTHERAPYon 01-04-2025 CNTHERAPY OT/PT/Speech Visit ( PTWS) -- SUSAN CALDERON ([id number]) 1955 F TXT Date Time Provider Department 01/04/25 9:15 AM SMITH CARO PTSENTHIL Date Time Provider Department [place] 01/04/2025 9:15 AM [id number], COREY PTWS Daina Palmer Reason for Visit: [...] 99 mg by mouth once daily. - GFDXZQAK-HXZMABVMVBMTGZ-AW T C ORAL Take by mouth once [...] by mouth two times a day. - ydqgrana-nwqbdi-hoctxovf acid (COLLAGEN 1500 PLUS C) 500 mg-800 [...] for wheezing/shortness of breath. Letter Text Normal [facility] 36on 01-03-2025 36 Name of caller: Arin lucas Contact phone number: [phone] Relationship to Patient: patient Provider: Dr. Lorenzo Practice: neuro Chief Complaint/Reason for Call: Pt states she was informed by the pain mgt office of [facility] that the referral has not been received. Please advise. Best time of day caller can be reached: any Patient advised that office/PCP has 24-48 business hours to return their call: N/A Normal [facility] 36on 01-02-2025 36 We wanted to inform you that your patient's blood pressure was noted to be elevated in our specialty office today. We thank you for trusting us with your patient's health. BP Readings from Last 1 Encounters: 01/02/25 (!) 142/84 [facility] Office Visiton 01-02-2025 Follow-up visit [id number] Justice Calderon 1955 F Date Provider Department Center 01/02/2025 [id number] LORENZO [facility] NROSURG None Family History Problem Relation Age of Onset Stroke Mother Comments: aneurysm Lung cancer Father Family Status - Relation Status Age at Mother Father Brother Alive Level of Service:48318 NE OFFICE/OUTPATIENT NEW MODERATE MDM 45 MINUTES Reason for Visit and Comments: New Patient [542] - Needs spinal surgery Normal [facility] Progress Noteon 01-02-2025 Progress Note NEUROSURGERY CONSULT [...] has magdy (more content not included)... Normal [facility] MR Lumbar spine WO contrasto n 12-30-2024 IMPRESSION: 1. Degenerative and postsurgical changes of the lumbar spine as discussed level by level in the body of the report. No severe spinal canal stenosis. 2. Acute to subacute compression deformity of T11 with approximately 50% height loss and minimal retropulsion of the superior endplate contributing to mild spinal canal narrowing. Anatomic Lumbar Variant: Equipment Installer: PSCB Transcribe Date/Time: Dec 30 2024 9:36A Dictated by : GIFTY VAZQUEZ MD This examination was interpreted and the report reviewed and electronically signed by: GIFTY VAZQUEZ MD on Dec 30 2024 9:42AM [facility] RADIOLOGY SYNGO * * *Final Report* * [...] and iliac wings are within normal limits. [facility] RADIOLOG[facility] SYNGO [facility] - 12/30/2024 * * *Final Report* * [...] mild spinal canal narrowing. Anatomic Lumbar Variant: Equipment Installer: PSCB Transcribe Date/Time: Dec 30 2024 9:36A Dictated by : GIFTY VAZQUEZ MD This examination was interpreted and the report reviewed and electronically signed by: GIFTY VAZQUEZ MD on Dec 30 2024 9:42AM EST [facility] Radiology Study observation (narrative) [facility] MR Lumbar spine WO contrastO rdered By: Ccf Provider on 12-30-2024 [facility] MRI LUMBAR SPINE WO IVCONon 12-30-2024 [...] mild spinal canal narrowing. Anatomic Lumbar Variant: Equipment Installer: APRYL Transcribe Date/Time: Dec 30 2024 9:36A Dictated by : GIFTY VAZQUEZ MD This examination was interpreted and the report reviewed and electronically signed by: GIFTY VAZQUEZ MD on Dec 30 2024 9:42AM EST [id number] Normal [facility] CNPNon 12-27-2024 CNPN Telephone (INTMWS) -- SUSAN CALDERON ([id number]) 1955 F TXT Date Time Provider Department 12/27/24 CEE CHRISTIANSON INTMWS During your visit today, we recorded the following information about you: Lucille Ji LPN 12/27/2024 2:53 PM Signed Patient calling asking to have Lumbar xrays that were done 09/11/2024 put on a disc please. Patient has appt on 01/[address] Lorenzo. Advised patient to bean picker disc on Wednesday at [facility] Radiology desk. If any problem please call patient. 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 RADIOLOGY Allergies As [...] 99 mg by mouth once daily. - GTIFPOAT-ULETFMHVBFGQMZ-QZ T C ORAL Take by mouth once [...] by mouth two times a day. - kbxxbsjq-kytmbn-ozqnwroy acid (COLLAGEN 1500 PLUS C) 500 mg-800 [...] Encounter Status:Closed by LUCILLE JI on 01/01/25 [facility] Radu 12-25-2024 ESTEFANY Telephone (INTWS) -- SUSAN CALDERON ([id number]) 1955 F TXT Date Time Provider Department 12/25/24 CEE CHRISTIANSON INTMWS During your visit today, we recorded the following information about you: Amy Alex 12/25/2024 3:09 PM Signed Patient presented at front office agent asking for orders for MRI of the [...] is. Will return call once answered. Azalia Kingston, RN 12/27/2024 2:47 PM Signed Patient calls [...] or when it would be approved. Azalia Kingston, Cee Davis MD 12/27/2024 2:57 PM Signed Filed lumbar [...] without sciatica [M54.50] Order(s):MRI LUMBAR SPINE WO IVCON [7111184] Order #: [id number] FUTURE Prescriptions as of 12/29/2024 - donepezil [...] 99 mg by mouth once daily. - IBGLMDEM-IKOFAKMOOLKRND-MN T C ORAL Take by mouth once [...] two times (more content not included)... Normal [facility] 36on 12-22-2024 36 Called and left a me ssage on patients daughter phone because the number in our records for the patient has been disconnected. Called to ask patient to obtain a disc from [facility] of her images. Will sent a request to [facility] CNTHERAPYon 11-30-2024 CNTHERAPY OT/PT/Speech Visit ( PTWS) -- SUSAN CALDERON ([id number]) 1955 F TXT Date Time Provider Department 11/30/24 3:00 PM DANNY TUCKER PTWS Date Time Provider Department Center 11/30/2024 3:00 PM [id number], COLIN PTWS Daina Palmer Reason for Visit: [...] 99 mg by mouth once daily. - ZGXODZJL-DAYIPKOEQNRSXF-HL T C ORAL Take by mouth once [...] by mouth two times a day. - zcudgucb-vookij-ltlcgzfs acid (COLLAGEN 1500 PLUS C) 500 mg-800 [...] hours as needed for wheezing/shortness of breath. Pool Technician: Therapy (PT/OT/Speech/Resp) ID: [id number] 11/30/2024 3:30 PM Author: DANNY TUCKER Signed by DANNY TUCKER PT on 11/30/2024 at 3:30 PM Document text: Program_ID:[id number] Access Code: [email or web address] URL: [email or web address] Date: 11-30-2024 Prepared By: Danny Tucker Program [...] - 2 sets - 10 reps Normal [facility] THERAPY NTon 11-30-2024 THERAPY NT HNO ID: [id number] Author: DANNY TUCKER PT Service: ? Author Type: Physical Therapist Type: Therapy (PT/OT/Speech/Resp) Filed: 11/30/2024 15:30 Note Text: Program_ID:[id number] Access Code: [email or web address] URL: [email or web address] Date: 11-30-2024 Prepared By: Danny Tucker Program [...] - 2 sets - 10 reps Normal [facility] CNOVon 11-29-2024 CNOV Office Visit (KEATON ) -- SUSAN CALDERON ([id number]) 1955 F TXT Date Time Provider Department [...] then, please send me a message through [facility] or call the office. - Continue monitoring [...] 2023 Practi (more content not included)... Normal [facility] MR Brain WO contraston 11-07 * * *Final Report* * * DATE OF EXAM: Nov 07 2024 1:34PM [facility] 3015 - MRI BRAIN W QUANT [...] dementia protocol and 3-D post-processing using the Heliatek software at an independent workstation with concurrent [...] to 1.7; Gelacio 2008; also David 2010). [facility] RADIOLOGY Provider, [facility] G[facility]ier - 11/07/2024 * * *Final Report* * * DATE OF EXAM: Nov 07 2024 1:34PM [facility] 3015 - MRI BRAIN W QUANT [...] dementia protocol and 3-D post-processing using the BridestoryQuant software at an independent workstation with concurrent [...] = Focal Lesions 2 = Beginning of [place] 3 = Diffuse Involvement of Entire Region [...] the analysis c (more content not included)... [facility] MR Unspecified body region 3 D post processingon 11-07-2024 * * *Final Report* * * DATE OF EXAM: Nov 07 2024 1:34PM [facility] 7867 - MRI 3D BRAIN QUANT / PROCEDURE REASON: Cognitive impairment, mild, so stated * * * * Physician Interpretation * * * * EXAMINATION: MRI BRAIN W QUANT WO IVCON, MRI 3D BRAIN QUANT CLINICAL HISTORY: Cognitive impairment TECHNIQUE: Axial NUVIA FLAIR, NUVIA T2, diffusion and susceptibility weighted imaging without contrast, using the ADNI dementia protocol and 3-D post-processing using the Heliatek software at an independent workstation with concurrent [...] to 1.7; Gelacio 2008; also David 2010). [facility] RADIOLOGY Provider, [facility] - 11/07/2024 * * *Final Report* * * DATE OF EXAM: Nov 07 2024 1:34PM [facility] 7867 - MRI 3D BRAIN QUANT / PROCEDURE REASON: Cognitive impairment, mild, so stated * * * * Physician Interpretation * * * * EXAMINATION: MRI BRAIN W QUANT WO IVCON, MRI 3D BRAIN QUANT CLINICAL HISTORY: Cognitive impairment TECHNIQUE: Axial NUVIA FLAIR, NUVIA T2, diffusion and susceptibility weighted imaging without contrast, using the ADNI dementia protocol and 3-D post-processing using the Heliatek software at an independent workstation with concurrent [...] = Focal Lesions 2 = Beginning of [place] 3 = Diffuse Involvement of Entire Region [...] analysis charts fo (more content not included)... [facility] MRI 3D BRAIN QUANTon 11-07- 025 MRI 3D BRAIN QUANT * * *Final Report* * * DATE OF EXAM: Nov 07 2024 1:34PM [facility] 7867 - MRI 3D BRAIN QUANT / PROCEDURE REASON: Cognitive impairment, mild, so stated * * * * Physician Interpretation * * * * EXAMINATION: MRI BRAIN W QUANT WO IVCON, MRI 3D BRAIN QUANT CLINICAL HISTORY: Cognitive impairment TECHNIQUE: Axial NUVIA FLAIR, NUVIA T2, diffusion and susceptibility weighted imaging without contrast, using the ADNI dementia protocol and 3-D post-processing using the Heliatek software at an independent workstation with concurrent [...] = Focal Lesions 2 = Beginning of [place] 3 = Diffuse Involvement of Entire Region [...] results from the analysis charts for details. Equipment Installer: PSCB Transcribe Date/Time: Nov 07 2024 1:37P Dictated by : LUIS MARTINEZ MD This examination was interpreted and the report reviewed and (more content not included)... Normal [facility] MRI BRAIN W QUANT WO IVCONon 11-07-2024 MRI BRAIN W QUANT WO IVCON * * *Final Report* * * DATE OF EXAM: Nov 07 2024 1:34PM [facility] 3015 - MRI BRAIN W QUANT [...] dementia protocol and 3-D post-processing using the Heliatek software at an independent workstation with concurrent [...] = Focal Lesions 2 = Beginning of [place] 3 = Diffuse Involvement of Entire Region [...] results from the analysis charts for details. Equipment Installer: APRYL Transcribe Date/Time: Nov 07 2024 1:37P Dictated by : LUIS MARTINEZ MD This examination was interpreted and the report reviewe (more content not included)... Normal [facility] No Panel Informationon 11-07 IMPRESSION: * [...] = Focal Lesions 2 = Beginning of [place] 3 = Diffuse Involvement of Entire Region [...] results from the analysis charts for details. Equipment Installer: PSCB Transcribe Date/Time: Nov 07 2024 1:37P Dictated by : LUIS MARTINEZ MD This examination was interpreted and the report reviewed and electronically signed by: LUIS MARTINEZ MD on Nov 07 2024 2:06PM [facility] RADIOLOGY Radiology Study observation (narrative) [facility] No Panel InformationOrdered By: Ccf Provider on 11-07-2024 [facility] [id number] 11-01-2024 [id number] HNO ID: [id number] Author: DANNY TUCKER PT Service: ? Author Type: Physical Therapist Type: [id number] Filed: 11/01/2024 13:07 Note Text: [facility] Physical Therapy Plan of Care Certification Patient Name: Susan Calderon : 1955 [facility] #: [id number] Date: 11/01/2024 To: Ruma Westfall MD From [...] increase T-score by a minimum 5 points. [place] in home exercise program. Patient will decrease [...] Planned: 4 Planned Treatment Interventions: Therapeutic exercise (09876), Neuromuscular re-education (88689), Manual therapy (11204), Therapeutic activities (04937), Self-halfway management (68986), Gait Training (68785), Body Mechanics Training, Patient/Family/Caregiver Education PLAN FOR [...] the treatment plan for Susan Lance Calderon, [facility]# [id number] for the period of 11/01/24 -- 12/08/24, established on 11/01/2024. Signature certifies the need for therapy services. Normal [facility] CNTHERAPYon 11-01-2024 CNTHERAPY OT/PT/Speech Visit ( PTWS) -- SUSAN CALDERON ([id number]) 1955 F TXT Date Time Provider Department 11/01/24 8:30 AM DANNY TUCKER PTWS Date Time Provider Department Center 11/01/2024 8:30 AM [id number], COLIN PTWS [place] Reason for Visit: PT Eval [747] Primary [...] 99 mg by mouth once daily. - MIEZMYKS-EHJNFNMQRXYUBE-QF T C ORAL Take by mouth once [...] by mouth two times a day. - roopftaj-weerle-qmhyflxc acid (COLLAGEN 1500 PLUS C) 500 mg-800 [...] hours as needed for wheezing/shortness of breath. Pool Technician: Addendum Therapy (PT/OT/Speech/Resp) ID: [id number] 11/01/2024 9:09 AM Author: DANNY TUCKER Signed by DANNY TUCKER PT on 11/01/2024 at 9:09 AM * * * This document replaces document [id number] * * * Document text: Program_ID:[id number] Access Code: [email or web address] URL: [email or web address] Date: 11-01-2024 Prepared By: Danny Tucker Program [...] - 2 sets - 8-12 reps Normal [facility] THERAPY NTon 11-01-2024 THERAPY NT HNO ID: [id number] Author: DANNY TUCKER, PT Service: ? Author Type: Physical Therapist Type: Therapy (PT/OT/Speech/Resp) Filed: 11/01/2024 09:09 Note Text: Program_ID:[id number] Access Code: [email or web address] URL: [email or web address] Date: 11-01-2024 Prepared By: Danny Tucker Program [...] - 2 sets - 8-12 reps Normal [facility] NAVI SCREENINGon 10-09-2024 NAVI SCREENING * * *Final Report* * * DATE OF EXAM: Oct 09 2024 11:33AM [facility] 0581 - [facility]I SCREENING / PROCEDURE REASON: Encounter for screening mammogram for breast cancer * * * * Physician Interpretation * * * * RESULT: [place] [address] #[id number] - NAVI SCREENING HISTORY: 69 year-old patient [...] Nellie Pickett M.D. Electronically signed on: 10/09/2024 Equipment Installer: JESSIE Transcribe Date/Time: Oct 09 2024 11:12A Dictated by: NELLIE PICKETT MD This examination was interpreted and the report reviewed and electronically signed by: NELLIE PICKETT MD on Oct 09 2024 2:10PM EST [id number] Normal [facility] Breast Screeningon 2024 IMPRESSION: There [...] Nellie Pickett M.D. Electronically signed on: 10/09/2024 Equipment Installer: JESSIE Transcridilshad Date/Time: Oct 09 2024 11:12A Dictated by: NELLIE PICKETT MD This examination was interpreted and the report reviewed and electronically signed by: ENLLIE PICKETT MD on Oct 09 2024 2:10PM [facility] DIVISION OF RADIOLOGY * * *Final Report* * * DATE OF EXAM: Oct 09 2024 11:33AM [facility] 0581 - [facility] SCREENING / PROCEDURE REASON: Encounter for screening mammogram for breast cancer * * * * Physician Interpretation * * * * RESULT: [place] [address] #[id number] - [facility] SCREENING HISTORY: 69 year-old patient seen [...] significant interval changes. DIVISION OF RADIOLOGY Provider, [facility] - 10/09/2024 * * *Final Report* * * DATE OF EXAM: Oct 09 2024 11:33AM [facility] 0581 - [facility] SCREENING / PROCEDURE REASON: Encounter for screening mammogram for breast cancer * * * * Physician Interpretation * * * * RESULT: [place] [address] #[id number] - NAVI SCREENING HISTORY: 69 year-old patient [...] Nellie Pickett M.D. Electronically signed on: 10/09/2024 Equipment Installer: JESSIE Transcribe Date/Time: Oct 09 2024 11:12A Dictated by: NELLIE PICKETT MD This examination was interpreted and the report reviewed and electronically signed by: NELLIE PICKETT MD on Oct 09 2024 2:10PM EST [facility] Radiology Study observation (narrative) [facility] MG Breast ScreeningOrdered B y: Ccf Provider on 10-09-2024 [facility] CNOVon 10-05-2024 CNOV Office Visit (GERIWR ) -- SUSAN CALDERON ([id number]) 1955 F TXT Date Time Provider Department 10/05/24 9:30 AM RUMA WESTFALL During your visit today, we recorded the following information about you: Pulse Blood pressure Weight Height 65/minute 138/76 98.3 kg 1.62 m Ruma Westfall MD 10/05/2024 5:54 PM Signed [facility] Initial Consult Susan [...] secure location? No Social History: Primary language: Finnish Marital Status: Living situation: Home w/ Family, family lives with her for over a year now. Socially engaged? (participates in activities such as clubs, adventism, community center, sports, games, visiting friends/relatives, etc?): He he she has always been a stay at home person.except for daughter and son being with her or visiting. She does not socialize. Most of her friends . Caregiver Fletcher and Stress Are your feeling overwhelmed? NO [...] lumbar surg (more content not included)... Normal [facility] CNPNon 10-05-2024 CNPN Telephone (INTMWS) -- SUSAN CALDERON ([id number]) 1955 F TXT Date Time Provider Department 10/05/24 RUMA WESTFALL INTMWS During your visit today, we recorded the following information about you: Shimon Choudhury, RN 10/05/2024 9:02 AM Signed Patient phoned to report she is scheduled with Dr. Westfall at 9:30 today. Her daughter is driving from [facility] and the roads are bad- running late. [...] 99 mg by mouth once daily. - BWNNAFXB-TUYUZSEEOUVQFS-DR T C ORAL Take by mouth once [...] by mouth two times a day. - ydmrdlqw-snwxfm-foiilflu acid (COLLAGEN 1500 PLUS C) 500 mg-800 [...] Status:Closed by Shimon CHOUDHURY on 10/13/24 Normal [facility] Panel Informationon 10-05 Interpretation and review of laboratory results Normal [facility] T4 FREE/FREE THYROXINEon Free T4 [Mass/Vol] 1.1 ng/dL 0.9 - 1.7 ng/dL [facility] T4 Free SerPl-mCncon 025 Free T4 [Mass/Vol] 1.1 ng/dL Normal 0.9-1.7 [facility] Comment on above: Order Comment: Speci men Type: BLOOD SPECIMENOrdering Facility: [facility] Address: [address] [place] [address] Performed By: #### 3 016-3, 2132-04, 3024-02 ####[facility] LABCLIA [id number] [place] [address] [place] THYROID STIMULATING HORMONEo n 10-05-2024 TSH Qn 1.43 m[IU]/L [facility] TSH SerPl-aCncon 10-05-2024 TSH Qn 1.430 m[IU]/L Normal 0.270-4.200 [facility] Comment on above: Order Comment: Speci men Type: BLOOD SPECIMENOrdering Facility: [facility] Address: [address] [place], [place] [address] Performed By: #### 3 016-3, 2132-04, 3024-02 ####[facility] LABCLIA [id number] [place] [id number] [place] VITAMIN B12on 10-05-2024 Cobalamin (Vitamin B12) [Mass/Vol] 580 pg/mL 232 - 1245 pg/mL [facility] Vit B12 SerPl-mCncon 025 Cobalamin (Vitamin B12) [Mass/Vol] 580 pg/mL Normal 232-1245 [facility] Comment on above: Order Comment: Speci men Type: BLOOD SPECIMENOrdering Facility: [facility] Address: [address] [place], [place] [address] Performed By: #### 3 016-3, 2132-04, 3024-02 ####[facility] LABCLIA [id number] [place] [id number] [place] CNOVon 09-25-2024 CNOV Office Visit (INTMWS ) -- SUSAN CALDERON ([id number]) 1955 F TXT Date Time Provider Department 09/25/24 1:00 PM CEE CHRISTIANSON INTMWS During your visit today, we recorded the following information about you: Pulse Respiration Blood pressure Weight 67/minute 16/minute 136/81 99 kg Height 1.6 m Cee Christianson MD 11/01/2024 6:20 PM Signed This note was created using [employer]. Subjective Susan Calderon is a 69 year [...] a will and a healthcare power of transactional attorney. She does not have a living [...] Take by mouth two times a day. fpthjpwp-vjdose-benilaub acid (COLLAGEN 1500 PLUS C) 500 mg-800 [...] (GLUCOSAMINE-CHONDROITIN CO (more content not included)... Normal [facility] KIDNEY/BLADDERon 09-22-19 KIDNEY/BLADDER * * *Final Report* * * DATE OF EXAM: Sep 22 2024 2:11PM U 1055 - US KIDNEY/BLADDER / PROCEDURE REASON: multiple diagnoses * [...] visualization. No hydronephrosis. LEFT kidney appears atrophic. Equipment Installer: APRYL Transcribe Date/Time: Sep 24 2024 8:25A Dictated by : COLLEEN HE DO This examination was interpreted and the report reviewed and electronically signed by: COLLEEN HE DO on Sep 24 2024 8:28AM EST [id number] Normal [facility] CNOVon 09-21-2024 CNOV Office Visit (INTMWS ) -- SUSAN CALDERON ([id number]) 1955 F TXT Date Time Provider Department 09/21/24 4:20 PM PRADEEP BLANTON INTMWS During your visit today, we recorded the following information about you: Temperature Pulse Respiration Blood pressure 99.2 degrees 80/minute 16/minute 136/82 Weight 100.5 kg Pradeep Blanton MD 09/22/2024 12:28 AM Signed This note was created using [employer]. Subjective Patient presents with: [facility] follow-up [...] Take by mouth two times a day. jrtgoptx-amfofe-wjximipu acid (COLLAGEN 1500 PLUS C) 500 mg-800 [...] taking: Repo (more content not included)... Normal [facility] UA DIP, URINE (POC)on 2024 BILIRUBIN UA (POCT) Negative Negative [facility] CLARITY UA (POCT) Clear [facility] COLOR UA (POCT) Yellow [facility] GLUCOSE UA (POCT) Negative Negative mg/dL [facility] Hemoglobin Ql (U) Trace-intact Abnormal Negative [facility] Interpretation and review of laboratory results Abnormal [facility] KETONE UA (POCT) Negative Negative mg/dL [facility] LEUKOCYTES UA (POCT) Negative [facility] NITRITE UA (POCT) Negative Negative [facility] PH UA (POCT) 8.0 4.5 - 8.0 [facility] Protein Ql (U) Negative Negative mg/dL [facility] SPECIFIC GRAVITY UA (POCT) 1.020 1.005 - 1.030 [facility] UROBILINOGEN UA (POCT) 0.2 Scarlet l E.U./dL [facility] Location:[address], [place], [place], [id number] [place] [address] OF CARE [facility] Radu 09-13-2024 CNPN Telephone (UCWSTR) -- HERONSUSAN JACQUES ([id number]) 1955 F TXT Date Time Provider Department 09/13/24 JEAN KIM [facility] During your visit today, we recorded [...] by mouth two times a day. - dccufold-vzxois-qilnofbm acid (COLLAGEN 1500 PLUS C) 500 mg-800 [...] Refills S (more content not included)... Normal [facility] Bacteria Ur Culton Bacteria identified Cx Nom (U) ORGANISM ID: [...] , Intermediate >32 , Resistant >64 Abnormal [facility] Comment on above: Performed By: #### 6 30-4 ####[facility] JONATHAN [id number] [address] [place] CNOVon 09-11-2024 CNOV Office Visit (UCWSTR ) -- SUSAN CALDERON ([id number]) 1955 F TXT Date Time Provider Department 09/11/24 9:30 AM JEAN KIM [facility] During your visit today, we recorded the following information about you: Temperature Pulse Respiration Blood pressure 98.2 degrees 75/minute 21/minute 128/80 Weight 98.9 kg Jean Kim PA 09/11/2024 10:44 AM Signed This note was created using [employer]. Subjective Susan Calderon is a 69 year [...] Take by mouth two times a day. fnykyhia-fjolje-fqxfnmeh acid (COLLAGEN 1500 PLUS C) 500 mg-800 [...] quittin.1 Smokeless (more content not included)... Normal [facility] UA DIP, URINE (POC)on 2024 BILIRUBIN UA (POCT) Negative Negative [facility] CLARITY UA (POCT) Clear [facility] COLOR UA (POCT) Yellow [facility] GLUCOSE UA (POCT) Negative Negative mg/dL [facility] Hemoglobin Ql (U) Negative Negative [facility] Interpretation and review of laboratory results Abnormal [facility] KETONE UA (POCT) Negative Negative mg/dL [facility] LEUKOCYTES UA (POCT) Trace Abnormal Negative [facility] NITRITE UA (POCT) Negative Negative [facility] PH UA (POCT) 6.5 4.5 - 8.0 [facility] Protein Ql (U) Negative Negative mg/dL [facility] SPECIFIC GRAVITY UA (POCT) 1.015 1.005 - 1.030 [facility] UROBILINOGEN UA (POCT) 0.2 Scarlet l E.U./dL [facility] Location:[facility], [address] [place] [address], [place], [place], [id number] [place] [address] POINT OF CARE [facility] XR LUMBAR 3V AP/LAT/L5-S1on 09-11-2024 XR [...] 3. Degenerative disease of the lumbar spine Equipment Installer: APRYL Transcribe Date/Time: Sep 11 2024 10:24A Dictated by : MARK MIXON MD This examination was interpreted and the report reviewed and electronically signed by: MARK MIXON MD on Sep 11 2024 10:28AM EST [id number] Normal [facility] XR Lumbar spine 3 Viewson IMPRESSION: 1. No acute fracture 2. Unchanged retrolisthesis of L3 on L4 3. Degenerative disease of the lumbar spine Equipment Installer: [facility] Transcribe Date/Time: Sep 11 2024 10:24A [...] joints appear normal. DIVISION OF RADIOLOGY Provider, [facility] - 09/11/2024 * * *Final Report* * [...] 3. Degenerative disease of the lumbar spine Equipment Installer: APRYL Transcribe Date/Time: Sep 11 2024 10:24A Dictated by : MARK MIXON MD This examination was interpreted and the report reviewed and electronically signed by: MARK MIXON MD on Sep 11 2024 10:28AM EST [facility] Radiology Study observation (narrative) [facility] XR Lumbar spine 3 ViewsOrder ed By: Ccf Provider on 09-11-2024 [facility] 25(OH)D3 SerPl-mCncon 2024 25-hydroxyvitamin D3 [Mass/Vol] 61.9 ng/mL Normal 31.0-80.0 [facility] Comment on above: Order Comment: Speci men Type: BLOOD SPECIMENOrdering Facility: [facility] Address: [address] [place] [address] Result Comment: Clas sification of 25 [place] Vitamin D status: Deficiency/Insufficiency: < or = 30 ng/ml. Sufficiency/Optimal Levels: 31-80 ng/mL Toxicity: > 100 ng/mL. Test performed by chemiluminescent immunoassay. Performed By: #### 1 989-3 ####[facility] LABCLIA [id number] [place] [address] [place] CBC panel Auto (Bld)on 09-08 Erythrocyte distribution width (RBC) [Ratio] 13.2 % Normal 11.5-15.0 [facility] Comment on above: Order Comment: Speci men Type: BLOOD SPECIMENOrdering Facility: [facility] Address: [address] [place] [address] Performed By: #### 5 8410-2 ####[facility] LABCLIA [id number] [place] [address] [place] Hematocrit (Bld) [Volume fraction] 42.6 % Normal 36.0-46.0 [facility] Comment on above: Order Comment: Angelinai men Type: BLOOD SPECIMENOrdering Facility: [facility] Address: [address] [place] [address] Performed By: #### 5 8410-2 ####[facility] LABCLIA [id number] [place] [address] [place] Hemoglobin (Bld) [Mass/Vol] 13.3 g/dL Normal 11.5-15.5 [facility] Comment on above: Order Comment: Speci men Type: BLOOD SPECIMENOrdering Facility: [facility] Address: [address] [place] [address] Performed By: #### 5 8410-2 ####[facility] LABIA [id number] [place] [address] [place] MCH (RBC) [Entitic mass] 29.6 pg Normal 26.0-34.0 [facility] Comment on above: Order Comment: Speci men Type: BLOOD SPECIMENOrdering Facility: [facility] Address: [address] [place] [address] Performed By: #### 5 8410-2 ####[facility] [id number] [place] [address] [place] MCHC (RBC) [Mass/Vol] 31.2 g/dL Normal 30.5-36.0 [facility] Comment on above: Order Comment: Speci men Type: BLOOD SPECIMENOrdering Facility: [facility] Address: [address] [place] [address] Performed By: #### 5 8410-2 ####[facility] [id number] [place] [address] [place] MCV (RBC) [Entitic vol] 94.7 fL Normal 80.0-100.0 [facility] Comment on above: Order Comment: Speci men Type: BLOOD SPECIMENOrdering Facility: [facility] Address: [address] [place] [address] Performed By: #### 5 8410-2 ####[facility] LABIA [id number] [place] [address] [place] Nucleated RBC (Bld) [#/Vol] 10*3/uL Normal <0.01 [facility] Comment on above: Order Comment: Speci men Type: BLOOD SPECIMENOrdering Facility: [facility] Address: [address] [place] [address] Performed By: #### 5 8410-2 ####[facility] LABCLIA [id number] [place] [address] [place] Platelet mean volume (Bld) [Entitic vol] 10.9 fL Normal 9.0-12.7 [facility] Comment on above: Order Comment: Speci men Type: BLOOD SPECIMENOrdering Facility: [facility] Address: [address] [place] [address] Performed By: #### 5 8410-2 ####[facility] LABIA [id number] [place] [address] [place] Platelets (Bld) [#/Vol] 317 10*3/uL Normal 150-400 [facility] Comment on above: Order Comment: Speci men Type: BLOOD SPECIMENOrdering Facility: [facility] Address: [address] [place] [address] Performed By: #### 5 8410-2 ####[facility] LABIA [id number] [place] [address] [place] RBC (Bld) [#/Vol] 4.50 10*6/uL Normal 3.90-5.20 [facility] Comment on above: Order Comment: Speci men Type: BLOOD SPECIMENOrdering Facility: [facility] Address: [address] [place] [address] Performed By: #### 5 8410-2 ####[facility] LABIA [id number] [place] [address] [place] WBC (Bld) [#/Vol] 8.37 10*3/uL Normal 3.70-11.00 [facility] Comment on above: Order Comment: Speci men Type: BLOOD SPECIMENOrdering Facility: [facility] Address: [address] [place] [address] Performed By: #### 5 8410-2 ####[facility] LABIA [id number] [place] [id number] [place] Comprehensive metabolic 2000 panelon 09-08-2024 Albumin [Mass/Vol] 4.1 g/dL Normal 3.9-4.9 [facility] Comment on above: Order Comment: Speci men Type: BLOOD SPECIMENOrdering Facility: [facility] Address: [address] [place] [address] Performed By: #### 2 4331-1, 6-4, 50638-9, 81852-3 ####[facility] LABIA [id number] [place] [address] [place] ALP [Catalytic activity/Vol] 114 U/L Normal 34-123 [facility] Comment on above: Order Comment: Speci men Type: BLOOD SPECIMENOrdering Facility: [facility] Address: [address] [place] [address] Performed By: #### 2 4331-1, 6-4, 48443-8, 85679-2 ####[facility] [id number] [place] [address] [place] ALT [Catalytic activity/Vol] 18 U/L Normal 7-38 [facility] Comment on above: Order Comment: Speci men Type: BLOOD SPECIMENOrdering Facility: [facility] Address: [address] [place] [address] Performed By: #### 2 4331-1, 2275-4, 59770-2, 09186-6 ####[facility] LABIA [id number] [place] [address] [place] Anion gap [Moles/Vol] 11 mmol/L Normal 8-15 [facility] Comment on above: Order Comment: Speci men Type: BLOOD SPECIMENOrdering Facility: [facility] Address: [address] [place] [address] Performed By: #### 2 4331-1, 2276-4, 52466-3, 86416-2 ####[facility] LABCLIA [id number] [place] [address] [place] AST [Catalytic activity/Vol] 27 U/L Normal 13-35 [facility] Comment on above: Order Comment: Speci men Type: BLOOD SPECIMENOrdering Facility: [facility] Address: [address] [place] [address] Performed By: #### 2 4331-1, 2276-4, 06416-7, 72488-7 ####[facility] LABCLIA [id number] [place] [address] [place] Bilirubin [Mass/Vol] 0.3 mg/dL Normal 0.2-1.3 [facility] Comment on above: Order Comment: Speci men Type: BLOOD SPECIMENOrdering Facility: [facility] Address: [address] [place] [address] Performed By: #### 2 4331-1, 2276-4, 94140-2, 46934-5 ####[facility] LABCLIA [id number] [place] [address] [place] Calcium [Mass/Vol] 9.2 mg/dL Normal 8.5-10.2 [facility] Comment on above: Order Comment: Speci men Type: BLOOD SPECIMENOrdering Facility: [facility] Address: [address] [place] [address] Performed By: #### 2 4331-1, 2276-4, 39155-6, 98527-2 ####[facility] LABCLIA [id number] [place] [address] [place] Chloride [Moles/Vol] 98 mmol/L Normal 98-107 [facility] Comment on above: Order Comment: Speci men Type: BLOOD SPECIMENOrdering Facility: [facility] Address: [address] [place] [address] Performed By: #### 2 4331-1, 2275-4, 57407-6, ####[facility] LABIA [id number] [place] [id number] [place] CO2 [Moles/Vol] 24 mmol/L Normal 22-30 [facility] Comment on above: Order Comment: Speci men Type: BLOOD SPECIMENOrdering Facility: [facility] Address: [address] [place] [address] Performed By: #### 2 4331-1, 2275-4, 49173-2, 37175-6 ####[facility] LABIA [id number] [place] [address] [place] Creatinine [Mass/Vol] 0.73 mg/dL Normal 0.58-0.96 [facility] Comment on above: Order Comment: Speci men Type: BLOOD SPECIMENOrdering Facility: [facility] Address: [address] [place] [address] Performed By: #### 2 4331-1, 2275-4, 31759-6, ####[facility] [id number] [place] [address] [place] Creatinine and Glomerular filtration rate.predicted panel (S/P/Bld) 89 mL/min/1.73m??? Normal >=60 [facility] Comment on above: Order Comment: Speci men Type: BLOOD SPECIMENOrdering Facility: [facility] Address: [address] [place] [address] Result Comment: Ivonne mated Glomerular Filtration Rate [...] actual GFR. Performed By: #### 2 4331-1, 2275-4, 11176-0, 40801-7 ####[facility] LABCLIA [id number] [address] [address] [place] Glucose [Mass/Vol] 100 mg/dL High 74-99 [facility] Comment on above: Order Comment: Speci men Type: BLOOD SPECIMENOrdering Facility: [facility] Address: [address] [place] [address] Result Comment: The [place] Diabetes Association (ADA) provides guidance for cutoff [...] Standards of Medical Care in Diabetes 2016, [employer] [employer]. Diabetes Care. 2016.39(Suppl 1). Performed By: #### 2 4331-1, 2275-4, 18690-2, ####[facility] LABCLIA [id number] [address] [address] [place] Potassium [Moles/Vol] 4.8 mmol/L Normal 3.7-5.1 [facility] Comment on above: Order Comment: Speci men Type: BLOOD SPECIMENOrdering Facility: [facility] Address: [address] [place] [address] Performed By: #### 2 4331-1, 2275-4, 57421-2, ####[facility] LABCLIA [id number] [address] [address] [place] Protein [Mass/Vol] 7.7 g/dL Normal 6.3-8.0 [facility] Comment on above: Order Comment: Speci men Type: BLOOD SPECIMENOrdering Facility: [facility] Address: [address] [place], [place] [address] Performed By: #### 2 4331-1, 2275-4, 40315-1, ####[facility] LABCLIA [id number] [address] [address] [place] Sodium [Moles/Vol] 133 mmol/L Low 136-144 [facility] Comment on above: Order Comment: Speci men Type: BLOOD SPECIMENOrdering Facility: [facility] Address: [address] [place], [place] [address] Performed By: #### 2 4331-1, 2275-4, 67310-9, ####[facility] LABCLIA [id number] [place] [address] [place] Urea nitrogen [Mass/Vol] 24 mg/dL High 7-21 [facility] Comment on above: Order Comment: Speci men Type: BLOOD SPECIMENOrdering Facility: [facility] Address: [address] [place] [address] Performed By: #### 2 4331-1, 2275-4, 08000-4, ####[facility] LABCLIA [id number] [place] [address] [place] Ferritin SerPl-mCncon 2024 Ferritin [Mass/Vol] 432.0 ng/mL High 14.7-205.1 [facility] Comment on above: Order Comment: Speci men Type: BLOOD SPECIMENOrdering Facility: [facility] Address: [address] [place], [place] [address] Performed By: #### 2 4331-1, 2275-4, 33675-7, ####[facility] LABCLIA [id number] [place] [address] [place] Lipid 1996 panelon 5 Cholesterol [Mass/Vol] 141 mg/dL Normal <200 [facility] Comment on above: Order Comment: Speci men Type: BLOOD SPECIMENOrdering Facility: [facility] Address: [address] [place] [address] Result Comment: <200 mg/dL, Desirable 200-239 mg/dL, Borderline high >239 mg/dL, High Performed By: #### 2 4331-1, 6-4, 50960-7, ####[facility] LABCLIA [id number] [facility] [address] [address] [place] Cholesterol in HDL [Mass/Vol] 60 mg/dL Normal >39 [facility] Comment on above: Order Comment: Speci men Type: BLOOD SPECIMENOrdering Facility: [facility] Address: [address] [place] [address] Result Comment: 40-5 9 mg/dL, Acceptable >59 mg/dL, High: Negative risk factor for coronary heart disease <40 mg/dL, Low: Positive risk factor for coronary heart disease Performed By: #### 2 4331-1, 2275-4, 32657-0, ####[facility] LABCLIA [id number] [address] [address] [place] Cholesterol in LDL [Mass/Vol] 70 mg/dL Normal <100 [facility] Comment on above: Order Comment: Speci men Type: BLOOD SPECIMENOrdering Facility: [facility] Address: [address] [place] [address] Result Comment: <100 mg/dL, Optimal 100-129 mg/dL, Near optimal/above optimal 130-159 mg/dL, Borderline high 160-189 mg/dL, High >189 mg/dL, Very high Secondary prevention optimal LDL Cholesterol levels are recommended to be < 70 mg/dL Performed By: #### 2 4331-1, 6-4, 67474-5, 06521-7 ####[facility] LABCLIA [id number] [facility] [address] [address] [place] Cholesterol in LDL/Cholesterol in HDL [Mass ratio] 1.17 {ratio} Normal <2.54 [facility] Comment on above: Order Comment: Speci men Type: BLOOD SPECIMENOrdering Facility: [facility] Address: [address] [place] [address] Result Comment: Stefani shirley: 1. National Cholesterol Education Program ATP III Guideline At-A-Glance Quick Desk Reference: National Heart, Lung, and Blood [employer]. National Institutes of Health. 2001: NIH Publication No. 01-3305. 2. An International Atherosclerosis Society position paper: global recommendations for the management of dyslipidemia: executive summary, Atherosclerosis. 2014: 232(2):410-413. Performed By: #### 2 4331-1, 2276-4, 61058-9, 30201-5 ####[facility] LABCLIA [id number] [place] [address] [place] Cholesterol in VLDL [Mass/Vol] 11 mg/dL Normal <30 [facility] Comment on above: Order Comment: Speci men Type: BLOOD SPECIMENOrdering Facility: [facility] Address: [address] [place] [address] Performed By: #### 2 4331-1, 6-4, 30712-2, 63692-4 ####[facility] LABIA [id number] [place] [address] [place] Cholesterol non HDL [Mass/Vol] 81 mg/dL Normal <130 [facility] Comment on above: Order Comment: Angelinai men Type: BLOOD SPECIMENOrdering Facility: [facility] Address: [address] [place] [address] Result Comment: <130 mg/dL, Optimal 130-159 mg/dL, Near optimal/above optimal 160-189 mg/dL, Borderline high 190-219 mg/dL, High >219 mg/dL, Very high Secondary prevention optimal non HDL Cholesterol levels are recommended to be <100 mg/dL Performed By: #### 2 4331-1, 2276-4, 30496-7, 58060-1 ####[facility] LABCLIA [id number] [place] [id number] [place] Cholesterol.total/Chol esterol in HDL [Mass ratio] 2.35 {ratio} Normal <5.10 [facility] Comment on above: Order Comment: Speci men Type: BLOOD SPECIMENOrdering Facility: [facility] Address: [address] [place] [address] Performed By: #### 2 4331-1, 6-4, 64819-1, ####[facility] LABCLIA [id number] [place] [address] [place] FASTING TIME 12 hrs Normal [facility] Comment on above: Order Comment: Speci men Type: BLOOD SPECIMENOrdering Facility: [facility] Address: [address] [place] [address] Performed By: #### 2 4331-1, 2275-4, 92005-0, ####[facility] LABCLIA [id number] [place] [address] [place] Triglyceride [Mass/Vol] 53 mg/dL Normal <150 [facility] Comment on above: Order Comment: Speci men Type: BLOOD SPECIMENOrdering Facility: [facility] Address: [address] [place] [address] Result Comment: <150 mg/dL, Normal 150-199 mg/dL, Borderline high 200-499 mg/dL, High >499 mg/dL, Very high Performed By: #### 2 4331-1, 2275-4, 89550-9, ####[facility] LABCLIA [id number] [address] [address] [place] Magnesium SerPl-mCncon 09-08 Magnesium [Mass/Vol] 2.0 mg/dL Normal 1.7-2.3 [facility] Comment on above: Order Comment: Speci men Type: BLOOD SPECIMENOrdering Facility: [facility] Address: [address] [place] [address] Performed By: #### 2 4331-1, 2275-4, 71879-3, ####[facility] LABCLIA [id number] [facility] [id number] [id number] [place] Vit B12 SerPl-mCncon 24-2 025 Cobalamin (Vitamin B12) [Mass/Vol] 769 pg/mL Normal 232-1245 [facility] Comment on above: Order Comment: Speci men Type: BLOOD SPECIMENOrdering Facility: [facility] [facility] Address: [address] [place] [address] Performed By: #### 2 132-9 ####[facility] LABCLIA [id number] [facility] [id number] [place], [place] [id number] [place] [id number] 05-24-2024 [id number] HNO ID: [id number] Author: LUZ PEPE RN Service: ? Author Type: Registered Nurse Type: [id number] Filed: 05/24/2024 11:14 Note Text: The patient received a copy of Colonoscopy discharge instructions that contain information for how to contact the physician who performed the procedure and when to seek medical care. Normal [facility] Colonoscopyon 05-24-2024 Colonoscopy Addendum Number: 1 Addendum Date: 06/15/2024 12:30:14 PM Sedation start time: 9:50AM MATIAS ZAPATA, DO Matias Zapata, 06/15/2024 12:30:31 PM This report has been signed electronically by Matias Lama [facility] Gastrointestinal Endoscopy Patient Name: Susan [...] the patient. Procedure Code(s): --- Professional --- 83031, Colonoscopy, flexible; diagnostic, including collection of specimen(s) by brushing or washing, when performed (separate procedure) G0500, Moderate sedation services provided by the same physician or other qualified health complex care nurse performing a gastrointestinal endoscopic service that sedation supports, requiring the presence of an independent trained observer to assist in the monitoring of the patient's level of consciousness and physiological status; initial 15 minutes of intra (more content not included)... Normal [facility] Colonoscopy Study observatio non 05-24-2024 [facility] Gastrointestinal Endoscopy Patient Name: Susan Calderon Procedure [...] Resume previous (more content not included)... [facility] Radiology Study observation (narrative) [facility] Radu 05-04-2024 [facility] Telephone (INTMWS) -- YOHANASUSAN BROOKS ([id number]) 1955 F TXT Date Time Provider Department [...] Fully Assessed Reason for Visit: Patient Question [9707] Prescriptions as of 05/15/2024 - atenolol (TENORMIN) [...] by mouth two times a day. - xiwxpajk-oqzuwb-iucawwvm acid (COLLAGEN 1500 PLUS C) 500 mg-800 [...] 11/16/2018 [facility] (more content not included)... Normal [facility] 04-21-2024 [facility] Telephone (INTMWS) -- SUSAN CALDERON ([id number]) 1955 F TXT Date Time Provider Department 04/21/24 [facility] INTMWS During your visit today, we recorded the following information about you: Danuta Hyman 04/24/2024 7:22 AM Addendum Please send Jose script to [facility] [address] [place] [phone] Mailed Golytely Prep Instructions Cee Christianson MD [...] by mouth two times a day. - yhgbnlsg-uonhhr-gcdxlefp acid (COLLAGEN 1500 PLUS C) 500 mg-800 [...] [D53.9] 02/19/2023 (more content not included)... Normal [facility]2024 [facility]) -- SUSAN CALDERON ([id number]) 1955 F TXT Date Time Provider Department 03/29/24 [facility] INTMWS During your visit today, we recorded the following information about you: Maite Molina 03/29/2024 2:47 PM Signed Patient calling today [...] times daily. Patient said she uses [facility] for her [facility]. If she is not [...] by mouth two times a day. - qnmbgmri-mklflw-ouajiufx acid (COLLAGEN 1500 PLUS C) 500 mg-800 [...] mcg/actuation inhaler (more content not included)... Normal [facility] CNOVon 02-21-2024 [facility] Office Visit (INTMWS ) -- SUSAN CALDERON ([id number]) 1955 F TXT Date Time Provider Department 02/21/24 8:40 AM [facility] INTMWS During your visit today, we recorded the following information about you: Temperature Pulse Respiration Blood pressure 97.4 degrees 67/minute 16/minute 130/62 Weight Height 107.5 kg 1.689 m Cee Christianson MD 02/22/2024 12:05 AM Signed This note was created using Explarariter. Subjective Susan Calderon is a 68 year [...] 36.0 - (more content not included)... Normal [facility](OH[facility]3 [facility] 25-hydroxyvitamin D3 [Mass/Vol] 52.2 ng/mL Normal 31.0-80.0 [facility] Comment on above: Order Comment: Speci men Type: BLOOD SPECIMENOrdering Facility: [facility] Address: [address] [place] [address] Result Comment: Clas sification of 25 OH Vitamin D status: Deficiency/Insufficiency: < or = 30 ng/ml. Sufficiency/Optimal Levels: 31-80 ng/mL Toxicity: > 100 ng/mL. Test performed by chemiluminescent immunoassay. Performed By: #### 1 989-3 ####[facility] LABCLIA [id number] [place] [address] [place] CBC W Auto Differential pane l (Bld)on 02-18-2024 Basophils (Bld) [#/Vol] 0.06 10*3/uL Normal <0.11 [facility] Comment on above: Order Comment: Speci men Type: BLOOD SPECIMENOrdering Facility: [facility] Address: [address] [place] [address] Performed By: #### 5 7021-8 ####[facility] LABCLIA [id number] [place] [address] [place] Basophils/100 WBC (Bld) 1.2 % Normal [facility] Comment on above: Order Comment: Speci men Type: BLOOD SPECIMENOrdering Facility: [facility] Address: [address] [place] [address] Performed By: #### 5 7021-8 ####[facility] LABCLIA [id number] [place] [address] [place] Differential cell count method Nom (Bld) Auto Normal [facility] Comment on above: Order Comment: Speci men Type: BLOOD SPECIMENOrdering Facility: [facility] Address: [address] [place] [address] Performed By: #### 5 7021-8 ####[facility] LABCLIA [id number] [place] [address] [place] Eosinophils (Bld) [#/Vol] 0.16 10*3/uL Normal <0.46 [facility] Comment on above: Order Comment: Speci men Type: BLOOD SPECIMENOrdering Facility: [facility] Address: [address] [place] [address] Performed By: #### 5 7021-8 ####[facility] LABCLIA [id number] [place] [address] [place] Eosinophils/100 WBC (Bld) 3.1 % Normal [facility] Comment on above: Order Comment: Speci men Type: BLOOD SPECIMENOrdering Facility: [facility] Address: [address] [place] [address] Performed By: #### 5 7021-8 ####[facility] LABCLIA [id number] [place] [address] [place] Erythrocyte distribution width (RBC) [Ratio] 12.8 % Normal 11.5-15.0 [facility] Comment on above: Order Comment: Speci men Type: BLOOD SPECIMENOrdering Facility: [facility] Address: [address] [place] [address] Performed By: #### 5 7021-8 ####[facility] LABIA [id number] [place] [address] [place] Hematocrit (Bld) [Volume fraction] 40.8 % Normal 36.0-46.0 [facility] Comment on above: Order Comment: Speci men Type: BLOOD SPECIMENOrdering Facility: [facility] Address: [address] [place] [address] Performed By: #### 5 7021-8 ####[facility] LABCLIA [id number] [place] [address] [place] Hemoglobin (Bld) [Mass/Vol] 13.1 g/dL Normal 11.5-15.5 [facility] Comment on above: Order Comment: Speci men Type: BLOOD SPECIMENOrdering Facility: [facility] Address: [address] [place] [address] Performed By: #### 5 7021-8 ####[facility] LABIA [id number] [place] [address] [place] Immature granulocytes (Bld) [#/Vol] 10*3/uL Normal <0.10 [facility] Comment on above: Order Comment: Speci men Type: BLOOD SPECIMENOrdering Facility: [facility] Address: [address] [place] [address] Performed By: #### 5 7021-8 ####[facility] LABCLIA [id number] [place] [address] [place] Immature granulocytes/100 WBC (Bld) 0.2 % Normal [facility] Comment on above: Order Comment: Speci men Type: BLOOD SPECIMENOrdering Facility: [facility] Address: [address] [place] [address] Performed By: #### 5 7021-8 ####[facility] LABCLIA [id number] [place] [address] [place] Lymphocytes (Bld) [#/Vol] 1.50 10*3/uL Normal 1.00-4.00 [facility] Comment on above: Order Comment: Speci men Type: BLOOD SPECIMENOrdering Facility: [facility] Address: [address] [place] [address] Performed By: #### 5 7021-8 ####[facility] LABCLIA [id number] [place] [address] [place] Lymphocytes/100 WBC (Bld) 29.5 % Normal [facility] Comment on above: Order Comment: Speci men Type: BLOOD SPECIMENOrdering Facility: [facility] Address: [address] [place] [address] Performed By: #### 5 7021-8 ####[facility] LABCLIA [id number] [place] [address] [place] MCH (RBC) [Entitic mass] 30.6 pg Normal 26.0-34.0 [facility] Comment on above: Order Comment: Speci men Type: BLOOD SPECIMENOrdering Facility: [facility] Address: [address] [place] [address] Performed By: #### 5 7021-8 ####[facility] LABCLIA [id number] [place] [address] [place] MCHC (RBC) [Mass/Vol] 32.1 g/dL Normal 30.5-36.0 [facility] Comment on above: Order Comment: Speci men Type: BLOOD SPECIMENOrdering Facility: [facility] Address: [address] [place] [address] Performed By: #### 5 7021-8 ####[facility] LABIA [id number] [place] [address] [place] MCV (RBC) [Entitic vol] 95.3 fL Normal 80.0-100.0 [facility] Comment on above: Order Comment: Speci men Type: BLOOD SPECIMENOrdering Facility: [facility] Address: [address] [place] [address] Performed By: #### 5 7021-8 ####[facility] LABIA [id number] [place] [address] [place] Monocytes (Bld) [#/Vol] 0.46 10*3/uL Normal <0.87 [facility] Comment on above: Order Comment: Speci men Type: BLOOD SPECIMENOrdering Facility: [facility] Address: [address] [place] [address] Performed By: #### 5 7021-8 ####[facility] LABIA [id number] [place] [address] [place] Monocytes/100 WBC (Bld) 9.0 % Normal [facility] Comment on above: Order Comment: Speci men Type: BLOOD SPECIMENOrdering Facility: [facility] Address: [address] [place] [address] Performed By: #### 5 7021-8 ####[facility] LABIA [id number] [address] [address] [place] Neutrophils (Bld) [#/Vol] 2.90 10*3/uL Normal 1.45-7.50 [facility] Comment on above: Order Comment: Speci men Type: BLOOD SPECIMENOrdering Facility: [facility] Address: [address] [place] [address] Performed By: #### 5 7021-8 ####[facility] LABCLIA [id number] [place] [address] [place] Neutrophils/100 WBC (Bld) 57.0 % Normal [facility] Comment on above: Order Comment: Speci men Type: BLOOD SPECIMENOrdering Facility: [facility] Address: [address] [place] [address] Performed By: #### 5 7021-8 ####[facility] LABCLIA [id number] [place] [address] [place] Nucleated RBC (Bld) [#/Vol] 10*3/uL Normal <0.01 [facility] Comment on above: Order Comment: Speci men Type: BLOOD SPECIMENOrdering Facility: [facility] Address: [address] [place] [address] Performed By: #### 5 7021-8 ####[facility] LABCLIA [id number] [place] [address] [place] Nucleated RBC/100 WBC (Bld) [Ratio] 0.0 /100 WBC Normal [facility] Comment on above: Order Comment: Speci men Type: BLOOD SPECIMENOrdering Facility: [facility] Address: [address] [place] [address] Performed By: #### 5 7021-8 ####[facility] LABCLIA [id number] [place] [address] [place] Platelet mean volume (Bld) [Entitic vol] 11.0 fL Normal 9.0-12.7 [facility] Comment on above: Order Comment: Speci men Type: BLOOD SPECIMENOrdering Facility: [facility] Address: [address] [place] [address] Performed By: #### 5 7021-8 ####[facility] LABIA [id number] [place] [address] [place] Platelets (Bld) [#/Vol] 229 10*3/uL Normal 150-400 [facility] Comment on above: Order Comment: Speci men Type: BLOOD SPECIMENOrdering Facility: [facility] Address: [address] [place] [address] Result Comment: No c lot detected. Performed By: #### 5 7021-8 ####[facility] [id number] [place] [address] [place] RBC (Bld) [#/Vol] 4.28 10*6/uL Normal 3.90-5.20 [facility] Comment on above: Order Comment: Speci men Type: BLOOD SPECIMENOrdering Facility: [facility] Address: [address] [place] [address] Performed By: #### 5 7021-8 ####[facility] [id number] [place] [address] [place] WBC (Bld) [#/Vol] 5.09 10*3/uL Normal 3.70-11.00 [facility] Comment on above: Order Comment: Speci men Type: BLOOD SPECIMENOrdering Facility: [facility] Address: [address] [place] [address] Performed By: #### 5 7021-8 ####[facility] [id number] [place] [address] [place] Comprehensive metabolic 2000 panelon 02-18-2024 Albumin [Mass/Vol] 4.1 g/dL Normal 3.9-4.9 [facility] Comment on above: Order Comment: Speci men Type: BLOOD SPECIMENOrdering Facility: [facility] Address: [address] [place] [address] Performed By: #### 2 432-8, 2132-04 ####[facility] LABCLIA [id number] [address] [address] [place] ALP [Catalytic activity/Vol] 82 U/L Normal 34-123 [facility] Comment on above: Order Comment: Speci men Type: BLOOD SPECIMENOrdering Facility: [facility] Address: [address] [place] [address] Performed By: #### 2 4323-03, 2132-04 ####[facility] LABCLIA [id number] [place] [id number] [place] ALT [Catalytic activity/Vol] 21 U/L Normal 7-38 [facility] Comment on above: Order Comment: Speci men Type: BLOOD SPECIMENOrdering Facility: [facility] Address: [address] [place] [address] Performed By: #### 2 4323-03, 2132-04 ####[facility] LABCLIA [id number] [place] [id number] [place] Anion gap [Moles/Vol] 14 mmol/L Normal 8-15 [facility] Comment on above: Order Comment: Speci men Type: BLOOD SPECIMENOrdering Facility: [facility] Address: [address] [place] [address] Performed By: #### 2 4323-03, 2132-04 ####[facility] LABCLIA [id number] [place] [id number] [place] AST [Catalytic activity/Vol] 36 U/L High 13-35 [facility] Comment on above: Order Comment: Speci men Type: BLOOD SPECIMENOrdering Facility: [facility] Address: [address] [place], [place] [address] Performed By: #### 2 432-8, 2132-04 ####[facility] LABCLIA [id number] [place] [id number] [place] Bilirubin [Mass/Vol] 0.3 mg/dL Normal 0.2-1.3 [facility] Comment on above: Order Comment: Speci men Type: BLOOD SPECIMENOrdering Facility: [facility] Address: [address] [place] [address] Performed By: #### 2 432-8, 2132-04 ####[facility] LABCLIA [id number] [place] [address] [place] Calcium [Mass/Vol] 9.0 mg/dL Normal 8.5-10.2 [facility] Comment on above: Order Comment: Speci men Type: BLOOD SPECIMENOrdering Facility: [facility] Address: [address] [place] [address] Performed By: #### 2 432-8, 2132-04 ####[facility] LABCLIA [id number] [place] [address] [place] Chloride [Moles/Vol] 97 mmol/L Low 98-107 [facility] Comment on above: Order Comment: Speci men Type: BLOOD SPECIMENOrdering Facility: [facility] Address: [address] [place] [address] Performed By: #### 2 4323-03, 2132-04 ####[facility] LABCLIA [id number] [place] [address] [place] CO2 [Moles/Vol] 20 mmol/L Low 22-30 [facility] Comment on above: Order Comment: Speci men Type: BLOOD SPECIMENOrdering Facility: [facility] Address: [address] [place] [address] Performed By: #### 2 8, 2132-04 ####[facility] LABCLIA [id number] [place] [id number] [place] Creatinine [Mass/Vol] 0.84 mg/dL Normal 0.58-0.96 [facility] Comment on above: Order Comment: Speci men Type: BLOOD SPECIMENOrdering Facility: [facility] Address: [address] [place] [id number] Performed By: #### 2 4323-8, 2132-04 ####[facility] LABIA [id number] [place] [id number] [place] Creatinine and Glomerular filtration rate.predicted panel (S/P/Bld) 75 mL/min/1.73m??? Normal >=60 [facility] Comment on above: Order Comment: Migel sanderson Type: BLOOD SPECIMENOrdering Facility: [facility] Address: [address] [place] [address] Result Comment: Ivonne mated Glomerular Filtration Rate [...] reflect actual GFR. Performed By: #### 2 4323-8, 2132-04 ####[facility] LABCLIA [id number] [place] [id number] [place] Glucose [Mass/Vol] 98 mg/dL Normal 74-99 [facility] Comment on above: Order Comment: Migel kin Type: BLOOD SPECIMENOrdering Facility: [facility] Address: [address] [place] [address] Result Comment: The [place] Diabetes Association (ADA) provides guidance for cutoff [...] Standards of Medical Care in Diabetes 2016, [place] [employer]. Diabetes Care. 2016.39(Suppl 1). Performed By: #### 2 4323-03, 2132-04 ####[facility] LABCLIA [id number] [address] [address] [place] Potassium [Moles/Vol] 4.9 mmol/L Normal 3.7-5.1 [facility] Comment on above: Order Comment: Speci men Type: BLOOD SPECIMENOrdering Facility: [facility] Address: [address] [place] [address] Performed By: #### 2 4323-03, 2132-04 ####[facility] LABCLIA [id number] [place] [address] [place] Protein [Mass/Vol] 6.9 g/dL Normal 6.3-8.0 [facility] Comment on above: Order Comment: Speci men Type: BLOOD SPECIMENOrdering Facility: [facility] Address: [address] [place] [address] Performed By: #### 2 4323-03, 2132-04 ####[facility] LABCLIA [id number] [place] [address] [place] Sodium [Moles/Vol] 131 mmol/L Low 136-144 [facility] Comment on above: Order Comment: Speci men Type: BLOOD SPECIMENOrdering Facility: [facility] Address: [address] [place], [place] [address] Performed By: #### 2 4323-03, 2132-04 ####[facility] LABCLIA [id number] [address] [address] [place] Urea nitrogen [Mass/Vol] 15 mg/dL Normal 7-21 [facility] Comment on above: Order Comment: Speci men Type: BLOOD SPECIMENOrdering Facility: [facility] Address: [address] [place], [place] [address] Performed By: #### 2 43210-21, 2132-04 ####[facility] LABCLIA [id number] [address] [address] [place] Ferritin SerPl-mCncon 2023 Ferritin [Mass/Vol] 363.0 ng/mL High 14.7-205.1 [facility] Comment on above: Order Comment: Speci men Type: BLOOD SPECIMENOrdering Facility: [facility] Address: [address] [place] [address] Performed By: #### 5 0190-8, 37814-9, 90050-7, 6-4 ####[facility] LABIA [id number] [place] [id number] [place] Iron and Iron binding capaci ty panelon 02-18-2024 Iron [Mass/Vol] 56 ug/dL Normal 41-186 [facility] Comment on above: Order Comment: Speci men Type: BLOOD SPECIMENOrdering Facility: [facility] Address: [address] [place] [address] Performed By: #### 5 0190-8, 27703-1, 28393-7, 6-4 ####[facility] LABIA [id number] [place] [id number] [place] Iron binding capacity [Mass/Vol] 293 ug/dL Normal 232-386 [facility] Comment on above: Order Comment: Speci men Type: BLOOD SPECIMENOrdering Facility: [facility] Address: [address] [place] [address] Performed By: #### 5 0190-8, 06731-0, 85529-3, 6-4 ####[facility] LABIA [id number] [place] [id number] [place] Iron/TIBC [Molar ratio] 19.1 % Normal 15.0-57.0 [facility] Comment on above: Order Comment: Speci men Type: BLOOD SPECIMENOrdering Facility: [facility] Address: [address] [place] [address] Performed By: #### 5 0190-8, 00500-1, 05142-8, 2275- ####[facility] LABCLIA [id number] [place] [address] [place] Lipid 1996 panelon 4 Cholesterol [Mass/Vol] 114 mg/dL Normal <200 [facility] Comment on above: Order Comment: Speci men Type: BLOOD SPECIMENOrdering Facility: [facility] Address: [address] [place] [address] Result Comment: <200 mg/dL, Desirable 200-239 mg/dL, Borderline high >239 mg/dL, High Performed By: #### 5 0190-8, , 96108-3, 2275- ####[facility] LABCLIA [id number] [address] STATES OF [facility] Cholesterol in HDL [Mass/Vol] 57 mg/dL Normal >39 [facility] Comment on above: Order Comment: Speci men Type: BLOOD SPECIMENOrdering Facility: [facility] Address: [address] [place] [address] Result Comment: 40-5 9 mg/dL, Acceptable >59 mg/dL, High: Negative risk factor for coronary heart disease <40 mg/dL, Low: Positive risk factor for coronary heart disease Performed By: #### 5 0190-8, , 85190-9, 2275-4 ####[facility] LABCLIA [id number] [address] STATES OF [place] Cholesterol in LDL [Mass/Vol] 46 mg/dL Normal <100 [facility] Comment on above: Order Comment: Speci men Type: BLOOD SPECIMENOrdering Facility: [facility] Address: [address] [place] [address] Result Comment: <100 mg/dL, Optimal 100-129 mg/dL, Near optimal/above optimal 130-159 mg/dL, Borderline high 160-189 mg/dL, High >189 mg/dL, Very high Secondary prevention optimal LDL Cholesterol levels are recommended to be < 70 mg/dL Performed By: #### 5 0190-8, 36694-7, 03782-3, 6-4 ####[facility] LABIA [id number] [place] [address] [place] Cholesterol in LDL/Cholesterol in HDL [Mass ratio] 0.81 {ratio} Normal <2.54 [facility] Comment on above: Order Comment: Speci men Type: BLOOD SPECIMENOrdering Facility: [facility] Address: [address] [place] [address] Result Comment: Refe rence: 1. National Cholesterol Education Program ATP III Guideline At-A-Glance Quick Desk Reference: National Heart, Lung, and Blood [place]. National Institutes of Health. 2001: NIH Publication No. 01-3305. 2. An International Atherosclerosis Society position paper: global recommendations for the management of dyslipidemia: executive summary, Atherosclerosis. 2014: 232(2):410-413. Performed By: #### 5 0190-8, 65551-1, 51757-2, 2275-4 ####[facility] LABIA [id number] [place] [address] [place] Cholesterol in VLDL [Mass/Vol] 11 mg/dL Normal <30 [facility] Comment on above: Order Comment: Speci men Type: BLOOD SPECIMENOrdering Facility: [facility] Address: [address] [place] [address] Performed By: #### 5 0190-8, 69930-4, 66124-6, 6-4 ####[facility] LABIA [id number] [place] [id number] [place] Cholesterol non HDL [Mass/Vol] 57 mg/dL Normal <130 [facility] Comment on above: Order Comment: Speci men Type: BLOOD SPECIMENOrdering Facility: [facility] Address: [address] [place] [address] Result Comment: <130 mg/dL, Optimal 130-159 mg/dL, Near optimal/above optimal 160-189 mg/dL, Borderline high 190-219 mg/dL, High >219 mg/dL, Very high Secondary prevention optimal non HDL Cholesterol levels are recommended to be <100 mg/dL Performed By: #### 5 0190-8, 86380-7, 27943-8, 2275- ####[facility] LABCLIA [id number] [address] [address] [place] Cholesterol.total/Chol esterol in HDL [Mass ratio] 2.00 {ratio} Normal <5.10 [facility] Comment on above: Order Comment: Speci men Type: BLOOD SPECIMENOrdering Facility: [facility] Address: [address] [place] [address] Performed By: #### 5 0190-8, 40673-0, 18719-4, 2275-11 ####[facility] LABIA [id number] [place] [address] [place] FASTING TIME 13 hrs Normal [facility] Comment on above: Order Comment: Speci men Type: BLOOD SPECIMENOrdering Facility: [facility] Address: [address] [place] [address] Performed By: #### 5 0190-8, 75443-6, 78699-0, 2275-11 ####[facility] LABIA [id number] [place] [address] [place] Triglyceride [Mass/Vol] 57 mg/dL Normal <150 [facility] Comment on above: Order Comment: Speci men Type: BLOOD SPECIMENOrdering Facility: [facility] Address: [address] [place], [place] [address] Result Comment: <150 mg/dL, Normal 150-199 mg/dL, Borderline high 200-499 mg/dL, High >499 mg/dL, Very high Performed By: #### 5 0190-8, 84046-3, 84285-2, 2275-11 ####[facility] LABCLIA [id number] [address] [address] [place] Magnesium SerPl-[facility] 02-17 Magnesium [Mass/Vol] 1.9 mg/dL Normal 1.7-2.3 [facility] Comment on above: Order Comment: Speci men Type: BLOOD SPECIMENOrdering Facility: [facility] Address: [address] [place] [address] Performed By: #### 5 0190-8, 57838-5, 42984-1, 2276-4 ####[facility] LABCLIA [id number] [place] [address] [place] Vit B12 [facility] 02-17- 024 Cobalamin (Vitamin B12) [Mass/Vol] 673 pg/mL Normal 232-1245 [facility] Comment on above: Order Comment: Speci kin Type: BLOOD SPECIMENOrdering Facility: [facility] Address: [address] [place] [address] Performed By: #### 2 4323-8, 2132-9 ####[facility] LABCLIA [id number] [address] [place] Large Joint Arthro/Inj: L kn ee jointon 12-17-2023 Edgard Dubois P A-C 12/17/2023 12:31 PM Large Joint Arthro/Inj: L knee joint Informed Consent Consent Obtained: Verbal [place] Protocol A moment to CARE was completed. [...] equipment, possible retained foreign bodies accounted for. [facility] DXA-AXIAL SKELETONon 023 [facility] NAVI SCREENINGon 01-04-2023 [facility] SCREENINGon 01-01-2022 [facility] Culture, Blood (WB)on 2016 CUB BCGRAM STAIN: GRAM POSITIVE COCCI CALLED TO Blanca LAMA 07/18/171906 BY OPIEL Possible skin contamination, further Identification and sensitivity will be performed only by physician's request. No anaerobic bacteria isolated. ORGANISM 1: Alpha Hemolytic StreptococcusAmount Growth Growth Normal [facility] Comment on above: Performed By: #### M 200.1000, M100.636 ####[facility] [address] [facility] [address]. [place], [place], [id number] Culture, Deep Woundon 2016 WBC (Leukocytes) Gram [...] $ <=20 S(NF) indicates non-formulary drug at [facility]. Approval by Infectious Disease Specialist required before non-formulary drugs may be ordered and/or dispensed. Cult, AnaerobicNo anaerobic bacteria isolated. Normal [facility] Comment on above: Performed By: #### M 100.1500 ####[facility] [address] [place], [place], [address] 12 Lead Electrocardiogramon 07-22-2017 12 Lead Electrocardiogram [facility] Wkydpwiy8468 [facility] [place], [place] [address] Lead EKG109/08/16 1621MR#: [id number] Acct: [id number]: SUSAN CALDERON Rep #: [id number]: 1955 62 From: Minor Romo Dr: Mayra Lloyd MD Status: DIS INOrdering [...] was foundConfirmed by MINOR JONES MD ([id number]), newspaper editor managing MISHEL HANNAH ([id number]) on 07/22/2017 3:16:15 PMReferred By: ROYER Confirmed By:MINOR JONES MD07/22/17 1516Date Minor Jones MDCC: Cee Christianson MD Signed Normal [facility] Culture, Blood (WB)on 2016 CUB BC No growth in 5 days. Normal [facility] Comment on above: Performed By: #### M 200.1000 ####[facility] [address] [place], [address] 12 Lead Electrocardiogramon 07-20-2017 12 Lead Electrocardiogram [facility] [address] [place], [place] [address] Lead EKG109/14/16 1419MR#: [id number] Acct: [id number]: SUSAN CALDERON Rep #: [id number]: 1955 62 From: Minor Romo Dr: Status: DEP EROrdering Dr: Stefano Garcia MD Date: 07/15/17Location: ED Sex: F CAdmitted:Test Reason : EDEMABlood Pressure : / mmHGVent. Rate : 087 BPM Atrial Rate : 087 BPMP-R Int : 192 ms QRS Dur : 088 msQT Int : 360 ms P-R-T Axes : 011 -10 018 degreesQTc Int : 433 msNormal sinus rhythmNormal ECGConfirmed by MINOR JONES MD ([id number]), newspaper editor managing MISHEL HANNAH ([id number]) on 07/20/2017 3:28:48 PMReferred By: SO Confirmed By:MINOR JONES MD07/20/17 1528Date Minor Jones MDCC: Cee Christianson MD Signed Normal [facility] GPC IDon 07-19-2017 GPC ID GPC IDStaphylococ cus sp. Not DetectedEnterococcus sp. Not DetectedStreptococcus spp. Streptococcus sp. (NOT S. pneumoniae)Listeria spp Not DetectedvanA/vanB Not DetectedmecA Not DetectedNAAT METHOD Testing was performed using nucleic acid amplification ORGANISM 1: Strep not Strep pneumo Normal [facility] Comment on above: Performed By: #### M 200.1000, M100.636 ####[facility] [address] [place], [address] CBC W/Diff, Automatedon - Absolute Neut 6.6 X10 3/uL Normal 2.0-7.7 [facility] Comment on above: Performed By: #### L 100.0100 ####[facility] [address] [place], [address] Basophils/100 WBC Auto (Bld) 0.8 % Normal 0-1 [facility] Comment on above: Performed By: #### L 100.0100 ####[facility] [address] [place], [address] Eosinophils/100 leukocytes 2.5 % Normal 0-5 [facility] Comment on above: Performed By: #### L 100.0100 ####[facility] [address] [place], [address] Erythrocyte distribution width Auto Ratio (RBC) 12.4 % Normal 11.6-14.6 [facility] Comment on above: Performed By: #### L 100.0100 ####[facility] [address] [place], [address] Erythrocytes (RBC) 2.87 M/mm3 Low 4.2-5.4 [facility] Comment on above: Performed By: #### L 100.0100 ####[facility] [address] [place], [address] Hematocrit (HCT) 28.9 % Low 37-47 [facility] Comment on above: Performed By: #### L 100.0100 ####[facility] [address] [place], [address] Hemoglobin mass conc (Bld) 9.2 g/dL Low 12.0-15.0 [facility] Comment on above: Performed By: #### L 100.0100 ####[facility] [address] [place], [address] HYPOCHROMASIA 2+ Normal [facility] Comment on above: Performed By: #### L 100.0100 ####[facility] [address] [place], [address] IM GRAN % 0.700 % Normal 0.0-0.9 [facility] Comment on above: Result Comment: IG% - Immature Granulocytes (promyelocytes, myelocytes andmetamyelocytes) > 1% indicates that a LEFT SHIFT is Present. Performed By: #### L 100.0100 ####[facility] [address] [place], [address] Lymphocytes 2.80 X10 3/ul Normal 0.83-4.51 [facility] Comment on above: Performed By: #### L 100.0100 ####[facility] [address] [place], [address] Lymphocytes/100 leukocytes 26.1 % Normal 19-41 [facility] Comment on above: Performed By: #### L 100.0100 ####[facility] [address], [address] MCH 32.1 pg High 27.0-32.0 [facility] Comment on above: Performed By: #### L 100.0100 ####[facility] [address] [place], [address] MCHC mass conc (RBC) 31.8 g/gl Low 32-36 [facility] Comment on above: Performed By: #### L 100.0100 ####[facility] [address] [place], [address] MCV 100.7 fL High 81-99 [facility] Comment on above: Performed By: #### L 100.0100 ####[facility] [address] [place], [address] Monocytes/100 leukocytes 8.0 % Normal 0-10 [facility] Comment on above: Performed By: #### L 100.0100 ####[facility] [address] [place], [address] Neutrophils/100 WBC Auto (Bld) 61.9 % Normal 47-70 [facility] Comment on above: Performed By: #### L 100.0100 ####[facility] [address] [place], [address] Platelet mean volume (PMV) 9.4 fL Normal 6.2-12.0 [facility] Comment on above: Performed By: #### L 100.0100 ####[facility] [address] [place], [address] Platelets 458 10*3/uL High 150-450 [facility] Comment on above: Performed By: #### L 100.0100 ####[facility] [address] [place], [address] PLT EST ADEQUATE Normal ADEQ [facility] Comment on above: Performed By: #### L 100.0100 ####[facility] [address] [place], [address] RDW SD 46.1 fl High 35.1-43.9 [facility] Comment on above: Performed By: #### L 100.0100 ####[facility] [address] [place], [address] SMEAR COMMENT SCANNED Normal [facility] Comment on above: Performed By: #### L 100.0100 ####[facility] [address] [place], [address] WBC (Leukocytes) 10.1 10*3/uL Normal 4.4-11.0 [facility] Comment on above: Performed By: #### L 100.0100 ####[facility] [address] [place], [address] Comprehensive Metabolic Prof ilon 07-19-2017 A/G 0.5 RATIO Low 0.9-2.4 [facility] Comment on above: Performed By: #### L 500.4050 ####[facility] [address] [place], [address] Alanine aminotransferase (ALT) 24 U/L Normal [facility] Comment on above: Performed By: #### L 500.4050 ####[facility] [address] [place], [address] Albumin 2.0 g/dL Low 3.4-5.0 [facility] Comment on above: Result Comment: Sharon martin note revised Albumin AND Globulin reference rangeeffective 2017. Performed By: #### L 500.4050 ####[facility] [address] [place], [address] Alkaline phosphatase (ALP) 43 U/L Low 45-117 [facility] Comment on above: Performed By: #### L 500.4050 ####[facility] [address] [place], [address] Aspartate aminotransferase (AST) 27 U/L Normal 15-37 [facility] Comment on above: Performed By: #### L 500.4050 ####[facility] [address] [place], [address] Bilirubin (total) 0.20 mg/dL Normal 0.20-1.00 [facility] Comment on above: Performed By: #### L 500.4050 ####[facility] [address] [place], [address] BUN (urea nitrogen) 13.0 RATIO Normal 10-20 [facility] Comment on above: Performed By: #### L 500.4050 ####[facility] [address] [place], [address] Calcium 8.0 mg/dL Low 8.5-10.1 [facility] Comment on above: Performed By: #### L 500.4050 ####[facility] [address] [place], [address] Chloride 102 mmol/L Normal 98-107 [facility] Comment on above: Performed By: #### L 500.4050 ####[facility] [address] [place], [address] CO2 29.0 mmol/L Normal 21.0-32.0 [facility] Comment on above: Performed By: #### L 500.4050 ####[facility] [address] [place], [address] Creatinine 0.38 mg/dL Low 0.55-1.02 [facility] Comment on above: Result Comment: The validity of the calculated GFR AND GFRAA in patients over70 years has not been determined. Clinical correlation isessential. Performed By: #### L 500.4050 ####[facility] [address] [place], [address] eGFR (non-black) 180 mL/min/{1.73_m2} Normal >60 [facility] Comment on above: Result Comment: Non- GFR Calc Performed By: #### L 500.4050 ####[facility] [address] [place], [address] eGFR (non-black) 217 mL/min/{1.73_m2} Normal >60 [facility] Comment on above: Result Comment: Afri can Vincentian GFR Calc Performed By: #### L 500.4050 ####[facility] [address] [place], [address] Estimated CRCL 141.86 ml/min Normal [facility] Comment on above: Performed By: #### L 500.4050 ####[facility] [address] [place], [address] GAP 9 Normal 5-15 [facility] Comment on above: Performed By: #### L 500.4050 ####[facility] [address] [place], [address] Globulin 4.3 g/dL High 2.2-4.2 [facility] Comment on above: Performed By: #### L 500.4050 ####[facility] [address] [place], [address] Glucose mass conc 91 mg/dL Normal 70-110 [facility] Comment on above: Performed By: #### L 500.4050 ####[facility] [address] [place], [address] Potassium molar conc 3.3 mmol/L Low 3.5-5.1 [facility] Comment on above: Performed By: #### L 500.4050 ####[facility] [address] [place], [place], [address] Sodium 140 mmol/L Normal 136-145 [facility] Comment on above: Performed By: #### L 500.4050 ####[facility] [address] [place], [place], [address] T PROT 6.3 g/dL Low 6.4-8.2 [facility] Comment on above: Performed By: #### L 500.4050 ####[facility] [address] [place], [place], [address] Urea nitrogen 5 mg/dL Low 7-18 [facility] Comment on above: Performed By: #### L 500.4050 ####[facility] [address] [place], [place], [address] Discharge Instructionon 12-0 Discharge Instruction [facility] [address] [place], [place] [address]Sspztdxaqbpw for Home/Discharge Ulzgzkrhwxzp57/04/17 1134MR#: [id number] Acct: [id number]: SUSAN CALDERON Rep #: [id number]: 1955 62 [...] Wednesday, please call for time, thank you07/19/17 5899 Date Susan June MDCC: Cee Christianson MD Normal [facility] MRSA Wound DNA by PCRon MRSA RESULT Negative Normal Negative [facility] Comment on above: Order Comment: Comme nts: abdominal woundSpecimen Source? abdominal wound Performed By: #### L 8200.1075 ####[facility] [address] [place], [address] SA RESULT Negative Normal Negative [facility] Comment on above: Order Comment: Comme nts: abdominal woundSpecimen Source? abdominal wound Performed By: #### L 8200.1075 ####[facility] [address] [place], [address] Operative Reporton 7 Operative Report [facility] Ecntvxcnwf[address] [facility] [place], [place] [address]Acdmochjr Uaqngu23/24/172023MR#: [id number] Acct: [id number]: SUSAN CALDERON Rep #: [id number]: 1955 62 From: Susan June MDPCP: Cee Christianson MD Status: DIS IN YLocation: MS2 EV528-0Ckkkes of OperationDate of Procedure: 07/09/17Pre-Operative Diagnosis: K 50.812 small bowel obstructionPost-Operative Diagnosis: Same, necrotic-appearing small bowelSurgery/Procedure Performed:: Diagnostic laparoscopy, converted to open exploratory laparotomy,lysis of adhesions, small bowel resectionDescription of Surgical Findings::dense adhesions in the area of previous hysterectomy with loop of bowel ileum twisted uponitself - appeared necroticConcern for retroperitoneal adhesions and bleeding and therefore intraoperative consultationwith Dr. Reaves was obtainedOR Liquor Clerk: Dasha Reaves of Anesthesia:: GeneralAnesthesiologist: Lamont Hernandez'keara removed: small bowel - segment of ileumDrains: [...] contents. Hemostasis was checked with electrocautery.Initially a [place] retractor was used for intraoperative exposure, but [...] theopenings and fired, thus creating a stapled rdja-ps-afxi, functional end-to-end anastomosis.The resulting opening from the [...] openings and fired, thus creating a stapled ndje-hx-eazp,functional end-to-end anastomosis. The resulting opening from the [...] Prophylaxis ordered?: Yes07/19/17 1612 Date Susan June [facility]: Susna June MD; Cee Christianson MD Signed Normal [facility] Abdomen/Pelvis W IV Cont ONL Yon 07-17-2017 Abdomen/Pelvis W IV Cont ONLY [facility] [address] [facility] [place], [place] [address]Crdtlsv/Pelvis W IV Cont ONLYMR#: [id number] Acct: [id number]: SUSAN CALDERON Rep #: [id number]: 1955 F 62 From: Aravind Hernandez MDPCP: Cee Christianson MD Status: REG ERStudy: Abdomen/Pelvis W IV Cont ONLY Date of Exam: 07/17/17Exam# [id number] Ordering Dr: Kamini Rosa MDSTUDY: CT ABDOMEN [...] fusion from L4 to S1. ORDER #: [id number] CT/Abdomen/Pelvis W IV Cont ONLYIMPRESSION:Postoperati ve changes. [...] 15:11:31(ET).CC: Kamini Rosa MD; Cee Christianson MD Equipment Installer:Signed Normal [facility] Basic Metabolic Profile (BMP )on 07-17-2017 BUN (urea nitrogen) 11.7 RATIO Normal 10-20 [facility] Comment on above: Performed By: #### L 500.2500 ####[facility] [address] [facility] [address] Calcium 8.4 mg/dL Low 8.5-10.1 [facility] Comment on above: Performed By: #### L 500.2500 ####[facility] [address] [facility] [address] Chloride 94 mmol/L Low 98-107 [facility] Comment on above: Performed By: #### L 500.2500 ####[facility] [address] [place], [address] CO2 34.0 mmol/L High 21.0-32.0 [facility] Comment on above: Performed By: #### L 500.2500 ####[facility] [address] [place], [address] Creatinine 0.43 mg/dL Low 0.55-1.02 [facility] Comment on above: Result Comment: The validity of the calculated GFR AND GFRAA in patients over70 years has not been determined. Clinical correlation isessential. Performed By: #### L 500.2500 ####[facility] [address] [place], [address] eGFR (non-black) 159 mL/min/{1.73_m2} Normal >60 [facility] Comment on above: Result Comment: Non- GFR Calc Performed By: #### L 500.2500 ####[facility] [address] [place], [address] eGFR (non-black) 193 mL/min/{1.73_m2} Normal >60 [facility] Comment on above: Result Comment: Afri can Vincentian GFR Calc Performed By: #### L 500.2500 ####[facility] [address] [place], [address] Estimated CRCL 125.36 ml/min Normal [facility] Comment on above: Performed By: #### L 500.2500 ####[facility] [address] [place], [address] GAP 8 Normal 5-15 [facility] Comment on above: Performed By: #### L 500.2500 ####[facility] [address] [place], [address] Glucose mass conc 98 mg/dL Normal 70-110 [facility] Comment on above: Performed By: #### L 500.2500 ####[facility] [address] [place], [address] Potassium molar conc 3.3 mmol/L Low 3.5-5.1 [facility] Comment on above: Performed By: #### L 500.2500 ####[facility] [address] [place], [address] Sodium 136 mmol/L Normal 136-145 [facility] Comment on above: Performed By: #### L 500.2500 ####[facility] [address] [place], [address] Urea nitrogen 5 mg/dL Low 7-18 [facility] Comment on above: Performed By: #### L 500.2500 ####[facility] [address] [place], [address] CBC W/Diff, Automatedon 12-0 2-2017 Absolute Neut 11.3 X10 3/uL High 2.0-7.7 [facility] Comment on above: Performed By: #### L 100.0100 ####[facility] [address] [place], [address] Basophils/100 WBC Auto (Bld) 0.3 % Normal 0-1 [facility] Comment on above: Performed By: #### L 100.0100 ####[facility] [address] [place], [address] Eosinophils/100 leukocytes 1.4 % Normal 0-5 [facility] Comment on above: Performed By: #### L 100.0100 ####[facility] [address] [place], [address] Erythrocyte distribution width Auto Ratio (RBC) 12.4 % Normal 11.6-14.6 [facility] Comment on above: Performed By: #### L 100.0100 ####[facility] [address] [place], [address] Erythrocytes (RBC) 3.08 M/mm3 Low 4.2-5.4 [facility] Comment on above: Performed By: #### L 100.0100 ####[facility] [address] [place], [address] Hematocrit (HCT) 31.1 % Low 37-47 [facility] Comment on above: Performed By: #### L 100.0100 ####[facility] [address] [place], [address] Hemoglobin mass conc (Bld) 10.0 g/dL Low 12.0-15.0 [facility] Comment on above: Performed By: #### L 100.0100 ####[facility] [address] [place], [address] IM GRAN % 0.400 % Normal 0.0-0.9 [facility] Comment on above: Result Comment: IG% - Immature Granulocytes (promyelocytes, myelocytes andmetamyelocytes) > 1% indicates that a LEFT SHIFT is Present. Performed By: #### L 100.0100 ####[facility] [address] [place], [address] Lymphocytes 2.05 X10 3/ul Normal 0.83-4.51 [facility] Comment on above: Performed By: #### L 100.0100 ####[facility] [address] [place], [address] Lymphocytes/100 leukocytes 14.0 % Low 19-41 [facility] Comment on above: Performed By: #### L 100.0100 ####[facility] [address] [place], [address] MCH 32.5 pg High 27.0-32.0 [facility] Comment on above: Performed By: #### L 100.0100 ####[facility] [address] [place], [address] MCHC mass conc (RBC) 32.2 g/gl Normal 32-36 [facility] Comment on above: Performed By: #### L 100.0100 ####[facility] [address] [place], [address] MCV 101.0 fL High 81-99 [facility] Comment on above: Performed By: #### L 100.0100 ####[facility] [address] [place], [address] Monocytes/100 leukocytes 6.4 % Normal 0-10 [facility] Comment on above: Performed By: #### L 100.0100 ####[facility] [address] [place], [address] Neutrophils/100 WBC Auto (Bld) 77.5 % High 47-70 [facility] Comment on above: Performed By: #### L 100.0100 ####[facility] [address] [place], [address] Platelet mean volume (PMV) 9.6 fL Normal 6.2-12.0 [facility] Comment on above: Performed By: #### L 100.0100 ####[facility] [address] [place], [address] Platelets 462 10*3/uL High 150-450 [facility] Comment on above: Performed By: #### L 100.0100 ####[facility] [address] [place], [address] RDW SD 46.1 fl High 35.1-43.9 [facility] Comment on above: Performed By: #### L 100.0100 ####[facility] [address] [place], [address] WBC (Leukocytes) 14.6 10*3/uL High 4.4-11.0 [facility] Comment on above: Performed By: #### L 100.0100 ####[facility] [address] [place], [address] Chest 1 View (Portable)on Chest 1 View (Portable) [facility] [address] [place] [address]Waifm 1 View (Portable)MR#: [id number] Acct: [id number]: KVNGSUSAN A Rep #: [id number]: 1955 F 62 From: Aravind Hernandez MDPCP: Cee Christianson MD Status: REG ERStudy: Chest 1 View (Portable) Date of Exam: 07/17/17Exam# [id number] Ordering Dr: Mendoza Kline MDSTUDY: X-RAY CHESTREASON [...] tissuestructures of the upper abdomen. ORDER #: [id number] RAD/Chest 1 View (Portable)IMPRESSION:Degen erative changes, as described above. No demonstrated acutecardiopulmonary process.Electronically Signed:Aravind Hernandez MD at 16:32 ESTTel , Service support , CJ: Cee Christianson MD; Mendoza Kline MD Equipment Installer:Signed Normal [facility] Emergency Department Summary on 07-17-2017 Emergency Department Summary [facility] [address] [place], [place] [address]Vsgqsmyab Department Euodiaz54/02/17 1250MR#: [id number] Acct: [id number]: SUSAN CALDERON Rep #: [id number]: 1955 62 From: Kamini [...] is soft mildly tender with no rebound. Francisca intact with surrounding erythema andpurulent drainage.Extremities are unremarkable.Skin is warm and dry.Remainder of exam is unremarkable.Emergency Department Course and Treatment: CBC shows a white count of 14.6. CT abd/pelvisshows fluid collection with possible abscess. Discussed with Dr Kline who will evaluate thepatient in the ED.Disposition: per Dr Brewstermpression: Post operative wound infectionThis note was generated with [employer] dictation software. It may contain incorrect words,spelling, [...] your Primary Care Provider. Call [facility] ([phone])or report to the closest Emergency Room.Call 911 if necessary.07/17/17 1512 Date Kamini [facility] Signature (If Indicated): Date CC: Cee Christianson MD Normal [facility] History and Physical Examon 07-17-2017 History and Physical Exam [facility] Records [address] [place] [address]Tjivfrk and Tzfwvkyi90/02/17 1613MR#: [id number] Acct: [id number]: SUSAN CALDERON Rep #: [id number]: 1955 62 [...] with iodoform gauze.07/17/17 1622 Date Mendoza Kline [facility] Signature: Date (if applicable)CC: Cee Christianson MD; Mendoza Kline MD Signed Normal [facility] History and Physical Exam [facility] Records [address] [place] [address]Dpasebb and Hotubept25/02/17 1618MR#: [id number] Acct: [id number]: SUSAN CALDERON Rep #: [id number]: 1955 62 [...] No pertinent psych hxGYN History: No pertinent PRINCIPAL SYSTEMS ARCHITECT historySmoking Status: Current some day smoker- *Family [...] at the umbilicus and along themidline incision. [place] were removed above and below the incision [...] Christianson MD; Mendoza Kline MD Signed Normal [facility] Basic Metabolic Profile (BMP )on 07-15-2017 BUN (urea nitrogen) 11.9 RATIO Normal 10-20 [facility] Comment on above: Performed By: #### L 500.2500 ####[facility] [address] [place], [address] Calcium 8.1 mg/dL Low 8.5-10.1 [facility] Comment on above: Performed By: #### L 500.2500 ####[facility] [address] [facility] [address] Chloride 102 mmol/L Normal 98-107 [facility] Comment on above: Performed By: #### L 500.2500 ####[facility] [address] [facility] [address] CO2 25.0 mmol/L Normal 21.0-32.0 [facility] Comment on above: Performed By: #### L 500.2500 ####[facility] [address] [place], [address] Creatinine 0.34 mg/dL Low 0.55-1.02 [facility] Comment on above: Result Comment: The validity of the calculated GFR AND GFRAA in patients over70 years has not been determined. Clinical correlation isessential. Performed By: #### L 500.2500 ####[facility] [address] [place], [address] eGFR (non-black) 210 mL/min/{1.73_m2} Normal >60 [facility] Comment on above: Result Comment: Non- GFR Calc Performed By: #### L 500.2500 ####[facility] [address] [place], [address] eGFR (non-black) 254 mL/min/{1.73_m2} Normal >60 [facility] Comment on above: Result Comment: Afri can Vincentian GFR Calc Performed By: #### L 500.2500 ####[facility] [address] [place], [address] Estimated CRCL 158.55 ml/min Normal [facility] Comment on above: Performed By: #### L 500.2500 ####[facility] [address] [place], [address] GAP 10 Normal 5-15 [facility] Comment on above: Performed By: #### L 500.2500 ####[facility] [address] [place], [address] Glucose mass conc 77 mg/dL Normal 70-110 [facility] Comment on above: Performed By: #### L 500.2500 ####[facility] [address] [place], [address] Potassium molar conc 4.3 mmol/L Normal 3.5-5.1 [facility] Comment on above: Result Comment: Mode rate Hemolysis, Result may be falsely increased. Performed By: #### L 500.2500 ####[facility] [address] [place], [address] Sodium 137 mmol/L Normal 136-145 [facility] Comment on above: Performed By: #### L 500.2500 ####[facility] [address] [place], [address] Urea nitrogen 4 mg/dL Low 7-18 [facility] Comment on above: Performed By: #### L 500.2500 ####[facility] [address] [place], [address] Discharge Instructionon 06-18 Discharge Instruction [facility] [address] [place], [place] [address]Tlwesewej Jkcldygaxtc38/30/17 1617MR#: [id number] Acct: [id number]: SUSAN CALDERON Rep #: [id number]: 1955 62 [...] your Primary Care Provider. Call [facility] ([phone])or report to the closest Emergency Room.Call 911 if necessary.07/15/17 1648 Date Stefano Garcia [facility] Signature (If Indicated): Date CC: Cee Christianson MD Normal [facility] Emergency Department Summary on 07-15-2017 Emergency Department Summary [facility] [address] [place] [place] [address]Afnmrqzds Department Fnisjuc31/30/17 1613MR#: [id number] Acct: [id number]: SUSAN CALDERON Rep #: [id number]: 1955 62 From: Stefano Garcia MDPCP: Cee Christianson MD Status: DEP ER- ER Visit SummaryDate of Service: 07/15/17Chief Complaint: Lower leg swellingHistory of Present Illness: The patient is a 62 F [facility] with a partial small [...] small bowel resectionThis note was generated with [employer] dictation software. It may contain incorrect words,spelling, and punctuation that were not noted in review of the chart prior to signingED Disposition- Plan for ED Patient:Chief Complaint: EdemaReferrals:Amanda Christianson MD [Primary Care Provider] -What to do if you have ProblemsFor any increased pain, shortness of breath, bleeding, nausea or vomiting, chest pain, or anyunexpected problems, contact your Primary Care Provider. Call [employer] [facility] ([phone])or report to the closest Emergency Room.Call 911 if necessary.07/15/17 2934 Date Stefano Garcia [facility] Signature (If Indicated): Date CC: Cee Christianson MD Normal [facility] Discharge Instructionon 06-17 Discharge Instruction [facility] [address] [place], [place] [address]Ujpsdmmcgeke for Home/Discharge Fnrsuumiwynt44/29/17 1139MR#: [id number] Acct: [id number]: SUSAN CALDERON Rep #: [id number]: 1955 62 [...] as scheduledProposed Discharge Date: 07/14/1711/29/17 1331 Date Ama Paintsil MDCC: Susan June MD; Cee Christianson MD Normal [facility] Discharge Summaryon 07-14-20 Discharge Summary [facility] [address]br[address] [facility] [place], [place] [address]Rahijnuuy Bsdlltt05/29/17 1331MR#: [id number] Acct: [id number]: SUSAN CALDERON Rep #: [id number]: 1955 62 From: [place] Paintsil MDPCP: Cee Christianson MD Status: DIS IN YLocation: MS2 [id number] Date and DiagnosisDate of Admission: 07/07/17Date of [...] Signed:Deanna Beltran MD at 17:33 ESTTel Direct: [phone], Service support , Nkedvzn/Pelvis CT 07/07/17 18:52IMPRESSION:The fluid-filled tubular structures in [...] Signed:Deanna Beltran MD at 22:30 ESTTel Direct: [phone], Service support , BFO X-Ray 07/07/17 22:58IMPRESSION:The tip of the nasogastric tube is in the expected location of the body ofthe stomach.Electronically Signed:Deanna Beltran MD at 23:55 ESTTel Direct: [phone], Service support , GXW X-Ray 07/08/17 05:55IMPRESSION:Unremarkab le abdominal bowel gas pattern.Electronically Signed:Andrei Prather DO at 9:51 ESTTel , Service support , Qsdee Abdomen Series 07/09/17 07:27IMPRESSION:Enteric tube is visualized with the tip in the distal portion of thestomach.Gas pattern is unremarkable.Mild increased markings at the lung bases suggestive of mild basilaratelectasis.Electro nically Signed:Mikal Brambila MD at 9:43 ESTTel [phone], Service support , Pdlchnd X-Ray 07/09/17 14:00IMPRESSION:Mildly dilated small bowel loops in the upper abdomen with air-fluidlevels. This has worsened since prior study.Electronically Signed:Mikal Brambila MD at 15:36 [facility] [phone], Service support , Kqcojyw, Dr. JuneOperations: - - Exploratory laparotomy, adhesiolysis, [...] PRN PRN #[id number] Reason: Mod-Severe Pain (4-05/25)Primary Care Physician:Cee Christianson MD [Primary Care Provider] -Please follow up with your Primary Care Physician in: within 1-2 weeksPlease Follow Up With: Susan June MDWhen: as scheduledDisposition: HomeMinutes spent on discharge:: 25Patient Condition:: StableMeaningful Use InfoMeaningful Use Diagnoses (Choose all that apply): None vasehgdqiw34/29/17 1804 Date Mayra Lloyd MDCosigner Signature (if applicable): Date CC: Mayra Lloyd MD; Cee Christianson MD Signed Normal [facility] Basic Metabolic Profile (BMP )on 07-12-2017 BUN (urea nitrogen) 34.5 RATIO High 10-20 [facility] Comment on above: Performed By: #### L 500.2500 ####[facility] [address] [place], [address] Calcium 7.6 mg/dL Low 8.5-10.1 [facility] Comment on above: Performed By: #### L 500.2500 ####[facility] [address] [place], [address] Chloride 114 mmol/L High 98-107 [facility] Comment on above: Performed By: #### L 500.2500 ####[facility] [address] [place], [address] CO2 21.0 mmol/L Normal 21.0-32.0 [facility] Comment on above: Performed By: #### L 500.2500 ####[facility] [address] [place], [address] Creatinine 0.26 mg/dL Low 0.55-1.02 [facility] Comment on above: Result Comment: The validity of the calculated GFR AND GFRAA in patients over70 years has not been determined. Clinical correlation isessential. Performed By: #### L 500.2500 ####[facility] [address] [place], [address] eGFR (non-black) 280 mL/min/{1.73_m2} Normal >60 [facility] Comment on above: Result Comment: Non- GFR Calc Performed By: #### L 500.2500 ####[facility] [address] [place], [address] eGFR (non-black) 339 mL/min/{1.73_m2} Normal >60 [facility] Comment on above: Result Comment: Afri can Vincentian GFR Calc Performed By: #### L 500.2500 ####[facility] [address] [place], [address] Estimated CRCL 207.33 ml/min Normal [facility] Comment on above: Performed By: #### L 500.2500 ####[facility] [address] [place], [address] GAP 9 Normal 5-15 [facility] Comment on above: Performed By: #### L 500.2500 ####[facility] [address] [place], [address] Glucose mass conc 82 mg/dL Normal 70-110 [facility] Comment on above: Performed By: #### L 500.2500 ####[facility] [address] [place], [address] Potassium molar conc 3.5 mmol/L Normal 3.5-5.1 [facility] Comment on above: Performed By: #### L 500.2500 ####[facility] [address] [place], [address] Sodium 144 mmol/L Normal 136-145 [facility] Comment on above: Performed By: #### L 500.2500 ####[facility] [address] [place], [address] Urea nitrogen 9 mg/dL Normal 7-18 [facility] Comment on above: Performed By: #### L 500.2500 ####[facility] [address] [place], [address] CBC-Complete Blood Cnt No Di radha 07-12-2017 Erythrocyte distribution width Auto Ratio (RBC) 12.3 % Normal 11.6-14.6 [facility] Comment on above: Performed By: #### L 500.2500 ####[facility] [address] [place], [address] Erythrocytes (RBC) 2.74 M/mm3 Low 4.2-5.4 [facility] Comment on above: Performed By: #### L 500.2500 ####[facility] [address] [place], [address] Hematocrit (HCT) 28.1 % Low 37-47 [facility] Comment on above: Performed By: #### L 500.2500 ####[facility] [address] [place], [address] Hemoglobin mass conc (Bld) 9.0 g/dL Low 12.0-15.0 [facility] Comment on above: Performed By: #### L 500.2500 ####[facility] [address] [place], [address] MCH 32.8 pg High 27.0-32.0 [facility] Comment on above: Performed By: #### L 500.2500 ####[facility] [address] [place], [address] MCHC mass conc (RBC) 32.0 g/gl Normal 32-36 [facility] Comment on above: Performed By: #### L 500.2500 ####[facility] [address] [place], [address] MCV 102.6 fL High 81-99 [facility] Comment on above: Performed By: #### L 500.2500 ####[facility] [address] [place], [address] Platelet mean volume (PMV) 9.0 fL Normal 6.2-12.0 [facility] Comment on above: Performed By: #### L 500.2500 ####[facility] [address] [place], [address] Platelets 292 10*3/uL Normal 150-450 [facility] Comment on above: Performed By: #### L 500.2500 ####[facility] [address] [place], [address] RDW SD 46.4 fl High 35.1-43.9 [facility] Comment on above: Performed By: #### L 500.2500 ####[facility] [address] [place], [address] WBC (Leukocytes) 10.3 10*3/uL Normal 4.4-11.0 [facility] Comment on above: Performed By: #### L 500.2500 ####[facility] [address] [place], [address] Magnesiumon 07-12-2017 Magnesium 2.0 mg/dL Normal 1.8-2.4 [facility] Comment on above: Performed By: #### L 500.2500 ####[facility] [address] [place], [address] Basic Metabolic Profile (BMP )on 07-11-2017 BUN (urea nitrogen) 23.7 RATIO High 10-20 [facility] Comment on above: Performed By: #### L 500.2500 ####[facility] [address] [place], [address] Calcium 7.6 mg/dL Low 8.5-10.1 [facility] Comment on above: Performed By: #### L 500.2500 ####[facility] [address] [place], [address] Chloride 110 mmol/L High 98-107 [facility] Comment on above: Performed By: #### L 500.2500 ####[facility] [address] [place], [address] CO2 20.0 mmol/L Low 21.0-32.0 [facility] Comment on above: Performed By: #### L 500.2500 ####[facility] [address] [place], [address] Creatinine 0.38 mg/dL Low 0.55-1.02 [facility] Comment on above: Result Comment: The validity of the calculated GFR AND GFRAA in patients over70 years has not been determined. Clinical correlation isessential. Performed By: #### L 500.2500 ####[facility] [address] [place], [address] eGFR (non-black) 221 mL/min/{1.73_m2} Normal >60 [facility] Comment on above: Result Comment: Afri can Vincentian GFR Calc Performed By: #### L 500.2500 ####[facility] [address] [place], [address] eGFR (non-black) 182 mL/min/{1.73_m2} Normal >60 [facility] Comment on above: Result Comment: Non- GFR Calc Performed By: #### L 500.2500 ####[facility] [address] [place], [address] Estimated CRCL 141.86 ml/min Normal [facility] Comment on above: Performed By: #### L 500.2500 ####[facility] [address] [place], [address] GAP 11 Normal 5-15 [facility] Comment on above: Performed By: #### L 500.2500 ####[facility] [address] [place], [address] Glucose mass conc 115 mg/dL High 70-110 [facility] Comment on above: Result Comment: Fast ing Glucose result from 110 to <126 mg/dLsuggests IMPAIRED HOMEOSTASIS per A.D.A. criteria. Performed By: #### L 500.2500 ####[facility] [address] [place], [address] Potassium molar conc 3.8 mmol/L Normal 3.5-5.1 [facility] Comment on above: Performed By: #### L 500.2500 ####[facility] [address] [place], [address] Sodium 141 mmol/L Normal 136-145 [facility] Comment on above: Performed By: #### L 500.2500 ####[facility] [address] [place], [address] Urea nitrogen 9 mg/dL Normal 7-18 [facility] Comment on above: Performed By: #### L 500.2500 ####[facility] [address] [place], [address] Basic Metabolic Profile (BMP )on 07-10-2017 BUN (urea nitrogen) 18.1 RATIO Normal 10-20 [facility] Comment on above: Performed By: #### L 500.2500 ####[facility] [address] [place], [address] Calcium 7.5 mg/dL Low 8.5-10.1 [facility] Comment on above: Performed By: #### L 500.2500 ####[facility] [address] [place], [address] Chloride 107 mmol/L Normal 98-107 [facility] Comment on above: Performed By: #### L 500.2500 ####[facility] [address] [place], [address] CO2 19.0 mmol/L Low 21.0-32.0 [facility] Comment on above: Performed By: #### L 500.2500 ####[facility] [address] [place], [address] Creatinine 0.39 mg/dL Low 0.55-1.02 [facility] Comment on above: Result Comment: The validity of the calculated GFR AND GFRAA in patients over70 years has not been determined. Clinical correlation isessential. Performed By: #### L 500.2500 ####[facility] [address] [place], [address] eGFR (non-black) 215 mL/min/{1.73_m2} Normal >60 [facility] Comment on above: Result Comment: Afri can Vincentian GFR Calc Performed By: #### L 500.2500 ####[facility] [address] [place], [address] eGFR (non-black) 178 mL/min/{1.73_m2} Normal >60 [facility] Comment on above: Result Comment: Non- GFR Calc Performed By: #### L 500.2500 ####[facility] [address] [place], [address] Estimated CRCL 138.22 ml/min Normal [facility] Comment on above: Performed By: #### L 500.2500 ####[facility] [address] [place], [address] GAP 11 Normal 5-15 [facility] Comment on above: Performed By: #### L 500.2500 ####[facility] [address] [place], [address] Glucose mass conc 120 mg/dL High 70-110 [facility] Comment on above: Result Comment: Fast ing Glucose result from 110 to <126 mg/dLsuggests IMPAIRED HOMEOSTASIS per A.D.A. criteria. Performed By: #### L 500.2500 ####[facility] [address] [place], [address] Potassium molar conc 3.9 mmol/L Normal 3.5-5.1 [facility] Comment on above: Performed By: #### L 500.2500 ####[facility] [address] [place], [address] Sodium 137 mmol/L Normal 136-145 [facility] Comment on above: Performed By: #### L 500.2500 ####[facility] [address] [place], [address] Urea nitrogen 7 mg/dL Normal 7-18 [facility] Comment on above: Performed By: #### L 500.2500 ####[facility] [address] [place], [address] CBC-Complete Blood Cnt No Di ffon 07-10-2017 Erythrocyte distribution width Auto Ratio (RBC) 12.4 % Normal 11.6-14.6 [facility] Comment on above: Performed By: #### L 500.2500 ####[facility] [address] [place], [address] Erythrocytes (RBC) 3.53 M/mm3 Low 4.2-5.4 [facility] Comment on above: Performed By: #### L 500.2500 ####[facility] [address] [place], [address] Hematocrit (HCT) 36.0 % Low 37-47 [facility] Comment on above: Performed By: #### L 500.2500 ####[facility] [address] [place], [address] Hemoglobin mass conc (Bld) 11.6 g/dL Low 12.0-15.0 [facility] Comment on above: Performed By: #### L 500.2500 ####[facility] [address] [place], [address] MCH 32.9 pg High 27.0-32.0 [facility] Comment on above: Performed By: #### L 500.2500 ####[facility] [address] [place], [address] MCHC mass conc (RBC) 32.2 g/gl Normal 32-36 [facility] Comment on above: Performed By: #### L 500.2500 ####[facility] [address] [place], [address] MCV 102.0 fL High 81-99 [facility] Comment on above: Performed By: #### L 500.2500 ####[facility] [address] [place], [address] Platelet mean volume (PMV) 10.0 fL Normal 6.2-12.0 [facility] Comment on above: Performed By: #### L 500.2500 ####[facility] [address] [place], [address] Platelets 291 10*3/uL Normal 150-450 [facility] Comment on above: Performed By: #### L 500.2500 ####[facility] [address] [place], [address] RDW SD 46.2 fl High 35.1-43.9 [facility] Comment on above: Performed By: #### L 500.2500 ####[facility] [address] [place], [address] WBC (Leukocytes) 12.6 10*3/uL High 4.4-11.0 [facility] Comment on above: Performed By: #### L 500.2500 ####[facility] [address] [place], [address] [employer] Inc Decub and/or Erecton 07-09-2017 [employer] Decub and/or Erect [facility] [address] [place], [place] [address] Decub and/or ErectMR#: [id number] Acct: [id number]: ARIN CALDERONLance Lucas Rep #: [id number]: 1955 F 62 From: Mikal Brambila MDPCP: Cee Christianson MD Status: ADM INStudy: Abd Inc Decub and/or Erect Date of Exam: 07/09/17Exam# [id number] Ordering Dr: Susan June MDSTUDY: X-RAY - [...] fusion in the lowerlumbar spine. ORDER #: [id number] RAD/[employer]d [employer] Decub and/or ErectIMPRESSION:Mildly dilated small bowel loops in the upper abdomen with air-fluidlevels. This has worsened since prior study.Electronically Signed:Mikal Brambila MD at 15:36 ESTTel [phone], Service support , CU: Susan June MD; Cee Christianson MD Equipment Installer:Signed Normal [facility] Acute Abd Inc Chest (Portabl e)on 07-09-2017 Acute [employer] Chest (Portable) [facility] [address] [place], [place] [address]Mlyaw [employer] Chest (Portable)MR#: [id number] Acct: [id number]: SUSAN CALDERON Rep #: [id number]: 1955 F 62 From: Mikal Brambila MDPCP: Cee Christianson MD Status: ADM INStudy: Acute [employer] Chest (Portable) Date of Exam: 07/09/17Exam# [id number] Ordering Dr: Maycol Tubbs MDSTUDY: X-RAY - [...] disc space narrowing and spondylosis. ORDER #: [id number] RAD/Acute [employer] Chest (Portable)IMPRESSION:Enter ic tube is visualized with the tip in the distal portion of thestomach.Gas pattern is unremarkable.Mild increased markings at the lung bases suggestive of mild basilaratelectasis.Electro nically Signed:Mikal Brambila MD at 9:43 ESTTel [phone], Service support , VW: Maycol Tubbs MD; Cee Christianson MD Equipment Installer:Signed Normal [facility] Basic Metabolic Profile (BMP )on 07-09-2017 BUN (urea nitrogen) 9.9 RATIO Low 10-20 [facility] Comment on above: Performed By: #### L 100.0100 ####[facility] [address] [place], [address] Calcium 8.1 mg/dL Low 8.5-10.1 [facility] Comment on above: Performed By: #### L 100.0100 ####[facility] [address] [place], [address] Chloride 100 mmol/L Normal 98-107 [facility] Comment on above: Performed By: #### L 100.0100 ####[facility] [address] [place], [address] CO2 24.0 mmol/L Normal 21.0-32.0 [facility] Comment on above: Performed By: #### L 100.0100 ####[facility] [address] [place], [address] Creatinine 0.40 mg/dL Low 0.55-1.02 [facility] Comment on above: Result Comment: The validity of the calculated GFR AND GFRAA in patients over70 years has not been determined. Clinical correlation isessential. Performed By: #### L 100.0100 ####[facility] [address] [place], [address] eGFR (non-black) 206 mL/min/{1.73_m2} Normal >60 [facility] Comment on above: Result Comment: Afri can Vincentian GFR Calc Performed By: #### L 100.0100 ####[facility] [address] [place], [address] eGFR (non-black) 170 mL/min/{1.73_m2} Normal >60 [facility] Comment on above: Result Comment: Non- GFR Calc Performed By: #### L 100.0100 ####[facility] [address] [place], [address] Estimated CRCL 134.76 ml/min Normal [facility] Comment on above: Performed By: #### L 100.0100 ####[facility] [address] [place], [address] GAP 8 Normal 5-15 [facility] Comment on above: Performed By: #### L 100.0100 ####[facility] [address] [place], [address] Glucose mass conc 107 mg/dL Normal 70-110 [facility] Comment on above: Performed By: #### L 100.0100 ####[facility] [address] [place], [address] Potassium molar conc 4.1 mmol/L Normal 3.5-5.1 [facility] Comment on above: Performed By: #### L 100.0100 ####[facility] [address] [place], [address] Sodium 132 mmol/L Low 136-145 [facility] Comment on above: Performed By: #### L 100.0100 ####[facility] [address] [place], [address] Urea nitrogen 4 mg/dL Low 7-18 [facility] Comment on above: Performed By: #### L 100.0100 ####[facility] [address] [place], [address] CBC-Complete Blood Cnt No Di ffon 07-09-2017 Erythrocyte distribution width Auto Ratio (RBC) 12.1 % Normal 11.6-14.6 [facility] Comment on above: Performed By: #### L 100.0100 ####[facility] [address] [place], [address] Erythrocytes (RBC) 3.62 M/mm3 Low 4.2-5.4 [facility] Comment on above: Performed By: #### L 100.0100 ####[facility] [address] [place], [address] Hematocrit (HCT) 36.6 % Low 37-47 [facility] Comment on above: Performed By: #### L 100.0100 ####[facility] [address] [place], [address] Hemoglobin mass conc (Bld) 12.0 g/dL Normal 12.0-15.0 [facility] Comment on above: Performed By: #### L 100.0100 ####[facility] [address] [place], [address] MCH 33.1 pg High 27.0-32.0 [facility] Comment on above: Performed By: #### L 100.0100 ####[facility] [address] [place], [address] MCHC mass conc (RBC) 32.8 g/gl Normal 32-36 [facility] Comment on above: Performed By: #### L 100.0100 ####[facility] [address] [place], [address] MCV 101.1 fL High 81-99 [facility] Comment on above: Performed By: #### L 100.0100 ####[facility] [address] [place], [address] Platelet mean volume (PMV) 9.6 fL Normal 6.2-12.0 [facility] Comment on above: Performed By: #### L 100.0100 ####[facility] [address] [place], [address] Platelets 265 10*3/uL Normal 150-450 [facility] Comment on above: Performed By: #### L 100.0100 ####[facility] [address] [place], [address] RDW SD 44.9 fl High 35.1-43.9 [facility] Comment on above: Performed By: #### L 100.0100 ####[facility] [address] [place], [address] WBC (Leukocytes) 16.0 10*3/uL High 4.4-11.0 [facility] Comment on above: Performed By: #### L 100.0100 ####[facility] [address] [place], [address] COLON (NO NEOPLASM)on 2016 COLON (NO NEOPLASM) Patient: JUSTICE CALDERON : 1955 (62/F) Acct Num: [id number] Phys: Mayra Lloyd MD Unit Num: [id number] Loc: MS2 FY663-4 Specimen: [id number] Received: 07/12/17 - 1309 Spec Type: COLON [...] Also received in the container is a wqsx-ud-nixa anastomosis of bowel measuring 4 cm in [...] and no lesion is identified in the wdxy-id-ixhw anastomosis portion ofthe bowel. The mesenteric section of the mesenteric tissue does not reveal any lesion. Tree Tapping Laborer sections are submitted in six cassettes as follows: 1 appendix, 2 small bowel with ikgi-td-jney anastomosis, 3-6 larger segment ofbowel (3 resection margins, 4 ulcerated and hemorrhagic area, central portion, 5 edematous mucosa, terminal portion and 6 mesenteric tissue). / SJ:mitch 07/13/17 TC:5 CPT: 48141, 23962 HEADER OPERATION: Diagnostic laparoscopy converted to open small bowel resection, lysisof adhesions, appendectomy PRE-OP DIAGNOSIS: Small bowel obstruction TISSUE SUBMITTED: Small bowel section and appendix MICROSCOPIC DESCRIPTION Slides are reviewed. MICROSCOPIC DIAGNOSIS Small bowel section and appendix: Larger segment of bowel with extensive ulceration, transmural congestion, hemorrhage, acute inflammation and ischemic changes (central portion), clinically small bowel obstruction. Xoyu-sf-ttvv anastomosis segment of bowel with serosal, subserosal and underlying muscularis propria with acute inflammation and edema. Appendix, acute periappendicitis. SJ:mitch 07/14/17 Signed Charlie Bess 07/14/17 Normal [facility] Comment on above: Performed By: #### L 500.2500 ####[facility] [address] [place], [address] Consultationon 07-09-2017 Consultation [facility] [address] [place], [place] [address]Evzirsuwsgsn42/23/17 0852MR#: [id number] Acct: [id number]: SUSAN CALDERON Rep #: [id number]: 1955 62 From: Susan June MDPCP: Cee Christianson MD Status: ADM IN YLocation: MS2 CT167-7- ConsultDate of Consult: 07/08/17- Reason for ConsultChief [...] after this '03Heel spurs surgery - bilateralColonoscopy 2014Medications:lisinopril atenololsingulairAllergies :penicillinsSocial history:TOB use deniesETOH use deniesReview [...] no further questions..07/09/17 1652 Date Susan June MDCosigner Signature (if applicable): Date CC: Susan June MD; Cee Christianson MD Signed Normal [facility] Lactic Acidon 07-09-2017 Lactate 0.8 mmol/L Normal 0.4-2.0 [facility] Comment on above: Order Comment: Yes/N o query for Sepsis Lactate Rule Y Performed By: #### L 100.0100 ####[facility] [address] [place], [place], [address] Magnesiumon 07-09-2017 Magnesium 2.0 mg/dL Normal 1.8-2.4 [facility] Comment on above: Performed By: #### L 100.0100 ####[facility] [address] [place], [place], [address] Operative Reporton 7 Operative Report [facility] [address] [place], [place] [address]Jybtenomp Eglkpd69/24/17 1844MR#: [id number] Acct: [id number]: SUSAN CALDERON Rep #: [id number]: 1955 62 From: Ronnie Reaves MDPCP: Cee Christianson MD Status: ADM IN YLocation: MS2 BC941-4Fpyiqa of OperationDate of Procedure: 07/09/17Pre-Operative Diagnosis: K 50.812 small bowel obstructionPost-Operative Diagnosis: SameSurgery/Procedure Performed:: Assisted with lysis of adhesionsOR Liquor Clerk: NoneOR Liquor Clerk: Ronnie Reaves is the surgeonType of Anesthesia:: [...] ordered?: NoReason prophylaxis not ordered:: Treatment Not Atzucgaar46/24/17 142 Date Ronnie Reaves MDCC: Ronnie Reaves MD; Susan June MD; Cee Christianson MD Signed Normal [facility] Abdomen Single Viewon 2016 Abdomen Single View [facility] [address] [place] [address]Pqhaqbg Single ViewMR#: [id number] Acct: [id number]: KVNGSUSAN Lucas Rep #: [id number]: 1955 F 62 From: Andrei Prather DOPCP: Cee Christianson MD Status: ADM INStudy: Abdomen Single View Date of Exam: 07/08/17Exam# [id number] Ordering Dr: Nanci Casillas LSTUDY: X-RAY - [...] are seen within thelumbar spine. ORDER #: [id number] RAD/Abdomen Single ViewIMPRESSION:Unremarkabl e abdominal bowel gas pattern.Electronically Signed:Andrei Prather, [id number] at 9:51 ESTTel , Service support , ZS: Nanci Casillas; Cee Christianson MD Equipment Installer:Signed Normal [facility] Abdomen Single View (Portabl e)on 07-08-2017 Abdomen Single View (Portable) [facility] [address] [address]Nroklrn Single View (Portable)MR#: [id number] Acct: [id number]: SUSAN CALDERON Rep #: [id number]: 1955 F 62 From: Deanna Beltran MDPCP: Cee Christianson MD Status: ADM INStudy: Abdomen Single View (Portable) Date of Exam: 07/07/17Exam# [id number] Ordering Dr: Deanna Adhikari MDSTUDY: X-RAY - [...] in the lower lumbar spine. ORDER #: [id number] RAD/Abdomen Single View (Portable)IMPRESSION:The tip of the nasogastric tube is in the expected location of the body ofthe stomach.Electronically Signed:Deanna Beltran MD at 23:55 ESTTel Direct: [phone], Service support , TV: Deanna Adhikari MD; Cee Christianson MD Equipment Installer:Signed Normal [facility] Basic Metabolic Profile (BMP )on 07-08-2017 BUN (urea nitrogen) 12.7 RATIO Normal 10-20 [facility] Comment on above: Performed By: #### L 500.2500 ####[facility] [address] [place], [address] Calcium 7.9 mg/dL Low 8.5-10.1 [facility] Comment on above: Performed By: #### L 500.2500 ####[facility] [address] [place], [address] Chloride 96 mmol/L Low 98-107 [facility] Comment on above: Performed By: #### L 500.2500 ####[facility] [address] [place], [address] CO2 24.0 mmol/L Normal 21.0-32.0 [facility] Comment on above: Performed By: #### L 500.2500 ####[facility] [address] [place], [address] Creatinine 0.40 mg/dL Low 0.55-1.02 [facility] Comment on above: Result Comment: The validity of the calculated GFR AND GFRAA in patients over70 years has not been determined. Clinical correlation isessential. Performed By: #### L 500.2500 ####[facility] [address] [place], [address] eGFR (non-black) 174 mL/min/{1.73_m2} Normal >60 [facility] Comment on above: Result Comment: Non- GFR Calc Performed By: #### L 500.2500 ####[facility] [address] [place], [address] eGFR (non-black) 210 mL/min/{1.73_m2} Normal >60 [facility] Comment on above: Result Comment: Afri can Vincentian GFR Calc Performed By: #### L 500.2500 ####[facility] [address] [place], [address] Estimated CRCL 134.76 ml/min Normal [facility] Comment on above: Performed By: #### L 500.2500 ####[facility] [address] [place], [address] GAP 9 Normal 5-15 [facility] Comment on above: Performed By: #### L 500.2500 ####[facility] [address] [place], [address] Glucose mass conc 113 mg/dL High 70-110 [facility] Comment on above: Result Comment: Fast ing Glucose result from 110 to <126 mg/dLsuggests IMPAIRED HOMEOSTASIS per A.D.A. criteria. Performed By: #### L 500.2500 ####[facility] [address] [place], [address] Potassium molar conc 4.0 mmol/L Normal 3.5-5.1 [facility] Comment on above: Performed By: #### L 500.2500 ####[facility] [address] [place], [address] Sodium 129 mmol/L Low 136-145 [facility] Comment on above: Performed By: #### L 500.2500 ####[facility] [address] [place], [address] Urea nitrogen 5 mg/dL Low 7-18 [facility] Comment on above: Performed By: #### L 500.2500 ####[facility] [address] [place], [address] CBC W/Diff, Automatedon - Absolute Neut 9.8 X10 3/uL High 2.0-7.7 [facility] Comment on above: Performed By: #### L 100.0100 ####[facility] [address] [place], [address] Basophils/100 WBC Auto (Bld) 0.1 % Normal 0-1 [facility] Comment on above: Performed By: #### L 100.0100 ####[facility] [address] [place], [address] Eosinophils/100 leukocytes 0.4 % Normal 0-5 [facility] Comment on above: Performed By: #### L 100.0100 ####[facility] [address] [place], [address] Erythrocyte distribution width Auto Ratio (RBC) 11.7 % Normal 11.6-14.6 [facility] Comment on above: Performed By: #### L 100.0100 ####[facility] [address] [place], [address] Erythrocytes (RBC) 3.81 M/mm3 Low 4.2-5.4 [facility] Comment on above: Performed By: #### L 100.0100 ####[facility] [address] [place], [address] Hematocrit (HCT) 37.5 % Normal 37-47 [facility] Comment on above: Performed By: #### L 100.0100 ####[facility] [address] [place], [address] Hemoglobin mass conc (Bld) 12.6 g/dL Normal 12.0-15.0 [facility] Comment on above: Performed By: #### L 100.0100 ####[facility] [address] [place], [address] IM GRAN % 0.100 % Normal 0.0-0.9 [facility] Comment on above: Result Comment: IG% - Immature Granulocytes (promyelocytes, myelocytes andmetamyelocytes) > 1% indicates that a LEFT SHIFT is Present. Performed By: #### L 100.0100 ####[facility] [address] [place], [address] Lymphocytes 1.38 X10 3/ul Normal 0.83-4.51 [facility] Comment on above: Performed By: #### L 100.0100 ####[facility] [address] [place], [address] Lymphocytes/100 leukocytes 11.8 % Low 19-41 [facility] Comment on above: Performed By: #### L 100.0100 ####[facility] [address] [place], [address] MCH 33.1 pg High 27.0-32.0 [facility] Comment on above: Performed By: #### L 100.0100 ####[facility] [address] [place], [address] MCHC mass conc (RBC) 33.6 g/gl Normal 32-36 [facility] Comment on above: Performed By: #### L 100.0100 ####[facility] [address] [place], [address] MCV 98.4 fL Normal 81-99 [facility] Comment on above: Performed By: #### L 100.0100 ####[facility] [address] [place], [address] Monocytes/100 leukocytes 4.2 % Normal 0-10 [facility] Comment on above: Performed By: #### L 100.0100 ####[facility] [address] [place], [address] Neutrophils/100 WBC Auto (Bld) 83.4 % High 47-70 [facility] Comment on above: Performed By: #### L 100.0100 ####[facility] [address] [place], [address] Platelet mean volume (PMV) 9.5 fL Normal 6.2-12.0 [facility] Comment on above: Performed By: #### L 100.0100 ####[facility] [address] [place], [address] Platelets 273 10*3/uL Normal 150-450 [facility] Comment on above: Performed By: #### L 100.0100 ####[facility] [address] [place], [address] RDW SD 42.0 fl Normal 35.1-43.9 [facility] Comment on above: Performed By: #### L 100.0100 ####[facility] [address] [place], [address] WBC (Leukocytes) 11.7 10*3/uL High 4.4-11.0 [facility] Comment on above: Performed By: #### L 100.0100 ####[facility] [facility] [address] [place], [address] Emergency Department Summary on 07-08-2017 Emergency Department Summary [facility] [id number] [facility] [place], [place] [address]Iclnhiotb Department Lncuesx03/22/17 2301MR#: [id number] Acct: [id number]: SUSAN CALDERON Rep #: [id number]: 1955 62 From: Deanna Adhikari MDPCP: Cee Christianson MD Status: ADM IN- ER [...] 202/89, temperature 97.8, heart rate 62, respiratory omjj51Thfj neck examination is unremarkable.Heart is regular rate [...] Hyponatremia3. Urinary retentionThis note was generated with [employer] dictation software. It may contain incorrect words,spelling, [...] your Primary Care Provider. Call [facility] ([phone])or report to the closest Emergency Room.Call 911 if necessary.07/07/17 8378 Date Deanna [facility] Signature (If Indicated): Date CC: Cee Christianson MD [facility] Hemoglobin A1con 07-08-2017 Hemoglobin A1c/Hemoglobin.total mass fraction (Bld) 4.8 % Normal 4.2-6.3 [facility] Comment on above: Order Comment: ADDED TO BLOOD DRAWN IN ER Performed By: #### L 501.9985 ####[facility] [address] [place], [address] History and Physical Examon 07-08-2017 History and Physical Exam [facility] [id number] [place], [place] [address]Ynbaelc and Eylqqntm86/22/17 2311#: [id number] Acct: [id number]: SUSAN CALDERON Rep #: [id number]: 1955 62 From: Nanci Petersen: Cee Christianson MD Status: ADM IN YLocation: MS2 [id number] List(1) HTN (hypertension)Status: ChronicQualifiers:Hyperten mason type: essential [...] Allergic Rhinitis,Tobacco use who presents to the [facility] ED on 07/07/17 w/ history of mild difficulty urinating withno dysuria but decreased UOP 1 week prior w/ decreased oral intake and onset over the pyuw59-30 hours generalized abdominal discomfort w/ nausea with emesis w/ presentation to UC w/bladder scan w/ concern for retention prompting [...] No pertinent psych hxGYN History: No pertinent PRINCIPAL SYSTEMS ARCHITECT historyLives: Spouse/ Significant OtherSmoking Status: Current every [...] Pulse Ox97.8 F 68 16 174/80 14:47 11/22/17 22:55 07/07/17 22:55 07/07/17 22:55 07/07/17 22:55Oxygen Delivery Method Room AirWeight: 181 lb 7.047 ozBody Mass Index (BMI) 29.2Laboratory Tests Past 24 HrsAssessment/PlanThe patient is a 62 y/o F w/ PMHx: HTN, HLD, GERD, Chronic Back Pain, Allergic Rhinitis,Tobacco use who presents to the [facility] ED on 07/07/17 w/ history of mild difficulty urinating withno dysuria but decreased UOP 1 week prior w/ decreased oral intake and onset over the htau01-05 hours generalized abdominal discomfort w/ nausea with emesis w/ presentation to UC w/bladder scan w/ concern for retention prompting [...] Famotidine.(7) Allergic rhinitis: Hold Singulair.(8) DVT prophylaxis: SCDBenjie.07/08/17 0128 Date Autumn L White[employer] Signature: Date (if applicable)CC: Nanci Casillas; Cee Christianson MD Signed Normal [facility] Abdomen/Pelvis WITH Contrast on 07-07-2017 Abdomen/Pelvis WITH Contrast [facility] [id number] JUST[address] ROSAS [address]Vtmunfp/Pelvis WITH ContrastMR#: [id number] Acct: [id number]: SUSAN CALDERON Rep #: [id number]: 1955 F 62 From: Deanna Beltran MDPCP: Cee Christianson MD Status: REG ERStudy: Abdomen/Pelvis WITH Contrast Date of Exam: 07/07/17Exam# [id number] Ordering Dr: Deanna Adhikari MDSTUDY: CT ABDOMEN [...] in the lower lumbar spine. ORDER #: [id number] CT/Abdomen/Pelvis WITH ContrastIMPRESSION:The fluid-filled tubular structures in [...] Signed:Deanna Beltran MD at 22:30 ESTTel Direct: [phone], Service support , CV: Deanna Adhikari MD; Cee Christianson MD Equipment Installer:Signed Normal [facility] Abdomen/Pelvis without Conto n 07-07-2017 Abdomen/Pelvis without Cont [facility] [id number] [place], [place] [address]Fimmauh/Pelvis without ContMR#: [id number] Acct: [id number]: SUSAN CALDERON Rep #: [id number]: 1955 F 62 From: Deanna Beltran MDPCP: Cee Christianson MD Status: REG ERStudy: Abdomen/Pelvis without Cont Date of Exam: 07/07/17Exam# [id number] Ordering Dr: Deanna Adhikari MDSTUDY: CT ABDOMEN [...] retrolisthesis of L3 on L4. ORDER #: [id number] CT/Abdomen/Pelvis without ContIMPRESSION:There is an elongated tubular structure in the right pelvis which can beseen with a hydrosalpinx. Differentiation from bowel is difficult withoutintravenous or oral contrast. Options for follow-up include a CT withintravenous and oral contrast or a pelvic ultrasound.There is minimal ascites in the pelvis.There is mild diverticulosis of the colon.Electronically Signed:Deanna Beltran MD at 17:33 ESTTel Direct: [phone], Service support , WR: Deanna Adhikari MD; Cee Christianson MD Equipment Installer:Signed Normal [facility] Basic Metabolic Profile (BMP )on 07-07-2017 BUN (urea nitrogen) 18.0 RATIO Normal 10-20 [facility] Comment on above: Performed By: #### L 500.2500 ####[facility] [address] [place], [address] Calcium 9.0 mg/dL Normal 8.5-10.1 [facility] Comment on above: Performed By: #### L 500.2500 ####[facility] [address] [place], [address] Chloride 94 mmol/L Low 98-107 [facility] Comment on above: Performed By: #### L 500.2500 ####[facility] [address] [place], [address] CO2 22.0 mmol/L Normal 21.0-32.0 [facility] Comment on above: Performed By: #### L 500.2500 ####[facility] [address] [place], [address] Creatinine 0.56 mg/dL Normal 0.55-1.02 [facility] Comment on above: Result Comment: The validity of the calculated GFR AND GFRAA in patients over70 years has not been determined. Clinical correlation isessential. Performed By: #### L 500.2500 ####[facility] [address] [place], [address] eGFR (non-black) 142 mL/min/{1.73_m2} Normal >60 [facility] Comment on above: Result Comment: Afri can Vincentian GFR Calc Performed By: #### L 500.2500 ####[facility] [address] [place], [address] eGFR (non-black) 117 mL/min/{1.73_m2} Normal >60 [facility] Comment on above: Result Comment: Non- GFR Calc Performed By: #### L 500.2500 ####[facility] [address] [place], [address] Estimated CRCL 96.26 ml/min Normal [facility] Comment on above: Performed By: #### L 500.2500 ####[facility] [address] [place], [address] GAP 13 Normal 5-15 [facility] Comment on above: Performed By: #### L 500.2500 ####[facility] [address] [place], [address] Glucose mass conc 117 mg/dL High 70-110 [facility] Comment on above: Result Comment: Fast ing Glucose result from 110 to <126 mg/dLsuggests IMPAIRED HOMEOSTASIS per A.D.A. criteria. Performed By: #### L 500.2500 ####[facility] [address] [place], [address] Potassium molar conc 3.6 mmol/L Normal 3.5-5.1 [facility] Comment on above: Performed By: #### L 500.2500 ####[facility] [address] [place], [address] Sodium 129 mmol/L Low 136-145 [facility] Comment on above: Performed By: #### L 500.2500 ####[facility] [address] [place], [address] Urea nitrogen 10 mg/dL Normal 7-18 [facility] Comment on above: Performed By: #### L 500.2500 ####[facility] [address] [place], [address] CBC W/Diff, Automatedon - Absolute Neut 6.0 X10 3/uL Normal 2.0-7.7 [facility] Comment on above: Performed By: #### L 100.0100 ####[facility] [address] [place], [address] Basophils/100 WBC Auto (Bld) 0.4 % Normal 0-1 [facility] Comment on above: Performed By: #### L 100.0100 ####[facility] [address] [place], [address] Eosinophils/100 leukocytes 1.4 % Normal 0-5 [facility] Comment on above: Performed By: #### L 100.0100 ####[facility] [address] [place], [address] Erythrocyte distribution width Auto Ratio (RBC) 11.7 % Normal 11.6-14.6 [facility] Comment on above: Performed By: #### L 100.0100 ####[facility] [address] [place], [address] Erythrocytes (RBC) 4.07 M/mm3 Low 4.2-5.4 [facility] Comment on above: Performed By: #### L 100.0100 ####[facility] [address] [place], [address] Hematocrit (HCT) 39.6 % Normal 37-47 [facility] Comment on above: Performed By: #### L 100.0100 ####[facility] [address] [place], [address] Hemoglobin mass conc (Bld) 13.5 g/dL Normal 12.0-15.0 [facility] Comment on above: Performed By: #### L 100.0100 ####[facility] [address] [place], [address] IM GRAN % 0.200 % Normal 0.0-0.9 [facility] Comment on above: Result Comment: IG% - Immature Granulocytes (promyelocytes, myelocytes andmetamyelocytes) > 1% indicates that a LEFT SHIFT is Present. Performed By: #### L 100.0100 ####[facility] [address] [place], [address] Lymphocytes 4.01 X10 3/ul Normal 0.83-4.51 [facility] Comment on above: Performed By: #### L 100.0100 ####[facility] [address] [place], [address] Lymphocytes/100 leukocytes 36.9 % Normal 19-41 [facility] Comment on above: Performed By: #### L 100.0100 ####[facility] [address] [place], [address] MCH 33.2 pg High 27.0-32.0 [facility] Comment on above: Performed By: #### L 100.0100 ####[facility] [address] [place], [address] MCHC mass conc (RBC) 34.1 g/gl Normal 32-36 [facility] Comment on above: Performed By: #### L 100.0100 ####[facility] [address] [place], [address] MCV 97.3 fL Normal 81-99 [facility] Comment on above: Performed By: #### L 100.0100 ####[facility] [address] [place], [address] Monocytes/100 leukocytes 6.0 % Normal 0-10 [facility] Comment on above: Performed By: #### L 100.0100 ####[facility] [address] [place], [address] Neutrophils/100 WBC Auto (Bld) 55.1 % Normal 47-70 [facility] Comment on above: Performed By: #### L 100.0100 ####[facility] [address] [place], [address] Platelet mean volume (PMV) 9.7 fL Normal 6.2-12.0 [facility] Comment on above: Performed By: #### L 100.0100 ####[facility] [address] [place], [address] Platelets 320 10*3/uL Normal 150-450 [facility] Comment on above: Performed By: #### L 100.0100 ####[facility] [address] [place], [address] RDW SD 42.0 fl Normal 35.1-43.9 [facility] Comment on above: Performed By: #### L 100.0100 ####[facility] [address] [place], [address] WBC (Leukocytes) 10.9 10*3/uL Normal 4.4-11.0 [facility] Comment on above: Performed By: #### L 100.0100 ####[facility] [address] [place], [address] Urinalysis, Completeon 07-07 MUCUS, URINE 0 SEEN Normal [facility] Comment on above: Order Comment: Order Date: 07/07/17How was Urine Obtained? DIP DYER TO SPECIFY Performed By: #### L 400.0001 ####[facility] [address] [place], [address] SQUAM EPI 0 SEEN Normal 5-10 [facility] Comment on above: Order Comment: Order Date: 07/07/17How was Urine Obtained? DIP DYER TO SPECIFY Performed By: #### L 400.0001 ####[facility] [address] [place], [address] Urine, bacteria in sediment 0 SEEN Normal None Seen [facility] Comment on above: Order Comment: Order Date: 07/07/17How was Urine Obtained? DIP DYER TO SPECIFY Performed By: #### L 400.0001 ####[facility] [address] [place], [address] Urine, erythrocytes 0-5 SEEN Normal 0-5 [facility] Comment on above: Order Comment: Order Date: 07/07/17How was Urine Obtained? DIP DYER TO SPECIFY Performed By: #### L 400.0001 ####[facility] [address] [place], [address] WBC (Leukocytes) 0 SEEN Normal 0-5 [facility] Comment on above: Order Comment: Order Date: 07/07/17How was Urine Obtained? DIP DYER TO SPECIFY Performed By: #### L 400.0001 ####[facility] [address] [place], [address] BILIRUBIN URINE Negative Normal Negative [facility] Comment on above: Order Comment: Order Date: 07/07/17How was Urine Obtained? DIP DYER TO SPECIFY Performed By: #### L 400.0001 ####[facility] [address] [place], [address] Glucose mass conc Normal Normal Normal [facility] Comment on above: Order Comment: Order Date: 07/07/17How was Urine Obtained? DIP DYER TO SPECIFY Performed By: #### L 400.0001 ####[facility] [address] [place], [address] KETONE UR Negative Normal Negative [facility] Comment on above: Order Comment: Order Date: 07/07/17How was Urine Obtained? DIP DYER TO SPECIFY Performed By: #### L 400.0001 ####[facility] [address] [place], [address] LEUK ESTERASE 25 /ul High Negative [facility] Comment on above: Order Comment: Order Date: 07/07/17How was Urine Obtained? DIP DYER TO SPECIFY Performed By: #### L 400.0001 ####[facility] [address] [place], [address] NITRITE UR Negative Normal Negative [facility] Comment on above: Order Comment: Order Date: 07/07/17How was Urine Obtained? DIP DYER TO SPECIFY Performed By: #### L 400.0001 ####[facility] [address] [place], [address] OCCULT BLOOD-UR Negative Normal Negative [facility] Comment on above: Order Comment: Order Date: 07/07/17How was Urine Obtained? DIP DYER TO SPECIFY Performed By: #### L 400.0001 ####[facility] [address] [place], [address] pH UR 6.0 Normal 5.0 - 8.0 [facility] Comment on above: Order Comment: Order Date: 07/07/17How was Urine Obtained? DIP DYER TO SPECIFY Performed By: #### L 400.0001 ####[facility] [address] [place], [address] PROT DIPSTX Negative Normal Negative [facility] Comment on above: Order Comment: Order Date: 07/07/17How was Urine Obtained? DIP DYER TO SPECIFY Performed By: #### L 400.0001 ####[facility] [address] [place], [address] SP.GR. DIPSTX 1.010 Normal 1.002-1.030 [facility] Comment on above: Order Comment: Order Date: 07/07/17How was Urine Obtained? DIP DYER TO SPECIFY Performed By: #### L 400.0001 ####[facility] [address] [place], [address] Urine, clarity Clear Normal Clear [facility] Comment on above: Order Comment: Order Date: 07/07/17How was Urine Obtained? DIP DYER TO SPECIFY Performed By: #### L 400.0001 ####[facility] [address] [place], [place], [address] Urine, color Yellow Normal Yellow [facility] Comment on above: Order Comment: Order Date: 07/07/17How was Urine Obtained? DIP DYER TO SPECIFY Performed By: #### L 400.0001 ####[facility] [address] [place], [address] UROBILI Normal Normal Normal [facility] Comment on above: Order Comment: Order Date: 07/07/17How was Urine Obtained? DIP DYER TO SPECIFY Performed By: #### L 400.0001 ####[facility] [address] [place], [place], [address] Vital Signs Date Time Vital Sign Value Performing Clinician Facility 02-17-2025 21:00-0400 Body temperature 99.1 [degF] Dr. Cee Christianson MD Work Phone: [facility] 02-17-2025 21:00-0400 Diastolic blood pressure 72 mm[Hg] Dr. Cee Christianson MD Work Phone: [phone] [place] [address] 02-17-2025 21:00-0400 Heart rate 70 /min Dr. Cee Christianson MD Work Phone: [facility] 02-17-2025 21:00-0400 Respiratory rate 21 /min Dr. Cee Christianson MD Work Phone: [facility] 02-17-2025 21:00-0400 SaO2% (BldA) [Mass fraction] 98 % Dr. Cee Christianson MD Work Phone: [facility] 02-17-2025 21:00-0400 Systolic blood pressure 145 mm[Hg] Dr. Cee Christianson MD Work Phone: [facility] 02-17-2025 18:31-0400 Body mass index (BMI) [Ratio] 37 kg/m2 Dr. Cee Christianson MD Work Phone: [facility] 02-17-2025 18:31-0400 Body weight 97.[address] Cee Christianson MD Work Phone: [facility] 02-17-2025 18:17-0400 Body height 162.[address] Cee Christianson MD Work Phone: [facility] 01-02-2025 11:13-0400 Diastolic blood pressure 84 mm[Hg] Prince Lorenzo MD Work Phone: [facility] 01-02-2025 11:13-0400 Heart rate 60 /min Prince Lorenzo MD Work Phone: [facility] 01-02-2025 11:13-0400 Systolic blood pressure 142 mm[Hg] Prince Lorenzo MD Work Phone: [facility] 01-02-2025 10:37-0400 Body height 160 cm Prince Lorenzo MD Work Phone: [facility] 01-02-2025 10:37-0400 Body mass index (BMI) [Ratio] 35.57 kg/m2 Prince Lorenzo MD Work Phone: [facility] 01-02-2025 10:37-0400 Body weight 91.08 kg Prince Lorenzo MD Work Phone: [facility] 11-29-2024 10:50-0400 Body height 161.9 cm Ruma Westfall MD Work Phone: [facility] 11-29-2024 10:50-0400 Body mass index (BMI) [Ratio] 36.57 kg/m2 Ruma Westfall MD Work Phone: [facility] 11-29-2024 10:50-0400 Body weight 95.89 kg Ruma Westfall MD Work Phone: [facility] 11-29-2024 10:50-0400 Diastolic blood pressure 76 mm[Hg] Ruma Westfall MD Work Phone: [facility] 11-29-2024 10:50-0400 Heart rate 79 /min Ruma Westfall MD Work Phone: [facility] 11-29-2024 10:50-0400 SaO2% (BldA) [Mass fraction] 100 % Ruma Westfall MD Work Phone: [facility] 11-29-2024 10:50-0400 Systolic blood pressure 138 mm[Hg] Ruma Westfall MD Work Phone: [facility] 10-05-2024 09:46-0500 Body height 162 cm Ruma Westfall MD Work Phone: [facility] 10-05-2024 09:46-0500 Body mass index (BMI) [Ratio] 37.47 kg/m2 Ruma Westfall MD Work Phone: [facility] 10-05-2024 09:46-0500 Body weight 98.34 kg Ruma Westfall MD Work Phone: [facility] 10-05-2024 09:46-0500 Diastolic blood pressure 76 mm[Hg] Ruma Westfall MD Work Phone: [facility] 10-05-2024 09:46-0500 Heart rate 65 /min Ruma Westfall MD Work Phone: [facility] 10-05-2024 09:46-0500 SaO2% (BldA) [Mass fraction] 97 % Ruma Westfall MD Work Phone: [facility] 10-05-2024 09:46-0500 Systolic blood pressure 138 mm[Hg] Ruma Westfall MD Work Phone: [facility] 09-25-2024 13:05-0500 Body height 160 cm Cee Christianson MD Work Phone: [facility] 09-25-2024 13:05-0500 Body mass index (BMI) [Ratio] 38.66 kg/m2 Cee Christianson MD Work Phone: [facility] 09-25-2024 13:05-0500 Body weight 99 kg Cee Christianson MD Work Phone: [facility] 09-25-2024 13:05-0500 Diastolic blood pressure 81 mm[Hg] Cee Christianson MD Work Phone: [facility] 09-25-2024 13:05-0500 Heart rate 67 /min Cee Christianson MD Work Phone: [facility] 09-25-2024 13:05-0500 Respiratory rate 16 /min Cee Christianson MD Work Phone: [facility] 09-25-2024 13:05-0500 Systolic blood pressure 136 mm[Hg] Cee Christianson MD Work Phone: [facility] 09-21-2024 16:32-0500 Body mass index (BMI) [Ratio] 35.23 kg/m2 Pradeep Blanton MD Work Phone: [facility] 09-21-2024 16:32-0500 Body temperature 99.19 [degF] Pradeep Blanton MD Work Phone: [facility] 09-21-2024 16:32-0500 Body weight 100.5 kg Pradeep Blanton MD Work Phone: [facility] 09-21-2024 16:32-0500 Diastolic blood pressure 82 mm[Hg] Pradeep Blanton MD Work Phone: [facility] 09-21-2024 16:32-0500 Heart rate 80 /min Pradeep Blanton MD Work Phone: [facility] 09-21-2024 16:32-0500 Respiratory rate 16 /min Pradeep Blanton MD Work Phone: [facility] 09-21-2024 16:32-0500 Systolic blood pressure 136 mm[Hg] Pradeep Blanton MD Work Phone: [facility] 09-11-2024 09:39-0500 Body mass index (BMI) [Ratio] 34.66 kg/m2 Jean ADAMES Work Phone: [facility] 09-11-2024 09:39-0500 Body temperature 98.2 [degF] Krislyn Aberegg PA Work Phone: [facility] 09-11-2024 09:39-0500 Body weight 98.9 kg Krislyn Aberegg PA Work Phone: [facility] 09-11-2024 09:39-0500 Diastolic blood pressure 80 mm[Hg] Krislyn Aberegg PA Work Phone: [facility] 09-11-2024 09:39-0500 Heart rate 75 /min Krislyn Aberegg PA Work Phone: [facility] 09-11-2024 09:39-0500 Respiratory rate 21 /min Krislyn Aberegg PA Work Phone: [facility] 09-11-2024 09:39-0500 SaO2% (BldA) [Mass fraction] 96 % Krislyn Aberegg PA Work Phone: [facility] 09-11-2024 09:39-0500 Systolic blood pressure 128 mm[Hg] Krislyn Aberegg PA Work Phone: [facility] 05-24-2024 11:16-0400 Diastolic blood pressure 86 mm[Hg] Matias Finelli DO Work Phone: [facility] 05-24-2024 11:16-0400 Heart rate 60 /min Matias Finelli DO Work Phone: [facility] 05-24-2024 11:16-0400 SaO2% (BldA) [Mass fraction] 98 % Matias Finelli DO Work Phone: [facility] 05-24-2024 11:16-0400 Systolic blood pressure 188 mm[Hg] Matias Finelli DO Work Phone: [facility] 05-24-2024 10:14-0400 Respiratory rate 16 /min Matias Finelli DO Work Phone: [facility] 05-24-2024 09:55-0400 Body mass index (BMI) [Ratio] 37.68 kg/m2 Matias Finelli DO Work Phone: [facility] 05-24-2024 09:55-0400 Body temperature 98.49 [degF] Matias Finelli DO Work Phone: [facility] 05-24-2024 09:55-0400 Body weight 107.5 kg Matias Finelli DO Work Phone: [facility] 02-21-2024 08:34-0400 Body height 168.9 cm Cee Christianson MD Work Phone: [facility] 02-21-2024 08:34-0400 Body mass index (BMI) [Ratio] 37.68 kg/m2 Cee Christianson MD Work Phone: [facility] 02-21-2024 08:34-0400 Body temperature 97.39 [degF] Cee Christianson MD Work Phone: [facility] 02-21-2024 08:34-0400 Body weight 107.5 kg Cee Christianson MD Work Phone: [facility] 02-21-2024 08:34-0400 Diastolic blood pressure 62 mm[Hg] Cee Christianson MD Work Phone: [facility] 02-21-2024 08:34-0400 Heart rate 67 /min Cee Christianson MD Work Phone: [facility] 02-21-2024 08:34-0400 Respiratory rate 16 /min Cee Christianson MD Work Phone: [facility] 02-21-2024 08:34-0400 SaO2% (BldA) [Mass fraction] 96 % Cee Christianson MD Work Phone: [facility] 02-21-2024 08:34-0400 Systolic blood pressure 130 mm[Hg] Cee Christianson MD Work Phone: [facility] 12-14-2023 09:10-0400 Diastolic blood pressure 72 mm[Hg] Thuy Sunitha LARRY CAR OPERATOR.OFFICE 365 CONSULTANT Work Phone: [facility] 12-14-2023 09:10-0400 Systolic blood pressure 144 mm[Hg] Thuy Sunitha LARRY CAR OPERATOR.OFFICE 365 CONSULTANT Work Phone: [facility] 12-14-2023 09:08-0400 Body mass index (BMI) [Ratio] 39.27 kg/m2 Thuy Sunitha LARRY CAR OPERATOR.OFFICE 365 CONSULTANT Work Phone: [facility] 12-14-2023 09:08-0400 Body weight 112.04 kg Thuy Sunitha LARRY CAR OPERATOR.OFFICE 365 CONSULTANT Work Phone: [facility] 12-14-2023 09:08-0400 Heart rate 66 /min Thuy Sunitha LARRY CAR OPERATOR.OFFICE 365 CONSULTANT Work Phone: [facility] 12-14-2023 09:08-0400 SaO2% (BldA) [Mass fraction] 99 % Thuy Sunitha LARRY CAR OPERATOR.OFFICE 365 CONSULTANT Work Phone: [facility] 09-14-2023 13:21-0500 Body height 168.9 cm Cee Christianson MD Work Phone: [facility] 09-14-2023 13:21-0500 Body weight 106.14 kg Cee Christianson MD Work Phone: [facility] 09-14-2023 13:21-0500 Diastolic blood pressure 80 mm[Hg] Cee Christianson MD Work Phone: [facility] 09-14-2023 13:21-0500 Heart rate 64 /min Cee Christianson MD Work Phone: [facility] 09-14-2023 13:21-0500 Respiratory rate 16 /min Cee Christianson MD Work Phone: [facility] 09-14-2023 13:21-0500 Systolic blood pressure 130 mm[Hg] Cee Christianson MD Work Phone: [facility] 02-19-2023 10:08-0400 Body temperature 96.8 [degF] Cee Christianson MD Work Phone: [facility] 02-19-2023 10:08-0400 Body weight 96.62 kg Cee Christianson MD Work Phone: [facility] 02-19-2023 10:08-0400 Diastolic blood pressure 72 mm[Hg] Cee Christianson MD Work Phone: [facility] 02-19-2023 10:08-0400 Heart rate 68 /min Cee Christianson MD Work Phone: [facility] 02-19-2023 10:08-0400 Respiratory rate 18 /min Cee Christianson MD Work Phone: [facility] 02-19-2023 10:08-0400 SaO2% (BldA) [Mass fraction] 96 % Cee Christianson MD Work Phone: [facility] 02-19-2023 10:08-0400 Systolic blood pressure 138 mm[Hg] Cee Christianson MD Work Phone: [facility] 12-18-2022 10:47-0400 Diastolic blood pressure 80 mm[Hg] Thuy Sunitha LARRY CAR OPERATOR.OFFICE 365 CONSULTANT Work Phone: [facility] 12-18-2022 10:47-0400 Systolic blood pressure 160 mm[Hg] Thuy Sunitha LARRY CAR OPERATOR.OFFICE 365 CONSULTANT Work Phone: [facility] 12-18-2022 10:45-0400 Body weight 97.98 kg Thuy Sunitha LARRY CAR OPERATOR.OFFICE 365 CONSULTANT Work Phone: [facility] 12-18-2022 10:45-0400 Heart rate 68 /min Thuy Sunitha LARRY CAR OPERATOR.OFFICE 365 CONSULTANT Work Phone: [facility] 12-18-2022 10:45-0400 SaO2% (BldA) [Mass fraction] 98 % Thuy Sunitha LARRY CAR OPERATOR.OFFICE 365 CONSULTANT Work Phone: [facility] 06-23-2022 14:23-0500 Diastolic blood pressure 92 mm[Hg] Zakia Sneed LARRY CAR OPERATOR.JACK MACHINE OPERATOR Work Phone: [facility] 06-23-2022 14:23-0500 Heart rate 67 /min Zakia Sneed LARRY CAR OPERATOR.JACK MACHINE OPERATOR Work Phone: [facility] 06-23-2022 14:23-0500 Systolic blood pressure 157 mm[Hg] Zakia Sneed LARRY CAR OPERATOR.JACK MACHINE OPERATOR Work Phone: [facility] 06-23-2022 14:12-0500 Body weight 85.28 kg Zakia Sneed LARRY CAR OPERATOR.JACK MACHINE OPERATOR Work Phone: [facility] 06-23-2022 14:12-0500 Respiratory rate 16 /min Zakia Sneed LARRY CAR OPERATOR.JACK MACHINE OPERATOR Work Phone: [facility] 12-19-2021 13:55-0400 Body weight 84.37 kg Cee Christianson MD Work Phone: [facility] 12-19-2021 13:55-0400 Diastolic blood pressure 68 mm[Hg] Cee Christianson MD Work Phone: [facility] 12-19-2021 13:55-0400 Heart rate 76 /min Cee Christianson MD Work Phone: [facility] 12-19-2021 13:55-0400 Respiratory rate 16 /min Cee Christianson MD Work Phone: [facility] 12-19-2021 13:55-0400 Systolic blood pressure 140 mm[Hg] Cee Christianson MD Work Phone: [facility] Encounters Encounter Date Encounter Type Care Provider Facility Start: 02-17-2025 Evaluation and management of inpatient Dr. Maycol Walsh DO -Medical Surgical 3 Work Phone: Start: 02-12-2025 End: 02-12-2025 ambulatory Smith Caro PT Work Phone: [facility] Comment on above: Gait instability (Pr imary Dx) Start: 02-08-2025 End: 02-08-2025 ambulatory Smith Caro PT Work Phone: [facility] Comment on above: Gait instability (Pr imary Dx) Start: 02-05-2025 End: 02-05-2025 ambulatory Smith Caro PT Work Phone: [facility] Comment on above: Gait instability (Pr imary Dx) Start: 01-25-2025 End: 01-25-2025 ambulatory Smith Caro PT Work Phone: [facility] Comment on above: Gait instability (Pr imary Dx) Start: 01-16-2025 End: 01-16-2025 ambulatory Cee Christianson MD [facility] [place] Start: 01-16-2025 End: 01-16-2025 Patient encounter procedure [facility] Comment on above: Population Health Na vigation Outreach ([facility] [place] ) Start: 01-10-2025 End: 01-10-2025 ambulatory Christin Walsh STATE APPELLATE CLERK Work Phone: [facility] Comment on above: Gait instability (Pr imary Dx) Start: 01-09-2025 End: 01-09-2025 Telephone encounter Araseli Lagos RN [facility] Start: 01-04-2025 End: 01-04-2025 ambulatory RUMA WESTFALL Facility:[facility] Start: 01-02-2025 End: 01-02-2025 ambulatory PRINCE LORENZO [facility] Start: 01-02-2025 End: 01-02-2025 Office outpatient new 45 minutes Prince Lorenzo MD Work Phone: [facility] Comment on above: Lumbar stenosis with neurogenic claudication (Primary Dx); Closed wedge compression fracture of T11 vertebra, initial encounter ([facility]); Arachnoiditis Start: 12-30-2024 ambulatory CEE CHRISTIANSON Facilit y:[facility] Start: 12-30-2024 End: 12-30-2024 Subsequent hospital visit by physician [facility] ([facility] Comment on above: 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] Start: 12-27-2024 End: 01-01-2025 Telephone encounter Cee Christianson MD Work Phone: [facility] [place] Comment on above: xrays on disc Start: 12-25-2024 End: 12-29-2024 Telephone encounter Cee Christianson MD Work Phone: [facility] [place] Comment on above: Orders Start: 11-30-2024 End: 11-30-2024 ambulatory Danny Tucker PT Work Phone: [facility] Comment on above: Gait instability (Pr imary Dx) Start: 11-29-2024 End: 11-29-2024 Office consultation new/estab patient 60 min Ruma Westfall MD Work Phone: Geriatrics Comment on above: Alzheimer's disease (HCC) (Primary Dx); History of traumatic brain injury Start: 11-29-2024 End: 11-29-2024 ambulatory CEE CHRISTIANSON Facility:[facility] Start: 11-16-2024 End: 01-16-2025 Follow-up encounter Zakia Sneed APRN.JACK MACHINE OPERATOR Work Phone: [facility] [place] Start: 11-12-2024 End: 01-12-2025 Follow-up encounter Ruma Westfall MD Work Phone: [facility] [place] Start: 11-10-2024 End: 11-10-2024 Refill Cee Christianson MD Work Phone: [facility] [place] Comment on above: Refill Request Start: 11-07-2024 ambulatory RUMA WESTFALL Facility:1 [id number] Start: 11-07-2024 End: 11-07-2024 Subsequent hospital visit by physician [facility] Work Phone: [facility] Comment on above: Cognitive impairment , mild, so stated [G31.84] Start: 11-01-2024 End: 11-01-2024 ambulatory Danny Tucker PT Work Phone: [facility] Comment on above: Gait instability (Pr imary Dx) Start: 10-27-2024 End: 10-30-2024 Refill Ruma Westfall MD Work Phone: Geriatrics Comment on above: Med Change Request Start: 10-16-2024 End: 10-17-2024 Refill Cee Christianson MD Work Phone: [facility] [place] Comment on above: Refill Request Start: 10-09-2024 End: 10-09-2024 ambulatory CEE D DOROTHYAMPAS Facility:[facility] Start: 10-09-2024 End: 10-09-2024 Subsequent hospital visit by physician Screen Mammo [facility] Comment on above: Encounter for screen ing mammogram for breast cancer [Z12.31] Start: 10-06-2024 End: 12-06-2024 Follow-up encounter Ruma Westfall MD Work Phone: [facility] [place] Start: 10-05-2024 End: 10-13-2024 Telephone encounter Ruma Westfall MD Work Phone: [facility] [place] Comment on above: Patient appointment- may run late Start: 10-05-2024 End: 10-05-2024 ambulatory CEE D TALAMPAS Facility:[facility] Start: 10-05-2024 End: 10-05-2024 ambulatory CEE D TALAMPAS Facility:[facility] Start: 10-05-2024 End: 10-05-2024 Office consultation new/estab patient 80 min Ruma Westfall MD Work Phone: Geriatrics Comment on above: Memory deficit (Prim tuan Dx); Cognitive impairment, mild, so stated; Gait instability; Balance disorder Start: 09-25-2024 End: 11-25-2024 Follow-up encounter Pradeep Blanton MD Work Phone: [facility] [place] Start: 09-25-2024 End: 09-25-2024 ambulatory CEE D TALAMPAS Facility:[facility] Start: 09-25-2024 End: 09-25-2024 Office outpatient visit 40 minutes Cee Christianson MD Work Phone: [facility] [place] Comment on above: Memory deficit (Prim tuan [...] 09-22-2024 End: 09-22-2024 ambulatory CEE D TALAMPAS Facility:[facility] Start: 09-22-2024 End: 09-22-2024 Subsequent hospital visit by physician [facility] Work Phone: Radiology Comment on above: Urinary tract infect ion without hematuria, site unspecified [N39.0] Start: 09-21-2024 End: 09-21-2024 ambulatory CEE D TALAMPAS Facility:[facility] Start: 09-21-2024 End: 09-21-2024 Office outpatient visit 25 minutes Pradeep Blanton MD Work Phone: [facility] [place] Comment on above: Urinary tract infect ion without hematuria, site unspecified (Primary Dx); Right-sided low back pain without sciatica, unspecified chronicity Start: 09-13-2024 End: 09-13-2024 Telephone encounter Jean ADAMES Work Phone: [facility] Comment on above: Results Start: 09-11-2024 End: 09-11-2024 Subsequent hospital visit by physician [facility] [place] Work Phone: Radiology Comment on above: Acute midline low ba ck pain with right-sided sciatica [M54.41] Start: 09-11-2024 End: 09-11-2024 ambulatory CEE D TALAMPAS Facility:[facility] Start: 09-11-2024 End: 09-11-2024 Patient encounter procedure Jean ADAMES Work Phone: [facility] Comment on above: Urinary frequency (P rimary Dx); Acute midline low back pain with right-sided sciatica Start: 09-08-2024 End: 09-08-2024 ambulatory CEE D TALTALIB Facility:[facility] Start: 08-11-2024 End: 08-12-2024 Refill Cee Christianson MD Work Phone: [facility] [place] Comment on above: Refill Request Start: 05-24-2024 End: 05-24-2024 ambulatory CEE Gama MEGHAN Facility:[facility] Start: 05-24-2024 End: 05-24-2024 Subsequent hospital visit by physician Matias Zapata DO Work Phone: Ambulatory Surgery Comment on above: Screening for colon cancer [Z12.11] Start: 05-04-2024 End: 05-15-2024 Telephone encounter Cee Christianson MD Work Phone: [facility] [place] Comment on above: Patient Question Start: 04-21-2024 End: 04-21-2024 Telephone encounter Cee Christianson MD Work Phone: [facility] [place] Start: 03-29-2024 Refill Cee sarah MD Work Phone: [facility] [place] Comment on above: Refill Request requesting medicatio n Start: 02-21-2024 End: 02-21-2024 ambulatory CEE Gama DE LA CRUZTALIB Facility:[facility] Start: 02-21-2024 End: 02-21-2024 Office outpatient [...] cancer Start: 02-18-2024 End: 02-18-2024 ambulatory CEE Gama DE LA CRUZTALIB Facility:[facility] Start: 02-16-2024 ambulatory Cee sarah MD Work Phone: Internal Medicine [facility] Start: 02-01-2024 Telephone encounter Thuy brooks LARRY CAR OPERATOR.OFFICE 365 CONSULTANT Work Phone: [facility] [place] Comment on above: requesting informati on Start: 01-18-2024 Orders Only Cee sarah MD Work Phone: [facility] [place] Comment on above: Patient Question Start: 01-14-2024 Refill Cee sarah MD Work Phone: [address] [place] [address] Comment on above: Refill Request Start: 12-17-2023 End: 12-17-2023 Patient encounter procedure Edgard ADAMES-C Work Phone: Orthopaedics Comment on above: Primary osteoarthrit is of left knee (Primary Dx); Chronic pain of left knee Start: 12-17-2023 End: 12-17-2023 Subsequent hospital visit by physician [facility] [place] Fraga Work Phone: Radiology Comment on above: Left knee pain, unsp ecified chronicity [M25.562] Start: 12-15-2023 Orders Only Edgard ADAMES-C Work Phone: Orthopaedics Comment on above: Left knee pain, unsp ecified chronicity (Primary Dx) Start: 12-14-2023 End: 12-14-2023 Patient encounter procedure Thuy Stewart LARRY CAR OPERATOR.OFFICE 365 CONSULTANT Work Phone: [facility] [place] Comment on above: Chronic pain of left knee (Primary Dx); Allergic rhinitis, unspecified seasonality, unspecified trigger; Medication management; Encounter for therapeutic drug monitoring Start: 10-04-2023 Refill Cee sarah MD Work Phone: [facility] [place] Comment on above: Refill Request Start: 09-30-2023 Refill Cee sarah MD Work Phone: [facility] [place] Comment on above: Refill Request Start: 09-24-2023 Telephone encounter Cee mccarthy MD Work Phone: [facility] [place] Comment on above: Refill Request Start: 09-14-2023 [...] Encounter for immunization Start: 07-03-2023 Refill Thuy KIMOFFICE 365 CONSULTANT Work Phone: [facility] [place] Comment on above: Refill Request Start: 05-10-2023 Refill Cee sarah MD Work Phone: [facility] [place] Comment on above: Refill Request Start: 02-25-2023 [...] Subsequent hospital visit by physician Screen Mamm[facility] Comment on above: Encounter for screen ing mammogram for breast cancer [Z12.31] Screening for osteop orosis [Z13.820] Start: 12-18-2022 End: 12-18-2022 Patient encounter procedure Thuy Stewart APRN.OFFICE 365 CONSULTANT Work Phone: [facility] [place] Comment on above: Primary hypertension (Primary Dx); Tobacco use disorder; Generalized anxiety disorder; Obesity, Class II, BMI 35-39.9; Encounter for screening mammogram for breast cancer; Screening for osteoporosis; Asymptomatic menopause; Screening for depression Start: 08-31-2022 ambulatory [facility] Hen[facility]y [facility] [place] Comment on above: Population Health Na vigation Outreach ([employer] care gaps) Start: 07-31-2022 Telephone encounter Thuy brooks LARRY CAR OPERATOR.OFFICE 365 CONSULTANT Work Phone: [facility] [place] Comment on above: Patient Update (Bloo d Pressure Results) Start: 07-27-2022 Telephone encounter Zakia almodovar LARRY CAR OPERATOR.JACK MACHINE OPERATOR Work Phone: [facility] [place] Comment on above: Recheck (lisinopril dose) Start: 06-23-2022 End: 06-23-2022 Patient encounter procedure Zakiawalt Sneed LARRY CAR OPERATOR.JACK MACHINE OPERATOR Work Phone: [facility] [place] Comment on above: Asthma (Primary Dx); Need for shingles vaccine; Screening for osteoporosis; Asymptomatic menopause; Encounter for immunization Start: 02-20-2022 Refill Cee sarah MD Work Phone: [facility] [place] Comment on above: Opened In Error Start: 01-01-2022 Documentation procedure Mammog umer Coordinator [facility] Start: 01-01-2022 Letter encounter Mammography Coordinator [facility] Start: 01-01-2022 End: 01-01-2022 Subsequent hospital visit by physician Screen Mammo [facility] Comment on above: Encounter for screen ing mammogram for breast cancer [Z12.31] Start: 12-19-2021 End: 12-19-2021 Office outpatient visit 40 minutes Cee Christianson MD Work Phone: [facility] [place] Comment on above: Essential hypertensi on (Primary [...] Cee sarah MD Work Phone: [facility] [place] Comment on above: Refill Request Start: 12-03-2021 ambulatory Cee sarah MD Work Phone: [facility] [place] Start: 07-18-2017 End: 07-19-2017 [facility] Start: 07-15-2017 End: 07-15-2017 Emergency department patient visit Stefano Garcia Facility:[facility] Start: 07-08-2017 End: 07-14-2017 Evaluation and management of inpatient [facility] Facility:[facility] Procedures Date Procedure Procedure Detail Performing Clinician Start: 02-17-2025 X-ray of chest, PA a nd lateral views Dr. Cee Christianson MD Work Phone: Start: 02-17-2025 Urnls dip stick/tabl et reagent auto microscopy Dr. Cee Crhistianson MD Work Phone: Start: 02-17-[address] Cee Christianson MD Work Phone: Start: 12-30-2024 Mri spinal canal lum bar [...] et rgnt auto w/o microscopy Julio Nava LARRY CAR OPERATOR.OFFICE 365 CONSULTANT Work Phone: Start: 09-08-2024 Lipid 1995 panel - S pema or Plasma Jean Kim PA Work Phone: Start: 05-24-2024 Colonoscopy flx dx w /collj spec when pfrmd Cee Christianson MD Work Phone: Start: 05-24-2024 Colonoscopy Matias Fi arnie DO Work Phone: Start: 02-18-2024 Lipid 1995 panel - S pema or Plasma Cee [...] dy 1/> sites axial skel Thuy Stewart LARRY CAR OPERATOR.OFFICE 365 CONSULTANT Work Phone: Start: 01-04-2023 End: 01-04-2023 Mammography Thuy Stewart LARRY CAR OPERATOR.CN P Work Phone: Start: 06-23-2022 INFLUENZA SEASONAL QUADRIVALENT HIGH DOSE AGE 65+ Zakia Sneed LARRY CAR OPERATOR.JACK MACHINE OPERATOR Work Phone: Start: 06-23-2022 PFIZER-BIONTECH COVI D-19 BIVALENT BOOSTER VACCINE, AGE 12+ YR Zakia Sneed LARRY CAR OPERATOR.JACK MACHINE OPERATOR Work Phone: Start: 01-01-2022 End: 01-01-2022 Screening mammography bi 2-view breast inc cad Bulk Order Provider Start: 12-30-2020 Adult depression scr eening assessment Cee Christianson MD Work Phone: Start: 10-31-2020 Mammography Cee dodd MD Work Phone: Start: 02-07-2014 Colonoscopy Cee dodd MD Work Phone: Plan of Treatment Date Care Activity Detail Author Start: 05-24-2034 Screening for malignant neoplasm of colon [facility] Start: 09-08-2029 Lipid panel Lipid Screening [facility] Start: 02-17-2029 Lipid panel Lipid Screening [facility] Start: 03-29-2028 Lipid 1996 panel - Serum or Plasma Lipid Screening [facility] Start: 03-29-2028 Lipid panel Lipid Screening [facility] Start: 09-08-2027 Diabetes Screening Diabetes Screening [facility] Start: 06-20-2027 LIPID SCREEN LIPID SCREEN [facility] Start: 02-17-2027 Diabetes Screening Diabetes Screening [facility] Start: 12-18-2026 LIPID SCREEN LIPID SCREEN [facility] Start: 05-24-2026 LIPID SCREEN LIPID SCREEN [facility] Start: 03-29-2026 Diabetes Screening Diabetes Screening [facility] Start: 10-09-2025 Screening for malignant neoplasm of breast Mammogram Screening [facility] Start: 09-25-2025 Annual PCP Team Chronic Disease Visit Annual PCP Team Chronic Disease Visit [facility] Start: 09-25-2025 Depression Screening Depression Screening [facility] Start: 09-25-2025 Spirometry Spirometry [facility] Comment on above: Postponed from 1972 (Declined at t his time) Start: 09-21-2025 Annual PCP Team Chronic Disease Visit Annual PCP Team Chronic Disease Visit [facility] Start: 08-27-2025 End: 08-27-2025 Patient encounter procedure 08/27/2025 11:00 AM EST Office Visit [facility] [place] [address] [place] [place] [id number] Cee Christianson MD [address] [place] [id number] 6 month f/u [facility] [place] Comment on above: 6 month f/u Start: 06-20-2025 DIABETES SCREEN DIABETES SCREEN [facility] Start: 05-30-2025 End: 05-30-2025 Patient encounter procedure 05/30/2025 3:00 PM EDT Office Visit Geriatrics [address] [place] [address] Ruma Westfall MD [address] [place] [address] 6 mo follow up - [facility] Comment on above: 6 mo follow up - mikayla Start: 04-10-2025 End: 04-10-2025 Patient encounter procedure 04/10/2025 11:00 AM EDT Office Visit [facility] [place] [address] [place] [id number] Prince Lorenzo MD [address] [place] [id number] [facility] [place] Start: 04-04-2025 End: 01-02-2026 XR Lumbar spine Views W flexion and W extension XR lumbar spine 4-5 view Imaging Routine Lumbar stenosis with neurogenic claudication Closed wedge compression fracture of T11 vertebra, initial encounter (HCC) Arachnoiditis Expected: 04/04/2025, Expires: 01/02/2026 [facility] Work Phone: Comment on above: Expected: 04/04/2025, Expires: Start: 04-04-2025 End: 01-02-2026 XR Thoracic spine 4 Views XR THORACIC SPINE COMPLETE 4+ VIEWS Imaging Routine Lumbar stenosis with neurogenic claudication Closed wedge compression fracture of T11 vertebra, initial encounter (HCC) Arachnoiditis Expected: 04/04/2025, Expires: 01/02/2026 [facility] Comment on above: Expected: 04/04/2025, Expires: Start: 03-25-2025 Covid-19 Vaccine ( season) Covid-19 Vaccine () [facility] Start: 02-21-2025 End: 02-21-2025 Patient encounter procedure 02/21/2025 9:20 AM EDT Office Visit [facility] [place] [address] [place] [address] Cee Christianson MD [address] [place] [address] 6 month follow up [facility] [place] Comment on above: 6 month follow up Start: 02-20-2025 Annual PCP Team Chronic Disease Visit Annual PCP Team Chronic Disease Visit [facility] Start: 02-17-2025 End: 02-17-2025 [facility] Start: 02-17-2025 Osmolality measurement, serum [facility] Start: 02-17-2025 Respiratory pathogens DNA and RNA panel - Respiratory specimen by BREANA with probe detection [facility] Start: 02-17-2025 Verification routine [facility] Start: 02-17-2025 Admission procedure [facility] Start: 02-17-2025 Computed tomography of abdomen and pelvis with intravenous contrast Abdomen/Pelvis W IV Cont ONLY [facility] Start: 02-17-2025 CT Abdomen and Pelvis W contrast IV [facility] Start: 02-17-2025 Hospital admission, emergency, from emergency room, medical nature [facility] Start: 02-17-2025 [facility] Start: 02-17-2025 Thyroid stimulating hormone measurement [facility] Start: 02-17-2025 Bacteria identified in Blood by Culture Blood Culture [facility] Start: 02-12-2025 End: 02-12-2025 ambulatory 02/12/2025 10:45 AM EDT OT/PT/Speech Visit [facility] [address] [place] [address] Smith Caro, PT [address] [place] [address] R26.81 (ICD-10-CM) - Gait instability [facility] Comment on above: R26.81 (ICD-10-CM) - Gait instability Start: 02-08-2025 End: 02-08-2025 ambulatory 02/08/2025 10:45 AM EDT OT/PT/Speech Visit [facility] [address] [place] [address] Smith Caro, PT [address] [place] [id number] R26.81 (ICD-10-CM) - Gait instability [facility] Comment on above: R26.81 (ICD-10-CM) - Gait instability Start: 02-05-2025 End: 02-05-2025 ambulatory 02/05/2025 9:15 AM EDT OT/PT/Speech Visit [facility] [address] [place] [address] Smith Caro, PT [address] [place] [address] R26.81 (ICD-10-CM) - Gait instability [facility] Comment on above: R26.81 (ICD-10-CM) - Gait instability Start: 02-01-2025 End: 02-01-2025 ambulatory [facility] Comment on above: R26.81 (ICD-10-CM) - Gait instability Start: 01-29-2025 End: 01-29-2025 ambulatory 01/29/2025 11:45 AM EDT OT/PT/Speech Visit [facility] [address] [place] [address] Demetra Walshh, STATE APPELLATE CLERK [address] [place] [address] R26.81 (ICD-10-CM) - Gait instability [facility] Comment on above: R26.81 (ICD-10-CM) - Gait instability Start: 01-28-2025 End: 04-29-2025 25-hydroxyvitamin D3 [Mass/volume] in Serum or Plasma VITAMIN D 25 HYDROXY Lab Routine Vitamin D deficiency Encounter for long-term current use of medication Expected: 01/28/2025, Expires: 04/29/2025 [facility] Comment on above: Expected: 01/28/2025, Expires: Start: 01-28-2025 End: 04-29-2025 CBC panel - Blood by Automated count COMPLETE BLOOD COUNT Lab Routine Primary hypertension Encounter for long-term current use of medication Expected: 01/28/2025, Expires: 04/29/2025 [facility] Comment on above: Expected: 01/28/2025, Expires: Start: 01-28-2025 End: 04-29-2025 Comprehensive metabolic 2000 panel - Serum or Plasma COMPREHENSIVE METABOLIC PANEL Lab Routine Primary hypertension Encounter for long-term current use of medication Expected: 01/28/2025, Expires: 04/29/2025 [facility] Work Phone: Comment on above: Expected: 01/28/2025, Expires: Start: 01-28-2025 End: 04-29-2025 Ferritin [Mass/volume] in Serum or Plasma FERRITIN Lab Routine Elevated ferritin Encounter for long-term current use of medication Expected: 01/28/2025, Expires: 04/29/2025 [facility] Comment on above: Expected: 01/28/2025, Expires: Start: 01-28-2025 End: 04-29-2025 Magnesium [Mass/volume] in Serum or Plasma MAGNESIUM Lab Routine Encounter for long-term current use of medication Expected: 01/28/2025, Expires: 04/29/2025 [facility] Comment on above: Expected: 01/28/2025, Expires: Start: 01-23-2025 End: 01-23-2025 ambulatory 01/23/2025 7:45 AM EDT OT/PT/Speech Visit [facility] [address] [place] [address] Smith Caro, PT [address] [place], [place] [id number] R26.81 (ICD-10-CM) - Gait instability / OK per [facility] staff [facility] Physical [facility] Comment on above: R26.81 (ICD-10-CM) - Gait instability / [place] per [facility] [place] [facility] Start: 01-01-2025 End: 01-01-2025 ambulatory 01/01/2025 10:00 AM EDT OT/PT/Speech Visit [facility] [address] [facility] [place] [address] Smith Caro, PT [address] [place] [address] R26.81 (ICD-10-CM) - Gait instability [facility] Comment on above: R26.81 (ICD-10-CM) - Gait instability Start: 12-30-2024 Subsequent hospital visit by physician 12/30/2024 8:00 AM EDT Hospital Encounter [facility] [address] [facility] [place] [address] 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] [facility] Comment on above: Degeneration of intervertebral disc of l umbar region with discogenic back pain [M51.360] Start: 12-18-2024 DTaP/Tdap/Td Vaccines (2 - Td or Tdap) DTaP/Tdap/Td Vaccines (2 - Td or Tdap) [facility] Start: 12-18-2024 Urine microalbumin profile [facility] Start: 12-13-2024 Annual PCP Team Chronic Disease Visit Annual PCP Team Chronic Disease Visit [facility] Start: 11-30-2024 End: 11-30-2024 ambulatory 11/30/2024 3:00 PM EDT OT/PT/Speech Visit [facility] [address] [place] [address] Danny Tucker, PT [address] [place] [address] LOW BACK PAIN [facility] Comment on above: LOW BACK PAIN Start: 11-29-2024 End: 11-29-2024 Patient encounter procedure 11/29/2024 11:00 AM EDT Office Visit Geriatrics [address] [place] [address] Ruma Westfall MD [address] [facility] [address] MRI FOLLOW UP [facility] Comment on above: MRI FOLLOW UP [facility] Start: 11-07-2024 End: 11-07-2024 Patient encounter procedure 11/07/2024 12:30 PM EDT App[facility]ment [facility] [address] [facility] [place] [address] [facility] Comment on above: [phone] Start: 11-01-2024 End: 11-01-2024 ambulatory 11/01/2024 8:30 AM EDT OT/PT/Speech Visit [facility] [address] [place] [address] Danny Tucker, PT [address] [place] [address] Gait instability [R26.81] [facility] Comment on above: Gait instability [R26.81] Start: 10-19-2024 End: 10-19-2024 ambulatory 10/19/2024 10:15 AM EST OT/PT/Speech Visit [facility] [address] [place] [address] Angella Sahu, PT : Gait instability [R26.81] [facility] Comment on above: : Gait instability [R26.81] Start: 10-09-2024 End: 10-09-2024 Patient encounter procedure 10/09/2024 11:10 AM EST Appointment Mammogram [address] [place] [address] : Encounter for screening mammogram for breast cancer [Z12.31] Mammogram Comment on above: : Encounter for screening mammogram for breast cancer [Z12.31] Start: 09-25-2024 End: 09-25-2024 Patient encounter procedure 09/25/2024 1:00 PM EST Office Visit [facility] [place] [address] [place] [address] Cee Christianson MD [address] [place] [address] yearly physical [facility] Comment on above: yearly physical Start: 09-22-2024 End: 09-22-2024 Patient encounter procedure 09/22/2024 1:45 PM EST Appointment Radiology [address] [place] [address] Urinary tract infection without hematuria, site unspecified [N39.0]; Acute left-sided low back pain without sciatica [M54.50] Radiology Comment on above: Urinary tract infection without hematuri a, site unspecified [N39.0]; Acute left-sided low back pain without sciatica [M54.50] Start: 09-14-2024 Annual PCP Team Chronic Disease Visit Annual PCP Team Chronic Disease Visit [facility] Start: 08-16-2024 Advance Directive Discussion Advance Directive Discussion [facility] Start: 08-16-2024 Medicare Advantage Annual Wellness Visit Medicare Advantage Annual Wellness Visit [facility] Start: 07-23-2024 End: 10-22-2024 25-hydroxyvitamin D3 [Mass/volume] in Serum or Plasma VITAMIN D 25 HYDROXY Lab Routine Encounter for long-term current use of medication Osteopenia of both hips Expected: 07/23/2024 (Approximate), Expires: 10/22/2024 [facility] Comment on above: Expected: 07/23/2024 (Approximate), Expi res: 10/22/2024 Start: 07-23-2024 End: 10-22-2024 CBC panel - Blood by Automated count COMPLETE BLOOD COUNT Lab Routine Primary hypertension Encounter for long-term current use of medication Expected: 07/23/2024 (Approximate), Expires: 10/22/2024 [facility] Comment on above: Expected: 07/23/2024 (Approximate), Expi res: 10/22/2024 Start: 07-23-2024 End: 10-22-2024 Cobalamin (Vitamin B12) [Mass/volume] in Serum or Plasma VITAMIN B12 Lab Routine Encounter for long-term current use of medication Expected: 07/23/2024 (Approximate), Expires: 10/22/2024 [facility] Comment on above: Expected: 07/23/2024 (Approximate), Expi res: 10/22/2024 Start: 07-23-2024 End: 10-22-2024 Comprehensive metabolic 2000 panel - Serum or Plasma COMPREHENSIVE METABOLIC PANEL Lab Routine Primary hypertension Encounter for long-term current use of medication Expected: 07/23/2024 (Approximate), Expires: 10/22/2024 [facility] Work Phone: Comment on above: Expected: 07/23/2024 (Approximate), Expi res: 10/22/2024 Start: 07-23-2024 End: 10-22-2024 Ferritin [Mass/volume] in Serum or Plasma FERRITIN Lab Routine Elevated ferritin Encounter for long-term current use of medication Expected: 07/23/2024 (Approximate), Expires: 10/22/2024 [facility] Comment on above: Expected: 07/23/2024 (Approximate), Expi res: 10/22/2024 Start: 07-23-2024 End: 10-22-2024 Lipid 1996 panel - Serum or Plasma LIPID PANEL BASIC Lab Routine Encounter for long-term current use of medication Expected: 07/23/2024 (Approximate), Expires: 10/22/2024 [facility] Comment on above: Expected: 07/23/2024 (Approximate), Expi res: 10/22/2024 Start: 07-23-2024 End: 10-22-2024 Magnesium [Mass/volume] in Serum or Plasma MAGNESIUM Lab Routine Encounter for long-term current use of medication Expected: 07/23/2024 (Approximate), Expires: 10/22/2024 [facility] Comment on above: Expected: 07/23/2024 (Approximate), Expi res: 10/22/2024 Start: 06-17-2024 Covid-19 Vaccine ( season) Covid-19 Vaccine ( season) [facility] Start: 05-27-2024 Shingrix Vaccine (2 of 2) Shingrix Vaccine (2 of 2) [facility] Start: 05-27-2024 Zoster Vaccines (2 of 2) Zoster Vaccines (2 of 2) [employer] Start: 05-24-2024 DIABETES SCREEN DIABETES SCREEN [facility] Start: 05-24-2024 End: 05-24-2024 Patient encounter procedure Ambulatory Surgery Comment on above: Screening for colon cancer [Z12.11] Start: 05-23-2024 End: 05-23-2024 Patient encounter procedure 05/23/2024 7:45 AM EDT Appointment Ambulatory Surgery [address] [place] [address] Screening for colon cancer [Z12.11] Ambulatory Surgery Comment on above: Screening for colon cancer [Z12.11] Start: 04-16-2024 Covid-19 Vaccine () Covid-19 Vaccine () [facility] Start: 04-16-2024 Influenza vaccination Influenza Vaccine (#1) [facility] Start: 04-11-2024 Covid-19 Vaccine () Covid-19 Vaccine () [facility] Start: 03-14-2024 End: 06-13-2024 25-hydroxyvitamin D3 [Mass/volume] in Serum or Plasma VITAMIN D 25 HYDROXY Lab Routine Osteopenia, unspecified location Expected: 03/14/2024 (Approximate), Expires: 06/13/2024 [facility] Work Phone: Comment on above: Expected: 03/14/2024 (Approximate), Expi res: 06/13/2024 Start: 03-14-2024 End: 06-13-2024 CBC panel - Blood by Automated count CBC Lab Routine Primary hypertension Encounter for long-term current use of medication Expected: 03/14/2024 (Approximate), Expires: 06/13/2024 [facility] Work Phone: Comment on above: Expected: 03/14/2024 (Approximate), Expi res: 06/13/2024 Start: 03-14-2024 End: 06-13-2024 Comprehensive metabolic 2000 panel - Serum or Plasma COMP METABOLIC PANEL Lab Routine Primary hypertension Encounter for long-term current use of medication Expected: 03/14/2024 (Approximate), Expires: 06/13/2024 [facility] Work Phone: Comment on above: Expected: 03/14/2024 (Approximate), Expi res: 06/13/2024 Start: 03-14-2024 End: 06-13-2024 Ferritin [Mass/volume] in Serum or Plasma FERRITIN BLD Lab Routine Elevated ferritin Expected: 03/14/2024 (Approximate), Expires: 06/13/2024 [facility] Work Phone: Comment on above: Expected: 03/14/2024 (Approximate), Expi res: 06/13/2024 Start: 03-14-2024 End: 06-13-2024 Lipid 1996 panel - Serum or Plasma LIPID PANEL BASIC Lab Routine Hypercholesteremia Expected: 03/14/2024 (Approximate), Expires: 06/13/2024 [facility] Work Phone: Comment on above: Expected: 03/14/2024 (Approximate), Expi res: 06/13/2024 Start: 02-21-2024 End: 02-21-2024 Patient encounter procedure 02/21/2024 8:40 AM EDT Office Visit Internal Medicine [place] [address] [place], [place] [address] Cee Christianson MD [address] [place], [place] [id number] 6 month follow up [facility] Comment on above: 6 month follow up Start: 02-20-2024 ANNUAL PCP TEAM CHRONIC DISEASE VISIT ANNUAL PCP TEAM CHRONIC DISEASE VISIT [facility] Start: 02-08-2024 Colonoscopy COLONOSCOPY [facility] Start: 02-08-2024 COLORECTAL CANCER SCREENING COLORECTAL CANCER SCREENING [facility] Start: 02-08-2024 Screening for malignant neoplasm of colon [facility] Start: 01-18-2024 End: 04-18-2024 Lipid 1996 panel - Serum or Plasma LIPID PANEL BASIC Lab Routine Hypercholesteremia Expected: 01/18/2024, Expires: 04/18/2024 [facility] Work Phone: Comment on above: Expected: 01/18/2024, Expires: Start: 01-13-2024 Covid-19 Vaccine () Covid-19 Vaccine () [facility] Start: 01-11-2024 End: 04-11-2024 25-hydroxyvitamin D3 [Mass/volume] in Serum or Plasma VITAMIN D 25 HYDROXY Lab Routine Encounter for therapeutic drug monitoring Expected: 01/11/2024, Expires: 04/11/2024 [facility] Comment on above: Expected: 01/11/2024, Expires: Start: 01-11-2024 End: 04-11-2024 CBC W Auto Differential panel - Blood COMPLETE BLOOD COUNT AND DIFFERENTIAL Lab Routine Encounter for therapeutic drug monitoring Expected: 01/11/2024, Expires: 04/11/2024 [facility] Work Phone: Comment on above: Expected: 01/11/2024, Expires: Start: 01-11-2024 End: 04-11-2024 Cobalamin (Vitamin B12) [Mass/volume] in Serum or Plasma VITAMIN B12 Lab Routine Encounter for therapeutic drug monitoring Expected: 01/11/2024, Expires: 04/11/2024 [facility] Comment on above: Expected: 01/11/2024, Expires: Start: 01-11-2024 End: 04-11-2024 Comprehensive metabolic 2000 panel - Serum or Plasma COMPREHENSIVE METABOLIC PANEL Lab Routine Encounter for therapeutic drug monitoring Expected: 01/11/2024, Expires: 04/11/2024 [facility] Comment on above: Expected: 01/11/2024, Expires: Start: 01-11-2024 End: 04-11-2024 Ferritin [Mass/volume] in Serum or Plasma FERRITIN Lab Routine Encounter for therapeutic drug monitoring Expected: 01/11/2024, Expires: 04/11/2024 [facility] Comment on above: Expected: 01/11/2024, Expires: Start: 01-11-2024 End: 04-11-2024 Iron and Iron binding capacity panel - Serum or Plasma IRON AND TIBC Lab Routine Encounter for therapeutic drug monitoring Expected: 01/11/2024, Expires: 04/11/2024 [facility] Comment on above: Expected: 01/11/2024, Expires: Start: 01-11-2024 End: 04-11-2024 Magnesium [Mass/volume] in Serum or Plasma MAGNESIUM Lab Routine Encounter for therapeutic drug monitoring Expected: 01/11/2024, Expires: 04/11/2024 [facility] Comment on above: Expected: 01/11/2024, Expires: Start: 01-05-2024 Mammography [facility] Start: 01-05-2024 Screening for malignant neoplasm of breast Mammogram Screening [facility] Start: 12-19-2023 ANNUAL PCP TEAM CHRONIC DISEASE VISIT ANNUAL PCP TEAM CHRONIC DISEASE VISIT [facility] Start: 12-17-2023 End: 12-17-2023 Patient encounter procedure 12/17/2023 11:00 AM EDT Office Visit Orthopaedics [address] [place] [address] Edgard Dubois PA-C [address] [address] Chronic pain of left knee [M25.562, G89.29] Orthopaedics Comment on above: Chronic pain of left knee [M25.562, G89. 29] Start: 08-16-2023 Advance Directive Discussion Advance Directive Discussion [facility] Start: 08-16-2023 Behavioral Health Screening Behavioral Health Screening [facility] Start: 08-16-2023 Depression Assessment Depression Assessment [facility] Start: 07-29-2023 ANNUAL PCP TEAM CHRONIC DISEASE VISIT ANNUAL PCP TEAM CHRONIC DISEASE VISIT [facility] Start: 04-16-2023 Covid-19 Vaccine ( season) Covid-19 Vaccine ( season) [facility] Start: 04-16-2023 Influenza vaccination INFLUENZA (#1) [facility] Start: 03-22-2023 End: 05-22-2023 25-hydroxyvitamin D3 [Mass/volume] in Serum or Plasma VITAMIN D 25 HYDROXY Lab Routine Osteopenia of both hips Encounter for long-term current use of medication Expected: 03/22/2023 (Approximate), Expires: 05/22/2023 [facility] Work Phone: Comment on above: Expected: 03/22/2023 (Approximate), Expi res: 05/22/2023 Start: 03-22-2023 End: 05-22-2023 CBC panel - Blood by Automated count CBC Lab Routine Primary hypertension Encounter for long-term current use of medication Expected: 03/22/2023 (Approximate), Expires: 05/22/2023 [facility] Work Phone: Comment on above: Expected: 03/22/2023 (Approximate), Expi res: 05/22/2023 Start: 03-22-2023 End: 05-22-2023 Cobalamin (Vitamin B12) [Mass/volume] in Serum or Plasma VITAMIN B12 BLOOD Lab Routine Macrocytic anemia Encounter for long-term current use of medication Expected: 03/22/2023 (Approximate), Expires: 05/22/2023 [facility] Work Phone: Comment on above: Expected: 03/22/2023 (Approximate), Expi res: 05/22/2023 Start: 03-22-2023 End: 05-22-2023 Comprehensive metabolic 2000 panel - Serum or Plasma COMP METABOLIC PANEL Lab Routine Primary hypertension Encounter for long-term current use of medication Expected: 03/22/2023 (Approximate), Expires: 05/22/2023 [facility] Work Phone: Comment on above: Expected: 03/22/2023 (Approximate), Expi res: 05/22/2023 Start: 03-22-2023 End: 05-22-2023 Ferritin [Mass/volume] in Serum or Plasma FERRITIN BLD Lab Routine Macrocytic anemia Encounter for long-term current use of medication Expected: 03/22/2023 (Approximate), Expires: 05/22/2023 [facility] Work Phone: Comment on above: Expected: 03/22/2023 (Approximate), Expi res: 05/22/2023 Start: 03-22-2023 End: 05-22-2023 Folate [Mass/volume] in Serum or Plasma FOLATE SERUM Lab Routine Macrocytic anemia Encounter for long-term current use of medication Expected: 03/22/2023 (Approximate), Expires: 05/22/2023 [facility] Work Phone: Comment on above: Expected: 03/22/2023 (Approximate), Expi res: 05/22/2023 Start: 03-22-2023 End: 05-22-2023 Iron and Iron binding capacity panel - Serum or Plasma IRON + TIBC Lab Routine Macrocytic anemia Encounter for long-term current use of medication Expected: 03/22/2023 (Approximate), Expires: 05/22/2023 [facility] Work Phone: Comment on above: Expected: 03/22/2023 (Approximate), Expi res: 05/22/2023 Start: 03-22-2023 End: 05-22-2023 Lipid 1996 panel - Serum or Plasma LIPID PANEL BASIC Lab Routine Hypercholesteremia Encounter for long-term current use of medication Expected: 03/22/2023 (Approximate), Expires: 05/22/2023 [facility] Work Phone: Comment on above: Expected: 03/22/2023 (Approximate), Expi res: 05/22/2023 Start: 01-01-2023 Mammography MAMMOGRAM [facility] Start: 12-19-2022 ANNUAL PCP TEAM CHRONIC DISEASE VISIT ANNUAL PCP TEAM CHRONIC DISEASE VISIT [facility] Start: 10-21-2022 COVID-19 VACCINE (5 - Moderna series) COVID-19 VACCINE (5 - Moderna series) [facility] Start: 08-17-2022 BONE DENSITY BONE DENSITY [facility] Comment on above: Postponed from 2019 (Postponed To Appropriate Date) Start: 08-16-2022 ADVANCE DIRECTIVE DISCUSSION ADVANCE DIRECTIVE DISCUSSION [facility] Start: 08-16-2022 DEPRESSION ASSESSMENT DEPRESSION ASSESSMENT [facility] Start: 06-21-2022 End: 08-21-2022 CBC panel - Blood by Automated count CBC Lab Routine Essential hypertension Encounter for long-term current use of medication Expected: 06/21/2022 (Approximate), Expires: 08/21/2022 [facility] Work Phone: Comment on above: Expected: 06/21/2022 (Approximate), Expi res: 08/21/2022 Start: 06-21-2022 End: 08-21-2022 Comprehensive metabolic 2000 panel - Serum or Plasma COMP METABOLIC PANEL Lab Routine Essential hypertension Encounter for long-term current use of medication Expected: 06/21/2022 (Approximate), Expires: 08/21/2022 [facility] Work Phone: Comment on above: Expected: 06/21/2022 (Approximate), Expi res: 08/21/2022 Start: 06-21-2022 End: 08-21-2022 Lipid 1996 panel - Serum or Plasma LIPID PANEL BASIC Lab Routine Essential hypertension Hypercholesteremia Expected: 06/21/2022 (Approximate), Expires: 08/21/2022 [facility] Work Phone: Comment on above: Expected: 06/21/2022 (Approximate), Expi res: 08/21/2022 Start: 05-26-2022 ANNUAL PCP TEAM CHRONIC DISEASE VISIT ANNUAL PCP TEAM CHRONIC DISEASE VISIT [facility] Start: 04-16-2022 Influenza vaccination INFLUENZA (#1) [facility] Start: 12-30-2021 Adult depression screening assessment DEPRESSION SCREENING [facility] Start: 12-30-2021 PNEUMOVAX AGE 65 AND OVER WITH 5YR LOOKBACK (#1) PNEUMOVAX AGE 65 AND OVER WITH 5YR LOOKBACK (#1) [facility] Comment on above: Postponed from 2019 (Declined at t his time) Start: 12-30-2021 SHINGRIX VACCINE (1 of 2) SHINGRIX VACCINE (1 of 2) [facility] Comment on above: Postponed from 2004 (Declined at t his time) Start: 11-22-2021 COVID-19 VACCINE (4 - Booster for Moderna series) COVID-19 VACCINE (4 - Booster for Moderna series) [facility] Start: 10-31-2021 Mammography MAMMOGRAM [facility] Start: 08-16-2021 ADVANCE DIRECTIVE DISCUSSION ADVANCE DIRECTIVE DISCUSSION [facility] Start: 04-30-2021 COVID-19 VACCINE (3 - Booster for Moderna series) COVID-19 VACCINE (3 - Booster for Moderna series) [facility] Start: 04-26-2020 PNEUMOCOCCAL: 65+ (2 - PPSV23 if available, else PCV20) PNEUMOCOCCAL: 65+ (2 - PPSV23 if available, else PCV20) [facility] Start: 04-26-2020 PNEUMOCOCCAL: 65+ (2 - PPSV23 or PCV20) PNEUMOCOCCAL: 65+ (2 - PPSV23 or PCV20) [facility] Start: 2019 BONE DENSITY BONE DENSITY [facility] Start: 2019 PNEUMOVAX AGE 65 AND OVER WITH 5YR LOOKBACK (#1) PNEUMOVAX AGE 65 AND OVER WITH 5YR LOOKBACK (#1) [facility] Start: 2014 RSV Vaccine (1 - 1-dose 60+ series) RSV Vaccine (1 - 1-dose 60+ series) [facility] Start: 2004 SHINGRIX VACCINE (1 of 2) SHINGRIX VACCINE (1 of 2) [facility] Start: 1999 COLOGUARD (FIT-DNA) COLOGUARD (FIT-DNA) [facility] Start: [address] COLONOGRAPHY [facility] Start: 1999 FECAL OCCULT BLOOD FECAL OCCULT BLOOD [facility] Start: 1999 Screening for malignant neoplasm of colon [facility] Start: 1999 SIGMOIDOSCOPY SIGMOIDOSCOPY [facility] Start: 1994 Screening for malignant neoplasm of breast Mammogram [facility] Start: 1972 BP CONTROLLED (<130/80) BP CONTROLLED (<130/80) [facility] Start: 1972 Depression Screening Depression Screening [facility] Start: 1972 Diabetes mellitus screening Diabetes Screening [facility] Start: 1972 Hepatitis C screening Hepatitis C Screening [facility] Start: 1972 SPIROMETRY SPIROMETRY [facility] Start: 1966 Depression Screening Depression Screening [facility] Start: 1954 Lipid panel Lipid Panel [facility] Start: 1954 Screening for malignant neoplasm of colon [facility] Amphetamines [Presen ce] in Urine by Screen method >1000 ng/mL [facility] Anion gap in Serum o r Plasma [facility] Bacteria identified in Urine by Culture BACTERIAL CULTURE, URINE Microbiology Routine Urinary frequency Ordered: 09/11/2024 [facility] Work Phone: Comment on above: Ordered: 09/11/2024 Benzodiazepine measurement, urine [facility] BUN/Creatinine ratio [facility] Calcium [Mass/volume ] in Serum or Plasma [facility] Carbon dioxide, tota l [Moles/volume] in Central venous blood [facility] Cocaine measurement, urine [facility] Creatinine [Mass/volume] in Serum or Plasma [facility] End: 03-17-2025 DBT Breast - bilateral screening NAVI SCREENING W [facility] Radiology Routine Encounter for screening mammogram for breast cancer 1 Occurrences starting 02/16/2024 until 03/17/2025 [facility] Work Phone: Comment on above: 1 Occurrences starting 02/16/2024 until 03/17/2025 End: 01-17-2024 DXA-AXIAL SKELETON DXA-AXIAL SKELETON Radiology Routine Screening for osteoporosis Asymptomatic menopause 1 Occurrences starting 12/18/2022 until 01/17/2024 [facility] Work Phone: Comment on above: 1 Occurrences starting 12/18/2022 until 01/17/2024 Ethanol [Mass/volume ] in Serum or Plasma [facility] fentaNYL [Presence] in Urine by Screen method [facility] Folate [Moles/volume ] in Serum or Plasma [facility] Glucose [Mass/volume ] in Serum or Plasma [facility] Magnesium measurement [facility] End: 01-17-2024 NAVI SCREENING NAVI SCREENING Radiology Routine Encounter for screening mammogram for breast cancer 1 Occurrences starting 12/18/2022 until 01/17/2024 [facility] Work Phone: Comment on above: 1 Occurrences starting 12/18/2022 until 01/17/2024 Measurement of renal function [facility] Methadone measuremen t, urine [facility] End: 11-04-2025 MR Brain WO contrast MRI BRAIN W QUANT WO IVCON Radiology Routine Cognitive impairment, mild, so stated 1 Occurrences starting 10/05/2024 until 11/04/2025 [facility] Work Phone: Comment on above: 1 Occurrences starting 10/05/2024 until 11/04/2025 End: 01-26-2026 MR Lumbar spine WO contrast MRI LUMBAR SPINE WO IVCON Radiology STAT Degeneration of intervertebral disc of lumbar region with discogenic back pain S/P lumbar spine operation Chronic midline low back pain without sciatica Acute midline low back pain without sciatica 1 Occurrences starting 12/27/2024 until 01/26/2026 [facility] Work Phone: Comment on above: 1 Occurrences starting 12/27/2024 until 01/26/2026 End: 11-04-2025 MR Unspecified body region 3D post processing MRI 3D BRAIN QUANT Radiology Routine Cognitive impairment, mild, so stated 1 Occurrences starting 10/05/2024 until 11/04/2025 [facility] Comment on above: 1 Occurrences starting 10/05/2024 until 11/04/2025 Osmolality of Urine [facility] Phencyclidine [Presence] in Urine [facility] Pneumococcal vaccination PNEUMOCOCCAL VACCINE (PREVNAR 20) Immunization/Injection Routine Encounter for immunization 1 Occurrences starting 06/23/2022 [facility] Work Phone: Comment on above: 1 Occurrences starting 06/23/2022 Potassium measurement [facility] End: 02-20-2025 Screening colonoscopy COLONOSCOPY SCREENING Endoscopy Routine Screening for colon cancer 1 Occurrences starting 02/21/2024 until 02/20/2025 [facility] Comment on above: 1 Occurrences starting 02/21/2024 until 02/20/2025 End: 01-02-2023 Screening mammography bi 2-view breast inc cad NAVI SCREENING Radiology Routine Encounter for screening mammogram for breast cancer 1 Occurrences starting 12/03/2021 until 01/02/2023 [facility] Work Phone: Comment on above: 1 Occurrences starting 12/03/2021 until 01/02/2023 Serum chloride measurement [facility] Sodium measurement [facility] End: 07-23-2023 SPIROMETRY - BASELINE AND POST DILATOR SPIROMETRY - BASELINE AND POST DILATOR PFT Routine Asthma 1 Occurrences starting 06/23/2022 until 07/23/2023 [facility] Work Phone: Comment on above: 1 Occurrences starting 06/23/2022 until 07/23/2023 Urea nitrogen [Mass/volume] in Serum or Plasma [facility] Urine cannabinoid measurement [facility] Urine opiate measurement [facility] End: 10-21-2025 US Kidney - bilateral and Urinary bladder US KIDNEY/BLADDER Radiology Routine Urinary tract infection without hematuria, site unspecified Right-sided low back pain without sciatica, unspecified chronicity 1 Occurrences starting 09/21/2024 until 10/21/2025 [facility] Work Phone: Comment on above: 1 Occurrences starting 09/21/2024 until 10/21/2025 US Kidney - bilatera l and Urinary bladder US KIDNEY/BLADDER Radiology Routine Urinary tract infection without hematuria, site unspecified Right-sided low back pain without sciatica, unspecified chronicity 09/22/2024 2:11 PM EST [facility] Work Phone: End: 01-13-2025 XR Knee - left 4 Views XR KNEE GENERAL 4V AP BOTH/PA BOTH/LAT/MERC LEFT Radiology Routine Left knee pain, unspecified chronicity 1 Occurrences starting 12/15/2023 until 01/13/2025 [facility] Work Phone: Comment on above: 1 Occurrences starting 12/15/2023 until 01/13/2025 XR Knee - left 4 Views XR KNEE G ENERAL 4V AP BOTH/PA BOTH/LAT/MERC LEFT Radiology Routine Left knee pain, unspecified chronicity 12/17/2023 11:12 AM EDT [facility] Work Phone: [facility] Immunizations Immunization Date Immunization Notes Care Provider [facility] 09-25-2024 COVID-19 vaccine, ag e 12+ yr (PFIZER-BIONTECH COMIRNATY) Ruma Westfall MD Work Phone: [facility] 02-15-2024 COVID-19 vaccine, ag e 12+ yr, season (PFIZER-BIONTECH) Cee Christianson MD Work Phone: [facility] 02-15-2024 COVID-19 vaccine, ag e 12+ yr, bivalent (PFIZER-BIONTECH) Cee Christianson MD Work Phone: [facility] 02-15-2024 respiratory syncytia l virus (RSV) vaccine, adjuvanted (AREXVY) Cee Christianson MD Work Phone: [facility] 09-14-2023 COVID-19 vaccine, ag e 12+ yr, season (PFIZER-BIONTECH) Cee Christianson MD Work Phone: [facility] 04-13-2023 influenza (aIIV4) vaccine, age 65+ yr, quadrivalent, PF (FLUAD QUAD) Cee Christianson MD Work Phone: [facility] 04-13-2023 influenza, injectabl e, quadrivalent, contains preservative Cee Christianson MD Work Phone: [facility] Work Phone: 04-13-2023 influenza virus vaccine, unspecified formulation Cee Christianson MD Work Phone: [facility] 07-23-2022 pneumococcal (PCV20) vaccine, 20 valent (PREVNAR 20) Zakia Sneed APRN.JACK MACHINE OPERATOR Work Phone: [facility] Work Phone: 06-23-2022 COVID-19 booster vaccine, age 12+ yr, bivalent (Homeschooling Through the Ages) Zakia Sneed APRN.JACK MACHINE OPERATOR Work Phone: [facility] Work Phone: 06-23-2022 influenza, high-dose , quadrivalent vaccine (FLUZONE HIGH DOSE QUADRIVALENT) Zakia Sneed APRN.JACK MACHINE OPERATOR Work Phone: [facility] Work Phone: 07-24-2021 COVID-19 original vaccine, full dose, monovalent (MODERNA) Thuy Stewart LARRY CAR OPERATOR.OFFICE [employer] CONSULTANT Work Phone: [facility] Work Phone: 05-01-2021 influenza, high-dose , quadrivalent vaccine (FLUZONE HIGH DOSE QUADRIVALENT) Zakia Sneed APRN.JACK MACHINE OPERATOR Work Phone: [facility] Work Phone: 11-28-2020 COVID-19 vaccine, fu ll dose (MODERNA) Cee Christianson MD Work Phone: [facility] 10-31-2020 COVID-19 vaccine, fu ll dose (MODERNA) Cee Christianson MD Work Phone: [facility] 05-18-2020 influenza, high dose seasonal, preservative-free Cee Christianson MD Work Phone: [facility] Work Phone: 04-26-2019 influenza, injectabl e, quadrivalent, preservative free Cee Christianson MD Work Phone: [facility] 04-26-2019 pneumococcal conjuga te vaccine, 13 valent Cee Christianson MD Work Phone: [facility] 04-23-2018 influenza, seasonal, injectable Cee Christianson MD Work Phone: [facility] 05-22-2017 influenza, injectabl e, quadrivalent, contains preservative Cee Christianson MD Work Phone: [facility] Work Phone: 04-30-[address] Cee Christianson MD Work Phone: [facility] 05-22-2015 influenza, seasonal, injectable Cee Christianson MD Work Phone: [facility] 12-18-2014 tetanus toxoid, redu grace diphtheria toxoid, and acellular pertussis vaccine, adsorbed Cee Christianson MD Work Phone: [facility] 05-07-2014 influenza, seasonal, injectable Cee Christianson MD Work Phone: [facility] 06-14-2006 influenza virus vaccine, unspecified formulation Cee Christianson MD Work Phone: [facility] Work Phone: 05-31-2006 tuberculin skin test ; purified protein derivative solution, intradermal Cee Christianson MD Work Phone: [facility] Payers Date Payer Category Payer Medicare HUMANA MEDICARE HUMANA MEDICARE PPO [id number] 2021-Present [phone] [facility] [id number] [place] [id number] PPO [id number] 2021 Medicare HUMANA MEDICARE HUMANA MEDICARE PPO [id number] 2021-Present [phone] [place] [address] [id number] 2021 Medicare (Managed Care) JOHANNA SOFIA [id number] 2018 Medicare HMO HUMANA MEDICARE [id number] 2016 Medicare [id number] Social History Date Type Detail Facility Start: 06-21-2020 End: 02-17-2025 Tobacco smoking status NHIS Occasional tobacco smoker [facility] Start: 06-22-1989 End: 07-25-2022 History of tobacco use Smoker [facility] Start: 06-21-2020 End: 12-18-2022 Cigarettes smoked current (pack per day) - Reported 0.5 [facility] Work Phone: Start: 06-21-2020 End: 05-24-2024 Tobacco use and exposure Smokeless tobacco non-user [facility] Start: 05-26-2021 End: 10-05-2024 Alcohol intake Current drinker of alcohol (finding) [facility] Start: 06-21-2020 History SDOH Alcohol Frequency 4 [facility] Start: 06-21-2020 History SDOH Alcohol Std Drinks 2 [facility] Start: 06-21-2020 History SDOH Alcohol Binge 3 [facility] Start: 06-21-2020 History SDOH Social Connections Get Together 1 [facility] Start: 05-26-2021 Tobacco Comment Down to 2 to 5 cig a day (05/2021); from half PPD--working on quitting; stress triggers; 06/19/19--on patch and has quit smoking. Sometimes half PPD (12/30/20)- [facility] Start: 1955 Sex Assigned At Not on file [facility] Start: 12-19-2021 End: 07-29-2022 Tobacco Comment Down to 2 to 5 cig a day (05/2021); from half PPD--working on quitting; stress triggers; 06/19/19--on patch and has quit smoking. Sometimes half PPD (12/30/20 and ) [facility] Start: 12-22-2021 End: 06-23-2022 Exposure to SARS-CoV-2 (event) Not sure [facility] Start: 06-22-1989 End: 07-25-2022 History of tobacco use Cigarette Smoker [facility] Work Phone: Start: 07-29-2022 End: 05-24-2024 Tobacco smoking status NHIS Ex-smoker [facility] Work Phone: Start: 12-18-2022 End: 02-19-2023 Tobacco use panel [facility] Work Phone: Adult Depression Screening Assessment 0 [facility] Work Phone: Start: 02-19-2023 Tobacco Comment Cigarette every 2-3 days( 02/19/23 )February 19, 2023 Practically quit smoking. Just one the other day and made lightheaded. [facility] Do you belong to any clubs or organizations such as adventism groups, unions, fraternal or athletic groups, or school groups? No [facility] Are you now , , , , never or living with a partner? [facility] How often to you hav e a drink containing alcohol? 2-3 time sa week [facility] How many standard dr inks containing alcohol do you have on a typical day? 3 or 4 [facility] How often do you hav e 6 or more drinks on 1 occasion? Monthly [facility] How hard is it for y ou to pay for the very basics like food, housing, medical care, and heating Not very hard [facility] Do you feel stress - tense, restless, nervous, or anxious, or unable to sleep at night because your mind is troubled all the time - these days [OSQ] To some extent [facility] (I/We) worried reinaldo er (my/our) food would run out before (I/we) got money to buy more. Never true [facility] How often do you hav e 6 or more drinks on 1 occasion? Monthly [facility] Start: 03-16-2022 Sex Female (finding) [facility] Start: 07-08-2017 Alcohol Alcohol [facility] Start: 07-08-2017 Drugs Drugs [facility] Start: 07-08-2017 Lives Lives [facility] Start: 07-08-2017 Tobacco Use Tobacco Use [facility] Start: 1955 Sex Assigned At Female [facility] Functional Status Date Assessment Result Facility 12-18-2014 Are you deaf, or do you have serious difficulty hearing No 12/18/2014 8:39 AM Verna Kwon LPN No [facility] 12-18-2014 Are you blind, or do you have serious difficulty seeing, even when wearing glasses No 12/18/2014 8:39 AM Verna Kwon LPN No [facility] 12-18-2014 Do you have serious difficulty walking or climbing stairs No 12/18/2014 8:39 AM Verna Kwon LPN No [facility] 12-18-2014 Do you have difficul ty dressing or bathing No 12/18/2014 8:39 AM Verna Kwon LPN No [facility] 12-18-2014 Because of a physica l, mental, or emotional condition, do you have difficulty doing errands alone such as visiting a physician's office or shopping No 12/18/2014 8:39 AM Verna Kwon LPN No [facility] Mental Status Date Assessment Result Facility 12-18-2014 Because of a physica l, mental, or emotional condition, do you have serious difficulty concentrating, remembering, or making decisions No 12/18/2014 8:39 AM EDT [employer] PATSY No [facility] Clinical Notes 04-17-2005 to 02-17-2025 Note Date & Type Note Facility 02-17-2025 Discharge summary [facility] 02-17-2025 Radiology Diagnostic study note [facility] Imaging Services [address] [place] [address] Chest PA and Lateral MR#: [id number] Acct: [id number] Name: SUSAN CALDERON MADONNA Rep #: [id number] 2 : 1955 F 69 From: Elaine Sousa MD PCP: Dr. Cee hCristianson MD Status: RE G ER Study:Chest PA and Lateral Date of Exam: 02/17/25 Exam# [id number] Ordering Dr: Evonne Garcia MD PROCEDURE: CHEST PA AND LATERAL 02/17/2025 REASON FOR EXAM: FEVER TECHNIQUE: CHEST PA AND LATERAL COMPARISON: No FINDINGS: Normal heart size. Well inflated lungs. No consolidation, effusion, or pneumothorax. RAD/Chest PA and Lateral IMPRESSION: No acute chest findings. Reading Location: [place] [address] CC: Dr. Ramiro Garcia MD; Dr. Cee Christianson MD ~ Equipment Installer: Signed [facility] 02-17-2025 Discharge summary Note Date/Time February 17, 2025 9:08p m [facility] Medical Records Department [address] [place] [address] Emergency Department Summary 02/17/25 MR#: [id number] Acct: [id number] Name: SUSAN CALDERON MADONNA Rep #:[id number] 1 : 1955 69 From: Ramiro Garcia MD PCP: Dr. Cee Christianson MD Status:RE G ER Location: ED HPI HPI - Female History of Present Illness Chief Complaint: Back Informant: patient and family (Daughter who is a middleware architect.) Narrative Narrative: 69-year-old female history of dementia and frequent UTIs. At the fever last 2 days with back and flank pain. No nausea or vomiting. No cough. No dysuria but urinary frequency. She has dementia but feet feel that she is more confused. Similar symptoms of prior UTIs. She does have chronic back pain withcompression fractures and has had 2 prior back surgeries. She sees pain management. Prior similar symptoms: Yes Recent Illness/Hospitalization: No PFSH PFSH Home Medications ?Medication ?Instructions ?Recorded ?Last Taken ?Type atenolol 25 mg tablet 25 mg PO DAILY 07/07/1710/02 History montelukast 10 mg tablet 10 mg PO DAILY 07/07/1710/02 History atorvastatin 10 mg tablet 10 mg PO DAILY 07/15/1710/02 History gabapentin 300 mg capsule 300 mg PO 4X/DAY 07/15/17 History fluticasone propionate 44 2 puff inhalation BID PRN Al lergies 07/17/17 Unknown History mcg/actuation HFA aerosol inhaler (Flovent HFA) donepezil 10 mg tablet 10 mg PO DAILY 02/17/25 Unkn own History lisinopril 40 mg tablet 40 mg PO DAILY 02/17/25 Unkn own History meloxicam 7.5 mg tablet 7.5 mg PO DAILY 02/17/25 Unk nown History Allergy/AdvReac Type Severity Reaction Status Date / Time Penicillins Allergy Anaphylaxis Verified 02/17/25 18:17 Social History Smoking Status: Current some day smoker tobacco type: cigarettes ROS ROS ED ROS Narrative Fever. Flank pain. Confused. Constitutional Constitutional ED: Reports fever(s) Eyes Eyes: Denies blurry vision ENT ENT ED: Denies ear pain Cardiovascular Cardiovascular: Denies chest pain Respiratory/Chest Respiratory/Chest: Denies cough Gastrointestinal Gastrointestinal: Denies abdominal pain, constipation, diarrhea, melena, nausea or vomiting Genitourinary Genitourinary ED: Reports urinary frequency; Denies dysuria or hematuria Musculoskeletal Musculoskeletal: Denies arthralgias or myalgias Integumentary Denies abscess Neurologic Neurologic: Denies headache(s) Psychiatric Psychiatric: Denies anxiety Endocrine Endocrinology: Denies heat intolerance Hematologic/Lymphatic Hematologic/Lymphatic: Denies easy bleeding, easy bruising or lymphadenopathy Allergic/Immunologic Allergic/Immunologic ED: Denies mouth swelling, tongue swelling or urticaria EXAM Physical Exam Narrative Exam Narrative: 69-year-old female sitting upright in bed. Vital signs are stable except temperature 102.8 orally. Pulse ox 100%. No distress. Currently does not lookseptic. Daughter present in room. H EENT exam pupils round react light. Dry mucous membranes. Neck nontender no JVD. No lymphadenopathy. No meningismus. Lungs clear to auscultation bilaterally. Heart regular rhythm rate about 90 no murmur. Chest wall and ribs nontender. Abdomen soft nontender. No peritoneal signs. Back nontender. No redness or warmth. Moving all 4 extremities. Nontender no edema. Normal strength. Normal range of motion. No hot or swollen joints. Neurologically she is awake. She is answering questions she isfollowing commands. She does have dementia. Const Vital Signs: 02/17/25 18:17 02/17/25 20:00 Temperature 102.8 F H 101.4 F H Temperature Source Oral Oral Pulse Rate 90 80 Respiratory Rate 18 20 H Blood Pressure 145/69 H 160/68 H Blood Pressure Mean 94 98 Pulse Ox 100 100 Oxygen Delivery Method Room Air Room Air Positive well nourished and well developed; Negative for cachectic, contracturesor unkempt General Appearance ED: well developed and NAD; Negative for unkempt, cachectic, contractures or pallor Nutritional Appearance: Negative for cachectic HEENT Reports dry mucous membranes Mouth ED: Yes dry mucous membranes Mouth: dry mucous membranes Eyes PERRL and EOMs intact bilaterally Neck no lymphadenopathy, supple and no JVD Chest Wall inspection of chest normal and palpation of chest normal Resp normal respiratory effort and clear to auscultation bilaterally Auscultation: Negative for rales, rhonchi, wheezes or diminished lung sounds Cardio regular rate, regular rhythm, S1 normal heart sound, no murmurs and no JVD GI normal to inspection, nondistended, normoactive bowel sounds, soft to palpation,non-tender, non-distended and no masses Auscultation: normoactive bowel sounds Palpation: Negative for tender or guarding Back/Spine no CVA tenderness Extremity normal to inspection and full ROM General Extremety ED: Negative for edema or tenderness General Extremity: Negative for edema Neuro No oriented x3 and CN's II-XII intact bilaterally Sensorium / Orientation: alert, oriented to person and oriented to place; Negative for oriented to time Motor Exam: strength 5/5 throughout Psych mental status grossly normal Appearance: Negative for unkempt Skin no rashes or lesions noted and no wounds General Skin Exam: Negative for jaundice or pallor Rashes: No rashes noted Trauma: Negative for other MDM MDM MDM Narrative Medical decision making narrative: 69-year-old female with a fever possible UTI versus other etiologies. Screeninglabs. IV fluids times a liter Tylenol for fever. Repeat exam at 8:25 PM patient doing well. Currently is being catheterized for urine. I explained to her and her daughter about her sodium being low she will be admitted for that. Her fever is gone from 102.8-101.4 after some Tylenol. Awaiting further labs. Repeat exam at 8:58 PM unchanged. Patient will be admitted for acute hyponatremia. Altered level consciousness and fever of uncertain etiology. Hospitalist is on page. Blood cultures have been sent. Patient knows the month and currently that she is in the hospital. I discussed the test results with both her and her daughter. I spoke to the hospitalist who would like a CT abdomen and pelvis and admit he will admit the patient to general medical floor. History & Record Review Discussion w/independent historian: Patient and Family Additional record(s) reviewed:: Prior inpatient record, Prior outpatient record,Prior ED visit and Prior labs Lab Data Attestation: I reviewed the patient's lab results. Lab results narrative: CBC shows white count 12.3. H&H 11.9 and 34. Platelets 162. Electrolytes show sodium 123. Gap 15. BUN and creatinine of 15 and 0.8. Glucose 89. UA shows occult blood. Positive ketones. No nitrates. UA is negative for infection. Lactic acid normal at 1.5 Labs: Laboratory Results - last 24 hr 02/17/25 02/17/25 02/17/25 18:33 20:10 20:23 WBC 12.3 H RBC 3.78 L Hgb 11.9 L Hct 34.4 L MCV 91.0 MCH 31.5 MCHC 34.6 RDW Std Deviation 45.9 H RDW Coeff of Lian 13.8 Plt Count 162 MPV 10.0 Immature Gran % (Auto) 0.600 Neut % (Auto) 84.3 H Lymph % (Auto) 8.4 L [place] % (Auto) 6.4 Eos % (Auto) 0.0 Baso % (Auto) 0.3 Absolute Neuts (auto) 10.4 H Absolute Lymphs (auto) 1.03 Nucleated RBC % 0 Sodium 123 L Potassium 4.5 Chloride 91 L Carbon Dioxide 17.3 L Anion Gap 15 BUN 15 Creatinine 0.86 Estim Creat Clear Calc 69.17 Est GFR (MDRD) Non-Af 73 BUN/Creatinine Ratio 17.3 Glucose 89 Lactic Acid 1.5 Calcium 8.4 Urine Color Yellow Urine Clarity Clear Urine pH 6.5 Ur Specific [place] 1.015 Urine Protein 100 H Urine Glucose (UA) Normal Urine Ketones 50 H Urine Occult Blood 50 H Urine Nitrite Negative Urine Bilirubin Negative Urine Urobilinogen Normal Ur Leukocyte Esterase 25 H Urine RBC 0 SEEN Urine WBC 0-5 SEEN Ur Squamous Epith Cells 0 SEEN Urine Bacteria RARE Urine Mucus 0 SEEN Radiography Chest X-Ray - ED: 2 View, Read by ED Physician, Heart, Lungs, Mediastinum, Bony Structures, No Acute Disease and Chronic Changes Diagnostic Testing: Clinical Impression(s) from Imaging Studies Chest X-Ray 02/17/25 20:35 IMPRESSION: No acute chest findings. Reading Location: [facility] Chest x-ray, 2 views, AP and lateral, interpreted by myself shows no acute abnormality. Normal cardiac silhouette. Normal lung hogan. No filtrates. Noeffusions. Discharge Plan Dx/Rx/DC Orders Clinical Impression: Acute hyponatremia, Fever, Altered level of consciousness, History of dementia Disposition Disposition: Acute Care Hospital [facility] What to do if you have Problems For any increased pain, shortness of breath, bleeding, nausea or vomiting, chestpain, or any unexpected problems, contact your Primary Care Provider. Call [facility] ([phone]) or report to the closest Emergency Room. Call 911 if necessary. 02/17/252107 <Electronically signed by Ramiro Garcia MD> Cosigner Signature (if applicable): CC: Dr. Cee Christianson MD ~ Signed [facility] Work Phone: 1(658) 686-603907-05-2025 Evaluation note* Diagnosis Onset Date Resolution Status Admit Date Acute hyponatremia acute February 172024 9:29pm Altered level of consciousness acute February 17, 2025 9:29pm Fever acute February 17, 2025 9:29pm History of dementia acute February 17, 2025 9:29pm [facility] Work Phone: 1(278) 875-367406-30-2025 NoteHNO ID: [id number] Author: SMITH CARO PT Service: ? Author [...] Session Stop Time : 1124 Smith Caro [facility]06-30-2025 History of Present illness Narrative* Smith Caro PT - 02/12/2025 11:13 AM EDT Images from the original note [...] from Physical Therapy services due to maximal benefit..Patient was seen for 6 visits from Start [...] 1124 Smith Caro [facility] NoteHNO ID: [id number] Author: SMITH CARO PT Service: ? Author [...] x 15 4: Seated core crunch red albanian ball 2 x 10 5: Seated core [...] Session Stop Time : 1131 Smith Caro [facility]06-26-2025 History of Present illness Narrative* Smith Caro PT - 02/08/2025 10:53 AM EDT Episode Visit Count: 5 Therapist That Will [...] x 15 4: Seated core crunch red albanian ball 2 x 10 5: Seated core [...] 1131 Smith Caro PT documented in this encounterToledo Hospital06-23-2025 NoteHNO ID: [id number] Author: SMITH CARO PT Service: ? Author [...] x 15 4: Seated core crunch red albanian ball 2 x 10 5: STS x 10 Skilled Intervention: Patient was educated in proper exercise technique and purpose for exercises. Correct performance of therapeutic exercises was facilitated with verbal cuing. Billing Therapeutic Exercise Treatment Minutes: 40 Skilled Treatment Time Minutes (timed and untimed codes): 40 Total Session Time (minutes): 40 Session Start Time : 917 Session Stop Time : 957 Smith Caro [facility]06-23-2025 History of Present illness Narrative* Smith Caro, PT - 02/05/2025 9:18 AM EDT Episode Visit Count: 4 Therapist That Will [...] 10 2: Seated TA bracing + alt october 15 3: Seated TA bracing + alt arm elevation x 15 4: Seated core crunch red albanian ball 2 x 10 5: STS x [...] 957 Smith Caro PT documented in this encounterToledo Hospital06-12-2025 NoteHNO ID: [id number] Author: SMITH CARO PT Service: ? Author [...] Exercise: 1: Seated TA set + alt october x 15 2: Seated TA st + alt UE and LE flexion 2 x 10 3: Seated core crunch iso red albanian ball 3 x 10 4: Seated lumbar flexion stretch 2 x 10 5: Seated 7# gcex-mqz-tkg CW/CCW x 10 Skilled Intervention: Patient was educated in proper exercise technique and purpose for exercises. Provided written instruction for home exercise program to facilitate proper performance and compliance. Billing Therapeutic Exercise Treatment Minutes: 38 Skilled Treatment Time Minutes (timed and untimed codes): 38 Total Session Time (minutes): 38 Session Start Time : 1050 Session Stop Time : 1127 Smith Caro [facility]06-12-2025 History of Present illness Narrative* Smith Caro, PT - 01/25/2025 10:50 AM EDT Episode Visit Count: 3 Therapist That Will Accept/Oversee The Plan Of Care: Smith Caro PT Start of Care Date: 01/04/25 Onset Date: 01/04/23 Plan of Care Certification Date: 01/04/25 Next Certification Due Date: 02/08/25 Patient Identified by Name and Date of : Yes REHABILITATION AND SPORTS THERAPY PHYSICAL THERAPY TREATMENT NOTE ASSESSMENT: Susan Lucas Herontara tolerated the session with fatigue and expected muscle soreness. She demonstrated good tolerance to seated exercises. The patient will continue to benefit from ongoing skilled physical therapy to progress toward set goals. PLAN FOR NEXT VISIT: Core strengthening in a seated position SUBJECTIVE: The back is hurting right now. The upper back is starting to hurt. She had an injection2-3 weeks ago which has not helped yet. Pain: Pain Pain Location: Low Back/Lumbar Spine- Midline, Leg - Right, Leg - Left Post Treatment Pain Post Treatment Pain Level: Better OBJECTIVE MEASURES WITH LEVEL OF FUNCTION: Lumbar flexion abolishes B leg pain in sitting TREATMENT: Therapeutic Exercise: 1: Seated TA set + alt october 2: Seated TA st + alt UE and LE flexion 2 x 10 3: Seated core crunch iso red albanian ball 3 x 10 4: Seated lumbar flexion stretch 2 x 10 5: Seated 7# xntq-uzm-iop CW/CCW x 10 Skilled Intervention: Patient was educated in proper exercise technique and purpose for exercises. Provided written instruction for home exercise program to facilitate proper performance and compliance. Billing Therapeutic Exercise Treatment Minutes: 38 Skilled Treatment Time Minutes (timed and untimed codes): 38 Total Session Time (minutes): 38 Session Start Time : 1049 Session Stop Time : 112 Smith Gordo, PT documented in this encounterToledo Hospital06-03-2025 NoteHNO ID: [id number] Author: ?, ?, ? Service: ? Author [...] Signature: Deanna Gorman January 16, 2025 12:44 [facility]06-03-2025 History of Present illness Narrative* Deanna Larsen - 01/16/2025 12:44 PM EDT POPULATION HEALTH NAVIGATION OUTREACH Action/FYI Patient outreach for HCC gaps; AWV. Sent patient mychart to close gaps. Updated appointment notes. Reason for Outreach Care Gap/HCC or Scheduling Wellness Visits Care Gaps due: Medicare Annual Wellness Visit Patient Contacted: Unable or unnecessary to reach patient: MyChart message sent Updated appointment notes Navigation Signature: Deanna Gorman January 16, 2025 12:44 PM documented in this encounterToledo Hospital06-03-2025 NotePatient Outreach (NETNAV) SUSAN CALDERON ([id number]) 1955 F TXT Date Time Provider Department 01/16/25 [facility] NETNAShanna During your visit today, we recorded the [...] Coffman Pss January 16, 2025 12:44 PM Allergies As [...] Visit: Population Health Navigation Outreach [3910] Cmt: Johanna Lama Prescriptions as of 01/16/2025 - donepezil [...] 99 mg by mouth once daily. - SWXOTTKJ-MCNNUQTXDERNRI-ZPX C ORAL Take by mouth once daily. [...] by mouth two times a day. - rhjqtstk-nwwxcc-tuddgqqs acid (COLLAGEN 1500 PLUS C) 500 mg-800 [...] 11/01/2024 Encounter Status:Closed by DEANNA LARSEN on 01/16/25[facility]05-28-2025 NoteReferral Demographics Office Notes [facility]ed [facility] [place] as requested. [phone] Telephone encounter Note* Telephone Encounter - Kourtney Bojorquez - 01/10/2025 9:16 AM EDT Referral Demographics Office Notes Faxed to [facility] [place] as requested. [phone] [facility] [id number] Miscellaneous Notes* Telephone Encounter - Kourtney Bojorquez - 01/10/2025 9:16 AM EDT Referral Demographics Office Notes Faxed to [facility] [place] as requested. [phone] * Addendum Note - Julieta Delgado PA-C - 01/09/2025 9:23 AM EDTAddended by: JULIETA DELGADO on: 01/09/2025 09:23 AM Modules accepted: Orders * Telephone Encounter - Julieta Delgado PA-C - 01/09/2025 9:23 AM EDT Placed referral to PT. Please fax to appropriate location. Thanks. * Telephone Encounter - Araseli Lagos RN - 01/09/2025 8:12 AM EDT Smith from [facility] in [place] called in to report patient was asking for more PT. She had previously received PT at this location. Smith is asking for referral to be faxed to [phone]. Any questions can be directed to [phone]. documented in this [facility]05-28-2025 NoteHNO ID: [id number] Author: ANGELLA SAHU, PT Service: ? Author [...] Session Stop Time : [address], [facility]05-28-2025 History of Present illness Narrative* Angella Sahu, PT - 01/10/2025 8:09 AM EDT Episode Visit Count: 2 Therapist That Will [...] lumbar towel roll. The patient will continue tobenefit from ongoing skilled physical therapy to progress [...] [address] PT documented in this encounterToledo Hospital05-27-2025 Note* Addendum Note - Julieta Delgado PA-C - 01/09/2025 9:23 AM EDTAddended by: JULIETA DELGADO on: 01/09/2025 09:23 AM Modules accepted: Orders [facility] [phone] Note* Addendum Note - Julieta Delgado PA-C - 01/09/2025 9:23 AM EDTAddended by: JULIETA DELGADO on: 01/09/2025 09:23 AM Modules accepted: Orders [facility] [id number] NotePlaced referral to PT. Please fax to appropriate location. Thanks.[facility]05-27-2025 Telephone encounter Note* Telephone Encounter - Julieta Delgado PA-C - 01/09/2025 9:23 AM EDT Placed referral to PT. Please fax to appropriate location. Thanks. [address] [id number] Miscellaneous Notes* Addendum Note - KEVIN Basurto - 01/09/2025 9:23 AM EDTAddended by: JULIETA DELGADO. on: 01/09/2025 09:23 AM Modules accepted: Orders * Telephone Encounter - Julieta Delgado PA-C - 01/09/2025 9:23 AM EDT Placed referral to PT. Please fax to appropriate location. Thanks. * Telephone Encounter - Araseli Lagos RN - 01/09/2025 8:12 AM EDT Smith from [facility] in [place] called in to report patient was asking for more PT. She had previously received PT at this location. Smith is asking for referral to be faxed to [phone]. Any questions can be directed to [phone]. documented in this encounterSOhioHealth O'Bleness [id number] NoteGenesisy from [facility] in [place] called in to report patient was asking for more PT. She had previously received PT at this location. Smith is asking for referral to be faxed to [phone]. Any questions can be directed to [phone].[facility]05-27-2025 Telephone encounter Note* Telephone Encounter - Araseli Lagos RN - 01/09/2025 8:12 AM EDT Smith from [facility] in [place] called in to report patient was asking for more PT. She had previously received PT at this location. Smith is asking for referral to be faxed to [phone]. Any questions can be directed to [phone]. [facility] [id number] NoteHNO ID: [id number] Author: SMITH CARO PT Service: ? Author [...] Planned: 6 Planned Treatment Interventions: Therapeutic exercise (80848), Neuromuscular re-education (30865), Manual therapy (88034), Therapeutic activities (98391), Self-halfway management (65129), Patient/Family/Caregiver Education PLAN FOR NEXT VISIT: Core [...] injections and PT. The surgeon is with [facility] in [place]. Has had surgery maybe 2005. She can [...] 3+/5 (Legs are shaki (more content not included)...[facility]05-21-2025 NoteAttempted to call patient. Left her a message to call the office. Told patient to check her discharge summary paperwork because a print out of the order should be there with her after visit paperwork. Told patient to call office if she has any other questions or concerns.[facility]05-20-2025 History of Present illness Narrative* Prince Lorenzo MD - 01/02/2025 10:15 AM EDT NEUROSURGERY CONSULT NOTE Patient Name: Susan Calderon Patient : 1955 PCP: [facility] History of Present Ilness: 69 y.o. presents with low back pain. States the pain radiates into her legs. She states her legs are weak and ache. She has difficulty walking. She cannot ambulate any significant distance. She has difficulty walking up stairs. She is unable to stand up straight. She doeshave a walker and cane that she uses [...] She has moderate subacute appearing T11 compression fracture.She has evidence of previous L4-S1 fusion. 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 She also understands that regardless [...] compression fracture of T11 vertebra, initial encounter ([facility]) XR lumbar spine 4-5 view XR THORACIC [...] aneurysm Lung cancer Father documented in this [facility]05-19-2025 Telephone encounter Note* Telephone Encounter - Joanna Weaver PSS - 01/01/2025 8:44 AM EDT CD READY FOR MATERIAL HANDLER LOADER AT [facility] RADIOLOGY [facility]05-19-[facility] Miscellaneous Notes* Telephone Encounter - Joanna Weaver PSS - 01/01/2025 8:44 AM EDT CD READY FOR MATERIAL HANDLER LOADER AT [facility] RADIOLOGY * Telephone Encounter - Lucille Ji LPN - 12/27/2024 2:49 PM EDT Patient calling asking to have Lumbar xrays that were done 09/11/2024 put on a disc please. Patient has appt on 01/[address] Lorenzo. Advised patient to bean picker disc on Wednesday at specialty center Radiology desk. If any problem please call patient. Thank you documented in this encounterToledo Hospital05-17-2025 History of Present illness Narrative* Tj Morel RT(R) - 12/30/2024 8:00 AM EDT Radiology Service Progress Note PATIENT NAME: Susan Calderon DATE OF SERVICE: December 30, 2024 TIME: 8:52 AM PATIENT IDENTITY VERIFICATION COMPLETED USING TWO (2) IDENTIFIERS: Name and Date of confirmedby patient verbally. FALL SCREENING: Has the patient had 2 falls in the last year or 1 fall with injury or currently using an Ambulatory Assistive Device (Walker, Cane, Wheelchair, Crutches, etc.)? No PATIENT GENDER DATA: Assigned female at . status: : No status:NO. PATIENT RELEVANT IMPLANT DATA REVIEWED: Not Applicable PATIENT PRESENTS WITH AN IMPLANTABLE OR ATTACHED CHILD WELFARE DIRECTOR: No RADIOLOGY DEPARTMENT: MR; Exam(s) Completed: Spine: Lumbar spine. Lavender Administered: No PERIPHERAL IV DATA: Not applicable SIGNED BY: RT Ruma(Kb) December 30, 2024 8:52 AM documented in this encounterToledo Hospital05-17-2025 NoteHNO ID: [id number] Author: TJ MOREL RT(R) Service: ? Author Type: Boss Miner Type: Progress Notes Filed: 12/30/2024 08:52 Note [...] PATIENT PRESENTS WITH AN IMPLANTABLE OR ATTACHED CHILD WELFARE DIRECTOR: No RADIOLOGY DEPARTMENT: MR; Exam(s) Completed: Spine: Lumbar spine. Lavender Administered: No PERIPHERAL IV DATA: Not applicable SIGNED BY: Tj Morel RT(R) December 30, 2024 8:52 [facility]05-16-2025 Telephone encounter Note* Telephone Encounter - Amy Alex - 12/29/2024 12:37 PM EDT Patient scheduled [facility]05-16-[facility] Miscellaneous Notes* Telephone Encounter - Amy Alex - 12/29/2024 12:37 PM EDT Patient scheduled * Telephone Encounter - Shantel Jaramillo LPN - 12/27/2024 3:41 PM EDT Pcp ordered the test. Please call pt to arrange. * Telephone Encounter - Cee Christianson MD - 12/27/2024 2:56 PM EDT Filed lumbar MRI for acute and chronic back pain with history of back surgery. Filed stat to see if can get soon. * Telephone Encounter - Azalia Kingston RN - 12/27/2024 2:36 PM EDT Patient calls and message below reviewed at [...] lie on her left side to sleep atnight. Her son is currently home and seeking a job in the area as he is assisting her with housework. Patient was going to contact Dr. Lorenzo to let them know MRI was to be ordered but unsure if or when it would be approved. Azalia Kingston RN * Telephone Encounter - Carol Danielle LPN - 12/27/2024 2:23 PM EDT Spoke with patient and she guesses it would be the lower portion ot the thoracic spine as she is having difficulty walking and standing up. She is going to contact Dr. Lorenzo to verify what area it is. Will return call once answered. * Telephone Encounter - Cee Christianson MD - 12/27/2024 12:41 PM EDT Verify pain is thoracic spine.Clarify if pain is upper or lower thoracic spine, how severe is the pain (scale 1-10, limiting any activities, causing trouble sleeping or walking,etc) I can file the order, but she needs to know the following: Let her know that if insurance requires documentation of a more detailed exam to approve the MRI, Idid not do a detailed exam of her [...] did not improve in a few sessions, * Telephone Encounter - Amy Alex - 12/25/2024 3:07 PM EDT Patient presented at front office agent asking for orders for MRI of the spine as Dr. Christianson in the last office visit cleared the patient to be seen by Dr. Prince Lorenzo, a neurosurgeon. Dr. Lorenzo's office is wanting an MRI completed prior to her scheduled office visit on 01/02/25. Please advise/assist. Amy Alex documented in this encounterToledo Hospital05-14-2025 Telephone encounter Note * Telephone Encounter - Shantel Jaramillo LPN - 12/27/2024 3:41 PM EDT Pcp ordered the test. Please call pt to arrange. [facility]05-14-[facility] Telephone encounter Note* Telephone Encounter - Cee Christianson MD - 12/27/2024 2:56 PM EDT Filed lumbar MRI for acute and chronic back pain with history of back surgery. Filed stat to see if can get soon. [facility]05-14-20[facility] Telephone encounter Note* Telephone Encounter - Lucille Ji LPN - 12/27/2024 2:49 PM EDT Patient calling asking to have Lumbar xrays that were done 09/11/2024 put on a disc please. Patient has appt on 01/[address] Lorenzo. Advised patient to bean picker disc on Wednesday at specialty center Radiology desk. If any problem please call patient. Thank you [facility]05-14-2025 Telephone encounter Note* Telephone Encounter - Azalia Kingston RN - 12/27/2024 2:36 PM EDT Patient calls and message below reviewed at [...] lie on her left side to sleep atnight. Her son is currently home and seeking a job in the area as he is assisting her with housework. Patient was going to contact Dr. Lorenzo to let them know MRI was to be ordered but unsure if or when it would be approved. Azalia Kingston RN [facility]05-14-2025 Telephone encounter Note* Telephone Encounter - Carol Danielle LPN - 12/27/2024 2:23 PM EDT Spoke with patient and she guesses it would be the lower portion ot the thoracic spine as she is having difficulty walking and standing up. She is going to contact Dr. Lorenzo to verify what area it is. Will return call once answered. [facility]05-14-20[facility] Telephone encounter Note* Telephone Encounter - Cee Christianson MD - 12/27/2024 12:41 PM EDT Verify pain is thoracic spine.Clarify if pain is upper or lower thoracic spine, how severe is the pain (scale 1-10, limiting any activities, causing trouble sleeping or walking,etc) I can file the order, but she needs to know the following: Let her know that if insurance requires documentation of a more detailed exam to approve the MRI, Idid not do a detailed exam of her [...] did not improve in a few sessions, [facility]05-12-20[facility] Telephone encounter Note* Telephone Encounter - Amy Alex - 12/25/2024 3:07 PM EDT Patient presented at front office agent asking for orders for MRI of the spine as Dr. Christianson in the last office visit cleared the patient to be seen by Dr. Prince Lorenzo, a neurosurgeon. Dr. Lorenzo's office is wanting an MRI completed prior to her scheduled office visit on 01/02/25. Please advise/assist. Amy Alex [facility]04-17-2025 History of Present illness Narrative* Danny Tucker, PT - 11/30/2024 3:30 PM EDT Program_ID:[id number] Access Code: [email or web address] URL: [email or web address] Date: 11-30-2024 Prepared By: Danny Tucker Program [...] weekly - 2 sets - 10 reps * Danny Tucker, PT - 11/30/2024 3:11 PM EDT Images from the original note were [...] to 11/30/2024 and treatment included: Therapeutic exercise andSelf-halfway management. Updated: 11/30/24. Goals for Episode of Care: established 11/01/24 Patient reported outcome of physical function will increase T-score by a minimum 5 points. (NOT MET) [place] in home exercise program. (NOT MET, rx'd [...] appointment. Danny Tucker PT documented in this encounterToledo Hospital04-17-2025 NoteHNO ID: [id number] Author: DANNY TUCKER PT Service: ? Author [...] 11/30/2024 and treatment included: Therapeutic exercise and Self-halfway management. Updated: 11/30/24. Goals for Episode of Care: established 11/01/24 Patient reported outcome of physical function will increase T-score by a minimum 5 points. (NOT MET) [place] in home exercise program. (NOT MET, rx'd [...] patient arriving late to appointment. Danny Tucker, [facility]04-16-2025 NoteHNO ID: [id number] Author: RUMA WESTFALL MD Service: ? Author [...] lisinopril (ZESTRIL) 40 mg tablet POTASSIUM ORAL TPAIHWRA-ELFYKRIMCDDHYR-PKN C ORAL atenolol (TENORMIN) 25 mg tablet gabapentin (NEURONTIN) 400 mg capsule atorvastatin (LIPITOR) 10 mg tablet montelukast (SINGULAIR) 10 mg tablet ubidecarenone Q-10 (CO Q-10) 10 mg cap vwlqsobk-yqdrvh-qyraqhqs acid (COLLAGEN 1500 PLUS C) 500 mg-800 [...] mg daily; instructed pat (more content not included)...[facility]04-16-2025 History of Present illness Narrative* Ruma Westfall MD - 11/29/2024 11:33 AM EDT Reason for Visit Follow up MRI HPI [...] vegetables like green beans and broccoli. She reportsthat she got off the diet for a [...] lisinopril (ZESTRIL) 40 mg tablet POTASSIUM ORAL JPKLZPNK-CKDDMYFQVZMEGP-USB C ORAL atenolol (TENORMIN) 25 mg tablet gabapentin (NEURONTIN) 400 mg capsule atorvastatin (LIPITOR) 10 mg tablet montelukast (SINGULAIR) 10 mg tablet ubidecarenone Q-10 (CO Q-10) 10 mg cap roogcaph-qvqine-npgaclva acid (COLLAGEN 1500 PLUS C) 500 mg-800 [...] excuse any unintended typographical errors. Recording using Or[employer] software for draft documentation of the visit was discussed with the patient/authorized claim representative; all questions welcomed and answered. Patient/authorized claim representative agreed to proceed Ruma Westfall MD documented in this encounterToledo Hospital04-16-2025 Instructions* Patient Instructions* Ruma Westfall MD - 11/29/2024 11:32 AM [...] then, please send me a message through [facility] or call the office. - Continue monitoring your memory and overall health. If you notice any behavioral changes, such asirritability, apathy, or depression, please inform me or your caregiver promptly. Let me know if you have any questions or concerns before your next visit. documented in this encounterToledo Hospital04-03-2025 Progress note* Result Encounter Note - Zakia Sneed APRN.CNS - 11/16/2024 9:54 AM EDT Mammogram had benign findings, 1 year screening mammogram advised. [facility]04-03-2025 Miscellaneous Notes* Result Encounter Note - Zakia Sneed APRN.CNS - 11/16/2024 9:54 AM EDT Mammogram had benign findings, 1 year screening mammogram advised. documented in this encounterToledo Hospital03-28-2025 Telephone encounter Note * Telephone Encounter - Umu Núñez - 11/10/2024 9:42 AM EDT Patient has been identified by name and [...] 02/21/2025 Please advise. Thank you. Umu Núñez. [facility]03-28-2025 Miscellaneous Notes* Telephone Encounter - Umu Núñez - 11/10/2024 9:42 AM EDT Patient has been identified by name and [...] Thank you. Umu Núñez. documented in this encounterToledo Hospital03-25-2025 History of Present illness Narrative* Kim Toscano, emergency medicine physician assistant - 11/07/2024 12:30 PM EDT Summary: mri Radiology Service Progress Note PATIENT NAME: Susan Calderon DATE OF SERVICE: November 07, 2024 TIME: 1:16 PM PATIENT IDENTITY VERIFICATION COMPLETED USING TWO (2) IDENTIFIERS: Name and Date of confirmedby patient verbally. FALL SCREENING: Has the patient had 2 falls in the last year or 1 fall with injury or currently using an Ambulatory Assistive Device (Walker, Cane, Wheelchair, Crutches, etc.)? No PATIENT GENDER DATA: Assigned female at . status: : No status:NO. PATIENT RELEVANT IMPLANT DATA REVIEWED: Yes PATIENT PRESENTS WITH AN IMPLANTABLE OR ATTACHED CHILD WELFARE DIRECTOR: No RADIOLOGY DEPARTMENT: ; Exam(s) Completed: Head: QUANT PERIPHERAL IV DATA: Not applicable SIGNED BY: JANNA Rubio November 07, 2024 1:16 PM documented in this encounterToledo Hospital03-25-2025 NoteHNO ID: [id number] Author: KIM TOSCANO MRI Tech Service: Radiology [...] PATIENT PRESENTS WITH AN IMPLANTABLE OR ATTACHED CHILD WELFARE DIRECTOR: No RADIOLOGY DEPARTMENT: MR; Exam(s) Completed: Head: QUANT PERIPHERAL IV DATA: Not applicable SIGNED BY: JANNA Rubio November 07, 2024 1:16 [facility] Instructions* Patient Instructions* Cee Christianson MD - 11/01/2024 6:15 PM [...] is on February 21. documented in this encounterToledo Hospital03-19-2025 History of Present illness Narrative* Danny Tucker PT - 11/01/2024 9:09 AM EDT Program_ID:[id number] Access Code: [email or web address] URL: [email or web address] Date: 11-01-2024 Prepared By: Danny Tucker Program [...] weekly - 2 sets - 8-12 reps * Schuyler Danny, PT - 11/01/2024 8:35 AM EDT Images from the original note were not included. Episode Visit Count: 1 Therapist That Will Accept/Oversee The Plan Of Care: Danny Tucker, PT. Start of Care Date: 11/01/24 Onset [...] and reports she does have increased LBP andB Leg symptoms with upright activities such as [...] of motion, strength, and symptom management. PROMIS (Patient- Reported Outcomes Measurement Information System) scores were reviewed [...] increase T-score by a minimum 5 points. [place] in home exercise program. Patient will decrease [...] Planned: 4 Planned Treatment Interventions: Therapeutic exercise (05465), Neuromuscular re- education (10995), Manual therapy (32358), Therapeutic activities (10294), Self- halfway management (67286), Gait Training (44755), Body Mechanics Training, Patient/Family/Caregiver Education PLAN FOR [...] L3-S1) was in the early 1999's, states 9136-0820 per patient. Has pain with walking, pain is in the low back and with prolonged w alking pain travels to the legs. Does get relief with recliner however has to use a lumbar roll. OnGabapentin 400mg, and Flexeril 5Mg. Susan is unsure [...] Proceed with caution due to the above (1- 2) risk factors Abdominal Aortic Aneurysm Red Flags: [...] Lumbar Extension: Major limitation Lumbar R Side [place]: Major limitation Lumbar L Side [place]: Major limitation Lumbar R Side-Bend: Moderate limitation [...] program, Safety, Plan of Care, Health promotion, Posture,Gait Training Education Provided: Yes, see treatment interventions for education provided Education Provided To: Patient Education Mode/Type: Demonstration, Explanation/Discussion, Literature/Printed Materials Response to Education/Teach Back: States/Identifies, Requires Review/Additional Education TREATMENT: PT Treatment Interventions: Therapeutic Exercise, Self-Group Home Management Evaluation Therapeutic Exercise: 1: Reviewed HEP [...] and tactile cuing. Patient education as noted. Self-Group Home Management: 1: *Time spent on education and [...] 914 Danny Tucker PT [facility]03-19-[facility]25 NoteHNO ID: [id number] Author: DANNY TUCKER PT Service: ? Author [...] increase T-score by a minimum 5 points. [place] in home exercise program. Patient will decrease [...] Planned: 4 Planned Treatment Interventions: Therapeutic exercise (13751), Neuromuscular re-education (81875), Manual therapy (17613), Therapeutic activities (62826), Self-halfway management (69095), Gait Training (02390), Body Mechanics Training, Patient/Family/Caregiver Education PLAN FOR [...] (L/S Fusion L3-S1) was in the early 1999', states 2851-2228 per patient. Has pain with walking, pain [...] Red Flags Vertebral Fr (more content not included)...[facility]03-04-2025 Telephone encounter Note* Telephone Encounter - Cee Christianson MD - 10/17/2024 1:21 AM EST The following approved medication requests have been transmitted electronically. Requested Prescriptions Pending Prescriptions Disp Refills lisinopril (ZESTRIL) 40 mg tablet 90 tablet 2 Sig: Take 1 tablet by mouth once daily. DOSE CHANGE - TAKE ONE DAILY Cee Christianson MD [facility]03-04-2025 Miscellaneous Notes* Telephone Encounter - Cee Christianson MD - 10/17/2024 1:21 AM EST The following approved medication requests have been transmitted electronically. Requested Prescriptions Pending Prescriptions Disp Refills lisinopril (ZESTRIL) 40 mg tablet 90 tablet 2 Sig: Take 1 tablet by mouth once daily. DOSE CHANGE - TAKE ONE DAILY Cee Christianson MD * Telephone Encounter - Azalia Kingston RN - 10/16/2024 3:11 PM EST The patient has been identified by name [...] 16, 2024 3:11 PM documented in this encounterToledo Hospital03-03-2025 Telephone encounter Note * Telephone Encounter - Azalia Kingston RN - 10/16/2024 3:11 PM EST The patient has been identified by name [...] Kingston RN October 16, 2024 3:11 PM [facility]02[facility] History of Present illness Narrative* Elfego Burdick Mammo Ricky - 10/09/2024 11:10 AM EST Radiology Service Progress Note PATIENT NAME: Susan Calderon DATE OF SERVICE: October 09, 2024 TIME: 11:06 AM PATIENT IDENTITY VERIFICATION COMPLETED USING TWO (2) IDENTIFIERS: Name and Date of confirmedby patient verbally. FALL SCREENING: Has the patient had 2 falls in the last year or 1 fall with injury or currently using an Ambulatory Assistive Device (Walker, Cane, Wheelchair, Crutches, etc.)? No PATIENT GENDER DATA: Assigned female at . status: : No status:NO. PATIENT RELEVANT IMPLANT DATA REVIEWED: Not Applicable PATIENT PRESENTS WITH AN IMPLANTABLE OR ATTACHED CHILD WELFARE DIRECTOR: No RADIOLOGY DEPARTMENT: Mammography PERIPHERAL IV DATA: Not applicable SIGNED BY: Pete Hernandez October 09, 2024 11:06 AM documented in this encounterToledo Hospital02-24-2025 NoteHNO ID: [id number] Author: ELFEGO BURDICK Mammo Tech Service: ? Author Type: Boss Miner Type: Progress Notes Filed: 10/09/2024 11:12 Note [...] PATIENT PRESENTS WITH AN IMPLANTABLE OR ATTACHED CHILD WELFARE DIRECTOR: No RADIOLOGY DEPARTMENT: Mammography PERIPHERAL IV DATA: Not applicable SIGNED BY: Pete Hernandez October 09, 2024 11:06 [facility]02-20-2025 NoteHNO ID: [id number] Author: SUZANNE DODD LPN Service: ? Author Type: LICENSED NURSE Type: Progress Notes Filed: 10/05/2024 17:54 Note Text: Patient presents for geriatric consult with daughter Holly Sharp. Rooming intake completed with patient to ensure accuracy. PHQ-9, MOCA reviewed with patient and entered into questionnaires. [facility]The [facility] History of Present illness Narrative* Suzanne Dodd LPN - 10/05/2024 9:51 AM EST Patient presents for geriatric consult with daughter Holly Sharp. Rooming intake completed with patient to ensure accuracy. PHQ-9, MOCA reviewed with patient and entered into questionnaires. Suzanne Dodd LPN * Ruma Westfall MD - 10/05/2024 9:45 AM EST [facility] Initial Consult Susan [...] secure location? No Social History: Primary language: Finnish Marital Status: Living situation: Home w/ Family, family lives with her for over a year now. Socially engaged? (participates in activities such as clubs, adventism, community center, sports, games, visiting friends/relatives, etc?): He he she has always been a stay at home person.except for daughter and son being with her or visiting. She does not socialize. Most of her friends . Caregiver Fletcher and Stress Are your feeling overwhelmed? NO [...] being in the caregiver role? NO B-ADLs: (I=independent,A=assistance,D=dependent) ?Bathing: I, Dressing: I, Toileting: I, Transferring:I, [...] , Taking? Yes, Authorizing Provider Thuy Stewart APRN.[employer] [employer] CONSULTANT Medication gabapentin (NEURONTIN) 400 mg capsule, Sig Take 1 capsule by mouth three times a day ope715 days., Start Date 03/29/24, End Date 10/05/24, Taking? Yes, Authorizing Provider Cee Christianson MD Medication atorvastatin (LIPITOR) 10 mg tablet, Sig Take 1 tablet by mouth daily at bedtime., StartDate 02/21/24, End Date , Taking? Yes, Authorizing [...] Yes, Authorizing Provider Cee Christianson MD Medication vuwzgsvj-vesrts-rkhxqrjw acid (COLLAGEN 1500 PLUS C) 500 mg-800 mcg- 50 mg cap, Sig Takeby mouth., Start Date 02/21/24, End Date , Taking? Yes, Authorizing Provider Cee Christianson MD Medication lisinopril (ZESTRIL) 40 mg tablet, Sig Take 1 tablet by mouth once daily. DOSE CHANGE - TAKE ONE DAILY, Start Date 01/14/24, End Date , Taking? Yes, Authorizing Provider Cee Christianson MD Medication omega-3 DHA-EPA (FISH OIL) 1,200 (144-216) mg capsule, Sig Take 1 capsule by mouth dailywith breakfast., Start Date , End Date , [...] D ORAL), Sig Take by mouth. 1200 [id number] of D, Start Date , End Date [...] daily., Start Date , End Date , Taking?Yes, Authorizing Provider Provider, [facility] Medication vitamin B complex (SUPER B COMPLEX ORAL), Sig Take 1 tablet by mouth once daily., Start Date , End Date , Taking? Yes, Authorizing Provider Provider, [facility] Medication fluticasone (FLONASE) 50 mcg/actuation nasal spray, Sig SPRAY 2 SPRAYS INTO EACH NOSTRILONCE DAILY - RINSE MOUTH AFTER USE, Start Date 12/19/21, End Date , Taking? Yes, Authorizing ProviderCee Christianson MD Medication fluticasone-salmeterol (ADVAIR DISKUS) 250-50 mcg/dose inhaler, Sig Inhale 1 Puff as instructed twice daily., Start Date 12/19/21, End Date , Taking? 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 Ruma Westfall MD [facility] documented in this encounterToledo Hospital02-20-2025 NoteHNO ID: [id number] Author: RUMA WESTFALL MD Service: ? Author Type: Physician Type: Progress Notes Filed: 10/05/2024 17:54 Note Text: [facility] Initial Consult Susan [...] secure location? No Social History: Primary language: Finnish Marital Status: Living situation: Home w/ Family, family lives with her for over a year now. Socially engaged? (participates in activities such as clubs, adventism, community center, sports, games, visiting friends/relatives, etc?): He he she has always been a stay at home person.except for daughter and son being with her or visiting. She does not socialize. Most of her friends . Caregiver Fletcher and Stress Are your feeling overwhelmed? NO [...] being in the caregiver role? NO B-ADLs: (I=independent,A=assistance,D=dependent) ?Bathing: I, Dressing: I, Toileting: I, Transferring:I, [...] day as needed (crampin (more content not included)...[facility]02-20-2025 Telephone encounter Note* Telephone Encounter - Shimon Choudhury RN - 10/05/2024 8:59 AM EST Patient phoned to report she is scheduled with Dr. Westfall at 9:30 today. Her daughter is driving from [place] and the roads are bad- running late. Patient unsure if she will be late for appt. Patient will call back to let Dr. Westfall office know. Notified Suzanne in Dr. Westfall office. [facility] Miscellaneous Notes* Telephone Encounter - Shimon Choudhury RN - 10/05/2024 8:59 AM EST Patient phoned to report she is scheduled with Dr. Westfall at 9:30 today. Her daughter is driving from [place] and the roads are bad- running late. Patient unsure if she will be late for appt. Patient will call back to let Dr. Westfall office know. Notified Suzanne in Dr. Westfall office. documented in this encounterToledo Hospital02-10-2025 NoteHNO ID: [id number] Author: CEE CHRISTIANSON MD Service: ? Author Type: Physician Type: Progress Notes Filed: 11/01/2024 18:20 Note Text: This note was created using NoteWriter. Subjective Susan Calderon is a 69 year [...] a will and a healthcare power of transactional attorney. She does not have a living [...] Take by mouth two times a day. zpcrvanw-ynxsok-lqolqzpl acid (COLLAGEN 1500 PLUS C) 500 mg-800 [...] MOUTH AFTER USE fluticason (more content not included)...[facility]02-10-2025 History of Present illness Narrative* Cee Christianson MD - 09/25/2024 1:14 PM EST This note was created using NoteWriter. Subjective Susan Calderon is a 69 year old female. HISTORY Susan Calderon is a 69 year old lady here for yearly exam and follow up appointment. Has HCDPOA. Daughter is her surrogate decision maker. Susan is a 69-year-old female with a history of asthma, diverticulitis, and back issues, presentingfor a Medicare Annual Wellness Visit. She is accompanied by her son, who provides additional history. Susan reports concerns about memory issues, which have been noted by her children. Her son mentionsthat she often repeats conversations and has difficulty [...] a will and a healthcare power of transactional attorney. She does not have a living [...] Take by mouth two times a day. qacqjlnw-xwgocq-cpbztgfj acid (COLLAGEN 1500 PLUS C) 500 mg-800 [...] Abs Lymph 1.00 - 4.00 k/uL 1.50 [place]% % 9.0 Abs [place] <0.87 k/uL 0.46 [place]% % 3.1 Abs [...] memory deficits, including repetitive conversations and difficulty recallingstories. - Referred to Dr. Westfall for further [...] follow up with Dr. Lorenzo or another payment specialist for further evaluation and management. - Recommended maintaining good posture and considering physical therapy exercises to alleviate discomfort. # Encounter for long-term current use of medication (Z79.899) - Reviewed current medication regimen including cyclobenzaprine, [...] the date of the service which included zoth-ia-ygew patient care, completing clinical documentation, obtaining and/or reviewing separately obtained history, performing a medically appropriate examination, counseling and educating the patient/family/caregiver, ordering medications, tests, or procedures, communicating with other HCPs (not separately reported), communicating results to the patient/family/caregiver, and care coordination (not separately reported). Cee Christianson MD documented in this encounterToledo Hospital02-07-2025 History of Present illness Narrative* Angella Tom, [facility] - 09/22/2024 1:45 PM EST Radiology Service Progress Note PATIENT NAME: Susan Calderon DATE OF SERVICE: September 22, 2024 TIME: 2:46 PM PATIENT IDENTITY VERIFICATION COMPLETED USING TWO (2) IDENTIFIERS: Name and Date of confirmedby patient verbally. FALL SCREENING: Has the patient had 2 falls in the last year or 1 fall with injury or currently using an Ambulatory Assistive Device (Walker, Cane, Wheelchair, Crutches, etc.)? No PATIENT GENDER DATA: Assigned female at . status: : No status:NO. PATIENT RELEVANT IMPLANT DATA REVIEWED: Not Applicable PATIENT PRESENTS WITH AN IMPLANTABLE OR ATTACHED CHILD WELFARE DIRECTOR: No RADIOLOGY DEPARTMENT: Ultrasound PERIPHERAL IV DATA: Not applicable SIGNED BY: Angella Tom RDMS RVPasha September 22, 2024 2:46 PM documented in this encounterToledo Hospital02-07-2025 NoteHNO ID: [id number] Author: ANGELLA TOM RDMS Service: ? Author Type: Creative Art Director Type: Progress Notes Filed: 09/22/2024 14:46 Note [...] PATIENT PRESENTS WITH AN IMPLANTABLE OR ATTACHED CHILD WELFARE DIRECTOR: No RADIOLOGY DEPARTMENT: Ultrasound PERIPHERAL IV DATA: Not applicable SIGNED BY: Angella Tom RDMS RVPasha September 22, 2024 2:46 [facility]02-06-2025 NoteHNO ID: [id number] Author: PRADEEP BLANTON MD Service: ? Author Type: Physician Type: Progress Notes Filed: 09/22/2024 00:28 Note Text: This note was created using NoteWriter. Subjective [...] Take by mouth two times a day. nbzijawm-sjfgtu-gxrbmgus acid (COLLAGEN 1500 PLUS C) 500 mg-800 [...] kg/m? Physical Exam Constituti (more content not included)...[facility]02-06-2025 History of Present illness Narrative* Pradeep Blanton MD - 09/21/2024 4:47 PM EST This note was created using Explarariter. Subjective Patient presents with: Express Care follow-up Susan Calderon is a 69 year old female who developed progressive right lower back pain, sharp, aggravated by bending, sitting up, and movement about 3 weeks ago. She had been moving stuff around herhouse, but denied any specific injury. She had [...] Take by mouth two times a day. gelzpshn-muhcdi-lzlesmpe acid (COLLAGEN 1500 PLUS C) 500 mg-800 [...] Take by mouth. (Patient not taking: Reported on09/11/2024) ascorbic acid, vitamin C, (VITAMIN C) 500 [...] site unspecified - ICD9: 599.0, ICD10: N39.0 (primarydiagnosis) acute - Repeat treatment. Check for kidney stones. - UA DIP, URINE (POC) - US KIDNEY/BLADDER - NITROFURANTOIN MONOHYDRATE & MACROCRYSTAL 100 MG ORAL CAP 2. Right-sided low back pain without sciatica, unspecified chronicity - ICD9: 724.2, ICD10: M54.50 Musculoskeletal back pain rule out kidney stone. - US KIDNEY/BLADDER Pradeep Blanton MD documented in this encounterToledo Hospital01-29-2025 Telephone encounter Note * Telephone Encounter - Rosita Vazquez RN - 09/13/2024 9:05 AM EST Patient contacted and given message below and verbalized understanding. Rosita Vazquez RN [facility]01-29-2025 Miscellaneous Notes* Telephone Encounter - Rosita Vazquez RN - 09/13/2024 9:05 AM EST Patient contacted and given message below and verbalized understanding. Rosita Vazquez RN * Telephone Encounter - Jean Kim PA - 09/13/2024 8:18 AM EST Please let patient know her urine culture did reveal a UTI. I have sent an antibiotic into her pharmacy- [facility]. Take this as prescribed. documented in this encounterToledo Hospital01-29-2025 Telephone encounter Note * Telephone Encounter - Jean Kim PA - 09/13/2024 8:18 AM EST Please let patient know her urine culture did reveal a UTI. I have sent an antibiotic [facility] her pharmacy- [facility]. Take this as prescribed. [facility]01-27-[facility] History of Present illness Narrative* Bobby Adame RT(R) - 09/11/2024 10:00 AM EST Radiology Service Progress Note PATIENT NAME: Susan Calderon DATE OF SERVICE: September 11, 2024 TIME: 10:03 AM PATIENT IDENTITY VERIFICATION COMPLETED USING TWO (2) IDENTIFIERS: Name and Date of confirmedby patient verbally. FALL SCREENING: Has the patient had 2 falls in the last year or 1 fall with injury or currently using an Ambulatory Assistive Device (Walker, Cane, Wheelchair, Crutches, etc.)? No PATIENT GENDER DATA: Assigned female at . status: : No status:NO. PATIENT RELEVANT IMPLANT DATA REVIEWED: Yes PATIENT PRESENTS WITH AN IMPLANTABLE OR ATTACHED CHILD WELFARE DIRECTOR: No RADIOLOGY DEPARTMENT: General X-ray: Exam(s) Completed: Spine X-Ray(s): Lumbar AP / LAT / L5-S1 PERIPHERAL IV DATA: Not applicable SIGNED BY: RT Paulina(R) September 11, 2024 10:03 AM documented in this encounterToledo Hospital01-27-2025 NoteHNO ID: [id number] Author: BOBBY ADAME RT(Kb) Service: ? Author Type: Boss Miner Type: Progress Notes Filed: 09/11/2024 10:20 Note [...] PATIENT PRESENTS WITH AN IMPLANTABLE OR ATTACHED CHILD WELFARE DIRECTOR: No RADIOLOGY DEPARTMENT: General X-ray: Exam(s) Completed: Spine X-Ray(s): Lumbar AP / LAT / L5-S1 PERIPHERAL IV DATA: Not applicable SIGNED BY: RT Paulina(R) September 11, 2024 10:03 [facility]01-27-2025 NoteHNO ID: [id number] Author: JEAN KIM PA Service: ? Author Type: Physician Liquor Clerk Type: Progress Notes Filed: 09/11/2024 10:44 Note Text: This note was created using Explarariter. Subjective Susan Calderon is a 69 year [...] Take by mouth two times a day. qdxxcfxw-gvpopg-qdtywwvm acid (COLLAGEN 1500 PLUS C) 500 mg-800 [...] Drug use: No Revi (more content not included)...[facility]01-27-2025 History of Present illness Narrative* Jean Kim PA - 09/11/2024 9:50 AM EST This note was created using Explarariter. Subjective Susan Calderon is a 69 year old female. HPI 69-year-old female presents for low back pain. Patient states she has been having low back painfor the past few weeks. She was moving furniture and feels like this may have flared up her back. She is having right-sided low back pain radiating towards her right hip. Patient does have history oflumbar issues, has had surgery on low back [...] SOFI ALLERGIES Cephalosporins, Penicillins, Doxycycline, Entex Pse [Pseudoephedrine- Guaifenesin], Levaquin [Levofloxacin], and Relafen [Nabumetone] MEDICATIONS cyclobenzaprine [...] Take by mouth two times a day. ipjzmyou-rkvcvr-ltjnejqw acid (COLLAGEN 1500 PLUS C) 500 mg-800 [...] Take by mouth. (Patient not taking: Reported on09/11/2024) ascorbic acid, vitamin C, (VITAMIN C) 500 [...] kg (218 lb 0.6 oz) SpO2 96% BMI34.66 kg/m Physical Exam Vitals and nursing note [...] continue these. - XR LUMBAR GENERAL 3V AP/LAT/T3-O0-vuxaxkx no acute fracture. Unchanged retrolisthesis on L3 [...] ER evaluation. ROSANGELA Paige documented in this encounterToledo Hospital12-28-2024 Telephone encounter Note * Telephone Encounter - Cee Christianson MD - 08/12/2024 1:52 AM EST The following approved medication requests have been transmitted electronically. Requested Prescriptions Pending Prescriptions Disp Refills cyclobenzaprine (FLEXERIL) 5 mg tablet 180 tablet 1 Sig: Take 1-2 tablets by mouth three times a day as needed (cramping and muscle spasm). Cee Christianson MD [facility]12-28-2024 Miscellaneous Notes* Telephone Encounter - Cee Christianson MD - 08/12/2024 1:52 AM EST The following approved medication requests have been transmitted electronically. Requested Prescriptions Pending Prescriptions Disp Refills cyclobenzaprine (FLEXERIL) 5 mg tablet 180 tablet 1 Sig: Take 1-2 tablets by mouth three times a day as needed (cramping and muscle spasm). Cee Christianson MD * Telephone Encounter - Joan Tinajero - 08/11/2024 2:41 PM EST Patient has been identified by name and [...] and advise. Joan Tinajero documented in this encounterToledo Hospital12-27-2024 Telephone encounter Note * Telephone Encounter - Joan Tinajero - 08/11/2024 2:41 PM EST Patient has been identified by name and [...] spasm). Please review and advise. Joan Tinajero [facility]10-09-20[facility] Note* Discharge Instr - Nursing - Luz Pepe RN - 05/24/2024 11:14 AM EDT The patient received a copy of Colonoscopy discharge instructions that contain information for how to contact the physician who performed the procedure and when to seek medical care. [facility]10-[facility] Miscellaneous Notes* Discharge Instr - Nursing - Luz Pepe RN - 05/24/2024 11:14 AM EDT The patient received a copy of Colonoscopy discharge instructions that contain information for how to contact the physician who performed the procedure and when to seek medical care. documented in this encounterToledo Hospital10-09-2024 NoteHNO ID: [id number] Author: LUZ PEPE RN Service: ? Author Type: Registered Nurse Type: Nursing Progress Note Filed: 05/24/2024 11:12 Note Text: Abdomen soft non-distended. Will continue to monitor.[facility] 05-24-20[facility] Nurse Note* Luz Pepe RN - 05/24/2024 10:56 AM EDT Abdomen soft non-distended. Will continue to monitor. [facility] Nurse Note* Luz Pepe RN - 05/24/2024 10:56 AM EDT Abdomen soft non-distended. Will continue to monitor. documented in this encounterToledo Hospital10-09-2024 History of Present illness Narrative* Matias Zapata DO - 05/24/2024 10:00 AM EDT PROCEDURAL SEDATION HISTORY AND PHYSICAL EXAM SERVICE [...] mouth two times a day. 05/23/2024 Yes uacycedc-ncrhxv-fhbjjhoi acid (COLLAGEN 1500 PLUS C) 500 mg-800 mcg- 50 mg cap Take by mouth. 05/23/2024 Yes lisinopril (ZESTRIL) 40 mg tablet Take 1 tablet by mouth once daily. DOSE CHANGE - TAKE ONE DAILY 05/24/2024 at 0745 Yes omega-3 DHA-EPA (FISH OIL) 1,200 (144-216) mg capsule Take 1 capsule by mouth daily with breakfast.05/23/2024 Yes magnesium oxide 400 mg magnesium tab [...] 2024 TIME: 8:18 PM documented in this encounterToledo Hospital10-09-2024 NoteHNO ID: [id number] Author: MATIAS ZAPATA DO Service: General Surgery [...] mouth two times a day. 05/23/2024 Yes trqbenzz-qxwyqb-wwcxkrrw acid (COLLAGEN 1500 PLUS C) 500 mg-800 [...] * Medication and Non-Pharmacol (more content not included)...[facility]09-30-20[facility] Telephone encounter Note* Telephone Encounter - Shimon Choudhury RN - 05/15/2024 10:23 AM EDT Phoned patient and given provider's message below with verbalized understanding. Patient agreeable. [facility]-30-[facility] Miscellaneous Notes* Telephone Encounter - Shimon Choudhury RN - 05/15/2024 10:23 AM EDT Phoned patient and given provider's message below with verbalized understanding. Patient agreeable. * Telephone Encounter - Cee Christianson MD - 05/14/2024 4:16 PM EDT For just screening colonoscopy, does not have [...] aspirin, may continue aspirin as noted above. * Telephone Encounter - Shantel Jaramillo LPN - 05/04/2024 2:30 PM EDT Pt walked in with questions of medicines [...] a sip of water. documented in this encounterToledo Hospital09-29-2024 Telephone encounter Note * Telephone Encounter - Cee Christianson MD - 05/14/2024 4:16 PM EDT For just screening colonoscopy, does not have [...] aspirin, may continue aspirin as noted above. [facility]-19-20[facility] Telephone encounter Note* Telephone Encounter - Shantel Jaramillo LPN - 05/04/2024 2:30 PM EDT Pt walked in with questions of medicines [...] and lisinopril with a sip of water. [facility]-06-[facility] Note* Addendum Note - Cee Christianson MD - 04/21/2024 9:30 PM EDTAddended by: CEE CHRISTIANSON on: 04/21/2024 09:30 PM Modules accepted: Orders [facility]09-06-2024 Miscellaneous Notes* Addendum Note - Cee Christianson MD - 04/21/2024 9:30 PM EDTAddended by: CEE CHRISTIANSON on: 04/21/2024 09:30 PM Modules accepted: Orders * Telephone Encounter - Cee Christianson MD - 04/21/2024 9:29 PM EDT The following approved medication requests have been transmitted electronically. Requested Prescriptions Signed Prescriptions Disp Refills peg 3350-Electrolytes (GOLYTELY) 236-22.74-6.74 -5.86 gram suspension 1 Each 0 Sig: Take 4,000 mL by mouth one time only for 1 dose. As instructed Authorizing Provider: CEE CHRISTIANSON MD * Telephone Encounter - Danuta Hyman - 04/21/2024 3:32 PM EDT Please send Jose script to [facility] [address] [place] [id number] documented in this encounterTol[facility]09-[facility]24 Telephone encounter Note * Telephone Encounter - Cee Christianson MD - 04/21/2024 9:29 PM EDT The following approved medication requests have been transmitted electronically. Requested Prescriptions Signed Prescriptions Disp Refills peg 3350-Electrolytes (GOLYTELY) 236-22.74-6.74 -5.86 gram suspension 1 Each 0 Sig: Take 4,000 mL by mouth one time only for 1 dose. As instructed Authorizing Provider: CEE CHRISTIANSON MD [facility]09-06-2024 Telephone encounter Note* Telephone Encounter - Danuta Hyman - 04/21/2024 3:32 PM EDT Please send Jose script to [facility] [address] [place] [address] [facility] Work Phone: [phone] 198-329908-15-2024 Telephone encounter Note* Telephone Encounter - Amy Muller RN - 03/30/2024 9:55 AM EDT Patient notified of provider's instructions. Patient verbalizes understanding. Amy Muller RN [facility]08-15-2024 Miscellaneous Notes* Telephone Encounter - Amy Muller RN - 03/30/2024 9:55 AM EDT Patient notified of provider's instructions. Patient verbalizes understanding. Amy Muller RN * Telephone Encounter - Ariana Cherry RN - 03/29/2024 7:51 PM EDT Called and left a voicemail for the Patient to call back and ask for a nurse to receive the providers message. Ariana Cherry RN * Telephone Encounter - Cee Christianson MD - 03/29/2024 7:37 PM EDT Will okay RX since was recently seen. [...] 180 days. Authorizing Provider: CEE CHRISTIANSON MD * Telephone Encounter - Lucille Ji LPN - 03/29/2024 2:57 PM EDT Phoned patient and asked about her back pain. She said lower back radiates to her buttocks and downher legs, she has had 2 previous surgeries. Patient said she is currently taking Gabapentin 400 mg one three times daily. The rx she has was filled 04/05/2023 from [facility] and still has some, needs new rx. She is also taking Ibuprofen 200 mg one tablet twice daily and Cyclobenzaprine 5 mg one to two tablets depending on her pain three times daily. Patient said she [facility]. If she is not home can leave message for her. Please advise * Telephone Encounter - Maite Molina - 03/29/2024 2:45 PM EDT Patient calling today to request medication gabapentin(NEURONTIN 300 MG CAP) Patient is asking if she could increase the dosage because she is having increased spine pain. Patient last seen - 02/21/24 Future appointment scheduled: yes [facility]ACY: [facility] [place] documented in this encounterToledo Hospital08-14-2024 Telephone encounter Note * Telephone Encounter - Ariana Cherry RN - 03/29/2024 7:51 PM EDT Called and left a voicemail for the Patient to call back and ask for a nurse to receive the providers message. Ariana Cherry RN [facility]08-14-2024 Telephone encounter Note* Telephone Encounter - Cee Christianson MD - 03/29/2024 7:37 PM EDT Will okay RX since was recently seen. [...] 180 days. Authorizing Provider: CEE CHRISTIANSON MD [facility]08-14-2024 Telephone encounter Note* Telephone Encounter - Lucille Ji LPN - 03/29/2024 2:57 PM EDT Phoned patient and asked about her back pain. She said lower back radiates to her buttocks and downher legs, she has had 2 previous surgeries. [...] three times daily. Patient said she uses [facility] for her pharmacy. If she is not home can leave message for her. Please advise [facility]08-14-2024 Telephone encounter Note* Telephone Encounter - Maite Molina - 03/29/2024 2:45 PM EDT Patient calling today to request medication gabapentin(NEURONTIN 300 MG CAP) Patient is asking if she could increase the dosage because she is having increased spine pain. Patient last seen - 02/21/24 Future appointment scheduled: yes [facility]ACY: [facility] [facility]08-14-2024 Telephone encounter Note* Telephone Encounter - Maite Molina - 03/29/2024 2:44 PM EDT Prescription Refill Information The patient has been [...] Maite Molina March 29, 2024 2:44 PM [facility]08-14-2024 Miscellaneous Notes* Telephone Encounter - Maite Molina - 03/29/2024 2:44 PM EDT Prescription Refill Information The patient has been [...] 29, 2024 2:44 PM documented in this encounterToledo Hospital07-08-2024 Instructions* Patient Instructions* Cee Christianson MD - 02/21/2024 9:43 AM [...] If you do not have a responsible transit driver (family member or friend) withyou to take you home, your exam cannot be done with sedation and will be cancelled. Please bring a list of all of your current medications, including any Grxd-rhc-Bpdwzsg medications with you. Medications If you take insulin, diabetic medications or blood thinners such as Coumadin (warfarin), Plavix (clopidogrel), Ticlid (ticlopidine hydrochloride), Agrylin (anagrelide), Xarelto (Rivaroxaban), Pradaxa(Dabigatran), Eliquis (Apixaban), and Effient (Prasugrel). You MUST [...] every 15 minutes for a total of 2glasses. You may continue to drink clear liquids up to (three) 3 hours before your exam. 2 07/2019 documented in this encounterToledo Hospital07-08-2024 NoteHNO ID: [id number] Author: CEE CHRISTIANSON MD Service: ? Author Type: Physician Type: Progress Notes Filed: 02/22/2024 00:05 Note Text: This note was created using Explarariter. Subjective Susan Calderon is a 68 year [...] % 57.0 Abs Kyle (more content not included)...[facility]07-08-2024 History of Present illness Narrative* Cee Christianson MD - 02/21/2024 9:06 AM EDT This note was created using NoteWriter. Subjective [...] Abs Lymph 1.00 - 4.00 k/uL 1.50 [place]% % 9.0 Abs [place] <0.87 k/uL 0.46 Eosin% % 3.1 Abs [...] unspecified seasonality, unspecified trigger J30.9 montelukast (SINGULAIR) 10mg tablet Continue Singulair. Adjust meds as needed [...] the date of the service which included revu-mt-pjgw patient care, completing clinical documentation, obtaining and/or reviewing separately obtained history, performing a medically appropriate examination, counseling and educating the patient/family/caregiver, ordering medications, tests, or procedures, independently interpreting results (not separately reported), and communicating results to the patient/family/caregiver. Cee Christianson MD documented in this encounterToledo Hospital07-03-2024 NotePatient Outreach (INTMMN) SUSAN CALDERON ([id number]) 1955 F TXT Date Time Provider Department [...] for screening mammogram for breast cancer [Z12.31] Order(s):[facility] SCREENING W KEVIN [[id number]] Order #: [id number] FUTURE Prescriptions as of 02/21/2024 - lisinopril [...] 02/19/2023 Encounter Status:Closed by MICHAEL MIRANDA on 02/21/24[facility] 02-01-2024 Telephone encounter Note* Telephone Encounter - Lety Gonzalez OCCA - 02/01/2024 12:34 PM EDT TC to patient who is notified paperwork has been placed in medical records for bean picker. RIGOBERTO Lafleur [facility]06-18-2024 Miscellaneous Notes* Telephone Encounter - Lety Gonzalez OCCA - 02/01/2024 12:34 PM EDT TC to patient who is notified paperwork has been placed in medical records for bean picker. RIGOBERTO Lafleur * Telephone Encounter - Thuy Stewart APRN.CNP - 02/01/2024 12:26 PM EDT I will print this. * Telephone Encounter - Elke Gregorio LPN - 02/01/2024 12:13 PM EDT Pt calling to see if she can get a paper that was given to her maybe last visit that had a list of foods to eat, examples and quantity. Pt reports the list had proteins listed and what the carbs and calories were on certain food that she should be eating. She has misplaced this paper and reports itwas helping her loose weight. ice she has not been able to find she is now not losing much weight. Please call pt and she will stop in and bean picker. Elke Gregorio LPN documented in this encounterToledo Hospital06-18-2024 Telephone encounter Note * Telephone Encounter - Thuy Stewart APRN.CNP - 02/01/2024 12:26 PM EDT I will print this. [facility]06-18-[facility]24 Telephone encounter Note* Telephone Encounter - Elke Gregorio LPN - 02/01/2024 12:13 PM EDT Pt calling to see if she can get a paper that was given to her maybe last visit that had a list of foods to eat, examples and quantity. Pt reports the list had proteins listed and what the carbs and calories were on certain food that she should be eating. She has misplaced this paper and reports itwas helping her loose weight. ice she has not been able to find she is now not losing much weight. Please call pt and she will stop in and bean picker. Elke Gregorio LPN [facility]06-04-2024 Telephone encounter Note* Telephone Encounter - Sole Morris MA - 01/18/2024 1:57 PM EDT Pt notified and verbalized understanding. Sole Morris MA [facility]06-04-2024 Miscellaneous Notes* Telephone Encounter - Sole Morris MA - 01/18/2024 1:57 PM EDT Pt notified and verbalized understanding. Sole Morris MA * Telephone Encounter - Pradeep Blanton MD - 01/18/2024 12:48 PM EDT Fasting lipid panel ordered. Do with all other labs ordered. * Telephone Encounter - Tiarra Warner RN - 01/18/2024 10:08 AM EDT Pt saw Thuy Stewart on 12/14/23. Pt [...] Pt has 2 sets of lab orders in.One from Thuy and one from Dr. Christianson [...] drawn. Call pt on her cell phone [phone]. documented in this encounterToledo Hospital06-04-2024 Telephone encounter Note * Telephone Encounter - Pradeep Blanton MD - 01/18/2024 12:48 PM EDT Fasting lipid panel ordered. Do with all other labs ordered. [facility] Work Phone: 1(732) 705-458706-04-2024 History of Present illness Narrative* Tiarra Warner RN - 01/18/2024 10:45 AM EDT Pt had 2 sets of orders in by 2 different providers. One set discontinued. Order for lipid panel placed to have drawn with other labs. documented in this encounterToledo Hospital06-04-2024 Telephone encounter Note * Telephone Encounter - Tiarra Warner RN - 01/18/2024 10:08 AM EDT Pt saw Thuy Stewart on 12/14/23. Pt [...] Pt has 2 sets of lab orders in.One from Thuy and one from Dr. Christianson [...] drawn. Call pt on her cell phone [phone]. [facility]05-31-2024 Telephone encounter Note* Telephone Encounter - Joan Neal - 01/14/2024 9:15 AM EDT Patient has been identified by name and [...] found Please advise. Thank you. Joan Neal. [facility]05-31-2024 Miscellaneous Notes* Telephone Encounter - Joan Neal - 01/14/2024 9:15 AM EDT Patient has been identified by name and [...] Thank you. Joan Neal. documented in this encounterToledo Hospital05-03-2024 History of Present illness Narrative* Edgard Dubois PA-C - 12/17/2023 11:17 AM EDTAssociated Order(s): Large Joint Arthro/Inj: L knee joint [...] full extension, internal/external rotation adequate, and no painwith log roll Neurovascular Status: Sensation Intact, Moves foot and ankle up & down, and 2+ dorsalis pedis Strength: 5 Skin: Normal RADIOGRAPHS (personally reviewed): Severe left knee osteoarthritis predominantly in the medial compartment with qjfj-hp-wlgd articulation MRI: None DIAGNOSIS Encounter Diagnosis ICD-10-CM [...] which included preparing to see the patient, fokn-dx-qvib patient care, completing clinical documentation, obtaining and/or reviewing separately obtained history, performing a medically appropriate examination, counseling and educating the pat ient/family/caregiver, ordering medications, tests, or procedures, communicating with other HCPs (not separately reported), independently interpreting results (not separately reported), communicatingresults to the patient/family/caregiver, and care coordination (not separately reported). PROCEDURE: Large Joint Arthro/Inj: L knee joint Informed Consent Consent Obtained: Verbal [place] Protocol A moment to CARE was completed. [...] foreign bodies accounted for. Edgard Dubois PA-C * Tiffani Manzo MA - 12/17/2023 11:09 AM EDT AMB ROOMING INTAKE FLOWSHEET DATA Pain Pain Level: 6 Pain Location: Knee-Left Description: Shooting Duration Amount of Time: 1 Duration Units: Years Frequency: Intermittent (with weight bearing) Intervention/Comfort measure: Cold, Reposition, Other: See comment (brace prn) documented in this encounterToledo Hospital05-03-2024 History of Present illness Narrative* Mckenzie Harmon RT(R) - 12/17/2023 10:50 AM EDT Radiology Service Progress Note PATIENT NAME: Susan Calderon DATE OF SERVICE: December 17, 2023 TIME: 10:53 AM PATIENT IDENTITY VERIFICATION COMPLETED USING TWO (2) IDENTIFIERS: Name and Date of confirmedby patient verbally. FALL SCREENING: Has the patient had 2 falls in the last year or 1 fall with injury or currently using an Ambulatory Assistive Device (Walker, Cane, Wheelchair, Crutches, etc.)? No PATIENT GENDER DATA: Female. status: : No status: NO. PATIENT RELEVANT IMPLANT DATA REVIEWED: Yes PATIENT PRESENTS WITH AN IMPLANTABLE OR ATTACHED CHILD WELFARE DIRECTOR: No RADIOLOGY DEPARTMENT: General X-ray: Exam(s) Completed: Lower Extremity X- Ray(s): Knee, AP / Lat / Tunne / Merchant Left and Wt. Bearing PERIPHERAL IV DATA: Not applicable SIGNED BY: RT Aidee(R) December 17, 2023 10:53 AM documented in this encounterToledo Hospital04-30-2024 History of Present illness Narrative* Thuy Stewart APRN.OFFICE 365 CONSULTANT - 12/14/2023 9:09 AM EDT SUBJECTIVE Susan Calderon is a 68 year [...] from today's visit and in agreement with treatmentplan. Questions answered. Agrees to call the office [...] as well as compliance with taking medications. Age- appropriate health preventative measures were discussed. Return if symptoms worsen or fail to improve, for Keep next scheduled appointment.. Thuy Stewart APRN-OFFICE 365 CONSULTANT documented in this encounterToledo Hospital02-19-2024 Miscellaneous Notes* Telephone Encounter - Amy Muller RN - 10/04/2023 11:12 AM EST [facility] pharmacy calls and is asking for refills on medication. Called patient and patient states that she would rather have medications to all be sent to [facility]. Please send all future refills to [facility]. Amy Muller RN documented in this encounterToledo Hospital02-15-2024 Miscellaneous Notes* Telephone Encounter - Carly Fink - 09/30/2023 2:31 PM EST Patient has been identified by name and [...] Thank you. Carly Fink. documented in this encounterToledo Hospital02-12-2024 Miscellaneous Notes* Telephone Encounter - Neeta Humphrey LPN - 09/27/2023 10:48 AM EST Patient notified and voiced her understanding. She does have a BP cuff and will monitor her BP. * Telephone Encounter - Cee Christianson MD - 09/26/2023 5:26 PM EST I think the 10 mg was to be stopped when dose as increased from 30 mg (20mg plus 10mg) to 40 mg. Would have her take just 40 mg dose daily. Does she have a BP cuff? * Telephone Encounter - Neeta Humphrey LPN - 09/24/2023 2:12 PM EST Patient stopped in for a refill on her Lisinopril 10 mg. Lisinopril 10mg was d/c'd off he med list 02/2023. Patient is also taking a 40 mg tablet. Asking if she should continue taking to the 10 mg andthe 40 mg? If so she will need a refill for the 10 mg. Please advise. documented in this encounterToledo Hospital01-30-2024 History of Present illness Narrative* Cee Christianson MD - 09/14/2023 1:28 PM EST This note was created using Explarariter. Subjective Susan Calderon is a 68 year [...] Take 500 mg by mouth once daily. NWXWNNX-OEDZ-RZAFV-OREG-CAPRYL ORAL Take 1 tablet by mouth once [...] 1 tablet by mouth daily at bedtime. WHNINJK-BVVXCODDD-INUX ORAL Take 1 tablet by mouth once [...] for immunization Z23 RSV PRINTED PHARMACY INSTRUCTIONS [employer] [place] COVID-19 VACCINE ( SEASON) AGE 12+ YR 3. Primary hypertension [...] lifestyle changes for effective weight loss as wellas prevention of DM, and control of BP and lipids. Cee Christianson MD documented in this encounterToledo Hospital09-25-2023 Miscellaneous Notes* Telephone Encounter - Carol Danielle LPN - 05/10/2023 1:41 PM EDT Please clarify directions. * Telephone Encounter - Deanna Burns - 05/10/2023 11:44 AM EDT Pt states taking 2 tablets 2 times daily Morning and bedtime but not sure if she is allowed to takeit middle of day at that rate as [...] and advise. Deanna Burns documented in this encounterTol[facility] Hospital07-13-2023 Miscellaneous Notes* Telephone Encounter - Catalina Diaz LPN - 02/25/2023 1:19 PM EDT Change of pharmacy * Telephone Encounter - Celena Pratt - 02/25/2023 1:10 PM EDT Patient has been identified by name and [...] once daily. Please review and advise. Celena Gorman documented in this encounterToledo Hospital07-13-2023 Miscellaneous Notes* Telephone Encounter - Shante Evans LPN - 02/25/2023 11:39 AM EDT Patient has been identified by name and [...] Please advise. Thank you. Shante Evans LPN * Telephone Encounter - Sole Maria - 02/25/2023 11:20 AM EDT Patient has been identified by name and [...] and advise. Sole Maria documented in this encounterToledo Hospital07-07-2023 Instructions* Patient Instructions* Cee Christianson MD - 02/19/2023 11:10 AM EDT Labs anytime in the next 3 months. documented in this encounterToledo Hospital07-07-2023 History of Present illness Narrative* Cee Christianson MD - 02/19/2023 10:46 AM EDT Images from the original note were not included. This note was created using [employer]. Subjective Susan Calderon is a 67 year [...] down and tenderness better. Was hurting a lotbefore that. Tenderness medial knee on tibial area. [...] Take 500 mg by mouth once daily. CHMEKGX-AMSC-NFUCO-OREG-CAPRYL ORAL Take 1 tablet by mouth once [...] by mouth three times daily as needed (crampingand muscle spasm). (Patient taking differently: Take 5 [...] Take 10 mg by mouth once daily. LGUDOIT-OXTUHPNPZ-LYKF ORAL Take 1 tablet by mouth once [...] unspecified seasonality, unspecified trigger J30.9 montelukast (SINGULAIR) 10mg tablet montelukast (SINGULAIR) 10 mg tablet DISCONTINUED: [...] sleep. Cee Christianson MD documented in this encounterToledo Hospital05-22-2023 History of Present illness Narrative* Allan Pedraza RT(R) - 01/04/2023 11:30 AM EDT Radiology Service Progress Note PATIENT NAME: Susan Calderon DATE OF SERVICE: January 04, 2023 TIME: 11:17 AM PATIENT IDENTITY VERIFICATION COMPLETED USING TWO (2) IDENTIFIERS: Name and Date of confirmedby patient verbally. FALL SCREENING: Has the patient [...] 04, 2023 11:17 AM documented in this encounterToledo Hospital05-22-2023 History of Present illness Narrative* Elfego Burdick Mammo Tech - 01/04/2023 10:50 AM EDT Radiology Service Progress Note PATIENT NAME: Susan Calderon DATE OF SERVICE: January 04, 2023 TIME: 10:50 AM PATIENT IDENTITY VERIFICATION COMPLETED USING TWO (2) IDENTIFIERS: Name and Date of confirmedby patient verbally. FALL SCREENING: Has the patient had 2 falls in the last year or 1 fall with injury or currently using an Ambulatory Assistive Device (Walker, Cane, Wheelchair, Crutches, etc.)? No PATIENT GENDER DATA: Female. status: : No status: NO. PATIENT RELEVANT IMPLANT DATA REVIEWED: Not Applicable RADIOLOGY DEPARTMENT: Mammography PERIPHERAL IV DATA: Not applicable SIGNED BY: Elfego Burdick iCoolhunto Ricky January 04, 2023 10:50 AM documented in this encounterToledo Hospital05-05-2023 History of Present illness Narrative* Thuy Stewart APRN.OFFICE 365 CONSULTANT - 12/18/2022 10:50 AM EDT SUBJECTIVE Susan Calderon is a 67 year old female here today for a check up on her medical problems. Chief Complaint Patient presents with: F/U 6 months HPI Susan is a 67 year old female who presents for follow-up for hypertension. They are here today for a recheck of blood pressure. Blood pressure appears to be elevated. Denies any symptoms referable toelevated blood pressure. Specifically denies headache, chest pain, [...] Take 250 mg by mouth once daily. SFEWUGP-BZRI-SKDAI-OREG-CAPRYL ORAL Take 1 tablet by mouth once [...] Take 400 Units by mouth once daily. FAIUHEZ-LRHANOYMW-SXJW ORAL Take 1 tablet by mouth once [...] by mouth three times daily as needed (crampingand muscle spasm). atenolol (TENORMIN) 25 mg tablet [...] with patient, and I recommended no further interventionat this time. 4. Obesity, Class II, BMI [...] from today's visit and in agreement with treatmentplan. Questions answered. Agrees to call the office [...] as well as compliance with taking medications. Age- appropriate health preventative measures were discussed. Return if symptoms worsen or fail to improve, for recheck blood pressure, Keep next scheduled appointment.. Thuy Stewart APRN-KATIUSKA documented in this encounterToledo Hospital01-16-2023 History of Present illness Narrative* Nichelle Hennessy MA - 08/31/2022 1:36 PM EST POPULATION HEALTH NAVIGATION OUTREACH Action/FYI Unable to [...] 31, 2022 1:36 PM documented in this encounterToledo Hospital12-19-2022 Miscellaneous Notes* Telephone Encounter - Lucille Ji LPN - 08/03/2022 11:03 AM EST Patient returned call and went over notes below from Zakia Sneed SMOKEHOUSE OPERATOR with understanding. * Telephone Encounter - Carol Danielle LPN - 08/03/2022 11:00 AM EST LEFT MESSAGE FOR PATIENT TO CALL OFFICE. * Telephone Encounter - Neeta Humphrey LPN - 07/31/2022 4:13 PM EST Left message for patient to return call to office. * Telephone Encounter - Zakia Sneed APRN.CNS - 07/31/2022 3:41 PM EST BPs look good. Continue unchanged for now * Telephone Encounter - Danisha Camacho - 07/31/2022 2:13 PM EST Patient wanted to update provider on most recent blood pressure results since beginning new medication regiment. 07/31/22 12:30 128/82 pulse 68 1:00 129/80 pulse 69 2:00 1199/75 pulse 65 documented in this encounterToledo Hospital12-15-2022 Miscellaneous Notes* Telephone Encounter - Zakia Sneed APRN.CNS - 07/30/2022 7:24 AM EST Noted, agree. If taking Lisinopril 40 mg daily most of the time in the next 2 weeks can prescribe at that level. * Telephone Encounter - Carol Danielle LPN - 07/29/2022 3:56 PM EST Notified patient of same. She states there are times that she will take up to 40 mg of Lisinopril due to her blood pressure being high. She claims that Dr. Christianson told her she could take an extra dose as long as she doesn'tgo over 40 mg. Asked patient to keep track of her blood pressure of the next two weeks and what days she takes an extras dose and call office back with report. * Telephone Encounter - Carol Danielle LPN - 07/28/2022 4:48 PM EST LEFT MESSAGE FOR PATIENT TO CALL OFFICE. * Telephone Encounter - Zakia Sneed APRN.CNS - 07/28/2022 4:32 PM EST I will send in a prescription for lisinopril 30 mg daily so she only needs to take one pill after she completes her current prescriptions. * Telephone Encounter - Charmaine Yee LPN - 07/28/2022 3:22 PM EST Pt reports the pill bottle states lisinopril 20 mg: Take 1 tablet by mouth once daily in addition to 10 mg tablet for a total of 30 mg daily. Pt reports while she has been sick and taking otc cough medication her bp was creeping up so she has been taking an additional 10 mg to equal 40 mg daily. Charmaine Yee LPN * Telephone Encounter - Ariana Cherry RN - 07/27/2022 4:27 PM EST Called and left a voicemail for the Patient to call back and ask for a nurse to receive the providers message. Ariana Cherry RN * Telephone Encounter - Zakia Sneed APRN.THERESA - 07/27/2022 3:53 PM EST Need pill bottle information if willing to look. * Telephone Encounter - Charmaine Yee LPN - 07/27/2022 2:17 PM EST Pt calls back to report she was [...] want to check them. Charmaine Yee LPN * Telephone Encounter - Rosita Vazquez RN - 07/27/2022 9:41 AM EST VM left for patient to call PCP office for message below. Rosita Vazquez RN * Telephone Encounter - Zakia Sneed APRN.JACK MACHINE OPERATOR - 07/27/2022 8:46 AM EST Please check with her regarding lisinopril dose on her pill bottles / what she is taking daily previously and currently. documented in this encounterToledo Hospital11-08-2022 Instructions* Patient Instructions* Zakia Sneed APRN.CNS - 06/23/2022 2:38 PM EST Check to see if your insurance covers shingles vaccine and what location to get the vaccine -usually best covered at your local pharmacy where you get prescriptions filled documented [facility] History of Present illness Narrative* Zakia Sneed APRN.CNS - 06/23/2022 2:19 PM EST SUBJECTIVE: SPIROMETRY Never done BP CONTROLLED (<130/80) [...] by mouth three times daily as needed (crampingand muscle spasm). olopatadine (PATANOL) 0.1 % ophthalmic [...] Nonfasting <2.54 mg/dL 0.76 documented [facility] encounter[facility]-19-[facility]22 Miscellaneous Notes* Letter - Mammography Coordinator - 01/01/2022 1:33 PM EDT January 01, 2022 PID: [id number] Susan Calderon [address] [phone] Dear Ms. Calderon, We are pleased to [...] report will be [facility] as part of your permanent medical record and are available for your continuing care. Thank you for allowing us to help in meeting your health care needs. Sincerely, Dr. Manzano Interpreting Radiologist (Normal over 40) documented in this encounterToledo [facility]05-19-2022 History of Present illness Narrative* Elfego Burdick [facility] [employer] - 01/01/2022 12:30 PM EDT Radiology Service Progress Note PATIENT NAME: Susan Calderon DATE OF SERVICE: January 01, 2022 TIME: 12:47 PM PATIENT IDENTITY VERIFICATION COMPLETED USING TWO (2) IDENTIFIERS: Name and Date of confirmedby patient verbally. FALL SCREENING: Has the patient had 2 falls in the last year or 1 fall with injury or currently using an Ambulatory Assistive Device (Walker, Cane, Wheelchair, Crutches, etc.)? No PATIENT GENDER DATA: Female. status: : No status: NO. PATIENT RELEVANT IMPLANT DATA REVIEWED: Not Applicable RADIOLOGY DEPARTMENT: Mammography PERIPHERAL IV DATA: Not applicable SIGNED BY: Elfego Burdick Vizerra Ricky January 01, 2022 12:47 PM documented in this encounterTol[facility]05-06-[facility]22 History of Present illness Narrative* Cee Christianson MD - 12/19/2021 2:32 PM EDT Images from the original note were not included. This note was created using [employer]. Subjective Susan Calderon is a 66 year [...] the shots and Dr. Kruse would not lether stay after the shot till numbness worse [...] by mouth three times daily as needed (crampingand muscle spasm). olopatadine (PATANOL) 0.1 % ophthalmic [...] unspecified seasonality, unspecified trigger J30.9 montelukast (SINGULAIR) 10mg tablet 8. Moderate persistent asthma without complication [...] PANEL Cee Christianson MD documented in this encounterT[facility]05-03-2022 Miscellaneous Notes* Telephone Encounter - Elke Gregorio LPN - 12/16/2021 10:57 AM EDT Spoke with pt and she has enough medication till Wednesday her apt with you and you can refill and discuss at that time. Elke Gregorio LPN * Telephone Encounter - Cee Christianson MD - 12/15/2021 3:34 PM EDT Does patient have enough refills to last till appointment this week? * Telephone Encounter - Lucille Ji LPN - 12/15/2021 12:48 PM EDT Patient has been identified by name and [...] you. Lucille Ji LPN documented in this encounterT[facility] History of Past illness Narrative* Problem Noted Date Resolved Date Depressive disorder, not elsewhere classified 01/26/2021 documented as of this encounter (statuses as of 12/08/2021) [facility] Narrative* Problem Noted Date Resolved Date Depressive disorder, not elsewhere classified 01/26/2021 documented as of this encounter (statuses as of 12/16/2021) [address]2005 History of Past illness Narrative* Problem Noted Date Resolved Date Depressive disorder, not elsewhere classified 01/26/2021 documented as of this encounter (statuses as of 01/02/2022) [address]02[address]2005 History of Past illness Narrative* Problem Noted Date Resolved Date Depressive disorder, not elsewhere classified 01/26/2021 documented as of this encounter (statuses as of 01/03/2022) [address]02[address]2005 History of Past illness Narrative* Problem Noted Date Resolved Date Depressive disorder, not elsewhere classified 01/26/2021 documented as of this encounter (statuses as of 02/12/2022) [address]2005 History of Past illness Narrative* Problem Noted Date Resolved Date Depressive disorder, not elsewhere classified 01/26/2021 documented as of this encounter (statuses as of 02/20/2022) [address] [place] [address] History of Past illness Narrative* Problem Noted Date Resolved Date Depressive disorder, not elsewhere classified 01/26/2021 documented as of this encounter (statuses as of 06/25/2022) [place] [address] History of Past illness Narrative* Problem Noted Date Resolved Date Depressive disorder, not elsewhere classified 01/26/2021 documented as of this encounter (statuses as of 07/30/2022) [address]2005 History of Past illness Narrative* Problem Noted Date Resolved Date Depressive disorder, not elsewhere classified 01/26/2021 documented as of this encounter (statuses as of 08/03/2022) [address]02[address]2005 History of Past illness Narrative* Problem Noted Date Resolved Date Depressive disorder, not elsewhere classified 01/26/2021 documented as of this encounter (statuses as of 08/31/2022) [place] [address] History of Past illness Narrative* Problem Noted Date Resolved Date Depressive disorder, not elsewhere classified 01/26/2021 documented as of this encounter (statuses as of 12/18/2022) [address]2005 History of Past illness Narrative* Problem Noted Date Diagnosed Date Resolved Date Depressive disorder, not elsewhere classified 04/17/20 05 01/26/2021 documented as of this encounter (statuses as of 02/26/2023) [address]2005 History of Past illness Narrative* Problem Noted Date Diagnosed Date Resolved Date Depressive disorder, not elsewhere classified 04/17/20 05 01/26/2021 documented as of this encounter (statuses as of 02/26/2023) [facility]* Problem Noted Date Diagnosed Date Resolved Date Depressive disorder, not elsewhere classified 04/17/20 05 01/26/2021 documented as of this encounter (statuses as of 03/29/2023) [place] [address] History of Past illness Narrative* Problem Noted Date Diagnosed Date Resolved Date Depressive disorder, not elsewhere classified 04/17/20 05 01/26/2021 documented as of this encounter (statuses as of 05/11/2023) [place] [address] History of Past illness Narrative* Problem Noted Date Diagnosed Date Resolved Date Depressive disorder, not elsewhere classified 04/17/20 05 01/26/2021 documented as of this encounter (statuses as of 06/20/2023) [facility]* Problem Noted Date Diagnosed Date Resolved Date Depressive disorder, not elsewhere classified 04/17/20 05 01/26/2021 documented as of this encounter (statuses as of 06/20/2023) [facility] N[facility]ative* Problem Noted Date Diagnosed Date Resolved Date Depressive disorder, not elsewhere classified 04/17/20 05 01/26/2021 documented as of this encounter (statuses as of 07/06/2023) [place] [address] History of Past illness Narrative* Problem Noted Date Diagnosed Date Resolved Date Depressive disorder, not elsewhere classified 04/17/20 05 01/26/2021 documented as of this encounter (statuses as of 09/27/2023) [place] [address] History of Past illness Narrative* Problem Noted Date Diagnosed Date Resolved Date Depressive disorder, not elsewhere classified 04/17/20 05 01/26/2021 documented as of this encounter (statuses as of 09/30/2023) [address]2005 History of Past illness Narrative* Problem Noted Date Diagnosed Date Resolved Date Depressive disorder, not elsewhere classified 04/17/20 05 01/26/2021 documented as of this encounter (statuses as of 10/04/2023) [facility]* Problem Noted Date Diagnosed Date Resolved Date Depressive disorder, not elsewhere classified 04/17/20 05 01/26/2021 documented as of this encounter (statuses as of 10/15/2023) [facility] Diagnosis Encounter for screening mammogram for breast cancer [facility] Diagnosis Essential hypertension Unspecified essential hypertension Allergic rhinitis, unspecified seasonality, unspecified trigger [facility] Diagnosis Encounter for screening mammogram for breast cancer [facility] Diagnosis Essential hypertension- Primary Unspecified essential [...] use of medication [facility] Diagnosis Asthma- Primary Unspecified asthma Need for shingles vaccine Need for prophylactic vaccination and inoculation against other viral diseases Screening for osteoporosis Special screening for osteoporosis Asymptomatic menopause Encounter for immunization Need for other specified prophylactic vaccination against single bacterial disease [facility]* Diagnosis Primary hypertension- Primary Unspecified essential hypertension Tobacco use disorder Generalized anxiety disorder Obesity, Class II, BMI 35-39.9 Obesity, unspecified Encounter for screening mammogram for breast cancer Screening for osteoporosis Special screening for osteoporosis Asymptomatic menopause Screening for depression [facility] Diagnosis Primary hypertension Unspecified essential hypertension Essential hypertension Unspecified essential hypertension [facility] Diagnosis Essential hypertension Unspecified essential hypertension [facility] Diagnosis Pes anserinus bursitis of left [...] use of medication [facility] Diagnosis Encounter for screening mammogram for breast cancer [facility] Diagnosis Screening for osteoporosis Special screening for osteoporosis Asymptomatic menopause [facility] Diagnosis Primary hypertension- Primary Unspecified essential [...] single bacterial disease [facility]* Diagnosis Chronic pain of left knee- Primary Pain in joint, lower leg Allergic rhinitis, unspecified seasonality, unspecified trigger Medication management Encounter for long-term (current) use of other medications Encounter for therapeutic drug monitoring documented in this encounter [facility] note* Diagnosis Left knee pain, unspecified chronicity- Primary [facility] Diagnosis Primary osteoarthritis of left knee- Primary Primary localized osteoarthrosis, lower leg Chronic pain of left knee Pain in joint, lower leg [facility] Diagnosis Left knee pain, unspecified chronicity [facility] Diagnosis Primary hypertension Unspecified essential hypertension [facility] Diagnosis Hypercholesteremia- Primary Pure hypercholesterolemia [facility] Diagnosis Encounter for screening mammogram for breast cancer [facility] Diagnosis Primary hypertension- Primary Unspecified essential [...] malignant neoplasms, colon [facility] Diagnosis Essential hypertension Unspecified essential hypertension [facility] Diagnosis Encounter for screening colonoscopy- Primary Special screening for malignant neoplasms, colon Screening for colon cancer Special screening for malignant neoplasms, colon [facility] Diagnosis Urinary frequency- Primary Acute midline low back pain with right-sided sciatica Acute midline low back pain with right-sided sciatica [facility] Diagnosis Acute midline low back pain with right-sided sciatica [facility] Diagnosis Urinary tract infection without hematuria, site unspecified- Primary Right-sided low back pain without sciatica, unspecified chronicity [facility] Diagnosis Urinary tract infection without hematuria, site unspecified Right-sided low back pain without sciatica, unspecified chronicity [facility] Diagnosis Memory deficit- Primary Memory loss Cognitive impairment, mild, so stated Mild cognitive impairment, so stated Gait instability Abnormality of gait Balance disorder Other symptoms involving nervous and musculoskeletal systems [facility] Diagnosis Encounter for screening mammogram for breast cancer [facility] Diagnosis Primary hypertension Unspecified essential hypertension [facility] Diagnosis Gait instability- Primary Abnormality of gait [facility] Diagnosis Memory deficit- Primary Memory loss [...] for breast cancer [facility] Diagnosis Cognitive impairment, mild, so stated Mild cognitive impairment, so stated [facility] Diagnosis Alzheimer's disease (HCC)- Primary Alzheimer's disease History of traumatic brain injury Personal history of traumatic brain injury documented in this encounter [facility] note* Diagnosis Gait instability- Primary Abnormality of gait documented in this encounter [facility] note* Diagnosis Degeneration of intervertebral disc of lumbar region with discogenic back pain- Primary S/P lumbar spine operation Other postprocedural status Chronic midline low back pain without sciatica Acute midline low back pain without sciatica documented in this encounter [facility] note* Diagnosis Degeneration of intervertebral disc of lumbar region with discogenic back pain S/P lumbar spine operation Other postprocedural status Chronic midline low back pain without sciatica Acute midline low back pain without sciatica documented in this encounter [facility] note* Diagnosis Lumbar stenosis with neurogenic claudication- Primary Closed wedge compression fracture of T11 vertebra, initial encounter ([facility]) Arachnoiditis Unspecified meningitis documented in this encounter [facility] note* Diagnosis Lumbar stenosis with neurogenic claudication- Primary Arachnoiditis Unspecified meningitis documented in this encounter [facility] note* Diagnosis Gait instability- Primary Abnormality of gait documented in this encounter [facility] note* Diagnosis Lumbar stenosis with neurogenic claudication- Primary Arachnoiditis Unspecified meningitis documented in this encounter [facility] note* Diagnosis Gait instability- Primary Abnormality of gait documented in this encounter [facility] note* Diagnosis Gait instability- Primary Abnormality of gait documented in this encounter [facility] note* Diagnosis Gait instability- Primary Abnormality of gait documented in this encounter [facility] for referral (narrative)* Diagnostic Procedure Only (Routine) - Pending Review Specialty Diagnoses / Procedures Referred By Rafael t Referred To Contact [facility] Diagnoses Encounter for screening mammogram for breast cancer Procedures NAVI SCREENING SCREENING MAMMOGRAPHY BI 2-VIEW BREAST INC CAD Cee Christianson MD [address] [place] [address] [facility] [address] [place] [phone] Referral ID Status Reason Start Date Expiration Date Visits Requested Visits Authorized [id number] Pending Review Auto-Generat ed Referral 12/03/2021 01/02/[address] [facility] for referral (narrative)* Diagnostic Procedure Only (Routine) - Closed Specialty Diagnoses / Procedures Referred By Rafael t Referred To Contact [facility] Diagnoses Encounter for screening mammogram for breast cancer Procedures NAVI SCREENING SCREENING MAMMOGRAPHY BI 2-VIEW BREAST INC Cee Vicente MD [address] [id number] [facility] [address] [place] [address] Referral ID Status Reason Start Date Expiration Date V isits Requested Visits Authorized [id number] Closed Auto-Generate d Referral 12/03/2021 01/02/[address] [facility] for referral (narrative)* Outpatient Procedure (Routine) - Pending Review Specialty Diagnoses / Procedures Referred By Rafael t Referred To [facility] Diagnoses Asthma Procedures SPIROMETRY - BASELINE AND POST DILATOR BRNCDILAT RSPSE SPMTRY PRE&POST-BRNCDILAT ADMZakia Cervantes APRN.CNS [address] [place] [address] Respiratory [employer] [address] [place] [address] Referral ID Status Reason Start Date Expiration Date Visits Requested Visits Authorized [id number] Pending Review Auto-Generat ed Referral 06/23/2022 07/23/[address] [facility] for referral (narrative)* Diagnostic Procedure Only (Routine) - Authorized Specialty Diagnoses / Procedures Referred By Contaudra t Referred To Contact [facility] Diagnoses Encounter for screening mammogram for breast cancer Procedures NAVI SCREENING SCREENING MAMMOGRAPHY BI 2-VIEW BREAST INC Thuy Edmondosn APRN.CNP [address] [place] [address] [facility] [address] [place] [address] Referral ID Status Reason Start Date Expiration Date Visits Requested Visits Authorized [id number] Authorized Auto-Generat ed Referral 12/18/2022 01/17/[address] [facility] for referral (narrative)* Diagnostic Procedure Only (Routine) - Closed Specialty Diagnoses / Procedures Referred By Rafael t Referred To Contact [facility] Diagnoses Encounter for screening mammogram for breast cancer Procedures NAVI SCREENING SCREENING MAMMOGRAPHY BI 2-VIEW BREAST INC Thuy Edmondson APRN.CNP [address] [place] [address] [facility] [address] [place] [address] Referral ID Status Reason Start Date Expiration Date V isits Requested Visits Authorized [id number] Closed Auto-Generate d Referral 12/18/2022 01/17/[address] [facility] for referral (narrative)* Diagnostic Procedure Only (Routine) - Pending Review Specialty Diagnoses / Procedures Referred By Rafael t Referred To Contact XR IMAGING Diagnoses Left knee pain, unspecified chronicity Procedures XR KNEE GENERAL 4V AP BOTH/PA BOTH/LAT/MERC LEFT RADIOLOGIC EXAM KNEE COMPLETE 4/MORE VIEWS Edgard Dubois PA-C [address] [address] [place] [address] Referral ID Status Reason Start Date Expiration Date Visits Requested Visits Authorized [id number] Pending Review Auto-Generat ed Referral 12/15/2023 01/13/[address] [facility] for referral (narrative)* Diagnostic Procedure Only (Routine) - Pending Review Specialty Diagnoses / Procedures Referred By Rafael t Referred To Contact [facility] Diagnoses Encounter for screening mammogram for breast cancer Procedures NAVI SCREENING W KEVIN SCREENING DIGITAL BREAST TOMOSYNTHESIS BI SCREENING MAMMOGRAPHY BI 2-VIEW BREAST INC CAD Cee Christianson MD [address] [place] [address] [facility] [address] [place] [address] Referral ID Status Reason Start Date Expiration Date Visits Requested Visits Authorized [id number] Pending Review Auto-Generat ed Referral 02/16/2024 03/17/[address] [facility] for referral (narrative)* Outpatient Procedure (Routine) - Pending Review Specialty Diagnoses / Procedures Referred By Contac t Referred To Contact [facility] Diagnoses Screening for colon cancer Procedures COLONOSCOPY SCREENING COLONOSCOPY FLX DX W/COLLJ SPEC WHEN Cee Corbett MD [address] [place] [address] [facility] [address] [address] Referral ID Status Reason Start Date Expiration Date Visits Requested Visits Authorized [id number] Pending Review Auto-Generat ed Referral 02/21/2024 02/20/[address] [facility] for referral (narrative)* Outpatient Procedure (Routine) - Closed Specialty Diagnoses / Procedures Referred By Contac t Referred To Contact [facility] Diagnoses Screening for colon cancer Procedures COLONOSCOPY SCREENING COLONOSCOPY FLX DX W/COLLJ SPEC WHEN Cee Corbett MD [address] [place] [address] [address] Referral ID Status Reason Start Date Expiration Date V isits Requested Visits Authorized [id number] Closed Auto-Generate d Referral 05/23/2024 07/21/[address] [facility] for referral (narrative)* Diagnostic Procedure Only (Urgent) - Closed Specialty Diagnoses / Procedures Referred By Contac t Referred To Contact XR IMAGING Diagnoses Acute midline low back pain with right-sided sciatica Procedures XR LUMBAR GENERAL 3V AP/LAT/L5-S1 RADEX SPINE LUMBOSACRAL 2/3 VIEWS Jean Kim PA [address] [place] [address] [place] [address] Referral ID Status Reason Start Date Expiration Date V isits Requested Visits Authorized [id number] Closed Auto-Generate d Referral 09/11/2024 10/11/2025 1 1 [facility] for referral (narrative)* Diagnostic Procedure Only (Urgent) - Closed Specialty Diagnoses / Procedures Referred By Rafael t Referred To Contact XR IMAGING Diagnoses Acute midline low back pain with right-sided sciatica Procedures XR LUMBAR GENERAL 3V AP/LAT/L5-S1 RADEX SPINE LUMBOSACRAL 2/3 VIEWS Jean Kim PA [address] [place] [address] [place] [address] Referral ID Status Reason Start Date Expiration Date V isits Requested Visits Authorized [id number] Closed Auto-Generate d Referral 09/11/2024 10/11/2025 1 1 [facility] for referral (narrative)* Diagnostic Procedure Only (Routine) - Authorized Specialty Diagnoses / Procedures Referred By Rafael meyer Referred To Contact [facility] Diagnoses Urinary tract infection without hematuria, site unspecified Acute left-sided low back pain without sciatica Procedures US KIDNEY/BLADDER US RETROPERITONEAL REAL TIME W/IMAGE COMPLETE Pradeep Blanton MD [address] [place] [address] [place] [address] Referral ID Status Reason Start Date Expiration Date Visits Requested Visits Authorized [id number] Authorized Auto-Generat ed Referral 09/21/2024 10/21/2025 1 1 [facility] for referral (narrative)No reason for referral information availableWOhio State [facility] Work Phone: Reason for visit Narrative* Diagnostic Procedure Only (Routine) - Closed Specialty Diagnoses / Procedures Referred By Rafael meyer Referred To Contact [facility] Diagnoses Encounter for screening mammogram for breast cancer Procedures NAVI SCREENING SCREENING MAMMOGRAPHY BI 2-VIEW BREAST INC CAD Cee Christianson MD [address] [place] [address] [facility] [address] [place] [phone] Referral ID Status Reason Start Date Expiration Date V isits Requested Visits Authorized [id number] Closed Auto-Generate d Referral 12/03/2021 01/02/[address] [facility] for visit Narrative* Diagnostic Procedure Only (Routine) - Closed Specialty Diagnoses / Procedures Referred By Contac t Referred To Contact [facility] Diagnoses Encounter for screening mammogram for breast cancer Procedures NAVI SCREENING SCREENING MAMMOGRAPHY BI 2-VIEW BREAST INC CAD Thuy Stewart APRN.OFFICE [employer] [address] [place] [address] [facility] [address] [place] [phone] Referral ID Status Reason Start Date Expiration Date V isits Requested Visits Authorized [id number] Closed Auto-Generate d Referral 12/18/2022 01/17/[address] [facility] for visit Narrative* Diagnostic Procedure Only (Routine) - Closed Specialty Diagnoses / Procedures Referred By Contac t Referred To Contact XR IMAGING Diagnoses Left knee pain, unspecified chronicity Procedures XR KNEE GENERAL 4V AP BOTH/PA BOTH/LAT/MERC LEFT RADIOLOGIC EXAM KNEE COMPLETE 4/MORE VIEWS Edgard Dubois PA-C [address] [address] Xr Imaging [id number] Referral ID Status Reason Start Date Expiration Date V isits Requested Visits Authorized [id number] Closed Auto-Generate d Referral 12/15/2023 01/13/[address] [facility] for visit Narrative* Outpatient Procedure (Routine) - Closed Specialty Diagnoses / Procedures Referred By Contac t Referred To Contact [facility] Diagnoses Screening for colon cancer Procedures COLONOSCOPY SCREENING COLONOSCOPY FLX DX W/COLLJ [place] [address] [place] [address] [facility] [employer] [address] [place] [id number] Referral ID Status Reason Start Date Expiration Date V isits Requested Visits Authorized [id number] Closed Auto-Generate d Referral 05/23/2024 07/21/[address] [facility] for visit Narrative* Diagnostic Procedure Only (Urgent) - Closed Specialty Diagnoses / Procedures Referred By Contac t Referred To Contact XR IMAGING Diagnoses Acute midline low back pain with right-sided sciatica Procedures XR LUMBAR GENERAL 3V AP/LAT/L5-S1 RADEX SPINE LUMBOSACRAL 2/3 VIEWS Jean Kim PA [address] [place] [address] [place] [id number] Referral ID Status Reason Start Date Expiration Date V isits Requested Visits Authorized [id number] Closed Auto-Generate d Referral 09/11/2024 10/11/[address] [facility] for visit Narrative* Diagnostic Procedure Only (Routine) - Closed Specialty Diagnoses / Procedures Referred By Contac t Referred To Contact [facility] Diagnoses Encounter for screening mammogram for breast cancer Procedures NAVI SCREENING SCREENING MAMMOGRAPHY BI 2-VIEW BREAST INC CAD Cee Christianson MD [address] [place] [address] Phone: tel: fax: [facility] [address] [place] [address] Referral ID Status Reason Start Date Expiration Date V isits Requested Visits Authorized [id number] Closed Auto-Generate d Referral 09/25/2024 10/25/[address] [facility] for visit Narrative* MRI/CT (Routine) - Closed Specialty Diagnoses / Procedures Referred By Contac t Referred To Contact MR IMAGING Diagnoses Cognitive impairment, mild, so stated Procedures MRI BRAIN W QUANT WO IVCON MRI BRAIN BRAIN STEM W/O CONTRAST MATERIAL Ruma Westfall MD [address] [place] [address] Phone: tel: fax: [place] [address] Referral ID Status Reason Start Date Expiration Date V isits Requested Visits Authorized [id number] Closed Auto-Generate d Referral 10/27/2024 12/26[facility] ([facility] - Pending Review Specialty Diagnoses / Procedures Referred By Contac t Referred To Contact MR IMAGING Diagnoses Degeneration of intervertebral disc of lumbar region with discogenic back pain S/P lumbar spine operation Chronic midline low back pain without sciatica Acute midline low back pain without sciatica Procedures MRI LUMBAR SPINE WO IVCON MRI LUMBAR SPINE WO IVCON MRI SPINAL CANAL LUMBAR W/O CONTRAST MATERIAL Cee Christianson MD [address] [place] [address] Phone: tel: fax: [place] [id number] Referral ID Status Reason Start Date Expiration Date Visits Requested Visits Authorized [id number] Pending Review Auto-Genera brandi Referral Patient Cleared - Admin/Chair man/Directo r advise to proceed or did not respond 12/29/2024 02/25/2025 1 1 [facility] Summary Purpose Family History Relationship Condition Age at Onset Recorded Date/T amrit Unknown Family History?- Unknown July 082016 2:28am Family History?- Unknown July 5:22pm Advance Directives Advance Directive Response Recorded Date/ Time Do you have a Healthcare Power of Lead Cook? Yes February 17, 2025 6:29pm Reason for Referral Specialty Diagnoses / Procedures Referred By Rafael t Referred To Contact Orthopedics Diagnoses Chronic pain of left knee Procedures CONSULT TO ORTHOPAEDICS OFFICE/OUTPATIENT [facility] 60 MINUTES Thuy Stewart APRN.KATIUSKA [address] [place] [address] Referral ID Status Reason Start Date Expiration Date Visits Requested Visits Authorized [id number] Authorized PCP Requested Referral 12/14/2023 12/13/2024 1 1 Chief Complaint and Reason for Visit Chief Complaint Admit Date HYPONATREMIA, FEVER, BACK PAIN & ALTERED MENTAL February 17, 2025 9:29pm Reason for Visit Admit Date Acute hyponatremia February 17, 2025 9:29p m Altered level of consciousness February 17, 2025 9:29pm Fever February 17, 2025 9:29p m History of dementia February 17, 2025 9:29p m Additional Source Comments INFORMATION SOURCE (unrecogn ized section and content) DATE CREATED AUTHOR 02/17/2018 [facility] DATE CREATED AUTHOR AUTHOR'S BERNABE ATALEX 11/08/2024 [facility] DATE CREATED AUTHOR AUTHOR'S ORGANIZ ATION 12/31/2024 [facility] DATE CREATED AUTHOR AUTHOR'S ORGANIZ ATION 01/12/2025 [facility] DATE CREATED AUTHOR AUTHOR'S ORGANIZ ATION 02/13/2025 [facility] Source Comments (unrecognize d section and content) In the event this informatio n is protected by the Federal Confidentiality of Alcohol and Drug Abuse Patient Records regulations: The Federal rules restrict any use of the information to criminally investigate or prosecute any alcohol or drug abuse patient.[facility] the event this information is protected by the Federal Confidentiality of Alcohol and Drug Abuse Patient Records regulations: The Federal rules restrict any use of the information to criminally investigate or prosecute any alcohol or drug abuse patient.[facility] the event this information is protected by the Federal Confidentiality of Alcohol and Drug Abuse Patient Records regulations: The Federal rules restrict any use of the information to criminally investigate or prosecute any alcohol or drug abuse patient.[facility] the event this information is protected by the Federal Confidentiality of Alcohol and Drug Abuse Patient Records regulations: The Federal rules restrict any use of the information to criminally investigate or prosecute any alcohol or drug abuse patient.[facility] the event this information is protected by the Federal Confidentiality of Alcohol and Drug Abuse Patient Records regulations: The Federal rules restrict any use of the information to criminally investigate or prosecute any alcohol or drug abuse patient.[facility]In the event this information is protected by the Federal Confidentiality of Alcohol and Drug Abuse Patient Records regulations: The Federal rules restrict any use of the information to criminally investigate or prosecute any alcohol or drug abuse patient.[facility]In the event this information is protected by the Federal Confidentiality of Alcohol and Drug Abuse Patient Records regulations: The Federal rules restrict any use of the information to criminally investigate or prosecute any alcohol or drug abuse patient.[facility]In the event this information is protected by the Federal Confidentiality of Alcohol and Drug Abuse Patient Records regulations: The Federal rules restrict any use of the information to criminally investigate or prosecute any alcohol or drug abuse patient.[facility]In the event this information is protected by the Federal Confidentiality of Alcohol and Drug Abuse Patient Records regulations: The Federal rules restrict any use of the information to criminally investigate or prosecute any alcohol or drug abuse patient.[facility]In the event this information is protected by the Federal Confidentiality of Alcohol and Drug Abuse Patient Records regulations: The Federal rules restrict any use of the information to criminally investigate or prosecute any alcohol or drug abuse patient.[facility] HospitalIn the event this information is protected by the Federal Confidentiality of Alcohol and Drug Abuse Patient Records regulations: The Federal rules restrict any use of the information to criminally investigate or prosecute any alcohol or drug abuse patient.[facility] HospitalIn the event this information is protected by the Federal Confidentiality of Alcohol and Drug Abuse Patient Records regulations: The Federal rules restrict any use of the information to criminally investigate or prosecute any alcohol or drug abuse patient.[facility] HospitalIn the event this information is protected by the Federal Confidentiality of Alcohol and Drug Abuse Patient Records regulations: The Federal rules restrict any use of the information to criminally investigate or prosecute any alcohol or drug abuse patient.[facility] HospitalIn the event this information is protected by the Federal Confidentiality of Alcohol and Drug Abuse Patient Records regulations: The Federal rules restrict any use of the information to criminally investigate or prosecute any alcohol or drug abuse patient.[facility] HospitalIn the event this information is protected by the Federal Confidentiality of Alcohol and Drug Abuse Patient Records regulations: The Federal rules restrict any use of the information to criminally investigate or prosecute any alcohol or drug abuse patient.[facility] HospitalIn the event this information is protected by the Federal Confidentiality of Alcohol and Drug Abuse Patient Records regulations: The Federal rules restrict any use of the information to criminally investigate or prosecute any alcohol or drug abuse patient.[facility] HospitalIn the event this information is protected by the Federal Confidentiality of Alcohol and Drug Abuse Patient Records regulations: The Federal rules restrict any use of the information to criminally investigate or prosecute any alcohol or drug abuse patient.[facility] HospitalIn the event this information is protected by the Federal Confidentiality of Alcohol and Drug Abuse Patient Records regulations: The Federal rules restrict any use of the information to criminally investigate or prosecute any alcohol or drug abuse patient.[facility] HospitalIn the event this information is protected by the Federal Confidentiality of Alcohol and Drug Abuse Patient Records regulations: The Federal rules restrict any use of the information to criminally investigate or prosecute any alcohol or drug abuse patient.[facility] HospitalIn the event this information is protected by the Federal Confidentiality of Alcohol and Drug Abuse Patient Records regulations: The Federal rules restrict any use of the information to criminally investigate or prosecute any alcohol or drug abuse patient.[facility] HospitalIn the event this information is protected by the Federal Confidentiality of Alcohol and Drug Abuse Patient Records regulations: The Federal rules restrict any use of the information to criminally investigate or prosecute any alcohol or drug abuse patient.[facility] HospitalIn the event this information is protected by the Federal Confidentiality of Alcohol and Drug Abuse Patient Records regulations: The Federal rules restrict any use of the information to criminally investigate or prosecute any alcohol or drug abuse patient.[facility] HospitalIn the event this information is protected by the Federal Confidentiality of Alcohol and Drug Abuse Patient Records regulations: The Federal rules restrict any use of the information to criminally investigate or prosecute any alcohol or drug abuse patient.[facility] HospitalIn the event this information is protected by the Federal Confidentiality of Alcohol and Drug Abuse Patient Records regulations: The Federal rules restrict any use of the information to criminally investigate or prosecute any alcohol or drug abuse patient.[facility] HospitalIn the event this information is protected by the Federal Confidentiality of Alcohol and Drug Abuse Patient Records regulations: The Federal rules restrict any use of the information to criminally investigate or prosecute any alcohol or drug abuse patient.[facility] HospitalIn the event this information is protected by the Federal Confidentiality of Alcohol and Drug Abuse Patient Records regulations: The Federal rules restrict any use of the information to criminally investigate or prosecute any alcohol or drug abuse patient.[facility] HospitalIn the event this information is protected by the Federal Confidentiality of Alcohol and Drug Abuse Patient Records regulations: The Federal rules restrict any use of the information to criminally investigate or prosecute any alcohol or drug abuse patient.[facility] HospitalIn the event this information is protected by the Federal Confidentiality of Alcohol and Drug Abuse Patient Records regulations: The Federal rules restrict any use of the information to criminally investigate or prosecute any alcohol or drug abuse patient.[facility] HospitalIn the event this information is protected by the Federal Confidentiality of Alcohol and Drug Abuse Patient Records regulations: The Federal rules restrict any use of the information to criminally investigate or prosecute any alcohol or drug abuse patient.[facility] HospitalIn the event this information is protected by the Federal Confidentiality of Alcohol and Drug Abuse Patient Records regulations: The Federal rules restrict any use of the information to criminally investigate or prosecute any alcohol or drug abuse patient.[facility] HospitalIn the event this information is protected by the Federal Confidentiality of Alcohol and Drug Abuse Patient Records regulations: The Federal rules restrict any use of the information to criminally investigate or prosecute any alcohol or drug abuse patient.[facility] HospitalIn the event this information is protected by the Federal Confidentiality of Alcohol and Drug Abuse Patient Records regulations: The Federal rules restrict any use of the information to criminally investigate or prosecute any alcohol or drug abuse patient.[facility] HospitalIn the event this information is protected by the Federal Confidentiality of Alcohol and Drug Abuse Patient Records regulations: The Federal rules restrict any use of the information to criminally investigate or prosecute any alcohol or drug abuse patient.[facility] HospitalIn the event this information is protected by the Federal Confidentiality of Alcohol and Drug Abuse Patient Records regulations: The Federal rules restrict any use of the information to criminally investigate or prosecute any alcohol or drug abuse patient.[facility] HospitalIn the event this information is protected by the Federal Confidentiality of Alcohol and Drug Abuse Patient Records regulations: The Federal rules restrict any use of the information to criminally investigate or prosecute any alcohol or drug abuse patient.[facility] HospitalIn the event this information is protected by the Federal Confidentiality of Alcohol and Drug Abuse Patient Records regulations: The Federal rules restrict any use of the information to criminally investigate or prosecute any alcohol or drug abuse patient.[facility] HospitalIn the event this information is protected by the Federal Confidentiality of Alcohol and Drug Abuse Patient Records regulations: The Federal rules restrict any use of the information to criminally investigate or prosecute any alcohol or drug abuse patient.[facility] HospitalIn the event this information is protected by the Federal Confidentiality of Alcohol and Drug Abuse Patient Records regulations: The Federal rules restrict any use of the information to criminally investigate or prosecute any alcohol or drug abuse patient.[facility] HospitalIn the event this information is protected by the Federal Confidentiality of Alcohol and Drug Abuse Patient Records regulations: The Federal rules restrict any use of the information to criminally investigate or prosecute any alcohol or drug abuse patient.[facility] HospitalIn the event this information is protected by the Federal Confidentiality of Alcohol and Drug Abuse Patient Records regulations: The Federal rules restrict any use of the information to criminally investigate or prosecute any alcohol or drug abuse patient.[facility] HospitalIn the event this information is protected by the Federal Confidentiality of Alcohol and Drug Abuse Patient Records regulations: The Federal rules restrict any use of the information to criminally investigate or prosecute any alcohol or drug abuse patient.[facility] HospitalIn the event this information is protected by the Federal Confidentiality of Alcohol and Drug Abuse Patient Records regulations: The Federal rules restrict any use of the information to criminally investigate or prosecute any alcohol or drug abuse patient.[facility] HospitalIn the event this information is protected by the Federal Confidentiality of Alcohol and Drug Abuse Patient Records regulations: The Federal rules restrict any use of the information to criminally investigate or prosecute any alcohol or drug abuse patient.[facility] HospitalIn the event this information is protected by the Federal Confidentiality of Alcohol and Drug Abuse Patient Records regulations: The Federal rules restrict any use of the information to criminally investigate or prosecute any alcohol or drug abuse patient.[facility] HospitalIn the event this information is protected by the Federal Confidentiality of Alcohol and Drug Abuse Patient Records regulations: The Federal rules restrict any use of the information to criminally investigate or prosecute any alcohol or drug abuse patient.[facility] HospitalIn the event this information is protected by the Federal Confidentiality of Alcohol and Drug Abuse Patient Records regulations: The Federal rules restrict any use of the information to criminally investigate or prosecute any alcohol or drug abuse patient.[facility] HospitalIn the event this information is protected by the Federal Confidentiality of Alcohol and Drug Abuse Patient Records regulations: The Federal rules restrict any use of the information to criminally investigate or prosecute any alcohol or drug abuse patient.[facility] HospitalIn the event this information is protected by the Federal Confidentiality of Alcohol and Drug Abuse Patient Records regulations: The Federal rules restrict any use of the information to criminally investigate or prosecute any alcohol or drug abuse patient.[facility] HospitalIn the event this information is protected by the Federal Confidentiality of Alcohol and Drug Abuse Patient Records regulations: The Federal rules restrict any use of the information to criminally investigate or prosecute any alcohol or drug abuse patient.[facility] HospitalIn the event this information is protected by the Federal Confidentiality of Alcohol and Drug Abuse Patient Records regulations: The Federal rules restrict any use of the information to criminally investigate or prosecute any alcohol or drug abuse patient.[facility] the event this information is protected by the Federal Confidentiality of Alcohol and Drug Abuse Patient Records regulations: The Federal rules restrict any use of the information to criminally investigate or prosecute any alcohol or drug abuse patient.[facility] HospitalIn the event this information is protected by the Federal Confidentiality of Alcohol and Drug Abuse Patient Records regulations: The Federal rules restrict any use of the information to criminally investigate or prosecute any alcohol or drug abuse patient.[facility] HospitalIn the event this information is protected by the Federal Confidentiality of Alcohol and Drug Abuse Patient Records regulations: The Federal rules restrict any use of the information to criminally investigate or prosecute any alcohol or drug abuse patient.[facility] HospitalIn the event this information is protected by the Federal Confidentiality of Alcohol and Drug Abuse Patient Records regulations: The Federal rules restrict any use of the information to criminally investigate or prosecute any alcohol or drug abuse patient.[facility] HospitalIn the event this information is protected by the Federal Confidentiality of Alcohol and Drug Abuse Patient Records regulations: The Federal rules restrict any use of the information to criminally investigate or prosecute any alcohol or drug abuse patient.[facility] HospitalIn the event this information is protected by the Federal Confidentiality of Alcohol and Drug Abuse Patient Records regulations: The Federal rules restrict any use of the information to criminally investigate or prosecute any alcohol or drug abuse patient.[facility] HospitalIn the event this information is protected by the Federal Confidentiality of Alcohol and Drug Abuse Patient Records regulations: The Federal rules restrict any use of the information to criminally investigate or prosecute any alcohol or drug abuse patient.[facility] HospitalIn the event this information is protected by the Federal Confidentiality of Alcohol and Drug Abuse Patient Records regulations: The Federal rules restrict any use of the information to criminally investigate or prosecute any alcohol or drug abuse patient.[facility] HospitalIn the event this information is protected by the Federal Confidentiality of Alcohol and Drug Abuse Patient Records regulations: The Federal rules restrict any use of the information to criminally investigate or prosecute any alcohol or drug abuse patient.[facility] HospitalIn the event this information is protected by the Federal Confidentiality of Alcohol and Drug Abuse Patient Records regulations: The Federal rules restrict any use of the information to criminally investigate or prosecute any alcohol or drug abuse patient.[facility] HospitalIn the event this information is protected by the Federal Confidentiality of Alcohol and Drug Abuse Patient Records regulations: The Federal rules restrict any use of the information to criminally investigate or prosecute any alcohol or drug abuse patient.[facility] HospitalIn the event this information is protected by the Federal Confidentiality of Alcohol and Drug Abuse Patient Records regulations: The Federal rules restrict any use of the information to criminally investigate or prosecute any alcohol or drug abuse patient.[facility] HospitalIn the event this information is protected by the Federal Confidentiality of Alcohol and Drug Abuse Patient Records regulations: The Federal rules restrict any use of the information to criminally investigate or prosecute any alcohol or drug abuse patient.[facility] HospitalIn the event this information is protected by the Federal Confidentiality of Alcohol and Drug Abuse Patient Records regulations: The Federal rules restrict any use of the information to criminally investigate or prosecute any alcohol or drug abuse patient.[facility] HospitalIn the event this information is protected by the Federal Confidentiality of Alcohol and Drug Abuse Patient Records regulations: The Federal rules restrict any use of the information to criminally investigate or prosecute any alcohol or drug abuse patient.[facility] HospitalIn the event this information is protected by the Federal Confidentiality of Alcohol and Drug Abuse Patient Records regulations: The Federal rules restrict any use of the information to criminally investigate or prosecute any alcohol or drug abuse patient.[facility] HospitalIn the event this information is protected by the Federal Confidentiality of Alcohol and Drug Abuse Patient Records regulations: The Federal rules restrict any use of the information to criminally investigate or prosecute any alcohol or drug abuse patient.[facility] HospitalIn the event this information is protected by the Federal Confidentiality of Alcohol and Drug Abuse Patient Records regulations: The Federal rules restrict any use of the information to criminally investigate or prosecute any alcohol or drug abuse patient.[facility] Care Teams (unrecognized sec tion and content) Head Of Commission Department Relationship Specialty Start Date End Date Cee Christianson MD [address] [place] [address] PCP - General 06/24/02 Head Of Commission Department Relationship Specialty Start Date End Date Cee Christianson MD [address] [place] [address] PCP - General 06/24/02 Head Of Commission Department Relationship Specialty Start Date End Date Cee Christianson MD [address] [place] [address] PCP - General 06/24/02 Head Of Commission Department Relationship Specialty Start Date End Date Cee Christianson MD [address] [place] [address], [place] [address] PCP - General 06/24/02 Head Of Commission Department Relationship Specialty Start Date End Date Cee Christianson MD [address] [place] [address], [place] [address] PCP - General 06/24/02 Head Of Commission Department Relationship Specialty Start Date End Date Cee Christianson MD [address] [place] [address], [place] [address] PCP - General 06/24/02 Head Of Commission Department Relationship Specialty Start Date End Date Cee Christianson MD [address] [place] [address], [place] [address] PCP - General 06/24/02 Head Of Commission Department Relationship Specialty Start Date End Date Cee Christianson MD [address] [place] [address], [place] [address] PCP - General 06/24/02 Head Of Commission Department Relationship Specialty Start Date End Date Cee Christianson MD [address] [place] [address], [place] [address] PCP - General 06/24/02 Head Of Commission Department Relationship Specialty Start Date End Date Cee Christianson MD [address] [place] [address], [place] [address] PCP - General 06/24/02 Head Of Commission Department Relationship Specialty Start Date End Date Cee Christianson MD [address] [place] [address] PCP - General 06/24/02 Head Of Commission Department Relationship Specialty Start Date End Date Cee Christianson MD [address] [place] [address] PCP - General 06/24/02 Head Of Commission Department Relationship Specialty Start Date End Date Cee Christianson MD [address] [place] [address] PCP - General 06/24/02 Head Of Commission Department Relationship Specialty Start Date End Date Cee Christianson MD [address] [place] [address] PCP - General 06/24/02 Head Of Commission Department Relationship Specialty Start Date End Date Cee Christianson MD [address] [place] [address] PCP - General 06/24/02 Head Of Commission Department Relationship Specialty Start Date End Date Cee Christianson MD [address] [place] [address] PCP - General 06/24/02 Head Of Commission Department Relationship Specialty Start Date End Date Cee Christianson MD [address] [place] [address] PCP - General 06/24/02 Head Of Commission Department Relationship Specialty Start Date End Date Cee Christianson MD [address] [place] [address] PCP - General 06/24/02 Head Of Commission Department Relationship Specialty Start Date End Date Cee Christianson MD [address] [place] [address] PCP - General 06/24/02 Head Of Commission Department Relationship Specialty Start Date End Date Cee Christianson MD [address] [place] [address] PCP - General 06/24/02 Head Of Commission Department Relationship Specialty Start Date End Date Cee Christianson MD [address] [place] [address] PCP - General 06/24/02 Head Of Commission Department Relationship Specialty Start Date End Date Cee Christianson MD [address] [place] [address] PCP - General 06/24/02 Head Of Commission Department Relationship Specialty Start Date End Date Cee Christianson MD [address] [place] [address] PCP - General 06/24/02 Head Of Commission Department Relationship Specialty Start Date End Date Cee Christianson MD [address] [place] [address] PCP - General 06/24/02 Head Of Commission Department Relationship Specialty Start Date End Date Cee Christianson MD [address] [place] [address] PCP - General 06/24/02 Head Of Commission Department Relationship Specialty Start Date End Date Cee Christianson MD [address] [place] [address] PCP - General 06/24/02 Head Of Commission Department Relationship Specialty Start Date End Date Cee Christianson MD [address] [place] [address] PCP - General 06/24/02 Head Of Commission Department Relationship Specialty Start Date End Date Cee Christianson MD [address] [place] [address] PCP - General 06/24/02 Head Of Commission Department Relationship Specialty Start Date End Date Cee Christianson MD [address] [place] [address] PCP - General 06/24/02 Head Of Commission Department Relationship Specialty Start Date End Date Cee Christianson MD [address] [place] [address] PCP - General 06/24/02 Head Of Commission Department Relationship Specialty Start Date End Date Cee Christianson MD [address] [place] [address] PCP - General 06/24/02 Zakia Sneed, LARRY CAR OPERATOR.JACK MACHINE OPERATOR [address] [place] [address] [facility] 07/24/24 Thuy Stewart LARRY CAR OPERATOR.OFFICE 365 CONSULTANT [address] [place] [address] [facility] 07/24/24 Head Of Commission Department Relationship Specialty Start Date End Date Cee Christianson MD [address] [place] [address] PCP - General 06/24/02 Zakia Sneed, LARRY CAR OPERATOR.JACK MACHINE OPERATOR [address] [place] [address] [facility] 07/24/24 Thuy Stewart, LARRY CAR OPERATOR.OFFICE 365 CONSULTANT [address] [place] [address] [facility] Internal Medicine 07/24/24 Head Of Commission Department Relationship Specialty Start Date End Date Cee Christianson MD [address] [place] [address] PCP - General 06/24/02 Zakia Sneed, LARRY CAR OPERATOR.JACK MACHINE OPERATOR [address] [place] [address] [facility] 07/24/24 Thuy Stewart LARRY CAR OPERATOR.OFFICE 365 CONSULTANT [address] [place] [address] [facility] Internal Medicine 07/24/24 Head Of Commission Department Relationship Specialty Start Date End Date Cee Christianson MD [address] [place] [address] PCP - General 06/24/02 Zakia Sneed, LARRY CAR OPERATOR.JACK MACHINE OPERATOR [address] [place] [address] [facility] Internal Medicine 07/24/24 Thuy Stewart LARRY CAR OPERATOR.OFFICE 365 CONSULTANT [address] [place] [address] [facility] Internal Medicine 07/24/24 Head Of Commission Department Relationship Specialty Start Date End Date Cee Christianson MD [address] [place] [address] PCP - General 06/24/02 Zakia Sneed, LARRY CAR OPERATOR.JACK MACHINE OPERATOR [address] [place] [address] [facility] 07/24/24 Thuy Stewart APRN.OFFICE 365 CONSULTANT [address] [facility] [place] [place] [address] [facility] 07/24/24 Head Of Commission Department Relationship Specialty Start Date End Date Cee Christianson MD [address] [place] [address] PCP - General 06/24/02 Zakia Sneed, LARRY CAR OPERATOR.JACK MACHINE OPERATOR [address] [place] [address] [facility] 07/24/24 Thuy Stewart APRN.OFFICE 365 CONSULTANT [address] [place] [address] [facility] 07/24/24 Head Of Commission Department Relationship Specialty Start Date End Date Cee Christianson MD [address] [place] [address] PCP - General 06/24/02 Zakia Sneed LARRY CAR OPERATOR.JACK MACHINE OPERATOR [address] [place] [address] [facility] 07/24/24 Thuy Stewart APRN.OFFICE 365 CONSULTANT [address] [place] [address] [facility] 07/24/24 Head Of Commission Department Relationship Specialty Start Date End Date Cee Christianson MD [address] [place] [address] PCP - General 06/24/02 Zakia Sneed, LARRY CAR OPERATOR.JACK MACHINE OPERATOR [address] [place] [address] [facility] 07/24/24 Thuy Stewart LARRY CAR OPERATOR.OFFICE 365 CONSULTANT [address] [place] [address] [facility] Internal Medicine 07/24/24 Head Of Commission Department Relationship Specialty Start Date End Date Cee Christianson MD [address] [place] [address] PCP - General 06/24/02 Zakia Sneed, LARRY CAR OPERATOR.JACK MACHINE OPERATOR [address] [place] [address] [facility] 07/24/24 Thuy Stewart, LARRY CAR OPERATOR.OFFICE 365 CONSULTANT [address] [place] [address] [facility] 07/24/24 Head Of Commission Department Relationship Specialty Start Date End Date Cee Christianson MD [address] [place] [address] PCP - General 06/24/02 Zakia Sneed, LARRY CAR OPERATOR.JACK MACHINE OPERATOR [address] [place] [address] [facility] 07/24/24 Thuy Stewart LARRY CAR OPERATOR.OFFICE 365 CONSULTANT [address] [place] [address] [facility] Internal Medicine 07/24/24 Head Of Commission Department Relationship Specialty Start Date End Date Cee Christianson MD [address] [place] [address] PCP - General 06/24/02 Zakia Sneed, LARRY CAR OPERATOR.JACK MACHINE OPERATOR [address] [place] [address] [facility] 07/24/24 Thuy Stewart LARRY CAR OPERATOR.OFFICE 365 CONSULTANT [address] [place] [address] [facility] Internal Medicine 07/24/24 Head Of Commission Department Relationship Specialty Start Date End Date Cee Christianson MD [address] [place] [address] PCP - General 06/24/02 Zakia Sneed, LARRY CAR OPERATOR.JACK MACHINE OPERATOR [address] [place] [address] [facility] Internal Medicine 07/24/24 Thuy Stewart LARRY CAR OPERATOR.OFFICE 365 CONSULTANT [address] [place] [address] [facility] Internal Medicine 07/24/24 Head Of Commission Department Relationship Specialty Start Date End Date Cee Christianson MD [address] [place] [address] PCP - General 06/24/02 Zakia Sneed, LARRY CAR OPERATOR.JACK MACHINE OPERATOR [address] [place] [address] [facility] 07/24/24 Thuy Stewart APRN.OFFICE 365 CONSULTANT [address] [place] [address] [facility] 07/24/24 Head Of Commission Department Relationship Specialty Start Date End Date Cee Christianson MD [address] [place] [address] PCP - General 06/24/02 Zakia Sneed APRN.JACK MACHINE OPERATOR [address] [place] [address] [facility] 07/24/24 Thuy Stewart APRN.OFFICE 365 CONSULTANT [address] [place] [address] [facility] 11/07/24 Head Of Commission Department Relationship Specialty Start Date End Date Cee Christianson MD [address] [place] [address] PCP - General 06/24/02 Zakia Sneed, LARRY CAR OPERATOR.JACK MACHINE OPERATOR [address] [place] [address] [facility] 07/24/24 Thuy Stewart APRN.OFFICE 365 CONSULTANT [address] [place] [address] [facility] 11/07/24 Head Of Commission Department Relationship Specialty Start Date End Date Cee Christianson MD [address] [place] [address] PCP - General 06/24/02 Zakia Sneed, LARRY CAR OPERATOR.JACK MACHINE OPERATOR [address] [place] [address] [facility] 07/24/24 Thuy Stewart LARRY CAR OPERATOR.OFFICE 365 CONSULTANT [address] [place] [address] [facility] 07/24/24 11/03/24 Thuy Stewart LARRY CAR OPERATOR.OFFICE 365 CONSULTANT [address] [place] [address] [facility] Internal Medicine 11/07/24 Head Of Commission Department Relationship Specialty Start Date End Date Cee Christianson MD [address] [place] [address] PCP - General 06/24/02 Zakia Sneed, LARRY CAR OPERATOR.JACK MACHINE OPERATOR [address] [place] [address] [facility] Internal Medicine 07/24/24 Thuy Stewart LARRY CAR OPERATOR.OFFICE 365 CONSULTANT [address] [place] [address] [facility] Internal Medicine 11/07/24 Head Of Commission Department Relationship Specialty Start Date End Date Cee Christianson MD [address] [place] [address] PCP - General 06/24/02 Zakia Sneed, LARRY CAR OPERATOR.JACK MACHINE OPERATOR [address] [place] [address] [facility] Internal Medicine 07/24/24 Thuy Stewart APRN.OFFICE 365 CONSULTANT [address] [place] [address] [facility] 11/07/24 Head Of Commission Department Relationship Specialty Start Date End Date eCe Christianson MD [address] [place] [address] PCP - General 06/24/02 Zakia Sneed, LARRY CAR OPERATOR.JACK MACHINE OPERATOR [address] [place] [address] [facility] 07/24/24 Thuy Stewart LARRY CAR OPERATOR.OFFICE 365 CONSULTANT [address] [place] [address] [facility] 07/24/24 11/03/24 Thuy Stewart LARRY CAR OPERATOR.OFFICE 365 CONSULTANT [address] [place] [address] [facility] 11/07/24 Head Of Commission Department Relationship Specialty Start Date End Date Cee Christianson MD [address] [facility] [place] [address] PCP - General 06/24/02 Zakia Sneed, LARRY CAR OPERATOR.JACK MACHINE OPERATOR [address] [place] [address] [facility] 07/24/24 Thuy Stewart APRN.OFFICE 365 CONSULTANT [address] [place] [address] [facility] 11/07/24 Head Of Commission Department Relationship Specialty Start Date End Date Cee Christianson MD [address] [place] [address] PCP - General 06/24/02 Zakia Sneed, LARRY CAR OPERATOR.JACK MACHINE OPERATOR [address] [place] [address] [facility] 07/24/24 Thuy Stewart, LARRY CAR OPERATOR.OFFICE 365 CONSULTANT [address] [place] [address] [facility] 11/07/24 Head Of Commission Department Relationship Specialty Start Date End Date Cee Christianson MD [address] [place] [address] PCP - General 06/24/02 Zakia Sneed, LARRY CAR OPERATOR.JACK MACHINE OPERATOR [address] [place] [address] [facility] 07/24/24 Thuy Stewart, LARRY CAR OPERATOR.OFFICE 365 CONSULTANT [address] [place] [address] [facility] 11/07/24 Head Of Commission Department Relationship Specialty Start Date End Date Cee Christianson [address] [place] [address] PCP - General 06/22/19 Head Of Commission Department Relationship Specialty Start Date End Date Cee Christianson [address] [place] [address] PCP - General 06/22/19 Head Of Commission Department Relationship Specialty Start Date End Date Cee Christianson MD [address] [place] [address] PCP - General 06/24/02 Thuy Stewart LARRY CAR OPERATOR.OFFICE 365 CONSULTANT [address] [place] [address] [facility] 11/07/24 Zakia Sneed, LARRY CAR OPERATOR.JACK MACHINE OPERATOR [address] [place] [address] [facility] 01/03/25 Head Of Commission Department Relationship Specialty Start Date End Date Cee Christianson [address] [place] [address] PCP - General 06/22/19 Head Of Commission Department Relationship Specialty Start Date End Date Cee Christianson MD [address] [place] [address] PCP - General 06/24/02 Zakia Sneed, LARRY CAR OPERATOR.JACK MACHINE OPERATOR [address] [place] [address] [facility] 07/24/24 01/02/25 Thuy Stewart, LARRY CAR OPERATOR.OFFICE 365 CONSULTANT [address] [place] [address] [facility] 11/07/24 Zakia Sneed, LARRY CAR OPERATOR.JACK MACHINE OPERATOR [address] [place] [address] [facility] Internal Medicine 01/03/25 Head Of Commission Department Relationship Specialty Start Date End Date Cee Christianson MD [address] [place] [address] PCP - General 06/24/02 Zakia Sneed, LARRY CAR OPERATOR.JACK MACHINE OPERATOR [address] [place] [address] [facility] 07/24/24 01/02/25 Thuy Stewart APRN.OFFICE 365 CONSULTANT [address] [place] [address] [facility] 11/07/24 Zakia Sneed, LARRY CAR OPERATOR.JACK MACHINE OPERATOR [address] [place] [address] [facility] Internal Medicine 01/03/25 Head Of Commission Department Relationship Specialty Start Date End Date Cee Christianson MD [address] [place] [address] PCP - General 06/24/02 Thuy Stewart APRN.OFFICE 365 CONSULTANT [address] [place] [address] [facility] 11/07/24 Zakia Sneed, LARRY CAR OPERATOR.JACK MACHINE OPERATOR [address] [place] [address] [facility] Internal Medicine 01/03/25 Head Of Commission Department Relationship Specialty Start Date End Date Cee Christianson MD [address] [place] [address] PCP - General 06/24/02 Thuy Stewart APRN.OFFICE 365 CONSULTANT [address] [place] [address] [facility] 11/07/24 Zakia Sneed, LARRY CAR OPERATOR.JACK MACHINE OPERATOR [address] [place] [address] [facility] 01/03/25 Head Of Commission Department Relationship Specialty Start Date End Date Cee Christianson MD [address] [place] [address] PCP - General 06/24/02 Thuy Stweart LARRY CAR OPERATOR.OFFICE 365 CONSULTANT [address] [place] [address] [facility] 11/07/24 Zakia Sneed, LARRY CAR OPERATOR.JACK MACHINE OPERATOR [address] [place] [address] [facility] 01/03/25 Head Of Commission Department Relationship Specialty Start Date End Date Cee Christianson MD [address] [place] [address] PCP - General 06/24/02 Thuy Stewart LARRY CAR OPERATOR.OFFICE 365 CONSULTANT [address] [place] [address] [facility] 11/07/24 Zakia Sneed, LARRY CAR OPERATOR.JACK MACHINE OPERATOR [address] [place] [address] [facility] 01/03/25 Team Status: Active Member Role/Relationship Status Dates Dr. Cee Christianson MD Primary Care Provider Active Team Status: Active Member Role/Relationship Status Dates Dr. Cee Christianson MD Primary Care Provider Active Start: February 17, 2025 Dr. Ramiro Garcia MD Emergency Provider Active S tart: February 17, 2025 Dr. Maycol Walsh DO Admit Provider Active Start: February 17, 2025 Dr. Maycol Walsh DO Attending Provider Active Start: February 17, 2025 Reason for Visit (unrecogniz ed section and content) Reason Comments PT Discharge Specialty Diagnoses / Procedures Referred By Rafael meyer Referred To Contact [facility] Diagnoses Gait instability Procedures PT REHAB FOLLOW UP ORDER THERAPEUTIC EXERCISES RE, EA 15 MIN. Ruma Westfall MD [address] [place] [address] Phone: tel: fax: [facility] [address] [place] [address] Referral ID Status Reason Start Date Expiration Date Visits Requested Visits Authorized [id number] Authorized PCP Requested Referral Auto-Generate d Referral [...] Reason Comments Medication Question is taking several uzniga pplements and son seen that there was a reaction between two supplements but she is unsure which it was. Knee Pain left knee Reason Comments New Pain Specialty Diagnoses / Procedures Referred By Rafael meyer Referred To Contact Orthopedics Diagnoses Chronic pain of left knee Procedures CONSULT TO ORTHOPAEDICS OFFICE/OUTPATIENT [facility] 60 MINUTES Thuy Stewart APRN.OFFICE 365 CONSULTANT [address] [place] [address] Referral ID Status Reason Start Date Expiration Date V isits Requested Visits Authorized [id number] Closed PCP Requested Referral 12/14/2023 12/13/2024 1 [...] REAL TIME W/IMAGE COMPLETE Pradeep Blanton MD [address] [place] [address] Phone: tel: fax: [place] [phone] Referral ID Status Reason Start Date Expiration Date V isits Requested Visits Authorized [id number] Closed Auto-Generate d Referral 09/21/2024 10/21/2025 1 1 Reason Comments Geriatric Evaluation Specialty Diagnoses / Procedures Referred By Contac t Referred To Contact Gerontology Diagnoses Memory deficit Procedures CONSULT TO GERIATRICS OFFICE/OUTPATIENT [facility] MDM 60 MINUTES Cee Christianson MD [address] [place] [address] Phone: tel: fax: Ruma Westfall MD [address] [place] [address] Phone: tel: fax: Referral ID Status Reason Start Date Expiration Date V isits Requested Visits Authorized [id number] Closed PCP Requested Referral 09/25/2024 09/25/2025 1 [...] HIGH COMPLEX 45 MINS Ruma Westfall MD [address] [place] [address] Phone: tel: fax: [facility] [address] [place] [address] Referral ID Status Reason Start Date Expiration Date V isits Requested Visits Authorized [id number] Closed Auto-Generate d Referral 08/16/2024 08/15/2025 1 1 Reason Comments Physical Reason Onset Date Comments Refill Request 11/10/2024 Reason Comments Follow Up Geriatric MRI follow up, w/daughter Holly Reason Comments Orders Reason Comments xrays on disc Reason Comments New Patient Needs spinal surgery Reason Onset Date Comments Population Health Navigation Outreach 01/16/2025 [employer] [facility] [place] Goals (unrecognized section and content) Goals may be documented in a n alternate section FOR RECORDS PERTAINING TO PATIENTS WHO ARE [...] BE BASED ON THE PRIMARY CLINICAL RECORDS. [facility]. provides no warranty or guarantee of the accuracy or completeness of information in this document.
[2025-02-18] MEDS: Lactobacillis Acidophilus 1 CAP PO ×4 (09:03→21:57)
[2025-02-18 10:55] LABS: Hematocrit 32.8 % (37-47); Hemoglobin 11.3 g/dL (12.0-15.0); Immature Granulocytes Count 0.050 X10^3/uL (0.0-0.0); Mean Corp Hgb Conc 34.5 g/dL (32-36); Mean Corpuscular Volume 91.1 fL (81-99); Mean Platelet Vol. 10.5 fl (6.2-12.0); NRBC Flagged by Analyzer 0 % (0-5); Platelet Count 171 K/mm3 (150-450); RBC Distribution Width CV 13.5 % (11.6-14.6); RBC Distribution Width SD 45.6 fl (35.1-43.9); Red Blood Count 3.60 M/mm3 (4.2-5.4); White Blood Count 13.4 K/mm3 (4.4-11.0)
[2025-02-18 11:21] LABS: AST(SGOT) 44 U/L (<=31); Alanine Aminotransfer ALT/SGPT 29 U/L (<=34); Albumin, Serum 3.2 g/dL (3.4-4.8); Alkaline Phosphatase 62 U/L (35-104); Anion Gap 10 (5-15); BUN 13 mg/dL (4-19); BUN/Creat Ratio 19.0 RATIO (10-20); Calcium,Total 7.9 mg/dL (7.6-11.0); Carbon Dioxide 20.5 mmol/L (21.0-32.0); Chloride 92 mmol/L (98-108); Estimated Creatinine Clearance 75.55 ml/min (50-250); Globulin 3.2 g/dL (2.2-4.2); Glucose 127 mg/dL (70-99); Potassium 4.1 mmol/L (3.3-5.1)
[2025-02-18 11:43] LABS: Osmolality, Serum 262 mOsm/KG (280-301)
--- NOTE | 2025-02-18 13:10 | CT_ITS ---
PROCEDURE: SPINE LUMBAR WITH CONTRAST 02/18/2025 REASON FOR EXAM: RECENT EPIDURAL STEROID INJECTION, BACTEREMIA TECHNIQUE: SPINE LUMBAR WITH CONTRAST CONTRAST: Isovue-300 VOLUME: 97 mL One or more dose reduction techniques were used (e.g., Automated exposure control, adjustment of the mA and/or kV according to patient size, use of iterative reconstruction technique). RADIATION DOSE SUMMARY: CTDlvol: 33.65 mGy DLP: 1432.44 mGycm COMPARISON: None. FINDINGS: Status post bilateral laminectomy and posterior lumbar interbody fusion, L4 through S1. There is enhancing scar in the soft tissues posterior to the thecal sac. No abnormal contrast enhancement is seen within the spinal canal, however, there is partial obscuration by the metallic artifact of the PLIF. There is severe degenerative disc disease at L2-3 and L3-4 with narrowing of the intervertebral disc spaces, marginal osteophytes, vacuum disc phenomena and there is degenerative grade 1 retrolisthesis of L3 on L4. There is increased density of the vertebral bodies on either side of the L3-4 intervertebral disc, which is most likely bony sclerosis but there may be some enhancing edema. There is bibasilar atelectasis with small pleural effusions. 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 There is moderate atrophy of the left kidney. CT/Spine Lumbar WITH Contrast IMPRESSION: 1. There is no abnormal intraspinal contrast enhancement appreciated, although , the spinal canal and thecal sac are partially obscured by artifact from the PLIF. 2. Other findings as noted. Reading Location: [id number]
[2025-02-18] MEDS: Vancomycin HCl 1,500 MG in 0.9% Normal Saline (500mL Bag) 500 ML 250 MG IV (14:07)
[2025-02-18] MEDS: 0.9% Normal Saline (1000mL) 1,000 ML 125 ML IV (14:07)
[2025-02-18] MEDS: 0.9% Saline Lock 10 ML Syringe IV (14:07)
--- NOTE | 2025-02-18 16:31 | PCM.RX.CS ---
Consult Antibiotic Management Pharmacy has been consulted to manage selected antibiotic: Vancomycin Type of Intervention Type of Consult: New Suspected Infection Suspected Infection: Bacteremia Labs Labs: Sodium 122 mmol/L (133-145) L 02/18/25 10:10 Potassium 4.1 mmol/L (3.3-5.1) 02/18/25 10:10 Chloride 92 mmol/L (98-108) L 02/18/25 10:10 Carbon Dioxide 20.5 mmol/L (21.0-32.0) L 02/18/25 10:10 Anion Gap 10 (5-15) 02/18/25 10:10 BUN 13 mg/dL (4-19) 02/18/25 10:10 Creatinine 0.66 mg/dL (0.70-1.20) L 02/18/25 10:10 Est GFR (MDRD) Non-Af 94 (>60) 02/18/25 10:10 BUN/Creatinine Ratio 19.0 RATIO (10-20) 02/18/25 10:10 Glucose 127 mg/dL (70-99) H 02/18/25 10:10 Microbiology Microbiology: Microbiology 02/17/25 21:10 Blood Culture (Wb) - Left Hand Bacteria Detection (PCR) - Final Staphylococcus aureus 02/17/25 21:10 Blood Culture (Wb) - Left Hand Blood Culture - Preliminary 02/17/25 21:50 Blood Culture (Wb) - Left Hand Blood Culture - Preliminary 02/17/25 23:30 Mucosa - Nasopharyngeal Respiratory Panel (PCR) - Final Goal Trough Goal Trough: 15-20 mcg/mL Pharmacy Plan for Drug Dosing Pharmacy Plan for Drug Dosing: NEW START IV VANCOMYCIN Consulting Physician: Dr. Tubbs Indication: Bacteremia Goal Trough: 15-20 SrCr: 0.66 CrCl: 75 mL/min Comments: patient had initial dose of 1500mg x1 ordered and administered 02/18 @1407 Vancomycin Dose: 1250mg IV Q12hr to start 02/19/25 @0200 Pending Level: 02/20/25 @0130, prior to 4th total dose per protocol Pharmacy Service will continue to monitor and adjust dosing as required.
--- NOTE | 2025-02-18 21:30 | NURSING ---
Patient confused telling staff she is getting dressed and leaving tonight. Sitting on edge of bed wants to call her brother and ask why he put her in here. Redirected patient that she is in the hospital and will see Dr. Laurent tomorrow. Patient states she didnt know this was [facility]. Helped into bathroom and returned to bed. Will let Elie Rodriguez know patient is trying to leave.
[2025-02-18] MEDS: Na Biphos/Potassium Phosphate PACKET 1 PACKET PO (21:57)
--- NOTE | 2025-02-18 23:44 | NURSING ---
Bed exit going off patient in the hallway cursing staff that she is going home. Redirected back to bed. Fan turned on per request. Extra blanket given.
[2025-02-19] VITALS (8 sets, daily range): BP systolic 115–138; BP diastolic 58–80; PULSE 65–92; RESP 15–20; TEMP 36.6–37.2; O2SAT 95–100; BMI 33.5
[2025-02-19 00:02] LABS: Anion Gap 14 (5-15); BUN 13 mg/dL (4-19); BUN/Creat Ratio 18.7 RATIO (10-20); Calcium,Total 7.8 mg/dL (7.6-11.0); Carbon Dioxide 17.4 mmol/L (21.0-32.0); Chloride 94 mmol/L (98-108); Estimated Creatinine Clearance 75.55 ml/min (50-250); Glucose 122 mg/dL (70-99); Potassium 4.6 mmol/L (3.3-5.1)
[2025-02-19] MEDS: Vancomycin HCl 1,250 MG in 0.9% Normal Saline (250mL Bag) 250 ML 167 MG IV ×2 (05:09→13:40)
[2025-02-19] MEDS: Budesonide Respules 0.5 MG/2 ML AMPUL.NEB. INHALATION ×2 (07:15→18:44)
[2025-02-19] MEDS: 0.9% Normal Saline (1000mL) 1,000 ML 125 ML IV ×2 (08:01→13:41)
[2025-02-19] MEDS: Lactobacillis Acidophilus 1 CAP PO ×4 (08:03→21:43)
[2025-02-19] MEDS: Na Biphos/Potassium Phosphate PACKET 1 PACKET PO ×2 (08:04→21:42)
--- NOTE | 2025-02-19 08:23 | PCM.PN.HOSP ---
Reason for Visit Reason for Visit: Diagnoses Elevated white blood cell count, unspecified (02/17/25) Obesity, unspecified (02/17/25) Hypo-osmolality and hyponatremia (02/17/25) Unspecified dementia, unspecified severity, without behavioral disturbance, psychotic disturbance, mood disturbance, and anxiety (02/17/25) Other chronic pain (02/17/25) Metabolic encephalopathy (02/17/25) Low back pain, unspecified (02/17/25) Fever, unspecified (02/17/25) Wedge compression fracture of T11-T12 vertebra, initial encounter for closed fracture (02/17/25) Subjective Subjective Feeling well. Objective Data Objective Data Vital Signs: Vital Signs Temp Pulse Resp BP Pulse Ox O2 Del Method 36.6 C 77 20 H 138/58 H 95 Room Air 02/19/25 05:25 02/19/25 07:40 02/19/25 07:40 02/19/25 05:25 02/19/25 08:04 02/19/25 08:04 Oxygen Delivery Method Room Air Weight: 94.5 kg Body Mass Index (BMI) 33.5 Intake & Output: Intake and Output for Last 24 Hours 02/17/25 02/18/25 02/19/25 23:59 23:59 23:59 Intake Total 1100 / 1100 1268.75 / 1268.75 Balance 1100 / 1100 1268.75 / 1268.75 Lab / Micro Data 02/19/25 08:20 02/19/25 08:20 Labs: Laboratory Results - last 24 hr 02/18/25 10:10: WBC 13.4 H, RBC 3.60 L, Hgb 11.3 L, Hct 32.8 L, MCV 91.1, MCH 31.4, MCHC 34.5, RDW Std Deviation 45.6 H, RDW Coeff of Lian 13.5, Plt Count 171, MPV 10.5, Immature Gran % (Auto) 0.400, Neut % (Auto) 87.9 H, Lymph % (Auto) 6.0 L, [place] % (Auto) 5.5, Eos % (Auto) 0.0, Baso % (Auto) 0.2, Absolute Neuts (auto) 11.8 H, Absolute Lymphs (auto) 0.80 L, Nucleated RBC % 0, Sodium 122 L, Potassium 4.1, Chloride 92 L, Carbon Dioxide 20.5 L, Anion Gap 10, BUN 13, Creatinine 0.66 L, Estim Creat Clear Calc 75.55, Est GFR (MDRD) Non-Af 94, BUN/Creatinine Ratio 19.0, Glucose 127 H, Serum Osmolality 262 L, Calcium 7.9, Phosphorus 1.6 L, Total Bilirubin 0.39, AST 44 H, ALT 29, Alkaline Phosphatase 62, Total Protein 6.4, Albumin 3.2 L, Globulin 3.2, Albumin/Globulin Ratio 1.0 02/18/25 17:50: Sodium 125 L, Potassium 4.6, Chloride 94 L, Carbon Dioxide 17.4 L, Anion Gap 14, BUN 13, Creatinine 0.71, Estim Creat Clear Calc 75.55, Est GFR (MDRD) Non-Af 91, BUN/Creatinine Ratio 18.7, Glucose 122 H, Calcium 7.8 Micro: Microbiology 02/17/25 21:50 Blood Culture (Wb) - Left Hand Blood Culture - Preliminary Staphylococcus aureus 02/17/25 21:10 Blood Culture (Wb) - Left Hand Bacteria Detection (PCR) - Final Staphylococcus aureus 02/17/25 21:10 Blood Culture (Wb) - Left Hand Blood Culture - Preliminary Staphylococcus aureus 02/17/25 23:30 Mucosa - Nasopharyngeal Respiratory Panel (PCR) - Final Radiography Diagnostic Testing: Radiology Impression Lumbar Spine CT 02/18/25 13:10 IMPRESSION: 1. There is no abnormal intraspinal contrast enhancement appreciated, although, the spinal canal and thecal sac are partially obscured by artifact from the PLIF. 2. Other findings as noted. Reading Location: [id number] Physical Exam Const alert and no apparent distress HEENT head/scalp atraumatic and moist oral mucous membranes Resp normal respiratory effort, no retractions, no use of accessory muscles and clear to auscultation bilaterally Cardio regular rate, regular rhythm, S1 normal heart sound and S2 normal heart sound GI normal to inspection, nondistended, normoactive bowel sounds, soft to palpation, non-tender and non-distended Extremity normal to inspection and full ROM Skin Skin Narrative: no rashes Neuro Sensorium / Orientation: awake and alert Assessment & Plan Assessment/Plan (1) Compression fracture of T11 vertebra: QUALIFIERS: Encounter type: initial encounter Qualified Code(s): S22.080A - Wedge compression fracture of T11-T12 vertebra, initial encounter for closed fracture PLAN: noted on CT a/p pain mgmt consult with associated back pain. (2) Bacteremia: PLAN: S. aureus, unclear source. 2/2 positive on 02/17 (reported positive on 02/18 at 1120). Vancomycin ordered. Will order repeat blood cultures. unclear source UA negative, therefore there is no UTI at this time. Will discontinue levofloxacin. ID consult. (3) Hyponatremia: PLAN: ongoing. stable. PLAN: Plan Chronic conditions: HLP: statin HTN: atenolol, lisinopril hypothyroidism: levothyroxine. TSH WNL. VTE prophylaxis: LMWH. Charges/Coding Visit Charges Inpatient E&M: 86716 Subs Hosp L2
[2025-02-19 08:55] LABS: Hematocrit 33.7 % (37-47); Hemoglobin 11.5 g/dL (12.0-15.0); Immature Granulocytes Count 0.070 X10^3/uL (0.0-0.0); Mean Corp Hgb Conc 34.1 g/dL (32-36); Mean Corpuscular Volume 91.6 fL (81-99); Mean Platelet Vol. 10.4 fl (6.2-12.0); NRBC Flagged by Analyzer 0 % (0-5); Platelet Count 183 K/mm3 (150-450); RBC Distribution Width CV 13.9 % (11.6-14.6); RBC Distribution Width SD 47.6 fl (35.1-43.9); Red Blood Count 3.68 M/mm3 (4.2-5.4); White Blood Count 10.5 K/mm3 (4.4-11.0)
[2025-02-19 09:35] LABS: Anion Gap 9 (5-15); BUN 11 mg/dL (4-19); BUN/Creat Ratio 14.9 RATIO (10-20); Calcium,Total 8.1 mg/dL (7.6-11.0); Carbon Dioxide 21.6 mmol/L (21.0-32.0); Chloride 97 mmol/L (98-108); Estimated Creatinine Clearance 75.80 ml/min (50-250); Glucose 101 mg/dL (70-99); Magnesium 1.9 mg/dL (1.5-2.2); Potassium 4.0 mmol/L (3.3-5.1)
--- NOTE | 2025-02-19 12:06 | ECHOD_ITS ---
Reason For Study Reason For Study: Murmur Procedure This was a 2D Doppler, Color Flow transthoracic echocardiogram. Exam performed portable in patient room. Left Ventricle Normal LV size. Left ventricular systolic function is normal. The left ventricular ejection fraction is 60 %. No regional wall motion abnormalities noted. Right Ventricle Normal RV size. Normal systolic function. Atria Normal left atrium. Normal right atrium. Mitral Valve Normal mitral valve. Mild (1+) eccentric mitral valve insufficiency. Tricuspid Valve Normal tricuspid valve. Mild (1+) tricuspid valve insufficiency. Pulmonary artery systolic pressure is 28 mmHg. Aortic Valve Trisinus/trileaflet aortic valve. Pulmonic Valve Normal pulmonic valve. Great Vessels Normal aortic root. The pulmonary artery is normal size. Inferior vena cava collapse with respiration. Pericardium/Pleural No pericardial effusion. MMode/2D Measurements & Calculations LVIDd: 4.8 cm IVSd: 1.1 cm Ao root diam: 3.5 cm LVIDs: 3.2 cm LVPWd: 0.86 cm RVDd: 3.9 cm FS: 33.3 % LAV(MOD-bp): 67.3 ml LVAd ap4: 28.3 cm2 SV(MOD-sp4): 54.4 ml LAV(MOD-bp) Indexed: 33.1 ml/m2 LVLd ap4: 7.2 cm SI(MOD-sp4): 26.7 ml/m2 LAV(MOD-sp2): 75.8 ml EDV(MOD-sp4): 88.4 ml LAV(MOD-sp4): 56.1 ml EDV(sp4-el): 94.5 ml LVAs ap4: 16.1 cm2 LVLs ap4: 6.1 cm ESV(MOD-sp4): 34.0 ml ESV(sp4-el): 36.0 ml EF(MOD-sp4): 61.5 % EF(sp4-el): 61.9 % SV(sp4-el): 58.5 ml LA A4 area: 19.5 cm2 LA dimension(2D): 4.6 cm RA A4 area: 17.4 cm2 TAPSE: 2.7 cm Time Measurements MV dec time: 0.17 sec Doppler Measurements & Calculations MV E max kwame: 92.9 cm/sec Lat Peak E' Kwame: 10.9 cm/sec Med Peak E' Kwame: 8.7 cm/sec MV A max kwame: 83.4 cm/sec E/E' lat: 8.6 E/E' med: 10.7 MV E/A: 1.1 MV V2 max: 110.3 cm/sec MV P1/2t max kwame: 111.3 cm/sec Ao V2 max: 132.3 cm/sec MV max P.9 mmHg MV P1/2t: 73.1 msec Ao max P.0 mmHg MV V2 mean: 60.6 cm/sec Ao V2 mean: 87.5 cm/sec MV mean P.7 mmHg MV dec slope: 445.7 cm/sec2 Ao mean P.6 mmHg MV V2 VTI: 31.4 cm MVA(P1/2t): 3.0 cm2 Ao V2 VTI: 29.0 cm AV (velocity ratio): 0.87 LV V1 max: 108.8 cm/sec PA V2 max: 80.7 cm/sec TR max kwame: 243.0 cm/sec LV V1 max P.8 mmHg PA V2 mean: 60.8 cm/sec TR max P.6 mmHg LV V1 mean P.6 mmHg LV V1 mean: 75.6 cm/sec LV V1 VTI: 25.1 cm ECHO/Echo Complete Interpretation Summary Normal LV size. Left ventricular systolic function is normal. The left ventricular ejection fraction is 60 %. Mild (1+) tricuspid valve insufficiency. There is no evidence of a mass or vegetation. This does not rule out endocardit is. Ordering Physician: Ricki Aviles Performed By: Yusuf Tobias RCS
[2025-02-19] MEDS: Cefazolin 2 GM in 0.9% Normal Saline (100mL Bag) 100 ML IV ×2 (14:24→21:34)
--- NOTE | 2025-02-19 14:27 | CASEMGMT ---
ZIA GILMORE Assessment: Face to Face with pt for initial transition planning/care coordination assessment. ZIA GILMORE introduced self and role at [facility], pt voices understanding and consents to assessment. Pt is A&O x4 and answers all questions appropriately at this time. Care providers, pharmacy, and demographics verified/updated. Strata:2 Admitting Dx: Hyponatremia, fever, back pain and altered mental status PCP: Myesha Specialists: Basali, Pain Management; Leona, Ortho; Alzheimers doctor. Preferred Pharmacy: [facility] Insurance: [id number] [facility] Prescription Benefit: yes LNOK: Daughter, Holly Living Arrangements: Pt lives in a 1 level home with 10 steps to enter. ADLs: Pt states I at baseline. Transportation: Pt drives self and denies concerns with transportation. DME: Walker, cane, shower bench. HHC/SNF: Pt states no concerns with going home at time of dc. ZIA GILMORE discussed different levels of care at time of DC, from RU to OP Therapy. Pt does not want to go to a SNF. Pt open to the idea of HHC. ZIA GILMORE explained to Pt they would need to be home bound. Pt states she goes out to get her own groceries, etc. Discussed OP PT option, pt does not want to drive to [place] for therapy. At this time Pt is refusing any DC needs. Pt states no further concerns/needs. CM to follow. Advised pt to ask CM if any further question/concerns/needs arise, voices understanding. Pt Goal: Home Plan: Home with family support, follow therapy for recs. Aurora LIZARRAGA CM
--- NOTE | 2025-02-19 15:33 | PCM.CONS.GEN ---
Assessment & Plan Assessment/Plan (1) Bacteremia: PLAN: MSSA bacteremia per pcr, concern for recent spine injection as possible source. CT lumbar did not show any abscess. Given hardware in place, MRI likely would not be helpful. Repeat bcx sent this AM, will order echo. She reports no issues with keflex or amox in past, will change vanc to cefazolin. Dr. Laurent consulted. Will follow, thank you HPI Consult Data Date of Consult: 02/19/25 HPI Narrative Reason for Consultation: bacteremia HPI Narrative: REYNALDO CALDERON, is a 69 F with spine hardware in place, had spine steroid injection on 02/15/25, over next few days, new fever, chills, fatigue. No rash, no change in chronic back pain. Had some confusion, came to ED 02/17 and now on vanc after initial levaquin. Feeling better. No new joint pain. Full ROS performed and neg except as noted above. PFSH Home Medications ?Medication ?Instructions ?Recorded ?Last Taken ?Type atenolol 25 mg tablet 25 mg PO DAILY 07/07/17 07/17/17 History montelukast 10 mg tablet 10 mg PO DAILY 07/07/17 07/17/17 History atorvastatin 10 mg tablet 10 mg PO DAILY 07/15/17 07/17/17 History gabapentin 300 mg capsule 300 mg PO 4X/DAY 07/15/17 07/17/17 History fluticasone propionate 44 2 puff inhalation BID PRN Allergies 07/17/17 Unknown History mcg/actuation HFA aerosol inhaler (Flovent HFA) donepezil 10 mg tablet 10 mg PO DAILY 02/17/25 Unknown History lisinopril 40 mg tablet 40 mg PO DAILY 02/17/25 Unknown History meloxicam 7.5 mg tablet 7.5 mg PO DAILY 02/17/25 Unknown History Allergy/AdvReac Type Severity Reaction Status Date / Time Penicillins Allergy Severe Anaphylaxis Verified 02/19/25 13:52 Social History Smoking Status: Former smoker Physical Exam Const alert, oriented x3 and no apparent distress General Appearance: cooperative HEENT normocephalic and head/scalp atraumatic Eyes PERRL and EOMs intact bilaterally Neck supple and No nodes Resp normal air movement and clear to auscultation bilaterally Cardio regular rate, regular rhythm and no murmurs GI soft to palpation, non-tender and non-distended Extremity Extremity Narrative: No focal spine tenderness General Extremity: no tenderness to palpation of joints or extremities; Negative for edema Skin no rashes or lesions noted Skin Narrative: no splinter hemorrhages on fingers Neuro CN's II-XII intact bilaterally Lab / Micro Data Attestation: I reviewed the patient's lab results. 02/19/25 08:20 02/19/25 08:20 Labs: Laboratory Results - last 24 hr 02/18/25 17:50: Sodium 125 L, Potassium 4.6, Chloride 94 L, Carbon Dioxide 17.4 L, Anion Gap 14, BUN 13, Creatinine 0.71, Estim Creat Clear Calc 75.55, Est GFR (MDRD) Non-Af 91, BUN/Creatinine Ratio 18.7, Glucose 122 H, Calcium 7.8 02/19/25 08:20: WBC 10.5, RBC 3.68 L, Hgb 11.5 L, Hct 33.7 L, MCV 91.6, MCH 31.3, MCHC 34.1, RDW Std Deviation 47.6 H, RDW Coeff of Lian 13.9, Plt Count 183, MPV 10.4, Immature Gran % (Auto) 0.700, Neut % (Auto) 84.6 H, Lymph % (Auto) 7.4 L, [place] % (Auto) 7.0, Eos % (Auto) 0.1, Baso % (Auto) 0.2, Absolute Neuts (auto) 8.9 H, Absolute Lymphs (auto) 0.78 L, Nucleated RBC % 0, Sodium 127 L, Potassium 4.0, Chloride 97 L, Carbon Dioxide 21.6, Anion Gap 9, BUN 11, Creatinine 0.71, Estim Creat Clear Calc 75.80, Est GFR (MDRD) Non-Af 92, BUN/Creatinine Ratio 14.9, Glucose 101 H, Calcium 8.1, Phosphorus 2.2 L, Magnesium 1.9 Micro: Microbiology 02/17/25 21:50 Blood Culture (Wb) - Left Hand Blood Culture - Preliminary Staphylococcus aureus 02/17/25 21:10 Blood Culture (Wb) - Left Hand Bacteria Detection (PCR) - Final Staphylococcus aureus 02/17/25 21:10 Blood Culture (Wb) - Left Hand Blood Culture - Preliminary Staphylococcus aureus
[2025-02-19] MEDS: MELATONIN 3 MG TABLET PO (21:42)
[2025-02-20] VITALS (7 sets, daily range): BP systolic 147–168; BP diastolic 64–81; PULSE 61–78; RESP 16–19; TEMP 36.3–36.8; O2SAT 95–100; BMI 33.5
[2025-02-20] MEDS: 0.9% Normal Saline (1000mL) 1,000 ML 125 ML IV ×3 (00:54→17:33)
[2025-02-20] MEDS: Cefazolin 2 GM in 0.9% Normal Saline (100mL Bag) 100 ML IV ×3 (05:46→22:21)
[2025-02-20 06:50] LABS: Hematocrit 34.8 % (37-47); Hemoglobin 11.5 g/dL (12.0-15.0); Immature Granulocytes Count 0.110 X10^3/uL (0.0-0.0); Mean Corp Hgb Conc 33.0 g/dL (32-36); Mean Corpuscular Volume 92.6 fL (81-99); Mean Platelet Vol. 10.3 fl (6.2-12.0); NRBC Flagged by Analyzer 0 % (0-5); Platelet Count 205 K/mm3 (150-450); RBC Distribution Width CV 13.9 % (11.6-14.6); RBC Distribution Width SD 47.5 fl (35.1-43.9); Red Blood Count 3.76 M/mm3 (4.2-5.4); White Blood Count 10.5 K/mm3 (4.4-11.0)
[2025-02-20] MEDS: Budesonide Respules 0.5 MG/2 ML AMPUL.NEB. INHALATION (07:29)
[2025-02-20] MEDS: Lactobacillis Acidophilus 1 CAP PO ×4 (07:46→22:20)
--- NOTE | 2025-02-20 07:46 | PCM.PN.HOSP ---
Reason for Visit Reason for Visit: Diagnoses Elevated white blood cell count, unspecified (02/17/25) Obesity, unspecified (02/17/25) Hypo-osmolality and hyponatremia (02/17/25) Unspecified dementia, unspecified severity, without behavioral disturbance, psychotic disturbance, mood disturbance, and anxiety (02/17/25) Other chronic pain (02/17/25) Metabolic encephalopathy (02/17/25) Low back pain, unspecified (02/17/25) Fever, unspecified (02/17/25) Bacteremia (02/17/25) Wedge compression fracture of T11-T12 vertebra, initial encounter for closed fracture (02/17/25) Subjective Subjective Back pain better. Objective Data Objective Data Vital Signs: Vital Signs Temp Pulse Resp BP Pulse Ox O2 Del Method 36.4 C L 76 16 159/75 H 99 Room Air 02/20/25 07:00 02/20/25 07:29 02/20/25 07:29 02/20/25 07:00 02/20/25 07:29 02/20/25 07:29 Oxygen Delivery Method Room Air Weight: 94.5 kg Body Mass Index (BMI) 33.5 Intake & Output: Intake and Output for Last 24 Hours 02/18/25 02/19/25 02/20/25 23:59 23:59 23:59 Intake Total 4591.81 / 4591.81 410 / 410 Balance 4591.81 / 4591.81 410 / 410 Lab / Micro Data 02/20/25 06:40 02/20/25 06:40 Labs: Laboratory Results - last 24 hr 02/19/25 08:20: WBC 10.5, RBC 3.68 L, Hgb 11.5 L, Hct 33.7 L, MCV 91.6, MCH 31.3, MCHC 34.1, RDW Std Deviation 47.6 H, RDW Coeff of Lian 13.9, Plt Count 183, MPV 10.4, Immature Gran % (Auto) 0.700, Neut % (Auto) 84.6 H, Lymph % (Auto) 7.4 L, [place] % (Auto) 7.0, Eos % (Auto) 0.1, Baso % (Auto) 0.2, Absolute Neuts (auto) 8.9 H, Absolute Lymphs (auto) 0.78 L, Nucleated RBC % 0, Sodium 127 L, Potassium 4.0, Chloride 97 L, Carbon Dioxide 21.6, Anion Gap 9, BUN 11, Creatinine 0.71, Estim Creat Clear Calc 75.80, Est GFR (MDRD) Non-Af 92, BUN/Creatinine Ratio 14.9, Glucose 101 H, Calcium 8.1, Phosphorus 2.2 L, Magnesium 1.9 02/20/25 06:40: WBC 10.5, RBC 3.76 L, Hgb 11.5 L, Hct 34.8 L, MCV 92.6, MCH 30.6, MCHC 33.0, RDW Std Deviation 47.5 H, RDW Coeff of Lian 13.9, Plt Count 205, MPV 10.3, Immature Gran % (Auto) 1.000 H, Neut % (Auto) 75.5 H, Lymph % (Auto) 15.1 L, [place] % (Auto) 7.9, Eos % (Auto) 0.1, Baso % (Auto) 0.4, Absolute Neuts (auto) 7.9 H, Absolute Lymphs (auto) 1.59, Nucleated RBC % 0 Micro: Microbiology 02/19/25 09:50 Blood Culture (Wb) - Anticubital Left Blood Culture - Preliminary 02/17/25 21:50 Blood Culture (Wb) - Left Hand Blood Culture - Preliminary Staphylococcus aureus 02/17/25 21:10 Blood Culture (Wb) - Left Hand Bacteria Detection (PCR) - Final Staphylococcus aureus 02/17/25 21:10 Blood Culture (Wb) - Left Hand Blood Culture - Preliminary Staphylococcus aureus 02/17/25 23:30 Mucosa - Nasopharyngeal Respiratory Panel (PCR) - Final Radiography Diagnostic Testing: Radiology Impression Echocardiogram 02/19/25 12:06 Interpretation Summary Normal LV size. Left ventricular systolic function is normal. The left ventricular ejection fraction is 60 %. Mild (1+) tricuspid valve insufficiency. There is no evidence of a mass or vegetation. This does not rule out endocarditis. Ordering Physician: Ricki Aviles Performed By: Yusuf Tobias RCS Physical Exam Const alert and no apparent distress Constitutional Narrative: up in chair. HEENT head/scalp atraumatic and moist oral mucous membranes Resp normal respiratory effort, no retractions, no use of accessory muscles and clear to auscultation bilaterally Cardio regular rate, regular rhythm, S1 normal heart sound and S2 normal heart sound GI normal to inspection, nondistended, normoactive bowel sounds, soft to palpation, non-tender and non-distended Neuro Sensorium / Orientation: awake and alert Assessment & Plan Assessment/Plan (1) Bacteremia: PLAN: S. aureus, unclear source. 2/2 positive on 02/17 (reported positive on 02/18 at 1120). Vancomycin ordered. Repeat blood culture on 02/19 showing GPC. Will repeat BCx. unclear source UA negative, therefore there is no UTI at this time. Will discontinue levofloxacin. ID consult. TTE shows an EF 60% w/o vegetation. (2) Compression fracture of T11 vertebra: QUALIFIERS: Encounter type: initial encounter Qualified Code(s): S22.080A - Wedge compression fracture of T11-T12 vertebra, initial encounter for closed fracture PLAN: noted on CT a/p pain mgmt consult with associated back pain. DW Dr. Laurent, on 02/19: has a recent SI joint injection. Last month had an epidural. He does not feel these were a source of infection. Has been known prior to presentation and is to follow up with Dr. Delgadillo at [facility]. (3) Hyponatremia: PLAN: ongoing. stable. PLAN: Plan Chronic conditions: HLP: statin HTN: atenolol, lisinopril hypothyroidism: levothyroxine. TSH WNL. VTE prophylaxis: LMWH. Charges/Coding Visit Charges Inpatient E&M: 32455 Subs Hosp L2
[2025-02-20] MEDS: Na Biphos/Potassium Phosphate PACKET 1 PACKET PO ×2 (07:47→22:21)
[2025-02-20 09:26] LABS: Anion Gap 13 (5-15); BUN 10 mg/dL (4-19); BUN/Creat Ratio 10.4 RATIO (10-20); Calcium,Total 7.4 mg/dL (7.6-11.0); Carbon Dioxide 17.9 mmol/L (21.0-32.0); Chloride 107 mmol/L (98-108); Estimated Creatinine Clearance 61.88 ml/min (50-250); Glucose 104 mg/dL (70-99); Potassium 3.3 mmol/L (3.3-5.1)
--- NOTE | 2025-02-20 10:32 | PCM.PN.ID ---
Physical Exam Narrative Feeling better, no fever, no n/v/d, no new pain Const alert and no apparent distress General Appearance: cooperative Resp normal air movement and clear to auscultation bilaterally Cardio regular rate and regular rhythm GI soft to palpation, non-tender and non-distended Skin no rashes or lesions noted Skin Narrative: No redness/swelling/drainage at injection site ID ID: Route of nutrition/ use of supplements: [] Nutritional Intake: [] IV Site: [] Borden Catheter: [] Assessment & Plan Assessment/Plan (1) Bacteremia: PLAN: MSSA bacteremia per pcr, concern for recent spine injection as possible source. CT lumbar did not show any abscess. Given hardware in place, MRI likely would not be helpful. Repeat bcx sent this AM, no veg seen on TTE. She reports no issues with keflex or amox in past, will cont cefazolin. Dr. Laurent consulted. Will follow
[2025-02-20] MEDS: 0.9% Saline Lock 10 ML Syringe IV ×2 (17:33→19:59)
[2025-02-20] MEDS: MELATONIN 3 MG TABLET PO (23:18)
[2025-02-21] VITALS (7 sets, daily range): BP systolic 133–149; BP diastolic 70–100; PULSE 70–80; RESP 15–18; TEMP 36.3–37.1; O2SAT 97–99; BMI 33.7
[2025-02-21] MEDS: 0.9% Normal Saline (1000mL) 1,000 ML 125 ML IV ×4 (00:41→20:00)
[2025-02-21] MEDS: Cefazolin 2 GM in 0.9% Normal Saline (100mL Bag) 100 ML IV ×3 (06:00→20:43)
[2025-02-21] MEDS: Budesonide Respules 0.5 MG/2 ML AMPUL.NEB. INHALATION ×2 (06:42→20:25)
[2025-02-21 06:57] LABS: Anion Gap 14 (5-15); BUN 10 mg/dL (4-19); BUN/Creat Ratio 16.2 RATIO (10-20); Calcium,Total 8.6 mg/dL (7.6-11.0); Carbon Dioxide 15.4 mmol/L (21.0-32.0); Chloride 102 mmol/L (98-108); Estimated Creatinine Clearance 76.09 ml/min (50-250); Glucose 105 mg/dL (70-99); Potassium 4.4 mmol/L (3.3-5.1)
--- NOTE | 2025-02-21 07:26 | PCM.PN.HOSP ---
Reason for Visit Reason for Visit: Diagnoses Elevated white blood cell count, unspecified (02/17/25) Obesity, unspecified (02/17/25) Hypo-osmolality and hyponatremia (02/17/25) Unspecified dementia, unspecified severity, without behavioral disturbance, psychotic disturbance, mood disturbance, and anxiety (02/17/25) Other chronic pain (02/17/25) Metabolic encephalopathy (02/17/25) Low back pain, unspecified (02/17/25) Fever, unspecified (02/17/25) Bacteremia (02/17/25) Wedge compression fracture of T11-T12 vertebra, initial encounter for closed fracture (02/17/25) Subjective Subjective Feeling well. No events. Objective Data Objective Data Vital Signs: Vital Signs Temp Pulse Resp BP Pulse Ox O2 Del Method 36.4 C L 80 18 139/77 H 97 Room Air 02/21/25 03:12 02/21/25 06:42 02/21/25 06:42 02/21/25 03:12 02/21/25 03:12 02/21/25 03:12 Oxygen Delivery Method Room Air Weight: 95.2 kg Body Mass Index (BMI) 33.7 Intake & Output: Intake and Output for Last 24 Hours 02/19/25 02/20/25 02/21/25 23:59 23:59 23:59 Intake Total 4591.81 / 4591.81 4801.67 / 4801.67 1489.59 / 1489.59 Balance 4591.81 / 4591.81 4801.67 / 4801.67 1489.59 / 1489.59 Lab / Micro Data 02/21/25 07:45 02/21/25 06:00 Labs: Laboratory Results - last 24 hr 02/20/25 06:40: Sodium 138, Potassium 3.3, Chloride 107, Carbon Dioxide 17.9 L, Anion Gap 13, BUN 10, Creatinine 0.98, Estim Creat Clear Calc 61.88, Est GFR (MDRD) Non-Af 62, BUN/Creatinine Ratio 10.4, Glucose 104 H, Calcium 7.4 L 02/21/25 06:00: WBC Cancelled, Corrected WBC Cancelled, RBC Cancelled, Hgb Cancelled, Hct Cancelled, MCV Cancelled, MCH Cancelled, MCHC Cancelled, RDW Std Deviation Cancelled, RDW Coeff of Lian Cancelled, Plt Count Cancelled, MPV Cancelled, Immature Gran % (Auto) Cancelled, Neut % (Auto) Cancelled, Lymph % (Auto) Cancelled, [place] % (Auto) Cancelled, Eos % (Auto) Cancelled, Baso % (Auto) Cancelled, Absolute Neuts (auto) Cancelled, Absolute Lymphs (auto) Cancelled, Total Counted Cancelled, Neutrophils % (Manual) Cancelled, Band Neutrophils % Cancelled, Lymphocytes % (Manual) Cancelled, Monocytes % (Manual) Cancelled, Eosinophils % (Manual) Cancelled, Basophils % (Manual) Cancelled, Metamyelocytes % Cancelled, Myelocytes % Cancelled, Promyelocytes % Cancelled, Blast Cells % Cancelled, Plasma Cell % (Manual) Cancelled, Other Cells % Cancelled, Nucleated RBC % Cancelled, Nucleated RBCs/100 WBC Cancelled, Differential Comment Cancelled, Diff Path Review Cancelled, Hypersegmented Neuts Cancelled, Atypical Lymphocytes Cancelled, Reactive Lymphocytes Cancelled, Smudge Cells Cancelled, Toxic Granulation Cancelled, Toxic Vacuolation Cancelled, Dohle Bodies Cancelled, Shaun Rods Cancelled, Platelet Estimate Cancelled, Plt Morphology Comment Cancelled, RBC Morphology Cancelled 02/21/25 06:00: RBC Morphology Cancelled, Polychromasia Cancelled, Hypochromasia Cancelled, Basophilic Stippling Cancelled, Anisocytosis Cancelled, Microcytosis Cancelled, Macrocytosis Cancelled, Spherocytes Cancelled, Sickle Cells Cancelled, Target Cells Cancelled, Tear Drop Cells Cancelled, Ovalocytes Cancelled, Stomatocytes Cancelled, Becerril-[place] Bodies Cancelled, [place] Cells Cancelled, Bite Cells Cancelled, Crenated Cell Cancelled, Acanthocytes (Spur) Cancelled, Rouleaux Cancelled, Schistocytes Cancelled, Sodium 131 L, Potassium 4.4, Chloride 102, Carbon Dioxide 15.4 L, Anion Gap 14, BUN 10, Creatinine 0.61 L, Estim Creat Clear Calc 76.09, Est GFR (MDRD) Non-Af 96, BUN/Creatinine Ratio 16.2, Glucose 105 H, Calcium 8.6 Micro: Microbiology 02/20/25 09:19 Blood Culture (Wb) - Anticubital Right Blood Culture - Preliminary 02/17/25 21:50 Blood Culture (Wb) - Left Hand Blood Culture - Final Staphylococcus aureus 02/17/25 21:10 Blood Culture (Wb) - Left Hand Bacteria Detection (PCR) - Final Staphylococcus aureus 02/17/25 21:10 Blood Culture (Wb) - Left Hand Blood Culture - Final Staphylococcus aureus 02/19/25 09:50 Blood Culture (Wb) - Anticubital Left Blood Culture - Preliminary 02/17/25 23:30 Mucosa - Nasopharyngeal Respiratory Panel (PCR) - Final Physical Exam Const Constitutional Narrative: Up in chair. Nontoxic. Afebrile. HEENT head/scalp atraumatic and moist oral mucous membranes Resp normal respiratory effort, no retractions, no use of accessory muscles and clear to auscultation bilaterally Cardio regular rate, regular rhythm, S1 normal heart sound and S2 normal heart sound GI normal to inspection, nondistended, normoactive bowel sounds, soft to palpation and non-tender Extremity normal to inspection and full ROM Assessment & Plan Assessment/Plan (1) Bacteremia: PLAN: S. aureus, MSSA; unclear source. 2 of 2 positive on 02/17, positive on 02/19 and 02/20. Repeat blood culture again today. . unclear source UA negative, therefore there is no UTI at this time. ID following. TTE shows an EF 60% w/o vegetation. Ordered DALILA. Discussed with cardiology and would not be able to be performed until the . (2) Compression fracture of T11 vertebra: QUALIFIERS: Encounter type: initial encounter Qualified Code(s): S22.080A - Wedge compression fracture of T11-T12 vertebra, initial encounter for closed fracture PLAN: noted on CT a/p pain mgmt consult with associated back pain. DW Dr. Laurent, on 02/19: has a recent SI joint injection. Last month had an epidural. He does not feel these were a source of infection. Has been known prior to presentation and is to follow up with Dr. Delgadillo at [facility]. (3) Hyponatremia: PLAN: ongoing. stable. PLAN: Plan Chronic conditions: HLP: statin HTN: atenolol, lisinopril hypothyroidism: levothyroxine. TSH WNL. VTE prophylaxis: LMWH. Discussed with patient's daughter at bedside. Charges/Coding Visit Charges Inpatient E&M: 86617 Subs Hosp L2
[2025-02-21 08:10] LABS: Hematocrit 37.8 % (37-47); Hemoglobin 12.8 g/dL (12.0-15.0); Immature Granulocytes Count 0.150 X10^3/uL (0.0-0.0); Mean Corp Hgb Conc 33.9 g/dL (32-36); Mean Corpuscular Volume 92.0 fL (81-99); Mean Platelet Vol. 9.8 fl (6.2-12.0); NRBC Flagged by Analyzer 0 % (0-5); Platelet Count 280 K/mm3 (150-450); RBC Distribution Width CV 14.0 % (11.6-14.6); RBC Distribution Width SD 47.5 fl (35.1-43.9); Red Blood Count 4.11 M/mm3 (4.2-5.4); White Blood Count 12.1 K/mm3 (4.4-11.0)
[2025-02-21] MEDS: Lactobacillis Acidophilus 1 CAP PO ×4 (09:03→20:40)
[2025-02-21] MEDS: Na Biphos/Potassium Phosphate PACKET 1 PACKET PO ×2 (09:03→20:40)
--- NOTE | 2025-02-21 13:26 | PCM.PN.ID ---
Physical Exam Narrative Mild pain L foot. No fever, no n/v/d. No other new pain. Const alert and no apparent distress General Appearance: cooperative Resp normal air movement and clear to auscultation bilaterally Cardio regular rate and regular rhythm GI soft to palpation, non-tender and non-distended Extremity General Extremity: Negative for edema Skin no rashes or lesions noted ID ID: Route of nutrition/ use of supplements: [] Nutritional Intake: [] IV Site: [] Borden Catheter: [] Assessment & Plan Assessment/Plan (1) Bacteremia: PLAN: MSSA bacteremia, concern for recent spine injection as possible source but no issues at injection site. CT lumbar did not show any abscess. Given hardware in place, MRI likely would not be helpful. Repeat bcx sent this AM, no veg seen on TTE. She reports no issues with keflex or amox in past, will cont cefazolin. Recommend DALILA, d/w primary team. Will follow
[2025-02-22] VITALS (8 sets, daily range): BP systolic 140–167; BP diastolic 58–84; PULSE 62–72; RESP 18; TEMP 36.3–37.1; O2SAT 94–99; BMI 34.2
[2025-02-22] MEDS: Cefazolin 2 GM in 0.9% Normal Saline (100mL Bag) 100 ML IV ×3 (04:55→21:15)
[2025-02-22] MEDS: 0.9% Normal Saline (1000mL) 1,000 ML 125 ML IV ×2 (05:53→17:24)
[2025-02-22 06:22] LABS: Hematocrit 32.2 % (37-47); Hemoglobin 11.0 g/dL (12.0-15.0); Immature Granulocytes Count 0.180 X10^3/uL (0.0-0.0); Mean Corp Hgb Conc 34.2 g/dL (32-36); Mean Corpuscular Volume 91.0 fL (81-99); Mean Platelet Vol. 10.1 fl (6.2-12.0); NRBC Flagged by Analyzer 0 % (0-5); POSITIVE MORPHOLOGY YES; Platelet Count 277 K/mm3 (150-450); RBC Distribution Width CV 13.8 % (11.6-14.6); RBC Distribution Width SD 46.5 fl (35.1-43.9); Red Blood Count 3.54 M/mm3 (4.2-5.4); White Blood Count 10.0 K/mm3 (4.4-11.0)
[2025-02-22 06:25] LABS: Differential Indicated SCAN CRITERIA MET
[2025-02-22] MEDS: Budesonide Respules 0.5 MG/2 ML AMPUL.NEB. INHALATION (07:05)
[2025-02-22 07:08] LABS: Differential Comment SCANNED; Red Cell Morphology NORM C+C NORMAL (NORM C&C)
--- NOTE | 2025-02-22 07:46 | PCM.PN.HOSP ---
Reason for Visit Reason for Visit: Diagnoses Elevated white blood cell count, unspecified (02/17/25) Obesity, unspecified (02/17/25) Hypo-osmolality and hyponatremia (02/17/25) Unspecified dementia, unspecified severity, without behavioral disturbance, psychotic disturbance, mood disturbance, and anxiety (02/17/25) Other chronic pain (02/17/25) Metabolic encephalopathy (02/17/25) Low back pain, unspecified (02/17/25) Fever, unspecified (02/17/25) Bacteremia (02/17/25) Wedge compression fracture of T11-T12 vertebra, initial encounter for closed fracture (02/17/25) Subjective Subjective No new events. Underwent DALILA today. Pain is stable for her. Objective Data Objective Data Vital Signs: Vital Signs Temp Pulse Resp BP Pulse Ox O2 Del Method 37.1 C 72 18 157/58 H 99 Room Air 02/22/25 03:37 02/22/25 03:37 02/22/25 03:37 02/22/25 03:37 02/22/25 03:37 02/22/25 03:37 Oxygen Delivery Method Room Air Weight: 96.6 kg Body Mass Index (BMI) 34.2 Intake & Output: Intake and Output for Last 24 Hours 02/20/25 02/21/25 02/22/25 23:59 23:59 23:59 Intake Total 4801.67 / 4801.67 4770.42 / 4770.42 1110 / 1110 Balance 4801.67 / 4801.67 4770.42 / 4770.42 1110 / 1110 Lab / Micro Data 02/22/25 05:59 02/22/25 05:07 Labs: Laboratory Results - last 24 hr 02/21/25 07:45: WBC 12.1 H, RBC 4.11 L, Hgb 12.8, Hct 37.8, MCV 92.0, MCH 31.1, MCHC 33.9, RDW Std Deviation 47.5 H, RDW Coeff of Lian 14.0, Plt Count 280, MPV 9.8, Immature Gran % (Auto) 1.200 H, Neut % (Auto) 75.5 H, Lymph % (Auto) 16.0 L, [place] % (Auto) 6.6, Eos % (Auto) 0.4, Baso % (Auto) 0.3, Absolute Neuts (auto) 9.1 H, Absolute Lymphs (auto) 1.94, Nucleated RBC % 0 02/22/25 05:59: WBC 10.0, RBC 3.54 L, Hgb 11.0 L, Hct 32.2 L, MCV 91.0, MCH 31.1, MCHC 34.2, RDW Std Deviation 46.5 H, RDW Coeff of Lian 13.8, Plt Count 277, MPV 10.1, Immature Gran % (Auto) 1.800 H, Neut % (Auto) 61.7, Lymph % (Auto) 26.8, [place] % (Auto) 8.6, Eos % (Auto) 0.6, Baso % (Auto) 0.5, Absolute Neuts (auto) 6.2, Absolute Lymphs (auto) 2.69, Nucleated RBC % 0, Differential Comment SCANNED, Platelet Estimate ADEQUATE, RBC Morphology NORM C+C Micro: Microbiology 02/19/25 09:50 Blood Culture (Wb) - Anticubital Left Blood Culture - Final Staphylococcus aureus 02/20/25 09:19 Blood Culture (Wb) - Anticubital Right Blood Culture - Preliminary 02/17/25 21:50 Blood Culture (Wb) - Left Hand Blood Culture - Final Staphylococcus aureus 02/17/25 21:10 Blood Culture (Wb) - Left Hand Bacteria Detection (PCR) - Final Staphylococcus aureus 02/17/25 21:10 Blood Culture (Wb) - Left Hand Blood Culture - Final Staphylococcus aureus 02/17/25 23:30 Mucosa - Nasopharyngeal Respiratory Panel (PCR) - Final Physical Exam Const alert and no apparent distress HEENT head/scalp atraumatic and moist oral mucous membranes Resp normal respiratory effort, no retractions, no use of accessory muscles and clear to auscultation bilaterally Cardio regular rate, regular rhythm, S1 normal heart sound and S2 normal heart sound GI normal to inspection, nondistended, normoactive bowel sounds, soft to palpation, non-tender and non-distended Extremity normal to inspection Assessment & Plan Assessment/Plan (1) Bacteremia: PLAN: S. aureus, MSSA; unclear source. 2 of 2 positive on 02/17, positive on 02/19. Repeat blood cultures on the and the th so far negative. unclear source UA negative, therefore there is no UTI at this time. ID following. TTE shows an EF 60% w/o vegetation. DALILA performed today rather than the . Primary importance that it was normal. (2) Compression fracture of T11 vertebra: QUALIFIERS: Encounter type: initial encounter Qualified Code(s): S22.080A - Wedge compression fracture of T11-T12 vertebra, initial encounter for closed fracture PLAN: noted on CT a/p pain mgmt consult with associated back pain. DW Dr. Laurent, on 02/19: has a recent SI joint injection. Last month had an epidural. He does not feel these were a source of infection. Has been known prior to presentation and is to follow up with Dr. Delgadillo at [facility]. (3) Hyponatremia: PLAN: improving. stable. PLAN: Plan Chronic conditions: HLP: statin HTN: atenolol, lisinopril hypothyroidism: levothyroxine. TSH WNL. VTE prophylaxis: LMWH. Charges/Coding Visit Charges Inpatient E&M: 30188 Subs Hosp L2
[2025-02-22 07:54] LABS: Anion Gap 11 (5-15); BUN 7 mg/dL (4-19); BUN/Creat Ratio 13.1 RATIO (10-20); Calcium,Total 8.2 mg/dL (7.6-11.0); Carbon Dioxide 21.9 mmol/L (21.0-32.0); Chloride 100 mmol/L (98-108); Estimated Creatinine Clearance 76.67 ml/min (50-250); Glucose 102 mg/dL (70-99); Potassium 3.9 mmol/L (3.3-5.1)
--- NOTE | 2025-02-22 10:00 | ECHOTEE_ITS ---
Reason For Study Reason For Study: Bacteremia Medication DALILA probe 6VT-D (SN [id number]) passed without difficulty. No complications were noted. Cetacaine Topical Lane given X3 orally. Versed 1.5 mg given slow IVP. Fentanyl 1.75 mcg given slow IVP. Performed a rapid injection of agitated mix of 9 cc saline and 1cc air to assess for atrial septal defect. [id number] gargled and swallowed. Left Ventricle Left ventricular systolic function is normal. The LV ejection fraction is 60 %. Right Ventricle Normal systolic function. Atria Normal atrial septum. Intact atrial septum. Bubble contrast study negative for right to left interatrial shunt. The left and right atria are normal. No thrombus is detected in the left atrial appendage. Normal right atrium. Mitral Valve There is no vegetation seen on the mitral valve. Trivial mitral valve insufficiency. Tricuspid Valve No vegetations identified. Trivial tricuspid valve insufficiency. Aortic Valve There is no aortic valvular vegetation. Pulmonic Valve There is no vegetation on the pulmonic valve. No pulmonic valve insufficiency identified. Vessels Moderate atherosclerosis of the aortic arch. ECHO/Echo Transesophageal (DALILA) Interpretation Summary Normal systolic function. No thrombus is detected in the left atrial appendage. No evidence of valvular vegetation Ordering Physician: Ozzy Arrington Referring Physician: Mary Brunner M.D. Performed By: Kylah Chandra, ULISSES
[2025-02-22] MEDS: Na Biphos/Potassium Phosphate PACKET 1 PACKET PO ×2 (13:48→21:13)
[2025-02-22] MEDS: Lactobacillis Acidophilus 1 CAP PO ×3 (13:48→21:13)
--- NOTE | 2025-02-22 14:53 | PN.ID_ITS ---
Physical Exam Narrative Feeling well, had DALILA this AM, no fever Const alert and no apparent distress General Appearance: cooperative HEENT normocephalic and head/scalp atraumatic Resp normal air movement and clear to auscultation bilaterally Cardio regular rate and regular rhythm GI soft to palpation, non-tender and non-distended Skin no rashes or lesions noted ID ID: Route of nutrition/ use of supplements: [] Nutritional Intake: [] IV Site: [] Borden Catheter: [] Assessment & Plan Assessment/Plan (1) Bacteremia: PLAN: MSSA bacteremia, concern for recent spine injection as possible source but no issues at injection site. CT lumbar did not show any abscess. Given hardware in place, MRI likely would not be helpful. Repeat bcx neg since 02/20/25. DALILA neg. She reports no issues with keflex or amox in past, will cont cefazolin. Given rapid bcx clearance, neg DALILA, and clinical response, ok for home with 14 days linezolid po, wrote rx. Will follow as needed, d/w special education case manager
--- NOTE | 2025-02-22 15:55 | DS.PCM_ITS ---
Providers Date of Admission: 02/17/25 Primary Care Physician: Dr. Mary Brunner MD Consultations 02/19/25 08:00 Consult: Pain Management Routine Consulting Provider: Elton Laurent Reason for Consult: recent injection EMERGENT Consult: No Notified: Yes Date Notified: 02/19/25 Time Notified: 11:02 Method of Notification: Answering Service 02/19/25 13:50 Consult: Infectious Disease Routine Consulting Provider: Ricki Aviles Reason for Consult: bacteremia EMERGENT Consult: No Notified: Yes Date Notified: 02/19/25 Time Notified: 13:50 Method of Notification: Text Reason For Visit: HYPONATREMIA, FEVER, BACK PAIN & ALTERED MENTAL Diagnosis Discharge Diagnosis (1) Bacteremia: Status: Acute Code(s): R78.81 - Bacteremia Plan: S. aureus, MSSA; unclear source. 2 of 2 positive on 02/17, positive on 02/19. Repeat blood cultures on the and the th so far negative (previously I had documented that cultures were positive on the ) unclear source UA negative, therefore there is no UTI at this time. ID following. TTE shows an EF 60% w/o vegetation. DALILA performed today rather than the . DALILA was negative. Plan Chronic conditions: * HLP: statin * HTN: atenolol, lisinopril * hypothyroidism: levothyroxine. TSH WNL. VTE prophylaxis: LMWH. Medications at Discharge Home Medications atenolol 25 mg tablet 25 mg PO DAILY 07/07/17 montelukast 10 mg tablet 10 mg PO DAILY 07/07/17 atorvastatin 10 mg tablet 10 mg PO DAILY 07/15/17 gabapentin 300 mg capsule 300 mg PO 4X/DAY 07/15/17 fluticasone propionate 44 mcg/actuation HFA aerosol inhaler (Flovent HFA) 2 puff inhalation BID PRN Allergies 07/17/17 donepezil 10 mg tablet 10 mg PO DAILY 02/17/25 lisinopril 40 mg tablet 40 mg PO DAILY 02/17/25 meloxicam 7.5 mg tablet 7.5 mg PO DAILY 02/17/25 cyclobenzaprine 5 mg tablet 5 - 10 mg PO TID PRN PRN muscle spasm 02/20/25 Held on 02/22/25. Instructions: Resume on 03/08/25. hold while on linezolid antibiotic linezolid 600 mg tablet 600 mg PO Q12H 14 days #28 tabs 02/22/25 Hospital Course Operations None Procedures Transesophageal Echo Summary of Care Provided Minutes Spent on Discharge: 32 Hospital Course: Patient presented with fever and back pain and confusion. Patient had T11 fracture which is actually not new. Patient was simply found to have Weight / BMI Weight Weight: 96.6 kg Body Mass Index (BMI) 34.2 ABG / Lab / Microbiology Data 02/22/25 05:59 02/22/25 05:07 Laboratory: Laboratory Results - last 24 hr 02/22/25 05:07: Sodium 133, Potassium 3.9, Chloride 100, Carbon Dioxide 21.9, Anion Gap 11, BUN 7, Creatinine 0.53 L, Estim Creat Clear Calc 76.67, Est GFR (MDRD) Non-Af 100, BUN/Creatinine Ratio 13.1, Glucose 102 H, Calcium 8.2 02/22/25 05:59: WBC 10.0, RBC 3.54 L, Hgb 11.0 L, Hct 32.2 L, MCV 91.0, MCH 31.1, MCHC 34.2, RDW Std Deviation 46.5 H, RDW Coeff of Lian 13.8, Plt Count 277, MPV 10.1, Immature Gran % (Auto) 1.800 H, Neut % (Auto) 61.7, Lymph % (Auto) 26.8, [place] % (Auto) 8.6, Eos % (Auto) 0.6, Baso % (Auto) 0.5, Absolute Neuts (auto) 6.2, Absolute Lymphs (auto) 2.69, Nucleated RBC % 0, Differential Comment SCANNED, Platelet Estimate ADEQUATE, RBC Morphology NORM C+C Microbiology: Microbiology 02/20/25 09:19 Blood Culture (Wb) - Anticubital Right Blood Culture - Preliminary Staphylococcus aureus 02/19/25 09:50 Blood Culture (Wb) - Anticubital Left Blood Culture - Final Staphylococcus aureus 02/17/25 21:50 Blood Culture (Wb) - Left Hand Blood Culture - Final Staphylococcus aureus 02/17/25 21:10 Blood Culture (Wb) - Left Hand Bacteria Detection (PCR) - Final Staphylococcus aureus 02/17/25 21:10 Blood Culture (Wb) - Left Hand Blood Culture - Final Staphylococcus aureus 02/17/25 23:30 Mucosa - Nasopharyngeal Respiratory Panel (PCR) - Final Radiography Diagnostic Testing: Radiology Impression Transesophageal Echocardiogram 02/22/25 10:00 Interpretation Summary Normal systolic function. No thrombus is detected in the left atrial appendage. No evidence of valvular vegetation Ordering Physician: Ozzy Arrington Referring Physician: Mary Brunner M.D. Performed By: Kylah Chandra RDCS Meaningful Use Info Ischemic Stroke Statin Dosing Therapy Reference: STATIN DOSE THERAPY REFERENCE: * Patients > 75 years receive moderate or high dose statin therapy. * Patients 75 years or YOUNGER should receive HIGH intensity statin dose unless contraindicated. You will be required to document reason for non-treatment if statin daily dose does not meet guidelines. HIGH DOSE STATIN THERAPY DAILY Atorvastatin > than or = to 40 mg Rosuvastatin > than or = to 20 mg Amlodipine + Atorvastatin > than or = to 2.5/40 mg Ezetimibe + Simvastatin 10/80 mg Simvastatin 80mg Discharge Plan Admission Admit Date/Time: 02/17/25 21:29 Attending Provider: Ozzy Arrington Primary Care Provider: Mary Brunner Consulting Providers: Maycol Walsh; Maycol Tubbs; Elton Laurent; Ricki Aviles Discharge Orders/Prescriptions Prescriptions: New linezolid 600 mg tablet 600 mg PO Q12H 14 Days Qty: 28 0RF Held cyclobenzaprine 5 mg tablet 5 - 10 mg PO TID PRN PRN (Reason: muscle spasm) Hold Instructions: Resume on 03/08/25. hold while on linezolid antibiotic No Action atenolol 25 MG tablet 25 mg PO DAILY Patient Comments: HR montelukast 10 MG tablet 10 mg PO DAILY Patient Comments: allergies atorvastatin 10 MG tablet 10 mg PO DAILY gabapentin 300 MG capsule 300 mg PO 4X/DAY fluticasone propionate [Flovent HFA] 1 INHALER inhaler 2 puff inhalation BID PRN (Reason: Allergies) donepezil 10 mg tablet 10 mg PO DAILY meloxicam 7.5 mg tablet 7.5 mg PO DAILY lisinopril 40 mg tablet 40 mg PO DAILY Referrals / Follow Up: Mary Brunner MD [Primary Care Provider] -
--- NOTE | 2025-02-22 16:51 | NURSING ---
Lab came to this RN and informed me that they were unable to obtain blood for blood cultures and that there is no one here for another 2 hours that can come draw it. Magi LIZARRAGA supervisor functional testing Aware and will come and obtain after she does staffing.
--- NOTE | 2025-02-22 17:41 | NURSING ---
This RN and Chrissie LIZARRAGA from ICU attempted to get blood for blood cultures and unable to get. Will notify Dr. Arrington.
--- NOTE | 2025-02-22 17:54 | NURSING ---
Dr. Arrington is aware that blood cultures have not been obtained. Dr. Arrington is okay with waiting until another person in lab gets here and can try to draw her. Stephanie in lab called and aware that when another person comes in they are to come try obtain blood cultures.
[2025-02-22] MEDS: MELATONIN 3 MG TABLET PO (21:13)
[2025-02-23] VITALS (9 sets, daily range): BP systolic 139–172; BP diastolic 61–96; PULSE 62–80; RESP 16–19; TEMP 36.5–36.9; O2SAT 98–100; BMI 34.2
[2025-02-23] MEDS: 0.9% Normal Saline (1000mL) 1,000 ML 125 ML IV ×2 (02:59→14:00)
[2025-02-23] MEDS: Cefazolin 2 GM in 0.9% Normal Saline (100mL Bag) 100 ML IV ×3 (05:35→22:46)
[2025-02-23 06:12] LABS: Hematocrit 34.3 % (37-47); Hemoglobin 11.6 g/dL (12.0-15.0); Immature Granulocytes Count 0.240 X10^3/uL (0.0-0.0); Mean Corp Hgb Conc 33.8 g/dL (32-36); Mean Corpuscular Volume 91.5 fL (81-99); Mean Platelet Vol. 9.7 fl (6.2-12.0); NRBC Flagged by Analyzer 0 % (0-5); Platelet Count 328 K/mm3 (150-450); RBC Distribution Width CV 13.9 % (11.6-14.6); RBC Distribution Width SD 47.0 fl (35.1-43.9); Red Blood Count 3.75 M/mm3 (4.2-5.4); White Blood Count 10.6 K/mm3 (4.4-11.0)
--- NOTE | 2025-02-23 07:06 | PN.HOSP_ITS ---
Reason for Visit Reason for Visit: Diagnoses Elevated white blood cell count, unspecified (02/17/25) Obesity, unspecified (02/17/25) Hypo-osmolality and hyponatremia (02/17/25) Unspecified dementia, unspecified severity, without behavioral disturbance, psychotic disturbance, mood disturbance, and anxiety (02/17/25) Other chronic pain (02/17/25) Metabolic encephalopathy (02/17/25) Low back pain, unspecified (02/17/25) Fever, unspecified (02/17/25) Bacteremia (02/17/25) Wedge compression fracture of T11-T12 vertebra, initial encounter for closed fracture (02/17/25) Subjective Subjective Feeling well. No events overnight. Objective Data Objective Data Vital Signs: Vital Signs Temp Pulse Resp BP Pulse Ox O2 Del Method 36.9 C 64 18 147/64 H 100 Room Air 02/23/25 03:11 02/23/25 03:18 02/23/25 03:11 02/23/25 05:35 02/23/25 03:11 02/23/25 03:11 Oxygen Delivery Method Room Air Weight: 96.6 kg Body Mass Index (BMI) 34.2 Intake & Output: Intake and Output for Last 24 Hours 02/21/25 02/22/25 02/23/25 23:59 23:59 23:59 Intake Total 4770.42 / 4770.42 2770.00 / 2770.00 1110 / 1110 Balance 4770.42 / 4770.42 2770.00 / 2770.00 1110 / 1110 Lab / Micro Data 02/23/25 05:41 02/23/25 05:41 Labs: Laboratory Results - last 24 hr 02/22/25 05:07: Sodium 133, Potassium 3.9, Chloride 100, Carbon Dioxide 21.9, Anion Gap 11, BUN 7, Creatinine 0.53 L, Estim Creat Clear Calc 76.67, Est GFR (MDRD) Non-Af 100, BUN/Creatinine Ratio 13.1, Glucose 102 H, Calcium 8.2 02/22/25 05:59: Differential Comment SCANNED, Platelet Estimate ADEQUATE, RBC Morphology NORM C+C 02/23/25 05:41: WBC 10.6, RBC 3.75 L, Hgb 11.6 L, Hct 34.3 L, MCV 91.5, MCH 30.9, MCHC 33.8, RDW Std Deviation 47.0 H, RDW Coeff of Lian 13.9, Plt Count 328, MPV 9.7, Immature Gran % (Auto) 2.300 H, Neut % (Auto) 62.4, Lymph % (Auto) 26.8, [place] % (Auto) 7.2, Eos % (Auto) 0.8, Baso % (Auto) 0.5, Absolute Neuts (auto) 6.6, Absolute Lymphs (auto) 2.85, Nucleated RBC % 0 Micro: Microbiology 02/21/25 07:45 Blood Culture (Wb) - Anticubital Right Blood Culture - Preliminary 02/20/25 09:19 Blood Culture (Wb) - Anticubital Right Blood Culture - Preliminary Staphylococcus aureus 02/19/25 09:50 Blood Culture (Wb) - Anticubital Left Blood Culture - Final Staphylococcus aureus 02/17/25 21:50 Blood Culture (Wb) - Left Hand Blood Culture - Final Staphylococcus aureus 02/17/25 21:10 Blood Culture (Wb) - Left Hand Bacteria Detection (PCR) - Final Staphylococcus aureus 02/17/25 21:10 Blood Culture (Wb) - Left Hand Blood Culture - Final Staphylococcus aureus 02/17/25 23:30 Mucosa - Nasopharyngeal Respiratory Panel (PCR) - Final Radiography Diagnostic Testing: Radiology Impression Transesophageal Echocardiogram 02/22/25 10:00 Interpretation Summary Normal systolic function. No thrombus is detected in the left atrial appendage. No evidence of valvular vegetation Ordering Physician: Ozzy Arrington Referring Physician: Mary Brunner M.D. Performed By: Kylah Chandra RDCS Physical Exam Const alert and no apparent distress HEENT head/scalp atraumatic and moist oral mucous membranes Resp normal respiratory effort, no retractions, no use of accessory muscles and clear to auscultation bilaterally Cardio regular rate, regular rhythm, S1 normal heart sound and S2 normal heart sound GI normal to inspection, nondistended, normoactive bowel sounds, soft to palpation, non-tender and non-distended Extremity normal to inspection and full ROM Neuro Sensorium / Orientation: awake and alert Assessment & Plan Assessment/Plan (1) Bacteremia: PLAN: S. aureus, MSSA; unclear source. 2 of 2 positive on 02/17, positive on 02/19, 02/20 and 02/21 (gram stain for GPC in clusters so far). Repeat blood cultures 02/22 and pending. unclear source UA negative, therefore there is no UTI at this time. ID following. TTE shows an EF 60% w/o vegetation. DALILA performed today rather than the . Negative for any vegetation. PLAN: Plan Chronic conditions: * HLP: statin * HTN: atenolol, lisinopril * hypothyroidism: levothyroxine. TSH WNL. VTE prophylaxis: LMWH. Charges/Coding Visit Charges Inpatient E&M: 33125 Subs Hosp L2
[2025-02-23] MEDS: Budesonide Respules 0.5 MG/2 ML AMPUL.NEB. INHALATION ×2 (07:11→19:40)
[2025-02-23 07:23] LABS: Anion Gap 9 (5-15); BUN 6 mg/dL (4-19); BUN/Creat Ratio 13.5 RATIO (10-20); Calcium,Total 8.5 mg/dL (7.6-11.0); Carbon Dioxide 23.1 mmol/L (21.0-32.0); Chloride 101 mmol/L (98-108); Estimated Creatinine Clearance 76.67 ml/min (50-250); Glucose 105 mg/dL (70-99); Potassium 4.2 mmol/L (3.3-5.1)
--- NOTE | 2025-02-23 08:43 | NURSING ---
This RN is aware of Vitals taken this morning by Arielle Mendoza RN
[2025-02-23] MEDS: Lactobacillis Acidophilus 1 CAP PO ×3 (08:55→23:06)
[2025-02-23] MEDS: Na Biphos/Potassium Phosphate PACKET 1 PACKET PO ×2 (08:55→23:06)
--- NOTE | 2025-02-23 09:00 | NURSING ---
Pt refused to get up in the chair as this RN attempted to get her up. Pt states that chair is uncomfortable. This RN encouraged pt to ambulate in halls then. I'll walk, I just don't like that chair. Student in there giving her her meds. Will ambulate after that and after she eats her breakfast.
--- NOTE | 2025-02-23 10:52 | PCM.PN.ID ---
Physical Exam Narrative Feeling the same, no fever, no new pain Const alert and no apparent distress General Appearance: cooperative Resp normal air movement and clear to auscultation bilaterally Cardio regular rate and regular rhythm GI soft to palpation, non-tender and non-distended Extremity Extremity Narrative: no tenderness over lower spine General Extremity: Negative for edema Skin no rashes or lesions noted ID ID: Route of nutrition/ use of supplements: [] Nutritional Intake: [] IV Site: [] Borden Catheter: [] Assessment & Plan Assessment/Plan (1) Bacteremia: PLAN: MSSA bacteremia, concern for recent spine injection as possible source but no issues at injection site. CT lumbar did not show any abscess. Given hardware in place, MRI likely would not be helpful. Repeat bcx neg since 02/20/25. DALILA neg. She reports no issues with keflex or amox in past, will cont cefazolin. Bcx cont to turn (+). If does not clear over next few days, will need tagged wbc scan. Will follow
--- NOTE | 2025-02-23 16:10 | NURSING ---
This RN was able to get pt up and walk around the unit twice. Pt been refusing to sit in the chair.
[2025-02-23] MEDS: MELATONIN 3 MG TABLET PO (22:48)
[2025-02-24] VITALS (8 sets, daily range): BP systolic 142–152; BP diastolic 74–85; PULSE 67–80; RESP 16–19; TEMP 36.4–37; O2SAT 96–100; BMI 33.9
[2025-02-24] MEDS: Cefazolin 2 GM in 0.9% Normal Saline (100mL Bag) 100 ML IV ×3 (05:28→21:31)
[2025-02-24] MEDS: Budesonide Respules 0.5 MG/2 ML AMPUL.NEB. INHALATION ×2 (07:02→20:20)
--- NOTE | 2025-02-24 07:12 | PN.HOSP_ITS ---
Reason for Visit Reason for Visit: Diagnoses Elevated white blood cell count, unspecified (02/17/25) Obesity, unspecified (02/17/25) Hypo-osmolality and hyponatremia (02/17/25) Unspecified dementia, unspecified severity, without behavioral disturbance, psychotic disturbance, mood disturbance, and anxiety (02/17/25) Other chronic pain (02/17/25) Metabolic encephalopathy (02/17/25) Low back pain, unspecified (02/17/25) Fever, unspecified (02/17/25) Bacteremia (02/17/25) Wedge compression fracture of T11-T12 vertebra, initial encounter for closed fracture (02/17/25) Subjective Subjective No issues overnight. Feeling well. Objective Data Objective Data Vital Signs: Vital Signs Temp Pulse Resp BP Pulse Ox O2 Del Method 36.4 C L 71 16 148/82 H 100 Room Air 02/24/25 02:18 02/24/25 02:18 02/24/25 02:18 02/24/25 02:18 02/24/25 02:18 02/24/25 02:18 Oxygen Delivery Method Room Air Weight: 95.7 kg Body Mass Index (BMI) 33.9 Intake & Output: Intake and Output for Last 24 Hours 02/22/25 02/23/25 02/24/25 23:59 23:59 23:59 Intake Total 2770.00 / 2770.00 3242.08 / 3242.08 1120 / 1120 Balance 2770.00 / 2770.00 3242.08 / 3242.08 1120 / 1120 Lab / Micro Data 02/23/25 05:41 02/23/25 05:41 Labs: Laboratory Results - last 24 hr 02/23/25 05:41: Sodium 133, Potassium 4.2, Chloride 101, Carbon Dioxide 23.1, Anion Gap 9, BUN 6, Creatinine 0.45 L, Estim Creat Clear Calc 76.67, Est GFR (MDRD) Non-Af 103, BUN/Creatinine Ratio 13.5, Glucose 105 H, Calcium 8.5 Micro: Microbiology 02/21/25 07:45 Blood Culture (Wb) - Anticubital Right Blood Culture - Preliminary Staphylococcus aureus 02/20/25 09:19 Blood Culture (Wb) - Anticubital Right Blood Culture - Final Staphylococcus aureus 02/19/25 09:50 Blood Culture (Wb) - Anticubital Left Blood Culture - Final Staphylococcus aureus 02/17/25 21:50 Blood Culture (Wb) - Left Hand Blood Culture - Final Staphylococcus aureus 02/17/25 21:10 Blood Culture (Wb) - Left Hand Bacteria Detection (PCR) - Final Staphylococcus aureus 02/17/25 21:10 Blood Culture (Wb) - Left Hand Blood Culture - Final Staphylococcus aureus 02/17/25 23:30 Mucosa - Nasopharyngeal Respiratory Panel (PCR) - Final Physical Exam Const alert and no apparent distress Constitutional Narrative: Up in bed. Nontoxic. HEENT head/scalp atraumatic and moist oral mucous membranes Resp normal respiratory effort and no retractions Extremity normal to inspection and no clubbing, cyanosis or edema Neuro Sensorium / Orientation: awake and alert Assessment & Plan Assessment/Plan (1) Bacteremia: PLAN: S. aureus, MSSA; unclear source. 2 of 2 positive on 02/17, positive on 02/19, 02/20 and 02/21 (gram stain for GPC in clusters so far). Repeat blood cultures 02/22 and and pending. unclear source UA negative, therefore there is no UTI at this time. ID following. TTE shows an EF 60% w/o vegetation. DALILA performed today rather than the . Negative for any vegetation. Abx with cefazolin PLAN: Plan Chronic conditions: * HLP: statin * HTN: atenolol, lisinopril * hypothyroidism: levothyroxine. TSH WNL. VTE prophylaxis: LMWH. Charges/Coding Visit Charges Inpatient E&M: 36056 Subs Hosp L1
[2025-02-24] MEDS: Lactobacillis Acidophilus 1 CAP PO ×4 (09:20→21:31)
[2025-02-24] MEDS: Na Biphos/Potassium Phosphate PACKET 1 PACKET PO ×2 (09:21→21:32)
[2025-02-24] MEDS: MELATONIN 3 MG TABLET PO (21:32)
[2025-02-25] VITALS (8 sets, daily range): BP systolic 137–155; BP diastolic 74–86; PULSE 62–78; RESP 14–20; TEMP 36.6–37; O2SAT 95–99; BMI 31.9
[2025-02-25] MEDS: Cefazolin 2 GM in 0.9% Normal Saline (100mL Bag) 100 ML IV ×3 (05:19→21:49)
[2025-02-25 06:13] LABS: Anion Gap 10 (5-15); BUN 10 mg/dL (4-19); BUN/Creat Ratio 17.0 RATIO (10-20); Calcium,Total 9.1 mg/dL (7.6-11.0); Carbon Dioxide 23.9 mmol/L (21.0-32.0); Chloride 99 mmol/L (98-108); Estimated Creatinine Clearance 74.02 ml/min (50-250); Glucose 98 mg/dL (70-99); Potassium 4.3 mmol/L (3.3-5.1)
[2025-02-25] MEDS: Budesonide Respules 0.5 MG/2 ML AMPUL.NEB. INHALATION ×2 (07:11→20:35)
--- NOTE | 2025-02-25 07:20 | PN.HOSP_ITS ---
Reason for Visit Reason for Visit: Diagnoses Elevated white blood cell count, unspecified (02/17/25) Obesity, unspecified (02/17/25) Hypo-osmolality and hyponatremia (02/17/25) Unspecified dementia, unspecified severity, without behavioral disturbance, psychotic disturbance, mood disturbance, and anxiety (02/17/25) Other chronic pain (02/17/25) Metabolic encephalopathy (02/17/25) Low back pain, unspecified (02/17/25) Fever, unspecified (02/17/25) Bacteremia (02/17/25) Wedge compression fracture of T11-T12 vertebra, initial encounter for closed fracture (02/17/25) Subjective Subjective Feeling well. No new complaints. Objective Data Objective Data Vital Signs: Vital Signs Temp Pulse Resp BP Pulse Ox O2 Del Method 36.6 C 62 17 137/83 H 97 Room Air 02/25/25 02:50 02/25/25 02:50 02/25/25 02:50 02/25/25 02:50 02/25/25 02:53 02/25/25 02:53 Oxygen Delivery Method Room Air Weight: 90.2 kg Body Mass Index (BMI) 31.9 Intake & Output: Intake and Output for Last 24 Hours 02/23/25 02/24/25 02/25/25 23:59 23:59 23:59 Intake Total 3242.08 / 3242.08 3290 / 3290 410 / 410 Balance 3242.08 / 3242.08 3290 / 3290 410 / 410 Lab / Micro Data 02/23/25 05:41 02/25/25 05:04 Labs: Laboratory Results - last 24 hr 02/25/25 05:04: Sodium 132 L, Potassium 4.3, Chloride 99, Carbon Dioxide 23.9, Anion Gap 10, BUN 10, Creatinine 0.57 L, Estim Creat Clear Calc 74.02, Est GFR (MDRD) Non-Af 98, BUN/Creatinine Ratio 17.0, Glucose 98, Calcium 9.1 Micro: Microbiology 02/22/25 21:05 Blood Culture (Wb) - Anticubital Right Blood Culture - Preliminary No growth in 48 hours. 02/21/25 07:45 Blood Culture (Wb) - Anticubital Right Blood Culture - Final Staphylococcus aureus 02/20/25 09:19 Blood Culture (Wb) - Anticubital Right Blood Culture - Final Staphylococcus aureus 02/19/25 09:50 Blood Culture (Wb) - Anticubital Left Blood Culture - Final Staphylococcus aureus 02/17/25 21:50 Blood Culture (Wb) - Left Hand Blood Culture - Final Staphylococcus aureus 02/17/25 21:10 Blood Culture (Wb) - Left Hand Bacteria Detection (PCR) - Final Staphylococcus aureus 02/17/25 21:10 Blood Culture (Wb) - Left Hand Blood Culture - Final Staphylococcus aureus 02/17/25 23:30 Mucosa - Nasopharyngeal Respiratory Panel (PCR) - Final Physical Exam Const alert and no apparent distress Resp normal respiratory effort, no retractions, no use of accessory muscles and clear to auscultation bilaterally Cardio regular rate, regular rhythm, S1 normal heart sound and S2 normal heart sound GI normal to inspection, nondistended, normoactive bowel sounds, soft to palpation, non-tender and non-distended Neuro Sensorium / Orientation: awake and alert Assessment & Plan Assessment/Plan (1) Bacteremia: PLAN: S. aureus, MSSA; unclear source. 2 of 2 positive on 02/17, positive on 02/19, 02/20 and 02/21 (gram stain for GPC in clusters so far). Repeat blood cultures 02/22 so far negative and and pending. unclear source UA negative, therefore there is no UTI at this time. ID following. TTE shows an EF 60% w/o vegetation. DALILA performed today rather than the . Negative for any vegetation. Abx with cefazolin PLAN: Plan Chronic conditions: * HLP: statin * HTN: atenolol, lisinopril * hypothyroidism: levothyroxine. TSH WNL. VTE prophylaxis: LMWH. Disposition: To be determined pending culture results and if any additional recommendations by infectious disease. Charges/Coding Visit Charges Inpatient E&M: 33780 Subs Hosp L2
[2025-02-25] MEDS: Lactobacillis Acidophilus 1 CAP PO ×4 (11:10→21:48)
[2025-02-25] MEDS: Na Biphos/Potassium Phosphate PACKET 1 PACKET PO ×2 (11:10→21:48)
[2025-02-25] MEDS: MELATONIN 3 MG TABLET PO (21:48)
[2025-02-26] MEDS: Cefazolin 2 GM in 0.9% Normal Saline (100mL Bag) 100 ML IV ×3 (05:03→21:36)
[2025-02-26 05:10] VITALS: BP 126/96; PULSE 66; RESP 17; TEMP 36.4; O2SAT 96
[2025-02-26 06:00] VITALS: BMI 31.7
[2025-02-26 06:18] LABS: Anion Gap 11 (5-15); BUN 12 mg/dL (4-19); BUN/Creat Ratio 20.2 RATIO (10-20); Calcium,Total 8.9 mg/dL (7.6-11.0); Carbon Dioxide 22.8 mmol/L (21.0-32.0); Chloride 97 mmol/L (98-108); Estimated Creatinine Clearance 74.02 ml/min (50-250); Glucose 92 mg/dL (70-99); Potassium 4.6 mmol/L (3.3-5.1)
--- NOTE | 2025-02-26 07:57 | PCM.PN.HOSP ---
Reason for Visit Chief Complaint: Fever, Back Pain and Confusion. Subjective Subjective Feeling well. Ready go home. Objective Data Objective Data Vital Signs: Vital Signs Temp Pulse Resp BP Pulse Ox O2 Del Method 36.4 C L 66 17 126/96 H 96 Room Air 02/26/25 05:10 02/26/25 05:10 02/26/25 05:10 02/26/25 05:10 02/26/25 05:10 02/26/25 05:10 Oxygen Delivery Method Room Air Weight: 89.5 kg Body Mass Index (BMI) 31.7 Intake & Output: Intake and Output for Last 24 Hours 02/24/25 02/25/25 02/26/25 23:59 23:59 23:59 Intake Total 3290 / 3290 1580 / 1780 510 / 510 Balance 3290 / 3290 1580 / 1780 510 / 510 Lab / Micro Data 02/23/25 05:41 02/26/25 05:00 Labs: Laboratory Results - last 24 hr 02/26/25 05:00: Sodium 131 L, Potassium 4.6, Chloride 97 L, Carbon Dioxide 22.8, Anion Gap 11, BUN 12, Creatinine 0.58 L, Estim Creat Clear Calc 74.02, Est GFR (MDRD) Non-Af 97, BUN/Creatinine Ratio 20.2 H, Glucose 92, Calcium 8.9 Micro: Microbiology 02/22/25 21:05 Blood Culture (Wb) - Anticubital Right Blood Culture - Preliminary No growth in 48 hours. 02/21/25 07:45 Blood Culture (Wb) - Anticubital Right Blood Culture - Final Staphylococcus aureus 02/20/25 09:19 Blood Culture (Wb) - Anticubital Right Blood Culture - Final Staphylococcus aureus 02/19/25 09:50 Blood Culture (Wb) - Anticubital Left Blood Culture - Final Staphylococcus aureus 02/17/25 21:50 Blood Culture (Wb) - Left Hand Blood Culture - Final Staphylococcus aureus 02/17/25 21:10 Blood Culture (Wb) - Left Hand Bacteria Detection (PCR) - Final Staphylococcus aureus 02/17/25 21:10 Blood Culture (Wb) - Left Hand Blood Culture - Final Staphylococcus aureus 02/17/25 23:30 Mucosa - Nasopharyngeal Respiratory Panel (PCR) - Final Physical Exam Const alert and no apparent distress HEENT head/scalp atraumatic and moist oral mucous membranes Resp normal respiratory effort and no retractions Assessment & Plan Assessment/Plan (1) Bacteremia: PLAN: S. aureus, MSSA; unclear source. 2 of 2 positive on 02/17, positive on 02/19, 02/20 and 02/21 (gram stain for GPC in clusters so far). Repeat blood cultures 02/22 so far negative and and pending. unclear source UA negative, therefore there is no UTI at this time. ID following. TTE shows an EF 60% w/o vegetation. DALILA performed today rather than the . Negative for any vegetation. Abx with cefazolin PLAN: Plan Chronic conditions: HLP: statin HTN: atenolol, lisinopril hypothyroidism: levothyroxine. TSH WNL. VTE prophylaxis: LMWH. Disposition: To be determined pending culture results and if any additional recommendations by infectious disease. Charges/Coding Visit Charges Inpatient E&M: 84976 Subs Hosp L2
[2025-02-26 10:27] LABS: Osmolality, Urine 319 mOsm/KG
[2025-02-26 11:12] VITALS: BP 158/72; PULSE 69; RESP 18; TEMP 36.8; O2SAT 97
[2025-02-26] MEDS: Na Biphos/Potassium Phosphate PACKET 1 PACKET PO ×2 (11:15→21:31)
[2025-02-26] MEDS: Lactobacillis Acidophilus 1 CAP PO ×4 (11:15→21:31)
--- NOTE | 2025-02-26 14:42 | PCM.PN.ID ---
Physical Exam Narrative Feeling well, no fever, no n/v/d Const alert and no apparent distress General Appearance: cooperative Resp normal air movement and clear to auscultation bilaterally Cardio regular rate and regular rhythm GI soft to palpation, non-tender and non-distended Skin no rashes or lesions noted ID ID: Route of nutrition/ use of supplements: [] Nutritional Intake: [] IV Site: [] Borden Catheter: [] Assessment & Plan Assessment/Plan (1) Bacteremia: PLAN: MSSA bacteremia, concern for recent spine injection as possible source but no issues at injection site. CT lumbar did not show any abscess. Given hardware in place, MRI likely would not be helpful. DALILA neg. She reports no issues with keflex or amox in past, will cont cefazolin. Bcx clear since 02/22. Will order picc and 4 weeks total cefazolin, stop date 03/22/25 with weekly labs, ID followup in 2 weeks. D/w special education case manager. Will follow
[2025-02-26 14:43] VITALS: BP 127/79; PULSE 68; RESP 16; TEMP 36.4; O2SAT 96
--- NOTE | 2025-02-26 15:02 | CASEMGMT ---
Discharge Planning A list of?HH providers including quality and resource use data and consistent with the patient's preferred geographic region, medical needs, and insurance network was created in [facility].? This list was provided to the RN MANDO. Barbara Prescott, Discharge Planning Asst.
--- NOTE | 2025-02-26 15:11 | CASEMGMT ---
ZIA GILMORE delivered HHC list, Pt chose [facility] as agency of choice. ZIA GILMORE called [facility], unable to accept at this time.
--- NOTE | 2025-02-26 16:50 | CASEMGMT ---
Addendum entered by Barbara Prescott 02/27/25 13:38: SON declined. ZIA GILMORE updated. Barbara Prescott DC Planning Asst. Addendum entered by Barbara Prescott 02/27/25 13:34: [facility], [facility], and [facility] have declined. Barbara Prescott DC Planning Asst. Original Note: Discharge Planning HH referral sent to [facility], S[facility], [facility], and [facility]. Barbara Prescott DC Planning Asst.
[2025-02-26 21:00] VITALS: PULSE 72; RESP 20
[2025-02-26] MEDS: Budesonide Respules 0.5 MG/2 ML AMPUL.NEB. INHALATION (21:00)
[2025-02-26 21:27] VITALS: BP 159/81; PULSE 66; RESP 16; TEMP 36.3; O2SAT 98
[2025-02-26] MEDS: MELATONIN 3 MG TABLET PO (21:30)
[2025-02-27 03:34] VITALS: BP 144/84; PULSE 70; RESP 16; TEMP 36.8; O2SAT 97
[2025-02-27] MEDS: Cefazolin 2 GM in 0.9% Normal Saline (100mL Bag) 100 ML IV ×2 (05:36→13:40)
[2025-02-27 05:52] VITALS: BMI 31.7
[2025-02-27] MEDS: Budesonide Respules 0.5 MG/2 ML AMPUL.NEB. INHALATION (06:48)
[2025-02-27 07:15] VITALS: PULSE 74; RESP 18
[2025-02-27 07:18] VITALS: O2SAT 96
--- NOTE | 2025-02-27 07:37 | PN.HOSP_ITS ---
Reason for Visit Chief Complaint: Fever, Back Pain and Confusion. Subjective Subjective Feeling well. Anxious to go home. Objective Data Objective Data Vital Signs: Vital Signs Temp Pulse Resp BP Pulse Ox O2 Del Method 36.8 C 74 18 144/84 H 96 Room Air 02/27/25 03:34 02/27/25 07:15 02/27/25 07:15 02/27/25 03:34 02/27/25 07:18 02/27/25 07:18 Oxygen Delivery Method Room Air Weight: 89.6 kg Body Mass Index (BMI) 31.7 Intake & Output: Intake and Output for Last 24 Hours 02/25/25 02/26/25 02/27/25 23:59 23:59 23:59 Intake Total 1580 / 1780 1080 / 1580 1110 / 1110 Balance 1580 / 1780 1080 / 1580 1110 / 1110 Lab / Micro Data 02/23/25 05:41 02/26/25 05:00 Labs: Laboratory Results - last 24 hr 02/26/25 09:00: Urine Osmolality 319, Ur Random Sodium 96 Micro: Microbiology 02/24/25 10:42 Blood Culture (Wb) - Left Wrist Blood Culture - Preliminary No growth in 48 hours. 02/23/25 11:10 Blood Culture (Wb) - Left Wrist Blood Culture - Preliminary No growth in 48 hours. 02/22/25 21:05 Blood Culture (Wb) - Anticubital Right Blood Culture - Preliminary No growth in 48 hours. 02/21/25 07:45 Blood Culture (Wb) - Anticubital Right Blood Culture - Final Staphylococcus aureus 02/20/25 09:19 Blood Culture (Wb) - Anticubital Right Blood Culture - Final Staphylococcus aureus 02/19/25 09:50 Blood Culture (Wb) - Anticubital Left Blood Culture - Final Staphylococcus aureus 02/17/25 21:50 Blood Culture (Wb) - Left Hand Blood Culture - Final Staphylococcus aureus 02/17/25 21:10 Blood Culture (Wb) - Left Hand Bacteria Detection (PCR) - Final Staphylococcus aureus 02/17/25 21:10 Blood Culture (Wb) - Left Hand Blood Culture - Final Staphylococcus aureus 02/17/25 23:30 Mucosa - Nasopharyngeal Respiratory Panel (PCR) - Final Physical Exam Const alert and no apparent distress HEENT head/scalp atraumatic and moist oral mucous membranes Resp normal respiratory effort, no retractions, no use of accessory muscles and clear to auscultation bilaterally Cardio regular rate, regular rhythm, S1 normal heart sound and S2 normal heart sound GI normal to inspection, nondistended, normoactive bowel sounds, soft to palpation, non-tender and non-distended Extremity normal to inspection Neuro Sensorium / Orientation: awake and alert Assessment & Plan Assessment/Plan (1) Bacteremia: PLAN: S. aureus, MSSA; unclear source. 2 of 2 positive on 02/17, positive on 02/19, 02/20 and 02/21 (gram stain for GPC in clusters so far). Repeat blood cultures 02/22 so far negative and and pending. unclear source UA negative, therefore there is no UTI at this time. ID following. TTE shows an EF 60% w/o vegetation. DALILA performed today rather than the . Negative for any vegetation. Abx with cefazolin. Patient to have PICC line and patient will be discharged with 4 weeks of IV cefazolin. Date of March 22. Patient follow-up with infectious disease in 2 weeks. PLAN: Plan Chronic conditions: * HLP: statin * HTN: atenolol, lisinopril * hypothyroidism: levothyroxine. TSH WNL. VTE prophylaxis: LMWH. Disposition: To home with home health care pending acceptance by a [facility] agency. Charges/Coding Visit Charges Inpatient E&M: 03851 Subs Hosp L1
[2025-02-27 09:04] VITALS: BP 152/81; PULSE 66; RESP 16; TEMP 36.8; O2SAT 99
[2025-02-27] MEDS: Lactobacillis Acidophilus 1 CAP PO ×2 (09:14→13:40)
[2025-02-27] MEDS: Na Biphos/Potassium Phosphate PACKET 1 PACKET PO (09:14)
--- NOTE | 2025-02-27 09:14 | CASEMGMT ---
Addendum entered by Priya Guerrero 02/27/25 15:39: Received tc back from Amarilis at [facility] Infusion, set pt up for Wednesday at 8:30am as no availability for Wednesday. ZIA GILMORE into pt room, pt, pt dtr and son aware. Pt son reports he feels comfortable with the IV infusion. No further needs at this time. Addendum entered by Priya Guerrero 02/27/25 14:06: ZIA GILMORE into pt room, pt son and dtr present. They are aware that pt will dc without HHC. Pt and family request [facility] infusion center for picc dressing and labs weekly. Pt dtr prefers a morning appt if available. TC to [facility] Infusion center, left requesting returned call. Addendum entered by Priya Guerrero 02/27/25 13:40: [facility] declined pt for care. [facility] nurse to educate pt and son at 2pm. ZIA GILMORE into pt room, pt reports her dtr on way to leaf size picker son to bring to the hospital for teaching. ZIA GILMORE to discuss picc care and labs post teaching. Updated hospitalist on plan. OK per ID to skip evening dose of med if needed if med is not delivered. Original Note: [facility], [facility] have declined pt for services. DC senior executive assistant to reach out to N. Message sent to [facility] to check availability for bedside teach with son.
--- NOTE | 2025-02-27 14:25 | DS.PCM_ITS ---
Providers Date of Admission: 02/17/25 Primary Care Physician: Dr. Mary Brunner MD Consultations 02/19/25 08:00 Consult: Pain Management Routine Consulting Provider: Elton Laurent Reason for Consult: recent injection EMERGENT Consult: No Notified: Yes Date Notified: 02/19/25 Time Notified: 11:02 Method of Notification: Answering Service 02/19/25 13:50 Consult: Infectious Disease Routine Consulting Provider: Ricki Aviles Reason for Consult: bacteremia EMERGENT Consult: No Notified: Yes Date Notified: 02/19/25 Time Notified: 13:50 Method of Notification: Text Reason For Visit: HYPONATREMIA, FEVER, BACK PAIN & ALTERED MENTAL Diagnosis Discharge Diagnosis (1) Bacteremia: Status: Acute Code(s): R78.81 - Bacteremia Plan: S. aureus, MSSA; unclear source. 2 of 2 positive on 02/17, positive on 02/19, 02/20 and 02/21 (gram stain for GPC in clusters so far). Repeat blood cultures 02/22 so far negative and and pending. unclear source UA negative, therefore there is no UTI at this time. ID following. TTE shows an EF 60% w/o vegetation. DALILA performed today rather than the . Negative for any vegetation. Abx with cefazolin. Patient to have PICC line and patient will be discharged with 4 weeks of IV cefazolin. Date of March 22. Patient follow-up with infectious disease in 2 weeks. Plan Chronic conditions: * HLP: statin * HTN: atenolol, lisinopril * hypothyroidism: levothyroxine. TSH WNL. VTE prophylaxis: LMWH. Disposition: To home with home health care pending acceptance by a [facility] agency. Medications at Discharge Home Medications atenolol 25 mg tablet 25 mg PO DAILY 07/07/17 montelukast 10 mg tablet 10 mg PO DAILY 07/07/17 atorvastatin 10 mg tablet 10 mg PO DAILY 07/15/17 gabapentin 300 mg capsule 300 mg PO 4X/DAY 07/15/17 fluticasone propionate 44 mcg/actuation HFA aerosol inhaler (Flovent HFA) 2 puff inhalation BID PRN Allergies 07/17/17 donepezil 10 mg tablet 10 mg PO DAILY 02/17/25 lisinopril 40 mg tablet 40 mg PO DAILY 02/17/25 meloxicam 7.5 mg tablet 7.5 mg PO DAILY 02/17/25 cyclobenzaprine 5 mg tablet 5 - 10 mg PO TID PRN PRN muscle spasm 02/20/25 cefazolin 2 gram intravenous solution 2 g IV Q8H 24 days 02/26/25 L.acidophil,salivari-Bifido bifidum-Strep thermoph 175 mg capsule 1 cap PO 4X/DAY #30 caps 02/27/25 acetaminophen 325 mg tablet 1,000 mg (3.0769 x 325 mg) PO TID #0 tabs 02/27/25 oxycodone 5 mg tablet 5 mg PO Q4H PRN PRN 7-10 pain 3 days #12 tabs 02/27/25 Hospital Course Operations None Procedures PICC line placement Summary of Care Provided Hospital Course: Greater than 30 minutes spent on discharge. This is a 69-year-old female presents with back pain and confusion. Patient send she was found to have MSSA bacteremia and had several rounds that were positive. Eventually patient was changed over to cefazolin. Patient was seen in consultation by Dr. Estrada who did not feel that is epidural for a month ago and recent SI joint infection were at all contributing. Patient did have a CAT scan that showed no acute process. 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 Patient is to follow-up Dr. Delgadillo at [facility]. The patient had subsequent cultures that were all negative. Given the unclear source, infectious disease is recommending 4 weeks of IV cefazolin with stop date of March 22. Patient had a PICC line placed. Patient's son will help learn the infusion patient will have that performed at home and go to infusion center weekly. Weight / BMI Weight Weight: 89.6 kg Body Mass Index (BMI) 31.7 ABG / Lab / Microbiology Data 02/23/25 05:41 02/26/25 05:00 Microbiology: Microbiology 02/24/25 10:42 Blood Culture (Wb) - Left Wrist Blood Culture - Preliminary No growth in 48 hours. 02/23/25 11:10 Blood Culture (Wb) - Left Wrist Blood Culture - Preliminary No growth in 48 hours. 02/22/25 21:05 Blood Culture (Wb) - Anticubital Right Blood Culture - Preliminary No growth in 48 hours. 02/21/25 07:45 Blood Culture (Wb) - Anticubital Right Blood Culture - Final Staphylococcus aureus 02/20/25 09:19 Blood Culture (Wb) - Anticubital Right Blood Culture - Final Staphylococcus aureus 02/19/25 09:50 Blood Culture (Wb) - Anticubital Left Blood Culture - Final Staphylococcus aureus 02/17/25 21:50 Blood Culture (Wb) - Left Hand Blood Culture - Final Staphylococcus aureus 02/17/25 21:10 Blood Culture (Wb) - Left Hand Bacteria Detection (PCR) - Final Staphylococcus aureus 02/17/25 21:10 Blood Culture (Wb) - Left Hand Blood Culture - Final Staphylococcus aureus 02/17/25 23:30 Mucosa - Nasopharyngeal Respiratory Panel (PCR) - Final D/C Instructions DC O2, CPAP, BIPAP Needs Home O2 Discharge instructions: No DC home with Oxygen: No Meaningful Use Info Meaningful Use Meaningful Use Diagnoses (Choose all that apply): None applicable Discharge Plan Admission Admit Date/Time: 02/17/25 21:29 Primary Reason for Your Visit: Bacteremia Attending Provider: Ozzy Arrington Primary Care Provider: Mary Brunner Consulting Providers: Maycol Walsh; Maycol Tubbs; Elton Laurent; Ricki Aviles Discharge Orders/Prescriptions Prescriptions: New cefazolin 2 gram recon soln 2 g IV Q8H 24 Days Rx Instructions: stop date 03/22/25. Dx: MSSA bacteremia. Weekly bmp and cbc. Fax to [phone]. Routine picc care per protocol. acetaminophen 325 mg Tablet 1,000 mg PO TID Qty: 0 0RF oxycodone 5 mg Tablet 5 mg PO Q4H PRN PRN (Reason: 7-10 pain) 3 Days Qty: 12 0RF L.acidoph,saliva-B.bif-S.therm 175 mg Capsule 1 cap PO 4X/DAY Qty: 30 0RF Continued atenolol 25 MG tablet 25 mg PO DAILY Patient Comments: HR montelukast 10 MG tablet 10 mg PO DAILY Patient Comments: allergies atorvastatin 10 MG tablet 10 mg PO DAILY gabapentin 300 MG capsule 300 mg PO 4X/DAY fluticasone propionate [Flovent HFA] 1 INHALER inhaler 2 puff inhalation BID PRN (Reason: Allergies) donepezil 10 mg tablet 10 mg PO DAILY meloxicam 7.5 mg tablet 7.5 mg PO DAILY lisinopril 40 mg tablet 40 mg PO DAILY cyclobenzaprine 5 mg tablet 5 - 10 mg PO TID PRN PRN (Reason: muscle spasm) Referrals / Follow Up: Prince Delgadillo MD [Non-Staff] - (next scheduled appointment. ) Mary Brunner MD [Primary Care Provider] - Within 2 Weeks Ricki Aviles MD [Med Staff - Active Staff] - Within 2 Weeks Disposition Disposition (needs filled in before D/C Order can be placed): Home, Self Care Charges/Coding Visit Charges Inpatient E&M: 69871 Disch Hosp >30min
[2025-02-27 14:59] VITALS: BP 147/80; PULSE 64; RESP 16; TEMP 36.8; O2SAT 100
[2025-02-27] MEDS: 0.9% Saline Lock 10 ML Syringe IV (15:06)
== END 2025-02-27 15:53 | disposition home or self-care (01) | DRG 871 ==
LOC: ED 20:26 → MS3 21:48
PROVIDERS: Internal Medicine; Admitting Provider Internal Medicine; Emergency Provider Emergency Medicine; PCP Internal Medicine
DX: R78.81 Bacteremia (principal); G93.41 Metabolic encephalopathy; E87.1 Hypo-osmolality and hyponatremia; F03.90 Unspecified dementia, unspecified severity, without behavioral disturbance, psychotic disturbance, mood disturbance, and anxiety; I10 Essential (primary) hypertension; E03.9 Hypothyroidism, unspecified; Z68.33 Body mass index [BMI] 33.0-33.9, adult; K21.9 Gastro-esophageal reflux disease without esophagitis; G62.9 Polyneuropathy, unspecified; M54.18 Radiculopathy, sacral and sacrococcygeal region; M96.1 Postlaminectomy syndrome, not elsewhere classified; E78.5 Hyperlipidemia, unspecified; J30.9 Allergic rhinitis, unspecified; M80.08XD Age-related osteoporosis with current pathological fracture, vertebra(e), subsequent encounter for fracture with routine healing; R50.9 Fever, unspecified; G89.29 Other chronic pain; B95.61 Methicillin susceptible Staphylococcus aureus infection as the cause of diseases classified elsewhere; Z79.890 Hormone replacement therapy; Z79.899 Other long term (current) drug therapy; Z88.0 Allergy status to penicillin; Z87.891 Personal history of nicotine dependence; E66.811 Obesity, class 1
CPT/HCPCS: 36415; 36569; 71046; 72132; 74177; 80048; 80053; 80307; 81001; 82077; 82607; 82746; 83605; 83735; 83930; 83935; 84100; 84300; 84443; 85025; 87040; 87077; 87149; 87186; 87633; 93306; 93312; 93320; 93325; 94640; 94668; 97116; 97162; 97166; 97530; 99285; P9612; Q9957; Q9967; A4216

== ENCOUNTER 2025-03-06 08:31 | Outpatient (CLI) | payer MEDICARE, SELFPAY ==
[2025-03-06 09:20] LABS: Hematocrit 29.0 % (37-47); Hemoglobin 9.4 g/dL (12.0-15.0); Mean Corp Hgb Conc 32.4 g/dL (32-36); Mean Corpuscular Volume 95.4 fL (81-99); Mean Platelet Vol. 9.7 fl (6.2-12.0); Platelet Count 372 K/mm3 (150-450); RBC Distribution Width CV 13.1 % (11.6-14.6); RBC Distribution Width SD 45.0 fl (35.1-43.9); Red Blood Count 3.04 M/mm3 (4.2-5.4); White Blood Count 7.9 K/mm3 (4.4-11.0)
[2025-03-06 09:54] LABS: Anion Gap 8 (5-15); BUN 14 mg/dL (4-19); BUN/Creat Ratio 17.7 RATIO (10-20); Calcium,Total 8.3 mg/dL (7.6-11.0); Carbon Dioxide 24.4 mmol/L (21.0-32.0); Chloride 95 mmol/L (98-108); Glucose 128 mg/dL (70-99); Potassium 4.4 mmol/L (3.3-5.1)
== END 2025-03-06 23:59 | disposition home or self-care (01) ==
LOC: MEDOUTP 08:31
PROVIDERS: PCP Internal Medicine; Referring Provider Internal Medicine Infectious Disease; Visit Provider Internal Medicine Infectious Disease
DX: R78.81 Bacteremia (principal); B95.61 Methicillin susceptible Staphylococcus aureus infection as the cause of diseases classified elsewhere
CPT/HCPCS: 36592; 80048; 85027; A4216

== ENCOUNTER 2025-03-13 07:47 | Outpatient (CLI) | payer MEDICARE, SELFPAY ==
[2025-03-13 08:38] LABS: Anion Gap 12 (5-15); BUN 8 mg/dL (4-19); BUN/Creat Ratio 12.5 RATIO (10-20); Calcium,Total 8.7 mg/dL (7.6-11.0); Carbon Dioxide 22.8 mmol/L (21.0-32.0); Chloride 93 mmol/L (98-108); Glucose 78 mg/dL (70-99); Potassium 4.0 mmol/L (3.3-5.1)
[2025-03-13 14:53] LABS: Hematocrit 30.7 % (37-47); Hemoglobin 10.0 g/dL (12.0-15.0); Immature Granulocytes Count 0.030 X10^3/uL (0.0-0.0); Mean Corp Hgb Conc 32.6 g/dL (32-36); Mean Corpuscular Volume 94.5 fL (81-99); Mean Platelet Vol. 9.9 fl (6.2-12.0); NRBC Flagged by Analyzer 0 % (0-5); Platelet Count 335 K/mm3 (150-450); RBC Distribution Width CV 13.0 % (11.6-14.6); RBC Distribution Width SD 45.1 fl (35.1-43.9); Red Blood Count 3.25 M/mm3 (4.2-5.4); White Blood Count 6.3 K/mm3 (4.4-11.0)
== END 2025-03-13 23:59 | disposition home or self-care (01) ==
LOC: MEDOUTP 07:47
PROVIDERS: PCP Internal Medicine; Referring Provider Internal Medicine Infectious Disease; Visit Provider Internal Medicine Infectious Disease
DX: R78.81 Bacteremia (principal); Z16.12 Extended spectrum beta lactamase (ESBL) resistance
CPT/HCPCS: 36592; 80048; 85025; A4216

== ENCOUNTER 2025-03-20 08:05 | Outpatient (CLI) | payer MEDICARE, SELFPAY ==
[2025-03-20 08:30] LABS: Hematocrit 30.4 % (37-47); Hemoglobin 10.0 g/dL (12.0-15.0); Mean Corp Hgb Conc 32.9 g/dL (32-36); Mean Corpuscular Volume 92.1 fL (81-99); Mean Platelet Vol. 9.2 fl (6.2-12.0); Platelet Count 328 K/mm3 (150-450); RBC Distribution Width CV 12.7 % (11.6-14.6); RBC Distribution Width SD 42.2 fl (35.1-43.9); Red Blood Count 3.30 M/mm3 (4.2-5.4); White Blood Count 6.4 K/mm3 (4.4-11.0)
[2025-03-20 08:54] LABS: Anion Gap 11 (5-15); BUN 11 mg/dL (4-19); BUN/Creat Ratio 18.2 RATIO (10-20); Calcium,Total 8.8 mg/dL (7.6-11.0); Carbon Dioxide 23.6 mmol/L (21.0-32.0); Chloride 91 mmol/L (98-108); Glucose 94 mg/dL (70-99); Potassium 4.3 mmol/L (3.3-5.1)
== END 2025-03-20 23:59 | disposition home or self-care (01) ==
LOC: MEDOUTP 08:05
PROVIDERS: PCP Internal Medicine; Referring Provider Internal Medicine Infectious Disease; Visit Provider Internal Medicine Infectious Disease
DX: R78.81 Bacteremia (principal); B95.61 Methicillin susceptible Staphylococcus aureus infection as the cause of diseases classified elsewhere
CPT/HCPCS: 36592; 80048; 85027; A4216

== ENCOUNTER 2025-03-23 10:25 | Outpatient (CLI) | payer MEDICARE, SELFPAY ==
[2025-03-23 11:04] VITALS: BP 110/62; PULSE 65; RESP 16; TEMP 35.7; O2SAT 100; BMI 29.3
== END 2025-03-23 23:59 | disposition home or self-care (01) ==
LOC: MEDOUTP 10:26
PROVIDERS: PCP Internal Medicine; Referring Provider Internal Medicine Infectious Disease; Visit Provider Internal Medicine Infectious Disease
DX: Z45.2 Encounter for adjustment and management of vascular access device (principal)
CPT/HCPCS: 96523; A4216